=== PATIENT | female | born 1970 | race Caucasian/White ===

== ENCOUNTER 2018-01-22 06:08 | Emergency (ER) | payer MEDICAID ==
--- OUTSIDE RECORDS SUMMARY | 2018-01-22 06:10 | XMS REPORT | Clinical Summary ---
:1970 Author Organization [facility] Address [address] [place] [address] Care Team Providers Name Role Phone Matthew Guardado DO Primary Care Provider Allergies Active Allergy Reactions Severity Noted Date Comments Iodine 04/25/2016 Ketorolac 04/25/2016 Sulfa (Sulfonamide Antibiotics) 04/25/2016 Current Medications No known medications Active Problems Not on file Social History Tobacco Use Types Packs/Day Years Used Date Former Smoker Alcohol Use Drinks/Week oz/Week Comments No Sex Assigned at Date Recorded Not on file Last Filed Vital Signs Not on file Plan of Treatment Health Maintenance Due Date Last Done Comments CERVICAL CANCER SCREENING 1990 INFLUENZA VACCINE 04/08/2018 Results Not on fileafter 01/21/2017 Insurance Payer Benefit Plan / Group Subscriber ID Type Phone Address [facility] xxxxxxxxx O Home: [id number] [phone] [place] [phone]
--- OUTSIDE RECORDS SUMMARY | 2018-01-22 06:11 | XMS REPORT ---
:1970 [facility] Address [address] [place] [address] [address] [place] [address] Care Team Providers Name Role Phone UNKNOWN, REFFERING Primary Care Provider Unavailable JOE CARVALHO M.D. Unavailable Unavailable ISIS HORAN Unavailable Unavailable Problems This patient has no known problems. Allergies, Adverse Reactions, Alerts This patient has no known allergies or adverse reactions. Medications This patient has no known medications. Encounters Start End Encounter Admission Attending Care Care Encounter Date/Time Date/Time Type Type Clinicians Facility Department ID 2017-05-22 Inpatient [facility] [id number] 16:23:00 2017-12-23 2017-12-23 Emergency [facility] [id number] 15:29:00 15:29:00 ISIS 2017-07-30 2017-07-30 Outpatient [facility] [id number] 12:09:00 12:09:00 2017-07-09 2017-07-09 Outpatient [facility] [id number] 00:01:00 00:01:00 2017-06-17 2017-06-17 Outpatient [facility] [id number] 18:46:00 18:46:00 2017-06-08 2017-06-08 Outpatient [facility] [id number] 00:01:00 00:01:00 2017-06-06 2017-06-06 Outpatient [facility] [id number] 21:11:00 21:11:00 Results Test Description Test Time Test Comments Text Results Atomic Results Result Comments Lipase 2017-12-27 01:00:00 Test Item Value Reference Range Comments Lipase (test code=LIP) 28 U/L 13-60 Comprehensive Metabolic [id number] 01:00:00 Test Item Value Reference Range Comments Sodium (test code=NA) 141 mmol/L 135-145 Potassium (test code=K) 4.2 mmol/L 3.5-5.1 Chloride (test code=CL) 101 mmol/L 98-105 Carbon Dioxide (test 23 mmol/L 22-29 code=CO2) Glucose (test code=GLU) 113 mg/dL 70-115 Blood Urea Nitrogen 8 mg/dL 6-20 (test code=BUN) Creatinine (test 0.6 mg/dL 0.5-0.9 code=CREAT) Calcium (test code=CA) 9.3 mg/dL 8.3-10.5 Prot Total (test 7.2 g/dL 6.4-8.3 code=TP) Albumin (test code=ALB) 4.5 g/dL 3.5-5.2 A/G Ratio (test 1.7 Ratio code=AGRATIO) Globulin (test 2.7 2.9-3.1 code=GLOB) Bili Total (test 0.3 mg/dL 0.1-0.9 code=TBIL) Alk Phos (test 93 U/L 35-104 code=APHOS) AST (test code=AST) 42 U/L 1-32 ALT (test code=ALT) 77 U/L 1-33 BUN/Creatinine Ratio 13.3 (test code=BCRATIO) Anion Gap (test 17 mmol/L 7-16 code=AGAP) Estimated GFR (test >60 mL/min/1.73m2 eGFR (estimated Glomerular code=GFR) Filtration Rate) is an estimated value,calculated from the patient's serum creatinine using the MDRD equation.It is NOT the patient's actual GFR. The eGFR provides a more clinicallyuseful measure of kidney disease than serum creatinine alone.This calculation takes sex and race into account, if the informationis provided. If the race is not provided, and the patient isAfrican-Emirati, multiply by 1.212. If sex is not provided, and thepatient is female, multiply by 0.742. Results for patients <18 years ofage have not been validated by the MDRD study and should be interpretedwith caution.eGFR Result Interpretation:eGFR > or=60 is in the Normal RangeeGFR < 60 may mean kidney diseaseeGFR < 15 may mean kidney failureRanges recommended by the National Kidney Foundation,http://nkdep.nih .gov BHCG, Urine, [id number] 00:45:00 Test Item Value Reference Range Comments Preg Qual [Ur] (test code=HUHCG) Negative Negative CBC with [id number] 00:44:00 Test Item Value Reference Range Comments WBC (test code=WBC) 7.5 K/cumm 4.4-10.5 RBC (test code=RBC) 4.94 M/cumm 3.75-5.20 Hemoglobin (test code=HGB) 13.0 gm/dL 12.2-14.8 Hematocrit (test code=HCT) 39.3 % 36.5-44.4 MCV (test code=MCV) 79.5 fL 80-100 MCH (test code=MCH) 26.3 pg 27.0-32.5 MCHC (test code=MCHC) 33.0 g/dL 32.0-37.5 RDW (test code=RDW) 15.9 % 11.5-14.5 Platelet Count (test code=PLTCT) 319 K/cumm 140-440 MPV (test code=MPV) 7.4 fL Diff Method (test code=DIFFM) Auto Neutrophil (test code=NEUT) 54.4 % 36-70 Lymphocyte (test code=LYMPH) 34.7 % 12-44 Monocyte (test code=MONO) 5.2 % 0-11 Eosinophil (test code=EOS) 5.1 % 0-7 Basophil (test code=BASO) 0.7 % 0-2 Neutro Abs (test code=ANEUT) 4.1 K/cumm 1.6-7.4 Lymph Abs (test code=ALYMPH) 2.6 K/cumm 0.5-4.6 [place] Abs (test code=AMONO) 0.4 K/cumm 0.0-1.2 Eos Abs (test code=AEOS) 0.38 K/cumm 0.00-0.74 Baso Abs (test code=ABASO) 0.1 K/cumm 0.00-0.21 Urinalysis [id number] 00:32:00 Test Item Value Reference Range Comments Color (test code=COLOR) Yellow Yellow,Straw,Pl yellow Clarity (test code=CLAR) Sl Cloudy Clear Specific [place] (test code=SPGR) 1.016 1.001-1.035 pH (test code=PH) 8.0 5.0-9.0 Ketone (test code=KET) 5 mg/dL Negative Glucose (test code=GLUCUR) Negative mg/dL Negative Protein (test code=PROT) Negative mg/dL Negative Bilirubin (test code=BILI) Negative mg/dL Negative Occult Blood (test code=UDOB) Negative Negative Urobilinogen (test code=UROB) 0.2 mg/dL 0.2-1.0 Nitrite (test code=NIT) Positive Negative Leuk Esterase (test code=LEUK) Negative Negative Micros Exam (test code=MEXAM) Indicated Epithelial Cells (test code=EPI) 20-29 /LPF 0-30 WBC, Urine (test code=UWBC) 0-1 /HPF 0-5 RBC, Urine (test code=URBC) None Seen /HPF 0-5 Bacteria (test code=BACT) Many /HPF [id number] 17:42:00 Test Item Value Reference Range Comments Lipase (test code=LIP) 28 U/L 13-60 Comprehensive Metabolic [id number] 17:42:00 Test Item Value Reference Range Comments Sodium (test code=NA) 143 mmol/L 135-145 Potassium (test code=K) 3.7 mmol/L 3.5-5.1 Chloride (test code=CL) 103 mmol/L 98-105 Carbon Dioxide (test 27 mmol/L 22-29 code=CO2) Glucose (test code=GLU) 123 mg/dL 70-115 Blood Urea Nitrogen 10 mg/dL 6-20 (test code=BUN) Creatinine (test 0.6 mg/dL 0.5-0.9 code=CREAT) Calcium (test code=CA) 9.3 mg/dL 8.3-10.5 Prot Total (test 6.9 g/dL 6.4-8.3 code=TP) Albumin (test code=ALB) 4.3 g/dL 3.5-5.2 A/G Ratio (test 1.7 Ratio code=AGRATIO) Globulin (test 2.6 2.9-3.1 code=GLOB) Bili Total (test 0.3 mg/dL 0.1-0.9 code=TBIL) Alk Phos (test 84 U/L 35-104 code=APHOS) AST (test code=AST) 52 U/L 1-32 ALT (test code=ALT) 84 U/L 1-33 BUN/Creatinine Ratio 16.7 (test code=BCRATIO) Anion Gap (test 13 mmol/L 7-16 code=AGAP) Estimated GFR (test >60 mL/min/1.73m2 eGFR (estimated Glomerular code=GFR) Filtration Rate) is an estimated value,calculated from the patient's serum creatinine using the MDRD equation.It is NOT the patient's actual GFR. The eGFR provides a more clinicallyuseful measure of kidney disease than serum creatinine alone.This calculation takes sex and race into account, if the informationis provided. If the race is not provided, and the patient isAfrican-Emirati, multiply by 1.212. If sex is not provided, and thepatient is female, multiply by 0.742. Results for patients <18 years ofage have not been validated by the MDRD study and should be interpretedwith caution.eGFR Result Interpretation:eGFR > or=60 is in the Normal RangeeGFR < 60 may mean kidney diseaseeGFR < 15 may mean kidney failureRanges recommended by the National Kidney Foundation,http://nkdep.nih .gov CBC with [id number] 17:00:00 Test Item Value Reference Range Comments WBC (test code=WBC) 5.9 K/cumm 4.4-10.5 RBC (test code=RBC) 4.66 M/cumm 3.75-5.20 Hemoglobin (test code=HGB) 11.9 gm/dL 12.2-14.8 Hematocrit (test code=HCT) 36.6 % 36.5-44.4 MCV (test code=MCV) 78.5 fL 80-100 MCH (test code=MCH) 25.6 pg 27.0-32.5 MCHC (test code=MCHC) 32.6 g/dL 32.0-37.5 RDW (test code=RDW) 15.7 % 11.5-14.5 Platelet Count (test code=PLTCT) 329 K/cumm 140-440 MPV (test code=MPV) 7.3 fL Diff Method (test code=DIFFM) Auto Neutrophil (test code=NEUT) 55.7 % 36-70 Lymphocyte (test code=LYMPH) 33.5 % 12-44 Monocyte (test code=MONO) 4.7 % 0-11 Eosinophil (test code=EOS) 5.7 % 0-7 Basophil (test code=BASO) 0.4 % 0-2 Neutro Abs (test code=ANEUT) 3.3 K/cumm 1.6-7.4 Lymph Abs (test code=ALYMPH) 2.0 K/cumm 0.5-4.6 [place] Abs (test code=AMONO) 0.3 K/cumm 0.0-1.2 Eos Abs (test code=AEOS) 0.34 K/cumm 0.00-0.74 Baso Abs (test code=ABASO) 0.0 K/cumm 0.00-0.21 48239& PELVIS W/O [id number] 16:47:19CT OF THE ABDOMEN AND PELVIS WITHOUT CONTRASTLocation code: R 16CLINICAL HISTORY: Abdominal painCOMPARISON: None available.TECHNIQUE:5 mm contiguous axial images were obtained from the diaphragmatic domethrough the symphysis pubis. No contrast was administered per routinerenal stone protocol. Axial images were reformatted to create coronalreconstructions.One or more of the following dose reduction techniqueswere used: Automated exposure control, adjustment of the mA and/or kVaccording to patient size, and/or utilization of iterativereconstruction technique. DLP: 1611 mGy-cmFINDINGS: ABDOMEN The visualized structures of the lower thorax are unremarkable.There is fatty infiltration of the liver. No discrete mass lesions areidentified on noncontrast imaging. Unopacified spleen, pancreas, andkidneys are within normal limits. There is no hydronephrosis orhydroureter or urolithiasis. There is a small nodule in the rightadrenal gland measuring 13 mm demonstrating low-attenuation favored torepresent adenoma. There is also minimal nodularity of the left adrenalgland. There is surgical absence of the gallbladder.Postoperative changes from gastric bypass are identified. There is noobstruction. Anastomoses are within normal limits. Minimal fatinfiltration is noted adjacent to the proximal jejunal loopwhich mayrelate to postsurgical changes.Remaining small and large bowel loops are normal in caliber.Normalcaliber appendix is identified in the right lower quadrant.No mesenteric or retroperitoneal lymphadenopathy is identified. No freeintraperitoneal air or fluid is seen.FINDINGS: PELVIS Urinary bladder is mildly distended. There is no bladder wallthickening. There is surgical absence of the uterus. No discrete masslesions are identified in the adnexa. There is no pelvic or inguinaladenopathy. Spondylosis is noted in the lower lumbar spine. No discreteosteolytic or osteosclerotic lesions are seen.IMPRESSION:1. Fatty infiltration of the liver. Please correlate with hepaticprofile.2. Postsurgicalchanges from gastric bypass.3. Nodules within the adrenal glands favored to represent smalladenomas.4. Surgical absence of the gallbladder and uterus.POC Glucose, [id number] 07:45:00 Test Item Value Reference Range Comments POC Glucose (test 158 mg/dL 70-115 Notify RN or MDIf you consider code=POCGLUC) your patient critically ill, the [place] Accu-Chek InformII metershould not be used for Glucose determinations.Draw a venous Glucose and send to the Main Lab for Analysis. POC Glucose, [id number] 20:31:00 Test Item Value Reference Range Comments POC Glucose (test 167 mg/dL 70-115 If you consider your patient code=POCGLUC) critically ill, the [place] Accu-Chek InformII metershould not be used for Glucose determinations.Draw a venous Glucose and send to the Main Lab for Analysis. POC Glucose, [id number] 16:44:00 Test Item Value Reference Range Comments POC Glucose (test 148 mg/dL 70-115 If you consider your patient code=POCGLUC) critically ill, the [place] Accu-Chek InformII metershould not be used for Glucose determinations.Draw a venous Glucose and send to the Main Lab for Analysis. POC Glucose, [id number] 11:25:00 Test Item Value Reference Range Comments POC Glucose (test 173 mg/dL 70-115 If you consider your patient code=POCGLUC) critically ill, the [place] Accu-Chek InformII metershould not be used for Glucose determinations.Draw a venous Glucose and send to the Main Lab for Analysis. POC Glucose, [id number] 07:30:00 Test Item Value Reference Range Comments POC Glucose (test 191 mg/dL 70-115 If you consider your patient code=POCGLUC) critically ill, the [place] Accu-Chek InformII metershould not be used for Glucose determinations.Draw a venous Glucose and send to the Main Lab for Analysis. POC Glucose, [id number] 06:33:00 Test Item Value Reference Range Comments POC Glucose (test 181 mg/dL 70-115 If you consider your patient code=POCGLUC) critically ill, the [place] Accu-Chek InformII metershould not be used for Glucose determinations.Draw a venous Glucose and send to the Main Lab for Analysis. Comprehensive Metabolic [id number] 05:28:00 Test Item Value Reference Range Comments Sodium (test code=NA) 139 mmol/L 135-145 Potassium (test code=K) 4.4 mmol/L 3.5-5.1 Chloride (test code=CL) 101 mmol/L 98-105 Carbon Dioxide (test 28 mmol/L 22-29 code=CO2) Glucose (test code=GLU) 195 mg/dL 70-115 Blood Urea Nitrogen 3 mg/dL 6-20 (test code=BUN) Creatinine (test 0.6 mg/dL 0.5-0.9 code=CREAT) Calcium (test code=CA) 8.8 mg/dL 8.3-10.5 Prot Total (test 6.2 g/dL 6.4-8.3 code=TP) Albumin (test code=ALB) 3.6 g/dL 3.5-5.2 A/G Ratio (test 1.4 Ratio code=AGRATIO) Globulin (test 2.6 2.9-3.1 code=GLOB) Bili Total (test 0.3 mg/dL 0.1-0.9 code=TBIL) Alk Phos (test 119 U/L 35-104 code=APHOS) AST (test code=AST) 39 U/L 1-32 ALT (test code=ALT) 86 U/L 1-33 BUN/Creatinine Ratio 5.0 (test code=BCRATIO) Anion Gap (test 10 mmol/L 7-16 code=AGAP) Estimated GFR (test >60 mL/min/1.73m2 eGFR (estimated Glomerular code=GFR) Filtration Rate) is an estimated value,calculated from the patient's serum creatinine using the MDRD equation.It is NOT the patient's actual GFR. The eGFR provides a more clinicallyuseful measure of kidney disease than serum creatinine alone.This calculation takes sex and race into account, if the informationis provided. If the race is not provided, and the patient isAfrican-Emir[place], multiply by 1.212. If sex is not provided, and thepatient is female, multiply by 0.742. Results for patients <18 years ofage have not been validated by the MDRD study and should be interpretedwith caution.eGFR Result Interpretation:eGFR > or=60 is in the Normal RangeeGFR < 60 may mean kidney diseaseeGFR < 15 may mean kidney failureRanges recommended by the National Kidney Foundation,http://nkdep.nih .gov CBC with [id number] 05:03:00 Test Item Value Reference Range Comments WBC (test code=WBC) 5.1 K/cumm 4.4-10.5 RBC (test code=RBC) 4.17 M/cumm 3.75-5.20 Hemoglobin (test code=HGB) 11.2 gm/dL 12.2-14.8 Hematocrit (test code=HCT) 32.8 % 36.5-44.4 MCV (test code=MCV) 78.8 fL 80-100 MCH (test code=MCH) 26.8 pg 27.0-32.5 MCHC (test code=MCHC) 34.0 g/dL 32.0-37.5 RDW (test code=RDW) 14.4 % 11.5-14.5 Platelet Count (test code=PLTCT) 267 K/cumm 140-440 MPV (test code=MPV) 6.8 fL Diff Method (test code=DIFFM) Auto Neutrophil (test code=NEUT) 58.2 % 36-70 Lymphocyte (test code=LYMPH) 31.0 % 12-44 Monocyte (test code=MONO) 5.5 % 0-11 Eosinophil (test code=EOS) 4.6 % 0-7 Basophil (test code=BASO) 0.7 % 0-2 Neutro Abs (test code=ANEUT) 2.9 K/cumm 1.6-7.4 Lymph Abs (test code=ALYMPH) 1.6 K/cumm 0.5-4.6 [place] Abs (test code=AMONO) 0.3 K/cumm 0.0-1.2 Eos Abs (test code=AEOS) 0.23 K/cumm 0.00-0.74 Baso Abs (test code=ABASO) 0.0 K/cumm 0.00-0.21 POC Glucose, [id number] 21:57:00 Test Item Value Reference Range Comments POC Glucose (test 176 mg/dL 70-115 If you consider your patient code=POCGLUC) critically ill, the [place] Accu-Chek InformII metershould not be used for Glucose determinations.Draw a venous Glucose and send to the Main Lab for Analysis. POC Glucose, [id number] 16:25:00 Test Item Value Reference Range Comments POC Glucose (test 148 mg/dL 70-115 If you consider your patient code=POCGLUC) critically ill, the [place] Accu-Chek InformII metershould not be used for Glucose determinations.Draw a venous Glucose and send to the Main Lab for Analysis. CT NECK SOFT TISSUE WO [id number] 15:49:06Exam: CT soft tissue neck withoutcontrast.Location: O9Fsaeaqi: Neck painTechnique: Unenhanced spiral slices were taken through the neck.Sagittal and coronal reformations were performed. One or more ofthefollowing radiation dose reduction techniques was used: Automaticexposure control, adjustment of mA and/or KV according to the patient'ssize, and/or utilization of iterative reconstruction technique. Findings:The parotid space, carotid space, seasonal customer service associate space, prevertebral spaceand the fossa of Rosenm?ller are normal. The oral and hypopharynx areunremarkable.The salivary glands are normal. No sialadenitis or sialolithiasis isseen.The larynx and trachea are normal. The cervical and visualized thoracicesophagus is unremarkable. No lymphadenopathy is present in eitherjugular or either posterior chain.The thyroid gland is normal. The soft tissues are unremarkable.Impression:Unremarkable exam.CT CHEST W/O [id number] 15:45:29Exam: CT thorax withoutcontrast.Location: [id number]: Chest painTechnique: Unenhancedspiral slices were taken from the apices of thelungs to the upper abdomen. Sagittal and coronal reformations wereperformed. 100 cc of Isovue-300 were used. One or more of the followingradiation dose reduction techniques was used: Automatic exposurecontrol, adjustment of mA and/or KV according to the patient's size,and/or utilization of iterative reconstruction technique. Findings:Consolidation is present in the leftlower lobe. Some subsegmentalatelectasis is present in the lingula. The remainder of the lungs isclear. The pulmonary vasculature is normal. No pulmonary congestion orarterial hypertension is seen.The mediastinum and the pulmonary mike are normal. No lymphadenopathy ispresent. The heart size is normal. No pericardial effusion is seen.The visualized upper abdominal organs are unremarkable. The patient isundergone a previous left main procedure.No incidental thyroid nodules are notedImpression: Left lower lobe pneumonia.POC Glucose, [id number] 11:54:00 Test Item Value Reference Range Comments POC Glucose (test 200 mg/dL 70-115 If you consider your patient code=POCGLUC) critically ill, the [place] Accu-Chek InformII metershould not be used for Glucose determinations.Draw a venous Glucose and send to the Main Lab for Analysis. POC Glucose, [id number] 07:17:00 Test Item Value Reference Range Comments POC Glucose (test 180 mg/dL 70-115 If you consider your patient code=POCGLUC) critically ill, the [place] Accu-Chek InformII metershould not be used for Glucose determinations.Draw a venous Glucose and send to the Main Lab for Analysis. Comprehensive Metabolic [id number] 06:33:00 Test Item Value Reference Range Comments Sodium (test code=NA) 138 mmol/L 135-145 Potassium (test code=K) 4.2 mmol/L 3.5-5.1 Chloride (test code=CL) 100 mmol/L 98-105 Carbon Dioxide (test 26 mmol/L 22-29 code=CO2) Glucose (test code=GLU) 179 mg/dL 70-115 Blood Urea Nitrogen 4 mg/dL 6-20 (test code=BUN) Creatinine (test 0.6 mg/dL 0.5-0.9 code=CREAT) Calcium (test code=CA) 9.3 mg/dL 8.3-10.5 Prot Total (test 6.4 g/dL 6.4-8.3 code=TP) Albumin (test code=ALB) 3.8 g/dL 3.5-5.2 A/G Ratio (test 1.5 Ratio code=AGRATIO) Globulin (test 2.6 2.9-3.1 code=GLOB) Bili Total (test 0.3 mg/dL 0.1-0.9 code=TBIL) Alk Phos (test 125 U/L 35-104 code=APHOS) AST (test code=AST) 63 U/L 1-32 ALT (test code=ALT) 92 U/L 1-33 BUN/Creatinine Ratio 6.7 (test code=BCRATIO) Anion Gap (test 12 mmol/L 7-16 code=AGAP) Estimated GFR (test >60 mL/min/1.73m2 eGFR (estimated Glomerular code=GFR) Filtration Rate) is an estimated value,calculated from the patient's serum creatinine using the MDRD equation.It is NOT the patient's actual GFR. The eGFR provides a more clinicallyuseful measure of kidney disease than serum creatinine alone.This calculation takes sex and race into account, if the informationis provided. If the race is not provided, and the patient isAfrican-Emir[place], multiply by 1.212. If sex is not provided, and thepatient is female, multiply by 0.742. Results for patients <18 years ofage have not been validated by the MDRD study and should be interpretedwith caution.eGFR Result Interpretation:eGFR > or=60 is in the Normal RangeeGFR < 60 may mean kidney diseaseeGFR < 15 may mean kidney failureRanges recommended by the National Kidney Foundation,http://nkdep.nih .gov CBC with [id number] 06:13:00 Test Item Value Reference Range Comments WBC (test code=WBC) 5.5 K/cumm 4.4-10.5 RBC (test code=RBC) 4.51 M/cumm 3.75-5.20 Hemoglobin (test code=HGB) 11.9 gm/dL 12.2-14.8 Hematocrit (test code=HCT) 35.8 % 36.5-44.4 MCV (test code=MCV) 79.4 fL 80-100 MCH (test code=MCH) 26.4 pg 27.0-32.5 MCHC (test code=MCHC) 33.2 g/dL 32.0-37.5 RDW (test code=RDW) 14.6 % 11.5-14.5 Platelet Count (test code=PLTCT) 257 K/cumm 140-440 MPV (test code=MPV) 6.7 fL Diff Method (test code=DIFFM) Auto Neutrophil (test code=NEUT) 59.4 % 36-70 Lymphocyte (test code=LYMPH) 28.3 % 12-44 Monocyte (test code=MONO) 6.2 % 0-11 Eosinophil (test code=EOS) 5.6 % 0-7 Basophil (test code=BASO) 0.4 % 0-2 Neutro Abs (test code=ANEUT) 3.3 K/cumm 1.6-7.4 Lymph Abs (test code=ALYMPH) 1.6 K/cumm 0.5-4.6 [place] Abs (test code=AMONO) 0.4 K/cumm 0.0-1.2 Eos Abs (test code=AEOS) 0.31 K/cumm 0.00-0.74 Baso Abs (test code=ABASO) 0.0 K/cumm 0.00-0.21 POC Glucose, [id number] 23:37:00 Test Item Value Reference Range Comments POC Glucose (test 152 mg/dL 70-115 If you consider your patient code=POCGLUC) critically ill, the [place] Accu-Chek InformII metershould not be used for Glucose determinations.Draw a venous Glucose and send to the Main Lab for Analysis. POC Glucose, [id number] 17:16:00 Test Item Value Reference Range Comments POC Glucose (test 170 mg/dL 70-115 If you consider your patient code=POCGLUC) critically ill, the [place] Accu-Chek InformII metershould not be used for Glucose determinations.Draw a venous Glucose and send to the Main Lab for Analysis. D-Dimer, [id number] 15:56:00 Test Item Value Reference Range Comments D-Dimer, Quant (test code=DDQNT) 1610 ng/mL 0-500 45844&PERFUS [id number] 14:47:54Dictation location: R 16Clinical indication: Shortness of breath, left shoulder painFindings: Afterthe administration of 10 mCi of Xe-133 inhalation gas, posteriorventilation images were obtained which show good ventilation to bothlungs with normal washout.Following ventilation 3mCi of technetium 99MAA was injectedintravenously and multiple spot static perfusion images were obtained.There is good perfusion to both lungs without evidence of segmental orsubsegmental mismatched defects. The above findings have a lowprobability of pulmonary emboli.IMPRESSION:Low probability of pulmonary emboli.US DUPLX EXT VEINS COMPRS, [id number] 12:42:18DICTATION LOCATION: [id number]: DVTCOMPARISON: None available.TECHNIQUE: Duplex sonography of theright lower extremity with color andspectral Doppler, with and without compression. FINDINGS:There is normal compressibility and augmentation of the right commonfemoral, superficial femoral and popliteal veins. Color doppler flowwas visualized in the right anterior and posterior tibial veins. No calfvein thrombosis is detected.Doppler examination shows normal spontaneous and phasic flow.There is a2.5 x 0.8 x 1.8 cm complex fluid collection in the rightpopliteal fossa.IMPRESSION: No evidence of deep venous thrombosis in the visualized venous segmentsof the right lower extremity.Small right Gaspar's cyst.XR CHEST 2V, [id number] 11:43:22EXAM: Chest x-ray, 2 viewsLOCATION: [id number]: Chest radiograph 12/04/2017 and 11/26/2017INDICATION: chest painDISCUSSION:PA and lateral chest radiographs were submitted for interpretation.Tubing courses over the left upper abdomen.Mild left basilar opacity may be due to atelectasis. The left costophrenic angle is blunted.The lungs are otherwise grossly clear.No pneumothorax is seen. The cardiac silhouette is mildly enlarged. No acute osseous abnormalities are identified. IMPRESSION:1. Mild left basilar opacity may be due to atelectasis. Questionablesmall left pleural effusion.2. Mildly enlarged cardiac silhouette.3. Otherwise, no acute cardiopulmonary abnormalities.POC Glucose, [id number] 07:08:00 Test Item Value Reference Range Comments POC Glucose (test 201 mg/dL 70-115 Notify RN or MDIf you consider code=POCGLUC) your patient critically ill, the [place] Accu-Chek InformII metershould not be used for Glucose determinations.Draw a venous Glucose and send to the Main Lab for Analysis. POC Glucose, [id number] 00:19:00 Test Item Value Reference Range Comments POC Glucose (test 173 mg/dL 70-115 Notify RN or MDIf you consider code=POCGLUC) your patient critically ill, the [facility] Accu-Chek InformII metershould not be used for Glucose determinations.Draw a venous Glucose and send to the Main Lab for Analysis. POC Glucose, [id number] 21:49:00 Test Item Value Reference Range Comments POC Glucose (test 189 mg/dL 70-115 If you consider your patient code=POCGLUC) critically ill, the [facility] Accu-Chek InformII metershould not be used for Glucose determinations.Draw a venous Glucose and send to the Main Lab for Analysis. POC Glucose, [id number] 17:09:00 Test Item Value Reference Range Comments POC Glucose (test 193 mg/dL 70-115 Notify RN or MDIf you consider code=POCGLUC) your patient critically ill, the [facility] Accu-Chek InformII metershould not be used for Glucose determinations.Draw a venous Glucose and send to the Main Lab for Analysis. POC Glucose, [id number] 12:20:00 Test Item Value Reference Range Comments POC Glucose (test 166 mg/dL 70-115 If you consider your patient code=POCGLUC) critically ill, the [facility] Accu-Chek InformII metershould not be used for Glucose determinations.Draw a venous Glucose and send to the Main Lab for Analysis. POC Glucose, [id number] 09:03:00 Test Item Value Reference Range Comments POC Glucose (test 212 mg/dL 70-115 If you consider your patient code=POCGLUC) critically ill, the [facility] Accu-Chek InformII metershould not be used for Glucose determinations.Draw a venous Glucose and send to the Main Lab for Analysis. Comprehensive Metabolic [id number] 05:54:00 Test Item Value Reference Range Comments Sodium (test code=NA) 138 mmol/L 135-145 Potassium (test code=K) 4.4 mmol/L 3.5-5.1 Hemolyzed Chloride (test code=CL) 98 mmol/L 98-105 Carbon Dioxide (test 25 mmol/L 22-29 code=CO2) Glucose (test code=GLU) 217 mg/dL 70-115 Blood Urea Nitrogen 4 mg/dL 6-20 (test code=BUN) Creatinine (test 0.6 mg/dL 0.5-0.9 code=CREAT) Calcium (test code=CA) 8.6 mg/dL 8.3-10.5 Prot Total (test 6.8 g/dL 6.4-8.3 code=TP) Albumin (test code=ALB) 3.8 g/dL 3.5-5.2 A/G Ratio (test 1.3 Ratio code=AGRATIO) Globulin (test 3.0 2.9-3.1 code=GLOB) Bili Total (test 0.4 mg/dL 0.1-0.9 code=TBIL) Alk Phos (test 81 U/L 35-104 code=APHOS) AST (test code=AST) 51 U/L 1-32 ALT (test code=ALT) 74 U/L 1-33 BUN/Creatinine Ratio 6.7 (test code=BCRATIO) Anion Gap (test 15 mmol/L 7-16 code=AGAP) Estimated GFR (test >60 mL/min/1.73m2 eGFR (estimated Glomerular code=GFR) Filtration Rate) is an estimated value,calculated from the patient's serum creatinine using the MDRD equation.It is NOT the patient's actual GFR. The eGFR provides a more clinicallyuseful measure of kidney disease than serum creatinine alone.This calculation takes sex and race into account, if the informationis provided. If the race is not provided, and the patient isAfrican-Emir[place], multiply by 1.212. If sex is not provided, and thepatient is female, multiply by 0.742. Results for patients <18 years ofage have not been validated by the MDRD study and should be interpretedwith caution.eGFR Result Interpretation:eGFR > or=60 is in the Normal RangeeGFR < 60 may mean kidney diseaseeGFR < 15 may mean kidney failureRanges recommended by the National Kidney Foundation,http://nkdep.nih .gov CBC with [id number] 05:40:00 Test Item Value Reference Range Comments WBC (test code=WBC) 11.3 K/cumm 4.4-10.5 RBC (test code=RBC) 4.39 M/cumm 3.75-5.20 Hemoglobin (test code=HGB) 11.9 gm/dL 12.2-14.8 Hematocrit (test code=HCT) 35.9 % 36.5-44.4 MCV (test code=MCV) 81.8 fL 80-100 MCH (test code=MCH) 27.0 pg 27.0-32.5 MCHC (test code=MCHC) 33.0 g/dL 32.0-37.5 RDW (test code=RDW) 14.6 % 11.5-14.5 Platelet Count (test code=PLTCT) 256 K/cumm 140-440 MPV (test code=MPV) 9.5 fL Diff Method (test code=DIFFM) Auto Neutrophil (test code=NEUT) 75.9 % 36-70 Lymphocyte (test code=LYMPH) 15.3 % 12-44 Monocyte (test code=MONO) 8.1 % 0-11 Eosinophil (test code=EOS) 0.4 % 0-7 Basophil (test code=BASO) 0.2 % 0-2 Neutro Abs (test code=ANEUT) 8.6 K/cumm 1.6-7.4 Lymph Abs (test code=ALYMPH) 1.7 K/cumm 0.5-4.6 [place] Abs (test code=AMONO) 0.9 K/cumm 0.0-1.2 Eos Abs (test code=AEOS) 0.04 K/cumm 0.00-0.74 Baso Abs (test code=ABASO) 0.0 K/cumm 0.00-0.21 POC Glucose, [id number] 05:04:00 Test Item Value Reference Range Comments POC Glucose (test 202 mg/dL 70-115 If you consider your patient code=POCGLUC) critically ill, the [facility] Accu-Chek InformII metershould not be used for Glucose determinations.Draw a venous Glucose and send to the Main Lab for Analysis. XR CHEST 1 [id number] 03:04:28AFTER HOURS SERVICE ON: 12/04/2017 3:04 AMAP Portable ChestLocation Code [id number]: Status Post Lap Gastric BypassFINDINGS: There are no infiltrates. There are no pleural effusions. There is nopneumothorax. Cardiac silhouette and mediastinum appear within normallimits. Surgical drain is noted projecting over the mid abdomen and leftupper quadrant.IMPRESSION: No active intrathoracic findings.POC Glucose, [id number] 02:06:00 Test Item Value Reference Range Comments POC Glucose (test 213 mg/dL 70-115 If you consider your patient code=POCGLUC) critically ill, the [facility] Accu-Chek InformII metershould not be used for Glucose determinations.Draw a venous Glucose and send to the Main Lab for Analysis. POC Glucose, [id number] 21:15:00 Test Item Value Reference Range Comments POC Glucose (test 236 mg/dL 70-115 If you consider your patient code=POCGLUC) critically ill, the [facility] Accu-Chek InformII metershould not be used for Glucose determinations.Draw a venous Glucose and send to the Main Lab for Analysis. POC Glucose, [id number] 16:03:00 Test Item Value Reference Range Comments POC Glucose (test 235 mg/dL 70-115 If you consider your patient code=POCGLUC) critically ill, the [facility] Accu-Chek InformII metershould not be used for Glucose determinations.Draw a venous Glucose and send to the Main Lab for Analysis. POC Glucose, [id number] 11:24:00 Test Item Value Reference Range Comments POC Glucose (test 269 mg/dL 70-115 If you consider your patient code=POCGLUC) critically ill, the [facility] Accu-Chek InformII metershould not be used for Glucose determinations.Draw a venous Glucose and send to the Main Lab for Analysis. XR CHEST 2 [id number] 18:35:18CLINICAL INFORMATION: Preprocedural evaluation. Checkup..Dictation Location: R 16Comparison: No prior.Findings: The heart size and pulmonary vessels are unremarkable.No active consolidation, effusion, or soft tissue mass is identified.Mild vertebral spurring.IMPRESSION: No active disease of the heart or lungs identified.Basic Metabolic [id number] 18:23:00 Test Item Value Reference Range Comments Sodium (test code=NA) 137 mmol/L 135-145 Potassium (test code=K) 4.2 mmol/L 3.5-5.1 Chloride (test code=CL) 95 mmol/L 98-105 Carbon Dioxide (test 27 mmol/L 22-29 code=CO2) Glucose (test code=GLU) 200 mg/dL 70-115 Blood Urea Nitrogen 17 mg/dL 6-20 (test code=BUN) Creatinine (test 0.7 mg/dL 0.5-0.9 code=CREAT) Calcium (test code=CA) 9.9 mg/dL 8.3-10.5 BUN/Creatinine Ratio 24.3 (test code=BCRATIO) Anion Gap (test 15 mmol/L 7-16 code=AGAP) Estimated GFR (test >60 mL/min/1.73m2 eGFR (estimated Glomerular code=GFR) Filtration Rate) is an estimated value,calculated from the patient's serum creatinine using the MDRD equation.It is NOT the patient's actual GFR. The eGFR provides a more clinicallyuseful measure of kidney disease than serum creatinine alone.This calculation takes sex and race into account, if the informationis provided. If the race is not provided, and the patient isAfrican-Emir[place], multiply by 1.212. If sex is not provided, and thepatient is female, multiply by 0.742. Results for patients <18 years ofage have not been validated by the MDRD study and should be interpretedwith caution.eGFR Result Interpretation:eGFR > or=60 is in the Normal RangeeGFR < 60 may mean kidney diseaseeGFR < 15 may mean kidney failureRanges recommended by the National Kidney Foundation,http://nkdep.nih .gov CBC with [id number] 18:08:00 Test Item Value Reference Range Comments WBC (test code=WBC) 6.9 K/cumm 4.4-10.5 RBC (test code=RBC) 5.14 M/cumm 3.75-5.20 Hemoglobin (test code=HGB) 13.1 gm/dL 12.2-14.8 Hematocrit (test code=HCT) 41.1 % 36.5-44.4 MCV (test code=MCV) 79.9 fL 80-100 MCH (test code=MCH) 25.5 pg 27.0-32.5 MCHC (test code=MCHC) 31.9 g/dL 32.0-37.5 RDW (test code=RDW) 14.5 % 11.5-14.5 Platelet Count (test code=PLTCT) 337 K/cumm 140-440 MPV (test code=MPV) 9.4 fL Diff Method (test code=DIFFM) Auto Neutrophil (test code=NEUT) 64.7 % 36-70 Lymphocyte (test code=LYMPH) 28.6 % 12-44 Monocyte (test code=MONO) 4.5 % 0-11 Eosinophil (test code=EOS) 2.0 % 0-7 Basophil (test code=BASO) 0.3 % 0-2 Neutro Abs (test code=ANEUT) 4.5 K/cumm 1.6-7.4 Lymph Abs (test code=ALYMPH) 2.0 K/cumm 0.5-4.6 [place] Abs (test code=AMONO) 0.3 K/cumm 0.0-1.2 Eos Abs (test code=AEOS) 0.14 K/cumm 0.00-0.74 Baso Abs (test code=ABASO) 0.0 K/cumm 0.00-0.21 US DUPLX EXT VEIN COMPRS, [id number] 13:22:06DICTATION LOCATION: [id number]: I82.409: ACUTE EMBOLISM AND THOMBOS UNSP DEEP VN UNSP LOWEREXTREMITYCOMPARISON: None available.TECHNIQUE: Duplex sonography of the right lower extremity with color andspectral Doppler, with and without compression. FINDINGS:There is normal compressibility and augmentation of the right commonfemoral, superficial femoral and popliteal veins. Color doppler flowwas visualized in the right anterior and posterior tibial veins. No calfvein thrombosis is detected.Doppler examination shows normal spontaneous and phasic flow.2.8 x 1.6 x 3.7 cm fluid collection at the posterior knee.IMPRESSION: No evidence of deep venous thrombosis in the visualized venous segmentsof theright lower extremity.A 3.7 cm Gaspar's cyst.
[2018-01-22] MEDS ORDERED: NA CHLORIDE 0.9% 1,000 ML ONE (07:06)
[2018-01-22] MEDS ORDERED: ONDANSETRON 4 MG/2 ML VIAL ONE (07:06)
[2018-01-22] MEDS ORDERED: FAMOTIDINE 20 MG TAB ONE (07:19)
[2018-01-22 07:40] LABS: Bicarbonate 27 mEq/L (21-31); Glucose Level 119 mg/dL (65-120); Lipase 19 U/L (22-51); Potassium 3.2 mEq/L (3.6-5.0); Sodium Level 140 mEq/L (135-145)
[2018-01-22 07:46] LABS: ALT/SGPT 72 IU/L (10-60); AST/SGOT 40 IU/L (10-42); Albumin 4.4 g/dL (3.2-5.5); Alkaline Phosphatase 70 IU/L (42-121); BUN Blood Urea Nitrogen 8 mg/dL (6-20); Bilirubin Direct 0.1 mg/dL (0-0.2); Bilirubin Total 0.5 mg/dL (0.3-1.2); Protein, Total 7.9 g/dL (6.0-8.3)
[2018-01-22 07:54] LABS: Absolute Lymphocytes (CBC) 2.2 K/uL (0.7-4.9); Absolute Monocytes 0.5 K/uL (0.1-1.3); Basophils % 0.9 % (0-1.3); Eosinophils % 2.9 % (0-4.4); Hematocrit 39.8 % (36.0-45.0); Lymphocytes % 37.4 % (15.3-44.8); MCH 25.8 pg (27.0-35.0); MCV 80.4 fL (80-100); MPV 9.2 fL (7.6-11.3); Monocytes % 7.9 % (3.3-12.3); RBC Red Blood Cell Count 4.96 M/uL (3.86-4.86)
[2018-01-22] MEDS ORDERED: POTASSIUM 25 MEQ EFFERV TAB ONE (08:02)
[2018-01-22 08:53] LABS: Urine Blood NEGATIVE (NEG); Urine Glucose NEGATIVE (NEG); Urine Protein NEGATIVE (NEG); Urine Specific Gravity <1.005 (1.005-1.030); Urine pH 5.5 (5.0-7.0)
[2018-01-22 08:55] LABS: Urine Bacteria 20-50 /HPF (<20); Urine RBC <5 /HPF (NONE SEEN)
[2018-01-22 08:56] LABS: Urine Culture Reflex Order NOT NEEDED
[2018-01-22 09:59] LABS: Urine Blood NEGATIVE (NEG); Urine Glucose NEGATIVE (NEG); Urine Protein NEGATIVE (NEG); Urine Specific Gravity 1.015 (1.005-1.030); Urine pH 5.5 (5.0-7.0)
[2018-01-22 10:10] LABS: Urine Bacteria <20 /HPF (<20); Urine Culture Reflex Order NOT NEEDED; Urine RBC <5 /HPF (NONE SEEN)
--- NOTE | 2018-01-22 10:15 | ER ---
Nurse's Notes [facility] Name: Kat Aguilar Age: 47 yrs Sex: Female : 1970 Arrival Date: 01/22/2018 Time: 06:09 Bed 13 Private MD: Diagnosis: Diarrhea, unspecified;Nausea and vomiting Presentation: 01/22 06:30 Presenting complaint: Patient states: Pt states she started having flu like symptoms ea with nausea vomiting and diarrhea since last night. Pt reports this AM she started having lower back pain and tingling in the hands. Pt states "I feel like I am dehydrated". Transition of care: patient was not received from another setting of care. Onset of symptoms was January 22, 2018. Initial Sepsis Screen: Does the patient meet any 2 criteria? No. Patient's initial sepsis screen is negative. Does the patient have a suspected source of infection? No. Patient's initial sepsis screen is negative. Care prior to arrival: None. 06:30 Method Of Arrival: Ambulatory ea 06:30 Acuity: JADYN 3 ea Triage Assessment: 06:35 General: Appears uncomfortable, Behavior is calm, cooperative, appropriate for age. ea Pain: Complains of pain in left low back, left mid back, right mid back and right low back Quality of pain is described as aching, Pain began 1 day ago. EENT: No signs and/or symptoms were reported regarding the EENT system. Neuro: Level of Consciousness is awake, alert, obeys commands, Oriented to person, place, time, situation, Appropriate for age. GI: Abdomen is non-distended, obese, Reports diarrhea, nausea, vomiting. PEARL PELLER: 06:35 LMP N/A - Hysterectomy ea Historical: - Allergies: 06:43 IV contrast; ea 06:43 Latex, Natural Rubber; ea 06:43 Sulfa (Sulfonamide Antibiotics); ea 06:43 Toradol; ea - Home Meds: 06:43 metformin 1,000 mg Oral tab 1 tab 1 time a day [Active]; estradiol 1 mg oral tab ea [Active]; Protonix 40 mg oral TbEC 1 tab once daily [Active]; diltiazem HCl 240 mg Oral cpER 1 cap once daily [Active]; levothyroxine 25 mcg tab 1 tab once daily [Active]; - PMHx: 06:43 Back pain; Bipolar disorder; chronic constipation; High Cholesterol; Diabetes - NIDDM; ea Hypothyroidism; PERIPHERAL NEUROPATHY; Migraines; Sleep Apnea; Hypertension; - PSHx: 07:00 Gastric Bypass; hj - Immunization history:: Adult Immunizations up to date. - Social history:: Smoking status: Patient/guardian denies using tobacco. Screenin:38 Abuse screen: Denies threats or abuse. Nutritional screening: No deficits noted. jd3 Tuberculosis screening: No symptoms or risk factors identified. Fall Risk None identified. Assessment: 06:30 General: Appears in no apparent distress. uncomfortable, Behavior is calm, cooperative, jd3 appropriate for age. Pain: Complains of pain in back and abdomen Quality of pain is described as aching, sharp, Also complains of nausea. Neuro: Level of Consciousness is awake, alert, obeys commands, Oriented to person, place, time, situation. Cardiovascular: Heart tones S1 S2 present Capillary refill < 3 seconds Patient's skin is warm and dry. Respiratory: Airway is patent Respiratory effort is even, unlabored, Respiratory pattern is regular, symmetrical, Breath sounds are clear bilaterally. GI: Abdomen is round obese, Bowel sounds present X 4 quads. Abd is soft X 4 quads Abdomen is tender to palpation in right upper quadrant and left upper quadrant Reports nausea, vomiting. : No signs and/or symptoms were reported regarding the genitourinary system. EENT: No signs and/or symptoms were reported regarding the EENT system. Derm: Skin is intact, Skin is dry, Skin is normal, Skin temperature is warm. Musculoskeletal: Circulation, motion, and sensation intact. Range of motion: intact in all extremities. 07:00 General: Appears in no apparent distress. uncomfortable, obese, Behavior is calm, hj cooperative, appropriate for age. Pain: Complains of pain in right low back and right mid back and left mid back and left low back and left upper quadrant and right upper quadrant and abdomen. Neuro: Level of Consciousness is awake, alert, obeys commands, Oriented to person, place, time, situation, Appropriate for age. Cardiovascular: Heart tones S1 S2 present Capillary refill < 3 seconds Patient's skin is warm and dry. Respiratory: Airway is patent Respiratory effort is even, unlabored, Respiratory pattern is regular, symmetrical, Breath sounds are clear. GI: Abdomen is round obese, Bowel sounds present X 4 quads. Abd is soft Abdomen is tender to palpation Reports Patient currently denies. : No signs and/or symptoms were reported regarding the genitourinary system. EENT: No signs and/or symptoms were reported regarding the EENT system. Derm: Skin is intact, Skin is dry, Skin is pink, warm \\T\\ dry. Skin temperature is warm. Musculoskeletal: Circulation, motion, and sensation intact. Range of motion: intact in all extremities. 07:33 Reassessment: complaints of acid reflux, provider notified; medicated;. hj 07:58 Reassessment: provider notified on pain 6/10 back pain;. hj 08:30 Reassessment: Patient and/or family updated on plan of care and expected duration. Pain hj level reassessed. Patient is alert, oriented x 3, equal unlabored respirations, skin warm/dry/pink. awaiting u joan;. 09:46 Reassessment: Patient and/or family updated on plan of care and expected duration. Pain hj level reassessed. Patient is alert, oriented x 3, equal unlabored respirations, skin warm/dry/pink. awaiting POC:. Vital Signs: 06:35 BP 141 / 66; Pulse 55; Resp 18; Temp 98.8; Pulse Ox 99% on R/A; Weight 126.55 kg; ea Height 5 ft. 2 in. (157.48 cm); Pain 7/10; 07:30 BP 142 / 75; Pulse 56; Resp 18; Pulse Ox 100% on R/A; hj 08:06 BP 140 / 74; hj 08:30 BP 140 / 74; Pulse 58; Resp 18; Pulse Ox 100% on R/A; hj 09:49 BP 138 / 60; Pulse 55; Resp 18; Pulse Ox 100% on R/A; hj 06:35 Body Mass Index 51.03 (126.55 kg, 157.48 cm) ea ED Course: 06:09 Patient arrived in ED. ds1 06:30 Guerrero Solano NP is PHCP. pm1 06:30 Chandana Clark MD is Attending Physician. pm1 06:30 Arm band placed on right wrist. Patient placed in an exam room, on a stretcher, on ea pulse oximetry. 06:39 Triage completed. ea 06:39 Patient has correct armband on for positive identification. Bed in low position. Call jd3 light in reach. Side rails up X2. Adult w/ patient. 07:01 Inserted saline lock: 20 gauge in right antecubital area, using aseptic technique. jd3 Blood collected. placed by Rafaela FOLEY. 07:04 Jonathan Miller, RN is Primary Nurse. 10:11 Urine collected: Recolllected clean catch ua. [facility] 10:12 Urine Dipstick--Ancillary (enter results) Sent. [facility] 10:37 No provider procedures requiring assistance completed. IV discontinued, intact, hj bleeding controlled, No redness/swelling at site. Pressure dressing applied. Administered Medications: 07:00 Drug: NS 0.9% 1000 ml Route: IV; Rate: 1000 ml; Site: right antecubital; 10:39 Follow up: IV Status: Completed infusion 07:00 Drug: Zofran 4 mg Route: IVP; Site: right antecubital; 08:07 Follow up: Response: No adverse reaction hj 07:16 Not Given (not available): Pepcid 20 mg IVP once hj 07:16 Drug: Pepcid 20 mg Route: PO; hj 08:07 Follow up: Response: No adverse reaction 07:58 Drug: Potassium Effervescent Tablet 50 mEq Route: PO; hj 08:06 Follow up: BP 140 / 74; Response: No adverse reaction Outcome: 10:14 Discharge ordered by . pm1 10:37 Discharged to home ambulatory, with family. 10:37 Condition: stable 10:37 Discharge instructions given to patient, family, Instructed on discharge instructions, follow up and referral plans. medication usage, Demonstrated understanding of instructions, follow-up care, medications, Prescriptions given X 2. 10:38 Patient left the ED. Signatures: Jordyn Cantu ds1 Jonathan Miller, Guerrero Price RN, NADEEN LAY UP OPERATOR pm1 Sherlyn Mays [facility] Lorena Chacon RN RN ea Davies, Jonathon, RN RN jd3
--- NOTE | 2018-01-22 10:15 | EDPHYS ---
Physician Documentation [facility] Name: Kat Aguilar Age: 47 yrs Sex: Female : 1970 Arrival Date: 01/22/2018 Time: 06:09 Bed 13 Private MD: ED Chandana Younger HPI: 01/22 07:00 This 47 yrs old Female presents to ER via Ambulatory with complaints of pm1 Vomiting and Diarrhea. 07:00 The patient presents to the emergency department with nausea, vomiting, diarrhea, pm1 abdominal pain, of the epigastric area, described as burning, sour, and does not radiate. Onset: The symptoms/episode began/occurred yesterday. Possible causes: unknown. The symptoms are aggravated by nothing. The symptoms are alleviated by nothing. The patient has not recently seen a physician, the patient's primary care provider is Dr. Guerra with an appointment to see her pain management physician today. Patient with a history of chronic back pain. Patient with 5 episodes of diarrhea last night and 1 episode of vomiting this AM. Patient is concerned that she might be dehydrated. 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 N/A - Hysterectomy ea Historical: - Allergies: 06:43 IV contrast; ea 06:43 Latex, Natural Rubber; ea 06:43 Sulfa (Sulfonamide Antibiotics); ea 06:43 Toradol; ea - Home Meds: 06:43 metformin 1,000 mg Oral tab 1 tab 1 time a day [Active]; estradiol 1 mg oral tab ea [Active]; Protonix 40 mg oral TbEC 1 tab once daily [Active]; diltiazem HCl 240 mg Oral cpER 1 cap once daily [Active]; levothyroxine 25 mcg tab 1 tab once daily [Active]; - PMHx: 06:43 Back pain; Bipolar disorder; chronic constipation; High Cholesterol; Diabetes - NIDDM; ea Hypothyroidism; PERIPHERAL NEUROPATHY; Migraines; Sleep Apnea; Hypertension; - PSHx: 07:00 Gastric Bypass; hj - Immunization history:: Adult Immunizations up to date. - Social history:: Smoking status: Patient/guardian denies using tobacco. ROS: 06:43 Constitutional: Negative for fever, chills, and weight loss, Eyes: Negative for injury, pm1 pain, redness, and discharge, ENT: Negative for injury, pain, and discharge, Neck: Negative for injury, pain, and swelling, Cardiovascular: Negative for chest pain, palpitations, and edema, Respiratory: Negative for shortness of breath, cough, wheezing, and pleuritic chest pain. 06:43 : Negative for injury, bleeding, discharge, and swelling, MS/Extremity: Negative for injury and deformity, Skin: Negative for injury, rash, and discoloration. 06:43 Abdomen/GI: Positive for nausea, vomiting, and diarrhea, Sour taste in her mouth, Negative for abdominal pain. 06:43 Back: Positive for of the left low back and right low back. 06:43 Neuro: Positive for tingling, Both hands. Gets this feeling when she is dehydrated, Negative for altered mental status, dizziness, gait disturbance, headache, numbness, syncope, near syncope, visual changes, No focal weakness. Exam: 06:43 Constitutional: This is a well developed, well nourished patient who is awake, alert, pm1 and in no acute distress. Head/Face: Normocephalic, atraumatic. Eyes: Pupils equal round and reactive to light, extra-ocular motions intact. Lids and lashes normal. Conjunctiva and sclera are non-icteric and not injected. Cornea within normal limits. Periorbital areas with no swelling, redness, or edema. ENT: Nares patent. No nasal discharge, no septal abnormalities noted. Tympanic membranes are normal and external auditory canals are clear. Oropharynx with no redness, swelling, or masses, exudates, or evidence of obstruction, uvula midline. Mucous membranes moist. Neck: Trachea midline, no thyromegaly or masses palpated, and no cervical lymphadenopathy. Supple, full range of motion without nuchal rigidity, or vertebral point tenderness. No Meningismus. Chest/axilla: Normal chest wall appearance and motion. Nontender with no deformity. No lesions are appreciated. Cardiovascular: Regular rate and rhythm with a normal S1 and S2. No gallops, murmurs, or rubs. No pulse deficits. Respiratory: Lungs have equal breath sounds bilaterally, clear to auscultation and percussion. No rales, rhonchi or wheezes noted. No increased work of breathing, no retractions or nasal flaring. 06:43 Back: No spinal tenderness. No costovertebral tenderness. Full range of motion. Skin: Warm, dry with normal turgor. Normal color with no rashes, no lesions, and no evidence of cellulitis. MS/ Extremity: Pulses equal, no cyanosis. Neurovascular intact. Full, normal range of motion. 06:43 Abdomen/GI: Inspection: obese Bowel sounds: normal, Palpation: abdomen is soft and non-tender, in all quadrants. 06:43 Neuro: Orientation: is normal, Mentation: is normal, Cranial nerves: CN II- XII are normal as tested, Cerebellar function: normal finger to nose testing, Motor: moves all fours, Sensation: is normal, no obvious gross deficits, Gait: is steady, at a normal pace, without difficulty. Vital Signs: 06:35 BP 141 / 66; Pulse 55; Resp 18; Temp 98.8; Pulse Ox 99% on R/A; Weight 126.55 kg; ea Height 5 ft. 2 in. (157.48 cm); Pain 7/10; 07:30 BP 142 / 75; Pulse 56; Resp 18; Pulse Ox 100% on R/A; hj 08:06 BP 140 / 74; hj 08:30 BP 140 / 74; Pulse 58; Resp 18; Pulse Ox 100% on R/A; hj 09:49 BP 138 / 60; Pulse 55; Resp 18; Pulse Ox 100% on R/A; hj 06:35 Body Mass Index 51.03 (126.55 kg, 157.48 cm) ea MDM: 06:30 Patient medically screened. pm1 06:48 Data reviewed: vital signs. Data interpreted: Pulse oximetry: on room air is 99 %. pm1 Interpretation: normal. 10:13 Counseling: I had a detailed discussion with the patient and/or guardian regarding: the pm1 historical points, exam findings, and any diagnostic results supporting the discharge/admit diagnosis, lab results, the need for outpatient follow up, to return to the emergency department if symptoms worsen or persist or if there are any questions or concerns that arise at home. 01/22 06:42 Order name: Basic Metabolic Panel; Complete Time: 07:51 pm1 01/22 06:42 Order name: CBC with Diff; Complete Time: 07:58 pm1 01/22 06:42 Order name: Hepatic Function; Complete Time: 07:51 pm1 01/22 06:42 Order name: Lipase; Complete Time: 07:51 pm1 01/22 06:42 Order name: Urine Microscopic Only; Complete Time: 09:14 pm1 01/22 08:41 Order name: Urine Dipstick--Ancillary (enter results); Complete Time: 08:54 bd 01/22 06:42 Order name: Urine Test (obtain specimen); Complete Time: 08:51 pm1 01/22 09:24 Order name: Urine Microscopic Only; Complete Time: 10:13 pm1 01/22 09:40 Order name: Urine Dipstick--Ancillary (enter results) 01/22 06:42 Order name: IV Saline Lock; Complete Time: 07:01 pm1 01/22 06:42 Order name: Labs collected and sent; Complete Time: 07:01 pm1 01/22 06:42 Order name: Urine Dipstick-Ancillary (obtain specimen); Complete Time: 08:48 pm1 Administered Medications: 07:00 Drug: NS 0.9% 1000 ml Route: IV; Rate: 1000 ml; Site: right antecubital; hj 10:39 Follow up: IV Status: Completed infusion hj 07:00 Drug: Zofran 4 mg Route: IVP; Site: right antecubital; hj 08:07 Follow up: Response: No adverse reaction hj 07:16 Not Given (not available): Pepcid 20 mg IVP once hj 07:16 Drug: Pepcid 20 mg Route: PO; hj 08:07 Follow up: Response: No adverse reaction hj 07:58 Drug: Potassium Effervescent Tablet 50 mEq Route: PO; hj 08:06 Follow up: BP 140 / 74; Response: No adverse reaction hj Disposition: 13:32 Co-signature as Attending Physician, Chandana Clark MD I agree with the assessment and genny plan of care. Disposition: 01/22/18 10:14 Discharged to Home. Impression: Diarrhea, unspecified, Nausea and vomiting. - Condition is Stable. - Discharge Instructions: Food Choices to Help Relieve Diarrhea, Adult, Diarrhea, Nausea and Vomiting, Viral Gastroenteritis. - Prescriptions for Bentyl 20 mg Oral Tablet - take 1 tablet by ORAL route every 6 hours As needed; 20 tablet. Zofran ODT 4 mg Oral tablet,disintegrating - place 1 tablet by TRANSLINGUAL route every 8 hours As needed; 10 tablet. - Family Work Release, Medication Reconciliation Form, Thank You Letter form. - Follow up: Emergency Department; When: As needed; Reason: Worsening of condition. Follow up: Private Physician; When: 2 - 3 days; Reason: Recheck today's complaints, Continuance of care, Re-evaluation by your physician. - Problem is new. - Symptoms have improved. Signatures: Dispatcher [employer] EDMS Chandana Clark MD MD cha Joaquin, Henry RN Guerrero Price, CAGER OPERATOR CAGER OPERATOR pm1 Lorena Chacon RN RN ea Corrections: (The following items were deleted from the chart) 10:38 10:14 01/22/2018 10:14 Discharged to Home. Impression: Diarrhea, unspecified; Nausea hj and vomiting. Condition is Stable. Discharge Instructions: Food Choices to Help Relieve Diarrhea, Adult, Diarrhea, Nausea and Vomiting, Viral Gastroenteritis. Prescriptions for Bentyl 20 mg Oral Tablet - take 1 tablet by ORAL route every 6 hours As needed; 20 tablet, Zofran 4 mg Oral Tablet - take 1 tablet by ORAL route every 12 hours As needed; 20 tablet. and Forms are Medication Reconciliation Form, Thank You Letter, Antibiotic Education, Prescription Opioid Use. Follow up: Emergency Department; When: As needed; Reason: Worsening of condition. Follow up: Private Physician; When: 2 - 3 days; Reason: Recheck today's complaints, Continuance of care, Re-evaluation by your physician. Problem is new. Symptoms have improved. pm1
[2018-01-22 10:42] VITALS: TEMP 98.8
[2018-01-22 10:43] VITALS: O2SAT 100
[2018-01-22 10:46] VITALS: BP 138/60
== END 2018-01-22 10:38 | disposition home or self-care (01) ==
LOC: ER 06:08
DX: R19.7 Diarrhea, unspecified (principal); I10 Essential (primary) hypertension; E11.9 Type 2 diabetes mellitus without complications; E78.00 Pure hypercholesterolemia, unspecified; Z88.2 Allergy status to sulfonamides; Z88.6 Allergy status to analgesic agent; Z91.040 Latex allergy status; Z91.041 Radiographic dye allergy status
CPT/HCPCS: 36415; 80048; 80076; 81003; 81015; 83690; 85025; 96361; 96374; 99284; J2405; J7030

== ENCOUNTER 2018-08-07 06:17 | Observation (INO) | payer MEDICAID ==
--- OUTSIDE RECORDS SUMMARY | 2018-08-07 06:24 | XMS REPORT | Clinical Summary ---
:1970 Author Organization [facility] Address [address] [place] [address] Care Team Providers Name Role Phone Matthew Guardado Brittany WIGGINS Primary Care Provider Allergies Active Allergy Reactions Severity Noted Date Comments Iodine 04/25/2016 Ketorolac 04/25/2016 Sulfa (Sulfonamide Antibiotics) 04/25/2016 Medications No known medications Active Problems Not on file Social History Tobacco Use Types Packs/Day Years Used Date Former Smoker Alcohol Use Drinks/Week oz/Week Comments No Sex Assigned at Date Recorded Not on file Job Start Date Occupation Industry Not on file Not on file Not on file Travel History Travel Start Travel End No recent travel history available. Last Filed Vital Signs Not on file Plan of Treatment Health Maintenance Due Date Last Done Comments MMR VACCINES (1 of 1 - Standard 1970 series) VARICELLA VACCINES (1 of 2 - 2-dose 1982 adolescent series) CERVICAL CANCER SCREENING 1990 INFLUENZA VACCINE 04/08/2018 HEPATITIS B VACCINES Aged Out No longer eligible based on patient's age to complete this topic IPV VACCINES Aged Out No longer eligible based on patient's age to complete this topic MENINGOCOCCAL VACCINE Aged Out No longer eligible based on patient's age to complete this topic Results Not on fileafter 2017 Insurance Payer Benefit Plan / Group Subscriber ID Type Phone Address dynaTrace software [facility] [employer] xxxxxxxxx HMO Advance Directives Patient has advance care planning documents on file. For more information, please contact:[facility] [facility] [place] [address]
--- OUTSIDE RECORDS SUMMARY | 2018-08-07 06:25 | XMS REPORT ---
:1970 [facility] [address] [place] [address] [address] [place] [address] Care Team Providers Name Role Phone UNKNOWN, [...] Type Clinicians Facility Department ID 2017-05-22 Inpatient [facility] [id number] 16:23:00 2017-12-23 2017-12-23 Emergency [facility] [id number] 15:29:00 15:29:00 [facility] 2017-07-30 2017-07-30 Outpatient [facility] [id number] 12:09:00 12:09:00 2017-07-09 2017-07-09 Outpatient [facility] [id number] 00:01:00 00:01:00 2017-06-17 2017-06-17 Outpatient [facility] [id number] 18:46:00 18:46:00 2017-06-08 2017-06-08 Outpatient [facility] [id number] 00:01:00 00:01:00 2017-06-06 2017-06-06 Outpatient [facility] [id number] 21:11:00 21:11:00 Results Test Description Test Time Test Comments Text Results Atomic Results Result Comments Lipase 2017-12-27 01:00:00 Test Item Value Reference Range Comments Lipase (test code=LIP) 28 U/L 13-60 Comprehensive Metabolic [id number] 01:00:00 Test Item Value Reference Range Comments [...] race is not provided, and the patient isAfrican-Romanian, multiply by 1.212. If sex is not [...] the National Kidney Foundation,http://nkdep.nih .gov BHCG, Urine, [id number] 00:45:00 Test Item Value Reference Range Comments Preg Qual [Ur] (test code=HUHCG) Negative Negative CBC with [id number] 00:44:00 Test Item Value Reference Range Comments [...] Lymph Abs (test code=ALYMPH) 2.6 K/cumm 0.5-4.6 Crawford Abs (test code=AMONO) 0.4 K/cumm 0.0-1.2 Eos Abs (test code=AEOS) 0.38 K/cumm 0.00-0.74 Baso Abs (test code=ABASO) 0.1 K/cumm 0.00-0.21 Urinalysis [id number] 00:32:00 Test Item Value Reference Range Comments Color (test code=COLOR) Yellow Yellow,Straw,Pl yellow Clarity (test code=CLAR) Sl Cloudy Clear Specific [place] (test code=SPGR) 1.016 1.001-1.035 pH (test code=PH) [...] /HPF 0-5 Bacteria (test code=BACT) Many /HPF [id number] 17:42:00 Test Item Value Reference Range Comments Lipase (test code=LIP) 28 U/L 13-60 Comprehensive Metabolic [id number] 17:42:00 Test Item Value Reference Range Comments [...] race is not provided, and the patient isAfrican-Romanian, multiply by 1.212. If sex is not [...] the National Kidney Foundation,http://nkdep.nih .gov CBC with [id number] 17:00:00 Test Item Value Reference Range Comments [...] Lymph Abs (test code=ALYMPH) 2.0 K/cumm 0.5-4.6 Crawford Abs (test code=AMONO) 0.3 K/cumm 0.0-1.2 Eos Abs (test code=AEOS) 0.34 K/cumm 0.00-0.74 Baso Abs (test code=ABASO) 0.0 K/cumm 0.00-0.21 72664& PELVIS W/O [id number] 16:47:19CT OF THE ABDOMEN AND PELVIS WITHOUT [...] absence of the gallbladder and uterus.POC Glucose, [id number] 07:45:00 Test Item Value Reference Range Comments POC Glucose (test 158 mg/dL 70-115 Notify RN or MDIf you consider code=POCGLUC) your patient critically ill, the [place] Accu-Chek InformII metershould not be used for Glucose determinations.Draw a venous Glucose and send to the Main Lab for Analysis. POC Glucose, [id number] 20:31:00 Test Item Value Reference Range Comments POC Glucose (test 167 mg/dL 70-115 If you consider your patient code=POCGLUC) critically ill, the [place] Accu-Chek InformII metershould not be used for Glucose determinations.Draw a venous Glucose and send to the Main Lab for Analysis. POC Glucose, [id number] 16:44:00 Test Item Value Reference Range Comments POC Glucose (test 148 mg/dL 70-115 If you consider your patient code=POCGLUC) critically ill, the [place] Accu-Chek InformII metershould not be used for Glucose determinations.Draw a venous Glucose and send to the Main Lab for Analysis. POC Glucose, [id number] 11:25:00 Test Item Value Reference Range Comments POC Glucose (test 173 mg/dL 70-115 If you consider your patient code=POCGLUC) critically ill, the [place] Accu-Chek InformII metershould not be used for Glucose determinations.Draw a venous Glucose and send to the Main Lab for Analysis. POC Glucose, [id number] 07:30:00 Test Item Value Reference Range Comments POC Glucose (test 191 mg/dL 70-115 If you consider your patient code=POCGLUC) critically ill, the [place] Accu-Chek InformII metershould not be used for Glucose determinations.Draw a venous Glucose and send to the Main Lab for Analysis. POC Glucose, [id number] 06:33:00 Test Item Value Reference Range Comments POC Glucose (test 181 mg/dL 70-115 If you consider your patient code=POCGLUC) critically ill, the [place] Accu-Chek InformII metershould not be used for Glucose determinations.Draw a venous Glucose and send to the Main Lab for Analysis. Comprehensive Metabolic [id number] 05:28:00 Test Item Value Reference Range Comments [...] race is not provided, and the patient isAfrican-Romanian, multiply by 1.212. If sex is not [...] the National Kidney Foundation,http://nkdep.nih .gov CBC with [id number] 05:03:00 Test Item Value Reference Range Comments [...] Lymph Abs (test code=ALYMPH) 1.6 K/cumm 0.5-4.6 Crawford Abs (test code=AMONO) 0.3 K/cumm 0.0-1.2 Eos Abs (test code=AEOS) 0.23 K/cumm 0.00-0.74 Baso Abs (test code=ABASO) 0.0 K/cumm 0.00-0.21 POC Glucose, [id number] 21:57:00 Test Item Value Reference Range Comments POC Glucose (test 176 mg/dL 70-115 If you consider your patient code=POCGLUC) critically ill, the [place] Accu-Chek InformII metershould not be used for Glucose determinations.Draw a venous Glucose and send to the Main Lab for Analysis. POC Glucose, [id number] 16:25:00 Test Item Value Reference Range Comments POC Glucose (test 148 mg/dL 70-115 If you consider your patient code=POCGLUC) critically ill, the [place] Accu-Chek InformII metershould not be used for Glucose determinations.Draw a venous Glucose and send to the Main Lab for Analysis. CT NECK SOFT TISSUE WO [id number] 15:49:06Exam: CT soft tissue neck withoutcontrast.Location: [id number]: Neck painTechnique: Unenhanced spiral slices were taken through the neck.Sagittal and coronal reformations were performed. One or more ofthefollowing radiation dose reduction techniques was used: Automaticexposure control, adjustment of mA and/or KV according to the patient'ssize, and/or utilization of iterative reconstruction technique. Findings:The parotid space, carotid space, communications planner space, prevertebral spaceand the fossa of Rosenm?ller are normal. The oral and hypopharynx areunremarkable.The salivary glands are normal. No sialadenitis or sialolithiasis isseen.The larynx and trachea are normal. The cervical and visualized thoracicesophagus is unremarkable. No lymphadenopathy is present in eitherjugular or either posterior chain.The thyroid gland is normal. The soft tissues are unremarkable.Impression:Unremarkable exam.CT CHEST W/O [id number] 15:45:29Exam: CT thorax withoutcontrast.Location: [id number]: Chest painTechnique: Unenhancedspiral slices were taken from [...] are notedImpression: Left lower lobe pneumonia.POC Glucose, [id number] 11:54:00 Test Item Value Reference Range Comments POC Glucose (test 200 mg/dL 70-115 If you consider your patient code=POCGLUC) critically ill, the [place] Accu-Chek InformII metershould not be used for Glucose determinations.Draw a venous Glucose and send to the Main Lab for Analysis. POC Glucose, [id number] 07:17:00 Test Item Value Reference Range Comments POC Glucose (test 180 mg/dL 70-115 If you consider your patient code=POCGLUC) critically ill, the [place] Accu-Chek InformII metershould not be used for Glucose determinations.Draw a venous Glucose and send to the Main Lab for Analysis. Comprehensive Metabolic [id number] 06:33:00 Test Item Value Reference Range Comments [...] race is not provided, and the patient isAfrican-Romanian, multiply by 1.212. If sex is not [...] the National Kidney Foundation,http://nkdep.nih .gov CBC with [id number] 06:13:00 Test Item Value Reference Range Comments [...] Lymph Abs (test code=ALYMPH) 1.6 K/cumm 0.5-4.6 Crawford Abs (test code=AMONO) 0.4 K/cumm 0.0-1.2 Eos Abs (test code=AEOS) 0.31 K/cumm 0.00-0.74 Baso Abs (test code=ABASO) 0.0 K/cumm 0.00-0.21 POC Glucose, [id number] 23:37:00 Test Item Value Reference Range Comments POC Glucose (test 152 mg/dL 70-115 If you consider your patient code=POCGLUC) critically ill, the [place] Accu-Chek InformII metershould not be used for Glucose determinations.Draw a venous Glucose and send to the Main Lab for Analysis. POC Glucose, [id number] 17:16:00 Test Item Value Reference Range Comments POC Glucose (test 170 mg/dL 70-115 If you consider your patient code=POCGLUC) critically ill, the [place] Accu-Chek InformII metershould not be used for Glucose determinations.Draw a venous Glucose and send to the Main Lab for Analysis. D-Dimer, [id number] 15:56:00 Test Item Value Reference Range Comments D-Dimer, Quant (test code=DDQNT) 1610 ng/mL 0-500 97003&PERFUS [id number] 14:47:54Dictation location: R 16Clinical indication: Shortness of [...] of pulmonary emboli.US DUPLX EXT VEINS COMPRS, [id number] 12:42:18DICTATION LOCATION: [id number]: DVTCOMPARISON: None available.TECHNIQUE: Duplex sonography of theright [...] lower extremity.Small right Gaspar's cyst.XR CHEST 2V, [id number] 11:43:22EXAM: Chest x-ray, 2 viewsLOCATION: [id number]: Chest radiograph 12/04/2017 and 11/26/2017INDICATION: chest painDISCUSSION:PA [...] silhouette.3. Otherwise, no acute cardiopulmonary abnormalities.POC Glucose, [id number] 07:08:00 Test Item Value Reference Range Comments POC Glucose (test 201 mg/dL 70-115 Notify RN or MDIf you consider code=POCGLUC) your patient critically ill, the [place] Accu-Chek InformII metershould not be used for Glucose determinations.Draw a venous Glucose and send to the Main Lab for Analysis. POC Glucose, [id number] 00:19:00 Test Item Value Reference Range Comments POC Glucose (test 173 mg/dL 70-115 Notify RN or MDIf you consider code=POCGLUC) your patient critically ill, the [place] Accu-Chek InformII metershould not be used for Glucose determinations.Draw a venous Glucose and send to the Main Lab for Analysis. POC Glucose, [id number] 21:49:00 Test Item Value Reference Range Comments POC Glucose (test 189 mg/dL 70-115 If you consider your patient code=POCGLUC) critically ill, the [place] Accu-Chek InformII metershould not be used for Glucose determinations.Draw a venous Glucose and send to the Main Lab for Analysis. POC Glucose, [id number] 17:09:00 Test Item Value Reference Range Comments POC Glucose (test 193 mg/dL 70-115 Notify RN or MDIf you consider code=POCGLUC) your patient critically ill, the [place] Accu-Chek InformII metershould not be used for Glucose determinations.Draw a venous Glucose and send to the Main Lab for Analysis. POC Glucose, [id number] 12:20:00 Test Item Value Reference Range Comments POC Glucose (test 166 mg/dL 70-115 If you consider your patient code=POCGLUC) critically ill, the [place] Accu-Chek InformII metershould not be used for Glucose determinations.Draw a venous Glucose and send to the Main Lab for Analysis. POC Glucose, [id number] 09:03:00 Test Item Value Reference Range Comments POC Glucose (test 212 mg/dL 70-115 If you consider your patient code=POCGLUC) critically ill, the [place] Accu-Chek InformII metershould not be used for Glucose determinations.Draw a venous Glucose and send to the Main Lab for Analysis. Comprehensive Metabolic [id number] 05:54:00 Test Item Value Reference Range Comments [...] race is not provided, and the patient isAfrican-Romanian, multiply by 1.212. If sex is not [...] the National Kidney Foundation,http://nkdep.nih .gov CBC with [id number] 05:40:00 Test Item Value Reference Range Comments [...] Lymph Abs (test code=ALYMPH) 1.7 K/cumm 0.5-4.6 Crawford Abs (test code=AMONO) 0.9 K/cumm 0.0-1.2 Eos Abs (test code=AEOS) 0.04 K/cumm 0.00-0.74 Baso Abs (test code=ABASO) 0.0 K/cumm 0.00-0.21 POC Glucose, [id number] 05:04:00 Test Item Value Reference Range Comments POC Glucose (test 202 mg/dL 70-115 If you consider your patient code=POCGLUC) critically ill, the [place] Accu-Chek InformII metershould not be used for Glucose determinations.Draw a venous Glucose and send to the Main Lab for Analysis. XR CHEST 1 [id number] 03:04:28AFTER HOURS SERVICE ON: 12/04/2017 3:04 AMAP Portable ChestLocation Code [id number]: Status Post Lap Gastric BypassFINDINGS: There are no infiltrates. There are no pleural effusions. There is nopneumothorax. Cardiac silhouette and mediastinum appear within normallimits. Surgical drain is noted projecting over the mid abdomen and leftupper quadrant.IMPRESSION: No active intrathoracic findings.POC Glucose, [id number] 02:06:00 Test Item Value Reference Range Comments POC Glucose (test 213 mg/dL 70-115 If you consider your patient code=POCGLUC) critically ill, the [place] Accu-Chek InformII metershould not be used for Glucose determinations.Draw a venous Glucose and send to the Main Lab for Analysis. POC Glucose, [id number] 21:15:00 Test Item Value Reference Range Comments POC Glucose (test 236 mg/dL 70-115 If you consider your patient code=POCGLUC) critically ill, the [place] Accu-Chek InformII metershould not be used for Glucose determinations.Draw a venous Glucose and send to the Main Lab for Analysis. POC Glucose, [id number] 16:03:00 Test Item Value Reference Range Comments POC Glucose (test 235 mg/dL 70-115 If you consider your patient code=POCGLUC) critically ill, the [place] Accu-Chek InformII metershould not be used for Glucose determinations.Draw a venous Glucose and send to the Main Lab for Analysis. POC Glucose, [id number] 11:24:00 Test Item Value Reference Range Comments POC Glucose (test 269 mg/dL 70-115 If you consider your patient code=POCGLUC) critically ill, the [place] Accu-Chek InformII metershould not be used for Glucose determinations.Draw a venous Glucose and send to the Main Lab for Analysis. XR CHEST 2 [id number] 18:35:18CLINICAL INFORMATION: Preprocedural evaluation. Checkup..Dictation Location: R 16Comparison: No prior.Findings: The heart size and pulmonary vessels are unremarkable.No active consolidation, effusion, or soft tissue mass is identified.Mild vertebral spurring.IMPRESSION: No active disease of the heart or lungs identified.Basic Metabolic [id number] 18:23:00 Test Item Value Reference Range [...] race is not provided, and the patient isAfrican-Romanian, multiply by 1.212. If sex is not [...] the National Kidney Foundation,http://nkdep.nih .gov CBC with [id number] 18:08:00 Test Item Value Reference Range Comments [...] Lymph Abs (test code=ALYMPH) 2.0 K/cumm 0.5-4.6 Crawford Abs (test code=AMONO) 0.3 K/cumm 0.0-1.2 Eos Abs (test code=AEOS) 0.14 K/cumm 0.00-0.74 Baso Abs (test code=ABASO) 0.0 K/cumm 0.00-0.21 US DUPLX EXT VEIN COMPRS, [id number] 13:22:06DICTATION LOCATION: [id number]: I82.409: ACUTE EMBOLISM AND THOMBOS UNSP DEEP [...]
[2018-08-07] MEDS ORDERED: ONDANSETRON 4 MG/2 ML VIAL ONE ×2 (06:53→08:40)
[2018-08-07] MEDS ORDERED: ASPIRIN 81 MG CHEWABLE TABLET ONE (06:53)
[2018-08-07] MEDS ORDERED: FAMOTIDINE 20 MG/2 ML VIAL IV ONE (06:53)
[2018-08-07 07:08] LABS: Absolute Lymphocytes (CBC) 1.8 K/uL (0.7-4.9); Absolute Monocytes 0.4 K/uL (0.1-1.3); Absolute Neutrophil 3.9 K/uL (1.8-8.0); Basophils % 0.9 % (0-1.3); Eosinophils % 4.7 % (0-4.4); Hematocrit 37.8 % (36.0-45.0); Lymphocytes % 28.3 % (15.3-44.8); MCH 29.8 pg (27.0-35.0); MCV 84.9 fL (80-100); MPV 9.4 fL (7.6-11.3); Monocytes % 6.1 % (3.3-12.3); RBC Red Blood Cell Count 4.46 M/uL (3.86-4.86)
[2018-08-07 07:13] LABS: Protime INR 1.13
[2018-08-07 07:29] LABS: ALT/SGPT 43 U/L (12-78); AST/SGOT 28 U/L (15-37); Albumin 3.6 g/dL (3.4-5.0); Alkaline Phosphatase 105 U/L (45-117); BUN Blood Urea Nitrogen 11 mg/dL (7-18); Bicarbonate 29 mmol/L (21-32); Bilirubin Direct 0.1 mg/dL (0-0.2); Bilirubin Total 0.3 mg/dL (0.2-1.0); Glucose Level 89 mg/dL (74-106); Magnesium 2.2 mg/dL (1.8-2.4); NT PRO-BNP 56 pg/mL (<125); Potassium 3.7 mmol/L (3.5-5.1); Protein, Total 7.5 g/dL (6.4-8.2); Sodium Level 143 mmol/L (136-145); Troponin (Emerg Dept Use Only) < 0.02 ng/mL (0.0-0.045)
[2018-08-07] MEDS ORDERED: MAGNE/ALUM HYDROXD 30 ML UCUP ONE (07:54)
[2018-08-07] MEDS ORDERED: LIDOCAINE VISCOUS 2% SOLN 15 ML UDC ONE (07:55)
[2018-08-07 07:57] LABS: Lipase 103 U/L (73-393)
[2018-08-07] MEDS ORDERED: NITROGLYCERIN 0.4 MG/TAB SL ONE (08:13)
[2018-08-07] MEDS ORDERED: MORPHINE 4 MG/ML SYR ONE (08:40)
--- NOTE | 2018-08-07 08:40 | ER ---
Nurse's Notes [facility] Name: Kat Aguilar Age: 48 yrs Sex: Female : 1970 Arrival Date: 08/07/2018 Time: 06:19 Bed 17 Private MD: Diagnosis: Chest pain, unspecified Presentation: 08/07 06:43 Presenting complaint: Patient states: very nauseated with SOB and chest pressure. cc3 Transition of care: patient was not received from another setting of care. Onset of symptoms was August 07, 2018. Risk Assessment: Do you want to hurt yourself or someone else? Patient reports no desire to harm self or others. Initial Sepsis Screen: Does the patient meet any 2 criteria? No. Patient's initial sepsis screen is negative. Does the patient have a suspected source of infection? No. Patient's initial sepsis screen is negative. Care prior to arrival: None. 06:43 Method Of Arrival: Wheelchair cc3 06:43 Acuity: JADYN 3 cc3 Historical: - Allergies: 06:43 IV contrast; cc3 06:43 Latex, Natural Rubber; cc3 06:43 Sulfa (Sulfonamide Antibiotics); cc3 06:43 Toradol; cc3 06:43 NSAIDS; cc3 - Home Meds: 06:43 diltiazem HCl 240 mg Oral cpER 1 cap once daily [Active]; estradiol 1 mg Oral tab cc3 [Active]; levothyroxine 25 mcg tab 1 tab once daily [Active]; metformin 1,000 mg Oral tab 1 tab 1 time a day [Active]; Protonix 40 mg Oral TbEC 1 tab once daily [Active]; - PMHx: 06:43 Back pain; Bipolar disorder; chronic constipation; Diabetes - NIDDM; High Cholesterol; cc3 Hypertension; Hypothyroidism; Migraines; PERIPHERAL NEUROPATHY; Sleep Apnea; - PSHx: 06:43 bariatric surgery; Hysterectomy; Cholecystectomy; ; right knee surgery; right cc3 thumb surgery; - Immunization history:: Adult Immunizations up to date. - Social history:: Smoking status: Patient/guardian denies using tobacco, never smoked. - Ebola Screening: : No symptoms or risks identified at this time. Screenin:26 Abuse screen: Denies threats or abuse. Nutritional screening: No deficits noted. em Tuberculosis screening: No symptoms or risk factors identified. Fall Risk None identified. Assessment: 07:25 General: Appears in no apparent distress. comfortable, Behavior is calm, cooperative. em Pain: Complains of pain in chest Pain does not radiate. Pain began 2 hours ago. Neuro: Level of Consciousness is awake, alert, obeys commands, Oriented to person, place, time, situation, Reports dizziness. Cardiovascular: Reports nausea, Heart tones S1 S2 present Capillary refill < 3 seconds Patient's skin is warm and dry. Rhythm is sinus bradycardia. Respiratory: Airway is patent Respiratory effort is even, unlabored, Respiratory pattern is regular, symmetrical, Breath sounds are clear bilaterally. GI: Abdomen is round non-distended, Reports nausea, Patient currently denies diarrhea. : No signs and/or symptoms were reported regarding the genitourinary system. EENT: No signs and/or symptoms were reported regarding the EENT system. Derm: Skin is intact, Skin is pink, warm \T\ dry. Musculoskeletal: Range of motion: intact in all extremities. 07:40 Reassessment: Patient appears in no apparent distress at this time. Patient and/or em family updated on plan of care and expected duration. Pain level reassessed. Patient is alert, oriented x 3, equal unlabored respirations, skin warm/dry/pink. rates pain 8/10, nausea has not improved, provider notified. 08:28 Reassessment: rates pain 7/10 after nitro 0.4 mg, provider notified, new medication em orders received. 10:20 Reassessment: Patient appears in no apparent distress at this time. Patient and/or em family updated on plan of care and expected duration. Pain level reassessed. Patient is alert, oriented x 3, equal unlabored respirations, skin warm/dry/pink. rates pain 4/10 Patient states feeling better. Patient states symptoms have improved. 10:25 Reassessment: attempted to call report to the floor, nurse was unaware of pt and will em return phone call. Vital Signs: 06:43 BP 140 / 81; Pulse 63; Resp 20 S; Temp 98.5(O); Pulse Ox 100% on R/A; Weight 103.42 kg cc3 (R); Height 5 ft. 2 in. (157.48 cm) (R); Pain 8/10; 07:31 BP 135 / 79; Pulse 55; Resp 16; Pulse Ox 100% on R/A; Pain 8/10; em 08:30 BP 130 / 67; Pulse 67; Resp 18; Pulse Ox 100% on R/A; Pain 7/10; em 09:30 BP 135 / 75; Pulse 58; Resp 16; Pulse Ox 99% on R/A; em 10:23 BP 128 / 71; Pulse 51; Resp 17; Pulse Ox 97% on R/A; Pain 4/10; em 06:43 Body Mass Index 41.70 (103.42 kg, 157.48 cm) cc3 ED Course: 06:19 Patient arrived in ED. am2 06:24 Chandana Prasad PA is PHCP. cp 06:24 Christian Ybarra MD is Attending Physician. cp 06:43 Dwayne Keller RN is Primary Nurse. jd3 06:43 Arm band placed on right wrist. cc3 07:04 X-ray completed. Portable x-ray completed in exam room. Patient tolerated procedure jb2 well. 07:09 Triage completed. cc3 07:11 XRAY Chest (1 view) In Process Unspecified. EDMS 07:26 Patient has correct armband on for positive identification. Placed in gown. Bed in low em position. Call light in reach. Side rails up X2. cardiac monitor technician on. Pulse ox on. NIBP on. 07:26 Patient maintains SpO2 saturation greater than 95% on room air. em 08:38 Clinton Miller MD is Hospitalizing Provider. cp 09:00 Inserted saline lock: 20 gauge in right antecubital area, using aseptic technique. em Blood collected. 10:48 No provider procedures requiring assistance completed. Patient admitted, IV remains in em place. Administered Medications: 07:05 Drug: Aspirin Chewable Tablet 324 mg Route: PO; jd3 07:45 Follow up: Response: No adverse reaction em 07:06 Drug: Zofran 4 mg Route: IVP; Site: right antecubital; jd3 07:45 Follow up: Response: No adverse reaction; Nausea is decreased em 07:06 Drug: Pepcid 20 mg Route: IVP; Site: left antecubital; jd3 07:45 Follow up: Response: No adverse reaction em 07:50 Drug: GI Cocktail without - (Maalox Suspension 30 ml, Lidocaine Liquid 2 % 15 em ml) Route: PO; 08:27 Follow up: Response: No adverse reaction em 08:09 Drug: Nitroglycerin 0.4 mg Route: Sublingual; em 08:30 Follow up: Response: No adverse reaction; Pain is decreased em 08:48 Drug: morphine 4 mg Route: IVP; Site: right antecubital; ss 09:45 Follow up: Response: No adverse reaction; Pain is decreased em 08:48 Drug: Zofran 4 mg Route: IVP; Site: right antecubital; ss 09:45 Follow up: Response: No adverse reaction em 10:05 Drug: Phenergan 25 mg Route: IVP; Site: right antecubital; ss 10:24 Follow up: Response: No adverse reaction; Nausea is decreased em 10:05 Drug: fentaNYL (PF) 25 mcg Route: IVP; Site: right antecubital; ss 10:25 Follow up: Response: No adverse reaction; Pain is decreased em 10:05 Drug: ProTONIX 40 mg Route: IVP; Site: right antecubital; ss 10:25 Follow up: Response: No adverse reaction em Outcome: 08:39 Decision to Hospitalize by Provider. cp 10:48 Admitted to Tele accompanied by tech, via wheelchair, room 420, with chart, Report em called to OG Pierre 10:48 Condition: good 10:48 Instructed on the need for admit, Demonstrated understanding of instructions. 10:59 Patient left the ED. em Signatures: Dispatcher [employer] EDPeter Lowery2 Wilfredo Martinez, NURSE EXECUTIVE NURSE EXECUTIVE em Dinora Bashir RN RN ss Page, Corey, PA PA Cristiana Zamora amDwayne Alexander RN RN jd3 Ilana Sanchez cc3
--- NOTE | 2018-08-07 08:40 | EDPHYS ---
Physician Documentation [facility] Name: Kat Aguilar Age: 48 yrs Sex: Female : 1970 Arrival Date: 08/07/2018 Time: 06:19 Bed 17 Private MD: ED Physician Christian Ybarra HPI: 08/07 06:30 This 48 yrs old Female presents to ER via Wheelchair with complaints of Chest cp Pain > 30 y/o. 06:30 The patient or guardian reports chest pain that is located primarily in the anterior cp chest wall, bilaterally. Onset: 20 minute(s) ago. The pain does not radiate. Associated signs and symptoms: Pertinent positives: shortness of breath, Pertinent negatives: abdominal pain, cough, diaphoresis, dizziness, headache, lower extremity pain, lower extremity swelling, palpitations, recent travel, syncope, vomiting. The chest pain is described as a pressure. Duration: The patient or guardian reports a single episode, that is still ongoing, and unchanged. Historical: - Allergies: 06:43 IV contrast; cc3 06:43 Latex, Natural Rubber; cc3 06:43 Sulfa (Sulfonamide Antibiotics); cc3 06:43 Toradol; cc3 06:43 NSAIDS; cc3 - Home Meds: 06:43 diltiazem HCl 240 mg Oral cpER 1 cap once daily [Active]; estradiol 1 mg Oral tab cc3 [Active]; levothyroxine 25 mcg tab 1 tab once daily [Active]; metformin 1,000 mg Oral tab 1 tab 1 time a day [Active]; Protonix 40 mg Oral TbEC 1 tab once daily [Active]; - PMHx: 06:43 Back pain; Bipolar disorder; chronic constipation; Diabetes - NIDDM; High Cholesterol; cc3 Hypertension; Hypothyroidism; Migraines; PERIPHERAL NEUROPATHY; Sleep Apnea; - PSHx: 06:43 bariatric surgery; Hysterectomy; Cholecystectomy; ; right knee surgery; right cc3 thumb surgery; - Immunization history:: Adult Immunizations up to date. - Social history:: Smoking status: Patient/guardian denies using tobacco, never smoked. - Ebola Screening: : No symptoms or risks identified at this time. ROS: 06:35 Constitutional: Negative for body aches, chills, fever, poor PO intake. cp 06:35 Eyes: Negative for injury, pain, redness, and discharge. cp 06:35 ENT: Negative for drainage from ear(s), ear pain, sore throat, difficulty swallowing, difficulty handling secretions. 06:35 Cardiovascular: Positive for chest pain, Negative for edema, palpitations. 06:35 Respiratory: Negative for cough, shortness of breath, wheezing. 06:35 Abdomen/GI: Negative for abdominal pain, nausea, vomiting, and diarrhea, constipation, black/tarry stool, rectal bleeding. 06:35 Back: Negative for pain at rest, pain with movement, radiated pain. 06:35 MS/extremity: Negative for injury or acute deformity, decreased range of motion, paresthesias. 06:35 Skin: Negative for cellulitis, rash. 06:35 Neuro: Negative for altered mental status, dizziness, headache, syncope, near syncope, weakness. 06:35 All other systems are negative. Exam: 06:38 Constitutional: The patient appears in no acute distress, alert, awake, cp non-diaphoretic, well developed, well nourished, obese. 06:38 Head/Face: Normocephalic, atraumatic. Eyes: Pupils equal round and reactive to light, cp extra-ocular motions intact. Lids and lashes normal. Conjunctiva and sclera are non-icteric and not injected. Cornea within normal limits. Periorbital areas with no swelling, redness, or edema. ENT: Nares patent. No nasal discharge, no septal abnormalities noted. Tympanic membranes are normal and external auditory canals are clear. Oropharynx with no redness, swelling, or masses, exudates, or evidence of obstruction, uvula midline. Mucous membranes moist. Neck: Trachea midline, no thyromegaly or masses palpated, and no cervical lymphadenopathy. Supple, full range of motion without nuchal rigidity, or vertebral point tenderness. No Meningismus. 06:38 Chest/axilla: Inspection: normal. 06:38 Cardiovascular: Rate: normal, Rhythm: regular, Pulses: Pulses are 2+ in right radial artery and left radial artery. Heart sounds: murmur, not appreciated, rub, not appreciated, gallop, not appreciated, Edema: is not appreciated, JVD: is not appreciated. 06:38 Respiratory: the patient does not display signs of respiratory distress, Respirations: normal, no use of accessory muscles, no retractions, no splinting, no tachypnea, labored breathing, is not present, Breath sounds: are clear throughout, no decreased breath sounds, no stridor, no wheezing. 06:38 Abdomen/GI: Inspection: obese Bowel sounds: active, all quadrants, Palpation: abdomen is soft and non-tender, in all quadrants, rebound tenderness, is not appreciated, voluntary guarding, is not appreciated, involuntary guarding, is not appreciated. 06:38 Back: pain, is absent, ROM is normal. 06:38 Skin: cellulitis, is not appreciated, no rash present. 06:38 Neuro: Orientation: to person, place \T\ time. Mentation: is normal, Cerebellar function: is grossly normal, Motor: is normal, Sensation: is normal. 06:40 ECG was reviewed by the Attending Physician. Vital Signs: 06:43 BP 140 / 81; Pulse 63; Resp 20 S; Temp 98.5(O); Pulse Ox 100% on R/A; Weight 103.42 kg cc3 (R); Height 5 ft. 2 in. (157.48 cm) (R); Pain 8/10; 07:31 BP 135 / 79; Pulse 55; Resp 16; Pulse Ox 100% on R/A; Pain 8/10; em 08:30 BP 130 / 67; Pulse 67; Resp 18; Pulse Ox 100% on R/A; Pain 7/10; em 09:30 BP 135 / 75; Pulse 58; Resp 16; Pulse Ox 99% on R/A; em 10:23 BP 128 / 71; Pulse 51; Resp 17; Pulse Ox 97% on R/A; Pain 4/10; em 06:43 Body Mass Index 41.70 (103.42 kg, 157.48 cm) cc3 MDM: 06:24 Patient medically screened. cp 07:00 Differential diagnosis: abnormal EKG, acute myocardial infarction, acute pericarditis, cp chest wall pain, pericarditis, pleurisy, pneumonia, pulmonary embolus, stable angina, unstable angina. 08:37 Data reviewed: vital signs, nurses notes, lab test result(s), EKG, radiologic studies, cp plain films. 08:37 The patient was given aspirin in the Emergency Department. Test interpretation: by ED cp physician or midlevel provider: ECG, plain radiologic studies. Physician consultation: Clinton Miller MD regarding admission, to the telemetry unit. patient's condition. 08/07 06:28 Order name: Basic Metabolic Panel; Complete Time: 09:35 08/07 07:39 Interpretation: Normal except: CL 108. 08/07 06:28 Order name: CBC with Diff; Complete Time: 07:27 08/07 07:40 Interpretation: Normal except: EOSINOPHIL % 4.7. 08/07 06:28 Order name: LFT's; Complete Time: 09:35 08/07 07:39 Interpretation: Normal except: GLOB 3.9; A/G 0.9. 08/07 06:28 Order name: Magnesium; Complete Time: 09:35 08/07 06:28 Order name: NT PRO-BNP; Complete Time: 09:35 08/07 06:28 Order name: PT-INR; Complete Time: 07:27 08/07 06:28 Order name: Troponin (emerg Dept Use Only); Complete Time: 09:35 08/07 07:43 Order name: LAB Add On 08/07 07:53 Order name: Lipase; Complete Time: 09:35 EDNC 08/07 09:08 Order name: Basic Metabolic Panel EDNC 08/07 09:08 Order name: Basic Metabolic Panel EDNC 08/07 09:08 Order name: Basic Metabolic Panel EDNC 08/07 09:08 Order name: Lipid Profile EDNC 08/07 09:08 Order name: Lipid Profile EDNC 08/07 06:28 Order name: XRAY Chest (1 view); Complete Time: 09:35 08/07 09:35 Interpretation: Report review. 08/07 09:08 Order name: Echo with Doppler EDNC 08/07 09:08 Order name: Troponin I EDNC 08/07 09:08 Order name: Troponin I EDMS 08/07 09:08 Order name: Troponin I EDMS 08/07 09:09 Order name: CBC with Automated Diff EDMS 08/07 09:09 Order name: CBC with Automated Diff EDMS 08/07 09:09 Order name: CBC with Automated Diff EDMS 08/07 06:28 Order name: EKG; Complete Time: 06:29 08/07 06:28 Order name: Cardiac monitoring; Complete Time: 07:07 08/07 06:28 Order name: EKG - Nurse/Tech; Complete Time: 07:07 08/07 06:28 Order name: IV Saline Lock; Complete Time: 07:07 cp 08/07 06:28 Order name: Labs collected and sent; Complete Time: 07:07 cp 08/07 06:28 Order name: O2 Per Protocol; Complete Time: 07:07 cp 08/07 06:28 Order name: O2 Sat Monitoring; Complete Time: 07:07 cp 08/07 09:08 Order name: CONS Physician Consult EDMS 08/07 09:08 Order name: Heart Healthy EDMS EC:40 Rate is 60 beats/min. Rhythm is regular. CT interval is normal. QRS interval is normal. cp QT interval is normal. Interpreted by me. Reviewed by me. Administered Medications: 07:05 Drug: Aspirin Chewable Tablet 324 mg Route: PO; jd3 07:45 Follow up: Response: No adverse reaction em 07:06 Drug: Zofran 4 mg Route: IVP; Site: right antecubital; jd3 07:45 Follow up: Response: No adverse reaction; Nausea is decreased em 07:06 Drug: Pepcid 20 mg Route: IVP; Site: left antecubital; jd3 07:45 Follow up: Response: No adverse reaction em 07:50 Drug: GI Cocktail without - (Maalox Suspension 30 ml, Lidocaine Liquid 2 % 15 em ml) Route: PO; 08:27 Follow up: Response: No adverse reaction em 08:09 Drug: Nitroglycerin 0.4 mg Route: Sublingual; em 08:30 Follow up: Response: No adverse reaction; Pain is decreased em 08:48 Drug: morphine 4 mg Route: IVP; Site: right antecubital; ss 09:45 Follow up: Response: No adverse reaction; Pain is decreased em 08:48 Drug: Zofran 4 mg Route: IVP; Site: right antecubital; ss 09:45 Follow up: Response: No adverse reaction em 10:05 Drug: Phenergan 25 mg Route: IVP; Site: right antecubital; ss 10:24 Follow up: Response: No adverse reaction; Nausea is decreased em 10:05 Drug: fentaNYL (PF) 25 mcg Route: IVP; Site: right antecubital; ss 10:25 Follow up: Response: No adverse reaction; Pain is decreased em 10:05 Drug: ProTONIX 40 mg Route: IVP; Site: right antecubital; ss 10:25 Follow up: Response: No adverse reaction em Disposition: 08/08 07:08 Co-signature as Attending Physician, Christian Ybrara MD. Disposition: 08/07/18 08:39 Hospitalization ordered by Clinton Miller for Observation. Preliminary diagnosis is Chest pain, unspecified. - Bed requested for Telemetry/MedSurg (observation). - Status is Observation. em - Condition is Stable. - Problem is new. - Symptoms have improved. UTI on Admission? No Signatures: Dispatcher [employer] EDMS Juan, Wilfredo, TELEPHONE MAINTENANCE MECHANIC TELEPHONE MAINTENANCE MECHANIC em Davon, Stefan em1 Dinora Bashir, RN RN ss Chandana Prasad PA PA cp Starr, Gregory, MD MD gs Davies, Jonathon, RN RN jIlana Hall cc3 Corrections: (The following items were deleted from the chart) 08/07 09:41 08:39 Hospitalization Ordered by Clinton Miller MD for Observation. Preliminary diagnosis em1 is Chest pain, unspecified. Bed requested for Telemetry/MedSurg (observation). Status is Observation. Condition is Stable. Problem is new. Symptoms have improved. UTI on Admission? No. cp 10:59 09:41 08/07/2018 08:39 Hospitalization Ordered by Clinton Miller MD for Observation. em Preliminary diagnosis is Chest pain, unspecified. Bed requested for Telemetry/MedSurg (observation). Status is Observation. Condition is Stable. Problem is new. Symptoms have improved. UTI on Admission? No. em1
[2018-08-07] MEDS ORDERED: NITROGLYCERIN 0.4 MG/TAB SL PRN (09:03)
[2018-08-07] MEDS ORDERED: ACETAMINOPHEN 500 MG TAB PO PRN (09:03)
--- NOTE | 2018-08-07 09:19 | RAD REPORT ---
EXAM DESCRIPTION: Felix Single View08/07/2018 7:07 am CLINICAL HISTORY: Chest pain COMPARISON: 2017 FINDINGS: The lungs appear clear of acute infiltrate. The heart is normal size IMPRESSION: No acute abnormalities displayed
[2018-08-07] MEDS ORDERED: PROMETHAZINE 25 MG/ML VIAL ONE (09:57)
[2018-08-07] MEDS ORDERED: FENTANYL CITR 100 MCG/2 ML ONE (09:57)
[2018-08-07] MEDS ORDERED: PANTOPRAZOLE 40 MG INJ ONE (09:57)
[2018-08-07] MEDS: INSULIN -REGULAR HUMAN 50 UNIT/0.5 ML ML SQ SCH ×3 (11:30→21:00)
[2018-08-07 12:02] LABS: HDL Cholesterol 50 mg/dL (40-60); LDL Cholesterol, Calculated 89 (<130); Troponin I < 0.02 ng/mL (0.0-0.045)
[2018-08-07] MEDS: MORPHINE 2 MG/ML SYR IV PRN ×3 (12:18→22:25)
--- NOTE | 2018-08-07 14:13 | ECHO ---
HEIGHT: 5 ft 2 in WEIGHT: 228 lb 0 oz DATE OF STUDY: 08/07/[address]: Clinton Miller MD 2-DIMENSIONAL: YES M.MODE: YES DOPPLER: YES COLOR FLOW: YES TDS: NO PORTABLE: NO DEFINITY: NO BUBBLE STUDY: NO DIAGNOSIS: CHEST PAIN CARDIAC HISTORY: CATHERIZATION: NO SURGERY: NO PROSTHETIC VALVE: NO PACEMAKER: NO MEASUREMENTS (cm) DIASTOLIC (NORMALS) SYSTOLIC (NORMALS) IVSd 1.1 (0.6-1.2) LA Diam 3.6 (1.9-4.0) LVEF 69% LVIDd 4.5 (3.5-5.7) LVIDs 2.8 (2.0-3.5) %FS 38% LVPWd 1.2 (0.6-1.2) Ao Diam 2.6 (2.0-3.7) 2 DIMENSIONAL ASSESSMENT: RIGHT ATRIUM: NORMAL LEFT ATRIUM: NORMAL RIGHT VENTRICLE: NORMAL LEFT VENTRICLE: NORMAL TRICUSPID VALVE: NORMAL MITRAL VALVE: NORMAL PULMONIC VALVE: NORMAL AORTIC VALVE: NORMAL PERICARDIAL EFFUSION: NONE AORTIC ROOT: NORMAL LEFT VENTRICULAR WALL MOTION: NORMAL. DOPPLER/COLOR FLOW: MILD MITRAL AND TRICUSPID REGURGITATION. NORMAL RIGHT VENTRICULAR SYSTOLIC PRESSURE. COMMENTS: NORMAL 2D ECHO. MILD MITRAL AND TRICUSPID REGURGITATION. TECHNOLOGIST: JENI BAILEY
--- NOTE | 2018-08-07 14:15 | EKG ---
Test Date: 2018-08-07 Test Time: 06:32:13 Music Cataloguer: MARLEEN MEASUREMENT RESULTS: Intervals: Rate: 60 HI: 138 QRSD: 92 QT: 418 QTc: 418 [place]: P: 8 HI: 138 QRS: 51 T: 36 INTERPRETIVE STATEMENTS: Normal sinus rhythm Low QRS voltage Abnormal ECG Electronically Signed On 08-07-18 14:14:11 [employer] by Chaim Pitts Electronically Signed On 08-07-18 14:15:33 [employer] by Chaim Pitts Compared to ECG 10/13/2016 14:38:44 Low QRS voltage now present Electronically Signed On 08-07-18 16:21:09 [employer] by Chaim Pitts
[2018-08-07] MEDS ORDERED: FENTANYL CITR 100 MCG/2 ML IV ONE (15:00)
[2018-08-07 15:21] VITALS: BMI 41.7
--- NOTE | 2018-08-07 15:35 | RAD REPORT ---
EXAM DESCRIPTION: US - Extrem Venous W Compress Michael - 08/07/2018 3:24 pm CLINICAL HISTORY: leg swelling, rule out DVT Bilateral leg edema and swelling. COMPARISON: Extremity Venous Uni Ltd dated 08/08/2017 TECHNIQUE: Real-time sonographic interrogation of the left and right lower extremity deep venous sys tems was performed. FINDINGS: Normal compressibility, flow augmentation, phasic flow and spontaneous flow is identified in both the left and right lower extremity deep venous systems. Small right Gaspar's cyst. IMPRESSION: No sonographic evidence of left or right lower extremity deep venous thrombosis.
[2018-08-07] MEDS ORDERED: ENOXAPARIN 40 MG/0.4 ML SQ SCH (17:00)
[2018-08-07] MEDS ORDERED: TEMAZEPAM 15 MG CAP PO PRN (17:28)
[2018-08-07] MEDS ORDERED: LORazepam 2 MG/ML VIAL IV ONE (19:00)
[2018-08-07] MEDS: ENOXAPARIN 60 MG/0.6 ML SQ SCH ×2 (19:01→20:52)
[2018-08-07] MEDS: PROMETHAZINE 25 MG/ML VIAL IV PRN (19:03)
--- NOTE | 2018-08-07 19:04 | CON ---
Chief Complaint: Fatigue, chest pain, and nausea and vomiting. History Of Present Illness: Ms. Aguilar started feeling ill last night, could not eat, wanted to throw up. This morning, she felt worse, had to loop puller to the side of the road when she was driving thi s morning and then came right into the ER. She came to the hospital and since being here, her electr ocardiogram and enzymes are all fine. Not having any evidence of acute NH or unstable angina. The p atient's chest pain seemed to be more epigastric, not classic for angina at all. The patient has nev er had any kind of heart disease. About 8 months ago, she underwent gastric bypass surgery. She did some cardiac testing before that and it was normal, and since that time, she has not had any angina. She has lost 70 pounds. She is becoming able to get rid of some of her medicines, especially the d iabetes medicines, and her blood sugars are only around 80. We do not have her updated medication li st at this point. Medicine list in the chart has things that have clearly been stopped. The ER medi cine list for Ms. Aguilar says she takes diltiazem 240, estradiol, levothyroxine, metformin, and Proton ix. I believe she takes some vitamins. She has a history of bipolar disorder, morbid obesity, chron ic constipation, diabetes, dyslipidemia, hypertension, hypothyroidism, migraines, peripheral neuropat hy, and sleep apnea. She has had hysterectomy, cholecystectomy, , right knee surgery, right thumb surgery, and a gastric bypass. She is allergic to Ketoralac, latex and other forms of natural rubber. Physical Examination: General: She is 228 pounds, 5 feet 2, obese, alert, oriented, not in distress. Lungs: Clear. Cardiac: Within normal limits. Abdomen: Soft. Extremities: Palpable distal pulses. No cyanosis, clubbing, or edema. Laboratory Data: Hemoglobin 13.3, eosinophils 4.7. Her total cholesterol is 153, HDL is 50, creatin ine is 0.6, estimated GFR more than 90, glucose 89. Impression: Ms. Aguilar is not having unstable angina. If she continues to have a normal EKG and enzy mes tomorrow, we could consider outpatient testing to see if she has ischemic heart disease. Erlin berry, her symptoms seem to be more consistent with a viral infection. SH/MODL Voice ID: [id number] Report ID: [id number]
[2018-08-07 19:55] LABS: Urine Appearance CLOUDY; Urine Bilirubin NEGATIVE (NEG); Urine Blood NEGATIVE (NEG); Urine Color YELLOW; Urine Glucose NEGATIVE (NEG); Urine Protein NEGATIVE (NEG)
[2018-08-07 20:03] LABS: Urine Microscopic Reflex ORDER UMIC
[2018-08-07 20:17] LABS: Urine Bacteria LOADED /HPF (<20); Urine Culture Reflex Order REFLEXED; Urine Mucus 1+ /HPF (NONE SEEN); Urine RBC <5 /HPF (NONE SEEN)
[2018-08-07] MEDS: DIPHENHYDRAMINE 25 MG TAB/CAP PO PRN (20:57)
[2018-08-07] MEDS ORDERED: ROPINIROLE HCL 0.25 MG TAB PO SCH (21:00)
[2018-08-07] MEDS ORDERED: HOME MED 1 EA UNK (Ropinirole Hcl [Requip] 0.5 MG) PO SCH (21:00)
[2018-08-07] MEDS ORDERED: HYDROXYZINE HCL 100 MG PO SCH (21:00)
[2018-08-07] MEDS ORDERED: METOPROLOL TAR 25 MG TAB PO SCH (21:00)
[2018-08-07] MEDS ORDERED: ATORVASTATIN 40 MG TAB PO SCH (21:00)
[2018-08-07] MEDS ORDERED: TEMAZEPAM 7.5 MG PO SCH (21:00)
[2018-08-07] MEDS ORDERED: hydrOXYzine HCl 25 MG TAB PO SCH (21:00)
--- NOTE | 2018-08-08 00:19 | HP ---
Date of Admission: 08/07/2018 Consultants: Cardiology, Dr. Pitts. Primary Care Physician: Matthew Walton D.O. Chief Complaint: Chest pain, generalized malaise. History Of Present Illness: The patient is a 48-year-old female with past medical history of hyperte nsion; diabetes; obstructive sleep apnea, on CPAP; GERD; anemia; bipolar disorder, who was in her [facility] until the night prior to admission when the patient had sudden onset of chest tigh tness which was all across her chest radiating to her arm. She also reported some tingling in her mo uth along with some generalized malaise. She did report some shortness of breath and felt that her h eart was 'racing.' The patient otherwise denies any fever or chills. The patient then otherwise com es in due to worsening symptoms which were constant, moderate, and progressive. The patient does rep ort some nausea, but no vomiting. In the ER, her vital signs were stable. Her workup revealed negat ellyn cardiac enzymes. Her chest x-ray was clear. EKG, however, did show some nonspecific changes. T he patient was then referred for admission for chest pain, rule out ACS. When seen in the ER, she wa s awake, alert, oriented x3, in some moderate distress, morbidly obese female. Past Medical History: Hypertension; diabetes mellitus, type 2, [id number]; obstructive sl eep apnea, on CPAP; irritable bowel syndrome; gastroesophageal reflux disease; anemia; history of uri nary retention; bipolar disorder; depression. Past Surgical History: Cholecystectomy, hysterectomy, left breast biopsy, D and C, right total knee replacement, gastric bypass surgery; and hysterectomy Allergies: KETORALAC, CAUSES HIVES; MEPERIDINE AND SULFA, NAUSEA AND VOMITING; IODINE, CAUSES SHORTN ESS OF BREATH; LATEX RUBBER, CAUSES ITCHING. Medications: List reviewed. Social History: The patient is . Denies any current tobacco use, quit in 2012. No alcohol u se or illicit drug use. Family History: Father had heart disease and having a coronary artery bypass graft. Review of Systems: Eleven-point system reviewed, negative except as per HPI. Physical Examination: Vital Signs: Temperature 98.5, heart rate 63, blood pressure 140/81, respirations 20, O2 100% on thanh m air. General: Awake, alert, oriented x3. Some mild distress due to pain. Morbidly obese female. HEENT: Normocephalic, atraumatic. PERRLA, EOMI. Moist mucous membranes. The oropharynx is clear. Normal dentition. Conjunctiva is anicteric. Neck: Supple. No JVD. Trachea midline. CV: S1 and S2. Regular rate and rhythm. Peripheral pulse s present. No murmurs. Respiratory: Clear to auscultation bilaterally. No wheezing or stridor. No use of accessory muscle s. Gastrointestinal: Abdomen is soft, nontender, nondistended. Positive bowel sounds. No guarding or rigidity. Extremities: No clubbing, cyanosis, or edema. No calf tenderness. Neuro: Cranial nerves 2 through 12 intact grossly. No focal neurological deficit. Speech is normal . Skin: No rashes. Normal skin turgor. Psych: Mood is somewhat anxious. Affect is congruent with mood. Insight and judgment are good. Laboratory Data: Sodium 142, potassium 3.7, chloride 108, CO2 29, BUN 11, creatinine 0.6, glucose 89 , calcium 8.8, magnesium 2.2. Troponin, less than 0.02. Albumin 3.6. WBC 6.4, H and H 13.3 and 37. 8, platelets 242. Chest x-ray, personally reviewed, shows no acute abnormalities identified. Assessment And Plan: A 48-year-old female with, 1.Chest pain, to rule out acute coronary syndrome. We will start her on chest pain guidelines. We will monitor serial cardiac enzymes and electrocardiogram. We will consult Cardiology. The patient does have risk factors. The patient is diabetic, hypertensive, former smoker. She is on hormone the [facility]. We will obtain echocardiogram. 2.Shortness of breath. Chest x-ray is clear due to her risk factors, morbid obesity, as well as rickie ng on hormone therapy. We will obtain D-dimer and CT angio if positive. Rule out pulmonary embolus. 3.Morbid obesity. Body mass index 41.7, counseled. The patient is status post gastric bypass surge ry. 4.Diabetes mellitus, type 2, non-insulin requiring, without any complications. We will continue sli ding scale insulin and continue Accu-Cheks. 5.Essential hypertension. Resume home medications as appropriate. The patient states that her hear t rate does run low on the low side. 6.Obstructive sleep apnea, on CPAP. will be going home to get her CPAP. 7.Irritable bowel syndrome. 8.Gastroesophageal reflux disease without esophagitis. 9.Bipolar disorder. 10.Major depressive disorder, in remission. 11.Gastrointestinal and deep venous thrombosis prophylaxis addressed. Plan: We will admit the patient to Med-Surg, place as observation. VIRGILIO Voice ID: [id number]
[2018-08-08] MEDS: MORPHINE 2 MG/ML SYR IV PRN ×3 (02:16→12:19)
[2018-08-08] MEDS: PROMETHAZINE 25 MG/ML VIAL IV PRN ×2 (05:32→12:20)
[2018-08-08] MEDS ORDERED: LEVOTHYROXINE SOD 0.05 MG TABLET PO SCH (06:00)
[2018-08-08 06:17] LABS: Absolute Monocytes 0.4 K/uL (0.1-1.3); Absolute Neutrophil 3.3 K/uL (1.8-8.0); Basophils % 0.4 % (0-1.3); Eosinophils % 5.1 % (0-4.4); Hematocrit 35.4 % (36.0-45.0); Lymphocytes % 32.9 % (15.3-44.8); MCH 29.5 pg (27.0-35.0); MCV 84.6 fL (80-100); MPV 9.8 fL (7.6-11.3); Monocytes % 6.3 % (3.3-12.3); RBC Red Blood Cell Count 4.18 M/uL (3.86-4.86)
[2018-08-08 06:23] LABS: BUN Blood Urea Nitrogen 12 mg/dL (7-18); Bicarbonate 29 mmol/L (21-32); Glucose Level 101 mg/dL (74-106); Potassium 3.7 mmol/L (3.5-5.1); Sodium Level 143 mmol/L (136-145)
[2018-08-08] MEDS: INSULIN -REGULAR HUMAN 50 UNIT/0.5 ML ML SQ SCH ×2 (07:30→11:30)
[2018-08-08] MEDS: DIPHENHYDRAMINE 25 MG TAB/CAP PO PRN (07:44)
[2018-08-08] MEDS ORDERED: PANTOPRAZOLE 40MG TABLET PO SCH (09:00)
[2018-08-08] MEDS ORDERED: LISINOPRIL 20 MG TAB PO SCH (09:00)
[2018-08-08] MEDS ORDERED: ENOXAPARIN 100 MG/ML SYR SQ SCH (09:00)
[2018-08-08] MEDS ORDERED: CETIRIZINE HCL 5 MG TABLET PO SCH (09:00)
[2018-08-08] MEDS ORDERED: HOME MED 1 EA UNK (Linaclotide [Linzess] 290 MCG) PO SCH (09:00)
[2018-08-08] MEDS ORDERED: HOME MED 1 EA UNK (Cetirizine Hcl [Zyrtec] 10 MG) PO SCH (09:00)
--- NOTE | 2018-08-08 11:12 | RAD REPORT ---
EXAM DESCRIPTION: NM - Vent Perfusion VQ Scan - 08/08/2018 7:23 am CLINICAL HISTORY: rule out PE Chest pain, possible pulmonary embolism COMPARISON: Chest Single View dated 08/07/2018 TECHNIQUE: 13.7mCi Xe-133 gas inhaled and 7.4mCi Tc-MAA IV. Planar ventilation scan was performed in posterior projection after Xe-133 gas inhalation (wash-in, e quilibrium, and wash-out phases) followed by perfusion scan with Tc-MAA IV in multiple projections. Examination is correlated with recent chest radiograph. FINDINGS: Normal ventilation with appropriate wash-out and no significant air-trapping. No mismatched segmental perfusion defect. IMPRESSION: Very low probability of acute pulmonary embolism.
[2018-08-08 12:10] VITALS: BP 121/64; TEMP 97
--- NOTE | 2018-08-08 12:29 | RAD REPORT ---
EXAM DESCRIPTION: CT - Abdomen Pelvis Wo Contrast - 08/08/2018 11:22 am CLINICAL HISTORY: Abdominal pain. upper gastric pain COMPARISON: [facility] Protocol dated 07/03/2017; Abdomen Pelvis W Contrast dated 07/01/2017 TECHNIQUE: CT imaging of the abdomen and pelvis was performed without contrast. Solid organ, bowel a nd vascular assessment is limited due to lack of IV and oral contrast. All CT scans are performed using dose optimization technique as appropriate and may include automated exposure control or mA/KV adjustment according to patient size. FINDINGS: The lower lung peters are clear.The gallbladder surgically absent. Gastric bypass postsurg ical changes are present. The liver, spleen, pancreas, adrenal glands and kidneys are within normal limits for a limited non-co ntrast examination. No bowel obstruction, free air, free fluid or abscess. The appendix is normal. The osseous structures are within normal limits. IMPRESSION: No acute intra-abdominal or pelvic findings. A limited non-contrast examination was performed as detailed.
[2018-08-08 14:23] VITALS: O2SAT 94
--- NOTE | 2018-08-09 12:21 | DS ---
Date of Discharge: 08/08/2018 Receptionist Doctor'S Office: Dr. Pitts with Cardiology. Discharge Diagnoses: 1.Chest pain; acute coronary syndrome, ruled out. 2.Shortness of breath. V/Q scan negative for pulmonary embolism. 3.Morbid obesity, BMI 21.7. 4.Diabetes mellitus type 2, non-insulin requiring without any complication. 5.Essential hypertension. 6.Obstructive sleep apnea, on CPAP. 7.Bowel syndrome. 8.Gastroesophageal reflux disease without esophagitis. 9.Bipolar disorder. 10.Major depressive disorder, in remission. Hospital Course: The patient is a 48-year-old female with multiple comorbid conditions, comes in wit h chest pain, generalized malaise. The patient was admitted to rule out ACS. Her EKG did not show a ny ST elevations. Cardiac enzymes were negative. Echocardiogram was done, which showed EF of 69%. Mild mitral and tricuspid regurgitation. Dr. Pitts with Cardiology was consulted. He did not feel that this was acute coronary syndrome. The patient did complain of some shortness of breath. Her D- dimer was elevated. V/Q scan was done and she is allergic to iodine contrast. V/Q scan was negative , but with low probability for PE. Doppler sono was negative for DVT. The patient still had some sy mptoms regarding overall generalized malaise, otherwise, did not have any further chest pain. She al so reported some abdominal discomfort. CT scan of the abdomen and pelvis was done, which did not rosaura w any acute changes. The patient did display some pain seeking behavior, requesting fentanyl and mor phine by name and also Phenergan by name. The patient was then cleared for discharge from Cardiology standpoint. Medications: As per medication reconciliation list. Followup: Follow up with primary care physician in 2 to 3 days. Follow up with Dr. Pitts, cardiolo gist, in 2 weeks. Establish care with GI in 2 to 4 weeks. Return to ER for worsening condition. Diet: Diabetic diet. Activity: As tolerated. Physical Examination: General: Awake, alert, oriented, morbidly obese female. CV: S1, S2. No murmurs. Respiratory: Moving air well bilaterally. Abdomen: Obese, soft, nontender, nondistended. Positive bowel sounds. Extremities: No clubbing, cyanosis, or edema. Neuro: Nonfocal. SA/MODL Voice ID: [id number] Report ID: [id number]
== END 2018-08-08 16:05 | disposition home or self-care (01) ==
LOC: ER 06:17 → ERHOLD 08:40 → 4TH 10:48
PROVIDERS: ADMIT Family Medicine; ATTEND Family Medicine
DX: R07.9 Chest pain, unspecified (principal); R06.02 Shortness of breath; I10 Essential (primary) hypertension; E11.9 Type 2 diabetes mellitus without complications; G47.33 Obstructive sleep apnea (adult) (pediatric); K21.9 Gastro-esophageal reflux disease without esophagitis; F31.9 Bipolar disorder, unspecified; Z88.2 Allergy status to sulfonamides; Z91.040 Latex allergy status; E66.01 Morbid (severe) obesity due to excess calories; Z68.41 Body mass index [BMI] 40.0-44.9, adult; K58.9 Irritable bowel syndrome, unspecified; F32.9 Major depressive disorder, single episode, unspecified
CPT/HCPCS: 36415; 71045; 74176; 78582; 80048; 80061; 80076; 81003; 81015; 82962; 83690; 83735; 83880; 84484; 85025; 85379; 85610; 87077; 87086; 87088; 87186; 87804; 93005; 93306; 93970; 94760; 97163; 99285; A9540; A9558; C9113; G0378; J1650; J2270; J2405; J2550; J3010

== ENCOUNTER 2018-10-13 07:14 | Emergency (ER) | payer MEDICAID ==
--- OUTSIDE RECORDS SUMMARY | 2018-10-13 07:16 | XMS REPORT | Clinical Summary ---
:1970 Author Organization [facility] Address [address] [place] [address] Care Team Providers Name Role Phone Matthew [...] INFLUENZA VACCINE 04/08/2018 Results Not on fileafter 10/12/2017 Insurance Payer Benefit Plan / Group Subscriber ID Type Phone Address [facility] xxxxxxxxx HMO Advance Directives Patient has advance care planning documents on file. For more information, please contact:[address] [address]
--- OUTSIDE RECORDS SUMMARY | 2018-10-13 07:18 | XMS REPORT ---
:1970 Author Organization [facility] Address [address] [place] [address] Care Team Providers Name Role Phone UNKNOWN, [...] Type Clinicians Facility Department ID 2017-05-22 Inpatient [facility] [id number] 16:23:00 2017-12-23 2017-12-23 Emergency [facility] [id number] 15:29:00 15:29:00 [facility] 2017-07-30 2017-07-30 Outpatient [facility] [id number] 12:09:00 12:09:00 2017-07-09 2017-07-09 Outpatient [facility] [id number] 00:01:00 00:01:00 2017-06-17 2017-06-17 Outpatient [facility] [id number] 18:46:00 18:46:00 2017-06-08 2017-06-08 Outpatient [facility] [id number] 00:01:00 00:01:00 2017-06-06 2017-06-06 Outpatient [facility] [id number] 21:11:00 21:11:00 Results Test Description Test Time Test Comments Text Results Atomic Results Result Comments Lipase 2017-12-27 01:00:00 Test Item Value Reference Range Comments Lipase (test code=LIP) 28 U/L 13-60 Comprehensive Metabolic [id number] 01:00:00 Test Item Value Reference Range Comments [...] race is not provided, and the patient isAfrican-Tongan, multiply by 1.212. If sex is not [...] the National Kidney Foundation,http://nkdep.nih .gov BHCG, Urine, [id number] 00:45:00 Test Item Value Reference Range Comments Preg Qual [Ur] (test code=HUHCG) Negative Negative CBC with [id number] 00:44:00 Test Item Value Reference Range Comments [...] Lymph Abs (test code=ALYMPH) 2.6 K/cumm 0.5-4.6 Baxter Abs (test code=AMONO) 0.4 K/cumm 0.0-1.2 Eos Abs (test code=AEOS) 0.38 K/cumm 0.00-0.74 Baso Abs (test code=ABASO) 0.1 K/cumm 0.00-0.21 Urinalysis [id number] 00:32:00 Test Item Value Reference Range Comments Color (test code=COLOR) Yellow Yellow,Straw,Pl yellow Clarity (test code=CLAR) Sl Cloudy Clear Specific Oolitic (test code=SPGR) 1.016 1.001-1.035 pH (test code=PH) [...] /HPF 0-5 Bacteria (test code=BACT) Many /HPF [id number] 17:42:00 Test Item Value Reference Range Comments Lipase (test code=LIP) 28 U/L 13-60 Comprehensive Metabolic [id number] 17:42:00 Test Item Value Reference Range Comments [...] race is not provided, and the patient isAfrican-Tongan, multiply by 1.212. If sex is not [...] the National Kidney Foundation,http://nkdep.nih .gov CBC with [id number] 17:00:00 Test Item Value Reference Range Comments [...] Lymph Abs (test code=ALYMPH) 2.0 K/cumm 0.5-4.6 Baxter Abs (test code=AMONO) 0.3 K/cumm 0.0-1.2 Eos Abs (test code=AEOS) 0.34 K/cumm 0.00-0.74 Baso Abs (test code=ABASO) 0.0 K/cumm 0.00-0.21 06028& PELVIS W/O [id number] 16:47:19CT OF THE ABDOMEN AND PELVIS WITHOUT [...] absence of the gallbladder and uterus.POC Glucose, [id number] 07:45:00 Test Item Value Reference Range Comments POC Glucose (test 158 mg/dL 70-115 Notify RN or MDIf you consider code=POCGLUC) your patient critically ill, the Herm[place] Accu-Chek InformII metershould not be used for Glucose determinations.Draw a venous Glucose and send to the Main Lab for Analysis. POC Glucose, [id number] 20:31:00 Test Item Value Reference Range Comments POC Glucose (test 167 mg/dL 70-115 If you consider your patient code=POCGLUC) critically ill, the [place] Accu-Chek InformII metershould not be used for Glucose determinations.Draw a venous Glucose and send to the Main Lab for Analysis. POC Glucose, [id number] 16:44:00 Test Item Value Reference Range Comments POC Glucose (test 148 mg/dL 70-115 If you consider your patient code=POCGLUC) critically ill, the Herm[place] Accu-Chek InformII metershould not be used for Glucose determinations.Draw a venous Glucose and send to the Main Lab for Analysis. POC Glucose, [id number] 11:25:00 Test Item Value Reference Range Comments POC Glucose (test 173 mg/dL 70-115 If you consider your patient code=POCGLUC) critically ill, the [place] Accu-Chek InformII metershould not be used for Glucose determinations.Draw a venous Glucose and send to the Main Lab for Analysis. POC Glucose, [id number] 07:30:00 Test Item Value Reference Range Comments POC Glucose (test 191 mg/dL 70-115 If you consider your patient code=POCGLUC) critically ill, the Herm[place] Accu-Chek InformII metershould not be used for Glucose determinations.Draw a venous Glucose and send to the Main Lab for Analysis. POC Glucose, [id number] 06:33:00 Test Item Value Reference Range Comments POC Glucose (test 181 mg/dL 70-115 If you consider your patient code=POCGLUC) critically ill, the Herm[place] Accu-Chek InformII metershould not be used for Glucose determinations.Draw a venous Glucose and send to the Main Lab for Analysis. Comprehensive Metabolic [id number] 05:28:00 Test Item Value Reference Range Comments [...] race is not provided, and the patient isAfrican-Tongan, multiply by 1.212. If sex is not [...] the National Kidney Foundation,http://nkdep.nih .gov CBC with [id number] 05:03:00 Test Item Value Reference Range Comments [...] Lymph Abs (test code=ALYMPH) 1.6 K/cumm 0.5-4.6 Baxter Abs (test code=AMONO) 0.3 K/cumm 0.0-1.2 Eos Abs (test code=AEOS) 0.23 K/cumm 0.00-0.74 Baso Abs (test code=ABASO) 0.0 K/cumm 0.00-0.21 POC Glucose, [id number] 21:57:00 Test Item Value Reference Range Comments POC Glucose (test 176 mg/dL 70-115 If you consider your patient code=POCGLUC) critically ill, the Herm[place] Accu-Chek InformII metershould not be used for Glucose determinations.Draw a venous Glucose and send to the Main Lab for Analysis. POC Glucose, [id number] 16:25:00 Test Item Value Reference Range Comments POC Glucose (test 148 mg/dL 70-115 If you consider your patient code=POCGLUC) critically ill, the Herm[place] Accu-Chek InformII metershould not be used for Glucose determinations.Draw a venous Glucose and send to the Main Lab for Analysis. CT NECK SOFT TISSUE WO [id number] 15:49:06Exam: CT soft tissue neck withoutcontrast.Location: H2Golobhn: Neck painTechnique: Unenhanced spiral slices were taken through the neck.Sagittal and coronal reformations were performed. One or more ofthefollowing radiation dose reduction techniques was used: Automaticexposure control, adjustment of mA and/or KV according to the patient'ssize, and/or utilization of iterative reconstruction technique. Findings:The parotid space, carotid space, carpenter assistant installer space, prevertebral spaceand the fossa of Rosenm?ller are normal. The oral and hypopharynx areunremarkable.The salivary glands are normal. No sialadenitis or sialolithiasis isseen.The larynx and trachea are normal. The cervical and visualized thoracicesophagus is unremarkable. No lymphadenopathy is present in eitherjugular or either posterior chain.The thyroid gland is normal. The soft tissues are unremarkable.Impression:Unremarkable exam.CT CHEST W/O [id number] 15:45:29Exam: CT thorax withoutcontrast.Location: A1Ceqxbaf: Chest painTechnique: Unenhancedspiral slices were taken from [...] are notedImpression: Left lower lobe pneumonia.POC Glucose, [id number] 11:54:00 Test Item Value Reference Range Comments POC Glucose (test 200 mg/dL 70-115 If you consider your patient code=POCGLUC) critically ill, the [place] Accu-Chek InformII metershould not be used for Glucose determinations.Draw a venous Glucose and send to the Main Lab for Analysis. POC Glucose, [id number] 07:17:00 Test Item Value Reference Range Comments POC Glucose (test 180 mg/dL 70-115 If you consider your patient code=POCGLUC) critically ill, the Herm[place] Accu-Chek InformII metershould not be used for Glucose determinations.Draw a venous Glucose and send to the Main Lab for Analysis. Comprehensive Metabolic [id number] 06:33:00 Test Item Value Reference Range Comments [...] race is not provided, and the patient isAfrican-Tongan, multiply by 1.212. If sex is not [...] the National Kidney Foundation,http://nkdep.nih .gov CBC with [id number] 06:13:00 Test Item Value Reference Range Comments [...] Lymph Abs (test code=ALYMPH) 1.6 K/cumm 0.5-4.6 Baxter Abs (test code=AMONO) 0.4 K/cumm 0.0-1.2 Eos Abs (test code=AEOS) 0.31 K/cumm 0.00-0.74 Baso Abs (test code=ABASO) 0.0 K/cumm 0.00-0.21 POC Glucose, [id number] 23:37:00 Test Item Value Reference Range Comments POC Glucose (test 152 mg/dL 70-115 If you consider your patient code=POCGLUC) critically ill, the Herm[place]inda Accu-Chek InformII metershould not be used for Glucose determinations.Draw a venous Glucose and send to the Main Lab for Analysis. POC Glucose, [id number] 17:16:00 Test Item Value Reference Range Comments POC Glucose (test 170 mg/dL 70-115 If you consider your patient code=POCGLUC) critically ill, the Herm[place]inda Accu-Chek InformII metershould not be used for Glucose determinations.Draw a venous Glucose and send to the Main Lab for Analysis. D-Dimer, [id number] 15:56:00 Test Item Value Reference Range Comments D-Dimer, Quant (test code=DDQNT) 1610 ng/mL 0-500 17366&PERFUS [id number] 14:47:54Dictation location: R 16Clinical indication: Shortness of [...] of pulmonary emboli.US DUPLX EXT VEINS COMPRS, [id number] 12:42:18DICTATION LOCATION: [id number]: DVTCOMPARISON: None available.TECHNIQUE: Duplex sonography of theright [...] lower extremity.Small right Gaspar's cyst.XR CHEST 2V, [id number] 11:43:22EXAM: Chest x-ray, 2 viewsLOCATION: [id number]: Chest radiograph 12/04/2017 and 11/26/2017INDICATION: chest painDISCUSSION:PA [...] silhouette.3. Otherwise, no acute cardiopulmonary abnormalities.POC Glucose, [id number] 07:08:00 Test Item Value Reference Range Comments POC Glucose (test 201 mg/dL 70-115 Notify RN or MDIf you consider code=POCGLUC) your patient critically ill, the [place] Accu-Chek InformII metershould not be used for Glucose determinations.Draw a venous Glucose and send to the Main Lab for Analysis. POC Glucose, [id number] 00:19:00 Test Item Value Reference Range Comments POC Glucose (test 173 mg/dL 70-115 Notify RN or MDIf you consider code=POCGLUC) your patient critically ill, the Herm[place]inda Accu-Chek InformII metershould not be used for Glucose determinations.Draw a venous Glucose and send to the Main Lab for Analysis. POC Glucose, [id number] 21:49:00 Test Item Value Reference Range Comments POC Glucose (test 189 mg/dL 70-115 If you consider your patient code=POCGLUC) critically ill, the Herm[place] Accu-Chek InformII metershould not be used for Glucose determinations.Draw a venous Glucose and send to the Main Lab for Analysis. POC Glucose, [id number] 17:09:00 Test Item Value Reference Range Comments POC Glucose (test 193 mg/dL 70-115 Notify RN or MDIf you consider code=POCGLUC) your patient critically ill, the Hermelinda Accu-Chek InformII metershould not be used for Glucose determinations.Draw a venous Glucose and send to the Main Lab for Analysis. POC Glucose, [id number] 12:20:00 Test Item Value Reference Range Comments POC Glucose (test 166 mg/dL 70-115 If you consider your patient code=POCGLUC) critically ill, the Hermelinda Accu-Chek InformII metershould not be used for Glucose determinations.Draw a venous Glucose and send to the Main Lab for Analysis. POC Glucose, [id number] 09:03:00 Test Item Value Reference Range Comments POC Glucose (test 212 mg/dL 70-115 If you consider your patient code=POCGLUC) critically ill, the Hermelinda Accu-Chek InformII metershould not be used for Glucose determinations.Draw a venous Glucose and send to the Main Lab for Analysis. Comprehensive Metabolic [id number] 05:54:00 Test Item Value Reference Range Comments [...] race is not provided, and the patient isAfrican-Tongan, multiply by 1.212. If sex is not [...] the National Kidney Foundation,http://nkdep.nih .gov CBC with [id number] 05:40:00 Test Item Value Reference Range Comments [...] Lymph Abs (test code=ALYMPH) 1.7 K/cumm 0.5-4.6 Baxter Abs (test code=AMONO) 0.9 K/cumm 0.0-1.2 Eos Abs (test code=AEOS) 0.04 K/cumm 0.00-0.74 Baso Abs (test code=ABASO) 0.0 K/cumm 0.00-0.21 POC Glucose, [id number] 05:04:00 Test Item Value Reference Range Comments POC Glucose (test 202 mg/dL 70-115 If you consider your patient code=POCGLUC) critically ill, the Herm[place] Accu-Chek InformII metershould not be used for Glucose determinations.Draw a venous Glucose and send to the Main Lab for Analysis. XR CHEST 1 [id number] 03:04:28AFTER HOURS SERVICE ON: 12/04/2017 3:04 AMAP Portable ChestLocation Code [id number]: Status Post Lap Gastric BypassFINDINGS: There are no infiltrates. There are no pleural effusions. There is nopneumothorax. Cardiac silhouette and mediastinum appear within normallimits. Surgical drain is noted projecting over the mid abdomen and leftupper quadrant.IMPRESSION: No active intrathoracic findings.POC Glucose, [id number] 02:06:00 Test Item Value Reference Range Comments POC Glucose (test 213 mg/dL 70-115 If you consider your patient code=POCGLUC) critically ill, the Herm[place] Accu-Chek InformII metershould not be used for Glucose determinations.Draw a venous Glucose and send to the Main Lab for Analysis. POC Glucose, [id number] 21:15:00 Test Item Value Reference Range Comments POC Glucose (test 236 mg/dL 70-115 If you consider your patient code=POCGLUC) critically ill, the Herm[place]inda Accu-Chek InformII metershould not be used for Glucose determinations.Draw a venous Glucose and send to the Main Lab for Analysis. POC Glucose, [id number] 16:03:00 Test Item Value Reference Range Comments POC Glucose (test 235 mg/dL 70-115 If you consider your patient code=POCGLUC) critically ill, the Herm[place]inda Accu-Chek InformII metershould not be used for Glucose determinations.Draw a venous Glucose and send to the Main Lab for Analysis. POC Glucose, [id number] 11:24:00 Test Item Value Reference Range Comments POC Glucose (test 269 mg/dL 70-115 If you consider your patient code=POCGLUC) critically ill, the Hermelinda Accu-Chek InformII metershould not be used for Glucose determinations.Draw a venous Glucose and send to the Main Lab for Analysis. XR CHEST 2 [id number] 18:35:18CLINICAL INFORMATION: Preprocedural evaluation. Checkup..Dictation Location: R 16Comparison: No prior.Findings: The heart size and pulmonary vessels are unremarkable.No active consolidation, effusion, or soft tissue mass is identified.Mild vertebral spurring.IMPRESSION: No active disease of the heart or lungs identified.Basic Metabolic [id number] 18:23:00 Test Item Value Reference Range [...] race is not provided, and the patient isAfrican-Tongan, multiply by 1.212. If sex is not [...] the National Kidney Foundation,http://nkdep.nih .gov CBC with [id number] 18:08:00 Test Item Value Reference Range Comments [...] Lymph Abs (test code=ALYMPH) 2.0 K/cumm 0.5-4.6 Baxter Abs (test code=AMONO) 0.3 K/cumm 0.0-1.2 Eos Abs (test code=AEOS) 0.14 K/cumm 0.00-0.74 Baso Abs (test code=ABASO) 0.0 K/cumm 0.00-0.21 US DUPLX EXT VEIN COMPRS, [id number] 13:22:06DICTATION LOCATION: [id number]: I82.409: ACUTE EMBOLISM AND THOMBOS UNSP DEEP [...]
[2018-10-13 08:14] LABS: Urine Blood NEGATIVE (NEG); Urine Glucose NEGATIVE (NEG); Urine Protein NEGATIVE (NEG); Urine pH 5.5 (5.0-7.0)
[2018-10-13 08:16] LABS: Absolute Lymphocytes (CBC) 1.4 K/uL (0.7-4.9); Absolute Monocytes 0.4 K/uL (0.1-1.3); Absolute Neutrophil 3.1 K/uL (1.8-8.0); Basophils % 0.7 % (0-1.3); Eosinophils % 4.1 % (0-4.4); Hematocrit 35.9 % (36.0-45.0); Lymphocytes % 28.1 % (15.3-44.8); MPV 9.3 fL (7.6-11.3); Monocytes % 7.3 % (3.3-12.3); RBC Red Blood Cell Count 4.28 M/uL (3.86-4.86)
[2018-10-13 08:17] LABS: Urine Bacteria >50 /HPF (<20); Urine Culture Reflex Order REFLEXED; Urine RBC NONE SEEN /HPF (NONE SEEN)
[2018-10-13 08:35] LABS: BUN Blood Urea Nitrogen 11 mg/dL (7-18); Bicarbonate 31 mmol/L (21-32); Glucose Level 71 mg/dL (74-106); Sodium Level 143 mmol/L (136-145); Troponin (Emerg Dept Use Only) < 0.02 ng/mL (0.0-0.045)
--- NOTE | 2018-10-13 08:43 | RAD REPORT ---
EXAM DESCRIPTION: Felix Sanchez (2 Views)10/13/2018 8:27 am CLINICAL HISTORY: Chest pain COMPARISON: July 2018 FINDINGS: The lungs appear clear of acute infiltrate. The heart is normal size IMPRESSION: No acute abnormalities displayed
--- NOTE | 2018-10-13 09:33 | ER ---
Nurse's Notes [facility] Name: Kat Aguilar Age: 48 yrs Sex: Female : 1970 Arrival Date: 10/13/2018 Time: 07:16 Bed 8 Private MD: Diagnosis: Chest pain, unspecified Presentation: 10/13 07:35 Presenting complaint: Patient states: Left sided chest pain that radiates to left arm hb since yesterday. Transition of care: patient was not received from another setting of care. Onset of symptoms was October 12, 2018. Risk Assessment: Do you want to hurt yourself or someone else? Patient reports no desire to harm self or others. Initial Sepsis Screen: Does the patient meet any 2 criteria? No. Patient's initial sepsis screen is negative. Does the patient have a suspected source of infection? No. Patient's initial sepsis screen is negative. Care prior to arrival: None. 07:35 Method Of Arrival: Ambulatory hb 07:35 Acuity: JADNY 3 hb Historical: - Allergies: 08:09 IV contrast; hb 08:09 Latex, Natural Rubber; hb 08:09 NSAIDS; hb 08:09 Sulfa (Sulfonamide Antibiotics); hb 08:09 Toradol; hb 08:09 Demerol; hb - Home Meds: 08:09 diltiazem HCl 240 mg Oral cpER 1 cap once daily [Active]; estradiol 1 mg Oral tab hb [Active]; levothyroxine 25 mcg tab 1 tab once daily [Active]; metformin 1,000 mg Oral tab 1 tab 1 time a day [Active]; Protonix 40 mg Oral TbEC 1 tab once daily [Active]; - PMHx: 08:09 Back pain; Bipolar disorder; chronic constipation; Diabetes - NIDDM; High Cholesterol; hb Hypertension; Hypothyroidism; Migraines; PERIPHERAL NEUROPATHY; Sleep Apnea; - PSHx: 08:09 bariatric surgery; Hysterectomy; Cholecystectomy; ; right knee surgery; right hb thumb surgery; - Immunization history:: Adult Immunizations up to date. - Social history:: Smoking status: Patient/guardian denies using tobacco. - Ebola Screening: : No symptoms or risks identified at this time. - Family history:: not pertinent. - Hospitalizations: : No recent hospitalization is reported. Screenin:47 Abuse screen: Denies threats or abuse. Denies injuries from another. Nutritional hb screening: No deficits noted. Tuberculosis screening: No symptoms or risk factors identified. Fall Risk None identified. Assessment: 07:45 General: Appears in no apparent distress. uncomfortable, Behavior is cooperative, hb crying. Pain: Complains of pain in chest Pain radiates to left arm Pain currently is 5 out of 10 on a pain scale. Quality of pain is described as sharp, Pain began suddenly, 1 day ago. Aggravated by breathing. Neuro: Level of Consciousness is awake, alert, obeys commands, Oriented to person, place, time, situation. Cardiovascular: Heart tones S1 S2 present Capillary refill < 3 seconds Patient's skin is warm and dry. Respiratory: Airway is patent Respiratory effort is even, unlabored, Respiratory pattern is regular, symmetrical, Breath sounds are clear bilaterally. GI: No signs and/or symptoms were reported involving the gastrointestinal system. : No signs and/or symptoms were reported regarding the genitourinary system. EENT: No signs and/or symptoms were reported regarding the EENT system. Derm: No signs and/or symptoms reported regarding the dermatologic system. Skin is intact, is healthy with good turgor, Skin is pink, warm \T\ dry. Musculoskeletal: No signs and/or symptoms reported regarding the musculoskeletal system. 09:00 Reassessment: Patient appears in no apparent distress at this time. Patient and/or ph family updated on plan of care and expected duration. Pain level reassessed. Patient is alert, oriented x 3, equal unlabored respirations, skin warm/dry/pink. 10:06 Reassessment: Patient appears in no apparent distress at this time. Patient and/or ph family updated on plan of care and expected duration. Pain level reassessed. Patient is alert, oriented x 3, equal unlabored respirations, skin warm/dry/pink. Pt resting quietly, awaiting completion of IV fluids prior to d/c. Vital Signs: 07:35 BP 134 / 69; Pulse 59; Resp 16; Temp 97.8; Pulse Ox 96% on R/A; Pain 5/10; hb 09:00 BP 142 / 72; Pulse 56; Resp 18; Pulse Ox 97% on R/A; ph 10:08 BP 127 / 64; Pulse 59; Resp 18; Pulse Ox 97% on R/A; ph ED Course: 07:16 Patient arrived in ED. as 07:20 Arm band placed on Patient placed in an exam room, on a stretcher. aa5 07:25 Luis Angel Hernandez MD is Attending Physician. rn 07:37 EKG done, by unit technician. reviewed by Luis Angel Hernandez MD. at1 07:45 Patient has correct armband on for positive identification. Placed in gown. Bed in low hb position. Call light in reach. Side rails up X 1. hoop punch operator helper on. Pulse ox on. NIBP on. 07:45 Patient maintains SpO2 saturation greater than 95% on room air. hb 07:49 Kassi Horton, RN is Primary Nurse. hb 07:50 Inserted saline lock: 22 gauge in left antecubital area, using aseptic technique. Blood hb collected. 08:02 Triage completed. hb 08:20 Patient moved to radiology via wheelchair. sw 08:23 X-ray completed. Portable x-ray completed in exam room. Patient tolerated procedure sw well. Patient moved back from radiology. 08:24 XRAY Chest Pa And Lat (2 Views) In Process Unspecified. EDMS 10:49 No provider procedures requiring assistance completed. IV discontinued, intact, hb bleeding controlled, No redness/swelling at site. Pressure dressing applied. Administered Medications: 10:04 Drug: NS 0.9% 500 ml Route: IV; Rate: bolus; Site: left antecubital; ph 10:45 Follow up: Response: No adverse reaction; IV Status: Completed infusion hb 10:05 Drug: Potassium Chloride 40 mEq Route: PO; ph 11:00 Follow up: Response: No adverse reaction hb 10:05 Drug: [place] 5 mg-325 mg 1 tabs Route: PO; ph 11:00 Follow up: Response: No adverse reaction hb Outcome: 09:33 Discharge ordered by . rn 10:49 Discharged to home ambulatory. hb 10:49 Condition: stable 10:49 Discharge instructions given to patient, Instructed on discharge instructions, follow up and referral plans. medication usage, Demonstrated understanding of instructions, follow-up care, medications. 10:50 Patient left the ED. hb Addendum: 10/16/2018 12:36 Addendum: Culture Results: Positive urine culture. Phone call Attempt #1 no answer h b [phone]. 12:52 Addendum: Culture Results: Positive urine culture. Phone call Prescription called-in to b pharmacy of choice. Macrobid 100mg 1 tab PO BID x 7 days, called in to [facility] [place]. Signatures: Dispatcher [employer] Veronica Stern Roman, MD MD rn Calderon, Lilibeth RN RN aa5 Cristiana Castro, tufter EKG Tat1 Marianela Young RN RN Rox Saxena Kassi Horton RN RN
--- NOTE | 2018-10-13 09:34 | EDPHYS ---
Physician Documentation [facility] Name: Kat Aguilar Age: 48 yrs Sex: Female : 1970 Arrival Date: 10/13/2018 Time: 07:16 Bed 8 Private MD: ED Physician Luis Angel Hernandez HPI: 10/13 08:24 This 48 yrs old Female presents to ER via Ambulatory with complaints of Chest rn Pain, Chest Tightness. 08:24 The patient or guardian reports chest pain that is located primarily in the anterior rn chest wall. The patient or guardian reports chest pain that is located primarily in the anterior chest wall, left. Onset: at an unknown time. The pain does not radiate. Associated signs and symptoms: The patient has no apparent associated signs or symptoms, Pertinent negatives: abdominal pain, cough, diaphoresis, palpitations, shortness of breath, syncope, vomiting. The chest pain is described as aching. Duration: The patient or guardian reports multiple episodes, that are intermittent. Severity of pain: At its worst the pain was moderate in the emergency department the pain has improved. The patient has experienced similar episodes in the past. REports generalized fatigue and malaise, recently admitted to hospital here, had negative ECHO/V/Q scan/ct abdomen, discharged by cardiology, now has outpt appt in 13 days with cardiology for outpt cath. Reports has been having pain since the hospitalization, at times constant for 3 days, no sob/cough/fever/abd pain/vomiting/diarrhea.. Historical: - Allergies: 08:09 IV contrast; hb 08:09 Latex, Natural Rubber; hb 08:09 NSAIDS; hb 08:09 Sulfa (Sulfonamide Antibiotics); hb 08:09 Toradol; hb 08:09 Demerol; hb - Home Meds: 08:09 diltiazem HCl 240 mg Oral cpER 1 cap once daily [Active]; estradiol 1 mg Oral tab hb [Active]; levothyroxine 25 mcg tab 1 tab once daily [Active]; metformin 1,000 mg Oral tab 1 tab 1 time a day [Active]; Protonix 40 mg Oral TbEC 1 tab once daily [Active]; - PMHx: 08:09 Back pain; Bipolar disorder; chronic constipation; Diabetes - NIDDM; High Cholesterol; hb Hypertension; Hypothyroidism; Migraines; PERIPHERAL NEUROPATHY; Sleep Apnea; - PSHx: 08:09 bariatric surgery; Hysterectomy; Cholecystectomy; ; right knee surgery; right hb thumb surgery; - Immunization history:: Adult Immunizations up to date. - Social history:: Smoking status: Patient/guardian denies using tobacco. - Ebola Screening: : No symptoms or risks identified at this time. - Family history:: not pertinent. - Hospitalizations: : No recent hospitalization is reported. ROS: 08:24 Constitutional: Negative for fever, chills, and weight loss, Eyes: Negative for injury, rn pain, redness, and discharge, Neck: Negative for injury, pain, and swelling, Cardiovascular: Negative for palpitations, and edema, Respiratory: Negative for shortness of breath, cough, wheezing, and pleuritic chest pain, Abdomen/GI: Negative for abdominal pain, nausea, vomiting, diarrhea, and constipation, MS/Extremity: Negative for injury and deformity, Skin: Negative for injury, rash, and discoloration, Neuro: Negative for headache, numbness, tingling, and seizure. Exam: 07:55 ECG was reviewed by the Attending Physician. rn 08:24 Constitutional: This is a well developed, well nourished patient who is awake, alert, rn and in no acute distress. Anxious and tearful. Head/Face: Normocephalic, atraumatic. Eyes: Pupils equal round and reactive to light, extra-ocular motions intact. Periorbital areas with no swelling, redness, or edema. ENT: MMM, no stridor Cardiovascular: Regular rate and rhythm. No pulse deficits. Respiratory: Lungs have equal breath sounds bilaterally, clear to auscultation. No increased work of breathing, no retractions or nasal flaring. Abdomen/GI: soft, non-tender Skin: Warm, dry with normal turgor. Normal color with no rashes, no lesions, and no evidence of cellulitis. MS/ Extremity: Pulses equal, no cyanosis. Neurovascular intact. Full, normal range of motion. Equal circumference. Neuro: Awake and alert, GCS 15, oriented to person, place, time, and situation. Cranial nerves II-XII grossly intact. Motor strength 5/5 in all extremities. Sensory grossly intact. Cerebellar exam normal. Vital Signs: 07:35 BP 134 / 69; Pulse 59; Resp 16; Temp 97.8; Pulse Ox 96% on R/A; Pain 5/10; hb 09:00 BP 142 / 72; Pulse 56; Resp 18; Pulse Ox 97% on R/A; ph 10:08 BP 127 / 64; Pulse 59; Resp 18; Pulse Ox 97% on R/A; ph MDM: 07:25 Patient medically screened. rn 09:31 Differential diagnosis: acute myocardial infarction, acute pericarditis, anxiety, rn coronary artery disease chest wall pain, costochondritis, esophagitis, gastritis, gastroesophageal reflux disease (GERD), pleurisy, pneumothorax. Data reviewed: vital signs, nurses notes, old medical records, lab test result(s), EKG, radiologic studies, plain films, and as a result, I will discharge patient. Counseling: I had a detailed discussion with the patient and/or guardian regarding: the historical points, exam findings, and any diagnostic results supporting the discharge/admit diagnosis, lab results, radiology results, the need for outpatient follow up, to return to the emergency department if symptoms worsen or persist or if there are any questions or concerns that arise at home. Special discussion: Based on the patient's history, exam, and Dx evaluation, there is no indication for emergent intervention or inpatient Tx. It is understood by the patient/guardian that if the Sx's persist or worsen they need to return immediately for re-evaluation. I discussed with the patient/guardian in detail that at this point there is no indication for admission to the hospital. It is understood, however, that if the symptoms persist or worsen the patient needs to return immediately for re-evaluation. ED course: Pt seen for these symptoms, had SC and PE ruled out, neg w/u for abd source, had outpt cath scheduled, trop neg here, no ischemia on ecg, will dc home with cardiology f/u. . 10/13 07:42 Order name: CBC with Diff; Complete Time: 08:53 rn 10/13 07:42 Order name: Basic Metabolic Panel; Complete Time: 08:53 rn 10/13 07:42 Order name: Urine Microscopic Only; Complete Time: 08:53 rn 10/13 07:42 Order name: Troponin (emerg Dept Use Only); Complete Time: 08:53 rn 10/13 07:52 Order name: Urine Dipstick--Ancillary (enter results); Complete Time: 08:53 bd 10/13 07:52 Order name: Urine --Ancillary (enter results); Complete Time: 08:53 bd 10/13 07:42 Order name: IV Start; Complete Time: 08:00 rn 10/13 07:42 Order name: Urine Test (obtain specimen); Complete Time: 07:50 rn 10/13 07:42 Order name: EKG; Complete Time: 07:43 rn 10/13 07:42 Order name: XRAY Chest Pa And Lat (2 Views); Complete Time: 08:53 rn 10/13 08:19 Order name: Urine Culture [facility] 10/13 07:42 Order name: Urine Dipstick-Ancillary (obtain specimen); Complete Time: 07:50 rn 10/13 07:42 Order name: EKG - Nurse/Tech; Complete Time: 07:49 rn EC:55 Rate is 56 beats/min. Rhythm is regular. QRS Erin is Normal. IA interval is normal. QRS rn interval is normal. QT interval is normal. No Q waves. T waves are Normal. No ST changes noted. Clinical impression: Sinus bradycardia. Interpreted by me. Administered Medications: 10:04 Drug: NS 0.9% 500 ml Route: IV; Rate: bolus; Site: left antecubital; ph 10:45 Follow up: Response: No adverse reaction; IV Status: Completed infusion hb 10:05 Drug: Potassium Chloride 40 mEq Route: PO; ph 11:00 Follow up: Response: No adverse reaction hb 10:05 Drug: [place] 5 mg-325 mg 1 tabs Route: PO; ph 11:00 Follow up: Response: No adverse reaction hb Disposition: 10/13/18 09:33 Discharged to Home. Impression: Chest pain, unspecified. - Condition is Stable. - Discharge Instructions: Nonspecific Chest Pain. - Medication Reconciliation Form, Thank You Letter, Antibiotic Education, Prescription Opioid Use, Family Work Release form. - Follow up: Private Physician; When: As needed; Reason: Recheck today's complaints, Re-evaluation by your physician. - Problem is an ongoing problem. - Symptoms have improved. Signatures: Dispatcher [employer] [facility] Luis Angel Hernandez MD MD rn Hall, Patricia, RN RN Kassi Horton RN RN Corrections: (The following items were deleted from the chart) 08:26 08:24 Constitutional: Negative for fever, chills, and weight loss, Eyes: Negative for rn injury, pain, redness, and discharge, Neck: Negative for injury, pain, and swelling, Cardiovascular: Negative for palpitations, and edema, Respiratory: Negative for shortness of breath, cough, wheezing, and pleuritic chest pain, Abdomen/GI: Negative for abdominal pain, nausea, vomiting, diarrhea, and constipation, MS/Extremity: Negative for injury and deformity, Skin: Negative for injury, rash, and discoloration, Neuro: Negative for headache, weakness, numbness, tingling, and seizure, rn 10:50 09:33 10/13/2018 09:33 Discharged to Home. Impression: Chest pain, unspecified. hb Condition is Stable. Forms are Medication Reconciliation Form, Thank You Letter, Antibiotic Education, Prescription Opioid Use. Follow up: Private Physician; When: As needed; Reason: Recheck today's complaints, Re-evaluation by your physician. Problem is an ongoing problem. Symptoms have improved. rn
[2018-10-13] MEDS ORDERED: POTASSIUM CL SA 10 MEQ TAB PO ONE (09:40)
[2018-10-13] MEDS ORDERED: NA CHLORIDE 0.9% 500 ML ONE (09:40)
[2018-10-13] MEDS ORDERED: POTASSIUM 25 MEQ EFFERV TAB ONE (09:40)
[2018-10-13] MEDS ORDERED: HYDROCODONE/APAP 5/325 MG TAB ONE (10:04)
[2018-10-13 10:57] VITALS: TEMP 97.8
[2018-10-13 10:58] VITALS: O2SAT 97
[2018-10-13 11:00] VITALS: BP 127/64
--- NOTE | 2018-10-13 12:19 | EKG ---
Test Date: 2018-09-12 Test Time: 07:34:32 Land Clearer: PAULINO MEASUREMENT RESULTS: Intervals: Rate: 56 NC: 152 QRSD: 92 QT: 438 QTc: 422 [place]: P: 38 NC: 152 QRS: 79 T: 67 INTERPRETIVE STATEMENTS: Sinus bradycardia Otherwise normal ECG Compared to ECG 08/07/2018 06:32:13 Sinus rhythm no longer present Electronically Signed On 10-13-18 12:18:47 CABLE LACER by Chaim Pitts
== END 2018-10-13 10:50 | disposition home or self-care (01) ==
LOC: ER 07:14
DX: R07.89 Other chest pain (principal); F31.9 Bipolar disorder, unspecified; E11.9 Type 2 diabetes mellitus without complications; E78.00 Pure hypercholesterolemia, unspecified; I10 Essential (primary) hypertension; E03.9 Hypothyroidism, unspecified; Z88.5 Allergy status to narcotic agent; Z88.2 Allergy status to sulfonamides; Z88.6 Allergy status to analgesic agent; Z91.041 Radiographic dye allergy status; Z91.040 Latex allergy status; Z79.84 Long term (current) use of oral hypoglycemic drugs
CPT/HCPCS: 36415; 71046; 80048; 81003; 81015; 81025; 84484; 85025; 87077; 87086; 87088; 87186; 93005; 96360; 99285

== ENCOUNTER 2019-01-01 16:34 | Emergency (ER) | payer MEDICAID ==
--- OUTSIDE RECORDS SUMMARY | 2019-01-01 16:36 | XMS REPORT | Clinical Summary ---
:1970 Author Organization [facility] Address [address] [place] [address] Care Team Providers Name Role Phone Matthew [...] Comments CERVICAL CANCER SCREENING 1990 INFLUENZA VACCINE 04/08/2019 Results Not on fileafter 12/31/2017 Insurance Payer Benefit Plan / Group Subscriber ID Type Phone Address [facility] [employer] xxxxxxxxx HMO Advance Directives Patient has advance care planning documents on file. For more information, please contact:[address] [address]
--- OUTSIDE RECORDS SUMMARY | 2019-01-01 16:39 | XMS REPORT ---
:1970 Author Organization [facility] Address [address] [place] [address] Care Team Providers Name Role Phone UNKNOWN, REFFERING Primary Care Provider Unavailable JOE CARVALHO M.D. Unavailable Unavailable PIYUSH HORAN Unavailable Unavailable Payers Payer Name Policy Type Policy Number Effective Date Expiration Date Problems This patient has no known problems. Allergies, Adverse Reactions, Alerts Allergy Allergy Status Severity Reaction(s) Onset Inactive Treating Comments Name Type Date Date Clinician IV CONTRAST DA Active SV 2018-10 00:00:0 0 NSIADS DA Active U 2018-10 00:00:0 0 iodine DA Active SV 2017-10 00:00:0 0 Sulfa DA Active MO 2016-11 (Sulfonamid -11 e 00:00:0 Antibiotics 0 ) ketorolac DA Active WA 2016-11 00:00:0 0 latex DA Active WA 2016-11 00:00:0 0 Medications This patient has no known medications. Encounters Start End Encounter Admission Attending Care Care Encounter Date/Time Date/Time Type Type Clinicians Facility Department ID 2017-05-22 Inpatient [facility] [id number] 16:23:00 2017-12-23 2017-12-23 Emergency E AUNG [facility] [id number] 15:29:00 15:29:00 PIYUSH 2017-07-30 2017-07-30 Outpatient C [facility] [id number] 12:09:00 12:09:00 2017-07-09 2017-07-09 Outpatient [facility] [id number] 00:01:00 00:01:00 2017-06-17 2017-06-17 Outpatient [facility] [id number] 18:46:00 18:46:00 2017-06-08 2017-06-08 Outpatient [facility] [id number] 00:01:00 00:01:00 2017-06-06 2017-06-06 Outpatient [facility] [id number] 21:11:00 21:11:00 Results Test Description Test Time Test Comments Text Results Atomic Results Result Comments - DUP VEIN UNI/LTD 2018-10-29 15:22:00 Name: EVA HARDEN : 1970 Age/S: 48 / F [address] [place] [address] Unit #: [id number] Loc: [place] [address] Phys: Piyush Estrada MD Acct: [id number] Dis Date: 20181029 Status: DIS IN PHONE #: [phone] Exam Date: 10/29/2018 1431 FAX #: [phone] Reason: DVT EXAMS: CPT CODE: [id number] DUP VEIN UNI/LTD 32165 PROCEDURE: UNILATERAL UPPER EXTREMITY VENOUS ULTRASOUND INDICATION: 48-year-old female with acute chest pain and elevated d-dimer, right upper extremity pain and edema COMPARISON: None. TECHNIQUE: Sonographic evaluation of the right upper extremity veins was performed using high resolution B-mode imaging, pulse and color Doppler imaging. FINDINGS: The internal jugular, subclavian, axillary, brachial, radial and ulnar veins are patent. The basilic and cephalic veins are patent. Normal venous waveforms. IMPRESSION: 1. No deep venous thrombosis identified in the right upper extremity. SL: [id number] at 1522 Reported and signed by: Candie Chanel M.D. CC: Piyush Estrada MD Technologist: Destiny Rosario RDMS(Naman)(BR) Trnscb Date/Time: 10/29/2018 (8712) [id number] Orig Print D/T: S: 10/29/2018 (1084) Probe: PAGE 1 Signed Report GLUBED 2018-10-29 11:53:00 Test Item Value Reference Range Comments GLUBED (test code=GLUBED) 181 MG/DL 70-110 Performed by certified granulizing machine operator at [facility] [id number] 09:07:00 Test Item Value Reference Range Comments GLUBED (test code=GLUBED) 83 MG/DL 70-110 Performed by certified granulizing machine operator at [facility] CBC W/AUTO [id number] 08:32:00 Test Item Value Reference Range Comments WHITE BLOOD CELL (test code=WBC) 4.75 x10 3/uL 4.5-11.0 RED BLOOD CELL (test code=RBC) 3.91 x10 6/uL 3.54-5.02 HEMOGLOBIN (test code=HGB) 11.0 g/dL 11.0-15.0 HEMATOCRIT (test code=HCT) 35.0 % 33.0-45.0 MEAN CELL VOLUME (test code=MCV) 89.5 fL 81.0-99.0 MEAN CELL HGB (test code=MCH) 28.1 pg 27.0-33.0 MEAN CELL HGB CONCETRATION (test code=MCHC) 31.4 g/dL 33.0-37.0 RED CELL DISTRIBUTION WIDTH CV (test code=RDW) 13.2 % 11.5-14.5 RED CELL DISTRIBUTION WIDTH SD (test 43.6 fL 37.0-54.0 code=RDW-SD) PLATELET COUNT (test code=PLT) 207 x10 3/uL 150-400 MEAN PLATELET VOLUME (test code=MPV) 11.7 fL 7.0-9.0 NEUTROPHIL % (test code=NT%) 52.7 % 56.0-77.0 IMMATURE GRANULOCYTE % (test code=IG%) 0.2 % 0.0-2.0 LYMPHOCYTE % (test code=LY%) 36.4 % 14.0-32.0 MONOCYTE % (test code=MO%) 6.9 % 4.8-9.0 EOSINOPHIL % (test code=EO%) 3.4 % 0.3-3.7 BASOPHIL % (test code=BA%) 0.4 % 0.0-2.0 NUCLEATED RBC % (test code=NRBC%) 0.0 % 0-0 NEUTROPHIL # (test code=NT#) 2.50 x10 3/uL 2.0-7.6 IMMATURE GRANULOCYTE # (test code=IG#) 0.01 x10 3/uL 0.00-0.03 LYMPHOCYTE # (test code=LY#) 1.73 x10 3/uL 1.0-3.8 MONOCYTE # (test code=MO#) 0.33 x10 3/uL 0.1-0.8 EOSINOPHIL # (test code=EO#) 0.16 x10 3/uL 0.0-0.2 BASOPHIL # (test code=BA#) 0.02 x10 3/uL 0.0-0.2 NUCLEATED RBC # (test code=NRBC#) 0.00 x10 3/uL 0.0-0.1 MANUAL DIFF REQUIRED (test code=MDIFF) NO COMPREHENSIVE METABOLIC [id number] 07:51:00 Test Item Value Reference Range Comments SODIUM (test code=NA) 142 mEq/L 134-147 POTASSIUM (test code=K) 4.0 mEq/L 3.4-5.0 CHLORIDE (test code=CL) 109 mEq/L 100-108 CARBON DIOXIDE (test code=CO2) 29 mEq/L 21-33 ANION GAP (test code=GAP) 8 0-20 GLUCOSE (test code=GLU) 79 mg/dL 70-110 BLOOD UREA NITROGEN (test 10 mg/dL 7-18 code=BUN) GLOMERULAR FILTRATION RATE 169.6 95-105 Units of (test code=GFR) measure=ml/min/1.73 m2 CREATININE (test code=CREAT) 0.4 mg/dL 0.6-1.3 TOTAL PROTEIN (test code=PROT) 6.5 g/dL 6.4-8.2 ALBUMIN (test code=ALB) 3.00 g/dL 3.4-5.0 CALCIUM (test code=CA) 8.3 mg/dL 8.0-10.5 BILIRUBIN TOTAL (test 0.30 mg/dL 0.0-1.0 code=BILT) SGOT/AST (test code=AST) 33 IUnit/L 15-37 SGPT/ALT (test code=ALT) 53 IUnit/L 15-65 ALKALINE PHOSPHATASE TOTAL 89 IUnit/L 20-125 (test code=ALKP) [id number] 07:51:00 Test Item Value Reference Range Comments MAGNESIUM (test code=MAG) 2.00 mg/dL 1.8-2.4 [id number] 20:41:00 Test Item Value Reference Range Comments GLUBED (test code=GLUBED) 91 MG/DL 70-110 Performed by certified granulizing machine operator at [facility] [id number] 19:24:00 Test Item Value Reference Range Comments GLUBED (test code=GLUBED) 158 MG/DL 70-110 Performed by certified granulizing machine operator at [facility] [id number] 19:24:00 Test Item Value Reference Range Comments GLUBED (test code=GLUBED) 106 MG/DL 70-110 Performed by certified granulizing machine operator at [facility] URINALYSIS [id number] 11:17:00 Test Item Value Reference Range Comments UA COLOR (test code=COLU) STRAW YEL/STRAW UA APPEARANCE (test code=APPU) CLEAR CLEAR UA GLUCOSE DIPSTICK (test code=DGLUU) NEGATIVE NEGATIVE UA BILIRUBIN DIPSTICK (test code=BILU) NEGATIVE NEGATIVE UA KETONE DIPSTICK (test code=KETU) NEGATIVE NEGATIVE UA SPECIFIC GRAVITY (test code=SGU) 1.003 1.005-1.030 UA BLOOD DIPSTICK (test code=TIN) NEGATIVE NEGATIVE UA PH DIPSTICK (test code=ANALILIA) 8.0 5.0-7.0 UA PROTEIN DIPSTICK (test code=PROU) NEGATIVE NEGATIVE UA UROBILINIOGEN DIPSTICK (test code=URO) 2.0 mg/dL 0.2-1.0 UA NITRITE DIPSTICK (test code=RUSSEL) NEGATIVE NEGATIVE UA LEUKOCYTE ESTERASE DIPSTICK (test code=LEUU) NEGATIVE NEGATIVE UA WBC (test code=WBCU) 0-3 WBC/HPF 0-3 UA RBC (test code=RBCU) 0-3 RBC/HPF 0-3 UA BACTERIA (test code=BACU) 3+ /HPF NONE SEEN UA SQUAMOUS CELLS (test code=SQU) 0-5 /HPF NONE SEEN UA CULT [id number] 11:17:00 Test Item Value Reference Range Comments UA CULTURE NEEDED? (test NO, WBC<10 Criteria Culture Chk Criteria not met, Urine code=UACULT) Culture cancelled. [id number] 09:11:00 Test Item Value Reference Range Comments GLUBED (test code=GLUBED) 85 MG/DL 70-110 Performed by certified granulizing machine operator at [facility] BASIC METABOLIC [id number] 08:13:00 Test Item Value Reference Range Comments SODIUM (test code=NA) 142 mEq/L 134-147 POTASSIUM (test code=K) 3.6 mEq/L 3.4-5.0 CHLORIDE (test code=CL) 107 mEq/L 100-108 CARBON DIOXIDE (test code=CO2) 29 mEq/L 21-33 ANION GAP (test code=GAP) 10 0-20 GLUCOSE (test code=GLU) 83 mg/dL 70-110 BLOOD UREA NITROGEN (test 8 mg/dL 7-18 code=BUN) GLOMERULAR FILTRATION RATE 169.6 95-105 Units of measure=ml/min/1.73 (test code=GFR) m2 CREATININE (test code=CREAT) 0.4 mg/dL 0.6-1.3 CALCIUM (test code=CA) 8.9 mg/dL 8.0-10.5 [id number] 08:13:00 Test Item Value Reference Range Comments MAGNESIUM (test code=MAG) 2.10 mg/dL 1.8-2.4 CBC W/AUTO [id number] 07:40:00 Test Item Value Reference Range Comments WHITE BLOOD CELL (test code=WBC) 6.49 x10 3/uL 4.5-11.0 RED BLOOD CELL (test code=RBC) 4.31 x10 6/uL 3.54-5.02 HEMOGLOBIN (test code=HGB) 12.2 g/dL 11.0-15.0 HEMATOCRIT (test code=HCT) 37.4 % 33.0-45.0 MEAN CELL VOLUME (test code=MCV) 86.8 fL 81.0-99.0 MEAN CELL HGB (test code=MCH) 28.3 pg 27.0-33.0 MEAN CELL HGB CONCETRATION (test code=MCHC) 32.6 g/dL 33.0-37.0 RED CELL DISTRIBUTION WIDTH CV (test code=RDW) 13.0 % 11.5-14.5 RED CELL DISTRIBUTION WIDTH SD (test 40.6 fL 37.0-54.0 code=RDW-SD) PLATELET COUNT (test code=PLT) 217 x10 3/uL 150-400 MEAN PLATELET VOLUME (test code=MPV) 12.1 fL 7.0-9.0 NEUTROPHIL % (test code=NT%) 65.4 % 56.0-77.0 IMMATURE GRANULOCYTE % (test code=IG%) 0.2 % 0.0-2.0 LYMPHOCYTE % (test code=LY%) 26.7 % 14.0-32.0 MONOCYTE % (test code=MO%) 6.3 % 4.8-9.0 EOSINOPHIL % (test code=EO%) 0.9 % 0.3-3.7 BASOPHIL % (test code=BA%) 0.5 % 0.0-2.0 NUCLEATED RBC % (test code=NRBC%) 0.0 % 0-0 NEUTROPHIL # (test code=NT#) 4.25 x10 3/uL 2.0-7.6 IMMATURE GRANULOCYTE # (test code=IG#) 0.01 x10 3/uL 0.00-0.03 LYMPHOCYTE # (test code=LY#) 1.73 x10 3/uL 1.0-3.8 MONOCYTE # (test code=MO#) 0.41 x10 3/uL 0.1-0.8 EOSINOPHIL # (test code=EO#) 0.06 x10 3/uL 0.0-0.2 BASOPHIL # (test code=BA#) 0.03 x10 3/uL 0.0-0.2 NUCLEATED RBC # (test code=NRBC#) 0.00 x10 3/uL 0.0-0.1 MANUAL DIFF REQUIRED (test code=MDIFF) NO [id number] 23:54:00 Test Item Value Reference Range Comments GLUBED (test code=GLUBED) 243 MG/DL 70-110 Performed by certified granulizing machine operator at [facility] PROTHROMBIN [id number] 07:45:00 Test Item Value Reference Range Comments PROTHROMBIN TIME PATIENT 13.4 SECONDS 9.3-12.9 (test code=PTP) INTERNATIONAL NORMAL RATIO 1.2 0.8-1.2 TARGET INR BY (test code=INR) INDICATION Indication INR1. Prophylaxis of venous thrombosis 2.0 - 3.0 (orthopedic surgery), Prophylaxis of venous thrombosis (other than high-risk surgery), Treatment of Deep Vein Thrombosis/Pulmonary Embolism, Prevention of systemic embolism - Tissue heart valves, Acute Myocardial Infarction (to prevent systemic embolism), Valvular heart disease, Atrial Fibrillation, Bileaflet mechanical valve in aortic position.2. Mechanical prosthetic valves (high risk), 2.5 - 3.5 Presence of Lupus Anticoagulant or Antiphospholipid Antibodies, Prevention of systemic embolism - Acute Myocardial Infarction (to prevent recurrent infarct). THROMBOPLASTIN TIME [id number] 07:45:00 Test Item Value Reference Range Comments THROMBOPLASTIN TIME PARTIAL 37.6 Seconds 25.0-39.5 Therapeutic Range: (test code=PTT) 61.8-83.8 Sec Effective 10/06/2013 BASIC METABOLIC [id number] 07:34:00 Test Item Value Reference Range Comments SODIUM (test code=NA) 142 mEq/L 134-147 POTASSIUM (test code=K) 3.7 mEq/L 3.4-5.0 CHLORIDE (test code=CL) 109 mEq/L 100-108 CARBON DIOXIDE (test code=CO2) 28 mEq/L 21-33 ANION GAP (test code=GAP) 9 0-20 GLUCOSE (test code=GLU) 73 mg/dL 70-110 BLOOD UREA NITROGEN (test 10 mg/dL 7-18 code=BUN) GLOMERULAR FILTRATION RATE 236.4 95-105 Units of measure=ml/min/1.73 (test code=GFR) m2 CREATININE (test code=CREAT) 0.3 mg/dL 0.6-1.3 CALCIUM (test code=CA) 8.0 mg/dL 8.0-10.5 COMMENTS: To be done morning of Heart CathCBC W/AUTO [id number] 07:31:00 Test Item Value Reference Range Comments WHITE BLOOD CELL (test code=WBC) 4.38 x10 3/uL 4.5-11.0 RED BLOOD CELL (test code=RBC) 3.90 x10 6/uL 3.54-5.02 HEMOGLOBIN (test code=HGB) 11.0 g/dL 11.0-15.0 HEMATOCRIT (test code=HCT) 35.0 % 33.0-45.0 MEAN CELL VOLUME (test code=MCV) 89.7 fL 81.0-99.0 MEAN CELL HGB (test code=MCH) 28.2 pg 27.0-33.0 MEAN CELL HGB CONCETRATION (test code=MCHC) 31.4 g/dL 33.0-37.0 RED CELL DISTRIBUTION WIDTH CV (test code=RDW) 13.3 % 11.5-14.5 RED CELL DISTRIBUTION WIDTH SD (test 43.3 fL 37.0-54.0 code=RDW-SD) PLATELET COUNT (test code=PLT) 197 x10 3/uL 150-400 MEAN PLATELET VOLUME (test code=MPV) 11.7 fL 7.0-9.0 NEUTROPHIL % (test code=NT%) 51.8 % 56.0-77.0 IMMATURE GRANULOCYTE % (test code=IG%) 0.2 % 0.0-2.0 LYMPHOCYTE % (test code=LY%) 37.0 % 14.0-32.0 MONOCYTE % (test code=MO%) 6.4 % 4.8-9.0 EOSINOPHIL % (test code=EO%) 3.9 % 0.3-3.7 BASOPHIL % (test code=BA%) 0.7 % 0.0-2.0 NUCLEATED RBC % (test code=NRBC%) 0.0 % 0-0 NEUTROPHIL # (test code=NT#) 2.27 x10 3/uL 2.0-7.6 IMMATURE GRANULOCYTE # (test code=IG#) 0.01 x10 3/uL 0.00-0.03 LYMPHOCYTE # (test code=LY#) 1.62 x10 3/uL 1.0-3.8 MONOCYTE # (test code=MO#) 0.28 x10 3/uL 0.1-0.8 EOSINOPHIL # (test code=EO#) 0.17 x10 3/uL 0.0-0.2 BASOPHIL # (test code=BA#) 0.03 x10 3/uL 0.0-0.2 NUCLEATED RBC # (test code=NRBC#) 0.00 x10 3/uL 0.0-0.1 MANUAL DIFF REQUIRED (test code=MDIFF) NO COMMENTS: To be done morning of Heart [id number] 07:23:00 Test Item Value Reference Range Comments GLUBED (test code=GLUBED) 73 MG/DL 70-110 Performed by certified granulizing machine operator at [facility] [id number] 21:06:00 Test Item Value Reference Range Comments GLUBED (test code=GLUBED) 145 MG/DL 70-110 Performed by certified granulizing machine operator at [facility] [id number] 17:23:00 Test Item Value Reference Range Comments GLUBED (test code=GLUBED) 82 MG/DL 70-110 Performed by certified granulizing machine operator at [facility] - XR UGI W/O [id number] 17:17:00 FAX: Keaton Campbell MD [phone] [place]: St: [facility] FAX: Scooby Wyman MD [phone] ---- Name: EVA HARDEN [facility] : 1970 Age/S: 48/F [address] [place] [address] Unit #: [id number] Loc: [address] [address] Phys: Keaton Campbell MD Acct: [id number] Dis Date: Status: ADM IN PHONE #: [phone] Exam Date: 10/26/2018 1650 FAX #: [phone] Reason: hx of gastric bypass at another institution. C/ EXAMS: CPT CODE : [id number] XR UGI W/O KUB 41135 ESOPHAGRAM AND UPPER GI: HISTORY: History of gastric bypass. Now with inability to swallow solids. Vomiting with regurgitation. COMPARISON EXAM: Recent CT scans of the chest. Noprevious esophagrams or upper GIs for comparison. TECHNIQUE: The patient was given regular barium to drink. Intermittent fluoroscopic observation was made and multiple spot films were obtained. A 14 mm barium tablet was given and imaging was performed at the gastroesophageal junction. TOTAL FLUOROSCOPY TIME: 3.6 minutes. REFERENCE AIR KERMA:202 mGy. FINDINGS: The patient was able to swallow thin barium without difficulty. The esophagus has a normal appearance without abnormal impressions or dilatation. Barium flowed easily across the gastroesophageal junction and promptly into a normal- appearing jejunal loop. No evidence of obstruction to the flow of liquid barium. At that point, a 14 mm barium tablet was administered and observation was made. The barium tablet flowed acrossthe GE junction, but then was retained in the proximal gastric pouch. After several minutes of intermittent observation, and additional sips of water, the barium tablet did not pass into the jejunal loop. The patient was beginning to become nauseated and was not able to swallow additional liquid. IMPRESSION: 1. No evidence of obstruction to the flow of liquid barium. 2. 14 mm barium tablet did not pass from the gastric pouch into the jejunal loop raising the possibility of stricture formation at the gastrojejunostomy. 3. Normal caliber jejunal loop with normal flow of barium into distal small bowel. These findings were discussed directly with the patient by Dr. Gomez on . SL:01 PAGE 1 Signed Report (CONTINUED) FAX: Keaton Campbell MD [phone] [place]: St: ADM FAX: Scooby Wyman MD [phone] Name: EVA HARDEN [facility] : 1970 Age/S: 48/F [address] [place] [address] Unit #: [id number] Loc: [address] [address] Phys: Keaton Campbell MD Acct: [id number] Dis Date: Status: ADM IN PHONE #: [phone] Exam Date : 10/26/2018 1650 FAX#: [phone] Reason: hx of gastric bypass at another institution. C/ EXAMS: CPT CODE: [id number] XR UGI W/O KUB 22266 <Continued> at 1717 Reported andsigned by: Fidel Gomez M.D. CC: Keaton Campbell MD; Scooby Durant MD Technologist: RT Alpesh(R) Trnwird Date/Time/By: 10/26/2018 (1762) : By: Royal.AJJ Orig Print D/T: S: (8090) PAGE 2 Signed [id number] 15:16:00 Test Item Value Reference Range Comments CREATININE (test code=CREAT) 0.7 mg/dL 0.6-1.3 [id number] 11:25:00 Test Item Value Reference Range Comments GLUBED (test code=GLUBED) 87 MG/DL 70-110 Performed by certified granulizing machine operator at [facility] BASIC METABOLIC [id number] 08:13:00 Test Item Value Reference Range Comments SODIUM (test code=NA) 140 mEq/L 134-147 POTASSIUM (test code=K) 4.0 mEq/L 3.4-5.0 CHLORIDE (test code=CL) 110 mEq/L 100-108 CARBON DIOXIDE (test code=CO2) 26 mEq/L 21-33 ANION GAP (test code=GAP) 8 0-20 GLUCOSE (test code=GLU) 81 mg/dL 70-110 BLOOD UREA NITROGEN (test 10 mg/dL 18 code=BUN) GLOMERULAR FILTRATION RATE 131.1 95-105 Units of measure=ml/min/1.73 (test code=GFR) m2 CREATININE (test code=CREAT) 0.5 mg/dL 0.6-1.3 CALCIUM (test code=CA) 8.7 mg/dL 8.0-10.5 [id number] 08:08:00 Test Item Value Reference Range Comments GLUBED (test code=GLUBED) 82 MG/DL 70-110 Performed by certified granulizing machine operator at [facility] CBC W/AUTO [id number] 07:50:00 Test Item Value Reference Range Comments WHITE BLOOD CELL (test code=WBC) 4.97 x10 3/uL 4.5-11.0 RED BLOOD CELL (test code=RBC) 4.33 x10 6/uL 3.54-5.02 HEMOGLOBIN (test code=HGB) 12.4 g/dL 11.0-15.0 HEMATOCRIT (test code=HCT) 39.1 % 33.0-45.0 MEAN CELL VOLUME (test code=MCV) 90.3 fL 81.0-99.0 MEAN CELL HGB (test code=MCH) 28.6 pg 27.0-33.0 MEAN CELL HGB CONCETRATION (test code=MCHC) 31.7 g/dL 33.0-37.0 RED CELL DISTRIBUTION WIDTH CV (test code=RDW) 13.5 % 11.5-14.5 RED CELL DISTRIBUTION WIDTH SD (test 44.6 fL 37.0-54.0 code=RDW-SD) PLATELET COUNT (test code=PLT) 190 x10 3/uL 150-400 MEAN PLATELET VOLUME (test code=MPV) 11.2 fL 7.0-9.0 NEUTROPHIL % (test code=NT%) 47.9 % 56.0-77.0 IMMATURE GRANULOCYTE % (test code=IG%) 0.2 % 0.0-2.0 LYMPHOCYTE % (test code=LY%) 42.1 % 14.0-32.0 MONOCYTE % (test code=MO%) 6.2 % 4.8-9.0 EOSINOPHIL % (test code=EO%) 3.0 % 0.3-3.7 BASOPHIL % (test code=BA%) 0.6 % 0.0-2.0 NUCLEATED RBC % (test code=NRBC%) 0.0 % 0-0 NEUTROPHIL # (test code=NT#) 2.38 x10 3/uL 2.0-7.6 IMMATURE GRANULOCYTE # (test code=IG#) 0.01 x10 3/uL 0.00-0.03 LYMPHOCYTE # (test code=LY#) 2.09 x10 3/uL 1.0-3.8 MONOCYTE # (test code=MO#) 0.31 x10 3/uL 0.1-0.8 EOSINOPHIL # (test code=EO#) 0.15 x10 3/uL 0.0-0.2 BASOPHIL # (test code=BA#) 0.03 x10 3/uL 0.0-0.2 NUCLEATED RBC # (test code=NRBC#) 0.00 x10 3/uL 0.0-0.1 MANUAL DIFF REQUIRED (test code=MDIFF) NO [id number] 20:42:00 Test Item Value Reference Range Comments GLUBED (test code=GLUBED) 97 MG/DL 70-110 Performed by certified granulizing machine operator at [facility] [id number] 16:18:00 Test Item Value Reference Range Comments GLUBED (test code=GLUBED) 94 MG/DL 70-110 Performed by certified granulizing machine operator at [facility] - PULM VENT PERF [id number] 15:28:00 FAX: Scooby Wyman MD [place]: St: ADM FAX: Chris Galindo MD [phone] Name: EVA HARDEN [facility] : 1970 Age/S: 48/F [address] [place] [address] Unit #: [id number] Loc: [address] [address] Phys: Chris Ny MD Acct: [id number] Dis Date: Status: ADM IN PHONE #: [phone] Exam Date: 10/25/2018 1516 FAX #: [phone] Reason: CP, HIGH D-DIMER, R/O PE EXAMS: CPT CODE: [id number] PULM VENT PERF IMAG 79456 NUCLEAR MEDICINE VENTILATION/PERFUSION LUNG SCAN HISTORY: Chest pain, elevated d-dimer. Comparison is made to CT chest, also dated 10/25/18. Radiopharmaceutical: 10 mCi xenon-133 gas inhaled for ventilation, 5 mCi technetium 99m MAA injected IV for perfusion. FINDINGS: Ventilation images show homogeneous activity at equilibrium. There is no significant air trapping on washout ventilation images identified. Perfusion images show patchy perihilar distribution of the radiopharmaceutical. There is no segmental perfusion defect. IMPRESSION: Low probability for pulmonary embolus. SL:01 at 1528 Reported and signed by:Malachi Pham M.D. CC: Scooby Durant MD; Chris Ny MD Technologist: Bernice Sloan, RT(N)(CT)(PET) Trnscrd Date/Time/By: 10/25/2018 (1528) : By: Jannet Orig Print D/T: S: 10/25/2018 (9723) PAGE 1 Signed [id number] 14:32:00 Test Item Value Reference Range Comments GLUBED (test code=GLUBED) 107 MG/DL 70-110 Performed by certified granulizing machine operator at [facility] [id number] 09:53:00 Test Item Value Reference Range Comments GLUBED (test code=GLUBED) 108 MG/DL 70-110 Performed by certified granulizing machine operator at [facility] BASIC METABOLIC [id number] 09:07:00 Test Item Value Reference Range Comments SODIUM (test code=NA) 142 mEq/L 134-147 POTASSIUM (test code=K) 3.3 mEq/L 3.4-5.0 CHLORIDE (test code=CL) 110 mEq/L 100-108 CARBON DIOXIDE (test code=CO2) 27 mEq/L 21-33 ANION GAP (test code=GAP) 8 0-20 GLUCOSE (test code=GLU) 79 mg/dL 70-110 BLOOD UREA NITROGEN (test 11 mg/dL 7-18 code=BUN) GLOMERULAR FILTRATION RATE 169.6 95-105 Units of measure=ml/min/1.73 (test code=GFR) m2 CREATININE (test code=CREAT) 0.4 mg/dL 0.6-1.3 CALCIUM (test code=CA) 8.1 mg/dL 8.0-10.5 10/25/18 0630COMMENTS: 3 troponins total (including troponin done in ED)THYROID STIMULATING [id number] 09:07:00 Test Item Value Reference Range Comments THYROID STIMULATING HORMONE (test 2.30 0.42-5.47 Results in tariq- International code=TSH) Units/mL 10/25/18 0630COMMENTS: 3 troponins total (including troponin done in ED)TROPONIN -[id number] 09:07:00 Test Item Value Reference Range Comments TROPONIN-I (test < 0.015 ng/mL 0.000-0.045 Negative: <=0.045 code=TROPI) Positive: >=0.046 Correlation with serial results, other cardiac markers andclinical findings is necessary to determine the clinicalsignificance of this result. Results using different methodologies should not be comparedto one another as quantitative results may vary by method. 10/25/18 0630COMMENTS: 3 troponins total (including troponin done in ED)- CT CHEST W/O [id number] 09:04:00 Name: EVA HARDEN Lake : 1970 Age/S: 48 / F [address] [place] [address] Unit #: [id number] Loc: IGGY [id number] Phys: Scooby Durant MD Acct: [id number] Dis Date: Status: ADM IN PHONE #: [phone] Exam Date: 10/25/2018829 FAX #: [phone] Reason: pleurisy EXAMS: CPTCODE: [id number] CT CHEST W/O CONTRAST [id number] PROCEDURE: CT CHEST WITHOUT CONTRAST INDICATION: Chest pain, elevated d-dimer COMPARISON: 10/21/17. TECHNIQUE: Noncontrasted helical imaging performed apices through the lung bases with multiplanar reconstructions. CT imaging performed at this location utilizes radiation dose optimization techniques which include one or more of the following: -Automated exposure control - Adjustment of the mA and/or kV according to patient size -Use ofiterative reconstruction technique CT Radiation Dose DLP 371 mGy-cm FINDINGS: LUNGS AND PLEURA: The lungs are clear. No pleural abnormality. MEDIASTINUM: The mediastinal contents are unremarkable. No adenopathy. HEART: The cardiac chambers are unremarkable. No pericardial effusion. VASCULAR STRUCTURES: Minimal calcified plaque along the normal caliber descending thoracic aorta. The superior vena cava is unremarkable. UPPER ABDOMEN: Patient is post gastric bypass and cholecystectomy.MUSCULOSKELETAL: Stable. IMPRESSION: 1. No acute intrathoracic abnormality demonstrated by noncontrast CT chest. 2. Previous gastric bypass and cholecystectomy. SL:01 at 0904 Reported and signed by: Malachi Pham M.D. PAGE 1 Signed Report ( CONTINUED) Name: EVA HARDEN [place] : 1970 Age/S: 48 / F [address] [place] [address] Unit #: [id number] Loc: IGGY [place] [address] Phys: Scooyb Durant MD Acct: [id number] Dis Date: Status: ADM IN PHONE #: [phone] Exam Date: 10/25/2018 0830 FAX #: [phone]: pleurisy EXAMS: CPT CODE: [id number] CT CHEST W/O CONTRAST [id number] <Continued> CC: Scooby Durant MD Technologist:Leonie Azar, RT(R)(CT) CTDI: DLP: Trnscb Date/Time: 10/25/2018 (903) t.JN Orig Print D/T: S: 10/25/2018 (906) CTDI: DLP : PAGE 2 Signed [id number]%2018-10-25 08:45:00 Test Item Value Reference Range Comments HGBA1C% (test code=HGBA1C%) 5.5 %A1C 4.8-6.0 - DUP VEIN [id number] 08:40:00 Name: EVA HARDEN [facility] : 1970 Age/S: 48 / F [address] [place] [address] Blvd Unit #: [id number] Loc: New [id number] Phys: Scooby Durant MD Acct: [id number] Dis Date: Status: ADM IN PHONE #: [phone] Exam Date: 10/25/2018 08 FAX #: [phone] Reason: elevated ddimer EXAMS: CPTCODE: [id number] DUP VEIN RASHID 56971 PROCEDURE: BILATERAL LOWER EXTREMITY VENOUS ULTRASOUND INDICATION: Chest pain, elevated d-dimer COMPARISON: None. TECHNIQUE: Sonographic evaluation of the bilateral lower extremity veins was performed using high resolution B-mode, pulse and color Dopplerimaging. FINDINGS: RIGHT: The common femoral, femoral, popliteal and visualized calf veins are patent. Normal venous waveforms. The saphenofemoral junction is unremarkable. Complex cystic structure in the right popliteal fossa measures 3.8 cm x 4.4 cm. LEFT: The common femoral, femoral, popliteal and visualized calf veins are patent. Normal venous waveforms. The saphenofemoral junction is unremarkable. IMPRESSION: 1. No deep venous thrombosis. 2. Complex right Gaspar'scyst. SL:01 at 0840 Reported and signed by: Malachi Pham M.D. CC: Scooby Durant MD Technologist: Michelle Silverman RDMS(Naman) Trnscb Date/Time: 10/25/2018 (0840) Jannet Orig Print D/T: S: 10/25/2018 (3332) Probe: PAGE 1 Signed ReportCBC W/AUTO [id number] 08:21:00 Test Item Value Reference Range Comments WHITE BLOOD CELL (test code=WBC) 5.81 x10 3/uL 4.5-11.0 RED BLOOD CELL (test code=RBC) 3.77 x10 6/uL 3.54-5.02 HEMOGLOBIN (test code=HGB) 10.8 g/dL 11.0-15.0 HEMATOCRIT (test code=HCT) 34.0 % 33.0-45.0 MEAN CELL VOLUME (test code=MCV) 90.2 fL 81.0-99.0 MEAN CELL HGB (test code=MCH) 28.6 pg 27.0-33.0 MEAN CELL HGB CONCETRATION (test code=MCHC) 31.8 g/dL 33.0-37.0 RED CELL DISTRIBUTION WIDTH CV (test code=RDW) 14.6 % 11.5-14.5 RED CELL DISTRIBUTION WIDTH SD (test 44.8 fL 37.0-54.0 code=RDW-SD) PLATELET COUNT (test code=PLT) 164 x10 3/uL 150-400 MEAN PLATELET VOLUME (test code=MPV) 12.4 fL 7.0-9.0 NEUTROPHIL % (test code=NT%) 58.2 % 56.0-77.0 IMMATURE GRANULOCYTE % (test code=IG%) 0.2 % 0.0-2.0 LYMPHOCYTE % (test code=LY%) 31.8 % 14.0-32.0 MONOCYTE % (test code=MO%) 6.7 % 4.8-9.0 EOSINOPHIL % (test code=EO%) 2.8 % 0.3-3.7 BASOPHIL % (test code=BA%) 0.3 % 0.0-2.0 NUCLEATED RBC % (test code=NRBC%) 0.0 % 0-0 NEUTROPHIL # (test code=NT#) 3.38 x10 3/uL 2.0-7.6 IMMATURE GRANULOCYTE # (test code=IG#) 0.01 x10 3/uL 0.00-0.03 LYMPHOCYTE # (test code=LY#) 1.85 x10 3/uL 1.0-3.8 MONOCYTE # (test code=MO#) 0.39 x10 3/uL 0.1-0.8 EOSINOPHIL # (test code=EO#) 0.16 x10 3/uL 0.0-0.2 BASOPHIL # (test code=BA#) 0.02 x10 3/uL 0.0-0.2 NUCLEATED RBC # (test code=NRBC#) 0.00 x10 3/uL 0.0-0.1 MANUAL DIFF REQUIRED (test code=MDIFF) NO [id number] 03:19:00 Test Item Value Reference Range Comments TROPONIN-I (test < 0.015 ng/mL 0.000-0.045 Negative: <=0.045 code=TROPI) Positive: >=0.046 Correlation with serial results, other cardiac markers andclinical findings is necessary to determine the clinicalsignificance of this result. Results using different methodologies should not be comparedto one another as quantitative results may vary by method. COMMENTS: 3 troponins total (including troponin done in ED)B-TYPE NATRIURETIC [id number] 00:32:00 Test Item Value Reference Range Comments B-TYPE NATRIURETIC PEPTIDE (test code=BNP) 20.4 PG/ML 0-100 - XR CHEST 1 [id number] 00:18:00 FAX: Pam Weinstein DO [place]: [address]: REG Name: EVA HARDEN [facility] : 1970 Age/S: 48/F [address] [place] [address] Unit#: [id number] Loc: [place] [address] Phys: Pam Benitez DO Acct: [id number] Dis Date: Status: REG ER PHONE #: [phone] Exam Date: 10/24/2018 2357 FAX #: [phone] Reason: Chest Pain EXAMS: CPT CODE: [id number] XR CHEST 1 V 41812 EXAM: CR, XR chest one view: 10/24/2018 HISTORY:Chest Pain TECHNIQUE: 1 view of the chest. COMPARISON: 10/21/2017 FINDINGS: Trachea is midline. Heart is normal in size. Pulmonary vascularity isunremarkable. There is no airspace consolidation, pleural effusion or pneumothorax. No significant osseous abnormalities are seen. IMPRESSION: No acute cardiopulmonary disease seen. SL: [JSYED-H] Electronically Signed by Chiquita Marquez on 2018 at 0018 Reported and signed by: Chace Marquez M.D. CC: Pam Benitez DO Technologist: Bi Cao RT(R); Oral Mendiola Trnscrd Date/ Time/By: 10/25/2018 (0018) : By: Royal.JS38 Orig Print D/T: S:2018 (0022) PAGE 1 Signed ReportBASIC METABOLIC [id number] 00:11:00 Test Item Value Reference Range Comments SODIUM (test code=NA) 142 mEq/L 134-147 POTASSIUM (test code=K) 3.4 mEq/L 3.4-5.0 CHLORIDE (test code=CL) 108 mEq/L 100-108 CARBON DIOXIDE (test code=CO2) 31 mEq/L 21-33 ANION GAP (test code=GAP) 6 0-20 GLUCOSE (test code=GLU) 86 mg/dL 70-110 BLOOD UREA NITROGEN (test 13 mg/dL 7-18 code=BUN) GLOMERULAR FILTRATION RATE 131.1 95-105 Units of measure=ml/min/1.73 (test code=GFR) m2 CREATININE (test code=CREAT) 0.5 mg/dL 0.6-1.3 CALCIUM (test code=CA) 8.3 mg/dL 8.0-10.5 HEPATIC FUNCTION [id number] 00:11:00 Test Item Value Reference Range Comments TOTAL PROTEIN (test code=PROT) 7.4 g/dL 6.4-8.2 ALBUMIN (test code=ALB) 3.60 g/dL 3.4-5.0 BILIRUBIN TOTAL (test code=BILT) 0.20 mg/dL 0.0-1.0 BILIRUBIN DIRECT (test code=BILD) < 0.10 MG/DL 0.0-0.30 BILIRUBIN INDIRECT (test code=BILIND) 0.10 MG/DL SGOT/AST (test code=AST) 14 IUnit/L 15-37 SGPT/ALT (test code=ALT) 31 IUnit/L 15-65 ALKALINE PHOSPHATASE TOTAL (test code=ALKP) 102 IUnit/L 20-125 PROTHROMBIN [id number] 23:57:00 Test Item Value Reference Range Comments PROTHROMBIN TIME PATIENT 12.4 SECONDS 9.3-12.9 (test code=PTP) INTERNATIONAL NORMAL RATIO 1.1 0.8-1.2 TARGET INR BY (test code=INR) INDICATION Indication INR1. Prophylaxis of venous thrombosis 2.0 - 3.0 (orthopedic surgery), Prophylaxis of venous thrombosis (other than high-risk surgery), Treatment of Deep Vein Thrombosis/Pulmonary Embolism, Prevention of systemic embolism - Tissue heart valves, Acute Myocardial Infarction (to prevent systemic embolism), Valvular heart disease, Atrial Fibrillation, Bileaflet mechanical valve in aortic position.2. Mechanical prosthetic valves (high risk), 2.5 - 3.5 Presence of Lupus Anticoagulant or Antiphospholipid Antibodies, Prevention of systemic embolism - Acute Myocardial Infarction (to prevent recurrent infarct). [id number] 23:57:00 Test Item Value Reference Range Comments D-DIMER (test 1162 ng/mlFEU <=500 THROMBOSIS AND/OR PULMONARY code=DDIMER) EMBOLISM AND THE CLINICAL CUT- OFF VALUE FOR EXCLUSION (500 ng/mL FEU) OF THESE CONDITIONSIS VALIDATED BY THE TOWER SWITCH OPERATOR OF THE METHOD. A NEGATIVE D-DIMER RESULT WHEN COMBINED WITH A CLINICALASSESSMENT OF LOW PRETEST PROBABILITY HAS BEEN SHOWN TO HAVEA HIGH NEGATIVE PREDICTIVE VALUE OF DVT OR PE. D-DIMER VALUES >500 ng/mL FEU ARE NOT DIAGNOSTIC FOR DVT, PEor DIC WITHOUT OTHER CONFIRMATORY TESTS AND APPROPRIATECLINICAL EUALUATIONS. CBC W/AUTO [id number] 23:50:00 Test Item Value Reference Range Comments WHITE BLOOD CELL (test code=WBC) 6.39 x10 3/uL 4.5-11.0 RED BLOOD CELL (test code=RBC) 4.29 x10 6/uL 3.54-5.02 HEMOGLOBIN (test code=HGB) 12.1 g/dL 11.0-15.0 HEMATOCRIT (test code=HCT) 37.0 % 33.0-45.0 MEAN CELL VOLUME (test code=MCV) 86.2 fL 81.0-99.0 MEAN CELL HGB (test code=MCH) 28.2 pg 27.0-33.0 MEAN CELL HGB CONCETRATION (test code=MCHC) 32.7 g/dL 33.0-37.0 RED CELL DISTRIBUTION WIDTH CV (test code=RDW) 13.2 % 11.5-14.5 RED CELL DISTRIBUTION WIDTH SD (test 41.1 fL 37.0-54.0 code=RDW-SD) PLATELET COUNT (test code=PLT) 244 x10 3/uL 150-400 MEAN PLATELET VOLUME (test code=MPV) 10.8 fL 7.0-9.0 NEUTROPHIL % (test code=NT%) 62.3 % 56.0-77.0 IMMATURE GRANULOCYTE % (test code=IG%) 0.2 % 0.0-2.0 LYMPHOCYTE % (test code=LY%) 27.9 % 14.0-32.0 MONOCYTE % (test code=MO%) 6.1 % 4.8-9.0 EOSINOPHIL % (test code=EO%) 3.0 % 0.3-3.7 BASOPHIL % (test code=BA%) 0.5 % 0.0-2.0 NUCLEATED RBC % (test code=NRBC%) 0.0 % 0-0 NEUTROPHIL # (test code=NT#) 3.99 x10 3/uL 2.0-7.6 IMMATURE GRANULOCYTE # (test code=IG#) 0.01 x10 3/uL 0.00-0.03 LYMPHOCYTE # (test code=LY#) 1.78 x10 3/uL 1.0-3.8 MONOCYTE # (test code=MO#) 0.39 x10 3/uL 0.1-0.8 EOSINOPHIL # (test code=EO#) 0.19 x10 3/uL 0.0-0.2 BASOPHIL # (test code=BA#) 0.03 x10 3/uL 0.0-0.2 NUCLEATED RBC # (test code=NRBC#) 0.00 x10 3/uL 0.0-0.1 MANUAL DIFF REQUIRED (test code=MDIFF) NO [id number] 01:00:00 Test Item Value Reference Range Comments Lipase (test code=LIP) 28 U/L 13-60 Comprehensive Metabolic [id number] 01:00:00 Test Item Value Reference Range Comments [...] race is not provided, and the patient isAfrican-Guyanese, multiply by 1.212. If sex is not [...] the National Kidney Foundation,http://nkdep.nih .gov BHCG, Urine, [id number] 00:45:00 Test Item Value Reference Range Comments Preg Qual [Ur] (test code=HUHCG) Negative Negative CBC with [id number] 00:44:00 Test Item Value Reference Range Comments [...] Lymph Abs (test code=ALYMPH) 2.6 K/cumm 0.5-4.6 [place] Abs (test code=AMONO) 0.4 K/cumm 0.0-1.2 Eos Abs (test code=AEOS) 0.38 K/cumm 0.00-0.74 Baso Abs (test code=ABASO) 0.1 K/cumm 0.00-0.21 Urinalysis [id number] 00:32:00 Test Item Value Reference Range Comments Color (test code=COLOR) Yellow Yellow,Straw,Pl yellow Clarity (test code=CLAR) Sl Cloudy Clear Specific [place] (test code=SPGR) 1.016 1.001-1.035 pH (test code=PH) [...] /HPF 0-5 Bacteria (test code=BACT) Many /HPF [id number] 17:42:00 Test Item Value Reference Range Comments Lipase (test code=LIP) 28 U/L 13-60 Comprehensive Metabolic [id number] 17:42:00 Test Item Value Reference Range Comments [...] race is not provided, and the patient isAfrican-Guyanese, multiply by 1.212. If sex is not [...] the National Kidney Foundation,http://nkdep.nih .gov CBC with [id number] 17:00:00 Test Item Value Reference Range Comments [...] Lymph Abs (test code=ALYMPH) 2.0 K/cumm 0.5-4.6 [place] Abs (test code=AMONO) 0.3 K/cumm 0.0-1.2 Eos Abs (test code=AEOS) 0.34 K/cumm 0.00-0.74 Baso Abs (test code=ABASO) 0.0 K/cumm 0.00-0.21 57194& PELVIS W/O [id number] 16:47:19CT OF THE ABDOMEN AND PELVIS WITHOUT [...] absence of the gallbladder and uterus.POC Glucose, [id number] 07:45:00 Test Item Value Reference Range Comments POC Glucose (test 158 mg/dL 70-115 Notify RN or MDIf you consider code=POCGLUC) your patient critically ill, the [place] Accu-Chek InformII metershould not be used for Glucose determinations.Draw a venous Glucose and send to the Main Lab for Analysis. POC Glucose, [id number] 20:31:00 Test Item Value Reference Range Comments POC Glucose (test 167 mg/dL 70-115 If you consider your patient code=POCGLUC) critically ill, the [place] Accu-Chek InformII metershould not be used for Glucose determinations.Draw a venous Glucose and send to the Main Lab for Analysis. POC Glucose, [id number] 16:44:00 Test Item Value Reference Range Comments POC Glucose (test 148 mg/dL 70-115 If you consider your patient code=POCGLUC) critically ill, the [place] Accu-Chek InformII metershould not be used for Glucose determinations.Draw a venous Glucose and send to the Main Lab for Analysis. POC Glucose, [id number] 11:25:00 Test Item Value Reference Range Comments POC Glucose (test 173 mg/dL 70-115 If you consider your patient code=POCGLUC) critically ill, the [place] Accu-Chek InformII metershould not be used for Glucose determinations.Draw a venous Glucose and send to the Main Lab for Analysis. POC Glucose, [id number] 07:30:00 Test Item Value Reference Range Comments POC Glucose (test 191 mg/dL 70-115 If you consider your patient code=POCGLUC) critically ill, the [place] Accu-Chek InformII metershould not be used for Glucose determinations.Draw a venous Glucose and send to the Main Lab for Analysis. POC Glucose, [id number] 06:33:00 Test Item Value Reference Range Comments POC Glucose (test 181 mg/dL 70-115 If you consider your patient code=POCGLUC) critically ill, the [place] Accu-Chek InformII metershould not be used for Glucose determinations.Draw a venous Glucose and send to the Main Lab for Analysis. Comprehensive Metabolic [id number] 05:28:00 Test Item Value Reference Range Comments [...] race is not provided, and the patient isAfrican-Guyanese, multiply by 1.212. If sex is not [...] the National Kidney Foundation,http://nkdep.nih .gov CBC with [id number] 05:03:00 Test Item Value Reference Range Comments [...] Lymph Abs (test code=ALYMPH) 1.6 K/cumm 0.5-4.6 [place] Abs (test code=AMONO) 0.3 K/cumm 0.0-1.2 Eos Abs (test code=AEOS) 0.23 K/cumm 0.00-0.74 Baso Abs (test code=ABASO) 0.0 K/cumm 0.00-0.21 POC Glucose, [id number] 21:57:00 Test Item Value Reference Range Comments POC Glucose (test 176 mg/dL 70-115 If you consider your patient code=POCGLUC) critically ill, the [place] Accu-Chek InformII metershould not be used for Glucose determinations.Draw a venous Glucose and send to the Main Lab for Analysis. POC Glucose, [id number] 16:25:00 Test Item Value Reference Range Comments POC Glucose (test 148 mg/dL 70-115 If you consider your patient code=POCGLUC) critically ill, the [place] Accu-Chek InformII metershould not be used for Glucose determinations.Draw a venous Glucose and send to the Main Lab for Analysis. CT NECK SOFT TISSUE WO [id number] 15:49:06Exam: CT soft tissue neck withoutcontrast.Location: E4Obosuvw: Neck painTechnique: Unenhanced spiral slices were taken through the neck.Sagittal and coronal reformations were performed. One or more ofthefollowing radiation dose reduction techniques was used: Automaticexposure control, adjustment of mA and/or KV according to the patient'ssize, and/or utilization of iterative reconstruction technique. Findings:The parotid space, carotid space, circuit designer space, prevertebral spaceand the fossa of Rosenm?ller are normal. The oral and hypopharynx areunremarkable.The salivary glands are normal. No sialadenitis or sialolithiasis isseen.The larynx and trachea are normal. The cervical and visualized thoracicesophagus is unremarkable. No lymphadenopathy is present in eitherjugular or either posterior chain.The thyroid gland is normal. The soft tissues are unremarkable.Impression:Unremarkable exam.CT CHEST W/O [id number] 15:45:29Exam: CT thorax withoutcontrast.Location: F8Drsmrfg: Chest painTechnique: Unenhancedspiral slices were taken from [...] are notedImpression: Left lower lobe pneumonia.POC Glucose, [id number] 11:54:00 Test Item Value Reference Range Comments POC Glucose (test 200 mg/dL 70-115 If you consider your patient code=POCGLUC) critically ill, the [place] Accu-Chek InformII metershould not be used for Glucose determinations.Draw a venous Glucose and send to the Main Lab for Analysis. POC Glucose, [id number] 07:17:00 Test Item Value Reference Range Comments POC Glucose (test 180 mg/dL 70-115 If you consider your patient code=POCGLUC) critically ill, the [place] Accu-Chek InformII metershould not be used for Glucose determinations.Draw a venous Glucose and send to the Main Lab for Analysis. Comprehensive Metabolic [id number] 06:33:00 Test Item Value Reference Range Comments [...] race is not provided, and the patient isAfrican-Guyanese, multiply by 1.212. If sex is not [...] the National Kidney Foundation,http://nkdep.nih .gov CBC with [id number] 06:13:00 Test Item Value Reference Range Comments [...] Lymph Abs (test code=ALYMPH) 1.6 K/cumm 0.5-4.6 [place] Abs (test code=AMONO) 0.4 K/cumm 0.0-1.2 Eos Abs (test code=AEOS) 0.31 K/cumm 0.00-0.74 Baso Abs (test code=ABASO) 0.0 K/cumm 0.00-0.21 POC Glucose, [id number] 23:37:00 Test Item Value Reference Range Comments POC Glucose (test 152 mg/dL 70-115 If you consider your patient code=POCGLUC) critically ill, the [place] Accu-Chek InformII metershould not be used for Glucose determinations.Draw a venous Glucose and send to the Main Lab for Analysis. POC Glucose, [id number] 17:16:00 Test Item Value Reference Range Comments POC Glucose (test 170 mg/dL 70-115 If you consider your patient code=POCGLUC) critically ill, the [place] Accu-Chek InformII metershould not be used for Glucose determinations.Draw a venous Glucose and send to the Main Lab for Analysis. D-Dimer, [id number] 15:56:00 Test Item Value Reference Range Comments D-Dimer, Quant (test code=DDQNT) 1610 ng/mL 0-500 50869&PERFUS [id number] 14:47:54Dictation location: R 16Clinical indication: Shortness of [...] of pulmonary emboli.US DUPLX EXT VEINS COMPRS, [id number] 12:42:18DICTATION LOCATION: [id number]: DVTCOMPARISON: None available.TECHNIQUE: Duplex sonography of theright [...] lower extremity.Small right Gaspar's cyst.XR CHEST 2V, [id number] 11:43:22EXAM: Chest x-ray, 2 viewsLOCATION: [id number]: Chest radiograph 12/04/2017 and 11/26/2017INDICATION: chest painDISCUSSION:PA [...] silhouette.3. Otherwise, no acute cardiopulmonary abnormalities.POC Glucose, [id number] 07:08:00 Test Item Value Reference Range Comments POC Glucose (test 201 mg/dL 70-115 Notify RN or MDIf you consider code=POCGLUC) your patient critically ill, the [place] Accu-Chek InformII metershould not be used for Glucose determinations.Draw a venous Glucose and send to the Main Lab for Analysis. POC Glucose, [id number] 00:19:00 Test Item Value Reference Range Comments POC Glucose (test 173 mg/dL 70-115 Notify RN or MDIf you consider code=POCGLUC) your patient critically ill, the [place] Accu-Chek InformII metershould not be used for Glucose determinations.Draw a venous Glucose and send to the Main Lab for Analysis. POC Glucose, [id number] 21:49:00 Test Item Value Reference Range Comments POC Glucose (test 189 mg/dL 70-115 If you consider your patient code=POCGLUC) critically ill, the [place] Accu-Chek InformII metershould not be used for Glucose determinations.Draw a venous Glucose and send to the Main Lab for Analysis. POC Glucose, [id number] 17:09:00 Test Item Value Reference Range Comments POC Glucose (test 193 mg/dL 70-115 Notify RN or MDIf you consider code=POCGLUC) your patient critically ill, the [place] Accu-Chek InformII metershould not be used for Glucose determinations.Draw a venous Glucose and send to the Main Lab for Analysis. POC Glucose, [id number] 12:20:00 Test Item Value Reference Range Comments POC Glucose (test 166 mg/dL 70-115 If you consider your patient code=POCGLUC) critically ill, the [place] Accu-Chek InformII metershould not be used for Glucose determinations.Draw a venous Glucose and send to the Main Lab for Analysis. POC Glucose, [id number] 09:03:00 Test Item Value Reference Range Comments POC Glucose (test 212 mg/dL 70-115 If you consider your patient code=POCGLUC) critically ill, the [place] Accu-Chek InformII metershould not be used for Glucose determinations.Draw a venous Glucose and send to the Main Lab for Analysis. Comprehensive Metabolic [id number] 05:54:00 Test Item Value Reference Range Comments [...] race is not provided, and the patient isAfrican-Guyanese, multiply by 1.212. If sex is not [...] the National Kidney Foundation,http://nkdep.nih .gov CBC with [id number] 05:40:00 Test Item Value Reference Range Comments [...] Lymph Abs (test code=ALYMPH) 1.7 K/cumm 0.5-4.6 [place] Abs (test code=AMONO) 0.9 K/cumm 0.0-1.2 Eos Abs (test code=AEOS) 0.04 K/cumm 0.00-0.74 Baso Abs (test code=ABASO) 0.0 K/cumm 0.00-0.21 POC Glucose, [id number] 05:04:00 Test Item Value Reference Range Comments POC Glucose (test 202 mg/dL 70-115 If you consider your patient code=POCGLUC) critically ill, the [place] Accu-Chek InformII metershould not be used for Glucose determinations.Draw a venous Glucose and send to the Main Lab for Analysis. XR CHEST 1 [id number] 03:04:28AFTER HOURS SERVICE ON: 12/04/2017 3:04 AMAP Portable ChestLocation Code [id number]: Status Post Lap Gastric BypassFINDINGS: There are no infiltrates. There are no pleural effusions. There is nopneumothorax. Cardiac silhouette and mediastinum appear within normallimits. Surgical drain is noted projecting over the mid abdomen and leftupper quadrant.IMPRESSION: No active intrathoracic findings.POC Glucose, [id number] 02:06:00 Test Item Value Reference Range Comments POC Glucose (test 213 mg/dL 70-115 If you consider your patient code=POCGLUC) critically ill, the [place] Accu-Chek InformII metershould not be used for Glucose determinations.Draw a venous Glucose and send to the Main Lab for Analysis. POC Glucose, [id number] 21:15:00 Test Item Value Reference Range Comments POC Glucose (test 236 mg/dL 70-115 If you consider your patient code=POCGLUC) critically ill, the [place] Accu-Chek InformII metershould not be used for Glucose determinations.Draw a venous Glucose and send to the Main Lab for Analysis. POC Glucose, [id number] 16:03:00 Test Item Value Reference Range Comments POC Glucose (test 235 mg/dL 70-115 If you consider your patient code=POCGLUC) critically ill, the [place] Accu-Chek InformII metershould not be used for Glucose determinations.Draw a venous Glucose and send to the Main Lab for Analysis. POC Glucose, [id number] 11:24:00 Test Item Value Reference Range Comments POC Glucose (test 269 mg/dL 70-115 If you consider your patient code=POCGLUC) critically ill, the [place] Accu-Chek InformII metershould not be used for Glucose determinations.Draw a venous Glucose and send to the Main Lab for Analysis. XR CHEST 2 [id number] 18:35:18CLINICAL INFORMATION: Preprocedural evaluation. Checkup..Dictation Location: R 16Comparison: No prior.Findings: The heart size and pulmonary vessels are unremarkable.No active consolidation, effusion, or soft tissue mass is identified.Mild vertebral spurring.IMPRESSION: No active disease of the heart or lungs identified.Basic Metabolic [id number] 18:23:00 Test Item Value Reference Range [...] race is not provided, and the patient isAfrican-Guyanese, multiply by 1.212. If sex is not [...] the National Kidney Foundation,http://nkdep.nih .gov CBC with [id number] 18:08:00 Test Item Value Reference Range Comments [...] Lymph Abs (test code=ALYMPH) 2.0 K/cumm 0.5-4.6 [place] Abs (test code=AMONO) 0.3 K/cumm 0.0-1.2 Eos Abs (test code=AEOS) 0.14 K/cumm 0.00-0.74 Baso Abs (test code=ABASO) 0.0 K/cumm 0.00-0.21 US DUPLX EXT VEIN COMPRS, [id number] 13:22:06DICTATION LOCATION: [id number]: I82.409: ACUTE EMBOLISM AND THOMBOS UNSP DEEP [...]
[2019-01-01] MEDS ORDERED: MAGNE/ALUM HYDROXD 30 ML UCUP ONE (17:41)
[2019-01-01] MEDS ORDERED: NA CHLORIDE 0.9% 1,000 ML ONE (17:42)
[2019-01-01] MEDS ORDERED: LIDOCAINE VISCOUS 2% SOLN 15 ML UDC ONE (17:42)
[2019-01-01] MEDS ORDERED: FAMOTIDINE 20 MG/2 ML VIAL IV ONE (17:42)
[2019-01-01] MEDS ORDERED: ONDANSETRON 4 MG/2 ML VIAL ONE (17:42)
[2019-01-01] MEDS ORDERED: MORPHINE 4 MG/ML SYR ONE (17:42)
[2019-01-01 17:43] LABS: Absolute Lymphocytes (CBC) 1.9 K/uL (0.7-4.9); Absolute Monocytes 0.5 K/uL (0.1-1.3); Absolute Neutrophil 4.5 K/uL (1.8-8.0); Basophils % 0.6 % (0-1.3); Eosinophils % 1.4 % (0-4.4); Hematocrit 38.6 % (36.0-45.0); Lymphocytes % 27.2 % (15.3-44.8); MPV 9.5 fL (7.6-11.3); Monocytes % 7.3 % (3.3-12.3)
[2019-01-01 18:11] LABS: Urine Blood NEGATIVE (NEG); Urine Glucose NEGATIVE (NEG); Urine Protein NEGATIVE (NEG); Urine pH 5.5 (5.0-7.0)
[2019-01-01 18:15] LABS: ALT/SGPT 32 U/L (12-78); AST/SGOT 19 U/L (15-37); Albumin 3.8 g/dL (3.4-5.0); Alkaline Phosphatase 96 U/L (45-117); BUN Blood Urea Nitrogen 18 mg/dL (7-18); Bicarbonate 25 mmol/L (21-32); Bilirubin Direct < 0.1 mg/dL (0-0.2); Bilirubin Total 0.3 mg/dL (0.2-1.0); Glucose Level 80 mg/dL (74-106); Lipase 108 U/L (73-393); Potassium 3.7 mmol/L (3.5-5.1); Protein, Total 7.4 g/dL (6.4-8.2); Sodium Level 143 mmol/L (136-145)
--- NOTE | 2019-01-01 18:48 | ER ---
Nurse's Notes [facility] Name: Kat Aguilar Age: 48 yrs Sex: Female : 1970 Arrival Date: 01/01/2019 Time: 16:37 Bed 19 Private MD: Diagnosis: Epigastric pain Presentation: 01/01 16:40 Presenting complaint: Patient states: i got this morning not feeling well, just hj nauseous, denies vomiting; i feel like i have to catch my breath, reports chest pain, 7/10; reports pain in between the shoulder blade, denies fever and chills;. Transition of care: patient was not received from another setting of care. Onset of symptoms was January 01, 2019. Risk Assessment: Do you want to hurt yourself or someone else? Patient reports no desire to harm self or others. Initial Sepsis Screen: Does the patient meet any 2 criteria? No. Patient's initial sepsis screen is negative. Does the patient have a suspected source of infection? No. Patient's initial sepsis screen is negative. Care prior to arrival: None. 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 - Social history:: Patient/guardian denies using alcohol, street drugs, The patient lives with family, Smoking status: Patient/guardian denies using tobacco. - Family history:: not pertinent. - Ebola Screening: : Patient negative for fever greater than or equal to 101.5 degrees Fahrenheit, and additional compatible Ebola Virus Disease symptoms Patient denies exposure to infectious person Patient denies travel to an Ebola-affected area in the 21 days before illness onset No symptoms or risks identified at this time. Screenin:15 Abuse screen: Denies threats or abuse. Nutritional screening: No deficits noted. iw Tuberculosis screening: No symptoms or risk factors identified. Fall Risk None identified. Assessment: 17:15 General: Appears in no apparent distress. comfortable, Behavior is calm, cooperative. iw Pain: Complains of pain in epigastric area Pain currently is 8 out of 10 on a pain scale. Neuro: Level of Consciousness is awake, alert, obeys commands, Oriented to person, place, time, situation. Cardiovascular: Heart tones S1 S2 present Capillary refill < 3 seconds Patient's skin is warm and dry. Rhythm is regular. Respiratory: Airway is patent Respiratory effort is even, unlabored, Respiratory pattern is regular, symmetrical, Breath sounds are clear bilaterally. GI: Abdomen is flat, Bowel sounds present X 4 quads. Abd is soft X 4 quads Abdomen is tender to palpation in right upper quadrant and left upper quadrant Reports nausea, Patient currently denies vomiting. Derm: Skin is intact, is healthy with good turgor, Skin is pink, warm \T\ dry. Musculoskeletal: Capillary refill < 3 seconds, Range of motion: intact in all extremities. 18:24 Reassessment: Patient appears in no apparent distress at this time. Patient and/or em family updated on plan of care and expected duration. Pain level reassessed. Patient is alert, oriented x 3, equal unlabored respirations, skin warm/dry/pink. rates pain 6/10, reports not feeling better. Vital Signs: 16:43 BP 117 / 72; Pulse 87; Resp 18; Temp 97.5(TE); Pulse Ox 98% on R/A; Weight 97.52 kg; hj Height 5 ft. 2 in. (157.48 cm); Pain 7/10; 18:00 BP 108 / 62; Pulse 64; Pulse Ox 98% on R/A; Pain 8/10; iw 16:43 Body Mass Index 39.32 (97.52 kg, 157.48 cm) ED Course: 16:37 Patient arrived in ED. mr 16:42 Triage completed. hj 16:44 Arm band placed on left wrist. hj 16:47 Wilfredo Martinez LVN is Primary Nurse. em 16:59 Horace Bro MD is Attending Physician. [facility] 16:59 EKG done, by electrical controls technician. reviewed by Horace Bro MD. 3 17:15 Patient has correct armband on for positive identification. Placed in gown. Bed in low iw position. Call light in reach. Pulse ox on. NIBP on. 17:30 Initial lab(s) drawn, by me, sent to lab. Inserted saline lock: 22 gauge in right iw forearm, using aseptic technique. Blood collected. 19:14 No provider procedures requiring assistance completed. IV discontinued, intact, em bleeding controlled, No redness/swelling at site. Pressure dressing applied. Administered Medications: 17:40 Drug: GI Cocktail without - (Maalox Suspension 30 ml, Lidocaine Liquid 2 % 15 em ml) Route: PO; 19:00 Follow up: Response: No adverse reaction em 17:41 Drug: NS 0.9% 1000 ml Route: IV; Rate: 1 bolus; Site: right forearm; em 19:00 Follow up: IV Status: Completed infusion; IV Intake: 1000ml em 17:46 Drug: Pepcid 20 mg Route: IVP; Site: right forearm; iw 19:00 Follow up: Response: No adverse reaction em 17:46 Drug: morphine 4 mg Route: IVP; Site: right forearm; iw 19:00 Follow up: Response: No adverse reaction; Pain is decreased em 17:46 Drug: Zofran 4 mg Route: IVP; Site: right forearm; iw 19:00 Follow up: Response: No adverse reaction; Nausea is decreased em Intake: 19:00 IV: 1000ml; Total: 1000ml. em Outcome: 18:47 Discharge ordered by MD. isbell 19:14 Discharged to home ambulatory. em 19:14 Condition: good 19:14 Discharge instructions given to patient, Instructed on discharge instructions, follow up and referral plans. medication usage, Demonstrated understanding of instructions, follow-up care, medications, Prescriptions given X 3. 19:14 Patient left the ED. em Signatures: Carr Cynthia Martinez, Wilfredo, LIFE AGENT LIFE AGENT em Mame Mckenzie, Jonathan Brown RN, RN RN hj Alzahri, Mohammad, MD MD ma2 Montes, Shakira 3 Corrections: (The following items were deleted from the chart) 16:46 16:43 Pulse 87bpm; Resp 18bpm; Pulse Ox 98% RA; Temp 97.5F Temporal; 97.52 kg; Height 5 hj ft. 2 in.; BMI: 39.3; Pain 7/10; hj
--- NOTE | 2019-01-01 18:48 | EDPHYS ---
Physician Documentation [facility] Name: Kat Aguilar Age: 48 yrs Sex: Female : 1970 Arrival Date: 01/01/2019 Time: 16:37 Bed 19 Private MD: ED Physician Horace Bro HPI: 01/01 17:07 This 48 yrs old Female presents to ER via Ambulatory with complaints of ma2 Breathing Difficulty, Nausea. 17:07 Onset: The symptoms/episode began/occurred suddenly, 1 hour(s) ago. Duration: The ma2 symptoms are continuous. Associated signs and symptoms: Pertinent positives: nausea, epigastric abd pain, Pertinent negatives: productive cough, fever, loss of consciousness, numbness in extremities. Severity of symptoms: At their worst the symptoms were mild in the emergency department the symptoms have improved. The patient has not experienced similar symptoms in the past. 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 - Social history:: Patient/guardian denies using alcohol, street drugs, The patient lives with family, Smoking status: Patient/guardian denies using tobacco. - Family history:: not pertinent. - Ebola Screening: : Patient negative for fever greater than or equal to 101.5 degrees Fahrenheit, and additional compatible Ebola Virus Disease symptoms Patient denies exposure to infectious person Patient denies travel to an Ebola-affected area in the 21 days before illness onset No symptoms or risks identified at this time. ROS: 17:07 Constitutional: Negative for fever, chills, and weight loss. ma2 17:07 Abdomen/GI: Positive for abdominal pain, nausea, Negative for vomiting, diarrhea, constipation, abdominal cramps, black/tarry stool, rectal pain. 17:07 All other systems are negative. Exam: 17:07 Constitutional: This is a well developed, well nourished patient who is awake, alert, ma2 and in no acute distress. Head/Face: Normocephalic, atraumatic. Eyes: Pupils equal round and reactive to light, extra-ocular motions intact. Lids and lashes normal. Conjunctiva and sclera are non-icteric and not injected. Cornea within normal limits. Periorbital areas with no swelling, redness, or edema. ENT: Nares patent. No nasal discharge, no septal abnormalities noted. Tympanic membranes are normal and external auditory canals are clear. Oropharynx with no redness, swelling, or masses, exudates, or evidence of obstruction, uvula midline. Mucous membranes moist. Neck: Trachea midline, no thyromegaly or masses palpated, and no cervical lymphadenopathy. Supple, full range of motion without nuchal rigidity, or vertebral point tenderness. No Meningismus. Chest/axilla: Normal chest wall appearance and motion. Nontender with no deformity. No lesions are appreciated. Cardiovascular: Regular rate and rhythm with a normal S1 and S2. No gallops, murmurs, or rubs. Normal PMI, no JVD. No pulse deficits. Respiratory: Lungs have equal breath sounds bilaterally, clear to auscultation and percussion. No rales, rhonchi or wheezes noted. No increased work of breathing, no retractions or nasal flaring. Back: No spinal tenderness. No costovertebral tenderness. Full range of motion. Skin: Warm, dry with normal turgor. Normal color with no rashes, no lesions, and no evidence of cellulitis. MS/ Extremity: Pulses equal, no cyanosis. Neurovascular intact. Full, normal range of motion. Neuro: Awake and alert, GCS 15, oriented to person, place, time, and situation. Cranial nerves II-XII grossly intact. Motor strength 5/5 in all extremities. Sensory grossly intact. Cerebellar exam normal. Normal gait. 17:07 Abdomen/GI: Inspection: abdomen appears normal, Bowel sounds: normal, Palpation: soft, mild abdominal tenderness, in the epigastric area, mass, is not appreciated, rebound tenderness, is not appreciated, voluntary guarding, is not appreciated, involuntary guarding, is not appreciated. Vital Signs: 16:43 BP 117 / 72; Pulse 87; Resp 18; Temp 97.5(TE); Pulse Ox 98% on R/A; Weight 97.52 kg; hj Height 5 ft. 2 in. (157.48 cm); Pain 7/10; 18:00 BP 108 / 62; Pulse 64; Pulse Ox 98% on R/A; Pain 8/10; iw 16:43 Body Mass Index 39.32 (97.52 kg, 157.48 cm) hj MDM: 16:59 Patient medically screened. ma2 17:07 Differential diagnosis: Anemia reactive airway disease, epigastric abd pain. ma2 18:47 Data reviewed: vital signs, nurses notes, EMS record. Counseling: I had a detailed ma2 discussion with the patient and/or guardian regarding: the historical points, exam findings, and any diagnostic results supporting the discharge/admit diagnosis, the presence of at least one elevated blood pressure reading (>120/80) during this emergency department visit, the need for outpatient follow up. Response to treatment: the patient's symptoms have markedly improved after treatment. 01/01 17:07 Order name: Basic Metabolic Panel; Complete Time: 18:42 ma2 01/01 17:07 Order name: CBC with Diff; Complete Time: 18:42 ma2 01/01 17:07 Order name: Creatinine for Radiology; Complete Time: 18:42 ma2 01/01 17:07 Order name: Hepatic Function; Complete Time: 18:42 ma2 01/01 17:07 Order name: Lipase; Complete Time: 18:42 ma2 01/01 17:10 Order name: Troponin I; Complete Time: 18:42 ma2 01/01 17:28 Order name: EKG Electrocardiogram; Complete Time: 17:55 EDMS 01/01 17:34 Order name: Urine Dipstick--Ancillary (enter results); Complete Time: 18:42 ms 01/01 17:34 Order name: Urine --Ancillary (enter results); Complete Time: 18:42 ms 01/01 17:07 Order name: IV Saline Lock; Complete Time: 17:41 ma2 01/01 17:07 Order name: Labs collected and sent; Complete Time: 17:41 ma2 01/01 17:07 Order name: Urine Dipstick-Ancillary (obtain specimen); Complete Time: 17:41 ma2 Administered Medications: 17:40 Drug: GI Cocktail without - (Maalox Suspension 30 ml, Lidocaine Liquid 2 % 15 em ml) Route: PO; 19:00 Follow up: Response: No adverse reaction em 17:41 Drug: NS 0.9% 1000 ml Route: IV; Rate: 1 bolus; Site: right forearm; em 19:00 Follow up: IV Status: Completed infusion; IV Intake: 1000ml em 17:46 Drug: Pepcid 20 mg Route: IVP; Site: right forearm; iw 19:00 Follow up: Response: No adverse reaction em 17:46 Drug: morphine 4 mg Route: IVP; Site: right forearm; iw 19:00 Follow up: Response: No adverse reaction; Pain is decreased em 17:46 Drug: Zofran 4 mg Route: IVP; Site: right forearm; iw 19:00 Follow up: Response: No adverse reaction; Nausea is decreased em Disposition: 01/01/19 18:47 Discharged to Home. Impression: Epigastric pain. - Condition is Stable. - Discharge Instructions: Abdominal Pain, Adult. - Prescriptions for Pepcid 20 mg Oral Tablet - take 1 tablet by ORAL route every 12 hours for 10 days; 20 tablet. Tylenol- Codeine #4 300-60 mg Oral Tablet - take 1 tablet by ORAL route every 6 hours As needed; 6 tablet. Zofran 4 mg Oral Tablet - take 1 tablet by ORAL route every 12 hours As needed; 20 tablet. - Medication Reconciliation Form, Thank You Letter, Antibiotic Education, Prescription Opioid Use form. - Follow up: Private Physician; When: Tomorrow; Reason: Continuance of care. Signatures: Dispatcher [employer] ALEXANDERHI Wilfredo Martinez, TRAINING AND DEVELOPMENT DIRECTOR TRAINING AND DEVELOPMENT DIRECTOR em Mame Mckenzie RN RN Jonathan Miller RN RN Horace Bro MD MD ma2 Corrections: (The following items were deleted from the chart) 19:14 18:47 01/01/2019 18:47 Discharged to Home. Impression: Epigastric pain. Condition is em Stable. Prescriptions for Pepcid 20 mg Oral Tablet - take 1 tablet by ORAL route every 12 hours for 10 days; 20 tablet, Tylenol-Codeine #4 300-60 mg Oral Tablet - take 1 tablet by ORAL route every 6 hours As needed; 6 tablet, Zofran 4 mg Oral Tablet - take 1 tablet by ORAL route every 12 hours As needed; 20 tablet. and Forms are Medication Reconciliation Form, Thank You Letter, Antibiotic Education, Prescription Opioid Use. Follow up: Private Physician; When: Tomorrow; Reason: Continuance of care. ma2
[2019-01-01 19:23] VITALS: TEMP 97.5; O2SAT 98
[2019-01-01 19:24] VITALS: BP 108/62
--- NOTE | 2019-01-02 10:29 | EKG ---
Test Date: 2019-01-01 Test Time: 16:54:09 Assembler Watch Train: JUSTYNA MEASUREMENT RESULTS: Intervals: Rate: 78 NE: 144 QRSD: 86 QT: 384 QTc: 437 Cooter: P: 56 NE: 144 QRS: 79 T: 42 INTERPRETIVE STATEMENTS: Normal sinus rhythm Normal ECG Compared to ECG 10/13/2018 07:34:32 Sinus bradycardia no longer present Electronically Signed On 01-02-19 10:28:21 CDT by Robson Charles
== END 2019-01-01 19:14 | disposition home or self-care (01) ==
LOC: ER 16:34
DX: R10.13 Epigastric pain (principal); Z88.6 Allergy status to analgesic agent; Z91.040 Latex allergy status; Z88.2 Allergy status to sulfonamides
CPT/HCPCS: 36415; 80048; 80076; 81003; 81025; 83690; 84484; 85025; 93005; 96361; 96374; 96375; 99284; J2405; J7030

== ENCOUNTER 2019-11-19 05:40 | Emergency (ER) | payer MEDICAID ==
--- OUTSIDE RECORDS SUMMARY | 2019-11-19 05:48 | XMS REPORT | Summary of Care ---
:1970 Author Organization [facility] - [facility] Address [address] [place] [id number] Care Team Providers Name Role Phone Robert Radford MD Unavailable Unavailable Gorge Hagen DO Primary Care Provider Reason for Visit Reason Comments LAB Encounter Details Date Type Department Care Team Description 03/31/2019 Bread Supervisor Visit [facility] Tracey Cotter MD [address] [place] [address] Adrenal nodule [facility] [address] [place] [address] Allergies Active Allergy Reactions Severity Noted Date Comments Iodine And Iodide Swelling 09/08/2015 Patient said that she Containing Products can and has taken IV contrast successfully before as long as she is premedicated with Benadryl beforehand. She denies any history of anaphylaxis and said that the reaction she usually has when not medicated with Benadryl is hives. Latex Rash 11/26/2013 Latex gel - patient cannot wear latex gloves - but can tolerate surgeries where latex gloves are worn by care givers. Nitrofurantoin Rash 03/02/2018 Monohyd/M-Cryst Nsaids (Non-Steroidal Unknown - See High 06/08/2018 Not allowed to have Anti-Inflammatory Drug) comments Sulfa (Sulfonamide Hives 11/18/2014 Antibiotics) Ketorolac Tromethamine Hives 11/26/2013 documented as of this encounter (statuses as of 04/01/2019) Medications Medication Sig Dispensed Refills Start Date End Date Status PROAIR HFA 90 Inhale 1 Puff every 0 12/11/2015 Active mcg/actuation 4 (four) hours as inhaler needed. rOPINIRole 1 mg Take 1 mg by mouth 1 03/05/2017 Active tablet every morning. estradiol 1 mg Take 1 tablet by 30 tablet 11 03/02/2018 Active tablet mouth daily. Polyethylene Glycol Take 1 Packet by 30 Packet 2 06/08/2018 Active 3350 (MIRALAX) 17 mouth as needed for gram Constipation. powderIndications: Chronic fatigue, Hypothyroidism, unspecified type linaclotide Take 290 mcg by 30 capsule 2 06/08/2018 Active (LINZESS) 290 mcg mouth daily. CapIndications: Chronic fatigue, Hypothyroidism, unspecified type proMETHazine 25 mg Take 1 tablet by 12 tablet 0 09/14/2018 Active tablet mouth every 6 (six) hours as needed for Nausea and Vomiting (N/V) or N/V unresponsive to Ondansetron. eszopiclone Take 3 mg by mouth 0 Active (LUNESTA) 3 mg at bedtime. tabletIndications: Bradycardia, Atypical chest pain, Fatigue, unspecified type, Recurrent chest pain lisinopril 20 mg 0 10/18/2018 Active tablet metformin ER 500 mg Take 1 tablet by 45 tablet 1 10/19/2018 Active 24 hr mouth daily with tabletIndications: breakfast. Type 2 diabetes mellitus without complication, without long-term current use of insulin CETIRIZINE 10 mg TAKE 1 TABLET BY 30 tablet 2 01/07/2019 Active tabletIndications: MOUTH EVERY DAY Chronic fatigue, Hypothyroidism, unspecified type GABAPENTIN 300 mg TAKE 1 CAPSULE BY 60 capsule 2 01/25/2019 Active capsuleIndications: MOUTH TWICE A DAY Lumbar back pain with radiculopathy affecting right lower extremity hydrOXYzine 50 mg TAKE 4 TABLETS 2 11/14/2018 Active tablet ORALLY DAILY DIRECTED peg-electrolyte soln Take as directed 4000 mL 0 02/04/2019 Active 236-22.74-6.74 -5.86 before colonoscopy gram solutionIndications: Rectal pain hydrocortisone-pramo Insert 1 Applicator 10 g 1 02/04/2019 Active vine (PROCTOFOAM HC) into rectum 2 (two) rectal times daily. foamIndications: Rectal pain pantoprazole sodium Take by mouth. 0 Active (PROTONIX ORAL) dicyclomine 20 mg Take 1 tablet by 20 tablet 0 02/08/2019 Active tabletIndications: mouth every 6 (six) Abdominal pain, hours as needed for unspecified Abdominal pain. abdominal location ondansetron 4 mg Take 2 tablets by 20 tablet 0 02/08/2019 Active tabletIndications: mouth every 8 Abdominal pain, (eight) hours as unspecified needed for Nausea abdominal location and Vomiting (N/V). pregabalin (LYRICA Take by mouth. 0 Active ORAL) diazePAM 5 mg tablet Take 1 tablet by 30 tablet 0 02/11/2019 Active mouth at bedtime. levothyroxine 50 mcg Take 1 tablet by 30 tablet 2 02/19/2019 Active tabletIndications: mouth every Hypothyroidism, morning. unspecified type METFORMIN ER 500 mg TAKE 1 TABLET BY 90 tablet 1 02/23/2019 Active 24 hr MOUTH EVERY DAY tabletIndications: WITH BREAKFAST Type 2 diabetes mellitus without complication, without long-term current use of insulin CETIRIZINE 10 mg TAKE 1 TABLET BY 30 tablet 2 02/23/2019 Active tabletIndications: MOUTH EVERY DAY Chronic fatigue, Hypothyroidism, unspecified type dexAMETHasone 1 mg Please take at 11pm 1 tablet 0 03/30/2019 Active tabletIndications: tonight Adrenal nodule documented as of this encounter (statuses as of 04/01/2019) Active Problems Problem Noted Date Obesity (BMI 30-39.9) 02/09/2019 Rectal pain 02/04/2019 Intractable abdominal pain 12/21/2018 Intractable pain 12/21/2018 Costochondritis, acute 10/01/2018 Bradycardia 10/01/2018 S/P total knee arthroplasty 04/14/2017 Chest pain 09/27/2016 Thumb pain, right 07/23/2016 Gamekeeper thumb 06/28/2016 Right knee pain 04/10/2016 Type 2 diabetes mellitus without complication 06/14/2015 Abnormal EKG 12/29/2014 Vitamin D deficiency 12/30/2013 Morbid obesity 11/26/2013 Essential hypertension, benign 11/26/2013 Dyslipidemia 11/26/2013 Overview: Diet controlled Bipolar 1 disorder 11/26/2013 BMI 50.0-59.9, adult PIERRE (obstructive sleep apnea) Overview: CPAP at 16 cm H2O GERD (gastroesophageal reflux disease) Hypothyroid Depression Asthma Seasonal allergies IBS (irritable bowel syndrome) SISI (iron deficiency anemia) Type 2 diabetes mellitus without complications Overview: ICD10 Diagnosis Term Tax Services Specialist Utility documented as of this encounter (statuses as of 04/01/2019) Resolved Problems Problem Noted Date Resolved Date Type 2 diabetes mellitus 11/26/2013 12/30/2013 documented as of this encounter (statuses as of 04/01/2019) Immunizations Name Administration Dates Next Due Influenza Virus Vaccine 06/21/2017 Influenza Virus Vaccine Quad ID [id number] YRS 06/08/2018 Tdap 03/19/2017 documented as of this encounter Social History Tobacco Use Types Packs/Day Years Used Date Former Smoker Cigarettes 1 28 Quit: 05/28/2013 Smokeless Tobacco: Never Used Alcohol Use Drinks/Week oz/Week Comments Yes 0 Standard drinks or equivalent 0.0 Rare Sex Assigned at Date Recorded Not on file Job Start Date Occupation Industry Not on file Not on file Not on file Travel History Travel Start Travel End No recent travel history available. documented as of this encounter Last Filed Vital Signs Not on filedocumented in this encounter Plan of Treatment Date Type Specialty Care Team Description 04/06/2019 Office Visit Internal Medicine Clint Arevalo MD [address] [place] [phone] 05/04/2019 Office Visit Neurology Kirill Arango MD [address] [place] [phone] 05/05/2019 Office Visit Obstetrics & Gynecology Ileana Cordova MD [address] [place] [address] [phone] 05/06/2019 Office Visit Internal Medicine Bernice Arzate MD [address] [place] [phone] 06/03/2019 Office Visit Gastroenterology Jaciel Boucher MD [address] [place] [address] [address] [place] [phone] 06/09/2019 Office Visit Endocrinology Diabetes & Sayda Rosas, EVAPORATOR OPERATOR Metabolism [address] [place] [address] [phone] Health Maintenance Due Date Last Done Comments PNEUMOCOCCAL 0-64 YEARS COMBINED 1975 SERIES (1 of 1 - PPSV23) URINE MICROALBUMIN 1979 EYE EXAM 01/15/2017 01/16/2016 INFLUENZA VACCINE 05/09/2019 06/08/2018, 06/21/2017, 06/25/2016 MAMMOGRAM 05/15/2019 05/15/2018, 03/21/2017, 04/17/2016, Additional history exists HgA1C 09/30/2019 03/30/2019, 10/19/2018, 06/08/2018, Additional history exists LDL-C 10/19/2019 10/19/2018, 07/17/2018, 06/08/2018, Additional history exists CREATININE (SERUM) 03/20/2020 03/20/2019, 02/08/2019, 12/24/2018, Additional history exists FOOT EXAM 03/30/2020 03/30/2019, 03/30/2019, 10/19/2018, Additional history exists DTaP,Tdap,and Td Vaccines (2 - 03/19/2027 03/19/2017 Td) PAP SMEAR Discontinued 05/21/2011, 12/09/2006 documented as of this encounter Implants Implanted Type Area Toll Collector Device Shelf Model / Identifier Expiration Serial / Lot Date Dbm Putty Maxxeus .5cc Cts #[id number] - Sn/A BONE Right: Community Tissue 03/07/2018 / Implanted: Qty: 1 on 08/14/2016 by Biju Middleton at [facility] AT [facility] N/A / [id number] Cement CEMENT Right: Yvonne 08/07/2018 [id number] / Implanted: Qty: 1 on 04/14/2017 by Michael Hernandez MD at [facility] Knee [id number] / [id number] Cr Tibial Bearing KNEE Right: [employer] 02/18/2022 [id number] / Implanted: Qty: 1 on 04/14/2017 by Michael Hernandez MD at [facility] Knee [id number] / [id number] Cr Femoral Right KNEE Right: [employer] 03/17/2027 [id number] / Implanted: Qty: 1 on 04/14/2017 by Michael Hernandez MD at [facility] Knee [id number] / [id number] Primary Tibial Modular Tray KNEE Right: [employer] 01/16/2021 [id number] / Implanted: Qty: 1 on 04/14/2017 by Michael Hernandez MD at [facility] Knee [id number] / [id number] Standard Patella PATELLA Right: [employer] 01/22/2022 [id number] / Implanted: Qty: 1 on 04/14/2017 by Michael Hernandez MD at [facility] Knee [id number] / [id number] Screw Bone Ti 2.7mm Acumed #Co-F2710 - S2 Aug 23 SCREW Right: [employer] [id number] / Implanted: Qty: 2 on 08/14/2016 by Biju Middleton at [facility] 2 16 AUG 23 / NA Description: right mcp joint Screw Bone Ti 2.7mm Acumed #Co-F2712 - S2 Aug 23 SCREW Right: Hand [employer] [id number] / Implanted: Qty: 1 on 08/14/2016 by Biju Middleton at [facility] 2 16 AUG 23 / NA Description: right mcp joint Screw Bone Ti 2.7mm Acumed #Co-F2708 - Sor Sterlization SCREW Right: Hand [employer] CO-[id number] / Implanted: Qty: 1 on 08/14/2016 by Biju Middleton at [facility] OR STERLIZATION / OR STERILIZATION Description: Load # Screw Bone Ti 2.7mm Acumed #Co-F2706 - [id number] SCREW Right: Hand [employer] CO-[id number] / Implanted: Qty: 1 on 08/14/2016 by Biju Middleton at [facility] N/A / N/A Bone Screw SCREW Right: Knee [employer] 10/27/2026 [id number] / Implanted: Qty: 1 on 04/14/2017 by Michael Hernandez MD at [facility] [id number] / [id number] Bone Screw SCREW Right: Knee [employer] 08/15/2026 [id number] / Implanted: Qty: 1 on 04/14/2017 by Michael Hernandez MD at [facility] [id number] / [id number] Bone Screw SCREW Right: Knee [employer] 10/27/2026 [id number] / Implanted: Qty: 1 on 04/14/2017 by Michael Hernandez MD at [facility] [id number] / [id number] Bone Screw SCREW Right: Knee [employer] 08/21/2025 [id number] / Implanted: Qty: 1 on 04/14/2017 by iMchael Hernandez MD at [facility] [id number] / [id number] Modular Finned Stem Stem Right: Knee [employer] 02/12/2027 [id number] / Implanted: Qty: 1 on 04/14/2017 by Michael Hernandez MD at [facility] [id number] / [id number] Cammulated Interference Screw Right: Hand [employer] 11/01/2020 [id number] / Implanted: Qty: 2 on 05/06/2016 by Biju Middleton at [facility] N/A / [id number] Mcp Fusion Plate, Right Right: Hand [employer] [id number] / Implanted: Qty: 1 on 08/14/2016 by Biju Middleton at [facility] AT [facility] 2 16 16 DEC 16 / documented as of this encounter Procedures Procedure Name Priority Date/Time Associated Diagnosis Comments CORTISOL AM Routine 03/31/2019 7:19 AM Adrenal nodule Results for this CDT procedure are in the results section. documented in this encounter Results CORTISOL AM (03/31/2019 7:19 AM CDT) MEGAN AM 1.1 (L) 4.5 - 23.0 ug/dL [facility] Specimen Blood Narrative Performed At [facility] has been reported to cause a positive bias, interpret [facility] results relative to patient's use of biotin. Performing Organization Address City/State/Zipcode Phone Number [facility] CLIA: [id number], [address] [place] [id number] [phone] [facility] documented in this encounter Visit Diagnoses Diagnosis Adrenal nodule Benign neoplasm of adrenal gland documented in this encounter Insurance Payer Benefit Plan / Subscriber ID Effective Phone Address Type Group Dates ANTHONY CRUZ xxxxxxxxx 2015-Srinivasan [place]ILLAN [place] [id number] [place], [place] documented as of this encounter
--- OUTSIDE RECORDS SUMMARY | 2019-11-19 05:48 | XMS REPORT ---
:1970 Author Organization [facility] Address [address] [place] [address] Care Team Providers Name Role Phone UNKNOWN, REFFERING Primary Care Provider Unavailable SULEMA BUCHANAN Unavailable Unavailable JOE CARVALHO M.D. Unavailable Unavailable PIYUSH [...] 00:00:0 Antibiotics 0 ) ketorolac DA [facility] 2016[facility] 00:00:0 0 latex DA Active [facility] 2016-11 00:00:0 0 Medications This patient has no known medications. Encounters Start End Encounter Admission Attending Care Care Encounter Date/Time Date/Time Type Type Clinicians Facility Department ID 2017-05-22 Inpatient [facility] MED [id number] 16:23:00 2019-01-11 2019-01-11 Emergency E [facility] [id number] 23:33:00 23:33:00 2017-12-23 2017-12-23 Emergency E [facility] [id number] 15:29:00 15:29:00 PIYUSH 2017-07-30 2017-07-30 Outpatient C [facility] [id number] 12:09:00 12:09:00 2017-07-09 2017-07-09 Outpatient C [facility] [id number] 00:01:00 00:01:00 2017-06-17 2017-06-17 Outpatient C [facility] [id number] 18:46:00 18:46:00 2017-06-08 2017-06-08 Outpatient C [facility] [id number] 00:01:00 00:01:00 2017-06-06 2017-06-06 Outpatient C [facility] [id number] 21:11:00 21:11:00 Results Test Description Test Time Test Comments Text Results Atomic Results Result Comments Basic Metabolic Panel 2019-08-12 06:39:55 Test Item Value Reference Range Comments Sodium Level (test code=Sodium Level) 143.0 mmol/L 135.0-145.0 Potassium Level (test code=Potassium Level) 4.2 mmol/L 3.5-5.1 Chloride Level (test code=Chloride Level) 104 mmol/L 98-105 CO2 (test code=CO2) 31 mmol/L 22-29 Anion Gap (test code=Anion Gap) 8 mmol/L 7-16 BUN (test code=BUN) 8.60 mg/dL 6.00-20.00 Creatinine Level (test code=Creatinine Level) 0.50 mg/dL 0.50-0.90 BUN/Creat Ratio (test code=BUN/Creat Ratio) 17 Glucose Level (test code=Glucose Level) 101 mg/dL 70-115 Calcium Level (test code=Calcium Level) 8.9 mg/dL 8.3-10.5 Basic Metabolic [id number] 06:39:55 Test Item Value Reference Range Comments Sodium Level (test 143.0 mmol/L 135.0-145.0 code=Sodium Level) Potassium Level (test 4.2 mmol/L 3.5-5.1 code=Potassium Level) Chloride Level (test 104 mmol/L 98-105 code=Chloride Level) CO2 (test code=CO2) 31 mmol/L 22-29 Anion Gap (test 8 mmol/L 7-16 code=Anion Gap) BUN (test code=BUN) 8.60 mg/dL 6.00-20.00 Creatinine Level (test 0.50 mg/dL 0.50-0.90 code=Creatinine Level) BUN/Creat Ratio (test 17 code=BUN/Creat Ratio) Glucose Level (test 101 mg/dL 70-115 code=Glucose Level) Calcium Level (test 8.9 mg/dL 8.3-10.5 code=Calcium Level) eGFR AA (test code=eGFR >60 mL/min/1.73 m2 eGFR (estimated AA) Glomerular Filtration Rate) is an estimated value, calculated from the patient's serum creatinine using the MDRD equation. It is NOT the patient's actual GFR. The eGFR provides a more clinically useful measure of kidney disease than serum creatinine alone.This calculation takes sex and race into account, if the information is provided. If the race is not provided, and the patient is -E[place]ian, multiply by 1.212. If sex is not provided, and the patient is female, multiply by 0.742. Results for patients <18 years of age have not been validated by the MDRD study and should be interpreted with caution. eGFR Result Interpretation:eGFR > or=60 is in the Normal RangeeGFR < 60 may mean kidney diseaseeGFR < 15 may mean kidney failure Ranges recommended by the National Kidney Foundation, http://nkdep.nih.gov Basic Metabolic [id number] 06:39:55 Test Item Value Reference Range Comments Sodium Level (test 143.0 mmol/L 135.0-145.0 code=Sodium Level) Potassium Level (test 4.2 mmol/L 3.5-5.1 code=Potassium Level) Chloride Level (test 104 mmol/L 98-105 code=Chloride Level) CO2 (test code=CO2) 31 mmol/L 22-29 Anion Gap (test 8 mmol/L 7-16 code=Anion Gap) BUN (test code=BUN) 8.60 mg/dL 6.00-20.00 Creatinine Level (test 0.50 mg/dL 0.50-0.90 code=Creatinine Level) BUN/Creat Ratio (test 17 code=BUN/Creat Ratio) Glucose Level (test 101 mg/dL 70-115 code=Glucose Level) Calcium Level (test 8.9 mg/dL 8.3-10.5 code=Calcium Level) eGFR AA (test code=eGFR >60 mL/min/1.73 m2 eGFR (estimated AA) Glomerular Filtration Rate) is an estimated value, calculated from the patient's serum creatinine using the MDRD equation. It is NOT the patient's actual GFR. The eGFR provides a more clinically useful measure of kidney disease than serum creatinine alone.This calculation takes sex and race into account, if the information is provided. If the race is not provided, and the patient is -E[place]ian, multiply by 1.212. If sex is not provided, and the patient is female, multiply by 0.742. Results for patients <18 years of age have not been validated by the MDRD study and should be interpreted with caution. eGFR Result Interpretation:eGFR > or=60 is in the Normal RangeeGFR < 60 may mean kidney diseaseeGFR < 15 may mean kidney failure Ranges recommended by the National Kidney Foundation, http://nkdep.nih.gov eGFR Non-AA (test >60.00 mL/min/1.73 eGFR (estimated code=eGFR Non-AA) m2 Glomerular Filtration Rate) is an estimated value, calculated from the patient's serum creatinine using the MDRD equation. It is NOT the patient's actual GFR. The eGFR provides a more clinically useful measure of kidney disease than serum creatinine alone.This calculation takes sex and race into account, if the information is provided. If the race is not provided, and the patient is -E[place]ian, multiply by 1.212. If sex is not provided, and the patient is female, multiply by 0.742. Results for patients <18 years of age have not been validated by the MDRD study and should be interpreted with caution. eGFR Result Interpretation:eGFR > or=60 is in the Normal RangeeGFR < 60 may mean kidney diseaseeGFR < 15 may mean kidney failure Ranges recommended by the National Kidney Foundation, http://nkdep.nih.gov Complete Blood Count with [id number] 06:13:20 Test Item Value Reference Range Comments WBC (test code=WBC) 4.8 x10 4.4-10.5 RBC (test code=RBC) 4.15 x10 3.75-5.20 Hgb (test code=Hgb) 11.8 g/dL 12.2-14.8 Hct (test code=Hct) 36.0 % 36.5-44.4 MCV (test code=MCV) 86.70 fL 80.00-100.00 MCHC (test code=MCHC) 32.80 g/dL 32.00-37.50 RDW CV (test code=RDW CV) 13.9 % 11.5-14.5 MCH (test code=MCH) 28.4 pg 27.0-32.5 Platelets (test 246.0 x10 140.0-440.0 code=Platelets) MPV (test code=MPV) 10.9 fL Slide Review (test code=Slide Auto Auto Result created by Review) GL_SJM_SLIDE_REV_AUTO nRBC (test code=nRBC) 0 NRBC Abs (test code=NRBC Abs) 0.00 x10 IPF (test code=IPF) 0 % Automated [id number] 06:13:20 Test Item Value Reference Range Comments Neutro Auto (test code=Neutro Auto) 52.5 % 36.0-70.0 Lymph Auto (test code=Lymph Auto) 37.2 % 12.0-44.0 Gilpin Auto (test code=Gilpin Auto) 7.6 % 0.0-11.0 Eos, Auto (test code=Eos, Auto) 2.1 % 0.0-7.0 Basophil Auto (test code=Basophil Auto) 0.4 % 0.0-2.0 Neutro Absolute (test code=Neutro Absolute) 2.5 x10 1.6-7.4 Lymph Absolute (test code=Lymph Absolute) 1.80 x10 .50-4.60 Gilpin Absolute (test code=Gilpin Absolute) .37 x10 .00-1.20 Eos Absolute (test code=Eos Absolute) 0.10 x10 0.00-0.74 Baso Absolute (test code=Baso Absolute) 0.02 x10 0.00-0.21 IG [id number] 06:13:20 Test Item Value Reference Range Comments IG (test code=IG) 0.2 % 0.0-5.0 IG Abs (test code=IG Abs) [address] Abdomen and Pelvis w/o [id number] 19:36:37Patient: JAI HARDEN Date/Time08/11/2019 18: 35 CSTReason for Examabd pain s/p gastric bypass;Other (please specify)ReportCT SCAN OF THE ABDOMEN AND PELVIS WITHOUT CONTRASTDictation Location: [id number] HISTORY: Abdominal pain status post gastric bypassTECHNIQUE: Helical CT of the abdomen and pelvis was performed without IV or oral contrast without complication. Exam was performed on an up-to-date helical CT scanner. Coronal and sagittal images were reconstructed.This exam was performed according to our departmental dose- optimization program, which includes automatic exposure control, adjustment of MA and/or KV according to patientsize, and or use of iterative reconstruction technique.DLP: A 53 mGy*cmFINDINGS:The visualized lung bases are clear. No evidence of pleural effusion. Liver is normal in size without masses or intrahepatic biliary dilatation. The gallbladder is surgically absent. The pancreas, spleen, and adrenal glands are normal. Both kidneys are normal in size and cortical thickness, without masses, calculi , or hydronephrosis. The visualized ureters are unremarkable. No evidence of free fluid or adenopathy. There is no evidence of focal soft tissue mass or abscess. There is no evidence of pancreatitis , pancreatic mass or calcifications.Postsurgical changes from gastric bypass are noted. No evidence of abnormal wall thickening or bowel distention. No free fluid, free air, obvious abscess. Colon unremarkable without evidence of colitis or diverticulitis. Normal air-filled appendix is seen onaxial image 68.The visualized bony, muscular and vascular structures are unremarkable.In the pelvis ,the bladder is normal. There has been prior hysterectomy. No pelvic free fluid or masses. No adnexal mass.IMPRESSION:1. No acute or significant abnormalities.2. Status post gastric bypass, cholecystectomy, hysterectomy. * Final Dictated by: MD Cristobal Maria VDictated DT/TM: 08/11/2019 7:33 pmSigned by: MD Cristobal Maria VSigned (Electronic Signature): 08/11/2019 7: 36 pmXR Chest 1 View [id number] 18:54:38Patient: JAI HARDEN Date/Time08/11/2019 18:39 CSTReason for ExamChest painReportCHEST X-RAY 1 VIEWDictation Location: [id number] HISTORY:Chest painTechnique:A single frontal view of the chest was obtained.Findings:Mild degenerative spurring is seen in the lower thoracic spine and at the right AC joint. The aortic, hilar, and cardiac outlines are normal. The lungs are clear of infiltrates or nodules. No pneumothorax. No pleural effusions.IMPRESSION:Normal 1 view chest x-ray. Final Dictated by: MD Cristobal Maria VDictatedDT/TM: 08/11/2019 6:54 pmSigned by: MD Cristobal Maria VSigned (Electronic Signature): 08/11/2019 6:54 pmLipase [id number] 17:36:02 Test Item Value Reference Range Comments Lipase Level (test code=Lipase Level) 20 U/L 13-60 Comprehensive Metabolic [id number] 17:36:01 Test Item Value Reference Range Comments Sodium Level (test code=Sodium Level) 141.0 mmol/L 135.0-145.0 Potassium Level (test code=Potassium Level) 4.8 mmol/L 3.5-5.1 Chloride Level (test code=Chloride Level) 101 mmol/L 98-105 CO2 (test code=CO2) 30 mmol/L 22-29 Anion Gap (test code=Anion Gap) 10 mmol/L 7-16 BUN (test code=BUN) 10.80 mg/dL 6.00-20.00 Creatinine Level (test code=Creatinine Level) 0.60 mg/dL 0.50-0.90 BUN/Creat Ratio (test code=BUN/Creat Ratio) 18 Glucose Level (test code=Glucose Level) 94 mg/dL 70-115 Calcium Level (test code=Calcium Level) 10.2 mg/dL 8.3-10.5 Alk Phos (test code=Alk Phos) 94 U/L 35-104 Bilirubin Total (test code=Bilirubin Total) 0.2 mg/dL 0.1-0.9 Albumin Level (test code=Albumin Level) 4.6 g/dL 3.5-5.2 Protein Total (test code=Protein Total) 7.5 g/dL 6.4-8.3 ALT (test code=ALT) 25 U/L 1-33 AST (test code=AST) 22 U/L 1-32 Globulin (test code=Globulin) 2.9 g/dL 2.9-3.1 A/G Ratio (test code=A/G Ratio) 1.6 ratio Comprehensive Metabolic [id number] 17:36:01 Test Item Value Reference Range Comments Sodium Level (test 141.0 mmol/L 135.0-145.0 code=Sodium Level) Potassium Level (test 4.8 mmol/L 3.5-5.1 code=Potassium Level) Chloride Level (test 101 mmol/L 98-105 code=Chloride Level) CO2 (test code=CO2) 30 mmol/L 22-29 Anion Gap (test 10 mmol/L 7-16 code=Anion Gap) BUN (test code=BUN) 10.80 mg/dL 6.00-20.00 Creatinine Level (test 0.60 mg/dL 0.50-0.90 code=Creatinine Level) BUN/Creat Ratio (test 18 code=BUN/Creat Ratio) Glucose Level (test 94 mg/dL 70-115 code=Glucose Level) Calcium Level (test 10.2 mg/dL 8.3-10.5 code=Calcium Level) Alk Phos (test code=Alk 94 U/L 35-104 Phos) Bilirubin Total (test 0.2 mg/dL 0.1-0.9 code=Bilirubin Total) Albumin Level (test 4.6 g/dL 3.5-5.2 code=Albumin Level) Protein Total (test 7.5 g/dL 6.4-8.3 code=Protein Total) ALT (test code=ALT) 25 U/L 1-33 AST (test code=AST) 22 U/L 1-32 Globulin (test 2.9 g/dL 2.9-3.1 code=Globulin) A/G Ratio (test code=A/G 1.6 ratio Ratio) eGFR AA (test code=eGFR >60 mL/min/1.73 m2 eGFR (estimated AA) Glomerular Filtration Rate) is an estimated value, calculated from the patient's serum creatinine using the MDRD equation. It is NOT the patient's actual GFR. The eGFR provides a more clinically useful measure of kidney disease than serum creatinine alone.This calculation takes sex and race into account, if the information is provided. If the race is not provided, and the patient is -E[place]ian, multiply by 1.212. If sex is not provided, and the patient is female, multiply by 0.742. Results for patients <18 years of age have not been validated by the MDRD study and should be interpreted with caution. eGFR Result Interpretation:eGFR > or=60 is in the Normal RangeeGFR < 60 may mean kidney diseaseeGFR < 15 may mean kidney failure Ranges recommended by the National Kidney Foundation, http://nkdep.nih.gov Comprehensive Metabolic [id number] 17:36:01 Test Item Value Reference Range Comments Sodium Level (test 141.0 mmol/L 135.0-145.0 code=Sodium Level) Potassium Level (test 4.8 mmol/L 3.5-5.1 code=Potassium Level) Chloride Level (test 101 mmol/L 98-105 code=Chloride Level) CO2 (test code=CO2) 30 mmol/L 22-29 Anion Gap (test 10 mmol/L 7-16 code=Anion Gap) BUN (test code=BUN) 10.80 mg/dL 6.00-20.00 Creatinine Level (test 0.60 mg/dL 0.50-0.90 code=Creatinine Level) BUN/Creat Ratio (test 18 code=BUN/Creat Ratio) Glucose Level (test 94 mg/dL 70-115 code=Glucose Level) Calcium Level (test 10.2 mg/dL 8.3-10.5 code=Calcium Level) Alk Phos (test code=Alk 94 U/L 35-104 Phos) Bilirubin Total (test 0.2 mg/dL 0.1-0.9 code=Bilirubin Total) Albumin Level (test 4.6 g/dL 3.5-5.2 code=Albumin Level) Protein Total (test 7.5 g/dL 6.4-8.3 code=Protein Total) ALT (test code=ALT) 25 U/L 1-33 AST (test code=AST) 22 U/L 1-32 Globulin (test 2.9 g/dL 2.9-3.1 code=Globulin) A/G Ratio (test code=A/G 1.6 ratio Ratio) eGFR AA (test code=eGFR >60 mL/min/1.73 m2 eGFR (estimated AA) Glomerular Filtration Rate) is an estimated value, calculated from the patient's serum creatinine using the MDRD equation. It is NOT the patient's actual GFR. The eGFR provides a more clinically useful measure of kidney disease than serum creatinine alone.This calculation takes sex and race into account, if the information is provided. If the race is not provided, and the patient is -E[place]ian, multiply by 1.212. If sex is not provided, and the patient is female, multiply by 0.742. Results for patients <18 years of age have not been validated by the MDRD study and should be interpreted with caution. eGFR Result Interpretation:eGFR > or=60 is in the Normal RangeeGFR < 60 may mean kidney diseaseeGFR < 15 may mean kidney failure Ranges recommended by the National Kidney Foundation, http://nkdep.nih.gov eGFR Non-AA (test >60.00 mL/min/1.73 eGFR (estimated code=eGFR Non-AA) m2 Glomerular Filtration Rate) is an estimated value, calculated from the patient's serum creatinine using the MDRD equation. It is NOT the patient's actual GFR. The eGFR provides a more clinically useful measure of kidney disease than serum creatinine alone.This calculation takes sex and race into account, if the information is provided. If the race is not provided, and the patient is -E[place]ian, multiply by 1.212. If sex is not provided, and the patient is female, multiply by 0.742. Results for patients <18 years of age have not been validated by the MDRD study and should be interpreted with caution. eGFR Result Interpretation:eGFR > or=60 is in the Normal RangeeGFR < 60 may mean kidney diseaseeGFR < 15 may mean kidney failure Ranges recommended by the National Kidney Foundation, http://nkdep.nih.gov Complete Blood Count with [id number] 17:32:54 Test Item Value Reference Range Comments WBC (test code=WBC) 7.1 x10 4.4-10.5 RBC (test code=RBC) 4.63 x10 3.75-5.20 Hgb (test code=Hgb) 13.5 g/dL 12.2-14.8 Hct (test code=Hct) 39.4 % 36.5-44.4 MCV (test code=MCV) 85.10 fL 80.00-100.00 MCHC (test code=MCHC) 34.30 g/dL 32.00-37.50 RDW CV (test code=RDW CV) 14.0 % 11.5-14.5 MCH (test code=MCH) 29.2 pg 27.0-32.5 Platelets (test 292.0 x10 140.0-440.0 code=Platelets) MPV (test code=MPV) 10.9 fL Slide Review (test code=Slide Auto Auto Result created by Review) GL_SJM_SLIDE_REV_AUTO nRBC (test code=nRBC) 0 NRBC Abs (test code=NRBC Abs) 0.00 x10 IPF (test code=IPF) 0 % Automated [id number] 17:32:54 Test Item Value Reference Range Comments Neutro Auto (test code=Neutro Auto) 54.7 % 36.0-70.0 Lymph Auto (test code=Lymph Auto) 36.0 % 12.0-44.0 Gilpin Auto (test code=Gilpin Auto) 6.8 % 0.0-11.0 Eos, Auto (test code=Eos, Auto) 1.8 % 0.0-7.0 Basophil Auto (test code=Basophil Auto) 0.4 % 0.0-2.0 Neutro Absolute (test code=Neutro Absolute) 3.9 x10 1.6-7.4 Lymph Absolute (test code=Lymph Absolute) 2.55 x10 .50-4.60 [place]pin Absolute (test code=Gilpin Absolute) .48 x10 .00-1.20 Eos Absolute (test code=Eos Absolute) 0.13 x10 0.00-0.74 Baso Absolute (test code=Baso Absolute) 0.03 x10 0.00-0.21 IG [id number] 17:32:54 Test Item Value Reference Range Comments IG (test code=IG) 0.3 % 0.0-5.0 IG Abs (test code=IG Abs) 0 x10 POC [id number] 18:09:54 Test Item Value Reference Range Comments Glucose POC (test 105 mg/dL 70-115 If you consider your patient code=Glucose POC) critically ill, the Hermelinda-Accu Check Infrom II meter should not be used for Glucose determination. Draw a venous Glucose and send to the main Lab for analysis. XR Chest 1 View [id number] 17:13:03Patient: EVA HARDEN Date/Time02/18/2019 17:10 CDTReason for ExamFeverReportCHEST 1 VIEWCLINICAL INFORMATION: FeverCOMPARISON : Chest radiograph dated December 05, 2017FINDINGS:The lungs are well-expanded and clear. No airspace consolidation is seen. No pneumothorax or pleural effusion is present. The cardiac silhouette is normal in size. The bones are grossly intact.IMPRESSION:No acute cardiopulmonary finding.LOCATION: R16 Final *Dictated by: MD Dia Adam FDictated DT/TM: 02/18/2019 5:12 pmSigned by : MD Dia Adam FSigned (Electronic Signature): 02/18/2019 5:13 pmCT Abdomen and Pelvis w/o [id number] 16:07:13Patient: EVA HARDEN Date/Time02/18/2019 15:54 CDTReason for ExamAbdominal painReportEXAM: CT ABDOMEN AND PELVIS WITHOUT CONTRASTINDICATION:Abdominal painCOMPARISON: None availableTECHNIQUE: Routine axial CT images of the abdomen and pelviswere obtained without intravenous contrast. Coronal and sagittal reformatted images were submitted for review.IV contrast: NoneDLP: 936 mGy-cmFINDINGS:The lung bases are clear. The heart size is normal. No pleural or pericardial effusion.The noncontrast appearance of the liver, spleen, pancreas, and adrenal glands are are normal. There has been prior cholecystectomy. Gas is No intrahepatic biliary ductal dilatation.The kidneys are normal in size. No nephrolithiasis, hydronephrosis, or perinephric stranding is identified. The urinary bladder is normal in appearance.There are postsurgical changes of prior gastric bypass. The small bowel, large bowel and appendix are normal. No evidence of bowel obstruction.No lymphadenopathy is identified in the abdomen or pelvis. No free fluid or free air is identified. The IVC is normal. The abdominal aorta is normal in caliber.There has been prior hysterectomy.No adnexal mass is identified.The osseous structures are normal.IMPRESSION:1. No acute abnormalityis identified in the abdomen or pelvis.2. Postsurgical changes of prior gastric bypass. No bowel obstruction. Normal appendix.LOCATION: [id number] CT exam was performed according to our departmental dose optimization program, which includes automated exposure control, adjustment of the mA and/or kV according to the patient size and/or use of iterative reconstructive technique. Final Dictatedby: MD Moore Melanie CDictated DT/TM: 02/18/2019 4:00 pmSigned by: MD Moore Melanie CSigned (Electronic Signature): 02/18/2019 4:07 pmComprehensive Metabolic [id number] 12:49:45 Test Item Value Reference Range Comments Sodium Level (test code=Sodium Level) 140.0 mmol/L 135.0-145.0 Potassium Level (test code=Potassium Level) 3.8 mmol/L 3.5-5.1 Chloride Level (test code=Chloride Level) 102 mmol/L 98-105 CO2 (test code=CO2) 27 mmol/L 22-29 Anion Gap (test code=Anion Gap) 11 mmol/L 7-16 BUN (test code=BUN) 7.90 mg/dL 6.00-20.00 Creatinine Level (test code=Creatinine Level) 0.60 mg/dL 0.50-0.90 BUN/Creat Ratio (test code=BUN/Creat Ratio) 13 Glucose Level (test code=Glucose Level) 99 mg/dL 70-115 Calcium Level (test code=Calcium Level) 9.3 mg/dL 8.3-10.5 Alk Phos (test code=Alk Phos) 109 U/L 35-104 Bilirubin Total (test code=Bilirubin Total) 0.4 mg/dL 0.1-0.9 Albumin Level (test code=Albumin Level) 4.7 g/dL 3.5-5.2 Protein Total (test code=Protein Total) 7.4 g/dL 6.4-8.3 ALT (test code=ALT) 24 U/L 1-33 AST (test code=AST) 16 U/L 1-32 Globulin (test code=Globulin) 2.7 g/dL 2.9-3.1 A/G Ratio (test code=A/G Ratio) 1.7 ratio Comprehensive Metabolic [id number] 12:49:45 Test Item Value Reference Range Comments Sodium Level (test 140.0 mmol/L 135.0-145.0 code=Sodium Level) Potassium Level (test 3.8 mmol/L 3.5-5.1 code=Potassium Level) Chloride Level (test 102 mmol/L 98-105 code=Chloride Level) CO2 (test code=CO2) 27 mmol/L 22-29 Anion Gap (test 11 mmol/L 7-16 code=Anion Gap) BUN (test code=BUN) 7.90 mg/dL 6.00-20.00 Creatinine Level (test 0.60 mg/dL 0.50-0.90 code=Creatinine Level) BUN/Creat Ratio (test 13 code=BUN/Creat Ratio) Glucose Level (test 99 mg/dL 70-115 code=Glucose Level) Calcium Level (test 9.3 mg/dL 8.3-10.5 code=Calcium Level) Alk Phos (test code=Alk 109 U/L 35-104 Phos) Bilirubin Total (test 0.4 mg/dL 0.1-0.9 code=Bilirubin Total) Albumin Level (test 4.7 g/dL 3.5-5.2 code=Albumin Level) Protein Total (test 7.4 g/dL 6.4-8.3 code=Protein Total) ALT (test code=ALT) 24 U/L 1-33 AST (test code=AST) 16 U/L 1-32 Globulin (test 2.7 g/dL 2.9-3.1 code=Globulin) A/G Ratio (test code=A/G 1.7 ratio Ratio) eGFR AA (test code=eGFR >60 mL/min/1.73 m2 eGFR (estimated AA) Glomerular Filtration Rate) is an estimated value, calculated from the patient's serum creatinine using the MDRD equation. It is NOT the patient's actual GFR. The eGFR provides a more clinically useful measure of kidney disease than serum creatinine alone.This calculation takes sex and race into account, if the information is provided. If the race is not provided, and the patient is -E[place]ian, multiply by 1.212. If sex is not provided, and the patient is female, multiply by 0.742. Results for patients <18 years of age have not been validated by the MDRD study and should be interpreted with caution. eGFR Result Interpretation:eGFR > or=60 is in the Normal RangeeGFR < 60 may mean kidney diseaseeGFR < 15 may mean kidney failure Ranges recommended by the National Kidney Foundation, http://nkdep.nih.gov Comprehensive Metabolic [id number] 12:49:45 Test Item Value Reference Range Comments Sodium Level (test 140.0 mmol/L 135.0-145.0 code=Sodium Level) Potassium Level (test 3.8 mmol/L 3.5-5.1 code=Potassium Level) Chloride Level (test 102 mmol/L 98-105 code=Chloride Level) CO2 (test code=CO2) 27 mmol/L 22-29 Anion Gap (test 11 mmol/L 7-16 code=Anion Gap) BUN (test code=BUN) 7.90 mg/dL 6.00-20.00 Creatinine Level (test 0.60 mg/dL 0.50-0.90 code=Creatinine Level) BUN/Creat Ratio (test 13 code=BUN/Creat Ratio) Glucose Level (test 99 mg/dL 70-115 code=Glucose Level) Calcium Level (test 9.3 mg/dL 8.3-10.5 code=Calcium Level) Alk Phos (test code=Alk 109 U/L 35-104 Phos) Bilirubin Total (test 0.4 mg/dL 0.1-0.9 code=Bilirubin Total) Albumin Level (test 4.7 g/dL 3.5-5.2 code=Albumin Level) Protein Total (test 7.4 g/dL 6.4-8.3 code=Protein Total) ALT (test code=ALT) 24 U/L 1-33 AST (test code=AST) 16 U/L 1-32 Globulin (test 2.7 g/dL 2.9-3.1 code=Globulin) A/G Ratio (test code=A/G 1.7 ratio Ratio) eGFR AA (test code=eGFR >60 mL/min/1.73 m2 eGFR (estimated AA) Glomerular Filtration Rate) is an estimated value, calculated from the patient's serum creatinine using the MDRD equation. It is NOT the patient's actual GFR. The eGFR provides a more clinically useful measure of kidney disease than serum creatinine alone.This calculation takes sex and race into account, if the information is provided. If the race is not provided, and the patient is -E[place]ian, multiply by 1.212. If sex is not provided, and the patient is female, multiply by 0.742. Results for patients <18 years of age have not been validated by the MDRD study and should be interpreted with caution. eGFR Result Interpretation:eGFR > or=60 is in the Normal RangeeGFR < 60 may mean kidney diseaseeGFR < 15 may mean kidney failure Ranges recommended by the National Kidney Foundation, http://nkdep.nih.gov eGFR Non-AA (test >60.00 mL/min/1.73 eGFR (estimated code=eGFR Non-AA) m2 Glomerular Filtration Rate) is an estimated value, calculated from the patient's serum creatinine using the MDRD equation. It is NOT the patient's actual GFR. The eGFR provides a more clinically useful measure of kidney disease than serum creatinine alone.This calculation takes sex and race into account, if the information is provided. If the race is not provided, and the patient is -E[place]ian, multiply by 1.212. If sex is not provided, and the patient is female, multiply by 0.742. Results for patients <18 years of age have not been validated by the MDRD study and should be interpreted with caution. eGFR Result Interpretation:eGFR > or=60 is in the Normal RangeeGFR < 60 may mean kidney diseaseeGFR < 15 may mean kidney failure Ranges recommended by the National Kidney Foundation, http://nkdep.nih.gov Troponin [id number] 12:39:41 Test Item Value Reference Range Comments Troponin-T (test <6.000 ng/L 0.000-14.000 The CV of the assay at 99th code=Troponin-T) percentile for both male and female patient population is < 10%. A rise and fall in AMBER with at least one value above the 99th percentile with clinical evidence of myocardial ischemia would support a diagnosis of AMI. A delta of at least 20% is recommended to access acute changes in results above the 99th percentile in serial measurements. Stable AMBER levels (<20%) delta above the 99th percentile URL would support a diagnosis of chronic myocardial injury. Prothrombin Time and [id number] 12:35:43 Test Item Value Reference Range Comments Prothrombin Time (test code=Prothrombin Time) 12.5 seconds 9.8-13.4 INR (test code=INR) 1.1 ratio 0.6-1.2 Partial Thromboplastin [id number] 12:35:43 Test Item Value Reference Range Comments Partial Thromboplastin Time (test code=Partial 33.30 seconds 24.39-37.25 Thromboplastin Time) Lipase [id number] 12:33:48 Test Item Value Reference Range Comments Lipase Level (test code=Lipase Level) 19 U/L 13-60 Automated [id number] 12:26:00 Test Item Value Reference Range Comments Neutro Auto (test code=Neutro Auto) 84.1 % 36.0-70.0 Lymph Auto (test code=Lymph Auto) 9.6 % 12.0-44.0 Gilpin Auto (test code=Gilpin Auto) 5.4 % 0.0-11.0 Eos, Auto (test code=Eos, Auto) 0.6 % 0.0-7.0 Basophil Auto (test code=Basophil Auto) 0.2 % 0.0-2.0 Neutro Absolute (test code=Neutro Absolute) 8.0 x10 1.6-7.4 Lymph Absolute (test code=Lymph Absolute) .92 x10 .50-4.60 Gilpin Absolute (test code=Gilpin Absolute) .52 x10 .00-1.20 Eos Absolute (test code=Eos Absolute) 0.06 x10 0.00-0.74 Baso Absolute (test code=Baso Absolute) 0.02 x10 0.00-0.21 IG [id number] 12:26:00 Test Item Value Reference Range Comments IG (test code=IG) 0.1 % 0.0-5.0 IG Abs (test code=IG Abs) 0 x10 Complete Blood Count with [id number] 12:25:59 Test Item Value Reference Range Comments WBC (test code=WBC) 9.6 x10 4.4-10.5 RBC (test code=RBC) 5.18 x10 3.75-5.20 Hgb (test code=Hgb) 14.5 g/dL 12.2-14.8 Hct (test code=Hct) 43.0 % 36.5-44.4 MCV (test code=MCV) 83.00 fL 80.00-100.00 MCHC (test code=MCHC) 33.70 g/dL 32.00-37.50 RDW CV (test code=RDW CV) 13.5 % 11.5-14.5 MCH (test code=MCH) 28.0 pg 27.0-32.5 Platelets (test 236.0 x10 140.0-440.0 code=Platelets) MPV (test code=MPV) 10.4 fL Slide Review (test code=Slide Auto Auto Result created by Review) GL_SJM_SLIDE_REV_AUTO nRBC (test code=nRBC) 0 NRBC Abs (test code=NRBC Abs) 0.00 x10 Urinalysis with Culture, if [id number] 12:25:24 Test Item Value Reference Range Comments UA Color (test code=UA Color) YELLO Yellow UA Appear (test code=UA CLEAR Clear Appear) UA pH (test code=UA pH) 7 UA Spec Grav (test code=UA 1.018 1.001-1.035 Spec Grav) UA Glucose (test code=UA NEG Negative Glucose) UA Bili (test code=UA Bili) NEG Negative UA Ketones (test code=UA NEG Negative Ketones) UA Blood (test code=UA Blood) NEG Negative UA Protein (test code=UA NEG Negative Protein) UA Urobilinogen (test code=UA 0.2 mg/dL Urobilinogen) UA Nitrite (test code=UA NEG Negative Nitrite) UA Leuk Est (test code=UA Leuk NEG Negative Est) UA Micro Ind? (test code=UA Not Indicated Not Indicated Result created by rule Micro Ind?) GL_SJM_UA_MICRO_IND HCG Qualitative [id number] 12:25:09 Test Item Value Reference Range Comments hCG Ur (test code=hCG Ur) Negative If the result is "Negative" in patients suspected to be , recommend retest with a sample obtained 48 to 72 hours later, or by ordering a quantitative assay. If the result is "Borderline" testing should be repeated in 48 to 72 hours. Lot # (test code=Lot #) [id number] Expiration Dt (test 07/08/2020 code=Expiration Dt) Neg Control (test code=Neg Negative Control) Pos Control (test code=Pos Positive Control) Internal QC (test Acceptable code=Internal QC) TROPONIN [id number] 09:14:00 Test Item Value Reference Range Comments TROPONIN I (SASCHA) (test dbbg=304) 0.03 ng/mL 0.00-0.03 Troponin I (TnI) levels must be interpreted in the context of the presenting symptoms and the clinical findings. Elevated TnI levels indicate myocardial damage, but are not specific for ischemic heart disease. Elevated TnI levels are seen in patients with other cardiac conditions (including myocarditis and congestive heart failure), and slight TnI elevations occur in patients with other conditions, including sepsis, renal failure, acidosis, acute neurological disease, and persistent tachyarrhythmia.CREATINE KINASE (CK)2019-02-12 09:08:00 Test Item Value Reference Range Comments CREATINE KINASE TOTAL (SASCHA) (test litf=314) 50 U/L 29-200 CT, CHEST WITH IV CONTRAST- PE TEST [id number] 08:15:00Reason for exam:-& gt;CHEST PAINIs the patient ?->NoWhat is the patient's sedation requirement?->No SedationFINAL REPORT CT Chest with contrast (PE protocol) History: chest pain Comparison: none Technique: serial axial imaging was performed following up to 100cc of non ionic iodinated intravenous contrast as per departmental protocol. Multiplanar, and maximum intensity projection images are reconstructed and reviewed. This CT examination is performed using one or more of the following dose reduction techniques: Automated exposure control, adjustment of the mA and /or kV accordingto patient size, and/or use of iterative reconstruction technique. Findings:No mediastinal or hilarlymphadenopathy. Normal size heart. No pericardial effusion. No thoracic aortic aneurysm or dissection. No pulmonary arterial filling defect. Patent central airways. No pleural effusion or pneumothorax. Calcified granuloma within the right lower lobe is consistent with previous granulomatous disease. The lungs are otherwise clear. Partially imaged changes of prior gastric bypass and cholecystectomy. No aggressive osseous lesion. Impression:No evidence of pulmonary embolus. No additional acute findings in the chest. Signed: Storm Awan MDReport Verified Date/Time: 02/12/2019 08:15:11 Reading Location: [facility] Diagnostic Imaging Reading Room - [place] [address] B-TYPE NATRIURETIC FACTOR (BNP)2019-02-12 07: 13:00 Test Item Value Reference Range Comments B-TYPE NATRIURETIC PEPTIDE (BEAKER) (test qitz=954) 23 pg/mL 0-100 TROPONIN [id number] 07:13:00 Test Item Value Reference Range Comments TROPONIN I (BEAKER) (test facj=907) < ng/mL 0.00-0.03 Troponin I (TnI) levels must be interpreted in the context of the presenting symptoms and the clinical findings. Elevated TnI levels indicate myocardial damage, but are not specific for ischemic heart disease. Elevated TnI levels are seen in patients with other cardiac conditions (including myocarditis and congestive heart failure), and slight TnI elevations occur in patients with other conditions, including sepsis, renal failure, acidosis, acute neurological disease, and persistent tachyarrhythmia.BASIC METABOLIC [id number] 07:09:00 Test Item Value Reference Range Comments SODIUM (BEAKER) (test 142 meq/L 136-145 adut=622) POTASSIUM (BEAKER) (test 4.0 meq/L 3.5-5.1 Specimen slightly sosg=465) hemolyzed CHLORIDE (BEAKER) (test 107 meq/L 98-107 zqjo=029) CO2 (BEAKER) (test 30 meq/L 22-29 siwz=418) BLOOD UREA NITROGEN 9 mg/dL 7-21 (BEAKER) (test acmr=094) CREATININE (BEAKER) (test 0.65 mg/dL 0.57-1.25 Specimen slightly glcn=436) hemolyzed GLUCOSE RANDOM (BEAKER) 88 mg/dL 70-105 (test llox=453) CALCIUM (BEAKER) (test 9.4 mg/dL 8.4-10.2 cfhq=631) EGFR (BEAKER) (test mL/min/1.73 sq m INSUFFICIENT CLINICAL DATA mljs=3073) TO CALCULATE ESTIMATED GFR. [id number] 07:07:00 Test Item Value Reference Range Comments MAGNESIUM (BEAKER) (test 2.3 mg/dL 1.6-2.6 Specimen slightly hemolyzed afpp=574) CREATINE KINASE (CK)2019-02-12 07:07:00 Test Item Value Reference Range Comments CREATINE KINASE TOTAL (BEAKER) (test slim=956) 64 U/L 29-200 PT/[id number] 06:43:00 Test Item Value Reference Range Comments PROTIME (BEAKER) (test ijhu=996) 13.2 seconds 11.9-14.2 INR (BEAKER) (test qpoi=651) 1.1 <=5.9 PARTIAL THROMBOPLASTIN TIME (BEAKER) (test 28.0 seconds 22.5-36.0 bhix=204) Effective 02/03/2019: PT Reference Range ChangeNew: 11.9-14.2 Previous: 11.7- 14.7RECOMMENDED COUMADIN/WARFARIN INR THERAPY RANGESSTANDARD DOSE: 2.0-3.0 Includes: PROPHYLAXIS for venous thrombosis, systemic embolization; TREATMENT for venous thrombosis and/or pulmonary embolus.HIGH RISK: Target INR is2.5-3.5 for patients wiht mechanical heart valves.CBC W/PLT COUNT & AUTO [id number] 06:37:00 Test Item Value Reference Range Comments WHITE BLOOD CELL COUNT (BEAKER) (test erjw=544) 6.6 K/ L 3.5-10.5 RED BLOOD CELL COUNT (BEAKER) (test tjme=223) 4.72 M/ L 3.93-5.22 HEMOGLOBIN (BEAKER) (test zawf=078) 12.9 GM/DL 11.2-15.7 HEMATOCRIT (BEAKER) (test delr=968) 40.3 % 34.1-44.9 MEAN CORPUSCULAR VOLUME (BEAKER) (test lwiq=811) 85.4 fL 79.4-94.8 MEAN CORPUSCULAR HEMOGLOBIN (BEAKER) (test 27.3 pg 25.6-32.2 azmw=592) MEAN CORPUSCULAR HEMOGLOBIN CONC (BEAKER) (test 32.0 GM/DL 32.2-35.5 nmjg=158) RED CELL DISTRIBUTION WIDTH (BEAKER) (test 13.7 % 11.7-14.4 zrzf=780) PLATELET COUNT (BEAKER) (test wwbo=826) 249 K/CU MM 150-450 MEAN PLATELET VOLUME (BEAKER) (test nlbo=023) 10.7 fL 9.4-12.3 NUCLEATED RED BLOOD CELLS (BEAKER) (test 0 /100 WBC 0-0 ncef=171) NEUTROPHILS RELATIVE PERCENT (BEAKER) (test 58 % jfvd=668) LYMPHOCYTES RELATIVE PERCENT (BEAKER) (test 32 % whcq=441) MONOCYTES RELATIVE PERCENT (BEAKER) (test 7 % amgn=863) EOSINOPHILS RELATIVE PERCENT (BEAKER) (test 2 % xdko=404) BASOPHILS RELATIVE PERCENT (BEAKER) (test 0 % vqkx=202) NEUTROPHILS ABSOLUTE COUNT (BEAKER) (test 3.85 K/ L 1.56-6.13 iied=290) LYMPHOCYTES ABSOLUTE COUNT (BEAKER) (test 2.13 K/ L 1.18-3.74 adis=039) MONOCYTES ABSOLUTE COUNT (BEAKER) (test 0.45 K/ L 0.24-0.36 pbcj=721) EOSINOPHILS ABSOLUTE COUNT (BEAKER) (test 0.13 K/ L 0.04-0.36 xdvm=846) BASOPHILS ABSOLUTE COUNT (BEAKER) (test 0.02 K/ L 0.01-0.08 fcsy=055) IMMATURE GRANULOCYTES-RELATIVE PERCENT (BEAKER) 0 % 0-1 (test jgdg=6570) RAD, CHEST, 1 VIEW, NON [id number] 05:59:00Reason for exam:->CHEST PAINIs the patient ?->UnknownFINAL REPORT Chest, 1 view. History: Chest pain Comparison: None available. Findings: The cardiomediastinal silhouette and pulmonary vasculature are within normal limits for a portable exam. The lungs are clear without evidence of consolidation or effusion. The soft tissues and osseous structures are intact. IMPRESSION: No acute cardiopulmonary abnormality. Signed: Tona Bernabe MDReport Verified Date/Time: 02/12/2019 05:59:10 [id number] 08:06:00 Test Item Value Reference Range Comments GLUBED (test code=GLUBED) 90 MG/DL 70-110 Performed by certified patch press operator at [facility] [id number] 07:36:00 Test Item Value Reference Range Comments GLUBED (test code=GLUBED) 95 MG/DL 70-110 Performed by certified patch press operator at [facility] [id number] 16:41:00 Test Item Value Reference Range Comments GLUBED (test code=GLUBED) 123 MG/DL 70-110 Performed by certified patch press operator at [facility] - MRI L-SPINE W/O [id number] 13:50:00 FAX: Otilia Butler MD [place]: St: [facility] FAX: Nichole Orozco MD [phone] FAX: Jocelin Jones MD [phone] Name: EVA HARDEN [facility] : 1970 Age/S: 48/F [address] [place] [address] Unit #: [id number] Loc: [address] [address] Phys: Jocelin Jones MD Acct: [id number] Dis Date: Status: ADM IN PHONE #: [phone] Exam Date: 2018 1343 FAX #: [phone] Reason: radiculopathy EXAMS: CPT CODE: [id number] MRI L-SPINE W/O CONT 04192 MRI lumbar spine without contrast 01/19/2019 HISTORY: Radiculopathy PROCEDURE: Multiplanar multisequence imaging of the lumbar spine is performed without contrast No prior exams are available for comparison FINDINGS: There is normal alignment and curvature of the lumbar spine. Vertebral body heights are maintained. No aggressive bone marrow abnormality is present. The conus medullaris ends at L1 1-2. No nerve root clumping is present. At L1-2, no HNP, canal stenosis,or neural foraminal narrowing is present. At L2-3, no HNP, canal stenosis, or neural foraminal narrowing is present. At L3-4, no HNP, canal stenosis, or neural foraminal narrowing is present. There is mild bilateral facet hypertrophy and ligamentum flavum hypertrophy At L4-5, disc desiccation is noted. There is mild annular bulging and osteophytes. Moderate facet hypertrophy and ligamentum flavum hypertrophy is noted. There is fluid in the facet joints. There is mild bilateral neural foraminal narrowing and mild spinal canal stenosis in the lateral projection At L5-S1, mild disc desiccationis noted. There is mild annular bulging and posterior lateral osteophytes resulting in mild bilateral neural foraminal narrowing and no significant spinal canal stenosis. Mild bilateral facet hypertrophy is noted. IMPRESSION: 1. Mild bilateral neural foraminal narrowing at L4-5 and L5-S1. 2. Mild spinal canal stenosis at L4-5. 3. No disc herniation. SL: [id number] PAGE 1 Signed Report (CONTINUED) FAX: Otilia Butler MD [phone] [place]: St: ADM FAX: Nichole Orozco MD [phone] FAX: Jocelin Jones MD [phone] Name: EVA HARDEN [facility] : 1970 Age/S: 48/F [address] [place] [address] Unit #: [id number] Loc: [address] [address] Phys: Jocelin Jones MD Acct: [id number] Dis Date: Status: ADM IN PHONE #: [phone] Exam Date: 01/19/2019 1343 FAX #: [phone] Reason: radiculopathy EXAMS: CPT CODE: [id number] MRIL-SPINE W/O CONT 52694 < Continued> at 1350 Reported and signed by: Champ Loya M.D. CC: Otilia Nguyễn MD; Nichole Orozco MD; Jocelin Jones MD Technologist: RT Emil(R)(CT)(MR) Trnscrd Date/Time/By : 01/19/2019 (1350) : By: [email or web address] Orig Print D/T: S:01/19/2019 (5475 ) PAGE 2 Signed Report- MRI BRAIN W/O [id number] 13:47:00 FAX: Otilia Butler MD [place]: St: ADM FAX: Nichole Orozco MD [phone] FAX : oJcelin Jones MD [phone] Name: EVA HARDEN [facility] [place] : 1970 Age/S: 48/F [address] [place] [address] Unit #: [id number] Loc: [place] [id number] Phys: Jocelin Jones MD Acct: [id number] Dis Date: Status: ADM IN PHONE #: [phone] Exam Date: 2018 1343 FAX #: [phone] Reason: ms EXAMS: CPT CODE: [id number] MRI BRAIN W/O CONT 62943 MRI brain without contrast 01/19/2019 HISTORY: Weakness to extremities. PROCEDURE: Multiplanar multisequence imaging of the brain is performed without contrast Comparison is made to CT performed on 10/21/2017 FINDINGS: Diffusion-weighted imaging demonstrates no acute ischemic event. No evidence foracute infarct is present. No acute hemorrhage, midline shift, extra-axial fluid collection, or hydrocephalus is present. Craniocervical junction and corpus callosum are within normal limits. There is no blooming artifact on the heme sequence to suggest remote hemorrhage. Nosignificant area of abnormal increased FLAIR signal is present. The visualized mastoid air cells are clear. There is no air-fluid level in the visualized paranasal sinuses. The expected intracranial flow voids are present. Right nasal septal deviation is present. IMPRESSION: No acute intracranial abnormality. SL: [id number] at 1347 Reported and signed by: Champ Loya M.D. CC: Otilia Nguyễn MD; Nichole Orozco MD; Jocelin Jones MD Technologist: Dale Good, RT(R)(CT)( MR) Trnscrd Date/Time/By: 01/19/2019 (6265) : By: [email or web address] Orig Print D/T: S: 01/19/2019 (8425) PAGE 1 Signed ReportCBC W/AUTO [id number] 08:32:00 Test Item Value Reference Range Comments WHITE BLOOD CELL (test code=WBC) 9.71 x10 3/uL 4.5-11.0 RED BLOOD CELL (test code=RBC) 4.09 x10 6/uL 3.54-5.02 HEMOGLOBIN (test code=HGB) 11.5 g/dL 11.0-15.0 HEMATOCRIT (test code=HCT) 34.7 % 33.0-45.0 MEAN CELL VOLUME (test code=MCV) 84.8 fL 81.0-99.0 MEAN CELL HGB (test code=MCH) 28.1 pg 27.0-33.0 MEAN CELL HGB CONCETRATION (test code=MCHC) 33.1 g/dL 33.0-37.0 RED CELL DISTRIBUTION WIDTH CV (test code=RDW) 13.7 % 11.5-14.5 RED CELL DISTRIBUTION WIDTH SD (test 42.5 fL 37.0-54.0 code=RDW-SD) PLATELET COUNT (test code=PLT) 221 x10 3/uL 150-400 MEAN PLATELET VOLUME (test code=MPV) 11.5 fL 7.0-9.0 NEUTROPHIL % (test code=NT%) 79.3 % 56.0-77.0 IMMATURE GRANULOCYTE % (test code=IG%) 0.3 % 0.0-2.0 LYMPHOCYTE % (test code=LY%) 14.7 % 14.0-32.0 MONOCYTE % (test code=MO%) 5.5 % 4.8-9.0 EOSINOPHIL % (test code=EO%) 0.1 % 0.3-3.7 BASOPHIL % (test code=BA%) 0.1 % 0.0-2.0 NUCLEATED RBC % (test code=NRBC%) 0.0 % 0-0 NEUTROPHIL # (test code=NT#) 7.70 x10 3/uL 2.0-7.6 IMMATURE GRANULOCYTE # (test code=IG#) 0.03 x10 3/uL 0.00-0.03 LYMPHOCYTE # (test code=LY#) 1.43 x10 3/uL 1.0-3.8 MONOCYTE # (test code=MO#) 0.53 x10 3/uL 0.1-0.8 EOSINOPHIL # (test code=EO#) 0.01 x10 3/uL 0.0-0.2 BASOPHIL # (test code=BA#) 0.01 x10 3/uL 0.0-0.2 NUCLEATED RBC # (test code=NRBC#) 0.00 x10 3/uL 0.0-0.1 MANUAL DIFF REQUIRED (test code=MDIFF) NO VITAMIN [id number] 08:29:00 Test Item Value Reference Range Comments VITAMIN B12 (test code=VITB12) 386 pg/mL 193-986 C REACTIVE [id number] 07:54:00 Test Item Value Reference Range Comments C REACTIVE PROTEIN (test code=CRP) < 2.9 MG/L 0.0-2.9 SED RATE [id number] 07:52:00 Test Item Value Reference Range Comments SED RATE WESTERGREN (test code=SEDW) 2 mm/hr 0-20 BASIC METABOLIC [id number] 06:56:00 Test Item Value Reference Range Comments SODIUM (test code=NA) 143 mEq/L 134-147 POTASSIUM (test code=K) 3.5 mEq/L 3.4-5.0 CHLORIDE (test code=CL) 109 mEq/L 100-108 CARBON DIOXIDE (test code=CO2) 27 mEq/L 21-33 ANION GAP (test code=GAP) 11 0-20 GLUCOSE (test code=GLU) 150 mg/dL 70-110 BLOOD UREA NITROGEN (test 12 mg/dL 7-18 code=BUN) GLOMERULAR FILTRATION RATE 131.1 95-105 Units of measure=ml/min/1.73 (test code=GFR) m2 CREATININE (test code=CREAT) 0.5 mg/dL 0.6-1.3 CALCIUM (test code=CA) 7.9 mg/dL 8.0-10.5 COMMENTS: 3 troponins total (including troponin done in ED)THYROID STIMULATING [id number] 06:56:00 Test Item Value Reference Range Comments THYROID STIMULATING HORMONE (test 0.18 0.42-5.47 Results in tariq- International code=TSH) Units/mL COMMENTS: 3 troponins total (including troponin done in ED)[id number] 06:56:00 Test Item Value Reference Range Comments TROPONIN-I (test < 0.015 ng/mL 0.000-0.045 Negative: <=0.045 code=TROPI) Positive: >=0.046 Correlation with serial results, other cardiac markers andclinical findings is necessary to determine the clinicalsignificance of this result. Results using different methodologies should not be comparedto one another as quantitative results may vary by method. COMMENTS: 3 troponins total (including troponin done in ED)[id number] 12:21:00 Test Item Value Reference Range Comments TROPONIN-I (test < 0.015 ng/mL 0.000-0.045 Negative: <=0.045 code=TROPI) Positive: >=0.046 Correlation with serial results, other cardiac markers andclinical findings is necessary to determine the clinicalsignificance of this result. Results using different methodologies should not be comparedto one another as quantitative results may vary by method. COMMENTS: 3 troponins total (including troponin done in ED)- CT ANGIO [id number] 10:39:00 Name: EVA HARDEN [facility] : 1970 Age/S: 48 / F [address] [place] [address] Unit #: [id number] Loc: [facility] [id number] Phys: Dick Silverman MD Acct: [id number] Dis Date: Status: REG ER PHONE #: [phone] Exam Date: 01/18/2019 1018 FAX #: [phone] Reason: chest pain, SOB, elevated d-dimer EXAMS: CPTCODE: [id number] CT ANGIO CHEST [address] PROCEDURE: CTA CHEST INDICATION: Chest pain. Shortness of breath. Elevated d-dimer. COMPARISON: Current CXR, CT chest October 2018, CTA chest October 2017 TECHNIQUE: CTA of the pulmonary arteries was performed with 100 mL Isovue-370 intravenous contrast. Multiplanar and 3-D MIP angiographic reconstructions are reviewed. CT imaging performed at this location utilizes radiation dose optimization techniques which include one or more of the following: - Automated exposure control -Adjustment of the mA and/or kV according to patient size -Use of iterative reconstruction technique CT Radiation Dose DLP 351.15 mGy-cm FINDINGS: PULMONARY ARTERIES: Normal enhancement without intraluminal filling defect. MEDIASTINUM: The mediastinal contents are unremarkable. No adenopathy. HEART: The cardiac chambers are unremarkable. No pericardial effusion. VASCULAR STRUCTURES: Mild atherosclerosis aortic arch. No aneurysm, dissection or other acute abnormality. The proximal great vessels are partially obscured by artifact related todense intravascular contrast, otherwise unremarkable the superior vena cava is unremarkable. LUNGS: Calcified granuloma right upper lobe. The lungs are otherwise clear. No pleural abnormality. UPPER ABDOMEN: Survey of viscera may be limited by early phase of contrast enhancement. No acute abnormality demonstrated. Postoperative changes of gastric bypass surgery. Cholecystectomy. MUSCULOSKELETAL: The skeleton is intact. IMPRESSION: 1. Negative for pulmonary embolism. 2. No acute abnormality demonstrated to account for the patient's PAGE 1 Signed Report (CONTINUED) Name: EVA HARDEN [facility] [place] : 1970 Age/S: 48 / F [address] [place] [address] Unit #: [id number] Loc: [place] [address] Phys: Dick Silverman MD Acct: [id number] Dis Date: Status: REG ER PHONE #: [phone] Exam Date: 01/18/2019 1018 FAX #: [phone] Reason: chest pain, SOB, elevated d -dimer EXAMS: CPT CODE: [id number] CT ANGIO CHEST 73712 <Continued> symptoms. SL: [id number] at 1039 Reported and signed by: Chuy Diaz M.D. CC: Otilia Nguyễn MD; Dick Silverman MD Technologist:Gio Foster, RT(R) CTDI: DLP: Trnscb Date/Time: 01/18/2019 (0848) [email or web address] Orig Print D/T: S: 01/18/2019 (2203) PAGE 2 Signed [id number] 08:12:00 Test Item Value Reference Range Comments D-DIMER (test 801 ng/mlFEU <=500 THROMBOSIS AND/OR PULMONARY code=DDIMER) EMBOLISM AND THE CLINICAL CUT- OFF VALUE FOR EXCLUSION (500 ng/mL FEU) OF THESE CONDITIONSIS VALIDATED BY THE SAFETY LEADER OF THE METHOD. A NEGATIVE D-DIMER RESULT WHEN COMBINED WITH A CLINICALASSESSMENT OF LOW PRETEST PROBABILITY HAS BEEN SHOWN TO HAVEA HIGH NEGATIVE PREDICTIVE VALUE OF DVT OR PE. D-DIMER VALUES >500 ng/mL FEU ARE NOT DIAGNOSTIC FOR DVT, PEor DIC WITHOUT OTHER CONFIRMATORY TESTS AND APPROPRIATECLINICAL EUALUATIONS. HEPATIC FUNCTION [id number] 08:09:00 Test Item Value Reference Range Comments TOTAL PROTEIN (test code=PROT) 7.1 g/dL 6.4-8.2 ALBUMIN (test code=ALB) 3.60 g/dL 3.4-5.0 BILIRUBIN TOTAL (test code=BILT) 0.40 mg/dL 0.0-1.0 BILIRUBIN DIRECT (test code=BILD) < 0.10 MG/DL 0.0-0.30 BILIRUBIN INDIRECT (test code=BILIND) 0.30 MG/DL SGOT/AST (test code=AST) 11 IUnit/L 15-37 SGPT/ALT (test code=ALT) 29 IUnit/L 15-65 ALKALINE PHOSPHATASE TOTAL (test code=ALKP) 98 IUnit/L 20-125 [id number] 08:09:00 Test Item Value Reference Range Comments LIPASE (test code=LIP) 88 IUnit/L 73-393 CBC W/AUTO [id number] 08:03:00 Test Item Value Reference Range Comments WHITE BLOOD CELL (test code=WBC) 5.39 x10 3/uL 4.5-11.0 RED BLOOD CELL (test code=RBC) 4.45 x10 6/uL 3.54-5.02 HEMOGLOBIN (test code=HGB) 12.3 g/dL 11.0-15.0 HEMATOCRIT (test code=HCT) 37.0 % 33.0-45.0 MEAN CELL VOLUME (test code=MCV) 83.1 fL 81.0-99.0 MEAN CELL HGB (test code=MCH) 27.6 pg 27.0-33.0 MEAN CELL HGB CONCETRATION (test code=MCHC) 33.2 g/dL 33.0-37.0 RED CELL DISTRIBUTION WIDTH CV (test code=RDW) 13.7 % 11.5-14.5 RED CELL DISTRIBUTION WIDTH SD (test 41.6 fL 37.0-54.0 code=RDW-SD) PLATELET COUNT (test code=PLT) 238 x10 3/uL 150-400 MEAN PLATELET VOLUME (test code=MPV) 11.1 fL 7.0-9.0 NEUTROPHIL % (test code=NT%) 57.1 % 56.0-77.0 IMMATURE GRANULOCYTE % (test code=IG%) 0.2 % 0.0-2.0 LYMPHOCYTE % (test code=LY%) 32.1 % 14.0-32.0 MONOCYTE % (test code=MO%) 7.2 % 4.8-9.0 EOSINOPHIL % (test code=EO%) 3.0 % 0.3-3.7 BASOPHIL % (test code=BA%) 0.4 % 0.0-2.0 NUCLEATED RBC % (test code=NRBC%) 0.0 % 0-0 NEUTROPHIL # (test code=NT#) 3.08 x10 3/uL 2.0-7.6 IMMATURE GRANULOCYTE # (test code=IG#) 0.01 x10 3/uL 0.00-0.03 LYMPHOCYTE # (test code=LY#) 1.73 x10 3/uL 1.0-3.8 MONOCYTE # (test code=MO#) 0.39 x10 3/uL 0.1-0.8 EOSINOPHIL # (test code=EO#) 0.16 x10 3/uL 0.0-0.2 BASOPHIL # (test code=BA#) 0.02 x10 3/uL 0.0-0.2 NUCLEATED RBC # (test code=NRBC#) 0.00 x10 3/uL 0.0-0.1 MANUAL DIFF REQUIRED (test code=MDIFF) NO - XR CHEST 2 [id number] 08:01:00 FAX: Otilia Butler MD [place]: St: [facility] FAX: Dick Silverman MD [phone] --- Name: EVA HARDEN [facility] : 1970 Age/S: 48/F [address] [place] [address] Unit #: [id number] Loc: [address] [place] [address] Phys: Dick Silverman MD Acct: [id number] Dis Date: Status: REG ER PHONE #: [phone] Exam Date: 01/18/2019 0758 FAX #: [phone] Reason: Chest Pain EXAMS: CPT CODE: [id number] XR CHEST 2 V 52192 2 view chestx-ray performed January 18, 2019 0751 hours. COMPARISON: October 24, 2018.CLINICAL HISTORY: Chest pain. DISCUSSION: 2 views/ films of the chest are submitted.Lungs are clear bilaterally. Cardiomediastinal silhouette is normal. Osseous structures are within normal limits. IMPRESSION: Normal Chest X-ray. at 0801 Reported and signed by: Darling Tamayo M.D. CC: Otilia Nguyễn MD; Dick Silverman MD Technologist: Etelvina Schuler RT(R) Trnscrd Date/Time/By: 01/18/2019 (08) : By: Hnas Orig Print D/T: S: 01/18/2019 (0804) PAGE 1 Signed ReportTROPONIN-I [id number] 07:45:00 Test Item Value Reference Range Comments TROPONIN-I RAPID (test 0.01 ng/mL 0.00-0.08 Performed by certified patch press operator code=TROPIRAP) at [facility] Negative: <=0.08 Positive: >=0.09An elevated troponin value alone is not sufficient todiagnose a myocardial infarction. Rather, the patient sclinical presentation (history, physical exam) and ECGshould be used in conjunction with troponin in thediagnostic evaluation of suspected myocardial infarction. Aserial sampling protocol is recommended to facilitate the identification of temporal changes in troponin levels characteristic of [place]. CHEMISTRY 8 [id number] 07:37:00 Test Item Value Reference Range Comments ISTAT-SODIUM (test code=NAP) MMOL/L 134-147 ISTAT-POTASSIUM (test code=KP) MMOL/L 3.4-5.0 ISTAT-CHLORIDE (test code=CLP) MMOL/L 100-108 ISTAT CARBON DIOXIDE (test code=ISTAT-CO2) mmol/L 21-33 ISTAT CALCIUM IONIZED (test code=ISTAT-SHARRON) MG/DL 1.12-1.32 ISTAT-GLUCOSE (test code=GLUP) MG/DL 70-110 ISTAT-BUN (test code=BUNP) MG/DL 7-18 BEDSIDE CREATININE (test code=CREATBED) MG/DL 0.6-1.3 GLOMERULAR FILTRATION RATE POC (test code=GFRBED) 139 ML/MIN CHEMISTRY 8 [id number] 07:37:00 Test Item Value Reference Range Comments ISTAT-SODIUM (test code=NAP) 142 MMOL/L 134-147 ISTAT-POTASSIUM (test 3.4 MMOL/L 3.4-5.0 code=KP) ISTAT-CHLORIDE (test 103 MMOL/L 100-108 Performed by certified code=CLP) patch press operator at [facility] ISTAT CARBON DIOXIDE (test 24.0 mmol/L 21-33 code=ISTAT-CO2) ISTAT CALCIUM IONIZED (test 1.21 MG/DL 1.12-1.32 code=ISTAT-SHARRON) ISTAT-GLUCOSE (test 81 MG/DL 70-110 code=GLUP) ISTAT-BUN (test code=BUNP) 9 MG/DL 7-18 BEDSIDE CREATININE (test 0.5 MG/DL 0.6-1.3 code=CREATBED) GLOMERULAR FILTRATION RATE 139 ML/MIN POC (test code=GFRBED) - [facility] TRISTAN UNI/[id number] 15:22:00 Name: EVA HARDEN [facility] : 1970 Age/S: 48 / F [address] [place] [address] Unit #: [id number] Loc: [place], [place] Phys: Piyush Estrada MD Acct: [id number] Dis Date: [id number] Status: DIS IN PHONE #: [phone] Exam Date: 10/29/2018 1431 FAX #: [phone] Reason: DVT EXAMS: CPTCODE: [id number] DUP VEIN UNI/LTD 71656 PROCEDURE: UNILATERAL UPPER EXTREMITY VENOUS ULTRASOUND INDICATION: 48-year-old female with acute chest pain and elevated d- dimer, right upper extremity pain and edema COMPARISON:None. TECHNIQUE: Sonographic evaluation of the right upper extremity veins was performed using high resolution B-mode imaging, pulse and color Doppler imaging. FINDINGS: The internal jugular, subclavian, axillary, brachial, radial and ulnar veins are patent. The basilic and cephalic veins are patent. Normal venous waveforms. IMPRESSION: 1. No deep venous thrombosis identified in the right upper extremity. SL: [id number] at 1522 Reported and signed by : Candie Chanel M.D. CC: Piyush Estrada MD Technologist: Destiny Rosario RDMS(Naman)(BR) Trnscb Date/Time: 10/29/2018 (1522) [email or web address] Orig Print D/T: S: 10/29/2018 (1525)Probe: PAGE 1 Signed [id number] 11:53:00 Test Item Value Reference Range Comments GLUBED (test code=GLUBED) 181 MG/DL 70-110 Performed by certified patch press operator at [facility] [id number] 09:07:00 Test Item Value Reference Range Comments GLUBED (test code=GLUBED) 83 MG/DL 70-110 Performed by certified patch press operator at [facility] CBC W/AUTO [id number] 08:32:00 Test Item Value Reference Range Comments [...] DIFF REQUIRED (test code=MDIFF) NO COMPREHENSIVE METABOLIC [id number] 07:51:00 Test Item Value Reference Range Comments [...] PHOSPHATASE TOTAL 89 IUnit/L 20-125 (test code=ALKP) [id number] 07:51:00 Test Item Value Reference Range Comments MAGNESIUM (test code=MAG) 2.00 mg/dL 1.8-2.4 [id number] 20:41:00 Test Item Value Reference Range Comments GLUBED (test code=GLUBED) 91 MG/DL 70-110 Performed by certified patch press operator at [facility] [id number] 19:24:00 Test Item Value Reference Range Comments GLUBED (test code=GLUBED) 158 MG/DL 70-110 Performed by certified patch press operator at [facility] [id number] 19:24:00 Test Item Value Reference Range Comments GLUBED (test code=GLUBED) 106 MG/DL 70-110 Performed by certified patch press operator at [facility] URINALYSIS [id number] 11:17:00 Test Item Value Reference Range Comments [...] code=SQU) 0-5 /HPF NONE SEEN UA CULT [id number] 11:17:00 Test Item Value Reference Range Comments UA CULTURE NEEDED? (test NO, WBC<10 Criteria Culture Chk Criteria not met, Urine code=UACULT) Culture cancelled. [id number] 09:11:00 Test Item Value Reference Range Comments GLUBED (test code=GLUBED) 85 MG/DL 70-110 Performed by certified patch press operator at [facility] BASIC METABOLIC [id number] 08:13:00 Test Item Value Reference Range Comments [...] 0.6-1.3 CALCIUM (test code=CA) 8.9 mg/dL 8.0-10.5 [id number] 08:13:00 Test Item Value Reference Range Comments MAGNESIUM (test code=MAG) 2.10 mg/dL 1.8-2.4 CBC W/AUTO [id number] 07:40:00 Test Item Value Reference Range Comments [...] 0.0-0.1 MANUAL DIFF REQUIRED (test code=MDIFF) NO [id number] 23:54:00 Test Item Value Reference Range Comments GLUBED (test code=GLUBED) 243 MG/DL 70-110 Performed by certified patch press operator at [facility] PROTHROMBIN [id number] 07:45:00 Test Item Value Reference Range Comments [...] Infarction (to prevent recurrent infarct). THROMBOPLASTIN TIME [id number] 07:45:00 Test Item Value Reference Range Comments THROMBOPLASTIN TIME PARTIAL 37.6 Seconds 25.0-39.5 Therapeutic Range: (test code=PTT) 61.8-83.8 Sec Effective 10/06/2013 BASIC METABOLIC [id number] 07:34:00 Test Item Value Reference Range Comments [...] be done morning of Heart CathCBC W/AUTO [id number] 07:31:00 Test Item Value Reference Range Comments [...] COMMENTS: To be done morning of Heart [id number] 07:23:00 Test Item Value Reference Range Comments GLUBED (test code=GLUBED) 73 MG/DL 70-110 Performed by certified patch press operator at [facility] [id number] 21:06:00 Test Item Value Reference Range Comments GLUBED (test code=GLUBED) 145 MG/DL 70-110 Performed by certified patch press operator at [facility] [id number] 17:23:00 Test Item Value Reference Range Comments GLUBED (test code=GLUBED) 82 MG/DL 70-110 Performed by certified patch press operator at [facility] - XR UGI W/O [id number] 17:17:00 FAX: Keaton Campbell MD [place]: St: [facility] FAX: Scooby Wyman MD [phone] ---- Name: EVA HARDEN : 1970 Age/S: 48/F [address] [place] [address] Unit #: [id number] Loc: [place] [address] Phys: Keaton Campbell MD Acct: [id number] Dis Date: Status: ADM IN PHONE #: [phone] Exam Date: 10/26/2018 1650 FAX #: [phone] Reason: hx of gastric bypass at another institution. C/ EXAMS: CPT CODE : [id number] XR UGI W/O KUB 92535 ESOPHAGRAM AND UPPER GI: HISTORY: History of [...] Signed Report (CONTINUED) FAX: Keaton Campbell MD [phone] [place]: St: ADM FAX: Scooby Wyman MD [phone] Name: EVA HARDEN [facility] : 1970 Age/S: 48/F [address] [place] [address] Unit #: [id number] Loc: [address] [address] Phys: Keaton Campbell MD Acct: [id number] Dis Date: Status: ADM IN PHONE #: [phone] Exam Date : 10/26/2018 1650 FAX#: [phone] Reason: hx of gastric bypass at another institution. C/ EXAMS: CPT CODE: [id number] XR UGI W/O KUB 85051 <Continued> at 9282 Reported andsigned by: Fidel Gomez M.D. CC: Keaton Campbell MD; Scooby Durant MD Technologist: GOPAL Betts) Trnscrd Date/Time/By: 10/26/2018 (4513) : By: EmelyJ Orig Print D/T: S: (5878) PAGE 2 Signed [id number]- 18 15:16:00 Test Item Value Reference Range Comments CREATININE (test code=CREAT) 0.7 mg/dL 0.6-1.3 [id number] 11:25:00 Test Item Value Reference Range Comments GLUBED (test code=GLUBED) 87 MG/DL 70-110 Performed by certified patch press operator at [facility] BASIC METABOLIC [id number] 08:13:00 Test Item Value Reference Range Comments SODIUM (test code=NA) 140 mEq/L 134-147 POTASSIUM (test code=K) 4.0 mEq/L 3.4-5.0 CHLORIDE (test code=CL) 110 mEq/L 100-108 CARBON DIOXIDE (test code=CO2) 26 mEq/L 21-33 ANION GAP (test code=GAP) 8 0-20 GLUCOSE (test code=GLU) 81 mg/dL 70-110 BLOOD UREA NITROGEN (test 10 mg/dL 7-18 code=BUN) GLOMERULAR FILTRATION RATE 131.1 95-105 Units of measure=ml/min/1.73 (test code=GFR) m2 CREATININE (test code=CREAT) 0.5 mg/dL 0.6-1.3 CALCIUM (test code=CA) 8.7 mg/dL 8.0-10.5 [id number] 08:08:00 Test Item Value Reference Range Comments GLUBED (test code=GLUBED) 82 MG/DL 70-110 Performed by certified patch press operator at [facility] CBC W/AUTO [id number] 07:50:00 Test Item Value Reference Range Comments [...] 0.0-0.1 MANUAL DIFF REQUIRED (test code=MDIFF) NO [id number] 20:42:00 Test Item Value Reference Range Comments GLUBED (test code=GLUBED) 97 MG/DL 70-110 Performed by certified patch press operator at [facility] [id number] 16:18:00 Test Item Value Reference Range Comments GLUBED (test code=GLUBED) 94 MG/DL 70-110 Performed by certified patch press operator at [facility] - PULM VENT PERF [id number] 15:28:00 FAX: Scooby Wyman MD [place]: St: ADM FAX: Chris Galindo MD [phone] Name: EVA HARDEN [facility] : 1970 Age/S: 48/F [address] [place] [address] Blvd Unit #: [id number] Loc: [place] [address] Phys: Chris Ny MD Acct: [id number] Dis Date: Status: ADM IN PHONE #: [phone] Exam Date: 10/25/2018 1516 FAX #: [phone] Reason: CP, HIGH D-DIMER, R/O PE EXAMS: CPT CODE: [id number] PULM VENT PERF IMAG 32325 NUCLEAR MEDICINE VENTILATION/PERFUSION LUNG SCAN HISTORY: Chest [...] Technologist: Bernice Sloan, RT(N)(CT)(PET) Trnscrd Date/Time/By: 10/25/2018 (1520) : By: Jannet Orig Print D/T: S: 10/25/2018 (8602) PAGE 1 Signed [id number] 14:32:00 Test Item Value Reference Range Comments GLUBED (test code=GLUBED) 107 MG/DL 70-110 Performed by certified patch press operator at [facility] [id number] 09:53:00 Test Item Value Reference Range Comments GLUBED (test code=GLUBED) 108 MG/DL 70-110 Performed by certified patch press operator at [facility] BASIC METABOLIC [id number] 09:07:00 Test Item Value Reference Range Comments [...] 0.6-1.3 CALCIUM (test code=CA) 8.1 mg/dL 8.0-10.5 10/25/18629COMMENTS: 3 troponins total (including troponin done in ED)THYROID STIMULATING [id number] 09:07:00 Test Item Value Reference Range Comments THYROID STIMULATING HORMONE (test 2.30 0.42-5.47 Results in tariq- [employer] code=TSH) Units/mL 10/25/18629COMMENTS: 3 troponins total (including troponin done in ED)TROPONIN -[id number] 09:07:00 Test Item Value Reference Range Comments TROPONIN-I (test < 0.015 ng/mL 0.000-0.045 Negative: <=0.045 code=TROPI) Positive: >=0.046 Correlation with serial results, other cardiac markers andclinical findings is necessary to determine the clinicalsignificance of this result. Results using different methodologies should not be comparedto one another as quantitative results may vary by method. 10/25/18629COMMENTS: 3 troponins total (including troponin done in ED)- CT CHEST W/O [id number] 09:04:00 Name: EVA HARDEN [facility] : 1970 Age/S: 48 / F [address] [place] [address] Unit #: [id number] Loc: [place], [place] Phys: Scooby Durant MD Acct: [id number] Dis Date: Status: ADM IN PHONE #: [phone] Exam Date: 10/25/2018829 FAX #: [phone] Reason: pleurisy EXAMS: CPTCODE: [id number] CT CHEST W/O CONTRAST 94490 PROCEDURE: CT CHEST WITHOUT CONTRAST INDICATION: Chest [...] Signed Report ( CONTINUED) Name: EVA HARDEN [facility] Bruno Duncan : 1970 Age/S: 48 / F [address] [place] [address] Unit #: [id number] Loc: [place] [address] Phys: Scooby Durant MD Acct: [id number] Dis Date: Status: ADM IN PHONE #: [phone] Exam Date: 10/25/2018 08 FAX #: [phone]: pleurisy EXAMS: CPT CODE: [id number] CT CHEST W/O CONTRAST 08061 <Continued> CC: Scooby Durant MD Technologist:Leonie Azar, RT(R)(CT) CTDI: DLP: Trnscb Date/Time: 10/25/2018 (903) Jannet Orig Print D/T: S: 10/25/2018 (906) CTDI: DLP : PAGE 2 Signed ViowvsNVVH4Q%2018-10-25 08:45:00 Test Item Value Reference Range Comments HGBA1C% (test code=HGBA1C%) 5.5 %A1C 4.8-6.0 - DUP VEIN [id number] 08:40:00 Name: EVA HARDEN : 1970 Age/S: 48 / F [address] [place] [address] Unit #: [id number] Loc: [facility] [id number] Phys: Scooby Durant MD Acct: [id number] Dis Date: Status: ADM IN PHONE #: [phone] Exam Date: 10/25/2018821 FAX #: [phone] Reason: elevated ddimer EXAMS: CPTCODE: [id number] DUP VEIN RASHID 91067 PROCEDURE: BILATERAL LOWER EXTREMITY VENOUS ULTRASOUND INDICATION: [...] CC: Scooby Durant MD Technologist: Michelle Silverman RDMS(A) Trnscb Date/Time: 10/25/2018 (0840) t.JN Orig Print D/T: S: 10/25/2018 (0843) Probe: PAGE 1 Signed ReportCBC W/AUTO [id number] 08:21:00 Test Item Value Reference Range Comments [...] 0.0-0.1 MANUAL DIFF REQUIRED (test code=MDIFF) NO [id number] 03:19:00 Test Item Value Reference Range Comments TROPONIN-I (test < 0.015 ng/mL 0.000-0.045 Negative: <=0.045 code=TROPI) Positive: >=0.046 Correlation with serial results, other cardiac markers andclinical findings is necessary to determine the clinicalsignificance of this result. Results using different methodologies should not be comparedto one another as quantitative results may vary by method. COMMENTS: 3 troponins total (including troponin done in ED)B-TYPE NATRIURETIC [id number] 00:32:00 Test Item Value Reference Range Comments B-TYPE NATRIURETIC PEPTIDE (test code=BNP) 20.4 PG/ML 0-100 - XR CHEST 1 [id number] 00:18:00 FAX: Pam Weinstein DO [place]: St: REG Name: EVA HARDEN [facility] : 1970 Age/S: 48/F [address] [place] [address] Unit#: [id number] Loc: [place] [address] Phys: Pam Benitez DO Acct: [id number] Dis Date: Status: REG ER PHONE #: [phone] Exam Date: 10/24/2018 2464 FAX #: [phone] Reason: Chest Pain EXAMS: CPT CODE: [id number] XR CHEST 1 V 88450 EXAM: CR, XR chest one view: 10/24/2018 [...] Marquez M.D. CC: Pam Benitez DO Technologist: RT Fanny(R); Oral Mendiola Trnscrd Date/ Time/By: 10/25/2018 (0018) : By: Royal.JS38 Orig Print D/T: S:2018 (0022) PAGE 1 Signed ReportBASIC METABOLIC [id number] 00:11:00 Test Item Value Reference Range Comments [...] (test code=CA) 8.3 mg/dL 8.0-10.5 HEPATIC FUNCTION [id number] 00:11:00 Test Item Value Reference Range Comments TOTAL PROTEIN (test code=PROT) 7.4 g/dL 6.4-8.2 ALBUMIN (test code=ALB) 3.60 g/dL 3.4-5.0 BILIRUBIN TOTAL (test code=BILT) 0.20 mg/dL 0.0-1.0 BILIRUBIN DIRECT (test code=BILD) < 0.10 MG/DL 0.0-0.30 BILIRUBIN INDIRECT (test code=BILIND) 0.10 MG/DL SGOT/AST (test code=AST) 14 IUnit/L 15-37 SGPT/ALT (test code=ALT) 31 IUnit/L 15-65 ALKALINE PHOSPHATASE TOTAL (test code=ALKP) 102 IUnit/L 20-125 PROTHROMBIN [id number] 23:57:00 Test Item Value Reference Range Comments [...] Acute Myocardial Infarction (to prevent recurrent infarct). [id number] 23:57:00 Test Item Value Reference Range Comments D-DIMER (test 1162 ng/mlFEU <=500 THROMBOSIS AND/OR PULMONARY code=DDIMER) EMBOLISM AND THE CLINICAL CUT- OFF VALUE FOR EXCLUSION (500 ng/mL FEU) OF THESE CONDITIONSIS VALIDATED BY THE SAFETY LEADER OF THE METHOD. A NEGATIVE D-DIMER RESULT WHEN COMBINED WITH A CLINICALASSESSMENT OF LOW PRETEST PROBABILITY HAS BEEN SHOWN TO HAVEA HIGH NEGATIVE PREDICTIVE VALUE OF DVT OR PE. D-DIMER VALUES >500 ng/mL FEU ARE NOT DIAGNOSTIC FOR DVT, PEor DIC WITHOUT OTHER CONFIRMATORY TESTS AND APPROPRIATECLINICAL EUALUATIONS. CBC W/AUTO [id number] 23:50:00 Test Item Value Reference Range Comments [...] 0.0-0.1 MANUAL DIFF REQUIRED (test code=MDIFF) NO CT Abdomen and Pelvis w/o [id number] 23:22:30Patient: EVA HARDEN Date/Time05/16/201823: 06 CDTReason for ExamAbdominal painReportCT Abdomen and Pelvis w/o ContrastLOCATION: [id number]: Abdominal painCOMPARISON: CT of the abdomen and pelvis 12/23/2017TECHNIQUE: Axial images of the abdomen and pelvis were obtained without intravenous contrast. Coronal and sagittal reformatted images were created.One or more of the following dose reduction techniques were used: Automated exposure control, adjustment of the mA and/or kV according to patient size, and/or utilization of iterative reconstruction technique.DISCUSSION:Lower thorax: Minimal bibasilar atelectasis.Hepatobiliary: Unremarkable.No biliary ductal dilatation.Gallbladder: Removed.Spleen: Unremarkable.Pancreas: Unremarkable.Adrenals: Small fluid density nodules in both adrenal glands are likely adenomas.Kidneys/ureters: A hypodense lesion in the mid right kidney is too small to characterize. Otherwise, unremarkable.Pelvic organs/bladder: The uterus is absent. The bladder and adnexa are unremarkable.Vessels: Multiple small calcifications along the pelvic floor are likely phleboliths.Lymph nodes: No lymphadenopathy.Peritoneum/retroperitoneum: No free fluid. No definite evidence for pneumoperitoneum.Bowel: Gastric bypass changes are present. Otherwise, no abnormal bowel wall thickening or evidence of obstruction. There areno inflammatory changes in the area of the appendix.Bones/soft tissues: There are mild degenerative changes throughout the spine, pelvis, and hips. Mild diastases recti is present.IMPRESSION:No acute abnormalities in the abdomen or pelvis. Final Dictated by: MD Valdez Alfred EDictated DT/TM: 05/16/2018 11:18 pmSigned by: MD Valdez Alfred ESigned ( Electronic Signature): 05/16/201811:22 [id number] 01:00:00 Test Item Value Reference Range Comments Lipase (test code=LIP) 28 U/L 13-60 Comprehensive Metabolic [id number] 01:00:00 Test Item Value Reference Range Comments [...] race is not provided, and the patient isAfrican-Egyptian, multiply by 1.212. If sex is not [...] the National Kidney Foundation,http://nkdep.nih .gov BHCG, Urine, [id number] 00:45:00 Test Item Value Reference Range Comments Preg Qual [Ur] (test code=HUHCG) Negative Negative CBC with [id number] 00:44:00 Test Item Value Reference Range Comments [...] Lymph Abs (test code=ALYMPH) 2.6 K/cumm 0.5-4.6 [place] Abs (test code=AMONO) 0.4 K/cumm 0.0-1.2 Eos Abs (test code=AEOS) 0.38 K/cumm 0.00-0.74 Baso Abs (test code=ABASO) 0.1 K/cumm 0.00-0.21 Urinalysis [id number] 00:32:00 Test Item Value Reference Range Comments Color (test code=COLOR) Yellow Yellow,Straw,Pl yellow Clarity (test code=CLAR) Sl Cloudy Clear Specific [place] (test code=SPGR) 1.016 1.001-1.035 pH (test code=PH) [...] /HPF 0-5 Bacteria (test code=BACT) Many /HPF [id number] 17:42:00 Test Item Value Reference Range Comments Lipase (test code=LIP) 28 U/L 13-60 Comprehensive Metabolic [id number] 17:42:00 Test Item Value Reference Range Comments [...] race is not provided, and the patient isAfrican-Egyptian, multiply by 1.212. If sex is not [...] the National Kidney Foundation,http://nkdep.nih .gov CBC with [id number] 17:00:00 Test Item Value Reference Range Comments [...] Lymph Abs (test code=ALYMPH) 2.0 K/cumm 0.5-4.6 [place] Abs (test code=AMONO) 0.3 K/cumm 0.0-1.2 Eos Abs (test code=AEOS) 0.34 K/cumm 0.00-0.74 Baso Abs (test code=ABASO) 0.0 K/cumm 0.00-0.21 05800& PELVIS W/O [id number] 16:47:19CT OF THE ABDOMEN AND PELVIS WITHOUT [...] absence of the gallbladder and uterus.POC Glucose, [id number] 07:45:00 Test Item Value Reference Range Comments POC Glucose (test 158 mg/dL 70-115 Notify RN or MDIf you consider code=POCGLUC) your patient critically ill, the [facility] Accu-Chek InformII metershould not be used for Glucose determinations.Draw a venous Glucose and send to the Main Lab for Analysis. POC Glucose, [id number] 20:31:00 Test Item Value Reference Range Comments POC Glucose (test 167 mg/dL 70-115 If you consider your patient code=POCGLUC) critically ill, the [facility] Accu-Chek InformII metershould not be used for Glucose determinations.Draw a venous Glucose and send to the Main Lab for Analysis. POC Glucose, [id number] 16:44:00 Test Item Value Reference Range Comments POC Glucose (test 148 mg/dL 70-115 If you consider your patient code=POCGLUC) critically ill, the [facility] Accu-Chek InformII metershould not be used for Glucose determinations.Draw a venous Glucose and send to the Main Lab for Analysis. POC Glucose, [id number] 11:25:00 Test Item Value Reference Range Comments POC Glucose (test 173 mg/dL 70-115 If you consider your patient code=POCGLUC) critically ill, the [facility] Accu-Chek InformII metershould not be used for Glucose determinations.Draw a venous Glucose and send to the Main Lab for Analysis. POC Glucose, [id number] 07:30:00 Test Item Value Reference Range Comments POC Glucose (test 191 mg/dL 70-115 If you consider your patient code=POCGLUC) critically ill, the [place] Accu-Chek InformII metershould not be used for Glucose determinations.Draw a venous Glucose and send to the Main Lab for Analysis. POC Glucose, [id number] 06:33:00 Test Item Value Reference Range Comments POC Glucose (test 181 mg/dL 70-115 If you consider your patient code=POCGLUC) critically ill, the [place] Accu-Chek InformII metershould not be used for Glucose determinations.Draw a venous Glucose and send to the Main Lab for Analysis. Comprehensive Metabolic [id number] 05:28:00 Test Item Value Reference Range Comments [...] race is not provided, and the patient isAfrican-Egyptian, multiply by 1.212. If sex is not [...] the National Kidney Foundation,http://nkdep.nih .gov CBC with [id number] 05:03:00 Test Item Value Reference Range Comments [...] Lymph Abs (test code=ALYMPH) 1.6 K/cumm 0.5-4.6 Gilpin Abs (test code=AMONO) 0.3 K/cumm 0.0-1.2 Eos Abs (test code=AEOS) 0.23 K/cumm 0.00-0.74 Baso Abs (test code=ABASO) 0.0 K/cumm 0.00-0.21 POC Glucose, [id number] 21:57:00 Test Item Value Reference Range Comments POC Glucose (test 176 mg/dL 70-115 If you consider your patient code=POCGLUC) critically ill, the [place] Accu-Chek InformII metershould not be used for Glucose determinations.Draw a venous Glucose and send to the Main Lab for Analysis. POC Glucose, [id number] 16:25:00 Test Item Value Reference Range Comments POC Glucose (test 148 mg/dL 70-115 If you consider your patient code=POCGLUC) critically ill, the [place] Accu-Chek InformII metershould not be used for Glucose determinations.Draw a venous Glucose and send to the Main Lab for Analysis. CT NECK SOFT TISSUE WO [id number] 15:49:06Exam: CT soft tissue neck withoutcontrast.Location: L3Acnwjcl: Neck painTechnique: Unenhanced spiral slices were taken through the neck.Sagittal and coronal reformations were performed. One or more ofthefollowing radiation dose reduction techniques was used: Automaticexposure control, adjustment of mA and/or KV according to the patient'ssize, and/or utilization of iterative reconstruction technique. Findings:The parotid space, carotid space, operations recruiter space, prevertebral spaceand the fossa of Rosenm?ller are normal. The oral and hypopharynx areunremarkable.The salivary glands are normal. No sialadenitis or sialolithiasis isseen.The larynx and trachea are normal. The cervical and visualized thoracicesophagus is unremarkable. No lymphadenopathy is present in eitherjugular or either posterior chain.The thyroid gland is normal. The soft tissues are unremarkable.Impression:Unremarkable exam.CT CHEST W/O [id number] 15:45:29Exam: CT thorax withoutcontrast.Location: M6Sivwtkf: Chest painTechnique: Unenhancedspiral slices were taken from [...] are notedImpression: Left lower lobe pneumonia.POC Glucose, [id number] 11:54:00 Test Item Value Reference Range Comments POC Glucose (test 200 mg/dL 70-115 If you consider your patient code=POCGLUC) critically ill, the [place] Accu-Chek InformII metershould not be used for Glucose determinations.Draw a venous Glucose and send to the Main Lab for Analysis. POC Glucose, [id number] 07:17:00 Test Item Value Reference Range Comments POC Glucose (test 180 mg/dL 70-115 If you consider your patient code=POCGLUC) critically ill, the [place] Accu-Chek InformII metershould not be used for Glucose determinations.Draw a venous Glucose and send to the Main Lab for Analysis. Comprehensive Metabolic [id number] 06:33:00 Test Item Value Reference Range Comments [...] race is not provided, and the patient isAfrican-Egyptian, multiply by 1.212. If sex is not [...] the National Kidney Foundation,http://nkdep.nih .gov CBC with [id number] 06:13:00 Test Item Value Reference Range Comments [...] Lymph Abs (test code=ALYMPH) 1.6 K/cumm 0.5-4.6 Gilpin Abs (test code=AMONO) 0.4 K/cumm 0.0-1.2 Eos Abs (test code=AEOS) 0.31 K/cumm 0.00-0.74 Baso Abs (test code=ABASO) 0.0 K/cumm 0.00-0.21 POC Glucose, [id number] 23:37:00 Test Item Value Reference Range Comments POC Glucose (test 152 mg/dL 70-115 If you consider your patient code=POCGLUC) critically ill, the [place] Accu-Chek InformII metershould not be used for Glucose determinations.Draw a venous Glucose and send to the Main Lab for Analysis. POC Glucose, [id number] 17:16:00 Test Item Value Reference Range Comments POC Glucose (test 170 mg/dL 70-115 If you consider your patient code=POCGLUC) critically ill, the [place] Accu-Chek InformII metershould not be used for Glucose determinations.Draw a venous Glucose and send to the Main Lab for Analysis. D-Dimer, [id number] 15:56:00 Test Item Value Reference Range Comments D-Dimer, Quant (test code=DDQNT) 1610 ng/mL 0-500 80830&PERFUS [id number] 14:47:54Dictation location: R 16Clinical indication: Shortness of [...] of pulmonary emboli.US DUPLX EXT VEINS COMPRS, [id number] 12:42:18DICTATION LOCATION: [id number]: DVTCOMPARISON: None available.TECHNIQUE: Duplex sonography of theright [...] lower extremity.Small right Gaspar's cyst.XR CHEST 2V, [id number] 11:43:22EXAM: Chest x-ray, 2 viewsLOCATION: [id number]: Chest radiograph 12/04/2017 and 11/26/2017INDICATION: chest painDISCUSSION:PA [...] silhouette.3. Otherwise, no acute cardiopulmonary abnormalities.POC Glucose, [id number] 07:08:00 Test Item Value Reference Range Comments POC Glucose (test 201 mg/dL 70-115 Notify RN or MDIf you consider code=POCGLUC) your patient critically ill, the [facility] Accu-Chek InformII metershould not be used for Glucose determinations.Draw a venous Glucose and send to the Main Lab for Analysis. POC Glucose, [id number] 00:19:00 Test Item Value Reference Range Comments POC Glucose (test 173 mg/dL 70-115 Notify RN or MDIf you consider code=POCGLUC) your patient critically ill, the [place] Accu-Chek InformII metershould not be used for Glucose determinations.Draw a venous Glucose and send to the Main Lab for Analysis. POC Glucose, [id number] 21:49:00 Test Item Value Reference Range Comments POC Glucose (test 189 mg/dL 70-115 If you consider your patient code=POCGLUC) critically ill, the [place] Accu-Chek InformII metershould not be used for Glucose determinations.Draw a venous Glucose and send to the Main Lab for Analysis. POC Glucose, [id number] 17:09:00 Test Item Value Reference Range Comments POC Glucose (test 193 mg/dL 70-115 Notify RN or MDIf you consider code=POCGLUC) your patient critically ill, the [place] Accu-Chek InformII metershould not be used for Glucose determinations.Draw a venous Glucose and send to the Main Lab for Analysis. POC Glucose, [id number] 12:20:00 Test Item Value Reference Range Comments POC Glucose (test 166 mg/dL 70-115 If you consider your patient code=POCGLUC) critically ill, the [place] Accu-Chek InformII metershould not be used for Glucose determinations.Draw a venous Glucose and send to the Main Lab for Analysis. POC Glucose, [id number] 09:03:00 Test Item Value Reference Range Comments POC Glucose (test 212 mg/dL 70-115 If you consider your patient code=POCGLUC) critically ill, the [place] Accu-Chek InformII metershould not be used for Glucose determinations.Draw a venous Glucose and send to the Main Lab for Analysis. Comprehensive Metabolic [id number] 05:54:00 Test Item Value Reference Range Comments [...] race is not provided, and the patient isAfrican-Egyptian, multiply by 1.212. If sex is not [...] the National Kidney Foundation,http://nkdep.nih .gov CBC with [id number] 05:40:00 Test Item Value Reference Range Comments [...] Lymph Abs (test code=ALYMPH) 1.7 K/cumm 0.5-4.6 Gilpin Abs (test code=AMONO) 0.9 K/cumm 0.0-1.2 Eos Abs (test code=AEOS) 0.04 K/cumm 0.00-0.74 Baso Abs (test code=ABASO) 0.0 K/cumm 0.00-0.21 POC Glucose, [id number] 05:04:00 Test Item Value Reference Range Comments POC Glucose (test 202 mg/dL 70-115 If you consider your patient code=POCGLUC) critically ill, the [facility] Accu-Chek InformII metershould not be used for Glucose determinations.Draw a venous Glucose and send to the Main Lab for Analysis. XR CHEST 1 [id number] 03:04:28AFTER HOURS SERVICE ON: 12/04/2017 3:04 AMAP Portable ChestLocation Code [id number]: Status Post Lap Gastric BypassFINDINGS: There are no infiltrates. There are no pleural effusions. There is nopneumothorax. Cardiac silhouette and mediastinum appear within normallimits. Surgical drain is noted projecting over the mid abdomen and leftupper quadrant.IMPRESSION: No active intrathoracic findings.POC Glucose, [id number] 02:06:00 Test Item Value Reference Range Comments POC Glucose (test 213 mg/dL 70-115 If you consider your patient code=POCGLUC) critically ill, the [place] Accu-Chek InformII metershould not be used for Glucose determinations.Draw a venous Glucose and send to the Main Lab for Analysis. POC Glucose, [id number] 21:15:00 Test Item Value Reference Range Comments POC Glucose (test 236 mg/dL 70-115 If you consider your patient code=POCGLUC) critically ill, the [place] Accu-Chek InformII metershould not be used for Glucose determinations.Draw a venous Glucose and send to the Main Lab for Analysis. POC Glucose, [id number] 16:03:00 Test Item Value Reference Range Comments POC Glucose (test 235 mg/dL 70-115 If you consider your patient code=POCGLUC) critically ill, the [place] Accu-Chek InformII metershould not be used for Glucose determinations.Draw a venous Glucose and send to the Main Lab for Analysis. POC Glucose, [id number] 11:24:00 Test Item Value Reference Range Comments POC Glucose (test 269 mg/dL 70-115 If you consider your patient code=POCGLUC) critically ill, the [place] Accu-Chek InformII metershould not be used for Glucose determinations.Draw a venous Glucose and send to the Main Lab for Analysis. XR CHEST 2 [id number] 18:35:18CLINICAL INFORMATION: Preprocedural evaluation. Checkup..Dictation Location: R 16Comparison: No prior.Findings: The heart size and pulmonary vessels are unremarkable.No active consolidation, effusion, or soft tissue mass is identified.Mild vertebral spurring.IMPRESSION: No active disease of the heart or lungs identified.Basic Metabolic [id number] 18:23:00 Test Item Value Reference Range [...] race is not provided, and the patient isAfrican-Egyptian, multiply by 1.212. If sex is not [...] the National Kidney Foundation,http://nkdep.nih .gov CBC with [id number] 18:08:00 Test Item Value Reference Range Comments [...] Lymph Abs (test code=ALYMPH) 2.0 K/cumm 0.5-4.6 Gilpin Abs (test code=AMONO) 0.3 K/cumm 0.0-1.2 Eos Abs (test code=AEOS) 0.14 K/cumm 0.00-0.74 Baso Abs (test code=ABASO) 0.0 K/cumm 0.00-0.21 US DUPLX EXT VEIN COMPRS, [id number] 13:22:06DICTATION LOCATION: [id number]: I82.409: ACUTE EMBOLISM AND THOMBOS UNSP DEEP [...]
--- OUTSIDE RECORDS SUMMARY | 2019-11-19 05:49 | XMS REPORT | Summary of Care ---
:1970 Author Organization [facility] Address [address] [place] [address] Care Team Providers Name Role Phone Robert Radford MD Unavailable Unavailable Gorge Hagen DO Primary Care Provider Reason for Visit Reason Comments Results Encounter Details Date Type Department Care Team Description 04/05/2019 Telephone [facility] Abraham Lopez MBBS Results Diabetes-LC Multispecialty [address] [place] [address]. [place] [address] 5256 [facility] [phone] [place] [address] [phone] Allergies Active Allergy Reactions Severity Noted Date [...] as of this encounter (statuses as of 04/05/2019) Medications Medication Sig Dispensed Refills Start Date [...] as of this encounter (statuses as of 04/05/2019) Active Problems Problem Noted Date Obesity (BMI [...] mellitus without complications Overview: ICD10 Diagnosis Term Broadcast Journalist Utility documented as of this encounter (statuses as of 04/05/2019) Resolved Problems Problem Noted Date Resolved Date Type 2 diabetes mellitus 11/26/2013 12/30/2013 documented as of this encounter (statuses as of 04/05/2019) Immunizations Name Administration Dates Next Due Influenza [...] Team Description 04/06/2019 Office Visit Internal Medicine Bernice Arzate MD [address] [place] [phone] Clint Arevalo MD [address] [place] [address] [phone] 05/04/2019 Office Visit Neurology Kirill Arango MD [address] [place] [phone] 05/05/2019 Office Visit Obstetrics & Gynecology Ileana Cordova MD [address] [place] [address] [place] [address] [phone] 05/06/2019 Office Visit Internal Medicine Bernice Arzate MD [address] [place] [phone] [phone] 06/03/2019 Office Visit Gastroenterology Jaciel Boucher MD [address] [place] [address]. [address] [place] [phone] 06/09/2019 Office Visit Endocrinology Diabetes & Ralph, Sayda, STEAM BONE PRESS TENDER Metabolism [address] [place] [address] [phone] Health Maintenance Due Date Last Done Comments [...] of this encounter Implants Implanted Type Area Drawing Kiln Operator Device Shelf Model / Identifier Expiration Serial / Lot Date Dbm Sonny Maxxeus .5cc [facility] #2014-40 - Sn/A BONE Right: Community Tissue 03/07/2018 / Implanted: Qty: 1 on 08/14/2016 by Biju Middleton at [facility] AT [facility] N/A / [id number] Cement CEMENT Right: [place] 08/07/2018 [id number] / Implanted: Qty: 1 on 04/14/2017 by Michael Hernandez MD at [facility] Knee [id number] / [id number] Cr Tibial Bearing KNEE Right: Biomet 02/18/2022 [id number] / Implanted: Qty: 1 on 04/14/2017 by Michael Hernandez MD at [facility] Knee [id number] / [id number] Cr Femoral Right KNEE Right: Biomet 03/17/2027 [id number] / Implanted: Qty: 1 on 04/14/2017 by Michael Hernandez MD at [facility] Knee [id number] / [id number] Primary Tibial Modular Tray KNEE Right: Biomet 01/16/2021 [id number] / Implanted: Qty: 1 on 04/14/2017 by Michael Hernandez MD at [facility] Knee [id number] / [id number] Standard Patella PATELLA Right: Biomet 01/22/2022 [id number] / Implanted: Qty: 1 on 04/14/2017 by Michael Hernandez MD at [facility] Knee [id number] / [id number] Screw Bone Ti 2.7mm Acumed #Co-F2710 - S2 Aug 23 SCREW Right: [employer] CO-F2710 / Implanted: Qty: 2 on 08/14/2016 by Biju Middleton at [facility] 2 AUG 23 / NA Description: right mcp joint Screw Bone Ti 2.7mm Acumed #Co-F2712 - S2 Aug 23 SCREW Right: Hand [employer] CO-F2712 / Implanted: Qty: 1 on 08/14/2016 by Biju Middleton at [facility] 2 16 AUG 23 / NA Description: right mcp joint Screw Bone Ti 2.7mm Acumed #Co-F2708 - Sor Sterlization SCREW Right: Hand [employer] CO-F2708 / Implanted: Qty: 1 on 08/14/2016 by Biju Middleton at [facility] OR STERLIZATION / OR STERILIZATION Description: Load # Screw Bone Ti 2.7mm Acumed #Co-F2706 - [id number] SCREW Right: Hand [employer] CO-F2706 / Implanted: Qty: 1 on 08/14/2016 by Biju Middleton at [facility] N/A / N/A Bone Screw SCREW Right: Knee [employer]omet 10/27/2026 [id number] / Implanted: Qty: 1 on 04/14/2017 by Michael Hernandez MD at [facility] [id number] / [id number] Bone Screw SCREW Right: Knee [employer] 08/15/2026 [id number] / Implanted: Qty: 1 on 04/14/2017 by Michael Hernandez MD at [facility] [id number] / [id number] Bone Screw SCREW Right: Knee [employer] 10/27/2026 [id number] / Implanted: Qty: 1 on 04/14/2017 by Michael Hernandez MD at [facility] [id number] / [id number] Bone Screw SCREW Right: Knee [employer] 08/21/2025 [id number] / Implanted: Qty: 1 on 04/14/2017 by Michael Hernandez MD at [facility] [id number] / [id number] Modular Finned Stem Stem Right: Knee [employer] 02/12/2027 [id number] / Implanted: Qty: 1 on 04/14/2017 by Michael Hernandez MD at [facility] [id number] / [id number] Cammulated Interference Screw Right: Hand [employer] 11/01/2020 [id number] / Implanted: Qty: 2 on 05/06/2016 by Biju Middleton at [facility] AT [facility] N/A / [id number] Mcp Fusion Plate, Right Right: Hand EMERY OVALLES PL-MCPR / Implanted: Qty: 1 on 08/14/2016 by Biju Middleton at [facility] AT [facility] 2 AUG 23 documented as of this encounter Results Not on filedocumented in this encounter Insurance Payer Benefit Plan / Subscriber ID Effective Phone Address Type Group Constance CRUZ xxxxxxxxx 2015-Srinivasan SANTILLAN Medicaid HEALTHCARE - [facility] [id number] MANAGED MEDICAID [place], MEDICAID [place] documented as of this encounter
--- OUTSIDE RECORDS SUMMARY | 2019-11-19 05:49 | XMS REPORT | Summary of Care ---
:[address] [facility] Address [address] [place] [address] Care Team Providers Name Role Phone Robert Radford MD Unavailable Unavailable Gorge Hagen DO Primary Care Provider Encounter Details Date Type Department Care Team Description 03/31/2019 Patient Secure Msg [facility] MyChart Messages Doctor Unassigned, [address] [place] [address] [place] [phone] [place] [address] [place] [address] Allergies Active Allergy Reactions Severity Noted Date [...] mellitus without complications Overview: ICD10 Diagnosis Term Tongue Carrier Utility documented as of this encounter (statuses [...] Office Visit Internal Medicine Clint Arevalo MD [address] [place] [phone] 05/04/2019 Office Visit Neurology Kirill Arango MD [address] [place] [address] [phone] 05/05/2019 Office Visit Obstetrics & Gynecology Ileana Cordova MD [address] [place] [address] [facility] [place] [address] [phone] 05/06/2019 Office Visit Internal Medicine Bernice Arzate MD [address] [place] [address] [phone] 06/03/2019 Office Visit Gastroenterology Jaciel Boucher MD [address] [place] [address]. [address] [place] [phone] 06/09/2019 Office Visit Endocrinology Diabetes & Sayda Rosas, ELECTRICAL AND INSTRUMENTATION MECHANIC Metabolism [address] [place] [address] [phone] Health Maintenance Due Date Last Done Comments [...] of this encounter Implants Implanted Type Area Product Development Director Device Shelf Model / Identifier Expiration Serial / Lot Date Dbm Sonny Maxxeus .5cc Cts #2014-40 - Sn/A BONE Right: Community Tissue 03/07/2018 / Implanted: Qty: 1 on 08/14/2016 by Biju Middleton at [facility] AT [facility] N/A / [id number] Cement CEMENT Right: Yvonne 08/07/2018 [id number] / Implanted: Qty: 1 on 04/14/2017 by Michael Hernandez MD at [facility] Knee [id number] / [id number] Cr Tibial Bearing KNEE Right: [employer]omet 02/18/2022 [id number] / Implanted: Qty: 1 on 04/14/2017 by Michael Hernandez MD at [facility] Knee [id number] / [id number] Cr Femoral Right KNEE Right: Biomet 03/17/2027 [id number] / Implanted: Qty: 1 on 04/14/2017 by Michael Hernandez MD at [facility] Knee [id number] / [id number] Primary Tibial Modular Tray KNEE Right: [employer] 01/16/2021 [id number] / Implanted: Qty: 1 on 04/14/2017 by Michael Hernandez MD at [facility] Knee [id number] / [id number] Standard Patella PATELLA Right: [employer]omet 01/22/2022 [id number] / Implanted: Qty: 1 on 04/14/2017 by Michael Hernandez MD at [facility] Knee [id number] / [id number] Screw Bone Ti 2.7mm Acumed #Co-F2710 - S2 16 Aug 23 SCREW Right: [employer] CO-F2710 / Implanted: Qty: 2 on 08/14/2016 by Biju Middleton at [facility] 2 16 AUG 23 / NA Description: right mcp joint Screw Bone Ti 2.7mm Acumed #Co-F2712 - S2 16 Aug 23 SCREW Right: Hand [employer] CO-F2712 / Implanted: Qty: 1 on 08/14/2016 by Biju Middleton at [facility] 2 16 AUG 23 / NA Description: right mcp joint Screw Bone Ti 2.7mm Acumed #Co-F2708 - Sor Sterlization SCREW Right: Hand [employer] CO-F2708 / Implanted: Qty: 1 on 08/14/2016 by Biju Middleton at [facility] OR STERLIZATION / OR STERILIZATION Description: Load # Screw Bone Ti 2.7mm Acumed #Co-F2706 - [id number] SCREW Right: Hand [employer] CO-F2706 / Implanted: Qty: 1 on 08/14/2016 by Biju Middleton at [facility] N/A / N/A Bone Screw SCREW Right: Knee [employer] 10/27/2026 [id number] / Implanted: Qty: 1 on 04/14/2017 by Michael Hernandez MD at [facility] [id number] / [id number] Bone Screw SCREW Right: Knee [employer] 08/15/2026 [id number] / Implanted: Qty: 1 on 04/14/2017 by Michael Hernandez MD at [facility] [id number] / [id number] Bone Screw SCREW Right: Knee [employer] 10/27/2026 [id number] / Implanted: Qty: 1 on 04/14/2017 by Michael Hernandez MD at [facility] [id number] / [id number] Bone Screw SCREW Right: Knee [employer] 08/21/2025 [id number] / Implanted: Qty: 1 on 04/14/2017 by Michael Hernandez MD at [facility] [id number] / [id number] Modular Finned Stem Stem Right: Knee [employer] 02/12/2027 [id number] / Implanted: Qty: 1 on 04/14/2017 by Michael Hernandez MD at [facility] [id number] / [id number] Cammulated Interference Screw Right: Hand [employer] 11/01/2020 [id number] / Implanted: Qty: 2 on 05/06/2016 by Biju Middleton at [facility] [place] N/A / [id number] Mcp Fusion Plate, Right Right: Hand [employer] PL-MCPR / Implanted: Qty: 1 on 08/14/2016 by Biju Middleton at [facility] AT [facility] 2 16 AUG 23 documented as of this encounter Results Not on filedocumented in this encounter Insurance Payer Benefit Plan / Subscriber ID Effective Phone Address Type Group Dates ANTHONY CRUZ xxxxxxxxx 2015-Srinivasan SANTILLAN Medicaid [place] [id number] MANAGED MEDICAID [place] documented as of this encounter
--- OUTSIDE RECORDS SUMMARY | 2019-11-19 05:49 | XMS REPORT | Summary of Care ---
:1970 Author Organization [facility] - [facility] Address [address] [place] [id number] Care Team Providers Name Role Phone Robert Radford MD Unavailable Unavailable Gorge Hagen DO Primary Care Provider Encounter Details Date Type Department Care Team Description 03/31/2019 Patient Secure Msg [facility] MyChart Messages Doctor Unassigned, [address] [place] [address] [place] [phone] [place] [address] [place] [address] Allergies Active Allergy Reactions Severity Noted Date [...] mellitus without complications Overview: ICD10 Diagnosis 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 documented as of this encounter (statuses [...] Office Visit Internal Medicine Clint Arevalo MD [address] [place] [phone] 05/04/2019 Office Visit Neurology Kirill Arango MD [address] [place] [phone] 05/05/2019 Office Visit Obstetrics & Gynecology Ileana Cordova MD [address] [place] [address] [place] [address] [phone] 05/06/2019 Office Visit Internal Medicine Bernice Arzate MD [address] [place] [phone] 06/03/2019 Office Visit Gastroenterology Jaciel Boucher MD [address] [place] [address]. 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 Device Shelf Model / Identifier Expiration Serial / Lot Date Dbm Sonny Maxxeus .5cc Cts #2014-40 - Sn/A BONE Right: Community Tissue 03/07/2018 / Implanted: Qty: 1 on 08/14/2016 by Biju Middleton at [facility] N/A / [id number] Cement CEMENT Right: Yvonne 08/07/2018 [id number] / Implanted: Qty: 1 on 04/14/2017 by Michael Hernandez MD at [facility] Knee [id number] / [id number] Cr Tibial Bearing KNEE Right: [employer] 02/18/2022 [id number] / Implanted: Qty: 1 on 04/14/2017 by Michael Hernandez MD at [facility] Knee [id number] / [id number] Cr Femoral Right KNEE Right: [employer] 03/17/2027 [id number] / Implanted: Qty: 1 on 04/14/2017 by Michael Hernandez MD at [facility] Knee [id number] / [id number] Primary Tibial Modular Tray KNEE Right: [employer] 01/16/2021 [id number] / Implanted: Qty: 1 on 04/14/2017 by Michael Hernandez MD at [facility] Knee [id number] / [id number] Standard Patella PATELLA Right: [employer] 01/22/2022 [id number] / Implanted: Qty: 1 on 04/14/2017 by Michael Hernandez MD at [facility] Knee [id number] / [id number] Screw Bone Ti 2.7mm Acumed #Co-F2710 - S2 16 Aug 23 SCREW Right: [employer] CO-F2710 / Implanted: Qty: 2 on 08/14/2016 by Biju Middleton at [facility] 2 16 AUG 23 / NA Description: right mcp joint Screw Bone Ti 2.7mm Acumed #Co-F2712 - S2 16 Aug 23 SCREW Right: Hand [employer] CO-F2712 / Implanted: Qty: 1 on 08/14/2016 by Biju Middleton at [facility] 2 16 AUG 23 / NA Description: right mcp joint Screw Bone Ti 2.7mm Acumed #Co-F2708 - Sor Sterlization SCREW Right: Hand [employer] CO-F2708 / Implanted: Qty: 1 on 08/14/2016 by Biju Middleton at [facility] OR STERLIZATION / OR STERILIZATION Description: Load # Screw Bone Ti 2.7mm Acumed #Co-F2706 - [id number] SCREW Right: Hand [employer] CO-F2706 / Implanted: Qty: 1 on 08/14/2016 by Biju Middleton at [facility] N/A / N/A Bone Screw SCREW Right: Knee [employer] 10/27/2026 [id number] / Implanted: Qty: 1 on 04/14/2017 by Michael Hernandez MD at [facility] [id number] / [id number] Bone Screw SCREW Right: Knee [employer] 08/15/2026 [id number] / Implanted: Qty: 1 on 04/14/2017 by Michael Hernandez MD at [facility] [id number] / [id number] Bone Screw SCREW Right: Knee [employer] 10/27/2026 [id number] / Implanted: Qty: 1 on 04/14/2017 by Michael Hernandez MD at [facility] [id number] / [id number] Bone Screw SCREW Right: Knee [employer] 08/21/2025 [id number] / Implanted: Qty: 1 on 04/14/2017 by Michael Hernandez MD at [facility] [id number] / [id number] Modular Finned Stem Stem Right: Knee [employer] 02/12/2027 [id number] / Implanted: Qty: 1 on 04/14/2017 by Michael Hernandez MD at [facility] [id number] / [id number] Cammulated Interference Screw Right: Hand [employer] 11/01/2020 [id number] / Implanted: Qty: 2 on 05/06/2016 by Biju Middleton at [facility] N/A / [id number] Mcp Fusion Plate, Right Right: Hand [employer] [id number] / Implanted: Qty: 1 on 08/14/2016 by Biju Middleton at [facility] 2 16 AUG 23 documented as of this encounter Results Not on filedocumented in this encounter Insurance Payer Benefit Plan / Subscriber ID Effective Phone Address Type Group Dates ANTHONY CRUZ xxxxxxxxx 2015-Srinivasan SANTILLAN Medicaid HEALTHCARE [place] [place] [id number] MANAGED MEDICAID [place], [place]ICA[place] documented as of this encounter
--- OUTSIDE RECORDS SUMMARY | 2019-11-19 05:49 | XMS REPORT | Summary of Care ---
:[address] [facility] Address [address] [place] [address] Care Team Providers Name Role Phone Robert Radford MD Unavailable Unavailable Gorge Hagen DO Primary Care Provider Reason for Referral Radiology Services (Routine) Status Reason Specialty Diagnoses / Referred By Referred To Procedures Contact Contact New Request Diagnostic Diagnoses Hypothyroidism, unspecified type Vahe, Radiology Procedures US HEAD NECK MD Tracey [address] [place] [address] Reason for Visit Reason Comments Diabetes Mellitus II New Patient Encounter Details Date Type Department Care Team Description 03/30/2019 Office Visit [facility] Tracey Montgomery MD [address] [place] [address] Type 2 diabetes mellitus without complication, without long- term current use of insulin (Primary Dx); Diabetes-LC Abraham Asher MBBS [address] [facility] 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 documented as of this encounter (statuses as of 04/11/2019) Resolved Problems Problem Noted Date Resolved Date Type 2 diabetes mellitus 11/26/2013 12/30/2013 documented as of this encounter (statuses as of 04/11/2019) Immunizations Name Administration Dates Next Due Influenza [...] of this encounter Last Filed Vital Signs Vital Sign Reading Time Taken Comments Blood Pressure 115/68 03/30/2019 8:57 AM CDT Pulse 48 03/30/2019 8:57 AM CDT Temperature - - Respiratory Rate - - Oxygen Saturation 97% 03/30/2019 8:57 AM CDT Inhaled Oxygen Concentration - - Weight 100 kg (220 lb 6.4 oz) 03/30/2019 8:57 AM CDT Height - - Body Mass Index 40.31 02/19/2019 6:04 PM CDT documented in this encounter Patient Instructions Patient InstructionsAbraham Asher MBBS - 03/30/2019 9:00 AM CDTPlease follow a diet that has complex carbohydrates and protein Please avoid sugary snacks/food We will check labs today Please take dexamethasone at 11pm tonight Please return to clinic tomorrow for repeat labs Please return to clinic in 3 months documented in this encounter Progress Notes Tracey Cotter MD - 03/30/2019 9:00 AM CDTI saw and evaluated with . I reviewed the note and agree with the findings and the plan of care as documented in the note. Abraham Smith MBBS - 03/30/2019 9:00 AM CDT HPI Patient is a 48 year old /White female who is here today for Diabetes Mellitus Type 2. Patient's diabetes is complicated by atherogenic diet, hyperlipidemia, hypertension , hypothyroidism andobesity. She is also here for follow up of hypothyroidism, thyroid nodules and adrenal nodules Regarding DM: DM was diagnosed >15 years ago . She underwent a CHRISTAL en Y on November 2017 And ~100 lbs since then . She is currently not on any diabetic medication at this time. Was on GLP1, metforminand SGLT-2 in the past. She complains of hypoglycemic episodes for the last 6 months. States she she has had three episodes of hypoglycemia in the last 6 months. Last episode was last week. States theepisodes occur during the day usually afte rthe meal. She denies any overnight hypoglycemia. She states her diet consists of carbs and low protein . Regarding hypothyroidism , she is currently on 50mcg po daily. Complains of sweatiness and heat intolerance. She takes it with all of her medications . She is on biotin . Regarding thyroid nodules, this was detected on CT thorax. . She denies any shortness of breath. Regarding adrenal nodules, she has not had a chemical work up so far. She denies any episodic headaches, palpitations. Obesity,s/p Christal n Y surgery in 11/2017. Takes calcium and vitamin d, biotin and b12. Postmenopausal status - s/p hysterectomy And oophorectomy on may 2013. On 1mg estradiol She complains of leg numbness and cramping . She is scheduled to see Neurology soon. 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 None Recent Ophthalmology Visits None CREATININE Date Value 03/20/2019 0.62 mg/dL 12/26/2014 0.70 MG/DL No results found for: ALBU CHOL Date Value 10/19/2018 148 mg/dL 03/03/2014 170 MG/DL TRIG Date Value 10/19/2018 96 mg/dL 03/03/2014 157 MG/DL LDL CHOL Date Value 10/19/2018 75 mg/dL 03/03/2014 104 MG/DL Diabetes Relevant Medication Classes Last refreshed: 03/30/2019 5:45 PM: Prescribed KACI inhibitor Yes Last refreshed: 03/30/2019 5:45 PM: Prescribed ARBs No Last refreshed: 03/30/2019 5:45 PM: Prescribed statins No Last refreshed: 03/30/2019 5:45 PM: Prescribed antiplatelets No Last refreshed: 03/30/2019 5:45 PM: Prescribed aspirin No Last refreshed: 03/30/2019 5:45 PM: On Fibrates No Current as of: 03/30/2019 5:45 PM Patient's Medications START taking these medications No medications on file CONTINUE taking these medications which have NOT CHANGED CETIRIZINE 10 MG TABLET TAKE 1 TABLET BY MOUTH EVERY DAY CETIRIZINE 10 MG TABLET TAKE 1 TABLET BY MOUTH EVERY DAY DIAZEPAM 5 MG TABLET Take 1 tablet by mouth at bedtime. DICYCLOMINE 20 MG TABLET Take 1 tablet by mouth every 6 (six) hours as needed for Abdominal pain. ESTRADIOL 1 MG TABLET Take 1 tablet by mouth daily. ESZOPICLONE (LUNESTA) 3 MG TABLET Take 3 mg by mouth at bedtime. GABAPENTIN 300 MG CAPSULE TAKE 1 CAPSULE BY MOUTH TWICE A DAY HYDROCORTISONE-PRAMOVINE (PROCTOFOAM HC) RECTAL FOAM Insert 1 Applicator into rectum 2 (two) times daily. HYDROXYZINE 50 MG TABLET TAKE 4 TABLETS ORALLY DAILY DIRECTED LEVOTHYROXINE 50 MCG TABLET Take 1 tablet by mouth every morning. LINACLOTIDE (LINZESS) 290 MCG CAP Take 290 mcg by mouth daily. LISINOPRIL 20 MG TABLET METFORMIN ER 500 MG 24 HR TABLET Take 1 tablet by mouth daily with breakfast. METFORMIN ER 500 MG 24 HR TABLET TAKE 1 TABLET BY MOUTH EVERY DAY WITH BREAKFAST ONDANSETRON 4 MG TABLET Take 2 tablets by mouth every 8 (eight) hours as needed for Nausea and Vomiting (N/V). PANTOPRAZOLE SODIUM (PROTONIX ORAL) Take by mouth. PEG-ELECTROLYTE SOLN 236-22.74-6.74 -5.86 GRAM SOLUTION Take as directed before colonoscopy POLYETHYLENE GLYCOL 3350 (MIRALAX) 17 GRAM POWDER Take 1 Packet by mouth as needed for Constipation. PREGABALIN (LYRICA ORAL) Take by mouth. PROAIR HFA 90 MCG/ACTUATION INHALER Inhale 1 Puff every 4 (four) hours as needed. PROMETHAZINE 25 MG TABLET Take 1 tablet by mouth every 6 (six) hours as needed for Nausea and Vomiting (N/V) or N/V unresponsive to Ondansetron. ROPINIROLE 1 MG TABLET Take 1 mg by mouth every morning. START taking Modified Medications as Prescribed No medications on file STOP taking these medications No medications on file HISTORY Past Medical History: Diagnosis Date Abnormal uterine bleeding Prolonged bleeding Anemia H/O Anxiety Asthma Takes Spiriva PRN Bipolar 1 disorder 11/26/2013 BMI 50.0-59.9, adult Breast disorder left breast biopsy x 2; marker placed Depression Endometriosis Essential hypertension, benign 11/26/2013 GERD (gastroesophageal reflux disease) Hemorrhoids Hypothyroid IBS (irritable bowel syndrome) SISI (iron deficiency anemia) Leiomyoma of uterus 2012 Prolonged Bleeding Morbid obesity PIERRE (obstructive sleep apnea) CPAP at 16 cm H2O Other and unspecified hyperlipidemia 11/26/2013 Diet controlled Pap smear abnormality of cervix Unsure; Hx of BV Restless leg syndrome Right knee pain 04/10/2016 Sciatica Scoliosis Seasonal allergies Superficial thrombophlebitis Type 2 diabetes mellitus without complication 06/14/2015 Urinary incontinence [facility] Past Surgical History: Procedure Laterality Date BREAST BIOPSY BREAST SURGERY Bx and marker placement SECTION x 2 CHOLECYSTECTOMY 06/03/2013 Lap COLONOSCOPY 2012 [facility] GI COLONOSCOPY N/A 02/09/2019 Surgeon: Teodoro Bustillo MD; Location: [facility] Location CYST EXCISION 06/2013 L breast DILATION AND CURETTAGE (SHX) 2011 + novasure ENDOMETRIAL ABLATION 2012 ENDOMETRIAL ABLATION, THERMAL 2012 ESOPHAGOGASTRODUODENOSCOPY N/A 12/24/2018 Surgeon: Leonardo Edouard DO; Location: [facility] Location FINGER ARTHRODESIS Right 08/14/2016 Surgeon: Biju Middleton; Location: [facility] Location HEMORRHOIDECTOMY HYSTERECTOMY 08/2013 FELIPE LAPAROSCOP GASTRIC BYPASS 12/03/2017 LIGAMENT REPAIR Right 08/21/2015 Surgeon: Michael Hernandez MD; [facility] OPEN CARPAL TUNNEL RELEASE Right 08/21/2015 Surgeon: Michael Hernandez MD; Location: [facility] OPEN CARPAL TUNNEL RELEASE Left 04/22/2016 Surgeon: Michael Hernandez MD; Location: [facility] OR Location RADICAL HYSTERECTOMY SALPINGO-OOPHORECTOMY 2012 TOTAL KNEE ARTHROPLASTY Right 04/14/2017 Surgeon: Michael Hernandez MD; Location: [facility] OR Location TUBAL LIGATION 1990 ULNAR COLLATERAL LIGAMENT RECONSTRUCTION (SHX) Right 05/06/2016 Surgeon: Biju Middleton; Location: [facility] Location Family History Problem Relation Age of Onset Hypertension Mother living - average weight Hypertension Father Hypertension Father living - average weight Diabetes Father Pulmonary Father PIERRE Heart Father hx open heart surgery - age 16 Alcohol/Drug Sister half sibling -maternal side - recovering drug addict Heart Sister MVP - drug induced GI Sister hx perforated bowel Blood Disease Sister hx blood clots - due to drug use No Significant Medical Problems Brother 1 living - paternal side Hypertension Maternal Grandmother living Atherosclerosis Maternal Grandmother hx - DVT Lower Extremities Cancer Maternal Grandfather age 74- colon cancer Colon Cancer Maternal Grandfather Cancer Paternal Grandmother colon cancer - age 69 Colon Cancer Paternal Grandmother Great grandmother No Significant Medical Problems Daughter No Significant Medical Problems Son Arthritis NoFHx Asthma NoFHx defects NoFHx Breast Cancer NoFHx Ovarian Cancer NoFHx Uterine Cancer NoFHx Depression NoFHx Genetic NoFHx High cholesterol NoFHx Mental retardation NoFHx Neurological NoFHx Osteoporosis NoFHx Psychiatry NoFHx Other - see comments NoFHx Social History Socioeconomic History Marital status: Spouse name: Not on file Number of children: 2 Years of education: Not on file Highest education level: Not on file Occupational History Occupation: disability Comment: [employer] Social Needs Financial resource strain: Not on file Food insecurity: Worry: Not on file Inability: Not on file Transportation needs: Medical: Not on file Non-medical: Not on file Tobacco Use Smoking status: Former Smoker Packs/day: 1.00 Years: 28.00 Pack years: 28.00 Types: Cigarettes Last attempt to quit: 05/28/2013 Years since quittin.8 Smokeless tobacco: Never Used Substance and Sexual Activity Alcohol use: Yes Alcohol/week: 0.0 oz Comment: Rare Drug use: No Sexual activity: Yes Partners: Male control/protection: Surgical Comment: hysterectomy / BTL Lifestyle Physical activity: Days per week: Not on file Minutes per session: Not on file Stress: Not on file Relationships Social connections: Talks on phone: Not on file Gets together: Not on file Attends episcopalian service: Not on file Active member of club or organization: Not on file Attends meetings of clubs or organizations: Not on file Relationship status: Not on file Intimate partner violence: Fear of current or ex partner: Not on file Emotionally abused: Not on file Physically abused: Not on file Forced sexual activity: Not on file Other Topics Concern Service Not Asked Blood Transfusions Not Asked Caffeine Concern Not Asked Occupational Exposure Not Asked Hobby Hazards Not Asked Sleep Concern Not Asked Stress Concern Not Asked Weight Concern Not Asked Special Diet Not Asked Back Care Not Asked Exercise Not Asked Bike Helmet Not Asked Seat Belt Yes Self-Exams Yes Social History Narrative Single,currently engaged living in [place] with fiance and Grandmother. Lives in apartment [facility]. Patient is disabled. Sikh Preference: Voodoo Denies Domestic abuse within the home REVIEW OF SYSTEMS Constitutional: + fatigue Eyes: denies blurry vision, denies diplopia and denies pain. Neck: denies pain, denies swollen glands Cardiovascular: denies chest pain , denies irregular pulse and denies palpitations. Respiratory: denies dyspnea on exertion and denies shortness of breath. Gastrointestinal: denies abdominal pain, denies constipation and denies diarrhea. Genitourinary: denies burning and denies dysuria. Musculoskeletal: denies back pain, denies muscle pain and denies weakness. Skin: denies dry skin and denies hair changes. Neuro: denies numbness , denies tingling and denies tremor. Psych: stress from recent weight gain Endocrine: hypoglycemia; heat intolerance +. PHYSICAL EXAM BP 115/68 (BP Location: Left arm, Patient Position: Sitting, BP CUFF SIZE: Adult Large) | Pulse (!)48 | Wt 220 lb 6.4 oz (100 kg) | LMP 08/28/2013 | SpO2 97% | BMI 40.31 kg/m General: obese Skin: skin color and turgor are normal Head: normocephalic, no masses, lesions, tenderness or abnormalities. Eyes: anicteric sclera, pupils are equally round and reactive to light. Neck: +acanthosis nigricans Thyroid: normal size and consistency to palaption Lungs: good diaphragmatic excursion, lungs clear to auscultation bilaterally. Heart: regular rate and rhythm, no murmurs, gallops or rubs. Abdomen: abdomen soft, non-tender, normal active bowel sounds, + obese. Neuro: unremarkable without focal findings. Extremities/Musculoskeletal: no cyanosis, no edema . Sensory exam of the foot is normal. Monofilament exam with sensation Right: 5/5 , Left: 5/5. Lesions and ulcers absent. Peripheral pulses present 2+. Labs: Results for EVA AGUILAR ( ) as of 03/30/2019 18:06 Ref. Range 03/30/2019 00:00 POCT HBA1C Latest Ref Range: 4 - 6 % 5.6 ASSESSMENT/PLAN 1. Hypoglycemia: Comment: Hypoglycemia appears post prandial . Kylie reactive hypoglycmeia. This is commonly seen after gastric bypass surgery and after eating high carb meal. We thus advised patient to eat more complex carbs and increase protein in his diet. We also discussed starting acarbose - this inhibits carbohydrate absorption but we will defer it today. Plan: Please follow a diet that has complex carbohydrates and protein Please avoid sugary snacks/food 2.Prediabetes: Comment: A1c is 5.6%. Not on medications . Advised to hold medications for now 3. Hypothyroidism, unspecified type Comment: complains of heat interolerance and sweating . This could be due to post menopausal symptoms or hyperthyroidism. Will check tfts today Plan: TFTS today Continue levothyroxine 50mcg po daily 4. Dyslipidemia Comment: last lipid panel is wnl. 5. Morbid obesity: Comment: s/p Garstric bypass in 11/[address] [facility] and lost 100lbs.Vit D level is normal . Plan: Continue vitamin d , MVT 6. Thyroid nodule Comment: thyroid nodules noted on ct thorax. Will order thyroid US Plan: Thyroid us 7. B/l adrenal nodules: Comment: noted to have adrenal nodules <[address] abdomen. No chemical workup so far. Will sendlabs today Plan: Plasma metanephrines Renin Aldosterone level 1mg dexamethasone level- will check cortisol levels tomorrow D/w Dr Vahe Asher MD PGY 5 ENDOCRINE FELLOW [phone] Mic interiano - 03/30/2019 9:00 AM CDT Eva Aguilar is a 48 year old female Chief Complaint Patient presents with Diabetes Mellitus II New Patient documented in this encounter Plan of Treatment Date Type Specialty Care Team Description 04/13/2019 Appointment Radiology Tracey Cotter MD [address] [place] [address] [phone] 05/04/2019 Office Visit Neurology Kirill Arango MD [address] [place] [phone] 05/05/2019 Office Visit Obstetrics & Gynecology Ileana Cordova MD [address] [place] [address] [address] [place], [place] [id number] 05/06/2019 Office Visit Internal Medicine Bernice Arzate MD [address] [place] [address] [phone] 06/03/2019 Office Visit Gastroenterology Jaciel Boucher MD [address] [place] [address]. RT527 [place] [phone] 06/09/2019 Office Visit Endocrinology Diabetes & Ralph, Sayda, CROP GRAIN OR LIVESTOCK FARMER Metabolism [address] [place] [address] [phone] Name Type Priority Associated Diagnoses Order Schedule US HEAD NECK IMAGING Routine Hypothyroidism, unspecified Expected: 2018, type Expires: 04/29/2019 Health Maintenance Due Date Last Done Comments [...] of this encounter Implants Implanted Type Area Remote Operations Producer Device Shelf Model / Identifier Expiration Serial / Lot Date Dbm Sonny Maxxeus .5cc Cts #[id number] - Sn/A BONE Right: Community Tissue 03/07/2018 / Implanted: Qty: 1 on 08/14/2016 by Biju Middleton at [facility] N/A / [id number] Cement CEMENT Right: Sterling 08/07/2018 [id number] / Implanted: Qty: 1 on 04/14/2017 by Michael Hernandez MD at [facility] Knee [id number] / [id number] Cr Tibial Bearing KNEE Right: Biomet 02/18/2022 [id number] / Implanted: Qty: 1 on 04/14/2017 by Michael Hernandez MD at [facility] Knee [id number] / [id number] Cr Femoral Right KNEE Right: Biomet 03/17/2027 [id number] / Implanted: Qty: 1 on 04/14/2017 by Michael Hernandez MD at [facility] Knee [id number] / [id number] Primary Tibial Modular Tray KNEE Right: Biomet 01/16/2021 [id number] / Implanted: Qty: 1 on 04/14/2017 by Michael Hernandez MD at [facility] Knee [id number] / [id number] Standard Patella PATELLA Right: Biomet 01/22/2022 [id number] / Implanted: Qty: 1 on 04/14/2017 by Michael Hernandez MD at [facility] Knee [id number] / [id number] Screw Bone Ti 2.7mm Acumed #Co-[id number] - S2 Aug 23 SCREW Right: [employer] [id number] / Implanted: Qty: 2 on 08/14/2016 by Biju Middleton at [facility] Hand 2 AUG 23 / NA Description: right mcp joint Screw Bone Ti 2.7mm Acumed #Co-F2712 - S2 Aug 23 SCREW Right: Hand [employer] [id number] / Implanted: Qty: 1 on 08/14/2016 by Biju Middleton at [facility] 2 16 AUG 23 / NA Description: right mcp joint Screw Bone Ti 2.7mm Acumed #Co-F2708 - Sor Sterlization SCREW Right: Hand [employer] [id number] / Implanted: Qty: 1 on 08/14/2016 by Biju Middleton at [facility] OR STERLIZATION / OR STERILIZATION Description: Load # Screw Bone Ti 2.7mm Acumed #Co-F2706 - [id number] SCREW Right: Hand [employer] [id number] / Implanted: Qty: 1 on 08/14/2016 by Biju Middleton at [facility] N/A / N/A Bone Screw SCREW Right: Knee [employer]omet 10/27/2026 [id number] / Implanted: Qty: 1 on 04/14/2017 by Michael Hernandez MD at [facility] [id number] / [id number] Bone Screw SCREW Right: Knee [employer]omet 08/15/2026 [id number] / Implanted: Qty: 1 on 04/14/2017 by Michael Hernandez MD at [facility] [id number] / [id number] Bone Screw SCREW Right: Knee [employer] 10/27/2026 [id number] / Implanted: Qty: 1 on 04/14/2017 by Michael Hernandez MD at [facility] [id number] / [id number] Bone Screw SCREW Right: Knee [employer]omet 08/21/2025 [id number] / Implanted: Qty: 1 on 04/14/2017 by Michael Hernandez MD at [facility] [id number] / [id number] Modular Finned Stem Stem Right: Knee [employer]omet 02/12/2027 [id number] / Implanted: Qty: 1 on 04/14/2017 by Michael Hernandez MD at [facility] [id number] / [id number] Cammulated Interference Screw Right: Hand [employer]omet 11/01/2020 [id number] / Implanted: Qty: 2 on 05/06/2016 by Bjiu Middleton at [facility] N/A / [id number] Mcp Fusion Plate, Right Right: Hand [employer] [id number] / Implanted: Qty: 1 on 08/14/2016 by Biju Middleton at [facility] 2 AUG 23 documented as of this encounter Procedures Procedure Name Priority Date/Time Associated Diagnosis Comments VITAMIN D, 25-OH Routine 03/30/2019 10:52 Type 2 diabetes Results for this AM CDT mellitus without procedure are in complication, the results without long-term section. current use of insulin METANEPHRINES, Routine 03/30/2019 10:52 Adrenal nodule Results for this PLASMA AM CDT procedure are in the results section. THYROID STIMULATING Routine 03/30/2019 10:52 Hypothyroidism, Results for this HORMONE AM CDT unspecified type procedure are in the results section. FREE T4 Routine 03/30/2019 10:52 Hypothyroidism, Results for this AM CDT unspecified type procedure are in the results section. RENIN ACTIVITY Routine 03/30/2019 10:52 Adrenal nodule Results for this AM CDT procedure are in the results section. ALDOSTERONE, SERUM Routine 03/30/2019 10:52 Adrenal nodule Results for this AM CDT procedure are in the results section. POCT HEMOGLOBIN A1C Routine 03/30/2019 Type 2 diabetes Results for this TEST mellitus without procedure are in complication, the results without long-term section. current use of insulin documented in this encounter Results CORTISOL AM (03/31/2019 7:19 AM CDT) MEGAN AM 1.1 (L) 4.5 - 23.0 ug/dL [facility] Specimen Blood Narrative Performed At [facility] has been reported to cause a positive bias, interpret [facility] results relative to patient's use of biotin. Performing Organization Address City/State/Zipcode Phone Number [facility] CLIA: [id number], [address] [place] [address] [facility] CORTISOL AM (03/30/2019 10:52 AM CDT) MEGAN AM 4.0 (L) 4.5 - 23.0 ug/dL [facility] Specimen Blood Narrative Performed At [facility] has been reported to cause a positive bias, interpret [facility] results relative to patient's use of biotin. Performing Organization Address City/State/Zipcode Phone Number [facility] CLIA: [id number], [address] [place] [address] [phone] [facility] METANEPHRINES, PLASMA (03/30/2019 10:52 AM CDT) METANEPH <0.10 0.00 - 0.49 [facility] nmol/L NORMETNEPH 0.35 0.00 - 0.89 [facility] nmol/L METAPF INT See Note [facility] Comment: INTERPRETIVE INFORMATION: Metanephrines, Plasma (Free) This test is useful in the detection of pheochromocytoma, a rare neuroendocrine tumor. The majority of patients with pheochromocytoma have a plasma normetanephrine concentration in excess of 2.2 nmol/L and/or a metanephrine concentration in excess of 1.1 nmol/L. Increased concentrations of these analytes serve as confirmation for diagnosis. Patients with essential hypertension and plasma concentrations of normetanephrine below 0.9 nmol/L and a metanephrine concentration below 0.5 nmol/L, can be excluded from further testing. If clinical suspicion remains, repeat testing or testing for metanephrines in a 24-hr. urine specimen should be considered. See Compliance Statement B: [facility] Performed by [facility], [address] [place] [address] [id number] [email or web address], Kiko Gonzalez MD, Lab. Director Specimen Blood Performing Organization Address City/State/Zipcode Phone Number [facility] [address] [place] [address] [facility] ACTIVITY (03/30/2019 10:52 AM CDT) RENIN 0.7 ng/mL/hr [facility] Comment: INTERPRETIVE INFORMATION: Renin Activity Adult, Normal sodium diet: Supine ................. 0.2-1.6 ng/mL/hr Upright ................ 0.5-4.0 ng/mL/hr Children, Normal sodium diet, Supine: (1-7 days) ..... 2.0-35.0 ng/mL/hr Cord blood ............. 4.0-32.0 ng/mL/hr 1-12 mos ............... 2.4-37.0 ng/mL/hr 13 mos-3 yrs ........... 1.7-11.2 ng/mL/hr 4-5 yrs ................ 1.0- 6.5 ng/mL/hr 6-10 yrs ............... 0.5- 5.9 ng/mL/hr 11-15 yrs .............. 0.5- 3.3 ng/mL/hr Children, normal sodium diet, Upright: 0-3 yrs ................ Not Available 4-5 yrs ................ Less than or equal to 15 ng/mL/hr 6-10 yrs ............... Less than or equal to 17 ng/mL/hr 11-15 yrs .............. Less than or equal to 16 ng/mL/hr Plasma renin activity measures enzyme ability to convert angiotensinogen to angiotensin I and is limited by the availability of angiotensinogen. Plasma renin activity is not an accurate indicator of enzyme activity when angiotensinogen is decreased. See Compliance Statement D: [email or web address] Performed by [facility] [id number] [email or web address], Kiko Gonzalez MD, Lab. Director Specimen Blood Performing Organization Address City/State/Zipcode Phone Number [address] [phone] ALDOSTERONE, SERUM (03/30/2019 10:52 AM CDT) [facility] ALDOST 6.5 ng/dL [facility] Comment: INTERPRETIVE INFORMATION: Aldosterone, Serum Reference intervals for age 15 and older: Upright .........4.0 - 31.0 ng/dL Supine ..........Less than or equal to 16.0 ng/dL Unspecified .....Less than or equal to 31.0 ng/dL Normal serum levels of aldosterone are dependent on the sodium intake and whether the patient is upright or supine. High sodium intake will tend to suppress serum aldosterone, whereas low sodium intake will elevate serum aldosterone. The reference intervals for serum aldosterone are based on normal sodium intake. Access complete set of age- and/or gender-specific reference intervals for this test in the [facility] Directory ([facility]). Performed by [facility], [address] [place] [address] [email or web address], Kiko Gonzalez MD, Lab. Director Specimen Blood Performing Organization Address City/[facility]/Zipcode Phone Number [facility] [address] [place] [address] VITAMIN D, 25-OH (03/30/2019 10:52 AM CDT) VIT D 25OH 30 25 - 80 ng/mL [facility] 25-Hydroxy D3 30.1 ng/mL [facility] 25-Hydroxy D2 <2.5 ng/mL [facility] Specimen Blood Narrative Performed At Test developed and characteristics determined by [facility] Laboratory Services. Performing Organization Address City/State/Zipcode Phone Number [facility] CLIA: [id number], [address] [place] [address] [facility] T4 FREE (03/30/2019 10:52 AM CDT) Pathologist [facility] FREE T4 1.32 0.78 - 2.20 ng/dL: [facility] Specimen Blood Performing Organization Address City/State/Zipcode Phone Number [facility] CLIA: [id number], [address] [place] [address] [facility] THYROID STIMULATING HORMONE (03/30/2019 10:52 AM CDT) TSH 1.28Comment: Biotin 0.45 - 4.70 [facility] has been reported mIU/L [facility] to cause a negative CAMPUS bias, interpret results relative to patient's use of biotin. Specimen Blood Performing Organization Address City/State/Zipcode Phone Number [facility] CLIA: [id number], [address] [place] [address] [facility] POCT HEMOGLOBIN A1C TEST (03/30/2019) POCT HBA1C 5.6 4 - 6 % Specimen Blood - CAPILLARY documented in this encounter Visit Diagnoses Diagnosis Type 2 diabetes mellitus without complication, without long-term current use of insulin - Primary Adrenal nodule Benign neoplasm of adrenal gland Hypothyroidism, unspecified type documented in this encounter Insurance Payer Benefit Plan / Subscriber ID Effective Phone Address Type Group Dates ANTHONY CRUZ xxxxxxxxx 2015-Srinivasan [place] [id number] MANAGED MEDICAID [place], [place] documented as of this encounter"
--- OUTSIDE RECORDS SUMMARY | 2019-11-19 05:50 | XMS REPORT | Summary of Care ---
:1970 Author Organization [facility] Address [address] [place] [address] Care Team Providers Name Role Phone Robert Radford MD Unavailable Unavailable Gorge Hagen DO Primary Care Provider Reason for Visit Reason Comments Swallowing Problem Encounter Details Date Type Department Care Team Description 04/13/2019 Nurse Triage [facility] Otilia Hoffmann RN Swallowing Problem [address] [place] [phone] Allergies Active Allergy Reactions Severity Noted Date [...] as of this encounter (statuses as of 04/13/2019) Medications Medication Sig Dispensed Refills Start Date [...] as of this encounter (statuses as of 04/13/2019) Active Problems Problem Noted Date Obesity (BMI [...] mellitus without complications Overview: ICD10 Diagnosis Term Life Coach Utility documented as of this encounter (statuses as of 04/13/2019) Resolved Problems Problem Noted Date Resolved Date Type 2 diabetes mellitus 11/26/2013 12/30/2013 documented as of this encounter (statuses as of 04/13/2019) Immunizations Name Administration Dates Next Due Influenza [...] Treatment Date Type Specialty Care Team Description 04/15/2019 Appointment Radiology Tracey Cotter MD [address] [place] [address] [phone] 05/04/2019 Office Visit Neurology Kirill Arango MD [address] [place] [phone] 05/05/2019 Office Visit Obstetrics & Gynecology Ileana Cordova MD [address] [place] [address] [address] [phone] 05/06/2019 Office Visit Internal Medicine Bernice Arzate MD [address] [place] [phone] 06/03/2019 Office Visit Gastroenterology Jaciel Boucher MD [address] [place] [address]. [address] [place] [phone] 06/09/2019 Office Visit Endocrinology Diabetes & Sayda Rosas, ROTARY SHEAR CUTTER Metabolism [address] [place] [address] [phone] Health Maintenance Due Date Last Done Comments [...] of this encounter Implants Implanted Type Area Oncology Specialist Device Shelf Model / Identifier Expiration Serial / Lot Date Dbm Sonny Maxxeus .5cc Cts #2014-40 - Sn/A BONE Right: Community Tissue 03/07/2018 / Implanted: Qty: 1 on 08/14/2016 by Biju Middleton at [facility] N/A / [id number] Cement CEMENT Right: Yvonne 08/07/2018 6195-1-001 / Implanted: Qty: 1 on 04/14/2017 by Michael Hernandez MD at [facility] Knee [id number] / [id number] Cr Tibial Bearing KNEE Right: Biomet 02/18/2022 [id number] / Implanted: Qty: 1 on 04/14/2017 by Michael Hernandez MD at [facility] Knee [id number] / [id number] Cr Femoral Right KNEE Right: Biomet 03/17/2027 [id number] / Implanted: Qty: 1 on 04/14/2017 by Michael Hernandez MD at [facility] Knee [id number] / [id number] Primary Tibial Modular Tray KNEE Right: Biomet 01/16/2021 [id number] / Implanted: Qty: 1 on 04/14/2017 by Michael Hernandez MD at [facility] Knee [id number] / [id number] Standard Patella PATELLA Right: Biomet 01/22/2022 [id number] / Implanted: Qty: 1 on 04/14/2017 by Michael Hernandez MD at [facility] Knee [id number] / [id number] Screw Bone Ti 2.7mm Acumed #Co-F2710 - S2 16 Aug 23 SCREW Right: [employer] CO-[id number] / Implanted: Qty: 2 on 08/14/2016 by Biju Middleton at [facility] 2 16 AUG 23 / NA Description: right mcp joint Screw Bone Ti 2.7mm Acumed #Co-F2712 - S2 16 Aug 23 SCREW Right: Hand [employer] CO-F2712 / Implanted: Qty: 1 on 08/14/2016 by Biju Middleton at [facility] 2 16 AUG 23 / NA Description: right mcp joint Screw Bone Ti 2.7mm Acumed #Co-F2708 - Sor Sterlization SCREW Right: Hand [employer] CO-F2708 / Implanted: Qty: 1 on 08/14/2016 by Biju Middleton at [facility] OR STERLIZATION / OR STERILIZATION Description: Load # Screw Bone Ti 2.7mm Acumed #Co-F2706 - [id number] SCREW Right: Hand [employer] CO-F2706 / Implanted: Qty: 1 on 08/14/2016 by Biju Middleton at [facility] N/A / N/A Bone Screw SCREW Right: Knee [employer]omet 10/27/2026 [id number] / Implanted: Qty: 1 on 04/14/2017 by Michael Hernandez MD at [facility] [id number] / [id number] Bone Screw SCREW Right: Knee [employer]omet 08/15/2026 [id number] / Implanted: Qty: 1 on 04/14/2017 by Michael Hernandez MD at [facility] [id number] / [id number] Bone Screw SCREW Right: Knee [employer]omet 10/27/2026 [id number] / Implanted: Qty: 1 on 04/14/2017 by Michael Hernandez MD at [facility] [id number] / [id number] Bone Screw SCREW Right: Knee [employer]omet 08/21/2025 [id number] / Implanted: Qty: 1 on 04/14/2017 by Michael Hernandez MD at [facility] [id number] / [id number] Modular Finned Stem Stem Right: Knee [employer]omet 02/12/2027 [id number] / Implanted: Qty: 1 on 04/14/2017 by Michael Hernandez MD at [facility] [id number] / [id number] Cammulated Interference Screw Right: Hand [employer]omet 11/01/2020 [id number] / Implanted: Qty: 2 on 05/06/2016 by Biju Middleton at [facility] N/A / [id number] Mcp Fusion Plate, Right Right: Hand [employer] PL-MCPR / Implanted: Qty: 1 on 08/14/2016 by Biju Middleton at [facility] 2 16 AUG 23 documented as of this encounter Results Not on filedocumented in this encounter Insurance Payer Benefit Plan / Subscriber ID Effective Phone Address Type Group Dates ANTHONY CRUZ xxxxxxxxx 2015-Srinivasan SANTILL[place] Medicaid HEALTHCARE [place] [id number] MANAGED MEDICAID [place] documented as of this encounter
--- OUTSIDE RECORDS SUMMARY | 2019-11-19 05:50 | XMS REPORT | Summary of Care ---
:1970 Author Organization [facility] Address [address] [place] [address] Care Team Providers Name Role Phone Robert Radford MD Unavailable Unavailable Margo Hagenit Primary Care Provider Reason for Referral Radiology Services (Routine) Status Reason Specialty Diagnoses / Referred By Referred To Procedures Contact Contact Closed Diagnostic Diagnoses Hypothyroidism, unspecified type [place], Radiology Procedures US HEAD NECK MD Tracey [address] [place] [address] Radiology Services (Routine) Status Reason Specialty Diagnoses / Referred By Referred To Procedures Contact Contact Closed Diagnostic Diagnoses Hypothyroidism, unspecified type [place], Radiology Procedures US HEAD NECK MD Tracey [address] [place] [address] Reason for Visit Radiology Services (Routine) Status Reason Specialty Diagnoses / Referred By Referred To Procedures Contact Contact Closed Diagnostic Diagnoses Hypothyroidism, unspecified type [place], Radiology Procedures US HEAD NECK MD Tracey [address] [place] [address] Encounter Details Date Type Department Care Team Description 04/15/2019 Hospital Encounter [facility] Diagnostic [place], Tracey, Arrived Imaging, [facility] [address] [facility]. [address] [place] [phone] [facility] [phone] [place] [address] [phone] Allergies Active Allergy Reactions Severity Noted Date [...] as of this encounter (statuses as of 04/16/2019) Medications Medication Sig Dispensed Refills Start Date [...] as of this encounter (statuses as of 04/16/2019) Active Problems Problem Noted Date Obesity (BMI [...] mellitus without complications Overview: ICD10 Diagnosis Term Salesperson Yard Goods Utility documented as of this encounter (statuses as of 04/16/2019) Resolved Problems Problem Noted Date Resolved Date Type 2 diabetes mellitus 11/26/2013 12/30/2013 documented as of this encounter (statuses as of 04/16/2019) Immunizations Name Administration Dates Next Due Influenza [...] Treatment Date Type Specialty Care Team Description 04/26/2019 Office Visit Neurology Kirill Arango MD [address] [place] [phone] 05/05/2019 Office Visit Obstetrics & Gynecology Ileana Cordova MD [address] [place] [address] [place] [address] [phone] 05/06/2019 Office Visit Internal Medicine Bernice Arzate MD [address] [place] [phone] 06/03/2019 Office Visit Gastroenterology Jaciel Boucher MD [address] [place] [address]. [address] [place] [phone] 06/09/2019 Office Visit Endocrinology Diabetes & Ralph, Sayda, DRAFTER STRUCTURAL Metabolism [address] [place], [place] [phone] Health Maintenance Due Date Last Done Comments [...] of this encounter Implants Implanted Type Area Rn Immunology Device Shelf Model / Identifier Expiration Serial / Lot Date Dbm Sonny Maxxeus .5cc Cts #2014-40 - Sn/A BONE Right: Community Tissue 03/07/2018 / Implanted: Qty: 1 on 08/14/2016 by Biju Middleton at [facility] N/A / [id number] Cement CEMENT Right: Yvonne 08/07/2018 6195-1-001 / Implanted: Qty: 1 on 04/14/2017 by Michael Hernandez MD at [facility] Knee [id number] / [id number] Cr Tibial Bearing KNEE Right: Biomet 02/18/2022 [id number] / Implanted: Qty: 1 on 04/14/2017 by Michael Hernandez MD at [facility] Knee [id number] / [id number] Cr Femoral Right KNEE Right: Biomet 03/17/2027 [id number] / Implanted: Qty: 1 on 04/14/2017 by Michael Hernandez MD at [facility] Knee [id number] / [id number] Primary Tibial Modular Tray KNEE Right: [employer] 01/16/2021 [id number] / Implanted: Qty: 1 on 04/14/2017 by Michael Hernandez MD at [facility] Knee [id number] / [id number] Standard Patella PATELLA Right: Biomet 01/22/2022 [id number] / Implanted: Qty: 1 on 04/14/2017 by Michael Hernandez MD at [facility] Knee [id number] / [id number] Screw Bone Ti 2.7mm Acumed #Co-F2710 - S2 Aug 23 SCREW Right: [employer] CO-F2710 / Implanted: Qty: 2 on 08/14/2016 by Biju Middleton at [facility] 2 16 AUG 23 / NA Description: right mcp joint Screw Bone Ti 2.7mm Acumed #Co-F2712 - S2 Aug 23 SCREW Right: Hand [employer] CO-F2712 / Implanted: Qty: 1 on 08/14/2016 by Biju Middleton at [facility] 2 16 AUG 23 / NA Description: right mcp joint Screw Bone Ti 2.7mm Acumed #Co-F2708 - Sor Sterlization SCREW Right: Hand [employer] CO-F2708 / Implanted: Qty: 1 on 08/14/2016 by Biju Middleton at [facility] OR STERLIZATION / OR STERILIZATION Description: Load #[id number] Screw Bone Ti 2.7mm Acumed #Co-F2706 - [id number] SCREW Right: Hand [employer] CO-F2706 / Implanted: Qty: 1 on 08/14/2016 by Biju Middleton at [facility] N/A / N/A Bone Screw SCREW Right: Knee [employer]omet 10/27/2026 [id number] / Implanted: Qty: 1 on 04/14/2017 by Michael Hernandez MD at [facility] [id number] / [id number] Bone Screw SCREW Right: Knee [employer]omet 08/15/2026 [id number] / Implanted: Qty: 1 on 04/14/2017 by Michael Hernandez MD at [facility] [id number] / [id number] Bone Screw SCREW Right: Knee [employer]omet 10/27/2026 [id number] / Implanted: Qty: 1 on 04/14/2017 by Michael Hernandez MD at [facility] [id number] / [id number] Bone Screw SCREW Right: Knee [employer]omet 08/21/2025 [id number] / Implanted: Qty: 1 on 04/14/2017 by Michael Hernandez MD at [facility] [id number] / [id number] Modular Finned Stem Stem Right: Knee [employer]omet 02/12/2027 [id number] / Implanted: Qty: 1 on 04/14/2017 by Michael Hernandez MD at [facility] [id number] / [id number] Cammulated Interference Screw Right: Hand [employer]omet 11/01/2020 [id number] / Implanted: Qty: 2 on 05/06/2016 by Biju Middleton at [facility] N/A / [id number] Mcp Fusion Plate, Right Right: Hand [employer] PL-MCPR / Implanted: Qty: 1 on 08/14/2016 by Biju Middleton at [facility] 2 16 16/ 5 DEC 16 / NA documented as of this encounter Procedures Procedure Name Priority Date/Time Associated Diagnosis Comments US HEAD NECK Routine 04/15/2019 8:00 AM Hypothyroidism, Results for this CDT unspecified type procedure are in the results section. documented in this encounter Results US HEAD NECK (04/15/2019 8:00 AM CDT) Specimen Impressions Performed At PACS/VR/DOSE Subcentimeter predominantly cystic nodules in both lobes of the thyroid gland. These do not meet the ACR criteria for follow-up --- ----- ACR TI-RADS recommendations *TR5 (?7 points) -FNA if ? 1cm, follow-up if 0.5 -0.9 cm every year for 5 years *TR4 (4-6 points) -FNA if ? 1.5cm, follow-up if 1 -1.4 cm in 1, 2, 3 and 5 years *TR3 (3 points)-FNA if ? 2.5cm, follow-up if 1.5 -2.4 cm in 1, 3 and 5 years *TR2 (2 points) & TR1 (0 points) -No FNA or follow-up Narrative Performed At *THYROID ULTRASOUND ACR TI-RADS PACS/VR/DOSE INDICATION: thyroid nodules TECHNIQUE: Ultrasound examination of the thyroid and adjacent soft tissues was performed. FINDINGS: The thyroid gland is normal in size with homogeneousechotexture and normalcolor Doppler flow. The isthmus measures 0.3 cm. The right thyroid lobe measures 5.0 x 1.4 x 1.6 cm with volume of 5.4 mL. . The left thyroid lobe measures 4.2 x 1.5 x 1.4 cm with volume of 4.4 mL.. Estimated total number of nodules ?1cm: 0 . A small 5 mm oval predominantly cystic nodule is present in the inferior pole of the right lobe. A similar predominantly cystic nodule is present in the upper pole of the left lobe of the thyroid gland. LYMPH NODES: Fatty replaced lymph nodes are seen in the neck,likely reactive. Procedure Note [facility], Radiant Results Inft User - 04/15/2019 8:09 AM CDT *THYROID ULTRASOUND ACR TI-RADS INDICATION: thyroid nodules TECHNIQUE: Ultrasound examination of the thyroid and adjacent soft tissues was performed. FINDINGS: The thyroid gland is normal in size with homogeneous echotexture and normal color Doppler flow. The isthmus measures 0.3 cm. The right thyroid lobe measures 5.0 x 1.4 x 1.6 cm with volume of 5.4 mL. . The left thyroid lobe measures 4.2 x 1.5 x 1.4 cm with volume of 4.4 mL.. Estimated total number of nodules ?1cm: 0 . A small 5 mm oval predominantly cystic nodule is present in the inferior pole of the right lobe. A similar predominantly cystic nodule is present in the upper pole of the left lobe of the thyroid gland. LYMPH NODES: Fatty replaced lymph nodes are seen in the neck,likely reactive. IMPRESSION Subcentimeter predominantly cystic nodules in both lobes of the thyroid gland. These do not meet the ACR criteria for follow-up ----- ACR TI-RADS recommendations * TR5 (?7 points) -FNA if ? 1cm, follow-up if 0.5 -0.9 cm every year for 5 years * TR4 (4-6 points) -FNA if ? 1.5cm, follow-up if 1 -1.4 cm in 1, 2, 3 and 5 years * TR3 (3 points)-FNA if ? 2.5cm, follow-up if 1.5 -2.4 cm in 1, 3 and 5 years * TR2 (2 points) & TR1 (0 points) -No FNA or follow-up Performing Organization Address City/State/Zipcode Phone Number PACS/VR/DOSE documented in this encounter Visit Diagnoses Diagnosis Hypothyroidism, unspecified type documented in this encounter Insurance Payer Benefit Plan / Subscriber ID Effective Phone Address Type Group Dates ANTHONY CRUZ xxxxxxxxx 2015-Srinivasan [place]ILL[place] Medicaid [place] [id number] MA[place]GED MEDICA[place] documented as of this encounter
--- OUTSIDE RECORDS SUMMARY | 2019-11-19 05:50 | XMS REPORT | Summary of Care ---
:1970 Author Organization [facility] Address [address] [place] [address] Care Team Providers Name Role Phone Robert Radford MD Unavailable Unavailable Gorge Hagen DO Primary Care Provider Encounter Details Date Type Department Care Team Description 04/26/2019 Letter (Out) [facility] Neurology, Kirill Arango MD [place] [phone] [place] [phone] Allergies Active Allergy Reactions Severity Noted Date [...] as of this encounter (statuses as of 04/26/2019) Medications Medication Sig Dispensed Refills Start Date [...] as of this encounter (statuses as of 04/26/2019) Active Problems Problem Noted Date Obesity (BMI [...] mellitus without complications Overview: ICD10 Diagnosis Term Physiotherapist'S Assistant Utility documented as of this encounter (statuses as of 04/26/2019) Resolved Problems Problem Noted Date Resolved Date Type 2 diabetes mellitus 11/26/2013 12/30/2013 documented as of this encounter (statuses as of 04/26/2019) Immunizations Name Administration Dates Next Due Influenza [...] 04/26/2019 Office Visit Neurology Kirill Arango MD [address] [place] [phone] 05/05/2019 Office Visit Obstetrics & Gynecology Ileana Cordova MD [address] [place] [address] [phone] 05/06/2019 Office Visit Internal Medicine Bernice Arzate MD [address] [place] [phone] 06/03/2019 Office Visit Gastroenterology Jaciel Boucher MD [address] [place] [address]. [address] [place] [phone] 06/09/2019 Office Visit Endocrinology Diabetes & Sayda Rosas, STOREPERSON Metabolism [address] [place], [place] [phone] Health Maintenance Due Date Last Done Comments PNEUMOCOCCAL 0-64 YEARS COMBINED 1975 SERIES (1 of 1 - PPSV23) URINE MICROALBUMIN 1979 EYE EXAM 01/15/2017 01/16/2016 INFLUENZA VACCINE (#1) 2019 06/21/2017 MAMMOGRAM 05/15/2019 05/15/2018, 03/21/2017, 04/17/2016, Additional history [...] of this encounter Implants Implanted Type Area Chief Security And Safety Officer Device Shelf Model / Identifier Expiration Serial / Lot Date Dbm Sonny Maxxeus .5cc Cts #2014-40 - Sn/A BONE Right: Community Tissue 03/07/2018 / Implanted: Qty: 1 on 08/14/2016 by Biju Middleton at [facility] AT [facility] N/A / [id number] Cement CEMENT Right: Pitts 08/07/2018 6195-1-001 / Implanted: Qty: 1 on 04/14/2017 by Michael Hernandze MD at [facility] Knee [id number] / [id number] Cr Tibial Bearing KNEE Right: Biomet 02/18/2022 [id number] / Implanted: Qty: 1 on 04/14/2017 by Michael Hernandez MD at [facility] Knee [id number] / [id number] Cr Femoral Right KNEE Right: Biomet 03/17/2027 [id number] / Implanted: Qty: 1 on 04/14/2017 by Michael Hernandez MD at [facility] Knee [id number] / [id number] Primary Tibial Modular Tray KNEE Right: Biomet 01/16/2021 [id number] / Implanted: Qty: 1 on 04/14/2017 by Michael Hernandez MD at [facility] Knee [id number] / [id number] Standard Patella PATELLA Right: Biomet 01/22/2022 [id number] / Implanted: Qty: 1 on 04/14/2017 by Michael Hernandez MD at [facility] Knee [id number] / [id number] Screw Bone Ti 2.7mm Acumed #Co-F2710 - S2 Aug 23 SCREW Right: [employer] CO-F2710 / Implanted: Qty: 2 on 08/14/2016 by Biju Middleton at [facility] AT [facility] 2 AUG 23 / NA Description: right mcp joint Screw Bone Ti 2.7mm Acumed #Co-F2712 - S2 Aug 23 SCREW Right: Hand [employer] CO-F2712 / Implanted: Qty: 1 on 08/14/2016 by Biju Middleton at [facility] 2 16 AUG 23 / NA Description: right mcp joint Screw Bone Ti 2.7mm Acumed #Co-F2708 - Sor Sterlization SCREW Right: Hand [employer] CO-F2708 / Implanted: Qty: 1 on 08/14/2016 by Biju Middleton at [facility] OR STERLIZATION / OR STERILIZATION Description: Load #[id number] Screw Bone Ti 2.7mm Acumed #Co-F2706 - [id number] SCREW Right: Hand [employer] CO-F2706 / Implanted: Qty: 1 on 08/14/2016 by Biju Middleton at [facility] N/A / N/A Bone Screw SCREW Right: Knee [employer] 10/27/2026 [id number] / Implanted: Qty: 1 on 04/14/2017 by Michael Hernandez MD at [facility] [id number] / [id number] Bone Screw SCREW Right: Knee [employer] 08/15/2026 [id number] / Implanted: Qty: 1 on 04/14/2017 by Michael Hernandez MD at [facility] [id number] / [id number] Bone Screw SCREW Right: Knee [employer] 10/27/2026 [id number] / Implanted: Qty: 1 on 04/14/2017 by Michael Hernandez MD at [facility] [id number] / [id number] Bone Screw SCREW Right: Knee [employer] 08/21/2025 [id number] / Implanted: Qty: 1 on 04/14/2017 by Michael Hernandez MD at [facility] [id number] / [id number] Modular Finned Stem Stem Right: Knee [employer] 02/12/2027 [id number] / Implanted: Qty: 1 on 04/14/2017 by Michael Hernandez MD at [facility] [id number] / [id number] Cammulated Interference Screw Right: Hand [employer] 11/01/2020 [id number] / Implanted: Qty: 2 on 05/06/2016 by Biju Middleton at [facility] AT [facility] N/A / [id number] Mcp Fusion Plate, Right Right: Hand [employer] PL-MCPR / Implanted: Qty: 1 on 08/14/2016 by Biju Middleton at [facility] AT [facility] 2 16 AUG 23 documented as of this encounter Results Not on filedocumented in this encounter Insurance Payer Benefit Plan / Subscriber ID Effective Phone Address Type Group Dates ANTHONY CRUZ xxxxxxxxx 2015-[place]rin[address] [place] [id number] MANAGED MEDICAID [place], [place] documented as of this encounter
--- OUTSIDE RECORDS SUMMARY | 2019-11-19 05:50 | XMS REPORT | Summary of Care ---
:1970 Author Organization [address] [address] Care Team Providers Name Role Phone Robert Radford MD Unavailable Unavailable Gorge Hagen DO Primary Care Provider Reason for Visit Reason Comments Assessment Appointment Encounter Details Date Type Department Care Team Description 04/13/2019 Telephone [facility] Jaciel Boucher MD Assessment; GASTROENTEROLOGY -[address] [facility] [address] [place] [phone] Allergies Active Allergy Reactions Severity Noted Date [...] mellitus without complications Overview: ICD10 Diagnosis Term Fruit Checker Utility documented as of this encounter (statuses [...] 04/15/2019 Appointment Radiology Tracey Cotter MD [address] [place] [address] [phone] 05/04/2019 Office Visit Neurology Kirill Arango MD [address] [place] [phone] 05/05/2019 Office Visit Obstetrics & Gynecology Ileana Cordova MD [address] [place] [address] DR. [address]st [address] [place] [phone] 05/06/2019 Office Visit Internal Medicine Bernice Arzate MD [address] [place] [phone] 06/03/2019 Office Visit Gastroenterology Jaciel Boucher MD [address] [place] [address]. [address] [place] [phone] 06/09/2019 Office Visit Endocrinology Diabetes & Sayda Rosas, ASSISTANT STORE MANAGER Metabolism [address] [place] [address] [phone] Health Maintenance Due Date Last Done Comments [...] of this encounter Implants Implanted Type Area Manufacturers Representative Device Shelf Model / Identifier Expiration Serial / Lot Date Dbm Putty Maxxeus .5cc Cts #2014-40 - Sn/A BONE Right: Community Tissue 03/07/2018 / Implanted: Qty: 1 on 08/14/2016 by Biju Middleton at [facility] AT [facility] N/A / [id number] Cement CEMENT Right: Yvonne 08/07/2018 6195-1-001 / Implanted: Qty: 1 on 04/14/2017 by Michael Hernandez MD at [facility] Knee [id number] / [id number] Cr Tibial Bearing KNEE Right: Biomet 02/18/2022 137028 / Implanted: Qty: 1 on 04/14/2017 by Michael Hernandez MD at [facility] Knee [id number] / [id number] Cr Femoral Right KNEE Right: [employer] 03/17/2027 [id number] / Implanted: Qty: 1 on 04/14/2017 by Michael Hernandez MD at [facility] [place]nee [id number] / [id number] Primary Tibial Modular Tray KNEE Right: [employer] 01/16/2021 [id number] / Implanted: Qty: 1 on 04/14/2017 by Michael Hernandez MD at [facility] [place] [id number] / [id number] Standard Patella PATELLA Right: [employer] 01/22/2022 [id number] / Implanted: Qty: 1 on 04/14/2017 by Michael Hernandez MD at [facility] [place] [id number] / [id number] Screw Bone Ti 2.7mm Acumed #Co-F2710 - S2 Aug 23 SCREW Right: [employer] CO-F2710 / Implanted: Qty: 2 on 08/14/2016 by Biju Middleton at [facility] 2 16 AUG 23 / NA Description: right mcp joint Screw Bone Ti 2.7mm Acumed #Co-F2712 - S2 Aug 23 SCREW Right: Hand [employer] CO-F2712 / Implanted: Qty: 1 on 08/14/2016 by Biju Middleton at [facility] 2 16 AUG 23 / NA Description: right mcp joint Screw Bone Ti 2.7mm Acumed #Co-F2708 - Sor Sterlization SCREW Right: Hand [employer] CO-F2708 / Implanted: Qty: 1 on 08/14/2016 by Biju Middleton at [facility] OR STERLIZATION / OR STERILIZATION Description: Load # Screw Bone Ti 2.7mm Acumed #Co-F2706 - [id number] SCREW Right: Hand [employer] CO-F2706 / Implanted: Qty: 1 on 08/14/2016 by Biju Middleton at [facility] N/A / N/A Bone Screw SCREW Right: Knee [employer] 10/27/2026 [id number] / Implanted: Qty: 1 on 04/14/2017 by Michael Hernandez MD at [facility] [id number] / [id number] Bone Screw SCREW Right: Knee [employer] 08/15/2026 907285 / Implanted: Qty: 1 on 04/14/2017 by Michael Hernandez MD at [facility] [id number] / [id number] Bone Screw SCREW Right: Knee [employer] 10/27/2026 699057 / Implanted: Qty: 1 on 04/14/2017 by Michael Hernandez MD at [facility] [id number] / [id number] Bone Screw SCREW Right: Knee [employer] 08/21/2025 [id number] / Implanted: Qty: 1 on 04/14/2017 by Michael Hernandez MD at [facility] [id number] / [id number] Modular Finned Stem Stem Right: Knee [employer] 02/12/2027 [id number] / Implanted: Qty: 1 on 04/14/2017 by Michael Hernandez MD at [facility] [id number] / [id number] Cammulated Interference Screw Right: Hand [employer] 11/01/2020 [id number] / Implanted: Qty: 2 on 05/06/2016 by Biju Middleton at [facility] N/A / [id number] Mcp Fusion Plate, Right Right: Hand [employer] PL-MCPR / Implanted: Qty: 1 on 08/14/2016 by Biju Middleton at [facility] 2 16Aug 16 documented as of this encounter Results Not on filedocumented in this encounter Insurance Payer Benefit Plan / Subscriber ID Effective Phone Address Type Group Dates ANTHONY CRUZ xxxxxxxxx 2015-[address] Medicaid [place] [id number] MANAGED MEDICAID [place] documented as of this encounter
--- OUTSIDE RECORDS SUMMARY | 2019-11-19 05:51 | XMS REPORT | Summary of Care ---
:1970 Author Organization [facility] Address [address] [place] [id number] Care Team Providers Name Role Phone Robert Radford MD Unavailable Unavailable Gorge Hagen DO Primary Care Provider Reason for Referral (Routine) Status Reason Specialty Diagnoses / Referred By Referred To Procedures Contact Contact New Request Electroneurodiagnostic Diagnoses Neuropathy Erendira [facility]ango[facility] Procedures EMGNCV Kirill Gallagher MD Emg/Ncv [address] [place] [phone] [facility] Phone: [facility] [phone] [place] [address] Fax: Reason for Visit Reason Comments New Patient (Routine) Status Reason Specialty Diagnoses / Referred By Referred To Procedures Contact Contact New Request Neurology Diagnoses Neuropathy Linda Burnette MD Procedures CONSULT/REFERRAL NEUROLOGY [address] [place] [id number] Encounter Details Date Type Department Care Team Description 04/26/2019 Office Visit [facility] Kirill Arango V, Neuropathy (Primary Dx); Neurology, Bruno Duncan MD RLS (restless legs syndrome); [place] [address] [facility] Type 2 diabetes mellitus without complication, without long-term current use of insulin; [address] [place] [address] H/O gastric bypass; Suite [facility] [address] B12 deficiency; [place], [place] [phone] Chronic bilateral low back pain, with sciatica presence unspecified [id number] [phone] Allergies Active Allergy Reactions Severity Noted Date [...] Status PROAIR HFA 90 Inhale 1 Puff 0 12/11/2015 Active mcg/actuation every 4 (four) inhaler hours as needed. rOPINIRole 1 mg Take 1 mg by 1 03/05/2017 Active tablet mouth every morning. estradiol 1 mg Take 1 tablet by 30 tablet 11 03/02/2018 Active tablet mouth daily. Polyethylene Take 1 Packet by 30 Packet 2 06/08/2018 Active Glycol 3350 mouth as needed (MIRALAX) 17 gram for Constipation. powderIndications: Chronic fatigue, Hypothyroidism, unspecified type linaclotide Take 290 mcg by 30 capsule 2 06/08/2018 Active (LINZESS) 290 mcg mouth daily. CapIndications: Chronic fatigue, Hypothyroidism, unspecified type proMETHazine 25 mg Take 1 tablet by 12 tablet 0 09/14/2018 Active tablet mouth every 6 (six) hours as needed for Nausea and Vomiting (N/V) or N/V unresponsive to Ondansetron. eszopiclone Take 3 mg by 0 Active (LUNESTA) 3 mg mouth at bedtime. tabletIndications: Bradycardia, Atypical chest pain, Fatigue, unspecified type, Recurrent chest pain lisinopril 20 mg 0 10/18/2018 Active tablet metformin ER 500 Take 1 tablet by 45 tablet 1 10/19/2018 Active mg 24 hr mouth daily with tabletIndications: breakfast. Type 2 diabetes mellitus without complication, without long-term current use of insulin CETIRIZINE 10 mg TAKE 1 TABLET BY 30 tablet 2 01/07/2019 Active tabletIndications: MOUTH EVERY DAY Chronic fatigue, Hypothyroidism, unspecified type GABAPENTIN 300 mg TAKE 1 CAPSULE BY 60 capsule 2 01/25/2019 Active capsuleIndications MOUTH TWICE A DAY : Lumbar back pain with radiculopathy affecting right lower extremity hydrOXYzine 50 mg TAKE 4 TABLETS 2 11/14/2018 Active tablet ORALLY DAILY DIRECTED peg-electrolyte Take as directed 4000 mL 0 02/04/2019 Active soln before 236-22.74-6.74 colonoscopy -5.86 gram solutionIndication s: Rectal pain hydrocortisone-pra Insert 1 10 g 1 02/04/2019 Active movine (PROCTOFOAM Applicator into HC) rectal rectum 2 (two) foamIndications: times daily. Rectal pain pantoprazole Take by mouth. 0 Active sodium (PROTONIX ORAL) dicyclomine 20 mg Take 1 tablet by 20 tablet 0 02/08/2019 Active tabletIndications: mouth every 6 Abdominal pain, (six) hours as unspecified needed for abdominal location Abdominal pain. ondansetron 4 mg Take 2 tablets by 20 tablet 0 02/08/2019 Active tabletIndications: mouth every 8 Abdominal pain, (eight) hours as unspecified needed for Nausea abdominal location and Vomiting (N/V). diazePAM 5 mg Take 1 tablet by 30 tablet 0 02/11/2019 Active tablet mouth at bedtime. levothyroxine 50 Take 1 tablet by 30 tablet 2 02/19/2019 Active mcg mouth every tabletIndications: morning. Hypothyroidism, unspecified type METFORMIN ER 500 TAKE 1 TABLET BY 90 tablet 1 02/23/2019 Active mg 24 hr MOUTH EVERY DAY tabletIndications: WITH BREAKFAST Type 2 diabetes mellitus without complication, without long-term current use of insulin CETIRIZINE 10 mg TAKE 1 TABLET BY 30 tablet 2 02/23/2019 Active tabletIndications: MOUTH EVERY DAY Chronic fatigue, Hypothyroidism, unspecified type dexAMETHasone 1 mg Please take at 1 tablet 0 03/30/2019 Active tabletIndications: 11pm tonight Adrenal nodule rOPINIRole Take 1 tablet by 15 tablet 0 04/26/2019 Active (REQUIP) 0.5 mg mouth 3 (three) tabletIndications: times daily. RLS (restless legs syndrome) DULoxetine Take 1 capsule by 30 capsule 1 04/26/2019 Active (CYMBALTA) 60 mg mouth daily. capsuleIndications : Neuropathy pregabalin (LYRICA Take by mouth. 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 documented as of this encounter (statuses [...] Sign Reading Time Taken Comments Blood Pressure 154/83 04/26/2019 8:59 AM CDT Pulse 53 04/26/2019 8:59 AM CDT Temperature - - Respiratory Rate - - Oxygen Saturation 96% 04/26/2019 8:59 AM CDT Inhaled Oxygen Concentration - - Weight 99.8 kg (220 lb) 04/26/2019 8:59 AM CDT Height 157.5 cm (5' 2") 04/26/2019 8:59 AM CDT Body Mass Index 40.24 04/26/2019 8:59 AM CDT documented in this encounter Progress Notes Baljit Browning MA - 04/26/2019 9:00 AM CDT Eva Aguilar is a 48 year old female Chief Complaint Patient presents with New Patient atel, Kirill Gallagher MD - 04/26/2019 9:00 AM CDT Cc: pain in legs, tingling and numbness in feet HPI 04/26/19 48 years old right handed woman came for evaluation for tingling and numbness and pain, accompanied by . Her symptoms started about 6 months ago. She describes numbness in her feet, right>lef for last 6 months which has been progressively getting worse. She describes numbness as loss of sensation. She can not recall precipitating events. Her symptoms are worse during night. She denies any fall. She has history of DM. She underwent Gastric Bypass 11/24. She lost 100 lbs over last 1 year. Symptoms worse at night. She was on injection and Oral hypoglycemics in the past for DM. Has tried Gabapentin , made her sleepy. Lyrica helped though she has gained weight. She has history bilateral CTS release. She also carries history of RLS and was on Requip 1mg daily which she has stopped. History of Iron deficiency anemia prior to Hysterectomy. She has achy feeling and ants bite feeling. Since stopping Requip since last month she has more achy feeling in her legs. History of chronic lower back pain, sciatica since epidural injection . Worse since last 1 yearwith 100 lbs weight loss. She sees pain management. She desccribes she notices her both lower extremities get Numb, heavy and achy. Recent ED visit, she was diagnosed with lumbar stenosis and started on Hydrocodone and Lyrica. No bowel/bladder problems Noncompliant with multivitamins. FH- family history of neuropathy grandmother. Dad has history DM 2, She denies EMG/NCS testing She underwent some lab testing for peripheral neuropathy. She denies skin biopsy for small fiber neuropathy evaluation She denies racing heart, shortness of breath, sweating abnormalities, bowel/ bladder problems, nausea, vomiting, diarrhea. She has tried Gabapentin and pregabaline Allergies Eva is allergic to nsaids (non-steroidal anti-inflammatory drug); iv contrast [iodine and iodide containing products]; latex; macrobid [ nitrofurantoin monohyd/m-cryst]; sulfa (sulfonamide antibiotics); and toradol [ ketorolac tromethamine]. Medications Outpatient Medications Prior to Visit Medication Sig Dispense Refill dexAMETHasone 1 mg tablet Please take at 11pm tonight 1 tablet 0 CETIRIZINE 10 mg tablet TAKE 1 TABLET BY MOUTH EVERY DAY 30 tablet 2 METFORMIN ER 500 mg 24 hr tablet TAKE 1 TABLET BY MOUTH EVERY DAY WITH BREAKFAST 90 tablet 1 levothyroxine 50 mcg tablet Take 1 tablet by mouth every morning. 30 tablet 2 diazePAM 5 mg tablet Take 1 tablet by mouth at bedtime. 30 tablet 0 dicyclomine 20 mg tablet Take 1 tablet by mouth every 6 (six) hours as needed for Abdominal pain. 20 tablet 0 ondansetron 4 mg tablet Take 2 tablets by mouth every 8 (eight) hours as needed for Nausea and Vomiting (N/V). 20 tablet 0 pregabalin (LYRICA ORAL) Take by mouth. pantoprazole sodium (PROTONIX ORAL) Take by mouth. hydrocortisone-pramovine (PROCTOFOAM HC) rectal foam Insert 1 Applicator into rectum 2 (two) times daily. 10 g 1 hydrOXYzine 50 mg tablet TAKE 4 TABLETS ORALLY DAILY DIRECTED 2 peg-electrolyte soln 236-22.74-6.74 -5.86 gram solution Take as directed before colonoscopy 4000mL 0 GABAPENTIN 300 mg capsule TAKE 1 CAPSULE BY MOUTH TWICE A DAY 60 capsule 2 CETIRIZINE 10 mg tablet TAKE 1 TABLET BY MOUTH EVERY DAY 30 tablet 2 lisinopril 20 mg tablet metformin ER 500 mg 24 hr tablet Take 1 tablet by mouth daily with breakfast. 45 tablet 1 eszopiclone (LUNESTA) 3 mg tablet Take 3 mg by mouth at bedtime. proMETHazine 25 mg tablet Take 1 tablet by mouth every 6 (six) hours as needed for Nausea and Vomiting (N/V) or N/V unresponsive to Ondansetron. 12 tablet 0 linaclotide (LINZESS) 290 mcg Cap Take 290 mcg by mouth daily. 30 capsule 2 Polyethylene Glycol 3350 (MIRALAX) 17 gram powder Take 1 Packet by mouth as needed for Constipation. 30 Packet 2 estradiol 1 mg tablet Take 1 tablet by mouth daily. 30 tablet 11 rOPINIRole 1 mg tablet Take 1 mg by mouth every morning. 1 PROAIR HFA 90 mcg/actuation inhaler Inhale 1 Puff every 4 (four) hours as needed. No facility-administered medications prior to visit. Histories Past Medical History: Diagnosis Date Abnormal uterine [...] diabetes mellitus without complication 06/14/2015 Urinary incontinence [place] / [facility] Past Surgical History: Procedure Laterality Date BREAST BIOPSY BREAST SURGERY Bx and marker placement SECTION x 2 CHOLECYSTECTOMY 06/03/2013 Lap COLONOSCOPY 2012 [facility] GI COLONOSCOPY N/A 02/09/2019 Surgeon: Teodoro Bustillo MD; [facility] CYST EXCISION 06/2013 L breast DILATION AND CURETTAGE (SHX) 2011 + novasure ENDOMETRIAL ABLATION 2013 ENDOMETRIAL ABLATION, THERMAL 2012 ESOPHAGOGASTRODUODENOSCOPY N/A 12/24/2018 Surgeon: Leonardo Edouard DO; [facility] FINGER ARTHRODESIS Right 08/14/2016 Surgeon: Biju Middleton; [facility] HEMORRHOIDECTOMY HYSTERECTOMY 08/2013 FELIPE LAPAROSCOP GASTRIC BYPASS 12/03/2017 LIGAMENT REPAIR Right 08/21/2015 Surgeon: Michael Hernadnez MD; Location: [facility] OPEN CARPAL TUNNEL RELEASE Right 08/21/2015 Surgeon: Michael Hernandez MD; Location: [facility] OR [facility] OPEN CARPAL TUNNEL RELEASE Left 04/22/2016 Surgeon: Michael Hernandez MD; Location: [facility] OR [facility] RADICAL HYSTERECTOMY SALPINGO-OOPHORECTOMY 2012 TOTAL KNEE ARTHROPLASTY Right 04/14/2017 Surgeon: Michael Hernandez MD; Location: [facility] OR [facility] TUBAL LIGATION 1990 ULNAR COLLATERAL LIGAMENT RECONSTRUCTION (SHX) Right 05/06/2016 Surgeon: Biju Middleton; Location: [place] OR [facility] Social History Socioeconomic History Marital status: Spouse [...] Last attempt to quit: 05/28/2013 Years since quittin.9 Smokeless tobacco: Never Used Substance and Sexual [...] file Gets together: Not on file Attends confucianism service: Not on file Active member of [...] Social History Narrative Single,currently engaged living in [place] with fiance and Grandmother. Lives in apartment [facility]. Patient is disabled. Hinduism Preference: Jehovah'S Witness Denies Domestic abuse within the home Family History Problem Relation Age of Onset [...] Psychiatry NoFHx Other - see comments NoFHx Review of Systems Constitutional: Positive for activity change. HENT: Negative. Eyes: Negative. Respiratory: Negative. Breasts: Negative. Cardiovascular: Negative. Gastrointestinal: Negative. Genitourinary: Negative. Musculoskeletal: Positive for back pain. Skin: Negative. Neurological: Positive for numbness. Psychiatric/Behavioral: Negative. Endocrine: Endocrine negative Vital Signs [facility] 08/28/2013 Physical Exam HENT: Head: Normocephalic and atraumatic. Eyes: EOM are normal. Neck: Neck supple. Cardiovascular: Normal rate. Pulmonary/Chest: Effort normal. Musculoskeletal: She exhibits no edema. Skin: No erythema. Psychiatric: She has a normal mood and affect. Vitals: 04/26/19 0859 BP: (!) 154/83 BP Location: Right arm Patient Position: Sitting BP CUFF SIZE: Adult Large Pulse: 53 SpO2: 96% Weight: 220 lb (99.8 kg) Height: 5' 2" (1.575 m) Neuro exam Higher function - alert, oriented to time, place and person Language and comprehension- Follows three step commands Able to name low and high frequency words Normal repetition Cranial nerves Olfaction- intact Vision normal; fundus exam normal; Visual acuity- right 20/ , left-20/; no red color desaturation Extraocular movements intact, no nystagmus Facial sensation intact to Light touch, Pin prick and Temperature Face symmetric, facial muscle strength normal Gag reflex present, palate moves equally Tongue midline, no atrophy or fasciculation Sternocleidomastoid and Trapezius muscles strength normal Range of motion at neck is full, no cervical paraspinal tenderness present Motor strength 5/5 in all extremities proximally and distally EDB on left 4+/5, otherwise intact No atrophy/ fasciculation Sensory exam- intact Position sensation, decreased lt/ Pin prick upto lower 1/ 3 of legs, decreased vibration on Right toe Romberg`s negative Coordination- finger-nose intact bilaterally, Heel- sheen intact bilaterally No dysdiadokokinesia No involuntary movements- no tremors, no rigidity or bradykinesia Reflexes- Right Left Biceps 2+ 2+ Triceps 2+ 2+ Brachioradialis 2+ 2+ Knee 2+ 2+ Ankle 2+ 2+ Babinski`s sign Neg Neg Ankle and Knee clonus absent Gait- Normal Results for EVA AGUILAR ( ) as of 04/23/2019 11:44 Ref. Range 03/30/2019 10:52 TSH Latest Ref Range: 0.45 - 4.70 mIU/L 1.28 FREE T4 Latest Ref Range: 0.78 - 2.20 ng/dL: 1.32 VIT D 25OH Latest Ref Range: 25 - 80 ng/mL 30 Results for EVA AGUILAR ( ) as of 04/23/2019 11:44 Ref. Range 03/30/2019 00:00 POCT HBA1C Latest Ref Range: 4 - 6 % 5.6 Results for EVA AGUILAR ( ) as of 04/23/2019 11:44 Ref. Range 06/08/2018 15:32 VIT B12 Latest Ref Range: 240 - 930 pg/mL 383 Results for EVA AGUILAR ( ) as of 04/23/2019 11:44 Ref. Range 06/08/2018 15:32 FOLATE SER Latest Ref Range: 3.0 - 20.0 ng/mL 15.6 Conclusions: Abnormal study. Electrodiagnostic evidence of mild median neuropathy at wrist bilaterally. Assessment/Plan Assessment and Plan 48 years old Right handed woman came for worsening tingling and numbness and pain For 6 years/months. Exam revealed decreased lt/pp UPTO LOWER 1/3 legs, decreased vibration on right toe. Large/mixed fiber neuropathy ( gastric bypass, History DM, lowe normal B12) - To further evaluate neuropathy, we decided to order blood work . I also recommended to get EMG/NCS to evaluate and determine severity of neuropathy. SPEP, UPEP, IF, B6, B1 B12 defi- lower normal , Take 1000MCG sl DAILY. We discussed different medication options for neuropathic pain; such as Gabapentin, Pregabalin, carbamazepine, duoxetine, nortriptyline. We decide to try Gabapentin. Titration schedule was provided with Cymbalta 60mg Daily. MOA and adverse reactions were discussed. 2 month supply sent to pharmacy. Optimal control of DM/Predaibetes /B12 deficiency. May consider use of alpha lipoic acid 600 mg/day for prediabets related sensory symptoms after EMG/NCS. Education regarding neuropathy and fall prevention was advised. RLS- Iron studies Requip 0.25mg daily for 2 days then 0.50mg daily for 5 day then REQUIP 1mg daily. Titration was provided. Lower back pain- follow up with pain management Patient prefers [facility] management, can obtain from PCP DM- optimal blood glucose control Fall prevention Education Follow up in 12 weeks. documented in this encounter Plan of Treatment Date Type Specialty Care Team Description 05/05/2019 Office Visit Obstetrics & Gynecology Ileana Cordova MD [address] [place] [address] [address] [place], [place] [address] 05/06/2019 Office Visit Internal Medicine Bernice Arzate MD [address] [place] [phone] 06/03/2019 Office Visit Gastroenterology Jaciel Boucher MD [address] [place] [address]. [address] [place] [phone] 06/09/2019 Office Visit Endocrinology Diabetes & Sayda Rosas, [employer] Met[facility] [address] [place] [address] [phone] 08/03/2019 Office Visit Neurology Kirill Arango MD [address] [place] [phone] Name Type Priority Associated Diagnoses Date/Time IRON PANEL LAB Routine Neuropathy 04/26/2019 10:24 AM CDT RLS (restless legs syndrome) VITAMIN B1 (THIAMINE), LAB Routine Neuropathy 04/26/2019 10:24 AM CDT WHOLE BLOOD VITAMIN B6, PLASMA LAB Routine Neuropathy 04/26/2019 10:24 AM CDT ELECTROPHORESIS, SERUM LAB Routine Neuropathy 04/26/2019 10:24 AM CDT & URINE IMMUNOFIXATION, SERUM LAB Routine Neuropathy 04/26/2019 10:24 AM CDT & URINE ELECTROPHORESIS, SERUM LAB Routine Neuropathy 04/26/2019 10:24 AM CDT Electrophoresis, Urine LAB Routine Neuropathy 04/26/2019 10:24 AM CDT IMMUNOFIXATION, SERUM LAB Routine Neuropathy 04/26/2019 10:24 AM CDT Immunofixation, Urine LAB Routine Neuropathy 04/26/2019 10:24 AM CDT Name Type Priority Associated Diagnoses Order Schedule EMGNCV EMG Routine Neuropathy 1 Occurrences starting 04/26/2019 until 11/06/2019 Health Maintenance Due Date Last Done Comments [...] of this encounter Implants Implanted Type Area Access Consultant Device Shelf Model / Identifier Expiration Serial / Lot Date Ana Palmerxeus .5cc Cts #[id number] - Sn/A BONE Right: Community Tissue 03/07/2018 / Implanted: Qty: 1 on 08/14/2016 by Biju Middleton at [facility] AT [facility] N/A / [id number] Cement CEMENT Right: [employer] 08/07/2018 [id number] / Implanted: Qty: 1 on 04/14/2017 by Michael Hernandez MD at [facility] Knee [id number] / [id number] Cr Tibial Bearing KNEE Right: [employer] 02/18/2022 [id number] / Implanted: Qty: 1 on 04/14/2017 by Michael Hernandez MD at [facility] Knee [id number] / [id number] Cr Femoral Right KNEE Right: [employer] 03/17/2027 [id number] / Implanted: Qty: 1 on 04/14/2017 by Michael Hernandez MD at [facility] Knee [id number] / [id number] Primary Tibial Modular Tray KNEE Right: [employer] 01/16/2021 [id number] / Implanted: Qty: 1 on 04/14/2017 by Michael Hernandez MD at [facility] Knee [id number] / [id number] Standard Patella PATELLA Right: [employer] 01/22/2022 [id number] / Implanted: Qty: 1 on 04/14/2017 by Michael Hernandez MD at [facility] Knee [id number] / [id number] Screw Bone Ti 2.7mm Acumed #Co-F2710 - S2 16 Aug 23 SCREW Right: [employer] CO-[id number] / Implanted: Qty: 2 on 08/14/2016 by Biju Middleton at [facility] Hand 2 16 AUG 23 / NA Description: right mcp joint Screw Bone Ti 2.7mm Acumed #Co-F2712 - S2 16 Aug 23 SCREW Right: Hand [employer] [id number] / Implanted: Qty: 1 on 08/14/2016 by Biju Middleton at [facility] 2 16 AUG 23 / NA Description: right mcp joint Screw Bone Ti 2.7mm Acumed #Co-F2708 - Sor Sterlization SCREW Right: Hand [employer] CO-[id number] / Implanted: Qty: 1 on 08/14/2016 by Biju Middleton at [facility] OR STERLIZATION / OR STERILIZATION Description: Load #[id number] Screw Bone Ti 2.7mm Acumed #Co-F2706 - [id number] SCREW Right: Hand [employer] CO-[id number] / Implanted: Qty: 1 on 08/14/2016 by Biju Middleton at [facility] N/A / N/A Bone Screw SCREW Right: Knee [employer] 10/27/2026 [id number] / Implanted: Qty: 1 on 04/14/2017 by Michael Hernandez MD at [facility] [id number] / [id number] Bone Screw SCREW Right: Knee [employer] 08/15/2026 [id number] / Implanted: Qty: 1 on 04/14/2017 by Michael Hernandez MD at [facility] [id number] / [id number] Bone Screw SCREW Right: Knee [employer] 10/27/2026 [id number] / Implanted: Qty: 1 on 04/14/2017 by Michael Hernandez MD at [facility] [id number] / [id number] Bone Screw SCREW Right: Knee [employer] 08/21/2025 [id number] / Implanted: Qty: 1 on 04/14/2017 by Michael Hernandez MD at [facility] [id number] / [id number] Modular Finned Stem Stem Right: Knee [employer] 02/12/2027 [id number] / Implanted: Qty: 1 on 04/14/2017 by Michael Hernandez MD at [facility] [id number] / [id number] Cammulated Interference Screw Right: Hand [employer] 11/01/2020 [id number] / Implanted: Qty: 2 on 05/06/2016 by Biju Middleton at [facility] AT [facility] N/A / [id number] Mcp Fusion Plate, Right Right: Hand [employer] [id number] / Implanted: Qty: 1 on 08/14/2016 by Biju Middleton at [facility] 2 AUG 23 documented as of this encounter Results Not on filedocumented in this encounter Visit Diagnoses Diagnosis Neuropathy - Primary Mononeuritis of unspecified site RLS (restless legs syndrome) Restless legs syndrome (RLS) Type 2 diabetes mellitus without complication, without long-term current use of insulin H/O gastric bypass Bariatric surgery status B12 deficiency Other B-complex deficiencies Chronic bilateral low back pain, with sciatica presence unspecified documented in this encounter Insurance Payer Benefit Plan / Subscriber ID Effective Phone Address Type Group Dates ANTHONY CRUZ xxxxxxxxx 2015-[address] Medicaid HEALTHCARE - [facility] [id number] MANAGED MEDICAID [place], MEDICAID [place] documented as of this encounter
--- OUTSIDE RECORDS SUMMARY | 2019-11-19 05:51 | XMS REPORT | Summary of Care ---
:1970 Author Organization [facility] Address [address] [place] [address] Care Team Providers Name Role Phone Robert Radford MD Unavailable Unavailable Gorge Hagen DO Primary Care Provider Reason for Visit Reason Comments LAB WORK Encounter Details Date Type Department Care Team Description 04/26/2019 Clinical Services Specialist Visit [facility] Clinical Kirill Arango MD [address] [place] [address] Neuropathy Laboratory, [address] [address] Allergies Active Allergy Reactions Severity Noted [...] 0 03/30/2019 Active tabletIndications: tonight Adrenal nodule rOPINIRole (REQUIP) Take 1 tablet by 15 tablet 0 04/26/2019 Active 0.5 mg mouth 3 (three) tabletIndications: times daily. RLS (restless legs syndrome) DULoxetine Take 1 capsule by 30 capsule 1 04/26/2019 Active (CYMBALTA) 60 mg mouth daily. 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 [address] [phone] 05/06/2019 Office Visit Internal Medicine Bernice Arzate MD [address] [place] [phone] 06/03/2019 Office Visit Gastroenterology Jaciel Boucher MD [address] [place] [address]. [address] [place] [address] 06/09/2019 Office Visit Endocrinology Diabetes & Sayda Rosas, CONSTRUCTION SCHEDULER Metabolism [address] [place] [address] [phone] 08/03/2019 Office Visit Neurology Kirill Arango MD [address] [place] [address] Health Maintenance Due Date Last Done Comments [...] of this encounter Implants Implanted Type Area Nail Setter Device Shelf Model / Identifier Expiration Serial / Lot Date Dbm Putty Maxxeus .5cc Cts #2014-40 - Sn/A BONE Right: Community Tissue 03/07/2018 / Implanted: Qty: 1 on 08/14/2016 by Biju Middleton at [facility] N/A / [id number] Cement CEMENT Right: Yvonne 08/07/2018 [id number] / Implanted: Qty: 1 on 04/14/2017 by Michael Hernandez MD at [facility] Knee [id number] / [id number] Cr Tibial Bearing KNEE Right: [employer] 02/18/2022 [id number] / Implanted: Qty: 1 on 04/14/2017 by Michael Hernandez MD at [facility] Knee [id number] / [id number] Cr Femoral Right KNEE Right: [employer] 03/17/2027 [id number] / Implanted: Qty: 1 on 04/14/2017 by Michael Hernandez MD at [facility] Knee [id number] / [id number] Primary Tibial Modular Tray KNEE Right: [employer] 01/16/2021 [id number] / Implanted: Qty: 1 on 04/14/2017 by Michael Hernandez MD at [facility] Knee [id number] / [id number] Standard Patella PATELLA Right: [employer] 01/22/2022 [id number] / Implanted: Qty: 1 on 04/14/2017 by Michael Hernandez MD at [facility] Knee [id number] / [id number] Screw Bone Ti 2.7mm Acumed #Co-F2710 - S2 16 Aug 23 SCREW Right: [employer] CO-F2710 / Implanted: Qty: 2 on 08/14/2016 by Biju Middleton at [facility] 2 16 AUG 23 / NA Description: right mcp joint Screw Bone Ti 2.7mm Acumed #Co-F2712 - S2 16 Aug 23 SCREW Right: Hand [employer] CO-F2712 / Implanted: Qty: 1 on 08/14/2016 by Biju Middleton at [facility] 2 16 AUG 23 / NA Description: right mcp joint Screw Bone Ti 2.7mm Acumed #Co-F2708 - Sor Sterlization SCREW Right: Hand [employer] CO-F2708 / Implanted: Qty: 1 on 08/14/2016 by Biju Middleton at [facility] OR STERLIZATION / OR STERILIZATION Description: Load # Screw Bone Ti 2.7mm Acumed #Co-F2706 - [id number] SCREW Right: Hand [employer] CO-F2706 / Implanted: Qty: 1 on 08/14/2016 by Biju Middleton at [facility] N/A / N/A Bone Screw SCREW Right: Knee [employer] 10/27/2026 [id number] / Implanted: Qty: 1 on 04/14/2017 by Michael Hernandez MD at [facility] [id number] / [id number] Bone Screw SCREW Right: Knee [employer] 08/15/2026 [id number] / Implanted: Qty: 1 on 04/14/2017 by Michael Hernandez MD at [facility] [id number] / [id number] Bone Screw SCREW Right: Knee [employer] 10/27/2026 [id number] / Implanted: Qty: 1 on 04/14/2017 by Michael Hernandez MD at [facility] [id number] / [id number] Bone Screw SCREW Right: Knee [employer] 08/21/2025 [id number] / Implanted: Qty: 1 on 04/14/2017 by Michael Hernandez MD at [facility] [id number] / [id number] Modular Finned Stem Stem Right: Knee [employer] 02/12/2027 [id number] / Implanted: Qty: 1 on 04/14/2017 by Michael Hernandez MD at [facility] [id number] / [id number] Cammulated Interference Screw Right: Hand [employer] 11/01/2020 [id number] / Implanted: Qty: 2 on 05/06/2016 by Biju Middleton at [facility] N/A / [id number] Mcp Fusion Plate, Right Right: Hand [employer] [id number] / Implanted: Qty: 1 on 08/14/2016 by Biju Middleton at [facility] 2 AUG 23 documented as of this encounter Results Not on filedocumented in this encounter Visit Diagnoses Diagnosis Neuropathy Mononeuritis of unspecified site documented in this encounter Insurance Payer Benefit Plan / Subscriber ID Effective Phone Address Type Group Dates ANTHONY CRUZ xxxxxxxxx 2015-Srinivasan SANTILLAN Medicaid [facility] [place] [id number] MANAGED MEDICAID [place], [place]ICA[place] documented as of this encounter
--- OUTSIDE RECORDS SUMMARY | 2019-11-19 05:52 | XMS REPORT | Summary of Care ---
:1970 Author Organization [facility] - [facility] Address [address] [place] [id number] Care Team Providers Name Role Phone Robert Radford MD Unavailable Unavailable Gorge Hagen DO Primary Care Provider Reason for Referral Radiology Services (STAT) Status Reason Specialty Diagnoses / Referred By Referred To Procedures Contact Contact New Request Diagnostic Diagnoses Other chest pain Davian Waters, Radiology Procedures Chest 1 View DO [address] [facility] [address] [place] [address] Radiology Services (STAT) Status Reason Specialty Diagnoses / Referred By Referred To Procedures Contact Contact New Request Diagnostic Diagnoses Other chest pain Davian Waters, Radiology Procedures Chest 1 View DO [address] [facility] [address] [place] [address] Reason for Visit Reason Comments Chest Pain Auth/Cert Status Reason Specialty Diagnoses / Referred By Referred To Procedures Contact Contact Emergency Medicine [facility] Emergency Dept [address] [place] [address] Encounter Details Date Type Department Care Team Description 04/26/2019 - Emergency [facility]Emer[facility] Davian Waters DO Other chest pain (Primary Dx); 04/27/[address] Medication reaction, initial encounter 200 [facility] [address] [phone] [place], [place] [phone] [facility] [phone] Allergies Active Allergy Reactions Severity Noted Date [...] as of this encounter (statuses as of 04/27/2019) Medications Medication Sig Dispensed Refills Start Date [...] location and Vomiting (N/V). diazePAM 5 mg tablet Take 1 tablet [...] as of this encounter (statuses as of 04/27/2019) Active Problems Problem Noted Date Obesity (BMI [...] mellitus without complications Overview: ICD10 Diagnosis Term Padded Box Sewer Utility documented as of this encounter (statuses as of 04/27/2019) Resolved Problems Problem Noted Date Resolved Date Type 2 diabetes mellitus 11/26/2013 12/30/2013 documented as of this encounter (statuses as of 04/27/2019) Immunizations Name Administration Dates Next Due Influenza [...] Sign Reading Time Taken Comments Blood Pressure 158/74 04/27/2019 1:50 AM CDT Pulse 58 04/27/2019 1:50 AM CDT Temperature 36.8 C (98.2 F) 04/26/2019 11:13 PM CDT Respiratory Rate 16 04/27/2019 1:50 AM CDT Oxygen Saturation 96% 04/27/2019 1:50 AM CDT Inhaled Oxygen Concentration - - Weight 99.8 kg (220 lb) 04/26/2019 11:13 PM CDT Height - - Body Mass Index 40.24 04/26/2019 8:59 AM CDT documented in this encounter Discharge Instructions AttachmentsThe following attachments cannot be sent through Care Everywhere.Drug Reaction, Other (Kyrgyz)documented in this encounter Plan of Treatment Date Type Specialty Care Team Description 05/05/2019 Office Visit Obstetrics & Gynecology Ileana Cordova MD [address] [place] [address] [address] [phone] 05/06/2019 Office Visit Internal Medicine Bernice Arzate MD [address] [place] [phone] 06/03/2019 Office Visit Gastroenterology Jaciel Boucher MD [address] [place] [address]. [address] [place] [phone] 06/09/2019 Office Visit Endocrinology Diabetes & Sayda Rosas, BAN[employer] [facility] [address] [place], [place] [phone] 08/03/2019 Office Visit Neurology Kirill Arango MD [address] [place] [phone] Health Maintenance Due Date Last Done Comments [...] of this encounter Implants Implanted Type Area Student Counselor Device Shelf Model / Identifier Expiration Serial / Lot Date Dbm Sonny Maxxeus .5cc Cts #2014-40 - Sn/A BONE Right: Community Tissue 03/07/2018 / Implanted: Qty: 1 on 08/14/2016 by Davian Middleton at [facility] AT [facility] N/A / [id number] Cement CEMENT Right: [employer] 08/07/2018 [id number] / Implanted: Qty: 1 on 04/14/2017 by Michael Hernandez MD at [facility] Knee [id number] / [id number] Cr Tibial Bearing KNEE Right: [employer] 02/18/2022 [id number] / Implanted: Qty: 1 on 04/14/2017 by Michael Hernandez MD at [facility] Knee [id number] / [id number] Cr Femoral Right KNEE Right: [employer] 03/17/2027 [id number] / Implanted: Qty: 1 on 04/14/2017 by Michael Hernandez MD at [facility] Knee [id number] / [id number] Primary Tibial Modular Tray KNEE Right: [employer] 01/16/2021 [id number] / Implanted: Qty: 1 on 04/14/2017 by Michael Hernandez MD at [facility] Knee [id number] / [id number] Standard Patella PATELLA Right: [employer] 01/22/2022 [id number] / Implanted: Qty: 1 on 04/14/2017 by Michael Hernandez MD at [facility] Knee [id number] / [id number] Screw Bone Ti 2.7mm Acumed #Co-F2710 - S2 16 Aug 23 SCREW Right: [employer] CO-[id number] / Implanted: Qty: 2 on 08/14/2016 by Davian Middleton at [facility] AT [facility] 2 16 AUG 23 / NA Description: right mcp joint Screw Bone Ti 2.7mm Acumed #Co-F2712 - S2 16 Aug 23 SCREW Right: Hand [employer] [id number] / Implanted: Qty: 1 on 08/14/2016 by Davian Middleton at [facility] 2 16 AUG 23 / NA Description: right mcp joint Screw Bone Ti 2.7mm Acumed #Co-F2708 - Sor Sterlization SCREW Right: Hand [employer] CO-[id number] / Implanted: Qty: 1 on 08/14/2016 by Davian Middleton at [facility] OR STERLIZATION / OR STERILIZATION Description: Load # Screw Bone Ti 2.7mm Acumed #Co-F2706 - [id number] SCREW Right: Hand [employer] CO-[id number] / Implanted: Qty: 1 on 08/14/2016 by Davian Middleton at [facility] N/A / N/A Bone Screw SCREW Right: Knee [employer] 10/27/2026 [id number] / Implanted: Qty: 1 on 04/14/2017 by Michael Hernandez MD at [facility] [id number] / [id number] Bone Screw SCREW Right: Knee [employer] 08/15/2026 [id number] / Implanted: Qty: 1 on 04/14/2017 by Michael Hernandez MD at [facility] [id number] / [id number] Bone Screw SCREW Right: Knee [employer] 10/27/2026 [id number] / Implanted: Qty: 1 on 04/14/2017 by Michael Hernandez MD at [facility] [id number] / [id number] Bone Screw SCREW Right: Knee [employer] 08/21/2025 [id number] / Implanted: Qty: 1 on 04/14/2017 by Michael Hernandez MD at [facility] Surgical Belt [id number] / [id number] Modular Finned Stem Stem Right: Knee [employer] 02/12/2027 [id number] / Implanted: Qty: 1 on 04/14/2017 by Michael Hernandez MD at [facility] [id number] / [id number] Cammulated Interference Screw Right: Hand [employer] 11/01/2020 [id number] / Implanted: Qty: 2 on 05/06/2016 by Davian Middleton at [facility] [place] [facility] N/A / [id number] Mcp Fusion Plate, Right Right: Hand [employer] [id number] / Implanted: Qty: 1 on 08/14/2016 by Davian Middleton at [facility] 2 16 AUG 23 documented as of this encounter Procedures Procedure Name Priority Date/Time Associated Comments Diagnosis XR CHEST 1 VW STAT 04/27/2019 12:13 Other chest pain Results for this AM CDT procedure are in the results section. CBC WITH DIFFERENTIAL STAT 04/26/2019 11:49 Other chest pain Results for this PM CDT procedure are in the results section. FIBRINOGEN STAT 04/26/2019 11:49 Other chest pain Results for this PM CDT procedure are in the results section. ACTIVATED PARTIAL STAT 04/26/2019 11:49 Other chest pain Results for this THRMPLAS ABRAN PM CDT procedure are in the results section. PROTHROMBIN TIME / STAT 04/26/2019 11:49 Other chest pain Results for this INR PM CDT procedure are in the results section. CBC WITH DIFF Routine 04/26/2019 11:49 Other chest pain Results for this PM CDT procedure are in the results section. BASIC METABOLIC PANEL STAT 04/26/2019 11:49 Other chest pain Results for this (NA, K, CL, CO2, PM CDT procedure are in GLUCOSE, BUN, the results CREATININE, CA) section. HEPATIC FUNCTION STAT 04/26/2019 11:49 Other chest pain Results for this PANEL (49505) PM CDT procedure are in (ALB,T.PRO,BILI the results T,BU/BC,ALT,AST,ALK section. PHOS) TROPONIN I STAT 04/26/2019 11:49 Other chest pain Results for this PM CDT procedure are in the results section. LIPASE STAT 04/26/2019 11:49 Other chest pain Results for this PM CDT procedure are in the results section. EKG-12 LEAD STAT 04/26/2019 11:20 PM CDT documented in this encounter Results Chest 1 View (04/27/2019 12:13 AM CDT) Specimen Impressions Performed At [facility]/VR/DOSE 1. No acute cardiopulmonary abnormalities are identified. RL: [id number] Narrative Performed At ORDERING PHYSICIAN: DAVIAN WATERS [facility]/VR/DOSE CLINICAL HISTORY: chest pain TECHNIQUE: Single view radiograph of the chest was performed. COMPARISON: none FINDINGS: The lungs are expanded and clear. No evidence of pleural effusion or pneumothorax is present. The cardiomediastinal silhouette is within normal limits. No acute osseous abnormalities are identified. Procedure Note [facility], Radiant Results Inft User - 04/27/2019 1:03 AM CDT ORDERING PHYSICIAN: DAVIAN WATERS CLINICAL HISTORY: chest pain TECHNIQUE: Single view radiograph of the chest was performed. COMPARISON: none FINDINGS: The lungs are expanded and clear. No evidence of pleural effusion or pneumothorax is present. The cardiomediastinal silhouette is within normal limits. No acute osseous abnormalities are identified. IMPRESSION 1. No acute cardiopulmonary abnormalities are identified. RL: [id number] Performing Organization Address City/State/Zipcode Phone Number [facility]//[facility] CBC WITH DIFFERENTIAL (04/26/2019 11:49 PM CDT) WBC 5.63 4.30 - 11.10 [facility] 10*3/L [facility] RBC 4.12 3.93 - 5.25 [facility] 10*6/L [facility] HGB 11.6 11.6 - 15.0 [facility] g/dL [facility] HCT 35.0 (L) 35.7 - 45.2 % [facility] MCV 85.0 80.6 - 95.5 fL [facility] MCH 28.2 25.9 - 32.8 pg [facility] MCHC 33.1 31.6 - 35.1 [facility] g/dL [facility] RDW-SD 40.9 39.0 - 49.9 fL [facility] RDW-CV 13.3 12.0 - 15.5 % [facility] PLT 219 166 - 358 [facility] 10*3/L [facility] MPV 10.9 9.5 - 12.9 fL [facility] NRBC/100 WBC 0.0 0.0 - 10.0 /100 [facility] WBCs [facility] NRBC x10^3 <0.01 10*3/L [facility] GRAN MAT (NEUT) % 59.1 % [facility] SERVICES-[facility] IMM GRAN % 0.00 % [facility] LYMPH % 30.6 % [facility] MONO % 7.1 % [facility] EOS % 2.5 % [facility] BASO % 0.7 % [facility] GRAN MAT x10^3(ANC) 3.33 1.88 - 7.09 [facility] 10*3/uL [facility] IMM GRAN x10^3 <0.03 0.00 - 0.06 [facility] 10*3/uL [facility] LYMPH x10^3 1.72 1.32 - 3.29 [facility] 10*3/uL [facility] MONO x10^3 0.40 0.33 - 0.92 [facility] 10*3/uL [facility] EOS x10^3 0.14 0.03 - 0.39 [facility] 10*3/uL [facility] BASO x10^3 0.04 0.01 - 0.07 [facility] 10*3/uL [facility] Specimen Blood - VENOUS Performing Organization Address City/State/Zipcode Phone Number [facility] CLIA: [id number], [address] [place] [address] [facility] [address] Prothrombin Time (PT) / INR (04/26/2019 11:49 PM CDT) PROTIME PATIENT 11.8 10.1 - 12.6 [facility] Seconds [facility] INR 1.1Comment: Normal [facility] INR <1.1; Warfarin [facility] Therapeutic range [facility] 2.0 to 3.0 or 2.5 to 3.5, depending upon the indications. Specimen Blood - VENOUS Performing Organization Address City/[facility]/Zipcode Phone Number [facility] CLIA: [id number], [address] [place] [address] [facility] Lipase Serum (04/26/2019 11:49 PM CDT) LIPASE 267 (H) 0 - 220 U/L [facility] Specimen Blood - VENOUS Performing Organization Address City/[facility]/Zipcode Phone Number [facility] CLIA: [id number], [address] [place] [address] [facility] FIBRINOGEN (04/26/2019 11:49 PM CDT) Fibrinogen 281 167 - 453 mg/dL [facility] Specimen Blood - VENOUS Performing Organization Address City/[facility] Phone Number [facility] CLIA: [id number], [address] [place] [address] [facility] [address] aPTT (04/26/2019 11:49 PM CDT) APTT Patient 29 26 - 36 Seconds [facility] Specimen Blood - VENOUS Performing Organization Address [facility] Phone Number [facility] CLIA: [id number], [address] [place] [address] [facility] Troponin I (04/26/2019 11:49 PM CDT) TROPONIN I 0.002 <=0.034 ng/mL [facility] Specimen Blood - VENOUS Narrative Performed At Equal or Less than 0.034 ng/ml---Normal [facility] Note: Cardiac troponin begins to rise 3-4 CAMPUS hours after the onset of ischemia. Repeat in 4-6 hours if the sample was drawn within 3-4 hours of the onset of the symptom and found normal. Between 0.035 and 0.120 ng/mL--- Borderline. Questionable myocardial injury or necrosis Note: Serial measurement may be necessary to confirm or exclude the diagnosis of myocardial injury or necrosis; Clinical correlation (symptoms, EKGs, imaging studies, and others) required; Repeat in 4-6 hours if clinically indicated. Equal or Higher than 0.121 ng/mL---Abnormal. Myocardial Injury or Necrosis Likely Biotin has been reported to cause a negative bias, interpret results relative to patient's use of biotin. Performing Organization Address [facility] Phone Number [facility] CLIA: [id number], [address] [place] [address] [facility] Hepatic Function Panel (ALB, T.PRO, BILI T, BU/BC, ALT, AST, ALK PHOS) (2018 11:49 PM CDT) TOTAL BILI 0.2 0.1 - 1.1 mg/dL [facility] BILI UNCON 0.1 0.1 - 1.1 mg/dL [facility] BILI CONJ 0.0 0.0 - 0.3 mg/dL [facility] T PROTEIN 6.6 6.3 - 8.2 g/dL [facility] ALBUMIN 3.7 3.5 - 5.0 g/dL [facility] ALK PHOS 81 34 - 122 U/L [facility] ALT(SGPT) 35 9 - 51 U/L [facility] AST(SGOT) 38 13 - 40 U/L [facility] Specimen Blood - VENOUS Performing Organization Address [facility] Phone Number [facility] CLIA: [id number], [address] [place] [address] [facility] Basic Metabolic Panel (NA, K, CL, CO2, GLUCOSE, BUN, CREATININE, CA) (2018 11:49 PM CDT) NA 139 135 - 145 mmol/L [facility] K 4.4 3.5 - 5.0 mmol/L [facility] CL 104 98 - 108 mmol/L [facility] CO2 TOTAL 28 23 - 31 mmol/L [facility] AGAP 7 2 - 16 [facility] BUN 15 7 - 23 mg/dL [facility] GLUCOSE 110 70 - 110 mg/dL [facility] CREATININE 0.61 0.50 - 1.04 [facility] mg/dL [facility] CALCIUM 9.2 8.6 - 10.6 mg/dL [facility] eGFR Calculation 104.2 mL/min/1.73m2 [facility] (Non-) [facility] eGFR Calculation 126.3 mL/min/1.73m2 [facility] () [facility] Specimen Blood - VENOUS Narrative Performed At Association of Glomerular Filtration Rate [facility] (GFR) and Staging of Kidney Disease* CAMPUS + + --+ + | GFR (mL/min/1.73 m2)| With Kidney Damage|Without Kidney Damage + + --+ + |>90 |Stage one| Normal + + --+ + |60-89| Stage two| Decreased GFR + + --+ + |30-59| Stage three| Stage three + + --+ + |15-29| Stage four | Stage four + + --+ + |<15 (or dialysis)|Stage five | Stage five + + --+ + *Each stage assumes the associated GFR level has been in effect for at least three months.Stages 1 to 5, with or without kidney disease, indicate chronic kidney disease. Notes: Determination of stages one and two (with eGFR >59mL/min/1.73 m2) requires estimation of kidney damage for at least three months as defined by structural or functional abnormalities of the kidney, manifested by either: Pathological abnormalities or Markers of kidney damage (including abnormalities in the composition of the blood or urine or abnormalities in imaging tests). Performing Organization Address City/State/Zipcode Phone Number [facility] CLIA: [id number], [address] [place] [address] [facility] documented in this encounter Visit Diagnoses Diagnosis Other chest pain - Primary Medication reaction, initial encounter documented in this encounter Insurance Payer Benefit Plan / Subscriber ID Effective Phone Address Type Group Dates ANTHONY CRUZ xxxxxxxxx 2015-[address] [place] [id number] [place] MED[place], [place] documented as of this encounter"
--- OUTSIDE RECORDS SUMMARY | 2019-11-19 05:52 | XMS REPORT | Summary of Care ---
:1970 Author Organization [facility] Address [address] [place] [address] Care Team Providers Name Role Phone Robert Radford MD Unavailable Unavailable Gorge Hagen DO Primary Care Provider Reason for Visit Reason Comments Assessment Rx Concern/Question Encounter Details Date Type Department Care Team Description 04/27/2019 Telephone [facility] Neurology, Kirill Arango V, Assessment; Rx [facility] Concern/Question [address] [place] [phone] Allergies Active Allergy Reactions Severity Noted Date [...] mellitus without complications Overview: ICD10 Diagnosis Term Manager Control Utility documented as of this encounter (statuses [...] Packs/Day Years Used Date Former Smoker Cigarettes 10 05 Quit: 05/28/2013 Smokeless Tobacco: Never Used Alcohol [...] Visit Obstetrics & Gynecology Ileana Cordova MD [address] [place] [address] [address] [phone] 05/06/2019 Office Visit Internal Medicine Bernice Arzate MD [address] [place] [phone] 06/03/2019 Office Visit Gastroenterology Jaciel Boucher MD [address] [place] [address]. [address] [place] [phone] 06/09/2019 Office Visit Endocrinology Diabetes & Sayda Rosas, ORTHO/PROSTHETIC AIDE Metabolism [address] [place] [address] [phone] 08/03/2019 Office Visit Neurology Kirill Arango MD [address] [place], [place] [address], [place] [address] Name Type Priority Associated Diagnoses Order Schedule FERRITIN SERUM LAB Add-on Iron deficiency Expected: 04/27/2019, Expires: 10/27/2019 Health Maintenance Due Date Last Done Comments PNEUMOCOCCAL 0-64 YEARS COMBINED 1975 SERIES (1 of 1 - PPSV23) URINE MICROALBUMIN 1979 EYE EXAM 01/15/2017 01/16/2016 INFLUENZA VACCINE (#1) 2019 06/21/2017 MAMMOGRAM 05/15/2019 05/15/2018, 03/21/2017, 04/17/2016, Additional history exists HgA1C 09/30/2019 03/30/2019, 10/19/2018, 06/08/2018, Additional history exists LDL-C 10/19/2019 10/19/2018, 07/17/2018, 06/08/2018, Additional history exists FOOT EXAM 03/30/2020 03/30/2019, 03/30/2019, 10/19/2018, Additional history exists CREATININE (SERUM) 04/26/2020 04/26/2019, 03/20/2019, 02/08/2019, Additional history exists DTaP,Tdap,and Td Vaccines (2 - 03/19/2027 03/19/2017 Td) PAP SMEAR Discontinued 05/21/2011, 12/09/2006 documented as of this encounter Implants Implanted Type Area Manager Of Construction Device Shelf Model / Identifier Expiration Serial / Lot Date Dbm Sonny Maxxeus .5cc Cts #2014-40 - Sn/A BONE Right: Community Tissue 03/07/2018 / Implanted: Qty: 1 on 08/14/2016 by Biju Middleton at [facility] N/A / [id number] Cement CEMENT Right: Yvonne 08/07/2018 6195-1-001 / Implanted: Qty: 1 on 04/14/2017 by Michael Hernandez MD at [facility] Knee [id number] / [id number] Cr Tibial Bearing KNEE Right: Biomet 02/18/2022 [id number] / Implanted: Qty: 1 on 04/14/2017 by Michael Hernandez MD at [facility] Knee [id number] / [id number] Cr Femoral Right KNEE Right: Biomet 03/17/2027 [id number] / Implanted: Qty: 1 on 04/14/2017 by Michael Hernandez MD at [facility] Knee [id number] / [id number] Primary Tibial Modular Tray KNEE Right: Biomet 01/16/2021 [id number] / Implanted: Qty: 1 on 04/14/2017 by Michael Hernandez MD at [facility] Knee [id number] / [id number] Standard Patella PATELLA Right: Biomet 01/22/2022 [id number] / Implanted: Qty: 1 on 04/14/2017 by Michael Hernandez MD at [facility] Knee [id number] / [id number] Screw Bone Ti 2.7mm Acumed #Co-F2710 - S2 Aug 23 SCREW Right: [employer] CO-F2710 / Implanted: Qty: 2 on 08/14/2016 by Biju Middleton at [facility] 2 16 AUG 23 / NA Description: right mcp joint Screw Bone Ti 2.7mm Acumed #Co-F2712 - S2 Aug 23 SCREW Right: Hand [employer] CO-F2712 / Implanted: Qty: 1 on 08/14/2016 by Biju Middleton at [facility] 2 16 AUG 23 / NA Description: right mcp joint Screw Bone Ti 2.7mm Acumed #Co-F2708 - Sor Sterlization SCREW Right: Hand [employer] CO-F2708 / Implanted: Qty: 1 on 08/14/2016 by Biju Middleton at [facility] OR STERLIZATION / OR STERILIZATION Description: Load # Screw Bone Ti 2.7mm Acumed #Co-F2706 - [id number] SCREW Right: Hand [employer] CO-F2706 / Implanted: Qty: 1 on 08/14/2016 by Biju Middleton at [facility] N/A / N/A Bone Screw SCREW Right: Knee [employer]omet 10/27/2026 [id number] / Implanted: Qty: 1 on 04/14/2017 by Michael Hernandez MD at [facility] [id number] / [id number] Bone Screw SCREW Right: Knee [employer]omet 08/15/2026 [id number] / Implanted: Qty: 1 on 04/14/2017 by Michael Hernandez MD at [facility] [id number] / [id number] Bone Screw SCREW Right: Knee [employer]omet 10/27/2026 [id number] / Implanted: Qty: 1 on 04/14/2017 by Michael Hernandez MD at [facility] [id number] / [id number] Bone Screw SCREW Right: Knee [employer]omet 08/21/2025 [id number] / Implanted: Qty: 1 on 04/14/2017 by Michael Hernandez MD at [facility] [id number] / [id number] Modular Finned Stem Stem Right: Knee [employer]omet 02/12/2027 099724 / Implanted: Qty: 1 on 04/14/2017 by Michael Hernandez MD at [facility] [id number] / [id number] Cammulated Interference Screw Right: Hand Biomet 11/01/2020 [id number] / Implanted: Qty: 2 on 05/06/2016 by Biju Middleton at [facility] [place] AT [facility] N/A / [id number] Mcp Fusion Plate, Right Right: Hand EMERY OVALLES PL-MCPR / Implanted: Qty: 1 on 08/14/2016 by Biju Middleton at [facility] [place] [facility] 2 AUG 23 documented as of this encounter Results Not on filedocumented in this encounter Visit Diagnoses Diagnosis Iron deficiency - Primary Other disorders of iron metabolism documented in this encounter Insurance Payer Benefit Plan / Subscriber ID Effective Phone Address Type Group Dates ANTHONY CRUZ xxxxxxxxx 2015-Srinivasan [address] Medicaid HEALTHCARE - [facility] [place] [address] MANAGED MEDICAID [place] documented as of this encounter
--- OUTSIDE RECORDS SUMMARY | 2019-11-19 05:53 | XMS REPORT | Summary of Care ---
:1970 Author Organization [facility] Address [address] [place] [address] Care Team Providers Name Role Phone Robert Radford MD Unavailable Unavailable Gorge Hagen DO Primary Care Provider Reason for Visit Reason Comments Assessment Rx Concern/Question Encounter Details Date Type Department Care Team Description 04/27/2019 Telephone [facility] Neurology, Kirill Arango V, Assessment; Rx [facility] Concern/Question [address] [place] [phone] Allergies Active Allergy Reactions [...] mellitus without complications Overview: ICD10 Diagnosis Term Training Director Utility documented as of this encounter (statuses [...] Obstetrics & Gynecology Ileana Cordova MD [address] [place] [address] [place] [address] [phone] 05/06/2019 Office Visit Internal Medicine Bernice Arzate MD [address] [place] [phone] 05/19/2019 Appointment Electroneurodiagnostic Kirill Arango MD [address] [place] [phone] 06/03/2019 Office Visit Gastroenterology Jaciel Boucher MD [address] [place] [address]. [address] [place] [phone] 06/09/2019 Office Visit Endocrinology Diabetes & Ralph, Sayda, DRUG ROOM CLERK Metabolism [address] [place] [address] [phone] 08/03/2019 Office Visit Neurology Kirill Arango MD [address] [place] [address] Health Maintenance Due Date Last Done Comments [...] of this encounter Implants Implanted Type Area District Engineer Device Shelf Model / Identifier Expiration Serial / Lot Date Dbm Sonny Maxxeus .5cc Cts #2014-40 - Sn/A BONE Right: Community Tissue 03/07/2018 / Implanted: Qty: 1 on 08/14/2016 by Biju Middleton at [facility] N/A / [id number] Cement CEMENT Right: Yvonne 08/07/2018 6195-1-001 / Implanted: Qty: 1 on 04/14/2017 by Michael Hernandez MD at [facility] Knee [id number] / [id number] Cr Tibial Bearing KNEE Right: Biomet 02/18/2022 [id number] / Implanted: Qty: 1 on 04/14/2017 by Michael Hernandez MD at [facility] Knee [id number] / [id number] Cr Femoral Right KNEE Right: Biomet 03/17/2027 [id number] / Implanted: Qty: 1 on 04/14/2017 by Michael Hernandez MD at [facility] Knee [id number] / [id number] Primary Tibial Modular Tray KNEE Right: Biomet 01/16/2021 [id number] / Implanted: Qty: 1 on 04/14/2017 by Michael Hernandez MD at [facility] Knee [id number] / [id number] Standard Patella PATELLA Right: Biomet 01/22/2022 [id number] / Implanted: Qty: 1 on 04/14/2017 by Michael Hernandez MD at [facility] Knee [id number] / [id number] Screw Bone Ti 2.7mm Acumed #Co-F2710 - S2 Aug 23 SCREW Right: [employer] CO-F2710 / Implanted: Qty: 2 on 08/14/2016 by Biju Middleton at [facility] Hand 2 AUG 23 / NA Description: right mcp joint Screw Bone Ti 2.7mm Acumed #Co-F2712 - S2 Aug 23 SCREW Right: Hand [employer] CO-F2712 / Implanted: Qty: 1 on 08/14/2016 by Biju Middleton at [facility] 2 16 AUG 23 / NA Description: right mcp joint Screw Bone Ti 2.7mm Acumed #Co-F2708 - Sor Sterlization SCREW Right: Hand [employer] CO-F2708 / Implanted: Qty: 1 on 08/14/2016 by Biju Middleton at [facility] OR STERLIZATION / OR STERILIZATION Description: Load # Screw Bone Ti 2.7mm Acumed #Co-F2706 - [id number] SCREW Right: Hand [employer] CO-F2706 / Implanted: Qty: 1 on 08/14/2016 by Biju Middleton at [facility] [facility] N/A / N/A Bone Screw SCREW Right: Knee [employer]omet 10/27/2026 [id number] / Implanted: Qty: 1 on 04/14/2017 by Michael Hernandez MD at [facility] [id number] / [id number] Bone Screw SCREW Right: Knee [employer]omet 08/15/2026 [id number] / Implanted: Qty: 1 on 04/14/2017 by Michael Hernandez MD at [facility] [id number] / [id number] Bone Screw SCREW Right: Knee [employer]omet 10/27/2026 485782 / Implanted: Qty: 1 on 04/14/2017 by Michael Hernandez MD at [facility] [id number] / [id number] Bone Screw SCREW Right: Knee [employer]omet 08/21/2025 599995 / Implanted: Qty: 1 on 04/14/2017 by Michael Hernandez MD at [facility] [id number] / [id number] Modular Finned Stem Stem Right: Knee [employer]omet 02/12/2027 874261 / Implanted: Qty: 1 on 04/14/2017 by Michael Hernandez MD at [facility] [id number] / [id number] Cammulated Interference Screw Right: Hand Biomet 11/01/2020 [id number] / Implanted: Qty: 2 on 05/06/2016 by Biju Middleton at [facility] AT [facility] N/A / [id number] Mcp Fusion Plate, Right Right: Hand [employer]HELLEY[employer] PL-MCPR / Implanted: Qty: 1 on 08/14/2016 by Biju Middleton at [facility] AT [facility] 2 16 DEC 16 / documented as of this encounter Results FERRITIN SERUM (04/26/2019 11:49 PM CDT) FERRITIN 7.6 6.0 - 137.0 ng/mL [facility] Specimen Blood - VENOUS Narrative Performed At [facility] has been reported to cause a [facility] negative bias, interpret results relative to patient's use of biotin. Performing Organization Address City/State/Zipcode Phone Number [facility] CLIA: [id number], [address] [place] [address] SERVICES-[facility] documented in this encounter Visit Diagnoses Diagnosis Iron deficiency - Primary Other disorders of iron metabolism documented in this encounter Insurance Payer Benefit Plan / Subscriber ID Effective Phone Address Type Group Dates ANTHONY CRUZ xxxxxxxxx 2015-Srinivasan [place] Medicaid HEALTHCARE - [facility] [id number] MANAGED MEDICAID [place], [place] documented as of this encounter
--- OUTSIDE RECORDS SUMMARY | 2019-11-19 05:53 | XMS REPORT | Summary of Care ---
:1970 Author Organization [facility] Address [address] [place] [address] Care Team Providers Name Role Phone Robert Radford MD Unavailable Unavailable Gorge Hagen DO Primary Care Provider Reason for Visit Reason Comments Assessment Rx Concern/Question Encounter Details Date Type Department Care Team Description 04/27/2019 Telephone [facility] Neurology, Kirill Arango V, Assessment; Rx [facility] Concern/Question [address] [place] [phone] Allergies Active Allergy Reactions [...] mellitus without complications Overview: ICD10 Diagnosis Term Supervisor [employer] Former Utility documented as of this encounter (statuses [...] Visit Obstetrics & Gynecology Ileana Cordova MD [address] [place] [address] [place] [address] [phone] 05/06/2019 Office Visit Internal Medicine Bernice Arzate MD [address] [place] [phone] 05/19/2019 Appointment Electroneurodiagnostic Kirill Arango MD [address] [place] [phone] 06/03/2019 Office Visit Gastroenterology Jaciel Boucher MD [address] [place] [address]. [address] [place] [phone] 06/09/2019 Office Visit Endocrinology Diabetes & Ralph, Sayda, CHIN STRAP CUTTER Metabolism [address] [place] [address] [phone] 08/03/2019 Office Visit Neurology Kirill Arango MD [address] [place] [address] Health Maintenance Due Date Last Done Comments [...] of this encounter Implants Implanted Type Area Glaze Carrier Device Shelf Model / Identifier Expiration Serial / Lot Date Dbm Sonny Maxxeus .5cc Cts #2014-40 - Sn/A BONE Right: Community Tissue 03/07/2018 / Implanted: Qty: 1 on 08/14/2016 by Biju Middleton at [facility] N/A / [id number] Cement CEMENT Right: Yvonne 08/07/2018 6195-1-001 / Implanted: Qty: 1 on 04/14/2017 by Michael Hernandez MD at [facility] Knee [id number] / [id number] Cr Tibial Bearing KNEE Right: Biomet 02/18/2022 [id number] / Implanted: Qty: 1 on 04/14/2017 by Michael Hernandez MD at [facility] Knee [id number] / [id number] Cr Femoral Right KNEE Right: Biomet 03/17/2027 986115 / Implanted: Qty: 1 on 04/14/2017 by Michael Hernandez MD at [facility] Knee [id number] / [id number] Primary Tibial Modular Tray KNEE Right: Biomet 01/16/2021 [id number] / Implanted: Qty: 1 on 04/14/2017 by Michael Hernandez MD at [facility] Knee [id number] / [id number] Standard Patella PATELLA Right: Biomet 01/22/2022 748741 / Implanted: Qty: 1 on 04/14/2017 by Michael Hernandez MD at [facility] Knee [id number] / [id number] Screw Bone Ti 2.7mm Acumed #Co-F2710 - S2 Aug 23 SCREW Right: [employer] CO-F2710 / Implanted: Qty: 2 on 08/14/2016 by Biju Middleton at [facility] Hand 2 AUG 23 / NA Description: right mcp joint Screw Bone Ti 2.7mm Acumed #Co-F2712 - S2 Aug 23 SCREW Right: Hand [employer] CO-F2712 / Implanted: Qty: 1 on 08/14/2016 by Biju Middleton at [facility] 2 16 AUG 23 / NA Description: right mcp joint Screw Bone Ti 2.7mm Acumed #Co-F2708 - Sor Sterlization SCREW Right: Hand [employer] CO-F2708 / Implanted: Qty: 1 on 08/14/2016 by Biju Middleton at [facility] OR STERLIZATION / OR STERILIZATION Description: Load # Screw Bone Ti 2.7mm Acumed #Co-F2706 - [id number] SCREW Right: Hand [employer] CO-F2706 / Implanted: Qty: 1 on 08/14/2016 by Biju Middleton at [facility] N/A / N/A Bone Screw SCREW Right: Knee Biomet 10/27/2026 [id number] / Implanted: Qty: 1 on 04/14/2017 by Michael Hernandez MD at [facility] [id number] / [id number] Bone Screw SCREW Right: Knee [employer]omet 08/15/2026 [id number] / Implanted: Qty: 1 on 04/14/2017 by Michael Hernandez MD at [facility] [id number] / [id number] Bone Screw SCREW Right: Knee [employer]omet 10/27/2026 275136 / Implanted: Qty: 1 on 04/14/2017 by Michael Hernandez MD at [facility] [id number] / [id number] Bone Screw SCREW Right: Knee [employer]omet 08/21/2025 190215 / Implanted: Qty: 1 on 04/14/2017 by Michael Hernandez MD at [facility] [id number] / [id number] Modular Finned Stem Stem Right: Knee [employer]omet 02/12/2027 091312 / Implanted: Qty: 1 on 04/14/2017 by Michael Hernandez MD at [facility] [id number] / [id number] Cammulated Interference Screw Right: Hand [employer]omet 11/01/2020 [id number] / Implanted: Qty: 2 on 05/06/2016 by Biju Middleton at [facility] N/A / [id number] Mcp Fusion Plate, Right Right: Hand [employer] PL-MCPR / Implanted: Qty: 1 on 08/14/2016 by Biju Middleton at [facility] 2 16 DEC 16 / documented as of this encounter Results FERRITIN SERUM (04/26/2019 11:49 PM CDT) FERRITIN 7.6 6.0 - 137.0 ng/mL [facility] Specimen Blood - VENOUS Narrative Performed At [facility] has been reported to cause a [facility] negative bias, interpret results relative to patient's use of biotin. Performing Organization Address City/State/Zipcode Phone Number [facility] CLIA: [id number], [address] [place] [address] SERVICES-[facility] documented in this encounter Visit Diagnoses Diagnosis Iron deficiency - Primary Other disorders of iron metabolism documented in this encounter Insurance Payer Benefit Plan / Subscriber ID Effective Phone Address Type Group Dates ANTHONY CRUZ xxxxxxxxx 2015-Srinivasan [place] Medicaid HEALTHCARE - [facility] [address] MANAGED MEDICAID [place] documented as of this encounter
--- OUTSIDE RECORDS SUMMARY | 2019-11-19 05:54 | XMS REPORT | Summary of Care ---
:1970 Author Organization [facility] Address [address] [place] [address] Care Team Providers Name Role Phone Robert Radford MD Unavailable Unavailable Gorge Hagen DO Primary Care Provider Reason for Visit Reason Comments Assessment Rx Concern/Question Encounter Details Date Type Department Care Team Description 04/27/2019 Telephone [facility] Neurology, Kirill Arango V, Assessment; Rx [facility] Concern/Question [address] [place] [phone] Allergies Active Allergy Reactions [...] as of this encounter (statuses as of 04/29/2019) Medications Medication Sig Dispensed Refills Start Date [...] as of this encounter (statuses as of 04/29/2019) Active Problems Problem Noted Date Obesity (BMI [...] mellitus without complications Overview: ICD10 Diagnosis Term Elastic Tape Inserter Utility documented as of this encounter (statuses as of 04/29/2019) Resolved Problems Problem Noted Date Resolved Date Type 2 diabetes mellitus 11/26/2013 12/30/2013 documented as of this encounter (statuses as of 04/29/2019) Immunizations Name Administration Dates Next Due Influenza [...] Visit Obstetrics & Gynecology Ileana Cordova MD [address] [place] [address] [place] [address] [phone] 05/06/2019 Office Visit Internal Medicine Bernice Arzate MD [address] [place] [phone] 05/19/2019 Appointment Electroneurodiagnostic Kirill Arango MD [address] [place] [phone] 06/03/2019 Office Visit Gastroenterology Jaciel Boucher MD [address] [place] [address]. [address] [place] [phone] 06/09/2019 Office Visit Endocrinology Diabetes & [place], Sayda, FORGE UTILITY WORKER Metabolism [address] [place] [address] [phone] 08/03/2019 Office Visit Neurology Kirill Arango MD [address] [place] [address] Health Maintenance Due Date Last Done Comments [...] of this encounter Implants Implanted Type Area Ross Carrier Driver Device Shelf Model / Identifier Expiration Serial / Lot Date Dbm Sonny Maxxeus .5cc Cts #2014-40 - Sn/A BONE Right: Community Tissue 03/07/2018 / Implanted: Qty: 1 on 08/14/2016 by Biju Middleton at [facility] N/A / [id number] Cement CEMENT Right: Yvonne 08/07/2018 6195-1-001 / Implanted: Qty: 1 on 04/14/2017 by Michael Hernandez MD at [facility] Knee [id number] / [id number] Cr Tibial Bearing KNEE Right: Biomet 02/18/2022 [id number] / Implanted: Qty: 1 on 04/14/2017 by Michael Hernandez MD at [facility] Knee [id number] / [id number] Cr Femoral Right KNEE Right: Biomet 03/17/2027 [id number] / Implanted: Qty: 1 on 04/14/2017 by Michael Hernandez MD at [facility] Knee [id number] / [id number] Primary Tibial Modular Tray KNEE Right: Biomet 01/16/2021 [id number] / Implanted: Qty: 1 on 04/14/2017 by Michael Hernandez MD at [facility] Knee [id number] / [id number] Standard Patella PATELLA Right: Biomet 01/22/2022 [id number] / Implanted: Qty: 1 on 04/14/2017 by Michael Hernandez MD at [facility] Knee [id number] / [id number] Screw Bone Ti 2.7mm Acumed #Co-F2710 - S2 Aug 23 SCREW Right: [employer] CO-F2710 / Implanted: Qty: 2 on 08/14/2016 by Biju Middleton at [facility] Hand 2 AUG 23 / NA Description: right mcp joint Screw Bone Ti 2.7mm Acumed #Co-F2712 - S2 Aug 23 SCREW Right: Hand [employer] CO-F2712 / Implanted: Qty: 1 on 08/14/2016 by Biju Middleton at [facility] 2 16 AUG 23 / NA Description: right mcp joint Screw Bone Ti 2.7mm Acumed #Co-F2708 - Sor Sterlization SCREW Right: Hand [employer] CO-F2708 / Implanted: Qty: 1 on 08/14/2016 by Biju Middleton at [facility] OR STERLIZATION / OR STERILIZATION Description: Load # Screw Bone Ti 2.7mm Acumed #Co-F2706 - [id number] SCREW Right: Hand [employer] CO-F2706 / Implanted: Qty: 1 on 08/14/2016 by Biju Middleton at [facility] N/A / N/A Bone Screw SCREW Right: Knee [employer] 10/27/2026 [id number] / Implanted: Qty: 1 on 04/14/2017 by Michael Hernandez MD at [facility] [id number] / [id number] Bone Screw SCREW Right: Knee [employer] 08/15/2026 [id number] / Implanted: Qty: 1 on 04/14/2017 by Michael Hernandez MD at [facility] [id number] / [id number] Bone Screw SCREW Right: Knee [employer] 10/27/2026 [id number] / Implanted: Qty: 1 on 04/14/2017 by Michael Hernandez MD at [facility] [id number] / [id number] Bone Screw SCREW Right: Knee [employer] 08/21/2025 [id number] / Implanted: Qty: 1 on 04/14/2017 by Michael Hernandez MD at [facility] [id number] / [id number] Modular Finned Stem Stem Right: Knee [employer] 02/12/2027 [id number] / Implanted: Qty: 1 on 04/14/2017 by Michael Hernandez MD at [facility] [id number] / [id number] Cammulated Interference Screw Right: Hand [employer]omet 11/01/2020 [id number] / Implanted: Qty: 2 on 05/06/2016 by Biju Middleton at [facility] N/A / [id number] Mcp Fusion Plate, Right Right: Hand [employer] PL-MCPR / Implanted: Qty: 1 on 08/14/2016 by Biju Middleton at [facility] AT [facility] 2 16 DEC 16 / documented as of this encounter Results FERRITIN SERUM (04/26/2019 11:49 PM CDT) FERRITIN 7.6 6.0 - 137.0 ng/mL [facility] Specimen Blood - VENOUS Narrative Performed At [facility] has been reported to cause a [facility] negative bias, interpret results relative to patient's use of biotin. Performing Organization Address City/State/Zipcode Phone Number [facility] CLIA: [id number], [address] [place] [address] SERVICES-[facility] documented in this encounter Visit Diagnoses Diagnosis Iron deficiency - Primary Other disorders of iron metabolism documented in this encounter Insurance Payer Benefit Plan / Subscriber ID Effective Phone Address Type Group Dates ANTHONY CURZ xxxxxxxxx 2015-Srinivasan SANTILLAN Medicaid HEALTHCARE - [facility] [id number] MANAGED MEDICAID [place], [place]ICAID [place] documented as of this encounter
--- OUTSIDE RECORDS SUMMARY | 2019-11-19 05:54 | XMS REPORT | Summary of Care ---
:1970 Author Organization [facility] Address [address] [place] [address] Care Team Providers Name Role Phone Robert Radford MD Unavailable Unavailable Gorge Hagen DO Primary Care Provider Reason for Visit Reason Comments Assessment Rx Concern/Question Encounter Details Date Type Department Care Team Description 04/27/2019 Telephone [facility] Neurology, Kirill Arango V, Assessment; Rx [facility] Concern/Question [address] [place] [phone] Allergies Active Allergy Reactions [...] as of this encounter (statuses as of 04/28/2019) Medications Medication Sig Dispensed Refills Start Date [...] as of this encounter (statuses as of 04/28/2019) Active Problems Problem Noted Date Obesity (BMI [...] mellitus without complications Overview: ICD10 Diagnosis Term 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 [address] [phone] 05/06/2019 Office Visit Internal Medicine Bernice Arzate MD [address] [place] [phone] 05/19/2019 Appointment Electroneurodiagnostic Kirill Arango MD [address] [place] [phone] 06/03/2019 Office Visit Gastroenterology Jaciel Boucher MD [address] [place] [address]. [address] [place] [phone] 06/09/2019 Office Visit Endocrinology Diabetes & [place], Sayda, INTERFACE CONTROL OFFICER Metabolism [address] [place] [address] [phone] 08/03/2019 Office Visit Neurology Kirill Arango MD [address] [place] [address] Health Maintenance Due Date Last Done Comments [...] of this encounter Implants Implanted Type Area Field Enumerator Device Shelf Model / Identifier Expiration Serial / Lot Date Dbm Sonny Maxxeus .5cc Cts #2014-40 - Sn/A BONE Right: Community Tissue 03/07/2018 / Implanted: Qty: 1 on 08/14/2016 by Biju Middleton at [facility] N/A / [id number] Cement CEMENT Right: Yvonne 08/07/2018 6195-1-001 / Implanted: Qty: 1 on 04/14/2017 by Michael Hernandez MD at [facility] Knee [id number] / [id number] Cr Tibial Bearing KNEE Right: [employer]omet 02/18/2022 [id number] / Implanted: Qty: 1 on 04/14/2017 by Michael Hernandez MD at [facility] Knee [id number] / [id number] Cr Femoral Right KNEE Right: [employer] 03/17/2027 [id number] / Implanted: Qty: 1 on 04/14/2017 by Michael Hernandez MD at [facility] Knee [id number] / [id number] Primary Tibial Modular Tray KNEE Right: [employer] 01/16/2021 [id number] / Implanted: Qty: 1 on 04/14/2017 by Michael Hernandez MD at [facility] Knee [id number] / [id number] Standard Patella PATELLA Right: [employer] 01/22/2022 [id number] / Implanted: Qty: 1 on 04/14/2017 by Michael Hernandez MD at [facility] Knee [id number] / [id number] Screw Bone Ti 2.7mm Acumed #Co-F2710 - S2 Aug 23 SCREW Right: [employer] CO-F2710 / Implanted: Qty: 2 on 08/14/2016 by Biju Middleton at [facility] Hand 2 AUG 23 / NA Description: right mcp joint Screw Bone Ti 2.7mm Acumed #Co-F2712 - S2 Aug 23 SCREW Right: Hand [employer] CO-F2712 / Implanted: Qty: 1 on 08/14/2016 by Biju Middleton at [facility] 2 16 AUG 23 / NA Description: right mcp joint Screw Bone Ti 2.7mm Acumed #Co-F2708 - Sor Sterlization SCREW Right: Hand [employer] CO-F2708 / Implanted: Qty: 1 on 08/14/2016 by Biju Middleton at [facility] OR STERLIZATION / OR STERILIZATION Description: Load # Screw Bone Ti 2.7mm Acumed #Co-F2706 - [id number] SCREW Right: Hand [employer] CO-F2706 / Implanted: Qty: 1 on 08/14/2016 by Biju Middleton at [facility] N/A / N/A Bone Screw SCREW Right: Knee [employer] 10/27/2026 [id number] / Implanted: Qty: 1 on 04/14/2017 by Michael Hernandez MD at [facility] [id number] / [id number] Bone Screw SCREW Right: Knee [employer] 08/15/2026 [id number] / Implanted: Qty: 1 on 04/14/2017 by Michael Hernandez MD at [facility] [id number] / [id number] Bone Screw SCREW Right: Knee [employer] 10/27/2026 [id number] / Implanted: Qty: 1 on 04/14/2017 by Michael Hernandez MD at [facility] [id number] / [id number] Bone Screw SCREW Right: Knee [employer] 08/21/2025 [id number] / Implanted: Qty: 1 on 04/14/2017 by Michael Hernandez MD at [facility] [id number] / [id number] Modular Finned Stem Stem Right: Knee [employer] 02/12/2027 [id number] / Implanted: Qty: 1 on 04/14/2017 by Michael Hernandez MD at [facility] [id number] / [id number] Cammulated Interference Screw Right: Hand [employer] 11/01/2020 074435 / Implanted: Qty: 2 on 05/06/2016 by Biju Middleton at [facility] N/A / [id number] Mcp Fusion Plate, Right Right: Hand [employer] PL-MCPR / Implanted: Qty: 1 on 08/14/2016 by Biju Middleton at [facility] 2 16 DEC 16 / documented as of this encounter Results FERRITIN SERUM (04/26/2019 11:49 PM CDT) FERRITIN 7.6 6.0 - 137.0 ng/mL [facility] Specimen Blood - VENOUS Narrative Performed At [facility] has been reported to cause a [facility] negative bias, interpret results relative to patient's use of biotin. Performing Organization Address City/State/Zipcode Phone Number [facility] CLIA: [id number], [address] [place] [address] SERVICES-[facility] documented in this encounter Visit Diagnoses Diagnosis Iron deficiency - Primary Other disorders of iron metabolism documented in this encounter Insurance Payer Benefit Plan / Subscriber ID Effective Phone Address Type Group Dates ANTHONY CRUZ xxxxxxxxx 2015-Srinivasan SANTILLAN Medicaid HEALTHCARE - [facility] [id number] MANAGED MEDICAID [place], [place] documented as of this encounter
--- OUTSIDE RECORDS SUMMARY | 2019-11-19 05:55 | XMS REPORT | Summary of Care ---
:1970 Author Organization [facility] Address [address] [place] [id number] Care Team Providers Name Role Phone Robert Radford MD Unavailable Unavailable Gorge Hagen DO Primary Care Provider Reason for Referral (Routine) Status Reason Specialty Diagnoses / Referred By Referred To Procedures Contact Contact New Request Psychiatry Diagnoses Bipolar 1 disorder Insomnia, unspecified type Bernice Arzate Psych Staff-Pcp Procedures CONSULT/REFERRAL PSYCHIATRY ADULT MD [facility] [address] [place] [address], [place], [place] [phone] [place] Phone: [phone] Phone: Reason for Visit Reason Comments Follow-up fatigue Encounter Details Date Type Department Care Team Description 05/06/2019 Office Visit [facility] Internal Bernice Arzate Chronic fatigue (Primary Dx); Medicine- LC MD Trish Neuropathy; [facility] [address] [place] [address] Bipolar 1 disorder; [address] [place], [place], [place] [phone] Allergies Active Allergy Reactions Severity Noted [...] as of this encounter (statuses as of 05/06/2019) Medications Medication Sig Dispensed Refills Start Date [...] lisinopril 20 mg 0 10/18/2018 Active tablet CETIRIZINE 10 mg TAKE 1 TABLET BY [...] mouth every tabletIndications: morning. Hypothyroidism, unspecified type CETIRIZINE 10 mg TAKE 1 TABLET BY 30 tablet 2 02/23/2019 Active tabletIndications: MOUTH EVERY DAY Chronic fatigue, Hypothyroidism, unspecified type dexAMETHasone 1 mg Please take at 1 tablet 0 03/30/2019 Active tabletIndications: 11pm tonight Adrenal nodule DULoxetine Take 1 capsule by 30 capsule 2 05/06/2019 Active (CYMBALTA) 30 mg mouth daily. capsuleIndications : Neuropathy metformin ER 500 Take 1 tablet by 45 tablet 1 10/19/2018 05/06/20 Discontinued mg 24 hr mouth daily with 19 tabletIndications: breakfast. Type 2 diabetes mellitus without complication, without long-term current use of insulin METFORMIN ER 500 TAKE 1 TABLET BY 90 tablet 1 02/23/2019 05/06/20 Discontinued mg 24 hr MOUTH EVERY DAY 19 tabletIndications: WITH BREAKFAST Type 2 diabetes mellitus without complication, without long-term current use of insulin rOPINIRole Take 1 tablet by 15 tablet 0 04/26/2019 05/06/20 Discontinued (REQUIP) 0.5 mg mouth 3 (three) 19 tabletIndications: times daily. RLS (restless legs syndrome) DULoxetine Take 1 capsule by 30 capsule 1 04/26/2019 05/06/20 Discontinued (CYMBALTA) 60 mg mouth daily. 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 documented as of this encounter (statuses as of 05/06/2019) Resolved Problems Problem Noted Date Resolved Date Type 2 diabetes mellitus 11/26/2013 12/30/2013 documented as of this encounter (statuses as of 05/06/2019) Immunizations Name Administration Dates Next Due Influenza [...] Sign Reading Time Taken Comments Blood Pressure 136/76 05/06/2019 9:50 AM CDT Pulse 73 05/06/2019 9:50 AM CDT Temperature 36.2 C (97.1 F) 05/06/2019 9:50 AM CDT Respiratory Rate - - Oxygen Saturation 98% 05/06/2019 9:50 AM CDT Inhaled Oxygen Concentration - - Weight 101 kg (222 lb 11.2 oz) 05/06/2019 9:50 AM CDT Height - - Body Mass Index 40.73 04/26/2019 8:59 AM CDT documented in this encounter Progress Notes Bernice Arzate MD - 05/06/2019 9:45 AM CDT General Internal Medicine [facility] Established Patient visit note Date of service: 05/06/2019 CC: Chief Complaint Patient presents with Follow-up fatigue HPI: Carlee Aguilar is a 48 year old female with PMH as listed below including gastric bypass, hypothyroidism, DM, HTN, IBS who presents in clinic today for f/u fatigue. She was seen by neurology.States that B1 and iron storage levels were abnormal. She was put on supplementation for B1 and iron. Patient states she is working 5 days a week to one day a week. She was also started on cymbalta for nerve pain. She ended up at ED on 04/26/2019 due to chest pain, palpitations-- she had taken cymbalta, lunesta, hydroxyzine, ropinirole in the evening. Work-up was unremarkable. States she has really bad insomnia. Currently on lunesta and hydroxyzine at night. She's been on Lunesta for 8 months. She was previously on temazepam and ambien. 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 On diazepam prn. States has not had severe episode recently. Has not had diazepam in a month. Bipolar, anxiety- patient seen by [facility]. Requesting to be seen at [facility] Psychiatry. Past Medical History: Diagnosis Date Abnormal uterine [...] diabetes mellitus without complication 06/14/2015 Urinary incontinence [place] / [facility] Allergies Allergen Reactions Nsaids (Non-Steroidal Anti-Inflammatory Drug) Unknown - See comments Not allowed to have Iv Contrast [Iodine And Iodide Containing Products] Swelling Patient said that she can and has taken IV contrast successfully before as long as she is premedicated with Benadryl beforehand. She denies any history of anaphylaxis and said that the reaction she usually has when not medicated with Benadryl is hives. Latex Rash Latex gel - patient cannot wear latex gloves - but can tolerate surgeries where latex gloves are worn by care givers. Macrobid [Nitrofurantoin Monohyd/M-Cryst] Rash Sulfa (Sulfonamide Antibiotics) Hives Toradol [Ketorolac Tromethamine] Hives Social History Tobacco Use Smoking status: Former Smoker Packs/day: 1.00 Years: 28.00 Pack years: 28.00 Types: Cigarettes Last attempt to quit: 05/28/2013 Years since quittin.9 Smokeless tobacco: Never Used Substance Use Topics Alcohol use: Yes Alcohol/week: 0.0 oz Comment: Rare Review of systems General: Affirms fatigue Psychiatry: Affirms anxiety, insomnia, bipolar PHYSICAL EXAM: Vitals: 05/06/19 0950 BP: 136/76 BP Location: Left arm Patient Position: Sitting BP CUFF SIZE: Adult Large Pulse: 73 Temp: 36.2 C (97.1 F) TempSrc: Tympanic SpO2: 98% Weight: 222 lb 11.2 oz (101 kg) General: alert, cooperative, oriented, in no acute distress Psychiatry: Appropriate mood and affect ASSESSMENT/PLAN: Carlee Aguilar is a 48 year old female with PMH as listed above who presents in clinic today for f/u fatigue. 1. Chronic fatigue Started on iron and thiamine supplementation. Likely multifactorial from mild anemia and other chronic medical conditions and mental health conditions - Continue iron, thiamine supplementation 2. Neuropathy May have had side effects from multiple medications when added on cymbalta - Scheduled for EMG in 05/2019 - Decrease to DULoxetine (CYMBALTA) 30 mg capsule; Take 1 capsule by mouth daily. - Ok to increase cymbalta to 60 mg if patient tolerating medication - Stop ropinirole (that was prescribed for RLS) - F/u neurology visit in 07/2019 3. Bipolar 1 disorder 4. Insomnia, unspecified type Seen by [facility]-- wishes to be seen at [facility] - For insomnia- discussed with patient likely developed tolerance to sleep meds like ambien and lunesta and that's why she has more trouble sleeping the days she skips the medication-- she is interested in stopping lunesta-- I advised her to do a very slow taper as she has been on these meds for so long- patient verbalized understanding - CONSULT/REFERRAL PSYCHIATRY ADULT 5. Type 2 diabetes - Patient has been off metformin. States occasional hypoglycemic episodes- advise to keep somethingto eat with her during those episodes and call endocrinology for sooner appointment. Follow-up in [address] Hagen for chronic medical conditions Bernice Arzate MD, MPH [facility] Internal Medicine Mic interiano - 05/06/2019 9:45 AM CDT Carlee Aguilar is a 48 year old female Chief Complaint Patient presents with Follow-up documented in this encounter Plan of Treatment Date Type Specialty Care Team Description 05/19/2019 Appointment Electroneurodiagnostic Kirill Arango MD [address] [place] [phone] 06/03/2019 Office Visit Gastroenterology Jaciel Boucher MD [address] [place] [address]. [address] [place] [address] 06/09/2019 Office Visit Endocrinology Diabetes & Sayda Rosas, ELIGIBILITY TECHNICIAN Metabolism [address] [place] [address] [phone] 07/26/2019 Office Visit Internal Medicine Bernice Arzate MD [address] [place] [phone] Gorge Hagen DO [address] [place] [address]. [place] [phone] 08/03/2019 Office Visit Neurology Kirill Arango MD [address] [place] [address] Health Maintenance Due Date Last [...] of this encounter Implants Implanted Type Area Plastic Sheets Supervisor Device Shelf Model / Identifier Expiration Serial / Lot Date Dbm Sonny Maxxeus .5cc Cts #2014-40 - Sn/A BONE Right: Community Tissue 03/07/2018 / Implanted: Qty: 1 on 08/14/2016 by Biju Middleton at [facility] [place] [facility] N/A / [id number] Cement CEMENT Right: Reyno 08/07/2018 6195-1-001 / Implanted: Qty: 1 on 04/14/2017 by Michael Hernandez MD at [facility] Knee [id number] / [id number] Cr Tibial Bearing KNEE Right: [employer] 02/18/2022 [id number] / Implanted: Qty: 1 on 04/14/2017 by Michael Hernandez MD at [facility] Knee [id number] / [id number] Cr Femoral Right KNEE Right: [employer] 03/17/2027 [id number] / Implanted: Qty: 1 on 04/14/2017 by Michael Hernandez MD at [facility] Knee [id number] / [id number] Primary Tibial Modular Tray KNEE Right: [employer] 01/16/2021 [id number] / Implanted: Qty: 1 on 04/14/2017 by Michael Hernandez MD at [facility] Knee [id number] / [id number] Standard Patella PATELLA Right: [employer] 01/22/2022 [id number] / Implanted: Qty: 1 on 04/14/2017 by Michael Hernandez MD at [facility] Knee [id number] / [id number] Screw Bone Ti 2.7mm Acumed #Co-F2710 - S2 Aug 23 SCREW Right: [employer] CO-F2710 / Implanted: Qty: 2 on 08/14/2016 by Biju Middleton at [facility] AT [facility] Hand 2 AUG 23 / NA Description: right mcp joint Screw Bone Ti 2.7mm Acumed #Co-F2712 - S2 Aug 23 SCREW Right: Hand [employer] CO-F2712 / Implanted: Qty: 1 on 08/14/2016 by Biju Middleton at [facility] AT [facility] 2 16 AUG 23 / NA Description: right mcp joint Screw Bone Ti 2.7mm Acumed #Co-F2708 - Sor Sterlization SCREW Right: Hand [employer] CO-F2708 / Implanted: Qty: 1 on 08/14/2016 by Biju Middleton at [facility] AT [facility] OR STERLIZATION / OR STERILIZATION Description: Load # Screw Bone Ti 2.7mm Acumed #Co-F2706 - [id number] SCREW Right: Hand [employer] CO-F2706 / Implanted: Qty: 1 on 08/14/2016 by Biju Middleton at [facility] AT [facility] N/A / N/A Bone Screw SCREW Right: Knee [employer] 10/27/2026 [id number] / Implanted: Qty: 1 on 04/14/2017 by Michael Hernandez MD at [facility] [id number] / [id number] Bone Screw SCREW Right: Knee [employer] 08/15/2026 [id number] / Implanted: Qty: 1 on 04/14/2017 by Michael Hernandez MD at [facility] [id number] / [id number] Bone Screw SCREW Right: Knee [employer] 10/27/2026 [id number] / Implanted: Qty: 1 on 04/14/2017 by Michael Hernandez MD at [facility] [id number] / [id number] Bone Screw SCREW Right: Knee [employer] 08/21/2025 [id number] / Implanted: Qty: 1 on 04/14/2017 by Michael Hernandez MD at [facility] [id number] / [id number] Modular Finned Stem Stem Right: Knee [employer] 02/12/2027 [id number] / Implanted: Qty: 1 on 04/14/2017 by Michael Hernandez MD at [facility] [id number] / [id number] Cammulated Interference Screw Right: Hand [employer] 11/01/2020 [id number] / Implanted: Qty: 2 on 05/06/2016 by Biju Middleton at [facility] AT [facility] N/A / [id number] Mcp Fusion Plate, Right Right: Hand [employer] PL-MCPR / Implanted: Qty: 1 on 08/14/2016 by Biju Middleton at [facility] AT [facility] 2 16 AUG 23 documented as of this encounter Results Not on filedocumented in this encounter Visit Diagnoses Diagnosis Chronic fatigue - Primary Other malaise and fatigue Neuropathy Mononeuritis of unspecified site Bipolar 1 disorder Bipolar I disorder, most recent episode (or current) unspecified Insomnia, unspecified type documented in this encounter Insurance Payer Benefit Plan / Subscriber ID Effective Phone Address Type Group Dates ANTHONY CRUZ xxxxxxxxx 2015-Srinivasan SANTILLAN [place] [id number] [place]NAGED MEDICA[place], [place] documented as of this encounter
--- OUTSIDE RECORDS SUMMARY | 2019-11-19 05:55 | XMS REPORT | Summary of Care ---
:1970 Author Organization [facility] Address [address] [place] [id number] Care Team Providers Name Role Phone Robert Radford MD Unavailable Unavailable Gorge Hagen DO Primary Care Provider Reason for Referral (Routine) Status Reason Specialty Diagnoses / Referred By Referred To Procedures Contact Contact New Request Psychiatry Diagnoses Bipolar 1 disorder Insomnia, unspecified type Bernice Arzate Psych Staff-Pcp Procedures CONSULT/REFERRAL PSYCHIATRY ADULT MD [facility] [address] [place] [address], [place], [place] [address] [phone] [place] Phone: [phone] Phone: Reason for Visit Reason Comments Follow-up fatigue Encounter Details Date Type Department Care Team Description 05/06/2019 Office Visit [facility] Internal Berince Arzate Chronic fatigue (Primary Dx); Medicine- LC MD Trish Neuropathy; [facility] [address] [place] [address] Bipolar 1 disorder; [address] [place], [place], [place] [phone] Allergies Active Allergy Reactions [...] mellitus without complications Overview: ICD10 Diagnosis Term 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 Bipolar, anxiety- patient seen by [facility]. Requesting to be seen at [facility] Psychiatry. Past Medical History: Diagnosis Date Abnormal [...] diabetes mellitus without complication 06/14/2015 Urinary incontinence [place] / [facility] Allergies Allergen Reactions Nsaids (Non-Steroidal Anti-Inflammatory Drug) [...] disorder 4. Insomnia, unspecified type Seen by [facility]-- wishes to be seen at [facility] - For insomnia- discussed with patient likely [...] chronic medical conditions Bernice Arzate MD, MPH [facility] Internal Medicine Mic interiano - 05/06/2019 9:45 AM CDT Carlee Aguilar is a 48 year old female Chief Complaint Patient presents with Follow-up documented in this encounter Plan of Treatment Date Type Specialty Care Team Description 05/19/2019 Appointment Electroneurodiagnostic Kirill Arango MD [address] [place] [phone] 06/03/2019 Office Visit Gastroenterology Jaciel Boucher MD [address] [place] [address]. [address] [place] [address] 06/09/2019 Office Visit Endocrinology Diabetes & Sayda Rosas, STILL CLEANER Metabolism [address] [place] [address] [phone] 07/26/2019 Office Visit Internal Medicine Bernice Arzate MD [address] [place] [phone] Gorge Hagen DO [address] [place] [address]. [place] [phone] 08/03/2019 Office Visit Neurology Kirill Arango MD [address] [place] [address] Health Maintenance Due Date Last [...] of this encounter Implants Implanted Type Area Health Insurance Specialist Device Shelf Model / Identifier Expiration Serial / Lot Date Dbm Sonny Maxxeus .5cc Cts #2014-40 - Sn/A BONE Right: Community Tissue 03/07/2018 / Implanted: Qty: 1 on 08/14/2016 by Biju Middleton at [facility] [place] AT [facility] N/A / [id number] Cement CEMENT Right: [place] 08/07/2018 6195-1-001 / Implanted: Qty: 1 on 04/14/2017 by Michael Hernandez MD at [facility] Knee [id number] / [id number] Cr Tibial Bearing KNEE Right: [employer] 02/18/2022 [id number] / Implanted: Qty: 1 on 04/14/2017 by Michael Hernandez MD at [facility] Knee [id number] / [id number] Cr Femoral Right KNEE Right: [employer] 03/17/2027 [id number] / Implanted: Qty: 1 on 04/14/2017 by Michael Hernandez MD at [facility] Knee [id number] / [id number] Primary Tibial Modular Tray KNEE Right: [employer] 01/16/2021 [id number] / Implanted: Qty: 1 on 04/14/2017 by Michael Hernandez MD at [facility] Knee [id number] / [id number] Standard Patella PATELLA Right: [employer] 01/22/2022 [id number] / Implanted: Qty: 1 on 04/14/2017 by Michael Hernandez MD at [facility] Knee [id number] / [id number] Screw Bone Ti 2.7mm Acumed #Co-F2710 - S2 Aug 23 SCREW Right: [employer] CO-F2710 / Implanted: Qty: 2 on 08/14/2016 by Biju Middleton at [facility] Hand 2 AUG 23 / NA Description: right mcp joint Screw Bone Ti 2.7mm Acumed #Co-F2712 - S2 Aug 23 SCREW Right: Hand [employer] CO-F2712 / Implanted: Qty: 1 on 08/14/2016 by Biju Middleton at [facility] 2 16 AUG 23 / NA Description: right mcp joint Screw Bone Ti 2.7mm Acumed #Co-F2708 - Sor Sterlization SCREW Right: Hand [employer] CO-F2708 / Implanted: Qty: 1 on 08/14/2016 by Biju Middleton at [facility] OR STERLIZATION / OR STERILIZATION Description: Load # Screw Bone Ti 2.7mm Acumed #Co-F2706 - [id number] SCREW Right: Hand [employer] CO-F2706 / Implanted: Qty: 1 on 08/14/2016 by Biju Middleton at [facility] N/A / N/A Bone Screw SCREW Right: Knee [employer] 10/27/2026 [id number] / Implanted: Qty: 1 on 04/14/2017 by Michael Hernandez MD at [facility] [id number] / [id number] Bone Screw SCREW Right: Knee [employer] 08/15/2026 [id number] / Implanted: Qty: 1 on 04/14/2017 by Michael Hernandez MD at [facility] [id number] / [id number] Bone Screw SCREW Right: Knee [employer] 10/27/2026 [id number] / Implanted: Qty: 1 on 04/14/2017 by Michael Hernandez MD at [facility] [id number] / [id number] Bone Screw SCREW Right: Knee [employer] 08/21/2025 [id number] / Implanted: Qty: 1 on 04/14/2017 by Michael Hernandez MD at [facility] [id number] / [id number] Modular Finned Stem Stem Right: Knee [employer] 02/12/2027 [id number] / Implanted: Qty: 1 on 04/14/2017 by Michael Hernandez MD at [facility] [id number] / [id number] Cammulated Interference Screw Right: Hand [employer] 11/01/2020 [id number] / Implanted: Qty: 2 on 05/06/2016 by Biju Middleton at [facility] N/A / [id number] Mcp Fusion Plate, Right Right: Hand [employer] PL-MCPR / Implanted: Qty: 1 on 08/14/2016 by Biju Middleton at [facility] 2 16 AUG 23 documented [...] 2015-Srinivasan SANTILLAN [place] [id number] [place] MEDICA[place] documented as of this encounter
--- OUTSIDE RECORDS SUMMARY | 2019-11-19 05:56 | XMS REPORT | Summary of Care ---
:1970 Author Organization [facility] Address [address] [place] [address] Care Team Providers Name Role Phone Robert Radford MD Unavailable Unavailable Gorge aHgen DO Primary Care Provider Encounter Details Date Type Department Care Team Description 04/05/2019 Patient Secure Msg [facility] MyChart Messages Doctor Unassigned, [address] [place] [address] [place] [phone] [place] [address] [place] [address] Allergies Active Allergy Reactions Severity Noted Date [...] as of this encounter (statuses as of 05/08/2019) Medications Medication Sig Dispensed Refills Start Date [...] tabletIndications: mouth every Hypothyroidism, morning. unspecified type CETIRIZINE 10 mg TAKE 1 TABLET BY 30 tablet 2 02/23/2019 Active tabletIndications: MOUTH EVERY DAY Chronic fatigue, Hypothyroidism, unspecified type dexAMETHasone 1 mg Please take at 11pm 1 tablet 0 03/30/2019 Active tabletIndications: tonight Adrenal nodule documented as of this encounter (statuses as of 05/08/2019) Active Problems Problem Noted Date Obesity (BMI [...] mellitus without complications Overview: ICD10 Diagnosis Term Repairer General Utility documented as of this encounter (statuses as of 05/08/2019) Resolved Problems Problem Noted Date Resolved Date Type 2 diabetes mellitus 11/26/2013 12/30/2013 documented as of this encounter (statuses as of 05/08/2019) Immunizations Name Administration Dates Next Due Influenza [...] Description 05/19/2019 Appointment Electroneurodiagnostic Kirill Arango MD [address] [place] [phone] 06/03/2019 Office Visit Gastroenterology Jaciel Boucher MD [address] [place] [address]. [address] [place] [phone] 06/09/2019 Office Visit Endocrinology Diabetes & Sayda Rosas, BLOOD BANK BUSINESS MANAGER Metabolism [address] [place], [place] [phone] 07/26/2019 Office Visit Internal Medicine Bernice Arzate MD [address] [place] [phone] Gorge Hagen DO [address] [place] [address]. [place] [phone] 08/03/2019 Office Visit Neurology Kirill Arango MD [address] [place] [phone] Health Maintenance Due Date Last Done [...] of this encounter Implants Implanted Type Area Corral Boss Device Shelf Model / Identifier Expiration Serial / Lot Date Dbm Sonny Maxxeus .5cc Cts #2014-40 - Sn/A BONE Right: Community Tissue 03/07/2018 / Implanted: Qty: 1 on 08/14/2016 by Biju Middleton at [facility] N/A / [id number] Cement CEMENT Right: [employer] 08/07/2018 6195-1-001 / Implanted: Qty: 1 on 04/14/2017 by Michael Hernandez MD at [facility] Knee [id number] / [id number] Cr Tibial Bearing KNEE Right: Biomet 02/18/2022 [id number] / Implanted: Qty: 1 on 04/14/2017 by Michael Hernandez MD at [facility] Knee [id number] / [id number] Cr Femoral Right KNEE Right: Biomet 03/17/2027 [id number] / Implanted: Qty: 1 on 04/14/2017 by Michael Hernandez MD at [facility] Knee [id number] / [id number] Primary Tibial Modular Tray KNEE Right: [employer] 01/16/2021 [id number] / Implanted: Qty: 1 on 04/14/2017 by Michael Hernandez MD at [facility] Knee [id number] / [id number] Standard Patella PATELLA Right: Biomet 01/22/2022 [id number] / Implanted: Qty: 1 on 04/14/2017 by Michael Hernandez MD at [facility] Knee [id number] / [id number] Screw Bone Ti 2.7mm Acumed #Co-F2710 - S2 Aug 23 SCREW Right: [employer] CO-F2710 / Implanted: Qty: 2 on 08/14/2016 by Biju Middleton at [facility] Hand 2 16 AUG 23 / NA Description: right mcp joint Screw Bone Ti 2.7mm Acumed #Co-F2712 - S2 Aug 23 SCREW Right: Hand [employer] CO-F2712 / Implanted: Qty: 1 on 08/14/2016 by Biju Middleton at [facility] 2 16 AUG 23 / NA Description: right mcp joint Screw Bone Ti 2.7mm Acumed #Co-F2708 - Sor Sterlization SCREW Right: Hand [employer] CO-F2708 / Implanted: Qty: 1 on 08/14/2016 by Biju Middleton at [facility] OR STERLIZATION / OR STERILIZATION Description: Load # Screw Bone Ti 2.7mm Acumed #Co-F2706 - [id number] SCREW Right: Hand [employer] CO-F2706 / Implanted: Qty: 1 on 08/14/2016 by Biju Middleton at [facility] N/A / N/A Bone Screw SCREW Right: Knee [employer] 10/27/2026 [id number] / Implanted: Qty: 1 on 04/14/2017 by Michael Hernandez MD at [facility] [id number] / [id number] Bone Screw SCREW Right: Knee [employer] 08/15/2026 [id number] / Implanted: Qty: 1 on 04/14/2017 by Michael Hernandez MD at [facility] [id number] / [id number] Bone Screw SCREW Right: Knee [employer] 10/27/2026 [id number] / Implanted: Qty: 1 on 04/14/2017 by Michael Hernandez MD at [facility] [id number] / [id number] Bone Screw SCREW Right: Knee [employer] 08/21/2025 [id number] / Implanted: Qty: 1 on 04/14/2017 by Michael Hernandez MD at [facility] [id number] / [id number] Modular Finned Stem Stem Right: Knee [employer] 02/12/2027 [id number] / Implanted: Qty: 1 on 04/14/2017 by Michael Hernandez MD at [facility] [id number] / [id number] Cammulated Interference Screw Right: Hand [employer] 11/01/2020 [id number] / Implanted: Qty: 2 on 05/06/2016 by Biju Middleton at [facility] N/A / [id number] Mcp Fusion Plate, Right Right: Hand [employer] PL-MCPR / Implanted: Qty: 1 on 08/14/2016 by Biju Middleton at [facility] 2 AUG 23 documented as of this encounter Results Not on filedocumented in this encounter Insurance Payer Benefit Plan / Subscriber ID Effective Phone Address Type Group Dates ANTHONY CRUZ xxxxxxxxx 2015-Srinivasan SANTILLAN Medicaid HEALTHCARE - [facility] [place] [place] [id number] MANAGED MEDICAID [place] documented as of this encounter
--- OUTSIDE RECORDS SUMMARY | 2019-11-19 05:56 | XMS REPORT | Summary of Care ---
:1970 Author Organization [facility] Address [address] [place] [address] Care Team Providers Name Role Phone Robert Radford MD Unavailable Unavailable Gorge Hagen DO Primary Care Provider Encounter Details Date Type Department Care Team Description 04/15/2019 Patient Secure Msg [facility] MyChart Messages Doctor Unassigned, [address] [place] [address] [place] [phone] [place] [address] [place] [address] Allergies Active Allergy Reactions Severity Noted Date [...] as of this encounter (statuses as of 05/22/2019) Medications Medication Sig Dispensed Refills Start Date [...] as of this encounter (statuses as of 05/22/2019) Active Problems Problem Noted Date Obesity (BMI [...] mellitus without complications Overview: ICD10 Diagnosis Term Biomedical Analytical Scientist Utility documented as of this encounter (statuses as of 05/22/2019) Resolved Problems Problem Noted Date Resolved Date Type 2 diabetes mellitus 11/26/2013 12/30/2013 documented as of this encounter (statuses as of 05/22/2019) Immunizations Name Administration Dates Next Due Influenza [...] Treatment Date Type Specialty Care Team Description 06/03/2019 Office Visit Gastroenterology Jaciel Boucher MD [address] [place] [address]. [address] [place] [phone] 06/09/2019 Office Visit Endocrinology Diabetes & Sayda Rosas, [facility] Metabolism [address] [place], [place] [address] 06/21/2019 Office Visit OB Satellites Imelda Ignacio, [facility] [address] [place], [place] [address] 07/26/2019 Office Visit Internal Medicine Bernice Arzate MD [address] [place] [phone] Gorge Hagen DO [address] [place] [phone] 08/03/2019 Office Visit Neurology Kirill Arango MD [address] [place] [phone] Health Maintenance Due Date Last Done Comments [...] of this encounter Implants Implanted Type Area Technical Operator Device Shelf Model / Identifier Expiration Serial / Lot Date Dbm Sonny Maxxeus .5cc Cts #2014-40 - Sn/A BONE Right: Community Tissue 03/07/2018 / Implanted: Qty: 1 on 08/14/2016 by Biju Middleton at [facility] N/A / [id number] Cement CEMENT Right: Yvonne 08/07/2018 6195-1-001 / Implanted: Qty: 1 on 04/14/2017 by Michael Hernandez MD at [facility] Knee [id number] / [id number] Cr Tibial Bearing KNEE Right: [employer] 02/18/2022 [id number] / Implanted: Qty: 1 on 04/14/2017 by Michael Hernandez MD at [facility] Knee [id number] / [id number] Cr Femoral Right KNEE Right: [employer] 03/17/2027 [id number] / Implanted: Qty: 1 on 04/14/2017 by Michael Hernandez MD at [facility] Knee [id number] / [id number] Primary Tibial Modular Tray KNEE Right: [employer] 01/16/2021 [id number] / Implanted: Qty: 1 on 04/14/2017 by Michael Hernandez MD at [facility] Knee [id number] / [id number] Standard Patella PATELLA Right: [employer] 01/22/2022 [id number] / Implanted: Qty: 1 on 04/14/2017 by Michael Hernandez MD at [facility] Knee [id number] / [id number] Screw Bone Ti 2.7mm Acumed #Co-F2710 - S2 Aug 23 SCREW Right: [employer] CO-F2710 / Implanted: Qty: 2 on 08/14/2016 by Biju Middleton at [facility] Hand 2 16 AUG 23 / NA Description: right mcp joint Screw Bone Ti 2.7mm Acumed #Co-F2712 - S2 16 Aug 23 SCREW Right: Hand [employer] CO-F2712 / Implanted: Qty: 1 on 08/14/2016 by Biju Middleton at [facility] 2 16 AUG 23 / NA Description: right mcp joint Screw Bone Ti 2.7mm Acumed #Co-F2708 - Sor Sterlization SCREW Right: Hand [employer] CO-F2708 / Implanted: Qty: 1 on 08/14/2016 by Biju Middleton at [facility] OR STERLIZATION / OR STERILIZATION Description: Load # Screw Bone Ti 2.7mm Acumed #Co-F2706 - [id number] SCREW Right: Hand [employer] CO-F2706 / Implanted: Qty: 1 on 08/14/2016 by Biju Middleton at [facility] N/A / N/A Bone Screw SCREW Right: Knee [employer] 10/27/2026 [id number] / Implanted: Qty: 1 on 04/14/2017 by Michael Hernandez MD at [facility] [id number] / [id number] Bone Screw SCREW Right: Knee [employer] 08/15/2026 [id number] / Implanted: Qty: 1 on 04/14/2017 by Michael Hernandez MD at [facility] [id number] / [id number] Bone Screw SCREW Right: Knee [employer] 10/27/2026 [id number] / Implanted: Qty: 1 on 04/14/2017 by Michael Hernandez MD at [facility] [id number] / [id number] Bone Screw SCREW Right: Knee [employer] 08/21/2025 186442 / Implanted: Qty: 1 on 04/14/2017 by Michael Hernandez MD at [facility] [id number] / [id number] Modular Finned Stem Stem Right: Knee [employer] 02/12/2027 [id number] / Implanted: Qty: 1 on 04/14/2017 by Michael Hernandez MD at [facility] [id number] / [id number] Cammulated Interference Screw Right: Hand [employer] 11/01/2020 [id number] / Implanted: Qty: 2 on 05/06/2016 by Biju Middleton at [facility] N/A / [id number] Mcp Fusion Plate, Right Right: Hand [employer] PL-MCPR / Implanted: Qty: 1 on 08/14/2016 by Biju Middleton at [facility] 2 AUG 23 documented as of this encounter Results Not on filedocumented in this encounter Insurance Payer Benefit Plan / Subscriber ID Effective Phone Address Type Group Dates ANTHONY CRUZ xxxxxxxxx 2015-Srinivasan SANTILLAN Medicaid HEALTHCARE - [facility] [id number] MANAGED MEDICAID [place], [place] documented as of this encounter
--- OUTSIDE RECORDS SUMMARY | 2019-11-19 05:56 | XMS REPORT | Summary of Care ---
:1970 Author Organization [facility] Address [address] [place] [address] Care Team Providers Name Role Phone Robert Radford MD Unavailable Unavailable Margo Hagenit Primary Care Provider Reason for Referral (Routine) Status Reason Specialty Diagnoses / Referred By Referred To Procedures Contact Contact Closed Electroneurodiagnostic Diagnoses Neuropathy G62.9 (ICD-10-CM) [id number] 78034 Arango Chilvjustin Erendira-Vtc Emg/Ncv Procedures EMGNCV NE MOTOR &/SENS 5-6 NRV CNDJ PRECONF ELTRODE LIMB NE NEEDLE EMG EA EXTREMTY W/PARASPINL AREA BALBIR Gallagher MD Proced [address] [address] [place] [address] Phone: [phone] Phone: (Routine) Status Reason Specialty Diagnoses / Referred By Referred To Procedures Contact Contact Closed Electroneurodiagnostic Diagnoses Neuropathy G62.9 (ICD-10-CM) 16371 25337 Arango Chilvana Erendira-Vtc Emg/Ncv Procedures EMGNCV NE MOTOR &/SENS 5-6 NRV CNDJ PRECONF ELTRODE LIMB NE NEEDLE EMG EA EXTREMTY W/PARASPINL AREA COMPLETE MD Elliott Proced [address] [address] [place] [address] Phone: [phone] Phone: Reason for Visit (Routine) Status Reason Specialty Diagnoses / Referred By Referred To Procedures Contact Contact Closed Electroneurodiagnostic Diagnoses Neuropathy G62.9 (ICD-10-CM) 42470 81115 Kirill Arango Erendira-Vtc Emg/Ncv Procedures EMGNCV NE MOTOR &/SENS 5-6 NRV CNDJ PRECONF ELTRODE LIMB NE NEEDLE EMG EA EXTREMTY W/PARASPINL AREA COMPLETE Elliott, [place] [address] [place], [place] [phone] [place] [address] Phone: [phone] Phone: Encounter Details Date Type Department Care Team Description 05/19/2019 Hospital Encounter [facility] Kirill Arango Elliott, Neuropathy Neurodiagnostics, [address] [address] [place], [place] [address] [place] [phone] Allergies Active Allergy Reactions Severity Noted [...] as of this encounter (statuses as of 05/20/2019) Medications Medication Sig Dispensed Refills Start Date [...] 0 03/30/2019 Active tabletIndications: tonight Adrenal nodule DULoxetine Take 1 capsule by 30 capsule 2 05/06/2019 Active (CYMBALTA) 30 mg mouth daily. capsuleIndications: Neuropathy documented as of this encounter (statuses as of 05/20/2019) Active Problems Problem Noted Date Obesity (BMI [...] mellitus without complications Overview: ICD10 Diagnosis Term Want Ad Clerk Utility documented as of this encounter (statuses as of 05/20/2019) Resolved Problems Problem Noted Date Resolved Date Type 2 diabetes mellitus 11/26/2013 12/30/2013 documented as of this encounter (statuses as of 05/20/2019) Immunizations Name Administration Dates Next Due Influenza [...] 06/03/2019 Office Visit Gastroenterology Jaciel Boucher MD [address] [place] [address]. [address] [place] [phone] 06/09/2019 Office Visit Endocrinology Diabetes & Sayda Rosas, STAVE LOG CUT OFF SAW OPERATOR Metabolism [address] [place], [place] [address] 07/26/2019 Office Visit Internal Medicine Bernice Arzate MD [address] [place] [phone] Gorge Hagen DO [address] [place] [phone] 08/03/2019 Office Visit Neurology Kirill Arango MD [address] [place] [phone] Health Maintenance Due Date Last Done Comments [...] of this encounter Implants Implanted Type Area Reed Maker Device Shelf Model / Identifier Expiration Serial / Lot Date Dbm Sonny Maxxeus .5cc Cts #2014-40 - Sn/A BONE Right: Community Tissue 03/07/2018 / Implanted: Qty: 1 on 08/14/2016 by Biju Middleton at [facility] N/A / [id number] Cement CEMENT Right: [employer] 08/07/2018 6195-1-001 / Implanted: Qty: 1 on 04/14/2017 by Michael Hernandez MD at [facility] Knee [id number] / [id number] Cr Tibial Bearing KNEE Right: [employer] 02/18/2022 [id number] / Implanted: Qty: 1 on 04/14/2017 by Michael Hernandez MD at [facility] Knee [id number] / [id number] Cr Femoral Right KNEE Right: [employer] 03/17/2027 [id number] / Implanted: Qty: 1 on 04/14/2017 by Michael Hernandez MD at [facility] Knee [id number] / [id number] Primary Tibial Modular Tray KNEE Right: [employer] 01/16/2021 [id number] / Implanted: Qty: 1 on 04/14/2017 by Michael Hernandez MD at [facility] Knee [id number] / [id number] Standard Patella PATELLA Right: [employer] 01/22/2022 565591 / Implanted: Qty: 1 on 04/14/2017 by Michael Hernandez MD at [facility] Knee [id number] / [id number] Screw Bone Ti 2.7mm Acumed #Co-F2710 - S2 Aug 23 SCREW Right: [employer] CO-F2710 / Implanted: Qty: 2 on 08/14/2016 by Biju Middleton at [facility] Hand 2 16 AUG 23 / NA Description: right mcp joint Screw Bone Ti 2.7mm Acumed #Co-F2712 - S2 Aug 23 SCREW Right: Hand [employer] CO-F2712 / Implanted: Qty: 1 on 08/14/2016 by Biju Middleton at [facility] 2 16 AUG 23 / NA Description: right mcp joint Screw Bone Ti 2.7mm Acumed #Co-F2708 - Sor Sterlization SCREW Right: Hand [employer] CO-F2708 / Implanted: Qty: 1 on 08/14/2016 by Biju Middleton at [facility] OR STERLIZATION / OR STERILIZATION Description: Load # Screw Bone Ti 2.7mm Acumed #Co-F2706 - [id number] SCREW Right: Hand [employer] CO-F2706 / Implanted: Qty: 1 on 08/14/2016 by Biju Middleton at [facility] N/A / N/A Bone Screw SCREW Right: Knee [employer] 10/27/2026 [id number] / Implanted: Qty: 1 on 04/14/2017 by Michael Hernandez MD at [facility] [id number] / [id number] Bone Screw SCREW Right: Knee [employer] 08/15/2026 [id number] / Implanted: Qty: 1 on 04/14/2017 by Michael Hernandez MD at [facility] [id number] / [id number] Bone Screw SCREW Right: Knee [employer] 10/27/2026 [id number] / Implanted: Qty: 1 on 04/14/2017 by Michael Hernandez MD at [facility] [id number] / [id number] Bone Screw SCREW Right: Knee [employer] 08/21/2025 [id number] / Implanted: Qty: 1 on 04/14/2017 by Michael Hernandez MD at [facility] [id number] / [id number] Modular Finned Stem Stem Right: Knee [employer] 02/12/2027 146190 / Implanted: Qty: 1 on 04/14/2017 by Michael Hernandez MD at [facility] [id number] / [id number] Cammulated Interference Screw Right: Hand [employer] 11/01/2020 [id number] / Implanted: Qty: 2 on 05/06/2016 by Biju Middleton at [facility] N/A / [id number] Mcp Fusion Plate, Right Right: Hand [employer] PL-MCPR / Implanted: Qty: 1 on 08/14/2016 by Biju Middleton at [facility] 2 16 16 DEC documented as of this encounter Procedures Procedure Name Priority Date/Time Associated Diagnosis Comments EMG/NCV Routine 05/19/2019 10:12 AM CDT Neuropathy documented in this encounter Results Not on filedocumented in this encounter Visit Diagnoses Diagnosis Neuropathy Mononeuritis of unspecified site documented in this encounter Insurance Payer Benefit Plan / Subscriber ID Effective Phone Address Type Group Dates CRUZ CRUZ xxxxxxxxx 2015-Srinivasan SANTILLAN Medicaid HEALTHCARE - [facility] [address] MANAGED MEDICAID [place], [place] documented as of this encounter
--- OUTSIDE RECORDS SUMMARY | 2019-11-19 05:57 | XMS REPORT | Summary of Care ---
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 [place] [phone] Phone: MRI/CAT Scan (STAT) Status Reason Specialty Diagnoses / Referred By Referred To Procedures Contact Contact New Request Diagnostic Diagnoses Left upper quadrant pain Ib[place]unle, Radiology Procedures CT ABDOMEN PELVIS WO CONTRAST Folusho F, BUSINESS SERVICES SALES AGENT [address] [place] [address] MRI/CAT Scan (STAT) Status Reason Specialty Diagnoses / Referred By Referred To Procedures Contact Contact New Request Diagnostic Diagnoses Left upper quadrant pain Ibikunle, Radiology Procedures CT ABDOMEN PELVIS WO CONTRAST Folusho F, BUSINESS SERVICES SALES AGENT [address] [place] [phone] Reason for Visit Reason Comments Abdominal Pain Auth/Cert Status Reason Specialty Diagnoses / Referred By Referred To Procedures Contact Contact Emergency Medicine [facility] Dept [address] [place] [address] Encounter Details Date Type Department Care Team Description 05/26/2019 Emergency [facility]Emergency Deena Weiner Left upper quadrant pain (Primary Dx); Department F, BUSINESS SERVICES SALES AGENT Nausea and vomiting in adult patient [address] [facility] [address] [phone] Allergies Active Allergy Reactions Severity Noted Date [...] latex gloves are worn by care givers. Nsaids (Non-Steroidal Unknown - See High 06/08/2018 Not allowed to have Anti-Inflammatory Drug) comments Sulfa (Sulfonamide Hives 11/18/2014 Antibiotics) Ketorolac Tromethamine Hives 11/26/2013 documented as of this encounter (statuses as of 05/26/2019) Medications Medication Sig Dispensed Refills Start Date [...] Active 3350 (MIRALAX) 17 mouth as needed gram for Constipation. powderIndications: Chronic fatigue, Hypothyroidism, [...] gram solutionIndications: Rectal pain hydrocortisone-pramo Insert 1 10 g 1 02/04/2019 Active vine (PROCTOFOAM HC) Applicator into rectal rectum 2 (two) foamIndications: times daily. Rectal pain pantoprazole sodium Take by mouth. [...] (CYMBALTA) 30 mg mouth daily. capsuleIndications: Neuropathy dicyclomine 20 mg Take 1 tablet by 56 tablet 0 05/26/2019 06/09/2019 Active tabletIndications: mouth 4 (four) Left upper quadrant times daily for 14 pain, Nausea and days. vomiting in adult patient traMADol 50 mg Take 1 tablet by 12 tablet 0 05/26/2019 Active tabletIndications: mouth every 6 Left upper quadrant (six) hours as pain, Nausea and needed for Pain vomiting in adult (scale 4-6). patient ondansetron 4 mg Take 1 tablet by 12 tablet 0 05/26/2019 Active tabletIndications: mouth every 8 Left upper quadrant (eight) hours as pain, Nausea and needed for Nausea vomiting in adult and Vomiting patient (N/V). 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 documented as of this encounter (statuses as of 05/26/2019) Resolved Problems Problem Noted Date Resolved Date Type 2 diabetes mellitus 11/26/2013 12/30/2013 documented as of this encounter (statuses as of 05/26/2019) Immunizations Name Administration Dates Next Due Influenza [...] Sign Reading Time Taken Comments Blood Pressure 151/78 05/26/2019 7:20 PM CDT Pulse 66 05/26/2019 7:20 PM CDT Temperature 36.8 C (98.3 F) 05/26/2019 5:29 PM CDT Respiratory Rate 18 05/26/2019 7:20 PM CDT Oxygen Saturation 100% 05/26/2019 7:20 PM CDT Inhaled Oxygen Concentration - - Weight 97.5 kg (215 lb) 05/26/2019 5:29 PM CDT Height - - Body Mass Index 39.32 04/26/2019 8:59 AM CDT documented in this encounter Discharge Instructions Deena Samuels FNP - 05/26/2019 You were seen today for Chief Complaint Patient presents with Abdominal Pain Your ER diagnosis was ICD-10-CM ICD-9-CM 1. Left upper quadrant pain R10.12 789.02 2. Nausea and vomiting in adult patient R11.2 787.01 NO LIFE-THREATENING FINDINGS ON TODAY'S EXAM. YOUR PRESCRIPTIONS : Medication List START taking these medications traMADol 50 mg tablet Commonly known as: ULTRAM Take 1 tablet by mouth every 6 (six) hours as needed for Pain (scale 4-6). CHANGE how you take these medications * dicyclomine 20 mg tablet Commonly known as: BENTYL Take 1 tablet by mouth every 6 (six) hours as needed for Abdominal pain. What changed: Another medication with the same name was added. Make sure you understand how and when to take each. * dicyclomine 20 mg tablet Commonly known as: BENTYL Take 1 tablet by mouth 4 (four) times daily for 14 days. What changed: You were already taking a medication with the same name, and this prescription was added. Make sure you understand how and when to take each. * ondansetron 4 mg tablet Commonly known as: ZOFRAN Take 2 tablets by mouth every 8 (eight) hours as needed for Nausea and Vomiting (N/V). What changed: Another medication with the same name was added. Make sure you understand how and when to take each. * ondansetron 4 mg tablet Commonly known as: ZOFRAN Take 1 tablet by mouth every 8 (eight) hours as needed for Nausea and Vomiting ( N/V). What changed: You were already taking a medication with the same name, and this prescription was added. Make sure you understand how and when to take each. * This list has 4 medication(s) that are the same as other medications prescribed for you. Read thedirections carefully, and ask your doctor or other care provider to review them with you. ASK your doctor about these medications * cetirizine 10 mg tablet Commonly known as: ZYRTEC TAKE 1 TABLET BY MOUTH EVERY DAY * cetirizine 10 mg tablet Commonly known as: ZYRTEC TAKE 1 TABLET BY MOUTH EVERY DAY dexAMETHasone 1 mg tablet Commonly known as: DECADRON Please take at 11pm tonight diazePAM 5 mg tablet Commonly known as: VALIUM Take 1 tablet by mouth at bedtime. DULoxetine 30 mg capsule Commonly known as: CYMBALTA Take 1 capsule by mouth daily. estradiol 1 mg tablet Commonly known as: ESTRACE Take 1 tablet by mouth daily. gabapentin 300 mg capsule Commonly known as: NEURONTIN TAKE 1 CAPSULE BY MOUTH TWICE A DAY hydrocortisone-pramovine rectal foam Commonly known as: PROCTOFOAM HC Insert 1 Applicator into rectum 2 (two) times daily. hydrOXYzine 50 mg tablet Commonly known as: ATARAX levothyroxine 50 mcg tablet Commonly known as: SYNTHROID Take 1 tablet by mouth every morning. linaCLOtide 290 mcg Cap Commonly known as: LINZESS Take 290 mcg by mouth daily. lisinopril 20 mg tablet Commonly known as: PRINIVIL,ZESTRIL LUNESTA 3 mg tablet Generic drug: eszopiclone peg-electrolyte soln 236-22.74-6.74 -5.86 gram solution Commonly known as: GOLYTELY Take as directed before colonoscopy Polyethylene Glycol 3350 17 gram powder Commonly known as: MIRALAX Take 1 Packet by mouth as needed for Constipation. PROAIR HFA 90 mcg/actuation inhaler Generic drug: albuterol proMETHazine 25 mg tablet Commonly known as: PHENERGAN Take 1 tablet by mouth every 6 (six) hours as needed for Nausea and Vomiting (N/ V) or N/V unresponsive to Ondansetron. PROTONIX ORAL rOPINIRole 1 mg tablet Commonly known as: REQUIP * This list has 2 medication(s) that are the same as other medications prescribed for you. Read thedirections carefully, and ask your doctor or other care provider to review them with you. Where to Get Your Medications Information about where to get these medications is not yet available Ask your nurse or doctor about these medications dicyclomine 20 mg tablet ondansetron 4 mg tablet traMADol 50 mg tablet ER precautions and follow up : 1. Return to ER if your symptoms should worsen or fail to improve within 72 hours. 2. The care provided in the emergency room was for acute problems only. 3. You should follow up with your primary care provider within 72 hours. 4. Fill and take all your medications as prescribed. 5. Make sure you are staying adequately hydrated. Busque attencion immediatamente si usted tiene los sitomas sigue, vuelve peor o si hay sitomas nuevas o para cualquiera preoccupacion incluyendo dolor del pecho , falta aire, se siente debile, mas fievre, mas dolor, nausea, vomitando, sangrando que no es normal, confusion, baja or pierdas conciencia. FOLLOW-UP RECOMMENDATIONS: RECOMMEND FOLLOW-UP WITH A PRIMARY CARE PROVIDER OR SPECIALIST IN 2-5 DAYS, ESPECIALLY IF NO IMPROVEMENT IN SYMPTOMS. MAY FOLLOW-UP WITH A PROVIDER OF YOUR CHOICE, SUCH : 1. A PHYSICIAN OF YOUR CHOICE 2. [facility], . LOCATIONS IN [facility] 3. [facility], [address] [place] [address]; OR, IF YOU WISH TO FOLLOW-UP WITHIN THE [facility], MAY TRY THESE OPTIONS (CLINIC APPOINTMENTS AVAILABLE ON [id number] BASIS): 1. SCHEDULE AN APPOINTMENT ONLINE AT WWW[facility] 2. OR CALL THE [facility] AT OR 3. OR CALL YOUR [facility] PHYSICIAN'S OFFICE DIRECTLY IF YOU ARE ALREADY AN ESTABLISHED [facility] PATIENT. documented in this encounter Plan of Treatment Date Type Specialty Care Team Description 06/03/2019 Office Visit Gastroenterology Dmitriy Boucher MD [address] [place] [address]. [address] [place] [phone] 06/09/2019 Office Visit Endocrinology Diabetes & Sayda Rosas, [facility] Metabolism [address] [place] [address] 06/21/2019 Office Visit OB Satellites Imelda Ignacio, [address] [phone] 07/26/2019 Office Visit Internal Medicine Bernice Arzate MD [address] [place] [phone] Gorge Hagen DO [address] [place] [phone] 08/03/2019 Office Visit Neurology Kirill Arango MD [address] [place] [phone] Health Maintenance Due Date Last Done [...] of this encounter Implants Implanted Type Area Automobile 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 N/A / [id number] Cement CEMENT Right: [employer] 08/07/2018 [id number] / Implanted: Qty: 1 on 04/14/2017 by Michael Hernandez MD at [facility] Knee [id number] / [id number] Cr Tibial Bearing KNEE Right: Biomet 02/18/2022 [id number] / Implanted: Qty: 1 on 04/14/2017 by Michael Hernandez MD at [facility] Knee [id number] / [id number] Cr Femoral Right KNEE Right: Biomet 03/17/2027 [id number] / Implanted: Qty: 1 on 04/14/2017 by Michael Hernandez MD at [facility] Knee [id number] / [id number] Primary Tibial Modular Tray KNEE Right: [employer] 01/16/2021 [id number] / Implanted: Qty: 1 on 04/14/2017 by Michael Hernandez MD at [facility] Knee [id number] / [id number] Standard Patella PATELLA Right: Bi[employer] 01/22/2022 [id number] / Implanted: Qty: 1 on 04/14/2017 by Michael Hernandez MD at [facility] Knee [id number] / [id number] Screw Bone Ti 2.7mm Acumed #Co-F2710 - S2 Aug 23 SCREW Right: [employer] CO-[id number] / Implanted: Qty: 2 on 08/14/2016 by Biju Middleton at [facility] AT [facility] Hand 2 16 AUG 23 / NA Description: right mcp joint Screw Bone Ti 2.7mm Acumed #Co-F2712 - S2 Aug 23 SCREW Right: Hand [employer] CO-[id number] / Implanted: Qty: 1 on 08/14/2016 by Biju Middleton at [facility] 2 16 AUG 23 / NA Description: right mcp joint Screw Bone Ti 2.7mm Acumed #Co-F2708 - Sor Sterlization SCREW Right: Hand [employer] CO-[id number] / Implanted: Qty: 1 on 08/14/2016 by Biju Middleton at [facility] OR STERLIZATION / OR STERILIZATION Description: Load # Screw Bone Ti 2.7mm Acumed #Co-F2706 - [id number] SCREW Right: Hand [employer] CO-[id number] / Implanted: Qty: 1 on 08/14/2016 by Biju Middleton at [facility] N/A / N/A Bone Screw SCREW Right: Knee [employer] 10/27/2026 [id number] / Implanted: Qty: 1 on 04/14/2017 by Michael Hernandez MD at [facility] [id number] / [id number] Bone Screw SCREW Right: Knee [employer] 08/15/2026 [id number] / Implanted: Qty: 1 on 04/14/2017 by Michael Hernandez MD at [facility] [id number] / [id number] Bone Screw SCREW Right: Knee [employer] 10/27/2026 [id number] / Implanted: Qty: 1 on 04/14/2017 by Michael Hernandez MD at [facility] [id number] / [id number] Bone Screw SCREW Right: Knee [employer] 08/21/2025 [id number] / Implanted: Qty: 1 on 04/14/2017 by Michael Hernandez MD at [facility] [id number] / [id number] Modular Finned Stem Stem Right: Knee [employer] 02/12/2027 [id number] / Implanted: Qty: 1 on 04/14/2017 by Michael Hernandez MD at [facility] [id number] / [id number] Cammulated Interference Screw Right: Hand [employer]omet 11/01/2020 [id number] / Implanted: Qty: 2 on 05/06/2016 by Biju Middleton at [facility] N/A / [id number] Mcp Fusion Plate, Right Right: Hand [employer] [id number] / Implanted: Qty: 1 on 08/14/2016 by Biju Middleton at [facility] 2 16 AUG 23 / NA documented as of this encounter Procedures Procedure Name Priority Date/Time Associated Comments Diagnosis CT ABDOMEN PELVIS WO STAT 05/26/2019 7:05 Left upper quadrant Results for this CONTRAST PM CDT pain procedure are in the results section. POCT TEST YURIY 05/26/2019 6:14 Left upper quadrant Results for this PM CDT pain procedure are in the results section. CBC WITH DIFFERENTIAL STAT 05/26/2019 6:03 Left upper quadrant Results for this PM CDT pain procedure are in the results section. EXTRA TUBE URINE STAT 05/26/2019 6:03 CULTURE PM CDT URINALYSIS STAT 05/26/2019 6:03 Left upper quadrant Results for this PM CDT pain procedure are in the results section. CBC WITH DIFF Routine 05/26/2019 6:03 Left upper quadrant Results for this PM CDT pain procedure are in the results section. COMP. METABOLIC PANEL STAT 05/26/2019 6:03 Left upper quadrant Results for this (56528) PM CDT pain procedure are in the results section. CONSENT/REFUSAL FOR Routine 05/26/2019 5:16 DIAGNOSIS AND PM CDT TREATMENT documented in this encounter Results CT ABDOMEN PELVIS WO CONTRAST (05/26/2019 7:05 PM CDT) Specimen Impressions Performed At PACS/VR/DOSE No acute abdominopelvic pathology to explain the patient's left upper quadrant pain. Postsurgical changes of gastric bypass with gaseous distention of the colon without evidence of obstruction. Stable bilateral adrenal adenomas. IRosendo MD., have reviewed this study and agree with the above report. Narrative Performed At EXAM: CT ABDOMEN AND PELVIS WITHOUT CONTRAST PACS/VR/DOSE HISTORY: 48-year-old female with left upper quadrant pain COMPARISON: CT abdomen and pelvis on 03/20/2019 DOSE: 1165.59 mGy/cm total exam DLP TECHNIQUE AND FINDINGS: Contiguous axial imaging from the level of the lung bases through the pubic symphysis was performed without the intravenous administration of contrast. Coronal and sagittal reconstructions were obtained.Auto mA and/or iterative reconstruction were used to reduce radiation dose. FINDINGS: LOWER THORAX: The lungs bases are clear. No cardiomegaly. LIVER: No focal hepatic lesions within the limits of a noncontrast examination.Normal liver contour. GALLBLADDER AND BILIARY TREE: Postsurgical changes of cholecystectomy with reservoir phenomena. SPLEEN: No splenomegaly. PANCREAS: No ductal dilation or masses. ADRENAL GLANDS: Bilateral adrenal adenomas are unchanged and measure 1.7 cm on the right and 1.3 cm on the left. KIDNEYS: No hydronephrosis, stones, or masses. PERITONEUM AND RETROPERITONEUM: No free air or fluid. LYMPH NODES: A few mildly enlarged mesenteric lymph nodes are noted in the right lower quadrant. GI TRACT: Postsurgical changes of gastric bypass. Colonic gaseous distention without dilation to suggest obstruction. The small bowel is unremarkable. Normal appendix. No focal wall thickening or pericolonic stranding. PELVIS/BLADDER: Postsurgical changes of hysterectomy. The bladder is normal. VESSELS: Unremarkable. BONES AND SOFT TISSUES: Mild straightening of the normal thoracolumbar curvature and minimal dextrocurvature centered at L1. The vertebral bodies and intervertebral disc spaces are preserved. There is slight grade 1 retrolisthesis of L5 on S1. No acute fracture or subluxation. No suspicious lytic or sclerotic bony lesions. Procedure Note [facility], Radiant Results Inft User - 05/26/2019 7:45 PM CDT EXAM: CT ABDOMEN AND PELVIS WITHOUT CONTRAST HISTORY: 48-year-old female with left upper quadrant pain COMPARISON: CT abdomen and pelvis on 03/20/2019 DOSE: 1165.59 mGy/cm total exam DLP TECHNIQUE AND FINDINGS: Contiguous axial imaging from the level of the lung bases through the pubic symphysis was performed without the intravenous administration of contrast. Coronal and sagittal reconstructions were obtained. Auto mA and/or iterative reconstruction were used to reduce radiation dose. FINDINGS: LOWER THORAX: The lungs bases are clear. No cardiomegaly. LIVER: No focal hepatic lesions within the limits of a noncontrast examination. Normal liver contour. GALLBLADDER AND BILIARY TREE: Postsurgical changes of cholecystectomy with reservoir phenomena. SPLEEN: No splenomegaly. PANCREAS: No ductal dilation or masses. ADRENAL GLANDS: Bilateral adrenal adenomas are unchanged and measure 1.7 cm on the right and 1.3 cm on the left. KIDNEYS: No hydronephrosis, stones, or masses. PERITONEUM AND RETROPERITONEUM: No free air or fluid. LYMPH NODES: A few mildly enlarged mesenteric lymph nodes are noted in the right lower quadrant. GI TRACT: Postsurgical changes of gastric bypass. Colonic gaseous distention without dilation to suggest obstruction. The small bowel is unremarkable. Normal appendix. No focal wall thickening or pericolonic stranding. PELVIS/BLADDER: Postsurgical changes of hysterectomy. The bladder is normal. VESSELS: Unremarkable. BONES AND SOFT TISSUES: Mild straightening of the normal thoracolumbar curvature and minimal dextrocurvature centered at L1. The vertebral bodies and intervertebral disc spaces are preserved. There is slight grade 1 retrolisthesis of L5 on S1. No acute fracture or subluxation. No suspicious lytic or sclerotic bony lesions. IMPRESSION No acute abdominopelvic pathology to explain the patient's left upper quadrant pain. Postsurgical changes of gastric bypass with gaseous distention of the colon without evidence of obstruction. Stable bilateral adrenal adenomas. I, Francisco Graves MD., have reviewed this study and agree with the above report. Performing Organization Address City/State/Zipcode Phone Number PACS/VR/DOSE POCT Test, Urine (05/26/2019 6:14 PM CDT) POCT PREG negative On board controls acceptable present with C Line POCT PREG LOT # [id number] POCT PREG TEST DATE 09-07-2020 Specimen Urine - URINE, CLEAN CATCH EXTRA TUBE URINE CULTURE (05/26/2019 6:03 PM CDT) Specimen Urine - URINE, CLEAN CATCH Performing Organization Address [facility]/Zipcode Phone Number [facility] CLIA: [id number], [address] [place] [address] [facility] CBC WITH DIFFERENTIAL (05/26/2019 6:03 PM CDT) [facility] Signature WBC 6.70 4.30 - 11.10 [facility] 10*3/L [facility] RBC 4.83 3.93 - 5.25 [facility] 10*6/L [facility] HGB 13.4 11.6 - 15.0 g/dL [facility] HCT 40.3 35.7 - 45.2 % [facility] MCV 83.4 80.6 - 95.5 fL [facility] MCH 27.7 25.9 - 32.8 pg [facility] MCHC 33.3 31.6 - 35.1 g/dL [facility] RDW-SD 40.6 39.0 - 49.9 fL [facility] RDW-CV 13.4 12.0 - 15.5 % [facility] PLT 266 166 - 358 [facility] 10*3/L [facility] MPV 10.7 9.5 - 12.9 fL [facility] NRBC/100 WBC 0.0 0.0 - 10.0 /100 [facility] WBCs [facility] NRBC x10^3 <0.01 10*3/L [facility] GRAN MAT (NEUT) % 57.1 % [facility] IMM GRAN % 0.10 % [facility] LYMPH % 33.3 % [facility] MONO % 7.3 % [facility] EOS % 1.6 % [facility] BASO % 0.6 % [facility] GRAN MAT x10^3(ANC) 3.82 1.88 - 7.09 [facility] 10*3/uL [facility] IMM GRAN x10^3 <0.03 0.00 - 0.06 [facility] 10*3/uL [facility] LYMPH x10^3 2.23 1.32 - 3.29 [facility] 10*3/uL [facility] MONO x10^3 0.49 0.33 - 0.92 [facility] 10*3/uL [facility] EOS x10^3 0.11 0.03 - 0.39 [facility] 10*3/uL [facility] BASO x10^3 0.04 0.01 - 0.07 [facility] 10*3/uL [facility] Specimen Blood - ARM, LEFT Performing Organization Address City/State/Zipcode Phone Number [facility] CLIA: [id number], [address] [place], [place] [id number] [facility] COMP. METABOLIC PANEL (12764) (05/26/2019 6:03 PM CDT) NA 139 135 - 145 mmol/L [facility] K 4.1 3.5 - 5.0 mmol/L [facility] CL 103 98 - 108 mmol/L [facility] CO2 TOTAL 26 23 - 31 mmol/L [facility] AGAP 10 2 - 16 [facility] BUN 12 7 - 23 mg/dL [facility] GLUCOSE 104 70 - 110 mg/dL [facility] CREATININE 0.63 0.50 - 1.04 [facility] mg/dL [facility] TOTAL BILI 0.2 0.1 - 1.1 mg/dL [facility] CALCIUM 9.2 8.6 - 10.6 mg/dL [facility] T PROTEIN 7.6 6.3 - 8.2 g/dL [facility] ALBUMIN 4.3 3.5 - 5.0 g/dL [facility] ALK PHOS 85 34 - 122 U/L [facility] ALT(SGPT) 35 9 - 51 U/L [facility] AST(SGOT) 25 13 - 40 U/L [facility] eGFR Calculation 100.4 mL/min/1.73m2 [facility] (Non-) [facility] eGFR Calculation 121.7 mL/min/1.73m2 [facility] () [facility] [place] Specimen Blood - ARM, LEFT Narrative Performed At Association of Glomerular Filtration Rate [facility] (GFR) and Staging of Kidney Disease* [...] tests). Performing Organization Address City/State/Zipcode Phone Number [facility] CLIA: [id number], [address] [place] [address] [facility] Urinalysis (05/26/2019 6:03 PM CDT) APPEARANCE Hazy (A) Clear [facility] COLOR Yellow Yellow [facility] PH 5.0 4.8 - 8.0 COMB [facility] SP GRAVITY 1.020 1.003 - 1.030 [facility] GLU U QUAL Normal Normal [facility]B [facility] BLOOD Negative Negative [facility] KETONES Negative Negative [facility] PROTEIN Negative Negative [facility] UROBILIN Normal Normal [facility] BILIRUBIN Negative Negative [facility] NITRITE Negative Negative [facility] LEUK ANGEL Negative Negative [facility] RBC/HPF 2 0 - 3 HPF [facility] WBC/HPF 2 0 - 5 HPF [facility] BACTERIA Few (A) Negative [facility] SQ EPITH 2 <=2 HPF [facility] Specimen Urine - URINE, CLEAN CATCH Performing Organization Address City/State/Zipcode Phone Number [facility] CLIA: [id number], [address] [place] [address] [facility] documented in this encounter Visit Diagnoses Diagnosis Left upper quadrant pain - Primary Abdominal pain, left upper quadrant Nausea and vomiting in adult patient Nausea with vomiting documented in this encounter Administered Medications Medication Order MAR Action Action Date Dose Rate Site dicyclomine (BENTYL) Given 05/26/2019 6:04 PM 20 mg Left Deltoid-IM injection 20 mg CDT 20 mg, Intramuscular, ONCE, 1 dose, Fri05/26/19 at 1845, Routine maalox:diphenhydrAMINE:lidocaine2 %viscous Given 05/26/2019 7:08 PM CDT 15 mL 1:1:1: suspension (COMPOUNDED) 15 mL, Oral, ONCE, 1 dose, Fri05/26/19 at 1845, Routine morpHINE injection 4 mg Given 05/26/2019 6:04 PM CDT 4 mg 4 mg, Slow IV Push, ONCE, 1 dose, Fri05/26/19 at 1845, STAT morpHINE injection 4 mg Given 05/26/2019 7:36 PM CDT 4 mg 4 mg, Slow IV Push, ONCE, 1 dose, Fri05/26/19 at 2030, STAT NaCl 0.9% (NS) bolus infusion New Bag 05/26/2019 6:04 PM CDT 1,000 mL 999 mL/hr 1,000 mL at 999 mL/hr, 1,000 mL, IV Infusion, ONCE, 1 dose, Fri05/26/19 at 1745, YURIY ondansetron (ZOFRAN (PF)) injection 4 mg Given 05/26/2019 6:04 PM CDT 4 mg 4 mg, Slow IV Push, ONCE, 1 dose, Fri05/26/19 at 1845, YURIY documented in this encounter Insurance Payer Benefit Plan / Subscriber ID Effective Phone Address Type Group Dates ANTHONY CRUZ xxxxxxxxx 2015-Srinivasan SANTILLAN [place] [id number] MANAGED MEDICAID [place] documented as of this encounter"
--- OUTSIDE RECORDS SUMMARY | 2019-11-19 05:57 | XMS REPORT | Summary of Care ---
:1970 Author Organization [facility] Address [address] [place] [address] Care Team Providers Name Role Phone Robert Radford MD Unavailable Unavailable Gorge Hagen DO Primary Care Provider Reason for Visit Reason Comments Refill Request Encounter Details Date Type Department Care Team Description 05/21/[address] [facility] Internal NguyễnOtilia MD Refill Request Medicine- Multispecialty [address] [place] [phone] [facility] [phone] [place] [address] [phone] Allergies Active Allergy Reactions Severity Noted Date [...] mellitus without complications Overview: ICD10 Diagnosis Term Gift Officer Utility documented as of this encounter (statuses [...] Years Used Date Former Smoker Cigarettes 1 Quit: 05/28/2013 Smokeless Tobacco: Never Used Alcohol [...] Office Visit Gastroenterology Jaciel Boucher MD [address] [place] [address] [address] [place] [phone] 06/09/2019 Office Visit Endocrinology Diabetes & Sayda Rosas, [facility] Metabolism [address] [place], [place] [address] 06/21/2019 Office Visit OB Satellites Imelda Ignacio, GOVERNMENT AFFAIRS SPECIALIST [address] [place], [place] [address] 07/26/2019 Office Visit Internal Medicine Bernice Arzate MD [address] [place] [phone] Gorge Hagen DO [address] [place] [phone] 08/03/2019 Office Visit Neurology Kirill Arango MD [address] [place] [address] [phone] Health Maintenance Due Date Last Done Comments [...] of this encounter Implants Implanted Type Area Securities Counselor Device Shelf Model / Identifier Expiration Serial / Lot Date Dbm Sonny Maxxeus .5cc Cts #2014-40 - Sn/A BONE Right: Community Tissue 03/07/2018 / Implanted: Qty: 1 on 08/14/2016 by Biju Middleton at [facility] N/A / [id number] Cement CEMENT Right: Gazelle 08/07/2018 6195-1-001 / Implanted: Qty: 1 on 04/14/2017 by Michael Hernandez MD at [facility] Knee [id number] / [id number] Cr Tibial Bearing KNEE Right: Biomet 02/18/2022 [id number] / Implanted: Qty: 1 on 04/14/2017 by Michael Hernandez MD at [facility] Knee [id number] / [id number] Cr Femoral Right KNEE Right: Biomet 03/17/2027 [id number] / Implanted: Qty: 1 on 04/14/2017 by Michael Hernandez MD at [facility] Knee [id number] / [id number] Primary Tibial Modular Tray KNEE Right: Biomet 01/16/2021 [id number] / Implanted: Qty: 1 on 04/14/2017 by Michael Hernandez MD at [facility] Knee [id number] / [id number] Standard Patella PATELLA Right: Biomet 01/22/2022 [id number] / Implanted: Qty: 1 on 04/14/2017 by Michael Hernandez MD at [facility] Knee [id number] / [id number] Screw Bone Ti 2.7mm Acumed #Co-F2710 - S2 Aug 23 SCREW Right: [employer] CO-[id number] / Implanted: Qty: 2 on 08/14/2016 by Biju Middleton at [facility] 2 16 AUG 23 / NA Description: right mcp joint Screw Bone Ti 2.7mm Acumed #Co-F2712 - S2 Aug 23 SCREW Right: Hand [employer] CO-[id number] / Implanted: Qty: 1 on 08/14/2016 by Biju Middleton at [facility] 2 16 AUG 23 / NA Description: right mcp joint Screw Bone Ti 2.7mm Acumed #Co-F2708 - Sor Sterlization SCREW Right: Hand [employer] CO-F2708 / Implanted: Qty: 1 on 08/14/2016 by Biju Middleton at [facility] OR STERLIZATION / OR STERILIZATION Description: Load # Screw Bone Ti 2.7mm Acumed #Co-F2706 - [id number] SCREW Right: Hand [employer] CO-F2706 / Implanted: Qty: 1 on 08/14/2016 by Biju Middleton at [facility] N/A / N/A Bone Screw SCREW Right: Knee [employer]omet 10/27/2026 [id number] / Implanted: Qty: 1 on 04/14/2017 by Michael Hernandez MD at [facility] [id number] / [id number] Bone Screw SCREW Right: Knee [employer]omet 08/15/2026 [id number] / Implanted: Qty: 1 on 04/14/2017 by Michael Hernandez MD at [facility] [id number] / [id number] Bone Screw SCREW Right: Knee [employer]omet 10/27/2026 [id number] / Implanted: Qty: 1 on 04/14/2017 by Michael Hernandez MD at [facility] [id number] / [id number] Bone Screw SCREW Right: Knee [employer]omet 08/21/2025 [id number] / Implanted: Qty: 1 on 04/14/2017 by Michael Hernandez MD at [facility] [id number] / [id number] Modular Finned Stem Stem Right: Knee [employer]omet 02/12/2027 [id number] / Implanted: Qty: 1 on 04/14/2017 by Michael Hernandez MD at [facility] [id number] / [id number] Cammulated Interference Screw Right: Hand Biomet 11/01/2020 [id number] / Implanted: Qty: 2 on 05/06/2016 by Biju Middleton at [facility] AT [facility] N/A / [id number] Mcp Fusion Plate, Right Right: Hand [employer] PL-MCPR / Implanted: Qty: 1 on 08/14/2016 by Biju Middleton at [facility] AT [facility] 2 16 AUG 23 documented as of this encounter Results Not on filedocumented in this encounter Insurance Payer Benefit Plan / Subscriber ID Effective Phone Address Type Group Dates ANTHONY CRUZ xxxxxxxxx 2015-Srinivasan SANTILLAN Medicaid HEALTHCARE - [facility] [id number] MANAGED MEDICAID [place], [place] documented as of this encounter
--- OUTSIDE RECORDS SUMMARY | 2019-11-19 05:58 | XMS REPORT | Summary of Care ---
:1970 Author Organization [facility] Address [address] [place] [address] Care Team Providers Name Role Phone Robert Radford MD Unavailable Unavailable Bernice Arzate MD Primary Care Provider Reason for Visit Reason Comments Forms [facility] Encounter Details Date Type Department Care Team Description 10/21/2019 Telephone [facility] Internal Bernice Arzate Forms ([facility]- [facility] ) [facility]ialty Ctr [address] [place] [phone] Allergies Active Allergy Reactions Severity Noted Date [...] as of this encounter (statuses as of 10/21/2019) Medications Medication Sig Dispensed Refills Start Date End Date Status PROAIR HFA 90 Inhale 1 Puff 0 12/11/2015 Active mcg/actuation inhaler every 4 (four) hours as needed. ondansetron 4 mg Take 1 tablet by 12 tablet 0 05/26/2019 Active tabletIndications: Left mouth every 8 upper quadrant pain, (eight) hours as Nausea and vomiting in needed for adult patient Nausea and Vomiting (N/V). hydrocortisone-pramovin Insert 1 10 g 1 06/24/2019 Active e (PROCTOFOAM HC) Applicator into rectal foamIndications: rectum 2 (two) Rectal pain times daily. CETIRIZINE 10 mg TAKE 1 TABLET BY 30 tablet 2 07/01/2019 Active tabletIndications: MOUTH EVERY DAY Chronic fatigue, Hypothyroidism, unspecified type DULOXETINE 30 mg TAKE 1 CAPSULE 90 capsule 1 08/09/2019 Active capsuleIndications: BY MOUTH EVERY Neuropathy DAY SUMAtriptan (IMITREX) Take 50 mg by 0 Active 50 mg tablet mouth every 24 (twenty-four) hours as needed for Migraine. LEVOTHYROXINE 50 mcg TAKE 1 TABLET BY 30 tablet 2 09/17/2019 Active tabletIndications: MOUTH EVERY DAY Hypothyroidism, IN THE MORNING unspecified type LINZESS 290 mcg TAKE 1 CAPSULE 30 capsule 2 09/15/2019 Active CapIndications: Chronic BY MOUTH EVERY fatigue, DAY Hypothyroidism, unspecified type zolpidem (AMBIEN) 5 mg Take 1 tablet by 0 07/09/2019 Active tablet mouth at bedtime as needed. lisinopril 20 mg tablet Take 1 tablet by 90 tablet 1 09/20/2019 Active mouth daily. acetaminophen-codeine Take 1 tablet by 15 tablet 0 09/24/2019 Active (TYLENOL-CODEINE #3) mouth every 6 300-30 mg (six) hours as tabletIndications: needed for Pain Acute cystitis without (scale 7-10) for hematuria up to 15 doses. pantoprazole 40 mg EC Take 1 tablet by 30 tablet 2 10/05/2019 Active tabletIndications: mouth daily. Gastroesophageal reflux disease without esophagitis ESTRADIOL 1 mg TAKE 1 TABLET BY 30 tablet 0 10/18/2019 Active tabletIndications: MOUTH EVERY DAY Menopausal problem documented as of this encounter (statuses as of 10/21/2019) Active Problems Problem Noted Date Intractable nausea and vomiting 05/27/2019 Right knee pain 04/10/2016 Abnormal EKG 12/29/2014 Vitamin D deficiency 12/30/2013 Morbid obesity 11/26/2013 Essential hypertension, benign 11/26/2013 Dyslipidemia 11/26/2013 Overview: Diet controlled Bipolar 1 disorder 11/26/2013 PIERRE (obstructive sleep apnea) Overview: CPAP at 16 cm H2O GERD (gastroesophageal reflux disease) Hypothyroid Depression Asthma Seasonal allergies IBS (irritable bowel syndrome) SISI (iron deficiency anemia) Type 2 diabetes mellitus without complications Overview: ICD10 Diagnosis Term Traffic Control Flagger Utility documented as of this encounter (statuses as of 10/21/2019) Resolved Problems Problem Noted Date Resolved Date Pancreatitis, acute 09/02/2019 09/17/2019 Obesity (BMI 30-39.9) 02/09/2019 09/17/2019 Rectal pain 02/04/2019 09/17/2019 Intractable abdominal pain 12/21/2018 09/17/2019 Intractable pain 12/21/2018 09/17/2019 Costochondritis, acute 10/01/2018 09/17/2019 Bradycardia 10/01/2018 09/17/2019 S/P total knee arthroplasty 04/14/2017 09/17/2019 Chest pain 09/27/2016 09/17/2019 Thumb pain, right 07/23/2016 09/17/2019 Gamekeeper thumb 06/28/2016 09/17/2019 Type 2 diabetes mellitus without complication 06/14/2015 09/17/2019 Type 2 diabetes mellitus 11/26/2013 12/30/2013 BMI 50.0-59.9, adult 09/17/2019 documented as of this encounter (statuses as of 10/21/2019) Immunizations Name Administration Dates Next Due Influenza Virus Vaccine 06/30/2019, 06/21/2017 Influenza Virus Vaccine Quad ID [id number] YRS 06/08/2018 Tdap 03/19/2017 documented as of this encounter Social History Tobacco Use Types Packs/Day Years Used Date Former Smoker Cigarettes 1 28 Quit: 05/28/2013 Smokeless Tobacco: Never Used Alcohol Use Drinks/Week oz/Week Comments Yes 0 Standard drinks or equivalent 0.0 Rare Financial Resource Strain Answer Date Recorded How hard is it for you to pay for the very basics like Somewhat hard 2018 food, housing, medical care, and heating? Food Insecurity Answer Date Recorded Within the past 12 months, you worried that your food Sometimes true 2018 would run out before you got money to buy more. Within the past 12 months, the food you bought just Sometimes true 05/27/2019 didn't last and you didn't have money to get more. Transportation Needs Answer Date Recorded In the past 12 months, has lack of transportation kept you from Yes 2018 medical appointments or from getting medications? In the past 12 months, has lack of transportation kept you from Yes 2018 meetings, work, or getting things needed for daily living? Sex Assigned at Date Recorded Not on file Job Start Date Occupation Industry Not on file Not on file Not on file Travel History Travel Start Travel End No recent travel history available. documented as of this encounter Last Filed Vital Signs Not on filedocumented in this encounter Plan of Treatment Date Type Specialty Care Team Description 10/26/2019 Office Visit Otolaryngology Tian Sarmiento MD [address] [place] [address]. [place] [address] 01/21/2020 Office Visit Internal Medicine Bernice Arzate MD [address] [place] [phone] Health Maintenance Due Date Last Done Comments PNEUMOCOCCAL 0-64 YEARS COMBINED 1975 SERIES (1 of 1 - PPSV23) URINE MICROALBUMIN 1979 EYE EXAM 01/15/2017 01/16/2016 Zoster Recombinant Vaccine 2019 (SHINGRIX) (1 of 2) HgA1C 03/17/2020 09/17/2019, 03/30/2019, 10/19/2018, Additional history exists FOOT EXAM 03/30/2020 03/30/2019, 03/30/2019, 10/19/2018, Additional history exists Breast Cancer Screening 07/07/2020 07/07/2019, 05/15/2018, (MAMMOGRAM) 03/21/2017, Additional history exists LDL-C 09/02/2020 09/02/2019, 10/19/2018, 07/17/2018, Additional history exists CREATININE (SERUM) 09/17/2020 09/17/2019, 09/05/2019, 09/02/2019, Additional history exists DTaP,Tdap,and Td Vaccines (2 - 03/19/2027 03/19/2017 Td) COLONOSCOPY 02/09/2029 02/09/2019, 11/02/2013 PAP SMEAR Discontinued 05/21/2011, 12/09/2006 INFLUENZA VACCINE Completed 06/30/2019, 06/21/2017 documented as of this encounter Implants Implanted Type Area Poured Pipe Maker Device Shelf Model / Identifier Expiration Serial / Lot Date Dbm Sonny Maxxeus .5cc Cts #2014-40 - Sn/A BONE Right: Community Tissue 03/07/2018 / Implanted: Qty: 1 on 08/14/2016 by Biju Middleton MD at [facility] N/A / [id number] Cement CEMENT Right: [employer] 08/07/2018 6195-1-001 / Implanted: Qty: 1 on 04/14/2017 by Michael Hernandez MD at [facility] Knee [id number] / [id number] Cr Tibial Bearing KNEE Right: Biomet 02/18/2022 [id number] / Implanted: Qty: 1 on 04/14/2017 by Michael Hernandez MD at [facility] Knee [id number] / [id number] Cr Femoral Right KNEE Right: Biomet 03/17/2027 [id number] / Implanted: Qty: 1 on 04/14/2017 by Michael Hernandez MD at [facility] Knee [id number] / [id number] Primary Tibial Modular Tray KNEE Right: [employer]omet 01/16/2021 [id number] / Implanted: Qty: 1 on 04/14/2017 by Michael Hernandez MD at [facility] Knee [id number] / [id number] Standard Patella PATELLA Right: Biomet 01/22/2022 [id number] / Implanted: Qty: 1 on 04/14/2017 by Michael Hernandez MD at [facility] Knee [id number] / [id number] Screw Bone Ti 2.7mm Acumed #Co-F2710 - S2 16 Aug 23 SCREW Right: [employer]VA [employer] [facility] CO-F2710 / Implanted: Qty: 2 on 08/14/2016 by Biju Middleton MD at [facility] Hand 2 16 AUG 23 / NA Description:right mcp joint Screw Bone Ti 2.7mm Acumed #Co-F2712 - S2 16 Aug 23 SCREW Right: Hand [employer] CO-F2712 / Implanted: Qty: 1 on 08/14/2016 by Biju Middleton MD at [facility] 2 16 AUG 23 / NA Description:right mcp joint Screw Bone Ti 2.7mm Acumed #Co-F2708 - Sor Sterlization SCREW Right: Hand [employer] CO-F2708 / Implanted: Qty: 1 on 08/14/2016 by Biju Middleton MD at [facility] OR STERLIZATION / OR STERILIZATION Description:Load #[id number] Screw Bone Ti 2.7mm Acumed #Co-F2706 - [id number] SCREW Right: Hand [employer] CO-F2706 / Implanted: Qty: 1 on 08/14/2016 by Biju Middleton MD at [facility] N/A / N/A Bone Screw SCREW Right: Knee [employer]omet 10/27/2026 [id number] / Implanted: Qty: 1 on 04/14/2017 by Michael Hernandez MD at [facility] [id number] / [id number] Bone Screw SCREW Right: Knee [employer]omet 08/15/2026 [id number] / Implanted: Qty: 1 on 04/14/2017 by Michael Hernandez MD at [facility] [id number] / [id number] Bone Screw SCREW Right: Knee [employer]omet 10/27/2026 [id number] / Implanted: Qty: 1 on 04/14/2017 by Michael Hernandez MD at [facility] [id number] / [id number] Bone Screw SCREW Right: Knee [employer]omet 08/21/2025 [id number] / Implanted: Qty: 1 on 04/14/2017 by Michael Hernandez MD at [facility] [id number] / [id number] Modular Finned Stem Stem Right: Knee [employer]omet 02/12/2027 [id number] / Implanted: Qty: 1 on 04/14/2017 by Michael Hernandez MD at [facility] [id number] / [id number] Cammulated Interference Screw Right: Hand [employer]omet 11/01/2020 [id number] / Implanted: Qty: 2 on 05/06/2016 by Biju Middleton MD at [facility] N/A / [id number] Mcp Fusion Plate, Right Right: Hand [employer] PL-MCPR / Implanted: Qty: 1 on 08/14/2016 by Biju Middleton MD at [facility] 2 AUG 23 documented as of this encounter Results Not on filedocumented in this encounter Insurance Payer Benefit Plan / Subscriber ID Effective Phone Address Type Group Dates ANTHONY CRUZ xxxxxxxxx 2015-Srinivasan [place] Medicaid HEALTHCARE [place] [facility] [place] [id number] MANAGED MEDICAID [place] documented as of this encounter
--- OUTSIDE RECORDS SUMMARY | 2019-11-19 05:58 | XMS REPORT | Summary of Care ---
:1970 Author Organization [facility] Address [address] [place] [id number] Care Team Providers Name Role Phone Robert Radford MD Unavailable Unavailable Bernice Arzate MD Primary Care Provider Reason for Visit Reason Comments Forms [facility] Encounter Details Date Type Department Care Team Description 10/21/2019 Telephone [facility] Internal Bernice Arzate Forms ([facility] ) [facility] [address] [place] [phone] Allergies Active Allergy Reactions Severity Noted Date [...] mellitus without complications Overview: ICD10 Diagnosis Term Airways Control Specialist Utility documented as of this encounter [...] 10/26/2019 Office Visit Otolaryngology Tian Sarmiento MD [address] [place] [address]. [place] [address] 01/21/2020 Office Visit Internal Medicine Bernice Arzate MD [address] [place] [phone] Health Maintenance Due Date Last Done Comments [...] this encounter Implants Implanted Type Area Manager Plant Device Shelf Model / Identifier Expiration Serial / Lot Date Dbm Sonny Maxxeus .5cc Cts #2014-40 - Sn/A BONE Right: Community Tissue 03/07/2018 / Implanted: Qty: 1 on 08/14/2016 by Biju Middleton MD at [facility] AT [facility] N/A / [id number] Cement CEMENT Right: Lucky Sort 08/07/2018 [id number] / Implanted: Qty: 1 on 04/14/2017 by Michael Hernandez MD at [facility] Knee [id number] / [id number] Cr Tibial Bearing KNEE Right: Biomet 02/18/2022 [id number] / Implanted: Qty: 1 on 04/14/2017 by Michael Hernandez MD at [facility] Knee [id number] / [id number] Cr Femoral Right KNEE Right: [employer] 03/17/2027 [id number] / Implanted: Qty: 1 on 04/14/2017 by Michael Hernandez MD at [facility] Knee [id number] / [id number] Primary Tibial Modular Tray KNEE Right: [employer] 01/16/2021 [id number] / Implanted: Qty: 1 on 04/14/2017 by Michael Hernandez MD at [facility] Knee [id number] / [id number] Standard Patella PATELLA Right: Bi[employer] 01/22/2022 [id number] / Implanted: Qty: 1 on 04/14/2017 by Michael Hernandez MD at [facility] Knee [id number] / [id number] Screw Bone Ti 2.7mm Acumed #Co-F2710 - S2 16 Aug 23 SCREW Right: [facility]D [facility] CO-F2710 / Implanted: Qty: 2 on 08/14/2016 by Biju Middleton MD at [facility] AT [facility] Hand 2 16 AUG 23 / NA Description:right mcp joint Screw Bone Ti 2.7mm Acumed #Co-F2712 - S2 16 Aug 23 SCREW Right: Hand [employer] CO-F2712 / Implanted: Qty: 1 on 08/14/2016 by Biju Middleton MD at [facility] AT [facility] 2 16 AUG 23 / NA Description:right mcp joint Screw Bone Ti 2.7mm Acumed #Co-F2708 - Sor Sterlization SCREW Right: Hand [employer] CO-F2708 / Implanted: Qty: 1 on 08/14/2016 by Biju Middleton MD at [facility] AT [facility] OR STERLIZATION / OR STERILIZATION Description:Load #[id number] Screw Bone Ti 2.7mm Acumed #Co-F2706 - [id number] SCREW Right: Hand [employer] CO-F2706 / Implanted: Qty: 1 on 08/14/2016 by Biju Middleton MD at [facility] N/A / N/A Bone Screw SCREW Right: Knee [employer] 10/27/2026 [id number] / Implanted: Qty: 1 on 04/14/2017 by Michael Hernandez MD at [facility] [id number] / [id number] Bone Screw SCREW Right: Knee [employer] 08/15/2026 [id number] / Implanted: Qty: 1 on 04/14/2017 by Michael Hernandez MD at [facility] [id number] / [id number] Bone Screw SCREW Right: Knee [employer] 10/27/2026 [id number] / Implanted: Qty: 1 on 04/14/2017 by Michael Hernandez MD at [facility] [id number] / [id number] Bone Screw SCREW Right: Knee [employer] 08/21/2025 [id number] / Implanted: Qty: 1 on 04/14/2017 by Michael Hernandez MD at [facility] [id number] / [id number] Modular Finned Stem Stem Right: Knee [employer] 02/12/2027 [id number] / Implanted: Qty: 1 on 04/14/2017 by Michael Hernandez MD at [facility] [id number] / [id number] Cammulated Interference Screw Right: Hand [employer] 11/01/2020 [id number] / Implanted: Qty: 2 on 05/06/2016 by Biju Middleton MD at [facility] AT [facility] N/A / [id number] Mcp Fusion Plate, Right Right: Hand [employer] [id number] / Implanted: Qty: 1 on 08/14/2016 by Biju Middleton MD at [facility] AT [facility] 2 AUG 23 documented as of this encounter Results Not on filedocumented in this encounter Insurance Payer Benefit Plan / Subscriber ID Effective Phone Address Type Group Dates ANTHONY [facility] xxxxxxxxx 2015-Srinivasan [employer] Medicaid HEALTHCARE - [facility] [place] [phone] MANAGED MEDICAID [place], [place] documented as of this encounter
--- OUTSIDE RECORDS SUMMARY | 2019-11-19 05:58 | XMS REPORT | Summary of Care ---
:1970 Author Organization [facility] Address [address] [place] [address] Care Team Providers Name Role Phone Robert Radford MD Unavailable Unavailable Marlon Ortiz DO Primary Care Provider Reason for Referral (Routine) Status Reason Specialty Diagnoses / Referred By Referred To Procedures Contact Contact New Request IM-GASTROENTEROLO Diagnoses LUQ abdominal pain Erich Barnett DO GY Procedures Discharge Follow-Up: Specialty Service IM-GASTROENTEROLOGY; [address] [place] [address] [place] [address] (Routine) Status Reason Specialty Diagnoses / Referred By Contact Referred To Procedures Contact New Request Diagnoses LUQ abdominal pain Erich Barnett, Marlon Gonzalez, Procedures Discharge Follow-up: PCP MARLON ORTIZ; [address] [place] [address]. [address] [place] [address] [place] [address]. [place], [place] [address] [place] [phone] Radiology Services (Routine) Status Reason Specialty Diagnoses / Referred By Referred To Procedures Contact Contact New Request Diagnostic Diagnoses LUQ abdominal pain Erich Barnett DO Radiology Procedures US ABDOMEN COMPLETE 301 [facility] RT [address] [place] [address] Radiology Services (Routine) Status Reason Specialty Diagnoses / Referred By Referred To Procedures Contact Contact New Request Diagnostic Diagnoses LUQ abdominal pain Erich Barnett DO Radiology Procedures US ABDOMEN COMPLETE 301 [facility]. [address] [place] [address] Reason for Visit Reason Comments Abdominal Pain Auth/Cert Status Reason Specialty Diagnoses / Referred By Referred To Procedures Contact Contact Emergency Medicine [facility] Emergency Dept [address] [place] [address] Encounter Details Date Type Department Care Team Description 05/27/2019 - Emergency [facility] Cecilia, EARLY CHILDHOOD SPECIAL EDUCATOR [address] [place] [address] Intractable pain 05/28/2019 [facility] Intensive Erich Barnett DO 301 [facility]. [address] [place], [place] [id number] Care Unit [address] [place] [address] Allergies Active Allergy Reactions Severity Noted Date [...] as of this encounter (statuses as of 05/28/2019) Medications Medication Sig Dispensed Refills Start Date End Date Status PROAIR HFA 90 Inhale 1 Puff 0 12/11/2015 Active mcg/actuation every 4 (four) inhaler hours as needed. estradiol 1 mg Take 1 tablet by [...] type, Recurrent chest pain lisinopril 20 mg 10 mg. 0 10/18/2018 Active tablet CETIRIZINE 10 mg [...] EVERY DAY Chronic fatigue, Hypothyroidism, unspecified type DULoxetine Take 1 capsule by 30 capsule 2 05/06/2019 Active (CYMBALTA) 30 mg mouth daily. capsuleIndications : Neuropathy dicyclomine 20 mg Take 1 tablet by 56 tablet 0 05/26/2019 06/09/20 Active tabletIndications: mouth 4 (four) 19 Left upper times daily for quadrant pain, 14 days. Nausea and vomiting in adult patient traMADol 50 mg Take 1 tablet by 12 tablet 0 05/26/2019 Active tabletIndications: mouth every 6 Left upper (six) hours as quadrant pain, needed for Pain Nausea and (scale 4-6). vomiting in adult patient ondansetron 4 mg Take 1 tablet by 12 tablet 0 05/26/2019 Active tabletIndications: mouth every 8 Left upper (eight) hours as quadrant pain, needed for Nausea Nausea and and Vomiting vomiting in adult (N/V). patient rOPINIRole 1 mg Take 1 mg by 1 03/05/2017 05/27/20 Discontinued tablet mouth every 19 morning. 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 documented as of this encounter (statuses as of 05/28/2019) Resolved Problems Problem Noted Date Resolved Date Type 2 diabetes mellitus 11/26/2013 12/30/2013 documented as of this encounter (statuses as of 05/28/2019) Immunizations Name Administration Dates Next Due Influenza Virus Vaccine 06/21/2017 Influenza Virus Vaccine Quad ID [id number] YRS 06/08/2018 Tdap 03/19/2017 documented as of this encounter Social History Tobacco Use Types Packs/Day Years Used Date Former Smoker Cigarettes 1 28 Quit: 05/28/2013 Smokeless Tobacco: Never Used Tobacco Cessation: Counseling Given: Yes Alcohol Use Drinks/Week oz/Week Comments Yes 0 [...] Sign Reading Time Taken Comments Blood Pressure 144/70 05/28/2019 11:20 AM CDT Pulse 57 05/28/2019 11:20 AM CDT Temperature 36.8 C (98.3 F) 05/28/2019 11:20 AM CDT Respiratory Rate 18 05/28/2019 11:20 AM CDT Oxygen Saturation 99% 05/28/2019 11:20 AM CDT Inhaled Oxygen Concentration - - Weight 100 kg (220 lb 6.4 oz) 05/27/2019 1:46 PM CDT Height 157.5 cm (5' 2") 05/27/2019 1:46 PM CDT Body Mass Index 40.31 05/27/2019 1:46 PM CDT documented in this encounter Discharge Instructions AttachmentsThe following attachments cannot be sent through Care Everywhere.Abdominal Pain, Adult (Belgian)Abdominal Pain, Unknown Cause, (Female ) (Belgian)documented in this encounter Progress Notes Kim Reyes RN - 05/28/2019 2:50 PM CDTCare Management Social Functional Assessment Patient Name: Carlee Aguilar Age: [age] year old Sex: female Patient's Previous Admission Date at [facility]: 12/21/2018 Current diagnosis and co-morbidities: INTRACTABLE PAIN; INTRACTABLE NAUSEA AND VOMITING Readmission Questions: Was patient discharged from any acute care hospital within the last 30 days: No Social Functional Assessment: Primary language spoken/preferred: Belgian Information given by: Self Patient's support system: Other Name and number of support system: Kj Odonnell (life Partner) [phone] Primary Remote Sensing Specialist: Self;Same as Support System MPOA: No Living Arrangement: Home Address of living arrangement : [address] [place] [address], [place] [address] Persons living in home: Self;Same as support system Barriers to returning home: None Baseline functional status- ambulation: Independent Functional status-baseline personal care: Independent Baseline functional status- driving: Independent Baseline functional status- grocery shopping: Independent Functional status-baseline housekeeping: Independent Functional status-baseline meal prep: Independent Current functional status same as prior: Yes Do you have a PCP?: Yes Name of PCP: Marlon Ortiz DO Home Health Care Agency: No Provider Services: No DME Company: No Equipment: CPAP Hemodialysis: No Community resources utilized: SSA/SSI/Medicaid;Food [place] Funding Resources: Medicaid HMO Prescription coverage plan: Medicaid unlimited slots Pharmacy where meds are filled: Other Other pharmacy: [id number] [place], [place] - [address] [phone] (Phone) Anticipated services prior to disharge: Continue Medical Eval Expected mode of discharge transportation: Same as support system Additional info required for discharge planning: No needs identified Recommended discharge plan: Home SFA Complete: Social Functional Assessment complete: Yes Alcohol Use Screening (AUDIT-C) How often do you have a drink containing alcohol?: Never SCORE: 0 Did patient elect to have resources provided: No Role of Care Management explained. Kim Reyes RN, BSN, ACM-RN Test And Research Reactor Operator rich Rios DO - 05/27/2019 12:26 PM CDTTexas DIRECTOR OF CARDIOPULMONARY SERVICES: documented in this encounter Plan of Treatment Date Type Specialty Care Team Description 06/03/2019 Office Visit Gastroenterology Jaciel Boucher MD [address] [place] [address]. [address] [place] [phone] 06/04/2019 Office Visit Internal Medicine Bina Farnsworth [address] [phone] 06/09/2019 Office Visit Endocrinology Diabetes & Sayda Rosas, [facility] Metabolism [address] [place], [place] [phone] 06/21/2019 Office Visit OB Satellites Imelda Ignacio, [address] [phone] 07/26/2019 Office Visit Internal Medicine Bernice Arzate MD [address] [place] [phone] Marlon Ortiz [address] [phone] 08/03/2019 Office Visit Neurology Kirill Arango MD [address] [place] [phone] Health Maintenance Due Date Last Done [...] 03/30/2019, 10/19/2018, Additional history exists CREATININE (SERUM) 05/27/2020 05/27/2019, 05/26/2019, 04/26/2019, Additional history exists DTaP,Tdap,and Td Vaccines (2 - 03/19/2027 03/19/2017 Td) PAP SMEAR Discontinued 05/21/2011, 12/09/2006 documented as of this encounter Implants Implanted Type Area Copy Chaser Device Shelf Model / Identifier Expiration Serial / Lot Date Dbm Sonny Maxxeus .5cc Cts #[id number] - Sn/A BONE Right: Community Tissue 03/07/2018 / Implanted: Qty: 1 on 08/14/2016 by Biju Middleton at [facility] N/A / [id number] Cement CEMENT Right: [place] 08/07/2018 [id number] / Implanted: Qty: 1 on 04/14/2017 by Michael Hernandez MD at [facility] Knee [id number] / [id number] Cr Tibial Bearing KNEE Right: [employer] 02/18/2022 [id number] / Implanted: Qty: 1 on 04/14/2017 by Michael Hernandez MD at [facility] Knee [id number] / [id number] Cr Femoral Right KNEE Right: [employer] 03/17/2027 [id number] / Implanted: Qty: 1 on 04/14/2017 by Michael Hernandez MD at [facility] Knee [id number] / [id number] Primary Tibial Modular Tray KNEE Right: [employer] 01/16/2021 [id number] / Implanted: Qty: 1 on 04/14/2017 by Michael Hernandez MD at [facility] Knee [id number] / [id number] Standard Patella PATELLA Right: [employer] 01/22/2022 [id number] / Implanted: Qty: 1 on 04/14/2017 by Michael Hernandez MD at [facility] Knee [id number] / [id number] Screw Bone Ti 2.7mm Acumed #Co-F2710 - S2 16 Aug 23 SCREW Right: [employer] [id number] / Implanted: Qty: 2 on 08/14/2016 by Biju Middleton at [facility] 2 16 AUG 23 / NA Description: right mcp joint Screw Bone Ti 2.7mm Acumed #Co-F2712 - S2 16 Aug 23 SCREW Right: Hand [employer] [id number] / Implanted: Qty: 1 on 08/14/2016 by Biju Middleton at [facility] 2 16 AUG 23 / NA Description: right mcp joint Screw Bone Ti 2.7mm Acumed #Co-F2708 - Sor Sterlization SCREW Right: Hand [employer] CO-[id number] / Implanted: Qty: 1 on 08/14/2016 by Biju Middleton at [facility] OR STERLIZATION / OR STERILIZATION Description: Load # Screw Bone Ti 2.7mm Acumed #Co-F2706 - [id number] SCREW Right: Hand [employer] CO-[id number] / Implanted: Qty: 1 on 08/14/2016 by Biju Middleton at [facility] N/A / N/A Bone Screw SCREW Right: Knee [employer] 10/27/2026 [id number] / Implanted: Qty: 1 on 04/14/2017 by Michael Hernandez MD at [facility] [id number] / [id number] Bone Screw SCREW Right: Knee [employer] 08/15/2026 [id number] / Implanted: Qty: 1 on 04/14/2017 by Michael Hernandez MD at [facility] [id number] / [id number] Bone Screw SCREW Right: Knee [employer] 10/27/2026 [id number] / Implanted: Qty: 1 on 04/14/2017 by Michael Hernandez MD at [facility] [id number] / [id number] Bone Screw SCREW Right: Knee [employer] 08/21/2025 [id number] / Implanted: Qty: 1 on 04/14/2017 by Michael Hernandez MD at [facility] [id number] / [id number] Modular Finned Stem Stem Right: Knee [employer] 02/12/2027 [id number] / Implanted: Qty: 1 on 04/14/2017 by Michael Hernandez MD at [facility] [id number] / [id number] Cammulated Interference Screw Right: Hand [employer] 11/01/2020 [id number] / Implanted: Qty: 2 on 05/06/2016 by Biju Middleton at [facility] [place] [facility] N/A / [id number] Mcp Fusion Plate, Right Right: Hand [employer] [id number] / Implanted: Qty: 1 on 08/14/2016 by Biju Middleton at [facility] AT [facility] 2 16 [id number] documented as of this encounter Procedures Procedure Name Priority Date/Time Associated Comments Diagnosis CBC WITH DIFFERENTIAL Routine 05/28/2019 3:53 Results for this AM CDT procedure are in the results section. CBC WITH DIFF Routine 05/28/2019 3:53 Results for this AM CDT procedure are in the results section. MAGNESIUM Routine 05/28/2019 3:53 Results for this AM CDT procedure are in the results section. US ABDOMEN COMPLETE Routine 05/27/2019 4:52 LUQ abdominal pain Results for this PM CDT procedure are in the results section. COMP. METABOLIC PANEL STAT 05/27/2019 4:38 Results for this (11007) PM CDT procedure are in the results section. LIPASE STAT 05/27/2019 4:38 Results for this PM CDT procedure are in the results section. ADC / LCC - DRUG Routine 05/27/2019 1:38 Results for this SCREEN TRIAGE PM CDT procedure are in the results section. CONSENT/REFUSAL FOR Routine 05/27/2019 10:48 DIAGNOSIS AND AM CDT TREATMENT documented in this encounter Results CBC WITH DIFFERENTIAL (05/28/2019 3:53 AM CDT) WBC 4.81 4.30 - 11.10 [facility] 10*3/L [facility] RBC 4.42 3.93 - 5.25 [facility] 10*6/L [facility] HGB 12.2 11.6 - 15.0 g/dL [facility] HCT 37.2 35.7 - 45.2 % [facility] MCV 84.2 80.6 - 95.5 fL [facility] MCH 27.6 25.9 - 32.8 pg [facility] MCHC 32.8 31.6 - 35.1 g/dL [facility] RDW-SD 41.3 39.0 - 49.9 fL [facility] RDW-CV 13.5 12.0 - 15.5 % [facility] PLT 219 166 - 358 [facility] 10*3/L [facility] MPV 10.8 9.5 - 12.9 fL [facility] NRBC/100 WBC 0.0 0.0 - 10.0 /100 [facility] WBCs [facility] NRBC x10^3 <0.01 10*3/L [facility] GRAN MAT (NEUT) % 49.1 % [facility] IMM GRAN % 0.00 % [facility] LYMPH % 40.3 % [facility] MONO % 7.5 % [facility] EOS % 2.3 % [facility] BASO % 0.8 % [facility] GRAN MAT x10^3(ANC) 2.36 1.88 - 7.09 [facility] 10*3/uL [facility] IMM GRAN x10^3 <0.03 0.00 - 0.06 [facility] 10*3/uL [facility] LYMPH x10^3 1.94 1.32 - 3.29 [facility] 10*3/uL [facility] MONO x10^3 0.36 0.33 - 0.92 [facility] 10*3/uL [facility] EOS x10^3 0.11 0.03 - 0.39 [facility] 10*3/uL [facility] BASO x10^3 0.04 0.01 - 0.07 [facility] 10*3/uL [facility] Specimen Blood - ARM, LEFT Performing Organization Address City/[facility]/Zipcode Phone Number [facility] CLIA: [id number], [address] [place] [address] [facility] Magnesium Serum (05/28/2019 3:53 AM CDT) MAGNESIUM 2.0 1.7 - 2.4 mg/dL [facility] Specimen Blood - ARM, LEFT Performing Organization Address City/[facility]/Zipcode Phone Number [facility] CLIA: [id number], [address] [place] [address] [facility] US ABDOMEN COMPLETE (05/27/2019 4:52 PM CDT) Specimen Impressions Performed At PACS/VR/DOSE Incidentally noted small anterior abdominal wall fat-containing hernia in the region of concern/pain. The hernia does not contain discernible bowel loops. Further evaluation can be obtained by CT abdomen pelvis. Mild hepatomegaly. IRosendo MD., have reviewed this study and agree with the above report. Narrative Performed At RIGHT UPPER QUADRANT ULTRASOUND PACS/VR/DOSE HISTORY: LUQ pain to back COMPARISON: None. FINDINGS: LIVER: Liver is mildly enlarged at 18.7 cm with limited evaluation for the echotexture given patient body habitus and noncooperation. No focal hepatic lesion.Normal hepatopetalflow within the main portal vein. GALLBLADDER: The gallbladder is absent. No sonographic Sexton's sign was elicited. The common bile duct measures 0.8 cm, post cholecystectomy phenomenon. RIGHT KIDNEY: The visualized portion of the right kidney is unremarkable. PANCREAS: Visualization of the pancreas is limited because of the overlying bowel gas. SPLEEN: The spleen is upper limit of normal in size at 12.4 cm. Incidental note was made of a hypoechoic structure traversing the epigastric anterior abdominal wall more so on the left side in the region of concern/pain. The structure appeared to be sliding to and fro through the abdominal wall with breathing movements and incidental patient cough during the exam. This is likely a anterior abdominal wall fat-containing hernia. No bowel loops were noted within the hernia with absent internal vascularity. Procedure Note [facility], Radiant Results Inft User - 05/27/2019 6:34 PM CDT RIGHT UPPER QUADRANT ULTRASOUND HISTORY: LUQ pain to back COMPARISON: None. FINDINGS: LIVER: Liver is mildly enlarged at 18.7 cm with limited evaluation for the echotexture given patient body habitus and noncooperation. No focal hepatic lesion. Normal hepatopetal flow within the main portal vein. GALLBLADDER: The gallbladder is absent. No sonographic Sexton's sign was elicited. The common bile duct measures 0.8 cm, post cholecystectomy phenomenon. RIGHT KIDNEY: The visualized portion of the right kidney is unremarkable. PANCREAS: Visualization of the pancreas is limited because of the overlying bowel gas. SPLEEN: The spleen is upper limit of normal in size at 12.4 cm. Incidental note was made of a hypoechoic structure traversing the epigastric anterior abdominal wall more so on the left side in the region of concern/pain. The structure appeared to be sliding to and fro through the abdominal wall with breathing movements and incidental patient cough during the exam. This is likely a anterior abdominal wall fat-containing hernia. No bowel loops were noted within the hernia with absent internal vascularity. IMPRESSION Incidentally noted small anterior abdominal wall fat-containing hernia in the region of concern/pain. The hernia does not contain discernible bowel loops. Further evaluation can be obtained by CT abdomen pelvis. Mild hepatomegaly. I, Francisco Graves MD., have reviewed this study and agree with the above report. Performing Organization Address City/State/Zipcode Phone Number PACS/VR/DOSE LIPASE (05/27/2019 4:38 PM CDT) LIPASE 28 0 - 220 U/L [facility] Specimen Blood - ARM, LEFT Performing Organization Address City/State/Zipcode Phone Number [facility] CLIA: [id number], [address] [place] [address] [facility] COMP. METABOLIC PANEL (54172) (05/27/2019 4:38 PM CDT) NA 140 135 - 145 [facility] mmol/L [facility] K 3.8 3.5 - 5.0 [facility] mmol/L [facility] CL 105 98 - 108 mmol/L [facility] CO2 TOTAL 30 23 - 31 mmol/L [facility] AGAP 5 2 - 16 [facility] BUN 6 (L) 7 - 23 mg/dL [facility] GLUCOSE 91 70 - 110 mg/dL [facility] CREATININE 0.49 (L) 0.50 - 1.04 [facility] mg/dL [facility] TOTAL BILI 0.3 0.1 - 1.1 mg/dL [facility] CALCIUM 8.8 8.6 - 10.6 [facility] mg/dL [facility] T PROTEIN 6.1 (L) 6.3 - 8.2 g/dL [facility] ALBUMIN 3.4 (L) 3.5 - 5.0 g/dL [facility] ALK PHOS 86 34 - 122 U/L [facility] ALT(SGPT) 50 9 - 51 U/L [facility] AST(SGOT) 36 13 - 40 U/L [facility] eGFR Calculation 134.2 mL/min/1.73m2 [facility] (Non- [facility] [place]) [place] eGFR Calculation 162.7 mL/min/1.73m2 [facility] () [facility] Specimen Blood - ARM, LEFT Narrative Performed At Association of Glomerular Filtration Rate [facility] (GFR) and Staging of Kidney [...] abnormalities in imaging tests). Performing Organization Address City/[facility]/Zipcode Phone Number [facility] CLIA: [id number], [address] [place] [address] SERVICES-[facility] ADC / LCC - DRUG SCREEN TRIAGE (05/27/2019 1:38 PM CDT) BENZO U Presumptive Negative [facility] Positive (A) [facility] BECKI U Negative Negative [facility] AMPHET Negative Negative [facility] THC Negative [facility] METHADONE Negative Negative [facility] Meth U Negative Negative [facility] OPIATES Presumptive Negative [facility] Positive (A) [facility] Cocaine Metabolite Negative Negative [facility] PROPOXY Negative Negative [facility] Tric U Negative Negative [facility] PCP Negative Negative [facility] OXYCOD Negative Negative [facility] Specimen Urine - URINE, CLEAN CATCH Narrative Performed At Urine Drug Cutoff Ranges [facility] Benzodiazepines: 150 ng/mL CAMPUS Barbiturates: 200 ng/mL Amphetamine: 500 ng/mL Cannabinoids: 50ng/mL Methadone: 200 ng/mL Methamphetamine: 500 ng/mL Opiates: 100 ng/mL or 2000 ng/mL Cocaine: 150 ng/mL Propoxyphene:300 ng/mL Tricyclics:300 ng/mL Oxycodone: 100 ng/mL PCP: 25ng/mL The results are to be used only for medical (i.e., treatment) purposes. Unconfirmed screening results must not be used for non-medical purposes (e.g., employment testing, legal testing). Performing Organization Address City/State/Zipcode Phone Number [facility] CLIA: [id number], [address] [place] [address] SERVICES-[facility] documented in this encounter Visit Diagnoses Diagnosis LUQ abdominal pain - Primary Abdominal pain, left upper quadrant Nausea and vomiting, intractability of vomiting not specified, unspecified vomiting type documented in this encounter Administered Medications Medication Order MAR Action Action Date Dose Rate Site acetaminophen (TYLENOL) tablet 650 mg 650 mg, Oral, Q6HPRN, Starting Fri05/27/19 at 1223, Until Discontinued, Routine , Pain (scale 1-3) acetaminophen-codeine (TYLENOL #3) 300-30 Given 05/27/2019 6:42 PM CDT 1 tablet mg tablet 1 tablet 1 tablet, Oral, Q6HPRN, Starting Fri05/27/19 at 1224, Until 05/29/19 at 1223, Routine, Pain (scale 4-6) Given 05/27/2019 12:48 PM CDT 1 tablet cetirizine (ZYRTEC) tablet 10 mg Given 05/28/2019 8:19 AM CDT 10 mg 10 mg, Oral, DAILY, First dose on Fri05/28/19 at 0900, Until Discontinued, Routine diazePAM (VALIUM) tablet 5 mg Given 05/28/2019 7:22 AM CDT 5 mg 5 mg, Oral, QHSPRN, Starting Fri05/27/19 at 1514, Until Discontinued, Routine, Muscle Spasms dicyclomine (BENTYL) capsule 20 mg Given 05/28/2019 10:22 AM CDT 20 mg 20 mg, Oral, Q6HPRN, Starting Fri05/27/19 at 1514, Until Discontinued, Routine, Abdominal pain docusate (COLACE) capsule 100 mg Given 05/28/2019 8:19 AM CDT 100 mg 100 mg, Oral, DAILY, First dose on Fri05/28/19 at 0900, Until Discontinued, Routine DULoxetine (CYMBALTA) capsule 60 mg Given 05/28/2019 8:19 AM CDT 60 mg 60 mg, Oral, DAILY, First dose on Fri05/28/19 at 0900, Until Discontinued, Routine enoxaparin (LOVENOX) injection 40 mg Given 05/28/2019 8:24 AM CDT 40 mg Abdomen-SC 40 mg, Subcutaneous, DAILY, First dose on Fri05/28/19 at 0900, Until Discontinued, Routine estradiol (ESTRACE) tablet 1 mg Given 05/28/2019 11:09 AM CDT 1 mg 1 mg, Oral, DAILY, First dose on Fri05/28/19 at 0900, Until Discontinued, Routine levothyroxine (SYNTHROID) tablet 50 mcg Given 05/28/2019 5:23 AM CDT 50 mcg 50 mcg, Oral, QAM-0600, First dose on Fri05/28/19 at 0600, Until Discontinued, Routine lisinopril (PRINIVIL,ZESTRIL) tablet 10 mg Given 05/28/2019 8:19 AM CDT 10 mg 10 mg, Oral, DAILY, First dose on Fri05/28/19 at 0900, Until Discontinued, Routine morpHINE injection 2 mg Given 05/28/2019 12:21 PM CDT 2 mg 2 mg, Slow IV Push, Q4HPRN, Starting Fri05/27/19 at 1535, Until Fri05/28/19 at 1534, Routine, Pain (scale 7-10) Given 05/28/2019 8:18 AM CDT 2 mg Given 05/28/2019 1:56 AM CDT 2 mg ondansetron (ZOFRAN (PF)) injection 4 mg 4 mg, Slow IV Push, Q6HPRN, Starting Fri05/27/19 at 1224, Until Discontinued, Routine, Nausea and Vomiting (N/V) pantoprazole (PROTONIX) EC tablet 40 mg Given 05/28/2019 8:19 AM CDT 40 mg 40 mg, Oral, DAILY, First dose on Fri05/28/19 at 0900, Until Discontinued proCHLORperazine (COMPAZINE) suppository 25 mg 25 mg, Rectal, [id number], Starting Fri05/27/19 at 1225, Until Discontinued, Routine, Nausea and Vomiting (N/V) traMADol (ULTRAM) tablet 100 mg 100 mg, Oral, Q6HPRN, Starting Susannah 05/27/19 at 1454, Until Discontinued, Routine , Pain (scale 7-10) Medication Order MAR Action Action Date Dose Rate Site dicyclomine (BENTYL) Given 05/27/2019 11:14 AM 20 mg Left injection 20 mg CDT Dorsogluteal-IM 20 mg, Intramuscular, ONCE NOW, 1 dose, [facility] 05/27/19 at 1215, Routine HYDROcodone-acetaminophen (NORCO 5) 5-325 Given 05/27/2019 11:14 AM CDT 1 tablet mg tablet 1 tablet 1 tablet, Oral, ONCE, 1 dose, [facility] 05/27/19 at 1215, YURIY NaCl 0.9% (NS) bolus infusion New Bag 05/27/2019 12:48 PM CDT 1,000 mL 999 mL/hr 1,000 mL at 999 mL/hr, 1,000 mL, IV Infusion, ONCE, 1 dose, [facility] 05/27/19 at 1215, YURIY ondansetron (ZOFRAN-ODT) disintegrating tablet Given 05/27/2019 11:12 AM CDT 4 mg 4 mg 4 mg, Oral, ONCE, 1 dose, [facility] 05/27/19 at 1215, Routine SUMAtriptan (IMITREX) tablet 50 mg Given 05/28/2019 6:07 AM CDT 50 mg 50 mg, Oral, ONCE, 1 dose, 05/28/19 at 0600, Routine documented in this encounter Insurance Payer Benefit Plan / Subscriber ID Effective Phone Address Type Group Dates ANTHONY CRUZ xxxxxxxxx 2015-Srinivasan SANTILLAN Medicaid [facility] - [facility] [place] [id number] MANAGED MEDICAID [place], MEDICA[place] documented as of this encounter Advance Directives Name Relationship Healthcare Agent Relationship Communication Kj Odonnell Life Partner Primary healthcare agent
--- OUTSIDE RECORDS SUMMARY | 2019-11-19 05:59 | XMS REPORT | Summary of Care ---
:1970 Author Organization [facility] Address [address] [place] [address] Care Team Providers Name Role Phone Robert Radford MD Unavailable Unavailable Bernice Arzate MD Primary Care Provider Reason for Referral (Routine) Status Reason Specialty Diagnoses / Referred By Referred To Procedures Contact Contact New Request Otolaryngology Diagnoses Change in voice Otilia Nguyễn Procedures CONSULT/REFERRAL ENT MD Nick [address] [place] [id number] Reason for Visit Reason Comments Follow-up Encounter Details Date Type Department Care Team Description 09/17/2019 Office Visit [facility] Internal Otilia Nguyễn Epigastric pain ( Primary Dx); Medicine- MD Nick Change in voice; [facility] [address] [facility] Essential hypertension, benign; [address] [place], [place] Hypothyroidism, unspecified type; [place] [address] Vitamin D deficiency; [id number] Hypokalemia; [phone] Vitamin D deficiency disease; (Fax) Type 2 diabetes mellitus without complication, without long-term current use of insulin; Bilateral hand swelling; Fever, unspecified fever cause Allergies Active Allergy Reactions Severity Noted Date [...] as of this encounter (statuses as of 09/21/2019) Medications Medication Sig Dispensed Refills Start End Status Date Date PROAIR HFA 90 Inhale 1 Puff 0 12/11/19 Active mcg/actuation every 4 (four) 16 inhaler hours as needed. ondansetron 4 mg Take 1 tablet by 12 tablet 0 05/26/20 Active tabletIndications: mouth every 8 19 Left upper quadrant (eight) hours as pain, Nausea and needed for vomiting in adult Nausea and patient Vomiting (N/V). hydrocortisone-pramo Insert 1 10 g 1 06/24/20 Active vine (PROCTOFOAM HC) Applicator into 19 rectal rectum 2 (two) foamIndications: times daily. Rectal pain pantoprazole 40 mg Take 1 tablet by 30 tablet 2 06/23/20 Active EC mouth daily. 19 tabletIndications: Gastroesophageal reflux disease without esophagitis CETIRIZINE 10 mg TAKE 1 TABLET BY 30 tablet 2 07/01/20 Active tabletIndications: MOUTH EVERY DAY 19 Chronic fatigue, Hypothyroidism, unspecified type DULOXETINE 30 mg TAKE 1 CAPSULE 90 capsule 1 08/09/20 Active capsuleIndications: BY MOUTH EVERY 19 Neuropathy DAY SUMAtriptan Take 50 mg by 0 Active (IMITREX) 50 mg mouth every 24 tablet (twenty-four) hours as needed for Migraine. LINZESS 290 mcg TAKE 1 CAPSULE 30 capsule 2 09/15/19 Active CapIndications: BY MOUTH EVERY 20 Chronic fatigue, DAY Hypothyroidism, unspecified type zolpidem (AMBIEN) 5 Take 1 tablet by 0 07/09/20 Active mg tablet mouth at bedtime 19 as needed. Polyethylene Glycol Take 1 Packet by 30 Packet 2 06/08/20 Discontinued 3350 (MIRALAX) 17 mouth as needed 18 020 gram for powderIndications: Constipation. Chronic fatigue, Hypothyroidism, unspecified type proMETHazine 25 mg Take 1 tablet by 12 tablet 0 09/14/19 Discontinued tablet mouth every 6 020 (six) hours as needed for Nausea and Vomiting (N/V) or N/V unresponsive to Ondansetron. eszopiclone Take 3 mg by 0 Discontinued (LUNESTA) 3 mg mouth at 020 tabletIndications: bedtime. Bradycardia, Atypical chest pain, Fatigue, unspecified type, Recurrent chest pain lisinopril 20 mg 20 mg. 0 10/18/19 Discontinued tablet 020 (Reorder) CETIRIZINE 10 mg TAKE 1 TABLET BY 30 tablet 2 01/08/20 Discontinued tabletIndications: MOUTH EVERY DAY 020 Chronic fatigue, Hypothyroidism, unspecified type GABAPENTIN 300 mg TAKE 1 CAPSULE 60 capsule 2 01/26/20 Discontinued capsuleIndications: BY MOUTH TWICE A 020 Lumbar back pain DAY with radiculopathy affecting right lower extremity hydrOXYzine 50 mg TAKE 4 TABLETS 2 11/15/19 Discontinued tablet ORALLY DAILY 020 DIRECTED dicyclomine 20 mg Take 1 tablet by 20 tablet 0 02/09/20 Discontinued tabletIndications: mouth every 6 020 Abdominal pain, (six) hours as unspecified needed for abdominal location Abdominal pain. ondansetron 4 mg Take 2 tablets 20 tablet 0 02/09/20 Discontinued tabletIndications: by mouth every 8 020 Abdominal pain, (eight) hours as unspecified needed for abdominal location Nausea and Vomiting (N/V). diazePAM 5 mg tablet Take 1 tablet by 30 tablet 0 02/12/20 Discontinued mouth at 19 020 bedtime. traMADol 50 mg Take 1 tablet by 12 tablet 0 05/26/20 Discontinued tabletIndications: mouth every 6 020 Left upper quadrant (six) hours as pain, Nausea and needed for Pain vomiting in adult (scale 4-6). patient levothyroxine 50 mcg Take 1 tablet by 30 tablet 2 06/07/20 Discontinued tabletIndications: mouth every 020 Hypothyroidism, morning. unspecified type FLUCELVAX QUAD 0 06/30/20 Discontinued , PF, 60 020 mcg (15 mcg x 4)/0.5 mL Syrg benzonatate 100 mg Take 1 capsule 30 capsule 0 07/25/20 Discontinued capsuleIndications: by mouth 3 19 020 Productive cough (three) times daily as needed for Cough. promethazine-dextrom Take 5 mL by 180 mL 0 07/25/20 Discontinued ethorphan 6.25-15 mouth 4 (four) 19 020 mg/5 mL times daily as syrupIndications: needed for Productive cough Cough. ESTRADIOL 1 mg TAKE 1 TABLET BY 30 tablet 0 08/09/20 Discontinued tabletIndications: MOUTH EVERY DAY 19 020 Menopausal problem documented as of this encounter (statuses as of 09/21/2019) Active Problems Problem Noted Date Intractable nausea [...] mellitus without complications Overview: ICD10 Diagnosis Term Floor Attendant Utility documented as of this encounter (statuses as of 09/21/2019) Resolved Problems Problem Noted Date Resolved Date [...] as of this encounter (statuses as of 09/21/2019) Immunizations Name Administration Dates Next Due Influenza [...] Sign Reading Time Taken Comments Blood Pressure 143/78 09/17/2019 11:51 AM COLD WATER MACHINE 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 Pulse 58 09/17/2019 11:51 AM COLD WATER MACHINE OPERATOR Temperature 37.2 C (98.9 F) 09/17/2019 11:50 AM COLD WATER MACHINE OPERATOR Respiratory Rate 16 09/17/2019 11:50 AM COLD WATER MACHINE OPERATOR Oxygen Saturation 99% 09/17/2019 11:50 AM COLD WATER MACHINE OPERATOR Inhaled Oxygen Concentration - - Weight 100.5 kg (221 lb 8 oz) 09/17/2019 11:50 AM COLD WATER MACHINE OPERATOR Height - - Body Mass Index 40.51 09/02/2019 4:08 PM COLD WATER MACHINE OPERATOR documented in this encounter Progress Notes Otilia Nguyễn MD - 09/17/2019 12:00 PM CST Internal Medicine Established Patient Clinic Note CC: hospital f/u abdominal pain HPI: Carlee Aguilar is a 49 year old female presents to clinic for below: Hospital f/u: Patient hospitalized at [facility] 09/02 - 09/05/2019 for epigastric abdominal pain. Patient with severe epigastric abdominal pain radiating to the back, severe nausea, no diarrhea. Lipase mildly elevated at ~500. CT abd/pelvis unremarkable. Transition of Care call on 09/07/2019. Patient reports feeling back to her usual self. Voice changes: Notes voice box "juggles" ongoing x months. EGD 12/2018 was normal. HTN: Out of lisinopril Blisters: Occasional blisters in her nose, for which she's using hydrocortisone cream + bactroban. Now improving. Notes healing blister on R lip. Fevers ~100.2 x 2 days a few days ago. Hand / arm strength changes: Patient notes hand stiffness and hand weakness, bilateral, ongoing x months. Slight swelling. No particular joint pain. Insomnia: Seeing pulmonary / sleep clinic Pain: On duloxetine. Medications: Current Outpatient Medications Medication Sig LINZESS 290 mcg Cap TAKE 1 CAPSULE BY MOUTH EVERY DAY SUMAtriptan (IMITREX) 50 mg tablet Take 50 mg by mouth every 24 (twenty-four ) hours as needed for Migraine. DULOXETINE 30 mg capsule TAKE 1 CAPSULE BY MOUTH EVERY DAY ESTRADIOL 1 mg tablet TAKE 1 TABLET BY MOUTH EVERY DAY benzonatate 100 mg capsule Take 1 capsule by mouth 3 (three) times daily as needed for Cough. promethazine-dextromethorphan 6.25-15 mg/5 mL syrup Take 5 mL by mouth 4 ( four) times daily as needed for Cough. FLUCELVAX QUAD 4248-7535, PF, 60 mcg (15 mcg x 4)/0.5 mL Syrg CETIRIZINE 10 mg tablet TAKE 1 TABLET BY MOUTH EVERY DAY hydrocortisone-pramovine (PROCTOFOAM HC) rectal foam Insert 1 Applicator into rectum 2 (two) times daily. pantoprazole 40 mg EC tablet Take 1 tablet by mouth daily. levothyroxine 50 mcg tablet Take 1 tablet by mouth every morning. ondansetron 4 mg tablet Take 1 tablet by mouth every 8 (eight) hours as needed for Nausea and Vomiting (N/V). traMADol 50 mg tablet Take 1 tablet by mouth every 6 (six) hours as needed for Pain (scale 4-6). diazePAM 5 mg tablet Take 1 tablet by mouth at bedtime. dicyclomine 20 mg tablet Take 1 tablet by mouth every 6 (six) hours as needed for Abdominal pain. ondansetron 4 mg tablet Take 2 tablets by mouth every 8 (eight) hours as needed for Nausea and Vomiting (N/V). hydrOXYzine 50 mg tablet TAKE 4 TABLETS ORALLY DAILY DIRECTED GABAPENTIN 300 mg capsule TAKE 1 CAPSULE BY MOUTH TWICE A DAY CETIRIZINE 10 mg tablet TAKE 1 TABLET BY MOUTH EVERY DAY lisinopril 20 mg tablet 20 mg. eszopiclone (LUNESTA) 3 mg tablet Take 3 mg by mouth at bedtime. proMETHazine 25 mg tablet Take 1 tablet by mouth every 6 (six) hours as needed for Nausea and Vomiting (N/V) or N/V unresponsive to Ondansetron. Polyethylene Glycol 3350 (MIRALAX) 17 gram powder Take 1 Packet by mouth as needed for Constipation. PROAIR HFA 90 mcg/actuation inhaler Inhale 1 Puff every 4 (four) hours as needed. PMHx: Past Medical History: Diagnosis Date Abnormal uterine [...] diabetes mellitus without complication 06/14/2015 Urinary incontinence [facility] PE: Vitals: Blood pressure (!) 143/78, pulse 58, temperature 37.2 C (98.9 F), temperature source Oral, resp. rate 16, weight 221 lb 8 oz (100.5 kg), last menstrual period 08/28/2013, SpO2 99 %. General: no acute distress and alert ENT: no thyromegaly; (+) nasal erythema with some healing lesions Cardiovascular: Heart regular, rate, rhythm, no murmurs; no edema Respiratory: clear to auscultation, no respiratory distress GI: abd soft, non-tender, non-distended, +BS, no HSM Musc: gait normal Skin: (+) dried blister on R lip Neuro: alert, oriented Psych: cooperative and mood/affect normal Heme / Lymph / Imm: no lymphadenopathy Assessment / Plan: Carlee Aguilar is a 49 year old female presents to clinic today for: Epigastric pain: May be 2/2 pancreatitis, less likely PUD given recent negative EGD, or dumping syndrome. Lipase was low for pancreatitis - monitor for now; if needed will repeat EGD Change in voice Comment: EGD < 1 year ago was normal. May be 2/2 LARD, less likely vocal cord lesion given age Plan: - CONSULT/REFERRAL ENT; consider laryngoscopy Bilateral hand swelling Comment: Possible neuropathy, OA, less likely autoimmune disease related arthritis Plan: - ESR, RF, JAVED - counseled on DDx - f/u Neurology Essential hypertension, benign Comment: Elevated today, but patient off of lisinopril Plan: - refill lisinopril 20mg daily Hypothyroidism, unspecified type Comment: clinically euthyroid Plan: - THYROID STIMULATING HORMONE, FREE T4 - continue levothyroxine Vitamin D deficiency Comment: not on supplements Plan: - VITAMIN D, 25-OH --> low; restart supplement Hypokalemia Comment: noted on recent hospitalization Plan: - BMP Type 2 diabetes mellitus without complication, without long-term current use of insulin Comment: unknown control off of DM medications Plan: - GLYCOSYLATED HEMOGLOBIN (A1C) Fever, unspecified fever cause Comment: likely viral syndrome causing low-grade fever, fever blister Plan: CBC WITH DIFF f/u: recheck vitamin D, f/u BP Otilia Nguyễn MD Beth Vivar MA - 09/17/2019 12:00 PM CST Carlee Aguilar is a 49 year old female Here today for multiple issues. Carlee Aguilar is a 49 year old female seen for a follow up visit; patient has Patient Active Problem List Diagnosis Morbid obesity Essential hypertension, benign Dyslipidemia Bipolar 1 disorder BMI 50.0-59.9, adult PIERRE (obstructive sleep apnea) GERD (gastroesophageal reflux disease) Hypothyroid Depression Asthma Seasonal allergies IBS (irritable bowel syndrome) Vitamin D deficiency SISI (iron deficiency anemia) Type 2 diabetes mellitus without complications Abnormal EKG Type 2 diabetes mellitus without complication Right knee pain Gamekeeper thumb Thumb pain, right Chest pain S/P total knee arthroplasty Costochondritis, acute Bradycardia Intractable abdominal pain Intractable pain Rectal pain Obesity (BMI 30-39.9) Intractable nausea and vomiting Pancreatitis, acute Level of pain 0 Location of pain 0 Appearance: good This patient is accompanied in the office by her family Medications and allergies reviewed with patient by nursing/pcp Nurse teaching given on falls, meds, pain and the patient expresses understanding and acceptance of instructions. Beth Plasencia MA 09/17/2019 11: 49 AM documented in this encounter Plan of Treatment Date Type Specialty Care Team Description 01/21/2020 Office Visit Internal Medicine Bernice Arzate MD [address] [place] [phone] Health Maintenance Due Date Last Done Comments [...] of this encounter Implants Implanted Type Area [employer] Hand Finisher Device Shelf Model / Identifier Expiration Serial / Lot Date Dbm Sonny Maxxeus .5cc Cts #[id number] - Sn/A BONE Right: Community [employer] 03/07/2018 / Implanted: Qty: 1 on 08/14/2016 by Biju Middleton MD at [facility] N/A / [id number] Cement CEMENT Right: [facility] 08/07/2018 [id number] / Implanted: Qty: 1 on 04/14/2017 by Michael Hernandez MD at [facility] Knee [id number] / [id number] Cr Tibial Bearing KNEE Right: [employer] 02/18/2022 [id number] / Implanted: Qty: 1 on 04/14/2017 by Michael Hernandez MD at [facility] Knee [id number] / [id number] Cr Femoral Right KNEE Right: [employer] 03/17/2027 [id number] / Implanted: Qty: 1 on 04/14/2017 by Michael Hernandez MD at [facility] Knee [id number] / [id number] Primary Tibial Modular Tray KNEE Right: [employer] 01/16/2021 [id number] / Implanted: Qty: 1 on 04/14/2017 by Michael Hernandez MD at [facility] Knee [id number] / [id number] Standard Patella PATELLA Right: [employer] 01/22/2022 [id number] / Implanted: Qty: 1 on 04/14/2017 by Michael Hernandez MD at [facility] Knee [id number] / [id number] Screw Bone Ti 2.7mm Acumed #Co-F2710 - S2 16 Aug 23 SCREW Right: [employer] [facility] [id number] / Implanted: Qty: 2 on 08/14/2016 by Biju Middleton MD at [facility] AT [facility] Hand 2 16 AUG 23 / NA Description:right mcp joint Screw Bone Ti 2.7mm [employer] #Co-F2712 - S2 16 Aug 23 SCREW Right: Hand [employer] [id number] / Implanted: Qty: 1 on 08/14/2016 by Biju Middleton MD at [facility] 2 16 AUG 23 / NA Description:right mcp joint Screw Bone Ti 2.7mm [employer]umed #Co-F2708 - Sor Sterlization SCREW Right: Hand [employer] [id number] / Implanted: Qty: 1 on 08/14/2016 by Biju Middleton MD at [facility] OR STERLIZATION / OR STERILIZATION Description:Load #[id number] Screw Bone Ti 2.7mm Acumed #Co-F2706 - [id number] SCREW Right: Hand [employer] CO-[id number] / Implanted: Qty: 1 on 08/14/2016 by Biju Middleton MD at [facility] N/A / N/A Bone Screw SCREW Right: Knee [employer] 10/27/2026 [id number] / Implanted: Qty: 1 on 04/14/2017 by Michael Hernandez MD at [facility] [id number] / [id number] Bone Screw SCREW Right: Knee [employer] 08/15/2026 [id number] / Implanted: Qty: 1 on 04/14/2017 by Michael Hernandez MD at [facility] [id number] / [id number] Bone Screw SCREW Right: Knee [employer] 10/27/2026 [id number] / Implanted: Qty: 1 on 04/14/2017 by Michael Hernandez MD at [facility] [id number] / [id number] Bone Screw SCREW Right: Knee [employer] 08/21/2025 [id number] / Implanted: Qty: 1 on 04/14/2017 by Michael Hernandez MD at [facility] [id number] / [id number] Modular Finned Stem Stem Right: Knee [employer] 02/12/2027 [id number] / Implanted: Qty: 1 on 04/14/2017 by Michael Hernandez MD at [facility] [id number] / [id number] Cammulated Interference Screw Right: Hand [employer] 11/01/2020 [id number] / Implanted: Qty: 2 on 05/06/2016 by Biju Middleton MD at [facility] N/A / [id number] Mcp Fusion Plate, Right Right: Hand [employer] [id number] / Implanted: Qty: 1 on 08/14/2016 by Biju Middleton MD at [facility] 2 Aug 16 documented as of this encounter Results SEDIMENTATION RATE (09/17/2019 1:09 PM COLD WATER MACHINE OPERATOR) Pathologist [facility] [place] ESR 24 (H) 0 - 20 mm/HR [facility] Specimen Blood - ARM, RIGHT Performing Organization Address City/[facility] Phone Number [facility] CLIA: [id number], [address] [place] [address] SERVICES-[facility] ANTI-NUCLEAR ANTIBODY SCREEN (09/17/2019 1:09 PM COLD WATER MACHINE OPERATOR) Pathologist [facility] [place] JAVED Negative Negative [facility] Specimen Blood - ARM, RIGHT Narrative Performed At Negative - No Anti-Nuclear Antibodies detected by IFA. [facility] Positive - JAVED IFA screen performed with a 1:80 dilution in adults and a 1:40 dilution in pediatrics. Any JAVED "Positive" will have titer performed and reported separately. Performing Organization Address City/State/[facility] Phone Number [facility] CLIA: [id number], [address] [place] [address] [phone] [facility] RHEUMATOID FACTOR (09/17/2019 1:09 PM COLD WATER MACHINE OPERATOR) Pathologist [facility] [place] RF <20 <20 IU/mL [facility] Specimen Blood - ARM, RIGHT Performing Organization Address City/[facility] Phone Number [facility] CLIA: [id number], [address] [place] [phone] [facility] VITAMIN D, 25-OH (09/17/2019 1:09 PM COLD WATER MACHINE OPERATOR) VIT D 25OH 20 (L) 25 - 80 ng/mL [facility] Specimen Blood - ARM, RIGHT Narrative Performed At Deficiency: <20 ng/mL [facility] Insufficiency: 20-24 ng/mL Optimal: 25-80 ng/mL Performing Organization Address City/State/Zipcode Phone Number [facility] CLIA: [id number], [address] [place] [address] [facility] BASIC METABOLIC PANEL (NA, K, CL, CO2, GLUCOSE, BUN, CREATININE, CA) (2019 1:09 PM COLD WATER MACHINE OPERATOR) NA 140 135 - 145 mmol/L [facility] K 4.3 3.5 - 5.0 mmol/L [facility] CL 103 98 - 108 mmol/L [facility] CO2 TOTAL 30 23 - 31 mmol/L [facility] AGAP 7 2 - 16 [facility] BUN 10 7 - 23 mg/dL [facility] GLUCOSE 89 70 - 110 mg/dL [facility] CREATININE 0.55 0.50 - 1.04 [facility] mg/dL [facility] CALCIUM 9.1 8.6 - 10.6 mg/dL [facility] eGFR Calculation 117.0 mL/min/1.73m2 [facility] (Non-) [facility] eGFR Calculation 141.8 mL/min/1.73m2 [facility] () [facility] Specimen Blood - ARM, RIGHT Narrative Performed At Association of Glomerular Filtration Rate [facility] (GFR) and Staging of Kidney Disease* [place] + + --+ + | GFR (mL/min/1.73 m2) | With Kidney Damage | Without Kidney Damage + + --+ + | >90 | Stage one | Normal + + --+ + | 60-89 | Stage two | Decreased GFR + + --+ + | 30-59 | Stage three | Stage three + + --+ + | 15-29 | Stage four | Stage four + + --+ + | <15 (or dialysis) | Stage five | Stage five + + --+ + *Each stage assumes the associated GFR level has been in effect for at least three months. Stages 1 to 5, with or without kidney [...] Performing Organization Address City/State/Zipcode Phone Number [facility] CLIA: [id number], [address] [place] [id number] [facility] FREE T4 (09/17/2019 1:09 PM COLD WATER MACHINE OPERATOR) FREE T4 1.20 0.78 - 2.20 ng/dL: [facility] Specimen Blood - ARM, RIGHT Performing Organization Address [facility] Mex[facility]ode Phone Number [facility] CLIA: [id number], [address] [place] [address] [facility] THYROID STIMULATING HORMONE (09/17/2019 1:09 PM COLD WATER MACHINE OPERATOR) TSH 1.06 0.45 - 4.70 mIU/L [facility] Specimen Blood - ARM, RIGHT Performing Organization Address [facility] Mex[facility]ocoks Phone Number [facility] CLIA: [id number], [address] [place] [phone] [facility] GLYCOSYLATED HEMOGLOBIN (A1C) (09/17/2019 1:09 PM COLD WATER MACHINE OPERATOR) HGB A1C 5.8 4.0 - 6.0 % NGSP [facility] Specimen Blood - ARM, RIGHT Performing Organization Address [facility] Mex[facility]ocode Phone Number [facility] CLIA: [id number], [address] [place] [phone] [facility] documented in this encounter Visit Diagnoses Diagnosis Epigastric pain - Primary Abdominal pain, epigastric Change in voice Other voice and resonance disorders Essential hypertension, benign Hypothyroidism, unspecified type Vitamin D deficiency Unspecified vitamin D deficiency Hypokalemia Hypopotassemia Vitamin D deficiency disease Unspecified vitamin D deficiency Type 2 diabetes mellitus without complication, without long-term current use of insulin Bilateral hand swelling Fever, unspecified fever cause documented in this encounter Insurance Payer Benefit Plan / Subscriber ID Effective Phone Address Type Group Dates ANTHONY CRUZ xxxxxxxxx 2015-Srinivasan SANTILLAN [place] [id number] [place] MED[place], [place] documented as of this encounter Advance Directives Name Relationship Healthcare Agent Relationship Communication Kj Odonnell Life Partner Primary healthcare agent
--- OUTSIDE RECORDS SUMMARY | 2019-11-19 05:59 | XMS REPORT | Summary of Care ---
:1970 Author Organization [facility] - [facility] Address [address] [place] [address] Care Team Providers Name Role Phone Robert Radford MD Unavailable Unavailable Bernice Arzate MD Primary Care Provider Reason for Visit Reason Comments Forms PA-DULOXETINE Encounter Details Date Type Department Care Team Description 09/22/2019 Telephone [facility] Internal Bernice Arzate Forms (PA- DULOXETINE Medicine- TAVON Chambers MD ) [facility] [address] [place] [phone] Allergies Active Allergy Reactions Severity Noted Date [...] as of this encounter (statuses as of 09/23/2019) Medications Medication Sig Dispensed Refills Start Date [...] rectum 2 (two) Rectal pain times daily. pantoprazole 40 mg EC Take 1 tablet by 30 tablet 2 06/23/2019 Active tabletIndications: mouth daily. Gastroesophageal reflux disease without esophagitis CETIRIZINE 10 [...] DAY Hypothyroidism, IN THE MORNING unspecified type ESTRADIOL 1 mg TAKE 1 TABLET BY 30 tablet 0 09/17/2019 Active tabletIndications: MOUTH EVERY DAY Menopausal problem LINZESS 290 mcg TAKE 1 CAPSULE 30 capsule 2 09/15/2019 Active CapIndications: Chronic BY MOUTH EVERY fatigue, DAY Hypothyroidism, unspecified type zolpidem (AMBIEN) 5 mg Take 1 tablet by 0 07/09/2019 Active tablet mouth at bedtime as needed. lisinopril 20 mg tablet Take 1 tablet by 90 tablet 1 09/20/2019 Active mouth daily. 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 documented as of this encounter (statuses as of 09/23/2019) Resolved Problems Problem Noted Date Resolved Date [...] as of this encounter (statuses as of 09/23/2019) Immunizations Name Administration Dates Next Due Influenza [...] Office Visit Internal Medicine Bernice Arzate MD [address] [place] [phone] Health Maintenance Due Date Last Done Comments [...] of this encounter Implants Implanted Type Area Floor Installer Device Shelf Model / Identifier Expiration Serial / Lot Date Dbm Sonny Maxxeus .5cc Cts #2014-40 - Sn/A BONE Right: Community Tissue 03/07/20182013-40 / Implanted: Qty: 1 on 08/14/2016 by Biju Middleton MD at [facility] SPECIAL[facility] Hand Services N/A / [id number] Cement CEMENT Right: [place] 08/07/2018 6195-1-001 / Implanted: Qty: 1 on 04/14/2017 by Michael Hernandez MD at [facility] Knee [id number] / [id number] Cr Tibial Bearing KNEE Right: Biomet 02/18/2022 [id number] / Implanted: Qty: 1 on 04/14/2017 by Michael Hernandez MD at [facility] Knee [id number] / [id number] Cr Femoral Right KNEE Right: [employer] 03/17/2027 [id number] / Implanted: Qty: 1 on 04/14/2017 by Michael Hernandez MD at [facility] Knee [id number] / [id number] Primary Tibial Modular Tray KNEE Right: [employer] 01/16/2021 [id number] / Implanted: Qty: 1 on 04/14/2017 by Michael Hernandez MD at [facility] Knee [id number] / [id number] Standard Patella PATELLA Right: [employer] 01/22/2022 [id number] / Implanted: Qty: 1 on 04/14/2017 by Michael Hernandez MD at [facility] Knee [id number] / [id number] Screw Bone Ti 2.7mm Acumed #Co-F2710 - S2 Aug 23 SCREW Right: [employer] CO-[id number] / Implanted: Qty: 2 on 08/14/2016 by Biju Middleton MD at [facility] 2 16 AUG 23 / NA Description:right mcp joint Screw Bone Ti 2.7mm Acumed #Co-F2712 - S2 Aug 23 SCREW Right: Hand [employer] CO-[id number] / Implanted: Qty: 1 on 08/14/2016 by Biju Middleton MD at [facility] 2 16 AUG 23 / NA Description:right mcp joint Screw Bone Ti 2.7mm Acumed #Co-F2708 - Sor Sterlization SCREW Right: Hand [employer] CO-F2708 / Implanted: Qty: 1 on 08/14/2016 by Biju Middleton MD at [facility] OR STERLIZATION / OR STERILIZATION Description:Load #[id number] Screw Bone Ti 2.7mm Acumed #Co-F2706 - [id number] SCREW Right: Hand [employer] CO-F2706 / Implanted: Qty: 1 on 08/14/2016 by Biju Middleton MD at [facility] N/A / N/A Bone Screw SCREW Right: Knee [employer] 10/27/2026 [id number] / Implanted: Qty: 1 on 04/14/2017 by Michael Hernandez MD at [facility] [id number] / [id number] Bone Screw SCREW Right: Knee [employer] 08/15/2026 [id number] / Implanted: Qty: 1 on 04/14/2017 by Michael Hernandez MD at [facility] [id number] / [id number] Bone Screw SCREW Right: Knee [employer] 10/27/2026 [id number] / Implanted: Qty: 1 on 04/14/2017 by Michael Hernandez MD at [facility] [id number] / [id number] Bone Screw SCREW Right: Knee [employer] 08/21/2025 [id number] / Implanted: Qty: 1 on 04/14/2017 by Michael Hernandez MD at [facility] [id number] / [id number] Modular Finned Stem Stem Right: Knee [employer] 02/12/2027 [id number] / Implanted: Qty: 1 on 04/14/2017 by Michael Hernandez MD at [facility] [id number] / [id number] Cammulated Interference Screw Right: Hand [employer] 11/01/2020 [id number] / Implanted: Qty: 2 on 05/06/2016 by Biju Middleton MD at [facility] N/A / [id number] Mcp Fusion Plate, Right Right: Hand [employer] PL-MCPR / Implanted: Qty: 1 on 08/14/2016 by Biju Middleton MD at [facility] 2 AUG 23 documented as of this encounter Results Not on filedocumented in this encounter Insurance Payer Benefit Plan / Subscriber ID Effective Phone Address Type Group Dates ANTHONY CRUZ xxxxxxxxx 2015-Srinivasan SANTILLAN Medicaid HEALTHCARE - [facility] [place] [address] MANAGED MEDICAID [place], [place]ID [place] documented as of this encounter Advance Directives Name Relationship Healthcare Agent Relationship Communication Kj Odonnell Life Partner Primary healthcare agent
--- OUTSIDE RECORDS SUMMARY | 2019-11-19 06:00 | XMS REPORT | Summary of Care ---
:1970 Author Organization [facility] - Health Address [address] [place] [address] Care Team Providers Name Role Phone Robert Radford MD Unavailable Unavailable Bernice Arzate MD Primary Care Provider Encounter Details Date Type Department Care Team Description 09/24/2019 Orders Only [facility] Doctor Unassigned, No [address] [facility] Name [place] [phone] Allergies Active Allergy Reactions Severity Noted Date [...] as of this encounter (statuses as of 09/24/2019) Medications Medication Sig Dispensed Refills Start Date [...] as of this encounter (statuses as of 09/24/2019) Active Problems Problem Noted Date Intractable nausea [...] mellitus without complications Overview: ICD10 Diagnosis Term 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 documented as of this encounter (statuses as of 09/24/2019) Resolved Problems Problem Noted Date Resolved Date [...] as of this encounter (statuses as of 09/24/2019) Immunizations Name Administration Dates Next Due Influenza [...] Office Visit Internal Medicine Bernice Arzate MD [address] [place] [phone] Health Maintenance Due Date Last Done [...] of this encounter Implants Implanted Type Area Agile Scrum Coach Device Shelf Model / Identifier Expiration Serial / Lot Date Dbm Sonny Maxxeus .5cc Cts #2014-40 - Sn/A BONE Right: Community Tissue 03/07/2018 / Implanted: Qty: 1 on 08/14/2016 by Biju Middleton MD at [facility] N/A / [id number] Cement CEMENT Right: [place] 08/07/2018 6195-1-001 / Implanted: Qty: 1 on 04/14/2017 by Michael Hernandez MD at [facility] Knee [id number] / [id number] Cr Tibial Bearing KNEE Right: [employer] 02/18/2022 [id number] / Implanted: Qty: 1 on 04/14/2017 by Michael Hernandez MD at [facility] Knee [id number] / [id number] Cr Femoral Right KNEE Right: [employer] 03/17/2027 [id number] / Implanted: Qty: 1 on 04/14/2017 by Michael Hernandez MD at [facility] Knee [id number] / [id number] Primary Tibial Modular Tray KNEE Right: [employer] 01/16/2021 [id number] / Implanted: Qty: 1 on 04/14/2017 by Michael Hernandez MD at [facility] Knee [id number] / [id number] Standard Patella PATELLA Right: [employer] 01/22/2022 [id number] / Implanted: Qty: 1 on 04/14/2017 by Michael Hernandez MD at [facility] Knee [id number] / [id number] Screw Bone Ti 2.7mm Acumed #Co-F2710 - S2 Aug 23 SCREW Right: [employer] CO-F2710 / Implanted: Qty: 2 on 08/14/2016 by Biju Middleton MD at [place] [address] AUG 23 / NA Description:right mcp joint Screw Bone Ti 2.7mm Acumed #Co-F2712 - S2 Aug 23 SCREW Right: Hand [employer] CO-F2712 / Implanted: Qty: 1 on 08/14/2016 by Biju Middleton MD at [place] [address] 16 AUG 23 / NA Description:right mcp joint Screw Bone Ti 2.7mm Acumed #Co-F2708 - Sor Sterlization SCREW Right: Hand [employer] CO-F2708 / Implanted: Qty: 1 on 08/14/2016 by Biju Middleton MD at [facility] OR STERLIZATION / OR STERILIZATION Description:Load #[id number] Screw Bone Ti 2.7mm Acumed #Co-F2706 - [id number] SCREW Right: Hand [employer] CO-F2706 / Implanted: Qty: 1 on 08/14/2016 by Biju Middleton MD at [facility] N/A / N/A Bone Screw SCREW Right: Knee [employer] 10/27/2026 [id number] / Implanted: Qty: 1 on 04/14/2017 by Michael Hernandez MD at [facility] [id number] / [id number] Bone Screw SCREW Right: Knee [employer] 08/15/2026 [id number] / Implanted: Qty: 1 on 04/14/2017 by Michael Hernandez MD at [facility] [id number] / [id number] Bone Screw SCREW Right: Knee [employer] 10/27/2026 [id number] / Implanted: Qty: 1 on 04/14/2017 by Michael Hernandez MD at [facility] [id number] / [id number] Bone Screw SCREW Right: Knee [employer] 08/21/2025 [id number] / Implanted: Qty: 1 on 04/14/2017 by Michael Hernandez MD at [facility] [id number] / [id number] Modular Finned Stem Stem Right: Knee [employer] 02/12/2027 [id number] / Implanted: Qty: 1 on 04/14/2017 by Michael Hernandez MD at [facility] [id number] / [id number] Cammulated Interference Screw Right: Hand [employer] 11/01/2020 [id number] / Implanted: Qty: 2 on 05/06/2016 by Biju Middleton MD at [facility] N/A / [id number] Mcp Fusion Plate, Right Right: Hand [employer] PL-MCPR / Implanted: Qty: 1 on 08/14/2016 by Biju Middleton MD at [facility] 2 AUG 23 documented as of this encounter Procedures Procedure Name Priority Date/Time Associated Diagnosis Comments CONSENT/REFUSAL FOR Routine 09/24/2019 12:40 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
--- OUTSIDE RECORDS SUMMARY | 2019-11-19 06:00 | XMS REPORT | Summary of Care ---
:1970 Author Organization [facility] - Health Address [address] [place], [place] [address] Care Team Providers Name Role Phone Robert Radford MD Unavailable Unavailable Bernice Arzate MD Primary Care Provider Reason for Visit Reason Comments Back Pain Auth/Cert Status Reason Specialty Diagnoses / Referred By Referred To Procedures Contact Contact [facility] [address] [place] [address] [place] [address] Encounter Details Date Type Department Care Team Description 09/24/2019 Emergency [facility] Meg Reyes R, Acute cystitis without hematuria (Primary Dx); 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 hydrocortisone-pramovi Insert 1 10 g 1 06/24/2019 Active ne (PROCTOFOAM HC) Applicator into rectal rectum 2 (two) foamIndications: times daily. Rectal pain pantoprazole 40 mg EC Take 1 tablet [...] CAPSULE 30 capsule 2 09/15/2019 Active CapIndications: BY MOUTH EVERY Chronic fatigue, DAY Hypothyroidism, unspecified type zolpidem (AMBIEN) 5 mg Take 1 tablet by 0 07/09/2019 Active tablet mouth at bedtime as needed. lisinopril 20 mg Take 1 tablet by 90 tablet 1 09/20/2019 Active tablet mouth daily. cephALEXin (KEFLEX) Take 1 capsule 14 capsule 0 09/24/2019 10/01/2019 Active 500 mg by mouth 2 (two) capsuleIndications: times daily for Acute cystitis without 7 days. hematuria acetaminophen-codeine Take 1 tablet by 15 tablet 0 09/24/2019 Active (TYLENOL-CODEINE #3) mouth every 6 300-30 mg (six) hours as tabletIndications: needed for Pain Acute cystitis without (scale 7-10) for hematuria up to 15 doses. documented as of this encounter (statuses as [...] mellitus without complications Overview: ICD10 Diagnosis Term Mobile Manager Utility documented as of this encounter (statuses [...] Sign Reading Time Taken Comments Blood Pressure 136/71 09/24/2019 12:51 PM ASSISTANT PROFESSOR OF PSYCHOLOGY Pulse 64 09/24/2019 12:51 PM ASSISTANT PROFESSOR OF PSYCHOLOGY Temperature 37 C (98.6 F) 09/24/2019 12:51 PM ASSISTANT PROFESSOR OF PSYCHOLOGY Respiratory Rate 18 09/24/2019 12:51 PM ASSISTANT PROFESSOR OF PSYCHOLOGY Oxygen Saturation 98% 09/24/2019 12:51 PM ASSISTANT PROFESSOR OF PSYCHOLOGY Inhaled Oxygen Concentration - - Weight 96.2 kg (212 lb) 09/24/2019 12:51 PM ASSISTANT PROFESSOR OF PSYCHOLOGY Height 157.5 cm (5' 2") 09/24/2019 12:51 PM ASSISTANT PROFESSOR OF PSYCHOLOGY Body Mass Index 38.78 09/24/2019 12:51 PM ASSISTANT PROFESSOR OF PSYCHOLOGY documented in this encounter Discharge Instructions InstructionsPoMeg salamanca FNP - 09/24/2019 DIAGNOSIS 1. Acute cystitis NO LIFE-THREATENING FINDINGS ON TODAY'S EXAM. PROCEDURES IN THE ER TODAY: Orders Placed This Encounter Procedures URINALYSIS URINE CULTURE MEDICATIONS ADMINISTERED IN THE ER TODAY: Medications FENTanyl PF (SUBLIMAZE (PF)) injection 50 mcg ( Intramuscular Given 09/24/19 1333 ) cyclobenzaprine (FLEXERIL) tablet 10 mg (10 mg Oral Given 09/24/19 1333) acetaminophen (TYLENOL) tablet 650 mg (650 mg Oral Given 09/24/19 1333) HYDROcodone-acetaminophen (NORCO) 10-325 mg tablet 1 tablet (1 tablet Oral Given 09/24/19 1445) cephALEXin (KEFLEX) capsule 500 mg (500 mg Oral Given 09/24/19 1458) YOUR PRESCRIPTIONS AND [id number] MEDICATION RECOMMENDATIONS: New Prescriptions ACETAMINOPHEN-CODEINE (TYLENOL-CODEINE #3) 300-30 MG TABLET Take 1 tablet by mouth every 6 (six)hours as needed for Pain (scale 7-10) for up to 15 doses. CEPHALEXIN (KEFLEX) 500 MG CAPSULE Take 1 capsule by mouth 2 (two) times daily for 7 days. SPECIAL CARE INSTRUCTIONS: Make sure to hydrate FOLLOW-UP RECOMMENDATIONS: RECOMMEND FOLLOW-UP WITH A PRIMARY CARE PROVIDER OR SPECIALIST IN 2-3 DAYS, ESPECIALLY IF NO IMPROVEMENT IN SYMPTOMS. TO FOLLOW-UP WITHIN THE [facility], TRY THESE OPTIONS (CLINIC APPOINTMENTS AVAILABLE ON [id number]-LVEE BASIS): 1. SCHEDULE AN APPOINTMENT ONLINE AT [email or web address] 2. OR CALL THE [facility] AT OR 3. OR CALL YOUR [facility] PHYSICIAN'S OFFICE DIRECTLY IF YOU ARE ALREADY AN ESTABLISHED [facility] PATIENT. OR, YOU MAY FOLLOW-UP WITH A PROVIDER OF YOUR CHOICE, SUCH : 1. A PHYSICIAN OF YOUR CHOICE 2. [facility], . LOCATIONS IN MEDICAL CENTER CLINIC 3. [facility], [address] [place] [address]; RETURN TO ER FOR WORSENING OF SYMPTOMS. AttachmentsThe following attachments cannot be sent through Care Everywhere.Urinary Tract Infections (UTIs), Understanding (Fijian)documented in this encounter Plan of Treatment Date Type Specialty Care Team Description 01/21/2020 Office Visit Internal Medicine Bernice Arzate MD [address] [place] [phone] Name Type Priority Associated Diagnoses Order Schedule URINE CULTURE LAB Routine Acute cystitis without ONCE for 1 Occurrences hematuria starting 09/24/2019 until 09/24/2019 Health Maintenance Due Date Last Done Comments [...] of this encounter Implants Implanted Type Area Audit Clerk Device Shelf Model / Identifier Expiration Serial / Lot Date Dbm Amandaty Maxxeus .5cc Cts #2014-40 - Sn/A BONE Right: Community Tissue 03/07/2018 / Implanted: Qty: 1 on 08/14/2016 by Biju Middleton MD at [facility] N/A / [id number] Cement CEMENT Right: [place] 08/07/2018 6195-1-001 / Implanted: Qty: 1 on 04/14/2017 by Michael Hernandez MD at [facility] Knee [id number] / [id number] Cr Tibial Bearing KNEE Right: [employer] 02/18/2022 [id number] / Implanted: Qty: 1 on 04/14/2017 by Michael Hernandez MD at [facility] Knee [id number] / [id number] Cr Femoral Right KNEE Right: [employer] 03/17/2027 [id number] / Implanted: Qty: 1 on 04/14/2017 by Michael Hernandez MD at [facility] Knee [id number] / [id number] Primary Tibial Modular Tray KNEE Right: [employer] 01/16/2021 [id number] / Implanted: Qty: 1 on 04/14/2017 by Michael Hernandez MD at [facility] [place] [id number] / [id number] Standard Patella PATELLA Right: [employer] 01/22/2022 [id number] / Implanted: Qty: 1 on 04/14/2017 by Michael Hernandez MD at [facility] [place] [id number] / [id number] Screw Bone Ti 2.7mm Acumed #Co-F2710 - S2 16 Aug 23 SCREW Right: [employer] CO-F2710 / Implanted: Qty: 2 on 08/14/2016 by Biju Middleton MD at [facility] 2 16 AUG 23 / NA Description:right mcp joint Screw Bone Ti 2.7mm Acumed #Co-F2712 - S2 16 Aug 23 SCREW Right: Hand [employer] CO-F2712 / Implanted: Qty: 1 on 08/14/2016 by Biju Middleton MD at [facility] 2 16 AUG 23 / NA Description:right mcp joint Screw Bone Ti 2.7mm Acumed #Co-F2708 - Sor Sterlization SCREW Right: Hand [employer] CO-F2708 / Implanted: Qty: 1 on 08/14/2016 by Biju Middleton MD at [facility] OR STERLIZATION / OR STERILIZATION Description:Load # Screw Bone Ti 2.7mm Acumed #Co-F2706 - [id number] SCREW Right: Hand [employer] CO-F2706 / Implanted: Qty: 1 on 08/14/2016 by Biju Middleton MD at [facility] N/A / N/A Bone Screw SCREW Right: Knee [employer] 10/27/2026 [id number] / Implanted: Qty: 1 on 04/14/2017 by Michael Hernandez MD at [facility] [id number] / [id number] Bone Screw SCREW Right: Knee [employer] 08/15/2026 [id number] / Implanted: Qty: 1 on 04/14/2017 by Michael Hernandez MD at [facility] [id number] / [id number] Bone Screw SCREW Right: Knee [employer] 10/27/2026 [id number] / Implanted: Qty: 1 on 04/14/2017 by Michael Hernandez MD at [facility] [id number] / [id number] Bone Screw SCREW Right: Knee [employer] 08/21/2025 [id number] / Implanted: Qty: 1 on 04/14/2017 by Michael Hernandez MD at [facility] [id number] / [id number] Modular Finned Stem Stem Right: Knee [employer] 02/12/2027 [id number] / Implanted: Qty: 1 on 04/14/2017 by Michael Hernandez MD at [facility] [id number] / [id number] Cammulated Interference Screw Right: Hand [employer] 11/01/2020 [id number] / Implanted: Qty: 2 on 05/06/2016 by Biju Middleton MD at [facility] N/A / [id number] Mcp Fusion Plate, Right Right: Hand [employer] PL-MCPR / Implanted: Qty: 1 on 08/14/2016 by Biju Middleton MD at [facility] AT [facility] 2 16 AUG 23 documented as of this encounter Procedures Procedure Name Priority Date/Time Associated Comments Diagnosis URINALYSIS STAT 09/24/2019 1:07 PM Low back pain at Results for this ASSISTANT PROFESSOR OF PSYCHOLOGY multiple sites procedure are in the results section. NOTICE OF PRIVACY Routine 09/24/2019 12:40 PM PRACTICES ASSISTANT PROFESSOR OF PSYCHOLOGY documented in this encounter Results URINALYSIS (09/24/2019 1:07 PM ASSISTANT PROFESSOR OF PSYCHOLOGY) APPEARANCE Hazy (A) Clear [facility] COLOR Yellow Yellow [facility] PH 5.0 4.8 - 8.0 [facility] SP GRAVITY 1.023 1.003 - 1.030 [facility] GLU U QUAL Normal Normal [facility] BLOOD Negative Negative [facility] KETONES Negative Negative [facility] PROTEIN Negative Negative [facility] UROBILIN 2.0 mg/dL (A) Normal [facility] BILIRUBIN Negative Negative [facility] NITRITE Negative Negative [facility] LEUK ANGEL Negative Negative [facility] RBC/HPF 14 (H) 0 - 3 HPF [facility] WBC/HPF 15 (H) 0 - 5 HPF [facility] BACTERIA Few (A) Negative [facility] SQ EPITH 2 HPF [facility] Specimen Urine - URINE, CLEAN CATCH Performing Organization Address City/State/Zipcode Phone Number [facility] CLIA: [id number], [address] [place] [address] documented in this encounter Visit Diagnoses Diagnosis Acute cystitis without hematuria - Primary Acute cystitis Low back pain at multiple sites documented in this encounter Administered Medications Medication Order MAR Action Action Date Dose Rate Site acetaminophen (TYLENOL) tablet Given 09/24/2019 1:33 PM ASSISTANT PROFESSOR OF PSYCHOLOGY 650 mg 650 mg 650 mg, Oral, ONCE, 1 dose, Fri09/24/19 at 1415, YURIY cephALEXin (KEFLEX) capsule 500 mg Given 09/24/2019 2:58 PM ASSISTANT PROFESSOR OF PSYCHOLOGY 500 mg 500 mg, Oral, ONCE, 1 dose, Fri09/24/19 at 1600, YURIY, Reason for Anti-Infective: Documented Infection, Documented Infection Site: Urine, Duration of Therapy: 7 days cyclobenzaprine (FLEXERIL) tablet 10 mg Given 09/24/2019 1:33 PM ASSISTANT PROFESSOR OF PSYCHOLOGY 10 mg 10 mg, Oral, ONCE, 1 dose, Fri09/24/19 at 1415, YURIY FENTanyl PF (SUBLIMAZE (PF)) injection 50 Given 09/24/2019 1:33 PM ASSISTANT PROFESSOR OF PSYCHOLOGY Right Arm mcg 50 mcg, Intramuscular, ONCE, 1 dose, Fri09/24/19 at 1415, STAT HYDROcodone-acetaminophen (NORCO) 10-325 Given 09/24/2019 2:45 PM ASSISTANT PROFESSOR OF PSYCHOLOGY 1 tablet mg tablet 1 tablet 1 tablet, Oral, ONCE, 1 dose, Fri09/24/19 at 1530, YURIY documented in this encounter Insurance Payer Benefit Plan / Subscriber ID Effective Phone Address Type Group Dates ANTHONY CRUZ xxxxxxxxx 2015-Srinivasan SANTILLAN Medicaid HEALTHCARE - [facility] [place] [id number] MANAGED MEDICAID [place] documented as of this encounter Advance Directives Name Relationship Healthcare Agent Communication Relationship Kj Odonnell Life Partner Primary healthcare agent
--- OUTSIDE RECORDS SUMMARY | 2019-11-19 06:01 | XMS REPORT | Summary of Care ---
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 [address] [place] [phone] Reason for Visit Reason Comments Back Pain Auth/Cert Status Reason Specialty Diagnoses / Referred By Referred To Procedures Contact Contact Emergency Medicine [facility] [address] [place] [address] [place] [address] Encounter Details Date Type Department Care Team Description 09/24/2019 - Emergency [facility]Emergency Angie Hayden, Acute right-sided low back pain without sciatica (Primary Dx); 09/25/2019 Department 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 Right flank pain; [address] [place] [address] [place] [address] Bilateral low back pain without sciatica, unspecified chronicity [address] [phone] Allergies Active Allergy Reactions Severity Noted Date [...] as of this encounter (statuses as of 09/25/2019) Medications Medication Sig Dispensed Refills Start Date [...] as of this encounter (statuses as of 09/25/2019) Active Problems Problem Noted Date Intractable nausea [...] mellitus without complications Overview: ICD10 Diagnosis Term Auto Clutch Specialist Utility documented as of this encounter (statuses as of 09/25/2019) Resolved Problems Problem Noted Date Resolved Date [...] as of this encounter (statuses as of 09/25/2019) Immunizations Name Administration Dates Next Due Influenza [...] Sign Reading Time Taken Comments Blood Pressure 139/89 09/24/2019 11:16 PM HEALTH PROFESSOR Pulse 60 09/24/2019 11:16 PM HEALTH PROFESSOR Temperature 36.7 C (98.1 F) 09/24/2019 11:16 PM HEALTH PROFESSOR Respiratory Rate 18 09/24/2019 11:16 PM HEALTH PROFESSOR Oxygen Saturation 100% 09/24/2019 11:16 PM HEALTH PROFESSOR Inhaled Oxygen Concentration - - Weight 96.2 kg (212 lb) 09/24/2019 11:16 PM HEALTH PROFESSOR Height - - Body Mass Index 38.78 09/24/2019 12:51 PM HEALTH PROFESSOR documented in this encounter Discharge Instructions Angie Teague, 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 - 09/25/2019 DIAGNOSIS 1. Flank pain 2. Low back pain NO LIFE-THREATENING FINDINGS ON TODAY'S EXAM. PROCEDURES IN THE ER TODAY: Orders Placed This Encounter Procedures CT ABDOMEN PELVIS WO CONTRAST MEDICATIONS ADMINISTERED IN THE ER TODAY: Medications ondansetron (ZOFRAN-ODT) disintegrating tablet 4 mg (has no administration in time range) YOUR PRESCRIPTIONS AND LXVQ-FLJ-NQTIBGE MEDICATION RECOMMENDATIONS: New Prescriptions No medications on file FOLLOW-UP RECOMMENDATIONS: RECOMMEND FOLLOW-UP WITH A PRIMARY CARE PROVIDER OR SPECIALIST IN 2-3 DAYS, ESPECIALLY IF NO IMPROVEMENT IN SYMPTOMS. TO FOLLOW-UP WITHIN THE [facility], TRY THESE OPTIONS (CLINIC APPOINTMENTS AVAILABLE ON DSSK-ME-BBNE BASIS): 1. SCHEDULE AN APPOINTMENT ONLINE AT [email or web address] 2. OR CALL THE [facility] AT OR 3. OR CALL YOUR [facility] PHYSICIAN'S OFFICE DIRECTLY IF YOU ARE ALREADY AN ESTABLISHED [facility] PATIENT. OR, YOU MAY FOLLOW-UP WITH A PROVIDER OF YOUR CHOICE, SUCH : 1. A PHYSICIAN OF YOUR CHOICE 2. [facility], . LOCATIONS IN [facility] 3. [facility], [address] [place] [address]; [phone] RETURN TO ER FOR WORSENING OF SYMPTOMS. AttachmentsThe following attachments cannot be sent through Care Everywhere.Pain , Measuring Your (Iranian)documented in this encounter Plan of Treatment Date Type Specialty Care Team Description 01/21/2020 Office Visit Internal Medicine Bernice Arzate MD [address] [place] [phone] Health Maintenance Due Date Last Done Comments [...] of this encounter Implants Implanted Type Area Canvas Cutter Hand Device Shelf Model / Identifier Expiration Serial / Lot Date Dbm Sonny Maxxeus .5cc Cts #2014-40 - Sn/A BONE Right: Community Tissue 03/07/2018 / Implanted: Qty: 1 on 08/14/2016 by Biju Middleton MD at [facility] AT [facility] N/A / [id number] Cement CEMENT Right: [place] 08/07/2018 6195-1-001 / Implanted: Qty: 1 on 04/14/2017 by Michael Hernandez MD at [facility] Knee [id number] / [id number] Cr Tibial Bearing KNEE Right: Biomet 02/18/2022 [id number] / Implanted: Qty: 1 on 04/14/2017 by Michael Hernandez MD at [facility] Knee [id number] / [id number] Cr Femoral Right KNEE Right: Biomet 03/17/2027 [id number] / Implanted: Qty: 1 on 04/14/2017 by Michael Hernandez MD at [facility] Knee [id number] / [id number] Primary Tibial Modular Tray KNEE Right: [employer]omet 01/16/2021 [id number] / Implanted: Qty: 1 on 04/14/2017 by Michael Hernandez MD at [facility] Knee [id number] / [id number] Standard Patella PATELLA Right: Biomet 01/22/2022 [id number] / Implanted: Qty: 1 on 04/14/2017 by Michael Hernandez MD at [facility] Knee [id number] / [id number] Screw Bone Ti 2.7mm Acumed #Co-F2710 - S2 16 Aug 23 SCREW Right: [employer] CO-F2710 / Implanted: Qty: 2 on 08/14/2016 by Biju Middleton MD at [facility] AT [facility] 2 16 AUG 23 / NA Description:right mcp joint Screw Bone Ti 2.7mm Acumed #Co-F2712 - S2 Aug 23 SCREW Right: Hand [employer] CO-F2712 / Implanted: Qty: 1 on 08/14/2016 by Biju Middleton MD at [facility] AT [facility] 2 16 AUG 23 / NA Description:right mcp joint Screw Bone Ti 2.7mm Acumed #Co-F2708 - Sor Sterlization SCREW Right: Hand [employer] CO-F2708 / Implanted: Qty: 1 on 08/14/2016 by Biju Middleton MD at [facility] AT [facility] OR STERLIZATION / OR STERILIZATION Description:Load # Screw Bone Ti 2.7mm Acumed #Co-F2706 - [id number] SCREW Right: Hand [employer] CO-F2706 / Implanted: Qty: 1 on 08/14/2016 by Biju Middleton MD at [facility] AT [facility] N/A / N/A Bone Screw SCREW Right: Knee [employer]omet 10/27/2026 [id number] / Implanted: Qty: 1 on 04/14/2017 by Michael Hernandez MD at [facility] [id number] / [id number] Bone Screw SCREW Right: Knee [employer] 08/15/2026 [id number] / Implanted: Qty: 1 on 04/14/2017 by Michael Hernandez MD at [facility] [id number] / [id number] Bone Screw SCREW Right: Knee [employer] 10/27/2026 [id number] / Implanted: Qty: 1 on 04/14/2017 by Michael Hernandez MD at [facility] [id number] / [id number] Bone Screw SCREW Right: Knee [employer] 08/21/2025 [id number] / Implanted: Qty: 1 on 04/14/2017 by Michael Hernandez MD at [facility] [id number] / [id number] Modular Finned Stem Stem Right: Knee [employer]omet 02/12/2027 [id number] / Implanted: Qty: 1 on 04/14/2017 by Michael Hernandez MD at [facility] [id number] / [id number] Cammulated Interference Screw Right: Hand [employer]omet 11/01/2020 [id number] / Implanted: Qty: 2 on 05/06/2016 by Biju Middleton MD at [facility] AT [facility] N/A / [id number] Mcp Fusion Plate, Right Right: Hand [employer] PL-MCPR / Implanted: Qty: 1 on 08/14/2016 by Biju Middleton MD at [facility] 2 16 AUG 23 documented as of this encounter Procedures Procedure Name Priority Date/Time Associated Diagnosis Comments CT ABDOMEN PELVIS STAT 09/24/2019 11:44 PM Right flank pain Results for this WO CONTRAST HEALTH PROFESSOR Bilateral low back procedure are in pain without the results sciatica, section. unspecified chronicity documented in this encounter Results CT ABDOMEN PELVIS WO CONTRAST (09/24/2019 11:44 PM HEALTH PROFESSOR) Specimen Impressions Performed At Previous abdominal and gastric surgery. No bowel distention or PACS/VR/DOSE obstruction. 2. Slightly plump appendix but no surrounding edema. This is likely normal. 3. Absent gallbladder. 4. No nephrolithiasis or hydronephrosis. RL: 5611 AFC: [id number] END OF REPORT Narrative Performed At Ordering Physician: ANGIE HAYDEN PACS/VR/DOSE Clinical Indication: Flank pain, stone disease suspected right flank, lower back pain Additional Clinical Information: Comparison: 09/02/2019 Technique: CT scan of the abdomen and pelvis is obtained without contrast. CT Scan was performed using ALARA principles. Findings: Previous study show no acute process. On today's exam, the lung bases are clear. The heart size is normal. Unenhanced liver and spleen are normal. Gallbladder is absent. Previous gastric surgery. Adrenal glands and pancreas are normal. There is no nephrolithiasis or hydronephrosis. The unopacified small bowel: Normal caliber. The appendix is plump but shows no inflammatory edema. In the lower pelvis the bladder is normal. There is a moderate size fecal at the rectum. There is no adnexal mass or free fluid. Procedure Note [facility], Radiant Results Inft User - 09/25/2019 12:07 AM HEALTH PROFESSOR Ordering Physician: ANGIE HAYDEN Clinical Indication: Flank pain, stone disease suspected right flank, lower back pain Additional Clinical Information: Comparison: 09/02/2019 Technique: CT scan of the abdomen and pelvis is obtained without contrast. CT Scan was performed using ALARA principles. Findings: Previous study show no acute process. On today's exam, the lung bases are clear. The heart size is normal. Unenhanced liver and spleen are normal. Gallbladder is absent. Previous gastric surgery. Adrenal glands and pancreas are normal. There is no nephrolithiasis or hydronephrosis. The unopacified small bowel: Normal caliber. The appendix is plump but shows no inflammatory edema. In the lower pelvis the bladder is normal. There is a moderate size fecal at the rectum. There is no adnexal mass or free fluid. IMPRESSION Previous abdominal and gastric surgery. No bowel distention or obstruction. 2. Slightly plump appendix but no surrounding edema. This is likely normal. 3. Absent gallbladder. 4. No nephrolithiasis or hydronephrosis. RL: 5611 AFC: [id number] END OF REPORT Performing Organization Address City/State/Zipcode Phone Number PACS/VR/DOSE documented in this encounter Visit Diagnoses Diagnosis Acute right-sided low back pain without sciatica - Primary Right flank pain Abdominal pain, unspecified site Bilateral low back pain without sciatica, unspecified chronicity documented in this encounter Administered Medications Medication Order MAR Action Action Date Dose Rate Site ondansetron (ZOFRAN-ODT) Given 09/25/2019 12:14 AM HEALTH PROFESSOR 4 mg disintegrating tablet 4 mg 4 mg, Oral, ONCE, 1 dose, 09/25/19 at 0100, Routine documented in this encounter Insurance Payer Benefit Plan / Subscriber ID Effective Phone Address Type Group Dates ANTHONY CRUZ xxxxxxxxx 2015-Srinivasan S[place]ILLAN [place] [id number] MANAGED MEDICAID [place], [place] documented as of this encounter Advance Directives Name Relationship Healthcare Agent Communication Relationship Kj Odonnell Life Partner Primary healthcare agent
--- OUTSIDE RECORDS SUMMARY | 2019-11-19 06:01 | XMS REPORT | Summary of Care ---
:1970 Author Organization [facility] Address [address] [place] [address] Care Team Providers Name Role Phone Robert Radford MD Unavailable Unavailable Bernice Arzate MD Primary Care Provider Reason for Visit Reason Comments Rdaha MAIER Encounter Details Date Type Department Care Team Description 09/29/2019 Telephone [facility] Internal Bernice Arzate Forms (DARRION ) Medicine- TAVON Chambers MD [facility] [address] [place] [phone] Allergies Active Allergy Reactions Severity Noted [...] as of this encounter (statuses as of 09/29/2019) Medications Medication Sig Dispensed Refills Start Date [...] as of this encounter (statuses as of 09/29/2019) Active Problems Problem Noted Date Intractable nausea [...] mellitus without complications Overview: ICD10 Diagnosis Term Extrusion Manager Utility documented as of this encounter (statuses as of 09/29/2019) Resolved Problems Problem Noted Date Resolved Date [...] as of this encounter (statuses as of 09/29/2019) Immunizations Name Administration Dates Next Due Influenza [...] Office Visit Internal Medicine Bernice Arzate MD [address] [place] [phone] Health Maintenance Due Date Last Done Comments [...] of this encounter Implants Implanted Type Area Candles Pourer Device Shelf Model / Identifier Expiration Serial / Lot Date Dbkeven Dennis Maxxeus .5cc Cts #2014-40 - Sn/A BONE Right: Community Tissue 03/07/2018 / Implanted: Qty: 1 on 08/14/2016 by Biju Middleton MD at [facility] AT [facility] N/A / [id number] Cement CEMENT Right: [employer] 08/07/2018 6195-1-001 / Implanted: Qty: 1 on 04/14/2017 by Michael Hernandez MD at [facility] Knee [id number] / [id number] Cr Tibial Bearing KNEE Right: [employer] 02/18/2022 [id number] / Implanted: Qty: 1 on 04/14/2017 by Michael Hernandez MD at [facility] Knee [id number] / [id number] Cr Femoral Right KNEE Right: [employer] 03/17/2027 [id number] / Implanted: Qty: 1 on 04/14/2017 by Michael Hernandez MD at [facility] Knee [id number] / [id number] Primary Tibial Modular Tray KNEE Right: [employer] 01/16/2021 [id number] / Implanted: Qty: 1 on 04/14/2017 by Michael Hernandez MD at [facility] Knee [id number] / [id number] Standard Patella PATELLA Right: [employer] 01/22/2022 [id number] / Implanted: Qty: 1 on 04/14/2017 by Michael Hernandez MD at [facility] Knee [id number] / [id number] Screw Bone Ti 2.7mm Acm2M Strategiesd #Co-F2710 - S2 16 Aug 23 SCREW Right: ACPownceD [facility] CO-F2710 / Implanted: Qty: 2 on 08/14/2016 by Biju Middleton MD at [facility] AT [facility] Hand 2 16 AUG 23 / NA Description:right mcp joint Screw Bone Ti 2.7mm Acumed #Co-F2712 - S2 16 Aug 23 SCREW Right: Hand [employer] CO-F2712 / Implanted: Qty: 1 on 08/14/2016 by Biju Middleton MD at [facility] AT [facility] 2 16 AUG 23 / NA Description:right mcp joint Screw Bone Ti 2.7mm Acumed #Co-F2708 - Sor Sterlization SCREW Right: Hand [employer] CO-F2708 / Implanted: Qty: 1 on 08/14/2016 by Biju Middleton MD at [facility] AT [facility] OR STERLIZATION / OR STERILIZATION Description:Load #[id number] Screw Bone Ti 2.7mm Acumed #Co-F2706 - [id number] SCREW Right: Hand [employer] CO-F2706 / Implanted: Qty: 1 on 08/14/2016 by Biju Middleton MD at [facility] N/A / N/A Bone Screw SCREW Right: Knee [employer] 10/27/2026 [id number] / Implanted: Qty: 1 on 04/14/2017 by Michael Hernandez MD at [facility] [id number] / [id number] Bone Screw SCREW Right: Knee [employer] 08/15/2026 [id number] / Implanted: Qty: 1 on 04/14/2017 by Michael Hernandez MD at [facility] [id number] / [id number] Bone Screw SCREW Right: Knee [employer] 10/27/2026 [id number] / Implanted: Qty: 1 on 04/14/2017 by Michael Hernandez MD at [facility] [id number] / [id number] Bone Screw SCREW Right: Knee [employer] 08/21/2025 [id number] / Implanted: Qty: 1 on 04/14/2017 by Michael Hernandez MD at [facility] [id number] / [id number] Modular Finned Stem Stem Right: Knee [employer] 02/12/2027 [id number] / Implanted: Qty: 1 on 04/14/2017 by Michael Hernandez MD at [facility] [id number] / [id number] Cammulated Interference Screw Right: Hand [employer] 11/01/2020 [id number] / Implanted: Qty: 2 on 05/06/2016 by Biju Middleton MD at [facility] AT [facility] N/A / [id number] Mcp Fusion Plate, Right Right: Hand [employer] PL-MCPR / Implanted: Qty: 1 on 08/14/2016 by Biju Middleton MD at [facility] AT [facility] 2 AUG 23 documented as of this encounter Results Not on filedocumented in this encounter Insurance Payer Benefit Plan / Subscriber ID Effective Phone Address Type Group Dates ANTHONY CRUZ xxxxxxxxx 2015-Srinivasan [place] Medicaid HEALTHCARE [place] [facility] [place] [id number] MANAGED MEDICAID [place] documented as of this encounter
--- OUTSIDE RECORDS SUMMARY | 2019-11-19 06:02 | XMS REPORT | Summary of Care ---
:1970 Author Organization [facility] Address [address] [place] [address] Care Team Providers Name Role Phone Robert Radford MD Unavailable Unavailable Bernice Arzate MD Primary Care Provider Reason for Visit Reason Comments Refill Request pantoprazole delisa ferrer 40mg Encounter Details Date Type Department Care Team Description 10/04/2019 Refill [facility] Internal Gorge Hagen DO Refill Request Medicine- [address] (pantoprazole sod [facility] [place] 40mg ) [address] [facility] [address] [place], [place] [phone] [address] [phone] Allergies Active Allergy Reactions Severity Noted Date [...] as of this encounter (statuses as of 10/05/2019) Medications Medication Sig Dispensed Refills Start End Date Status Date PROAIR HFA 90 Inhale 1 Puff 0 Active mcg/actuation every 4 (four) 6 inhaler hours as needed. ondansetron 4 mg Take 1 tablet 12 tablet 0 Active tabletIndications: by mouth every 9 Left upper quadrant 8 (eight) pain, Nausea and hours as vomiting in adult needed for patient Nausea and Vomiting (N/V). hydrocortisone-pramo Insert 1 10 g 1 Active vine (PROCTOFOAM HC) Applicator 9 rectal into rectum 2 foamIndications: (two) times Rectal pain daily. CETIRIZINE 10 mg TAKE 1 TABLET 30 tablet 2 Active tabletIndications: BY MOUTH EVERY 9 Chronic fatigue, DAY Hypothyroidism, unspecified type DULOXETINE 30 mg TAKE 1 CAPSULE 90 capsule 1 Active capsuleIndications: BY MOUTH EVERY 9 Neuropathy DAY SUMAtriptan Take 50 mg by 0 Active (IMITREX) 50 mg mouth every 24 tablet (twenty-four) hours as needed for Migraine. LEVOTHYROXINE 50 mcg TAKE 1 TABLET 30 tablet 2 Active tabletIndications: BY MOUTH EVERY 0 Hypothyroidism, DAY IN THE unspecified type MORNING ESTRADIOL 1 mg TAKE 1 TABLET 30 tablet 0 Active tabletIndications: BY MOUTH EVERY 0 Menopausal problem DAY LINZESS 290 mcg TAKE 1 CAPSULE 30 capsule 2 Active CapIndications: BY MOUTH EVERY 0 Chronic fatigue, DAY Hypothyroidism, unspecified type zolpidem (AMBIEN) 5 Take 1 tablet 0 Active mg tablet by mouth at 9 bedtime as needed. lisinopril 20 mg Take 1 tablet 90 tablet 1 Active tablet by mouth 0 daily. acetaminophen-codein Take 1 tablet 15 tablet 0 Active e (TYLENOL-CODEINE by mouth every 0 #3) 300-30 mg 6 (six) hours tabletIndications: as needed for Acute cystitis Pain (scale without hematuria 7-10) for up to 15 doses. pantoprazole 40 mg Take 1 tablet 30 tablet 2 Active EC by mouth 0 tabletIndications: daily. Gastroesophageal reflux disease without esophagitis pantoprazole 40 mg Take 1 tablet 30 tablet 2 10/05/19 Discontinued EC by mouth 9 20 (Reorder) tabletIndications: daily. Gastroesophageal reflux disease without esophagitis documented as of this encounter (statuses as of 10/05/2019) Active Problems Problem Noted Date Intractable nausea [...] mellitus without complications Overview: ICD10 Diagnosis Term Hod Carrier Utility documented as of this encounter (statuses as of 10/05/2019) Resolved Problems Problem Noted Date Resolved Date [...] as of this encounter (statuses as of 10/05/2019) Immunizations Name Administration Dates Next Due Influenza [...] Office Visit Internal Medicine Bernice Arzate MD [address] [place] [phone] Health Maintenance Due Date Last Done [...] of this encounter Implants Implanted Type Area Director Of Admissions Device Shelf Model / Identifier Expiration Serial / Lot Date Ana Dennis Maxxeus .5cc Cts #2014-40 - Sn/A BONE Right: Community Tissue 03/07/2018 / Implanted: Qty: 1 on 08/14/2016 by Biju Middleton MD at [facility] N/A / [id number] Cement CEMENT Right: [place] 08/07/2018 6195-1-001 / Implanted: Qty: 1 on 04/14/2017 by Michael Hernandez MD at [facility] Knee [id number] / [id number] Cr Tibial Bearing KNEE Right: [employer] 02/18/2022 [id number] / Implanted: Qty: 1 on 04/14/2017 by Michael Hernandez MD at [facility] Knee [id number] / [id number] Cr Femoral Right KNEE Right: [employer] 03/17/2027 [id number] / Implanted: Qty: 1 on 04/14/2017 by Michael Hernandez MD at [facility] Knee [id number] / [id number] Primary Tibial Modular Tray KNEE Right: [employer] 01/16/2021 [id number] / Implanted: Qty: 1 on 04/14/2017 by Michael Hernandez MD at [facility] Knee [id number] / [id number] Standard Patella PATELLA Right: [employer]omet 01/22/2022 [id number] / Implanted: Qty: 1 on 04/14/2017 by Michael Hernandez MD at [facility] Knee [id number] / [id number] Screw Bone Ti 2.7mm Acumed #Co-F2710 - S2 16 Aug 23 SCREW Right: [employer] CO-F2710 / Implanted: Qty: 2 on 08/14/2016 by Biju Middleton MD at [facility] 2 16 AUG 23 / NA Description:right mcp joint Screw Bone Ti 2.7mm Acumed #Co-F2712 - S2 16 Aug 23 SCREW Right: Hand [employer] CO-F2712 / Implanted: Qty: 1 on 08/14/2016 by Biju Middleton MD at [facility] AT [facility] 2 16 AUG 23 / NA Description:right mcp joint Screw Bone Ti 2.7mm Acumed #Co-F2708 - Sor Sterlization SCREW Right: Hand [employer] CO-F2708 / Implanted: Qty: 1 on 08/14/2016 by Biju Middleton MD at [facility] OR STERLIZATION / OR STERILIZATION Description:Load # Screw Bone Ti 2.7mm Acumed #Co-F2706 - [id number] SCREW Right: Hand [employer] CO-F2706 / Implanted: Qty: 1 on 08/14/2016 by Biju Middleton MD at [facility] N/A / N/A Bone Screw SCREW Right: Knee [employer]omet 10/27/2026 [id number] / Implanted: Qty: 1 on 04/14/2017 by Michael Hernandez MD at [facility] [id number] / [id number] Bone Screw SCREW Right: Knee [employer] 08/15/2026 [id number] / Implanted: Qty: 1 on 04/14/2017 by Michael Hernandez MD at [facility] [id number] / [id number] Bone Screw SCREW Right: Knee [employer] 10/27/2026 [id number] / Implanted: Qty: 1 on 04/14/2017 by Michael Hernandez MD at [facility] [id number] / [id number] Bone Screw SCREW Right: Knee [employer] 08/21/2025 [id number] / Implanted: Qty: 1 on 04/14/2017 by Michael Hernandez MD at [facility] [id number] / [id number] Modular Finned Stem Stem Right: Knee [employer] 02/12/2027 [id number] / Implanted: Qty: 1 on 04/14/2017 by Michael Hernandez MD at [facility] [id number] / [id number] Cammulated Interference Screw Right: Hand [employer]omet 11/01/2020 [id number] / Implanted: Qty: 2 on 05/06/2016 by Biju Middleton MD at [facility] N/A / [id number] Mcp Fusion Plate, Right Right: Hand [employer] PL-MCPR / Implanted: Qty: 1 on 08/14/2016 by Biju Middleton MD at [facility] 2 AUG 23 documented as of this encounter Results Not on filedocumented in this encounter Visit Diagnoses Diagnosis Gastroesophageal reflux disease without esophagitis Esophageal reflux documented in this encounter Insurance Payer Benefit Plan / Subscriber ID Effective Phone Address Type Group Dates ANTHONY CRUZ xxxxxxxxx 2015-Srinivasan SANTILLAN Medicaid [place] [id number] [place] MEDICA[place] documented as of this encounter
--- OUTSIDE RECORDS SUMMARY | 2019-11-19 06:02 | XMS REPORT | Summary of Care ---
:1970 Author Organization [facility] Address [address] [place] [address] Care Team Providers Name Role Phone Robert Radford MD Unavailable Unavailable Bernice Arzate MD Primary Care Provider Reason for Visit Reason Comments Forms COVER MY MEDS Encounter Details Date Type Department Care Team Description 10/18/2019 Telephone [facility] Internal Bernice Arzate Forms (COVER MY Medicine- TAVON Chambers MD MEDS) [facility] [address] [place] [phone] Allergies Active Allergy Reactions Severity Noted Date [...] as of this encounter (statuses as of 10/18/2019) Medications Medication Sig Dispensed Refills Start Date [...] as of this encounter (statuses as of 10/18/2019) Active Problems Problem Noted Date Intractable nausea [...] mellitus without complications Overview: ICD10 Diagnosis Term 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 [place] [address] 01/21/2020 Office Visit Internal Medicine Bernice Arzate MD [address] [place] [phone] Health Maintenance Due Date Last Done Comments [...] of this encounter Implants Implanted Type Area Display Maker Device Shelf Model / Identifier Expiration Serial / Lot Date Dbm Sonny Maxxeus .5cc Cts #2014-40 - Sn/A BONE Right: Community Tissue 03/07/2018 / Implanted: Qty: 1 on 08/14/2016 by Biju Middleton MD at [facility] AT [facility] N/A / [id number] Cement CEMENT Right: SocialBrowse 08/07/2018 6195-1-001 / Implanted: Qty: 1 on 04/14/2017 by Michael Hernandez MD at [facility] Knee [id number] / [id number] Cr Tibial Bearing KNEE Right: Biomet 02/18/2022 [id number] / Implanted: Qty: 1 on 04/14/2017 by Michael Hernandez MD at [facility] Knee [id number] / [id number] Cr Femoral Right KNEE Right: Biomet 03/17/2027 [id number] / Implanted: Qty: 1 on 04/14/2017 by Michael Hernandez MD at [facility] Knee [id number] / [id number] Primary Tibial Modular Tray KNEE Right: Biomet 01/16/2021 [id number] / Implanted: Qty: 1 on 04/14/2017 by Michael Hernandez MD at [facility] Knee [id number] / [id number] Standard Patella PATELLA Right: Biomet 01/22/2022 [id number] / Implanted: Qty: 1 on 04/14/2017 by Michael Hernandez MD at [facility] Knee [id number] / [id number] Screw Bone Ti 2.7mm AcClickSquaredd #Co-F2710 - S2 Aug 23 SCREW Right: BriggoD [facility] CO-F2710 / Implanted: Qty: 2 on 08/14/2016 by Biju Middleton MD at [facility] AT [facility] Hand 2 16 AUG 23 NA Description:right mcp joint Screw Bone Ti 2.7mm Acumed #Co-F2712 - S2 16 Aug 23 SCREW Right: Hand [employer] CO-F2712 / Implanted: Qty: 1 on 08/14/2016 by Biju Middleton MD at [facility] AT [facility] 2 16 AUG 23 / NA Description:right mcp joint Screw Bone Ti 2.7mm Acumed #Co-F2708 - Sor Sterlization SCREW Right: Hand [employer] CO-F2708 / Implanted: Qty: 1 on 08/14/2016 by Biju Middleton MD at [facility] AT [facility] OR STERLIZATION / OR STERILIZATION Description:Load #[id number] Screw Bone Ti 2.7mm Acumed #Co-F2706 - [id number] SCREW Right: Hand [employer] CO-F2706 / Implanted: Qty: 1 on 08/14/2016 by Biju Middleton MD at [facility] N/A / N/A Bone Screw SCREW Right: Knee Biomet 10/27/2026 [id number] / Implanted: Qty: 1 on 04/14/2017 by Michael Hernandez MD at [facility] [id number] / [id number] Bone Screw SCREW Right: Knee Biomet 08/15/2026 [id number] / Implanted: Qty: 1 on 04/14/2017 by Michael Hernandez MD at [facility] [id number] / [id number] Bone Screw SCREW Right: Knee [employer]omet 10/27/2026 [id number] / Implanted: Qty: 1 on 04/14/2017 by Michael Hernandez MD at [facility] [id number] / [id number] Bone Screw SCREW Right: Knee Biomet 08/21/2025 [id number] / Implanted: Qty: 1 on 04/14/2017 by Michael Hernandez MD at [facility] [id number] / [id number] Modular Finned Stem Stem Right: Knee [employer]omet 02/12/2027 058369 / Implanted: Qty: 1 on 04/14/2017 by Michael Hernandez MD at [facility] [id number] / [id number] Cammulated Interference Screw Right: Hand Biomet 11/01/2020 [id number] / Implanted: Qty: 2 on 05/06/2016 by Biju Middleton MD at [facility] AT [facility] N/A / [id number] Mcp Fusion Plate, Right Right: Hand [employer] PL-MCPR / Implanted: Qty: 1 on 08/14/2016 by Biju Middleton MD at [facility] AT [facility] 2 AUG 23 documented as of this encounter Results Not on filedocumented in this encounter Insurance Payer Benefit Plan / Subscriber ID Effective Phone Address Type Group Dates ANTHONY CRUZ xxxxxxxxx 2015-Srinivasan SANTILLAN Medicaid HEALTHCARE - [facility] [place] [address] MANAGED MEDICAID [place]ICA[place] documented as of this encounter
--- OUTSIDE RECORDS SUMMARY | 2019-11-19 06:02 | XMS REPORT | Summary of Care ---
:1970 Author Organization [facility] Address [address] [place] [address] Care Team Providers Name Role Phone Robert Radford MD Unavailable Unavailable Bernice Arzate MD Primary Care Provider Reason for Visit Reason Comments Refill Request Encounter Details Date Type Department Care Team Description 10/14/2019 Refill [facility] Internal Bernice Arzate, Refill Request Medicine- Multispecialty [address] [phone] [place] [address] Allergies Active Allergy Reactions Severity [...] 10/18/2019) Medications Medication Sig Dispensed Refills Start End Date Status Date PROAIR HFA 90 Inhale 1 Puff 0 Active mcg/actuation inhaler every 4 (four) 6 hours as needed. ondansetron 4 mg Take 1 tablet 12 tablet 0 Active tabletIndications: by mouth every 9 Left upper quadrant 8 (eight) hours pain, Nausea and as needed for vomiting in adult Nausea and patient Vomiting (N/V). hydrocortisone-pramov Insert 1 10 g 1 Active ine (PROCTOFOAM HC) Applicator into 9 rectal rectum 2 (two) foamIndications: times daily. Rectal pain CETIRIZINE 10 mg TAKE 1 TABLET 30 tablet 2 Active tabletIndications: BY MOUTH EVERY 9 Chronic fatigue, DAY Hypothyroidism, unspecified type DULOXETINE 30 mg TAKE 1 CAPSULE 90 capsule 1 Active capsuleIndications: BY MOUTH EVERY 9 Neuropathy DAY SUMAtriptan (IMITREX) Take 50 mg by 0 Active 50 mg tablet mouth every 24 (twenty-four) hours as needed for Migraine. LEVOTHYROXINE 50 mcg TAKE 1 TABLET 30 tablet 2 Active tabletIndications: BY MOUTH EVERY 0 Hypothyroidism, DAY IN THE unspecified type MORNING LINZESS 290 mcg TAKE 1 CAPSULE 30 capsule 2 Active CapIndications: BY MOUTH EVERY 0 Chronic fatigue, DAY Hypothyroidism, unspecified type zolpidem (AMBIEN) 5 Take 1 tablet 0 Active mg tablet by mouth at 9 bedtime as needed. lisinopril 20 mg Take 1 tablet 90 tablet 1 Active tablet by mouth daily. 0 acetaminophen-codeine Take 1 tablet 15 tablet 0 Active (TYLENOL-CODEINE #3) by mouth every 0 300-30 mg 6 (six) hours tabletIndications: as needed for Acute cystitis Pain (scale without hematuria 7-10) for up to 15 doses. pantoprazole 40 mg EC Take 1 tablet 30 tablet 2 Active tabletIndications: by mouth daily. 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 [place] [address] [phone] 01/21/2020 Office Visit Internal Medicine Bernice Arzate MD [address] [place] [phone] Health Maintenance Due Date Last Done Comments [...] of this encounter Implants Implanted Type Area Bridge Tender Device Shelf Model / Identifier Expiration Serial / Lot Date Dbm Sonny Maxxeus .5cc Cts #2014-40 - Sn/A BONE Right: Community Tissue 03/07/2018 / Implanted: Qty: 1 on 08/14/2016 by Biju Middleton MD at [facility] AT [facility] N/A / [id number] Cement CEMENT Right: Saiguo 08/07/2018 6195-1-001 / Implanted: Qty: 1 on 04/14/2017 by Michael Hernandez MD at [facility] Knee [id number] / [id number] Cr Tibial Bearing KNEE Right: Biomet 02/18/2022 [id number] / Implanted: Qty: 1 on 04/14/2017 by Michael Hernandez MD at [facility] Knee [id number] / [id number] Cr Femoral Right KNEE Right: Biomet 03/17/2027 170219 / Implanted: Qty: 1 on 04/14/2017 by Michael Hernandez MD at [facility] Knee [id number] / [id number] Primary Tibial Modular Tray KNEE Right: Biomet 01/16/2021 [id number] / Implanted: Qty: 1 on 04/14/2017 by Michael Hernandez MD at [facility] Knee [id number] / [id number] Standard Patella PATELLA Right: Biomet 01/22/2022 [id number] / Implanted: Qty: 1 on 04/14/2017 by Michael Hernandez MD at [facility] Knee [id number] / [id number] Screw Bone Ti 2.7mm Acumed #Co-F2710 - S2 Aug 23 SCREW Right: [employer] CO-F2710 / Implanted: Qty: 2 on 08/14/2016 by Biju Middleton MD at [facility] AT [facility] 2 16 AUG 23 / NA Description:right mcp joint Screw Bone Ti 2.7mm Acumed #Co-F2712 - S2 Aug 23 SCREW Right: Hand [employer] CO-F2712 / Implanted: Qty: 1 on 08/14/2016 by Biju Middleton MD at [facility] AT [facility] 2 16 AUG 23 / NA Description:right mcp joint Screw Bone Ti 2.7mm Acumed #Co-F2708 - Sor Sterlization SCREW Right: Hand [employer] CO-F2708 / Implanted: Qty: 1 on 08/14/2016 by Biju Middleton MD at [facility] AT [facility] OR STERLIZATION / OR STERILIZATION Description:Load #[id number] Screw Bone Ti 2.7mm Acumed #Co-F2706 - [id number] SCREW Right: Hand [employer] CO-F2706 / Implanted: Qty: 1 on 08/14/2016 by Biju Middleton MD at [facility] N/A / N/A Bone Screw SCREW Right: Knee Biomet 10/27/2026 717017 / Implanted: Qty: 1 on 04/14/2017 by Michael Hernandez MD at [facility] [id number] / [id number] Bone Screw SCREW Right: Knee Biomet 08/15/2026 185220 / Implanted: Qty: 1 on 04/14/2017 by Michael Hernandez MD at [facility] [id number] / [id number] Bone Screw SCREW Right: Knee Biomet 10/27/2026 800436 / Implanted: Qty: 1 on 04/14/2017 by Michael Hernandez MD at [facility] [id number] / [id number] Bone Screw SCREW Right: Knee Biomet 08/21/2025 155894 / Implanted: Qty: 1 on 04/14/2017 by Michael Hernandez MD at [facility] [id number] / [id number] Modular Finned Stem Stem Right: Knee Biomet 02/12/2027 226656 / Implanted: Qty: 1 on 04/14/2017 by Michael Hernandez MD at [facility] [id number] / [id number] Cammulated Interference Screw Right: Hand Biomet 11/01/2020 [id number] / Implanted: Qty: 2 on 05/06/2016 by Biju Middleton MD at [facility] AT [facility] N/A / [id number] Mcp Fusion Plate, Right Right: Hand [employer] PL-MCPR / Implanted: Qty: 1 on 08/14/2016 by Biju Middleton MD at [facility] AT [facility] 2 16 16AUG 23 documented as of this encounter Results Not on filedocumented in this encounter Visit Diagnoses Diagnosis Menopausal problem Unspecified menopausal and postmenopausal disorder documented in this encounter Insurance Payer Benefit Plan / Subscriber ID Effective Phone Address Type Group Dates ANTHONY CRUZ xxxxxxxxx 2015-Srinivasan [address] Medicaid HEALTHCARE [place] [facility] [place] [id number] MANAGED MEDICAID [place] documented as of this encounter
--- OUTSIDE RECORDS SUMMARY | 2019-11-19 06:03 | XMS REPORT | Summary of Care ---
:1970 Author Organization [facility] Address [address] [place] [address] Care Team Providers Name Role Phone Robert Radford MD Unavailable Unavailable Bernice Arzate MD Primary Care Provider Reason for Visit Reason Comments Forms COVER MY MEDS Encounter Details Date Type Department Care Team Description 10/18/2019 Telephone [facility] Internal Bernice Arzate Forms (COVER MY Medicine- TAVON Chambers MD MEDS) [facility] [address] [place] [phone] Allergies Active Allergy Reactions Severity Noted Date [...] mellitus without complications Overview: ICD10 Diagnosis Term 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 [place] [address] 01/21/2020 Office Visit Internal Medicine Bernice Arzate MD [address] [place] [address] [phone] Health Maintenance Due Date Last Done Comments [...] of this encounter Implants Implanted Type Area Quality Officer Device Shelf Model / Identifier Expiration Serial / Lot Date Dbm Sonny Maxxeus .5cc Cts #2014-40 - Sn/A BONE Right: Community Tissue 03/07/2018 / Implanted: Qty: 1 on 08/14/2016 by Biju Middleton MD at [facility] AT [facility] N/A / [id number] Cement CEMENT Right: Flite 08/07/2018 6195-1-001 / Implanted: Qty: 1 on 04/14/2017 by Michael Hernandez MD at [facility] Knee [id number] / [id number] Cr Tibial Bearing KNEE Right: Biomet 02/18/2022 [id number] / Implanted: Qty: 1 on 04/14/2017 by Michael Hernandez MD at [facility] Knee [id number] / [id number] Cr Femoral Right KNEE Right: Biomet 03/17/2027 799720 / Implanted: Qty: 1 on 04/14/2017 by Michael Hernandez MD at [facility] Knee [id number] / [id number] Primary Tibial Modular Tray KNEE Right: Biomet 01/16/2021 315869 / Implanted: Qty: 1 on 04/14/2017 by Michael Hernandez MD at [facility] Knee [id number] / [id number] Standard Patella PATELLA Right: Biomet 01/22/2022 955241 / Implanted: Qty: 1 on 04/14/2017 by Michael Hernandez MD at [facility] Knee [id number] / [id number] Screw Bone Ti 2.7mm AcDLC Distributorsd #Co-F2710 - S2 Aug 23 SCREW Right: GogoD [facility] CO-F2710 / Implanted: Qty: 2 on 08/14/2016 by Biju Middleton MD at [facility] AT [facility] Hand 2 16 AUG 23 NA Description:right mcp joint Screw Bone Ti 2.7mm Acumed #Co-F2712 - S2 16 Aug 23 SCREW Right: Hand [employer] CO-F2712 / Implanted: Qty: 1 on 08/14/2016 by Biju Middleton MD at [facility] AT [facility] 2 16 AUG 23 / NA Description:right mcp joint Screw Bone Ti 2.7mm Acumed #Co-F2708 - Sor Sterlization SCREW Right: Hand [employer] CO-F2708 / Implanted: Qty: 1 on 08/14/2016 by Biju Middleton MD at [facility] AT [facility] OR STERLIZATION / OR STERILIZATION Description:Load #[id number] Screw Bone Ti 2.7mm Acumed #Co-F2706 - [id number] SCREW Right: Hand [employer] CO-F2706 / Implanted: Qty: 1 on 08/14/2016 by Biju Middleton MD at [facility] N/A / N/A Bone Screw SCREW Right: Knee Biomet 10/27/2026 004809 / Implanted: Qty: 1 on 04/14/2017 by Michael Hernandez MD at [facility] [id number] / [id number] Bone Screw SCREW Right: Knee Biomet 08/15/2026 004208 / Implanted: Qty: 1 on 04/14/2017 by Michael Hernandez MD at [facility] [id number] / [id number] Bone Screw SCREW Right: Knee Biomet 10/27/2026 025176 / Implanted: Qty: 1 on 04/14/2017 by Michael Hernandez MD at [facility] [id number] / [id number] Bone Screw SCREW Right: Knee Biomet 08/21/2025 047649 / Implanted: Qty: 1 on 04/14/2017 by Michael Hernandez MD at [facility] [id number] / [id number] Modular Finned Stem Stem Right: Knee Biomet 02/12/2027 645123 / Implanted: Qty: 1 on 04/14/2017 by Michael Hernandez MD at [facility] [id number] / [id number] Cammulated Interference Screw Right: Hand Biomet 11/01/2020 453337 / Implanted: Qty: 2 on 05/06/2016 by Biju Middleton MD at [facility] N/A / [id number] Mcp Fusion Plate, Right Right: Hand [employer] PL-MCPR / Implanted: Qty: 1 on 08/14/2016 by Biju Middleton MD at [facility] AT [facility] 2 AUG 23 documented as of this encounter Results Not on filedocumented in this encounter Insurance Payer Benefit Plan / Subscriber ID Effective Phone Address Type Group Dates ANTHONY CRUZ xxxxxxxxx 2015-Srinivasan SANTILLAN Medicaid [facility]ALTHCARE [place] [facility] [place] [phone] MANAGED MEDICAID [place] documented as of this encounter
--- OUTSIDE RECORDS SUMMARY | 2019-11-19 06:03 | XMS REPORT | Summary of Care ---
:1970 Author Organization [facility] Address [address] [place] [address] Care Team Providers Name Role Phone Robert Radford MD Unavailable Unavailable Bernice Arzate MD Primary Care Provider Reason for Visit Reason Comments Forms COVER MY MEDS Encounter Details Date Type Department Care Team Description 10/18/2019 Telephone [facility] Internal Bernice Arzate Forms (COVER MY Medicine- TAVON Chambers MD MEDS) [facility] [address] [place] [phone] Allergies Active Allergy Reactions Severity Noted Date [...] mellitus without complications Overview: ICD10 Diagnosis Term Board Mixer Tender Utility documented as of this encounter (statuses [...] 10/26/2019 Office Visit Otolaryngology Tian Sarmiento MD [address] [place] [address]. [place] [address] 01/21/2020 Office Visit Internal Medicine Bernice Arzate MD [address] [place] [address] [phone] Health Maintenance Due Date Last Done Comments [...] of this encounter Implants Implanted Type Area Primer Assembler Device Shelf Model / Identifier Expiration Serial / Lot Date Dbm Sonny Maxxeus .5cc Cts #2014-40 - Sn/A BONE Right: Community Tissue 03/07/2018 / Implanted: Qty: 1 on 08/14/2016 by Biju Middleton MD at [facility] AT [facility] N/A / [id number] Cement CEMENT Right: ModaMi 08/07/2018 6195-1-001 / Implanted: Qty: 1 on 04/14/2017 by Michael Hernandez MD at [facility] Knee [id number] / [id number] Cr Tibial Bearing KNEE Right: Biomet 02/18/2022 138298 / Implanted: Qty: 1 on 04/14/2017 by Michael Hernandez MD at [facility] Knee [id number] / [id number] Cr Femoral Right KNEE Right: Biomet 03/17/2027 373152 / Implanted: Qty: 1 on 04/14/2017 by Michael Hernandez MD at [facility] Knee [id number] / [id number] Primary Tibial Modular Tray KNEE Right: Biomet 01/16/2021 924880 / Implanted: Qty: 1 on 04/14/2017 by Michael Hernandez MD at [facility] Knee [id number] / [id number] Standard Patella PATELLA Right: Biomet 01/22/2022 [id number] / Implanted: Qty: 1 on 04/14/2017 by Michael Hernandez MD at [facility] Knee [id number] / [id number] Screw Bone Ti 2.7mm AcGlucoSentientd #Co-F2710 - S2 Aug 23 SCREW Right: [employer] CO-F2710 / Implanted: Qty: 2 on 08/14/2016 by Biju Middleton MD at [facility] AT [facility] Hand 2 16 AUG 23 NA Description:right mcp joint Screw Bone Ti 2.7mm Acumed #Co-F2712 - S2 16 Aug 23 SCREW Right: Hand [employer] CO-F2712 / Implanted: Qty: 1 on 08/14/2016 by Biju Middleton MD at [facility] AT [facility] 2 16 AUG 23 / NA Description:right mcp joint Screw Bone Ti 2.7mm Acumed #Co-F2708 - Sor Sterlization SCREW Right: Hand [employer] CO-F2708 / Implanted: Qty: 1 on 08/14/2016 by Biju Middleton MD at [facility] AT [facility] OR STERLIZATION / OR STERILIZATION Description:Load #[id number] Screw Bone Ti 2.7mm Acumed #Co-F2706 - [id number] SCREW Right: Hand [employer] CO-F2706 / Implanted: Qty: 1 on 08/14/2016 by Biju Middleton MD at [facility] N/A / N/A Bone Screw SCREW Right: Knee Biomet 10/27/2026 133717 / Implanted: Qty: 1 on 04/14/2017 by Michael Hernandez MD at [facility] [id number] / [id number] Bone Screw SCREW Right: Knee Biomet 08/15/2026 895840 / Implanted: Qty: 1 on 04/14/2017 by Michael Hernandez MD at [facility] [id number] / [id number] Bone Screw SCREW Right: Knee Biomet 10/27/2026 855169 / Implanted: Qty: 1 on 04/14/2017 by Michael Hernandez MD at [facility] [id number] / [id number] Bone Screw SCREW Right: Knee Biomet 08/21/2025 608739 / Implanted: Qty: 1 on 04/14/2017 by Michael Hernandez MD at [facility] [id number] / [id number] Modular Finned Stem Stem Right: Knee Biomet 02/12/2027 904150 / Implanted: Qty: 1 on 04/14/2017 by Michael Hernandez MD at [facility] [id number] / [id number] Cammulated Interference Screw Right: Hand Biomet 11/01/2020 835929 / Implanted: Qty: 2 on 05/06/2016 by Biju Middleton MD at [facility] AT [facility] N/A / [id number] Mcp Fusion Plate, Right Right: Hand [employer] PL-MCPR / Implanted: Qty: 1 on 08/14/2016 by Biju Middleton MD at [facility] AT [facility] 2 AUG 23 documented as of this encounter Results Not on filedocumented in this encounter Insurance Payer Benefit Plan / Subscriber ID Effective Phone Address Type Group Dates ANTHONY CRUZ xxxxxxxxx 2015-Srinivasan SANTILLAN Medicaid [place] [id number] MANAGED MEDICAID [place] documented as of this encounter
--- OUTSIDE RECORDS SUMMARY | 2019-11-19 06:04 | XMS REPORT | Summary of Care ---
:1970 Author Organization [facility] Address [address] [place] [id number] Care Team Providers Name Role Phone Robert Radford MD Unavailable Unavailable Bernice Arzate MD Primary Care Provider Reason for Visit Reason Comments Refill Request Encounter Details Date Type Department Care Team Description 11/14/2019 Refill [facility] Internal Bernice Arzate, Refill Request Medicine- Multispecialty [address] [id number] [place] [address] Allergies Active Allergy Reactions Severity [...] as of this encounter (statuses as of 11/16/2019) Medications Medication Sig Dispensed Refills Start End [...] mg TAKE 1 TABLET 30 tablet 0 11/16/19 Discontinued tabletIndications: BY MOUTH EVERY 0 20 Menopausal problem DAY documented as of this encounter (statuses as of 11/16/2019) Active Problems Problem Noted Date Intractable nausea [...] mellitus without complications Overview: ICD10 Diagnosis 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 documented as of this encounter (statuses as of 11/16/2019) Resolved Problems Problem Noted Date Resolved Date [...] as of this encounter (statuses as of 11/16/2019) Immunizations Name Administration Dates Next Due Influenza [...] Treatment Date Type Specialty Care Team Description 12/22/2019 Office Visit Internal Medicine Bernice Arzate MD [address] [place] [phone] [phone] 01/21/2020 Office Visit Internal Medicine Bernice Arzate MD [address] [place] [phone] [phone] Health Maintenance Due Date Last Done Comments [...] this encounter Implants Implanted Type Area Manager Quality Compliance Device Shelf Model / Identifier Expiration Serial / Lot Date Dbm Sonny Maxxeus .5cc Cts #2014-40 - Sn/A BONE Right: Community Tissue 03/07/2018 / Implanted: Qty: 1 on 08/14/2016 by Biju Middleton MD at [facility] N/A / [id number] Cement CEMENT Right: [place] 08/07/2018 [id number] / Implanted: Qty: 1 on 04/14/2017 by Michael Hernandez MD at [facility] Knee [id number] / [id number] Cr Tibial Bearing KNEE Right: [employer] 02/18/2022 [id number] / Implanted: Qty: 1 on 04/14/2017 by Michael Hernandez MD at [facility] Knee [id number] / [id number] Cr Femoral Right KNEE Right: [employer] 03/17/2027 [id number] / Implanted: Qty: 1 on 04/14/2017 by Michael Hernandez MD at [facility] Knee [id number] / [id number] Primary Tibial Modular Tray KNEE Right: [employer] 01/16/2021 [id number] / Implanted: Qty: 1 on 04/14/2017 by Michael Hernandez MD at [facility] Knee [id number] / [id number] Standard Patella PATELLA Right: [employer] 01/22/2022 [id number] / Implanted: Qty: 1 on 04/14/2017 by Michael Hernandez MD at [facility] Knee [id number] / [id number] Screw Bone Ti 2.7mm Acumed #Co-F2710 - S2 16 Aug 23 SCREW Right: [employer] [id number] / Implanted: Qty: 2 on 08/14/2016 by Biju Middleton MD at [facility] 2 AUG 23 / NA Description:right mcp joint Screw Bone Ti 2.7mm Acumed #Co-F2712 - S2 Aug 23 SCREW Right: Hand [employer] [id number] / Implanted: Qty: 1 on 08/14/2016 by Biju Middleton MD at [facility] 2 16 AUG 23 / NA Description:right mcp joint Screw Bone Ti 2.7mm Acumed #Co-F2708 - Sor Sterlization SCREW Right: Hand [employer] [id number] / Implanted: Qty: 1 on 08/14/2016 by Biju Middleton MD at [facility] OR STERLIZATION / OR STERILIZATION Description:Load # Screw Bone Ti 2.7mm Acumed #Co-F2706 - [id number] SCREW Right: Hand [employer] [id number] / Implanted: Qty: 1 on 08/14/2016 by Biju Middleton MD at [facility] N/A / N/A Bone Screw SCREW Right: Knee [employer] 10/27/2026 [id number] / Implanted: Qty: 1 on 04/14/2017 by Michael Hernandez MD at [facility] [id number] / [id number] Bone Screw SCREW Right: Knee [employer] 08/15/2026 [id number] / Implanted: Qty: 1 on 04/14/2017 by Michael Hernandez MD at [facility] [id number] / [id number] Bone Screw SCREW Right: Knee [employer] 10/27/2026 [id number] / Implanted: Qty: 1 on 04/14/2017 by Michael Hernandez MD at [facility] [id number] / [id number] Bone Screw SCREW Right: Knee [employer] 08/21/2025 [id number] / Implanted: Qty: 1 on 04/14/2017 by Michael Hernandez MD at [facility] [id number] / [id number] Modular Finned Stem Stem Right: Knee [employer] 02/12/2027 [id number] / Implanted: Qty: 1 on 04/14/2017 by Michael Hernandez MD at [facility] [id number] / [id number] Cammulated Interference Screw Right: Hand [employer] 11/01/2020 [id number] / Implanted: Qty: 2 on 05/06/2016 by Biju Middleton MD at [facility] N/A / [id number] Mcp Fusion Plate, Right Right: Hand [employer] [id number] / Implanted: Qty: 1 on 08/14/2016 by Biju Middleton MD at [facility] 2 16 16/ AUG 23 documented as of this encounter Results Not on filedocumented in this encounter Visit Diagnoses Diagnosis Menopausal problem Unspecified menopausal and postmenopausal disorder documented in this encounter Insurance Payer Benefit Plan / Subscriber ID Effective Phone Address Type Group Dates ANTHONY CRUZ xxxxxxxxx 2015-Srin[address] [place] [id number] [place], [place] documented as of this encounter
[2019-11-19 06:20] LABS: Urine Blood NEGATIVE (NEG); Urine Glucose NEGATIVE (NEG); Urine Protein NEGATIVE (NEG); Urine Specific Gravity 1.025 (1.005-1.030)
--- NOTE | 2019-11-19 06:34 | EDPHYS ---
Physician Documentation [facility] Name: Kat Aguilar Age: 49 yrs Sex: Female : 1970 Arrival Date: 11/19/2019 Time: 05:43 Bed 5 Private MD: Chandana Cota HPI: 11/18 06:29 This 49 yrs old Female presents to ER via Ambulatory with complaints of Back genny Pain, Chills. 06:29 The patient presents with pain that is acute, with no known mechanism of injury. The genny symptoms are located in the left mid back and right mid back. Onset: The symptoms/episode began/occurred 3 day(s) ago. The pain does not radiate. Associated signs and symptoms: The patient has no apparent associated signs or symptoms. Modifying factors: The patient symptoms are alleviated by nothing, the patient symptoms are aggravated by nothing. Severity of symptoms: At their worst the symptoms were mild, in the emergency department the symptoms are unchanged. The patient has experienced similar episodes in the past, a few times. Historical: - Allergies: 06:03 Sulfa (Sulfonamide Antibiotics); lp1 06:03 IV contrast; lp1 06:03 Toradol; lp1 06:03 NSAIDS; lp1 06:03 Latex, Natural Rubber; lp1 06:03 Demerol; lp1 - Home Meds: 06:03 lisinopril 20 mg Oral tab 1 tab once daily [Active]; levothyroxine 25 mcg tab 1 tab lp1 once daily [Active]; Linzess 290 mcg oral cap 1 cap once daily [Active]; cetirizine 10 mg oral tab 1 tab once daily [Active]; Protonix 20 mg Oral TbEC 1 tab once daily [Active]; estradiol 1 mg Oral tab 1 tab once daily [Active]; - PMHx: 06:03 Back pain; Bipolar disorder; chronic constipation; Diabetes - NIDDM; High Cholesterol; lp1 Hypertension; Hypothyroidism; Migraines; PERIPHERAL NEUROPATHY; Sleep Apnea; - PSHx: 06:03 Cholecystectomy; R knee; Gastric Bypass; Hysterectomy; ; lp1 - Immunization history:: Adult Immunizations up to date. - Social history:: Smoking status: Patient/guardian denies using tobacco, the patient reports quitting approximately 7 years ago. - Family history:: not pertinent. ROS: 06:29 Constitutional: Negative for fever, chills, and weight loss, Eyes: Negative for injury, genny pain, redness, and discharge, ENT: Negative for injury, pain, and discharge, Neck: Negative for injury, pain, and swelling, Cardiovascular: Negative for chest pain, palpitations, and edema, Respiratory: Negative for shortness of breath, cough, wheezing, and pleuritic chest pain, Abdomen/GI: Negative for abdominal pain, nausea, vomiting, diarrhea, and constipation, MS/Extremity: Negative for injury and deformity, Skin: Negative for injury, rash, and discoloration, Neuro: Negative for headache, weakness, numbness, tingling, and seizure, Psych: Negative for depression, anxiety, suicide ideation, homicidal ideation, and hallucinations, Allergy/Immunology: Negative for hives, rash, and allergies, Endocrine: Negative for neck swelling, polydipsia, polyuria, polyphagia, and marked weight changes, Hematologic/Lymphatic: Negative for swollen nodes, abnormal bleeding, and unusual bruising. 06:29 Back: Positive for pain at rest, flank pain, bilaterally. Exam: 06:29 Constitutional: This is a well developed, well nourished patient who is awake, alert, genny and in no acute distress. Head/Face: Normocephalic, atraumatic. Eyes: Pupils equal round and reactive to light, extra-ocular motions intact. Lids and lashes normal. Conjunctiva and sclera are non-icteric and not injected. Cornea within normal limits. Periorbital areas with no swelling, redness, or edema. ENT: Nares patent. No nasal discharge, no septal abnormalities noted. Tympanic membranes are normal and external auditory canals are clear. Oropharynx with no redness, swelling, or masses, exudates, or evidence of obstruction, uvula midline. Mucous membranes moist. Neck: Trachea midline, no thyromegaly or masses palpated, and no cervical lymphadenopathy. Supple, full range of motion without nuchal rigidity, or vertebral point tenderness. No Meningismus. Chest/axilla: Normal chest wall appearance and motion. Nontender with no deformity. No lesions are appreciated. Cardiovascular: Regular rate and rhythm with a normal S1 and S2. No gallops, murmurs, or rubs. Normal PMI, no JVD. No pulse deficits. Respiratory: Lungs have equal breath sounds bilaterally, clear to auscultation and percussion. No rales, rhonchi or wheezes noted. No increased work of breathing, no retractions or nasal flaring. Back: No spinal tenderness. No costovertebral tenderness. Full range of motion. Skin: Warm, dry with normal turgor. Normal color with no rashes, no lesions, and no evidence of cellulitis. MS/ Extremity: Pulses equal, no cyanosis. Neurovascular intact. Full, normal range of motion. Neuro: Awake and alert, GCS 15, oriented to person, place, time, and situation. Cranial nerves II-XII grossly intact. Motor strength 5/5 in all extremities. Sensory grossly intact. Cerebellar exam normal. Normal gait. Psych: Awake, alert, with orientation to person, place and time. Behavior, mood, and affect are within normal limits. 06:29 Abdomen/GI: Inspection: abdomen appears normal, Bowel sounds: normal, Palpation: nontender, Liver: no appreciated palpable abnormalities, Hernia: not appreciated. Vital Signs: 05:56 BP 145 / 80; Pulse 58; Resp 18; Temp 98(O); Pulse Ox 100% on R/A; Weight 97.52 kg (R); lp1 Height 5 ft. 2 in. (157.48 cm); Pain 7/10; 06:15 BP 128 / 76; Pulse 51; Resp 18; Pulse Ox 99% ; ah 05:56 Body Mass Index 39.32 (97.52 kg, 157.48 cm) lp1 MDM: 05:56 Patient medically screened. [facility] 06:32 Data reviewed: vital signs, nurses notes, lab test result(s), urinalysis, bacteruria. [facility] 11/18 06:16 Order name: Urine Dipstick--Ancillary (enter results); Complete Time: 06:28 11/18 06:32 Order name: Urine Culture [facility] Administered Medications: 06:36 Drug: Pyridium 200 mg Route: PO; 06:49 Follow up: Response: No adverse reaction 06:37 Drug: LevOfloxacin 500 mg Route: PO; 06:49 Follow up: Response: No adverse reaction Disposition: 11/19/19 06:33 Discharged to Home. Impression: Urinary tract infection, site not specified. - Condition is Stable. - Discharge Instructions: Dysuria, Urinary Tract Infection, Adult, Urinary Tract Infection, Adult, Cnts-oc-Sogb, Antibiotic Medicine, Adult, Antibiotic Medicine, Iled-rc-Lcdc. - Prescriptions for Levaquin 500 mg Oral Tablet - take 1 tablet by ORAL route once daily for 7 days; 7 tablet. Pyridium 200 mg Oral Tablet - take 1 tablet by ORAL route every 8 hours for 3 days; 9 tablet. - Medication Reconciliation Form, Thank You Letter, Antibiotic Education, Prescription Opioid Use, Family Work Release form. - Follow up: Private Physician; When: 2 - 3 days; Reason: Recheck today's complaints, Continuance of care, Re-evaluation by your physician. - Problem is new. - Symptoms have improved. Signatures: Dispatcher [employer] EDMS Chandana Clark MD MD cha Pena, Laura RN RN 1 Selena Pitts RN RN Corrections: (The following items were deleted from the chart) 06:50 06:33 11/19/2019 06:33 Discharged to Home. Impression: Urinary tract infection, site ah not specified. Condition is Stable. Forms are Medication Reconciliation Form, Thank You Letter, Antibiotic Education, Prescription Opioid Use. Follow up: Private Physician; When: 2 - 3 days; Reason: Recheck today's complaints, Continuance of care, Re-evaluation by your physician. Problem is new. Symptoms have improved. genny
--- NOTE | 2019-11-19 06:34 | ER ---
Nurse's Notes [facility] Name: Kat Aguilar Age: 49 yrs Sex: Female : 1970 Arrival Date: 11/19/2019 Time: 05:43 Bed 5 Private MD: Diagnosis: Urinary tract infection, site not specified Presentation: 11/18 05:56 Chief complaint: Patient states: "I think I have a UTI"; patient states symptoms of low lp1 back pain, chills, odor to urine x 2 days; States bladder spasms. Coronavirus screen: The patient has NOT traveled to a country currently being monitored by the [facility] within the last 14 days. The patient has NOT had contact with any known and/or suspected case of coronavirus. Ebola Screen: No symptoms or risks identified at this time. Initial Sepsis Screen: Does the patient meet any 2 criteria? No. Patient's initial sepsis screen is negative. Does the patient have a suspected source of infection? No. Patient's initial sepsis screen is negative. Risk Assessment: Do you want to hurt yourself or someone else? Patient reports no desire to harm self or others. Onset of symptoms was November 17, 2019. 05:56 Method Of Arrival: Ambulatory lp1 05:56 Acuity: JADYN 4 lp1 05:59 Risk Assessment: Do you want to hurt yourself or someone else?. Historical: - Allergies: 06:03 Sulfa (Sulfonamide Antibiotics); lp1 06:03 IV contrast; lp1 06:03 Toradol; lp1 06:03 NSAIDS; lp1 06:03 Latex, Natural Rubber; lp1 06:03 Demerol; lp1 - Home Meds: 06:03 lisinopril 20 mg Oral tab 1 tab once daily [Active]; levothyroxine 25 mcg tab 1 tab lp1 once daily [Active]; Linzess 290 mcg oral cap 1 cap once daily [Active]; cetirizine 10 mg oral tab 1 tab once daily [Active]; Protonix 20 mg Oral TbEC 1 tab once daily [Active]; estradiol 1 mg Oral tab 1 tab once daily [Active]; - PMHx: 06:03 Back pain; Bipolar disorder; chronic constipation; Diabetes - NIDDM; High Cholesterol; lp1 Hypertension; Hypothyroidism; Migraines; PERIPHERAL NEUROPATHY; Sleep Apnea; - PSHx: 06:03 Cholecystectomy; R knee; Gastric Bypass; Hysterectomy; ; lp1 - Immunization history:: Adult Immunizations up to date. - Social history:: Smoking status: Patient/guardian denies using tobacco, the patient reports quitting approximately 7 years ago. - Family history:: not pertinent. Screenin:59 Abuse screen: Denies threats or abuse. Nutritional screening: No deficits noted. Tuberculosis screening: No symptoms or risk factors identified. Fall Risk None identified. Assessment: 05:56 General: Appears in no apparent distress. Behavior is calm, cooperative. Pain: Complains of pain in lumbar area, left low back and right low back, also in suprapubic area Pain began 2-3 days ago. Neuro: Level of Consciousness is awake, alert, Oriented to person, place, time, situation. Cardiovascular: Heart tones S1 S2 present Capillary refill < 3 seconds Patient's skin is warm and dry. Respiratory: Airway is patent Respiratory effort is even, unlabored, Respiratory pattern is regular, symmetrical, Breath sounds are clear bilaterally. GI: No signs and/or symptoms were reported involving the gastrointestinal system. : Reports foul smelling urine and bladder spasms. EENT: No signs and/or symptoms were reported regarding the EENT system. Derm: No signs and/or symptoms reported regarding the dermatologic system. Vital Signs: 05:56 BP 145 / 80; Pulse 58; Resp 18; Temp 98(O); Pulse Ox 100% on R/A; Weight 97.52 kg (R); lp1 Height 5 ft. 2 in. (157.48 cm); Pain 7/10; 06:15 BP 128 / 76; Pulse 51; Resp 18; Pulse Ox 99% ; 05:56 Body Mass Index 39.32 (97.52 kg, 157.48 cm) lp1 ED Course: 05:43 Patient arrived in ED. ds1 05:56 Selena Pitts, RN is Primary Nurse. 05:56 Chandana Clark MD is Attending Physician. [facility] 05:59 Patient has correct armband on for positive identification. Bed in low position. Call light in reach. Side rails up X 1. 06:00 Triage completed. lp1 06:48 No provider procedures requiring assistance completed. Patient did not have IV access during this emergency room visit. 06:49 Arm band placed on right wrist. Administered Medications: 06:36 Drug: Pyridium 200 mg Route: PO; 06:49 Follow up: Response: No adverse reaction 06:37 Drug: LevOfloxacin 500 mg Route: PO; 06:49 Follow up: Response: No adverse reaction Outcome: 06:33 Discharge ordered by . [facility] 06:48 Discharged to home ambulatory. 06:48 Condition: good 06:48 Discharge instructions given to patient, Instructed on discharge instructions, medication usage, Demonstrated understanding of instructions, follow-up care, medications, Prescriptions given X 2. 06:50 Patient left the ED. Addendum: 11/22/2019 07:35 Addendum: Culture Results: Positive urine culture. No further action required. Bacteria i w sensitive to prescribed antibiotic. Signatures: Chandana Clark MD MD cha Sanford, Demi ds1 Mame Mckenzie RN RN Lynda Juan RN RN lp1 Selena Pitts RN RN Corrections: (The following items were deleted from the chart) 11/18 06:00 05:56 : Reports foul smelling urine [facility]
[2019-11-19] MEDS ORDERED: PHENAZOPYRIDINE 100MG TAB PO ONE (06:36)
[2019-11-19] MEDS ORDERED: levoFLOXacin 500 MG TAB ONE (06:36)
[2019-11-19 07:03] VITALS: TEMP 98
[2019-11-19 07:05] VITALS: BP 128/76; O2SAT 99
== END 2019-11-19 06:50 | disposition home or self-care (01) ==
LOC: ER 05:40
DX: N39.0 Urinary tract infection, site not specified (principal); I10 Essential (primary) hypertension; E11.9 Type 2 diabetes mellitus without complications; E78.00 Pure hypercholesterolemia, unspecified; E03.9 Hypothyroidism, unspecified; Z88.2 Allergy status to sulfonamides; Z88.5 Allergy status to narcotic agent; Z88.6 Allergy status to analgesic agent; Z91.040 Latex allergy status; Z91.041 Radiographic dye allergy status
CPT/HCPCS: 81003; 87077; 87086; 87088; 87186; 99283

== ENCOUNTER 2020-11-12 04:52 | Emergency (ER) | payer MEDICAID, OTHER ==
--- OUTSIDE RECORDS SUMMARY | 2020-11-12 04:57 | XMS REPORT | Continuity of Care Document ---
:1970 Author Organization [facility] t Address [address] [place] [address] Care Team Providers Name Role Phone UNKNOWN Primary Care Physician Unavailable JESSI BUCHANAN Attending Clinician Unavailable JOE CARVALHO M.D. Attending Clinician Unavailable AUNG Attending Clinician Unavailable JOE CARVALHO M.D. Admitting Clinician Unavailable AUNG Admitting Clinician Unavailable Payers Payer Name Policy Type Policy Number Effective Date Expiration Date S ource Problems This patient has no known problems. Allergies, Adverse Reactions, Alerts Allergy Allergy Status Severity Reaction(s) Onset Inactive Treating Comm ents Source Name Type Date Date Clinician Iodine Drug Active Other (See Fainting[facility]12 [facility] I[facility]:00: "okay w/ Medical Containi 00 benadryl" Cente r ng Products Nitrofur Drug Active Rash [facility] antoin Allergy 02-12 [facility] - Monohyd/ 00:00: Medical M-Cryst 00 Center Nsaids Drug Active Other (See bariatric [facility] (Non-Aris Allergy Comments) 6-07 pt [facility] - roidal 00:00: Medical Anti-Inf 00 Center lammator y Drug) Sulfa Drug Active Rash [facility] (Sulfona Allergy 6-07 [facility] - mide 00:00: Medical Antibiot 00 Center ics) Ketorola Drug Active Rash [facility] Allergy 6-07 [facility] - [facility]: Medical Center IV DA Active [facility] CONTRAST 2-17 Clear 00:00: [place] 00 [facility] NSIADS DA Active U [facility] 2-17 Clear 00:00: Duncan 00 [facility] iodine DA Active [facility] 2-13 Clear 00:00: Duncan 00 [facility] Sulfa DA Active [place] [facility] (Sulfona 3-11 Clear mide 00:00: [place] Antibiot 00 [facility] ketorola DA Active [place] [facility] c 3-11 Clear 00:00: [place] 00 [facility] latex DA Active [facility] 3-11 Clear 00:00: [place] 00 [facility] Iodine Propensi Active [place] ty to 8-18 [facility] adverse 00:00: st reaction 00 s to drug [facility] st reaction 00 s to drug Sulfa Propensi Active [place] (Sulfona ty to 8-18 [facility] mide adverse 00:00: st Antibiot reaction 00 ics) s to drug Social History Social Habit Start Date Stop Date Quantity Comments Source History [facility] - Alcohol Std Drinks [facility] History [facility] - Alcohol Binge Medical Delfina ter Tobacco use and 2019-07-13 2019-07-13 Never used [facility] ethodist exposure 00:00:00 00:00:00 Alcohol intake 2019-07-13 2019-07-13 Current drinker [place] [facility] 00:00:00 00:00:00 of alcohol (finding) Alcohol Comment 2019-07-04 2019-07-04 socially [facility] ethodist 00:00:00 00:00:00 History SDOH 2019-02-12 2019-02-[address] [facility] - Alcohol Frequency 00:00:00 00:00:00 Medical [place] Sex Ass[birth year] At [birth year] Christian Velázquez ethodist 00:00:00 00:00:00 Smoking Status Start Date Stop Date Source Former smoker 2019-07-13 00:00:00 2019-07-13 00:00:00 [place] [facility] Never smoker [facility] Medications Ordered Filled Start Stop Current Ordering Indication Dosage Frequency Signature Comments Components Source Medication Medication Date Date Medication? Clinician (SIG) Name Name levothyroxi 2018-09 Yes 25ug Take 25 [place] ne 0-27 mcg by [facility] (SYNTHROID) 22:40: mouth. st 25 mcg 33 tablet LINZESS 290 2018-09 Yes 290ug QD Take 290 [place] mcg capsule 0-16 mcg by Method i 00:00: mouth st 00 daily. pantoprazol 2018-09 Yes 40mg Take 40 mg [place] e 0-16 by mouth. [facility] (PROTONIX) 00:00: st 40 MG EC 00 tablet estradiol Yes 1mg QD Take 1 mg [place] ston (ESTRACE) 1 9-30 by mouth Meth jose g MG tablet 00:00: daily. st 00 cetirizine Yes 10mg QD Take 10 mg [place] (ZyrTEC) 10 9-25 by mouth Meth jose g MG tablet 00:00: daily. st 00 hydrOXYzine Yes TAKE 4 [place] (ATARAX) 50 8-18 TABLETS Metho di MG tablet 00:00: ORALLY st 00 DAILY estradiol Yes 1mg QD Take [address] (ESTRACE) 1 6-07 by mouth Luke s - MG tablet 09:56: daily. Medica l 34 [place] levothyroxi Yes 25ug Take [address] ne 6-07 mcg by [facility] - (SYNTHROID, 09:56: mouth Medic al LEVOTHROID) 34 Every Center 25 MCG morning on tablet an empty stomach. cetirizine Yes 10mg QD Take [address] (ZYRTEC) 10 6-07 by mouth Luke s - MG tablet 09:56: daily. Medica l 34 [place] lisinopril Yes 10mg QD Take [address] (PRINIVIL,Z 6-07 by mouth Luke s - ESTRIL) 10 09:56: daily. Medic al MG tablet 34 Center linaclotide Yes 290ug QD Take [address] (LINZESS) 6-07 mcg by [facility] - 290 mcg Cap 09:56: mouth Medic al 34 daily. Center pantoprazol Yes 40mg Q.5D Take [address] [facility] e 6-07 by mouth 2 [facility] - (PROTONIX) 09:56: (two) Medica l 40 MG 34 times Center tablet daily. eszopiclone Yes 3mg QD Take [address] 3 mg tablet 6-07 by mouth Luke s - 09:56: nightly Medical 34 Take Center immediatel y before bedtime . hydrOXYzine Yes 100mg QD Take [address] (ATARAX) 50 6-07 mg by [facility] - MG tablet 09:56: mouth Medical 34 nightly. [place] albuterol Yes 1{puff} Inhale [address] HFA 6-07 puff by [facility] - (VENTOLIN 09:56: mouth via Med ical HFA) 90 34 inhaler Center mcg/actuati every 6 on inhaler (six) hours as needed for Wheezing. lisinopril Yes 10mg 10 mg. [place] (PRINIVIL) 2-10 [facility] 20 mg 00:00: st tablet 00 Procedures This patient has no known procedures. Plan of Care Planned Activity Planned Date Details Comments Source Future Scheduled 2020-05-09 INFLUENZA VACCINE (#1) [facility] - Test 00:00:00 [code = INFLUENZA Medical Ce nter VACCINE (#1)] Future Scheduled 2020-04-08 INFLUENZA VACCINE [facility]ila [facility] Test 00:00:00 [code = INFLUENZA VACCINE] Future Scheduled 2019 BREAST CANCER [facility] thodist Test 00:00:00 SCREENING [code = BREAST CANCER SCREENING] Future Scheduled 2019 COLONOSCOPY SCREENING [place] [facility] Test 00:00:00 [code = COLONOSCOPY SCREENING] Future Scheduled 2019 SHINGLES VACCINES (#1) [facility] [facility] Test 00:00:00 [code = SHINGLES VACCINES (#1)] Future Scheduled [address] [facility] - Test 00:00:00 (procedure) [code = Medical Center 30856201] Future Scheduled [address] [facility] - Test 00:00:00 [facility] cervix (procedure) [code = 122823298] Future Scheduled 1990 Screening for [place] [facility] thodist Test 00:00:00 malignant neoplasm of cervix (procedure) [code = 122560654] Future Scheduled 1987 Hepatitis C screening [place] [facility] Test 00:00:00 (procedure) [code = 164617716] Future Scheduled 1985 COVID-19 VACCINE (1 of [place] [facility] Test 00:00:00 2) [code = COVID-19 VACCINE (1 of 2)] Future Scheduled 1979 DIABETES: RETINAL EYE [place] [facility] Test 00:00:00 EXAM [code = DIABETES: RETINAL EYE EXAM] Future Scheduled 1979 DIABETIC FOOT EXAM [place] [facility] Test 00:00:00 [code = DIABETIC FOOT EXAM] Future Scheduled 1979 URINE MICROALBUMIN [place] [facility] Test 00:00:00 [code = URINE MICROALBUMIN] Future Scheduled [address] [facility] [facility] - Test 00:00:00 [facility] breast (procedure) [code = 094581401] Future Scheduled [address] [facility] - Test 00:00:00 [facility] colon (procedure) [code = 941974770] Encounters Start End Encounter Admission Attending Care Care Encounter Source Date/Time Date/Time Type Type Clinicians Facility Department ID 2017-05-22 Inpatient [facility] MED [id number] [facility] 16:23:00 2019-01-11 2019-01-11 Emergency E [facility] [id number] [facility] 23:33:00 23:33:00 2017-12-23 2017-12-23 Emergency E AUNG, [facility] MED [id number] [facility] 15:29:00 15:29:00 ISIS 2017-07-30 2017-07-30 Outpatient C [facility] MED [id number] [facility] 12:09:00 12:09:00 2017-07-09 2017-07-09 Outpatient C [facility] MED [id number] [facility] 00:01:00 00:01:00 2017-06-17 2017-06-17 Outpatient C [facility] MED [id number] [facility] 18:46:00 18:46:00 2017-06-08 2017-06-08 Outpatient C [facility] MED [id number] [facility] 00:01:00 00:01:00 2017-06-06 2017-06-06 Outpatient C [facility] MED [id number] [facility] 21:11:00 21:11:00 Results Test Description Test Time Test Comments Results Result Comments Source Basic Metabolic Panel 2019-08-12 06:39:55 Test Item Value Reference Range Interpretation Comme nts Sodium Level (test code = Sodium Level) 143.0 mmol/L 135.0-145.0 Potassium Level (test code = Potassium Level) 4.2 mmol/L 3.5-5.1 Chloride Level (test code = Chloride Level) 104 mmol/L 98-105 CO2 (test code = CO2) 31 mmol/L 22-29 H Anion Gap (test code = Anion Gap) 8 mmol/L 7-16 BUN (test code = BUN) 8.60 mg/dL 6.00-20.00 Creatinine Level (test code = Creatinine Level) 0.50 mg/dL 0.50-0 .90 BUN/Creat Ratio (test code = BUN/Creat Ratio) 17 N Glucose Level (test code = Glucose Level) 101 mg/dL 70-115 Calcium Level (test code = Calcium Level) 8.9 mg/dL 8.3-10.5 Basic Metabolic [id number] 06:39:55 Test Item Value Reference Range Interpretation Comments Sodium Level (test 143.0 mmol/L 135.0-145.0 code = Sodium Level) Potassium Level 4.2 mmol/L 3.5-5.1 (test code = Potassium Level) Chloride Level (test 104 mmol/L 98-105 code = Chloride Level) CO2 (test code = 31 mmol/L 22-29 H CO2) Anion Gap (test code 8 mmol/L 7-16 = Anion Gap) BUN (test code = 8.60 mg/dL 6.00-20.00 BUN) Creatinine Level 0.50 mg/dL 0.50-0.90 (test code = Creatinine Level) BUN/Creat Ratio 17 N (test code = BUN/Creat Ratio) Glucose Level (test 101 mg/dL 70-115 code = Glucose Level) Calcium Level (test 8.9 mg/dL 8.3-10.5 code = Calcium Level) eGFR AA (test code = >60 N eGFR (e stimated eGFR AA) mL/min/1.73 m2 Glomerular Filtration Rate ) is an estimated va lue, calculated from the patient's serum creatinine usin g the MDRD equation. It is NOT the patient 's actual GFR. The eGFR provides a more clinically usef ul measure of kidn ey disease than se rum creatinine alone.This calculation prateek es sex and race in to account, if the information is provided. If th e race is not provided, and t he patient is -Pari n, multiply by 1.2 12. If sex is not provided, and t he patient is fema le, multiply by 0.7 42. Results for pat ients <18 years of ag e have not been validated by th e MDRD study and should be interpreted wit h caution. eGFR R esult Interpretation: eGFR > or = 60 is in the Normal RangeeGF R < 60 may mean kid fadumo diseaseeGFR < 1 5 may mean kidney failure Rang es recommended by the National Kidney Foundation, http://nkdep.ni h.gov Basic Metabolic [id number] 06:39:55 Test Item Value Reference Range Interpretation Comments Sodium Level (test 143.0 mmol/L 135.0-145.0 code = Sodium Level) Potassium Level 4.2 mmol/L 3.5-5.1 (test code = Potassium Level) Chloride Level (test 104 mmol/L 98-105 code = Chloride Level) CO2 (test code = 31 mmol/L 22-29 H CO2) Anion Gap (test code 8 mmol/L 7-16 = Anion Gap) BUN (test code = 8.60 mg/dL 6.00-20.00 BUN) Creatinine Level 0.50 mg/dL 0.50-0.90 (test code = Creatinine Level) BUN/Creat Ratio 17 N (test code = BUN/Creat Ratio) Glucose Level (test 101 mg/dL 70-115 code = Glucose Level) Calcium Level (test 8.9 mg/dL 8.3-10.5 code = Calcium Level) eGFR AA (test code = >60 N eGFR (e stimated eGFR AA) mL/min/1.73 m2 Glomerular Filtration Rate ) is an estimated va lue, calculated from the patient's serum creatinine usin g the MDRD equation. It is NOT the patient 's actual GFR. The eGFR provides a more clinically usef ul measure of kidn ey disease than se rum creatinine alone.This calculation prateek es sex and race in to account, if the information is provided. If th e race is not provided, and t he patient is -Pari n, multiply by 1.2 12. If sex is not provided, and t he patient is fema le, multiply by 0.7 42. Results for pat ients <18 years of ag e have not been validated by [facility] MDRD study and should be interpreted wit h caution. eGFR R esult Interpretation: eGFR > or = 60 is in the Normal RangeeGF R < 60 may mean kid fadumo diseaseeGFR < 1 5 may mean kidney failure Rang es recommended by the National Kidney Foundation, http://nkdep.ni h.gov eGFR Non-AA (test >60.00 N eGFR (simon mated code = eGFR Non-AA) mL/min/1.73 m2 Glomer ular Filtration Rate ) is an estimated va lue, calculated from the patient's serum creatinine usin g the MDRD equation. It is NOT the patient 's actual GFR. The eGFR provides a more clinically usef ul measure of kidn ey disease than se rum creatinine alone.This calculation prateek es sex and race in to account, if the information is provided. If th e race is not provided, and t he patient is -Pari n, multiply by 1.2 12. If sex is not provided, and t he patient is fema le, multiply by 0.7 42. Results for pat ients <18 years of ag e have not been validated by [facility] MDRD study and should be interpreted wit h caution. eGFR R esult Interpretation: eGFR > or = 60 is in the Normal RangeeGF R < 60 may mean kid fadumo diseaseeGFR < 1 5 may mean kidney failure Rang es recommended by the National Kidney Foundation, http://nkdep.ni h.gov Complete Blood Count with [id number] 06:13:20 Test Item Value Reference Range Interpretation Comments WBC (test code = WBC) 4.8 x10 4.4-10.5 RBC (test code = RBC) 4.15 x10 3.75-5.20 Hgb (test code = Hgb) 11.8 g/dL 12.2-14.8 L Hct (test code = Hct) 36.0 % 36.5-44.4 L MCV (test code = MCV) 86.70 fL 80.00-100.00 MCHC (test code = 32.80 g/dL 32.00-37.50 MCHC) RDW CV (test code = 13.9 % 11.5-14.5 RDW CV) MCH (test code = MCH) 28.4 pg 27.0-32.5 Platelets (test code = 246.0 x10 140.0-440.0 Platelets) MPV (test code = MPV) 10.9 fL N Slide Review (test Auto Auto Result cr eated by code = Slide Review) GL_SJM_ SLIDE_REV_AUTO nRBC (test code = 0 N nRBC) NRBC Abs (test code = 0.00 x10 N NRBC Abs) IPF (test code = IPF) 0 % N Automated [id number] 06:13:20 Test Item Value Reference Range Interpretation Comments Neutro Auto (test code = Neutro 52.5 % 36.0-70.0 Auto) Lymph Auto (test code = Lymph Auto) 37.2 % 12.0-44.0 Guadalupe Auto (test code = Guadalupe Auto) 7.6 % 0.0-11.0 Eos, Auto (test code = Eos, Auto) 2.1 % 0.0-7.0 Basophil Auto (test code = Basophil 0.4 % 0.0-2.0 Auto) Neutro Absolute (test code = Neutro 2.5 x10 1.6-7.4 Absolute) Lymph Absolute (test code = Lymph 1.80 x10 .50-4.60 Absolute) Gu[place]upe Absolute (test code = Guadalupe .37 x10 .00-1.20 Absolute) Eos Absolute (test code = Eos 0.10 x10 0.00-0.74 Absolute) Baso Absolute (test code = Baso 0.02 x10 0.00-0.21 Absolute) IG [id number] 06:13:20 Test Item Value Reference Range Interpretation Comments IG (test code = IG) 0.2 % 0.0-5.0 IG Abs (test code = IG Abs) [address] Abdomen and Pelvis w/o [id number] 19:36:37Patient: JAI HARDEN Date/Time08/11/2019 18:35 CSTReason for Examabd pain s/p gastric bypass;Other (please specify)ReportCT SCAN OF THE ABDOMEN AND PELVIS WITHOUT CONTRASTDictation Location: [id number] HISTORY: Abdominal pain status post gastric bypassTECHNIQUE: [...] in size and cortical thickness, without masses, calculi, or hydronephrosis. The visualized ureters are unremarkable. [...] muscular and vascular structures are unremarkable.In the pelvis,the bladder is normal. There has been prior hysterectomy. No pelvic free fluid or masses. No adnexal mass.IMPRESSION:1. No acute or significant abnormalities.2. Status post gastric bypass, cholecystectomy, hysterectomy. Final Dictated by: MD Cristobal Maria VDictated DT/TM: 08/11/2019 7:33 pmSigned by: MD Cristobal Maria VSigned (Electronic Signature): 08/11/2019 7:36 pmXR Chest 1 View [id number] 18:54:38Patient: JAI HARDEN Date/Time08/11/2019 18:39 CSTReason for ExamChest painReportCHEST X-RAY 1 VIEWDictation Location: [id number] HISTORY:Chest painTechnique:A single frontal view of the [...] Maria VSigned (Electronic Signature): 08/11/2019 6:54 pmLipase [id number] 17:36:02 Test Item Value Reference Range Interpretation Comments Lipase Level (test code = Lipase 20 U/L 13-60 Level) Comprehensive Metabolic [id number] 17:36:01 Test Item Value Reference Range Interpretation Comments Sodium Level (test code = Sodium 141.0 mmol/L 135.0-145.0 Level) Potassium Level (test code = 4.8 mmol/L 3.5-5.1 Potassium Level) Chloride Level (test code = 101 mmol/L 98-105 Chloride Level) CO2 (test code = CO2) 30 mmol/L 22-29 H Anion Gap (test code = Anion 10 mmol/L 7-16 Gap) BUN (test code = BUN) 10.80 mg/dL 6.00-20.00 Creatinine Level (test code = 0.60 mg/dL 0.50-0.90 Creatinine Level) BUN/Creat Ratio (test code = 18 N BUN/Creat Ratio) Glucose Level (test code = 94 mg/dL 70-115 Glucose Level) Calcium Level (test code = 10.2 mg/dL 8.3-10.5 Calcium Level) Alk Phos (test code = Alk Phos) 94 U/L 35-104 Bilirubin Total (test code = 0.2 mg/dL 0.1-0.9 Bilirubin Total) Albumin Level (test code = 4.6 g/dL 3.5-5.2 Albumin Level) Protein Total (test code = 7.5 g/dL 6.4-8.3 Protein Total) ALT (test code = ALT) 25 U/L 1-33 AST (test code = AST) 22 U/L 1-32 Globulin (test code = Globulin) 2.9 g/dL 2.9-3.1 A/G Ratio (test code = A/G 1.6 ratio N Ratio) Comprehensive Metabolic [id number] 17:36:01 Test Item Value Reference Range Interpretation Comments Sodium Level (test 141.0 mmol/L 135.0-145.0 code = Sodium Level) Potassium Level 4.8 mmol/L 3.5-5.1 (test code = Potassium Level) Chloride Level (test 101 mmol/L 98-105 code = Chloride Level) CO2 (test code = 30 mmol/L 22-29 H CO2) Anion Gap (test code 10 mmol/L 7-16 = Anion Gap) BUN (test code = 10.80 mg/dL 6.00-20.00 BUN) Creatinine Level 0.60 mg/dL 0.50-0.90 (test code = Creatinine Level) BUN/Creat Ratio 18 N (test code = BUN/Creat Ratio) Glucose Level (test 94 mg/dL 70-115 code = Glucose Level) Calcium Level (test 10.2 mg/dL 8.3-10.5 code = Calcium Level) Alk Phos (test code 94 U/L 35-104 = Alk Phos) Bilirubin Total 0.2 mg/dL 0.1-0.9 (test code = Bilirubin Total) Albumin Level (test 4.6 g/dL 3.5-5.2 code = Albumin Level) Protein Total (test 7.5 g/dL 6.4-8.3 code = Protein Total) ALT (test code = 25 U/L 1-33 ALT) AST (test code = 22 U/L 1-32 AST) Globulin (test code 2.9 g/dL 2.9-3.1 = Globulin) A/G Ratio (test code 1.6 ratio N = A/G Ratio) eGFR AA (test code = >60 N eGFR (e stimated eGFR AA) mL/min/1.73 m2 Glomerular Filtration Rate ) is an estimated va lue, calculated from the patient's serum creatinine usin g the MDRD equation. It is NOT the patient 's actual GFR. The eGFR provides a more clinically usef ul measure of kidn ey disease than se rum creatinine alone.This calculation prateek es sex and race in to account, if the information is provided. If th e race is not provided, and t he patient is -Pari n, multiply by 1.2 12. If sex is not provided, and t he patient is fema le, multiply by 0.7 42. Results for pat ients <18 years of ag e have not been validated by th e MDRD study and should be interpreted wit h caution. eGFR R esult Interpretation: eGFR > or = 60 is in the Normal RangeeGF R < 60 may mean kid fadumo diseaseeGFR < 1 5 may mean kidney failure Rang es recommended by the National Kidney Foundation, http://nkdep.ni h.gov Comprehensive Metabolic [id number] 17:36:01 Test Item Value Reference Range Interpretation Comments Sodium Level (test 141.0 mmol/L 135.0-145.0 code = Sodium Level) Potassium Level 4.8 mmol/L 3.5-5.1 (test code = Potassium Level) Chloride Level (test 101 mmol/L 98-105 code = Chloride Level) CO2 (test code = 30 mmol/L 22-29 H CO2) Anion Gap (test code 10 mmol/L 7-16 = Anion Gap) BUN (test code = 10.80 mg/dL 6.00-20.00 BUN) Creatinine Level 0.60 mg/dL 0.50-0.90 (test code = Creatinine Level) BUN/Creat Ratio 18 N (test code = BUN/Creat Ratio) Glucose Level (test 94 mg/dL 70-115 code = Glucose Level) Calcium Level (test 10.2 mg/dL 8.3-10.5 code = Calcium Level) Alk Phos (test code 94 U/L 35-104 = Alk Phos) Bilirubin Total 0.2 mg/dL 0.1-0.9 (test code = Bilirubin Total) Albumin Level (test 4.6 g/dL 3.5-5.2 code = Albumin Level) Protein Total (test 7.5 g/dL 6.4-8.3 code = Protein Total) ALT (test code = 25 U/L 1-33 ALT) AST (test code = 22 U/L 1-32 AST) Globulin (test code 2.9 g/dL 2.9-3.1 = Globulin) A/G Ratio (test code 1.6 ratio N = A/G Ratio) eGFR AA (test code = >60 N eGFR (e stimated eGFR AA) mL/min/1.73 m2 Glomerular Filtration Rate ) is an estimated va lue, calculated from the patient's serum creatinine usin g the MDRD equation. It is NOT the patient 's actual GFR. The eGFR provides a more clinically usef ul measure of kidn ey disease than se rum creatinine alone.This calculation prateek es sex and race in to account, if the information is provided. If th e race is not provided, and t he patient is -Pari n, multiply by 1.2 12. If sex is not provided, and t he patient is fema le, multiply by 0.7 42. Results for pat ients <18 years of ag e have not been validated by [facility] MDRD study and should be interpreted wit h caution. eGFR R esult Interpretation: eGFR > or = 60 is in the Normal RangeeGF R < 60 may mean kid fadumo diseaseeGFR < 1 5 may mean kidney failure Rang es recommended by the National Kidney Foundation, http://nkdep.ni h.gov eGFR Non-AA (test >60.00 N eGFR (simon mated code = eGFR Non-AA) mL/min/1.73 m2 Glomer ular Filtration Rate ) is an estimated va lue, calculated from the patient's serum creatinine usin g the MDRD equation. It is NOT the patient 's actual GFR. The eGFR provides a more clinically usef ul measure of kidn ey disease than se rum creatinine alone.This calculation prateek es sex and race in to account, if the information is provided. If th e race is not provided, and t he patient is -Pari n, multiply by 1.2 12. If sex is not provided, and t he patient is fema le, multiply by 0.7 42. Results for pat ients <18 years of ag e have not been validated by [facility] MDRD study and should be interpreted wit h caution. eGFR R esult Interpretation: eGFR > or = 60 is in the Normal RangeeGF R < 60 may mean kid fadumo diseaseeGFR < 1 5 may mean kidney failure Rang es recommended by the National Kidney Foundation, http://nkdep.ni h.gov Complete Blood Count with [id number] 17:32:54 Test Item Value Reference Range Interpretation Comments WBC (test code = WBC) 7.1 x10 4.4-10.5 RBC (test code = RBC) 4.63 x10 3.75-5.20 Hgb (test code = Hgb) 13.5 g/dL 12.2-14.8 Hct (test code = Hct) 39.4 % 36.5-44.4 MCV (test code = MCV) 85.10 fL 80.00-100.00 MCHC (test code = 34.30 g/dL 32.00-37.50 MCHC) RDW CV (test code = 14.0 % 11.5-14.5 RDW CV) MCH (test code = MCH) 29.2 pg 27.0-32.5 Platelets (test code = 292.0 x10 140.0-440.0 Platelets) MPV (test code = MPV) 10.9 fL N Slide Review (test Auto Auto Result cr eated by code = Slide Review) GL_SJM_ SLIDE_REV_AUTO nRBC (test code = 0 N nRBC) NRBC Abs (test code = 0.00 x10 N NRBC Abs) IPF (test code = IPF) 0 % N Automated [id number] 17:32:54 Test Item Value Reference Range Interpretation Comments Neutro Auto (test code = Neutro 54.7 % 36.0-70.0 Auto) Lymph Auto (test code = Lymph Auto) 36.0 % 12.0-44.0 Guadalupe Auto (test code = Guadalupe Auto) 6.8 % 0.0-11.0 Eos, Auto (test code = Eos, Auto) 1.8 % 0.0-7.0 Basophil Auto (test code = Basophil 0.4 % 0.0-2.0 Auto) Neutro Absolute (test code = Neutro 3.9 x10 1.6-7.4 Absolute) Lymph Absolute (test code = Lymph 2.55 x10 .50-4.60 Absolute) [place]upe Absolute (test code = Gu[place]upe .48 x10 .00-1.20 Absolute) Eos Absolute (test code = Eos 0.13 x10 0.00-0.74 Absolute) Baso Absolute (test code = Baso 0.03 x10 0.00-0.21 Absolute) IG [id number] 17:32:54 Test Item Value Reference Range Interpretation Comments IG (test code = IG) 0.3 % 0.0-5.0 IG Abs (test code = IG Abs) 0 x10 N POC [id number] 18:09:54 Test Item Value Reference Range Interpretation Comments Glucose POC (test 105 mg/dL 70-115 If you con long term acute care registered nurse your code = Glucose POC) patient critically ill, the Herm[place]-Accu Check Infrom II meter should not be used for Glucose determination. Draw a venous Glucose and send to the main Lab for analysis. XR Chest 1 View [id number] 17:13:03Patient: EVA HARDEN Date/Time02/18/2019 17:10 CDTReason for ExamFeverReportCHEST 1 VIEWCLINICAL INFORMATION: FeverCOMPARISON: Chest radiograph dated December 05, 2017FINDINGS:The lungs are well-expanded and clear. No airspace consolidation is seen. No pneumothorax or pleural effusion is present. The cardiac silhouette is normal in size. The bones are grossly intact.IMPRESSION:No acute cardiopulmonary finding.LOCATION: R16 Final *Dictated by: MD Dia Adam FDictated DT/TM: 02/18/2019 5:12 pmSigned by: MD Dia Adam FSigned (Electronic Signature): 02/18/2019 5:13 pmCT Abdomen and Pelvis w/o [id number] 16:07:13Patient: EVA HARDEN Date/Time02/18/2019 15:54 CDTReason for [...] gastric bypass. No bowel obstruction. Normal appendix.LOCATION: [id number] CT exam was performed according to our departmental dose optimization program, which includes automated exposure control, adjustment of the mA and/or kV according to the patient size and/or use of iterative reconstructive technique. Final Dictatedby: MD Moore Melanie CDictated DT/TM: 02/18/2019 4:00 pmSigned by: MD Moore Melanie CSigned (Electronic Signature): 02/18/2019 4:07 pmComprehensive Metabolic Panel 2019-02-18 12:49:45 Test Item Value Reference Range Interpretation Comments Sodium Level (test code = Sodium 140.0 mmol/L 135.0-145.0 Level) Potassium Level (test code = 3.8 mmol/L 3.5-5.1 Potassium Level) Chloride Level (test code = 102 mmol/L 98-105 Chloride Level) CO2 (test code = CO2) 27 mmol/L 22-29 Anion Gap (test code = Anion 11 mmol/L 7-16 Gap) BUN (test code = BUN) 7.90 mg/dL 6.00-20.00 Creatinine Level (test code = 0.60 mg/dL 0.50-0.90 Creatinine Level) BUN/Creat Ratio (test code = 13 N BUN/Creat Ratio) Glucose Level (test code = 99 mg/dL 70-115 Glucose Level) Calcium Level (test code = 9.3 mg/dL 8.3-10.5 Calcium Level) Alk Phos (test code = Alk Phos) 109 U/L 35-104 H Bilirubin Total (test code = 0.4 mg/dL 0.1-0.9 Bilirubin Total) Albumin Level (test code = 4.7 g/dL 3.5-5.2 Albumin Level) Protein Total (test code = 7.4 g/dL 6.4-8.3 Protein Total) ALT (test code = ALT) 24 U/L 1-33 AST (test code = AST) 16 U/L 1-32 Globulin (test code = Globulin) 2.7 g/dL 2.9-3.1 L A/G Ratio (test code = A/G 1.7 ratio N Ratio) Comprehensive Metabolic [id number] 12:49:45 Test Item Value Reference Range Interpretation Comments Sodium Level (test 140.0 mmol/L 135.0-145.0 code = Sodium Level) Potassium Level 3.8 mmol/L 3.5-5.1 (test code = Potassium Level) Chloride Level (test 102 mmol/L 98-105 code = Chloride Level) CO2 (test code = 27 mmol/L 22-29 CO2) Anion Gap (test code 11 mmol/L 7-16 = Anion Gap) BUN (test code = 7.90 mg/dL 6.00-20.00 BUN) Creatinine Level 0.60 mg/dL 0.50-0.90 (test code = Creatinine Level) BUN/Creat Ratio 13 N (test code = BUN/Creat Ratio) Glucose Level (test 99 mg/dL 70-115 code = Glucose Level) Calcium Level (test 9.3 mg/dL 8.3-10.5 code = Calcium Level) Alk Phos (test code 109 U/L 35-104 H = Alk Phos) Bilirubin Total 0.4 mg/dL 0.1-0.9 (test code = Bilirubin Total) Albumin Level (test 4.7 g/dL 3.5-5.2 code = Albumin Level) Protein Total (test 7.4 g/dL 6.4-8.3 code = Protein Total) ALT (test code = 24 U/L 1-33 ALT) AST (test code = 16 U/L 1-32 AST) Globulin (test code 2.7 g/dL 2.9-3.1 L = Globulin) A/G Ratio (test code 1.7 ratio N = A/G Ratio) eGFR AA (test code = >60 N eGFR (e stimated eGFR AA) mL/min/1.73 m2 Glomerular Filtration Rate ) is an estimated va lue, calculated from the patient's serum creatinine usin g the MDRD equation. It is NOT the patient 's actual GFR. The eGFR provides a more clinically usef ul measure of kidn ey disease than se rum creatinine alone.This calculation prateek es sex and race in to account, if the information is provided. If th e race is not provided, and t he patient is -Pari n, multiply by 1.2 12. If sex is not provided, and t he patient is fema le, multiply by 0.7 42. Results for pat ients <18 years of ag e have not been validated by th e MDRD study and should be interpreted wit h caution. eGFR R esult Interpretation: eGFR > or = 60 is in the Normal RangeeGF R < 60 may mean kid fadumo diseaseeGFR < 1 5 may mean kidney failure Rang es recommended by the National Kidney Foundation, http://nkdep.ni h.gov Comprehensive Metabolic [id number] 12:49:45 Test Item Value Reference Range Interpretation Comments Sodium Level (test 140.0 mmol/L 135.0-145.0 code = Sodium Level) Potassium Level 3.8 mmol/L 3.5-5.1 (test code = Potassium Level) Chloride Level (test 102 mmol/L 98-105 code = Chloride Level) CO2 (test code = 27 mmol/L 22-29 CO2) Anion Gap (test code 11 mmol/L 7-16 = Anion Gap) BUN (test code = 7.90 mg/dL 6.00-20.00 BUN) Creatinine Level 0.60 mg/dL 0.50-0.90 (test code = Creatinine Level) BUN/Creat Ratio 13 N (test code = BUN/Creat Ratio) Glucose Level (test 99 mg/dL 70-115 code = Glucose Level) Calcium Level (test 9.3 mg/dL 8.3-10.5 code = Calcium Level) Alk Phos (test code 109 U/L 35-104 H = Alk Phos) Bilirubin Total 0.4 mg/dL 0.1-0.9 (test code = Bilirubin Total) Albumin Level (test 4.7 g/dL 3.5-5.2 code = Albumin Level) Protein Total (test 7.4 g/dL 6.4-8.3 code = Protein Total) ALT (test code = 24 U/L 1-33 ALT) AST (test code = 16 U/L 1-32 AST) Globulin (test code 2.7 g/dL 2.9-3.1 L = Globulin) A/G Ratio (test code 1.7 ratio N = A/G Ratio) eGFR AA (test code = >60 N eGFR (e stimated eGFR AA) mL/min/1.73 m2 Glomerular Filtration Rate ) is an estimated va lue, calculated from the patient's serum creatinine usin g the MDRD equation. It is NOT the patient 's actual GFR. The eGFR provides a more clinically usef ul measure of kidn ey disease than se rum creatinine alone.This calculation prateek es sex and race in to account, if the information is provided. If th e race is not provided, and t he patient is -Pari n, multiply by 1.2 12. If sex is not provided, and t he patient is fema le, multiply by 0.7 42. Results for pat ients <18 years of ag e have not been validated by th e MDRD study and should be interpreted wit h caution. eGFR R esult Interpretation: eGFR > or = 60 is in the Normal RangeeGF R < 60 may mean kid fadumo diseaseeGFR < 1 5 may mean kidney failure Rang es recommended by the National Kidney Foundation, http://nkdep.ni h.gov eGFR Non-AA (test >60.00 N eGFR (simon mated code = eGFR Non-AA) mL/min/1.73 m2 Glomer ular Filtration Rate ) is an estimated va lue, calculated from the patient's serum creatinine usin g the MDRD equation. It is NOT the patient 's actual GFR. The eGFR provides a more clinically usef ul measure of kidn ey disease than se rum creatinine alone.This calculation prateek es sex and race in to account, if the information is provided. If th e race is not provided, and t he patient is -Pari n, multiply by 1.2 12. If sex is not provided, and t he patient is fema le, multiply by 0.7 42. Results for pat ients <18 years of ag e have not been validated by e MDRD study and should be interpreted wit h caution. eGFR R esult Interpretation: eGFR > or = 60 is in the Normal RangeeGF R < 60 may mean kid fadumo diseaseeGFR < 1 5 may mean kidney failure Rang es recommended by the National Kidney Foundation, http://nkdep.ni h.gov Troponin [id number] 12:39:41 Test Item Value Reference Range Interpretation Comments Troponin-T (test <6.000 ng/L 0.000-14.000 The CV of t he assay at code = Troponin-T) 99th perc entile for both male and female patient population is < 10%. A rise and fall i n AMBER with at least o ne value above the 99th percentile with clinical evidence of real cardial ischemia would support a diagnosis of AM I. A delta of at robbi st 20% is recommended to access acute changes i n results above the 99th percentile in s erial measurements. S table AMBER levels (<20%) d elta above the 99th percentile URL would support a diagn osis of chronic myocard ial injury. Prothrombin Time and [id number] 12:35:43 Test Item Value Reference Range Interpretation Comments Prothrombin Time (test code = 12.5 seconds 9.8-13.4 Prothrombin Time) INR (test code = INR) 1.1 ratio 0.6-1.2 Partial Thromboplastin [id number] 12:35:43 Test Item Value Reference Range Interpretation Comments Partial Thromboplastin Time 33.30 seconds 24.39-37.25 (test code = Partial Thromboplastin Time) Lipase [id number] 12:33:48 Test Item Value Reference Range Interpretation Comments Lipase Level (test code = Lipase 19 U/L 13-60 Level) Automated [id number] 12:26:00 Test Item Value Reference Range Interpretation Comments Neutro Auto (test code = Neutro 84.1 % 36.0-70.0 H Auto) Lymph Auto (test code = Lymph Auto) 9.6 % 12.0-44.0 L Guadalupe Auto (test code = Guadalupe Auto) 5.4 % 0.0-11.0 Eos, Auto (test code = Eos, Auto) 0.6 % 0.0-7.0 Basophil Auto (test code = Basophil 0.2 % 0.0-2.0 Auto) Neutro Absolute (test code = Neutro 8.0 x10 1.6-7.4 H Absolute) Lymph Absolute (test code = Lymph .92 x10 .50-4.60 Absolute) Guadalupe Absolute (test code = Guadalupe .52 x10 .00-1.20 Absolute) Eos Absolute (test code = Eos 0.06 x10 0.00-0.74 Absolute) Baso Absolute (test code = Baso 0.02 x10 0.00-0.21 Absolute) IG [id number] 12:26:00 Test Item Value Reference Range Interpretation Comments IG (test code = IG) 0.1 % 0.0-5.0 IG Abs (test code = IG Abs) 0 x10 N Complete Blood Count with [id number] 12:25:59 Test Item Value Reference Range Interpretation Comments WBC (test code = WBC) 9.6 x10 4.4-10.5 RBC (test code = RBC) 5.18 x10 3.75-5.20 Hgb (test code = Hgb) 14.5 g/dL 12.2-14.8 Hct (test code = Hct) 43.0 % 36.5-44.4 MCV (test code = MCV) 83.00 fL 80.00-100.00 MCHC (test code = 33.70 g/dL 32.00-37.50 MCHC) RDW CV (test code = 13.5 % 11.5-14.5 RDW CV) MCH (test code = MCH) 28.0 pg 27.0-32.5 Platelets (test code = 236.0 x10 140.0-440.0 Platelets) MPV (test code = MPV) 10.4 fL N Slide Review (test Auto Auto Result cr eated by code = Slide Review) GL_SJM_ SLIDE_REV_AUTO nRBC (test code = 0 N nRBC) NRBC Abs (test code = 0.00 x10 N NRBC Abs) Urinalysis with Culture, if [id number] 12:25:24 Test Item Value Reference Range Interpretation Comments UA Color (test code = YELLO Yellow UA Color) UA Appear (test code = CLEAR Clear UA Appear) UA pH (test code = UA 7 N pH) UA Spec Grav (test 1.018 1.001-1.035 code = UA Spec Grav) UA Glucose (test code NEG Negative = UA Glucose) UA Bili (test code = NEG Negative UA Bili) UA Ketones (test code NEG Negative = UA Ketones) UA Blood (test code = NEG Negative UA Blood) UA Protein (test code NEG Negative = UA Protein) UA Urobilinogen (test 0.2 mg/dL N code = UA Urobilinogen) UA Nitrite (test code NEG Negative = UA Nitrite) UA Leuk Est (test code NEG Negative = UA Leuk Est) UA Micro Ind? (test Not Indicated Not Indicated Result created by code = UA Micro Ind?) rule GL_SJM_UA_MICRO _IN D HCG Qualitative [id number] 12:25:09 Test Item Value Reference Range Interpretation Comments hCG Ur (test code = Negative If the r esult is hCG Ur) "Negative" in p atients suspected to be , recom mend retest with a s ample obtained 48 to 72 hours later, or by ordering a quantitative as say. If the result i s "Borderline" te sting should be repea gabriella in 48 to 72 hours. Lot # (test code = [id number] N Lot #) Expiration Dt (test 07/08/2020 N code = Expiration Dt) Neg Control (test Negative code = Neg Control) Pos Control (test Positive code = Pos Control) Internal QC (test Acceptable code = Internal QC) TROPONIN [id number] 09:14:00 Test Item Value Reference Range Interpretation Comments TROPONIN I (BEAKER) (test code = 0.03 ng/mL 0.00-0.03 397) Troponin I (TnI) levels must be interpreted [...] (CK)2019-02-12 09:08:00 Test Item Value Reference Range Interpretation Comments CREATINE KINASE TOTAL (BEAKER) (test 50 U/L 29-200 code = 380) CT, CHEST WITH IV CONTRAST- PE TEST [id number] 08:15:00Reason for exam:- >CHEST PAINIs the patient ?->NoWhat is the patient's sedation requirement?->No SedationFINAL REPORT CT Chest with contrast (PE protocol) History: chest pain Comparison: none Technique: serial axial imaging was performed following up to 100cc of non ionic iodinated i ntravenous contrast as per departmental protocol. Multiplanar, and [...] MDReport Verified Date/Time: 02/12/2019 08:15:11 Reading Location: [facility] Reading Room - [place] [address] B-TYPE NATRIURETIC FACTOR (BNP)2019-02-12 07:13:00 Test Item Value Reference Range Interpretation Comments B-TYPE NATRIURETIC PEPTIDE (BEAKER) 23 pg/mL 0-100 (test code = 700) TROPONIN [id number] 07:13:00 Test Item Value Reference Range Interpretation Comments TROPONIN I (BEAKER) (test code = 397) < ng/mL 0.00-0.03 Troponin I (TnI) levels [...] acute neurological disease, and persistent tachyarrhythmia.BASIC METABOLIC [id number] 07:09:00 Test Item Value Reference Range Interpretation Comments SODIUM (BEAKER) 142 meq/L 136-145 (test code = 381) POTASSIUM (BEAKER) 4.0 meq/L 3.5-5.1 Specimen slightly (test code = 379) hemolyzed CHLORIDE (BEAKER) 107 meq/L 98-107 (test code = 382) CO2 (BEAKER) (test 30 meq/L 22-29 H code = 355) BLOOD UREA NITROGEN 9 mg/dL 7-21 (BEAKER) (test code = 354) CREATININE (BEAKER) 0.65 mg/dL 0.57-1.25 Specimen slightly (test code = 358) hemolyzed GLUCOSE RANDOM 88 mg/dL 70-105 (BEAKER) (test code = 652) CALCIUM (BEAKER) 9.4 mg/dL 8.4-10.2 (test code = 697) EGFR (BEAKER) (test mL/min/1.73 INSUFFIC IENT CLINICAL code = 1092) sq m DATA TO CALCULA TE ESTIMATED GFR. [id number] 07:07:00 Test Item Value Reference Range Interpretation Comments MAGNESIUM (BEAKER) 2.3 mg/dL 1.6-2.6 Specimen slightly (test code = 627) hemolyzed CREATINE KINASE (CK)2019-02-12 07:07:00 Test Item Value Reference Range Interpretation Comments CREATINE KINASE TOTAL (BEAKER) (test 64 U/L 29-200 code = 380) [id number] 06:43:00 Test Item Value Reference Range Interpretation Comments PROTIME (BEAKER) (test code = 13.2 seconds 11.9-14.2 759) INR (BEAKER) (test code = 370) 1.1 <=5.9 PARTIAL THROMBOPLASTIN TIME 28.0 seconds 22.5-36.0 (BEAKER) (test code = 760) Effective 02/03/2019: PT Reference Range ChangeNew: 11.9-14.2 Previous: 11.7- 14.7RECOMMENDED COUMADIN/WARFARIN INR THERAPY RANGESSTANDARD DOSE: 2.0-3.0 Includes: PROPHYLAXIS for venous thrombosis, systemic embolization; TREATMENT for venous thrombosis and/or pulmonary embolus.HIGH RISK: Target INR is2.5-3.5 for patients wiht mechanical heart valves.CBC W/PLT COUNT & AUTO [id number] 06:37:00 Test Item Value Reference Range Interpretation Comments WHITE BLOOD CELL COUNT (BEAKER) 6.6 K/ L 3.5-10.5 (test code = 775) RED BLOOD CELL COUNT (BEAKER) 4.72 M/ L 3.93-5.22 (test code = 761) HEMOGLOBIN (BEAKER) (test code = 12.9 GM/DL 11.2-15.7 410) HEMATOCRIT (BEAKER) (test code = 40.3 % 34.1-44.9 411) MEAN CORPUSCULAR VOLUME (BEAKER) 85.4 fL 79.4-94.8 (test code = 753) MEAN CORPUSCULAR HEMOGLOBIN 27.3 pg 25.6-32.2 (BEAKER) (test code = 751) MEAN CORPUSCULAR HEMOGLOBIN CONC 32.0 GM/DL 32.2-35.5 L (BEAKER) (test code = 752) RED CELL DISTRIBUTION WIDTH 13.7 % 11.7-14.4 (BEAKER) (test code = 412) PLATELET COUNT (BEAKER) (test 249 K/CU MM 150-450 code = 756) MEAN PLATELET VOLUME (BEAKER) 10.7 fL 9.4-12.3 (test code = 754) NUCLEATED RED BLOOD CELLS 0 /100 WBC 0-0 (BEAKER) (test code = 413) NEUTROPHILS RELATIVE PERCENT 58 % (BEAKER) (test code = 429) LYMPHOCYTES RELATIVE PERCENT 32 % (BEAKER) (test code = 430) MONOCYTES RELATIVE PERCENT 7 % (BEAKER) (test code = 431) EOSINOPHILS RELATIVE PERCENT 2 % (BEAKER) (test code = 432) BASOPHILS RELATIVE PERCENT 0 % (BEAKER) (test code = 437) NEUTROPHILS ABSOLUTE COUNT 3.85 K/ L 1.56-6.13 (BEAKER) (test code = 670) LYMPHOCYTES ABSOLUTE COUNT 2.13 K/ L 1.18-3.74 (BEAKER) (test code = 414) MONOCYTES ABSOLUTE COUNT (BEAKER) 0.45 K/ L 0.24-0.36 H (test code = 415) EOSINOPHILS ABSOLUTE COUNT 0.13 K/ L 0.04-0.36 (BEAKER) (test code = 416) BASOPHILS ABSOLUTE COUNT (BEAKER) 0.02 K/ L 0.01-0.08 (test code = 417) IMMATURE GRANULOCYTES-RELATIVE 0 % 0-1 PERCENT (BEAKER) (test code = 2801) RAD, CHEST, 1 VIEW, NON [id number] 05:59:00Reason for exam:->CHEST PAINIs the patient ?->UnknownFINAL REPORT Chest, 1 view. History: Chest pain Comparison: None available. Findings: The cardiomediastinal silhouette and pulmonary vasculature are within normal limits for a portable exam. The lungs are clear without evidence of consolidation or effusion. The soft tissues and osseous structures are intact. IMPRESSION: No acute cardiopulmonary abnormality. Signed: Gabby Bernabe Verified Date/Time: 02/12/2019 05:59:10 [id number] 08:06:00 Test Item Value Reference Range Interpretation Comments GLUBED (test code = 90 MG/DL 70-110 N Performe d by certified GLUBED) clarifier operator at [facility] [id number] 07:36:00 Test Item Value Reference Range Interpretation Comments GLUBED (test code = 95 MG/DL 70-110 N Performe d by certified GLUBED) clarifier operator at [facility] [id number] 16:41:00 Test Item Value Reference Range Interpretation Comments GLUBED (test code = 123 MG/DL 70-110 H Performe d by certified GLUBED) clarifier operator at [facility] - MRI L-SPINE W/O [id number] 13:50:00 FAX: Otilia Butler MD [phone] [place]: St: ADM FAX: Nichole Orozco MD [phone] FAX: Jocelin Jones MD [phone] Name: EVA HARDEN : 1970 Age/S: 48/F [address] [place] [address] Unit #: [id number] Loc: [place] [address] Phys: Jocelin Jones MD Acct: [id number] Dis Date: Status: ADM IN PHONE #: [phone] Exam Date: 01/19/2019 1343 FAX #: [phone] Reason: radiculopathy EXAMS: CPT CODE: [id number] MRI L-SPINE W/O CONT [id number] MRI lumbar spine without contrast 01/19/2019 HISTORY: [...] hypertrophy and ligamentum flavum hypertrophy is noted. T here is fluid in the facet joints. There is mild bilateral neural foraminal narrowing and mild spinal canal stenosis in the lateral projection At L5-S1, mild disc desiccationis noted. There is mild annular bulging and posterior lateral osteophytes resulting in mild bi lateral neural foraminal narrowing and no significant spinal canal stenosis. Mild bilateral facet hypertrophy is noted. IMPRESSION: 1. Mild bilateral neural foraminal narrowing at L4-5 and L5-S1. 2. Mild spinal canal stenosis at L4-5. 3. No disc h erniation. SL: [id number] PAGE 1 Signed Report (CONTINUED) FAX: Otilia Butler MD [phone] [place]: GC St: ADM FAX: Nichole Orozco MD [phone] FAX: Jocelin Jones MD [phone] ----- Name: EVA HARDEN [facility] : 1970 Age/S: 48/F [address] [place] [address] Unit #: [id number] Loc: [address] [address] Phys: Jocelin Jones MD Acct: [id number] Dis Date: Status: ADM IN PHONE #: [phone] Exam Date: 01/19/2019 1343 FAX #: [phone] Reason: radiculopathy EXAMS: CPT CODE: [id number] MRIL-SPINE W/O CONT 93369 <Continued> at 1350 Reported and signed by: Champ Loya M.D. CC: Otilia Nguyễn MD; Nichole Orozco MD; Jocelin Jones MD Technologist: RT Emil(R)(CT)(MR) Trnderd Date/Time/By: 01/19/2019 (0706) : By: [email or web address] Orig Print D/T: S:01/19/2019 (3827) PAGE 2 Signed Report- MRI BRAIN W/O [id number] 13:47:00 FAX: Otilia Butler MD [phone] [place]: St: ADM FAX: Nichole Orozco MD [phone] FAX: Jocelin Jones MD [phone] Name: EVA HARDEN : 1970 Age/S: 48/F [address] [place] [address] Unit #: [id number] Loc: [address] [place] [address] Phys: Jocelin Jones MD Acct: [id number] Dis Date: Status: ADM IN PHONE #: [phone] Exam Date: 01/19/2019 1343 FAX #: [phone] Reason: ms EXAMS: CPT CODE: [id number] MRI BRAIN W/O CONT 35115 MRI brain without contrast 01/19/2019 HISTORY: Weakness [...] air cells are clear. There is no air- fluid level in the visualized paranasal sinuses. The expected intracranial flow voids are present. Right nasal septal deviation is present. IMPRESSION: No acute intracranial abnormality. SL: [id number] at 1347 Reported and signed by: Champ Loya M.D. CC: Otilia Nguyễn MD; Nichole Orozco MD; Jocelin Jones MD Technologist: RT Emil(R)(CT)(MR) Trnscrd Date/Time/By: 01/19/2019 (5807) : By: [email or web address] Orig Print D/T: S: 0 01/19/2019 (0526) PAGE 1 Signed ReportCBC W/AUTO [id number] 08:32:00 Test Item Value Reference Range Interpretation Comments WHITE BLOOD CELL (test code = 9.71 x10 3/uL 4.5-11.0 WBC) RED BLOOD CELL (test code = 4.09 x10 6/uL 3.54-5.02 N RBC) HEMOGLOBIN (test code = HGB) 11.5 g/dL 11.0-15.0 N HEMATOCRIT (test code = HCT) 34.7 % 33.0-45.0 N MEAN CELL VOLUME (test code = 84.8 fL 81.0-99.0 N MCV) MEAN CELL HGB (test code = MCH) 28.1 pg 27.0-33.0 N MEAN CELL HGB CONCETRATION 33.1 g/dL 33.0-37.0 N (test code = MCHC) RED CELL DISTRIBUTION WIDTH CV 13.7 % 11.5-14.5 N (test code = RDW) RED CELL DISTRIBUTION WIDTH SD 42.5 fL 37.0-54.0 N (test code = RDW-SD) PLATELET COUNT (test code = 221 x10 3/uL 150-400 N PLT) MEAN PLATELET VOLUME (test code 11.5 fL 7.0-9.0 H = MPV) NEUTROPHIL % (test code = NT%) 79.3 % 56.0-77.0 H IMMATURE GRANULOCYTE % (test 0.3 % 0.0-2.0 N code = IG%) LYMPHOCYTE % (test code = LY%) 14.7 % 14.0-32.0 N MONOCYTE % (test code = MO%) 5.5 % 4.8-9.0 N EOSINOPHIL % (test code = EO%) 0.1 % 0.3-3.7 L BASOPHIL % (test code = BA%) 0.1 % 0.0-2.0 N NUCLEATED RBC % (test code = 0.0 % 0-0 N NRBC%) NEUTROPHIL # (test code = NT#) 7.70 x10 3/uL 2.0-7.6 H IMMATURE GRANULOCYTE # (test 0.03 x10 3/uL 0.00-0.03 N code = IG#) LYMPHOCYTE # (test code = LY#) 1.43 x10 3/uL 1.0-3.8 N MONOCYTE # (test code = MO#) 0.53 x10 3/uL 0.1-0.8 N EOSINOPHIL # (test code = EO#) 0.01 x10 3/uL 0.0-0.2 N BASOPHIL # (test code = BA#) 0.01 x10 3/uL 0.0-0.2 N NUCLEATED RBC # (test code = 0.00 x10 3/uL 0.0-0.1 N NRBC#) MANUAL DIFF REQUIRED (test code NO = MDIFF) VITAMIN [id number] 08:29:00 Test Item Value Reference Range Interpretation Comments VITAMIN B12 (test code = VITB12) 386 pg/mL 193-986 N C REACTIVE [id number] 07:54:00 Test Item Value Reference Range Interpretation Comments C REACTIVE PROTEIN (test code = < 2.9 MG/L 0.0-2.9 N CRP) SED RATE [id number] 07:52:00 Test Item Value Reference Range Interpretation Comments SED RATE WESTERGREN (test code = 2 mm/hr 0-20 N SEDW) BASIC METABOLIC [id number] 06:56:00 Test Item Value Reference Range Interpretation Comments SODIUM (test code = NA) 143 mEq/L 134-147 N POTASSIUM (test code = 3.5 mEq/L 3.4-5.0 N K) CHLORIDE (test code = 109 mEq/L 100-108 H CL) CARBON DIOXIDE (test 27 mEq/L 21-33 N code = CO2) ANION GAP (test code = 11 0-20 N GAP) GLUCOSE (test code = 150 mg/dL 70-110 H GLU) BLOOD UREA NITROGEN 12 mg/dL 7-18 N (test code = BUN) GLOMERULAR FILTRATION 131.1 95-105 H Units of measure = RATE (test code = GFR) ml/mi n/1.73 m2 CREATININE (test code = 0.5 mg/dL 0.6-1.3 L CREAT) CALCIUM (test code = 7.9 mg/dL 8.0-10.5 L CA) COMMENTS: 3 troponins total (including troponin done in ED)THYROID STIMULATING [id number] 06:56:00 Test Item Value Reference Range Interpretation Comments THYROID STIMULATING 0.18 0.42-5.47 L Results in HORMONE (test code = TSH) mi lli-International Units/mL COMMENTS: 3 troponins total (including troponin done in ED)[id number] 06:56:00 Test Item Value Reference Range Interpretation Comments TROPONIN-I < 0.015 ng/mL 0.000-0.045 N Negative: <= (test code = 0.045 Positive: TROPI) >= 0.046 Correl ation with serial results, other cardiac markers andclinical findings is nec essary to determine the clinicalsignifi cance of this result. Results using different metho dologies should not be c omparedto one another as arline titative results may jesús y by method. COMMENTS: 3 troponins total (including troponin done in ED)[id number] 12:21:00 Test Item Value Reference Range Interpretation Comments TROPONIN-I < 0.015 ng/mL 0.000-0.045 N Negative: <= (test code = 0.045 Positive: TROPI) >= 0.046 Correl ation with serial results, other cardiac markers andclinical findings is nec essary to determine the clinicalsignifi cance of this result. Results using different metho dologies should not be c omparedto one another as arline titative results may jesús y by method. COMMENTS: 3 troponins total (including troponin done in ED)- CT ANGIO CHEST 2019-01-18 10:39:00 Name: EVA HARDEN [facility] : 1970 Age/S: 48 / F [address] [place] [address] Unit #: [id number] Loc: New [id number] Phys: Dick Silverman MD Acct: [id number] Dis Date: Status: REG ER PHONE #: [phone] Exam Date: 01/18/2019 1018 FAX #: [phone] Reason: chest pain, SOB, elevated d-dimer EXAMS: CPTCODE: [id number] CT ANGIO CHEST 51026 PROCEDURE: C TA CHEST INDICATION: Chest pain. Shortness of breath. [...] 1 Signed Report (CONTINUED) Name: EVA HARDEN [facility] [place] : 1970 Age/S: 48 / F [address] [place] [address] Unit #: [id number] Loc: [place] [address] Phys: Dick Silverman MD Acct: [id number] Dis Date: Status: REG ER PHONE #: [phone] Exam Date: 01/18/2019 1018 FAX #: [phone] Reason: chest pain, SOB, elevated d-dimer EXAMS: CPT CODE: [id number] CT ANGIO CHEST 59324 <Continued> symptoms. SL: [id number] at 1039 Reported and signed by: Chuy Diaz M.D. CC: Otilia Nguyễn MD; Dick Silverman MD Technologist:Gio Foster, RT(R) CTDI: DLP: Trnscb Date/Time: 01/18/2019 (1039) Lexx Orig Print D/T: S: 01/18/2019 (4932) PAGE 2 Signed Report [id number] 08:12:00 Test Item Value Reference Range Interpretation Comments D-DIMER (test 801 ng/mlFEU <=500 HH THROMBOSIS AN D/OR PULMONARY code = EMBOLISM AND TH E CLINICAL DDIMER) CUT- OFF VALUE FOR EXCLUSION (500 ng/mL FEU) OF THESE CONDITIONSIS VA LIDATED BY THE MANUFACTURE R OF THE METHOD. A NEGAT ALBERTO D-DIMER RESULT WHEN COM BINED WITH A CLINICALASSESSM ENT OF LOW PRETEST PROBABI LITY HAS BEEN SHOWN TO HAVEA HIGH NEGATIVE PREDICTIVE VALU E OF DVT OR PE. D-DIMER MERRICK UES >500 ng/mL FEU ARE N OT DIAGNOSTIC FOR DVT, PEor D IC WITHOUT OTHER CONFIRMAT ORY TESTS AND APPROPRIATECLIN ICAL EUALUATIONS. HEPATIC FUNCTION [id number] 08:09:00 Test Item Value Reference Range Interpretation Comments TOTAL PROTEIN (test code = PROT) 7.1 g/dL 6.4-8.2 N ALBUMIN (test code = ALB) 3.60 g/dL 3.4-5.0 N BILIRUBIN TOTAL (test code = 0.40 mg/dL 0.0-1.0 N BILT) BILIRUBIN DIRECT (test code = < 0.10 MG/DL 0.0-0.30 N BILD) BILIRUBIN INDIRECT (test code = 0.30 MG/DL BILIND) SGOT/AST (test code = AST) 11 IUnit/L 15-37 L SGPT/ALT (test code = ALT) 29 IUnit/L 15-65 N ALKALINE PHOSPHATASE TOTAL (test 98 IUnit/L 20-125 N code = ALKP) [id number] 08:09:00 Test Item Value Reference Range Interpretation Comments LIPASE (test code = LIP) 88 IUnit/L 73-393 N CBC W/AUTO [id number] 08:03:00 Test Item Value Reference Range Interpretation Comments WHITE BLOOD CELL (test code = 5.39 x10 3/uL 4.5-11.0 N WBC) RED BLOOD CELL (test code = 4.45 x10 6/uL 3.54-5.02 N RBC) HEMOGLOBIN (test code = HGB) 12.3 g/dL 11.0-15.0 N HEMATOCRIT (test code = HCT) 37.0 % 33.0-45.0 N MEAN CELL VOLUME (test code = 83.1 fL 81.0-99.0 N MCV) MEAN CELL HGB (test code = MCH) 27.6 pg 27.0-33.0 N MEAN CELL HGB CONCETRATION 33.2 g/dL 33.0-37.0 N (test code = MCHC) RED CELL DISTRIBUTION WIDTH CV 13.7 % 11.5-14.5 N (test code = RDW) RED CELL DISTRIBUTION WIDTH SD 41.6 fL 37.0-54.0 N (test code = RDW-SD) PLATELET COUNT (test code = 238 x10 3/uL 150-400 N PLT) MEAN PLATELET VOLUME (test code 11.1 fL 7.0-9.0 H = MPV) NEUTROPHIL % (test code = NT%) 57.1 % 56.0-77.0 N IMMATURE GRANULOCYTE % (test 0.2 % 0.0-2.0 N code = IG%) LYMPHOCYTE % (test code = LY%) 32.1 % 14.0-32.0 H MONOCYTE % (test code = MO%) 7.2 % 4.8-9.0 N EOSINOPHIL % (test code = EO%) 3.0 % 0.3-3.7 N BASOPHIL % (test code = BA%) 0.4 % 0.0-2.0 N NUCLEATED RBC % (test code = 0.0 % 0-0 N NRBC%) NEUTROPHIL # (test code = NT#) 3.08 x10 3/uL 2.0-7.6 N IMMATURE GRANULOCYTE # (test 0.01 x10 3/uL 0.00-0.03 N code = IG#) LYMPHOCYTE # (test code = LY#) 1.73 x10 3/uL 1.0-3.8 N MONOCYTE # (test code = MO#) 0.39 x10 3/uL 0.1-0.8 N EOSINOPHIL # (test code = EO#) 0.16 x10 3/uL 0.0-0.2 N BASOPHIL # (test code = BA#) 0.02 x10 3/uL 0.0-0.2 N NUCLEATED RBC # (test code = 0.00 x10 3/uL 0.0-0.1 N NRBC#) MANUAL DIFF REQUIRED (test code NO = MDIFF) - XR CHEST 2 [id number] 08:01:00 FAX: Otilia Butler MD [phone] [place]: St: REG FAX: Dick Silverman MD [phone] Name: EVA HARDEN [facility] : 1970 Age/S: 48/F [address] [place] [address] Unit #: [id number] Loc: G.ERS2 [place] [address] Phys: Dick Silverman MD Acct: [id number] Dis Date: Status: REG ER PHONE #: [phone] Exam Date: 01/18/2019 0758 FAX #: [phone] Reason: Chest Pain EXAMS: CPT CODE: [id number] XR CHEST 2 V 34629 2 view chest x-ray performed January 18, 2019 0751 hours. COMPARISON: October 24, 2018.CLINICAL HISTORY: Chest pain. DISCUSSION: 2 views/ films of the chest are submitted.Lungs are clear bilaterally. Cardiomediastinal silhouette is normal. Osseous structures are within normal limits. IMPRESSION: Normal Chest X-ray. at 0801 Reported and signed by: Darling Tamayo M.D. CC: Otilia Nguyễn MD; Dick Silverman MD Technologist: RT Bunny(R) Trnscrd Date/Time/By: 01/18/2019 (0801) : By: PorscheNMG Orig Print D/T: S: 01/18/2019 (0804) PAGE 1 Signed ReportTROPONIN-I [id number] 07:45:00 Test Item Value Reference Range Interpretation Comments TROPONIN-I RAPID 0.01 ng/mL 0.00-0.08 N Performed b y certified (test code = clarifier operator at [facility] Negative: <= 0.0 8 Positive: >= 0.09An elevated troponin value alone is not sufficient todi agnose a myocardial infa rction. Rather, the pat ient sclinical prese ntation (history, physi chika exam) and ECGshould b e used in conjunction wit h troponin in thediagnosti c evaluation of s uspected myocardial infa rction. Aserial samplin g protocol is recommended to facilitate the identification of temporal changes in trop onin levels characteristic of GA. CHEMISTRY 8 [id number] 07:37:00 Test Item Value Reference Range Interpretation Comments ISTAT-SODIUM (test code = NAP) MMOL/L 134-147 ISTAT-POTASSIUM (test code = KP) MMOL/L 3.4-5.0 ISTAT-CHLORIDE (test code = CLP) MMOL/L 100-108 ISTAT CARBON DIOXIDE (test code = mmol/L 21-33 N ISTAT-CO2) ISTAT CALCIUM IONIZED (test code = MG/DL 1.12-1.32 ISTAT-SHARRON) ISTAT-GLUCOSE (test code = GLUP) MG/DL 70-110 N ISTAT-BUN (test code = BUNP) MG/DL 7-18 N BEDSIDE CREATININE (test code = MG/DL 0.6-1.3 L CREATBED) GLOMERULAR FILTRATION RATE POC 139 ML/MIN (test code = GFRBED) CHEMISTRY 8 [id number] 07:37:00 Test Item Value Reference Range Interpretation Comments ISTAT-SODIUM (test 142 MMOL/L 134-147 N code = NAP) ISTAT-POTASSIUM (test 3.4 MMOL/L 3.4-5.0 N code = KP) ISTAT-CHLORIDE (test 103 MMOL/L 100-108 N Perform ed by code = CLP) certified opera tor at [facility] ISTAT CARBON DIOXIDE 24.0 mmol/L 21-33 N (test code = ISTAT-CO2) ISTAT CALCIUM IONIZED 1.21 MG/DL 1.12-1.32 N (test code = ISTAT-SHARRON) ISTAT-GLUCOSE (test 81 MG/DL 70-110 N code = GLUP) ISTAT-BUN (test code = 9 MG/DL 7-18 N BUNP) BEDSIDE CREATININE 0.5 MG/DL 0.6-1.3 L (test code = CREATBED) GLOMERULAR FILTRATION 139 ML/MIN RATE POC (test code = GFRBED) - [facility] VEIN [id number] 15:22:00 Name: EVA HARDEN [facility] : 1970 Age/S: 48 / F [address] [place] [address] Unit #: [id number] Loc: New [id number] Phys: Isis Estrada MD Acct: [id number] Dis Date: [id number] Status: DIS IN PHONE #: [phone] Exam Date: 10/29/2018 1431 FAX #: [phone] Reason: DVT EXAMS: CPT CODE: [id number] DUP VEIN UNI/LTD 11230 PROCEDURE: UNILATERAL UPPER EXTREMITY VENOUS ULTRASOUND INDICATION: 48-year-old female with acute chest pain and elevated d-dimer, right upper extremity pain and edema COMPARISON:None. [...] identified in the right upper extremity. SL: [id number] at 1522 Reported and signed by: Candie Chanel M.D. CC: Isis Estrada MD Technologist: Destiny Rosario RDMS(Naman)(BR) Trnscb Da te/Time: 10/29/2018 (1522) [id number] Orig Print D/T: S: 10/29/2018 (4540)Probe: PAGE 1 Signed [id number] 11:53:00 Test Item Value Reference Range Interpretation Comments GLUBED (test code = 181 MG/DL 70-110 H Performe d by certified GLUBED) clarifier operator at [facility] [id number] 09:07:00 Test Item Value Reference Range Interpretation Comments GLUBED (test code = 83 MG/DL 70-110 N Performe d by certified GLUBED) clarifier operator at [facility] CBC W/AUTO [id number] 08:32:00 Test Item Value Reference Range Interpretation Comments WHITE BLOOD CELL (test code = 4.75 x10 3/uL 4.5-11.0 N WBC) RED BLOOD CELL (test code = 3.91 x10 6/uL 3.54-5.02 N RBC) HEMOGLOBIN (test code = HGB) 11.0 g/dL 11.0-15.0 N HEMATOCRIT (test code = HCT) 35.0 % 33.0-45.0 N MEAN CELL VOLUME (test code = 89.5 fL 81.0-99.0 MCV) MEAN CELL HGB (test code = MCH) 28.1 pg 27.0-33.0 N MEAN CELL HGB CONCETRATION 31.4 g/dL 33.0-37.0 L (test code = MCHC) RED CELL DISTRIBUTION WIDTH CV 13.2 % 11.5-14.5 N (test code = RDW) RED CELL DISTRIBUTION WIDTH SD 43.6 fL 37.0-54.0 N (test code = RDW-SD) PLATELET COUNT (test code = 207 x10 3/uL 150-400 N PLT) MEAN PLATELET VOLUME (test code 11.7 fL 7.0-9.0 H = MPV) NEUTROPHIL % (test code = NT%) 52.7 % 56.0-77.0 L IMMATURE GRANULOCYTE % (test 0.2 % 0.0-2.0 N code = IG%) LYMPHOCYTE % (test code = LY%) 36.4 % 14.0-32.0 H MONOCYTE % (test code = MO%) 6.9 % 4.8-9.0 N EOSINOPHIL % (test code = EO%) 3.4 % 0.3-3.7 N BASOPHIL % (test code = BA%) 0.4 % 0.0-2.0 N NUCLEATED RBC % (test code = 0.0 % 0-0 N NRBC%) NEUTROPHIL # (test code = NT#) 2.50 x10 3/uL 2.0-7.6 N IMMATURE GRANULOCYTE # (test 0.01 x10 3/uL 0.00-0.03 N code = IG#) LYMPHOCYTE # (test code = LY#) 1.73 x10 3/uL 1.0-3.8 N MONOCYTE # (test code = MO#) 0.33 x10 3/uL 0.1-0.8 N EOSINOPHIL # (test code = EO#) 0.16 x10 3/uL 0.0-0.2 N BASOPHIL # (test code = BA#) 0.02 x10 3/uL 0.0-0.2 N NUCLEATED RBC # (test code = 0.00 x10 3/uL 0.0-0.1 N NRBC#) MANUAL DIFF REQUIRED (test code NO = MDIFF) COMPREHENSIVE METABOLIC [id number] 07:51:00 Test Item Value Reference Range Interpretation Comments SODIUM (test code = NA) 142 mEq/L 134-147 N POTASSIUM (test code = 4.0 mEq/L 3.4-5.0 N K) CHLORIDE (test code = 109 mEq/L 100-108 H CL) CARBON DIOXIDE (test 29 mEq/L 21-33 N code = CO2) ANION GAP (test code = 8 0-20 N GAP) GLUCOSE (test code = 79 mg/dL 70-110 N GLU) BLOOD UREA NITROGEN 10 mg/dL 7-18 N (test code = BUN) GLOMERULAR FILTRATION 169.6 95-105 H Units of measure = RATE (test code = GFR) ml/mi n/1.73 m2 CREATININE (test code = 0.4 mg/dL 0.6-1.3 L CREAT) TOTAL PROTEIN (test 6.5 g/dL 6.4-8.2 N code = PROT) ALBUMIN (test code = 3.00 g/dL 3.4-5.0 L ALB) CALCIUM (test code = 8.3 mg/dL 8.0-10.5 N CA) BILIRUBIN TOTAL (test 0.30 mg/dL 0.0-1.0 N code = BILT) SGOT/AST (test code = 33 IUnit/L 15-37 N AST) SGPT/ALT (test code = 53 IUnit/L 15-65 N ALT) ALKALINE PHOSPHATASE 89 IUnit/L 20-125 N TOTAL (test code = ALKP) [id number] 07:51:00 Test Item Value Reference Range Interpretation Comments MAGNESIUM (test code = MAG) 2.00 mg/dL 1.8-2.4 N [id number] 20:41:00 Test Item Value Reference Range Interpretation Comments GLUBED (test code = 91 MG/DL 70-110 N Performe d by certified GLUBED) clarifier operator at [facility] [id number] 19:24:00 Test Item Value Reference Range Interpretation Comments GLUBED (test code = 158 MG/DL 70-110 H Performe d by certified GLUBED) clarifier operator at [facility] [id number] 19:24:00 Test Item Value Reference Range Interpretation Comments GLUBED (test code = 106 MG/DL 70-110 N Performe d by certified GLUBED) clarifier operator at [facility] URINALYSIS [id number] 11:17:00 Test Item Value Reference Range Interpretation Comments UA COLOR (test code = COLU) STRAW YEL/STRAW UA APPEARANCE (test code = APPU) CLEAR CLEAR UA GLUCOSE DIPSTICK (test code = NEGATIVE NEGATIVE DGLUU) UA BILIRUBIN DIPSTICK (test code NEGATIVE NEGATIVE = BILU) UA KETONE DIPSTICK (test code = NEGATIVE NEGATIVE KETU) UA SPECIFIC GRAVITY (test code = 1.003 1.005-1.030 L SGU) UA BLOOD DIPSTICK (test code = NEGATIVE NEGATIVE TIN) UA PH DIPSTICK (test code = ANALILIA) 8.0 5.0-7.0 H UA PROTEIN DIPSTICK (test code = NEGATIVE NEGATIVE PROU) UA UROBILINIOGEN DIPSTICK (test 2.0 mg/dL 0.2-1.0 A code = URO) UA NITRITE DIPSTICK (test code = NEGATIVE NEGATIVE RUSSEL) UA LEUKOCYTE ESTERASE DIPSTICK NEGATIVE NEGATIVE (test code = LEUU) UA WBC (test code = WBCU) 0-3 WBC/HPF 0-3 UA RBC (test code = RBCU) 0-3 RBC/HPF 0-3 UA BACTERIA (test code = BACU) 3+ /HPF NONE SEEN A UA SQUAMOUS CELLS (test code = 0-5 /HPF NONE SEEN SQU) UA CULT [id number] 11:17:00 Test Item Value Reference Range Interpretation Comments UA CULTURE NEEDED? NO, WBC<10 Culture Chk Criteria not met, (test code = Criteria Urine Culture UACULT) cancelled. [id number] 09:11:00 Test Item Value Reference Range Interpretation Comments GLUBED (test code = 85 MG/DL 70-110 N Performe d by certified GLUBED) clarifier operator at [facility] BASIC METABOLIC [id number] 08:13:00 Test Item Value Reference Range Interpretation Comments SODIUM (test code = NA) 142 mEq/L 134-147 N POTASSIUM (test code = 3.6 mEq/L 3.4-5.0 N K) CHLORIDE (test code = 107 mEq/L 100-108 N CL) CARBON DIOXIDE (test 29 mEq/L 21-33 N code = CO2) ANION GAP (test code = 10 0-20 N GAP) GLUCOSE (test code = 83 mg/dL 70-110 N GLU) BLOOD UREA NITROGEN 8 mg/dL 7-18 N (test code = BUN) GLOMERULAR FILTRATION 169.6 95-105 H Units of measure = RATE (test code = GFR) ml/mi n/1.73 m2 CREATININE (test code = 0.4 mg/dL 0.6-1.3 L CREAT) CALCIUM (test code = 8.9 mg/dL 8.0-10.5 N CA) [id number] 08:13:00 Test Item Value Reference Range Interpretation Comments MAGNESIUM (test code = MAG) 2.10 mg/dL 1.8-2.4 N CBC W/AUTO [id number] 07:40:00 Test Item Value Reference Range Interpretation Comments WHITE BLOOD CELL (test code = 6.49 x10 3/uL 4.5-11.0 WBC) RED BLOOD CELL (test code = 4.31 x10 6/uL 3.54-5.02 N RBC) HEMOGLOBIN (test code = HGB) 12.2 g/dL 11.0-15.0 N HEMATOCRIT (test code = HCT) 37.4 % 33.0-45.0 N MEAN CELL VOLUME (test code = 86.8 fL 81.0-99.0 MCV) MEAN CELL HGB (test code = MCH) 28.3 pg 27.0-33.0 N MEAN CELL HGB CONCETRATION 32.6 g/dL 33.0-37.0 L (test code = MCHC) RED CELL DISTRIBUTION WIDTH CV 13.0 % 11.5-14.5 N (test code = RDW) RED CELL DISTRIBUTION WIDTH SD 40.6 fL 37.0-54.0 N (test code = RDW-SD) PLATELET COUNT (test code = 217 x10 3/uL 150-400 N PLT) MEAN PLATELET VOLUME (test code 12.1 fL 7.0-9.0 H = MPV) NEUTROPHIL % (test code = NT%) 65.4 % 56.0-77.0 N IMMATURE GRANULOCYTE % (test 0.2 % 0.0-2.0 N code = IG%) LYMPHOCYTE % (test code = LY%) 26.7 % 14.0-32.0 N MONOCYTE % (test code = MO%) 6.3 % 4.8-9.0 N EOSINOPHIL % (test code = EO%) 0.9 % 0.3-3.7 N BASOPHIL % (test code = BA%) 0.5 % 0.0-2.0 N NUCLEATED RBC % (test code = 0.0 % 0-0 N NRBC%) NEUTROPHIL # (test code = NT#) 4.25 x10 3/uL 2.0-7.6 N IMMATURE GRANULOCYTE # (test 0.01 x10 3/uL 0.00-0.03 N code = IG#) LYMPHOCYTE # (test code = LY#) 1.73 x10 3/uL 1.0-3.8 N MONOCYTE # (test code = MO#) 0.41 x10 3/uL 0.1-0.8 N EOSINOPHIL # (test code = EO#) 0.06 x10 3/uL 0.0-0.2 N BASOPHIL # (test code = BA#) 0.03 x10 3/uL 0.0-0.2 N NUCLEATED RBC # (test code = 0.00 x10 3/uL 0.0-0.1 N NRBC#) MANUAL DIFF REQUIRED (test code NO = MDIFF) [id number] 23:54:00 Test Item Value Reference Range Interpretation Comments GLUBED (test code = 243 MG/DL 70-110 H Performe d by certified GLUBED) clarifier operator at [facility] PROTHROMBIN [id number] 07:45:00 Test Item Value Reference Range Interpretation Comments PROTHROMBIN TIME 13.4 SECONDS 9.3-12.9 H PATIENT (test code = PTP) INTERNATIONAL NORMAL 1.2 0.8-1.2 N TARGET RATIO (test code = INR BY IN DICATION INR) Indication INR1. Prophyl axis of venous thrombos is 2.0 - 3. 0 (orthopedic james lorraine), Prophylaxis of venous thrombos is (other than hig h-risk surgery), Madelin tment of Deep Vein Thrombosis/Pulm onary Embolism, Preve ntion of systemic emb olism - Tissue heart va lves, Acute Myocardia l Infarction (to prevent systemic embo lism), Valvular heart disease, Atri al Fibrillation, Bileaflet mecha nical valve in aortic position.2. Mec hanical prosthetic valv es (high risk), 2.5 - 3.5 Presence of Lupus Anticoagu lant or Antiphospholi pid Antibodies, Pre vention of systemic e mbolism - Acute Myocard ial Infarction (t o prevent recurre nt infarct). THROMBOPLASTIN TIME [id number] 07:45:00 Test Item Value Reference Range Interpretation Comments THROMBOPLASTIN TIME 37.6 Seconds 25.0-39.5 N Ther apeutic PARTIAL (test code = Range: 61.8-83.8 PTT) Sec Effective 10/06/2013 BASIC METABOLIC [id number] 07:34:00 Test Item Value Reference Range Interpretation Comments SODIUM (test code = NA) 142 mEq/L 134-147 N POTASSIUM (test code = 3.7 mEq/L 3.4-5.0 N K) CHLORIDE (test code = 109 mEq/L 100-108 H CL) CARBON DIOXIDE (test 28 mEq/L 21-33 N code = CO2) ANION GAP (test code = 9 0-20 N GAP) GLUCOSE (test code = 73 mg/dL 70-110 N GLU) BLOOD UREA NITROGEN 10 mg/dL 7-18 N (test code = BUN) GLOMERULAR FILTRATION 236.4 95-105 H Units of measure = RATE (test code = GFR) ml/mi n/1.73 m2 CREATININE (test code = 0.3 mg/dL 0.6-1.3 L CREAT) CALCIUM (test code = 8.0 mg/dL 8.0-10.5 N CA) COMMENTS: To be done morning of Heart CathCBC W/AUTO [id number] 07:31:00 Test Item Value Reference Range Interpretation Comments WHITE BLOOD CELL (test code = 4.38 x10 3/uL 4.5-11.0 L WBC) RED BLOOD CELL (test code = 3.90 x10 6/uL 3.54-5.02 N RBC) HEMOGLOBIN (test code = HGB) 11.0 g/dL 11.0-15.0 N HEMATOCRIT (test code = HCT) 35.0 % 33.0-45.0 N MEAN CELL VOLUME (test code = 89.7 fL 81.0-99.0 N MCV) MEAN CELL HGB (test code = MCH) 28.2 pg 27.0-33.0 N MEAN CELL HGB CONCETRATION 31.4 g/dL 33.0-37.0 L (test code = MCHC) RED CELL DISTRIBUTION WIDTH CV 13.3 % 11.5-14.5 N (test code = RDW) RED CELL DISTRIBUTION WIDTH SD 43.3 fL 37.0-54.0 N (test code = RDW-SD) PLATELET COUNT (test code = 197 x10 3/uL 150-400 N PLT) MEAN PLATELET VOLUME (test code 11.7 fL 7.0-9.0 H = MPV) NEUTROPHIL % (test code = NT%) 51.8 % 56.0-77.0 L IMMATURE GRANULOCYTE % (test 0.2 % 0.0-2.0 N code = IG%) LYMPHOCYTE % (test code = LY%) 37.0 % 14.0-32.0 H MONOCYTE % (test code = MO%) 6.4 % 4.8-9.0 N EOSINOPHIL % (test code = EO%) 3.9 % 0.3-3.7 H BASOPHIL % (test code = BA%) 0.7 % 0.0-2.0 N NUCLEATED RBC % (test code = 0.0 % 0-0 N NRBC%) NEUTROPHIL # (test code = NT#) 2.27 x10 3/uL 2.0-7.6 N IMMATURE GRANULOCYTE # (test 0.01 x10 3/uL 0.00-0.03 N code = IG#) LYMPHOCYTE # (test code = LY#) 1.62 x10 3/uL 1.0-3.8 N MONOCYTE # (test code = MO#) 0.28 x10 3/uL 0.1-0.8 N EOSINOPHIL # (test code = EO#) 0.17 x10 3/uL 0.0-0.2 N BASOPHIL # (test code = BA#) 0.03 x10 3/uL 0.0-0.2 N NUCLEATED RBC # (test code = 0.00 x10 3/uL 0.0-0.1 N NRBC#) MANUAL DIFF REQUIRED (test code NO = MDIFF) COMMENTS: To be done morning of Heart [id number] 07:23:00 Test Item Value Reference Range Interpretation Comments GLUBED (test code = 73 MG/DL 70-110 N Performe d by certified GLUBED) clarifier operator at [facility] [id number] 21:06:00 Test Item Value Reference Range Interpretation Comments GLUBED (test code = 145 MG/DL 70-110 H Performe d by certified GLUBED) clarifier operator at [facility] [id number] 17:23:00 Test Item Value Reference Range Interpretation Comments GLUBED (test code = 82 MG/DL 70-110 N Performe d by certified GLUBED) clarifier operator at [facility] - XR UGI W/O [id number] 17:17:00 FAX: Keaton Campbell MD [phone] [place]: St: ADM FAX: Scooby Wyman MD [phone] Name: EVA HARDEN [facility] : 1970 Age/S: 48/F [address] [place] [address] Unit #: [id number] Loc: G.05 [place] [address] Phys: Keaton Campbell MD Acct: [id number] Dis Date: Status: ADM IN PHONE #: [phone] Exam Date: 10/26/2018 1650 FAX #: [phone] Reason: hx of gastric bypass at another institution. C/ EXAMS: CPT CODE: [id number] XR UGI W/O [id number] ESOPHAGRAM AND UPPER GI: HISTORY: History of [...] the gastroesophageal junction and promptly into a normal-appearing jejunal loop. No evidence of obstruction to [...] with the patient by Dr. Gomez on 10/26/2018. SL:01 PAGE 1 Signed Report (CONTINUED) FAX: Keaton Campbell MD [phone] [place]: St: [facility] FAX: Scooby Wyman MD [phone] Name: EVA HARDEN [facility] : 1970 Age/S: 48/F [address] [place] [address] Unit #: [id number] Loc: [address] [address] Phys: Keaton Campbell MD Acct: [id number] Dis Date: Status: ADM IN PHONE #: [phone] Exam Date: 10/26/2018 1650 FAX#: [phone] Reason: hx of gastric bypass at another institution. C/ EXAMS: CPT CODE: [id number] XR UGI W/O KUB 08621 <Continued> at 1717 Reported andsigned by: Fidel Gomez M.D. CC: Keaton Campbell MD; Scooby Durant MD Technologist: RT Alpesh(Keyanna) Trnscrd Date/Time/By: 10/26/2018 (2386) : By: [email or web address] Orig Print D/T: S: 10/26/2018 (8595) PAGE 2 Signed [id number] 15:16:00 Test Item Value Reference Range Interpretation Comments CREATININE (test code = CREAT) 0.7 mg/dL 0.6-1.3 [id number] 11:25:00 Test Item Value Reference Range Interpretation Comments GLUBED (test code = 87 MG/DL 70-110 N Performe d by certified GLUBED) clarifier operator at [facility] BASIC METABOLIC [id number] 08:13:00 Test Item Value Reference Range Interpretation Comments SODIUM (test code = NA) 140 mEq/L 134-147 N POTASSIUM (test code = 4.0 mEq/L 3.4-5.0 K) CHLORIDE (test code = 110 mEq/L 100-108 H CL) CARBON DIOXIDE (test 26 mEq/L 21-33 N code = CO2) ANION GAP (test code = 8 0-20 N GAP) GLUCOSE (test code = 81 mg/dL 70-110 N GLU) BLOOD UREA NITROGEN 10 mg/dL 7-18 N (test code = BUN) GLOMERULAR FILTRATION 131.1 95-105 H Units of measure = RATE (test code = GFR) ml/mi n/1.73 m2 CREATININE (test code = 0.5 mg/dL 0.6-1.3 L CREAT) CALCIUM (test code = 8.7 mg/dL 8.0-10.5 N CA) [id number] 08:08:00 Test Item Value Reference Range Interpretation Comments GLUBED (test code = 82 MG/DL 70-110 N Performe d by certified GLUBED) clarifier operator at [facility] CBC W/AUTO [id number] 07:50:00 Test Item Value Reference Range Interpretation Comments WHITE BLOOD CELL (test code = 4.97 x10 3/uL 4.5-11.0 N WBC) RED BLOOD CELL (test code = 4.33 x10 6/uL 3.54-5.02 N RBC) HEMOGLOBIN (test code = HGB) 12.4 g/dL 11.0-15.0 N HEMATOCRIT (test code = HCT) 39.1 % 33.0-45.0 N MEAN CELL VOLUME (test code = 90.3 fL 81.0-99.0 N MCV) MEAN CELL HGB (test code = MCH) 28.6 pg 27.0-33.0 N MEAN CELL HGB CONCETRATION 31.7 g/dL 33.0-37.0 L (test code = MCHC) RED CELL DISTRIBUTION WIDTH CV 13.5 % 11.5-14.5 N (test code = RDW) RED CELL DISTRIBUTION WIDTH SD 44.6 fL 37.0-54.0 N (test code = RDW-SD) PLATELET COUNT (test code = 190 x10 3/uL 150-400 N PLT) MEAN PLATELET VOLUME (test code 11.2 fL 7.0-9.0 H = MPV) NEUTROPHIL % (test code = NT%) 47.9 % 56.0-77.0 L IMMATURE GRANULOCYTE % (test 0.2 % 0.0-2.0 N code = IG%) LYMPHOCYTE % (test code = LY%) 42.1 % 14.0-32.0 H MONOCYTE % (test code = MO%) 6.2 % 4.8-9.0 N EOSINOPHIL % (test code = EO%) 3.0 % 0.3-3.7 N BASOPHIL % (test code = BA%) 0.6 % 0.0-2.0 N NUCLEATED RBC % (test code = 0.0 % 0-0 N NRBC%) NEUTROPHIL # (test code = NT#) 2.38 x10 3/uL 2.0-7.6 N IMMATURE GRANULOCYTE # (test 0.01 x10 3/uL 0.00-0.03 N code = IG#) LYMPHOCYTE # (test code = LY#) 2.09 x10 3/uL 1.0-3.8 N MONOCYTE # (test code = MO#) 0.31 x10 3/uL 0.1-0.8 N EOSINOPHIL # (test code = EO#) 0.15 x10 3/uL 0.0-0.2 N BASOPHIL # (test code = BA#) 0.03 x10 3/uL 0.0-0.2 N NUCLEATED RBC # (test code = 0.00 x10 3/uL 0.0-0.1 N NRBC#) MANUAL DIFF REQUIRED (test code NO = MDIFF) [id number] 20:42:00 Test Item Value Reference Range Interpretation Comments GLUBED (test code = 97 MG/DL 70-110 N Performe d by certified GLUBED) clar[facility] [facility] [id number] 16:18:00 Test Item Value Reference Range Interpretation Comments GLUBED (test code = 94 MG/DL 70-110 N Performe d by certified GLUBED) clarifier operator at [facility] - PULM VENT PERF [id number] 15:28:00 FAX: Scooby Wyman MD [phone] [place]: St: ADM FAX: Chris Galindo MD [phone] Name: EVA HARDEN [facility] : 1970 Age/S: 48/F [address] [place] [address] Unit #: [id number] Loc: G.M105 [place] [address] Phys: Chris Ny MD Acct: [id number] Dis Date: Status: ADM IN PHONE #: [phone] Exam Date: 10/25/2018 1516 FAX #: [phone] Reason: CP, HIGH D-DIMER, R/O PE EXAMS: CPT CODE: [id number] PULM VENT PERF IMAG [id number] NUCLEAR MEDICINE VENTILATION/PERFUSION LUNG SCAN HISTORY: Chest [...] By: Jannet Orig Print D/T: S: 10/25/2018 (153) PAGE 1 Signed ReportGLUBED 2018-10-25 14:32:00 Test Item Value Reference Range Interpretation Comments GLUBED (test code = 107 MG/DL 70-110 N Performe d by certified GLUBED) clarifier operator at [facility] [id number] 09:53:00 Test Item Value Reference Range Interpretation Comments GLUBED (test code = 108 MG/DL 70-110 N Performe d by certified GLUBED) clarifier operator at [facility] BASIC METABOLIC [id number] 09:07:00 Test Item Value Reference Range Interpretation Comments SODIUM (test code = NA) 142 mEq/L 134-147 N POTASSIUM (test code = 3.3 mEq/L 3.4-5.0 L K) CHLORIDE (test code = 110 mEq/L 100-108 H CL) CARBON DIOXIDE (test 27 mEq/L 21-33 N code = CO2) ANION GAP (test code = 8 0-20 N GAP) GLUCOSE (test code = 79 mg/dL 70-110 N GLU) BLOOD UREA NITROGEN 11 mg/dL 7-18 N (test code = BUN) GLOMERULAR FILTRATION 169.6 95-105 H Units of measure = RATE (test code = GFR) ml/mi n/1.73 m2 CREATININE (test code = 0.4 mg/dL 0.6-1.3 L CREAT) CALCIUM (test code = 8.1 mg/dL 8.0-10.5 N CA) 10/25/18629COMMENTS: 3 troponins total (including troponin done in ED)THYROID STIMULATING [id number] 09:07:00 Test Item Value Reference Range Interpretation Comments THYROID STIMULATING 2.30 0.42-5.47 N Results in HORMONE (test code = TSH) mi lli-International Units/mL 10/25/18629COMMENTS: 3 troponins total (including troponin done in ED) [id number] 09:07:00 Test Item Value Reference Range Interpretation Comments TROPONIN-I < 0.015 ng/mL 0.000-0.045 N Negative: <= (test code = 0.045 Positive: TROPI) >= 0.046 Correl ation with serial results, other cardiac markers andclinical findings is nec essary to determine the clinicalsignifi cance of this result. Results using different metho dologies should not be c omparedto one another as arline titative results may jesús y by method. 10/25/18629COMMENTS: 3 troponins total (including troponin done in ED)- CT CHEST W/O [id number] 09:04:00 Name: EVA HARDEN [facility] : 1970 Age/S: 48 / F [address] [place] [address] Unit #: [id number] Loc: New [id number] Phys: Scooby Durant MD Acct: [id number] Dis Date: Status: ADM IN PHONE #: [phone] Exam Date: 10/25/2018 0830 FAX #: [phone] Reason: pleurisy EXAMS: CPTCODE: [id number] CT CHEST W/O CONTRAST 44083 PROCEDURE: CT CHEST WITHOUT CONTRAST INDICATION: Chest pain, elevated d-dimer COMPARISON: 10/21/17. TECHNIQUE: Noncontrasted helical imaging performed apices through the lung bases with multiplanar reconstructions. CT imaging performed at this location utilizes radiation dose optimization techniques which include one or more of the following: -Automated exposure control -Adjustment of the mA and/or [...] Malachi Pham M.D. PAGE 1 Signed Report (CONTINUED) Name: EVA HARDEN : 1970 Age/S: 48 / F [address] [place] [address] Unit #: [id number] Loc: IGGY Wolff [address] Phys: Scooby Durant MD Acct: [id number] Dis Date: Status: ADM IN PHONE #: [phone] Exam Date: 10/25/2018829 FAX #: [phone]: pleurisy EXAMS: CPT CODE: [id number] CT CHEST W/O CONTRAST 96925 <Continued> CC: Scooby Durant MD Technologist:Leonie Azar, RT(R)(CT) CTDI: DLP: Trnscb Date/Time: 10/25/2018 (903) tIsrael RAGSDALE Orig Print D/T: S: 10/25/2018 (906) CTDI: DLP: PAGE 2 Signed [id number] 08:45:00 Test Item Value Reference Range Interpretation Comments HGBA1C% (test code = HGBA1C%) 5.5 %A1C 4.8-6.0 N - DUP VEIN [id number] 08:40:00 Name: EVA HARDEN : 1970 Age/S: 48 / F [address] [place] [address] Unit #: [id number] Loc: IGGY [id number] Phys: Scooby Durant MD Acct: [id number] Dis Date: Status: ADM IN PHONE #: [phone] Exam Date: 10/25/2018 08 FAX #: [phone] Reason: elevated ddimer EXAMS: CPTCODE: [id number] DUP VEIN RASHID 88499 PROCEDURE: BILATERAL LOWER EXTREMITY VENOUS ULTRASOUND INDICATION: Chest pain, elevated d-dimer COMPARISON: None. TECHNIQUE: Sonographic evaluation of the bilateral lower extremity veins was performed using high resolution B-mode, pulse and color Doppler imaging. FINDINGS: RIGHT: The common femoral, femoral, popliteal [...] Michelle Silverman RDMS(A) Trnscb Date/Time: 10/25/2018 (0840) Jannet Orig Print D/T: S: 10/25/2018 (0843) Probe: PAGE 1 Signed ReportCBC W/AUTO [id number] 08:21:00 Test Item Value Reference Range Interpretation Comments WHITE BLOOD CELL (test code = 5.81 x10 3/uL 4.5-11.0 N WBC) RED BLOOD CELL (test code = 3.77 x10 6/uL 3.54-5.02 N RBC) HEMOGLOBIN (test code = HGB) 10.8 g/dL 11.0-15.0 L HEMATOCRIT (test code = HCT) 34.0 % 33.0-45.0 N MEAN CELL VOLUME (test code = 90.2 fL 81.0-99.0 MCV) MEAN CELL HGB (test code = MCH) 28.6 pg 27.0-33.0 N MEAN CELL HGB CONCETRATION 31.8 g/dL 33.0-37.0 L (test code = MCHC) RED CELL DISTRIBUTION WIDTH CV 14.6 % 11.5-14.5 H (test code = RDW) RED CELL DISTRIBUTION WIDTH SD 44.8 fL 37.0-54.0 N (test code = RDW-SD) PLATELET COUNT (test code = 164 x10 3/uL 150-400 N PLT) MEAN PLATELET VOLUME (test code 12.4 fL 7.0-9.0 H = MPV) NEUTROPHIL % (test code = NT%) 58.2 % 56.0-77.0 N IMMATURE GRANULOCYTE % (test 0.2 % 0.0-2.0 N code = IG%) LYMPHOCYTE % (test code = LY%) 31.8 % 14.0-32.0 N MONOCYTE % (test code = MO%) 6.7 % 4.8-9.0 N EOSINOPHIL % (test code = EO%) 2.8 % 0.3-3.7 N BASOPHIL % (test code = BA%) 0.3 % 0.0-2.0 N NUCLEATED RBC % (test code = 0.0 % 0-0 N NRBC%) NEUTROPHIL # (test code = NT#) 3.38 x10 3/uL 2.0-7.6 N IMMATURE GRANULOCYTE # (test 0.01 x10 3/uL 0.00-0.03 N code = IG#) LYMPHOCYTE # (test code = LY#) 1.85 x10 3/uL 1.0-3.8 N MONOCYTE # (test code = MO#) 0.39 x10 3/uL 0.1-0.8 N EOSINOPHIL # (test code = EO#) 0.16 x10 3/uL 0.0-0.2 N BASOPHIL # (test code = BA#) 0.02 x10 3/uL 0.0-0.2 N NUCLEATED RBC # (test code = 0.00 x10 3/uL 0.0-0.1 N NRBC#) MANUAL DIFF REQUIRED (test code NO = MDIFF) [id number] 03:19:00 Test Item Value Reference Range Interpretation Comments TROPONIN-I < 0.015 ng/mL 0.000-0.045 N Negative: <= (test code = 0.045 Positive: TROPI) >= 0.046 Correl ation with serial results, other cardiac markers andclinical findings is nec essary to determine the clinicalsignifi cance of this result. Results using different metho dologies should not be c omparedto one another as arline titative results may jesús y by method. COMMENTS: 3 troponins total (including troponin done in ED)B-TYPE NATRIURETIC [id number] 00:32:00 Test Item Value Reference Range Interpretation Comments B-TYPE NATRIURETIC PEPTIDE (test 20.4 PG/ML 0-100 N code = BNP) - XR CHEST 1 [id number] 00:18:00 FAX: Pam Weinstein DO [phone] [place]: St: REG Name: EVA HARDEN [facility] : 1970 Age/S: 48/F [address] [place] [address] Unit#: [id number] Loc: [place] [address] Phys: Pam Benitez DO Acct: [id number] Dis Date: Status: REG ER PHONE #: [phone] Exam Date: 10/24/2018 2355 FAX #: [phone] Reason: Chest Pain EXAMS: CPT CODE: [id number] XR CHEST 1 V 55604 EXAM: CR, XR chest one view: 10/24/2018 HISTORY:Chest Pain TECHNIQUE: 1 view of the chest. COMPARISON: 10/21/2017 FINDINGS: Trachea is midline. Heart is normal in size. Pulmonary vascularity isunremarkable. There is no airspace consolidation, pleural effusion or pneumothorax. No significant osseous abnormalities are seen. IMPRESSION: No acute cardiopulmonary disease seen. SL: [JSYED-H] at 0018 Reported and signed by: Chace Marquez M.D. CC: Pam Benitez DO Technologist: Bi Cao, RT(R); Oral Mendiola [facility] Date/Time/By: 10/25/2018 (0018) : By: [email or web address] Orig Print D/T: S:10/25/2018 (0022) PAGE 1 Signed ReportBASIC METABOLIC [id number] 00:11:00 Test Item Value Reference Range Interpretation Comments SODIUM (test code = NA) 142 mEq/L 134-147 N POTASSIUM (test code = 3.4 mEq/L 3.4-5.0 N K) CHLORIDE (test code = 108 mEq/L 100-108 N CL) CARBON DIOXIDE (test 31 mEq/L 21-33 N code = CO2) ANION GAP (test code = 6 0-20 N GAP) GLUCOSE (test code = 86 mg/dL 70-110 N GLU) BLOOD UREA NITROGEN 13 mg/dL 7-18 N (test code = BUN) GLOMERULAR FILTRATION 131.1 95-105 H Units of measure = RATE (test code = GFR) ml/mi n/1.73 m2 CREATININE (test code = 0.5 mg/dL 0.6-1.3 L CREAT) CALCIUM (test code = 8.3 mg/dL 8.0-10.5 N CA) HEPATIC FUNCTION [id number] 00:11:00 Test Item Value Reference Range Interpretation Comments TOTAL PROTEIN (test code = PROT) 7.4 g/dL 6.4-8.2 N ALBUMIN (test code = ALB) 3.60 g/dL 3.4-5.0 N BILIRUBIN TOTAL (test code = 0.20 mg/dL 0.0-1.0 N BILT) BILIRUBIN DIRECT (test code = < 0.10 MG/DL 0.0-0.30 N BILD) BILIRUBIN INDIRECT (test code = 0.10 MG/DL BILIND) SGOT/AST (test code = AST) 14 IUnit/L 15-37 L SGPT/ALT (test code = ALT) 31 IUnit/L 15-65 N ALKALINE PHOSPHATASE TOTAL (test 102 IUnit/L 20-125 N code = ALKP) PROTHROMBIN [id number] 23:57:00 Test Item Value Reference Range Interpretation Comments PROTHROMBIN TIME 12.4 SECONDS 9.3-12.9 N PATIENT (test code = PTP) INTERNATIONAL NORMAL 1.1 0.8-1.2 N TARGET RATIO (test code = INR BY IN DICATION INR) Indication INR1. Prophyl axis of venous thrombos is 2.0 - 3. 0 (orthopedic james lorraine), Prophylaxis of venous thrombos is (other than hig h-risk surgery), Madelin tment of Deep Vein Thrombosis/Pulm onary Embolism, Preve ntion of systemic emb olism - Tissue heart va lves, Acute Myocardia l Infarction (to prevent systemic embo lism), Valvular heart disease, Atri al Fibrillation, Bileaflet mecha nical valve in aortic position.2. Mec hanical prosthetic valv es (high risk), 2.5 - 3.5 Presence of Lupus Anticoagu lant or Antiphospholi pid Antibodies, Pre vention of systemic e mbolism - Acute Myocard ial Infarction (t o prevent recurre nt infarct). [id number] 23:57:00 Test Item Value Reference Range Interpretation Comments D-DIMER (test 1162 ng/mlFEU <=500 HH THROMBOSIS A ND/OR code = PULMONARY EMBOL ISM AND THE DDIMER) CLINICAL CUT- O FF VALUE FOR EXCLUSION (500 ng/mL FEU) OF THESE CONDIT IONSIS VALIDATED BY TH E SECONDARY SET UP MAN OF THE METHOD. A NEGATIVE D-DI ROBERTO RESULT WHEN COMBINED W ITH A CLINICALASSESSM ENT OF LOW PRETEST PROBABI LITY HAS BEEN SHOWN TO H AVEA HIGH NEGATIVE PREDIC TIVE VALUE OF DVT OR PE. D -DIMER VALUES >500 ng/ mL FEU ARE NOT DIAGNOSTIC FOR DVT, PEor DIC WITHOU T OTHER CONFIRMATORY TE STS AND APPROPRIATECLIN ICAL EUALUATIONS. CBC W/AUTO [id number] 23:50:00 Test Item Value Reference Range Interpretation Comments WHITE BLOOD CELL (test code = 6.39 x10 3/uL 4.5-11.0 N WBC) RED BLOOD CELL (test code = 4.29 x10 6/uL 3.54-5.02 N RBC) HEMOGLOBIN (test code = HGB) 12.1 g/dL 11.0-15.0 N HEMATOCRIT (test code = HCT) 37.0 % 33.0-45.0 N MEAN CELL VOLUME (test code = 86.2 fL 81.0-99.0 N MCV) MEAN CELL HGB (test code = MCH) 28.2 pg 27.0-33.0 N MEAN CELL HGB CONCETRATION 32.7 g/dL 33.0-37.0 L (test code = MCHC) RED CELL DISTRIBUTION WIDTH CV 13.2 % 11.5-14.5 N (test code = RDW) RED CELL DISTRIBUTION WIDTH SD 41.1 fL 37.0-54.0 N (test code = RDW-SD) PLATELET COUNT (test code = 244 x10 3/uL 150-400 N PLT) MEAN PLATELET VOLUME (test code 10.8 fL 7.0-9.0 H = MPV) NEUTROPHIL % (test code = NT%) 62.3 % 56.0-77.0 N IMMATURE GRANULOCYTE % (test 0.2 % 0.0-2.0 N code = IG%) LYMPHOCYTE % (test code = LY%) 27.9 % 14.0-32.0 N MONOCYTE % (test code = MO%) 6.1 % 4.8-9.0 N EOSINOPHIL % (test code = EO%) 3.0 % 0.3-3.7 N BASOPHIL % (test code = BA%) 0.5 % 0.0-2.0 N NUCLEATED RBC % (test code = 0.0 % 0-0 N NRBC%) NEUTROPHIL # (test code = NT#) 3.99 x10 3/uL 2.0-7.6 N IMMATURE GRANULOCYTE # (test 0.01 x10 3/uL 0.00-0.03 N code = IG#) LYMPHOCYTE # (test code = LY#) 1.78 x10 3/uL 1.0-3.8 N MONOCYTE # (test code = MO#) 0.39 x10 3/uL 0.1-0.8 N EOSINOPHIL # (test code = EO#) 0.19 x10 3/uL 0.0-0.2 N BASOPHIL # (test code = BA#) 0.03 x10 3/uL 0.0-0.2 N NUCLEATED RBC # (test code = 0.00 x10 3/uL 0.0-0.1 N NRBC#) MANUAL DIFF REQUIRED (test code NO = MDIFF) CT Abdomen and Pelvis w/o [id number] 23:22:30Patient: EVA HARDEN Date/Time05/16/201823:06 CDTReason for ExamAbdominal painReportCT Abdomen and Pelvis w/o ContrastLOCATION: [id number]: Abdominal painCOMPARISON: CT of the abdomen and [...] 11:18 pmSigned by: MD Valdez Alfred ESigned (Electronic Signature): 05/16/201811:22 [id number] 01:00:00 Test Item Value Reference Range Interpretation Comments Lipase (test code = LIP) 28 U/L 13-60 N Comprehensive Metabolic [id number] 01:00:00 Test Item Value Reference Range Interpretation Comments Sodium (test code = 141 mmol/L 135-145 N NA) Potassium (test 4.2 mmol/L 3.5-5.1 N code = K) Chloride (test code 101 mmol/L 98-105 N = CL) Carbon Dioxide 23 mmol/L 22-29 N (test code = CO2) Glucose (test code 113 mg/dL 70-115 N = GLU) Blood Urea Nitrogen 8 mg/dL 6-20 N (test code = BUN) Creatinine (test 0.6 mg/dL 0.5-0.9 N code = CREAT) Calcium (test code 9.3 mg/dL 8.3-10.5 N = CA) Prot Total (test 7.2 g/dL 6.4-8.3 N code = TP) Albumin (test code 4.5 g/dL 3.5-5.2 N = ALB) A/G Ratio (test 1.7 Ratio code = AGRATIO) Globulin (test code 2.7 2.9-3.1 L = GLOB) Bili Total (test 0.3 mg/dL 0.1-0.9 N code = TBIL) Alk Phos (test code 93 U/L 35-104 N = APHOS) AST (test code = 42 U/L 1-32 H AST) ALT (test code = 77 U/L 1-33 H ALT) BUN/Creatinine 13.3 Ratio (test code = BCRATIO) Anion Gap (test 17 mmol/L 7-16 H code = AGAP) Estimated GFR (test >60 eGFR (es timated code = GFR) mL/min/1.73m2 Glomerular Eliazar tration Rate) is an est imated value,calculate d from the patient's s jesse creatinine usin g the MDRD equation.I t is NOT the patient 's actual GFR. The eGFR provides a more clinicallyusefu l measure of kidn ey disease than se rum creatinine alone.This calculation prateek es sex and race into account, if the informationis provided. If th e race is not provided , and the patient isAfrican-Ameri can, multiply by 1.2 12. If sex is not prov ided, and thepatient is female, multipl y by 0.742. Results for patients <18 ye ars ofage have not been validated by th e MDRD study and rosauraul d be interpretedwith caution.eGFR Re sult Interpretation: eGFR > or = 60 is in t he Normal RangeeGF R < 60 may mean kidney diseaseeGFR < 1 5 may mean kidney failureRange s recommended by the National Kidney Foundation,http ://nkd ep.nih.gov BHCG, Urine, [id number] 00:45:00 Test Item Value Reference Range Interpretation Comments Preg Qual [Ur] (test code = HUHCG) Negative Negative N CBC with [id number] 00:44:00 Test Item Value Reference Range Interpretation Comments WBC (test code = WBC) 7.5 K/cumm 4.4-10.5 N RBC (test code = RBC) 4.94 M/cumm 3.75-5.20 N Hemoglobin (test code = HGB) 13.0 gm/dL 12.2-14.8 N Hematocrit (test code = HCT) 39.3 % 36.5-44.4 N MCV (test code = MCV) 79.5 fL 80-100 L MCH (test code = MCH) 26.3 pg 27.0-32.5 L MCHC (test code = MCHC) 33.0 g/dL 32.0-37.5 N RDW (test code = RDW) 15.9 % 11.5-14.5 H Platelet Count (test code = 319 K/cumm 140-440 N PLTCT) MPV (test code = MPV) 7.4 fL Diff Method (test code = DIFFM) Auto Neutrophil (test code = NEUT) 54.4 % 36-70 N Lymphocyte (test code = LYMPH) 34.7 % 12-44 N Monocyte (test code = MONO) 5.2 % 0-11 N Eosinophil (test code = EOS) 5.1 % 0-7 N Basophil (test code = BASO) 0.7 % 0-2 N Neutro Abs (test code = ANEUT) 4.1 K/cumm 1.6-7.4 N Lymph Abs (test code = ALYMPH) 2.6 K/cumm 0.5-4.6 N [place] Abs (test code = AMONO) 0.4 K/cumm 0.0-1.2 N Eos Abs (test code = AEOS) 0.38 K/cumm 0.00-0.74 N Baso Abs (test code = ABASO) 0.1 K/cumm 0.00-0.21 N Urinalysis [id number] 00:32:00 Test Item Value Reference Range Interpretation Comments Color (test code = COLOR) Yellow Yellow,Straw,Pl N yellow Clarity (test code = Sl Cloudy Clear A CLAR) Specific [place] (test 1.016 1.001-1.035 N code = SPGR) pH (test code = PH) 8.0 5.0-9.0 N Ketone (test code = KET) 5 mg/dL Negative A Glucose (test code = Negative mg/dL Negative N GLUCUR) Protein (test code = Negative mg/dL Negative N PROT) Bilirubin (test code = Negative mg/dL Negative N BILI) Occult Blood (test code = Negative Negative N UDOB) Urobilinogen (test code = 0.2 mg/dL 0.2-1.0 N UROB) Nitrite (test code = NIT) Positive Negative A Leuk Esterase (test code Negative Negative N = LEUK) Micros Exam (test code = Indicated MEXAM) Epithelial Cells (test 20-29 /LPF 0-30 A code = EPI) WBC, Urine (test code = 0-1 /HPF 0-5 A UWBC) RBC, Urine (test code = None Seen /HPF 0-5 A URBC) Bacteria (test code = Many /HPF BACT) [id number] 17:42:00 Test Item Value Reference Range Interpretation Comments Lipase (test code = LIP) 28 U/L 13-60 N Comprehensive Metabolic [id number] 17:42:00 Test Item Value Reference Range Interpretation Comments Sodium (test code = 143 mmol/L 135-145 N NA) Potassium (test 3.7 mmol/L 3.5-5.1 N code = K) Chloride (test code 103 mmol/L 98-105 N = CL) Carbon Dioxide 27 mmol/L 22-29 N (test code = CO2) Glucose (test code 123 mg/dL 70-115 H = GLU) Blood Urea Nitrogen 10 mg/dL 6-20 N (test code = BUN) Creatinine (test 0.6 mg/dL 0.5-0.9 N code = CREAT) Calcium (test code 9.3 mg/dL 8.3-10.5 N = CA) Prot Total (test 6.9 g/dL 6.4-8.3 N code = TP) Albumin (test code 4.3 g/dL 3.5-5.2 N = ALB) A/G Ratio (test 1.7 Ratio code = AGRATIO) Globulin (test code 2.6 2.9-3.1 L = GLOB) Bili Total (test 0.3 mg/dL 0.1-0.9 N code = TBIL) Alk Phos (test code 84 U/L 35-104 N = APHOS) AST (test code = 52 U/L 1-32 H AST) ALT (test code = 84 U/L 1-33 H ALT) BUN/Creatinine 16.7 Ratio (test code = BCRATIO) Anion Gap (test 13 mmol/L 7-16 N code = AGAP) Estimated GFR (test >60 eGFR (es timated code = GFR) mL/min/1.73m2 Glomerular Eliazar tration Rate) is an est imated value,calculate d from the patient's s jesse creatinine usin g the MDRD equation.I t is NOT the patient 's actual GFR. The eGFR provides a more clinicallyusefu l measure of kidn ey disease than se rum creatinine alone.This calculation prateek es sex and race into account, if the informationis provided. If th e race is not provided , and the patient isAfrican-Ameri can, multiply by 1.2 12. If sex is not prov ided, and thepatient is female, multipl y by 0.742. Results for patients <18 ye ars ofage have not been validated by th e MDRD study and shoul d be interpretedwith caution.eGFR Re sult Interpretation: eGFR > or = 60 is in t he Normal RangeeGF R < 60 may mean kidney diseaseeGFR < 1 5 may mean kidney failureRange s recommended by the National Kidney Foundation,http ://nkd ep.nih.gov CBC with [id number] 17:00:00 Test Item Value Reference Range Interpretation Comments WBC (test code = WBC) 5.9 K/cumm 4.4-10.5 N RBC (test code = RBC) 4.66 M/cumm 3.75-5.20 N Hemoglobin (test code = HGB) 11.9 gm/dL 12.2-14.8 L Hematocrit (test code = HCT) 36.6 % 36.5-44.4 N MCV (test code = MCV) 78.5 fL 80-100 L MCH (test code = MCH) 25.6 pg 27.0-32.5 L MCHC (test code = MCHC) 32.6 g/dL 32.0-37.5 N RDW (test code = RDW) 15.7 % 11.5-14.5 H Platelet Count (test code = 329 K/cumm 140-440 N PLTCT) MPV (test code = MPV) 7.3 fL Diff Method (test code = DIFFM) Auto Neutrophil (test code = NEUT) 55.7 % 36-70 N Lymphocyte (test code = LYMPH) 33.5 % 12-44 N Monocyte (test code = MONO) 4.7 % 0-11 N Eosinophil (test code = EOS) 5.7 % 0-7 N Basophil (test code = BASO) 0.4 % 0-2 N Neutro Abs (test code = ANEUT) 3.3 K/cumm 1.6-7.4 N Lymph Abs (test code = ALYMPH) 2.0 K/cumm 0.5-4.6 N [place] Abs (test code = AMONO) 0.3 K/cumm 0.0-1.2 N Eos Abs (test code = AEOS) 0.34 K/cumm 0.00-0.74 N Baso Abs (test code = ABASO) 0.0 K/cumm 0.00-0.21 N 92469& PELVIS W/O [id number] 16:47:19CT OF THE ABDOMEN AND PELVIS WITHOUT CONTRASTLocation code: R 16CLINICAL HISTORY: Abdominal painCOMPARISON: None available.TECHNIQUE:5 mm contiguous axial images were obtained from the diaphragmatic domethrough the symphysis pubis. No contrast was administered per routinerenal stone protocol. Axial images were reformatted to create coronalreconstructions.One or more of the following dose reduction te chniqueswere used: Automated exposure control, adjustment of the [...] of the liver. Please correlate with hepaticprofile.2. 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 Nodules within the adrenal glands favored to represent smalladenomas.4. Surgical absence of the gallbladder and uterus.POC Glucose, [id number] 07:45:00 Test Item Value Reference Range Interpretation Comments POC Glucose (test 158 mg/dL 70-115 H Notify RN or MDIf you code = POCGLUC) consider you r patient critically ill, the [facility] Accu-Chek InformII metershould not be used for Glucose determinations. Draw a venous Glucose and send to the Main Lab for Analysis. POC Glucose, [id number] 20:31:00 Test Item Value Reference Range Interpretation Comments POC Glucose (test 167 mg/dL 70-115 H If you con long term acute care registered nurse your code = POCGLUC) patient crit ically ill, the [facility] Accu- Chek InformII meters hould not be used for Glu cose determinations. Draw a venous Glucose and send to the Main Lab for Analysis. POC Glucose, [id number] 16:44:00 Test Item Value Reference Range Interpretation Comments POC Glucose (test 148 mg/dL 70-115 H If you con long term acute care registered nurse your code = POCGLUC) patient crit ically ill, the [facility] Accu- Chek InformII meters hould not be used for Glu cose determinations. Draw a venous Glucose and send to the Main Lab for Analysis. POC Glucose, [id number] 11:25:00 Test Item Value Reference Range Interpretation Comments POC Glucose (test 173 mg/dL 70-115 H If you con long term acute care registered nurse your code = POCGLUC) patient crit ically ill, the [facility] Accu- Chek InformII meters hould not be used for Glu cose determinations. Draw a venous Glucose and send to the Main Lab for Analysis. POC Glucose, [id number] 07:30:00 Test Item Value Reference Range Interpretation Comments POC Glucose (test 191 mg/dL 70-115 H If you con long term acute care registered nurse your code = POCGLUC) patient crit ically ill, the [facility] Accu- Chek InformII meters hould not be used for Glu cose determinations. Draw a venous Glucose and send to the Main Lab for Analysis. POC Glucose, [id number] 06:33:00 Test Item Value Reference Range Interpretation Comments POC Glucose (test 181 mg/dL 70-115 H If you con long term acute care registered nurse your code = POCGLUC) patient crit ically ill, the [facility] Accu- Chek InformII meters hould not be used for Glu cose determinations. Draw a venous Glucose and send to the Main Lab for Analysis. Comprehensive Metabolic [id number] 05:28:00 Test Item Value Reference Range Interpretation Comments Sodium (test code = 139 mmol/L 135-145 N NA) Potassium (test 4.4 mmol/L 3.5-5.1 N code = K) Chloride (test code 101 mmol/L 98-105 N = CL) Carbon Dioxide 28 mmol/L 22-29 N (test code = CO2) Glucose (test code 195 mg/dL 70-115 H = GLU) Blood Urea Nitrogen 3 mg/dL 6-20 L (test code = BUN) Creatinine (test 0.6 mg/dL 0.5-0.9 N code = CREAT) Calcium (test code 8.8 mg/dL 8.3-10.5 N = CA) Prot Total (test 6.2 g/dL 6.4-8.3 L code = TP) Albumin (test code 3.6 g/dL 3.5-5.2 N = ALB) A/G Ratio (test 1.4 Ratio code = AGRATIO) Globulin (test code 2.6 2.9-3.1 L = GLOB) Bili Total (test 0.3 mg/dL 0.1-0.9 N code = TBIL) Alk Phos (test code 119 U/L 35-104 H = APHOS) AST (test code = 39 U/L 1-32 H AST) ALT (test code = 86 U/L 1-33 H ALT) BUN/Creatinine 5.0 Ratio (test code = BCRATIO) Anion Gap (test 10 mmol/L 7-16 N code = AGAP) Estimated GFR (test >60 eGFR (es timated code = GFR) mL/min/1.73m2 Glomerular Eliazar tration Rate) is an est imated value,calculate d from the patient's s jesse creatinine usin g the MDRD equation.I t is NOT the patient 's actual GFR. The eGFR provides a more clinicallyusefu l measure of kidn ey disease than se rum creatinine alone.This calculation prateek es sex and race into account, if the informationis provided. If th e race is not provided , and the patient isAfrican-Ameri can, multiply by 1.2 12. If sex is not prov ided, and thepatient is female, multipl y by 0.742. Results for patients <18 ye ars ofage have not been validated by th e MDRD study and shoul d be interpretedwith caution.eGFR Re sult Interpretation: eGFR > or = 60 is in t he Normal RangeeGF R < 60 may mean kidney diseaseeGFR < 1 5 may mean kidney failureRange s recommended by the National Kidney Foundation,http ://nkd ep.nih.gov CBC with [id number] 05:03:00 Test Item Value Reference Range Interpretation Comments WBC (test code = WBC) 5.1 K/cumm 4.4-10.5 N RBC (test code = RBC) 4.17 M/cumm 3.75-5.20 N Hemoglobin (test code = HGB) 11.2 gm/dL 12.2-14.8 L Hematocrit (test code = HCT) 32.8 % 36.5-44.4 L MCV (test code = MCV) 78.8 fL 80-100 L MCH (test code = MCH) 26.8 pg 27.0-32.5 L MCHC (test code = MCHC) 34.0 g/dL 32.0-37.5 N RDW (test code = RDW) 14.4 % 11.5-14.5 N Platelet Count (test code = 267 K/cumm 140-440 N PLTCT) MPV (test code = MPV) 6.8 fL Diff Method (test code = DIFFM) Auto Neutrophil (test code = NEUT) 58.2 % 36-70 N Lymphocyte (test code = LYMPH) 31.0 % 12-44 N Monocyte (test code = MONO) 5.5 % 0-11 N Eosinophil (test code = EOS) 4.6 % 0-7 N Basophil (test code = BASO) 0.7 % 0-2 N Neutro Abs (test code = ANEUT) 2.9 K/cumm 1.6-7.4 N Lymph Abs (test code = ALYMPH) 1.6 K/cumm 0.5-4.6 N Gu[place]upe Abs (test code = AMONO) 0.3 K/cumm 0.0-1.2 N Eos Abs (test code = AEOS) 0.23 K/cumm 0.00-0.74 N Baso Abs (test code = ABASO) 0.0 K/cumm 0.00-0.21 N POC Glucose, [id number] 21:57:00 Test Item Value Reference Range Interpretation Comments POC Glucose (test 176 mg/dL 70-115 H If you con long term acute care registered nurse your code = POCGLUC) patient crit ically ill, the [facility] Accu- Chek InformII meters hould not be used for Glu cose determinations. Draw a venous Glucose and send to the Main Lab for Analysis. POC Glucose, [id number] 16:25:00 Test Item Value Reference Range Interpretation Comments POC Glucose (test 148 mg/dL 70-115 H If you con long term acute care registered nurse your code = POCGLUC) patient crit ically ill, the [place] Accu- Chek InformII meters hould not be used for Glu cose determinations. Draw a venous Glucose and send to the Main Lab for Analysis. CT NECK SOFT TISSUE WO [id number] 15:49:06Exam: CT soft tissue neck withoutcontrast.Location: [id number]: Neck painTechnique: Unenhanced spiral slices were taken through the neck.Sagittal and coronal reformations were performed. One or more ofthefollowing radiation dose reduction techniques was used: Automaticexposure control, adjustment of mA and/or KV according to the patient'ssize, and/or utilization of iterative reconstruction technique. Findings:The parotid space, carotid space, hotel or motel room service supervisor space, prevertebral spaceand the fossa of Rosenm?ller are normal. The oral and hypopharynx areunremarkable.The salivary glands are normal. No sialadenitis or sialolithiasis isseen.The larynx and trachea are normal. The cervical and visualized thoracicesophagus is unremarkable. No lymphadenopathy is present in eitherjugular or either posterior chain.The thyroid gland is normal. The soft tissues are unremarkable.Impression:Unremarkable exam.CT CHEST W/O CONTRAST 2017-12-06 15:45:29Exam: CT thorax withoutcontrast.Location: [id number]: Chest painTechnique: Unenhancedspiral slices were taken from [...] are notedImpression: Left lower lobe pneumonia.POC Glucose, [id number] 11:54:00 Test Item Value Reference Range Interpretation Comments POC Glucose (test 200 mg/dL 70-115 H If you con long term acute care registered nurse your code = POCGLUC) patient crit ically ill, the [place] Accu- Chek InformII meters hould not be used for Glu cose determinations. Draw a venous Glucose and send to the Main Lab for Analysis. POC Glucose, [id number] 07:17:00 Test Item Value Reference Range Interpretation Comments POC Glucose (test 180 mg/dL 70-115 H If you con long term acute care registered nurse your code = POCGLUC) patient crit ically ill, the [place] Accu- Chek InformII meters hould not be used for Glu cose determinations. Draw a venous Glucose and send to the Main Lab for Analysis. Comprehensive Metabolic [id number] 06:33:00 Test Item Value Reference Range Interpretation Comments Sodium (test code = 138 mmol/L 135-145 N NA) Potassium (test 4.2 mmol/L 3.5-5.1 N code = K) Chloride (test code 100 mmol/L 98-105 N = CL) Carbon Dioxide 26 mmol/L 22-29 N (test code = CO2) Glucose (test code 179 mg/dL 70-115 H = GLU) Blood Urea Nitrogen 4 mg/dL 6-20 L (test code = BUN) Creatinine (test 0.6 mg/dL 0.5-0.9 N code = CREAT) Calcium (test code 9.3 mg/dL 8.3-10.5 N = CA) Prot Total (test 6.4 g/dL 6.4-8.3 N code = TP) Albumin (test code 3.8 g/dL 3.5-5.2 N = ALB) A/G Ratio (test 1.5 Ratio code = AGRATIO) Globulin (test code 2.6 2.9-3.1 L = GLOB) Bili Total (test 0.3 mg/dL 0.1-0.9 N code = TBIL) Alk Phos (test code 125 U/L 35-104 H = APHOS) AST (test code = 63 U/L 1-32 H AST) ALT (test code = 92 U/L 1-33 H ALT) BUN/Creatinine 6.7 Ratio (test code = BCRATIO) Anion Gap (test 12 mmol/L 7-16 N code = AGAP) Estimated GFR (test >60 eGFR (es timated code = GFR) mL/min/1.73m2 Glomerular Eliazar tration Rate) is an est imated value,calculate d from the patient's s jesse creatinine usin g the MDRD equation.I t is NOT the patient 's actual GFR. The eGFR provides a more clinicallyusefu l measure of kidn ey disease than se rum creatinine alone.This calculation prateek es sex and race into account, if the informationis provided. If th e race is not provided , and the patient isTony can, multiply by 1.2 12. If sex is not prov ided, and thepatient is female, multipl y by 0.742. Results for patients <18 ye ars ofage have not been validated by th e MDRD study and shoul d be interpretedwith caution.eGFR Re sult Interpretation: eGFR > or = 60 is in t he Normal RangeeGF R < 60 may mean kidney diseaseeGFR < 1 5 may mean kidney failureRange s recommended by the National Kidney Foundation,http ://nkd ep.nih.gov CBC with [id number] 06:13:00 Test Item Value Reference Range Interpretation Comments WBC (test code = WBC) 5.5 K/cumm 4.4-10.5 N RBC (test code = RBC) 4.51 M/cumm 3.75-5.20 N Hemoglobin (test code = HGB) 11.9 gm/dL 12.2-14.8 L Hematocrit (test code = HCT) 35.8 % 36.5-44.4 L MCV (test code = MCV) 79.4 fL 80-100 L MCH (test code = MCH) 26.4 pg 27.0-32.5 L MCHC (test code = MCHC) 33.2 g/dL 32.0-37.5 N RDW (test code = RDW) 14.6 % 11.5-14.5 H Platelet Count (test code = 257 K/cumm 140-440 N PLTCT) MPV (test code = MPV) 6.7 fL Diff Method (test code = DIFFM) Auto Neutrophil (test code = NEUT) 59.4 % 36-70 N Lymphocyte (test code = LYMPH) 28.3 % 12-44 N Monocyte (test code = MONO) 6.2 % 0-11 N Eosinophil (test code = EOS) 5.6 % 0-7 N Basophil (test code = BASO) 0.4 % 0-2 N Neutro Abs (test code = ANEUT) 3.3 K/cumm 1.6-7.4 N Lymph Abs (test code = ALYMPH) 1.6 K/cumm 0.5-4.6 N [place]upe Abs (test code = AMONO) 0.4 K/cumm 0.0-1.2 N Eos Abs (test code = AEOS) 0.31 K/cumm 0.00-0.74 N Baso Abs (test code = ABASO) 0.0 K/cumm 0.00-0.21 N POC Glucose, [id number] 23:37:00 Test Item Value Reference Range Interpretation Comments POC Glucose (test 152 mg/dL 70-115 H If you con long term acute care registered nurse your code = POCGLUC) patient crit ically ill, the [place] Accu- Chek InformII meters hould not be used for Glu cose determinations. Draw a venous Glucose and send to the Main Lab for Analysis. POC Glucose, [id number] 17:16:00 Test Item Value Reference Range Interpretation Comments POC Glucose (test 170 mg/dL 70-115 H If you con long term acute care registered nurse your code = POCGLUC) patient crit ically ill, the [place] Accu- Chek InformII meters hould not be used for Glu cose determinations. Draw a venous Glucose and send to the Main Lab for Analysis. D-Dimer, [id number] 15:56:00 Test Item Value Reference Range Interpretation Comments D-Dimer, Quant (test code = DDQNT) 1610 ng/mL 0-500 H 32687&PERFUS [id number] 14:47:54Dictation location: R 16Clinical indication: Shortness of [...] probability of pulmonary emboli.US DUPLX EXT VEINS JONI [id number] 12:42:18 DICTATION LOCATION: [id number]: DVTCOMPARISON: None available.TECHNIQUE: Duplex sonography of theright [...] lower extremity.Small right Gaspar's cyst.XR CHEST 2V, [id number] 11:43:22EXAM: Chest x-ray, 2 viewsLOCATION: [id number]: Chest radiograph 12/04/2017 and 11/26/2017INDICATION : chest painDISCUSSION:PA and lateral chest radiographs were submitted for interpretation.Tubing courses over the left upper abdomen.Mild left basilar opacity may be due to atelectasis. The left costophrenic angle is blunted.The lungs are otherwise grossly clear.No pneumothorax is seen. The cardiac si lhouette is mildly enlarged. No acute osseous abnormalities are identified. IMPRESSION:1. Mild left basilar opacity may be due to atelectasis. Questionablesmall left pleural effusion.2. Mildly enlarged cardiac silhouette.3. Otherwise, no acute cardiopulmonary abnormalities.POC Glucose, [id number] 07:08:00 Test Item Value Reference Range Interpretation Comments POC Glucose (test 201 mg/dL 70-115 H Notify RN or MDIf you code = POCGLUC) consider you r patient critically ill, the [place] Accu-Chek InformII metershould not be used for Glucose determinations. Draw a venous Glucose and send to the Main Lab for Analysis. POC Glucose, [id number] 00:19:00 Test Item Value Reference Range Interpretation Comments POC Glucose (test 173 mg/dL 70-115 H Notify RN or MDIf you code = POCGLUC) consider you r patient critically ill, the [facility] Accu-Chek InformII metershould not be used for Glucose determinations. Draw a venous Glucose and send to the Main Lab for Analysis. POC Glucose, [id number] 21:49:00 Test Item Value Reference Range Interpretation Comments POC Glucose (test 189 mg/dL 70-115 H If you con long term acute care registered nurse your code = POCGLUC) patient crit ically ill, the [place] Accu- Chek InformII meters hould not be used for Glu cose determinations. Draw a venous Glucose and send to the Main Lab for Analysis. POC Glucose, [id number] 17:09:00 Test Item Value Reference Range Interpretation Comments POC Glucose (test 193 mg/dL 70-115 H Notify RN or MDIf you code = POCGLUC) consider you r patient critically ill, the [place] Accu-Chek InformII metershould not be used for Glucose determinations. Draw a venous Glucose and send to the Main Lab for Analysis. POC Glucose, [id number] 12:20:00 Test Item Value Reference Range Interpretation Comments POC Glucose (test 166 mg/dL 70-115 H If you con long term acute care registered nurse your code = POCGLUC) patient crit ically ill, the [place] Accu- Chek InformII meters hould not be used for Glu cose determinations. Draw a venous Glucose and send to the Main Lab for Analysis. POC Glucose, [id number] 09:03:00 Test Item Value Reference Range Interpretation Comments POC Glucose (test 212 mg/dL 70-115 H If you con long term acute care registered nurse your code = POCGLUC) patient crit ically ill, the [place] Accu- Chek InformII meters hould not be used for Glu cose determinations. Draw a venous Glucose and send to the Main Lab for Analysis. Comprehensive Metabolic [id number] 05:54:00 Test Item Value Reference Range Interpretation Comments Sodium (test code = 138 mmol/L 135-145 N NA) Potassium (test 4.4 mmol/L 3.5-5.1 N Hemolyzed code = K) Chloride (test code 98 mmol/L 98-105 N = CL) Carbon Dioxide 25 mmol/L 22-29 N (test code = CO2) Glucose (test code 217 mg/dL 70-115 H = GLU) Blood Urea Nitrogen 4 mg/dL 6-20 L (test code = BUN) Creatinine (test 0.6 mg/dL 0.5-0.9 N code = CREAT) Calcium (test code 8.6 mg/dL 8.3-10.5 N = CA) Prot Total (test 6.8 g/dL 6.4-8.3 N code = TP) Albumin (test code 3.8 g/dL 3.5-5.2 N = ALB) A/G Ratio (test 1.3 Ratio code = AGRATIO) Globulin (test code 3.0 2.9-3.1 N = GLOB) Bili Total (test 0.4 mg/dL 0.1-0.9 N code = TBIL) Alk Phos (test code 81 U/L 35-104 N = APHOS) AST (test code = 51 U/L 1-32 H AST) ALT (test code = 74 U/L 1-33 H ALT) BUN/Creatinine 6.7 Ratio (test code = BCRATIO) Anion Gap (test 15 mmol/L 7-16 N code = AGAP) Estimated GFR (test >60 eGFR (es timated code = GFR) mL/min/1.73m2 Glomerular Eliazar tration Rate) is an est imated value,calculate d from the patient's s jesse creatinine usin g the MDRD equation.I t is NOT the patient 's actual GFR. The eGFR provides a more clinicallyusefu l measure of kidn ey disease than se rum creatinine alone.This calculation prateek es sex and race into account, if the informationis provided. If th e race is not provided , and the patient isAfrican-Ameri can, multiply by 1.2 12. If sex is not prov ided, and thepatient is female, multipl y by 0.742. Results for patients <18 ye ars ofage have not been validated by th e MDRD study and shoul d be interpretedwith caution.eGFR Re sult Interpretation: eGFR > or = 60 is in t he Normal RangeeGF R < 60 may mean kidney diseaseeGFR < 1 5 may mean kidney failureRange s recommended by the National Kidney Foundation,http ://nkd ep.nih.gov CBC with [id number] 05:40:00 Test Item Value Reference Range Interpretation Comments WBC (test code = WBC) 11.3 K/cumm 4.4-10.5 H RBC (test code = RBC) 4.39 M/cumm 3.75-5.20 N Hemoglobin (test code = HGB) 11.9 gm/dL 12.2-14.8 L Hematocrit (test code = HCT) 35.9 % 36.5-44.4 L MCV (test code = MCV) 81.8 fL 80-100 N MCH (test code = MCH) 27.0 pg 27.0-32.5 N MCHC (test code = MCHC) 33.0 g/dL 32.0-37.5 N RDW (test code = RDW) 14.6 % 11.5-14.5 H Platelet Count (test code = 256 K/cumm 140-440 N PLTCT) MPV (test code = MPV) 9.5 fL Diff Method (test code = DIFFM) Auto Neutrophil (test code = NEUT) 75.9 % 36-70 H Lymphocyte (test code = LYMPH) 15.3 % 12-44 N Monocyte (test code = MONO) 8.1 % 0-11 N Eosinophil (test code = EOS) 0.4 % 0-7 N Basophil (test code = BASO) 0.2 % 0-2 N Neutro Abs (test code = ANEUT) 8.6 K/cumm 1.6-7.4 H Lymph Abs (test code = ALYMPH) 1.7 K/cumm 0.5-4.6 N [place]upe Abs (test code = AMONO) 0.9 K/cumm 0.0-1.2 N Eos Abs (test code = AEOS) 0.04 K/cumm 0.00-0.74 N Baso Abs (test code = ABASO) 0.0 K/cumm 0.00-0.21 N POC Glucose, [id number] 05:04:00 Test Item Value Reference Range Interpretation Comments POC Glucose (test 202 mg/dL 70-115 H If you con long term acute care registered nurse your code = POCGLUC) patient crit ically ill, the [place] Accu- Chek InformII meters hould not be used for Glu cose determinations. Draw a venous Glucose and send to the Main Lab for Analysis. XR CHEST 1 [id number] 03:04:28AFTER HOURS SERVICE ON: 12/04/2017 3:04 AMAP Portable ChestLocation Code [id number]: Status Post Lap Gastric BypassFINDINGS: There are no infiltrates. There are no pleural effusions. There is nopneumotho rax. Cardiac silhouette and mediastinum appear within normallimits. Surgical drain is noted projecting over the mid abdomen and leftupper quadrant.IMPRESSION: No active intrathoracic findings.POC Glucose, Blood 2017-12-04 02:06:00 Test Item Value Reference Range Interpretation Comments POC Glucose (test 213 mg/dL 70-115 H If you con long term acute care registered nurse your code = POCGLUC) patient crit ically ill, the [place] Accu- Chek InformII meters hould not be used for Glu cose determinations. Draw a venous Glucose and send to the Main Lab for Analysis. POC Glucose, [id number] 21:15:00 Test Item Value Reference Range Interpretation Comments POC Glucose (test 236 mg/dL 70-115 H If you con long term acute care registered nurse your code = POCGLUC) patient crit ically ill, the [place] Accu- Chek InformII meters hould not be used for Glu cose determinations. Draw a venous Glucose and send to the Main Lab for Analysis. POC Glucose, [id number] 16:03:00 Test Item Value Reference Range Interpretation Comments POC Glucose (test 235 mg/dL 70-115 H If you con long term acute care registered nurse your code = POCGLUC) patient crit ically ill, the [place] Accu- Chek InformII meters hould not be used for Glu cose determinations. Draw a venous Glucose and send to the Main Lab for Analysis. POC Glucose, [id number] 11:24:00 Test Item Value Reference Range Interpretation Comments POC Glucose (test 269 mg/dL 70-115 H If you con long term acute care registered nurse your code = POCGLUC) patient crit ically ill, the [place] Accu- Chek InformII meters hould not be used for Glu cose determinations. Draw a venous Glucose and send to the Main Lab for Analysis. XR CHEST 2 [id number] 18:35:18CLINICAL INFORMATION: Preprocedural evaluation. Checkup..Dictation Location: R 16Comparison: No prior.Findings: The heart size and pulmonary vessels are unremarkable.No active consolidation, effusion, or soft tissue mass is identified.Mild vertebral spurring.IMPRESSION: No active disease of the heart or lungs identified.Basic Metabolic Panel 2017-11-26 18:23:00 Test Item Value Reference Range Interpretation Comments Sodium (test code = 137 mmol/L 135-145 N NA) Potassium (test 4.2 mmol/L 3.5-5.1 N code = K) Chloride (test code 95 mmol/L 98-105 L = CL) Carbon Dioxide 27 mmol/L 22-29 N (test code = CO2) Glucose (test code 200 mg/dL 70-115 H = GLU) Blood Urea Nitrogen 17 mg/dL 6-20 N (test code = BUN) Creatinine (test 0.7 mg/dL 0.5-0.9 N code = CREAT) Calcium (test code 9.9 mg/dL 8.3-10.5 N = CA) BUN/Creatinine 24.3 Ratio (test code = BCRATIO) Anion Gap (test 15 mmol/L 7-16 N code = AGAP) Estimated GFR (test >60 eGFR (es timated code = GFR) mL/min/1.73m2 Glomerular Eliazar tration Rate) is an est imated value,calculate d from the patient's s jesse creatinine usin g the MDRD equation.I t is NOT the patient 's actual GFR. The eGFR provides a more clinicallyusefu l measure of kidn ey disease than se rum creatinine alone.This calculation prateek es sex and race into account, if the informationis provided. If th e race is not provided , and the patient isAfrican-Ameri can, multiply by 1.2 12. If sex is not prov ided, and thepatient is female, multipl y by 0.742. Results for patients <18 ye ars ofage have not been validated by th e MDRD study and rosauraul d be interpretedwith caution.eGFR Re sult Interpretation: eGFR > or = 60 is in t he Normal RangeeGF R < 60 may mean kidney diseaseeGFR < 1 5 may mean kidney failureRange s recommended by the National Kidney Foundation,http ://nkd ep.nih.gov CBC with [id number] 18:08:00 Test Item Value Reference Range Interpretation Comments WBC (test code = WBC) 6.9 K/cumm 4.4-10.5 N RBC (test code = RBC) 5.14 M/cumm 3.75-5.20 N Hemoglobin (test code = HGB) 13.1 gm/dL 12.2-14.8 N Hematocrit (test code = HCT) 41.1 % 36.5-44.4 N MCV (test code = MCV) 79.9 fL 80-100 L MCH (test code = MCH) 25.5 pg 27.0-32.5 L MCHC (test code = MCHC) 31.9 g/dL 32.0-37.5 L RDW (test code = RDW) 14.5 % 11.5-14.5 N Platelet Count (test code = 337 K/cumm 140-440 N PLTCT) MPV (test code = MPV) 9.4 fL Diff Method (test code = DIFFM) Auto Neutrophil (test code = NEUT) 64.7 % 36-70 N Lymphocyte (test code = LYMPH) 28.6 % 12-44 N Monocyte (test code = MONO) 4.5 % 0-11 N Eosinophil (test code = EOS) 2.0 % 0-7 N Basophil (test code = BASO) 0.3 % 0-2 N Neutro Abs (test code = ANEUT) 4.5 K/cumm 1.6-7.4 N Lymph Abs (test code = ALYMPH) 2.0 K/cumm 0.5-4.6 N [place] Abs (test code = AMONO) 0.3 K/cumm 0.0-1.2 N Eos Abs (test code = AEOS) 0.14 K/cumm 0.00-0.74 N Baso Abs (test code = ABASO) 0.0 K/cumm 0.00-0.21 N US DUPLX EXT VEIN COMPRS, [id number] 13:22:06DICTATION LOCATION: [id number]: [id number]: ACUTE EMBOLISM AND THOMBOS UNSP DEEP [...]
[2020-11-12 07:58] LABS: Absolute Lymphocytes (CBC) 1.3 K/uL (0.7-4.9); Hematocrit 36.8 % (36.0-45.0); Lymphocytes % 21.6 % (15.3-44.8); MPV 9.6 fL (7.6-11.3); RBC Red Blood Cell Count 4.21 M/uL (3.86-4.86)
[2020-11-12] MEDS ORDERED: MORPHINE 4 MG/ML SYR ONE (08:03)
[2020-11-12] MEDS ORDERED: ONDANSETRON 4 MG/2 ML VIAL ONE (08:03)
[2020-11-12] MEDS ORDERED: ASPIRIN 81 MG CHEWABLE TABLET ONE (08:04)
[2020-11-12 08:13] LABS: ALT/SGPT 24 U/L (12-78); AST/SGOT 12 U/L (15-37); Albumin 3.7 g/dL (3.4-5.0); Alkaline Phosphatase 87 U/L (45-117); BUN Blood Urea Nitrogen 7 mg/dL (7-18); Bicarbonate 27 mmol/L (21-32); Bilirubin Direct < 0.1 mg/dL (0-0.2); Bilirubin Total 0.2 mg/dL (0.2-1.0); Glucose Level 98 mg/dL (74-106); Magnesium 2.1 mg/dL (1.8-2.4); NT PRO-BNP 177 pg/mL (<125); Potassium 3.6 mmol/L (3.5-5.1); Protein, Total 7.3 g/dL (6.4-8.2); Sodium Level 146 mmol/L (136-145); Troponin (Emerg Dept Use Only) < 0.02 ng/mL (0.0-0.045)
[2020-11-12 08:20] LABS: Protime INR 0.98
--- NOTE | 2020-11-12 08:53 | EDPHYS ---
Physician Documentation [facility] Name: Kat Aguilar Age: 50 yrs Sex: Female : 1970 Arrival Date: 11/12/2020 Time: 04:55 Bed 4 Private MD: ALEXANDER Physician Chandana Clark HPI: 11/12 07:36 This 50 yrs old Female presents to ER via Ambulatory with complaints of Chest genny Pressure, Nausea. 07:36 This 50 yrs old Female presents to ER via Ambulatory with complaints of Chest genny Pressure, Nausea. 07:36 The patient or guardian reports chest pain that is located primarily in the anterior genny chest wall, left. Onset: 1 day(s) ago. The pain does not radiate. Associated signs and symptoms: The patient has no apparent associated signs or symptoms. The chest pain is described as a pressure. Duration: The patient or guardian reports a single episode, that is still ongoing. Modifying factors: The symptoms are alleviated by nothing. the symptoms are aggravated by nothing. Severity of pain: At its worst the pain was mild in the emergency department the pain is unchanged. The patient has not experienced similar symptoms in the past. Historical: - Allergies: 05:10 Demerol; sg 05:10 IV contrast; sg 05:10 Latex, Natural Rubber; sg 05:10 NSAIDS; sg 05:10 Sulfa (Sulfonamide Antibiotics); sg 05:10 Toradol; sg - PMHx: 05:10 Back pain; Bipolar disorder; chronic constipation; Diabetes - NIDDM; High Cholesterol; sg Hypertension; Hypothyroidism; Migraines; PERIPHERAL NEUROPATHY; Sleep Apnea; 05:11 Suicide Attempt; sg - PSHx: 05:10 Cholecystectomy; R knee; Gastric Bypass; Hysterectomy; ; sg - Immunization history:: Adult Immunizations not up to date. - Social history:: Smoking status: Patient denies any tobacco usage or history of. - Family history:: not pertinent. ROS: 07:36 Constitutional: Negative for fever, chills, and weight loss, Eyes: Negative for injury, genny pain, redness, and discharge, ENT: Negative for injury, pain, and discharge, Neck: Negative for injury, pain, and swelling, Respiratory: Negative for shortness of breath, cough, wheezing, and pleuritic chest pain, Abdomen/GI: Negative for abdominal pain, nausea, vomiting, diarrhea, and constipation, Back: Negative for injury and pain, : Negative for injury, bleeding, discharge, and swelling, MS/Extremity: Negative for injury and deformity, Skin: Negative for injury, rash, and discoloration, Neuro: Negative for headache, weakness, numbness, tingling, and seizure, Psych: Negative for depression, anxiety, suicide ideation, homicidal ideation, and hallucinations, Allergy/Immunology: Negative for hives, rash, and allergies, Endocrine: Negative for neck swelling, polydipsia, polyuria, polyphagia, and marked weight changes, Hematologic/Lymphatic: Negative for swollen nodes, abnormal bleeding, and unusual bruising. 07:36 Cardiovascular: Positive for chest pain. Exam: 07:36 Constitutional: This is a well developed, well nourished patient who is awake, alert, genny and in no acute distress. Head/Face: Normocephalic, atraumatic. Eyes: Pupils equal round and reactive to light, extra-ocular motions intact. Lids and lashes normal. Conjunctiva and sclera are non-icteric and not injected. Cornea within normal limits. Periorbital areas with no swelling, redness, or edema. ENT: Nares patent. No nasal discharge, no septal abnormalities noted. Tympanic membranes are normal and external auditory canals are clear. Oropharynx with no redness, swelling, or masses, exudates, or evidence of obstruction, uvula midline. Mucous membranes moist. Neck: Trachea midline, no thyromegaly or masses palpated, and no cervical lymphadenopathy. Supple, full range of motion without nuchal rigidity, or vertebral point tenderness. No Meningismus. Chest/axilla: Normal chest wall appearance and motion. Nontender with no deformity. No lesions are appreciated. Cardiovascular: Regular rate and rhythm with a normal S1 and S2. No gallops, murmurs, or rubs. Normal PMI, no JVD. No pulse deficits. Respiratory: Lungs have equal breath sounds bilaterally, clear to auscultation and percussion. No rales, rhonchi or wheezes noted. No increased work of breathing, no retractions or nasal flaring. Abdomen/GI: Soft, non-tender, with normal bowel sounds. No distension or tympany. No guarding or rebound. No evidence of tenderness throughout. Back: No spinal tenderness. No costovertebral tenderness. Full range of motion. Female : Normal external genitalia. Skin: Warm, dry with normal turgor. Normal color with no rashes, no lesions, and no evidence of cellulitis. MS/ Extremity: Pulses equal, no cyanosis. Neurovascular intact. Full, normal range of motion. Neuro: Awake and alert, GCS 15, oriented to person, place, time, and situation. Cranial nerves II-XII grossly intact. Motor strength 5/5 in all extremities. Sensory grossly intact. Cerebellar exam normal. Normal gait. Psych: Awake, alert, with orientation to person, place and time. Behavior, mood, and affect are within normal limits. 07:36 Musculoskeletal/extremity: DVT Exam: No signs of deep vein thrombosis. no pain, no swelling, no tenderness, negative Homans' sign noted on exam, no appreciated bluish discoloration, no erythema, no increased warmth. 07:39 ECG was reviewed by the Attending Physician. [facility] 10:09 ECG was reviewed by the Attending Physician. [facility] Vital Signs: 07:00 BP 145 / 67; Pulse 62; Resp 17; Temp 98; Pulse Ox 99% ; bp 07:54 BP 137 / 79; Pulse 74; Resp 16 S; Pulse Ox 97% on R/A; aa5 08:30 BP 125 / 65; Pulse 65; Resp 14 S; Pulse Ox 95% on R/A; aa5 09:00 BP 127 / 54; Pulse 70; Resp 16 S; Pulse Ox 98% on R/A; aa5 10:00 BP 125 / 85; Pulse 65; Resp 17; Pulse Ox 95% ; bp 10:51 BP 127 / 54; Pulse 54; Resp 17; Pulse Ox 95% ; bp MDM: 07:34 Patient medically screened. [facility] 07:39 Differential diagnosis: abnormal EKG, acute myocardial infarction, acute pericarditis, genny anxiety, coronary artery disease chest wall pain, costochondritis, hiatal hernia, pancreatitis, stable angina, unstable angina. HEART Score: History: Slightly Suspicious (0), ECG: Normal (0), Age: > 45 and < 65 years (1), Risk Factors: > or = 3 Risk factors for atherosclerotic disease (2), [Hypertension] [+ Family HX] [Obesity] Troponin: < or = 1 x Normal Limit (0). The patient was given aspirin in the Emergency Department. The patient's deep vein thrombosis risk score was calculated as follows: Total Score: 0. This patient was found to be at low risk for a deep vein thrombosis by using the Well's assessment criteria. The patient's pulmonary embolism risk score was calculated as follows: Total Score: 0-2 points. This patient was found to be at low risk for a pulmonary embolism by using the Well's assessment criteria. NAVYA Risk Score: 1 - Three or more CAD risk factors, [Family Hx], [HTN], [Elevated Cholesterol], TOTAL SCORE =. Data reviewed: vital signs, nurses notes, lab test result(s), EKG, radiologic studies, plain films. Data interpreted: cloth beamer: rate is 62 beats/min, rhythm is regular, Pulse oximetry: on room air is 99 %. 11/12 05:42 Order name: Basic Metabolic Panel; Complete Time: 08:42 11/12 05:42 Order name: CBC with Diff; Complete Time: 08:42 11/12 05:42 Order name: LFT's; Complete Time: 08:42 11/12 05:42 Order name: Magnesium; Complete Time: 08:42 11/12 05:42 Order name: NT PRO-BNP; Complete Time: 08:42 ea 11/12 05:42 Order name: PT-INR; Complete Time: 08:42 11/12 05:42 Order name: Troponin (emerg Dept Use Only); Complete Time: 08:42 11/12 05:42 Order name: XRAY Chest (1 view) 11/12 07:36 Order name: Lipase; Complete Time: 10:36 [facility] 11/12 08:47 Order name: Troponin (emerg Dept Use Only): 9am; Complete Time: 10:36 [facility] 11/12 10:18 Order name: Urine Dipstick--Ancillary (enter results) 11/12 10:19 Order name: Urine Dipstick-Ancillary EDIL 11/12 05:42 Order name: EKG; Complete Time: 07:18 11/12 05:42 Order name: Cardiac monitoring; Complete Time: 07:08 11/12 05:42 Order name: EKG - Nurse/Tech; Complete Time: 07:08 ea 11/12 05:42 Order name: IV Saline Lock; Complete Time: 07:43 ea 11/12 05:42 Order name: Labs collected and sent; Complete Time: 07:43 11/12 05:42 Order name: O2 Per Protocol; Complete Time: 07:43 11/12 05:42 Order name: O2 Sat Monitoring; Complete Time: 07:43 ea 11/12 08:50 Order name: EKG; Complete Time: 08:51 [facility] 11/12 08:50 Order name: EKG - Nurse/Tech; Complete Time: 10:15 [facility] 11/12 10:11 Order name: Urine Dipstick-Ancillary (obtain specimen); Complete Time: 10:15 [facility] EC:39 Rate is 67 beats/min. Rhythm is regular. QRS [place] is Normal. CA interval is normal. QRS genny interval is normal. QT interval is normal. No Q waves. T waves are Normal. No ST changes noted. Clinical impression: NSR w/ Non-specific ST/T Changes and No evidence of ischemia. Interpreted by me. Reviewed by me. 10:09 Rate is 56 beats/min. Rhythm is regular. QRS [place] is Normal. CA interval is normal. QRS genny interval is normal. QT interval is normal. No Q waves. T waves are Normal. T waves are Flattened. No ST changes noted. Clinical impression: Sinus bradycardia and No evidence of ischemia. Interpreted by me. Reviewed by me. Administered Medications: 07:54 Drug: Aspirin 81 mg Route: PO; aa5 10:18 Follow up: Response: No adverse reaction aa5 07:54 Drug: morphine 4 mg Route: IVP; Site: right forearm; aa5 08:05 Follow up: Response: No adverse reaction aa5 07:54 Drug: Zofran (Ondansetron) 4 mg Route: IVP; Site: right forearm; aa5 08:05 Follow up: Response: No adverse reaction aa5 09:20 Drug: NS 0.9% 1000 ml Route: IV; Rate: 1 bolus; Site: right forearm; aa5 10:54 Follow up: IV Status: Completed infusion; IV Intake: 1000ml bp 09:20 Drug: ToPROL XL 25 mg Route: PO; aa5 10:54 Follow up: Response: No adverse reaction bp Disposition: 11/12/20 08:53 Discharged to Home. Impression: Chest pain, unspecified, Bipolar disorder. - Condition is Stable. - Discharge Instructions: Nonspecific Chest Pain, Nonspecific Chest Pain, [id number], Aspirin and Your Heart. - Prescriptions for Toprol XL 25 mg Oral Tablet - take 1 tablet by ORAL route once daily; 20 tablet. - Medication Reconciliation Form, Thank You Letter, Antibiotic Education, Prescription Opioid Use, Work release form, Family Work Release form. - Follow up: Private Physician; When: 2 - 3 days; Reason: Recheck today's complaints, Continuance of care, Re-evaluation by your physician. Follow up: Robson Charles; When: 2 - 3 days; Reason: Recheck today's complaints, Re-evaluation by your physician. - Problem is new. - Symptoms have improved. Signatures: Dispatcher [employer] EDMS Ted Gonzalez RN RN Chandana Levi MD MD cha Calderon, Audri RN RN aa5 Lorena Chacon RN Champ Manzo ea RN RN bp Corrections: (The following items were deleted from the chart) 10:55 08:53 11/12/2020 08:53 Discharged to Home. Impression: Chest pain, unspecified; Bipolar bp disorder. Condition is Stable. Discharge Instructions: Nonspecific Chest Pain, Nonspecific Chest Pain, [id number], Aspirin and Your Heart. Prescriptions for Toprol XL 25 mg Oral Tablet - take 1 tablet by ORAL route once daily; 20 tablet. and Forms are Medication Reconciliation Form, Thank You Letter, Antibiotic Education, Prescription Opioid Use. Follow up: Private Physician; When: 2 - 3 days; Reason: Recheck today's complaints, Continuance of care, Re-evaluation by your physician. Follow up: Robson Charles; When: 2 - 3 days; Reason: Recheck today's complaints, Re-evaluation by your physician. Problem is new. Symptoms have improved. genny
--- NOTE | 2020-11-12 08:53 | ER ---
Nurse's Notes [facility] Name: Kat Aguilar Age: 50 yrs Sex: Female : 1970 Arrival Date: 11/12/2020 Time: 04:55 Bed 4 Private MD: Diagnosis: Chest pain, unspecified;Bipolar disorder Presentation: 11/12 05:08 Chief complaint: Nausea and Chest pressure that began overnight, worsening this sg morning. Coronavirus screen: Client denies travel out of the [place] in the last 14 days. Ebola Screen: Patient negative for fever greater than or equal to 101.5 degrees Fahrenheit, and additional compatible Ebola Virus Disease symptoms Patient denies exposure to infectious person. Patient denies travel to an Ebola-affected area in the 21 days before illness onset. No symptoms or risks identified at this time. Initial Sepsis Screen: Does the patient meet any 2 criteria? No. Patient's initial sepsis screen is negative. Does the patient have a suspected source of infection? No. Patient's initial sepsis screen is negative. Risk Assessment: Do you want to hurt yourself or someone else? Patient reports no desire to harm self or others. Onset of symptoms was November 12, 2020. Care prior to arrival: None. Transition of care: patient was not received from another setting of care. 05:08 Acuity: JADYN 3 sg 05:08 Method Of Arrival: Ambulatory sg Triage Assessment: 07:00 General: Appears distressed, uncomfortable, obese, Behavior is cooperative, appropriate bp for age, anxious. Pain: Complains of pain in chest. EENT: No deficits noted. Neuro: No deficits noted. Cardiovascular: Rhythm is sinus rhythm. Respiratory: No deficits noted. GI: Reports nausea. : No signs and/or symptoms were reported regarding the genitourinary system. Derm: No signs and/or symptoms reported regarding the dermatologic system. Musculoskeletal: No deficits noted. Historical: - Allergies: 05:10 Demerol; sg 05:10 IV contrast; sg 05:10 Latex, Natural Rubber; sg 05:10 NSAIDS; sg 05:10 Sulfa (Sulfonamide Antibiotics); sg 05:10 Toradol; sg - PMHx: 05:10 Back pain; Bipolar disorder; chronic constipation; Diabetes - NIDDM; High Cholesterol; sg Hypertension; Hypothyroidism; Migraines; PERIPHERAL NEUROPATHY; Sleep Apnea; 05:11 Suicide Attempt; sg - PSHx: 05:10 Cholecystectomy; R knee; Gastric Bypass; Hysterectomy; ; sg - Immunization history:: Adult Immunizations not up to date. - Social history:: Smoking status: Patient denies any tobacco usage or history of. - Family history:: not pertinent. Screenin:30 Abuse screen: Denies threats or abuse. Nutritional screening: No deficits noted. ea Tuberculosis screening: No symptoms or risk factors identified. Fall Risk None identified. Assessment: 07:00 General: SEE TRIAGE NOTE. bp 07:00 Reassessment: RECD REPORT FROM MODESTO FOLEY. 50YO WF P/W CP, FREQUENT H/O SAME. bp 07:30 General: Appears uncomfortable, Behavior is calm, cooperative. Pain: Complains of pain aa5 in chest Pain does not radiate. Pain currently is 8 out of 10 on a pain scale. Quality of pain is described as pressure, Pain began "last night" Is continuous. Neuro: Level of Consciousness is awake, alert, obeys commands, Oriented to person, place, time, situation. Cardiovascular: Heart tones S1 S2 present Rhythm is regular. Respiratory: Airway is patent Respiratory effort is even, unlabored, Respiratory pattern is regular, symmetrical, Breath sounds are clear bilaterally. GI: Abdomen is round non-distended, Reports nausea. : No signs and/or symptoms were reported regarding the genitourinary system. EENT: No signs and/or symptoms were reported regarding the EENT system. Derm: Skin is pink, warm \\T\\ dry. Musculoskeletal: Range of motion: intact in all extremities. 08:30 Reassessment: Pt resting in bed with eyes closed, respirations even and unlabored, skin aa5 is pink/warm/dry. 10:50 Reassessment: PT D/C HOME AMBULATORY, DX WITH NON-CARDIAC CHEST PAIN. bp Vital Signs: 07:00 BP 145 / 67; Pulse 62; Resp 17; Temp 98; Pulse Ox 99% ; bp 07:54 BP 137 / 79; Pulse 74; Resp 16 S; Pulse Ox 97% on R/A; aa5 08:30 BP 125 / 65; Pulse 65; Resp 14 S; Pulse Ox 95% on R/A; aa5 09:00 BP 127 / 54; Pulse 70; Resp 16 S; Pulse Ox 98% on R/A; aa5 10:00 BP 125 / 85; Pulse 65; Resp 17; Pulse Ox 95% ; bp 10:51 BP 127 / 54; Pulse 54; Resp 17; Pulse Ox 95% ; bp ED Course: 04:55 Patient arrived in ED. am4 05:09 Triage completed. sg 05:10 Arm band placed on. sg 05:18 Jian Samson MD is Attending Physician. [facility] 05:25 Skyler Urbina RN is Primary Nurse. rv 05:30 Patient has correct armband on for positive identification. Bed in low position. Call ea light in reach. Pulse ox on. NIBP on. 05:31 Patient maintains SpO2 saturation greater than 95% on room air. ea 07:34 Attending Physician role handed off by Jian Samson MD genny 07:34 Chandana Clark MD is Attending Physician. genny 07:40 Initial lab(s) drawn, by ny, sent to lab. Inserted saline lock: 20 gauge in right aa5 forearm, using aseptic technique. Blood collected. 08:02 XRAY Chest (1 view) In Process Unspecified. EDMS 08:52 Robson Charles MD is Referral Physician. genny 09:55 Troponin (emerg Dept Use Only): 9am Sent. iw 10:51 No provider procedures requiring assistance completed. IV discontinued, intact, bp bleeding controlled, No redness/swelling at site. Pressure dressing applied. Administered Medications: 07:54 Drug: Aspirin 81 mg Route: PO; aa5 10:18 Follow up: Response: No adverse reaction aa5 07:54 Drug: morphine 4 mg Route: IVP; Site: right forearm; aa5 08:05 Follow up: Response: No adverse reaction aa5 07:54 Drug: Zofran (Ondansetron) 4 mg Route: IVP; Site: right forearm; aa5 08:05 Follow up: Response: No adverse reaction aa5 09:20 Drug: NS 0.9% 1000 ml Route: IV; Rate: 1 bolus; Site: right forearm; aa5 10:54 Follow up: IV Status: Completed infusion; IV Intake: 1000ml bp 09:20 Drug: ToPROL XL 25 mg Route: PO; aa5 10:54 Follow up: Response: No adverse reaction bp Intake: 10:54 IV: 1000ml; Total: 1000ml. bp Outcome: 08:53 Discharge ordered by . genny 10:51 Discharged to home ambulatory. bp 10:51 Condition: stable 10:51 Discharge instructions given to patient, Instructed on discharge instructions, follow up and referral plans. medication usage, Demonstrated understanding of instructions, follow-up care, medications, Prescriptions given X 1. 10:55 Patient left the ED. bp Signatures: Dispatcher [employer] EDMS Ted Gonzalez RN RN Chandana Levi MD MD cha Williams, Irene RN Lilibeth Barcenas RN RN aa5 Lorena Chacon RN RN ea Peltier, Brian RN RN Skyler Bah RN Jian Garibay MD MD [facility] Ximena Mays
[2020-11-12] MEDS ORDERED: NA CHLORIDE 0.9% 1,000 ML ONE (09:51)
[2020-11-12] MEDS ORDERED: METOPROLOL XL 50 MG TAB PO ONE (09:51)
[2020-11-12 11:16] LABS: Urine Blood NEGATIVE (NEG); Urine Glucose NEGATIVE (NEG); Urine Protein NEGATIVE (NEG); Urine pH 7.5 (5.0-7.0)
--- NOTE | 2020-11-12 11:47 | RAD REPORT ---
EXAM DESCRIPTION: RAD - Chest Single View - 11/12/2020 8:02 am CLINICAL HISTORY: CHEST PAIN Chest pain. COMPARISON: Chest Pa And Lat (2 Views) dated 10/13/2018; Chest Single View dated 08/07/2018; Chest Sin gle View dated 07/01/2017; Chest Pa And Lat (2 Views) dated 03/21/2017 FINDINGS: Portable technique limits examination quality. Interstitial prominence is seen throughout the lungs. The heart is upper limit normal in size. No dis placed fractures. IMPRESSION: Mild interstitial pulmonary edema.
[2020-11-12 15:15] VITALS: TEMP 98
[2020-11-12 15:20] VITALS: O2SAT 95
[2020-11-12 15:21] VITALS: BP 127/54
== END 2020-11-12 10:55 | disposition home or self-care (01) ==
LOC: ER 04:52
DX: R07.89 Other chest pain (principal); F31.9 Bipolar disorder, unspecified; I10 Essential (primary) hypertension; Z88.2 Allergy status to sulfonamides; Z88.5 Allergy status to narcotic agent; Z88.6 Allergy status to analgesic agent; Z98.84 Bariatric surgery status; Z91.040 Latex allergy status; Z91.041 Radiographic dye allergy status; Z91.048 Other nonmedicinal substance allergy status
CPT/HCPCS: 96361; 93005 ×2; 85025; 80048; 36415; 83735; 85610; 80076; 81003; 84484 ×2; 83690; 83880; 71045; 96375; 96374; 99285; J7030; J2405

== ENCOUNTER 2022-01-20 11:42 | Emergency (ER) | payer OTHER ==
--- OUTSIDE RECORDS SUMMARY | 2022-01-20 11:48 | XMS REPORT | Continuity of Care Document ---
:1970 Author Organization [facility] t Address [address] [place] [address] Care Team Providers Name Role Phone Brittany Guardado DO Primary Care Physician Naman BOWLES Attending Clinician Unavailable Isaiah LARES Attending Clinician Unavailable Keyanna Arango Attending Clinician Unavailable Bowles MD, A Attending Clinician KW, EC Attending Clinician Unavailable JESSI BUCHANAN Attending Clinician Unavailable JOE CARVALHO M.D. Attending Clinician Unavailable AUNG Attending Clinician Unavailable Naman BOWLES Admitting Clinician Unavailable Keyanna Arango Admitting Clinician Unavailable JOE CARVALHO M.D. Admitting Clinician Unavailable AUNG Admitting Clinician Unavailable Payers Payer Name Policy Type Policy Number Effective Date Expiration Date Carmelo pimentel [facility] [id number] 2015 MEDICAID 00:00:00 Problems Condition Condition Condition Status Onset Resolution Last Treating Co mments Source Name Details Category Date Date Treatment Clinician Date Chronic Chronic Disease Active Univers fatigue fatigue 2-11 ity of 00:00: Medical Branch History of History of Disease Active U nivers bariatric bariatric 2-11 ity of surgery surgery 00:00: Medical Branch Constipati Constipati Disease Active U nivers on, on, 2-11 ity of unspecifie unspecifie 00:00: [place] ministerio d d 00 Medical constipati constipati Br anch on type on type Abdominal Abdominal Disease Active Overview: Univers pain, pain, 1-21 Formattin ity of epigastric epigastric 00:00: g of this 00 note Medical might be Branch different from the original. Added automatic ally from request for surgery [id number] Gastroesop Gastroesop Disease Active Overview : Univers hageal hageal 1-21 Formattin ity of reflux reflux 00:00: g of this [place] disease disease 00 note Medical without without might be Branch esophagiti esophagiti different s s from the original. Added automatic ally from request for surgery [id number] Nauseous Nauseous Disease Active Overview: Un juan 1-21 Formattin ity of 00:00: g of this [place] 00 note Medical might be Branch different from the original. Added automatic ally from request for surgery [id number] Intractabl Intractabl Disease Active U nivers e nausea e nausea 9-19 ity of and and 00:00: [place] vomiting vomiting 00 Medica l Branch Proctalgia Proctalgia Disease Active U nivers fugax fugax 2-08 ity of 00:00: [place] 00 Medical Branch Abnormal Abnormal Disease Active Unive rs EKG EKG 4-23 ity of 00:00: [place] 00 Medical Branch Vitamin D Vitamin D Disease Active Uni vers deficiency deficiency 4-24 it y of 00:00: [place] [facility] Morbid Morbid Disease Active Univers obesity obesity 3-21 ity of 00:00: [place] [facility] Essential Essential Disease Active Uni vers hypertensi hypertensi 3-21 it y of on, benign [place], benign [place] [facility] [place] Dyslipidem Dyslipidem Disease Active Overview : Univers ia ia 3- Formattin ity of 00:00: g of this note Medical might be Branch different from the original. Diet controlle d Bipolar 1 Bipolar 1 Disease Active Uni vers disorder disorder 11-26 ity of 00:00: [place] [facility] Type 2 Type 2 Disease Active Overview: Univer s diabetes diabetes Formattin ity of mellitus mellitus g of this [place] as without without note Medical complicati complicati might be Branch ons ons different from the original. ICD10 Diagnosis Term Pick Remover Utility PIERRE PIERRE Disease Active Overview: Univer s (obstructi (obstructi Formattin ity of ve sleep ve sleep g of this [place] as apnea) apnea) note Medical might be Branch different from the original. CPAP at 16 cm H2O GERD GERD Disease Active Univers (gastroeso (gastroeso it y of phageal phageal [place] reflux reflux Medical disease) disease) Branch Hypothyroi Hypothyroi Disease Active U nivers d d ity of [facility] Depression Depression Disease Active U nivers ity of [facility] Asthma Asthma Disease Active Univers ity of [facility] Seasonal Seasonal Disease Active Unive rs allergies allergies ity of [facility] IBS IBS Disease Active Univers (irritable (irritable it y of bowel bowel [place] syndrome) syndrome) [facility] Branch SISI (iron SISI (iron Disease Active Uni vers deficiency deficiency it y of anemia) anemia) [facility] Allergies, Adverse Reactions, Alerts Allergy Allergy Status Severity Reaction(s) Onset Inactive Treating Comm ents Source Name Type Date Date Clinician Iodinate DA Active SV SHORTNESS OF HC A d BREATH 01-18 [place] Contrast 00:00: [facility] 00 dic Hosp[facility] NSAIDS DA Active ND had gastric [facility] (Non-Aris bypass 01-18 [place] roidal 00:00: [facility] Anti-Inf 00 dic lamma Hospita l Sulfa DA Active [place] HIVES [facility] (Sulfona 01-18 [place] mide 00:00: Orthope Antibiot 00 dic ics) Hospita l tramadol DA Active SV RASH, TONGUE HC A AND THROAT - [place] SWELLING 00:00: Orthope 00 dic Hospita l [place] DA Active SV RASH, [facility] c SWELLING OF 01-18 [place] THROAT AND 00:00: Orthop e TONGUE 00 dic Hospita l Iodinate DA Active SV SHORTNESS OF HC A d BREATH -26 [place] Contrast 00:00: [facility] Sulfa DA Active [place] HIVES [facility] (Sulfona 4-26 [place] mide 00:00: [facility] Antibiot 00 Region[facility] ics) l [facility] Iodine Drug Active Other (See Fainting, [facility] Comments) [facility] Iodide [facility]: "okay w/ Medical Containi 00 benadryl" Cente r ng Products Nitrofur Drug Active Rash [facility] antoin Allergy 02-12 [facility] Monohyd/ 00:00: Medical M-Cryst 00 Center Nsaids Drug Active Other (See bariatric [facility] (Non-Aris Allergy Comments) 02-12 pt [facility] roidal 00:00: Medical Anti-Inf 00 Center lammator y Drug) Sulfa Drug Active Rash [facility] (Sulfona Allergy 02-12 [facility] mide 00:00: Medical Antibiot 00 Center ics) [place] Drug Active Rash [facility] c Allergy 02-12 [facility] 00:00: Medical 00 Center IV DA Active SV HIVES, [facility] CONTRAST ITCHING, 10-25 [place] TROUBLE 00:00: Orthope BREATHING. 00 dic Hospita l NSIADS DA Active U HAD GASTRIC [facility] [place]PASS [place] SURGERY 00:00: [address] Center Nsaids Propensi Active Unknown - 2017-09 Not Unive rs (Non-Aris ty to See comments 0-01 allowed i ty of roidal adverse 00:00: to have [place] Anti-Inf reaction 00 Medica l lammator s Branch y Drug) NSAIDS Drug Active High Unknown-Cmnt 2017-09 Univ ers (NON-ARIS Class 0-01 ity of ROIDAL 00:00: [place] ANTI-INF 00 Medical LAMMATOR Branch Y DRUG) Nsaids Propensi Active Unknown - 2017-09 Not Unive rs (Non-Aris ty to See comments 0- allowed i ty of roidal adverse 00:00: to have [place] Anti-Inf reaction 00 Medica l lammator s Branch y Drug) iodine DA Active SV ITCHING 2017- [facility] 2-13 [place] 00:00: Orthope 00 dic Hospita l iodine DA Active SV 2017-0 [facility] 2-13 Clear 00:00: [facility] 00 [facility] Sulfa DA Active [place] HIVES [facility] (Sulfona 3-11 [place] mide 00:00: Orth[facility] Antibiot 00 dic ics) [facility] [place] DA Active ND RASH 2016- [facility] c 3-11 [place] 00:00: Orthope 00 dic Hospita Sulfa DA Active [place] 2017 [facility] (Sulfona 3-11 Clear mide 00:00: [facility] Antibiot 00 [facility] [place] DA Active ND 2017 HCA c 3-11 Clear 00:00: [facility] 00 [facility] latex DA Active ND 2017-0 HCA 3-11 Clear 00:00: [facility] 00 [facility] [place] Propensi Active Method i c ty to 04-25 st adverse 00:00: Hospita reaction 00 l s to drug Sulfa Propensi Active Methodi (Sulfona ty to 04-25 st mide adverse 00:00: Hospita Antibiot reaction 00 l ics) s to drug Iodine Propensi Active Methodi ty to 18 st adverse 00:00: Hospita reaction 00 l s to drug Iodine Propensi Active Swelling Patient Unive rs And ty to 09-08 said that ity of Iodide adverse 00:00: she can [place] Containi reaction 00 and has Medic al ng s taken IV Branch Products contrast successfu lly before as long as she is premedica gabriella with Benadryl beforehan d. She denies any history of anaphylax is and said that the reaction she usually has when not medicated with Benadryl is hives. IODINE Drug Active Swelling 2016-0 Univers AND Class 1-01 ity of IODIDE 00:00: [place] CONTAINI 00 Medical NG Branch PRODUCTS Iodine Propensi Active Swelling Patient Unive rs And ty to 09-08 said that ity of Iodide adverse 00:00: she can [place] Containi reaction 00 and has Medic al ng s taken IV Branch Products contrast successfu lly before as long as she is premedica gabriella with Benadryl beforehan d. She denies any history of anaphylax is and said that the reaction she usually has when not medicated with Benadryl is hives. Sulfa Propensi Active Hives Univers (Sulfona ty to 3-13 ity of mide adverse 00:00: [place] Antibiot reaction 00 Medica l ics) s Branch SULFA Drug Active Hives Univers (SULFONA Class 3-13 ity of MIDE 00:00: [place] ANTIBIOT 00 Medical ICS) Branch Sulfa Propensi Active Hives Univers (Sulfona ty to 3-13 ity of mide adverse 00:00: [place] Antibiot reaction 00 Medica l ics) s Branch [place] DRUG Active Hives Univers C INGREDI 3-21 ity of TROMETHA 00:00: [place] MINE 00 Medical Branch [place] Propensi Active Hives Univer s c ty to 3-21 ity of Trometha adverse 00:00: [place] mine reaction 00 Medical s Branch Social History Social Habit Start Date Stop Date Quantity Comments Source History [facility] Hoahaoism Alcohol Frequency Hospita l History [facility] Hoahaoism Alcohol Std Drinks Hospit al History [facility] Hoahaoism Alcohol Binge Hospital Exposure to 2021-11-14 2021-12-14 Not sure [place] of SARS-CoV-2 (event) 00:00:00 15:26:00 [facility] Alcohol intake 2019-07-13 2019-07-13 Current drinker [facility] dist 00:00:00 00:00:00 of alcohol Hospital (finding) Alcohol Comment 2019-07-04 2019-07-04 socially Hoahaoism 00:00:00 00:00:00 Hospital History [facility] 2019-05-27 2019-05-27 3 University o f Financial 00:00:00 00:00:00 [facility] History [facility] Food 2019-05-27 2019-05-27 2 Univers ity of Worry 00:00:00 00:00:00 [place] [facility] History SDOH Food 2019-05-27 2019-05-27 2 Univers ity of Scarcity 00:00:00 00:00:00 [place] [facility] History [facility] 2019-05-27 2019-05-27 1 University o f Transport Med 00:00:00 00:00:00 [place] Medic al Branch History [facility] 2019-05-27 2019-05-27 1 University o f Transport Non-Med 00:00:00 00:00:00 [facility] Tobacco use and 2016-04-25 2016-04-25 Smokeless Hoahaoism exposure 00:00:00 00:00:00 tobacco non-user Hospital Cigarettes smoked 2013-06-24 2013-06-24 Univers ity of current (pack per 00:00:00 00:00:00 [facility]) - Reported Branch Cigarette 2013-06-24 2013-06-24 University of pack-years 00:00:00 00:00:00 [facility] History of tobacco 2013-05-28 Cigarette Smoker University of use 00:00:00 [facility] Sex [birth year] At [birth year] Hoahaoism 00:00:00 00:00:00 Hospital Smoking Status Start Date Stop Date Source Never smoker [facility] Former smoker 2013-06-24 00:00:00 2013-06-24 00:00:00 Universi ty of [facility] Medications Ordered Filled Start Stop Current Ordering Indication Dosage Frequency Signature Comments Components Source Medication Medication Date Date Medication? Clinician (SIG) Name Name LACTULOSE Yes [id number] 15mL TAKE 15 ML Univers 10 gram/15 4-25 BY MOUTH 2 ity of mL solution 00:00: (TWO) TIMES Medical DAILY Branch NEEDED FOR CONSTIPATI ON. diazePAM Yes [id number] 2mg Take 1 Un juan (VALIUM) 2 4-13 tablet by ity of mg tablet 00:00: mouth 2 (two) Medical times Branch daily as needed for Anxiety. diazePAM Yes [id number] 2mg Take 1 Un juan (VALIUM) 2 4-13 tablet by ity of mg tablet 00:00: mouth 2 (two) Medical times Branch daily as needed for Anxiety. diazePAM 2022-0 Yes [id number] 2mg Take 1 Un juan (VALIUM) 2 4-13 tablet by ity of mg tablet 00:00: mouth 2 [place] 00 (two) Medical times Branch daily as needed for Anxiety. acetaminoph 2021- Yes [id number] 1{tbl} Take 1 U nivers en-codeine 4-08 04-16 tablet by ity of 300-30 mg 00:00: 04:59 mouth [place] tablet 00 :00 every 4 Medical (four) Branch hours as needed for Pain (scale 4-6) or Pain (scale 7-10) for up to 7 days. Indication s: chronic pain acetaminoph 2021- Yes [id number] 1{tbl} Take 1 U nivers en-codeine 4-08 04-16 tablet by ity of 300-30 mg 00:00: 04:59 mouth [place] tablet 00 :00 every 4 Medical (four) Branch hours as needed for Pain (scale 4-6) or Pain (scale 7-10) for up to 7 days. Indication s: chronic pain gabapentin 2021-0 Yes [id number] 300mg Take 1 Univers 300 mg 3-14 [id number] capsule by ity o f capsule 00:00: mouth 3 00 (three) Medical times Branch daily. methylPREDN 2022-0 Yes [id number] Take by Univers ISolone 4 3-14 [id number] mouth ity of mg tablets 00:00: [place]INSTRU [place] 00 CTIONS. Medical follow Branch package directions gabapentin 2021-0 Yes [id number] 300mg Take 1 Univers 300 mg 3-14 [id number] capsule by ity o f capsule 00:00: mouth 3 00 (three) Medical times Branch daily. methylPREDN 2022-0 Yes [id number] Take by Univers ISolone 4 3-14 [id number] mouth ity of mg tablets 00:00: [place]INSTRU [place] 00 CTIONS. Medical follow Branch package directions gabapentin 2021-0 Yes [id number] 300mg Take 1 Univers 300 mg 3-14 [id number] capsule by ity o f capsule 00:00: mouth 3 [place] 00 (three) Medical times Branch daily. methylPREDN 2022-0 Yes [id number] Take by Univers ISolone 4 3-14 [id number] mouth ity of mg tablets 00:00: [place]-INSTRU [place] 00 CTIONS. Medical follow Branch package directions gabapentin 2021-0 Yes [id number] 300mg Take 1 Univers 300 mg 3-14 [id number] capsule by ity o f capsule 00:00: mouth 3 [place] 00 (three) Medical times Branch daily. methylPREDN 0 Yes [id number] Take by Univers ISolone 4 3-14 [id number] mouth ity of mg tablets 00:00: [place]INSTRU [place] 00 CTIONS. Medical follow Branch package directions magnesium Yes [id number] 400mg Take 400 Univers oxide 400 2-08 mg by ity of mg 00:00: mouth [place] magnesium 00 daily. Medical Tab Branch ergocalcife Yes [id number] Take 1 Univers rol, 2-08 capsule by ity of vitamin d2, 00:00: mouth [place] 1,250 mcg 00 weekly. Medical (50,000 Branch unit) capsule ferrous 2021- Yes [id number] 324mg Take 1 Uni vers gluconate 2-08 tablet by ity o f 324 mg 00:00: mouth [place] (37.5 mg 00 daily. Medical iron) Branch tablet magnesium Yes [id number] 400mg Take 400 Univers oxide 400 2-08 mg by ity of mg 00:00: mouth [place] magnesium 00 daily. Medical Tab Branch ergocalcife Yes [id number] Take 1 Univers rol, 2-08 capsule by ity of vitamin d2, 00:00: mouth [place] 1,250 mcg 00 weekly. Medical (50,000 Branch unit) capsule ferrous 2021-0 Yes [id number] 324mg Take 1 Uni vers gluconate 2-08 tablet by ity o f 324 mg 00:00: mouth [place] (37.5 mg 00 daily. Medical iron) Branch tablet magnesium 2021-0 Yes [id number] 400mg Take 400 Univers oxide 400 2-08 mg by ity of mg 00:00: mouth [place] magnesium 00 daily. Medical Tab Branch ergocalcife 0 Yes [id number] Take 1 Univers rol, 2-08 capsule by ity of vitamin d2, 00:00: mouth [place] 1,250 mcg 00 weekly. Medical (50,000 Branch unit) capsule ferrous 2021-0 Yes [id number] 324mg Take 1 Uni vers gluconate 2-08 tablet by ity o f 324 mg 00:00: mouth [place] (37.5 mg 00 daily. Medical iron) Branch tablet magnesium Yes [id number] 400mg Take 400 Univers oxide 400 2-08 mg by ity of mg 00:00: mouth [place] magnesium 00 daily. Medical Tab Branch ergocalcife 0 Yes [id number] Take 1 Univers rol, 2-08 capsule by ity of vitamin d2, 00:00: mouth [place] 1,250 mcg 00 weekly. Medical (50,000 Branch unit) capsule ferrous Yes [id number] 324mg Take 1 Uni vers gluconate 2-08 tablet by ity o f 324 mg 00:00: mouth [place] (37.5 mg 00 daily. Medical iron) Branch tablet lactulose Yes [id number] 15mL Take 15 mL Univers 10 gram/15 1-31 by mouth 2 ity of mL solution 00:00: (two) [place] 00 times Medical daily as Branch needed for Constipati on. levothyroxi Yes [id number] 25ug Take 1 Univers ne 25 mcg 1-31 tablet by ity o f tablet 00:00: mouth [place] 00 every Medical morning. Branch linaCLOtide Yes [id number] 290ug Take 1 Univers (LINZESS) 1-31 capsule by ity of 290 mcg Cap 00:00: mouth [place] 00 daily. Medical Branch loratadine Yes [id number] 10mg Take 1 Univers 10 mg 1-31 tablet by ity of tablet 00:00: mouth [place] 00 daily. Medical Branch proMETHazin Yes [id number] 25mg Take 1 Univers e 25 mg 1-31 tablet by ity of tablet 00:00: mouth 2 [place] 00 (two) Medical times Branch daily as needed for Nausea and Vomiting (N/V). SERTraline 0 Yes [id number] 100mg Take 1 Univers 100 mg 1-31 tablet by ity of tablet 00:00: mouth [place] 00 daily. Medical Branch pantoprazol 0 Yes [id number] 40mg Take 1 Univers e 40 mg EC 1-31 tablet by ity of tablet 00:00: mouth 2 [place] 00 (two) Medical times Branch daily. lactulose 0 Yes [id number] 15mL Take 15 mL Univers 10 gram/15 1-31 by mouth 2 ity of mL solution 00:00: (two) [place] 00 times Medical daily as Branch needed for Constipati on. levothyroxi 0 Yes [id number] 25ug Take 1 Univers ne 25 mcg 1-31 tablet by ity o f tablet 00:00: mouth [place] 00 every Medical morning. Branch linaCLOtide 0 Yes [id number] 290ug Take 1 Univers (LINZESS) 1-31 capsule by ity of 290 mcg Cap 00:00: mouth [place] 00 daily. Medical Branch loratadine Yes [id number] 10mg Take 1 Univers 10 mg 1-31 tablet by ity of tablet 00:00: mouth [place] 00 daily. Medical Branch proMETHazin Yes [id number] 25mg Take 1 Univers e 25 mg 1-31 tablet by ity of tablet 00:00: mouth 2 (two) Medical times Branch daily as needed for Nausea and Vomiting (N/V). SERTraline Yes [id number] 100mg Take 1 Univers 100 mg 1-31 tablet by ity of tablet 00:00: mouth [place] 00 daily. Medical Branch pantoprazol Yes [id number] 40mg Take 1 Univers e 40 mg EC 1-31 tablet by ity of tablet 00:00: mouth 2 (two) Medical times Branch daily. lactulose Yes [id number] 15mL Take 15 mL Univers 10 gram/15 1-31 by mouth 2 ity of mL solution 00:00: (two) [place] 00 times Medical daily as Branch needed for Constipati on. levothyroxi 0 Yes [id number] 25ug Take 1 Univers ne 25 mcg 1-31 tablet by ity o f tablet 00:00: mouth [place] 00 every Medical morning. Branch linaCLOtide 0 Yes [id number] 290ug Take 1 Univers (LINZESS) 1-31 capsule by ity of 290 mcg Cap 00:00: mouth [place] 00 daily. Medical Branch loratadine 0 Yes [id number] 10mg Take 1 Univers 10 mg 1-31 tablet by ity of tablet 00:00: mouth [place] 00 daily. Medical Branch proMETHazin 0 Yes [id number] 25mg Take 1 Univers e 25 mg 1-31 tablet by ity of tablet 00:00: mouth 2 [place] 00 (two) Medical times Branch daily as needed for Nausea and Vomiting (N/V). SERTraline Yes [id number] 100mg Take 1 Univers 100 mg 1-31 tablet by ity of tablet 00:00: mouth [place] 00 daily. Medical Branch pantoprazol 0 Yes [id number] 40mg Take 1 Univers e 40 mg EC 1-31 tablet by ity of tablet 00:00: mouth 2 00 (two) Medical times Branch daily. levothyroxi Yes [id number] 25ug Take 1 Univers ne 25 mcg 1-31 tablet by ity o f tablet 00:00: mouth [place] 00 every Medical morning. Branch linaCLOtide 0 Yes [id number] 290ug Take 1 Univers (LINZESS) 1-31 capsule by ity of 290 mcg Cap 00:00: mouth [place] 00 daily. Medical Branch loratadine Yes [id number] 10mg Take 1 Univers 10 mg 1-31 tablet by ity of tablet 00:00: mouth 00 daily. Medical Branch proMETHazin Yes [id number] 25mg Take 1 Univers e 25 mg 1-31 tablet by ity of tablet 00:00: mouth 2 (two) Medical times Branch daily as needed for Nausea and Vomiting (N/V). SERTraline Yes [id number] 100mg Take 1 Univers 100 mg 1-31 tablet by ity of tablet 00:00: mouth 00 daily. Medical Branch pantoprazol Yes [id number] 40mg Take 1 Univers e 40 mg EC 1-31 tablet by ity of tablet 00:00: mouth 2 (two) Medical times Branch daily. lactulose 2021- No [id number] 15mL Take 15 mL Univers 10 gram/15 -31 04-25 by mouth 2 it y of mL solution 00:00: 00:00 (two) [place] 00 :00 times Medical daily as Branch needed for Constipati on. TOPIRAMATE 0 Yes [id number] TAKE 1 Univers 50 mg 1-21 TABLET BY ity of tablet 00:00: MOUTH [place] 00 TWICE A Medical DAY Branch TOPIRAMATE 2021-0 Yes [id number] TAKE 1 Univers 50 mg 1-21 TABLET BY ity of tablet 00:00: MOUTH [place] 00 TWICE A Medical DAY Branch TOPIRAMATE 2021-0 Yes [id number] TAKE 1 Univers 50 mg 1-21 TABLET BY ity of tablet 00:00: [facility] TWICE A Medical DAY Branch TOPIRAMATE 2021-0 Yes [id number] TAKE 1 Univers 50 mg 1-21 TABLET BY ity of tablet 00:00: [facility] TWICE A Medical DAY Branch LISINOPRIL 2020-1 Yes TAKE 1 Unive rs 20 mg 2-13 TABLET BY ity of tablet 00:00: [facility] EVERY DAY Medical Branch LISINOPRIL 2020-1 Yes TAKE 1 Unive rs 20 mg 2-13 TABLET BY ity of tablet 00:00: [facility] EVERY DAY Medical Branch LISINOPRIL 2020-1 Yes TAKE 1 Unive rs 20 mg 2-13 TABLET BY ity of tablet 00:00: [facility] EVERY DAY Medical Branch LISINOPRIL 1 Yes TAKE 1 Unive rs 20 mg 2-13 TABLET BY ity of tablet 00:00: [facility] EVERY DAY Medical Branch fluticasone 2020-0 Yes Univer s propionate 6-22 ity of 50 00:00: [place] mcg/actuati 00 Medical on nasal Branch spray fluticasone 0 Yes Univer s propionate 6-22 ity of 50 00:00: [place] mcg/actuati 00 Medical on nasal Branch spray fluticasone 2020-0 Yes Univer s propionate 6-22 ity of 50 00:00: [place] mcg/actuati 00 Medical on nasal Branch spray fluticasone 2020-0 Yes Univer s propionate 6-22 ity of 50 00:00: [place] mcg/actuati 00 Medical on nasal Branch spray SYMBICORT 2020-0 Yes TAKE 2 Univer s 160-4.5 1-18 PUFFS BY ity of mcg/actuati 00:00: MOUTH [place] on inhaler 00 TWICE A Medica l DAY Branch SYMBICORT 2020-0 Yes TAKE 2 Univer s 160-4.5 1-18 PUFFS BY ity of mcg/actuati 00:00: MOUTH [place] on inhaler 00 TWICE A Medica l DAY Branch SYMBICORT 2020-0 Yes TAKE 2 Univer s 160-4.5 1-18 PUFFS BY ity of mcg/actuati 00:00: MOUTH [place] on inhaler 00 TWICE A Medica l DAY Branch SYMBICORT Yes TAKE 2 Univer s 160-4.5 1-18 PUFFS BY ity of mcg/actuati 00:00: MOUTH [place] on inhaler 00 TWICE A Medica l DAY Branch ESTRADIOL 1 2019-09 Yes [id number] TAKE 1 Univers mg tablet 0-17 TABLET BY ity o f 00:00: MOUTH [place] 00 EVERY DAY Medical Branch ESTRADIOL 1 2019-09 Yes [id number] TAKE 1 Univers mg tablet 0-17 TABLET BY ity o f 00:00: MOUTH [place] 00 EVERY DAY Medical Branch ESTRADIOL 1 2019-09 Yes [id number] TAKE 1 Univers mg tablet 0-17 TABLET BY ity o f 00:00: MOUTH [place] 00 EVERY DAY Medical Branch ESTRADIOL 1 2019-09 Yes [id number] TAKE 1 Univers mg tablet 0-17 TABLET BY ity o f 00:00: MOUTH [place] 00 EVERY DAY Medical Branch zolpidem 2018-09 Yes 1{tbl} Take 1 Unive rs (AMBIEN) 5 1-01 tablet by ity of mg tablet 00:00: [place] 00 bedtime as Medical needed. Branch zolpidem 2018-09 Yes 1{tbl} Take 1 Unive rs (AMBIEN) 5 1-01 tablet by ity of mg tablet 00:00: mouth [place] 00 bedtime as Medical needed. Branch zolpidem 2018-09 Yes 1{tbl} Take 1 Unive rs (AMBIEN) 5 1-01 tablet by ity of mg tablet 00:00: mouth [place] 00 bedtime as Medical needed. Branch zolpidem 2018-09 Yes 1{tbl} Take 1 Unive rs (AMBIEN) 5 1-01 tablet by ity of mg tablet 00:00: [place] 00 bedtime as Medical needed. Branch levothyroxi 2018-09 Yes 25ug Take 25 Met hodi ne 0-[address] (SYNTHROID) 22:40: mouth. Hosp anastasiia 25 mcg 33 l tablet LINZESS 290 2018-09 Yes 290ug QD Take 290 M ethodi mcg capsule 0-[address] 00:00: mouth Hospita 00 daily. l pantoprazol 2018-09 Yes 40mg Take 40 mg Methodi e 0-[address] (PROTONIX) 00:00: Hospita 40 MG EC 00 l tablet estradiol Yes 1mg QD Take 1 mg Met hodi (ESTRACE) 1 9-[address] MG tablet 00:00: daily. Hospit a 00 l cetirizine Yes 10mg QD Take 10 mg M ethodi (ZyrTEC) 10 9-[address] MG tablet 00:00: daily. Hospit a 00 l hydrOXYzine Yes TAKE 4 Meth jose g (ATARAX) 50 8-[address] MG tablet 00:00: [facility] Hospit a 00 DAILY l estradiol Yes 1mg QD Take [address] [facility] (ESTRACE) 1 6-07 by mouth Luke [facility] MG tablet 09:56: daily. Medica l [address] [place] levothyroxi Yes 25ug Take [address] ne 6-07 mcg by [facility] (SYNTHROID, 09:56: mouth Medic al LEVOTHROID) 34 Every Center 25 MCG morning on tablet an empty stomach. cetirizine Yes 10mg QD Take [address] (ZYRTEC) 10 6-07 by mouth Luke s MG tablet 09:56: daily. Medica l 34 [place] lisinopril Yes 10mg QD Take [address] (PRINIVIL,Z 6-07 by mouth Luke s ESTRIL) 10 09:56: daily. Medic al MG tablet 34 Center linaclotide Yes 290ug QD Take [address] (LINZESS) 6-07 mcg [facility] 290 mcg Cap 09:56: mouth Medic al 34 daily. [place] pantoprazol Yes 40mg Q.5D Take [address] [facility] e 6-07 by mouth 2 [facility] (PROTONIX) 09:56: (two) Medica l 40 MG 34 times Center tablet daily. eszopiclone Yes 3mg QD Take [address] 3 mg tablet 6-07 by mouth Luke s 09:56: nightly Medical 34 Take Center immediatel y before bedtime . hydrOXYzine Yes 100mg QD Take [address] (ATARAX) 50 6-07 mg by [facility] MG tablet 09:56: mouth Medical 34 nightly. [place] albuterol Yes 1{puff} Inhale [address] HFA 6-07 puff by [facility] (VENTOLIN 09:56: mouth via Med ical HFA) 90 34 inhaler Center mcg/actuati every 6 on inhaler (six) hours as needed for Wheezing. estradiol 2019-0 Yes 1mg QD Take [address] [address] (ESTRACE) 1 6-07 by mouth Luke s MG tablet 09:56: daily. Medica l 34 Center levothyroxi 2019-0 Yes 25ug Take [address] ne 6-07 mcg by [facility] (SYNTHROID, 09:56: mouth Medic al LEVOTHROID) 34 Every Center 25 MCG morning on tablet an empty stomach. cetirizine 2018-0 Yes 10mg QD Take [address] (ZYRTEC) 10 6-07 by mouth Luke s MG tablet 09:56: daily. Medica l 34 [place] lisinopril 2018-0 Yes 10mg QD Take [address] (PRINIVIL,Z 6-07 by mouth Luke s ESTRIL) 10 09:56: daily. Medic al MG tablet 34 Center linaclotide 0 Yes 290ug QD Take [address] (LINZESS) 6-07 mcg [facility] 290 mcg Cap 09:56: mouth Medic al 34 daily. Center pantoprazol 2018-0 Yes 40mg Q.5D Take [address] e 6-07 by mouth 2 [facility] (PROTONIX) 09:56: (two) Medica l 40 MG 34 times Center tablet daily. eszopiclone 2018-0 Yes 3mg QD Take [address] 3 mg tablet 6-07 by mouth Luke s 09:56: nightly Medical 34 Take Center immediatel y before bedtime . hydrOXYzine 2019-0 Yes 100mg QD Take [address] (ATARAX) 50 6-07 mg by [facility] MG tablet 09:56: mouth Medical 34 nightly. Center albuterol 2019-0 Yes 1{puff} Inhale [address] HFA 6-07 puff by [facility] (VENTOLIN 09:56: mouth via Med ical HFA) 90 34 inhaler Center mcg/actuati every 6 on inhaler (six) hours as needed for Wheezing. lisinopril 2018-0 Yes 10mg 10 mg. Metho di (PRINIVIL) 2-10 st 20 mg 00:00: Hospita tablet 00 l PROAIR HFA Yes 1{puff} Inhale 1 [facility] 90 4-04 Puff every ity of mcg/actuati 00:00: 4 (four[place] inhaler 00 hours as Medic al needed. Branch PROAIR HFA Yes 1{puff} Inhale 1 [facility] 90 4-04 Puff every ity of mcg/actuati 00:00: 4 (four[place] inhal[place] 00 hours as Medic al needed. Branch PROAIR HFA Yes 1{puff} Inhale 1 [facility] 90 4-04 Puff every ity of mcg/actuati 00:00: 4 (four) [place] inhaler 00 hours as Medic al needed. Branch PROAIR HFA Yes 1{puff} Inhale 1 [facility] 90 4-04 Puff every ity of mcg/actuati 00:00: 4 (four) [place] inhaler 00 hours as Medic al needed. [place] Immunizations Ordered Filled Immunization Date Status Comments [facility] e Immunization Name Name SARS-COV-2 COVID-19 2021-09-17 Completed Unive rsity of PFIZER VACCINE 00:00:00 [facility] Influenza Virus 2021-09-17 Completed Universit y of Vaccine 00:00:00 [facility] SARS-COV-2 COVID-19 2021-09-17 Completed Unive rsity of PFIZER VACCINE 00:00:00 [facility] Influenza Virus 2021-09-17 Completed Universit y of Vaccine 00:00:00 [facility] SARS-COV-2 COVID-19 2021-09-17 Completed Unive rsity of PFIZER VACCINE 00:00:00 [facility] Influenza Virus 2021-09-17 Completed Universit y of Vaccine 00:00:00 [facility] SARS-COV-2 COVID-19 2021-09-17 Completed Unive rsity of PFIZER VACCINE 00:00:00 [facility] Influenza Virus 2021-09-17 Completed Universit y of Vaccine 00:00:00 [facility] SARS-COV-2 COVID-19 2021-01-16 Completed Unive rsity of CHELSEA/J&J VACCINE 00:00:00 [facility] SARS-COV-2 COVID-19 2021-01-16 Completed Unive rsity of CHELSEA/J&J VACCINE 00:00:00 [facility] SARS-COV-2 COVID-19 2021-01-16 Completed Unive rsity of CHELSEA/J&J VACCINE 00:00:00 [facility] SARS-COV-2 COVID-19 2021-01-16 Completed Unive rsity of CHELSEA/J&J VACCINE 00:00:00 [facility] Influenza Virus 2020-07-13 Completed Universit y of Vaccine Recomb Quad 00:00:00 [facility], Preserv and ABX Branc h Free 18-64 YRS Influenza Virus 2020-07-13 Completed Universit y of Vaccine Recomb Quad 00:00:00 [facility], Preserv and ABX Branc h Free 18-64 YRS Influenza Virus 2020-07-13 Completed Universit y of Vaccine Recomb Quad 00:00:00 [facility], Preserv and ABX Branc h Free 18-64 YRS Influenza Virus 2020-07-13 Completed Universit y of Vaccine Recomb Quad 00:00:00 [facility], Preserv and ABX Branc h Free 18-64 YRS Influenza Virus 2019-06-30 Completed Universit y of Vaccine 00:00:00 [facility] Influenza Virus 2019-06-30 Completed Universit y of Vaccine 00:00:00 [facility] Influenza Virus 2019-06-30 Completed Universit y of Vaccine 00:00:00 [facility] Influenza Virus 2019-06-30 Completed Universit y of Vaccine 00:00:00 [facility] Influenza Virus 2018-06-08 Completed Universit y of Vaccine Quad ID 00:00:00 [facility] 18-64 YRS [place] Influenza Virus 2018-06-08 Completed Universit y of Vaccine Quad ID 00:00:00 [facility] 18-64 YRS [place] Influenza Virus 2018-06-08 Completed Universit y of Vaccine Quad ID 00:00:00 [facility] 18-64 YRS [place] Influenza Virus 2018-06-08 Completed Universit y of Vaccine Quad ID 00:00:00 [facility] [age] YRS [place] Influenza Virus 2017-06-21 Completed Universit y of Vaccine 00:00:00 [facility] Influenza Virus 2017-06-21 Completed Universit y of Vaccine 00:00:00 [facility] Influenza Virus 2017-06-21 Completed Universit y of Vaccine 00:00:00 [facility] Influenza Virus 2017-06-21 Completed Universit y of Vaccine 00:00:00 [facility] TDAP 2017-03-19 Completed University of 00:00:00 [facility] TDAP 2017-03-19 Completed University 00:00:00 [facility] TDAP 2017-03-19 Completed University of 00:00:00 [facility] TDAP 2017-03-19 Completed University 00:00:00 [facility] Vital Signs Vital Name Observation Time Observation Value Comments Source Body temperature 2021-12-14 20:46:00 36.06 [facility] ersity [facility] Body height 2021-12-14 20:46:00 157.5 cm [facility] Body weight 2021-12-14 20:46:00 99.791 kg [facility] BMI 2021-12-14 20:46:00 40.24 kg/m2 [facility] Procedures This patient has no known procedures. Plan of Care Planned Activity Planned Date Details Comments Source Future Scheduled 2021-09-19 COVID-19 VACCINE (1) [facility] Test 15:48:31 [code = COVID-19 VACCINE (1)] Future Scheduled 2021-09-19 Hepatitis C screening [facility] Test 15:48:31 (procedure) [code = 841131487] Future Scheduled 2021-09-[address] [facility] Test 15:48:31 malignant neoplasm of cervix (procedure) [code = 433762604] Future Scheduled 2021-09-[address] [facility] Test 15:48:31 SCREENING [code = BREAST CANCER SCREENING] Future Scheduled 2021-09-19 COLONOSCOPY SCREENING [facility] Test 15:48:31 [code = COLONOSCOPY SCREENING] Future Scheduled 2021-09-19 SHINGLES VACCINES [facility] Test 15:48:31 (#1) [code = SHINGLES VACCINES (#1)] Future Scheduled 2021-09-19 [facility]ACCINE [facility] 15:48:31 [code = INFLUENZA VACCINE] Future Scheduled 2021-05-[address] [facility] Test 00:00:00 (#1) [code = [facility] Center INFLUENZA VACCINE (#1)] Future Scheduled 2021-05-[address] [facility] Test 00:00:00 (#1) [code = Medical Center INFLUENZA VACCINE (#1)] Future Scheduled 2020-09-[address] [facility] Test 00:00:00 (12+) [code = Medical Center DEPRESSION SCREENING (12+)] Future Scheduled 2020-09-[address] [facility] Test 00:00:00 (12+) [code = [facility] Center DEPRESSION SCREENING (12+)] Future Scheduled 2019 SHINGLES VACCINES ([address] [facility] Test 00:00:00 of 2) [code = Medical Center SHINGLES VACCINES (1 of 2)] Future Scheduled 2019 SHINGLES VACCINES ([address] [facility] Test 00:00:00 of 2) [code = [facility] Center SHINGLES VACCINES (1 of 2)] Future Scheduled [address] [facility] Test 00:00:00 (procedure) [code = [facility] [id number]] Future Scheduled [address] [facility] Test 00:00:00 (procedure) [code = [facility] [id number]] Future Scheduled [address] [facility] Test 00:[facility]:00 malignant neoplasm of Medica l Center cervix (procedure) [code = 367264001] Future Scheduled [address] [facility] Test 00:00:00 malignant neoplasm of Medica l Center cervix (procedure) [code = 410787966] Future Scheduled 1988 DTAP/TDAP/TD VACCINES [facility] Test 00:00:00 (1 - Tdap) [code = Medical C enter DTAP/TDAP/TD VACCINES (1 - Tdap)] Future Scheduled 1988 DTAP/TDAP/TD VACCINES [facility] Test 00:00:00 (1 - Tdap) [code = Medical C enter DTAP/TDAP/TD VACCINES (1 - Tdap)] Future Scheduled 1987 HEPATITIS C [facility]CRE[facility]ING [facility] Test 00:00:00 [code = HEPATITIS C Medical Center SCREENING] Future Scheduled 1987 HEPATITIS C [facility] Test 00:00:00 [code = HEPATITIS C Medical Center SCREENING] Future Scheduled 1981 COVID-19 VACCINE (1) [facility] Test 00:00:00 [code = COVID-[address] VACCINE (1)] Future Scheduled 1981 COVID-19 VACCINE (1) [facility] Test 00:00:00 [code = COVID-[address] VACCINE (1)] Future Scheduled [address] [facility] Test 00:00:00 [facility] of [facility] breast (procedure) [code = 505313475] Future Scheduled [address] [facility] Test 00:00:00 malignant ne[facility] of [facility] colon (procedure) [code = 882160351] Future Scheduled [address] [facility] Test 00:00:00 malignant ne[facility] of [facility] breast (procedure) [code = 024609685] Future Scheduled [address] [facility] Test 00:00:00 malignant neoplasm of [facility] colon (procedure) [code = 665389014] Encounters Start End Encounter Admission Attending Care Care Encounter Source Date/Time Date/Time Type Type Clinicians Facility Department ID 2021-12-31 Outpatient KYLE [facility] [id number] Univers 13:41:48 CHAMP servinetienne [facility] 2017-05-22 Inpatient [facility] [id number] St. 16:23:00 [facility] 2022-04-08 2022-04-08 Outpatient Keyanna LARES [facility] [id number] Univers 09:00:00 09:00:00 JUDITH chapa [facility] 2022-01-18 2022-01-18 Inpatient Eulalia Black NORMA MAS [id number] [facility] 05:50:00 17:53:00 [facility] 2022-01-18 2022-01-18 Inpatient Elualia Black RIOTO MAS [id number] [facility] 05:50:00 05:49:00 [id number] [facility] 2022-01-01 2022-01-01 Outpatient Eulalia Black HCACL LABO [id number] [facility] 16:46:00 16:46:00 [id number] [facility] 2022-01-01 2022-01-01 Outpatient Eulalia Black HCAWU REFE [id number] [facility] 14:24:00 14:24:[id number] [facility] 2021-12-27 2021-12-27 Telephone [facility] [id number] Univers 00:00:00 00:00:00 Champ A SPECIALTY [id number] ity of CARE [id number] [facility] [place] AT [phone] Mo dicmirtha ARREDONDO 198 [facility] 2021-12-26 2021-12-26 Refill [facility] [id number] Univers 00:00:00 00:00:00 Judith Thompson MULTISPEC [id number] ity of IALTY [id number] [facility] [place] [phone] [address] [facility] 2021-12-19 2021-12-19 Patient [facility] [id number] Univers 00:00:00 00:00:00 Secure Msg Judith Thompson MULTISPEC [id number] ity of IALTY [id number] [facility] [place] [phone] [facility] AND [address] [facility] 2021-12-14 2021-12-14 Office [facility] [id number] Univers 15:50:00 17:14:37 Visit Champ A SPECIALTY [id number] ity of CARE [id number] [facility] [place] AT [phone] Mo randellmirtha ARREDONDO 198 [facility] 2021-12-07 2021-12-07 Outpatient KOJO, HCACL LABO [id number] [facility] 19:02:00 19:02:00 [place] [id number] [facility] 2021-12-07 2021-12-07 Outpatient KW, HCAKW LABO [id number] [facility] 18:31:00 18:31:00 [place] [id number] [facility] 2019-01-11 2019-01-11 Emergency E MHBL MHBL [id number] [facility]BL 23:33:00 23:33:00 2017-12-23 2017-12-23 Emergency E AUNG [facility] [id number] 15:29:00 15:29:00 [facility] 2017-07-30 2017-07-30 Outpatient [facility] [id number] 12:09:00 12:09:00 [facility] 2017-07-09 2017-07-09 Outpatient [facility] [id number] 00:01:00 00:01:00 [facility] 2017-06-17 2017-06-17 Outpatient [facility] [id number] 18:46:00 18:46:00 [facility] 2017-06-08 2017-06-08 Outpatient [facility] [id number] 00:01:00 00:01:00 [facility] 2017-06-06 2017-06-06 Outpatient [facility] [id number] 21:11:00 21:11:00 [facility] Results Test Description Test Time Test Comments Results Result [facility] e Comments - XR KNEE 1 OR 2 V 2022-01-18 LT 15:41:00 [facility] 1970 Sex: F Patient Name: JAI HARDEN Unit No: [id number] EXAMS: CPT CODE: [id number] XR KNEE 1 OR 2 V LT 91947 IMAGES PROVIDED: 2 FINDINGS: Postoperative changes from left total knee arthoplasty demonstrated without evidence of immediate complication. No acute fracture is visualized. IMPRESSION: Postoperative exam as above. at 1541 Reported and signed by: Lexa Benitez M.D. CC: Eulalia Arango MD Technologist: SHELIA SILVA (RT.R) Transcribed D/ (4058) PorscheSLJ [facility] NAME: JAI HARDEN [address] [facility] PHYS: EAMONBERNIEIsrael Eulalia Arango MD : 1970 AGE: 51 SEX: F [place] [address] LOC: Y.O20 A PHONE #: [phone] EXAM DATE: 01/18/2022 STATUS: ADM IN FAX #: [phone] RAD #: D/C DT PAGE 1 Signed Report Patient Name: JAI HARDEN Unit No: [id number] EXAMS: CPT CODE: [id number] XR KNEE 1 OR 2 V LT 21098 <Continued> Orig Print D/T: S: 01/18/2022 (1504) [facility] NAME: JAI HARDEN [address] [facility] PHYS: DONTRELL. - Eulalia Arango MD : 1970 AGE: 51 SEX: F [place] [address] LOC: Y.O20 A PHONE #: [phone] EXAM DATE: 01/18/2022 STATUS: ADM IN FAX #: [phone] RAD #: D/C DT PAGE 2 Signed Report GLYCOSYLATED HEMOGLOBIN (HA1C) 2022-01-01 16:17:00 Test Item Value Reference Range Interpretation Comme nts GLYCOSYLATED HEMOGLOBIN (HA1C) 5.6 % 4.8-5.9 Any condition that shortens (test code = GLYHGB) erythoc yte survival or decreasesmean erythrocyte age (e.g., recovery from acute blood los s,hemolytic anemai) will falsely lo wer HGBA1c resultsregardle ss of the method used. HGBA1c results frompatients with HbSS, HbCC and HbSc must be interpreted wit hcaution given the pathological pr ocesses, including anemia,increase d red cell turnover, transfusion req uirements, thatadversely i mpact HGBA1c as a marker of long- term glycemiccontrol. Alternative for ms of testing such as fructosaminesho uld be considered for these patients. Any condition that shortens erytho cyte survival or decreasesmean e rythrocyte age (e.g., recovery from a cute blood loss,hemolytic anemia) will falsely lower HGBA1c re sultsregardless of the method used. H GBA1c results from patientswith Hb SS, HbCC, and HbSc must be interpr eted with cautiongiven the pathologica l processes, including anemia,increase d red cell turnover, transfusion req uirements, thatadversely i mpact HGBA1c as a marker of long- term glycemiccontrol. Alternative for ms of testing such as fructosaminesho uld be considered for these patients. DONE AT: [facility] [id number] [facility], [place] [address] GLYCOSYLATED HEMOGLOBIN (HA1C)2022-01-01 16:16:00 Test Item Value Reference Range Interpretation Comments GLYCOSYLATED 5.6 % 4.8-5.9 N Any condition t hat shortens HEMOGLOBIN (HA1C) erythocyte survival or (test code = GLYHGB) decreas esmean erythrocyte age (e.g., saeed very from acute blood los s,hemolytic anemia) will fa lsely lower HGBA1c resultsr egardless of the method used . HGBA1c results from william dianedom HbSS, HbCC, and HbSc must be interpreted with cautiongiven th e pathological pr ocesses, including anemi a,increased red cell turnov er, transfusion req uirements, thatadversely i mpact HGBA1c as a marker of long-term glycemiccontrol . Alternative for ms of testing such as fructosaminesho uld be considered for these patients. COMPREHENSIVE METABOLIC [id number] 13:37:00 Test Item Value Reference Range Interpretation Comments SODIUM (test code = 143 mmol/L 136-145 N NA) POTASSIUM (test code = 3.7 mmol/L 3.5-5.1 N K) CHLORIDE (test code = 108.0 mmol/L 98-107 H CL) CARBON DIOXIDE (test 24.3 mmol/L 21-32 N code = CO2) GLUCOSE (test code = 119 mg/dL 70-110 H GLU) BLOOD UREA NITROGEN 10 mg/dL 7-18 N (test code = BUN) GLOMERULAR FILTRATION 70.2 >60 Unit o f measure: RATE (test code = GFR) mL/mi n/1.73 b2Hzzgjjejr Range:Healthy Adults >90 mL/min/1.73 m2 For Chronic Kidney Disease: St age II Mild Decrease in GFR 60-90 St age III Moderate Decrease in GFR 30-59 Stage IV Severe Decre ase in GFR 15- 29 Stage V Kidney Failure <15 CREATININE (test code 0.85 mg/dL 0.55-1.30 N = CREAT) TOTAL PROTEIN (test 6.7 g/dL 6.4-8.2 N code = PROT) ALBUMIN (test code = 3.4 g/dL 3.4-5.0 N ALB) GLOBULIN (test code = 3.3 g/dL 2.2-4.2 N GLOB) ALBUMIN/GLOBULIN RATIO 1.0 0.7-2.0 N (test code = A/G) CALCIUM (test code = 8.4 mg/dL 8.2-10.1 N CA) BILIRUBIN TOTAL (test 0.20 mg/dL 0.2-1.00 N code = BILT) SGOT/AST (test code = 19.0 U/L 15-37 N AST) SGPT/ALT (test code = 27.0 U/L 12-78 N Please note new ALT) normal range. ALKALINE PHOSPHATASE 109 U/L 46-116 N TOTAL (test code = ALKP) PROTHROMBIN [id number] 13:18:00 Test Item Value Reference Range Interpretation Comments PROTHROMBIN TIME 12.2 secs 9.7-12.5 N Please note new normal PATIENT (test code = range. PTP) INTERNATIONAL NORMAL 1.10 <2.0 RECOMME NDED THERAPEUTIC RATIO (test code = RANGE FOR ORAL INR) ANTICOAGULANTTR EATMENT: CONDI TION INRProphylaxis of venous thrombos is in 2.0 - 3.0 high-risk medic al or surgical patientsTreatme nt of venous thrombos is 2.0 - 3.0Prevention o f embolism 2.0 - 3.0Prevention o f recurrent embol ism, or 3.0 - 4. 5 patients with mechanical pros thetic intravascular v rico IS PATIENT ON ANTICOAGULANTS ? NHas Lab been notified if Patient is on Heparin Drip? NOIf Yes, orderCBC, OCCULT BLOOD, PT every other day NTHROMBOPLASTIN TIME [id number] 13:18:00 Test Item Value Reference Range Interpretation Comments PTT ACTIVATED (test 31.1 secs 26.6-34.6 N Please n ote new code = APTT) normal range. IS PATIENT ON ANTICOAGULANTS ? NCas Lab been notified if Patient is on Heparin Drip? NOIf Yes, orderCBC, OCCULT BLOOD, PT every other day NCBC W/AUTO DIFF 2022-01-01 13:09:00 Test Item Value Reference Range Interpretation Comments WHITE BLOOD CELL (test code = WBC) 4.1 K/mm3 5.8-11.0 L RED BLOOD CELL (test code = RBC) 4.07 M/mm3 4.2-5.4 L HEMOGLOBIN (test code = HGB) 11.0 g/dL 12-16 L HEMATOCRIT (test code = HCT) 35.0 % 37-47 L MEAN CELL VOLUME (test code = MCV) 86 fL 80-98 N MEAN CELL HGB (test code = MCH) 27.0 pg 27-34 N MEAN CELL HGB CONCENTRATION (test 31.4 g/dL 30.8-34.1 N code = MCHC) RED CELL DISTRIBUTION WIDTH (test 14.4 % 11-16 N code = RDW) PLT (test code = PLT) 258 K/mm3 130-400 N MEAN PLATELET VOLUME (test code = 11.6 fL 8.9-12.1 N MPV) NEUTROPHIL % (test code = NT%) 57.1 % 45-70 N LYMPHOCYTE % (test code = LY%) 33.2 % 20-40 N MONOCYTE % (test code = MO%) 6.6 % 3-10 N EOSINOPHIL % (test code = EO%) 2.2 % 1-5 N BASOPHIL % (test code = BA%) 0.7 % 0.0-1.1 N NEUTROPHIL # (test code = NT#) 2.32 K/mm3 2.00-7.50 N LYMPHOCYTE # (test code = LY#) 1.35 K/mm3 1.50-4.00 L MONOCYTE # (test code = MO#) 0.27 K/mm3 0.2-0.8 N EOSINOPHIL # (test code = EO#) 0.09 K/mm3 0.04-0.4 N BASOPHIL # (test code = BA#) 0.03 K/mm3 0.02-0.10 N MANUAL DIFF REQUIRED (test code = NO MANUAL DIFF MDIFF) NUCLEATED RED BLOOD CELL (test 0 % 0-0 N code = NRBC) Basic Metabolic [id number] 06:39:55 Test Item Value Reference Range Interpretation Comments Sodium Level (test code = Sodium 143.0 mmol/L 135.0-145.0 Level) Potassium Level (test code = 4.2 mmol/L 3.5-5.1 Potassium Level) Chloride Level (test code = 104 mmol/L 98-105 Chloride Level) CO2 (test code = CO2) 31 mmol/L 22-29 H Anion Gap (test code = Anion 8 mmol/L 7-16 Gap) BUN (test code = BUN) 8.60 mg/dL 6.00-20.00 Creatinine Level (test code = 0.50 mg/dL 0.50-0.90 Creatinine Level) BUN/Creat Ratio (test code = 17 N BUN/Creat Ratio) Glucose Level (test code = 101 mg/dL 70-115 Glucose Level) Calcium Level (test code = 8.9 mg/dL 8.3-10.5 Calcium Level) Basic Metabolic [id number] 06:39:55 Test Item Value Reference Range Interpretation [...] National Kidney Foundation, http://nkdep.ni h.gov Basic Metabolic [id number] 06:39:55 Test Item Value Reference Range Interpretation [...] ag e have not been validated by [facility] MDRD study and should be interpreted [...] ag e have not been validated by [facility] MDRD study and should be interpreted wit h caution. eGFR R esult Interpretation: eGFR > or = 60 is in the Normal RangeeGF R < 60 may mean kid fadumo diseaseeGFR < 1 5 may mean kidney failure Rang es recommended by the National Kidney Foundation, http://nkdep.ni h.gov Complete Blood Count with [id number] 06:13:20 Test Item Value Reference Range Interpretation [...] code = IPF) 0 % N Automated [id number] 06:13:20 Test Item Value Reference Range Interpretation Comments Neutro Auto (test code = Neutro 52.5 % 36.0-70.0 Auto) Lymph Auto (test code = Lymph Auto) 37.2 % 12.0-44.0 Bent Auto (test code = Bent Auto) 7.6 % 0.0-11.0 Eos, Auto (test code = Eos, Auto) 2.1 % 0.0-7.0 Basophil Auto (test code = Basophil 0.4 % 0.0-2.0 Auto) Neutro Absolute (test code = Neutro 2.5 x10 1.6-7.4 Absolute) Lymph Absolute (test code = Lymph 1.80 x10 .50-4.60 Absolute) Bent Absolute (test code = Bent .37 x10 .00-1.20 Absolute) Eos Absolute (test code = Eos 0.10 x10 0.00-0.74 Absolute) Baso Absolute (test code = Baso 0.02 x10 0.00-0.21 Absolute) IG [id number] 06:13:20 Test Item Value Reference Range Interpretation Comments IG (test code = IG) 0.2 % 0.0-5.0 IG Abs (test code = IG Abs) [address] Abdomen and Pelvis w/o [id number] 19:36:37Patient: JAI HARDEN Date/Time12/12/2018 18:35 CSTReason for Examabd pain s/p gastric bypass;Other (please specify)ReportCT SCAN OF THE ABDOMEN AND PELVIS WITHOUT CONTRASTDictation Location: [id number] HISTORY: Abdominal pain status post gastric bypassTECHNIQUE: [...] Signature): 08/11/2019 7:36 pmXR Chest 1 View Bauksox3264-96-16 18:54:38Patient: JAI HARDEN Date/Time08/11/2019 18:39 CSTReason for ExamChest painReportCHEST X-RAY 1 VIEWDictation Location: [id number] HISTORY:Chest painTechnique:A single frontal view of the [...] Maria VSigned (Electronic Signature): 08/11/2019 6:54 pmLipase [id number] 17:36:02 Test Item Value Reference Range Interpretation Comments Lipase Level (test code = Lipase 20 U/L 13-60 Level) Comprehensive Metabolic Aacqi2610-58-91 17:36:01 Test Item Value Reference Range Interpretation [...] A/G 1.6 ratio N Ratio) Comprehensive Metabolic Smxgs6735-08-69 17:36:01 Test Item Value Reference Range Interpretation [...] National Kidney Foundation, http://nkdep.ni h.gov Comprehensive Metabolic Jozio6450-74-89 17:36:01 Test Item Value Reference Range Interpretation [...] ag e have not been validated by [facility] MDRD study and should be interpreted [...] ag e have not been validated by [facility] MDRD study and should be interpreted wit h caution. eGFR R esult Interpretation: eGFR > or = 60 is in the Normal RangeeGF R < 60 may mean kid fadumo diseaseeGFR < 1 5 may mean kidney failure Rang es recommended by the National Kidney Foundation, http://nkdep.ni h.gov Complete Blood Count with Odqampwusphj3283-01-82 17:32:54 Test Item Value Reference Range Interpretation [...] code = IPF) 0 % N Automated Ragsuvhrzasf1622-15-48 17:32:54 Test Item Value Reference Range Interpretation Comments Neutro Auto (test code = Neutro 54.7 % 36.0-70.0 Auto) Lymph Auto (test code = Lymph Auto) 36.0 % 12.0-44.0 Bent Auto (test code = Bent Auto) 6.8 % 0.0-11.0 Eos, Auto (test code = Eos, Auto) 1.8 % 0.0-7.0 Basophil Auto (test code = Basophil 0.4 % 0.0-2.0 Auto) Neutro Absolute (test code = Neutro 3.9 x10 1.6-7.4 Absolute) Lymph Absolute (test code = Lymph 2.55 x10 .50-4.60 Absolute) Bent Absolute (test code = Bent .48 x10 .00-1.20 Absolute) Eos Absolute (test code = Eos 0.13 x10 0.00-0.74 Absolute) Baso Absolute (test code = Baso 0.03 x10 0.00-0.21 Absolute) IG Viafk5501-68-40 17:32:54 Test Item Value Reference Range Interpretation Comments IG (test code = IG) 0.3 % 0.0-5.0 IG Abs (test code = IG Abs) 0 x10 N POC Tqnubxh7799-12-31 18:09:54 Test Item Value Reference Range Interpretation Comments Glucose POC (test 105 mg/dL 70-115 If you con station engineer main line your code = Glucose POC) patient critically ill, the Ehrmelinda-Accu Check Infrom II meter should not be used for Glucose determination. Draw a venous Glucose and send to the main Lab for analysis. XR Chest 1 View Mpjnzeo4732-98-38 17:13:03Patient: EVA HARDEN Date/Time02/18/2019 17:10 CDTReason for [...] 02/18/2019 5:13 pmCT Abdomen and Pelvis w/o Tdmhhaeb3849-56-96 16:07:13Patient: EVA HARDEN Date/Time02/18/2019 15:54 CDTReason for [...] gastric bypass. No bowel obstruction. Normal appendix.LOCATION: [id number] CT exam was performed according to our [...] A/G 1.7 ratio N Ratio) Comprehensive Metabolic Izibi1337-34-70 12:49:45 Test Item Value Reference Range Interpretation [...] National Kidney Foundation, http://nkdep.ni h.gov Comprehensive Metabolic Ftvjs9224-97-27 12:49:45 Test Item Value Reference Range Interpretation [...] ag e have not been validated by [facility] MDRD study and should be interpreted [...] ag e have not been validated by [facility] MDRD study and should be interpreted wit h caution. eGFR R esult Interpretation: eGFR > or = 60 is in the Normal RangeeGF R < 60 may mean kid fadumo diseaseeGFR < 1 5 may mean kidney failure Rang es recommended by the National Kidney Foundation, http://nkdep.ni h.gov Troponin K3466-17-18 12:39:41 Test Item Value Reference Range Interpretation [...] chronic myocard ial injury. Prothrombin Time and YVB4848-31-09 12:35:43 Test Item Value Reference Range Interpretation Comments Prothrombin Time (test code = 12.5 seconds 9.8-13.4 Prothrombin Time) INR (test code = INR) 1.1 ratio 0.6-1.2 Partial Thromboplastin [id number] 12:35:43 Test Item Value Reference Range Interpretation Comments Partial Thromboplastin Time 33.30 seconds 24.39-37.25 (test code = Partial Thromboplastin Time) Lipase Hztav7506-96-73 12:33:48 Test Item Value Reference Range Interpretation Comments Lipase Level (test code = Lipase 19 U/L 13-60 Level) Automated Jnpqsjkcpcbb3258-09-86 12:26:00 Test Item Value Reference Range Interpretation Comments Neutro Auto (test code = Neutro 84.1 % 36.0-70.0 H Auto) Lymph Auto (test code = Lymph Auto) 9.6 % 12.0-44.0 L Bent Auto (test code = Bent Auto) 5.4 % 0.0-11.0 Eos, Auto (test code = Eos, Auto) 0.6 % 0.0-7.0 Basophil Auto (test code = Basophil 0.2 % 0.0-2.0 Auto) Neutro Absolute (test code = Neutro 8.0 x10 1.6-7.4 H Absolute) Lymph Absolute (test code = Lymph .92 x10 .50-4.60 Absolute) Bent Absolute (test code = Bent .52 x10 .00-1.20 Absolute) Eos Absolute (test code = Eos 0.06 x10 0.00-0.74 Absolute) Baso Absolute (test code = Baso 0.02 x10 0.00-0.21 Absolute) IG Jpxsa3073-63-05 12:26:00 Test Item Value Reference Range Interpretation Comments IG (test code = IG) 0.1 % 0.0-5.0 IG Abs (test code = IG Abs) 0 x10 N Complete Blood Count with Hmsbjqqlcwds3223-48-79 12:25:59 Test Item Value Reference Range Interpretation [...] N NRBC Abs) Urinalysis with Culture, if ylgjoyqaw7062-73-08 12:25:24 Test Item Value Reference Range Interpretation [...] Ind?) rule GL_SJM_UA_MICRO _IN D HCG Qualitative Nklep1220-01-27 12:25:09 Test Item Value Reference Range Interpretation [...] 72 hours. Lot # (test code = [id number] N Lot #) Expiration Dt (test 07/08/2020 N code = Expiration Dt) Neg Control (test Negative code = Neg Control) Pos Control (test Positive code = Pos Control) Internal QC (test Acceptable code = Internal QC) TROPONIN [id number] 09:14:00 Test Item Value Reference Range Interpretation [...] CT, CHEST WITH IV CONTRAST- PE TEST TONDKV1625-86-29 08:15:00Reason for exam:- >CHEST PAINIs the patient [...] findings in the chest. Signed: Storm Awan [facility] Verified Date/Time: 02/12/2019 08:15:11 Reading Location: [facility] Diagnostic Imaging Reading Room - [place] [address] B-TYPE NATRIURETIC FACTOR (BNP)2019-02-12 07:13:00 Test Item Value Reference Range Interpretation Comments B-TYPE NATRIURETIC PEPTIDE (BEAKER) 23 pg/mL 0-100 (test code = 700) TROPONIN [id number] 07:13:00 Test Item Value Reference Range Interpretation [...] acute neurological disease, and persistent tachyarrhythmia.BASIC METABOLIC [id number] 07:09:00 Test Item Value Reference Range Interpretation [...] m DATA TO CALCULA TE ESTIMATED GFR. [id number] 07:07:00 Test Item Value Reference Range Interpretation Comments MAGNESIUM (BEAKER) 2.3 mg/dL 1.6-2.6 Specimen slightly (test code = 627) hemolyzed CREATINE KINASE (CK)2019-02-12 07:07:00 Test Item Value Reference Range Interpretation Comments CREATINE KINASE TOTAL (BEAKER) (test 64 U/L 29-200 code = 380) PT/OUEW5007-14-60 06:43:00 Test Item Value Reference Range Interpretation [...] mechanical heart valves.CBC W/PLT COUNT & AUTO LQQJPQBLYBUP8580-80-49 06:37:00 Test Item Value Reference Range Interpretation [...] = 2801) RAD, CHEST, 1 VIEW, NON [id number] 05:59:00Reason for exam:->CHEST PAINIs the patient ?->UnknownFINAL REPORT Chest, 1 view. History: Chest pain Comparison: None available. Findings: The cardiomediastinal silhouette and pulmonary vasculature are within normal limits for a portable exam. The lungs are clear without evidence of consolidation or effusion. The soft tissues and osseous structures are intact. IMPRESSION: No acute cardiopulmonary abnormality. 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 operator at [facility] [id number] 07:36:00 Test Item Value Reference Range Interpretation Comments GLUBED (test code = 95 MG/DL 70-110 N Performe d by certified GLUBED) ordering machine operator at [facility] [id number] 16:41:00 Test Item Value Reference Range Interpretation Comments GLUBED (test code = 123 MG/DL 70-110 H Performe d by certified GLUBED) ordering machine operator at [facility] - MRI L-SPINE W/O [id number] 13:50:00 FAX: Otilia Butler MD [phone] [place]: St: ADM FAX: Nichole Orozco MD [phone] FAX: Jocelin Jones MD [phone] Name: EVA HARDEN [facility] Guillermo : 1970 Age/S: 48/F [address] [place] [address] Unit #: [id number] Loc: [place] [address] Phys: Jocelin Jones MD Acct: [id number] Dis Date: Status: ADM IN PHONE #: [phone] Exam Date: 01/19/2019 1343 FAX #: [phone] Reason: radiculopathy EXAMS: CPT CODE: [id number] MRI L-SPINE W/O CONT 92057 MRI lumbar spine without contrast 01/19/2019 HISTORY: [...] L4-5. 3. No disc h erniation. SL: [id number] PAGE 1 Signed Report (CONTINUED) FAX: Otilia Butler MD [phone] [place]: St: ADM FAX: Nichole Orozco MD [phone] FAX: Jocelin Jones MD [phone] ----- Name: EVA HARDEN [facility] Johnson : 1970 Age/S: 48/F [address] [place] [address] Unit #: [id number] Loc: [address] [place] [address] Phys: Jocelin Jones MD Acct: [id number] Dis Date: Status: ADM IN PHONE #: [phone] Exam Date: 01/19/2019 1343 FAX #: [phone] Reason: radiculopathy EXAMS: CPT CODE: [id number] MRIL-SPINE W/O CONT 31113 <Continued> at 1350 Reported and signed by: Champ Loya M.D. CC: Otilia Nguyễn MD; Nichole Orozco MD; Jocelin Jones MD Technologist: RT Emil(R)(CT)(MR) Trnazrd Date/Time/By: 01/19/2019 (8202) : By: [email or web address] Orig Print D/T: S:01/19/2019 (9731) PAGE 2 Signed Report- MRI BRAIN W/O [id number] 13:47:00 FAX: Otilia Butler MD [phone] [place]: St: ADM FAX: Nichole Orozco MD [phone] FAX: Jocelin Jones MD [phone] Name: EVA HARDEN : 1970 Age/S: 48/F [address] [place] [address] Unit #: [id number] Loc: [place] [address] Phys: Jocelin Jones MD Acct: [id number] Dis Date: Status: ADM IN PHONE #: [phone] Exam Date: 01/19/2019 1343 FAX #: [phone] Reason: ms EXAMS: CPT CODE: [id number] MRI BRAIN W/O CONT 89629 MRI brain without contrast 01/19/2019 HISTORY: Weakness [...] present. IMPRESSION: No acute intracranial abnormality. SL: [id number] at 1347 Reported and signed by: Champ Loya M.D. CC: Otilia Nguyễn MD; Nichole Orozco MD; Jocelin Jones MD Technologist: Dale Good RT(R)(CT)(MR) Trnscrd Date/Time/By: 01/19/2019 (3119) : By: [email or web address] Orig Print D/T: S: 0 01/19/2019 (1479) PAGE 1 Signed ReportCBC W/AUTO [id number] 08:32:00 Test Item Value Reference Range Interpretation [...] REQUIRED (test code NO = MDIFF) VITAMIN [id number] 08:29:00 Test Item Value Reference Range Interpretation Comments VITAMIN B12 (test code = VITB12) 386 pg/mL 193-986 N C REACTIVE [id number] 07:54:00 Test Item Value Reference Range Interpretation Comments C REACTIVE PROTEIN (test code = < 2.9 MG/L 0.0-2.9 N CRP) SED RATE [id number] 07:52:00 Test Item Value Reference Range Interpretation Comments SED RATE WESTERGREN (test code = 2 mm/hr 0-20 N SEDW) BASIC METABOLIC [id number] 06:56:00 Test Item Value Reference Range Interpretation [...] total (including troponin done in ED)THYROID STIMULATING [id number] 06:56:00 Test Item Value Reference Range Interpretation Comments THYROID STIMULATING 0.18 0.42-5.47 L Results in HORMONE (test code = TSH) mi lli-International Units/mL COMMENTS: 3 troponins total (including troponin done in ED)[id number]-[id number] 06:56:00 Test Item Value Reference Range Interpretation [...] 3 troponins total (including troponin done in ED)[id number] 12:21:00 Test Item Value Reference Range Interpretation [...] ANGIO CHEST 2019-01-18 10:39:00 Name: EVA HARDEN [facility] : 1970 Age/S: 48 / F [address] [place] [address] Blvd Unit #: [id number] Loc: [place] [id number] Phys: Dick Silverman MD Acct: [id number] Dis Date: Status: REG ER PHONE #: [phone] Exam Date: 01/18/2019 1018 FAX #: [phone] Reason: chest pain, SOB, elevated d-dimer EXAMS: CPTCODE: [id number] CT ANGIO CHEST 26263 PROCEDURE: C TA CHEST INDICATION: Chest pain. [...] patient's PAGE 1 Signed Report (CONTINUED) Name: EAV HARDEN : 1970 Age/S: 48 / F [address] [place] [address] Unit #: [id number] Loc: [place] [address] Phys: Dick Silverman MD Acct: [id number] Dis Date: Status: REG ER PHONE #: [phone] Exam Date: 01/18/2019 1018 FAX #: [phone] Reason: chest pain, SOB, elevated d-dimer EXAMS: CPT CODE: [id number] CT ANGIO CHEST 70174 <Continued> symptoms. SL: [id number] at 1039 Reported and signed by: Chuy Diaz M.D. CC: Otilia Nguyễn MD; Dick Silverman MD Technologist:RT Pedro Pablo(R) CTDI: DLP: Trnscb Date/Time: 01/18/2019 (1039) t.JORY Orig Print D/T: S: 01/18/2019 (7660) PAGE 2 Signed Report [id number] 08:12:00 Test Item Value Reference Range Interpretation [...] TESTS AND APPROPRIATECLIN ICAL EUALUATIONS. HEPATIC FUNCTION [id number] 08:09:00 Test Item Value Reference Range Interpretation [...] 98 IUnit/L 20-125 N code = ALKP) [id number] 08:09:00 Test Item Value Reference Range Interpretation Comments LIPASE (test code = LIP) 88 IUnit/L 73-393 N CBC W/AUTO [id number] 08:03:00 Test Item Value Reference Range Interpretation [...] NO = MDIFF) - XR CHEST 2 [id number] 08:01:00 FAX: Otilia Butler MD [phone] [place]: St: [facility] FAX: Dick Silverman MD [phone] Name: EVA HARDEN [facility] Bruno Duncan : 1970 Age/S: 48/F [address] [place] [address] Unit #: [id number] Loc: G.ERS2 [place] [address] Phys: Dick Silverman MD Acct: [id number] Dis Date: Status: REG ER PHONE #: [phone] Exam Date: 01/18/2019 0758 FAX #: [phone] Reason: Chest Pain EXAMS: CPT CODE: [id number] XR CHEST 2 V 79114 2 view chest x-ray performed January 18, [...] MD Technologist: RT Bunny(R) Trnscrd Date/Time/By: 01/18/2019 (08) : By: PorscheNMG Orig Print D/T: S: 01/18/2019 (0804) PAGE 1 Signed ReportTROPONIN-I [id number] 07:45:00 Test Item Value Reference Range Interpretation Comments TROPONIN-I RAPID 0.01 ng/mL 0.00-0.08 N Performed b y certified (test code = ordering machine operator at [facility]) Med Ctr Negative: <= 0.0 8 Positive: [...] changes in trop onin levels characteristic of ND. CHEMISTRY 8 [id number] 07:37:00 Test Item Value Reference Range Interpretation [...] ML/MIN (test code = GFRBED) CHEMISTRY 8 [id number] 07:37:00 Test Item Value Reference Range Interpretation Comments ISTAT-SODIUM (test 142 MMOL/L 134-147 N code = NAP) ISTAT-POTASSIUM (test 3.4 MMOL/L 3.4-5.0 N code = KP) ISTAT-CHLORIDE (test 103 MMOL/L 100-108 N Perform ed by code = CLP) certified opera tor at [facility] Ctr ISTAT CARBON DIOXIDE 24.0 mmol/L 21-33 N (test code = ISTAT-CO2) ISTAT CALCIUM IONIZED 1.21 MG/DL 1.12-1.32 N (test code = ISTAT-SHARRON) ISTAT-GLUCOSE (test 81 MG/DL 70-110 N code = GLUP) ISTAT-BUN (test code = 9 MG/DL 7-18 N BUNP) BEDSIDE CREATININE 0.5 MG/DL 0.6-1.3 L (test code = CREATBED) GLOMERULAR FILTRATION 139 ML/MIN RATE POC (test code = GFRBED) - DUP VEIN UNI/[id number] 15:22:00 Name: EVA HARDEN [facility] : 1970 Age/S: 48 / F [address] [place] [address] Blvd Unit #: [id number] Loc: [place]514[place] Phys: Isis Estrada MD Acct: [id number] Dis Date: 20181029 Status: DIS IN PHONE #: [phone] Exam Date: 10/29/2018 1431 FAX #: [phone] Reason: DVT EXAMS: CPT CODE: [id number] DUP VEIN UNI/LTD 04645 PROCEDURE: UNILATERAL UPPER EXTREMITY VENOUS ULTRASOUND INDICATION: [...] identified in the right upper extremity. SL: [id number] at 1522 Reported and signed by: Candie Chanel M.D. CC: Isis Estrada MD Technologist: Destiny Rosario RDMS(Naman)(BR) Trnscb Da te/Time: 10/29/2018 (1522) t.YUVALR.RH17 Orig Print D/T: S: 10/29/2018 (1525)Probe: PAGE 1 Signed [id number] 11:53:00 Test Item Value Reference Range Interpretation Comments GLUBED (test code = 181 MG/DL 70-110 H Performe d by certified GLUBED) ordering machine operator at [facility] [id number] 09:07:00 Test Item Value Reference Range Interpretation Comments GLUBED (test code = 83 MG/DL 70-110 N Performe d by certified GLUBED) ordering machine operator at [facility] CBC W/AUTO [id number] 08:32:00 Test Item Value Reference Range Interpretation [...] (test code NO = MDIFF) COMPREHENSIVE METABOLIC [id number] 07:51:00 Test Item Value Reference Range Interpretation [...] 20-125 N TOTAL (test code = ALKP) [id number] 07:51:00 Test Item Value Reference Range Interpretation Comments MAGNESIUM (test code = MAG) 2.00 mg/dL 1.8-2.4 N [id number] 20:41:00 Test Item Value Reference Range Interpretation Comments GLUBED (test code = 91 MG/DL 70-110 N Performe d by certified GLUBED) ordering machine operator at [facility] [id number] 19:24:00 Test Item Value Reference Range Interpretation Comments GLUBED (test code = 158 MG/DL 70-110 H Performe d by certified GLUBED) ordering machine operator at [facility] Ctr [id number] 19:24:00 Test Item Value Reference Range Interpretation Comments GLUBED (test code = 106 MG/DL 70-110 N Performe d by certified GLUBED) ordering machine operator at [facility] C[facility] URINALYSIS [id number] 11:17:00 Test Item Value Reference Range Interpretation [...] 0-5 /HPF NONE SEEN SQU) UA CULT [id number] 11:17:00 Test Item Value Reference Range Interpretation Comments UA CULTURE NEEDED? NO, WBC<10 Culture Chk Criteria not met, (test code = Criteria Urine Culture UACULT) cancelled. [id number] 09:11:00 Test Item Value Reference Range Interpretation Comments GLUBED (test code = 85 MG/DL 70-110 N Performe d by certified GLUBED) ordering machine operator at [facility] BASIC METABOLIC [id number] 08:13:00 Test Item Value Reference Range Interpretation [...] code = 8.9 mg/dL 8.0-10.5 N CA) [id number] 08:13:00 Test Item Value Reference Range Interpretation Comments MAGNESIUM (test code = MAG) 2.10 mg/dL 1.8-2.4 N CBC W/AUTO [id number] 07:40:00 Test Item Value Reference Range Interpretation [...] DIFF REQUIRED (test code NO = MDIFF) [id number] 23:54:00 Test Item Value Reference Range Interpretation Comments GLUBED (test code = 243 MG/DL 70-110 H Performe d by certified GLUBED) ordering machine operator at [facility] C[facility] PROTHROMBIN [id number] 07:45:00 Test Item Value Reference Range Interpretation [...] o prevent recurre nt infarct). THROMBOPLASTIN TIME [id number] 07:45:00 Test Item Value Reference Range Interpretation Comments THROMBOPLASTIN TIME 37.6 Seconds 25.0-39.5 N Ther apeutic PARTIAL (test code = Range: 61.8-83.8 PTT) Sec Effective 10/06/2013 BASIC METABOLIC [id number] 07:34:00 Test Item Value Reference Range Interpretation [...] be done morning of Heart CathCBC W/AUTO [id number] 07:31:00 Test Item Value Reference Range Interpretation [...] COMMENTS: To be done morning of Heart [id number] 07:23:00 Test Item Value Reference Range Interpretation Comments GLUBED (test code = 73 MG/DL 70-110 N Performe d by certified GLUBED) ordering machine operator at [facility] C[facility] [id number] 21:06:00 Test Item Value Reference Range Interpretation Comments GLUBED (test code = 145 MG/DL 70-110 H Performe d by certified GLUBED) ordering machine operator at [facility] [id number] 17:23:00 Test Item Value Reference Range Interpretation Comments GLUBED (test code = 82 MG/DL 70-110 N Performe d by certified GLUBED) ordering machine operator at [facility] Ctr - XR UGI W/O [id number] 17:17:00 FAX: Keaton Campbell MD [phone] [place]: St: [facility] FAX: Scooby Wyman MD [phone] Name: EVA HARDEN [facility] : 1970 Age/S: 48/F [address] [place] [address] Unit #: [id number] Loc: G.M105 [place] [address] Phys: Keaton Campbell MD Acct: G [id number] Dis Date: Status: ADM IN PHONE #: [phone] Exam Date: 10/26/2018 1650 FAX #: [phone] Reason: hx of gastric bypass at another institution. C/ EXAMS: CPT CODE: [id number] XR UGI W/O KUB 22733 ESOPHAGRAM AND UPPER GI: HISTORY: History of [...] Signed Report (CONTINUED) FAX: Keaton Campbell MD [phone] [place]: St: [facility] FAX: Scooby Wyman MD [phone] Name: EVA HARDEN [facility] : 1970 Age/S: 48/F [address] [place] [address] Unit #: [id number] Loc: [address] [address] Phys: Keaton Campbell MD Acct: [id number] Dis Date: Status: ADM IN PHONE #: [phone] Exam Date: 10/26/2018 1650 FAX#: [phone] Reason: hx of gastric bypass at another institution. C/ EXAMS: CPT CODE: [id number] XR UGI W/O KUB 89366 <Continued> at 1717 Reported andsigned by: Fidel Gomez M.D. CC: Keaton Campbell MD; Scooby Durant MD Technologist: RT Alpesh(Keyanna) Trnscrd Date/Time/By: 10/26/2018 (9387) : By: EmelyJ Orig Print D/T: S: 10/26/2018 (9264) PAGE 2 Signed [id number] 15:16:00 Test Item Value Reference Range Interpretation Comments CREATININE (test code = CREAT) 0.7 mg/dL 0.6-1.3 [id number] 11:25:00 Test Item Value Reference Range Interpretation Comments GLUBED (test code = 87 MG/DL 70-110 N Performe d by certified GLUBED) ordering machine operator at [facility] BASIC METABOLIC [id number] 08:13:00 Test Item Value Reference Range Interpretation [...] code = 8.7 mg/dL 8.0-10.5 N CA) [id number] 08:08:00 Test Item Value Reference Range Interpretation Comments GLUBED (test code = 82 MG/DL 70-110 N Performe d by certified GLUBED) ordering machine operator at [facility] CBC W/AUTO [id number] 07:50:00 Test Item Value Reference Range Interpretation [...] DIFF REQUIRED (test code NO = MDIFF) [id number] 20:42:00 Test Item Value Reference Range Interpretation Comments GLUBED (test code = 97 MG/DL 70-110 N Performe d by certified GLUBED) ordering machine operator at [facility] [id number] 16:18:00 Test Item Value Reference Range Interpretation Comments GLUBED (test code = 94 MG/DL 70-110 N Performe d by certified GLUBED) ordering machine operator at [facility] - PULM VENT PERF [id number] 15:28:00 FAX: Scooby Wyman MD [phone] [place]: St: ADM FAX: Chris Galindo MD [phone] Name: EVA HARDEN [facility] : 1970 Age/S: 48/F [address] [place] [address] Unit #: [id number] Loc: G[address] [address] Phys: Chris Ny MD Acct: G [id number] Dis Date: Status: ADM IN PHONE #: [phone] Exam Date: 10/25/2018 1514 FAX #: [phone] Reason: CP, HIGH D-DIMER, R/O PE EXAMS: CPT CODE: [id number] PULM VENT PERF IMAG 44298 NUCLEAR MEDICINE VENTILATION/PERFUSION LUNG SCAN HISTORY: Chest [...] By: Jannet Orig Print D/T: S: 10/25/2018 (1538) PAGE 1 Signed ReportGLUBED 2018-10-25 14:32:00 Test Item Value Reference Range Interpretation Comments GLUBED (test code = 107 MG/DL 70-110 N Performe d by certified GLUBED) ordering machine operator at [facility] [id number] 09:53:00 Test Item Value Reference Range Interpretation Comments GLUBED (test code = 108 MG/DL 70-110 N Performe d by certified GLUBED) ordering machine operator at [facility] BASIC METABOLIC [id number] 09:07:00 Test Item Value Reference Range Interpretation [...] code = 8.1 mg/dL 8.0-10.5 N CA) 10/25/18 0630COMMENTS: 3 troponins total (including troponin done in ED)THYROID STIMULATING [id number] 09:07:00 Test Item Value Reference Range Interpretation Comments THYROID STIMULATING 2.30 0.42-5.47 N Results in HORMONE (test code = TSH) mi lli-International Units/mL 10/25/18 0630COMMENTS: 3 troponins total (including troponin done in ED) [id number] 09:07:00 Test Item Value Reference Range Interpretation [...] titative results may jesús y by method. 10/25/1830COMMENTS: 3 troponins total (including troponin done in ED)- CT CHEST W/O [id number] 09:04:00 Name: EVA HARDEN [facility] : 1970 Age/S: 48 / F [address] [place] [address] Blvd Unit #: [id number] Loc: [place], [id number] Phys: Scooby Durant MD Acct: [id number] Dis Date: Status: ADM IN PHONE #: [phone] Exam Date: 10/25/2018 0830 FAX #: [phone] Reason: pleurisy EXAMS: CPTCODE: [id number] CT CHEST W/O CONTRAST 63462 PROCEDURE: CT CHEST WITHOUT CONTRAST INDICATION: Chest [...] 1 Signed Report (CONTINUED) Name: EVA HARDEN [facility] : 1970 Age/S: 48 / F [address] [place] [address] Unit #: [id number] Loc: [place] [address] Phys: Scooby Durant MD Acct: [id number] Dis Date: Status: ADM IN PHONE #: [phone] Exam Date: 10/25/2018 08 FAX #: [phone]: pleurisy EXAMS: CPT CODE: [id number] CT CHEST W/O CONTRAST 51510 <Continued> CC: Scooby Durant MD Technologist:Leonie Azar, RT(R)(CT) CTDI: DLP: Trnscb Date/Time: 10/25/2018 (903) sim [place] Orig Print D/T: S: 10/25/2018 (906) CTDI: DLP: PAGE 2 Signed TeuxcyVAKR7J%2018-10-25 08:45:00 Test Item Value Reference Range Interpretation Comments HGBA1C% (test code = HGBA1C%) 5.5 %A1C 4.8-6.0 N - DUP VEIN [id number] 08:40:00 Name: EVA HARDEN [facility] : 1970 Age/S: 48 / F [address] [place] [address] Unit #: [id number] Loc: [place] [id number] Phys: Scooby Durant MD Acct: [id number] Dis Date: Status: ADM IN PHONE #: [phone] Exam Date: 10/25/2018 08 FAX #: [phone] Reason: elevated ddimer EXAMS: CPTCODE: [id number] DUP VEIN RASHID 00384 PROCEDURE: BILATERAL LOWER EXTREMITY VENOUS ULTRASOUND INDICATION: [...] Michelle Silverman RDMS(Naman) Trnscb Date/Time: 10/25/2018 (0840) tRO Orig Print D/T: S: 10/25/2018 (0843) Probe: PAGE 1 Signed ReportCBC W/AUTO [id number] 08:21:00 Test Item Value Reference Range Interpretation [...] DIFF REQUIRED (test code NO = MDIFF) [id number] 03:19:00 Test Item Value Reference Range Interpretation [...] total (including troponin done in ED)B-TYPE NATRIURETIC [id number] 00:32:00 Test Item Value Reference Range Interpretation Comments B-TYPE NATRIURETIC PEPTIDE (test 20.4 PG/ML 0-100 N code = BNP) - XR CHEST 1 [id number] 00:18:00 FAX: Pam Weinstein DO [phone] [place]: St: REG Name: EVA HARDEN [facility] : 1970 Age/S: 48/F [address] [place] [address] Unit#: [id number] Loc: [place] [address] Phys: Pam Benitez DO Acct: [id number] Dis Date: Status: REG ER PHONE #: [phone] Exam Date: 10/24/2018 2350 FAX #: [phone] Reason: Chest Pain EXAMS: CPT CODE: [id number] XR CHEST 1 V 56808 EXAM: CR, XR chest one view: 10/24/2018 [...] DO Technologist: RT Fanny(R); Oral Mendiola Trnscrd Date/Time/By: 10/25/2018 (0018) : By: [email or web address] Orig Print D/T: S:10/25/2018 (0022) PAGE 1 Signed ReportBASIC METABOLIC [id number] 00:11:00 Test Item Value Reference Range Interpretation [...] 8.3 mg/dL 8.0-10.5 N CA) HEPATIC FUNCTION [id number] 00:11:00 Test Item Value Reference Range Interpretation [...] IUnit/L 20-125 N code = ALKP) PROTHROMBIN [id number] 23:57:00 Test Item Value Reference Range Interpretation [...] Infarction (t o prevent recurre nt infarct). [id number] 23:57:00 Test Item Value Reference Range Interpretation Comments D-DIMER (test 1162 ng/mlFEU <=500 HH THROMBOSIS A ND/OR code = PULMONARY EMBOL ISM AND THE DDIMER) CLINICAL CUT- O FF VALUE FOR EXCLUSION (500 ng/mL FEU) OF THESE CONDIT IONSIS VALIDATED BY TH E LEAD NITRATE PROCESSOR OF THE METHOD. A NEGATIVE D-DI ROBERTO RESULT WHEN COMBINED W ITH A CLINICALASSESSM ENT OF LOW PRETEST PROBABI LITY HAS BEEN SHOWN TO H AVEA HIGH NEGATIVE PREDIC TIVE VALUE OF DVT OR PE. D -DIMER VALUES >500 ng/ mL FEU ARE NOT DIAGNOSTIC FOR DVT, PEor DIC WITHOU T OTHER CONFIRMATORY TE STS AND APPROPRIATECLIN ICAL EUALUATIONS. CBC W/AUTO [id number] 23:50:00 Test Item Value Reference Range Interpretation [...] = MDIFF) CT Abdomen and Pelvis w/o [id number] 23:22:30Patient: EVA HARDEN Date/Time05/16/201823:06 CDTReason for ExamAbdominal painReportCT Abdomen and Pelvis w/o ContrastLOCATION: W70LAVDGPS: Abdominal painCOMPARISON: CT of the abdomen and [...] MD Valdez Alfred ESigned (Electronic Signature): 05/16/201811:22 [id number] 01:00:00 Test Item Value Reference Range Interpretation Comments Lipase (test code = LIP) 28 U/L 13-60 N Comprehensive Metabolic [id number] 01:00:00 Test Item Value Reference Range Interpretation [...] National Kidney Foundation,http ://nkd ep.nih.gov BHCG, Urine, [id number] 00:45:00 Test Item Value Reference Range Interpretation Comments Preg Qual [Ur] (test code = HUHCG) Negative Negative N CBC with [id number] 00:44:00 Test Item Value Reference Range Interpretation [...] code = ALYMPH) 2.6 K/cumm 0.5-4.6 N Bent Abs (test code = AMONO) 0.4 K/cumm 0.0-1.2 N Eos Abs (test code = AEOS) 0.38 K/cumm 0.00-0.74 N Baso Abs (test code = ABASO) 0.1 K/cumm 0.00-0.21 N Urinalysis [id number] 00:32:00 Test Item Value Reference Range Interpretation Comments Color (test code = COLOR) Yellow Yellow,Straw,Pl N yellow Clarity (test code = Sl Cloudy Clear A CLAR) Specific Nichols (test 1.016 1.001-1.035 N code = SPGR) [...] Bacteria (test code = Many /HPF BACT) [id number] 17:42:00 Test Item Value Reference Range Interpretation Comments Lipase (test code = LIP) 28 U/L 13-60 N Comprehensive Metabolic [id number] 17:42:00 Test Item Value Reference Range Interpretation [...] National Kidney Foundation,http ://nkd ep.nih.gov CBC with [id number] 17:00:00 Test Item Value Reference Range Interpretation [...] code = ALYMPH) 2.0 K/cumm 0.5-4.6 N Bent Abs (test code = AMONO) 0.3 K/cumm 0.0-1.2 N Eos Abs (test code = AEOS) 0.34 K/cumm 0.00-0.74 N Baso Abs (test code = ABASO) 0.0 K/cumm 0.00-0.21 N 41808& PELVIS W/O [id number] 16:47:19CT OF THE ABDOMEN AND PELVIS WITHOUT [...] absence of the gallbladder and uterus.POC Glucose, [id number] 07:45:00 Test Item Value Reference Range Interpretation Comments POC Glucose (test 158 mg/dL 70-115 H Notify RN or MDIf you code = POCGLUC) consider you r patient critically ill, the [place] Accu-Chek InformII metershould not be used for Glucose determinations. Draw a venous Glucose and send to the Main Lab for Analysis. POC Glucose, [id number] 20:31:00 Test Item Value Reference Range Interpretation Comments POC Glucose (test 167 mg/dL 70-115 H If you con station engineer main line your code = POCGLUC) patient crit ically ill, the [place] Accu- Chek InformII meters hould not be used for Glu cose determinations. Draw a venous Glucose and send to the Main Lab for Analysis. POC Glucose, [id number] 16:44:00 Test Item Value Reference Range Interpretation Comments POC Glucose (test 148 mg/dL 70-115 H If you con station engineer main line your code = POCGLUC) patient crit ically ill, the [place] Accu- Chek InformII meters hould not be used for Glu cose determinations. Draw a venous Glucose and send to the Main Lab for Analysis. POC Glucose, [id number] 11:25:00 Test Item Value Reference Range Interpretation Comments POC Glucose (test 173 mg/dL 70-115 H If you con station engineer main line your code = POCGLUC) patient crit ically ill, the [place] Accu- Chek InformII meters hould not be used for Glu cose determinations. Draw a venous Glucose and send to the Main Lab for Analysis. POC Glucose, [id number] 07:30:00 Test Item Value Reference Range Interpretation Comments POC Glucose (test 191 mg/dL 70-115 H If you con station engineer main line your code = POCGLUC) patient crit ically ill, the [place] Accu- Chek InformII meters hould not be used for Glu cose determinations. Draw a venous Glucose and send to the Main Lab for Analysis. POC Glucose, [id number] 06:33:00 Test Item Value Reference Range Interpretation Comments POC Glucose (test 181 mg/dL 70-115 H If you con station engineer main line your code = POCGLUC) patient crit ically ill, the [place] Accu- Chek InformII meters hould not be used for Glu cose determinations. Draw a venous Glucose and send to the Main Lab for Analysis. Comprehensive Metabolic [id number] 05:28:00 Test Item Value Reference Range Interpretation [...] National Kidney Foundation,http ://nkd ep.nih.gov CBC with [id number] 05:03:00 Test Item Value Reference Range Interpretation [...] code = ALYMPH) 1.6 K/cumm 0.5-4.6 N Bent Abs (test code = AMONO) 0.3 K/cumm 0.0-1.2 N Eos Abs (test code = AEOS) 0.23 K/cumm 0.00-0.74 N Baso Abs (test code = ABASO) 0.0 K/cumm 0.00-0.21 N POC Glucose, [id number] 21:57:00 Test Item Value Reference Range Interpretation Comments POC Glucose (test 176 mg/dL 70-115 H If you con station engineer main line your code = POCGLUC) patient crit ically ill, the [place] Accu- Chek InformII meters hould not be used for Glu cose determinations. Draw a venous Glucose and send to the Main Lab for Analysis. POC Glucose, [id number] 16:25:00 Test Item Value Reference Range Interpretation Comments POC Glucose (test 148 mg/dL 70-115 H If you con station engineer main line your code = POCGLUC) patient crit ically ill, the [place] Accu- Chek InformII meters hould not be used for Glu cose determinations. Draw a venous Glucose and send to the Main Lab for Analysis. CT NECK SOFT TISSUE WO [id number] 15:49:06Exam: CT soft tissue neck withoutcontrast.Location: W5Qaitoci: Neck painTechnique: Unenhanced spiral slices were taken through the neck.Sagittal and coronal reformations were performed. One or more ofthefollowing radiation dose reduction techniques was used: Automaticexposure control, adjustment of mA and/or KV according to the patient'ssize, and/or utilization of iterative reconstruction technique. Findings:The parotid space, carotid space, churn drill operator space, prevertebral spaceand the fossa of Rosenm?ller are normal. The oral and hypopharynx areunremarkable.The salivary glands are normal. No sialadenitis or sialolithiasis isseen.The larynx and trachea are normal. The cervical and visualized thoracicesophagus is unremarkable. No lymphadenopathy is present in eitherjugular or either posterior chain.The thyroid gland is normal. The soft tissues are unremarkable.Impression:Unremarkable exam.CT CHEST W/O CONTRAST 2017-12-06 15:45:29Exam: CT thorax withoutcontrast.Location: W1Rdasflp: Chest painTechnique: Unenhancedspiral slices were taken from [...] are notedImpression: Left lower lobe pneumonia.POC Glucose, [id number] 11:54:00 Test Item Value Reference Range Interpretation Comments POC Glucose (test 200 mg/dL 70-115 H If you con station engineer main line your code = POCGLUC) patient crit icashelbiey ill, the [place] Accu- Chek InformII meters hould not be used for Glu cose determinations. Draw a venous Glucose and send to the Main Lab for Analysis. POC Glucose, [id number] 07:17:00 Test Item Value Reference Range Interpretation Comments POC Glucose (test 180 mg/dL 70-115 H If you con station engineer main line your code = POCGLUC) patient crit ically ill, the [place] Accu- Chek InformII meters hould not be used for Glu cose determinations. Draw a venous Glucose and send to the Main Lab for Analysis. Comprehensive Metabolic [id number] 06:33:00 Test Item Value Reference Range Interpretation [...] ars ofage have not been validated by bruce isaacs MDRD study and jose thompson be interpretedwith caution.eGFR Re sult Interpretation: eGFR > or = 60 is in t he Normal RangeeGF R < 60 may mean kidney diseaseeGFR < 1 5 may mean kidney failureRange s recommended by the National Kidney Foundation,http ://nkd ep.nih.gov CBC with [id number] 06:13:00 Test Item Value Reference Range Interpretation [...] code = ALYMPH) 1.6 K/cumm 0.5-4.6 N Bent Abs (test code = AMONO) 0.4 K/cumm 0.0-1.2 N Eos Abs (test code = AEOS) 0.31 K/cumm 0.00-0.74 N Baso Abs (test code = ABASO) 0.0 K/cumm 0.00-0.21 N POC Glucose, [id number] 23:37:00 Test Item Value Reference Range Interpretation Comments POC Glucose (test 152 mg/dL 70-115 H If you con station engineer main line your code = POCGLUC) patient crit ically ill, the [place] Accu- Chek InformII meters hould not be used for Glu cose determinations. Draw a venous Glucose and send to the Main Lab for Analysis. POC Glucose, [id number] 17:16:00 Test Item Value Reference Range Interpretation Comments POC Glucose (test 170 mg/dL 70-115 H If you con station engineer main line your code = POCGLUC) patient crit ically ill, the [place] Accu- Chek InformII meters hould not be used for Glu cose determinations. Draw a venous Glucose and send to the Main Lab for Analysis. D-Dimer, [id number] 15:56:00 Test Item Value Reference Range Interpretation Comments D-Dimer, Quant (test code = DDQNT) 1610 ng/mL 0-500 H 24854&PERFUS [id number] 14:47:54Dictation location: R 16Clinical indication: Shortness of [...] of pulmonary emboli.US DUPLX EXT VEINS COMPRS, [id number] 12:42:18 DICTATION LOCATION: [id number]: DVTCOMPARISON: None available.TECHNIQUE: Duplex sonography of theright [...] lower extremity.Small right Gaspar's cyst.XR CHEST 2V, [id number] 11:43:22EXAM: Chest x-ray, 2 viewsLOCATION: [id number]: Chest radiograph 12/04/2017 and 11/26/2017INDICATION : chest [...] silhouette.3. Otherwise, no acute cardiopulmonary abnormalities.POC Glucose, [id number] 07:08:00 Test Item Value Reference Range Interpretation Comments POC Glucose (test 201 mg/dL 70-115 H Notify RN or MDIf you code = POCGLUC) consider you r patient critically ill, the [place] Accu-Chek InformII metershould not be used for Glucose determinations. Draw a venous Glucose and send to the Main Lab for Analysis. POC Glucose, [id number] 00:19:00 Test Item Value Reference Range Interpretation Comments POC Glucose (test 173 mg/dL 70-115 H Notify RN or MDIf you code = POCGLUC) consider you r patient critically ill, the [place] Accu-Chek InformII metershould not be used for Glucose determinations. Draw a venous Glucose and send to the Main Lab for Analysis. POC Glucose, [id number] 21:49:00 Test Item Value Reference Range Interpretation Comments POC Glucose (test 189 mg/dL 70-115 H If you con station engineer main line your code = POCGLUC) patient crit ically ill, the [place] Accu- Chek InformII meters hould not be used for Glu cose determinations. Draw a venous Glucose and send to the Main Lab for Analysis. POC Glucose, [id number] 17:09:00 Test Item Value Reference Range Interpretation Comments POC Glucose (test 193 mg/dL 70-115 H Notify RN or MDIf you code = POCGLUC) consider you r patient critically ill, the [place] Accu-Chek InformII metershould not be used for Glucose determinations. Draw a venous Glucose and send to the Main Lab for Analysis. POC Glucose, [id number] 12:20:00 Test Item Value Reference Range Interpretation Comments POC Glucose (test 166 mg/dL 70-115 H If you con station engineer main line your code = POCGLUC) patient crit ically ill, the [place] Accu- Chek InformII meters hould not be used for Glu cose determinations. Draw a venous Glucose and send to the Main Lab for Analysis. POC Glucose, [id number] 09:03:00 Test Item Value Reference Range Interpretation Comments POC Glucose (test 212 mg/dL 70-115 H If you con station engineer main line your code = POCGLUC) patient crit ically ill, the [place] Accu- Chek InformII meters hould not be used for Glu cose determinations. Draw a venous Glucose and send to the Main Lab for Analysis. Comprehensive Metabolic [id number] 05:54:00 Test Item Value Reference Range Interpretation [...] National Kidney Foundation,http ://nkd ep.nih.gov CBC with [id number] 05:40:00 Test Item Value Reference Range Interpretation [...] code = ALYMPH) 1.7 K/cumm 0.5-4.6 N Bent Abs (test code = AMONO) 0.9 K/cumm 0.0-1.2 N Eos Abs (test code = AEOS) 0.04 K/cumm 0.00-0.74 N Baso Abs (test code = ABASO) 0.0 K/cumm 0.00-0.21 N POC Glucose, [id number] 05:04:00 Test Item Value Reference Range Interpretation Comments POC Glucose (test 202 mg/dL 70-115 H If you con station engineer main line your code = POCGLUC) patient crit ically ill, the [place] Accu- Chek InformII meters hould not be used for Glu cose determinations. Draw a venous Glucose and send to the Main Lab for Analysis. XR CHEST 1 [id number] 03:04:28AFTER HOURS SERVICE ON: 12/04/2017 3:04 AMAP Portable ChestLocation Code [id number]: Status Post Lap Gastric BypassFINDINGS: There are no infiltrates. There are no pleural effusions. There is nopneumotho rax. Cardiac silhouette and mediastinum appear within normallimits. Surgical drain is noted projecting over the mid abdomen and leftupper quadrant.IMPRESSION: No active intrathoracic findings.POC Glucose, Blood 2017-12-04 02:06:00 Test Item Value Reference Range Interpretation Comments POC Glucose (test 213 mg/dL 70-115 H If you con station engineer main line your code = POCGLUC) patient crit ically ill, the [place] Accu- Chek InformII meters hould not be used for Glu cose determinations. Draw a venous Glucose and send to the Main Lab for Analysis. POC Glucose, [id number] 21:15:00 Test Item Value Reference Range Interpretation Comments POC Glucose (test 236 mg/dL 70-115 H If you con station engineer main line your code = POCGLUC) patient crit ically ill, the [place] Accu- Chek InformII meters hould not be used for Glu cose determinations. Draw a venous Glucose and send to the Main Lab for Analysis. POC Glucose, [id number] 16:03:00 Test Item Value Reference Range Interpretation Comments POC Glucose (test 235 mg/dL 70-115 H If you con station engineer main line your code = POCGLUC) patient crit ically ill, the [place] Accu- Chek InformII meters hould not be used for Glu cose determinations. Draw a venous Glucose and send to the Main Lab for Analysis. POC Glucose, [id number] 11:24:00 Test Item Value Reference Range Interpretation Comments POC Glucose (test 269 mg/dL 70-115 H If you con station engineer main line your code = POCGLUC) patient crit ically ill, the [place] Accu- Chek InformII meters hould not be used for Glu cose determinations. Draw a venous Glucose and send to the Main Lab for Analysis. XR CHEST 2 [id number] 18:35:18CLINICAL INFORMATION: Preprocedural evaluation. Checkup..Dictation Location: R [...] National Kidney Foundation,http ://nkd ep.nih.gov CBC with [id number] 18:08:00 Test Item Value Reference Range Interpretation [...] code = ALYMPH) 2.0 K/cumm 0.5-4.6 N Bent Abs (test code = AMONO) 0.3 K/cumm 0.0-1.2 N Eos Abs (test code = AEOS) 0.14 K/cumm 0.00-0.74 N Baso Abs (test code = ABASO) 0.0 K/cumm 0.00-0.21 N US DUPLX EXT VEIN COMPRS, [id number] 13:22:06DICTATION LOCATION: [id number]: I82.409: ACUTE EMBOLISM AND THOMBOS UNSP DEEP [...]
[2022-01-20 12:33] LABS: Absolute Lymphocytes (CBC) 0.8 K/uL (0.7-4.9); Hematocrit 30.9 % (36.0-45.0); Lymphocytes % 12.8 % (15.3-44.8); MPV 9.4 fL (7.6-11.3); RBC Red Blood Cell Count 3.74 M/uL (3.86-4.86)
[2022-01-20 12:48] LABS: Potassium 3.4 mmol/L (3.5-5.1)
[2022-01-20 12:49] LABS: Albumin 3.2 g/dL (3.4-5.0); Bilirubin Total 0.5 mg/dL (0.2-1.0); Protein, Total 7.3 g/dL (6.4-8.2)
[2022-01-20] MEDS ORDERED: MORPHINE 4 MG/ML SYR ONE (13:23)
[2022-01-20] MEDS ORDERED: ONDANSETRON 4 MG/2 ML VIAL ONE (13:23)
[2022-01-20 14:20] LABS: Urine Blood Negative (Negative); Urine Glucose Negative (Negative); Urine Protein Negative (Negative); Urine Specific Gravity 1.015 (1.005-1.030)
[2022-01-20 14:38] LABS: Urine Bacteria 20-50 /HPF (<20); Urine RBC <5 /HPF (NONE SEEN)
[2022-01-20 14:39] LABS: Urine Amorphous Sediment 3+ /HPF (NONE SEEN)
[2022-01-20] MEDS ORDERED: NA CHLORIDE 0.9% 100 ML IV ONE (15:18)
[2022-01-20] MEDS ORDERED: CEFTRIAXONE 1000 MG/VIAL ONE (15:18)
[2022-01-20] MEDS ORDERED: NA CHLORIDE 0.9% 1,000 ML ONE (15:18)
--- NOTE | 2022-01-20 16:19 | EDPHYS ---
Physician Documentation [facility] Name: Kat Aguilar Age: 51 yrs Sex: Female : 1970 Arrival Date: 01/20/2022 Time: 11:47 Bed 4 Private MD: ED Physician Horace Bro HPI: 01/20 12:51 This 51 yrs old Female presents to ER via EMS with complaints of generalized weakness. pm1 12:51 The patient presents to the emergency department with weakness of the entire body, pm1 generalized weakness. Onset: The symptoms/episode began/occurred yesterday. Context: occurred at home. Associated signs and symptoms: Pertinent positives: Decreased p.o. intake, urinary frequency, Pertinent negatives: fever, Chest pain, shortness of breath, headache. Severity of symptoms: in the emergency department the symptoms are worse. The patient has been recently seen by a physician: for apparently unrelated complaints, Patient with left knee replacement on Friday at [facility]. Patient was discharged on the same day and reports decreased p.o. intake and generalized weakness onset yesterday. Patient reports that her generalized weakness worsened today and called EMS. Patient believes that she is dehydrated and is also complaining of urinary frequency. 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 - Social history:: Smoking status: Patient/guardian denies using tobacco. ROS: 12:51 Constitutional: Negative for fever, chills, and weight loss, Cardiovascular: Negative pm1 for chest pain, palpitations, and edema, Respiratory: Negative for shortness of breath, cough, wheezing, and pleuritic chest pain, Abdomen/GI: Negative for abdominal pain, nausea, vomiting, diarrhea, and constipation, Back: Negative for injury and pain, MS/Extremity: Negative for injury and deformity, Skin: Negative for injury, rash, and discoloration. 12:51 Neuro: Positive for Generalized weakness, Negative for numbness, tingling. 12:51 All other systems are negative. Exam: 12:51 Constitutional: This is a well developed, well nourished patient who is awake, alert, pm1 and in no acute distress. Head/Face: Normocephalic, atraumatic. 12:51 Skin: Warm, dry with normal turgor. Normal color with no rashes, no lesions, and no evidence of cellulitis. 12:51 Cardiovascular: Exam negative for acute changes, Rate: normal, Rhythm: regular, Pulses: no pulse deficits are appreciated, Heart sounds: normal. 12:51 Respiratory: Exam negative for acute changes, respiratory distress, shortness of breath, Breath sounds: are clear throughout. 12:51 Abdomen/GI: Exam negative for acute changes, Palpation: abdomen is soft and non-tender, in all quadrants. 12:51 Musculoskeletal/extremity: Extremities: grossly normal except: noted in the Left knee with out any signs of erythema, cellulitis. Postsurgical dressing intact: DVT Exam: No signs of deep vein thrombosis. 12:51 Neuro: Exam negative for acute changes, Orientation: is normal, Mentation: is normal, Motor: moves all fours. Vital Signs: 11:54 BP 149 / 71; Pulse 85; Resp 15; Temp 99(O); Pulse Ox 100% on R/A; Weight 98.88 kg; jl7 Height 5 ft. 2 in. (157.48 cm); Pain 9/10; 12:15 BP 132 / 69 Supine; Pulse 80; jl7 12:18 BP 123 / 79 Sitting; Pulse 87; jl7 12:19 BP 111 / 80 Standing; Pulse 97; jl7 13:33 BP 132 / 68; Pulse 80; Resp 15; Pulse Ox 100% ; jl7 11:54 Body Mass Index 39.87 (98.88 kg, 157.48 cm) jl7 MDM: 11:54 Patient medically screened. pm1 16:17 Data reviewed: vital signs. Data interpreted: Pulse oximetry: on room air is 100 %. pm1 Interpretation: normal. Counseling: I had a detailed discussion with the patient and/or guardian regarding: the historical points, exam findings, and any diagnostic results supporting the discharge/admit diagnosis, lab results, the need for outpatient follow up, to return to the emergency department if symptoms worsen or persist or if there are any questions or concerns that arise at home. 01/20 12:02 Order name: CBC with Diff; Complete Time: 12:51 pm1 01/20 12:02 Order name: CMP; Complete Time: 12:51 pm1 01/20 12:02 Order name: Urine Microscopic Only; Complete Time: 14:40 pm1 01/20 14:20 Order name: Urine Dipstick-Ancillary; Complete Time: 14:26 EDMS 01/20 14:41 Order name: Urine Culture EDMS 01/20 12:02 Order name: IV Saline Lock; Complete Time: 12:27 pm1 01/20 12:02 Order name: Labs collected and sent; Complete Time: 12:27 pm1 01/20 12:02 Order name: Urine Dipstick-Ancillary (obtain specimen); Complete Time: 16:45 pm1 01/20 12:02 Order name: Orthostatic Blood Pressure; Complete Time: 12:27 pm01/20 12:03 Order name: EKG; Complete Time: 12:03 pm1 01/20 12:03 Order name: EKG - Nurse/Tech; Complete Time: 13:01 pm1 Administered Medications: 13:25 Drug: morphine 4 mg Route: IVP; Site: left antecubital; jl7 13:25 Drug: Zofran (Ondansetron) 4 mg Route: IVP; Site: left antecubital; jl7 15:19 Drug: NS 0.9% 1000 ml Route: IV; Rate: 1000 ml; Site: left antecubital; aa5 15:19 Drug: Rocephin (cefTRIAXone) 1 grams Route: IV; Rate: calculated rate; Site: left aa5 antecubital; Disposition Summary: 01/20/22 16:18 Discharge Ordered Location: Home pm1 Problem: new pm1 Symptoms: have improved pm1 Condition: Stable pm1 Diagnosis - UTI/ Urinary tract infection, site not specified pm1 Followup: pm1 - With: Emergency Department - When: As needed - Reason: Worsening of condition Followup: pm1 - With: Private Physician - When: 2 - 3 days - Reason: Recheck today's complaints, Continuance of care, Re-evaluation by your physician Discharge Instructions: - Discharge Summary Sheet pm1 - Dehydration, Adult pm1 - Urinary Tract Infection, Adult pm1 - Rehydration, Adult pm1 Forms: - Medication Reconciliation Form pm1 - Thank You Letter pm1 - Antibiotic Education pm1 - Prescription Opioid Use pm1 Prescriptions: - cefpodoxime 200 mg Oral Tablet - take 1 tablet by ORAL route every 12 hours for 7 days with food; 14 tablet; pm1 Refills: 0, Product Selection Permitted Signatures: Dispatcher [employer] Lilibeth Gagnon, RN RN aa5 Guerrero Solano NP TRAINING MANAGER pm1 Sujit Knox RN RN jl7
--- NOTE | 2022-01-20 16:19 | ER ---
Nurse's Notes [facility] Name: Kat Aguilar Age: 51 yrs Sex: Female : 1970 Arrival Date: 01/20/2022 Time: 11:47 Bed 4 Private MD: Diagnosis: UTI/ Urinary tract infection, site not specified Presentation: 01/20 11:54 Chief complaint: EMS states: Toned out for generalized weakness since this morning. Had jl7 total left knee replacement Friday, discharged home, woke Friday feeling nauseous and ill. Coronavirus screen: At this time, the client does not indicate any symptoms associated with coronavirus-19. Ebola Screen: No symptoms or risks identified at this time. Initial Sepsis Screen: Does the patient meet any 2 criteria? No. Patient's initial sepsis screen is negative. Does the patient have a suspected source of infection? No. Patient's initial sepsis screen is negative. Risk Assessment: Do you want to hurt yourself or someone else? Patient reports no desire to harm self or others. Onset of symptoms was January 19, 2022. Care prior to arrival: Medication(s) given: 1G Tylenol IV IV initiated. 22 GA, in the left antecubital area. 11:54 Method Of Arrival: EMS: [facility] jl7 11:54 Acuity: JADYN 3 jl7 Triage Assessment: 11:57 General: Appears in no apparent distress. uncomfortable, Behavior is calm, cooperative, jl7 appropriate for age. Pain: Complains of pain in low back area Pain does not radiate. Pain currently is 9 out of 10 on a pain scale. Neuro: Level of Consciousness is awake, alert, obeys commands, Oriented to person, place, time, situation. Cardiovascular: Patient's skin is warm and dry. Respiratory: Airway is patent Respiratory effort is even, unlabored, Respiratory pattern is regular, symmetrical. : Reports urinary frequency. Derm: Skin is pink, warm \T\ dry. 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 - Social history:: Smoking status: Patient/guardian denies using tobacco. Screenin:19 Abuse screen: Denies threats or abuse. Denies injuries from another. Nutritional jl7 screening: No deficits noted. Tuberculosis screening: No symptoms or risk factors identified. Fall Risk IV access (20 points). Ambulatory Aid- Crutches/Cane/Walker (15 pts). Total Bueno Fall Scale indicates Low Risk Score (25-44 pts). Fall prevention measures have been instituted. Placed close to Nursing Station 1:1 attendant Assigned to Pt. Frequent Obs/Assesments occuring As available Patient and Family Educated on Fall Prevention Program and strategies. Assessment: 12:00 General: See triage. [facility] 13:33 Reassessment: Assisted pt to restroom via wheelchair. jl7 14:30 Reassessment: Patient appears in no apparent distress at this time. No changes from 7 previously documented assessment. Patient and/or family updated on plan of care and expected duration. Pain level reassessed. Patient is alert, oriented x 3, equal unlabored respirations, skin warm/dry/pink. 15:19 Reassessment: Patient is alert, oriented x 3, equal unlabored respirations, skin aa5 warm/dry/pink. 17:00 Reassessment: Patient appears in no apparent distress at this time. No changes from 7 previously documented assessment. Patient and/or family updated on plan of care and expected duration. Pain level reassessed. Patient is alert, oriented x 3, equal unlabored respirations, skin warm/dry/pink. 18:00 Reassessment: Pt will be discharged once fluids are done infusing. 7 18:50 Reassessment: Patient is alert, oriented x 3, equal unlabored respirations, skin aa5 warm/dry/pink. Vital Signs: 11:54 BP 149 / 71; Pulse 85; Resp 15; Temp 99(O); Pulse Ox 100% on R/A; Weight 98.88 kg; jl7 Height 5 ft. 2 in. (157.48 cm); Pain 9/10; 12:15 BP 132 / 69 Supine; Pulse 80; jl7 12:18 BP 123 / 79 Sitting; Pulse 87; jl7 12:19 BP 111 / 80 Standing; Pulse 97; jl7 13:33 BP 132 / 68; Pulse 80; Resp 15; Pulse Ox 100% ; jl7 11:54 Body Mass Index 39.87 (98.88 kg, 157.48 cm) jl7 ED Course: 11:47 Patient arrived in ED. eb 11:48 Guerrero Solano, NADEEN is PHCP. pm1 11:48 Horace Bro MD is Attending Physician. pm1 11:54 Sujit Knox RN is Primary Nurse. jl7 11:57 Triage completed. jl7 11:57 Arm band placed on right wrist. jl7 12:19 Patient has correct armband on for positive identification. Bed in low position. Call jl7 light in reach. Side rails up X2. Client placed on continuous cardiac and pulse oximetry monitoring. NIBP monitoring applied. Warm blanket given. 12:19 Initial lab(s) drawn, by me, sent to lab. Maintain EMS IV. Dressing intact. Good blood jl7 return noted. Site clean \T\ dry. Gauge \T\ site: 20 L AC. 13:00 EKG done, by ED staff, reviewed by Guerrero Solano NP. dh3 18:50 No provider procedures requiring assistance completed. IV discontinued, intact, aa5 bleeding controlled, No redness/swelling at site. Pressure dressing applied. Administered Medications: 13:25 Drug: morphine 4 mg Route: IVP; Site: left antecubital; jl7 13:25 Drug: Zofran (Ondansetron) 4 mg Route: IVP; Site: left antecubital; jl7 15:19 Drug: NS 0.9% 1000 ml Route: IV; Rate: 1000 ml; Site: left antecubital; aa5 15:19 Drug: Rocephin (cefTRIAXone) 1 grams Route: IV; Rate: calculated rate; Site: left aa5 antecubital; Medication: 12:19 VIS not applicable for this client. jl7 Outcome: 16:18 Discharge ordered by . pm1 18:50 Discharged to home via wheelchair, with significant other. aa5 18:50 Condition: improved 18:50 Discharge instructions given to patient, significant other, Instructed on discharge instructions, follow up and referral plans. medication usage, Demonstrated understanding of instructions, follow-up care, medications, Prescriptions given X 1. 19:04 Patient left the ED. aa5 Signatures: Lilibeth Washington, RN RN aa5 Guerrero Solano NP SPECIAL DELIVERY MAIL CARRIER pm1 Sujit Knox RN RN jl7 Savi Echeverria 3 Jackie Spencer
[2022-01-20 19:37] VITALS: TEMP 99; O2SAT 100
[2022-01-20 19:46] VITALS: BP 132/68
--- NOTE | 2022-01-21 10:05 | EKG ---
Test Date: 2022-01-20 Test Time: 12:54:51 Office Clinician: ALESSIA MEASUREMENT RESULTS: Intervals: Rate: 76 [place]: 134 QRSD: 90 QT: 382 QTc: 429 [place]: P: 39 AZ: 134 QRS: 25 T: 37 INTERPRETIVE STATEMENTS: Normal sinus rhythm Normal ECG Compared to ECG 11/12/2020 09:59:14 Sinus bradycardia no longer present T-wave abnormality no longer present Electronically Signed On 01-21-22 10:02:43 CDT by Robson Charles
== END 2022-01-20 19:04 | disposition home or self-care (01) ==
LOC: ER 11:42
DX: N39.0 Urinary tract infection, site not specified (principal); I10 Essential (primary) hypertension; E11.9 Type 2 diabetes mellitus without complications; F31.9 Bipolar disorder, unspecified; Z88.5 Allergy status to narcotic agent; Z91.040 Latex allergy status; Z91.041 Radiographic dye allergy status; Z91.048 Other nonmedicinal substance allergy status
CPT/HCPCS: 93005; 87088; 85025; 87086; 36415; 87077; 87186; 80053; 96375; 96374; 99284; J7030; J2405; 81003; 81015

== ENCOUNTER 2022-09-18 20:28 | Emergency (ER) | payer OTHER ==
--- OUTSIDE RECORDS SUMMARY | 2022-09-18 20:39 | XMS REPORT | Continuity of Care Document ---
:1970 Author Organization [facility] t Address [address] [place] [address] Care Team Providers Name Role Phone Geo WIGGINSMatthew Primary Care Physician [phone] CHAMP BOWLES Attending Clinician Unavailable ANA MARIA CASTANON Attending Clinician Unavailable JUDITH YUEN Attending Clinician Unavailable Josefa Suarez Attending Clinician Unavailable Brandon Newell MD Attending Clinician NASRA MOLINA Attending Clinician Unavailable Jn FRESCO ARTISTNasra Attending Clinician Pob, [facility] Main Attending Clinician Unavailable LION EMERY Attending Clinician Unavailable Lion Mays Attending Clinician Doctor Unassigned, [place] Attending Clinician Unavailable EDNA REHMAN Attending Clinician Unavailable Jolene Levine PTA Attending Clinician Unavailable Edna Rehman MD Attending Clinician Brandon Hay Attending Clinician Unavailable Sarbjit BOGGS, Yelena Florence Attending Clinician Unavailable Bola Mcintyre PT, Natalie Attending Clinician Unavailable Michelle Levine PTA Attending Clinician Unavailable Sydnie Shaw PT Attending Clinician Unavailable Eulalia Arango Attending Clinician Unavailable Champ Bowles MD Attending Clinician Indira VARMA Attending Clinician Unavailable WILIAN ECHEVARRIA Attending Clinician Unavailable JEAN ALMARAZ Attending Clinician Unavailable RENE MIGUEL Attending Clinician Unavailable 2, [facility] Attending Clinician Unavailable Bernice Quinn Attending Clinician Delicia BLACKMON, Bernice Chambers Attending Clinician [phone] Otilia Arndt MD Attending Clinician Vipin Brito MD Attending Clinician Brandon Iraheta MD Attending Clinician Peace Arango DO Attending Clinician ANDREW GASTELUM Attending Clinician Unavailable DAVIAN AYOUB Attending Clinician Unavailable PAULA NUNO Attending Clinician Unavailable BERNICE PARKS Attending Clinician Unavailable TRACEY MAGANA Attending Clinician Unavailable TOM KAHN Attending Clinician Unavailable JOLENE LEBRON Attending Clinician Unavailable UNKNOWN, ATTENDING Attending Clinician Unavailable BERNICE NESBITT Attending Clinician Unavailable ERMIAS ROOT Attending Clinician Unavailable OTILIA BEASLEY Attending Clinician Unavailable JOMAR SPENCER Attending Clinician Unavailable BERNICE BLANCO Attending Clinician Unavailable TERI JOHNSON Attending Clinician Unavailable SULEMA BUCHANAN Attending Clinician Unavailable JOE CARVALHO M.D., JOE DODGE M.D. Attending Clin ician Unavailable ISIS HORAN Attending Clinician Unavailable CHAMP BOWLES Admitting Clinician Unavailable ANA MARIA CASTANON Admitting Clinician Unavailable Otilia Beasley Admitting Clinician Unavailable JUDITH YUEN Admitting Clinician Unavailable Eulalia Arango Admitting Clinician Unavailable LUZ SINGH, TERI Admitting Clinician Unavailable JOE CARVALHO M.D., JOE DODGE M.D. Admitting Clin ician Unavailable ISIS HORAN Admitting Clinician Unavailable Payers Payer Name Policy Type Policy Number Effective Date Expiration Date [facility] [id number] 2015 MEDICAID 00:00:00 Problems Condition Condition Condition Status Onset Resolution Last Treating Co mments Source Name Details Category Date Date Treatment Clinician Date Status Status Disease Active Univers post total post total 01-28 [place] replac[place] replac[place] 00 Me dical t t Branch Decreased Decreased Disease Active Uni vers range of range of - ity of motion of motion of 00:[place] left [place] left knee 00 Medi chika Branch Decreased Decreased Disease Active Uni vers strength strength 5- ity of involving involving 00:[place] knee joint knee joint 00 Me dical Branch Abnormal Abnormal Disease Active Unive rs gait gait - ity of 00:00: [place] 00 Medical Branch Rupture of Rupture of Disease Active Overview : Univers anterior anterior 4-25 Formattin ity of cruciate cruciate 00:00: g of this [place] as ligament ligament 00 note Medica l of left of left might be Branch knee, knee, different subsequent subsequent from the encounter encounter original. Added automatic ally from request for surgery [id number] Chronic Chronic Disease Active Univers fatigue fatigue 2-11 ity of 00:00: [place] [facility] History of History of Disease Active U nivers bariatric bariatric 2-11 ity of surgery surgery 00:00: 00 Medical Branch Constipati Constipati Disease Active U nivers on, on, 2-11 ity of unspecifie unspecifie [place] 00 Medical constipati constipati Br anch on type on type Abdominal Abdominal Disease Active Overview: Univers pain, pain, 1-21 Formattin ity of epigastric epigastric 00:00: g of this note Medical might be Branch different from the original. Added automatic ally from request for surgery [id number] Gastroesop Gastroesop Disease Active Overview : Univers hageal hageal 1-21 Formattin ity of reflux reflux 00:00: g of this [place] disease disease 00 note Medical without without might be Branch esophagiti esophagiti different s s from the original. Added automatic ally from request for surgery [id number] Nauseous Nauseous Disease Active Overview: Un juan 1-21 Formattin ity of 00:00: g of this note Medical might be Branch different from the original. Added automatic ally from request for surgery [id number] Intractabl Intractabl Disease Active U nivers e nausea e nausea 9-19 ity of and and 00:00: [place] vomiting vomiting 00 Medica l Branch Proctalgia Proctalgia Disease Active U nivers fugax fugax 2-08 ity of 00:00: [place] [facility] Abnormal Abnormal Disease Active Unive rs EKG EKG 4-23 ity of 00:00: [place] [facility] Vitamin D Vitamin D Disease Active Uni vers deficiency deficiency 4-24 it y of 00:00: [place] [facility] Morbid Morbid Disease Active Univers obesity obesity 3-21 ity of 00:00: [place] [facility] Essential Essential Disease Active Uni vers hypertensi hypertensi 3-21 it y of on, benign on, benign 00:[place] [facility] [place] Dyslipidem Dyslipidem Disease Active Overview : Univers ia ia 11-26 Formattin ity of 00:00: g of this [place] 00 note Medical might be Branch different from the original. Diet controlle d Bipolar 1 Bipolar 1 Disease Active Uni vers disorder disorder 11-26 ity of 00:00: [place] [address] Medical Branch Type 2 Type 2 Disease Active Overview: Univer s diabetes diabetes Formattin ity of mellitus mellitus g of this [place] as without without note Medical complicati complicati might be Branch ons ons different from the original. ICD10 Diagnosis Term [employer] PIERRE PIERRE Disease Active Overview: Univer s (obstructi (obstructi Formattin ity of ve sleep ve sleep g of this [place] as apnea) apnea) note Medical might be Branch different from the original. CPAP at 16 cm H2O GERD GERD Disease Active Univers (gastroeso (gastroeso it y of phageal phageal [place] reflux reflux Medical disease) disease) Branch Hypothyroi Hypothyroi Disease Active U steffanie d d ity of [facility] Depression Depression Disease Active U nivers ity of [facility] Asthma Asthma Disease Active Univers ity of [facility] Seasonal Seasonal Disease Active Unive rs allergies allergies ity of [facility] IBS IBS Disease Active Univers (irritable (irritable it y of bowel bowel [place] syndrome) syndrome) [facility] Branch SISI (iron SISI (iron Disease Active Uni vers deficiency deficiency it y of anemia) anemia) [facility] Allergies, Adverse Reactions, Alerts Allergy Allergy Status Severity Reaction(s) Onset Inactive Treating Comm ents Source Name Type Date Date Clinician NSAIDS DA Active [place] had gastric [facility] (Non-Aris bypass 5-13 Clear roidal 00:00: [place] Anti-Inf 00 [facility] lamma [facility] Sulfa DA Active [place] HIVES [facility] (Sulfona 5-13 Clear mide 00:00: [place] Antibiot 00 [facility]) [facility] ketorola DA Active SV RASH, HCA c SWELLING OF 5-13 Clear THROAT AND 00:00: [place] TONGUE 00 [facility] Iodinate DA Active SV SHORTNESS OF HC A d BREATH 5-13 Clear Contrast 00:00: [place] Media [facility] tramadol DA Active SV RASH, TONGUE HC A AND THROAT 5-13 [place] SWELLING 00:00: Orthope 00 dic Hospita l Iodinate DA Active SV SHORTNESS OF HC A d BREATH 4-26 Clear Contrast 00:00: [facility] Media [facility] Sulfa DA Active [place] HIVES [facility] (Sulfona 4-26 Clear mide 00:00: [place] Antibiot 00 [facility] Iodine Drug Active Other (See Fainting[facility] Iodide 00:00: "okay w/ Medical Containi 00 benadryl" Cente r ng Products Nitrofur Drug Active Rash [facility] an[facility] Allergy [facility] Monohyd/ 00:00: Medical M-Cryst 00 Center Nsaids Drug Active Other (See bariatric [facility] (Non-Aris Allergy Comments) 6 pt [facility] roidal 00:00: Medical Anti-Inf 00 Center lammator y Drug) Sulfa Drug Active Rash [facility] (Sulfona Allergy 02-12 [facility] mide 00:00: Medical Antibiot 00 Center ics) [place] Drug Active Rash [facility] c Allergy 02-12 [facility] 00:00: Medical 00 Center Nsaids Drug Active Other (See bariatric [facility] (Non-Aris Allergy Comments) 6 pt [facility] roidal 00:00: Medical Anti-Inf 00 Center lammator y Drug) Sulfa Drug Active Rash [facility] (Sulfona Allergy 02-12 [facility] mide 00:00: Medical Antibiot 00 Center ics) IV DA Active SV HIVES, [facility] CONTRAST ITCHING, 10-25 [place] TROUBLE 00:00: Orthope BREATHING. 00 dic Hospita l NSIADS DA Active U HAD GASTRIC [facility] BYPASS [place] SURGERY 00:00: [address] Center Nsaids Propensi Active Unknown - 2017-09 Not Unive rs (Non-Aris ty to See comments 0-01 allowed i ty of roidal adverse 00:00: to have [place] Anti-Inf reaction 00 Medica l lammator s Branch y Drug) NSAIDS Drug Active High Unknown-Cmnt 2017-09 Univ ers (NON-ARIS Class 0-01 ity of ROIDAL 00:00: [place] ANTI-INF 00 Medical LAMMATOR Branch Y DRUG) iodine DA Active SV ITCHING [facility] 2-13 [place] 00:00: Orthope 00 dic Hospita l iodine DA Active SV HCA 2-13 Clear 00:00: [place] 00 [facility] Sulfa DA Active MO HIVES 2016-0 HCA (Sulfona 3-11 [place] mide 00:00: Orthope Antibiot 00 dic ics) [facility] [place] DA Active [place] RASH [facility]CA c 3-11 [place] 00:00: Orthope 00 dic Hospita l Sulfa DA Active MO 2017-0 HCA (Sulfona 3-11 Clear mide 00:00: [place] Antibiot 00 Region[facility]) [facility] ket[place]ola DA Active [place] HCA c 3-11 Clear 00:00: [place] 00 [facility] latex DA Active [place] HCA 3-11 Clear 00:00: [place] 00 [facility] Iodine Propensi Active Methodi ty to [address] adverse 00:00: Hospita reaction 00 l s to drug [place] Propensi Active Method i c ty to [address] adverse 00:00: Hospita reaction 00 l s to drug Sulfa Propensi Active Methodi (Sulfona ty to [address] mide adverse 00:00: Hospita Antibiot reaction 00 l ics) s to drug Iodine Propensi Active Swelling [...] Benadryl is hives. IODINE Drug Active Swelling Univers AND Class 1- ity of IODIDE 00:00: [place] CONTAINI 00 Medical NG Branch PRODUCTS Sulfa Propensi Active Hives Univers (Sulfona ty to 3-13 ity of mide adverse 00:00: [place] Antibiot reaction 00 Medica l ics) s Branch SULFA Drug Active Hives Univers (SULFONA Class 3-13 ity of MIDE 00:00: [place] ANTIBIOT 00 Medical ICS) Branch [place] DRUG Active Hives Univers C INGREDI 3-21 ity of TROMETHA 00:00: [place] MINE 00 Medical Branch [place] Propensi Active Hives Univer s c ty to 3-21 ity of Trometha adverse 00:00: [place] mine reaction 00 Medical s Branch Social History Social Habit Start Date Stop Date Quantity Comments Source History SDOH [facility] Alcohol Std Drinks Medica l Center History SDOH [facility] Alcohol Binge Medical Delfina ter History SDOH [facility] Alcohol Comment Medical C enter Exposure to 2022-05-31 2022-06-10 Not sure University of SARS-CoV-2 (event) 00:00:00 12:09:00 [facility] Branch Cigarettes smoked 2022-06-10 2022-06-10 Univers ity of current (pack per 00:00:00 00:00:00 [facility] ) - Reported Branch Cigarette 2022-06-10 2022-06-10 University of pack-years 00:00:00 00:00:00 [place] [facility] History SDID 2019-05-27 2019-05-27 3 University o f Financial 00:00:00 00:00:00 [place] [facility] History [facility] Food 2019-05-27 2019-05-27 2 Univers ity of Worry 00:00:00 00:00:00 [place] [facility] History SDID Food 2019-05-27 2019-05-27 2 Univers ity of Scarcity 00:00:00 00:00:00 [place] [facility] History [facility] 2019-05-27 2019-05-27 1 University o f Transport Med 00:00:00 00:00:00 [place] Medic al Branch History SDID 2019-05-27 2019-05-27 1 University o f Transport Non-Med 00:00:00 00:00:00 [facility] 2019-02-12 2019-02-[address] [facility] Alcohol Frequency 00:00:00 00:00:00 Medical Center Tobacco use and 2019-02-12 2019-02-[address] Raquel kes exposure 00:00:00 00:00:00 Medical Center Alcohol intake 2019-02-12 2019-02-[address] [facility] es 00:00:00 00:00:00 non-drinker of Medical Ce nter alcohol (finding) History of tobacco 2013-05-28 Cigarette Smoker University use 00:00:00 [facility] Sex Assigned At [address] [facility] kes 00:00:00 00:00:00 Medical Center Smoking Status Start Date Stop Date Source Ex-smoker 2022-06-10 00:00:00 2022-06-10 00:00:00 [facility] Never smoker [facility] Medications Ordered Filled Start Stop Current Ordering Indication Dosage Frequency Signature Comments Components Source Medication Medication Date Date Medication? Clinician (SIG) Name Name LACTULOSE 2021-09 Yes [id number] 15mL TAKE 15 ML Univers 10 gram/15 22 BY MOUTH 2 ity of mL solution 00:00: (TWO) [place] 00 TIMES Medical DAILY Branch NEEDED FOR CONSTIPATI ON. LINZESS 290 2021-09 Yes TAKE 1 Univ ers mcg Cap 0-14 CAPSULE BY ity of 00:00: MOUTH [place] 00 EVERY DAY Medical Branch LINZESS 290 2021-09 Yes TAKE 1 Univ ers mcg Cap 0-14 CAPSULE BY ity of 00:00: MOUTH [place] EVERY DAY Medical Branch LINZESS 290 2021-09 Yes TAKE 1 Univ ers mcg Cap 0-14 CAPSULE BY ity of 00:00: MOUTH [place] EVERY DAY Medical Branch cephALEXin 2021-09- No [id number] 500mg Take 1 Univers (KEFLEX) 06-16 capsule by ity of 500 mg 00:00: 04:59 mouth in [place] capsule 00 :00 the Medical morning Branch and 1 capsule at noon and 1 capsule in the evening. Do all this for 5 days. ferrous Yes [id number] 324mg Take 1 Un juan gluconate 9-14 tablet by ity o f 324 mg 00:00: mouth in [place] (37.5 mg 00 the Medical iron) morning Branch tablet and 1 tablet in the evening. ferrous 0 Yes [id number] 324mg Take 1 Un juan gluconate 9-14 tablet by ity o f 324 mg 00:00: mouth in [place] (37.5 mg 00 the Medical iron) morning Branch tablet and 1 tablet in the evening. ferrous 0 Yes [id number] 324mg Take 1 Un juan gluconate 9-14 tablet by ity o f 324 mg 00:00: mouth in [place] (37.5 mg 00 the Medical iron) morning Branch tablet and 1 tablet in the evening. ferrous 2021-0 Yes [id number] 324mg Take 1 Un juan gluconate 9-14 tablet by ity o f 324 mg 00:00: mouth in [place] (37.5 mg 00 the Medical iron) morning Branch tablet and 1 tablet in the evening. ferrous 2021-0 Yes [id number] 324mg Take 1 Un juan gluconate 9-14 tablet by ity o f 324 mg 00:00: mouth in [place] (37.5 mg 00 the Medical iron) morning Branch tablet and 1 tablet in the evening. ferrous 2021-0 Yes [id number] 324mg Take 1 Un jaun gluconate 9-14 tablet by ity o f 324 mg 00:00: mouth in [place] (37.5 mg 00 the Medical iron) morning Branch tablet and 1 tablet in the evening. TOPIRAMATE 2021-0 Yes [id number] TAKE 1 Univers 50 mg 8-30 TABLET BY ity of tablet 00:00: MOUTH [place] 00 TWICE A Medical DAY [place] LEVOTHYROXI 2021-0 Yes [id number] TAKE 1 Univers NE 25 mcg 8-30 TABLET BY ity o f tablet 00:00: MOUTH [place] 00 EVERY DAY Medical IN THE [place] MORNING TOPIRAMATE 2021-0 Yes [id number] TAKE 1 Univers 50 mg 8-30 TABLET BY ity of tablet 00:00: MOUTH [place] 00 TWICE A Medical DAY [place] LEVOTHYROXI 2021-0 Yes [id number] TAKE 1 Univers NE 25 mcg 8-30 TABLET BY ity o f tablet 00:00: MOUTH [place] 00 EVERY DAY Medical IN THE [place] MORNING TOPIRAMATE 2021-0 Yes [id number] TAKE 1 Univers 50 mg 8-30 TABLET BY ity of tablet 00:00: MOUTH [place] 00 TWICE A Medical DAY Branch LEVOTHYROXI 2021-0 Yes [id number] TAKE 1 Univers NE 25 mcg 8-30 TABLET BY ity o f tablet 00:00: MOUTH [place] 00 EVERY DAY Medical IN THE [place] MORNING TOPIRAMATE 2021-0 Yes [id number] TAKE 1 Univers 50 mg 8-30 TABLET BY ity of tablet 00:00: MOUTH [place] 00 TWICE A Medical DAY Branch LEVOTHYROXI 2021-0 Yes [id number] TAKE 1 Univers NE 25 mcg 8-30 TABLET BY ity o f tablet 00:00: MOUTH [place] 00 EVERY DAY Medical IN THE [place] MORNING TOPIRAMATE Yes [id number] TAKE 1 Univers 50 mg 8-30 TABLET BY ity of tablet 00:00: MOUTH [place] 00 TWICE A Medical DAY [place] LEVOTHYROXI Yes [id number] TAKE 1 Univers NE 25 mcg 8-30 TABLET BY ity o f tablet 00:00: MOUTH [place] 00 EVERY DAY Medical IN THE [place] MORNING TOPIRAMATE Yes [id number] TAKE 1 Univers 50 mg 8-30 TABLET BY ity of tablet 00:00: MOUTH 00 TWICE A Medical DAY [place] LEVOTHYROXI Yes [id number] TAKE 1 Univers NE 25 mcg 8-30 TABLET BY ity o f tablet 00:00: MOUTH 00 EVERY DAY Medical IN THE [place] MORNING TOPIRAMATE Yes [id number] TAKE 1 Univers 50 mg 8-30 TABLET BY ity of tablet 00:00: MOUTH 00 TWICE A Medical DAY [place] LEVOTHYROXI Yes [id number] TAKE 1 Univers NE 25 mcg 8-30 TABLET BY ity o f tablet 00:00: MOUTH [place] 00 EVERY DAY Medical IN THE [place] MORNING TOPIRAMATE Yes [id number] TAKE 1 Univers 50 mg 8-30 TABLET BY ity of tablet 00:00: MOUTH 00 TWICE A Medical DAY [place] LEVOTHYROXI Yes [id number] TAKE 1 Univers NE 25 mcg 8-30 TABLET BY ity o f tablet 00:00: MOUTH [place] 00 EVERY DAY Medical IN THE [place] MORNING TOPIRAMATE Yes [id number] TAKE 1 Univers 50 mg 8-30 TABLET BY ity of tablet 00:00: MOUTH [place] 00 TWICE A Medical DAY [place] LEVOTHYROXI Yes [id number] TAKE 1 Univers NE 25 mcg 8-30 TABLET BY ity o f tablet 00:00: MOUTH [place] 00 EVERY DAY Medical IN THE [place] MORNING FERROUS 2021-2021- No [id number] TAKE 1 Uni vers GLUCONATE 05-06 TABLET BY ity of 324 mg (38 00:00: 00:00 MOUTH [place] mg iron) 00 :00 EVERY DAY Medica l tablet [place] FERROUS 2021-2021- No [id number] TAKE 1 Uni vers GLUCONATE 8-29 09-01 TABLET BY ity of 324 mg (38 00:00: 00:00 MOUTH [place] mg iron) 00 :00 EVERY DAY Medica l tablet Branch MAGNESIUM 2021-0 Yes [id number] TAKE 1 U nivers OXIDE 400 8-28 TABLET BY ity o f mg (241.3 00:00: MOUTH [place] mg 00 EVERY DAY Medical magnesium) Branch tablet MAGNESIUM 2021-0 Yes [id number] TAKE 1 U nivers OXIDE 400 8-28 TABLET BY ity o f mg (241.3 00:00: MOUTH [place] mg 00 EVERY DAY Medical magnesium) Branch tablet MAGNESIUM 2021-0 Yes [id number] TAKE 1 U nivers OXIDE 400 8-28 TABLET BY ity o f mg (241.3 00:00: MOUTH [place] mg 00 EVERY DAY Medical magnesium) Branch tablet MAGNESIUM 2021-0 Yes [id number] TAKE 1 U nivers OXIDE 400 8-28 TABLET BY ity o f mg (241.3 00:00: MOUTH [place] mg 00 EVERY DAY Medical magnesium) Branch tablet MAGNESIUM 2021-0 Yes [id number] TAKE 1 U nivers OXIDE 400 8-28 TABLET BY ity o f mg (241.3 00:00: MOUTH [place] mg 00 EVERY DAY Medical magnesium) Branch tablet MAGNESIUM 2021-0 Yes [id number] TAKE 1 U nivers OXIDE 400 8-28 TABLET BY ity o f mg (241.3 00:00: MOUTH [place] mg 00 EVERY DAY Medical magnesium) Branch tablet MAGNESIUM 2021-0 Yes [id number] TAKE 1 U nivers OXIDE 400 8-28 TABLET BY ity o f mg (241.3 00:00: MOUTH [place] mg 00 EVERY DAY Medical magnesium) Branch tablet MAGNESIUM 2021-0 Yes [id number] TAKE 1 U nivers OXIDE 400 8-28 TABLET BY ity o f mg (241.3 00:00: MOUTH [place] mg 00 EVERY DAY Medical magnesium) Branch tablet MAGNESIUM 2021-0 Yes [id number] TAKE 1 U nivers OXIDE 400 8-28 TABLET BY ity o f mg (241.3 00:00: MOUTH [place] mg 00 EVERY DAY Medical magnesium) Branch tablet lactulose 2021-0 Yes [id number] 15mL Take 15 mL Univers 10 gram/15 8-22 by mouth 2 ity of mL solution 00:00: (two) [place] 00 times Medical daily as Branch needed for Constipati on. lactulose 2022-0 Yes [id number] 15mL Take 15 mL Univers 10 gram/15 8-22 by mouth 2 ity of mL solution 00:00: (two) [place] 00 times Medical daily as Branch needed for Constipati on. lactulose 2-0 Yes [id number] 15mL Take 15 mL Univers 10 gram/15 8-22 by mouth 2 ity of mL solution 00:00: (two) [place] 00 times Medical daily as Branch needed for Constipati on. lactulose 2-0 Yes [id number] 15mL Take 15 mL Univers 10 gram/15 8-22 by mouth 2 ity of mL solution 00:00: (two) [place] 00 times Medical daily as Branch needed for Constipati on. lactulose 2021-0 Yes [id number] 15mL Take 15 mL Univers 10 gram/15 8-22 by mouth 2 ity of mL solution 00:00: (two) [place] 00 times Medical daily as Branch needed for Constipati on. lactulose 2-0 Yes [id number] 15mL Take 15 mL Univers 10 gram/15 8-22 by mouth 2 ity of mL solution 00:00: (two) [place] 00 times Medical daily as Branch needed for Constipati on. lactulose 2021-0 Yes [id number] 15mL Take 15 mL Univers 10 gram/15 8-22 by mouth 2 ity of mL solution 00:00: (two) [place] 00 times Medical daily as Branch needed for Constipati on. lactulose 2021-0 Yes [id number] 15mL Take 15 mL Univers 10 gram/15 8-22 by mouth 2 ity of mL solution 00:00: (two) [place] 00 times Medical daily as Branch needed for Constipati on. lactulose 2021-0 2- No [id number] 15mL Take 15 mL Univers 10 gram/15 8-22 11-22 by mouth 2 it y of mL solution 00:00: 00:00 [facility]two[facility] Medical daily as Branch needed for Constipati on. LISINOPRIL 2021-0 Yes TAKE 1 Unive rs 20 mg 7-20 TABLET BY ity of tablet 00:00: MOUTH [place] EVERY DAY Medical Branch LISINOPRIL 2021-0 Yes TAKE 1 Unive rs 20 mg 7-20 TABLET BY ity of tablet 00:00: MOUTH [place] EVERY DAY Medical Branch LISINOPRIL 2021-0 Yes TAKE 1 Unive rs 20 mg 7-20 TABLET BY ity of tablet 00:00: MOUTH [place] EVERY DAY Medical Branch LISINOPRIL Yes TAKE 1 Unive rs 20 mg 7-20 TABLET BY ity of tablet 00:00: MOUTH [place] EVERY DAY Medical Branch LISINOPRIL 0 Yes TAKE 1 Unive rs 20 mg 7-20 TABLET BY ity of tablet 00:00: MOUTH [place] EVERY DAY Medical Branch LISINOPRIL Yes TAKE 1 Unive rs 20 mg 7-20 TABLET BY ity of tablet 00:00: MOUTH [place] EVERY DAY Medical Branch LISINOPRIL Yes TAKE 1 Unive rs 20 mg 7-20 TABLET BY ity of tablet 00:00: MOUTH [place] EVERY DAY Medical Branch LISINOPRIL Yes TAKE 1 Unive rs 20 mg 7-20 TABLET BY ity of tablet 00:00: MOUTH [place] DAY Medical Branch LISINOPRIL Yes TAKE 1 Unive rs 20 mg 7-20 TABLET BY ity of tablet 00:00: [facility] EVERY DAY Medical Branch ondansetron 2021- No Unive rs 4 mg 02-22 ity of disintegrat 00:00: 00:00 [place] ing tablet 00 :00 Medical Branch ondansetron 2021- No Unive rs 4 mg 02-22 ity of disintegrat 00:00: 00:00 [place] ing tablet 00 :00 Medical Branch XARELTO 10 2021- No 10mg Take 10 mg Univers mg tablet 02-13 by mouth ity o f 00:00: 00:00 daily. [place] 00 :00 Medical Branch XARELTO 10 2021- No 10mg Take 10 mg Univers mg tablet 02-13 by mouth ity o f 00:00: 00:00 daily. [place] 00 :00 Medical Branch diazePAM 2021- No [id number] 2mg Take 1 U nivers (VALIUM) 2 12-19 tablet by ity of mg tablet 00:00: 00:00 mouth 2 [place] 00 :00 (two) Medical times Branch daily as needed for Anxiety. diazePAM 2021- No [id number] 2mg Take 1 U nivers (VALIUM) 2 12-19 tablet by ity of mg tablet 00:00: 00:00 mouth 2 [place] 00 :00 (two) Medical times Branch daily as needed for Anxiety. gabapentin 2021- No [id number] 300mg Take 1 Univers 300 mg 11-19 [id number] capsule by ity of capsule 00:00: 00:00 mouth 3 [place] 00 :00 (three) Medical times Branch daily. methylPREDN 2021- No [id number] Take by Univers ISolone 4 11-19 [id number] mouth ity of mg tablets 00:00: 00:00 SEE-INSTRU [place] 00 :00 CTIONS. Medical follow Branch package directions gabapentin 2021- No [id number] 300mg Take 1 Univers 300 mg 11-19 [id number] capsule by ity of capsule 00:00: 00:00 mouth 3 [place] 00 :00 (three) Medical times Branch daily. methylPREDN 2021- No [id number] Take by Univers ISolone 4 11-19 [id number] mouth ity of mg tablets 00:00: 00:00 SEE-INSTRU [place] 00 :00 CTIONS. Medical follow Branch package directions ergocalcife 2021- No [id number] Take 1 [facility] rol, 10-16 capsule by ity of vitamin d2, [place] 1,250 [place] 00 :00 weekly. Medical (50,000 Branch unit) capsule ergocalcife 2021- No [id number] Take 1 [facility] rol, 10-16 capsule by ity of vitamin d2, 00:00: [place] 1,250 mcg 00 :00 weekly. Medical (50,000 Branch unit) capsule loratadine Yes [id number] 10mg Take 1 [facility] 10 mg 1-31 tablet by ity of tablet 00:00: mouth [place] 00 daily. Medical Branch proMETHazin Yes [id number] 25mg Take 1 [facility] e 25 mg 1-31 tablet by ity of tablet 00:00: mouth 2 [place] 00 (two) Medical times Branch daily as needed for Nausea and Vomiting (N/V). SERTraline 2021-0 Yes [id number] 100mg Take 1 [facility] 100 mg 1-31 tablet by ity of tablet 00:00: mouth [place] 00 daily. Medical Branch pantoprazol 2021-0 Yes [id number] 40mg Take 1 [facility] e 40 mg EC 1-31 tablet by ity of tablet 00:00: mouth 2 [place] 00 (two) Medical times Branch daily. loratadine 2021-0 Yes [id number] 10mg Take 1 [facility] 10 mg 1-31 tablet by ity of tablet 00:00: mouth [place] 00 daily. Medical Branch proMETHazin 0 Yes [id number] 25mg Take 1 [facility] e 25 mg 1-31 tablet by ity of tablet 00:00: mouth 2 [place] 00 (two) Medical times Branch daily as needed for Nausea and Vomiting (N/V). SERTraline 0 Yes [id number] 100mg Take 1 [facility] 100 mg 1-31 tablet by ity of tablet 00:00: mouth [place] 00 daily. Medical [facility] pantoprazol 2021-0 Yes [id number] 40mg Take 1 [facility] e 40 mg EC 1-31 tablet by ity of tablet 00:00: mouth 2 [place] 00 (two) Medical times Branch daily. loratadine 2021-0 Yes [id number] 10mg Take 1 [facility] 10 mg 1-31 tablet by ity of tablet 00:00: mouth [place] 00 daily. Medical [facility] proMETHazin 2021-0 Yes [id number] 25mg Take 1 [facility] e 25 mg 1-31 tablet by ity of tablet 00:00: mouth 2 [place] 00 (two) Medical times Branch daily as needed for Nausea and Vomiting (N/V). SERTraline 2021-0 Yes [id number] 100mg Take 1 [facility] 100 mg 1-31 tablet by ity of tablet 00:00: mouth [place] 00 daily. Medical Branch pantoprazol 2021-0 Yes [id number] 40mg Take 1 [facility] e 40 mg EC 1-31 tablet by ity of tablet 00:00: mouth 2 [place] 00 (two) Medical times Branch daily. loratadine 2021-0 Yes [id number] 10mg Take 1 [facility] 10 mg 1-31 tablet by ity of tablet 00:00: mouth [place] 00 daily. Medical [facility] proMETHazin 2021-0 Yes [id number] 25mg Take 1 [facility] e 25 mg 1-31 tablet by ity of tablet 00:00: mouth 2 (two) Medical times Branch daily as needed for Nausea and Vomiting (N/V). SERTraline 2021-0 Yes [id number] 100mg Take 1 [facility] 100 mg 1-31 tablet by ity of tablet 00:00: mouth [place] 00 daily. Medical [facility] pantoprazol 2021-0 Yes [id number] 40mg Take 1 [facility] e 40 mg EC 1-31 tablet by ity of tablet 00:00: mouth 2 (two) Medical times Branch daily. loratadine 2021-0 Yes [id number] 10mg Take 1 [facility] 10 mg 1-31 tablet by ity of tablet 00:00: mouth [place] 00 daily. Medical [facility] proMETHazin 2021-0 Yes [id number] 25mg Take 1 [facility] e 25 mg 1-31 tablet by ity of tablet 00:00: mouth 2 (two) Medical times Branch daily as needed for Nausea and Vomiting (N/V). SERTraline 2021-0 Yes [id number] 100mg Take 1 [facility] 100 mg 1-31 tablet by ity of tablet 00:00: mouth [place] 00 daily. Medical Branch pantoprazol 2021-0 Yes [id number] 40mg Take 1 [facility] e 40 mg EC 1-31 tablet by ity of tablet 00:00: mouth (two) Medical times Branch daily. loratadine 2021-0 Yes [id number] 10mg Take 1 [facility] 10 mg 1-31 tablet by ity of tablet 00:00: mouth [place] 00 daily. Medical Branch proMETHazin 2021-0 Yes [id number] 25mg Take 1 [facility] e 25 mg 1-31 tablet by ity of tablet 00:00: mouth 2 (two) Medical times Branch daily as needed for Nausea and Vomiting (N/V). SERTraline 2021-0 Yes [id number] 100mg Take 1 [facility] 100 mg 1-31 tablet by ity of tablet 00:00: mouth [place] 00 daily. Medical Branch pantoprazol 2021-0 Yes [id number] 40mg Take 1 [facility] e 40 mg EC 1-31 tablet by ity of tablet 00:00: mouth 2 (two) Medical times Branch daily. loratadine 2021-0 Yes [id number] 10mg Take 1 [facility] 10 mg 1-31 tablet by ity of tablet 00:00: mouth [place] 00 daily. Medical Branch proMETHazin 2021-0 Yes [id number] 25mg Take 1 [facility] e 25 mg 1-31 tablet by ity of tablet 00:00: mouth 2 [place] 00 (two) Medical times Branch daily as needed for Nausea and Vomiting (N/V). SERTraline 2021-0 Yes [id number] 100mg Take 1 [facility] 100 mg 1-31 tablet by ity of tablet 00:00: mouth [place] 00 daily. Medical [facility] pantoprazol 2021-0 Yes [id number] 40mg Take 1 [facility] e 40 mg EC 1-31 tablet by ity of tablet 00:00: mouth 2 00 (two) Medical times Branch daily. loratadine 2021-0 Yes [id number] 10mg Take 1 [facility] 10 mg 1-31 tablet by ity of tablet 00:00: mouth [place] 00 daily. Medical [facility] proMETHazin 2021-0 Yes [id number] 25mg Take 1 [facility] e 25 mg 1-31 tablet by ity of tablet 00:00: mouth 2 (two) Medical times Branch daily as needed for Nausea and Vomiting (N/V). SERTraline 2021-0 Yes [id number] 100mg Take 1 [facility] 100 mg 1-31 tablet by ity of tablet 00:00: mouth [place] 00 daily. Medical [facility] pantoprazol 2021-0 Yes [id number] 40mg Take 1 [facility] e 40 mg EC 1-31 tablet by ity of tablet 00:00: mouth 2 [place] 00 (two) Medical times Branch daily. loratadine 2021-0 Yes [id number] 10mg Take 1 [facility] 10 mg 1-31 tablet by ity of tablet 00:00: mouth [place] 00 daily. Medical Branch proMETHazin 2021-0 Yes [id number] 25mg Take 1 [facility] e 25 mg 1-31 tablet by ity of tablet 00:00: mouth 2 [place] 00 (two) Medical times Branch daily as needed for Nausea and Vomiting (N/V). SERTraline 2021-0 Yes [id number] 100mg Take 1 [facility] 100 mg 1-31 tablet by ity of tablet 00:00: mouth [place] 00 daily. Medical [facility] pantoprazol 2021-0 Yes [id number] 40mg Take 1 [facility] e 40 mg EC 1-31 tablet by ity of tablet 00:00: mouth 2 [place] 00 (two) Medical times Branch daily. linaCLOtide 2021- No [id number] 290ug Take 1 [facility] (LINZESS) 10-08 capsule by ity of 290 mcg Cap 00:00: 00:[place] 00 :00 daily. [facility] linaCLOtide 0 2- No [id number] 290ug Take 1 [facility] (LINZESS) 10-08 capsule by ity of 290 mcg Cap 00:00: 00:[place] 00 :00 daily. [facility] fluticasone 0 Yes Univer s propionate 6-22 ity of 50 00:00: [place] mcg/actuati 00 Medical on nasal Branch spray fluticasone 0 Yes Univer s propionate 6-22 ity of 50 00:00: [place] mcg/actuati 00 Medical on nasal Branch spray fluticasone 0 Yes Univer s propionate 6-22 ity of 50 00:00: [place] mcg/actuati 00 Medical on nasal Branch spray fluticasone 0 Yes Univer s propionate 6-22 ity of 50 00:00: [place] mcg/actuati 00 Medical on nasal Branch spray fluticasone 0 Yes Univer s propionate 6-22 ity of 50 00:00: [place] mcg/actuati 00 Medical on nasal Branch spray fluticasone 0 Yes Univer s propionate 6-22 ity of 50 00:00: [place] mcg/actuati 00 Medical on nasal Branch spray fluticasone 0 Yes Univer s propionate 6-22 ity of 50 00:00: [place] mcg/actuati 00 Medical on nasal Branch spray fluticasone 0 Yes Univer s propionate 6-22 ity of 50 00:00: [place] mcg/actuati 00 Medical on nasal Branch spray fluticasone 0 Yes Univer s propionate 6-22 ity of 50 00:00: [place] mcg/actuati 00 Medical on nasal Branch spray SYMBICORT 0 Yes TAKE 2 Univer s 160-4.5 1-18 PUFFS BY ity of mcg/actuati 00:00: MOUTH [place] on inhaler 00 TWICE A Medica l DAY Branch SYMBICORT 0 Yes TAKE 2 Univer s 160-4.5 1-18 [...] A Medica l DAY Branch ESTRADIOL 1 2019-09- No [id number] TAKE 1 [facility] mg tablet 005-09 TABLET BY ity of 00:00: 00:00 MOUTH [place] 00 :00 EVERY DAY Medical Branch ESTRADIOL 1 2019-09- No [id number] TAKE 1 [facility] mg tablet 005-09 TABLET BY ity of 00:00: 00:00 MOUTH [place] 00 :00 EVERY DAY Medical Branch zolpidem 2019- Yes 1{tbl} Take 1 Unive rs (AMBIEN) 5 1-01 tablet by [facility] of mg tablet 00:[place]: [place] 00 bedtime as Medical needed. [place] zolpidem 2018-09 Yes 1{tbl} Take 1 Unive rs (AMBIEN) 5 1-01 tablet by [facility] of mg tablet 00:00: [place] 00 bedtime as Medical needed. [place] zolpidem 2018-09 Yes 1{tbl} Take 1 Unive rs (AMBIEN) 5 1-01 tablet by [facility] of mg tablet 00:00: [place] 00 bedtime as Medical needed. [place] zolpidem 2018-09 Yes 1{tbl} Take 1 Unive rs (AMBIEN) 5 1-01 tablet by [facility] mg tablet 00:00: [place] 00 bedtime as Medical needed. [place] zolpidem 2018-09 Yes 1{tbl} Take 1 Unive rs (AMBIEN) 5 1-01 tablet by [facility] of mg tablet 00:00: [place] 00 bedtime as Medical needed. [place] zolpidem 2018-09 Yes 1{tbl} Take 1 Unive rs (AMBIEN) 5 1-01 tablet by [facility] of mg tablet 00:00: [place] 00 bedtime as Medical needed. [place] zolpidem 2018-09 Yes 1{tbl} Take 1 Unive rs (AMBIEN) 5 1-01 tablet by [facility] of mg tablet 00:00: [place] 00 bedtime as Medical needed. [place] zolpidem 2018-09 Yes 1{tbl} Take 1 Unive rs (AMBIEN) 5 1-01 tablet by [facility] of mg tablet 00:00: [place] 00 bedtime as Medical needed. [place] zolpidem 2018-09 Yes 1{tbl} Take 1 Unive rs (AMBIEN) 5 1-01 tablet by [facility] of mg tablet 00:00: [place] 00 bedtime as Medical needed. [place] levothyroxi 2018-09 Yes 25ug Take 25 [facility] 0-[address] (SYNTHROID) 22:40: mouth[facility] mcg 33 l tablet levothyroxi 2018-09 Yes 25ug Take 25 [facility] ne 0-[address] (SYNTHROID) 22:40: mouth. [facility] mcg 33 l tablet levothyroxi 2018-09 Yes 25ug Take 25 [facility] ne 0-[address] (SYNTHROID) 22:40: mouth. [facility] mcg 33 l tablet levothyroxi 2018-09 Yes 25ug Take 25 Met [...] Hospita 40 MG EC 00 l tablet LINZESS 290 2018-09 Yes 290ug QD Take 290 M ethodi mcg capsule 0-[address] 00:00: mouth [facility] 00 daily. l pantoprazol 2018-09 Yes 40mg Take 40 mg Methodi e 0-[address] (PROTONIX) 00:00: Hospita 40 MG EC 00 l tablet LINZESS 290 2018-09 Yes 290ug QD Take 290 M ethodi mcg capsule 0-[address] 00:00: mouth [facility] 00 daily. l pantoprazol 2018-09 Yes 40mg Take 40 mg Methodi e 0-[address] (PROTONIX) 00:00: Hospita 40 MG EC 00 l tablet LINZESS 290 2018-09 Yes 290ug QD Take 290 M ethodi mcg capsule 0-[address] 00:00: mouth [facility] 00 daily. l pantoprazol 2018-09 Yes 40mg Take 40 mg Methodi e 0-[address] (PROTONIX) 00:00: Hospita 40 MG EC 00 l tablet estradiol 2018- Yes 1mg QD Take 1 mg [facility] (ESTRACE) 1 9-[address] [facility] tablet 00:00: daily. Hospit a 00 l estradiol 2018- Yes 1mg QD Take 1 mg [facility] (ESTRACE) 1 9-[address] MG tablet 00:00: daily. Hospit a 00 l estradiol 2018- Yes 1mg QD Take 1 mg [facility] (ESTRACE) 1 9-[address] MG tablet 00:00: daily. Hospit a 00 l estradiol Yes 1mg QD Take 1 mg [facility] (ESTRACE) 1 9-[address] MG tablet 00:00: daily. Hospit a l cetirizine Yes 10mg QD Take 10 mg M ethodi (ZyrTEC) 10 9-[address] MG tablet 00:00: daily. Hospit a l cetirizine Yes 10mg QD Take 10 mg M ethodi (ZyrTEC) 10 9-[address] MG tablet 00:00: daily. Hospit a l cetirizine Yes 10mg QD Take 10 mg M ethodi (ZyrTEC) 10 9-[address] MG tablet 00:00: daily. Hospit a l cetirizine Yes 10mg QD Take 10 mg M ethodi (ZyrTEC) 10 9-[address] MG tablet 00:00: daily. Hospit a l hydrOXYzine Yes TAKE 4 Meth jose g (ATARAX) 50 8-[address] MG tablet 00:00: [facility] Hospit a DAILY l hydrOXYzine Yes TAKE 4 [facility] (ATARAX) 50 8-[address] MG tablet 00:00: [facility] a 00 DAILY l hydrOXYzine Yes TAKE 4 [facility] (ATARAX) 50 8-[address] MG tablet 00:00: [facility] Hospit a 00 DAILY l hydrOXYzine Yes TAKE 4 [facility]ose [facility] (ATARAX) 50 8-[address] MG tablet 00:00: [facility] Hospit a 00 DAILY l estradiol Yes 1mg QD Take [address] [facility] (ESTRACE) 1 6-07 by mouth [facility] MG tablet 09:56: daily. Medica l 34 Center levothyroxi Yes 25ug Take [address] [facility] ne 6-07 mcg [facility] (SYNTHROID, 09:56: mouth Medic al LEVOTHROID) 34 Every Center 25 MCG morning on tablet an empty stomach. cetirizine Yes 10mg QD Take [address] (ZYRTEC) 10 6-07 by mouth [facility] MG tablet 09:56: daily. Medica l 34 Center lisinopril Yes 10mg QD Take [address] (PRINIVIL,Z 6-07 by mouth [facility] ESTRIL) 10 09:56: daily. Medic al MG tablet 34 Center linaclotide Yes 290ug QD Take [address] (LINZESS) 6-07 mcg [facility] 290 mcg Cap 09:56: mouth Medic al 34 daily. Center pantoprazol 0 Yes 40mg Q.5D Take [address] [facility] e 6-07 by mouth 2 [facility] (PROTONIX) 09:56: (two) Medica l 40 MG 34 times Center tablet daily. eszopiclone 0 Yes 3mg QD Take [address] 3 mg tablet 6-07 by mouth [place] [facility] 09:56: nightly Medical 34 Take Center immediatel y before bedtime . hydrOXYzine Yes 100mg QD Take [address] (ATARAX) 50 6-07 mg by [facility] MG tablet 09:56: mouth Medical 34 nightly. [place] albuterol Yes 1{puff} Inhale [address] HFA 6-07 puff by [facility] (VENTOLIN 09:56: mouth via Med ical HFA) 90 34 inhaler Center mcg/actuati every 6 on inhaler (six) hours as needed for Wheezing. estradiol Yes 1mg QD Take [address] [facility] (ESTRACE) 1 6-07 by mouth [place] [facility] MG tablet 09:56: daily. Medica l 34 [place] levothyroxi Yes 25ug Take [address] ne 6-07 mcg [facility] (SYNTHROID, 09:56: mouth Medic al LEVOTHROID) 34 Every Center 25 MCG morning on tablet an empty stomach. cetirizine Yes 10mg QD Take [address] (ZYRTEC) 10 6-07 by mouth [facility] MG tablet 09:56: daily. Medica l 34 [place] estradiol 0 Yes 1mg QD Take [address] [facility] (ESTRACE) 1 6-07 by mouth [facility] MG tablet 09:56: daily. Medica l 34 [place] levothyroxi 0 Yes 25ug Take [address] ne 6-07 mcg by [facility] (SYNTHROID, 09:56: mouth Medic al LEVOTHROID) 34 Every Center 25 MCG morning on tablet an empty stomach. cetirizine Yes 10mg QD Take [address] (ZYRTEC) 10 6-07 by mouth [facility] MG tablet 09:56: daily. Medica l 34 Center lisinopril 2019-0 Yes 10mg QD Take [address] (PRINIVIL,Z 6-07 by mouth [facility] ESTRIL) 10 09:56: daily. Medic al MG tablet 34 Center linaclotide 2019-0 Yes 290ug QD Take [address] (LINZESS) 6-07 mcg [facility] 290 mcg Cap 09:56: mouth Medic al 34 daily. Center pantoprazol 2019-0 Yes 40mg Q.5D Take [address] [facility] e 6-07 by mouth 2 [facility] (PROTONIX) 09:56: (two) Medica l 40 MG 34 times Center tablet daily. eszopiclone 2019-0 Yes 3mg QD Take [address] 3 mg tablet 6-07 by mouth [facility] s 09:56: nightly Medical 34 Take Center immediatel y before bedtime . hydrOXYzine 2019-0 Yes 100mg QD Take [address] (ATARAX) 50 6-07 mg by [facility] MG tablet 09:56: mouth Medical 34 nightly. [place] albuterol 2019-0 Yes 1{puff} Inhale [address] HFA 6-07 puff by [facility] (VENTOLIN 09:56: mouth via Med ical HFA) 90 34 inhaler Center mcg/actuati every 6 on inhaler (six) hours as needed for Wheezing. lisinopril 2019-0 Yes 10mg QD Take [address] (PRINIVIL,Z 6-07 by mouth [facility] ESTRIL) 10 09:56: daily. Medic al MG tablet 34 Center linaclotide 2019-0 Yes 290ug QD Take [address] (LINZESS) 6-07 mcg [facility] 290 mcg Cap 09:56: mouth Medic al 34 daily. Center pantoprazol 2019-0 Yes 40mg Q.5D Take [address] [facility] e 6-07 by mouth 2 [facility] (PROTONIX) 09:56: (two) Medica l 40 MG 34 times Center tablet daily. eszopiclone 2019-0 Yes 3mg QD Take [address] 3 mg tablet 6-07 by mouth [facility] s 09:56: nightly Medical 34 Take Center immediatel y before bedtime . hydrOXYzine 2019-0 Yes 100mg QD Take [address] (ATARAX) 50 6-07 mg by [facility] MG tablet 09:56: mouth Medical 34 nightly. [place] albuterol Yes 1{puff} Inhale [address] HFA 6-07 puff by [facility] (VENTOLIN 09:56: mouth via Med ical HFA) 90 34 inhaler Center mcg/actuati every 6 on inhaler (six) hours as needed for Wheezing. estradiol Yes 1mg QD Take [address] [facility] (ESTRACE) 1 6-07 by mouth [facility] MG tablet 09:56: daily. Medica l 34 [place] levothyroxi Yes 25ug Take [address] ne 6-07 mcg by [facility] (SYNTHROID, 09:56: mouth Medic al LEVOTHROID) 34 Every Center 25 MCG morning on tablet an empty stomach. cetirizine Yes 10mg QD Take [address] (ZYRTEC) 10 6-07 by mouth [facility] MG tablet 09:56: daily. Medica l 34 [place] lisinopril Yes 10mg QD Take [address] (PRINIVIL,Z 6-07 by mouth [facility] ESTRIL) 10 09:56: daily. Medic al MG tablet 34 [place] linaclotide Yes 290ug QD Take [address] (LINZESS) 6-07 mcg [facility] 290 mcg Cap 09:56: mouth Medic al 34 daily. [place] pantoprazol Yes 40mg Q.5D Take [address] [facility] e 6-07 by mouth 2 [facility] (PROTONIX) 09:56: (two) Medica l 40 MG 34 times Center tablet daily. eszopiclone Yes 3mg QD Take [address] 3 mg tablet 6-07 by mouth [facility] s 09:56: nightly Medical 34 Take Center immediatel y before bedtime . hydrOXYzine 0 Yes 100mg QD Take [address] (ATARAX) 50 6-07 mg by [facility] MG tablet 09:56: mouth Medical 34 nightly. [place] albuterol Yes 1{puff} Inhale [address] HFA 6-07 puff by [facility] (VENTOLIN 09:56: mouth via Med ical HFA) 90 34 inhaler Center mcg/actuati every 6 on inhaler (six) hours as needed for Wheezing. lisinopril Yes 10mg 10 mg. [facility] (PRINIVIL) 2-10 [facility] 20 mg 00:00: Hospita tablet 00 l lisinopril Yes 10mg 10 mg. [facility] (PRINIVIL) 2-10 st 20 mg 00:00: Hospita tablet 00 l lisinopril Yes 10mg 10 mg. [facility] (PRINIVIL) 2-10 st 20 mg 00:00: Hospita tablet 00 l lisinopril 0 Yes 10mg 10 mg. [facility] (PRINIVIL) [...] as Medic al needed. Branch PROAIR HFA 2015-0 Yes 1{puff} Inhale 1 Univers 90 4-04 Puff every ity of mcg/actuati 00:00: 4 (four) [place] on inhaler 00 hours as Medic al needed. Branch PROAIR HFA 2015-0 Yes 1{puff} Inhale 1 [facility] 90 4-04 Puff every ity of mcg/actuati 00:00: 4 (four) [place] inhaler 00 hours as Medic al needed. Branch Immunizations Ordered Filled Immunization Date Status Comments [facility] e Immunization Name Name SARS-COV-2 COVID-19 2021-09-17 Completed Unive rsity of PFIZER VACCINE 00:00:00 [facility] Influenza Virus 2021-09-17 Completed Universit y of Vaccine 00:00:00 [facility] SARS-COV-2 COVID-19 2021-09-17 Completed Unive rsity of PFIZER VACCINE 00:00:00 [facility] Influenza Virus 2021-09-17 Completed Universit y of Vaccine 00:00:00 [facility] SARS-COV-2 COVID-19 2021-09-17 Completed Unive rsity of PFIZER VACCINE 00:00:00 [facility] Influenza Virus 2021-09-17 Completed Universit y of Vaccine 00:00:00 [facility] SARS-COV-2 COVID-19 2021-09-17 Completed Unive rsity of PFIZER VACCINE 00:00:00 [facility] Influenza Virus 2021-09-17 Completed Universit y of Vaccine 00:00:00 [facility] SARS-COV-2 COVID-19 2021-09-17 Completed Unive rsity of PFIZER VACCINE 00:00:00 [facility] Influenza Virus 2021-09-17 Completed Universit y of Vaccine 00:00:00 [facility] SARS-COV-2 COVID-19 2021-09-17 Completed Unive rsity of PFIZER VACCINE 00:00:00 [facility] Influenza Virus 2021-09-17 Completed Universit y of Vaccine 00:00:00 [facility] SARS-COV-2 COVID-19 2021-09-17 Completed Unive rsity of PFIZER VACCINE 00:00:00 [facility] Influenza Virus 2021-09-17 Completed Universit y of Vaccine 00:00:00 [facility] SARS-COV-2 COVID-19 2021-09-17 Completed Unive rsity of PFIZER VACCINE 00:00:00 [facility] Influenza Virus 2021-09-17 Completed Universit y of Vaccine 00:00:00 [facility] SARS-COV-2 COVID-19 2021-09-17 Completed Unive rsity of PFIZER VACCINE 00:00:00 [facility] Influenza Virus 2021-09-17 Completed Universit y of Vaccine 00:00:00 [facility] SARS-COV-2 COVID-19 2021-01-16 Completed Unive rsity of CHELSEA/J&J VACCINE 00:00:00 [facility] SARS-COV-2 COVID-19 2021-01-16 Completed Unive rsity of CHELSEA/J&J VACCINE 00:00:00 [facility] SARS-COV-2 COVID-19 2021-01-16 Completed Unive rsity of CHELSEA/J&J VACCINE 00:00:00 [facility] SARS-COV-2 COVID-19 2021-01-16 Completed Unive rsity of CHELSEA/J&J VACCINE 00:00:00 [facility] SARS-COV-2 COVID-19 2021-01-16 Completed Unive rsity of CHELSEA/J&J VACCINE 00:00:00 [facility] SARS-COV-2 COVID-19 2021-01-16 Completed Unive rsity of CHELSEA/J&J VACCINE 00:00:00 [facility] SARS-COV-2 COVID-19 2021-01-16 Completed Unive rsity of CHELSEA/J&J VACCINE 00:00:00 [facility] SARS-COV-2 COVID-19 2021-01-16 Completed Unive rsity of CHELSEA/J&J VACCINE 00:00:00 [facility] SARS-COV-2 COVID-19 2021-01-16 Completed Unive rsity of CHELSEA/J&J VACCINE 00:00:00 [facility] Influenza Virus 2020-07-13 Completed Universit y of Vaccine Recomb Quad 00:00:00 [facility], Preserv and ABX Branc h Free 18-64 [...] 2019-06-30 Completed Universit y of Vaccine 00:00:00 [facility] Influenza Virus 2019-06-30 Completed Universit y of Vaccine 00:00:00 [facility] Influenza Virus 2019-06-30 Completed Universit y of Vaccine 00:00:00 [facility] Influenza Virus 2019-06-30 Completed Universit y of Vaccine 00:00:00 [facility] Influenza Virus 2019-06-30 Completed Universit y of Vaccine 00:00:00 [facility] Influenza Virus 2019-06-30 Completed Universit y of Vaccine 00:00:00 [facility] Influenza Virus 2019-06-30 Completed Universit y of Vaccine 00:00:00 [facility] Influenza Virus 2019-06-30 Completed Universit y of Vaccine 00:00:00 [facility] Influenza Virus 2019-06-30 Completed Universit y of Vaccine 00:00:00 [facility] Influenza Virus 2018-06-08 Completed Universit y of Vaccine Quad ID 00:00:00 [facility] 18-64 YRS Branch Influenza Virus 2018-06-08 Completed Universit y of Vaccine Quad ID 00:00:00 [facility] ical 18-64 YRS Branch Influenza Virus 2018-06-08 Completed Universit y of Vaccine Quad ID 00:00:00 [facility] ica 18-64 YRS Branch Influenza Virus 2018-06-08 Completed Universit y of Vaccine Quad ID 00:00:00 [facility] ica 18-64 YRS Branch Influenza Virus 2018-06-08 Completed Universit y of Vaccine Quad ID 00:00:00 [facility] ica 18-64 YRS Branch Influenza Virus 2018-06-08 Completed Universit y of Vaccine Quad ID 00:00:00 [facility] ical 18-64 YRS [place] Influenza Virus 2018-06-08 Completed Universit y of Vaccine Quad ID 00:00:00 [facility] ica 18-64 YRS [place] Influenza Virus 2018-06-08 Completed Universit y of Vaccine Quad ID 00:00:00 [facility] 18-64 YRS [place] Influenza Virus 2018-06-08 Completed Universit y of Vaccine Quad ID 00:00:00 [facility] 18-64 YRS [place] Influenza Virus 2017-06-21 Completed Universit y of Vaccine 00:00:00 [facility] Influenza Virus 2017-06-21 Completed Universit y of Vaccine 00:00:00 [facility] Influenza Virus 2017-06-21 Completed Universit y of Vaccine 00:00:00 [facility] Influenza Virus 2017-06-21 Completed Universit y of Vaccine 00:00:00 [facility] Influenza Virus 2017-06-21 Completed Universit y of Vaccine 00:00:00 [facility] Influenza Virus 2017-06-21 Completed Universit y of Vaccine 00:00:00 [facility] Influenza Virus 2017-06-21 Completed Universit y of Vaccine 00:00:00 [facility] Influenza Virus 2017-06-21 Completed Universit y of Vaccine 00:00:00 [facility] Influenza Virus 2017-06-21 Completed Universit y of Vaccine 00:00:00 [facility] TDAP 2017-03-19 Completed University of 00:00:00 [facility] TDAP 2017-03-19 Completed University of 00:00:00 [facility] TDAP 2017-03-19 Completed University of 00:00:00 [facility] TDAP 2017-03-19 Completed University of 00:00:00 [facility] TDAP 2017-03-19 Completed University of 00:00:00 [facility] TDAP 2017-03-19 Completed University of 00:00:00 [facility] TDAP 2017-03-19 Completed University of 00:00:00 [facility] TDAP 2017-03-19 Completed University of 00:00:00 [facility] TDAP 2017-03-19 Completed University of 00:00:00 [facility] Vital Signs Vital Name Observation Time Observation Value Comments Source Systolic blood 2022-06-10 17:25:00 127 mm[Hg] Univer sity of pressure [facility] Diastolic blood 2022-06-10 17:25:00 85 mm[Hg] Unive rsity of pressure [facility] Heart rate 2022-06-10 17:25:00 63 /min Universi ty of [facility] Body temperature 2022-06-10 17:25:00 37 [place] [facility] [place] [facility] 2022-06-10 17:25:00 16 /[facility] [place] Body height 2022-06-10 17:25:00 157.5 cm Universi ty of [facility] Body weight 2022-06-10 17:25:00 101.107 kg [facility] ty [facility] BMI 2022-06-10 17:25:00 40.77 kg/m2 Universi ty [facility] Oxygen saturation in 2022-06-10 17:25:00 99 /min University Arterial blood by [facility] Pulse oximetry Branch Systolic blood 2022-05-09 16:19:00 126 mm[Hg] Univer sity of pressure [facility] Diastolic blood 2022-05-09 16:19:00 84 mm[Hg] Unive rsity of pressure [facility] Heart rate 2022-05-09 16:19:00 60 /min [facility] Body temperature 2022-05-09 16:19:00 36.5 Luz Marina Univ ersity [facility] Respiratory rate 2022-05-09 16:19:00 16 /min Univ ersity [facility] Body height 2022-05-09 16:19:00 157.5 cm [facility] Body weight 2022-05-09 16:19:00 97.07 kg [facility] BMI 2022-05-09 16:19:00 39.14 [facility] Oxygen saturation in 2022-05-09 16:19:00 99 /min University Arterial blood by [facility] Pulse oximetry Branch Procedures Procedure Date / Time Performed Performing Clinician Sourc e POCT URINALYSIS 2022-06-10 17:26:00 Cristiana Becerra f [facility] MR BRAIN WO CONTRAST 2022-06-06 14:07:32 Judith Yuen [facility] Plan of Care Planned Activity Planned Date Details Comments Source Future Scheduled 2022-08-30 COVID-19 VACCINE (#1) [facility] Test 04:38:23 [code = COVID-19 VACCINE (#1)] Future Scheduled 2022-08-30 Screening for [facility] Test 04:38:23 malignant neoplasm of cervix (procedure) [code = 206203353] Future Scheduled 2022-08-30 BREAST CANCER [facility] Test 04:38:23 SCREENING [code = BREAST CANCER SCREENING] Future Scheduled 2022-08-30 COLONOSCOPY SCREENING [facility] Test 04:38:23 [code = COLONOSCOPY SCREENING] Future Scheduled 2022-08-30 SHINGLES VACCINES (1 [facility] Test 04:38:23 of 2) [code = SHINGLES VACCINES (1 of 2)] Future Scheduled 2022-08-30 INFLUENZA VACCINE Method t Hospital Test 04:38:23 [code = INFLUENZA VACCINE] Future Scheduled 2022-08-16 HEPATITIS B VACCINES [facility] Test 05:43:33 (1 of 3 - 3-dose series) [code = HEPATITIS B VACCINES (1 of 3 - 3-dose series)] Future Scheduled 2022-08-16 COVID-19 VACCINE (#1) [facility] Test 05:43:33 [code = COVID-19 VACCINE (#1)] Future Scheduled 2022-08-16 Screening for [facility] Test 05:43:33 malignant neoplasm of cervix (procedure) [code = 899970142] Future Scheduled 2022-08-16 BREAST CANCER [facility] Test 05:43:33 SCREENING [code = BREAST CANCER SCREENING] Future Scheduled 2022-08-16 COLONOSCOPY SCREENING [facility] Test 05:43:33 [code = COLONOSCOPY SCREENING] Future Scheduled 2022-08-16 SHINGLES VACCINES (1 [facility] Test 05:43:33 of 2) [code = SHINGLES VACCINES (1 of 2)] Future Scheduled 2022-08-16 INFLUENZA VACCINE [facility] Test 05:43:33 [code = INFLUENZA VACCINE] Future Scheduled 2021-09-19 COVID-19 VACCINE (1) [facility] Test 15:48:31 [code = COVID-19 VACCINE (1)] Future Scheduled 2021-09-19 Hepatitis C screening [facility] Test 15:48:31 (procedure) [code = 581012362] Future Scheduled 2021-09-19 Screening for [facility] Test 15:48:31 malignant neoplasm of cervix (procedure) [code = 469126081] Future Scheduled 2021-09-19 BREAST CANCER [facility] Test 15:48:31 SCREENING [code = BREAST CANCER SCREENING] Future Scheduled 2021-09-19 COLONOSCOPY SCREENING [facility] Test 15:48:31 [code = COLONOSCOPY SCREENING] Future Scheduled 2021-09-19 SHINGLES VACCINES [facility] Test 15:48:31 (#1) [code = SHINGLES VACCINES (#1)] Future Scheduled 2021-09-19 INFLUENZA VACCINE [facility] Test 15:48:31 [code = INFLUENZA VACCINE] Future Scheduled 2021-09-19 COVID-19 VACCINE (1) [facility] Test 15:48:31 [code = COVID-19 VACCINE (1)] Future Scheduled 2021-09-19 Hepatitis C screening [facility] Test 15:48:31 (procedure) [code = 245122749] Future Scheduled 2021-09-19 Screening for [facility] Test 15:48:31 malignant neoplasm of cervix (procedure) [code = 409984028] Future Scheduled 2021-09-19 BREAST CANCER [facility] Test 15:48:31 SCREENING [code = BREAST CANCER SCREENING] Future Scheduled 2021-09-19 COLONOSCOPY SCREENING [facility] Test 15:48:31 [code = COLONOSCOPY SCREENING] Future Scheduled 2021-09-19 SHINGLES VACCINES Method is Hospital Test 15:48:31 (#1) [code = SHINGLES VACCINES (#1)] Future Scheduled 2021-09-19 INFLUENZA VACCINE [facility] Test 15:48:31 [code = INFLUENZA VACCINE] Future Scheduled 2021-05-[address] [facility] Test 00:00:00 (#1) [code = Medical Center INFLUENZA VACCINE (#1)] Future Scheduled 2021-05-[address] [facility] Test 00:00:00 (#1) [code = Medical Center INFLUENZA VACCINE (#1)] Future Scheduled 2020-09-[address] [facility] Test 00:00:00 (12+) [code = Medical Center DEPRESSION SCREENING (12+)] Future Scheduled 2020-09-[address] [facility] Test 00:00:00 (12+) [code = Medical Center DEPRESSION SCREENING (12+)] Future Scheduled 2019 SHINGLES VACCINES ([address] [facility] Test 00:00:00 of 2) [code = Medical Center SHINGLES VACCINES (1 of 2)] Future Scheduled 2019 SHINGLES VACCINES ([address] [facility] Test 00:00:00 of 2) [code = Medical Center SHINGLES VACCINES (1 of 2)] Future Scheduled [address] [facility] Test 00:00:00 (procedure) [code = [facility] 61730295] Future Scheduled [address] [facility] Test 00:00:00 (procedure) [code = [facility] 02203966] Future Scheduled [address] [facility] [facility] Test 00:[facility]:00 malignant neoplasm of [facility] Center cervix (procedure) [code = 486333265] Future Scheduled [address] [facility] Test 00:00:00 malignant neoplasm of [facility] cervix (procedure) [code = 945466635] Future Scheduled 1988 DTAP/TDAP/TD VACCINES CH I [...] 00:00:00 malignant neoplasm of [facility] breast (procedure) [code = 770871836] Future Scheduled [address] [facility] Test 00:00:00 malignant neoplasm of [facility] colon (procedure) [code = 746540115] Future Scheduled [address] [facility] Test 00:00:00 malignant neoplasm of [facility] breast (procedure) [code = 032895040] Future Scheduled [address] [facility] Test 00:00:00 malignant neoplasm of [facility] colon (procedure) [code = 010544794] Encounters Start End Encounter Admission Attending Care Care Encounter Source Date/Time Date/Time Type Type Clinicians Facility Department ID 2021-12-31 Outpatient R WILBUR [facility] SOR [id number] [facility] 13:[facility] Emergency [facility] [id number] [facility]:05[facility] [id number] Univers 18:35:26 ANA [facility]IA [facility] 2021-07-07 Emergency [facility] [id number] Univers 14:28:37 ity [facility] 2021-07-07 Emergency [facility] [id number] Univers 02:55[facility] 2021-07-06 Emergency [facility] [id number] Univers 21:44:02 ity [facility] 2021-07-06 Emergency [facility] [id number] Univers 06:38[facility]46 [facility] 2017-05-22 Inpatient [facility] [id number] St. 16:23:00 [facility] 2022-10-11 2022-10-11 Outpatient Keyanna YUEN [facility] [id number] Univers 00:00:00 00:00:00 JUDITH [facility] 2022-08-21 2022-08-21 Emergency EM Erick, HCACL AERS [id number] [facility] 19:48:00 21:45:00 Oluwadolapo 10 Cl [facility] 2022-08-15 2022-08-15 Outpatient Keyanna YUEN [facility] [id number] Univers 10:30:00 10:30:00 JUDITH chapa [facility] 2022-08-15 2022-08-15 Outpatient Keyanna YUEN [facility] [id number] Univers 10:30:00 10:30:00 [facility] 2022-07-28 2022-07-[address] [facility] 1.2.840.114 [id number] Univers 00:00:00 00:00:00 Brandon JUÁREZPEC 350.1.13.10 [facility] 4[facility]2.7.2.686 [facility] [id number] [address] [facility] 2022-07-07 2022-07-07 [facility] 1.2.840.114 [id number] Univers 00:00:00 00:00:00 Brandon JUÁREZPEC 350.1.13.10 [facility]y of [facility] IALTY 4.2.7.2.686 [facility] [place] [id number] [address] [facility] 2022-06-21 2022-06-21 [facility] 1.2.840.114 [id number] Univers 00:00:00 00:00:00 Judith JUÁREZPEC 350.1.13.10 ity of IALTY 4.2.7.2.686 [facility] [place] [id number] [address] [facility] 2022-06-10 2022-06-10 Outpatient Keyanna MOLINA [facility] [id number] Univers 12:00:00 12:41:24 NASRA ity o f [facility] 2022-06-10 2022-06-10 [facility] 1.2.840.114 [id number] Univers 12:00:00 12:41:24 Care [facility] 350.1.13.10 i ty of [place] 4.2.7.2.686 Roger as JEANNETTE?BLEA [id number] Al juve FRED [address] [place] [address] MEDICAL OFFICE BUILDING 2022-06-06 2022-06-06 Outpatient R [facility] [id number] Univers 08:28:55 23:59:00 JUDITH ity [facility] 2022-06-06 2022-06-06 [facility] 1.2.840.114 [id number] Univers 08:28:55 23:59:00 Encounter Judith Colon [place] 350.1.13.10 ity of [place] 4.2.7.2.686 [facility] [id number] [facility] [address] 2022-06-03 2022-06-03 [facility] 1.2.368.135 [id number] Univers 00:00:00 00:00:00 Judith Colon MULTISPEC 350.1.13.10 ity of IALTY 4.2.7.2.686 [facility] [place] [id number] [address] [facility] 2022-05-30 2022-05-30 Outpatient Keyanna [facility] [id number] Univers 07:46:48 23:59:00 JUDITH ity [facility] 2022-05-22 2022-05-22 [facility] 1.2.976.025 [id number] Univers 00:00:00 00:00:00 Judith Colon MULTISPEC 350.1.13.10 ity of [place]ALTY 4.2.7.2.686 [facility] [place] [id number] [address] [facility] 2022-05-15 2022-05-15 Telephone [facility] 1.2.271.482 [id number] Univers 00:00:00 00:00:00 Judith Colon MULTISPEC 350.1.13.10 [place] [id number] [address] [facility] 2022-05-10 2022-05-10 Professor Of 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 Román, [facility] Main [facility] 1.2.8 40.114 [id number] Univers 10:30:00 10:45:00 Visit Judith Yuen [place] 350.1.13.10 ity of [place] 4.2.7.2.686 [place] [id number] Al dical [address] 2022-05-10 2022-05-10 Outpatient Keyanna YUEN [facility] [id number] Univers 10:30:00 10:30:00 JUDITH [facility] 2022-05-10 2022-05-10 Outpatient Keyanna YUEN [facility] [id number] Univers 10:30:00 10:30:00 JUDITH [facility] 2022-05-09 2022-05-09 Outpatient Keyanna YUEN [facility] [id number] Univers 11:00:00 12:04:38 JUDITH [facility] 2022-05-09 2022-05-09 Office [facility] 1.2.840.114 [id number] Univers 11:00:00 12:04:38 Visit Judith TINAJERO 350.1.13.10 ity of [place] 4.2.7.2.686 [place] [id number] [address] [facility] 2022-05-09 2022-05-09 Outpatient Keyanna YUEN [facility] [id number] Univers 11:00:00 11:00:00 JUDITH [facility] 2022-05-05 2022-05-05 [facility]i [facility] 1.2.840.114 [id number] Univers 00:00:00 00:00:00 Judith TINAJERO 350.1.13.10 it[place] of [place]2.[place].2.686 [place] [id number] [address] [facility] 2022-05-04 2022-05-04 [facility]i [facility] 1.2.840.114 [id number] Univers 00:00:00 00:00:00 Judith Isaiah MULTISPEC 350.1.13.10 [place]2.[place].2.[place] [id number] [address] [facility] 2022-05-03 2022-05-03 Refill [facility] 1.2.840.114 [id number] Univers 00:00:00 00:00:00 Judith Colon MULTISPEC 350.1.13.10 it[place]2.[place].2.686 [place] [id number] [address] [facility] 2022-04-29 2022-04-29 Patient [facility] 1.2.840.114 [id number] Univers 00:00:00 00:00:00 Secure Msg Judith D MULTISPEC 350.1.13.10 it[place] 4[place]2.7.2.686 [place] [id number] [address] [facility]IC 2022-04-15 2022-04-15 Outpatient R RUPERT [facility] [id number] Univers 12:00:00 12:34:59 [facility] ity [facility] 2022-04-15 2022-04-15 Urgent [facility] 1.2.840. 114 [id number] Univers 12:00:00 12:34:[address] [facility] 350.1.13.10 ity of [place] 4.2.7.2.686 Roger as JEANNETTE?BLEA [id number] [address] MEDICAL OFFICE BUILDING 2022-04-08 2022-04-08 Outpatient Keyanna YUEN [facility] [id number] Univers 09:00:00 09:00:00 JUDITH chapa [facility] 2022-04-08 2022-04-08 Outpatient Keyanna YUEN [facility] [id number] Univers 09:00:00 09:00:00 JUDITH chapa [facility] 2022-04-08 2022-04-08 Outpatient Keyanna YUEN [facility] [id number] Univers 09:00:00 09:00:00 JUDITH chapa [facility] 2022-04-08 2022-04-08 Outpatient Keyanna YUEN [facility] [id number] Univers 09:00:00 09:00:00 JUDITH etienne [facility] 2022-03-27 2022-03-27 Orders Doctor MARCELO 1.2.840.114 [id number] Univers 00:00:00 00:00:00 Only Unassigned, ALVARO 350.1.13.[address] [facility] 4.2.7.2.686 Roger as [id number] [address] 2022-03-25 2022-03-25 Remigio Yuen [facility] 1.2.187.916 [id number] Univers 00:00:00 00:00:00 Judith Colon MULTISPEC 350.1.13.10 it[place] [id number] [address] [facility] 2022-03-24 2022-03-24 Castillo Newell [facility] 1.2.840.114 [id number] Univers 00:00:00 00:00:00 Brandon JUÁREZPEC 350.1.13.10 ity of [place] 4.2.7.2.686 [place] [id number] [address] [facility] 2022-03-08 2022-03-08 Outpatient Keyanna REHMAN [facility] [id number] Univers 16:00:00 16:00:00 EDNADELROY chapa [facility] 2022-03-08 2022-03-08 Outpatient Keyanna REHMAN [facility] [id number] Univers 16:00:00 16:00:00 EDNA chapa [facility] 2022-03-04 2022-03-04 Outpatient Keyanna YUEN [facility] [id number] Univers 00:00:00 00:00:00 JUDITH itetienne [facility] 2022-03-04 2022-03-04 Outpatient Keyanna YUEN [facility] [id number] Univers 00:00:00 00:00:00 JUDITH sammi [facility] 2022-02-27 2022-02-27 Ancillary Jolene Levine [facility] 1.2.840. 114 [id number] Univers 08:45:00 09:30:00 Visit Edna Rehman 350.1.13.10 ity of [place].2.7.2.[place] [id number] Al dical NAL 179 [facility] 2022-02-22 2022-02-22 Emergency EM White, HCACL HCACL [id number] [facility] 11:32:00 14:06:00 Brandon [id number] [facility] 2022-02-22 2022-02-22 Emergency EM White, HCACL AERS [id number] [facility] 11:32:00 14:06:00 Brandon 30 [facility] 2022-02-22 2022-02-22 [facility] [id number] [facility] 13:45:00 13:45:00 EDAN itetienne [facility] 2022-02-14 2022-02-14 Ancillary Yelena Schaffer [facility] 1.2. 840.114 [id number] Univers 13:45:00 14:30:00 Visit Edna Rehman 350.1.13.10 ity of [place] 4.2.7.2.686 [place] [id number] Al dical NAL 179 [facility] 2022-02-11 2022-02-11 Ancillary Natalie Hsu [facility] 1 .2.840.114 [id number] Univers 08:45:00 09:30:00 Visit Edna Rehman 350.1.13.10 it[place] of [place] 4.2.7.2.686 [place] [id number] Al dical NAL 179 [facility] 2022-02-05 2022-02-05 Ancillary Michelle Levine [facility] 1.2.840 .114 [id number] Univers 13:00:00 13:45:00 Visit Edna Rehman 350.1.13.10 it[place] of [place] 4.2.7.2.686 [place] [id number] Al dical NAL 179 [facility] 2022-02-01 2022-02-01 Outpatient R ORI [facility] [id number] Univers 14:30:00 16:49:25 EDNA ity of [facility] 2022-02-01 2022-02-01 Ancillary Michelle Levine [facility] 1.2.840 .114 [id number] Univers 14:30:00 15:15:00 Visit Edna Rehman 350.1.13.10 [facility] 4.2.7.[place] [id number] Al dical NAL 179 [facility] 2022-02-01 2022-02-01 Patient Wilfrid [facility] 1.2.840.114 [id number] Univers 00:00:00 00:00:00 Secure Msg Judith Colon MULTISPEC 350.1.13.10 ity of [facility] 4.2.7.2.686 [place] [id number] [facility] AND [address] [facility]INIC 2022-01-28 2022-01-28 Ancillary Sydnie Shaw [facility] 1.2.84 0.114 [id number] Univers 13:00:00 13:45:00 Visit Edna Rehman 350.1.13.10 [facility] [place].2.[place] [id number] Al dical NAL 179 [facility] 2022-01-28 2022-01-28 Orders Doctor DAVIAN 1.2.840.114 [id number] Univers 00:00:00 00:00:00 Only Unassigned, ALVARO 350.1.13.10 ity of [place] [facility] 4.2.7.2.686 Roger as [id number] [facility] [address] 2022-01-18 2022-01-18 Inpatient Eulalia BlackTO MAS Y000 [id number] [facility] 05:50:00 17:53:00 30 [facility] 2022-01-01 2022-01-01 Outpatient RORO ArangoEulalia HCACL LABO [id number] [id number] [facility] 16:46:00 16:46:00 83 [facility] 2022-01-01 2022-01-01 Outpatient Eulalia Black HCAWU REFE [id number] [facility] 14:24:00 14:24:00 17 [facility] 2021-12-27 2021-12-27 Telephone Wilbur NHMABEL 1.2.531.254 [id number] Univers 00:00:00 00:00:00 Champ [place] [facility] 350.1.13.10 ity of [place] [id number] Al randellmirtha ARREDONDO [address] [facility] 2021-12-26 2021-12-26 Refill Wilfrid [facility] 1.2.840.114 [id number] Univers 00:00:00 00:00:00 Judith Colon MULTISPEC 350.1.13.10 ity of IAL[place] 4.2.7.2.686 [facility] [id number] [facility] [address] [facility] 2021-12-19 2021-12-19 Patient Wilfrid [facility] 1.2.840.114 [id number] Univers 00:00:00 00:00:00 Secure Msg Judith Colon MULTISPEC 350.1.13.10 ity of [place] 4.2.7.2.686 [facility] [id number] [facility] AND [address] DI[facility]ETES [facility]INIC 2021-12-14 2021-12-14 Outpatient Keyanna BOWLES [facility] [id number] Univers 15:50:00 17:14:37 CHAMP itetienne [facility] 2021-12-14 2021-12-14 Office Wilbur [facility] 1.2.840.114 [id number] Univers 15:50:00 17:14:37 Visit Champ [place] [facility] 350.1.13.10 ity of CARE 4.2.7.2.686 [facility] AT [id number] Al juve ARREDONDO [address] [place] 2021-12-07 2021-12-07 Outpatient Keyanna BOWLES [facility] [id number] Univers 11:16:01 23:59:00 CHAMP ity of [facility] 2021-12-07 2021-12-07 [facility] Wilbur [facility] 1.2.840.114 [id number] Univers 11:16:01 23:59:00 Encounter Champ [place] [facility] 350.1.13.10 ity of [facility] 4.2.7.2.[place] AT [id number] Me dical VICTORY 804 [facility] 2021-12-07 2021-12-07 Outpatient KOJO HCACL LABO [id number] [facility] 19:02:00 19:02:00 Neighbors 76 Radha cee [facility] 2021-12-07 2021-12-07 Outpatient KOJO HCAKW LABO [id number] [facility] 18:31:00 18:31:00 Neighbors 21 [facility] 2021-12-04 2021-12-04 Outpatient R ORI [facility] [id number] Univers 13:45:00 13:45:00 EDNA [facility] 2021-12-04 2021-12-04 Ancillary Yelena Schaffer [facility] 1.2. 840.114 [id number] Univers 08:00:00 08:45:00 Visit Edna Rehman [place] 350.1.13.10 [facility] 4.2.7.2.686 [facility] [id number] Me dical NAL 179 [facility] 2021-12-04 2021-12-04 Outpatient Keyanna REHMAN [facility] [id number] Univers 08:00:00 08:00:00 EDNA [facility] 2021-12-04 2021-12-04 Outpatient Keyanna REHMAN [facility] [id number] Univers 08:00:00 08:00:00 EDNA [facility] 2021-12-02 2021-12-02 Outpatient Keyanna ECHEVARRIA [facility] [id number] Univers 11:20:00 11:20:00 WILIAN [facility] 2021-12-01 2021-12-01 Outpatient Keyanna ALMARAZ [facility] [id number] Univers 16:20:00 16:20:00 JEAN [facility] 2021-12-01 2021-12-01 Outpatient Keyanna ALMARAZ [facility] [id number] Univers 16:20:00 16:20:00 JEAN [facility] 2021-11-21 2021-11-21 Ancillary Natalie Hsu [facility] 1 .2.840.114 [id number] Univers 10:15:00 16:55:48 Visit Edna Rehman 350.1.13.10 it[place] of [place] 4.2.[place].2.[place] [id number] Al dical NAL 179 [facility] 2021-11-21 2021-11-21 Outpatient R ORI [facility] [id number] Univers 13:00:00 13:00:00 EDNADELROY chapa [facility] 2021-11-21 2021-11-21 Outpatient R ORI [facility] [id number] Univers 10:15:00 10:15:00 EDNA chapa [facility] 2021-11-19 2021-11-19 Outpatient Keyanna BOWLES [facility] [id number] Univers 15:51:24 23:59:00 CHAMP sammi [facility] 2021-11-19 2021-11-19 [facility] 1.2.840.114 [id number] Univers 15:50:00 23:59:00 Encounter Champ A SPECIALTY 350.1.13.10 [place] [id number] Al dicmirtha VICTORY 809 [facility] 2021-11-19 2021-11-19 Office [facility] [id number] Univers 15:20:00 17:06:26 Visit Champ A SPECIALTY [id number] [phone] Al dicmirtha VICTORY 198 [facility] 2021-11-19 2021-11-19 Outpatient Keyanna BOWLES [facility] [id number] Univers 15:20:00 17:06:26 CHAMP chapa [facility] 2021-11-19 2021-11-19 Outpatient Keyanna BOWLES [facility] [id number] Univers 15:20:00 15:20:00 CHAMP chapa [facility] 2021-11-18 2021-11-18 Outpatient R LAMONT [facility] [id number] Univers 18:06:06 23:59:00 RENE servinetienne tyra jackson [facility] 2021-11-18 2021-11-18 Outpatient R LAMONT [facility] [id number] Univers 18:06:06 23:59:00 RENE jackson [facility] 2021-10-15 2021-10-15 Telephone [facility] [id number] Univers 00:00:00 00:00:00 Judith TINAJERO 350.1.13.10 [id number] [id number] [facility] AND [address] DIABETES CLINIC 2021-10-09 2021-10-09 Outpatient R WILFRID [facility] [id number] Univers 08:15:00 09:03:47 JUDITH chapa [facility] 2021-10-09 2021-10-09 Professor Of Genetics 2, Adc Lab [facility] 1.2.840.114 [id number] Univers 08:15:00 08:30:00 Visit Judith Yuen 350.1.13.10 [place] [phone] Al dical [facility] [address] BUILDING 2021-10-09 2021-10-09 Orders Doctor DAVIAN 1.2.840.114 [id number] Univers 00:00:00 00:00:00 Only Unassigned, ALVARO 350.1.13.10 ity of [place] [facility] 4.2.7.2.686 Roger as [phone] [facility] [address] 2021-10-08 2021-10-08 Office [facility] 1.2.840.114 [id number] Univers 09:30:00 10:25:30 Visit Judith TINAJERO 350.1.13.10 [place] [phone] [facility] AND BRON[place] [address] DIABETES CLINIC 2021-10-08 2021-10-08 Outpatient Keyanna YUEN [facility] [id number] Univers 09:30:00 10:25:30 JUDITH chapa [facility] 2021-10-08 2021-10-08 Outpatient Keyanna YUEN [facility] [id number] Univers 09:30:00 09:30:00 [facility] 2021-10-05 2021-10-05 Castillo Parks NHMABEL 1.2.840.114 [id number] Univers 00:00:00 00:00:00 Bernice SPECIALTY 350.1.13.10 it[id number] AT [phone] Al juve ARREDONDO [address] [place] [address] 2021-10-03 2021-10-03 Castillo Parks [facility] 1.2.840.114 [id number] Univers 00:00:00 00:00:00 Bernice SPECIALTY 350.1.13.10 it[id number] AT [phone] Al juve ARREDONDO [address] [place] [address] 2021-10-03 2021-10-03 Castillo Yuen [facility] 1.2.840.114 [id number] Univers 00:00:00 00:00:00 Judith Colon MULTISPEC 350.1.13.10 [place] [phone] [address] DIABETES CLINIC 2021-09-26 2021-09-26 Castillo Yuen [facility] 1.2.840.114 [id number] Univers 00:00:00 00:00:00 Judith Colon MULTISPEC 350.1.13.10 [place] [id number] [address] DIABETES CLINIC 2021-08-24 2021-08-24 Outpatient Keyanna YUEN [facility] [id number] Univers 15:00:00 15:00:00 JUDITH ity [facility] 2021-08-22 2021-08-22 Outpatient Keyanna YUEN [facility] [id number] Univers 08:30:00 08:30:00 JUDITH itetienne [facility] 2021-08-22 2021-08-22 Outpatient Keyanna YUEN [facility] [id number] Univers 08:00:00 08:00:00 JUDITH ity [facility] 2021-08-20 2021-08-20 Refill Delicia [facility] [id number] Univers 00:00:00 00:00:00 Bernice PRIMARY 350.1.13.10 it y [place] [phone] Al dicnd [address] 2021-08-20 2021-08-20 Refill Otilia Beasley [facility] 1.2.840.114 [id number] Univers 00:00:00 00:00:00 Nick MULTISPEC 350.1.13.10 [place] [id number] [facility] AND [address] DIABETES CLINIC 2021-08-20 2021-08-20 [facility] 1.2.840.114 [id number] Univers 00:00:00 00:00:00 Bernice SPECIALTY 350.1.13.10 it[place] AT [phone] [address] 2021-06-27 2021-06-27 Refill Wilfrid [facility] 1.2.840.114 [id number] Univers 00:00:00 00:00:00 Judith Colon MULTISPEC 350.1.13.10 [place] [phone] [address] DIABETES CLINIC 2021-06-15 2021-06-15 Refill Alisha [facility] 1.2.840.114 [id number] Univers 00:00:00 00:00:00 Vipin C PRIMARY 350.1.13.10 i ty [place] [id number] Al dical [address] [place] [address] 2021-06-10 2021-06-10 Outpatient PRIV PRIV [id number] [facility] 00:00:00 00:00:00 [id number] Medica l 2021-05-18 2021-05-18 Refill Charly [facility] 1.2.840.114 [id number] Univers 00:00:00 00:00:00 Bernice SPECIALTY 350.1.13.10 ity of [place] C[place] 4.2.7.2.686 [facility] AT [phone] Al juve ARREDONDO 072 [facility] 2021-05-13 2021-05-13 Lakeishakristi Wilfrid [facility] 1.2.840.114 [id number] Univers 00:00:00 00:00:00 Judith Colon MULTISPEC 350.1.13.10 ity of [place] 4.2.7.2.686 [facility] [phone] [facility] AND JACQUELYN [address] [place] [address] DIABETES CLINIC 2021-05-08 2021-05-08 Office Brandon Iraheta [facility] 1.2.840.114 [id number] Univers 14:02:16 14:32:16 Visit Peace Arango MULTISPEC 350.1.13.10 ity of [place] 4.2.7.2.68 6 [facility] [phone] [facility] AND [address] DIABETES CLINIC 2021-05-08 2021-05-08 Outpatient R [facility] [id number] Univers 14:00:00 14:00:00 [facility] [place] 2021-03-01 2021-03-01 Outpatient R WILFRID [facility] [id number] Univers 00:00:00 00:00:00 JUDITH [facility] [place] 2021-02-23 2021-02-23 Outpatient Keyanna YUEN [facility] [id number] Univers 16:30:00 16:30:00 JUDITH [facility] [place] 2021-02-22 2021-02-22 Outpatient R NIRAV [facility] [id number] Univers 09:00:00 09:00:00 ANDREW [facility] 2021-01-03 2021-01-03 Outpatient R MEGA [facility] [id number] Univers 19:00:00 19:00:00 DAVIAN [facility] 2020-11-27 2020-11-27 Outpatient R PAULA NUNO [facility] [id number] Univers 14:00:00 14:00:[facility] 2020-10-19 2020-10-19 Outpatient R WILFRID, [facility] [id number] Univers 08:00:00 08:00:00 JUDITH [facility] 2020-10-18 2020-10-18 Outpatient R WILFRID, [facility] [id number] Univers 16:30:00 16:30:00 JUDITH [facility] 2020-10-11 2020-10-11 Outpatient R CHARLY, [facility] [id number] Univers 09:30:00 09:30:00 [facility] 2020-10-01 2020-10-01 Outpatient R CHINO, [facility] [id number] Univers 14:30:00 14:30:00 TRACEY [facility] 2020-09-13 2020-09-13 [facility] [id number] Univers 09:30:00 09:30:00 [facility] 2020-08-22 2020-08-22 Outpatient R CRISS, [facility] [id number] Univers 16:20:00 16:20:00 TOM [facility] 2020-08-20 2020-08-20 Outpatient R WALE [facility] [id number] Univers 09:20:00 09:20:00 WILIAN [facility] 2020-08-16 2020-08-16 Outpatient R [facility] [id number] Univers 09:50:00 09:50:00 [facility] 2020-06-23 2020-06-23 Outpatient R VI, [facility] [id number] Univers 13:15:00 13:15:00 JOLENE [facility] 2020-06-04 2020-06-04 Outpatient R [facility] [id number] Univers 15:15:00 15:15:00 [facility] 2020-06-04 2020-06-04 Outpatient R MIKEL, [facility] [id number] Univers 14:15:00 14:15:00 ATTENDING [facility] 2020-05-01 2020-05-01 Outpatient R DELICIA, [facility] [id number] Univers 15:10:00 15:10:00 [facility] 2020-03-06 2020-03-06 Outpatient R IVETT [facility] [id number] Univers 09:50:00 09:50:00 ERMIAS chapa [facility] 2020-01-21 2020-01-21 Outpatient R DELICIA [facility] [id number] Univers 10:15:00 10:15:00 BERNICE chapa [facility] 2020-01-19 2020-01-19 Outpatient R OTILIA BEASLEY [facility] [id number] Univers 11:30:00 11:30:00 sammi [facility] 2019-12-23 2019-12-23 Outpatient R GALE OTILIA [facility] [id number] Univers 10:00:00 10:00:00 sammi [facility] 2019-12-22 2019-12-22 Outpatient R DELICIA [facility] [id number] Univers 08:15:00 08:15:00 BERNICE chapa [facility] 2019-12-09 2019-12-09 Outpatient R DELICIA [facility] [id number] Univers 15:45:00 15:45:00 BERNICE chapa [facility] 2019-12-08 2019-12-08 Outpatient R TJ, [facility] [id number] Univers 08:00:00 08:00:00 JOMAR chapa [facility] 2019-12-07 2019-12-07 Outpatient R BELLA, [facility] [id number] Univers 21:15:00 21:15:00 BERNCIE chapa [facility] 2019-12-06 2019-12-06 Outpatient R [facility] [id number] Univers 19:00:00 19:00:00 sammi [facility] 2019-11-30 2019-11-30 Outpatient R VI [facility] [id number] Univers 09:15:00 09:15:00 JOLENE chapa [facility] 2019-11-23 2019-11-23 Outpatient R VI [facility] [id number] Univers 13:15:00 13:15:00 JOLENE [facility] 2019-09-02 2019-09-05 Inpatient X ABU [facility] [id number] Univers 16:02:51 10:50:00 sammi SINGH [facility] 2019-01-11 2019-01-11 Emergency E MHBL MHBL [id number] MHBL 23:33:00 23:33:00 2017-12-23 2017-12-23 Emergency E AUNG, [facility] [id number] 15:29:00 15:29:00 MARINELLI [facility] 2017-07-30 2017-07-30 Outpatient C [facility] [id number] 12:09:00 12:09:00 [facility] 2017-07-09 2017-07-09 Outpatient [facility] [id number] 00:01:00 00:01:00 [facility] 2017-06-17 2017-06-17 Outpatient [facility] [id number] 18:46:00 18:46:00 [facility] 2017-06-08 2017-06-08 Outpatient [facility] [id number] 00:01:00 00:01:00 [facility] 2017-06-06 2017-06-06 Outpatient [facility] [id number] 21:11:00 21:11:00 [facility] Results Test Description Test Time Test Comments Results Result Comments Source CBC W/AUTO DIFF 2022-08-22 00:07:00 Test Item Value Reference Range Interpretation Comme nts WHITE BLOOD CELL (test code = WBC) 5.6 K/uL 3.5-11.0 N RED BLOOD CELL (test code = RBC) 3.98 M/uL 3.54-5.02 N HEMOGLOBIN (test code = HGB) 9.9 GM/DL 11.0-15.0 L HEMATOCRIT (test code = HCT) 31.8 % 37.0-47.0 L MEAN CELL VOLUME (test code = MCV) 79.9 fL 81.0-99.0 L MEAN CELL HGB (test code = MCH) 24.9 pg 27.0-31.0 L MEAN CELL HGB CONCETRATION (test code = MCHC) 31.1 GM/DL 33.0-37. 0 L RED CELL DISTRIBUTION WIDTH CV (test code = RDW) 16.4 % 11.5- 14.5 H PLATELET COUNT (test code = PLT) 282 K/mm3 150-400 N MEAN PLATELET VOLUME (test code = MPV) 11.4 FL 8.8-13.1 N NEUTROPHIL % (test code = NT%) 64.3 % 40.0-76.0 N LYMPHOCYTE % (test code = LY%) 26.1 % 15.0-40.0 N MIXED % (test code = MX%) 9.6 % 3.0-15.0 N NEUTROPHIL # (test code = NT#) 3.6 K/uL 1.8-7.6 N LYMPHOCYTE # (test code = LY#) 1.5 K/uL 1.0-3.8 N MIXED # (test code = MX#) 0.5 k/mm3 0.1-0.8 N TROPONIN-I [id number] 20:42:00 Test Item Value Reference Range Interpretation Comments TROPONIN-I RAPID < 0.05 <0.05 Performed b y certified (test code = six pack loader operator at [facility]) Ctr"Point of [place] re test critical value notification anddocumentatio n is completed by nursing staf f. Negative <0.05 ng/mLPosi tive >/= 0.05 ng/mL Test resu lts should not be used as abso lute evidence or lackof evide nce of myocardial infa rction and should be evalu atedin the context of all the clinical and laboratory dataavailable. In those instan juan where the test results do notagree with the clinical ev aluation, additional test s shouldbe performed.An el evated troponin alone is not sexton fficient to diagnosemyocard ial infarction. Rather, the pat ient's clinicalpresent ation (history, physical exam) and ECG should be usedin conju nction with troponin in the diagnostic evaluation ofsu spected myocardial infa rction. A serial sampling protocolis recommended to facilitate the identification of temporalchanges in troponin levels. LIVER [id number] 20:33:00 Test Item Value Reference Range Interpretation Comments TOTAL PROTEIN (test code 7.5 GM/DL 5.0-8.0 N Per formed by = PROT) certified opera tor at [facility] ed Ctr ALBUMIN (test code = 3.3 g/dL 3.4-5.0 L ALB) BILIRUBIN TOTAL (test 0.4 MG/DL 0.0-1.0 N code = BILT) SGOT/AST (test code = 23 IUnit/L 15-37 N AST) SGPT/ALT (test code = 17 IUnit/L 30-65 L ALT) GAMMA GLUTAMYL 15 UNITS/L 5-85 N TRANSPEPTIDASE (test code = GGT) ALKALINE PHOSPHATASE 107 IUNIT/L 20-125 N TOTAL (test code = ALKP) AMYLASE (test code = 34 UNITS/L 25-125 N ALICIA) BASIC METABOLIC [id number] 20:21:00 Test Item Value Reference Range Interpretation Comments SODIUM (test code = NA/ABG) 144 mmol/L 134-147 N POTASSIUM (test code = K/ABG) 4.0 mmol/L 3.4-5.0 N CHLORIDE (test code = CL/ABG) 106 mmol/L 100-108 N CREATININE ABG (test code = 0.9 mg/dL 0.6-1.0 N CREAABG) POC IONIZED CALCIUM (test code = 1.16 MMOL/L 1.12-1.32 N POCCA) POC GLUCOSE (test code = POCGLU) 93 MG/DL 70-110 N UA DIPSTICK [id number] 20:15:00 Test Item Value Reference Range Interpretation Comments UA GLUCOSE DIPSTIC POC NEGATIVE NEGATIVE (test code = GLUUP) UA BILIRUBIN DIPSTICK NEGATIVE NEGATIVE (test code = BILU) UA KETONE DIPSTICK POC NEGATIVE NEGATIVE (test code = KETUP) UA SPECIFIC GRAVITY (test 1.020 1.005-1.030 N code = SGU) UA BLOOD DIPSTIC POC NEGATIVE NEGATIVE Perform ed by (test code = BLUP) certified six pack loader operator at [facility] ed [facility] UA PH DIPSTIC POC (test 6 5.0-7.0 N code = PHUP) UA PROTEIN DIPSTICK POC NEGATIVE NEGATIVE (test code = DPROUP) UA UROBILINIOGEN QUAL 1+ 0.2-1.0 A (test code = UROQL) UA NITRITE DIPSTICK POC NEGATIVE Negative (test code = NITUP) UA LEUKOCYTE ESTERASE W Negative NEGATIVE REFLEX (test code = LEUUR) - CT ABD PELVIS W/O [id number] 00:00:00 [facility] CRISTOFER LAKEName: JAI HARDEN : 1970 Sex: FName: JAI HARDEN FSED : 1970 Age/S: 52 / F [address] [facility] Unit #: [id number] Loc: Malik Williamson [address] Phys: Josefa Suarez MD Acct: [id number] Dis Date: Status: REG ER PHONE #: Exam Date: 08/21/20222015 FAX #: Reason: r flank and epigastric pain EXAMS: CPT CODE: [id number] CT ABD PELVIS W/O CONT 33108 PROCEDURE INFORMATION: Exam: CT Abdomen And Pelvis Without Contrast Exam date and time: 08/21/2022 8:05 PM Age: 52 years old Clinical indication: Abdominal pain; Additional info: R flank and epigastric pain TECHNIQUE: Imaging protocol: Computed tomography of the abdomen and pelvis without contrast. Radiation optimization: All CT scans at this facility use at least one of these dose optimization techniques: automated exposure control; mA and/or kV adjustment per patient size (includes targeted exams where dose is matched to clinical indication); or iterative reconstruction. COMPARISON: XA XR UGI W/O KUB 10/26/2018 3:35 PM FINDINGS: ABDOMINAL ORGANS: No acute CT abnormalities of the liver, spleen, pancreas or kidneys are detected. There is no CT evidence of acute renal collecting system obstruction or calcified renal collecting system stone. The 2 cm ovoid nodule in the right adrenal gland and the 13 mm ovoid nodule in the left adrenal gland demonstrate internal attenuation values diagnostic of adenoma. BILIARY: The patient is status post cholecystectomy. Dila tation of the common hepatic duct and common bile duct likely represents post cholecystectomy ectasia. No significant dilatation of the hepatic ducts is noted. GASTROINTESTINAL: Bowel assessment is limited by the absence of bowel contrast the patient is status post gastric bypass. No findings concerning for acute small bowel obstruction are present. The appendix is identified and does not appear acutely inflamed. Increased gas and stool is present in the colon without evidence of obstruction, diverticular disease or acute inflammatory wall thickening. PERITONEUM: There is no evidence of free intraperitoneal air. No significant free intraperitoneal fluid. RETROPERITONEUM: The abdominal aorta is normal in caliber. No evidence of retroperitoneal mass or enlarged retroperitoneal lymph nodes. PELVIS:The patient is status post hysterectomy. No adnexal masses or enlarged pelvic lymph nodes are noted.The bladder is underdistended however appears unremarkable. LOWER THORAX: The lung bases appear clear of acute disease. ADDITIONL FINDINGS: None. PAGE 1 Signed Report (CONTINUED) Name: JAI HARDEN FSED : 1970 Age/S: 52 / F [address] [facility] Unit #: [id number] Loc: Clay Malik [address] Phys: Josefa Suarez MD Acct: [id number] Dis Date: Status: REG ER PHONE #: Exam Date: 08/21/20222015 FAX #: Reason: r flank and epigastric pain EXAMS: CPT CODE: [id number] CT ABD PELVIS W/O CONT 71757 (Continued) IMPRESSION: 1. Increased gas and stool in the colon without evidence ofobstruction, diverticular disease or acute inflammatory wall thickening. 2. Status post cholecystectomy. Dilatation of the common bile duct likely represents post cholecystectomy ectasia however no prior studies are available to document stability. If there is clinical or laboratory evidence of common duct obstruction then MRCP or ERCP should be considered. 3. Bilateral adrenal adenomas for which nofollow-up imaging is recommended. SL:131 at 2111 Reported and signed by: Daniel Morrison M.D. CC: Otilia Beasley MD; Josefa Suarez MD Technologist:Marisa Kline RT(R)(CT) CTDI: DLP: Trnscb Date/Time: 08/21/2022 (2111) [email or web address] Orig Print D/T: S: 08/21/2022 (2) PAGE 2 Signed ReportPOCT URINALYSIS W SPECIFIC [id number] 17:27:00 Test Item Value Reference Range Interpretation Comments POCT U SP GRAV (test 1.020 mg/dl 1.005-1.025 code = 3255) POCT PH U (test code = 5 mg/dl 5-8 3254) POCT U LEUK EST (test trace Negative - code = 3263) Negative POCT U NIT (test code negative Negative - = 3262) Negative POCT U PROT (test code trace Negative - = 3259) Negative POCT U GLU (test code normal Negative - = 3256) Negative POCT U KETONE (test negative Negative - code = 3258) Negative POCT U UROBILI (test normal 0.2-1 code = 3260) POCT U BILI (test code negative Negative - = 3261) Negative POCT U BLD (test code negative Negative - = 3257) Negative POCT U COLOR (test yellow code = 3266) POCT U APPEAR (test clear code = 3267) ROBERTA (test code = ROBERTA) accurate development and interpretation of all internal controls Lab Interpretation Abnormal (test code = 48752-8) [facility]- XR KNEE 1 OR 2 V [id number] 15:41:00 [facility] : 1970 Sex: F Patient Name: JAI HARDEN Unit No: [id number] EXAMS: CPT CODE: [id number] XR KNEE 1 [place] 2 [place] [address] IMAGES PROVIDED: 2 FINDINGS: Postoperative changes from left total knee arthoplasty demonstrated without evidence of immediate complication. No acute fracture is visualized. IMPRESSION: Postoperative exam as above. at 1541 Reported and signed by: Lexa Benitez M.D. CC: Eulalia Arango MD Technologist: SHELIA SILVA (RT.R) Transcribed D/ (8566) [email or web address] [facility] NAME: JAI HARDEN [address] [facility] PHYS: Eulalia Alcala MD : 1970 AGE: 51 SEX: F [place] [address] ACCT NO: [id number] LOC: Y.O20 A PHONE #: [phone] EXAM DATE: 01/18/2022 STATUS: ADM IN FAX #: [phone] RAD #: D/C DT PAGE 1 Signed Report Patient Name: JAI HARDEN Unit No: [id number] EXAMS: CPTCODE: [id number] XR KNEE 1 OR 2 [place] [address] <Continued> Orig Print D/T: S: 01/18/2022 (7842) [facility] NAME: JAI HARDEN [address] [facility] PHYS: DONTRELL.Eulalia Alcala MD : 1970 AGE: 51 SEX: F [place] [address] LOC: Y.O20 A PHONE #: [phone] EXAM DATE: 01/18/2022 STATUS: ADM IN FAX #: [phone] RAD #: D/C DT PAGE 2 Signed ReportGLYCOSYLATED HEMOGLOBIN (HA1C)2022-01-01 16:17:00 Test Item Value Reference Range Interpretation Comments GLYCOSYLATED 5.6 % 4.8-5.9 Any condition t hat shortens HEMOGLOBIN (HA1C) erythocyte survival or (test code = GLYHGB) decreas esmean erythrocyte age (e.g., saeed very from acute blood los s,hemolytic anemai) will fa lsely lower HGBA1c resultsr egardless of the method used . HGBA1c results frompat ients with HbSS, HbCC and HbSc must be interpreted wit hcaution given the patho logical processes, incl uding anemia,increase d red cell turnover, trans fusion requirements, t hatadversely impact HGBA1c a s a marker of long-term glycemiccontrol . Alternative for ms of testing such as fructosaminesho uld be considered for these patients.Any co ndition that shortens erytho cyte survival or dec reasesmean erythrocyte age (e.g., recovery from a cute blood loss,hemolytic anemia) will falsely lower H GBA1c resultsregardle ss of the method used. HG BA1c results from patientswi th HbSS, HbCC, and HbSc must be interpreted wit h cautiongiven th e pathological pr ocesses, including anemi a,increased red cell turnov er, transfusion req uirements, thatadversely i mpact HGBA1c as a marker of long-term glycemiccontrol . Alternative for ms of testing such as fructosaminesho uld be considered for these patients.DONE A T: [facility] [address] [facility], [place], [place] [address] GLYCOSYLATED HEMOGLOBIN (HA1C)2022-01-01 16:16:00 Test Item Value Reference Range Interpretation Comments GLYCOSYLATED 5.6 % 4.8-5.9 N Any condition t hat shortens HEMOGLOBIN (HA1C) erythocyte survival or (test code = GLYHGB) decreas esmean erythrocyte age (e.g., saeed very from acute blood los s,hemolytic anemia) will fa lsely lower HGBA1c resultsr egardless of the method used . HGBA1c results from william fournier HbSS, HbCC, and HbSc must be interpreted with cautiongiven th e pathological pr ocesses, including anemi a,increased red cell turnov er, transfusion req uirements, thatadversely i mpact HGBA1c as a marker of long-term glycemiccontrol . Alternative for ms of testing such as fructosaminesho uld be considered for these patients. COMPREHENSIVE METABOLIC [id number] 13:37:00 Test Item Value Reference Range Interpretation [...] RATE (test code = GFR) mL/mi n/1.73 [id number] Range:Healthy Adults >90 mL/min/1.73 m2 For Chronic Kidney Disease: Stage II Mild Decrease i n GFR 60-90 Stage III Moderate Decrea se in GFR 30-59 St age IV Severe Decre ase in GFR 15-29 St age V Kidney Failur e <15 CREATININE (test code 0.85 mg/dL 0.55-1.30 [...] N TOTAL (test code = ALKP) PROTHROMBIN [id number] 13:18:00 Test Item Value Reference Range Interpretation Comments PROTHROMBIN TIME 12.2 secs 9.7-12.5 N Please note new normal PATIENT (test code = range. PTP) INTERNATIONAL NORMAL 1.10 <2.0 RECOMME NDED THERAPEUTIC RATIO (test code = RANGE FOR ORAL INR) ANTICOAGULANTTR EATMENT: CONDITION INRProphylaxis of venous thrombosis in 2 .0 - 3.0 high-risk medic al or surgical patientsTreatme nt of venous thrombos is 2.0 - 3.0Prevention o f embolism 2.0 - 3.0Prevention o f recurrent embol ism, or 3.0 - 4.5 patie nts with mechanical pros thetic intravascular v rico IS PATIENT ON ANTICOAGULANTS ? NHas Lab been notified if Patient is on Heparin Drip? NOIf Yes, orderCBC, OCCULT BLOOD, PT every other day NTHROMBOPLASTIN TIME [id number] 13:18:00 Test Item Value Reference Range Interpretation Comments PTT ACTIVATED (test 31.1 secs 26.6-34.6 N Please n ote new code = APTT) normal range. IS PATIENT ON ANTICOAGULANTS ? NHas Lab [...] 0-0 N code = NRBC) Basic Metabolic [id number] 06:39:55 Test Item Value Reference Range Interpretation [...] 8.9 mg/dL 8.3-10.5 Calcium Level) Basic Metabolic [id number] 06:39:55 Test Item Value Reference Range Interpretation [...] National Kidney Foundation, http://nkdep.ni h.gov Basic Metabolic [id number] 06:39:55 Test Item Value Reference Range Interpretation [...] ag e have not been validated by [facility] MDRD study and should be interpreted [...] ag e have not been validated by [facility] MDRD study and should be interpreted wit h caution. eGFR R esult Interpretation: eGFR > or = 60 is in the Normal RangeeGF R < 60 may mean kid fadumo diseaseeGFR < 1 5 may mean kidney failure Rang es recommended by the National Kidney Foundation, http://nkdep.ni h.gov Complete Blood Count with Yhfrpbtqpzis9736-06-79 06:13:20 Test Item Value Reference Range Interpretation [...] code = IPF) 0 % N Automated Knptccclqkkm1442-91-99 06:13:20 Test Item Value Reference Range Interpretation Comments Neutro Auto (test code = Neutro 52.5 % 36.0-70.0 Auto) Lymph Auto (test code = Lymph Auto) 37.2 % 12.0-44.0 [place] Auto (test code = [place] Auto) 7.6 % 0.0-11.0 Eos, Auto (test code = Eos, Auto) 2.1 % 0.0-7.0 Basophil Auto (test code = Basophil 0.4 % 0.0-2.0 Auto) Neutro Absolute (test code = Neutro 2.5 x10 1.6-7.4 Absolute) Lymph Absolute (test code = Lymph 1.80 x10 .50-4.60 Absolute) [place] Absolute (test code = [place] .37 x10 .00-1.20 Absolute) Eos Absolute (test code = Eos 0.10 x10 0.00-0.74 Absolute) Baso Absolute (test code = Baso 0.02 x10 0.00-0.21 Absolute) IG [id number] 06:13:20 Test Item Value Reference Range Interpretation Comments IG (test code = IG) 0.2 % 0.0-5.0 IG Abs (test code = IG Abs) [address] Abdomen and Pelvis w/o [id number] 19:36:37Patient: JAI HARDEN Date/Time08/11/2019 18:35 CSTReason for Examabd pain s/p g astric bypass;Other (please specify)ReportCT SCAN OF THE ABDOMEN AND PELVIS WITHOUT CONTRASTDictation Location: [id number] HISTORY: Abdominal pain status post gastric bypassTECHNIQUE: Helical CT of the abdomen and pelvis was performed without IV or oral contrast without complication. Exam was performed on an up-to-date helical CT scanner. Coronal and sagittal images were reconstructed.This exam was performed according to our departmental dose- optimization program, which includes automatic exposurecontrol, adjustment of MA and/or KV according to patient size, and or use of iterative reconstruction technique.DLP: [...] abnormal wall thickening or bowel distention. No freefluid, free air, obvious abscess. Colon unremarkable without evidence of colitis or diverticulitis. Normal air-filled appendix is seen on axial image 68.The visualized bony, muscular and vascular structures are unremarkable.In the pelvis, the bladder is normal. There has been prior hysterectomy. No pelvic free fluid or masses. No adnexal mass.IMPRESSION:1. No acute or significant abnormalities.2. Status post gastric bypass, cholecystectomy, hysterectomy. Final Dictated by: MD Cristobal Maria VDictated DT/TM: 08/11/2019 7:33 pmSigned by: MD Cristobal Maria VSigned (Electronic Signature): 08/11/2019 7:36 pmXR Chest 1 View [id number] 18:54:38Patient: JAI HARDEN Date/Time08/11/2019 18:39 CSTReason for ExamChest painReportCHEST X-RAY 1 VIEWDictation Location: [id number] HISTORY: Chest painTechnique:A single frontal view of the chest was obtained.Findings:Mild degenerative spurring is seen in the lower thoracic spine and at the right AC joint. The aortic, hilar, and cardiac outlines are normal. The lungs are clear ofinfiltrates or nodules. No pneumothorax. No pleural effusions.IMPRESSION:Normal 1 view chest x-ray. Final Dictated by: MD Cristobal Maria VDictated DT/TM: 08/11/2019 6:54 pmSigned by: MD Cristobal Maria VSigned (Electronic Signature): 08/11/2019 6:54 pmLipase [id number] 17:36:02 Test Item Value Reference Range Interpretation Comments Lipase Level (test code = Lipase 20 U/L 13-60 Level) Comprehensive Metabolic [id number] 17:36:01 Test Item Value Reference Range Interpretation [...] A/G 1.6 ratio N Ratio) Comprehensive Metabolic Luzwn8407-08-15 17:36:01 Test Item Value Reference Range Interpretation [...] National Kidney Foundation, http://nkdep.ni h.gov Comprehensive Metabolic Zlfwi0615-74-89 17:36:01 Test Item Value Reference Range Interpretation [...] ag e have not been validated by [facility] MDRD study and should be interpreted [...] ag e have not been validated by [facility] MDRD study and should be interpreted wit h caution. eGFR R esult Interpretation: eGFR > or = 60 is in the Normal RangeeGF R < 60 may mean kid fadumo diseaseeGFR < 1 5 may mean kidney failure Rang es recommended by the National Kidney Foundation, http://nkdep.ni h.gov Complete Blood Count with Ppwjgkjbnwoi2089-86-40 17:32:54 Test Item Value Reference Range Interpretation [...] code = IPF) 0 % N Automated Feygccunpnfl3790-40-04 17:32:54 Test Item Value Reference Range Interpretation Comments Neutro Auto (test code = Neutro 54.7 % 36.0-70.0 Auto) Lymph Auto (test code = Lymph Auto) 36.0 % 12.0-44.0 [place] Auto (test code = [place] Auto) 6.8 % 0.0-11.0 Eos, Auto (test code = Eos, Auto) 1.8 % 0.0-7.0 Basophil Auto (test code = Basophil 0.4 % 0.0-2.0 Auto) Neutro Absolute (test code = Neutro 3.9 x10 1.6-7.4 Absolute) Lymph Absolute (test code = Lymph 2.55 x10 .50-4.60 Absolute) [place] Absolute (test code = [place] .48 x10 .00-1.20 Absolute) Eos Absolute (test code = Eos 0.13 x10 0.00-0.74 Absolute) Baso Absolute (test code = Baso 0.03 x10 0.00-0.21 Absolute) IG [id number] 17:32:54 Test Item Value Reference Range Interpretation Comments IG (test code = IG) 0.3 % 0.0-5.0 IG Abs (test code = IG Abs) 0 x10 N POC [id number] 18:09:54 Test Item Value Reference Range Interpretation Comments Glucose POC (test 105 mg/dL 70-115 If you con auto radio mechanic your code = Glucose POC) patient critically ill, the Hermelinda-Accu Check Infrom II meter should not be used for Glucose determination. Draw a venous Glucose and send to the main Lab for analysis. XR Chest 1 View [id number] 17:13:03Patient: EVA HARDEN Date/Time02/18/2019 17:10 CDTReason for ExamFeverReportCHEST 1 VIEWCLINICAL INFORMATION: FeverCOMPARISON: Chest radiograph dated December 05, 2017FINDINGS:The lungs are well-expanded and clear. No airspace consolidation is seen. No pneumothorax or pleural effusion is present. The cardiac silhouette is normal in size. The bones are grossly intact.IMPRESSION:No acute cardiopulmonary finding.LOCATION: R16 Final Dictated by: MD Dia Adam FDictated DT/TM: 02/18/2019 5:12 pmSigned by: MD Dia Adam FSigned (Electronic Signature): 02/18/2019 5:13 pmCT Abdomen and Pelvis w/o Fonccrgt8388-44-81 16:07:13Patient: EVA HARDEN Date/Time02/18/2019 15:54 CDTReason for ExamAbdominalpainReportEXAM: CT ABDOMEN AND PELVIS WITHOUT CONTRASTINDICATION: Abdominal painCOMPARISON: None availableTECHNIQUE: Routine axial CT images of the abdomen and pelvis were obtained without intravenous c ontrast. Coronal and sagittal reformatted images were submitted for review.IV contrast: NoneDLP: 936mGy-cmFINDINGS:The lung bases are clear. The heart size is normal. No pleural or pericardial effusion.The noncontrast appearance of the liver, spleen, pancreas, and adrenal glands are are normal. Therehas been prior cholecystectomy. Gas is No intrahepatic [...] is normal in caliber.There has been prior hysterectomy. No adnexal mass is identified.The osseous structures are normal.IMPRESSION:1. No acute abnormality is identified in the abdomen or pelvi s.2. Postsurgical changes of prior gastric bypass. No bowel obstruction. Normal appendix.LOCATION: [id number] CT exam was performed according to our departmental dose optimization program, which includes automated exposure control, adjustment of the mA and/or kV according to the patient size and/or use of iterative reconstructive technique. Final Dictated by: MD Moore Melanie CDictated DT/TM: 02/18/2019 4:00 [...] National Kidney Foundation, http://nkdep.ni h.gov Comprehensive Metabolic [id number] 12:49:45 Test Item Value Reference Range Interpretation [...] National Kidney Foundation, http://nkdep.ni h.gov Comprehensive Metabolic Ncoyf2980-64-73 12:49:45 Test Item Value Reference Range Interpretation [...] code = A/G 1.7 ratio N Ratio) Troponin [id number] 12:39:41 Test Item Value Reference Range Interpretation [...] chronic myocard ial injury. Prothrombin Time and [id number] 12:35:43 Test Item Value Reference Range Interpretation Comments Prothrombin Time (test code = 12.5 seconds 9.8-13.4 Prothrombin Time) INR (test code = INR) 1.1 ratio 0.6-1.2 Partial Thromboplastin [id number] 12:35:43 Test Item Value Reference Range Interpretation Comments Partial Thromboplastin Time 33.30 seconds 24.39-37.25 (test code = Partial Thromboplastin Time) Lipase [id number] 12:33:48 Test Item Value Reference Range Interpretation Comments Lipase Level (test code = Lipase 19 U/L 13-60 Level) Automated Nzngppnccmem4935-41-98 12:26:00 Test Item Value Reference Range Interpretation Comments Neutro Auto (test code = Neutro 84.1 % 36.0-70.0 H Auto) Lymph Auto (test code = Lymph Auto) 9.6 % 12.0-44.0 L [place] Auto (test code = [place] Auto) 5.4 % 0.0-11.0 Eos, Auto (test code = Eos, Auto) 0.6 % 0.0-7.0 Basophil Auto (test code = Basophil 0.2 % 0.0-2.0 Auto) Neutro Absolute (test code = Neutro 8.0 x10 1.6-7.4 H Absolute) Lymph Absolute (test code = Lymph .92 x10 .50-4.60 Absolute) [place] Absolute (test code = [place] .52 x10 .00-1.20 Absolute) Eos Absolute (test code = Eos 0.06 x10 0.00-0.74 Absolute) Baso Absolute (test code = Baso 0.02 x10 0.00-0.21 Absolute) IG [id number] 12:26:00 Test Item Value Reference Range Interpretation Comments IG (test code = IG) 0.1 % 0.0-5.0 IG Abs (test code = IG Abs) 0 x10 N Complete Blood Count with Pjqfjywsodbk4607-73-04 12:25:59 Test Item Value Reference Range Interpretation [...] N NRBC Abs) Urinalysis with Culture, if eigjtymmg3825-12-50 12:25:24 Test Item Value Reference Range Interpretation [...] Ind?) rule GL_SJM_UA_MICRO _IN D HCG Qualitative [id number] 12:25:09 Test Item Value Reference Range Interpretation Comments hCG Ur (test code = Negative If the r esult is hCG Ur) "Negative" in p atients suspected to be , recom mend retest with a s ample obtained 48 to 72 hours later, or by ordering a quantitative as say. If the result is "Borderline" te sting should be repea gabriella in 48 to 72 hours. Lot # (test code = [id number] N Lot #) Expiration Dt (test 07/08/2020 N code = Expiration Dt) Neg Control (test Negative code = Neg Control) Pos Control (test Positive code = Pos Control) Internal QC (test Acceptable code = Internal QC) TROPONIN [id number] 09:14:00 Test Item Value Reference Range Interpretation [...] CT, CHEST WITH IV CONTRAST- PE TEST [id number] 08:15:00Reason for exam:- >CHEST PAINIs the patient ?->NoWhat is the patient's sedation requirement?->No SedationFINAL REPORT CT Chest with contrast (PE protocol) History: chest pain Comparison: none Technique: serial axial imaging was performed following up to 100cc of non ionic iodinated int ravenous contrast as per departmental protocol. Multiplanar, and maximum intensity projection imagesare reconstructed and reviewed. This CT examination is performed using one or more of the following dose reduction techniques: Automated exposure control, adjustment of the mA and /or kV according to patient size, and/or use of iterative reconstruction technique. Findings:No mediastinal or hilar lymphadenopathy. Normal size heart. No pericardial effusion. No [...] of pulmonary embolus. No additional acute findings inthe chest. Signed: Storm Awan MDReport Verified Date/Time: 02/12/2019 08:15:11 Reading Location: [facility] Diagnostic Imaging Reading Room - [place] [address] B-TYPE NATRIURETIC FACTOR (BNP)2019-02-12 07:13:00 Test Item Value Reference Range Interpretation Comments B-TYPE NATRIURETIC PEPTIDE (BEAKER) 23 pg/mL 0-100 (test code = 700) TROPONIN [id number] 07:13:00 Test Item Value Reference Range Interpretation [...] acute neurological disease, and persistent tachyarrhythmia.BASIC METABOLIC [id number] 07:09:00 Test Item Value Reference Range Interpretation [...] m DATA TO CALCULA TE ESTIMATED GFR. CREATINE KINASE (CK)2019-02-12 07:07:00 Test Item Value Reference Range Interpretation Comments CREATINE KINASE TOTAL (BEAKER) (test 64 U/L 29-200 code = 380) [id number] 07:07:00 Test Item Value Reference Range Interpretation Comments MAGNESIUM (BEAKER) 2.3 mg/dL 1.6-2.6 Specimen slightly (test code = 627) hemolyzed PT/[id number] 06:43:00 Test Item Value Reference Range Interpretation [...] thrombosis and/or pulmonary embolus.HIGH RISK: Target INR is 2.5-3.5 for patients wiht mechanical heart valves.CBC W/PLT COUNT & AUTO [id number] 06:37:00 Test Item Value Reference Range Interpretation [...] = 2801) RAD, CHEST, 1 VIEW, NON [id number] 05:59:00Reason for exam:->CHEST PAINIs the patient ?->UnknownFINAL REPORT Chest, 1 view. History: Chest pain Comparison: None available. Findings: The cardiomediastinal silhouette and pulmonary vasculature are within normal limits for a portable exam. The lungs are clear without evidence of consolidation or effusion. The soft tissues and osseous structures are intact. IMPRESSION: No acute cardiopulmonary abnormality. 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 [facility] [id number] 16:41:00 Test Item Value Reference Range Interpretation Comments GLUBED (test code = 123 MG/DL 70-110 H Performe d by certified GLUBED) 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 loader 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 [facility] - MRI L-SPINE W/O [id number] 13:50:00 FAX: Otilia Butler MD [phone] [place]: St: ADM FAX: Nichole Orozco MD [phone] FAX: Jocelin Jones MD [phone] Name: EVA HARDEN : 1970 Age/S: 48/F [address] [place] [address] Unit #: [id number] Loc: [address] [address] Phys: Jocelin Jones MD Acct: [id number] Dis Date: Status: ADM IN PHONE #: [phone] Exam Date: 01/19/2019 1343 FAX #: [phone] Reason: radiculopathy EXAMS: CPT CODE: [id number] MRI L-SPINE W/O CONT 45980 MRI lumbar spine without contrast 01/19/2019 HISTORY: [...] is present. At L1-2, no HNP, canal stenosis, or neural foraminal narrowing is present. At L2-3, [...] the lateral projection At L5-S1, mild disc desiccation is noted. There is mild annular bulging and posterior lateral osteophytes resulting in mildbilateral neural foraminal narrowing and no significant spinal canal stenosis. Mild bilateral facet hypertrophy is noted. IMPRESSION: 1. Mild bilateral neural foraminal narrowing at L4-5 and L5-S1. 2. Mild spinal canal stenosis at L4-5. 3. No disc herniation. SL: [id number] PAGE 1 Signed Report (CONTINUED) FAX: Y Beasley,Otilia L MD [phone] [place]: St: [facility] FAX: Nichole Orozco MD [phone] FAX: Jocelin Jones MD [phone] Name: EVA HARDEN [facility] : 1970 Age/S: 48/F [address] [place] [address] Unit #: [id number] Loc: [place] [place] [address] Phys: Jocelin Jones MD Acct: [id number] Dis Date: Status: ADM IN PHONE #: [phone] Exam Date: 01/19/2019 1343 FAX #: [phone] Reason: radiculopathy EXAMS: CPT CODE: [id number] MRI L-SPINE W/O CONT 42220 (Continued) at 1350 Reported and signed by: Champ Loya M.D. CC:Otilia Beasley MD; Nichole Orozco MD; Jocelin Jones MD Technologist: Dale Good RT(R)(CT)(MR) Trnnjrd Date/Time/By: 01/19/2019 (1350) : By: [email or web address] Orig Print D/T: S: 01/19/2019 (6511) PAGE 2 Signed Report- MRI BRAIN W/O [id number] 13:47:00 FAX: Otilia Butler MD [phone] [place]: St: [facility] FAX: Nichole Orozco MD [phone] FAX: Jocelin Jones MD [phone] Name: [facility]ARD[facility] : 1970 Age/S: 48/F [address] [place] [address] Unit #:[id number] Loc: [address] [address] Phys: Jocelin Jones MD Acct: [id number] Dis Date: Status: ADM IN PHONE #: [phone] Exam Date: 01/19/2019 1343 FAX #: [phone] Reason: ms EXAMS: CPT CODE: [id number] MRI BRAIN W/O CONT 22657 MRI brain without contrast 01/19/2019 HISTORY: Weakness to extremities. PROCEDURE: Multiplanar multisequence imaging of the brain is performed without contrast Comparison is made to CT performed on 10/21/2017 FINDINGS: Diffusion-weighted imaging demonstrates no acute ischemic event. No evidence for acute infarct is present. No acute hemorrhage, midline shift, extra-axial fluid collection, or hydrocephalus is present. Craniocervical junction and corpus callosum are within normal limits. There is no blooming artifact on the heme sequence to suggest remote hemorrhage.No significant area of abnormal increased FLAIR signal is present. The visualized mastoid air cells are clear. There is no air-fluid level in the visualized paranasal sinuses. The expected intracranialflow voids are present. Right nasal septal deviation is present. IMPRESSION: No acute intracranial abnormality. SL: [id number] at 1347 Reported and signed by: Champ Loya M.D. CC: Otilia Beasley MD; Nichole Orozco MD; Jocelin Jones MD Technologist: RT Emil(R)(CT)(MR) Trnscrd Date/Time/By: 01/19/2019 (0690) : By: [email or web address] Orig Print D/T: S: 01/19/2019 (7045) PAGE 1 Signed ReportCBC W/AUTO [id number] 08:32:00 Test Item Value Reference Range Interpretation [...] REQUIRED (test code NO = MDIFF) VITAMIN [id number] 08:29:00 Test Item Value Reference Range Interpretation Comments VITAMIN B12 (test code = VITB12) 386 pg/mL 193-986 N C REACTIVE [id number] 07:54:00 Test Item Value Reference Range Interpretation Comments C REACTIVE PROTEIN (test code = < 2.9 MG/L 0.0-2.9 N CRP) SED RATE [id number] 07:52:00 Test Item Value Reference Range Interpretation Comments SED RATE WESTERGREN (test code = 2 mm/hr 0-20 N SEDW) BASIC METABOLIC [id number] 06:56:00 Test Item Value Reference Range Interpretation [...] total (including troponin done in ED)THYROID STIMULATING [id number] 06:56:00 Test Item Value Reference Range Interpretation Comments THYROID STIMULATING 0.18 0.42-5.47 L Results in HORMONE (test code = TSH) mi lli-International Units/mL COMMENTS: 3 troponins total (including troponin done in ED)[id number] 06:56:00 Test Item Value Reference Range Interpretation Comments TROPONIN-I < 0.015 ng/mL 0.000-0.045 N Negative: <= 0 .045 Positive: (test code = >= 0.046 Correl ation with TROPI) serial results, other cardiac markers andclinical findings is nec essary to determine the clinicalsignifi cance of this result. Results using different metho dologies should not be c omparedto one another as arline titative results may jesús y by method. COMMENTS: 3 troponins total (including troponin done in ED)[id number] 12:21:00 Test Item Value Reference Range Interpretation Comments TROPONIN-I < 0.015 ng/mL 0.000-0.045 N Negative: <= 0 .045 Positive: (test code = >= 0.046 Correl ation with TROPI) serial results, other cardiac markers andclinical findings is nec essary to determine the clinicalsignifi cance of this result. Results using different metho dologies should not be c omparedto one another as arline titative results may jesús y by method. COMMENTS: 3 troponins total (including troponin done in ED)- CT ANGIO CHEST 2019-01-18 10:39:00 Name: EVA HARDEN [facility] : 1970 Age/S: 48 / F [address] [place] [address] Unit #: [id number] Loc: [place] [address] Phys: Dick Silverman MD Acct: [id number] Dis Date: Status: REG ERPHONE #: [phone] Exam Date: 01/18/2019 1018 FAX #: [phone] Reason: chest pain, SOB, elevated d-dimer EXAMS: CPT CODE: [id number] CT ANGIO CHEST [address]114 PROCEDURE: CTA CHEST INDICATION: Chest pain. Shortness of breath. Elevated d- dimer. COMPARISON: Current CXR, CT chest October 2018, [...] intraluminal filling defect. MEDIASTINUM: The mediastinal contents areunremarkable. No adenopathy. HEART: The cardiac chambers are unremarkable. No pericardial effusion.VASCULAR STRUCTURES: Mild atherosclerosis aortic arch. No aneurysm, dissection or other acute abnormality. The proximal great vessels are partially obscured by artifact related to dense intravascular contrast, otherwise unremarkable the superior vena [...] No acute abnormality demonstrated to account for thepatient's PAGE 1 Signed Report (CONTINUED) Name: EVA HARDEN [facility] : 1970 Age/S: 48 / F [address] [place], [place] [address] Unit #: [id number] Loc: [place] [address] Phys: Dick Silverman MD Acct: [id number] Dis Date: Status: REG ER PHONE #: [phone] Exam Date: 01/18/2019 1018 FAX #: Reason: chest pain, SOB, elevated d-dimer EXAMS: CPT CODE: [id number] CT ANGIO CHEST 12736(Continued) symptoms. SL: [id number] at 1039 Reported and signed by: Chuy Diaz M.D. CC: Otilia Beasley MD; Dick Kim Technologist:RT Pedro Pablo(R) CTDI: DLP: Trnscb Date/Time: 01/18/2019 (1039) Lexx Orig Print D/T: S: 01/18/2019 (6462) PAGE 2 Signed Report [id number] 08:12:00 Test Item Value Reference Range Interpretation [...] TESTS AND APPROPRIATECLIN ICAL EUALUATIONS. HEPATIC FUNCTION [id number] 08:09:00 Test Item Value Reference Range Interpretation [...] 98 IUnit/L 20-125 N code = ALKP) [id number] 08:09:00 Test Item Value Reference Range Interpretation Comments LIPASE (test code = LIP) 88 IUnit/L 73-393 N CBC W/AUTO [id number] 08:03:00 Test Item Value Reference Range Interpretation [...] NO = MDIFF) - XR CHEST 2 [id number] 08:01:00 FAX: Otilia Butler MD [phone] [place]: St: REG FAX: Dick Silverman MD [phone] --------- Name: EVA HARDEN [facility] : 1970 Age/S: 48/F [address] [place] [address] Unit #: [id number] Loc: [facility] [place] [address] [id number] Phys: Dick Silverman MD Acct: [id number] Dis Date: Status: REG ER PHONE #: [phone] Exam Date: 01/18/2019 0758 FAX #: [phone] Reason: Chest Pain EXAMS: CPT CODE: [id number] XR CHEST 2V 02730 2 view chest x-ray performed January 18, 2019 0751 hours. COMPARISON: October 24, 2018. CLINICAL HISTORY: Chest pain. DISCUSSION: 2 views/ films of the chest are submitted. Lungs are clear bilaterally. Cardiomediastinal silhouette is normal. Osseous structures are within normal limits. IMPRESSION: Normal Chest X-ray. at 0801 Reported and signed by: Darling Tamayo M.D. CC: Otilia Beasley MD; Dick Silverman MD Technologist: RT Bunny(R) Trnscrd Date/Time/By: 01/18/2019 (08) : By: KyleG Orig Print D/T: S: 01/18/2019 (0804) PAGE 1 Signed ReportTROPONIN-I [id number] 07:45:00 Test Item Value Reference Range Interpretation Comments TROPONIN-I RAPID 0.01 ng/mL 0.00-0.08 N Performed b y certified (test code = six pack loader operator at [facility] TROPIRAP) Ctr Negative: < = 0.08 Positive: >= 0. 09An elevated tropon in value alone is not sexton fficient todiagnose a my ocardial infarction. Rat her, the patient scljames al presentation (h istory, physical exam) and ECGshould be us ed in conjunction wit h troponin in thediagnosti c evaluation of s uspected myocardial infa rction. Aserial samplin g protocol is recommended to facilitate the identification of temporal changes in trop onin levels characteristic of [place]. CHEMISTRY 8 [id number] 07:37:00 Test Item Value Reference Range Interpretation [...] ML/MIN (test code = GFRBED) CHEMISTRY 8 [id number] 07:37:00 Test Item Value Reference Range Interpretation Comments ISTAT-SODIUM (test 142 MMOL/L 134-147 N code = NAP) ISTAT-POTASSIUM (test 3.4 MMOL/L 3.4-5.0 N code = KP) ISTAT-CHLORIDE (test 103 MMOL/L 100-108 N Perform ed by code = CLP) certified opera tor at [facility] ISTAT CARBON DIOXIDE 24.0 mmol/L 21-33 [...] (test code = GFRBED) - DUP VEIN UNI/[id number] 15:22:00 Name: EVA HARDEN [facility] : 1970 Age/S: 48 / F [address] [place] [address] Unit #: [id number] Loc: [place] [address] Phys: Isis Estrada MD Acct: [id number] Dis Date: [id number] Status: DIS IN PHONE #: [phone] Exam Date: 10/29/2018 1431 FAX #: [phone] Reason: DVT EXAMS: CPT CODE: [id number] DUP VEIN UNI/LTD 67838 PROCEDURE: UNILATERAL UPPER EXTREMITY VENOUS ULTRASOUND INDICATION: [...] waveforms. IMPRESSION: 1. No deep venous thrombosis identifiedin the right upper extremity. SL: [id number] at 1522 Reported and signed by: Candie Chanel M.D. 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 pack loader operator at [facility] CBC W/AUTO [id number] 08:32:00 Test Item Value Reference Range Interpretation [...] (test code NO = MDIFF) COMPREHENSIVE METABOLIC [id number] 07:51:00 Test Item Value Reference Range Interpretation [...] 20-125 N TOTAL (test code = ALKP) [id number] 07:51:00 Test Item Value Reference Range Interpretation Comments MAGNESIUM (test code = MAG) 2.00 mg/dL 1.8-2.4 N [id number] 20:41:00 Test Item Value Reference Range Interpretation Comments GLUBED (test code = 91 MG/DL 70-110 N Performe d by certified GLUBED) six pack loader operator at [facility] [id number] 19:24:00 Test Item Value Reference Range Interpretation Comments GLUBED (test code = 158 MG/DL 70-110 H Performe d by certified GLUBED) six pack loader operator at [facility] [id number] 19:24:00 Test Item Value Reference Range Interpretation Comments GLUBED (test code = 106 MG/DL 70-110 N Performe d by certified GLUBED) six pack loader operator at [facility] URINALYSIS [id number] 11:17:00 Test Item Value Reference Range Interpretation [...] 0-5 /HPF NONE SEEN SQU) UA CULT [id number] 11:17:00 Test Item Value Reference Range Interpretation Comments UA CULTURE NEEDED? NO, WBC<10 Culture Chk Criteria not met, (test code = Criteria Urine Culture UACULT) cancelled. [id number] 09:11:00 Test Item Value Reference Range Interpretation Comments GLUBED (test code = 85 MG/DL 70-110 N Performe d by certified GLUBED) six pack loader operator at [facility] BASIC METABOLIC [id number] 08:13:00 Test Item Value Reference Range Interpretation [...] code = 8.9 mg/dL 8.0-10.5 N CA) [id number] 08:13:00 Test Item Value Reference Range Interpretation Comments MAGNESIUM (test code = MAG) 2.10 mg/dL 1.8-2.4 N CBC W/AUTO [id number] 07:40:00 Test Item Value Reference Range Interpretation [...] DIFF REQUIRED (test code NO = MDIFF) [id number] 23:54:00 Test Item Value Reference Range Interpretation Comments GLUBED (test code = 243 MG/DL 70-110 H Performe d by certified GLUBED) six pack loader operator at [facility] PROTHROMBIN [id number] 07:45:00 Test Item Value Reference Range Interpretation Comments PROTHROMBIN TIME 13.4 SECONDS 9.3-12.9 H PATIENT (test code = PTP) INTERNATIONAL NORMAL 1.2 0.8-1.2 N TARGET INR BY RATIO (test code = INDICATIO N Indication INR) INR1. Prophylax is of venous thrombos is 2.0 - 3.0 (orthoped ic surgery), Proph ylaxis of venous throm bosis (other than hig h-risk surgery), Treat ment of Deep Vein Thrombosis/Pulm onary Embolism, Preve ntion of systemic emb olism - Tissue heart va lves, Acute Myocardia l Infarction (to prevent systemic emboli sm), Valvular heart disease, Atrial Fibrillation, Bileaflet mecha nical valve in aortic position.2. Mec hanical prosthetic valv es (high risk), 2. 5 - 3.5 Presence of Lup us Anticoagulant o r Antiphospholipi d Antibodies, Pre vention of systemic emb olism - Acute Myocardia l Infarction (to prevent recurrent infar ct). THROMBOPLASTIN TIME [id number] 07:45:00 Test Item Value Reference Range Interpretation Comments THROMBOPLASTIN TIME 37.6 Seconds 25.0-39.5 N Therape utic Range: PARTIAL (test code = 61.8-83 .8 Sec PTT) Effective 10/06/2013 BASIC METABOLIC [id number] 07:34:00 Test Item Value Reference Range Interpretation [...] be done morning of Heart CathCBC W/AUTO [id number] 07:31:00 Test Item Value Reference Range Interpretation [...] COMMENTS: To be done morning of Heart [id number] 07:23:00 Test Item Value Reference Range Interpretation Comments GLUBED (test code = 73 MG/DL 70-110 N Performe d by certified GLUBED) 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 pack loader operator at [facility] [id number] 21:06:00 Test Item Value Reference Range Interpretation Comments GLUBED (test code = 145 MG/DL 70-110 H Performe d by certified GLUBED) six pack loader operator at [facility] [id number] 17:23:00 Test Item Value Reference Range Interpretation Comments GLUBED (test code = 82 MG/DL 70-110 N Performe d by certified GLUBED) six pack loader operator at [facility] - XR UGI W/O [id number] 17:17:00 FAX: Keaton Campbell MD [phone] [place]: St: [facility] FAX: Scooby Wyman MD [phone] [facility]: 1970 Age/S: 48/F [address] [place] [address] Unit #: [id number] Loc: [address] [address]: Keaton Campbell MD Acct: [id number] Dis Date: Status: ADM IN PHONE #: [phone] Exam Date: 10/26 1650 FAX #: [phone] Reason: hx of gastric bypass at another institution. C/ EXAMS: CPT CODE: [id number] XR UGI W/O KUB 50088 ESOPHAGRAM AND UPPER GI: HISTORY: History of gastric bypass. Now with inability to swallow solids. Vomiting with regurgitation. COMPARISON EXAM: Recent CT scans of the chest. No previous esophagrams or upper GIs for comparison. TECHNIQUE: The patient was given regular barium to drink. Intermittent fluoroscopic observation was made and multiple spot films were obtained. A 14 mm barium tablet was given and imaging was performed at the gastroesophageal junction. TOTALFLUOROSCOPY TIME: 3.6 minutes. REFERENCE AIR KERMA: 202 mGy. FINDINGS: The patient was able to swallow thin barium without difficulty. The esophagus has a normal appearance without abnormal impressions or dilatation. Barium flowed easily across the gastroesophageal junction and promptly into a normal-appearing jejunal loop. No evidence of obstruction to the flow of liquid barium. At that point, a 14mm barium tablet was administered and observation was made. The barium tablet flowed across the GE junction, but then was retained in [...] Signed Report (CONTINUED) FAX: Keaton Campbell MD [phone] [place]: St: [facility] FAX: Scooby Wyman MD [phone] Name: EVA HARDEN [facility] : 1970 Age/S: 48/F [address] [place] [address] Unit #: [id number] Loc: [place] [address] Phys: Keaton Campbell MD Acct: [id number] Dis Date: Status: ADM IN PHONE #: [phone] Exam Date: 10/26/2018 1650 FAX #: [phone] Reason: hx of gastric bypass at another institution. C/ EXAMS: CPT CODE: [id number] XR UGI W/O KUB 45282 (Continued) at 1717 Reported and signed by: Fidel Gomez M.D. 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 pack loader operator at [facility] BASIC METABOLIC [id number] 08:13:00 Test Item Value Reference Range Interpretation [...] code = 8.7 mg/dL 8.0-10.5 N CA) [id number] 08:08:00 Test Item Value Reference Range Interpretation Comments GLUBED (test code = 82 MG/DL 70-110 N Performe d by certified GLUBED) six pack loader operator at [facility] CBC W/AUTO [id number] 07:50:00 Test Item Value Reference Range Interpretation [...] DIFF REQUIRED (test code NO = MDIFF) [id number] 20:42:00 Test Item Value Reference Range Interpretation Comments GLUBED (test code = 97 MG/DL 70-110 N Performe d by certified GLUBED) six pack loader operator at [facility] [id number] 16:18:00 Test Item Value Reference Range Interpretation Comments GLUBED (test code = 94 MG/DL 70-110 N Performe d by certified GLUBED) six pack loader operator at [facility] - PULM VENT PERF [id number] 15:28:00 FAX: Scooby Wyman MD [phone] [place]: St: ADM FAX: Chrsi Galindo MD [phone] Name: EVA HARDEN [facility] : 1970 Age/S: 48/F [address] [place] [address] Unit #: [id number] Loc: [address] [address] Phys: Chris Ny MD Acct: [id number] Dis Date: Status: ADM IN PHONE #: [phone] Exam Date: 10/25/2018 1516 FAX #: [phone] Reason: CP, HIGH D-DIMER, R/O PE EXAMS: CPT CODE: [id number] PULM VENT PERF IMAG 31953 NUCLEAR MEDICINE VENTILATION/PERFUSION LUNG SCAN HISTORY: Chest [...] perfusion defect. IMPRESSION: Low probability for pulmonary embolus.SL:01 at 1528 Reported and signed by: Malachi Pham M.D. CC: Scooby Durant MD; Chris Ny MD Technologist: Bernice Sloan, RT(N)(CT)(PET) Trnscrd Date/Time/By: 10/25/2018 (1528) : By: Jannet Orig Print D/T: S: 10/25/2018 (1538) PAGE 1 Signed [id number] 14:32:00 Test Item Value Reference Range Interpretation Comments GLUBED (test code = 107 MG/DL 70-110 N Performe d by certified GLUBED) six pack loader operator at [facility] [id number] 09:53:00 Test Item Value Reference Range Interpretation Comments GLUBED (test code = 108 MG/DL 70-110 N Performe d by certified GLUBED) six pack loader operator at [facility] BASIC METABOLIC [id number] 09:07:00 Test Item Value Reference Range Interpretation [...] total (including troponin done in ED)THYROID STIMULATING [id number] 09:07:00 Test Item Value Reference Range Interpretation Comments THYROID STIMULATING 2.30 0.42-5.47 N Results in HORMONE (test code = TSH) mi lli-International Units/mL 10/25/18629COMMENTS: 3 troponins total (including troponin done in ED) [id number] 09:07:00 Test Item Value Reference Range Interpretation Comments TROPONIN-I < 0.015 ng/mL 0.000-0.045 N Negative: <= 0 .045 Positive: (test code = >= 0.046 Correl ation with TROPI) serial results, other cardiac markers andclinical findings is nec essary to determine the clinicalsignifi cance of this result. Results using different metho dologies should not be c omparedto one another as arline titative results may jesús y by method. 10/25/18629COMMENTS: 3 troponins total (including troponin done in ED)- CT CHEST W/O [id number] 09:04:00 Name: EVA HARDEN [facility] : 1970 Age/S: 48 / F [address] [place] [address] Unit #: [id number] Loc: [place] [address] Phys: Scooby Durant MD Acct: [id number] Dis Date: Status: ADM IN PHONE #: [phone] Exam Date: 10/25/2018 0830 FAX #: [phone] Reason: pleurisy EXAMS: CPT CODE:[id number] CT CHEST W/O CONTRAST 16252 PROCEDURE: CT CHEST WITHOUT CONTRAST INDICATION: Chest [...] iterative reconstruction technique CT Radiation Dose DLP 371 mGy-cm FINDINGS: LUNGS AND PLEURA: The lungs are clear. No pleuralabnormality. MEDIASTINUM: The mediastinal contents are unremarkable. No adenopathy. HEART: The cardiac chambers are unremarkable. No pericardial effusion. VASCULAR STRUCTURES: Minimal calcified plaquealong the normal caliber descending thoracic aorta. The superior vena cava is unremarkable. UPPER ABD OMEN: Patient is post gastric bypass and cholecystectomy. MUSCULOSKELETAL: Stable. IMPRESSION: 1. Noacute intrathoracic abnormality demonstrated by noncontrast CT chest. 2. Previous gastric bypass andcholecystectomy. SL:01 at 0904 Reported and signed by: Malachi Pham M.D. PAGE 1 Signed Report (CONTINUED) Name: EVA HARDEN [place] : 1970 Age/S: 48 / F [address] [place] [address] Unit #: [id number] Loc: [place] [address] Phys: Scooby Durant MD Acct: [id number] Dis Date: Status: ADM IN PHONE #: Exam Date: 10/25/2018 08 FAX #: [phone] Reason: pleurisy EXAMS: CPT CODE: [id number] CT CHEST W/O CONTRAST 54713 (Continued) CC: Scooby Durant MD Technologist:Leonie Azar, RT(R)(CT) CTDI: DLP: Trnscb Date/Time: 10/25/2018 (903) Jannet Orig Print D/T: S: 10/25/2018 (906) CTDI: DLP:PAGE 2 Signed UthkmkRIMT1P%2018-10-25 08:45:00 Test Item Value Reference Range Interpretation Comments HGBA1C% (test code = HGBA1C%) 5.5 %A1C 4.8-6.0 N - DUP VEIN [id number] 08:40:00 Name: EVA HARDEN : 1970 Age/S: 48 / F [address] [place] [address] Unit #: [id number] Loc: [place] [address] Phys: Scooby Durant MD Acct: [id number] Dis Date: Status: ADM IN PHONE #: [phone] Exam Date: 10/25/2018 08 FAX #: [phone] Reason: elevated ddimer EXAMS: CPT CODE: [id number] DUP VEIN RASHID 43783 PROCEDURE: BILATERAL LOWER EXTREMITY VENOUS ULTRASOUND INDICATION: Chest pain, elevated d- dimer COMPARISON: None. TECHNIQUE: Sonographic evaluation of the [...] No deep venous thrombosis. 2. Complex right Gaspar's cyst. SL:01 at 0840 Reported and signed by: Malachi Pham M.D. CC: Scooby Durant MD Technologist: Michelle Silverman RDMS(A) Trnscb Date/Time: 10/25/2018 (0840) t.Shantell Print D/T: S: 10/25/2018 (0843) Probe: PAGE 1 Signed ReportCBC W/AUTO [id number] 08:21:00 Test Item Value Reference Range Interpretation [...] DIFF REQUIRED (test code NO = MDIFF) [id number] 03:19:00 Test Item Value Reference Range Interpretation Comments TROPONIN-I < 0.015 ng/mL 0.000-0.045 N Negative: <= 0 .045 Positive: (test code = >= 0.046 Correl ation with TROPI) serial results, other cardiac markers andclinical findings is nec essary to determine the clinicalsignifi cance of this result. Results using different metho dologies should not be c omparedto one another as arline titative results may jesús y by method. COMMENTS: 3 troponins total (including troponin done in ED)B-TYPE NATRIURETIC [id number] 00:32:00 Test Item Value Reference Range Interpretation Comments B-TYPE NATRIURETIC PEPTIDE (test 20.4 PG/ML 0-100 N code = BNP) - XR CHEST 1 [id number] 00:18:00 FAX: Pam Weinstein DO [phone] [place]: St: REG Name: EVA HARDEN [facility] : 1970 Age/S: 48/F [address] [place] [address] Unit #: [id number] Loc: [place] [address] Phys: Pam Benitez DO Acct:[id number] Dis Date: Status: REG ER PHONE #: [phone] Exam Date: 10/24/2018 2355 FAX #: [phone] Reason: Chest Pain EXAMS: CPT CODE: [id number] XR CHEST 1 V 51134 EXAM: CR, XR chest one view:10/24/2018 HISTORY: Chest Pain TECHNIQUE: 1 view of the chest. COMPARISON: 10/21/2017 FINDINGS: Trachea is midline. Heart is normal in size. Pulmonary vascularity is unremarkable. There is no airspace consolidation, pleural effusion or pneumothorax. No significant osseous abnormalities are seen. IMPRESSION: No acute cardiopulmonary disease seen. SL: [JSYED-H] at 0018 Reported and signed by: Chace Marquez M.D. CC: Pam Benitez DO Technologist: Bi Cao, RT(R); [facility] Date/Time/By: 10/25/2018 (0018) : By: [email or web address] Orig Print D/T: S: 10/25/2018 (0022) PAGE 1 Signed ReportBASIC METABOLIC PANEL 2018-10-25 00:11:00 Test Item Value Reference Range Interpretation [...] 8.3 mg/dL 8.0-10.5 N CA) HEPATIC FUNCTION [id number] 00:11:00 Test Item Value Reference Range Interpretation [...] IUnit/L 20-125 N code = ALKP) PROTHROMBIN [id number] 23:57:00 Test Item Value Reference Range Interpretation Comments PROTHROMBIN TIME 12.4 SECONDS 9.3-12.9 N PATIENT (test code = PTP) INTERNATIONAL NORMAL 1.1 0.8-1.2 N TARGET INR BY RATIO (test code = INDICATIO N Indication INR) INR1. Prophylax is of venous thrombos is 2.0 - 3.0 (orthoped ic surgery), Proph ylaxis of venous throm bosis (other than hig h-risk surgery), Treat ment of Deep Vein Thrombosis/Pulm onary Embolism, Preve ntion of systemic emb olism - Tissue heart va lves, Acute Myocardia l Infarction (to prevent systemic emboli sm), Valvular heart disease, Atrial Fibrillation, Bileaflet mecha nical valve in aortic position.2. Mec hanical prosthetic valv es (high risk), 2. 5 - 3.5 Presence of Lup us Anticoagulant o r Antiphospholipi d Antibodies, Pre vention of systemic emb olism - Acute Myocardia l Infarction (to prevent recurrent infar ct). [id number] 23:57:00 Test Item Value Reference Range Interpretation Comments D-DIMER (test 1162 ng/mlFEU <=500 HH THROMBOSIS A ND/OR code = PULMONARY EMBOL ISM AND THE DDIMER) CLINICAL CUT- O FF VALUE FOR EXCLUSION (500 ng/mL FEU) OF THESE CONDIT IONSIS VALIDATED BY TH E HOTEL FRONT DESK CLERK OF THE METHOD. A NEGATIVE D-DI ROBERTO RESULT WHEN COMBINED W ITH A CLINICALASSESSM ENT OF LOW PRETEST PROBABI LITY HAS BEEN SHOWN TO H AVEA HIGH NEGATIVE PREDIC TIVE VALUE OF DVT OR PE. D -DIMER VALUES >500 ng/ mL FEU ARE NOT DIAGNOSTIC FOR DVT, PEor DIC WITHOU T OTHER CONFIRMATORY TE STS AND APPROPRIATECLIN ICAL EUALUATIONS. CBC W/AUTO [id number] 23:50:00 Test Item Value Reference Range Interpretation [...] = MDIFF) CT Abdomen and Pelvis w/o [id number] 23:22:30Patient: EVA HARDEN Date/Time05/16/2018 23:06 CDTReason for ExamAbdominal p ainReportCT Abdomen and Pelvis w/o ContrastLOCATION: [id number]: Abdominal painCOMPARISON: CT of theabdomen and pelvis 12/23/2017TECHNIQUE: Axial images of the abdomen and pelvis were obtained without intravenous contrast. Coronal and sagittal reformatted images were created.One or more of the following dose reduction techniques were used: Automated exposure control, adjustment of the mA and/or kV according to patient size, and/or utilization of iterative reconstruction technique.DISCUSSION:Lower thorax: Minimal bibasilar atelectasis.Hepatobiliary: Unremarkable. No biliary ductal dilatation.Gallblad percy: Removed.Spleen: Unremarkable.Pancreas: Unremarkable.Adrenals: Small fluid density nodules [...] wall thickening or evidence of obstruction. There are no inflammatory changes in the area of the appendix.Bones/soft tissues: There are mild degenerative changes throughout the spine, pelvis, and hips. Mild diastases recti is present.IMPRESSION:No acute abnormalities in the abdomen or pelvis. Final Dictated by: MD Valdez Alfred EDictated DT/TM: 05/16/2018 11:18 pmSigned by: MD Valdez Alfred ESigned (Electronic Signature): 05/16/2018 11:22 [id number] 01:00:00 Test Item Value Reference Range Interpretation Comments Lipase (test code = LIP) 28 U/L 13-60 N Comprehensive Metabolic [id number] 01:00:00 Test Item Value Reference Range Interpretation [...] National Kidney Foundation,http :[email or web address] ep.nih.gov BHCG, Urine, [id number] 00:45:00 Test Item Value Reference Range Interpretation Comments Preg Qual [Ur] (test code = HUHCG) Negative Negative N CBC with [id number] 00:44:00 Test Item Value Reference Range Interpretation [...] code = ALYMPH) 2.6 K/cumm 0.5-4.6 N [place] Abs (test code = AMONO) 0.4 K/cumm 0.0-1.2 N Eos Abs (test code = AEOS) 0.38 K/cumm 0.00-0.74 N Baso Abs (test code = ABASO) 0.1 K/cumm 0.00-0.21 N Urinalysis [id number] 00:32:00 Test Item Value Reference Range Interpretation Comments Color (test code = COLOR) Yellow Yellow,Straw,Pl N yellow Clarity (test code = Sl Cloudy Clear A CLAR) Specific [place] (test 1.016 1.001-1.035 N code = SPGR) [...] Bacteria (test code = Many /HPF BACT) [id number] 17:42:00 Test Item Value Reference Range Interpretation Comments Lipase (test code = LIP) 28 U/L 13-60 N Comprehensive Metabolic [id number] 17:42:00 Test Item Value Reference Range Interpretation [...] National Kidney Foundation,http :[email or web address] ep.nih.gov CBC with [id number] 17:00:00 Test Item Value Reference Range Interpretation [...] code = ALYMPH) 2.0 K/cumm 0.5-4.6 N [place] Abs (test code = AMONO) 0.3 K/cumm 0.0-1.2 N Eos Abs (test code = AEOS) 0.34 K/cumm 0.00-0.74 N Baso Abs (test code = ABASO) 0.0 K/cumm 0.00-0.21 N 01833& PELVIS W/O [id number] 16:47:19CT OF THE ABDOMEN AND PELVIS WITHOUT CONTRASTLocation code: R 16CLINICAL HISTORY: Abdominal painCOMPARISON: None available.TECHNIQUE:5 mm contiguous axial images were obtained from the diaphragmatic domethrough the symphysis pubis. No contrast was administered per routinerenal stone protocol. Axial images were reformatted to create coronalreconstructions.One or more of the following dose reduction adrien hniqueswere used: Automated exposure control, adjustment of the mA and/or kVaccording to patient size, and/or utilization of iterativereconstruction technique. DLP: 1611 mGy-cmFINDINGS: ABDOMEN The visualized structures of the lower thorax are unremarkable.There is fatty infiltration of the liver. No d iscrete mass lesions areidentified on noncontrast imaging. Unopacified [...] is noted adjacent to the proximal jejunal loop which mayrelate to postsurgical changes.Remaining small and large bowel loops are normal in caliber. Normalcaliber appendix is identified in the right lower [...] absence of the gallbladder and uterus.POC Glucose, [id number] 07:45:00 Test Item Value Reference Range Interpretation Comments POC Glucose (test 158 mg/dL 70-115 H Notify RN or MDIf you code = POCGLUC) consider you r patient critically ill, the [facility] Accu-Chek InformII metershould not be used for Glucose determinations. Draw a venous Glucose and send to the Main Lab for Analysis. POC Glucose, [id number] 20:31:00 Test Item Value Reference Range Interpretation Comments POC Glucose (test 167 mg/dL 70-115 H If you con auto radio mechanic your code = POCGLUC) patient crit ically ill, the [facility] Accu- Chek InformII meters hould not be used for Glu cose determinations. Draw a venous Glucose and send to the Main Lab for Analysis. POC Glucose, [id number] 16:44:00 Test Item Value Reference Range Interpretation Comments POC Glucose (test 148 mg/dL 70-115 H If you con auto radio mechanic your code = POCGLUC) patient crit ically ill, the [place] Accu- Chek InformII meters hould not be used for Glu cose determinations. Draw a venous Glucose and send to the Main Lab for Analysis. POC Glucose, [id number] 11:25:00 Test Item Value Reference Range Interpretation Comments POC Glucose (test 173 mg/dL 70-115 H If you con auto radio mechanic your code = POCGLUC) patient crit ically ill, the [place] Accu- Chek InformII meters hould not be used for Glu cose determinations. Draw a venous Glucose and send to the Main Lab for Analysis. POC Glucose, [id number] 07:30:00 Test Item Value Reference Range Interpretation Comments POC Glucose (test 191 mg/dL 70-115 H If you con auto radio mechanic your code = POCGLUC) patient crit ically ill, the [place] Accu- Chek InformII meters hould not be used for Glu cose determinations. Draw a venous Glucose and send to the Main Lab for Analysis. POC Glucose, [id number] 06:33:00 Test Item Value Reference Range Interpretation Comments POC Glucose (test 181 mg/dL 70-115 H If you con auto radio mechanic your code = POCGLUC) patient crit ically ill, the [place] Accu- Chek InformII meters hould not be used for Glu cose determinations. Draw a venous Glucose and send to the Main Lab for Analysis. Comprehensive Metabolic [id number] 05:28:00 Test Item Value Reference Range Interpretation [...] National Kidney Foundation,http ://nkd ep.nih.gov CBC with [id number] 05:03:00 Test Item Value Reference Range Interpretation [...] code = ALYMPH) 1.6 K/cumm 0.5-4.6 N [place] Abs (test code = AMONO) 0.3 K/cumm 0.0-1.2 N Eos Abs (test code = AEOS) 0.23 K/cumm 0.00-0.74 N Baso Abs (test code = ABASO) 0.0 K/cumm 0.00-0.21 N POC Glucose, [id number] 21:57:00 Test Item Value Reference Range Interpretation Comments POC Glucose (test 176 mg/dL 70-115 H If you con auto radio mechanic your code = POCGLUC) patient crit ically ill, the [place] Accu- Chek InformII meters hould not be used for Glu cose determinations. Draw a venous Glucose and send to the Main Lab for Analysis. POC Glucose, [id number] 16:25:00 Test Item Value Reference Range Interpretation Comments POC Glucose (test 148 mg/dL 70-115 H If you con auto radio mechanic your code = POCGLUC) patient crit ically ill, the [place] Accu- Chek InformII meters hould not be used for Glu cose determinations. Draw a venous Glucose and send to the Main Lab for Analysis. CT NECK SOFT TISSUE WO [id number] 15:49:06Exam: CT soft tissue neck withoutcontrast.Location: [id number]: Neck painTechnique: Unenhanced spiralslices were taken through the neck.Sagittal and coronal reformations were performed. One or more of thefollowing radiation dose reduction techniques was used: Automaticexposure control, adjustment of mA and/or KV according to the patient'ssize, and/or utilization of iterative reconstruction technique. Findings:The parotid space, carotid space, health benefits specialist space, prevertebral spaceand the fossa of Rosenm?ller are normal. The oral and hypopharynx areunremarkable.The salivary glands are normal. No sialadenitis or sialolithiasis isseen.The larynx and trachea are normal. The cervical and visualized thoracicesophagus is unremarkable. No lymphadenopathy is present in eitherjugular or either posterior chain.The thyroid gland is normal. The soft tissues are unremarkable.Impression:Unremarkable exam.CT CHEST W/O CONTRAST 2017-12-06 15:45:29Exam: CT thorax withoutcontrast.Location: [id number]: Chest painTechnique: Unenhancedspiral slices were taken from the apices of thelungs to the upper abdomen. Sagittal and coronal reformations wereperformed. 100 cc of Isovue-300 were used. One or more of the followingradiation dose reduction techniques was used: Automatic exposurecontrol, adjustment of mA and/or KV according to the patient's size,and/or utilization of iterative reconstruction technique. Findings:Consolidation is present in the left lower lobe. Some subsegmentalatelectasis is present in the lingula. The remainder of the lungs isclear. The pulmonary vasculature is normal. No pulmonary congestion orarterial hypertension is seen.The mediastinum and the pulmonary mike are normal. No lymphadenopathy ispresent. The heart size is normal.No pericardial effusion is seen.The visualized upper abdominal organs are unremarkable. The patient i sundergone a previous left main procedure.No incidental thyroid nodules are notedImpression: Left lower lobe pneumonia.POC Glucose, [id number] 11:54:00 Test Item Value Reference Range Interpretation Comments POC Glucose (test 200 mg/dL 70-115 H If you con auto radio mechanic your code = POCGLUC) patient crit ically ill, the [place] Accu- Chek InformII meters hould not be used for Glu cose determinations. Draw a venous Glucose and send to the Main Lab for Analysis. POC Glucose, [id number] 07:17:00 Test Item Value Reference Range Interpretation Comments POC Glucose (test 180 mg/dL 70-115 H If you con auto radio mechanic your code = POCGLUC) patient crit ically ill, the [place] Accu- Chek InformII meters hould not be used for Glu cose determinations. Draw a venous Glucose and send to the Main Lab for Analysis. Comprehensive Metabolic [id number] 06:33:00 Test Item Value Reference Range Interpretation [...] is not provided , and the patient isMichelle-Florinda can, multiply by 1.2 12. If sex is not prov ided, and thepatient is female, multipl y by 0.742. Results for patients <18 ye ars ofage have not been validated by th e MDRD study and jose d be interpretedwith caution.eGFR Re sult Interpretation: eGFR > or = 60 is in t he Normal RangeeGF R < 60 may mean kidney diseaseeGFR < 1 5 may mean kidney failureRange s recommended by the National Kidney Foundation,http ://nkd ep.nih.gov CBC with [id number] 06:13:00 Test Item Value Reference Range Interpretation [...] code = ALYMPH) 1.6 K/cumm 0.5-4.6 N [place] Abs (test code = AMONO) 0.4 K/cumm 0.0-1.2 N Eos Abs (test code = AEOS) 0.31 K/cumm 0.00-0.74 N Baso Abs (test code = ABASO) 0.0 K/cumm 0.00-0.21 N POC Glucose, [id number] 23:37:00 Test Item Value Reference Range Interpretation Comments POC Glucose (test 152 mg/dL 70-115 H If you con auto radio mechanic your code = POCGLUC) patient crit ically ill, the [place] Accu- Chek InformII meters hould not be used for Glu cose determinations. Draw a venous Glucose and send to the Main Lab for Analysis. POC Glucose, [id number] 17:16:00 Test Item Value Reference Range Interpretation Comments POC Glucose (test 170 mg/dL 70-115 H If you con auto radio mechanic your code = POCGLUC) patient crit ically ill, the [place] Accu- Chek InformII meters hould not be used for Glu cose determinations. Draw a venous Glucose and send to the Main Lab for Analysis. D-Dimer, [id number] 15:56:00 Test Item Value Reference Range Interpretation Comments D-Dimer, Quant (test code = DDQNT) 1610 ng/mL 0-500 H 64927&PERFUS [id number] 14:47:54Dictation location: R 16Clinical indication: Shortness of breath, left shoulder painFindings: After the administration of 10 mCi of Xe-133 inhalation gas, posteriorventilation images were obtained which show good ventilation to bothlungs with normal washout.Following ventilation 3mCi of technetium 99 MAA was injectedintravenously and multiple spot static perfusion images were obtained.There is good perfusion to both lungs without evidence of segmental orsubsegmental mismatched defects. The above findings have a lowprobability of pulmonary emboli.IMPRESSION:Low probability of pulmonary emboli.US DUPLX EXT VEINS CHRISTIAN [id number] 12:42:18DICTATION LOCATION: [id number]: DVTCOMPARISON: None available.TECHNIQUE: Duplex sonography of theright lower extremity with color andspectral Doppler, with and without compression. FINDINGS:There is normal compressibility and augmentation of the right commonfemoral, superficial femoral and popliteal veins. Color doppler flowwas visualized in the right anterior and posterior tibial veins. No calfvein thrombosis is detected.Doppler examination shows normal spontaneous and phasic flow.There is a 2.5 x 0.8 x 1.8 cm complex fluid collection in the rightpopliteal fossa.IMPRESSION: No evidence of deepvenous thrombosis in the visualized venous segmentsof the right lower extremity.Small right Gaspar's cyst. XR CHEST 2V, [id number] 11:43:22EXAM: Chest x-ray, 2 viewsLOCATION: [id number]: Chest radiograph 12/04/2017 and 11/26/2017INDICATION: chest painDISCUSSION:PA and lateral chest radiographs were submitted for interpretation.Tubing courses over the left upper abdomen.Mild left basilar opacity may be due to atelectasis. The left costophrenic angle is blunted.The lungs are otherwise grossly clear.No pneumothorax is seen. The cardiac darrian houette is mildly enlarged. No acute osseous abnormalities are identified. IMPRESSION:1. Mild left basilar opacity may be due to atelectasis. Questionablesmall left pleural effusion.2. Mildly enlarged cardiac silhouette.3. Otherwise, no acute cardiopulmonary abnormalities.POC Glucose, [id number] 07:08:00 Test Item Value Reference Range Interpretation Comments POC Glucose (test 201 mg/dL 70-115 H Notify RN or MDIf you code = POCGLUC) consider you r patient critically ill, the [place] Accu-Chek InformII metershould not be used for Glucose determinations. Draw a venous Glucose and send to the Main Lab for Analysis. POC Glucose, [id number] 00:19:00 Test Item Value Reference Range Interpretation Comments POC Glucose (test 173 mg/dL 70-115 H Notify RN or MDIf you code = POCGLUC) consider you r patient critically ill, the [place] Accu-Chek InformII metershould not be used for Glucose determinations. Draw a venous Glucose and send to the Main Lab for Analysis. POC Glucose, [id number] 21:49:00 Test Item Value Reference Range Interpretation Comments POC Glucose (test 189 mg/dL 70-115 H If you con auto radio mechanic your code = POCGLUC) patient crit ically ill, the [place] Accu- Chek InformII meters hould not be used for Glu cose determinations. Draw a venous Glucose and send to the Main Lab for Analysis. POC Glucose, [id number] 17:09:00 Test Item Value Reference Range Interpretation Comments POC Glucose (test 193 mg/dL 70-115 H Notify RN or MDIf you code = POCGLUC) consider you r patient critically ill, the [place] Accu-Chek InformII metershould not be used for Glucose determinations. Draw a venous Glucose and send to the Main Lab for Analysis. POC Glucose, [id number] 12:20:00 Test Item Value Reference Range Interpretation Comments POC Glucose (test 166 mg/dL 70-115 H If you con auto radio mechanic your code = POCGLUC) patient crit ically ill, the [place] Accu- Chek InformII meters hould not be used for Glu cose determinations. Draw a venous Glucose and send to the Main Lab for Analysis. POC Glucose, [id number] 09:03:00 Test Item Value Reference Range Interpretation Comments POC Glucose (test 212 mg/dL 70-115 H If you con auto radio mechanic your code = POCGLUC) patient crit ically ill, the [place] Accu- Chek InformII meters hould not be used for Glu cose determinations. Draw a venous Glucose and send to the Main Lab for Analysis. Comprehensive Metabolic [id number] 05:54:00 Test Item Value Reference Range Interpretation [...] National Kidney Foundation,http ://nkd ep.nih.gov CBC with [id number] 05:40:00 Test Item Value Reference Range Interpretation [...] code = ALYMPH) 1.7 K/cumm 0.5-4.6 N [place] Abs (test code = AMONO) 0.9 K/cumm 0.0-1.2 N Eos Abs (test code = AEOS) 0.04 K/cumm 0.00-0.74 N Baso Abs (test code = ABASO) 0.0 K/cumm 0.00-0.21 N POC Glucose, [id number] 05:04:00 Test Item Value Reference Range Interpretation Comments POC Glucose (test 202 mg/dL 70-115 H If you con auto radio mechanic your code = POCGLUC) patient crit ically ill, the [place] Accu- Chek InformII meters hould not be used for Glu cose determinations. Draw a venous Glucose and send to the Main Lab for Analysis. XR CHEST 1 [id number] 03:04:28AFTER HOURS SERVICE ON: 12/04/2017 3:04 AMAP Portable ChestLocation Code [id number]: Status Post Lap Gastric BypassFINDINGS: There are no infiltrates. There are no pleural effusions. There is nopneumotho rax. Cardiac silhouette and mediastinum appear within normallimits. Surgical drain is noted projecting over the mid abdomen and leftupper quadrant.IMPRESSION: No active intrathoracic findings.POC Glucose, Blood 2017-12-04 02:06:00 Test Item Value Reference Range Interpretation Comments POC Glucose (test 213 mg/dL 70-115 H If you con auto radio mechanic your code = POCGLUC) patient crit ically ill, the [place] Accu- Chek InformII meters hould not be used for Glu cose determinations. Draw a venous Glucose and send to the Main Lab for Analysis. POC Glucose, [id number] 21:15:00 Test Item Value Reference Range Interpretation Comments POC Glucose (test 236 mg/dL 70-115 H If you con auto radio mechanic your code = POCGLUC) patient crit ically ill, the [place] Accu- Chek InformII meters hould not be used for Glu cose determinations. Draw a venous Glucose and send to the Main Lab for Analysis. POC Glucose, [id number] 16:03:00 Test Item Value Reference Range Interpretation Comments POC Glucose (test 235 mg/dL 70-115 H If you con auto radio mechanic your code = POCGLUC) patient crit ically ill, the [place] Accu- Chek InformII meters hould not be used for Glu cose determinations. Draw a venous Glucose and send to the Main Lab for Analysis. POC Glucose, [id number] 11:24:00 Test Item Value Reference Range Interpretation Comments POC Glucose (test 269 mg/dL 70-115 H If you con auto radio mechanic your code = POCGLUC) patient crit ically ill, the [place] Accu- Chek InformII meters hould not be used for Glu cose determinations. Draw a venous Glucose and send to the Main Lab for Analysis. XR CHEST 2 [id number] 18:35:18CLINICAL INFORMATION: Preprocedural evaluation. Checkup..Dictation Location: R [...] National Kidney Foundation,http ://nkd ep.nih.gov CBC with [id number] 18:08:00 Test Item Value Reference Range Interpretation [...] code = ALYMPH) 2.0 K/cumm 0.5-4.6 N [place] Abs (test code = AMONO) 0.3 K/cumm 0.0-1.2 N Eos Abs (test code = AEOS) 0.14 K/cumm 0.00-0.74 N Baso Abs (test code = ABASO) 0.0 K/cumm 0.00-0.21 N US DUPLX EXT VEIN COMPRS, [id number] 13:22:06DICTATION LOCATION: [id number]: I82.409: ACUTE EMBOLISM AND THOMBOS UNSP DEEP [...] the visualized venous segmentsof the right lower extremity.A 3.7 cm Gaspar's cyst.
--- NOTE | 2022-09-18 23:36 | EDPHYS ---
Physician Documentation [facility] Name: Carlee Aguilar Age: 52 yrs Sex: Female : 1970 Arrival Date: 09/18/2022 Time: 20:30 Bed IW7 Private MD: ED Physician Luis Angel Hernandez HPI: 09/18 20:57 This 52 yrs old Female presents to ER via Ambulatory with complaints of Epigastric pm1 Pain, Arm Pain, Dizziness, Shortness Of Breath, Chest Pain. 20:57 The patient presents with abdominal pain in the epigastric area. Onset: The pm1 symptoms/episode began/occurred 3 day(s) ago. The symptoms do not radiate. Associated signs and symptoms: Pertinent positives: Right-sided chest pain, dizziness, right arm pain, Pertinent negatives: nausea, vomiting, and diarrhea. The symptoms are described as achy. Modifying factors: The symptoms are alleviated by nothing, the symptoms are aggravated by nothing. Severity of pain: in the emergency department the pain is unchanged. The patient has not experienced similar symptoms in the past. The patient has been recently seen by a physician: Dr. Simpson. 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 - Social history:: Smoking status: Patient/guardian denies using tobacco, the patient reports quitting approximately 10 years ago. ROS: 20:57 Constitutional: Negative for fever, chills, and weight loss. pm1 20:57 Back: Negative for injury and pain, MS/Extremity: Negative for injury and deformity, Skin: Negative for injury, rash, and discoloration. 20:57 Cardiovascular: Positive for chest pain. 20:57 Respiratory: Positive for shortness of breath. 20:57 Abdomen/GI: Positive for abdominal pain, of the epigastric area. 20:57 Neuro: Positive for dizziness. 20:57 All other systems are negative. Exam: 20:57 Constitutional: This is a well developed, well nourished patient who is awake, alert, pm1 and in no acute distress. Head/Face: Normocephalic, atraumatic. 20:57 Back: No spinal tenderness. No costovertebral tenderness. Full range of motion. Skin: Warm, dry with normal turgor. Normal color with no rashes, no lesions, and no evidence of cellulitis. MS/ Extremity: Pulses equal, no cyanosis. Neurovascular intact. Full, normal range of motion. 20:57 Cardiovascular: Exam negative for acute changes, Rate: normal, Rhythm: regular, Pulses: no pulse deficits are appreciated, Heart sounds: normal, normal S1and S2. 20:57 Respiratory: Exam negative for acute changes, respiratory distress, shortness of breath, Breath sounds: are clear throughout. 20:57 Abdomen/GI: Inspection: obese Palpation: abdomen is soft and non-tender, in all quadrants. 20:57 Neuro: Exam negative for acute changes, Orientation: is normal, Mentation: is normal, Motor: is normal, moves all fours. Vital Signs: 20:49 BP 139 / 61; Pulse 71; Resp 18; Temp 98.4; Pulse Ox 92% on R/A; Weight 104.33 kg; tw5 Height 5 ft. 2 in. (157.48 cm); Pain 7/10; 20:49 Body Mass Index 42.07 (104.33 kg, 157.48 cm) tw5 MDM: 20:57 Differential diagnosis: myocardia ischemia or infarction, non-specific abd pain, CVA, pm1 pneumonia. 21:05 Patient medically screened. pm1 21:05 Data reviewed: vital signs. pm1 23:35 ED course: Patient left prior to being placed in ER room. pm09/18 20:57 Order name: EKG; Complete Time: 20:57 pm1 09/18 20:57 Order name: Cardiac monitoring pm09/18 20:57 Order name: EKG - Nurse/Tech pm09/18 20:57 Order name: IV Saline Lock pm09/18 20:57 Order name: Labs collected and sent pm09/18 20:57 Order name: O2 Per Protocol pm1 09/18 20:57 Order name: O2 Sat Monitoring pm1 EC:06 Rate is 66 beats/min. Rhythm is regular, Normal Sinus Rhythm with No ectopy. QRS [place] pm1 is Normal. [place] interval is normal. QRS interval is normal. QT interval is normal. No Q waves. T waves are Normal. No ST changes noted. Clinical impression: Normal ECG. Administered Medications: No medications were administered Disposition: 09/19 03:09 Co-signature as Attending Physician, Luis Angel Hernandez MD. rn 03:10 I reviewed the patient's care provided by the Advanced Practice Provider and agree with rn the diagnosis and treatment plan. Disposition Summary: 09/18/22 23:35 Discharge Ordered Location: Home pm1 Problem: new pm1 Symptoms: are unchanged pm1 Condition: Undetermined pm1 Diagnosis - Chest pain, unspecified pm1 - Dizziness and giddiness pm1 - Abdominal pain, unspecified pm1 Followup: pm1 - With: Emergency Department - When: As needed - Reason: Worsening of condition Followup: pm1 - With: Private Physician - When: 2 - 3 days - Reason: Recheck today's complaints, Continuance of care, Re-evaluation by your physician Discharge Instructions: - Discharge Summary Sheet pm1 - Abdominal Pain, Adult pm1 - Nonspecific Chest Pain, Adult pm1 - Dizziness pm1 Forms: - Medication Reconciliation Form pm1 - Thank You Letter pm1 - Antibiotic Education pm1 - Prescription Opioid Use pm1 Signatures: Dispatcher [employer] EDMS Luis Angel Hernandez MD MD rn Guerrero Solano, NADEEN DENTAL CREAM MAKER pm1 Isa Sanders tw5 Corrections: (The following items were deleted from the chart) 09/18 21:20 20:57 Head Brain Wo Cont+CT.RAD.BRZ ordered. EDMS EDMS 21:21 20:57 Chest Single View+RAD.RAD.BRZ ordered. EDMS EDMS
--- NOTE | 2022-09-18 23:36 | ER ---
Nurse's Notes [facility] Name: Carlee Aguilar Age: 52 yrs Sex: Female : 1970 Arrival Date: 09/18/2022 Time: 20:30 Bed IW7 Private MD: Diagnosis: Chest pain, unspecified;Dizziness and giddiness;Abdominal pain, unspecified Presentation: 09/18 20:49 Chief complaint: Chief complaint: Patient states: "When I got to breath in it feels tw5 like I cannot take a deep breath. I went to Dr. Roman yesterday and he told me to go to the ER, but I waited to come today. I am just feeling dizzy and like I cannot catch my breath.". Coronavirus screen: Vaccine status: Patient reports receiving the 2nd dose of the covid vaccine. [employer]. Ebola Screen: Patient negative for fever greater than or equal to 101.5 degrees Fahrenheit, and additional compatible Ebola Virus Disease symptoms Patient denies exposure to infectious person. Patient denies travel to an Ebola-affected area in the 21 days before illness onset. Initial Sepsis Screen: Does the patient meet any 2 criteria? No. Patient's initial sepsis screen is negative. Does the patient have a suspected source of infection? No. Patient's initial sepsis screen is negative. Risk Assessment: Do you want to hurt yourself or someone else? Patient reports no desire to harm self or others. Onset of symptoms was September 16, 2022. 20:49 Method Of Arrival: Ambulatory tw5 20:49 Acuity: JADYN 2 tw5 Triage Assessment: 20:53 General: Appears uncomfortable, Behavior is calm, cooperative, appropriate for age. tw5 Pain: Complains of pain in left breast Pain currently is 7 out of 10 on a pain scale. 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 - Social history:: Smoking status: Patient/guardian denies using tobacco, the patient reports quitting approximately 10 years ago. Screenin:40 [facility] ED Fall Risk Assessment (Adult) History of falling in the last 3 months, tw5 including since admission. Abuse screen: Denies threats or abuse. Denies injuries from another. Nutritional screening: No deficits noted. Tuberculosis screening: No symptoms or risk factors identified. Assessment: 23:32 General: called in lobby no answer. tw5 Vital Signs: 20:49 BP 139 / 61; Pulse 71; Resp 18; Temp 98.4; Pulse Ox 92% on R/A; Weight 104.33 kg; tw5 Height 5 ft. 2 in. (157.48 cm); Pain 7/10; 20:49 Body Mass Index 42.07 (104.33 kg, 157.48 cm) tw5 ED Course: 20:30 Patient arrived in ED. as 20:35 Guerrero Solano NP is PHCP. pm1 20:35 Luis Angel Hernandez MD is Attending Physician. pm1 20:52 Triage completed. tw5 20:53 Arm band placed on right wrist. tw5 20:55 Patient notified of wait time. tw5 21:03 EKG done, by ED staff, reviewed by Luis Angel Hernandez MD. tw5 23:41 Patient has correct armband on for positive identification. tw5 23:41 No provider procedures requiring assistance completed. Patient did not have IV access tw5 during this emergency room visit. Administered Medications: No medications were administered Medication: 23:41 VIS not applicable for this client. tw5 Outcome: 23:35 Discharge ordered by . pm1 23:40 Discharged to Unknown tw5 23:40 Condition: stable 23:40 Discharge instructions given to patient left prior to blood work and discharge instructions. 23:41 Patient left the ED. tw5 Signatures: Veronica Mays Patrick, NP FRONTEND ENGINEER pm1 Isa Sanders tw5
[2022-09-18 23:53] VITALS: BP 139/61; TEMP 98.4; O2SAT 92
--- NOTE | 2022-09-19 14:22 | EKG ---
Test Date: 2022-09-18 Test Time: 21:02:20 Web Content Specialist: MEASUREMENT RESULTS: Intervals: Rate: 66 OR: 148 QRSD: 94 QT: 438 QTc: 459 [place]: P: 29 OR: 148 QRS: 36 T: 42 INTERPRETIVE STATEMENTS: Normal sinus rhythm Normal ECG No previous ECG available for comparison Electronically Signed On 09-19-22 14:20:53 CREPE SOLE WIRE BRUSHER by Corey Doshi
== END 2022-09-18 23:41 | disposition home or self-care (01) ==
LOC: ER 20:28
DX: R07.9 Chest pain, unspecified (principal); R42 Dizziness and giddiness; R10.9 Unspecified abdominal pain; Z88.2 Allergy status to sulfonamides; Z88.5 Allergy status to narcotic agent; Z88.6 Allergy status to analgesic agent; Z91.040 Latex allergy status; Z91.041 Radiographic dye allergy status; Z91.048 Other nonmedicinal substance allergy status
CPT/HCPCS: 93005

== ENCOUNTER 2023-01-25 00:31 | Emergency (ER) | payer OTHER ==
--- OUTSIDE RECORDS SUMMARY | 2023-01-25 00:50 | XMS REPORT | Continuity of Care Document ---
:1970 Author Organization [facility] t Address [address] [place] [address] Care Team Providers Name Role Phone Matthew Guardado DO Primary Care Physician [phone] CHASE BOWLES Attending Clinician Unavailable ANA MARIA CASTANON Attending Clinician Unavailable TANI_Nba_Akil Attending Clinician Unavailable JOE PLASCENCIA Attending Clinician Unavailable EDNA REHMAN Attending Clinician Unavailable MARINO YUEN Attending Clinician Unavailable VIDA WICK Attending Clinician Unavailable Shamika REFLEXOLOGIST, Vida Flores Attending Clinician Holger Becerra MD Attending Clinician Unknown, Attending Attending Clinician Unavailable HOLGER BECERRA Attending Clinician Unavailable , Adc Infusion Nurse Attending Clinician Unavailable EDITH PONEC Attending Clinician Unavailable Joe Plascencia MD Attending Clinician Doctor Unassigned, [place] Attending Clinician Unavailable AROLDO PENA Attending Clinician Unavailable CORBY BLACK Attending Clinician Unavailable Corby Black MD Attending Clinician Provider, [facility] Attending Clinician Unavailable JEAN ALMARAZ Attending Clinician Unavailable Erich Byers MD Attending Clinician [phone] Vtc-Lab Attending Clinician Unavailable Josefa Suarez Attending Clinician Unavailable Corby Newell MD Attending Clinician Nasra Gipson Attending Clinician NASRA MOLINA Attending Clinician Unavailable Po, Adc Lab Main Attending Clinician Unavailable LION EMERY Attending Clinician Unavailable Rupert KEYS Omayemrodríguez Attending Clinician Jolene Levine PTA Attending Clinician Unavailable Edna Rehman MD Attending Clinician Corby Hay Attending Clinician Unavailable Yelena Schaffer PTA Attending Clinician Unavailable Bola Mcintyre PT, Natalie Attending Clinician Unavailable Michelle Levine PTA Attending Clinician Unavailable Valeria PT, Sydnie Barcenas Attending Clinician Unavailable Eulalia Hilario Attending Clinician Unavailable Chase Bowles MD Attending Clinician Indira VARMA Attending Clinician Unavailable WILIAN ECHEVARRIA Attending Clinician Unavailable RENE MIGUEL Attending Clinician Unavailable 2, Adc Lab Attending Clinician Unavailable Jakob Quinn Attending Clinician Carito BLACKMON, Jakob Chambers Attending Clinician [phone] Trinh Beasley MD, Collin Romero Attending Clinician Alisha BLACKMON, Vipin Soto Attending Clinician Corby Iraheta MD Attending Clinician Peace Hilario DO Attending Clinician ANDREW GASTELUM Attending Clinician Unavailable DAVIAN AYOUB Attending Clinician Unavailable PAULA NUNO Attending Clinician Unavailable JAKOB PARKS Attending Clinician Unavailable TRACEY MAGANA Attending Clinician Unavailable TOM KAHN Attending Clinician Unavailable JOLENE LEBRON Attending Clinician Unavailable UNKNOWN, ATTENDING Attending Clinician Unavailable JAKOB NESBITT Attending Clinician Unavailable ERMIAS ROOT Attending Clinician Unavailable COLLIN BEASLEY Attending Clinician Unavailable JOMAR SPENCER Attending Clinician Unavailable JAKOB BLANCO Attending Clinician Unavailable TERI JOHNSON Attending Clinician Unavailable SULEMA BUCHANAN Attending Clinician Unavailable JOE CARVALHO M.D., JOE DODGE M.D. Attending Clin ician Unavailable ISIS HORAN Attending Clinician Unavailable CHASE BOWLES Admitting Clinician Unavailable ANA MARIA CASTANON Admitting Clinician Unavailable TANI_Connie Admitting Clinician Unavailable VIDA WICK Admitting Clinician Unavailable MARINO YUEN Admitting Clinician Unavailable Collin Beasley Admitting Clinician Unavailable Eulalia Hilario Admitting Clinician Unavailable TERI JOHNSON Admitting Clinician Unavailable JOE CARVALHO M.D., JOE DODGE M.D. Admitting Clin ician Unavailable ISIS HORAN Admitting Clinician Unavailable Payers Payer Name Policy Type Policy Number Effective Date Expiration Date S ourjoey [facility] [id number] 2015 MEDICAID 00:00:00 [facility] [id number] 2015 [place] 00:00:00 Problems Condition Condition Condition Status Onset Resolution Last Treating Co mments Source Name Details Category Date Date Treatment Clinician Date Plantar Plantar Problem Active Breanne fasciitis Fasciitis 4-28 Orth ope of left of Left 00:00: dic foot Foot 00 Sports Medicin e Neuropathy Neuropathy Disease Active U nivers 1-25 ity of 00:00: Medical Branch Status Status Disease Active Univers post total post total 5-23 [place] of [place] replacemen replacemen 00 Me dical t t Branch Decreased Decreased Disease Active Uni vers range of range of 5-23 ity of motion of motion of 00:[place] left knee left knee 00 Medi chika Branch Decreased Decreased Disease Active Uni vers strength strength 5-23 ity of involving involving 00:[place] knee joint knee joint 00 Me dical Branch Abnormal Abnormal Disease Active Unive rs gait gait 5-23 ity of 00:00: Medical Branch Osteoarthr Osteoarthr Problem Active A zalea itis of itis of 5-19 Orthope left knee Left Knee 00:00: dic joint Joint 00 Sports Medicin e Rupture of Rupture of Disease Active Overview : Univers anterior anterior 4-25 Formattin ity of cruciate cruciate 00:00: g of this [place] as ligament ligament 00 note Medica l of left of left might be Branch knee, knee, different subsequent subsequent from the encounter encounter original. Added automatic ally from request for surgery [id number] Chronic Chronic Disease Active Univers fatigue fatigue [...] Added automatic ally from request for surgery [id number] Gastroesop Gastroesop Disease Active Overview : Univers hageal hageal 1-21 Formattin ity of reflux reflux 00:00: g of this [place] disease disease 00 note Medical without without might be Branch esophagiti esophagiti different s s from the original. Added automatic ally from request for surgery [id number] Nauseous Nauseous Disease Active Overview: Un juan 1-21 Formattin ity of 00:00: g of this [place] 00 note Medical might be Branch different from the original. Added automatic ally from request for surgery [id number] Intractabl Intractabl Disease Active U nivers e [...] deficiency 4-24 it y of 00:00: [place] 00 Medical Branch Morbid Morbid Disease Active Univers obesity obesity 3-21 ity of 00:00: [place] 00 Medical Branch Essential Essential Disease Active Uni vers hypertensi hypertensi 3-21 it y of on, benign [place], benign [place] Dyslipidem Dyslipidem Disease Active Overview : Univers ia ia 3 Formattin ity of 00:00: g of this [place] 00 note Medical might be Branch different from the original. Diet controlle d Bipolar 1 Bipolar 1 Disease Active Uni vers disorder disorder 3-21 ity of 00:00: [place] 00 Medical Branch Type 2 Type 2 Disease Active Overview: Univer s diabetes diabetes Formattin ity of mellitus mellitus g of this [place] as without without note Medical complicati complicati might be Branch ons ons different from the original. 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 CPAP at 16 cm H2O GERD GERD Disease Active Univers (gastroeso (gastroeso it y of phageal phageal [place] reflux reflux Medical disease) disease) Branch Hypothyroi Hypothyroi Disease Active U nivers d d ity of [facility] Depression Depression Disease Active U nivers ity of [facility] Asthma Asthma Disease Active Univers ity of [facility] Seasonal Seasonal Disease Active Unive rs allergies allergies ity of [facility] IBS IBS Disease Active Univers (irritable (irritable it y of bowel bowel [place] syndrome) syndrome) [facility] SISI (iron SISI (iron Disease Active Uni vers deficiency deficiency it y of anemia) anemia) [facility] Allergies, Adverse Reactions, Alerts Allergy Allergy Status Severity Reaction(s) Onset Inactive Treating Comm ents Source Name Type Date Date Clinician tramadol DA Active SV RASH, TONGUE HC A AND THROAT 5-13 [place] SWELLING 00:00: Orthope 00 dic Hospita l NSAIDS DA Active IN had gastric [facility] (Non-Aris bypass 5-13 Clear roidal 00:00: [place] Anti-Inf 00 [facility] Sulfa DA Active MO HIVES [facility] (Sulfona 5-13 Clear mide 00:00: [place] Antibiot 00 Regiona ics) Replaced by [facility] ketorola DA Active SV RASH, [facility] c SWELLING OF 5-13 Clear THROAT AND 00:00: [place] TONGUE 00 [facility] Iodinate DA Active SV SHORTNESS OF 2021-0 HC A d BREATH 5-13 Clear Contrast 00:00: [place] Media 00 [facility] Iodinate DA Active SV SHORTNESS OF HC A d BREATH 4-26 Clear Contrast 00:00: [place] Media 00 [facility] Sulfa DA Active MO HIVES [facility] (Sulfona 4-26 Clear mide 00:00: [place] Antibiot 00 Regiona ics) Replaced by [facility] Nsaids Drug Active Other (See bariatric [facility] (Non-Aris Allergy Comments) 02-12 pt Luke s roidal 00:00: Medical Anti-Inf 00 Center lammator y Drug) Sulfa Drug Active Rash [facility] (Sulfona Allergy 02[facility]12 [facility] mide 00:[facility]: Medical Antibiot 00 Center ics) Iodine Drug Active Other (See Fainting, [facility] And Allergy Comments) 02-12 [facility] Iodide 00:00: "okay w/ Medical [...] Allergy 02-12 [facility] 00:[facility]: Medical 00 Center NSIADS DA Active U HAD GASTRIC 2018- [facility] BYPASS 10-25 [place] SURGERY 00:00: [address] IV DA Active SV HIVES, [facility] CONTRAST ITCHING, 17 [place] TROUBLE 00:00: Orthope BREATHING. 00 dic Hospita l Nsaids Propensi Active Unknown - 2017-09 Not Unive rs (Non-Aris ty to See comments 0-01 allowed i ty of roidal adverse 00:00: to have, [place] Anti-Inf reaction 00 had Medica l lammator s gastric Branch y Drug) bypass NSAIDS Drug Active High Unknown-Cmnt 2017-09 Univ ers (NON-ARIS Class 0-01 ity of ROIDAL 00:00: [place] ANTI-INF 00 Medical LAMMATOR Branch Y DRUG) iodine DA Active SV ITCHING 2017- [facility] 2-13 [place] 00:00: Orthope 00 dic Hospita l iodine DA Active SV 2017-0 [facility] 2-13 Clear 00:00: [place] 00 [facility] Sulfa DA Active MO HIVES 2017-0 [facility] (Sulfona 3-11 [place] mide 00:00: Orthope Antibiot 00 dic ics) Hospita l Sulfa DA Active MO 2016-0 [facility] (Sulfona 3-11 Clear mide 00:00: [place] [facility] Active IN 2016- [facility] c 3-11 Clear 00:00: [place] 00 [facility] latex DA Active IN [facility] 3-11 Clear 00:00: [facility] ket[facility]ola DA Active IN RASH [facility] c 3-11 [place] 00:00: Orthope 00 dic Hospita l Iodine Propensi Active Methodi ty to 04-25 st adverse 00:00: Hospita reaction 00 l s to drug [place] Propensi Active Method i c ty to 8 st adverse 00:00: Hospita reaction 00 l s to drug Sulfa Propensi Active Methodi (Sulfona ty to 04-25 st mide adverse 00:00: Hospita Antibiot reaction 00 l ics) s to drug Iodine Propensi Active Swelling Pt states Uni vers And ty to 1-01 even ity of Iodide adverse 00:00: being [place] Containi reaction 00 pre-medic Med ical ng s ated with Branch Products benadryl does not help reaction anymore. IODINE Drug Active Swelling Univers AND Class 1-01 ity of IODIDE [...] [place] mine reaction 00 Medical s Branch IODINATE Allergy Active Breanne D to Orthope CONTRAST substanc dic MEDIA e Sports Medicin e SULFA Allergy Active Breanne (SULFONA to Orthope MIDE substanc dic ANTIBIOT e Sports ICS) Medicin e Social History Social Habit Start Date Stop Date Quantity Comments Source Gender identity [facility] Sexual orientation Method ist Hospital History SDOH [facility] Alcohol Std Drinks Medica l Center History SDOH [facility] Alcohol Binge Medical Delfina ter Exposure to 2022-11-18 2022-11-28 Not sure University SARS-CoV-2 (event) 00:00:00 10:13:00 [place] [facility] Cigarettes smoked 2022-06-10 2022-06-10 Univers ity of current (pack per 00:00:00 00:00:00 [facility]) - Reported Branch Cigarette 2022-06-10 2022-06-10 University of pack-years 00:00:00 00:00:00 [facility] Tobacco use and 2022-06-10 2022-06-10 Smokeless Universit y of exposure 00:00:00 00:00:00 tobacco non-user [facility] dical Branch Alcohol intake 2019-07-13 2019-07-13 Current drinker [facility] dist 00:00:00 00:00:00 of [facility] (finding) Alcohol Comment 2019-07-04 2019-07-04 socially [facility]ism 00:00:00 00:00:00 Hospital History [facility] 2019-05-27 2019-05-27 3 University o f Financial 00:00:00 00:00:00 [place] [facility] History [facility] Food 2019-05-27 2019-05-27 2 Univers ity of Worry 00:00:00 00:00:00 [facility] Branch History [facility] Food 2019-05-27 2019-05-27 2 Univers ity of Scarcity 00:00:00 00:00:00 [place] [facility] History [facility] 2019-05-27 2019-05-27 1 University o f Transport Med 00:00:00 00:00:00 [place] Medic al Branch History [facility] 2019-05-27 2019-05-27 1 University o f Transport Non-Med 00:00:00 00:00:00 [facility] Branch History of Social 2019-04-27 2019-04-[address] function 00:00:00 00:00:00 Hospital History [facility] 2019-02-12 2019-02-[address] [facility] Alcohol Frequency 00:00:00 00:00:00 Medical Center History of tobacco 2013-05-28 Cigarette Smoker University of use 00:00:00 [facility] Sex Ass[birth year] At [birth year] [facility] 00:00:00 00:00:00 Hospital Smoking Status Start Date Stop Date Source Former Smoker Breanne Orthopedi c Sports Medicine Never smoked tobacco [facility] Medications Ordered Filled Start Stop Current Ordering Indication Dosage Frequency Signature Comments Components Source Medication Medication Date Date Medication? Clinician (SIG) Name Name cefTRIAXone 2022- No [id number] 1000mg Univers (ROCEPHIN) 11-18 ity of injection 19:00: 18:22 [place] 1,000 mg 00 :00 Medical Branch cefTRIAXone 2022- No [id number] 1000mg 1,000 mg, Univers (ROCEPHIN) 11-18 Intramuscu it y of injection 19:00: 18:22 [place], ONCE, [place] 1,000 mg 00 :00 1 dose, On Medic al [facility] Branch 11/18/22 at 1400, YURIY
Re ason for Anti-Infec tive: Documented Infection< br>Documen gabriella Infection Site: Urine
D uration of Therapy: Other (see Comments) cefdinir 2022- Yes [id number] 300mg Take 1 Univers 300 mg 11-18 capsule by ity of capsule 00:00: 04:59 mouth [place] 00 :00 every 12 [facility] Branch hours for 7 days. phenazopyri 2022- Yes [id number] 200mg Take 2 Univers dine 100 mg 11-18 tablets by i ty of tablet 00:00: 04:59 mouth in [place] 00 :00 the Medical morning Branch and 2 tablets at noon and 2 tablets in the evening. Do all this for 2 days. iron 2022- No [id number] 200mg 200 mg, IV U nivers sucrose 11-14 Infusion, ity of (VENOFER) 16:30: 18:00 ONCE, [place] 200 mg in 00 :00 Administer Medi chika NaCl 0.9% over 2.5 Branch (NS) 100 mL Hours, On infusion Susannah 11/14/22 at 1030, For 1 dose linaCLOtide Yes [id number] 290ug Take 1 Univers (LINZESS) 3-08 capsule by ity of 290 mcg Cap 00:00: [place] 00 the Medical morning. Branch levothyroxi Yes [id number] 25ug Take 1 Univers ne 25 mcg 3-08 tablet by ity o f tablet 00:00: mouth [place] 00 every Medical morning. Branch topiramate Yes [id number] 25mg Take 1 Univers 25 mg 3-08 tablet by ity of tablet 00:00: mouth in [place] the Medical morning Branch and 1 tablet in the evening. lisinopriL 2023-0 Yes [id number] 20mg Take 1 Un juan 20 mg 3-08 tablet by ity of tablet 00:00: mouth in [place] 00 the Medical morning. Branch linaCLOtide 2023-0 Yes [id number] 290ug Take 1 Univers (LINZESS) 3-08 capsule by ity of 290 mcg Cap 00:00: mouth in [facility] 00 the Medical morning. Branch levothyroxi 2023-0 Yes [id number] 25ug Take 1 Univers ne 25 mcg 3-08 tablet by ity o f tablet 00:00: mouth [place] [id number] every Medical morning. Branch topiramate 2023-0 Yes [id number] 25mg Take 1 Univers 25 mg 3-08 tablet by ity of tablet 00:00: mouth in [place] the Medical morning Branch and 1 tablet in the evening. lisinopriL 2023-0 Yes [id number] 20mg Take 1 Un juan 20 mg 3-08 tablet by ity of tablet 00:00: mouth in [place] the Medical morning. Branch linaCLOtide 2023-0 Yes [id number] 290ug Take 1 Univers (LINZESS) 3-08 capsule by ity of 290 mcg Cap 00:00: mouth in [facility] the Medical morning. Branch levothyroxi 2023-0 Yes [id number] 25ug Take 1 Univers ne 25 mcg 3-08 tablet by ity o f tablet 00:00: mouth [place] 00 every Medical morning. Branch topiramate 2023-0 Yes [id number] 25mg Take 1 Univers 25 mg 3-08 tablet by ity of tablet 00:00: mouth in [place] the Medical morning Branch and 1 tablet in the evening. lisinopriL 2023-0 Yes [id number] 20mg Take 1 Un juan 20 mg 3-08 tablet by ity of tablet 00:00: mouth in [place] 00 the Medical morning. Branch linaCLOtide 2023-0 Yes [id number] 290ug Take 1 Univers (LINZESS) 3-08 capsule by ity of 290 mcg Cap 00:00: mouth [place] 00 the Medical morning. Branch levothyroxi 2023-0 Yes [id number] 25ug Take 1 Univers ne 25 mcg 3-08 tablet by ity o f tablet 00:00: mouth [place] 00 every Medical morning. Branch topiramate 2023-0 Yes [id number] 25mg Take 1 Univers 25 mg 3-08 tablet by ity of tablet 00:00: mouth in [place] 00 the Medical morning Branch and 1 tablet in the evening. lisinopriL 2023-0 Yes [id number] 20mg Take 1 Un juan 20 mg 3-08 tablet by ity of tablet 00:00: mouth in [place] 00 the Medical morning. Branch linaCLOtide 2023-0 Yes [id number] 290ug Take 1 Univers (LINZESS) 3-08 capsule by ity of 290 mcg Cap 00:00: mouth [place] the Medical morning. Branch levothyroxi 2023-0 Yes [id number] 25ug Take 1 Univers ne 25 mcg 3-08 tablet by ity o f tablet 00:00: mouth [place] 00 every Medical morning. Branch topiramate 2023-0 Yes [id number] 25mg Take 1 Univers 25 mg 3-08 tablet by ity of tablet 00:00: mouth in [place] the Medical morning Branch and 1 tablet in the evening. lisinopriL 2023-0 Yes [id number] 20mg Take 1 Un juan 20 mg 3-08 tablet by ity of tablet 00:00: mouth in [place] 00 the Medical morning. Branch linaCLOtide 2023-0 Yes [id number] 290ug Take 1 Univers (LINZESS) 3-08 capsule by ity of 290 mcg Cap 00:00: mouth [place] the Medical morning. Branch levothyroxi 2023-0 Yes [id number] 25ug Take 1 Univers ne 25 mcg 3-08 tablet by ity o f tablet 00:00: mouth [place] 00 every Medical morning. Branch topiramate 2023-0 Yes [id number] 25mg Take 1 Univers 25 mg 3-08 tablet by ity of tablet 00:00: mouth in [place] 00 the Medical morning Branch and 1 tablet in the evening. lisinopriL 2023-0 Yes [id number] 20mg Take 1 Un juan 20 mg 3-08 tablet by ity of tablet 00:00: mouth in [place] 00 the Medical morning. Branch linaCLOtide 2023-0 Yes [id number] 290ug Take 1 Univers (LINZESS) 3-08 capsule by ity of 290 mcg Cap 00:00: mouth [place] the Medical morning. Branch levothyroxi 3-0 Yes [id number] 25ug Take 1 Univers ne 25 mcg 3-08 tablet by ity o f tablet 00:00: mouth [place] 00 every Medical morning. Branch topiramate 2022-0 Yes [id number] 25mg Take 1 Univers 25 mg 3-08 tablet by ity of tablet 00:00: mouth in [place] 00 the Medical morning Branch and 1 tablet in the evening. lisinopriL 2022-0 Yes [id number] 20mg Take 1 Un juan 20 mg 3-08 tablet by ity of tablet 00:00: mouth in [place] 00 the Medical morning. Branch linaCLOtide 3-0 Yes [id number] 290ug Take 1 Univers (LINZESS) 3-08 capsule by ity of 290 mcg Cap 00:00: mouth [place] the Medical morning. Branch levothyroxi 2022-0 Yes [id number] 25ug Take 1 Univers ne 25 mcg 3-08 tablet by ity o f tablet 00:00: mouth [place] 00 every Medical morning. Branch topiramate 2022-0 Yes [id number] 25mg Take 1 Univers 25 mg 3-08 tablet by ity of tablet 00:00: mouth in [place] 00 the Medical morning Branch and 1 tablet in the evening. lisinopriL 2022-0 Yes [id number] 20mg Take 1 Un juan 20 mg 3-08 tablet by ity of tablet 00:00: mouth in [place] 00 the Medical morning. Branch PROMETHAZIN 3-0 Yes [id number] 25mg TAKE 1 Univers E 25 mg 3-03 TABLET BY ity of tablet 00:00: MOUTH 2 [place] (TWO) Medical TIMES Branch DAILY NEEDED FOR NAUSEA AND VOMITING (N/V). PROMETHAZIN 3-0 Yes [id number] 25mg TAKE 1 Univers E 25 mg 3-03 TABLET BY ity of tablet 00:00: MOUTH 2 [place] (TWO) Medical TIMES Branch DAILY NEEDED FOR NAUSEA AND VOMITING (N/V). PROMETHAZIN 2023-0 Yes [id number] 25mg TAKE 1 Univers E 25 mg 3-03 TABLET BY ity of tablet 00:00: MOUTH 2 [place] (TWO) Medical TIMES Branch DAILY NEEDED FOR NAUSEA AND VOMITING (N/V). PROMETHAZIN 2023-0 Yes [id number] 25mg TAKE 1 Univers E 25 mg 3-03 TABLET BY ity of tablet 00:00: MOUTH 2 (TWO) Medical TIMES Branch DAILY NEEDED FOR NAUSEA AND VOMITING (N/V). PROMETHAZIN 2023-0 Yes [id number] 25mg TAKE 1 Univers E 25 mg 3-03 TABLET BY ity of tablet 00:00: MOUTH 2 (TWO) Medical TIMES Branch DAILY NEEDED FOR NAUSEA AND VOMITING (N/V). PROMETHAZIN 2023-0 Yes [id number] 25mg TAKE 1 Univers E 25 mg 3-03 TABLET BY ity of tablet 00:00: MOUTH 2 (TWO) Medical TIMES Branch DAILY NEEDED FOR NAUSEA AND VOMITING (N/V). PROMETHAZIN 2023-0 Yes [id number] 25mg TAKE 1 Univers E 25 mg 3-03 TABLET BY ity of tablet 00:00: MOUTH 2 (TWO) Medical TIMES Branch DAILY NEEDED FOR NAUSEA AND VOMITING (N/V). PROMETHAZIN 2023-0 Yes [id number] 25mg TAKE 1 Univers E 25 mg 3-03 TABLET BY ity of tablet 00:00: MOUTH 2 (TWO) Medical TIMES Branch DAILY NEEDED FOR NAUSEA AND VOMITING (N/V). PROMETHAZIN 2023-0 Yes [id number] 25mg TAKE 1 Univers E 25 mg 3-03 TABLET BY ity of tablet 00:00: MOUTH 2 (TWO) Medical TIMES Branch DAILY NEEDED FOR NAUSEA AND VOMITING (N/V). PROMETHAZIN 2023-0 Yes [id number] 25mg TAKE 1 Univers E 25 mg 3-03 TABLET BY ity of tablet 00:00: MOUTH 2 (TWO) Medical TIMES Branch DAILY NEEDED FOR NAUSEA AND VOMITING (N/V). iron 2022-0 2023- No [id number] 200mg 200 mg, IV U nivers sucrose 10-31 Infusion, ity of (VENOFER) 18:15: 20:45 ONCE, [place] 200 mg in 00 :00 Administer Medi chika NaCl 0.9% over 2.5 Branch (NS) 100 mL Hours, On infusion Susannah 10/31/22 at 1215, For 1 dose
Ve nofer 200 mg in 100 ml NACL IV to be adminsiter ed over 2.5 hours.&nbs p; Fi rst will test with test dose of 20 mg = 10 ml over 15-20 min
PANTOPRAZOL 2022-0 Yes [id number] TAKE 1 Univers E 40 mg EC 2-07 TABLET BY ity of tablet 00:00: MOUTH [place] 00 TWICE A Medical DAY Branch LORATADINE 2022-0 Yes [id number] TAKE 1 Univers 10 mg 2-07 TABLET BY ity of tablet 00:00: MOUTH [place] EVERY DAY Medical Branch SERTRALINE 2022-0 Yes [id number] TAKE 1 U nivers 100 mg 2-07 TABLET BY ity of tablet 00:00: MOUTH [place] EVERY DAY Medical Branch PANTOPRAZOL 2022-0 Yes [id number] TAKE 1 Univers E 40 mg EC 2-07 TABLET BY ity of tablet 00:00: MOUTH TWICE A Medical DAY Branch LORATADINE 2022-0 Yes [id number] TAKE 1 Univers 10 mg 2-07 TABLET BY ity of tablet 00:00: MOUTH [place] EVERY DAY Medical Branch SERTRALINE 2022-0 Yes [id number] TAKE 1 U nivers 100 mg 2-07 TABLET BY ity of tablet 00:00: MOUTH EVERY DAY Medical Branch PANTOPRAZOL 2022-0 Yes [id number] TAKE 1 Univers E 40 mg EC 2-07 TABLET BY ity of tablet 00:00: MOUTH TWICE A Medical DAY Branch LORATADINE 2022-0 Yes [id number] TAKE 1 Univers 10 mg 2-07 TABLET BY ity of tablet 00:00: MOUTH [place] EVERY DAY Medical Branch SERTRALINE 2022-0 Yes [id number] TAKE 1 U nivers 100 mg 2-07 TABLET BY ity of tablet 00:00: MOUTH [place] 00 EVERY DAY Medical Branch PANTOPRAZOL 2022-0 Yes [id number] TAKE 1 Univers E 40 mg EC 2-07 TABLET BY ity of tablet 00:00: MOUTH 00 TWICE A Medical DAY Branch LORATADINE 2022-0 Yes [id number] TAKE 1 Univers 10 mg 2-07 TABLET BY ity of tablet 00:00: MOUTH [place] 00 EVERY DAY Medical Branch SERTRALINE 2022-0 Yes [id number] TAKE 1 U nivers 100 mg 2-07 TABLET BY ity of tablet 00:00: MOUTH [place] EVERY DAY Medical Branch PANTOPRAZOL 2022-0 Yes [id number] TAKE 1 Univers E 40 mg EC 2-07 TABLET BY ity of tablet 00:00: MOUTH [place] 00 TWICE A Medical DAY Branch LORATADINE 3-0 Yes [id number] TAKE 1 Univers 10 mg 2-07 TABLET BY ity of tablet 00:00: MOUTH [place] 00 EVERY DAY Medical Branch SERTRALINE 2023-0 Yes [id number] TAKE 1 U nivers 100 mg 2-07 TABLET BY ity of tablet 00:00: MOUTH 00 EVERY DAY Medical Branch PANTOPRAZOL 2022-0 Yes [id number] TAKE 1 [facility] E 40 mg EC 2-07 TABLET BY [facility] tablet 00:00: MOUTH [place] 00 TWICE A Medical DAY Branch LORATADINE 2022-0 Yes [id number] TAKE 1 [facility] 10 mg 2-07 TABLET BY [facility] of tablet 00:00: MOUTH 00 EVERY DAY Medical Branch SERTRALINE 2022-0 Yes [id number] TAKE 1 [facility] 100 mg 2-07 TABLET BY [facility] tablet 00:00: MOUTH EVERY DAY Medical Branch PANTOPRAZOL 2022-0 Yes [id number] TAKE 1 [facility] E 40 mg EC 2-07 TABLET BY [facility] tablet 00:00: MOUTH 00 TWICE A Medical DAY Branch LORATADINE 2022-0 Yes [id number] TAKE 1 [facility] 10 mg 2-07 TABLET BY [facility] tablet 00:00: MOUTH 00 EVERY DAY Medical Branch SERTRALINE 3-0 Yes [id number] TAKE 1 [facility] 100 mg 2-07 TABLET BY [facility] of tablet 00:00: MOUTH EVERY DAY Medical Branch PANTOPRAZOL 3-0 Yes [id number] TAKE 1 [facility] E 40 mg EC 2-07 TABLET BY [facility] of tablet 00:00: MOUTH 00 TWICE A Medical DAY Branch LORATADINE 3-0 Yes [id number] TAKE 1 [facility] 10 mg 2-07 TABLET BY [facility] tablet 00:00: MOUTH 00 EVERY DAY Medical Branch SERTRALINE 3-0 Yes [id number] TAKE 1 [facility] 100 mg 2-07 TABLET BY [facility] tablet 00:00: MOUTH [place] 00 EVERY DAY Medical Branch PANTOPRAZOL 3-0 Yes [id number] TAKE 1 [facility] E 40 mg EC 2-07 TABLET BY [facility] of tablet 00:00: MOUTH [place] 00 TWICE A Medical DAY Branch LORATADINE 3-0 Yes [id number] TAKE 1 [facility] 10 mg 2-07 TABLET BY [facility] tablet 00:00: MOUTH 00 EVERY DAY Medical Branch SERTRALINE 3-0 Yes [id number] TAKE 1 [facility] 100 mg 2-07 TABLET BY [facility] of tablet 00:00: MOUTH EVERY DAY Medical Branch PANTOPRAZOL 3-0 Yes [id number] TAKE 1 [facility] E 40 mg EC 2-07 TABLET BY [facility] of tablet 00:00: MOUTH TWICE A Medical DAY Branch LORATADINE 3-0 Yes [id number] TAKE 1 [facility] 10 mg 2-07 TABLET BY [facility] tablet 00:00: MOUTH EVERY DAY Medical Branch SERTRALINE 2022-0 Yes [id number] TAKE 1 [facility] 100 mg 2-07 TABLET BY [facility] tablet 00:00: MOUTH EVERY DAY Medical Branch PANTOPRAZOL 3-0 Yes [id number] TAKE 1 [facility] E 40 mg EC 2-07 TABLET BY [facility] of tablet 00:00: MOUTH TWICE A Medical DAY Branch LORATADINE 3-0 Yes [id number] TAKE 1 [facility] 10 mg 2-07 TABLET BY [facility] tablet 00:00: MOUTH EVERY DAY Medical Branch SERTRALINE 3-0 Yes [id number] TAKE 1 [facility] 100 mg 2-07 TABLET BY [facility] tablet 00:00: MOUTH EVERY DAY Medical Branch PANTOPRAZOL 3-0 Yes [id number] TAKE 1 [facility] E 40 mg EC 2-07 TABLET BY [facility] tablet 00:00: MOUTH TWICE A Medical DAY Branch LORATADINE 3-0 Yes [id number] TAKE 1 [facility] 10 mg 2-07 TABLET BY [facility] tablet 00:00: MOUTH EVERY DAY Medical Branch SERTRALINE 3-0 Yes [id number] TAKE 1 [facility] 100 mg 2-07 TABLET BY [facility] tablet 00:00: MOUTH EVERY DAY Medical Branch PANTOPRAZOL 3-0 Yes [id number] TAKE 1 [facility] E 40 mg EC 2-07 TABLET BY [facility] tablet 00:00: MOUTH TWICE A Medical DAY Branch LORATADINE 3-0 Yes [id number] TAKE 1 [facility] 10 mg 2-07 TABLET BY [facility] tablet 00:00: MOUTH EVERY DAY Medical Branch SERTRALINE 3-0 Yes [id number] TAKE 1 [facility] 100 mg 2-07 TABLET BY [facility] tablet 00:00: MOUTH [place] 00 EVERY DAY Medical Branch PANTOPRAZOL 2022-0 Yes [id number] TAKE 1 [facility] E 40 mg EC 2-07 TABLET BY [facility] of tablet 00:00: MOUTH [place] 00 TWICE A Medical DAY Branch LORATADINE 2022-0 Yes [id number] TAKE 1 [facility] 10 mg 2-07 TABLET BY [facility] of tablet 00:00: MOUTH [place] EVERY DAY Medical Branch SERTRALINE 2022-0 Yes [id number] TAKE 1 [facility] 100 mg 2-07 TABLET BY [facility] tablet 00:00: MOUTH [place] 00 EVERY DAY Medical Branch PANTOPRAZOL 0 Yes [id number] TAKE 1 [facility] E 40 mg EC 2-07 TABLET BY [facility] tablet 00:00: MOUTH [place] 00 TWICE A Medical DAY Branch LORATADINE 0 Yes [id number] TAKE 1 [facility] 10 mg 2-07 TABLET BY [facility] of tablet 00:00: MOUTH [place] EVERY DAY Medical Branch SERTRALINE 0 Yes [id number] TAKE 1 [facility] 100 mg 2-07 TABLET BY [facility] of tablet 00:00: MOUTH [place] 00 EVERY DAY Medical Branch ondansetron 2022-0 2022- No 4mg 4 mg, Slow [facility] (ZOFRAN 10-10 IV Push, ity of (PF)) 23:15: 22:43 ONCE, 1 [place] injection 4 00 :00 dose, On Medi chika mg [facility] 10/10/22 Branch at 1715, YURIY morpHINE (4 2022- No 4mg 4 mg, Slow [facility] mg/mL) 10-10 IV Push, ity of injection 4 23:15: 22:43 [place]CE, 1 [place] :[place] dose, On Medical [place] 10/10/22 Branch at 1715, YURIY acetaminoph 2022-0 2022- No 650mg 650 mg, U nivers en 10-10 Oral, ity of (TYLENOL) 23:15: 22:43 ONCE, 1 [place] tablet 650 00 :00 dose, On Medic al mg [place] 10/10/22 Branch at 1715, YURIY LACTULOSE 2021-09 Yes [id number] 15mL TAKE 15 ML [facility] 10 gram/15 09-29 BY MOUTH 2 ity of mL solution 00:00: (TWO) [place] 00 TIMES Medical DAILY Branch NEEDED FOR CONSTIPATI ON. LACTULOSE 2021-09 Yes [id number] 15mL TAKE 15 ML [facility] 10 gram/15 1-22 BY MOUTH 2 ity of mL solution 00:00: (TWO) [place] 00 TIMES Medical DAILY Branch NEEDED FOR CONSTIPATI ON. LACTULOSE 2021-09 Yes [id number] 15mL TAKE 15 ML [facility] 10 gram/15 1-22 BY MOUTH 2 ity of mL solution 00:00: (TWO) [place] 00 TIMES Medical DAILY Branch NEEDED FOR CONSTIPATI ON. LACTULOSE 2021-09 Yes [id number] 15mL TAKE 15 ML [facility] 10 gram/15 1-22 BY MOUTH 2 ity of mL solution 00:00: (TWO) [place] 00 TIMES Medical DAILY Branch NEEDED FOR CONSTIPATI ON. LACTULOSE 2021-09 Yes [id number] 15mL TAKE 15 ML [facility] 10 gram/15 1-22 BY MOUTH 2 ity of mL solution 00:00: (TWO) [place] 00 TIMES Medical DAILY Branch NEEDED FOR CONSTIPATI ON. LACTULOSE 2021-09 Yes [id number] 15mL TAKE 15 ML [facility] 10 gram/15 1-22 BY MOUTH 2 ity of mL solution 00:00: (TWO) [place] 00 TIMES Medical DAILY Branch NEEDED FOR CONSTIPATI ON. LACTULOSE 2021-09 Yes [id number] 15mL TAKE 15 ML [facility] 10 gram/15 1-22 BY MOUTH 2 ity of mL solution 00:00: (TWO) [place] 00 TIMES Medical DAILY Branch NEEDED FOR CONSTIPATI ON. LACTULOSE 2021-09 Yes [id number] 15mL TAKE 15 ML [facility] 10 gram/15 1-22 BY MOUTH 2 ity of mL solution 00:00: (TWO) [place] 00 TIMES Medical DAILY Branch NEEDED FOR CONSTIPATI ON. LACTULOSE 2021-09 Yes [id number] 15mL TAKE 15 ML [facility] 10 gram/15 1-22 BY MOUTH 2 ity of mL solution 00:00: (TWO) [place] 00 TIMES Medical DAILY Branch NEEDED FOR CONSTIPATI ON. LACTULOSE 2021-09 Yes [id number] 15mL TAKE 15 ML [facility] 10 gram/15 1-22 BY MOUTH 2 ity of mL solution 00:00: (TWO) [place] 00 TIMES Medical DAILY Branch NEEDED FOR CONSTIPATI ON. LACTULOSE 2021-09 Yes [id number] 15mL TAKE 15 ML [facility] 10 gram/15 1-22 BY MOUTH 2 ity of mL solution 00:00: (TWO) [place] 00 TIMES Medical DAILY Branch NEEDED FOR CONSTIPATI ON. LACTULOSE 2021-09 Yes [id number] 15mL TAKE 15 ML [facility] 10 gram/15 1-22 BY MOUTH 2 ity of mL solution 00:00: (TWO) [place] 00 TIMES Medical DAILY Branch NEEDED FOR CONSTIPATI ON. LACTULOSE 2021-09 Yes [id number] 15mL TAKE 15 ML [facility] 10 gram/15 1-22 BY MOUTH 2 ity of mL solution 00:00: (TWO) [place] 00 TIMES Medical DAILY Branch NEEDED FOR CONSTIPATI ON. LACTULOSE 2021-09 Yes [id number] 15mL TAKE 15 ML [facility] 10 gram/15 1-22 BY MOUTH 2 ity of mL solution 00:00: (TWO) [place] 00 TIMES Medical DAILY Branch NEEDED FOR CONSTIPATI ON. LACTULOSE 2021-09 Yes [id number] 15mL TAKE 15 ML [facility] 10 gram/15 1-22 BY MOUTH 2 ity of mL solution 00:00: (TWO) [place] 00 TIMES Medical DAILY Branch NEEDED FOR CONSTIPATI ON. LACTULOSE 2021-09 Yes [id number] 15mL TAKE 15 ML [facility] 10 gram/15 1-22 BY MOUTH 2 ity of mL solution 00:00: (TWO) [place] 00 TIMES Medical DAILY Branch NEEDED FOR CONSTIPATI ON. LACTULOSE 2021-09 Yes [id number] 15mL TAKE 15 ML [facility] 10 gram/15 1-22 BY MOUTH 2 ity of mL solution 00:00: (TWO) [place] 00 TIMES Medical DAILY Branch NEEDED FOR CONSTIPATI ON. LACTULOSE 2021-09 Yes [id number] 15mL TAKE 15 ML [facility] 10 gram/15 1-22 BY MOUTH 2 ity of mL solution 00:00: (TWO) [place] 00 TIMES Medical DAILY Branch NEEDED FOR CONSTIPATI ON. LACTULOSE 2021-09 Yes [id number] 15mL TAKE 15 ML [facility] 10 gram/15 1-22 BY MOUTH 2 ity of mL solution 00:00: (TWO) [place] 00 TIMES Medical DAILY Branch NEEDED FOR CONSTIPATI ON. LACTULOSE 1 Yes [id number] 15mL TAKE 15 ML [facility] 10 gram/15 1-22 BY MOUTH 2 ity of mL solution 00:00: (TWO) [place] 00 TIMES Medical DAILY Branch NEEDED FOR CONSTIPATI ON. LACTULOSE 2021-09 Yes [id number] 15mL TAKE 15 ML [facility] 10 gram/15 1-22 BY MOUTH 2 ity of mL solution 00:00: (TWO) [place] 00 TIMES Medical DAILY Branch NEEDED FOR CONSTIPATI ON. LACTULOSE 2021-09 Yes [id number] 15mL TAKE 15 ML [facility] 10 gram/15 1-22 BY MOUTH 2 ity of mL solution 00:00: (TWO) [place] 00 TIMES Medical DAILY Branch NEEDED FOR CONSTIPATI ON. LACTULOSE 2021-09 Yes [id number] 15mL TAKE 15 ML [facility] 10 gram/15 1-22 BY MOUTH 2 ity of mL solution 00:00: (TWO) [place] 00 TIMES Medical DAILY Branch NEEDED FOR CONSTIPATI ON. LACTULOSE 2021-09 Yes [id number] 15mL TAKE 15 ML [facility] 10 gram/15 1-22 BY MOUTH 2 ity of mL solution 00:00: (TWO) [place] 00 TIMES Medical DAILY Branch NEEDED FOR CONSTIPATI ON. LACTULOSE 2021-09 Yes [id number] 15mL TAKE 15 ML [facility] 10 gram/15 1-22 BY MOUTH 2 ity of mL solution 00:00: (TWO) [place] 00 TIMES Medical DAILY Branch NEEDED FOR CONSTIPATI ON. LACTULOSE 2021-09 Yes [id number] 15mL TAKE 15 ML [facility] 10 gram/15 1-22 BY MOUTH 2 ity of mL solution 00:00: (TWO) [place] 00 TIMES Medical DAILY Branch NEEDED FOR CONSTIPATI ON. LACTULOSE 2021-09 Yes [id number] 15mL TAKE 15 ML [facility] 10 gram/15 1-22 BY MOUTH 2 ity of mL solution 00:00: (TWO) [place] 00 TIMES Medical DAILY Branch NEEDED FOR CONSTIPATI ON. LINZESS 290 2021-09 Yes TAKE 1 [facility] ers mcg Cap 0-14 CAPSULE BY ity of 00:00: MOUTH [place] EVERY DAY Medical Branch LINZESS 290 2021-09 Yes TAKE 1 [facility] ers mcg Cap 0-14 CAPSULE BY ity of 00:00: MOUTH [place] EVERY DAY Medical Branch LINZESS 290 2021-09 Yes TAKE 1 Univ ers mcg Cap 0-14 CAPSULE BY ity of 00:00: MOUTH [place] EVERY DAY Medical Branch LINZESS 290 2021-09 Yes TAKE 1 [facility] ers mcg Cap 0-14 CAPSULE BY ity of 00:00: MOUTH [place] EVERY DAY Medical Branch LINZESS 290 2021-09 Yes TAKE 1 [facility] ers mcg Cap 0-14 CAPSULE BY ity of 00:00: MOUTH [place] 00 EVERY DAY Medical Branch LINZESS 290 2021-09 Yes TAKE 1 [facility] ers mcg Cap 0-14 CAPSULE BY ity of 00:00: MOUTH [place] 00 EVERY DAY Medical Branch LINZESS 290 2021-09 Yes TAKE 1 [facility] ers mcg Cap 0-14 CAPSULE BY ity of 00:00: [facility] EVERY DAY Medical Branch LINZESS 290 2021-09 Yes TAKE 1 Univ ers mcg Cap 0-14 CAPSULE BY ity of 00:00: MOUTH [place] EVERY DAY Medical Branch LINZESS 290 2021-09 Yes TAKE 1 Univ ers mcg Cap 0-14 CAPSULE BY ity of 00:00: [facility] EVERY DAY Medical Branch LINZESS 290 2021-09 Yes TAKE 1 Univ ers mcg Cap 0-14 CAPSULE BY ity of 00:00: [facility] EVERY DAY Medical Branch LINZESS 290 2021-09 Yes TAKE 1 Univ ers mcg Cap 0-14 CAPSULE BY ity of 00:00: [facility] EVERY DAY Medical Branch LINZESS 290 2021-09 Yes TAKE 1 Univ ers mcg Cap 0-14 CAPSULE BY ity of 00:00: [facility] EVERY DAY Medical Branch LINZESS 290 2021-09 Yes TAKE 1 Univ ers mcg Cap 0-14 CAPSULE BY ity of 00:00: [facility] EVERY DAY Medical Branch LINZESS 290 2021-09 Yes TAKE 1 Univ ers mcg Cap 0-14 CAPSULE BY ity of 00:00: [facility] EVERY DAY Medical Branch LINZESS 290 2021-09 Yes TAKE 1 Univ ers mcg Cap 0-14 CAPSULE BY ity of 00:00: [facility] EVERY DAY Medical Branch LINZESS 290 2021-09 Yes TAKE 1 Univ ers mcg Cap 0-14 CAPSULE BY ity of 00:00: [facility] 00 EVERY DAY Medical Branch LINZESS 290 2021-09 Yes TAKE 1 Univ ers mcg Cap 0-14 CAPSULE BY ity of 00:00: [facility] 00 EVERY DAY Medical Branch LINZESS 290 2021-09 Yes TAKE 1 Univ ers mcg Cap 0-14 CAPSULE BY ity of 00:00: [facility] 00 EVERY DAY Medical Branch LINZESS 290 2021-09 Yes TAKE 1 Univ ers mcg Cap 0-14 CAPSULE BY ity of 00:00: [facility] EVERY DAY Medical Branch LINZESS 290 2021-09 Yes TAKE 1 Univ ers mcg Cap 0-14 CAPSULE BY ity of 00:00: MOUTH [place] 00 EVERY DAY Medical Branch LINZESS 290 2021-09 Yes TAKE 1 [facility] ers mcg Cap 0-14 CAPSULE BY ity of 00:00: MOUTH [place] 00 EVERY DAY Medical Branch LINZESS 290 2021-09- No TAKE 1 [facility] vers mcg Cap 0-14 03-08 CAPSULE BY ity o f 00:00: 00:00 MOUTH [place] 00 :00 EVERY DAY Medical Branch LINZESS 290 2021-09- No TAKE 1 [facility] vers mcg Cap 0-14 03-08 CAPSULE BY ity o f 00:00: 00:00 MOUTH [place] 00 :00 EVERY DAY Medical Branch cephALEXin 2021-09- No [id number] 500mg Take 1 [facility] (KEFLEX) 0-03 10-09 capsule by ity of 500 mg 00:00: 04:59 mouth in [place] capsule 00 :00 the Medical morning Branch and 1 capsule at noon and 1 capsule in the evening. Do all this for 5 days. ferrous Yes [id number] 324mg Take 1 [facility] gluconate 9-14 tablet by ity o f 324 mg 00:00: mouth in [place] (37.5 mg 00 the Medical iron) morning Branch tablet and 1 tablet in the evening. ferrous Yes [id number] 324mg Take 1 [facility] gluconate 9-14 tablet by ity o f 324 mg 00:00: mouth in [place] (37.5 mg 00 the Medical iron) morning Branch tablet and 1 tablet in the evening. ferrous Yes [id number] 324mg Take 1 [facility] gluconate 9-14 tablet by ity o f 324 mg 00:00: mouth in [place] (37.5 mg 00 the Medical iron) morning Branch tablet and 1 tablet in the evening. ferrous 0 Yes [id number] 324mg Take 1 [facility] gluconate 9-14 tablet by ity o f 324 mg 00:00: mouth in [place] (37.5 mg 00 the Medical iron) morning Branch tablet and 1 tablet in the evening. ferrous Yes [id number] 324mg Take 1 [facility] gluconate 9-14 tablet by ity o f 324 mg 00:00: mouth in [place] (37.5 mg 00 the Medical iron) morning Branch tablet and 1 tablet in the evening. ferrous Yes [id number] 324mg Take 1 [facility] gluconate 9-14 tablet by ity o f 324 mg 00:00: mouth in [place] (37.5 mg 00 the Medical iron) morning Branch tablet and 1 tablet in the evening. ferrous Yes [id number] 324mg Take 1 [facility] gluconate 9-14 tablet by ity o f 324 mg 00:00: mouth in [place] (37.5 mg 00 the Medical iron) morning Branch tablet and 1 tablet in the evening. ferrous 2022- No [id number] 324mg Take 1 U nivers gluconate 9-14 01-25 tablet by ity of 324 mg 00:00: 00:00 mouth in [place] (37.5 mg 00 :00 the Medical iron) morning Branch tablet and 1 tablet in the evening. ferrous 2022- No [id number] 324mg Take 1 U nivers gluconate 9-14 01-25 tablet by ity of 324 mg 00:00: 00:00 mouth in [place] (37.5 mg 00 :00 the Medical iron) morning Branch tablet and 1 tablet in the evening. ferrous 2022- No [id number] 324mg Take 1 U nivers gluconate 9-14 01-25 tablet by ity of 324 mg 00:00: 00:00 mouth in [place] (37.5 mg 00 :00 the Medical iron) morning Branch tablet and 1 tablet in the evening. TOPIRAMATE 0 Yes [id number] TAKE 1 [facility] 50 mg 8-30 TABLET BY ity of tablet 00:00: MOUTH [place] 00 TWICE A Medical DAY Branch LEVOTHYROXI 2021-0 Yes [id number] TAKE 1 [facility] NE 25 mcg 8-30 TABLET BY ity o f tablet 00:00: MOUTH [place] 00 EVERY DAY Medical IN THE Branch MORNING TOPIRAMATE 2021-0 Yes [id number] TAKE 1 [facility] 50 mg 8-30 TABLET BY ity of tablet 00:00: MOUTH [place] 00 TWICE A Medical DAY Branch LEVOTHYROXI 2021-0 Yes [id number] TAKE 1 [facility] NE 25 mcg 8-30 TABLET BY ity o f tablet 00:00: MOUTH [place] 00 EVERY DAY Medical IN THE Branch MORNING TOPIRAMATE 2021-0 Yes [id number] TAKE 1 [facility] 50 mg 8-30 TABLET BY ity of tablet 00:00: MOUTH [place] 00 TWICE A Medical DAY [place] LEVOTHYROXI 2021-0 Yes [id number] TAKE 1 [facility] NE 25 mcg 8-30 TABLET BY ity o f tablet 00:00: MOUTH [place] 00 EVERY DAY Medical IN THE [place] MORNING TOPIRAMATE 2021-0 Yes [id number] TAKE 1 [facility] 50 mg 8-30 TABLET BY ity of tablet 00:00: MOUTH [place] 00 TWICE A Medical DAY Branch LEVOTHYROXI 2021-0 Yes [id number] TAKE 1 [facility] NE 25 mcg 8-30 TABLET BY ity o f tablet 00:00: MOUTH [place] 00 EVERY DAY Medical IN THE [place] MORNING TOPIRAMATE 2021-0 Yes [id number] TAKE 1 [facility] 50 mg 8-30 TABLET BY ity of tablet 00:00: MOUTH [place] 00 TWICE A Medical DAY [place] LEVOTHYROXI 2021-0 Yes [id number] TAKE 1 [facility] NE 25 mcg 8-30 TABLET BY ity o f tablet 00:00: MOUTH [place] 00 EVERY DAY Medical IN THE [place] MORNING TOPIRAMATE 2021-0 Yes [id number] TAKE 1 [facility] 50 mg 8-30 TABLET BY ity of tablet 00:00: MOUTH [place] 00 TWICE A Medical DAY [place] LEVOTHYROXI 2021-0 Yes [id number] TAKE 1 [facility] NE 25 mcg 8-30 TABLET BY ity o f tablet 00:00: MOUTH [place] 00 EVERY DAY Medical IN THE [place] MORNING TOPIRAMATE 2021-0 Yes [id number] TAKE 1 [facility] 50 mg 8-30 TABLET BY ity of tablet 00:00: MOUTH [place] 00 TWICE A Medical DAY [place] LEVOTHYROXI 2021-0 Yes [id number] TAKE 1 [facility] NE 25 mcg 8-30 TABLET BY ity o f tablet 00:00: MOUTH [place] 00 EVERY DAY Medical IN THE [place] MORNING TOPIRAMATE 2021-0 Yes [id number] TAKE 1 [facility] 50 mg 8-30 TABLET BY ity of tablet 00:00: MOUTH [place] 00 TWICE A Medical DAY [place] LEVOTHYROXI 2021-0 Yes [id number] TAKE 1 [facility] 25 mcg 8-30 TABLET BY ity o f tablet 00:00: MOUTH [place] 00 EVERY DAY Medical IN THE [place] MORNING TOPIRAMATE 2021-0 Yes [id number] TAKE 1 [facility] 50 mg 8-30 TABLET BY ity of tablet 00:00: MOUTH [place] 00 TWICE A Medical DAY [place] LEVOTHYROXI 2021-0 Yes [id number] TAKE 1 [facility] 25 mcg 8-30 TABLET BY ity o f tablet 00:00: MOUTH [place] 00 EVERY DAY Medical IN THE [place] MORNING TOPIRAMATE 2021- Yes [id number] TAKE 1 [facility] 50 mg 8-30 TABLET BY ity of tablet 00:00: MOUTH 00 TWICE A Medical DAY [place] LEVOTHYROXI 2021-0 Yes [id number] TAKE 1 [facility] 25 mcg 8-30 TABLET BY ity o f tablet 00:00: MOUTH [place] 00 EVERY DAY Medical IN THE [place] MORNING TOPIRAMATE Yes [id number] TAKE 1 [facility] 50 mg 8-30 TABLET BY ity of tablet 00:00: MOUTH 00 TWICE A Medical DAY [place] LEVOTHYROXI 2021-0 Yes [id number] TAKE 1 [facility] 25 mcg 8-30 TABLET BY ity o f tablet 00:00: MOUTH 00 EVERY DAY Medical IN THE [place] MORNING TOPIRAMATE 2021- Yes [id number] TAKE 1 [facility] 50 mg 8-30 TABLET BY ity of tablet 00:00: MOUTH [place] 00 TWICE A Medical DAY [place] LEVOTHYROXI 2021-0 Yes [id number] TAKE 1 [facility] 25 mcg 8-30 TABLET BY ity o f tablet 00:00: MOUTH 00 EVERY DAY Medical IN THE [place] MORNING TOPIRAMATE 2021- Yes [id number] TAKE 1 [facility] 50 mg 8-30 TABLET BY ity of tablet 00:00: MOUTH 00 TWICE A Medical DAY [place] LEVOTHYROXI 2021-0 Yes [id number] TAKE 1 [facility] 25 mcg 8-30 TABLET BY ity o f tablet 00:00: MOUTH [place] 00 EVERY DAY Medical IN THE [place] MORNING TOPIRAMATE 2021- Yes [id number] TAKE 1 [facility] 50 mg 8-30 TABLET BY ity of tablet 00:00: MOUTH 00 TWICE A Medical DAY [place] LEVOTHYROXI 2021-0 Yes [id number] TAKE 1 [facility] NE 25 mcg 8-30 TABLET BY ity o f tablet 00:00: MOUTH [place] 00 EVERY DAY Medical IN THE [place] MORNING TOPIRAMATE 2021-0 Yes [id number] TAKE 1 [facility] 50 mg 8-30 TABLET BY ity of tablet 00:00: MOUTH [place] 00 TWICE A Medical DAY [place] LEVOTHYROXI 2021-0 Yes [id number] TAKE 1 [facility] NE 25 mcg 8-30 TABLET BY ity o f tablet 00:00: MOUTH [place] 00 EVERY DAY Medical IN THE [place] MORNING TOPIRAMATE Yes [id number] TAKE 1 [facility] 50 mg 8-30 TABLET BY ity of tablet 00:00: MOUTH [place] 00 TWICE A Medical DAY [place] LEVOTHYROXI 2021-0 Yes [id number] TAKE 1 [facility] 25 mcg 8-30 TABLET BY ity o f tablet 00:00: MOUTH [place] 00 EVERY DAY Medical IN THE [place] MORNING TOPIRAMATE Yes [id number] TAKE 1 [facility] 50 mg 8-30 TABLET BY ity of tablet 00:00: MOUTH [place] 00 TWICE A Medical DAY [place] LEVOTHYROXI 2021- Yes [id number] TAKE 1 [facility] NE 25 mcg 8-30 TABLET BY ity o f tablet 00:00: MOUTH [place] 00 EVERY DAY Medical IN THE [place] MORNING TOPIRAMATE Yes [id number] TAKE 1 [facility] 50 mg 8-30 TABLET BY ity of tablet 00:00: MOUTH [place] 00 TWICE A Medical DAY [place] LEVOTHYROXI 2021- Yes [id number] TAKE 1 [facility] NE 25 mcg 8-30 TABLET BY ity o f tablet 00:00: MOUTH [place] 00 EVERY DAY Medical IN THE [place] MORNING TOPIRAMATE Yes [id number] TAKE 1 [facility] 50 mg 8-30 TABLET BY ity of tablet 00:00: MOUTH [place] 00 TWICE A Medical DAY [place] LEVOTHYROXI 2021-0 Yes [id number] TAKE 1 [facility] NE 25 mcg 8-30 TABLET BY ity o f tablet 00:00: MOUTH [place] 00 EVERY DAY Medical IN THE [place] MORNING TOPIRAMATE 2021- Yes [id number] TAKE 1 [facility] 50 mg 8-30 TABLET BY ity of tablet 00:00: MOUTH [place] 00 TWICE A Medical DAY [place] LEVOTHYROXI 2021-0 Yes [id number] TAKE 1 [facility] NE 25 mcg 8-30 TABLET BY ity o f tablet 00:00: MOUTH [place] 00 EVERY DAY Medical IN THE [place] MORNING TOPIRAMATE 2021- Yes [id number] TAKE 1 [facility] 50 mg 8-30 TABLET BY ity of tablet 00:00: MOUTH [place] 00 TWICE A Medical DAY [place] LEVOTHYROXI 2021-0 Yes [id number] TAKE 1 [facility] NE 25 mcg 8-30 TABLET BY ity o f tablet 00:00: MOUTH [place] 00 EVERY DAY Medical IN THE [place] MORNING TOPIRAMATE Yes [id number] TAKE 1 [facility] 50 mg 8-30 TABLET BY ity of tablet 00:00: MOUTH [place] 00 TWICE A Medical DAY [place] LEVOTHYROXI 2021-0 Yes [id number] TAKE 1 [facility] NE 25 mcg 8-30 TABLET BY ity o f tablet 00:00: MOUTH [place] 00 EVERY DAY Medical IN THE [place] MORNING TOPIRAMATE 0 Yes [id number] TAKE 1 [facility] 50 mg 8-30 TABLET BY ity of tablet 00:00: MOUTH [place] 00 TWICE A Medical DAY [place] LEVOTHYROXI 2021-0 Yes [id number] TAKE 1 [facility] NE 25 mcg 8-30 TABLET BY ity o f tablet 00:00: MOUTH 00 EVERY DAY Medical IN THE [place] MORNING TOPIRAMATE Yes [id number] TAKE 1 [facility] 50 mg 8-30 TABLET BY ity of tablet 00:00: MOUTH 00 TWICE A Medical DAY [place] LEVOTHYROXI 2021-0 Yes [id number] TAKE 1 [facility] NE 25 mcg 8-30 TABLET BY ity o f tablet 00:00: MOUTH 00 EVERY DAY Medical IN THE [place] MORNING TOPIRAMATE 0 Yes [id number] TAKE 1 [facility] 50 mg 8-30 TABLET BY ity of tablet 00:00: MOUTH 00 TWICE A Medical DAY [place] LEVOTHYROXI 2021-0 Yes [id number] TAKE 1 [facility] NE 25 mcg 8-30 TABLET BY ity o f tablet 00:00: MOUTH 00 EVERY DAY Medical IN THE [place] MORNING TOPIRAMATE 0 Yes [id number] TAKE 1 [facility] 50 mg 8-30 TABLET BY ity of tablet 00:00: MOUTH 00 TWICE A Medical DAY [place] LEVOTHYROXI 2021-0 Yes [id number] TAKE 1 [facility] NE 25 mcg 8-30 TABLET BY ity o f tablet 00:00: MOUTH [place] 00 EVERY DAY Medical IN THE [place] MORNING TOPIRAMATE 2021-0 Yes [id number] TAKE 1 [facility] 50 mg 8-30 TABLET BY ity of tablet 00:00: MOUTH [place] 00 TWICE A Medical DAY [place] LEVOTHYROXI 2021-0 Yes [id number] TAKE 1 [facility] NE 25 mcg 8-30 TABLET BY ity o f tablet 00:00: MOUTH [place] 00 EVERY DAY Medical IN THE [place] MORNING TOPIRAMATE 2021-0 2023- No [id number] TAKE 1 [facility] 50 mg 8-30 03-08 TABLET BY ity of tablet 00:00: 00:00 MOUTH [place] 00 :00 TWICE A Medical DAY [place] LEVOTHYROXI 2022- No [id number] TAKE 1 [facility] NE 25 mcg 05-07 TABLET BY ity of tablet 00:00: 00:00 MOUTH [place] 00 :00 EVERY DAY Medical IN THE [place] MORNING TOPIRAMATE 2022- No [id number] TAKE 1 [facility] 50 mg 05-07 TABLET BY ity of tablet 00:00: 00:00 MOUTH [place] 00 :00 TWICE A Medical DAY [place] LEVOTHYROXI 2022- No [id number] TAKE 1 [facility] NE 25 mcg 05-07 TABLET BY ity of tablet 00:00: 00:00 MOUTH [place] 00 :00 EVERY DAY Medical IN THE [place] MORNING FERROUS 2021- No [id number] TAKE 1 [facility] vers GLUCONATE 05-06 TABLET BY ity of 324 mg (38 00:00: 00:00 MOUTH [place] mg iron) 00 :00 EVERY DAY Medica l tablet [place] FERROUS 2021- No [id number] TAKE 1 [facility] vers GLUCONATE 05-06 TABLET BY ity of 324 mg (38 00:00: 00:00 MOUTH [place] mg iron) 00 :00 EVERY DAY Medica l tablet [place] MAGNESIUM Yes [id number] TAKE 1 U nivers OXIDE 400 8-28 TABLET BY ity o f mg (241.3 00:00: MOUTH [place] mg 00 EVERY DAY Medical magnesium) [place] tablet MAGNESIUM 2021-0 Yes [id number] TAKE 1 U nivers OXIDE 400 8-28 TABLET BY ity o f mg (241.3 00:00: MOUTH [place] mg 00 EVERY DAY Medical magnesium) Branch tablet MAGNESIUM 2021-0 Yes [id number] TAKE 1 U nivers OXIDE 400 8-28 TABLET BY ity o f mg (241.3 00:00: MOUTH [place] mg 00 EVERY DAY Medical magnesium) Branch tablet MAGNESIUM 2021- Yes [id number] TAKE 1 U nivers OXIDE 400 8-28 TABLET BY ity o f mg (241.3 00:00: MOUTH [place] mg 00 EVERY DAY Medical magnesium) Branch tablet MAGNESIUM 2021- Yes [id number] TAKE 1 U nivers OXIDE 400 8-28 TABLET BY ity o f mg (241.3 00:00: MOUTH [place] mg 00 EVERY DAY Medical magnesium) Branch tablet MAGNESIUM 2021-0 Yes [id number] TAKE 1 U nivers OXIDE 400 8-28 TABLET BY ity o f mg (241.3 00:00: MOUTH [place] mg 00 EVERY DAY Medical magnesium) Branch tablet MAGNESIUM 2021-0 Yes [id number] TAKE 1 U nivers OXIDE 400 8-28 TABLET BY ity o f mg (241.3 00:00: MOUTH [place] mg 00 EVERY DAY Medical magnesium) Branch tablet MAGNESIUM 0 Yes [id number] TAKE 1 U nivers OXIDE 400 8-28 TABLET BY ity o f mg (241.3 00:00: MOUTH [place] mg 00 EVERY DAY Medical magnesium) Branch tablet MAGNESIUM 0 Yes [id number] TAKE 1 [facility] OXIDE 400 8-28 TABLET BY ity o f mg (241.3 00:00: MOUTH [place] mg 00 EVERY DAY Medical magnesium) Branch tablet MAGNESIUM 0 Yes [id number] TAKE 1 [facility] OXIDE 400 8-28 TABLET BY ity o f mg (241.3 00:00: MOUTH [place] mg 00 EVERY DAY Medical magnesium) Branch tablet MAGNESIUM 0 2022- No [id number] TAKE 1 [facility] OXIDE 400 8-28 01-25 TABLET BY ity of mg (241.3 00:00: 00:00 MOUTH [place] mg 00 :00 EVERY DAY Medical magnesium) Branch tablet MAGNESIUM 2021-0 2022- No [id number] TAKE 1 [facility] OXIDE 400 8-28 01-25 TABLET BY ity of mg (241.3 00:00: 00:00 MOUTH [place] mg 00 :00 EVERY DAY Medical magnesium) Branch tablet MAGNESIUM 2022- No [id number] TAKE 1 [facility] OXIDE 400 8-28 01-25 TABLET BY ity of mg (241.3 00:00: 00:00 MOUTH [place] mg 00 :00 EVERY DAY Medical magnesium) Branch tablet lactulose Yes [id number] 15mL Take 15 mL [facility] 10 gram/15 8-22 by mouth 2 ity of mL solution 00:00: (two) [place] 00 times Medical daily as Branch needed for Constipati on. lactulose 2021-0 Yes [id number] 15mL Take 15 mL [facility] 10 gram/15 8-22 by mouth 2 ity of mL solution 00:00: (two) [place] 00 times Medical daily as Branch needed for Constipati on. lactulose 2-0 Yes [id number] 15mL Take 15 mL [facility] 10 gram/15 8-22 by mouth 2 ity of mL solution 00:00: (two) [place] 00 times Medical daily as Branch needed for Constipati on. lactulose 2-0 Yes [id number] 15mL Take 15 mL [facility] 10 gram/15 8-22 by mouth 2 ity of mL solution 00:00: (two) [place] 00 times Medical daily as Branch needed for Constipati on. lactulose 2021-0 Yes [id number] 15mL Take 15 mL [facility] 10 gram/15 8-22 by mouth 2 ity of mL solution 00:00: (two) [place] 00 times Medical daily as Branch needed for Constipati on. lactulose 2021-0 Yes [id number] 15mL Take 15 mL [facility] 10 gram/15 8-22 by mouth 2 ity of mL solution 00:00: (two) [place] 00 times Medical daily as Branch needed for Constipati on. lactulose 2021-0 Yes [id number] 15mL Take 15 mL [facility] 10 gram/15 8-22 by mouth 2 ity of mL solution 00:00: (two) [place] 00 times Medical daily as Branch needed for Constipati on. lactulose 2021-0 Yes [id number] 15mL Take 15 mL [facility] 10 gram/15 8-22 by mouth 2 ity of mL solution 00:00: (two) [place] 00 times Medical daily as Branch needed for Constipati on. lactulose 2021-0 2- No [id number] 15mL Take 15 mL [facility] 10 gram/15 8-22 11-22 by mouth 2 it y of mL solution 00:00: 00:00 (two[place] 00 :00 times Medical daily as Branch needed for Constipati on. LISINOPRIL 2021-0 Yes TAKE 1 [facility] 20 mg 7-20 TABLET BY ity of tablet 00:00: MOUTH [place] EVERY DAY Medical Branch LISINOPRIL 2021-0 Yes TAKE 1 [facility] 20 mg 7-20 TABLET BY ity of tablet 00:00: MOUTH [place] EVERY DAY Medical Branch LISINOPRIL 2021-0 Yes TAKE 1 [facility] 20 mg 7-20 TABLET BY ity of tablet 00:00: MOUTH [place] EVERY DAY Medical Branch LISINOPRIL 2022-0 Yes TAKE 1 [facility] 20 mg 7-20 TABLET BY ity of tablet 00:00: MOUTH EVERY DAY Medical Branch LISINOPRIL 2-0 Yes TAKE 1 [facility] 20 mg 7-20 TABLET BY ity of tablet 00:00: EVERY DAY Medical Branch LISINOPRIL 2-0 Yes TAKE 1 [facility] 20 mg 7-20 TABLET BY ity of tablet 00:00: [facility] EVERY DAY Medical Branch LISINOPRIL 2-0 Yes TAKE 1 [facility] 20 mg 7-20 TABLET BY ity of tablet 00:00: EVERY DAY Medical Branch LISINOPRIL 2021-0 Yes TAKE 1 [facility] 20 mg 7-20 TABLET BY ity of tablet 00:00: [facility] EVERY DAY Medical Branch LISINOPRIL 2021-0 Yes TAKE 1 [facility] 20 mg 7-20 TABLET BY ity of tablet 00:00: [facility] EVERY DAY Medical Branch LISINOPRIL 2021-0 Yes TAKE 1 [facility] 20 mg 7-20 TABLET BY ity of tablet 00:00: [facility] EVERY DAY Medical Branch LISINOPRIL 2-0 Yes TAKE 1 [facility] 20 mg 7-20 TABLET BY ity of tablet 00:00: [facility] EVERY DAY Medical Branch LISINOPRIL 2-0 Yes TAKE 1 [facility] 20 mg 7-20 TABLET BY ity of tablet 00:00: [facility] EVERY DAY Medical Branch LISINOPRIL 2-0 Yes TAKE 1 [facility] 20 mg 7-20 TABLET BY ity of tablet 00:00: [facility] EVERY DAY Medical Branch LISINOPRIL 2-0 Yes TAKE 1 [facility] 20 mg 7-20 TABLET BY ity of tablet 00:00: [facility] EVERY DAY Medical Branch LISINOPRIL 2-0 Yes TAKE 1 [facility] 20 mg 7-20 TABLET BY ity of tablet 00:00: [facility] EVERY DAY Medical Branch LISINOPRIL 2-0 Yes TAKE 1 [facility] 20 mg 7-20 TABLET BY ity of tablet 00:00: [facility] EVERY DAY Medical Branch LISINOPRIL 2-0 Yes TAKE 1 [facility] 20 mg 7-20 TABLET BY ity of tablet 00:00: [facility] EVERY DAY Medical Branch LISINOPRIL 2-0 Yes TAKE 1 [facility] rs 20 mg 7-20 TABLET BY ity of tablet 00:00: [facility] EVERY DAY Medical Branch LISINOPRIL 2-0 Yes TAKE 1 [facility] rs 20 mg 7-20 TABLET BY ity of tablet 00:00: [facility] EVERY DAY Medical Branch LISINOPRIL 2021-0 Yes TAKE 1 [facility] rs 20 mg 7-20 TABLET BY ity of tablet 00:00: [facility] EVERY DAY Medical Branch LISINOPRIL 2021-0 Yes TAKE 1 [facility] rs 20 mg 7-20 TABLET BY ity of tablet 00:00: [facility] EVERY DAY Medical Branch LISINOPRIL 2021-0 Yes TAKE 1 [facility] 20 mg 7-20 TABLET BY ity of tablet 00:00: [facility] EVERY DAY Medical Branch LISINOPRIL 2021-0 Yes TAKE 1 [facility] 20 mg 7-20 TABLET BY ity of tablet 00:00: [facility] EVERY DAY Medical Branch LISINOPRIL 2021-0 Yes TAKE 1 [facility] 20 mg 7-20 TABLET BY ity of tablet 00:00: [facility] EVERY DAY Medical Branch LISINOPRIL 2021-0 Yes TAKE 1 [facility] 20 mg 7-20 TABLET BY ity of tablet 00:00: [facility] EVERY DAY Medical Branch LISINOPRIL 2021-0 Yes TAKE 1 [facility] rs 20 mg 7-20 TABLET BY ity of tablet 00:00: [facility] EVERY DAY Medical Branch LISINOPRIL 2021-0 Yes TAKE 1 [facility] 20 mg 7-20 TABLET BY ity of tablet 00:00: [facility] EVERY DAY Medical Branch LISINOPRIL 2-0 2023- No TAKE 1 [facility] ers 20 mg 7-20 03-08 TABLET BY ity of tablet 00:00: 00:00 [facility] 00 :00 EVERY DAY Medical Branch LISINOPRIL 2021-0 3- No TAKE 1 [facility] ers 20 mg 7-20 03-08 TABLET BY ity of tablet 00:00: 00:00 [facility] 00 :00 EVERY DAY Medical Branch ondansetron 2021-0 2- No Unive rs 4 mg 6-17 - ity of disintegrat 00:00: 00:00 [place] ing tablet 00 :00 Medical Branch ondansetron 2021- No Unive rs 4 mg 02-22 ity of disintegrat 00:00: 00:00 [place] ing tablet 00 :00 Medical Branch XARELTO 10 2021- No 10mg Take 10 mg [facility] mg tablet 02-13 by mouth ity o f 00:00: 00:00 daily. [place] 00 :00 Medical Branch XARELTO 10 2021- No 10mg Take 10 mg [facility] mg tablet 02-13 by mouth ity o f 00:00: 00:00 daily. [place] 00 :00 Medical Branch diazePAM 2021- No [id number] 2mg Take 1 [facility] (VALIUM) 2 12-19 tablet by ity of mg tablet 00:00: 00:00 mouth 2 [place] 00 :[place] (two) Medical times Branch daily as needed for Anxiety. diazePAM 2021- No [id number] 2mg Take 1 [facility] (VALIUM) 2 12-19 tablet by ity of mg tablet 00:00: 00:00 mouth 2 [place] 00 :[place] (two) Medical times Branch daily as needed for Anxiety. gabapentin 2021- No [id number] 300mg Take 1 [facility] 300 mg 11-19 [id number] capsule by ity of capsule 00:00: 00:00 mouth 3 [place] 00 :00 (three) Medical times Branch daily. methylPREDN 2021- No [id number] [facility] [id number] mouth ity of mg tablets 00:00: 00:00 SEE-INSTRU [place] 00 :00 CTIONS. Medical follow Branch package directions gabapentin 2021- No [id number] 300mg Take 1 [facility] 300 mg 11-19 [id number] capsule by ity of capsule 00:00: 00:00 mouth 3 [place] 00 :00 (three) Medical times Branch daily. methylPREDN 2021- No [id number] [facility] [id number] mouth ity of mg tablets 00:00: 00:00 SEE-INSTRU [place] 00 :00 CTIONS. Medical follow Branch package directions ergocalcife 2021- No [id number] Take 1 [facility] rol, 10-16 capsule by ity of vitamin d2, 00:00: 00:00 mouth [place] 1,250 mcg 00 :00 weekly. Medical (50,000 Branch unit) capsule ergocalcife 2021- No [id number] Take 1 [facility] rol, 10-16 capsule by ity of vitamin d2, 00:00: 00:00 mouth [place] 1,250 mcg 00 :00 weekly. Medical (50,000 Branch unit) capsule loratadine Yes [id number] 10mg Take 1 [facility] 10 mg 1-31 tablet by ity of tablet 00:00: mouth [place] 00 daily. Medical Branch proMETHazin Yes [id number] 25mg Take 1 [facility] e 25 mg 1-31 tablet by ity of tablet 00:00: mouth 2 00 (two) Medical times Branch daily as needed for Nausea and Vomiting (N/V). SERTraline Yes [id number] 100mg Take 1 [facility] 100 mg 1-31 tablet by ity of tablet 00:00: mouth [place] 00 daily. Medical Branch pantoprazol Yes [id number] 40mg Take 1 [facility] e 40 mg EC 1-31 tablet by ity of tablet 00:00: mouth 2 (two) Medical times Branch daily. loratadine Yes [id number] 10mg Take 1 [facility] 10 mg 1-31 tablet by ity of tablet 00:00: mouth [place] 00 daily. Medical Branch proMETHazin 0 Yes [id number] 25mg Take 1 [facility] e 25 mg 1-31 tablet by ity of tablet 00:00: mouth 2 [place] (two) Medical times Branch daily as needed for Nausea and Vomiting (N/V). SERTraline 2021-0 Yes [id number] 100mg Take 1 [facility] 100 mg 1-31 tablet by ity of tablet 00:00: mouth [place] 00 daily. Medical Branch pantoprazol Yes [id number] 40mg Take 1 [facility] e 40 mg EC 1-31 tablet by ity of tablet 00:00: mouth 2 00 (two) Medical times Branch daily. loratadine 2021-0 Yes [id number] 10mg Take 1 [facility] 10 mg 1-31 tablet by ity of tablet 00:00: mouth [place] 00 daily. Medical Branch proMETHazin 2021-0 Yes [id number] 25mg Take 1 [facility] e 25 mg 1-31 tablet by ity of tablet 00:00: mouth 2 (two) Medical times Branch daily as needed for Nausea and Vomiting (N/V). SERTraline 2021-0 Yes [id number] 100mg Take 1 [facility] 100 mg 1-31 tablet by ity of tablet 00:00: mouth [place] 00 daily. Medical Branch pantoprazol 2021-0 Yes [id number] 40mg Take 1 [facility] e 40 mg EC 1-31 tablet by ity of tablet 00:00: mouth 2 00 (two) Medical times Branch daily. loratadine 2021-0 Yes [id number] 10mg Take 1 [facility] 10 mg 1-31 tablet by ity of tablet 00:00: mouth [place] 00 daily. Medical Branch proMETHazin 2021-0 Yes [id number] 25mg Take 1 [facility] e 25 mg 1-31 tablet by ity of tablet 00:00: mouth 2 (two) Medical times Branch daily as needed for Nausea and Vomiting (N/V). SERTraline 2021-0 Yes [id number] 100mg Take 1 [facility] 100 mg 1-31 tablet by ity of tablet 00:00: mouth [place] 00 daily. Medical Branch pantoprazol 2021-0 Yes [id number] 40mg Take 1 [facility] e 40 mg EC 1-31 tablet by ity of tablet 00:00: mouth 2 (two) Medical times Branch daily. loratadine 2021-0 Yes [id number] 10mg Take 1 [facility] 10 mg 1-31 tablet by ity of tablet 00:00: mouth [place] 00 daily. Medical Branch proMETHazin 2021-0 Yes [id number] 25mg Take 1 [facility] e 25 mg 1-31 tablet by ity of tablet 00:00: mouth 2 00 (two) Medical times Branch daily as needed for Nausea and Vomiting (N/V). SERTraline 2021-0 Yes [id number] 100mg Take 1 [facility] 100 mg 1-31 tablet by ity of tablet 00:00: mouth [place] 00 daily. Medical Branch pantoprazol 2021-0 Yes [id number] 40mg Take 1 [facility] e 40 mg EC 1-31 tablet by ity of tablet 00:00: mouth 2 (two) Medical times Branch daily. loratadine 2021-0 Yes [id number] 10mg Take 1 [facility] 10 mg 1-31 tablet by ity of tablet 00:00: mouth [place] 00 daily. Medical Branch proMETHazin 2021-0 Yes [id number] 25mg Take 1 [facility] e 25 mg 1-31 tablet by ity of tablet 00:00: mouth 2 (two) Medical times Branch daily as needed for Nausea and Vomiting (N/V). SERTraline 2021-0 Yes [id number] 100mg Take 1 [facility] 100 mg 1-31 tablet by ity of tablet 00:00: mouth [place] 00 daily. Medical Branch pantoprazol 2021-0 Yes [id number] 40mg Take 1 [facility] e 40 mg EC 1-31 tablet by ity of tablet 00:00: mouth 2 (two) Medical times Branch daily. loratadine 2021-0 Yes [id number] 10mg Take 1 [facility] 10 mg 1-31 tablet by ity of tablet 00:00: mouth 00 daily. Medical Branch proMETHazin 2021-0 Yes [id number] 25mg Take 1 [facility] e 25 mg 1-31 tablet by ity of tablet 00:00: mouth (two) Medical times Branch daily as needed for Nausea and Vomiting (N/V). SERTraline 2021-0 Yes [id number] 100mg Take 1 [facility] 100 mg 1-31 tablet by ity of tablet 00:00: mouth [place] 00 daily. Medical Branch pantoprazol 2021-0 Yes [id number] 40mg Take 1 [facility] e 40 mg EC 1-31 tablet by ity of tablet 00:00: mouth 2 (two) Medical times Branch daily. loratadine 2021-0 Yes [id number] 10mg Take 1 [facility] 10 mg 1-31 tablet by ity of tablet 00:00: mouth [place] 00 daily. Medical Branch proMETHazin 2021-0 Yes [id number] 25mg Take 1 [facility] e 25 mg 1-31 tablet by ity of tablet 00:00: mouth 2 (two) Medical times Branch daily as needed for Nausea and Vomiting (N/V). SERTraline 2021-0 Yes [id number] 100mg Take 1 [facility] 100 mg 1-31 tablet by ity of tablet 00:00: mouth [place] 00 daily. Medical Branch pantoprazol 2021-0 Yes [id number] 40mg Take 1 [facility] e 40 mg EC 1-31 tablet by ity of tablet 00:00: mouth (two) Medical times Branch daily. loratadine 2021-0 Yes [id number] 10mg Take 1 [facility] 10 mg 1-31 tablet by ity of tablet 00:00: mouth [place] 00 daily. Medical Branch proMETHazin 0 Yes [id number] 25mg Take 1 [facility] e 25 mg 1-31 tablet by ity of tablet 00:00: mouth (two) Medical times Branch daily as needed for Nausea and Vomiting (N/V). SERTraline 2021-0 Yes [id number] 100mg Take 1 [facility] 100 mg 1-31 tablet by ity of tablet 00:00: mouth 00 daily. Medical Branch pantoprazol 0 Yes [id number] 40mg Take 1 [facility] e 40 mg EC 1-31 tablet by ity of tablet 00:00: mouth (two) Medical times Branch daily. loratadine 2021-0 Yes [id number] 10mg Take 1 [facility] 10 mg 1-31 tablet by ity of tablet 00:00: mouth 00 daily. Medical Branch proMETHazin 0 Yes [id number] 25mg Take 1 [facility] e 25 mg 1-31 tablet by ity of tablet 00:00: mouth (two) Medical times Branch daily as needed for Nausea and Vomiting (N/V). SERTraline 2021-0 Yes [id number] 100mg Take 1 [facility] 100 mg 1-31 tablet by ity of tablet 00:00: mouth 00 daily. Medical Branch pantoprazol 0 Yes [id number] 40mg Take 1 [facility] e 40 mg EC 1-31 tablet by ity of tablet 00:00: mouth (two) Medical times Branch daily. loratadine 2021-0 Yes [id number] 10mg Take 1 [facility] 10 mg 1-31 tablet by ity of tablet 00:00: mouth [place] 00 daily. Medical Branch proMETHazin 0 Yes [id number] 25mg Take 1 [facility] e 25 mg 1-31 tablet by ity of tablet 00:00: mouth (two) Medical times Branch daily as needed for Nausea and Vomiting (N/V). SERTraline 2021-0 Yes [id number] 100mg Take 1 [facility] 100 mg 1-31 tablet by ity of tablet 00:00: mouth [place] 00 daily. Medical Branch pantoprazol 2021-0 Yes [id number] 40mg Take 1 [facility] e 40 mg EC 1-31 tablet by ity of tablet 00:00: mouth 2 [place] 00 (two) Medical times Branch daily. loratadine 2021-0 Yes [id number] 10mg Take 1 [facility] 10 mg 1-31 tablet by ity of tablet 00:00: mouth [place] 00 daily. Medical Branch proMETHazin 0 Yes [id number] 25mg Take 1 [facility] e 25 mg 1-31 tablet by ity of tablet 00:00: mouth 2 (two) Medical times Branch daily as needed for Nausea and Vomiting (N/V). SERTraline 0 Yes [id number] 100mg Take 1 [facility] 100 mg 1-31 tablet by ity of tablet 00:00: mouth [place] 00 daily. Medical Branch pantoprazol 0 Yes [id number] 40mg Take 1 [facility] e 40 mg EC 1-31 tablet by ity of tablet 00:00: mouth 2 (two) Medical times Branch daily. loratadine 2021-0 Yes [id number] 10mg Take 1 [facility] 10 mg 1-31 tablet by ity of tablet 00:00: mouth [place] 00 daily. Medical Branch proMETHazin 2021-0 Yes [id number] 25mg Take 1 [facility] e 25 mg 1-31 tablet by ity of tablet 00:00: mouth 2 (two) Medical times Branch daily as needed for Nausea and Vomiting (N/V). SERTraline 2021-0 Yes [id number] 100mg Take 1 [facility] 100 mg 1-31 tablet by ity of tablet 00:00: mouth [place] 00 daily. Medical Branch pantoprazol 2021-0 Yes [id number] 40mg Take 1 [facility] e 40 mg EC 1-31 tablet by ity of tablet 00:00: mouth 2 [place] 00 (two) Medical times Branch daily. loratadine 2021-0 Yes [id number] 10mg Take 1 [facility] 10 mg 1-31 tablet by ity of tablet 00:00: mouth [place] 00 daily. Medical Branch proMETHazin 2021-0 Yes [id number] 25mg Take 1 [facility] e 25 mg 1-31 tablet by ity of tablet 00:00: mouth 2 00 (two) Medical times Branch daily as needed for Nausea and Vomiting (N/V). SERTraline 0 Yes [id number] 100mg Take 1 [facility] 100 mg 1-31 tablet by ity of tablet 00:00: mouth [place] 00 daily. Medical Branch pantoprazol 0 Yes [id number] 40mg Take 1 [facility] e 40 mg EC 1-31 tablet by ity of tablet 00:00: mouth 2 [place] 00 (two) Medical times Branch daily. loratadine 0 Yes [id number] 10mg Take 1 [facility] 10 mg 1-31 tablet by ity of tablet 00:00: mouth [place] 00 daily. Medical Branch proMETHazin Yes [id number] 25mg Take 1 [facility] e 25 mg 1-31 tablet by ity of tablet 00:00: mouth 2 (two) Medical times Branch daily as needed for Nausea and Vomiting (N/V). SERTraline 0 Yes [id number] 100mg Take 1 [facility] 100 mg 1-31 tablet by ity of tablet 00:00: mouth [place] 00 daily. Medical Branch pantoprazol Yes [id number] 40mg Take 1 [facility] e 40 mg EC 1-31 tablet by ity of tablet 00:00: mouth 2 (two) Medical times Branch daily. loratadine 2021-0 Yes [id number] 10mg Take 1 [facility] 10 mg 1-31 tablet by ity of tablet 00:00: mouth [place] 00 daily. Medical Branch proMETHazin 0 Yes [id number] 25mg Take 1 [facility] e 25 mg 1-31 tablet by ity of tablet 00:00: mouth 2 00 (two) Medical times Branch daily as needed for Nausea and Vomiting (N/V). SERTraline 2021-0 Yes [id number] 100mg Take 1 [facility] 100 mg 1-31 tablet by ity of tablet 00:00: mouth [place] 00 daily. Medical Branch pantoprazol 0 Yes [id number] 40mg Take 1 [facility] e 40 mg EC 1-31 tablet by ity of tablet 00:00: mouth 2 [place] 00 (two) Medical times Branch daily. loratadine 2021-0 Yes [id number] 10mg Take 1 [facility] 10 mg 1-31 tablet by ity of tablet 00:00: mouth [place] 00 daily. Medical Branch proMETHazin 2021-0 Yes [id number] 25mg Take 1 [facility] e 25 mg 1-31 tablet by ity of tablet 00:00: mouth 2 (two) Medical times Branch daily as needed for Nausea and Vomiting (N/V). SERTraline 2021-0 Yes [id number] 100mg Take 1 [facility] 100 mg 1-31 tablet by ity of tablet 00:00: mouth [place] 00 daily. Medical Branch pantoprazol 2021-0 Yes [id number] 40mg Take 1 [facility] e 40 mg EC 1-31 tablet by ity of tablet 00:00: mouth 2 00 (two) Medical times Branch daily. loratadine 2021-0 Yes [id number] 10mg Take 1 [facility] 10 mg 1-31 tablet by ity of tablet 00:00: mouth [place] 00 daily. Medical Branch proMETHazin 0 Yes [id number] 25mg Take 1 [facility] e 25 mg 1-31 tablet by ity of tablet 00:00: mouth 2 (two) Medical times Branch daily as needed for Nausea and Vomiting (N/V). SERTraline 2021-0 Yes [id number] 100mg Take 1 [facility] 100 mg 1-31 tablet by ity of tablet 00:00: mouth [place] 00 daily. Medical Branch pantoprazol 2021-0 Yes [id number] 40mg Take 1 [facility] e 40 mg EC 1-31 tablet by ity of tablet 00:00: mouth 2 (two) Medical times Branch daily. proMETHazin 2021-0 Yes [id number] 25mg Take 1 [facility] e 25 mg 1-31 tablet by ity of tablet 00:00: mouth 2 (two) Medical times Branch daily as needed for Nausea and Vomiting (N/V). proMETHazin 2021-0 Yes [id number] 25mg Take 1 [facility] e 25 mg 1-31 tablet by ity of tablet 00:00: mouth 2 00 (two) Medical times Branch daily as needed for Nausea and Vomiting (N/V). proMETHazin 2021-0 Yes [id number] 25mg Take 1 [facility] e 25 mg 1-31 tablet by ity of tablet 00:00: mouth 2 (two) Medical times Branch daily as needed for Nausea and Vomiting (N/V). proMETHazin 2021-0 Yes [id number] 25mg Take 1 [facility] e 25 mg 1-31 tablet by ity of tablet 00:00: mouth 2 (two) Medical times Branch daily as needed for Nausea and Vomiting (N/V). proMETHazin 2021-0 Yes [id number] 25mg Take 1 [facility] e 25 mg 1-31 tablet by ity of tablet 00:00: mouth 2 00 (two) Medical times Branch daily as needed for Nausea and Vomiting (N/V). proMETHazin 2021-0 Yes [id number] 25mg Take 1 [facility] e 25 mg 1-31 tablet by ity of tablet 00:00: mouth 2 (two) Medical times Branch daily as needed for Nausea and Vomiting (N/V). proMETHazin 2021-0 Yes [id number] 25mg Take 1 [facility] e 25 mg 1-31 tablet by ity of tablet 00:00: mouth (two) Medical times Branch daily as needed for Nausea and Vomiting (N/V). proMETHazin 2022- No [id number] 25mg Take 1 [facility] e 25 mg 10-08- tablet by ity of tablet 00:00: 00:00 mouth 2 00 :00 (two) Medical times Branch daily as needed for Nausea and Vomiting (N/V). loratadine 2022- No [id number] 10mg Take 1 [facility] 10 mg 10-08 tablet by ity of tablet 00:00: 00:00 mouth [place] 00 :00 daily. Medical Branch SERTraline 2022- No [id number] 100mg Take 1 [facility] 100 mg 10-08 tablet by ity of tablet 00:00: 00:00 mouth [place] 00 :00 daily. Medical Branch pantoprazol 2022- No [id number] 40mg Take 1 [facility] e 40 mg EC 10-08 tablet by ity of tablet 00:00: 00:00 mouth 2 [place] 00 :00 (two) Medical times Branch daily. loratadine 2022- No [id number] 10mg Take 1 [facility] 10 mg 10-08 tablet by ity of tablet 00:00: 00:00 mouth [place] 00 :00 daily. Medical Branch SERTraline 2022- No [id number] 100mg Take 1 [facility] 100 mg 10-08 tablet by ity of tablet 00:00: 00:00 mouth [place] 00 :00 daily. Medical Branch pantoprazol 2022- No [id number] 40mg Take 1 [facility] e 40 mg EC 10-08 tablet by ity of tablet 00:00: 00:00 mouth 2 [place] 00 :00 (two) Medical times Branch daily. loratadine 2022- No [id number] 10mg Take 1 [facility] 10 mg 10-08 tablet by ity of tablet 00:00: 00:00 mouth [place] 00 :00 daily. Medical Branch SERTraline 2022- No [id number] 100mg Take 1 [facility] 100 mg 10-08 tablet by ity of tablet 00:00: 00:00 mouth [place] 00 :00 daily. Medical Branch pantoprazol 2022- No [id number] 40mg Take 1 [facility] e 40 mg EC 10-08 tablet by ity of tablet 00:00: 00:00 mouth 2 [place] 00 :00 (two) Medical times Branch daily. linaCLOtide 2021- No [id number] 290ug Take 1 [facility] (LINZESS) 10-08 capsule by ity of 290 mcg Cap 00:00: 00:00 mouth [place] 00 :00 daily. Medical Branch linaCLOtide 2021- No [id number] 290ug Take 1 [facility] (LINZESS) 10-08 capsule by ity of 290 mcg Cap 00:00: 00:00 mouth [place] 00 :00 daily. Medical Branch fluticasone Yes Univer s propionate 6-22 ity of 50 00:00: [place] mcg/actuati 00 Medical on nasal Branch spray fluticasone Yes Univer s propionate 6-22 ity of 50 00:00: [place] mcg/actuati 00 Medical on nasal Branch spray fluticasone Yes Univer s propionate 6-22 ity of 50 00:00: [place] mcg/actuati 00 Medical on nasal Branch spray fluticasone 2021-0 Yes Univer s propionate 6-22 ity of [...] 00 Medical on nasal Branch spray fluticasone Yes Univer s propionate 6-22 ity of 50 00:00: [place] mcg/actuati 00 Medical on nasal Branch spray fluticasone Yes Univer s propionate 6-22 ity of 50 00:00: [place] mcg/actuati 00 Medical on nasal Branch spray fluticasone Yes Univer s propionate 6-22 ity of 50 00:00: [place] mcg/actuati 00 Medical on nasal Branch spray SYMBICORT Yes TAKE 2 Univer s 160-4.5 [...] TWICE A Medica l DAY Branch SYMBICORT 3- No TAKE 2 Unive rs 160-4.5 1-18 03-08 PUFFS BY ity of mcg/actuati 00:00: 00:00 MOUTH [place] on inhaler 00 :00 TWICE A Medica l DAY Branch SYMBICORT 0 3- No TAKE 2 Unive rs 160-4.5 1-18 03-08 PUFFS BY ity of mcg/actuati 00:00: 00:00 MOUTH [place] on inhaler 00 :00 TWICE A Medica l DAY Branch ESTRADIOL 1 2019-09- No [id number] TAKE 1 [facility] mg tablet 017 05-09 TABLET BY ity of 00:00: 00:00 MOUTH [place] 00 :00 EVERY DAY Medical Branch ESTRADIOL 1 2019-09- No [id number] TAKE 1 [facility] mg tablet 0-17 - TABLET BY ity of 00:00: 00:00 MOUTH [place] 00 :00 EVERY DAY Medical Branch zolpidem 2018-09 Yes [...] [place] 00 bedtime as Medical needed. [place] zolpide 2018-09 Yes 1{tbl} Take 1 Unive rs (AMBIEN) 5 1-01 tablet by ity of mg tablet 00:00: mouth at [place] 00 bedtime as Medical needed. [place] zolpide 2018-09 Yes 1{tbl} Take 1 Unive rs (AMBIEN) 5 1-01 tablet by [facility] mg tablet 00:00: mouth at [place] 00 bedtime as Medical needed. [place] zolpide 2018-09 Yes 1{tbl} Take 1 Unive rs (AMBIEN) 5 1-01 tablet by [facility] mg tablet 00:00: mouth at [place] 00 bedtime as Medical needed. [place] zolpide 2018-09 Yes 1{tbl} Take 1 Unive rs (AMBIEN) 5 1-01 tablet by [facility]y [facility] mg tablet 00:00: mouth at [place] 00 bedtime as Medical needed. [place] zolpide 2018-09 Yes 1{tbl} Take 1 Unive rs (AMBIEN) 5 1-01 tablet by [facility] mg tablet 00:00: mouth [place] 00 bedtime as Medical needed. [place] [facility] Yes 1{tbl} Take 1 Unive rs (AMBIEN) 5 1-01 tablet by ity of mg tablet 00:00: [place] [facility] needed. [place] zolpide 2018-09 Yes 1{tbl} Take 1 [facility] (AMBIEN) 5 1-01 tablet by [facility] mg tablet [place] Medical needed. [place] zolpide 2018-09 Yes 1{tbl} Take 1 [facility] (AMBIEN) 5 1-01 tablet by [facility] tablet [place] bed[place] as Medical needed. [place] zolpide 2018-09 Yes 1{tbl} Take 1 [facility] (AMBIEN) 5 1-01 tablet by [facility] tablet [place] bed[place] as Medical needed. [place] zolpide 2018-09 Yes 1{tbl} Take 1 [facility] (AMBIEN) 5 1-01 tablet by [facility] [place] bed[place] as Medical needed. [place] zolpide 2018-09 Yes 1{tbl} Take 1 [facility] (AMBIEN) 5 1-01 tablet by [facility] [place] bed[place] as Medical needed. [place] zolpide 2018-09 Yes 1{tbl} Take 1 [facility] (AMBIEN) 5 1-01 tablet by [facility] tablet [place] bed[place] as Medical needed. [place] zolpide 2018-09 Yes 1{tbl} Take 1 [facility] (AMBIEN) 5 1-01 tablet by [facility] tablet [place] bed[place] as Medical needed. [place] zolpide 2018-09 Yes 1{tbl} Take 1 [facility] (AMBIEN) 5 1-01 tablet by [facility] mg tablet [place] bed[place] as Medical needed. [place] zolpide 2018-09 Yes 1{tbl} Take 1 [facility] (AMBIEN) 5 1-01 tablet by [facility] mg tablet [place] as [facility] needed. [place] [facility]{tbl} Take 1 [facility] (AMBIEN) 5 1-01 tablet by [facility] mg tablet [place]: [place] bed[place] as Medical needed. [place] zolpide 2018-09 Yes 1{tbl} Take 1 [facility] (AMBIEN) 5 1-01 tablet by [facility] mg tablet [place]: [place] bed[place] as Medical needed. [place] zolpide 2018-09 Yes 1{tbl} Take 1 [facility] (AMBIEN) 5 1-01 tablet by [facility] mg tablet [place]: [place] bed[place] as Medical needed. [place] zolpide 2018-09 Yes 1{tbl} Take 1 [facility] (AMBIEN) 5 1-01 tablet by [facility] mg tablet [place]: [place] bed[place] as Medical needed. [place] zolpide 2018-09 Yes 1{tbl} Take 1 [facility] (AMBIEN) 5 1-01 tablet by [facility] mg tablet [place]: [place] bed[place] as Medical needed. [place] zolpidem 2018-09 Yes 1{tbl} Take 1 [facility] (AMBIEN) 5 1-01 tablet by [facility] tablet [place]: [place] bed[place] as Medical needed. [place] zolpidem 2018-09 Yes 1{tbl} Take 1 [facility] (AMBIEN) 5 1-01 tablet by [facility] mg tablet [place]: [place] bed[place] as Medical needed. [place] zolpidem 2018-09 Yes 1{tbl} Take 1 [facility] (AMBIEN) 5 1-01 tablet by [facility] mg tablet [place]: [place] bed[place] as Medical needed. [place] zolpidem 2018-09 Yes 1{tbl} Take 1 [facility] (AMBIEN) 5 1-01 tablet by [facility] mg tablet [place]: [place] bed[place] as Medical needed. [place] zolpidem 2018-09 Yes 1{tbl} Take 1 [facility] (AMBIEN) 5 1-01 tablet by [facility] mg tablet [place]: [place] bed[place] as Medical needed. [place] zolpidem 2018-09 Yes 1{tbl} Take 1 [facility] (AMBIEN) 5 1-01 tablet by [facility] tablet [place]: [place] bed[place] as Medical needed. [place] zolpidem 2018-09 Yes 1{tbl} Take 1 [facility] (AMBIEN) 5 1-01 tablet by [facility] tablet [place]: [place] bed[place] as Medical needed. [place] levothyroxi 2018-09 Yes 25ug Take 25 Met [...] 00:00: daily. [facility] estradiol 2019- Yes 1mg QD Take 1 mg [facility] (ESTRACE) 1 9-[address] [facility] tablet 00:00: daily. [facility] estradiol 2019-0 Yes 1mg QD Take 1 mg [facility] (ESTRACE) 1 9-[address] MG tablet 00:00: daily. [facility] 00 [facility] estradiol 2019- Yes 1mg QD Take 1 mg [facility] (ESTRACE) 1 9-[address] MG tablet 00:00: daily. [facility] 00 l estradiol 2019- Yes 1mg QD Take 1 mg Met [...] (six) hours as needed for Wheezing. estradiol 2018-0 Yes 1mg QD Take [address] [facility] (ESTRACE) 1 6-07 by [facility] MG tablet 09:56: daily. Medica l 34 [place] levothyroxi 2019-0 Yes 25ug Take [address] [facility] ne 6-07 [facility]cg [facility] (SYNTHROID, 09:56: mouth Medic al LEVOTHROID) 34 Every Center 25 MCG morning on tablet an empty stomach. cetirizine 2018-0 Yes 10mg QD Take [address] [facility] (ZYRTEC) 10 6-07 by [facility] MG tablet 09:56: daily. [facility] l 34 [place] lisinopril 2018-0 Yes 10mg QD Take [address] (PRINIVIL,Z 6-07 by mouth [facility] ESTRIL) 10 09:56: daily. Medic al MG tablet 34 Center linaclotide 2018-0 Yes 290ug QD Take 290 [facility] [...] Center immediatel y before bedtime . hydrOXYzine 2018-0 Yes 100mg QD Take [address] (ATARAX) 50 6-07 mg by [facility] tablet 09:56: mouth Medical 34 nightly. Center albuterol Yes 1{puff} Inhale [address] HFA 6-07 puff by [facility] (VENTOLIN 09:56: mouth via Med ical HFA) 90 34 inhaler Center mcg/actuati every 6 on inhaler (six) hours as needed for Wheezing. estradiol Yes 1mg QD Take [address] [facility] (ESTRACE) 1 6-07 by [facility] MG tablet 09:56: daily. Medica l 34 [place] levothyroxi 0 Yes 25ug Take [address] [facility] ne 6-07 mcg [facility] (SYNTHROID, 09:56: mouth Medic al LEVOTHROID) 34 Every Center 25 MCG morning on tablet an empty stomach. cetirizine Yes 10mg QD Take [address] (ZYRTEC) 10 6-07 by [facility] MG tablet 09:56: daily. Medica l 34 [place] lisinopril Yes 10mg QD Take [address] (PRINIVIL,Z 6-07 by [facility] ESTRIL) 10 09:56: daily. Medic al MG tablet 34 [place] linaclotide Yes 290ug QD Take [address] (LINZESS) 6-07 [facility]cg [facility] 290 mcg Cap 09:56: mouth Medic al 34 daily. [place] pantoprazol 0 Yes 40mg Q.5D Take 40 [...] MG tablet 09:56: mouth Medical 34 nightly. [place] albuterol 0 Yes 1{puff} Inhale [address] [...] morning on tablet an empty stomach. cetirizine 2019-0 Yes 10mg QD Take [address] (ZYRTEC) 10 6-07 by [facility] MG tablet 09:56: daily. Medica l 34 [place] lisinopril 2019-0 Yes 10mg QD Take [address] (PRINIVIL,Z 6-07 by [facility] ESTRIL) 10 09:56: daily. Medic al MG tablet 34 Center linaclotide 2018-0 Yes 290ug QD Take 290 [facility] [...] Center immediatel y before bedtime . hydrOXYzine 2018-0 Yes 100mg QD Take 100 [facility] [...] MG tablet 09:56: daily. Medica l 34 [place] levothyroxi 2019-0 Yes 25ug Take [address] [facility] ne 6-07 mcg [facility] (SYNTHROID, 09:56: mouth Medic al LEVOTHROID) 34 Every Center 25 MCG morning on tablet an empty stomach. estradiol 2019-0 Yes 1mg QD Take [address] [facility] (ESTRACE) 1 6-07 by mouth [facility] MG tablet 09:56: daily. Medica l 34 [place] levothyroxi 2019-0 Yes 25ug Take [address] [facility] [address] ne 6-07 mcg [facility] (SYNTHROID, 09:56: mouth Medic al LEVOTHROID) 34 Every Center 25 MCG morning on tablet an empty stomach. cetirizine 2019-0 Yes 10mg QD Take [address] (ZYRTEC) 10 6-07 by [facility] MG tablet 09:56: daily. [facility]ica l 34 [place] lisinopril 2019-0 Yes 10mg QD Take [address] (PRINIVIL,Z 6-07 by mouth [facility] ESTRIL) 10 09:56: daily. Medic al MG tablet 34 [place] linaclotide 2018-0 Yes 290ug QD Take [address] (LINZESS) 6-07 [facility]cg [facility] 290 mcg Cap 09:56: mouth Medic al 34 daily. [place] pantoprazol 2018-0 Yes 40mg Q.5D Take 40 [...] MG tablet 09:56: mouth Medical 34 nightly. [place] albuterol 2019-0 Yes 1{puff} Inhale [address] HFA 6-07 puff by [facility] (VENTOLIN 09:56: mouth via Med ical HFA) 90 34 inhaler Center mcg/actuati every 6 on inhaler (six) hours as needed for Wheezing. cetirizine 2019-0 Yes 10mg QD Take [address] (ZYRTEC) 10 6-07 by [facility] MG tablet 09:56: daily. Medica l 34 [place] lisinopril 2019-0 Yes 10mg QD Take [address] (PRINIVIL,Z 6-07 by [facility] ESTRIL) 10 09:56: daily. Medic al MG tablet 34 Center linaclotide 2018-0 Yes 290ug QD Take 290 [facility] [...] 09:56: mouth Medical 34 nightly. Center albuterol 0 Yes 1{puff} Inhale [address] HFA 6-07 [facility] (VENTOLIN 09:56: mouth via Med ical HFA) 90 34 inhaler Center mcg/actuati every 6 on inhaler (six) hours as needed for Wheezing. lisinopril Yes 10mg 10 mg. [facility] (PRINIVIL[facility] 20 mg [facility]: [facility] tablet [facility] l lisinopril 2018-0 Yes 10mg 10 mg. [facility] (PRINIVIL) [facility]-10 [facility] 20 mg 00:00: [facility] tablet 00 l lisinopril 2018-0 Yes 10mg 10 mg. [facility] (PRINIVIL) [facility] 20 mg 00:00: [facility] tablet 00 l lisinopril 2018-0 Yes 10mg 10 mg. [facility] (PRINIVIL) [facility] 20 mg 00:00: [facility] tablet 00 l lisinopril 2019- Yes 10mg 10 mg. [facility] (PRINIVIL) [facility] 20 mg 00:00: [facility]osp[facility] tablet 00 l lisinopril 2018- Yes 10mg 10 mg. [facility] (PRINIVIL) [...] inhaler 00 hours as Medic al needed. [place] PROAIR HFA Yes 1{puff} Inhale 1 [facility] [...] inhaler 00 hours as Medic al needed. [place] PROAIR HFA Yes 1{puff} Inhale 1 [facility] 90 4-04 Puff every [facility]y of mcg/actuati 00:00: 4 [place] inhaler 00 hours as Medic al needed. [facility] PROAIR HFA Yes 1{puff} Inhale 1 [facility] 90 4-04 Puff every [facility]y of mcg/actuati 00:00: 4 [place]four[place] inhal[place] 00 hours as Medic al needed. [place] acetaminoph acetaminoph No acetaminop [facility] en 300 en 300 hen 300 [facility] mg-codeine mg-codeine mg-codeine dic 30 mg 30 mg 30 mg [facility] tablet TAKE tablet TAKE tablet Medicin 1 TABLET BY 1 TABLET BY TAKE 1 e MOUTH FOUR MOUTH FOUR TABLET BY TIMES A DAY TIMES A DAY MOUTH FOUR NEEDED NEEDED TIMES A DAY NEEDED acetaminoph acetaminoph No acetaminop [facility] en 500 mg en 500 mg hen 500 mg [facility] tablet Take tablet Take tablet dic 2 tablet(s) 2 tablet(s) Take 2 [facility] EVERY 8 EVERY 8 tablet(s) Medi selma HOURS by HOURS by EVERY 8 e oral route. oral route. HOURS by oral route. amoxicillin amoxicillin No amoxicilli [facility] 500 mg 500 mg n 500 mg [facility] capsule capsule capsule dic TAKE 1 TAKE 1 TAKE 1 [facility] CAPSULE BY CAPSULE BY CAPSULE BY Medicin MOUTH THREE MOUTH THREE MOUTH e TIMES A DAY TIMES A DAY THREE TIMES A DAY cefdinir cefdinir No cefdinir Aza robbi 300 mg 300 mg 300 mg [facility] capsule capsule capsule dic TAKE 1 TAKE 1 TAKE 1 [facility] CAPSULE BY CAPSULE BY CAPSULE BY Medicin MOUTH EVERY MOUTH EVERY MOUTH e 12 HOURS 12 HOURS EVERY 12 FOR 7 DAYS. FOR 7 DAYS. HOURS FOR 7 DAYS. cefpodoxime cefpodoxime No cefpodoxim [facility] 200 mg 200 mg e 200 mg [facility] tablet TAKE tablet TAKE tablet dic 1 TABLET BY 1 TABLET BY TAKE 1 Sports MOUTH EVERY MOUTH EVERY TABLET BY Medicin 12 HOURS 12 HOURS MOUTH e FOR 7 DAYS FOR 7 DAYS EVERY 12 (TAKE WITH (TAKE WITH HOURS FOR FOOD) FOOD) 7 DAYS (TAKE WITH FOOD) cephalexin cephalexin No cephalexin [facility] 500 mg 500 mg 500 mg [facility] capsule capsule capsule dic TAKE 1 TAKE 1 TAKE 1 [facility] CAPSULE BY CAPSULE BY CAPSULE BY Medicin MOUTH IN MOUTH IN MOUTH IN e THE MORNING THE MORNING THE AND 1 AND 1 MORNING CAPSULE AT CAPSULE AT AND 1 NOON AND 1 NOON AND 1 CAPSULE AT CAPSULE IN CAPSULE IN NOON AND 1 THE EVENING THE EVENING CAPSULE IN FOR 5 DAYS FOR 5 DAYS THE EVENING FOR 5 DAYS chlorhexidi chlorhexidi No chlorhexid [facility] ne ne ine [facility] gluconate gluconate gluconate dic 0.12 % 0.12 % 0.12 % [facility] mouthwash mouthwash mouthwash Medicin PLEASE SEE PLEASE SEE PLEASE SEE e ATTACHED ATTACHED ATTACHED FOR FOR FOR DETAILED DETAILED DETAILED DIRECTIONS DIRECTIONS DIRECTIONS doxycycline doxycycline No doxycyclin [facility] hyclate 100 hyclate 100 e hyclate [facility] mg capsule mg capsule 100 mg d ic Take 1 Take 1 capsule [facility] capsule capsule Take 1 Medicin twice a day twice a day capsule e by oral by oral twice a route for 7 route for 7 day by days. days. oral route for 7 days. doxycycline doxycycline No doxycyclin [facility] hyclate 100 hyclate 100 e hyclate [facility] mg tablet mg tablet 100 mg dic tablet Sports Medicin e ergocalcife ergocalcife No ergocalcif [facility] rol rol lisa [facility] (vitamin (vitamin (vitamin dic D2) 1,250 D2) 1,250 D2) 1,250 [facility] mcg (50,000 mcg (50,000 mcg M edicin unit) unit) (50,000 e capsule capsule unit) capsule ferrous ferrous No ferrous [facility] gluconate gluconate gluconate [facility] 324 mg (38 324 mg (38 324 mg (38 dic mg iron) mg iron) mg iron) Spo rts tablet TAKE tablet TAKE tablet Medicin 1 TABLET BY 1 TABLET BY TAKE 1 e MOUTH EVERY MOUTH EVERY TABLET BY DAY DAY MOUTH EVERY DAY fluconazole fluconazole No fluconazol [facility] 150 mg 150 mg e 150 mg [facility] tablet tablet tablet dic Sports Medicin e fluticasone fluticasone No fluticason [facility] propionate propionate e [facility] 50 50 propionate dic mcg/actuati mcg/actuati 50 S ports on nasal on nasal mcg/actuat M edicin spray,suspe spray,suspe ion nasal e nsion USE 1 nsion USE 1 spray,susp SPRAY IN SPRAY IN ension USE EACH EACH 1 SPRAY IN NOSTRIL NOSTRIL EACH EVERY DAY EVERY DAY NOSTRIL EVERY DAY hydrocodone hydrocodone No hydrocodon [facility] 10 10 e 10 [facility] mg-acetamin mg-acetamin mg-acetami dic ophen 325 ophen 325 nophen 325 [facility] mg tablet mg tablet mg tablet Medicin TAKE 1 TAKE 1 TAKE 1 e TABLET BY TABLET BY TABLET BY MOUTH EVERY MOUTH EVERY MOUTH 4 HOURS 4 HOURS EVERY 4 NEEDED FOR NEEDED FOR HOURS PAIN PAIN NEEDED FOR PAIN ibuprofen ibuprofen No ibuprofen [facility] 800 mg 800 mg 800 mg [facility] tablet TAKE tablet TAKE tablet dic 1 TABLET BY 1 TABLET BY TAKE 1 Sports MOUTH EVERY MOUTH EVERY TABLET BY Medicin 6 HOURS 6 HOURS MOUTH e WITH FOOD WITH FOOD EVERY 6 HOURS WITH FOOD lactulose lactulose No lactulose [facility] 10 gram/15 10 gram/15 10 gram/15 [facility] mL oral mL oral mL oral dic solution solution solution Spo rts TAKE 15 ML TAKE 15 ML TAKE 15 ML Medicin BY MOUTH 2 BY MOUTH 2 BY MOUTH 2 e (TWO) TIMES (TWO) TIMES (TWO) DAILY DAILY TIMES NEEDED FOR NEEDED FOR DAILY CONSTIPATIO CONSTIPATIO NEEDED FOR N. N. CONSTIPATI ON. levothyroxi levothyroxi No levothyrox [facility] ne 25 mcg ne 25 mcg ine 25 mcg [facility] tablet TAKE tablet TAKE tablet dic 1 TABLET BY 1 TABLET BY TAKE 1 Sports MOUTH EVERY MOUTH EVERY TABLET BY Medicin DAY IN THE DAY IN THE MOUTH e MORNING MORNING EVERY DAY IN THE MORNING Linzess 290 Linzess 290 No Linzess [facility] mcg capsule mcg capsule 290 mcg [facility] TAKE 1 TAKE 1 capsule dic CAPSULE BY CAPSULE BY TAKE 1 S ports MOUTH EVERY MOUTH EVERY CAPSULE BY Medicin DAY DAY MOUTH e EVERY DAY lisinopril lisinopril No lisinopril [facility] 20 mg 20 mg 20 mg [facility] tablet TAKE tablet TAKE tablet dic 1 TABLET BY 1 TABLET BY TAKE 1 Sports MOUTH EVERY MOUTH EVERY TABLET BY Medicin DAY DAY MOUTH e EVERY DAY loratadine loratadine No loratadine [facility] 10 mg 10 mg 10 mg [facility] tablet TAKE tablet TAKE tablet dic 1 TABLET BY 1 TABLET BY TAKE 1 Sports MOUTH EVERY MOUTH EVERY TABLET BY Medicin DAY DAY MOUTH e EVERY DAY magnesium magnesium No magnesium [facility] oxide 400 oxide 400 oxide 400 [facility] mg (241.3 mg (241.3 mg (241.3 dic mg mg mg Sports magnesium) magnesium) magnesium) [facility] tablet TAKE tablet TAKE tablet e 1 TABLET BY 1 TABLET BY TAKE 1 MOUTH EVERY MOUTH EVERY TABLET BY DAY DAY MOUTH EVERY DAY methocarbam methocarbam No methocarba [facility] ol 500 mg ol 500 mg mol 500 mg [facility] tablet TAKE tablet TAKE tablet dic 1 TABLET BY 1 TABLET BY TAKE 1 Sports MOUTH FOUR MOUTH FOUR TABLET BY Medicin TIMES A DAY TIMES A DAY MOUTH FOUR e NEEDED NEEDED TIMES A FOR 30 DAYS FOR 30 DAYS DAY NEEDED FOR 30 DAYS nitrofurant nitrofurant No nitrofuran [facility] oin oin toin [facility] monohydrate monohydrate monohydrat dic /macrocryst /macrocryst e/macrocry [facility] als 100 mg als 100 mg stals 100 [facility] capsule capsule mg capsule e oxycodone 5 oxycodone 5 No oxycodone [facility] mg tablet mg tablet 5 mg [facility] pe Take 1 Take 1 tablet dic tablet(s) tablet(s) Take 1 Spo rts EVERY 6-8 EVERY 6-8 tablet(s) Medicin HOURS as HOURS as EVERY 6-8 e needed for needed for HOURS as severe pain severe pain needed for by oral by oral severe route route pain by oral route pantoprazol pantoprazol No pantoprazo [facility] e 40 mg e 40 mg le 40 mg [facility] pe tablet,favio tablet,favio tablet,del dic yed release yed release ayed S ports TAKE 1 TAKE 1 release Medicin TABLET BY TABLET BY TAKE 1 e MOUTH TWICE MOUTH TWICE TABLET BY A DAY A DAY MOUTH TWICE A DAY promethazin promethazin No promethazi [facility] e 25 mg e 25 mg ne 25 mg [facility] pe tablet TAKE tablet TAKE tablet dic 1 TABLET BY 1 TABLET BY TAKE 1 Sports MOUTH 2 MOUTH 2 TABLET BY Medi selma (TWO) TIMES (TWO) TIMES MOUTH 2 e DAILY DAILY (TWO) NEEDED FOR NEEDED FOR TIMES NAUSEA AND NAUSEA AND DAILY VOMITING VOMITING NEEDED FOR NAUSEA AND VOMITING sertraline sertraline No sertraline [facility] 100 mg 100 mg 100 mg [facility] tablet TAKE tablet TAKE tablet dic 1 TABLET BY 1 TABLET BY TAKE 1 Sports MOUTH EVERY MOUTH EVERY TABLET BY Medicin DAY DAY MOUTH e EVERY DAY Symbicort Symbicort No Symbicort [facility] 160 mcg-4.5 160 mcg-4.5 160 [facility] mcg/actuati mcg/actuati mcg-4.5 dic on HFA on HFA mcg/actuat Sport s aerosol aerosol ion HFA Medici n inhaler inhaler aerosol e INHALE 2 INHALE 2 inhaler PUFFS BY PUFFS BY INHALE 2 MOUTH 2 MOUTH 2 PUFFS BY TIMES A DAY TIMES A DAY MOUTH 2 30 DAYS 30 DAYS TIMES A DAY 30 DAYS topiramate topiramate No topiramate [facility] 25 mg 25 mg 25 mg [facility] tablet TAKE tablet TAKE tablet dic 1 TABLET BY 1 TABLET BY TAKE 1 Sports MOUTH IN MOUTH IN TABLET BY Me dicin THE MORNING THE MORNING MOUTH IN e AND IN THE AND IN THE THE EVENING EVENING MORNING AND IN THE EVENING topiramate topiramate No topiramate [facility] 50 mg 50 mg 50 mg [facility] tablet TAKE tablet TAKE tablet dic 1 TABLET BY 1 TABLET BY TAKE 1 Sports MOUTH TWICE MOUTH TWICE TABLET BY Medicin A DAY A DAY MOUTH e TWICE A DAY tramadol 50 tramadol 50 No tramadol [facility] mg tablet mg tablet 50 mg Orth ope Take 1 Take 1 tablet dic tablet tablet Take 1 Sports every 6 every 6 tablet Medicin hours by hours by every 6 e oral route oral route hours by as needed as needed oral route for 7 days. for 7 days. as needed for 7 days. triazolam triazolam No triazolam [facility] 0.25 mg 0.25 mg 0.25 mg [facility] e tablet tablet tablet dic BRING BRING BRING Sports MEDICATION MEDICATION MEDICATION Medicin WITH YOU TO WITH YOU TO WITH YOU e DENTAL DENTAL TO DENTAL OFFICE FOR OFFICE FOR OFFICE FOR YOUR YOUR YOUR APPOINTMENT APPOINTMENT APPOINTMEN Swapna Garland No Gill Aza robbi HFA 90 HFA 90 HFA 90 [facility] mcg/actuati mcg/actuati mcg/actuat dic on aerosol on aerosol ion Spo rts inhaler inhaler aerosol Medici n INHALE TWO INHALE TWO inhaler e (2) PUFF(S) (2) PUFF(S) INHALE TWO FOUR TIMES FOUR TIMES (2) A DAY A DAY PUFF(S) NEEDED. NEEDED. FOUR TIMES A DAY NEEDED. Xarelto 10 Xarelto 10 No Xarelto 10 [facility] mg tablet mg tablet mg tablet [facility] TAKE 1 TAKE 1 TAKE 1 dic TABLET BY TABLET BY TABLET BY Sports MOUTH EVERY MOUTH EVERY MOUTH Medicin DAY DAY EVERY DAY e zolpidem 5 zolpidem 5 No zolpidem 5 [facility] mg tablet mg tablet mg tablet [facility] TAKE ONE TAKE ONE TAKE ONE dic (1) (1) (1) Sports TABLET(S) TABLET(S) TABLET(S) Medicin BY MOUTH BY MOUTH BY MOUTH e DAILY AT DAILY AT DAILY AT BEDTIME. BEDTIME. BEDTIME. Immunizations Ordered Filled Immunization Date Status Comments [facility] e Immunization Name Name Pneumococcal 2022-10-02 Completed [facility] of Conjugate, PCV20 00:00:00 [facility] dical (Prevnar 20) Branch Pneumococcal 20 2022-10-02 Completed Universit y of Conjugate, PCV20 00:00:00 [facility] dical (Prevnar 20) Branch Pneumococcal 20 2022-10-02 Completed Universit y of Conjugate, PCV20 00:00:00 [facility] dical (Prevnar 20) Branch Pneumococcal 20 2022-10-02 Completed Universit y of Conjugate, PCV20 00:00:00 [facility] dical (Prevnar 20) Branch Pneumococcal 20 2022-10-02 Completed Universit y of Conjugate, PCV20 00:00:00 [facility] dical (Prevnar 20) Branch Pneumococcal 20 2022-10-02 Completed Universit y of Conjugate, PCV20 00:00:00 [facility] dical (Prevnar 20) Branch Pneumococcal 20 2022-10-02 Completed Universit y of Conjugate, PCV20 00:00:00 [place] [facility] (Prevnar 20) Branch Pneumococcal 20 2022-10-02 Completed Universit y of Conjugate, PCV20 00:00:00 [place] [facility] (Prevnar 20) Branch Pneumococcal 20 2022-10-02 Completed Universit y of Conjugate, PCV20 00:00:00 [place] [facility] (Prevnar 20) Branch Pneumococcal 20 2022-10-02 Completed Universit y of Conjugate, PCV20 00:00:00 [place] [facility] (Prevnar 20) Branch Pneumococcal 20 2022-10-02 Completed Universit y of Conjugate, PCV20 00:00:00 [place] [facility] (Prevnar 20) Branch Pneumococcal 20 2022-10-02 Completed [facility]it y of Conjugate, PCV20 00:00:00 [place] [facility] (Prevnar 20) Branch Pneumococcal 20 2022-10-02 Completed [facility]it y of Conjugate, PCV20 00:00:00 [place] [facility] (Prevnar 20) Branch Pneumococcal 20 2022-10-02 Completed [facility]it y of Conjugate, PCV20 00:00:00 [place] [facility] (Prevnar 20) Branch Pneumococcal 20 2022-10-02 Completed Universit y of Conjugate, PCV20 00:00:00 [place] [facility] (Prevnar 20) Branch Pneumococcal 20 2022-10-02 Completed [facility]it y of Conjugate, PCV20 00:00:00 [place] [facility] (Prevnar 20) Branch Pneumococcal 20 2022-10-02 Completed Universit y of Conjugate, PCV20 00:00:00 [place] [facility] (Prevnar 20) Branch Pneumococcal 20 2022-10-02 Completed [facility]it y of Conjugate, PCV20 00:00:00 [place] [facility] (Prevnar 20) Branch Pneumococcal 20 2022-10-02 Completed Universit y of Conjugate, PCV20 00:00:00 [place] [facility] (Prevnar 20) Branch Pneumococcal 20 2022-10-02 Completed [facility]it y of Conjugate, PCV20 00:00:00 [place] [facility] (Prevnar 20) Branch Pneumococcal 20 2022-10-02 Completed Universit y of Conjugate, PCV20 00:00:00 [place] [facility] (Prevnar 20) Branch Pneumococcal 20 2022-10-02 Completed [facility] y of Conjugate, PCV20 00:00:00 [place] [facility] (Prevnar 20) [facility] Pneumococcal 20 2022-10-02 Completed Universit y of Conjugate, PCV20 00:00:00 [facility] dical (Prevnar 20) Branch Pneumococcal 20 2022-10-02 Completed Universit y of Conjugate, PCV20 00:00:00 [facility] dical (Prevnar 20) Branch Pneumococcal 20 2022-10-02 Completed Universit y of Conjugate, PCV20 00:00:00 [facility] dical (Prevnar 20) Branch Influenza Virus 2022-07-09 Completed Universit y of Vaccine Recomb Quad 00:00:00 [place] [facility] IM, Preserv and ABX Branc h Free 18-64 YRS Influenza Virus 2022-07-09 Completed Universit y of Vaccine Recomb Quad 00:00:00 [place] [facility] IM, Preserv and ABX Branc h Free 18-64 YRS Influenza Virus 2022-07-09 Completed Universit y of Vaccine Recomb Quad 00:00:00 [place] [facility] IM, Preserv and ABX Branc h Free 18-64 YRS Influenza Virus 2022-07-09 Completed Universit y of Vaccine Recomb Quad 00:00:00 [place] [facility] IM, Preserv and ABX Branc h Free 18-64 YRS Influenza Virus 2022-07-09 Completed Universit y of Vaccine Recomb Quad 00:00:00 [place] [facility] IM, Preserv and ABX Branc h Free 18-64 YRS Influenza Virus 2022-07-09 Completed Universit y of Vaccine Recomb Quad 00:00:00 [place] [facility] IM, Preserv and ABX Branc h Free 18-64 YRS Influenza Virus 2022-07-09 Completed Universit y of Vaccine Recomb Quad 00:00:00 [place] [facility] IM, Preserv and ABX Branc h Free 18-64 YRS Influenza Virus 2022-07-09 Completed Universit y of Vaccine Recomb Quad 00:00:00 [place] [facility] IM, Preserv and ABX Branc h Free 18-64 YRS Influenza Virus 2022-07-09 Completed Universit y of Vaccine Recomb Quad 00:00:00 [place] [facility] IM, Preserv and ABX Branc h Free 18-64 YRS Influenza Virus 2022-07-09 Completed Universit y of Vaccine Recomb Quad 00:00:00 [place] [facility] IM, Preserv and ABX Branc h Free 18-64 YRS Influenza Virus 2022-07-09 Completed Universit y of Vaccine Recomb Quad 00:00:00 [place] [facility] IM, Preserv and ABX Branc h Free 18-64 YRS Influenza Virus 2022-07-09 Completed Universit y of Vaccine Recomb Quad 00:00:00 [place] [facility] IM, Preserv and ABX Branc h Free 18-64 YRS Influenza Virus 2022-07-09 Completed Universit y of Vaccine Recomb Quad 00:00:00 [place] [facility] IM, Preserv and ABX Branc h Free 18-64 YRS Influenza Virus 2022-07-09 Completed [facility]it y of Vaccine Recomb Quad 00:00:00 [place] [facility] IM, Preserv and ABX Branc h Free 18-64 YRS Influenza Virus 2022-07-09 Completed Universit y of Vaccine Recomb Quad 00:00:00 [place] [facility] IM, Preserv and ABX Branc h Free 18-64 YRS Influenza Virus 2022-07-09 Completed [facility] y of Vaccine Recomb Quad 00:00:00 [place] [facility] IM, Preserv and ABX Branc h Free 18-64 YRS Influenza Virus 2022-07-09 Completed [facility] y of Vaccine Recomb Quad 00:00:00 [place] [facility] IM, Preserv and ABX Branc h Free 18-64 YRS Influenza Virus 2022-07-09 Completed [facility]it y of Vaccine Recomb Quad 00:00:00 [place] [facility] IM, Preserv and ABX Branc h Free 18-64 YRS Influenza Virus 2022-07-09 Completed [facility] y of Vaccine Recomb Quad 00:00:00 [place] [facility] IM, Preserv and ABX Branc h Free 18-64 YRS Influenza Virus 2022-07-09 Completed [facility] 00:00:00 [facility] IM, Preserv and ABX Branc h Free 18-64 YRS Influenza Virus 2022-07-09 Completed [facility] Vaccine [facility]comb [facility] 00:00:00 [facility] IM, Preserv and ABX Branc h Free 18-64 YRS Influenza Virus 2022-07-09 Completed [facility] Vaccine Recomb Quad 00:00:00 [facility] IM, Preserv and ABX Branc h Free 18-64 YRS Influenza Virus 2022-07-09 Completed [facility] Vaccine Recomb Quad 00:00:00 [facility] IM, Preserv and ABX Branc h Free 18-64 YRS Influenza Virus 2022-07-09 Completed [facility] Vaccine Recomb Quad 00:00:00 [facility] IM, Preserv and ABX Branc h Free 18-64 YRS Influenza Virus 2022-07-09 Completed [facility] Vaccine Recomb Quad 00:00:00 [facility] IM, Preserv and ABX Branc h Free 18-64 YRS SARS-COV-2 COVID-19 2021-09-17 Completed [facility] of PFIZER VACCINE 00:00:00 [facility] Influenza Virus 2021-09-17 Completed [facility] Vaccine 00:00:00 [facility] SARS-COV-2 COVID-19 2021-09-17 Completed [facility] of PFIZER VACCINE 00:00:00 [facility] Influenza Virus 2021-09-17 Completed [facility] Vaccine 00:00:00 [facility] SARS-COV-2 COVID-19 2021-09-17 Completed [facility] of PFIZER VACCINE 00:00:00 [facility] Influenza Virus 2021-09-17 Completed [facility] Vaccine 00:00:00 [facility] SARS-COV-2 COVID-19 2021-09-17 Completed [facility] of PFIZER VACCINE 00:00:00 [facility] Influenza Virus 2021-09-17 Completed [facility] Vaccine 00:00:00 [facility] SARS-COV-2 COVID-19 2021-09-17 Completed [facility] of PFIZER VACCINE 00:00:00 [facility] Influenza Virus 2021-09-17 Completed [facility] Vaccine 00:00:00 [facility] SARS-COV-2 COVID-19 2021-09-17 Completed [facility] of PFIZER VACCINE 00:00:00 [facility] Influenza Virus 2021-09-17 Completed [facility] Vaccine 00:00:00 [facility] SARS-COV-2 COVID-19 2021-09-17 Completed [facility] of PFIZER VACCINE 00:00:00 [facility] Influenza Virus 2021-09-17 Completed [facility] Vaccine 00:00:00 [facility] SARS-COV-2 COVID-19 2021-09-17 Completed [facility] of PFIZER VACCINE 00:00:00 [facility] Influenza Virus 2021-09-17 Completed [facility] Vaccine 00:00:00 [facility] SARS-COV-2 COVID-19 2021-09-17 Completed [facility] of PFIZER VACCINE 00:00:00 [facility] Influenza Virus 2021-09-17 Completed [facility] Vaccine 00:00:00 [facility] SARS-COV-2 COVID-19 2021-09-17 Completed [facility] of PFIZER VACCINE 00:00:00 [facility] Influenza Virus 2021-09-17 Completed [facility] Vaccine 00:00:00 [facility] SARS-COV-2 COVID-19 2021-09-17 Completed [facility] of PFIZER VACCINE 00:00:00 [facility] Influenza Virus 2021-09-17 Completed [facility] Vaccine 00:00:00 [facility] SARS-COV-2 COVID-19 2021-09-17 Completed [facility] of PFIZER VACCINE 00:00:00 [facility] Influenza Virus 2021-09-17 Completed [facility] Vaccine 00:00:00 [facility] SARS-COV-2 COVID-19 2021-09-17 Completed [facility] of PFIZER VACCINE 00:00:00 [facility] Influenza Virus 2021-09-17 Completed [facility] Vaccine 00:00:00 [facility] SARS-COV-2 COVID-19 2021-09-17 Completed [facility] of PFIZER VACCINE 00:00:00 [facility] Influenza Virus 2021-09-17 Completed [facility] Vaccine 00:00:00 [facility] SARS-COV-2 COVID-19 2021-09-17 Completed [facility] of PFIZER VACCINE 00:00:00 [facility] Influenza Virus 2021-09-17 Completed [facility] Vaccine 00:00:00 [facility] SARS-COV-2 COVID-19 2021-09-17 Completed [facility] of PFIZER VACCINE 00:00:00 [facility] Influenza Virus 2021-09-17 Completed [facility] Vaccine 00:00:00 [facility] SARS-COV-2 COVID-19 2021-09-17 Completed [facility] of PFIZER VACCINE 00:00:00 [facility] Influenza Virus 2021-09-17 Completed [facility] Vaccine 00:00:00 [facility] SARS-COV-2 COVID-19 2021-09-17 Completed [facility] of PFIZER VACCINE 00:00:00 [facility] Influenza Virus 2021-09-17 Completed [facility] Vaccine 00:00:00 [facility] SARS-COV-2 COVID-19 2021-09-17 Completed [facility] of PFIZER VACCINE 00:00:00 [facility] Influenza Virus 2021-09-17 Completed [facility] Vaccine 00:00:00 [facility] SARS-COV-2 COVID-19 2021-09-17 Completed [facility] of PFIZER VACCINE 00:00:00 [facility] Influenza Virus 2021-09-17 Completed [facility] Vaccine 00:00:00 [facility] SARS-COV-2 COVID-19 2021-09-17 Completed [facility] of PFIZER VACCINE 00:00:00 [facility] Influenza Virus 2021-09-17 Completed [facility] Vaccine 00:00:00 [facility] SARS-COV-2 COVID-19 2021-09-17 Completed [facility] of PFIZER VACCINE 00:00:00 [facility] Influenza Virus 2021-09-17 Completed [facility] Vaccine 00:00:00 [facility] SARS-COV-2 COVID-19 2021-09-17 Completed [facility] of PFIZER VACCINE 00:00:00 [facility] Influenza Virus 2021-09-17 Completed [facility] Vaccine 00:00:00 [facility] SARS-COV-2 COVID-19 2021-09-17 Completed [facility] of PFIZER VACCINE 00:00:00 [facility] Influenza Virus 2021-09-17 Completed [facility] Vaccine 00:00:00 [facility] SARS-COV-2 COVID-19 2021-09-17 Completed [facility] of PFIZER VACCINE 00:00:00 [facility] Influenza Virus 2021-09-17 Completed [facility] Vaccine 00:00:00 [facility] SARS-COV-2 COVID-19 2021-09-17 Completed [facility] of PFIZER VACCINE 00:00:00 [facility] Influenza Virus 2021-09-17 Completed [facility] Vaccine 00:00:00 [facility] SARS-COV-2 COVID-19 2021-09-17 Completed [facility] of PFIZER VACCINE 00:00:00 [facility] Influenza Virus 2021-09-17 Completed [facility] Vaccine 00:00:00 [facility] SARS-COV-2 COVID-19 2021-09-17 Completed [facility] of PFIZER VACCINE 00:00:00 [facility] Influenza Virus 2021-09-17 Completed [facility] Vaccine 00:00:00 [facility] SARS-COV-2 COVID-19 2021-09-17 Completed [facility] of PFIZER VACCINE 00:00:00 [facility] Influenza Virus 2021-09-17 Completed [facility] Vaccine 00:00:00 [facility] SARS-COV-2 COVID-19 2021-09-17 Completed [facility] of PFIZER VACCINE 00:00:00 [facility] Influenza Virus 2021-09-17 Completed [facility] Vaccine 00:00:00 [facility] SARS-COV-2 COVID-19 2021-09-17 Completed [facility] of PFIZER VACCINE 00:00:00 [facility] Influenza Virus 2021-09-17 Completed [facility] Vaccine 00:00:00 [facility] SARS-COV-2 COVID-19 2021-09-17 Completed [facility] of PFIZER VACCINE 00:00:00 [facility] Influenza Virus 2021-09-17 Completed [facility] Vaccine 00:00:00 [facility] SARS-COV-2 COVID-19 2021-09-17 Completed [facility] of PFIZER VACCINE 00:00:00 [facility] Influenza Virus 2021-09-17 Completed [facility] Vaccine 00:00:00 [facility] SARS-COV-2 COVID-19 2021-09-17 Completed [facility] of PFIZER VACCINE 00:00:00 [facility] Influenza Virus 2021-09-17 Completed [facility] Vaccine 00:00:00 [facility] SARS-COV-2 COVID-19 2021-09-17 Completed [facility] of PFIZER VACCINE 00:00:00 [facility] Influenza Virus 2021-09-17 Completed [facility] Vaccine 00:00:00 [facility] SARS-COV-2 COVID-19 2021-01-16 Completed [facility] of CHELSEA/J&J VACCINE 00:00:00 [facility] SARS-COV-2 COVID-19 2021-01-16 Completed [facility] of CHELSEA/J&J VACCINE 00:00:00 [facility] SARS-COV-2 COVID-19 2021-01-16 Completed [facility] of CHELSEA/J&J VACCINE 00:00:00 [facility] SARS-COV-2 COVID-19 2021-01-16 Completed [facility] of CHELSEA/J&J VACCINE 00:00:00 [facility] SARS-COV-2 COVID-19 2021-01-16 Completed [facility] of CHELSEA/J&J VACCINE 00:00:00 [facility] SARS-COV-2 COVID-19 2021-01-16 Completed [facility] of CHELSEA/J&J VACCINE 00:00:00 [facility] SARS-COV-2 COVID-19 2021-01-16 Completed [facility] of CHELSEA/J&J VACCINE 00:00:00 [facility] SARS-COV-2 COVID-19 2021-01-16 Completed [facility] of CHELSEA/J&J VACCINE 00:00:00 [facility] SARS-COV-2 COVID-19 2021-01-16 Completed [facility] of CHELSEA/J&J VACCINE 00:00:00 [facility] SARS-COV-2 COVID-19 2021-01-16 Completed [facility] of CHELSEA/J&J VACCINE 00:00:00 [facility] SARS-COV-2 COVID-19 2021-01-16 Completed [facility] of CHELSEA/J&J VACCINE 00:00:00 [facility] SARS-COV-2 COVID-19 2021-01-16 Completed [facility] of CHELSEA/J&J VACCINE 00:00:00 [facility] SARS-COV-2 COVID-19 2021-01-16 Completed [facility] of CHELSEA/J&J VACCINE 00:00:00 [facility] SARS-COV-2 COVID-19 2021-01-16 Completed [facility] of CHELSEA/J&J VACCINE 00:00:00 [facility] SARS-COV-2 COVID-19 2021-01-16 Completed [facility] of CHELSEA/J&J VACCINE 00:00:00 [facility] SARS-COV-2 COVID-19 2021-01-16 Completed [facility] of CHELSEA/J&J VACCINE 00:00:00 [facility] SARS-COV-2 COVID-19 2021-01-16 Completed [facility] of CHELSEA/J&J VACCINE 00:00:00 [facility] SARS-COV-2 COVID-19 2021-01-16 Completed [facility] of CHELSEA/J&J VACCINE 00:00:00 [facility] SARS-COV-2 COVID-19 2021-01-16 Completed [facility] of CHELSEA/J&J VACCINE 00:00:00 [facility] SARS-COV-2 COVID-19 2021-01-16 Completed [facility] of CHELSEA/J&J VACCINE 00:00:00 [facility] SARS-COV-2 COVID-19 2021-01-16 Completed [facility] of CHELSEA/J&J VACCINE 00:00:00 [facility] SARS-COV-2 COVID-19 2021-01-16 Completed [facility] of CHELSEA/J&J VACCINE 00:00:00 [facility] SARS-COV-2 COVID-19 2021-01-16 Completed [facility] of CHELSEA/J&J VACCINE 00:00:00 [facility] SARS-COV-2 COVID-19 2021-01-16 Completed [facility] of CHELSEA/J&J VACCINE 00:00:00 [facility] SARS-COV-2 COVID-19 2021-01-16 Completed [facility] of CHELSEA/J&J VACCINE 00:00:00 [facility] SARS-COV-2 COVID-19 2021-01-16 Completed [facility] of CHELSEA/J&J VACCINE 00:00:00 [facility] SARS-COV-2 COVID-19 2021-01-16 Completed [facility] of CHELSEA/J&J VACCINE 00:00:00 [facility] SARS-COV-2 COVID-19 2021-01-16 Completed [facility] of CHELSEA/J&J VACCINE 00:00:00 [facility] SARS-COV-2 COVID-19 2021-01-16 Completed [facility] of CHELSEA/J&J VACCINE 00:00:00 [facility] SARS-COV-2 COVID-19 2021-01-16 Completed [facility] of CHELSEA/J&J VACCINE 00:00:00 [facility] SARS-COV-2 COVID-19 2021-01-16 Completed [facility] of CHELSEA/J&J VACCINE 00:00:00 [facility] SARS-COV-2 COVID-19 2021-01-16 Completed [facility] of CHELSEA/J&J VACCINE 00:00:00 [facility] SARS-COV-2 COVID-19 2021-01-16 Completed [facility] of CHELSEA/J&J VACCINE 00:00:00 [facility] SARS-COV-2 COVID-19 2021-01-16 Completed [facility] of CHELSEA/J&J VACCINE 00:00:00 [facility] SARS-COV-2 COVID-19 2021-01-16 Completed [facility] of CHELSEA/J&J VACCINE 00:00:00 [facility] Influenza Virus 2020-07-13 Completed [facility] Vaccine Recomb Quad 00:00:00 [facility] IM, Preserv and ABX Branc h [...] 2019-06-30 Completed [facility] Vaccine 00:00:00 [facility] Influenza Virus 2019-06-30 Completed [facility] Vaccine 00:00:00 [facility] Influenza Virus 2019-06-30 Completed [facility] Vaccine 00:00:00 [facility] Influenza Virus 2019-06-30 Completed [facility] Vaccine 00:00:00 [facility] Influenza Virus 2019-06-30 Completed [facility] Vaccine 00:00:00 [facility] Influenza Virus 2019-06-30 Completed [facility] Vaccine 00:00:00 [facility] Influenza Virus 2019-06-30 Completed [facility] Vaccine 00:00:00 [facility] Influenza Virus 2019-06-30 Completed [facility] Vaccine 00:00:00 [facility] Influenza Virus 2019-06-30 Completed [facility] Vaccine 00:00:00 [facility] Influenza Virus 2019-06-30 Completed [facility] Vaccine 00:00:00 [facility] Influenza Virus 2019-06-30 Completed [facility] Vaccine 00:00:00 [facility] Influenza Virus 2019-06-30 Completed [facility] Vaccine 00:00:00 [facility] Influenza Virus 2019-06-30 Completed [facility] Vaccine 00:00:00 [facility] Influenza Virus 2019-06-30 Completed [facility] Vaccine 00:00:00 [facility] Influenza Virus 2019-06-30 Completed [facility] Vaccine 00:00:00 [facility] Influenza Virus 2019-06-30 Completed [facility] Vaccine 00:00:00 [facility] Influenza Virus 2019-06-30 Completed [facility] Vaccine 00:00:00 [facility] Influenza Virus 2019-06-30 Completed [facility] Vaccine 00:00:00 [facility] Influenza Virus 2019-06-30 Completed [facility] Vaccine 00:00:00 [facility] Influenza Virus 2019-06-30 Completed [facility] Vaccine 00:00:00 [facility] Influenza Virus 2019-06-30 Completed [facility] Vaccine 00:00:00 [facility] Influenza Virus 2019-06-30 Completed [facility] Vaccine 00:00:00 [facility] Influenza Virus 2019-06-30 Completed [facility] Vaccine 00:00:00 [facility] Influenza Virus 2019-06-30 Completed [facility] Vaccine 00:00:00 [facility] Influenza Virus 2019-06-30 Completed [facility] Vaccine 00:00:00 [facility] Influenza Virus 2019-06-30 Completed [facility] Vaccine 00:00:00 [facility] Influenza Virus 2019-06-30 Completed [facility] Vaccine 00:00:00 [facility] Influenza Virus 2019-06-30 Completed [facility] Vaccine 00:00:00 [facility] Influenza Virus 2019-06-30 Completed [facility] Vaccine 00:00:00 [facility] Influenza Virus 2019-06-30 Completed [facility] Vaccine 00:00:00 [facility] Influenza Virus 2019-06-30 Completed [facility] Vaccine 00:00:00 [facility] Influenza Virus 2019-06-30 Completed [facility] Vaccine 00:00:00 [facility] Influenza Virus 2019-06-30 Completed [facility] Vaccine 00:00:00 [facility] Influenza Virus 2019-06-30 Completed [facility] Vaccine 00:00:00 [facility] Influenza Virus 2019-06-30 Completed [facility] Vaccine 00:00:00 [facility] Influenza Virus 2018-06-08 Completed [facility] Vaccine Quad ID 00:00:00 [facility] ical 18-64 YRS Branch Influenza Virus 2018-06-08 Completed [facility] of Vaccine Quad ID 00:00:00 [facility] ical 18-64 YRS [place] Influenza Virus 2018-06-08 Completed [facility] Vaccine Quad ID 00:00:00 [facility] ical 18-64 YRS Branch Influenza Virus 2018-06-08 Completed [facility] Vaccine Quad ID 00:00:00 [facility] ical 18-64 YRS [place] Influenza Virus 2018-06-08 Completed [facility] Vaccine Quad ID 00:00:00 [facility] ical 18-64 YRS Branch Influenza Virus 2018-06-08 Completed [facility] Vaccine Quad ID 00:00:00 [facility] ical 18-64 YRS Branch Influenza Virus 2018-06-08 Completed [facility] Vaccine Quad ID 00:00:00 [facility] 18-64 YRS Branch Influenza Virus 2018-06-08 Completed [facility] Vaccine Quad ID 00:00:00 [facility] ical 18-64 YRS Branch Influenza Virus 2018-06-08 Completed [facility] Vaccine Quad ID 00:00:00 [facility] ical 18-64 YRS Branch Influenza Virus 2018-06-08 Completed [facility] Vaccine Quad ID 00:00:00 [facility] ical 18-64 YRS Branch Influenza Virus 2018-06-08 Completed [facility] Vaccine Quad ID 00:00:00 [facility] 18-64 YRS Branch Influenza Virus 2018-06-08 Completed [facility] Vaccine Quad ID 00:00:00 [facility] ical 18-64 YRS Branch Influenza Virus 2018-06-08 Completed [facility] Vaccine Quad ID 00:00:00 [facility] 18-64 YRS Branch Influenza Virus 2018-06-08 Completed [facility] Vaccine Quad ID 00:00:00 [facility] 18-64 YRS Branch Influenza Virus 2018-06-08 Completed [facility] Vaccine Quad ID 00:00:00 [facility] ical 18-64 YRS Branch Influenza Virus 2018-06-08 Completed [facility] Vaccine Quad ID 00:00:00 [facility] 18-64 YRS Branch Influenza Virus 2018-06-08 Completed [facility] Vaccine Quad ID 00:00:00 [facility] ical 18-64 YRS Branch Influenza Virus 2018-06-08 Completed [facility] Vaccine Quad ID 00:00:00 [facility] ical 18-64 YRS Branch Influenza Virus 2018-06-08 Completed [facility] Vaccine Quad ID 00:00:00 [facility] ical 18-64 YRS Branch Influenza Virus 2018-06-08 Completed [facility] Vaccine Quad ID 00:00:00 [facility] ical 18-64 YRS Branch Influenza Virus 2018-06-08 Completed [facility] Vaccine Quad ID 00:00:00 [facility] ical 18-64 YRS Branch Influenza Virus 2018-06-08 Completed [facility] Vaccine Quad ID 00[facility]00:00 [facility] ical 18-64 YRS Branch Influenza Virus 2018-06-08 Completed [facility] Vaccine Quad ID 00:00:00 [facility] ical 18-64 YRS Branch Influenza Virus 2018-06-08 Completed [facility] Vaccine Quad ID 00:00:00 [facility] 18-64 YRS Branch Influenza Virus 2018-06-08 Completed [facility] Vaccine Quad ID 00:00:00 [facility] 18-64 YRS Branch Influenza Virus 2018-06-08 Completed [facility] Vaccine Quad ID 00:00:00 [facility] ical 18-64 YRS Branch Influenza Virus 2018-06-08 Completed [facility] Vaccine Quad ID 00:00:00 [facility] ical 18-64 YRS Branch Influenza Virus 2018-06-08 Completed [facility] Vaccine Quad ID 00:00:00 [facility] ical 18-64 YRS Branch Influenza Virus 2018-06-08 Completed [facility] Vaccine Quad ID 00:00:00 [facility] ical 18-64 YRS Branch Influenza Virus 2018-06-08 Completed [facility] Vaccine Quad ID 00:00:00 [facility] ical 18-64 YRS Branch Influenza Virus 2018-06-08 Completed [facility] Vaccine Quad ID 00:00:00 [facility] ical 18-64 YRS Branch Influenza Virus 2018-06-08 Completed [facility] Vaccine Quad ID 00:00:00 [facility] ical 18-64 YRS Branch Influenza Virus 2018-06-08 Completed [facility] Vaccine Quad ID 00:00:00 [facility] ical 18-64 YRS Branch Influenza Virus 2018-06-08 Completed [facility] Vaccine Quad ID 00:00:00 [facility] ica 18-64 YRS [place] Influenza Virus 2018-06-08 Completed [facility] Vaccine Quad ID 00:00:00 [facility] 18-64 YRS [place] Influenza Virus 2017-06-21 Completed [facility] Vaccine 00:00:00 [facility] Influenza Virus 2017-06-21 Completed [facility] Vaccine 00:00:00 [facility] Influenza Virus 2017-06-21 Completed [facility] Vaccine 00:00:00 [facility] Influenza Virus 2017-06-21 Completed [facility] Vaccine 00:00:00 [facility] Influenza Virus 2017-06-21 Completed [facility] Vaccine 00:00:00 [facility] Influenza Virus 2017-06-21 Completed [facility] Vaccine 00:00:00 [facility] Influenza Virus 2017-06-21 Completed [facility] Vaccine 00:00:00 [facility] Influenza Virus 2017-06-21 Completed [facility] Vaccine 00:00:00 [facility] Influenza Virus 2017-06-21 Completed [facility] Vaccine 00:00:00 [facility] Influenza Virus 2017-06-21 Completed [facility] Vaccine 00:00:00 [facility] Influenza Virus 2017-06-21 Completed [facility] Vaccine 00:00:00 [facility] Influenza Virus 2017-06-21 Completed [facility] Vaccine 00:00:00 [facility] Influenza Virus 2017-06-21 Completed [facility] Vaccine 00:00:00 [facility] Influenza Virus 2017-06-21 Completed [facility] Vaccine 00:00:00 [facility] Influenza Virus 2017-06-21 Completed [facility] Vaccine 00:00:00 [facility] Influenza Virus 2017-06-21 Completed [facility] Vaccine 00:00:00 [facility] Influenza Virus 2017-06-21 Completed [facility] Vaccine 00:00:00 [facility] Influenza Virus 2017-06-21 Completed [facility] Vaccine 00:00:00 [facility] Influenza Virus 2017-06-21 Completed [facility] Vaccine 00:00:00 [facility] Influenza Virus 2017-06-21 Completed [facility] Vaccine 00:00:00 [facility] Influenza Virus 2017-06-21 Completed [facility] Vaccine 00:00:00 [facility] Influenza Virus 2017-06-21 Completed [facility] Vaccine 00:00:00 [facility] Influenza Virus 2017-06-21 Completed [facility] Vaccine 00:00:00 [facility] Influenza Virus 2017-06-21 Completed [facility] Vaccine 00:00:00 [facility] Influenza Virus 2017-06-21 Completed [facility] Vaccine 00:00:00 [facility] Influenza Virus 2017-06-21 Completed [facility] of Vaccine 00:00:00 [facility] Influenza Virus 2017-06-21 Completed [facility] Vaccine 00:00:00 [facility] Influenza Virus 2017-06-21 Completed [facility] Vaccine 00:00:00 [facility] Influenza Virus 2017-06-21 Completed [facility] Vaccine 00:00:00 [facility] Influenza Virus 2017-06-21 Completed [facility] Vaccine 00:00:00 [facility] Influenza Virus 2017-06-21 Completed [facility] Vaccine 00:00:00 [facility] Influenza Virus 2017-06-21 Completed [facility] Vaccine 00:00:00 [facility] Influenza Virus 2017-06-21 Completed [facility] Vaccine 00:00:00 [facility] Influenza Virus 2017-06-21 Completed [facility] Vaccine 00:00:00 [facility] Influenza Virus 2017-06-21 Completed [facility] Vaccine 00:00:00 [facility] TDAP 2017-03-19 Completed [facility] of 00:00:00 [facility] TDAP 2017-03-19 Completed [facility] 00:00:00 [facility] TDAP 2017-03-19 Completed [facility] of 00:00:00 [facility] TDAP 2017-03-19 Completed [facility] 00:00:00 [facility] TDAP 2017-03-19 Completed [facility] 00:00:00 [facility] TDAP 2017-03-19 Completed [facility] 00:00:00 [facility] TDAP 2017-03-19 Completed [facility] 00:00:00 [facility] TDAP 2017-03-19 Completed [facility] 00:00:00 [facility] TDAP 2017-03-19 Completed [facility] 00:00:00 [facility] TDAP 2017-03-19 Completed [facility] 00:00:00 [facility] TDAP 2017-03-19 Completed [facility] 00:00:00 [facility] TDAP 2017-03-19 Completed [facility] 00:00:00 [facility] TDAP 2017-03-19 Completed [facility] 00:00:00 [facility] TDAP 2017-03-19 Completed [facility] of 00:00:00 [facility] TDAP 2017-03-19 Completed [facility] of 00:00:00 [facility] TDAP 2017-03-19 Completed [facility] 00:00:00 [facility] TDAP 2017-03-19 Completed [facility] of 00:00:00 [facility] TDAP 2017-03-19 Completed [facility] of 00:00:00 [facility] TDAP 2017-03-19 Completed [facility] of 00:00:00 [facility] TDAP 2017-03-19 Completed [facility] of 00:00:00 [facility] TDAP 2017-03-19 Completed [facility] of 00:00:00 [facility] TDAP 2017-03-19 Completed [facility] of 00:00:00 [facility] TDAP 2017-03-19 Completed [facility] of 00:00:00 [facility] TDAP 2017-03-19 Completed [facility] 00:00:00 [facility] TDAP 2017-03-19 Completed [facility] 00:00:00 [facility] TDAP 2017-03-19 Completed [facility] 00:00:00 [facility] TDAP 2017-03-19 Completed [facility] 00:00:00 [facility] TDAP 2017-03-19 Completed [facility] of 00:00:00 [facility] TDAP 2017-03-19 Completed [facility] of 00:00:00 [facility] TDAP 2017-03-19 Completed [facility] 00:00:00 [facility] TDAP 2017-03-19 Completed [facility] 00:00:00 [facility] TDAP 2017-03-19 Completed [facility] 00:00:00 [facility] TDAP 2017-03-19 Completed [facility] 00:00:00 [facility] TDAP 2017-03-19 Completed [facility] 00:00:00 [facility] TDAP 2017-03-19 Completed [facility] of 00:00:00 [facility] Vital Signs Vital Name Observation Time Observation Value Comments Source Systolic blood 2022-11-28 17:00:00 134 mm[Hg] Univer sity of pressure [facility] Diastolic blood 2022-11-28 17:00:00 72 mm[Hg] Unive rsity of pressure [facility] Heart rate 2022-11-28 17:00:00 60 /min Universi ty of [facility] Respiratory rate 2022-11-28 17:00:00 15 /min Univ ersity of [facility] Oxygen saturation in 2022-11-28 17:00:00 98 /min University Arterial blood by [facility] Pulse oximetry Branch Body temperature 2022-11-28 15:18:00 36.61 Luz Marina Univ ersity of [facility] Body height 2022-11-28 15:18:00 160 cm Universi ty of [facility] Body weight 2022-11-28 15:18:00 104.781 kg [facility] BMI 2022-11-28 15:18:00 40.92 kg/m2 Universi ty of [facility] Systolic blood 2022-11-27 16:01:00 109 mm[Hg] Univer sity of pressure [facility] Diastolic blood 2022-11-27 16:01:00 76 mm[Hg] Unive rsity of pressure [facility] Heart rate 2022-11-27 16:01:00 60 /min [facility] Body temperature 2022-11-27 16:01:00 36.11 Luz Marina Univ ersity of [facility] Respiratory rate 2022-11-27 16:01:00 18 /min Univ ersity of [facility] Body height 2022-11-27 16:01:00 160 cm [facility] Body weight 2022-11-27 16:01:00 104.781 kg [facility] BMI 2022-11-27 16:01:00 40.92 kg/m2 [facility] Oxygen saturation in 2022-11-27 16:01:00 99 /min [facility]terial blood by [facility] Systolic blood 2022-11-27 15:06:00 109 mm[Hg] Univer sity of pressure [facility] Diastolic blood 2022-11-27 15:06:00 72 mm[Hg] Unive rsity of pressure [facility] Heart rate 2022-11-27 15:06:00 60 /min [facility] Body temperature 2022-11-27 15:06:00 36.11 Luz Marina Univ ersity of [facility] Respiratory rate 2022-11-27 15:06:00 19 /min Univ ersity of [facility] Body height 2022-11-27 15:06:00 160 cm [facility] Body weight 2022-11-27 15:06:00 104.327 kg [facility] BMI 2022-11-27 15:06:00 40.74 kg/m2 [facility] Oxygen saturation in 2022-11-27 15:06:00 99 /min [facility] of Arterial blood by [facility] Systolic blood 2022-11-18 18:08:00 132 mm[Hg] Univer sity of pressure [facility] Diastolic blood 2022-11-18 18:08:00 82 mm[Hg] Unive rsity of pressure [facility] Heart rate 2022-11-18 18:08:00 73 /min [facility] Body temperature 2022-11-18 18:08:00 36.89 Luz Marina Univ ersity [facility] Respiratory rate 2022-11-18 18:08:00 16 /min Univ ersity of [facility] Body weight 2022-11-18 18:08:00 104.781 kg [facility] BMI 2022-11-18 18:08:00 40.92 kg/m2 [facility] Oxygen saturation in 2022-11-18 18:08:00 96 /min [facility]terial blood by [facility] Systolic blood 2022-11-14 15:32:00 145 mm[Hg] Univer sity of pressure [facility] Diastolic blood 2022-11-14 15:32:00 72 mm[Hg] Unive rsity of pressure [facility] Heart rate 2022-11-14 15:32:00 55 /min [facility] Body temperature 2022-11-14 15:32:00 36.44 Luz Marina Univ ersity of [facility] Respiratory rate 2022-11-14 15:32:00 20 /min Univ ersity of [facility] Body height 2022-11-14 15:32:00 160 cm [facility] Body weight 2022-11-14 15:32:00 105.688 kg [facility] BMI 2022-11-14 15:32:00 41.27 kg/m2 [facility] Oxygen saturation in 2022-11-14 15:32:00 97 /min [facility] of Arterial blood by [place] [employer] [facility] Systolic blood 2022-11-13 18:17:00 122 mm[Hg] Univer sity of pressure [facility] Diastolic blood 2022-11-13 18:17:00 78 mm[Hg] Unive rsity of pressure [facility] Heart rate 2022-11-13 18:17:00 67 /min [facility] Body temperature 2022-11-13 18:17:00 36.94 Luz Marina Univ ersity of [facility] Respiratory rate 2022-11-13 18:17:00 18 /min Univ ersity of [facility] Body height 2022-11-13 18:17:00 160 cm [facility] Body weight 2022-11-13 18:17:00 105.688 kg [facility] BMI 2022-11-13 18:17:00 41.27 kg/m2 [facility] Oxygen saturation in 2022-11-13 18:17:00 99 /min University of Arterial blood by [employer] [facility]ika Pulse oximetry Branch Systolic blood 2022-10-31 17:16:00 157 mm[Hg] Univer sity of pressure [facility] Diastolic blood 2022-10-31 17:16:00 86 mm[Hg] Unive rsity of pressure [facility] Heart rate 2022-10-31 17:16:00 74 /min [facility] Body temperature 2022-10-31 17:16:00 36.72 Luz Marina Univ [facility]ity [facility] Respiratory rate 2022-10-31 17:16:00 20 /min Univ ersity [facility] Body height 2022-10-31 17:16:00 160 cm [facility] Body weight 2022-10-31 17:16:00 105.235 kg [facility] BMI 2022-10-31 17:16:00 41.10 kg/m2 [facility] Oxygen saturation in 2022-10-31 17:16:00 99 /min University of Arterial blood by [facility] Pulse oximetry Branch Systolic blood 2022-10-11 00:40:00 125 mm[Hg] Univer sity of pressure [facility] Diastolic blood 2022-10-11 00:40:00 65 mm[Hg] Unive rsity of pressure [facility] Heart rate 2022-10-11 00:40:00 64 /min [facility] Respiratory rate 2022-10-11 00:40:00 18 /min Univ ersity of [facility] Oxygen saturation in 2022-10-11 00:40:00 97 /min University of Arterial blood by [facility] Pulse oximetry Branch Body temperature 2022-10-10 22:00:00 36.83 Luz Marina Univ [facility]ity [facility] Body height 2022-10-10 22:00:00 157.5 cm [facility] Body weight 2022-10-10 22:00:00 107.049 kg [facility] BMI 2022-10-10 22:00:00 43.16 kg/m2 [facility] Systolic blood 2022-10-10 20:21:00 144 mm[Hg] Univer sity of pressure [facility] Diastolic blood 2022-10-10 20:21:00 80 mm[Hg] Unive rsity of pressure [facility] Heart rate 2022-10-10 20:21:00 75 /min [facility] Body temperature 2022-10-10 20:21:00 36.78 Luz Marina Univ [facility] Respiratory rate 2022-10-10 20:21:00 18 /min Univ ers[facility] Body height 2022-10-10 20:21:00 157.5 cm [facility] Body weight 2022-10-10 20:21:00 107.106 kg [facility] BMI 2022-10-10 20:21:00 43.19 kg/m2 [facility] Oxygen saturation in 2022-10-10 20:21:00 98 /min University of Arterial blood by [facility] Pulse oximetry Branch Systolic blood 2022-10-02 20:35:00 137 mm[Hg] Univer sity of pressure [facility] Diastolic blood 2022-10-02 20:35:00 64 mm[Hg] Unive rsity of pressure [facility] Heart rate 2022-10-02 20:35:00 73 /min [facility] Body temperature 2022-10-02 20:35:00 36.11 Luz Marina Univ [facility] Body height 2022-10-02 20:35:00 157.5 cm [facility] Body weight 2022-10-02 20:35:00 107.956 kg [facility] BMI 2022-10-02 20:35:00 43.53 kg/m2 [facility] Oxygen saturation in 2022-10-02 20:35:00 98 /min University of Arterial blood by [facility] Pulse oximetry Branch Systolic blood 2022-06-10 17:25:00 127 mm[Hg] Univer sity of pressure [facility] Diastolic blood 2022-06-10 17:25:00 85 mm[Hg] Unive rsity of pressure [facility] Heart rate 2022-06-10 17:25:00 63 /min [facility] Body temperature 2022-06-10 17:25:00 37 Luz Marina Univ [facility] Respiratory rate 2022-06-10 17:25:00 16 /min Univ ersity [facility] Body height 2022-06-10 17:25:00 157.5 cm [facility] Body weight 2022-06-10 17:25:00 101.107 kg [facility] BMI 2022-06-10 17:25:00 40.77 kg/m2 [facility] Oxygen saturation in 2022-06-10 17:25:00 99 /min [facility] Arterial blood by [facility] Pulse oximetry Branch Systolic blood 2022-05-09 16:19:00 126 mm[Hg] Univer sity of pressure [facility] Diastolic blood 2022-05-09 16:19:00 84 mm[Hg] Unive rsity of pressure [facility] Heart rate 2022-05-09 16:19:00 60 /min [facility] Body temperature 2022-05-09 16:19:00 36.5 Luz Marina [facility] 2022-05-09 16:19:00 16 /min [facility] Body height 2022-05-09 16:19:00 157.5 cm [facility] Body weight 2022-05-09 16:19:00 97.07 kg [facility] BMI 2022-05-09 16:19:00 39.14 kg/m2 [facility] Oxygen saturation in 2022-05-09 16:19:00 99 /min [facility] Arterial blood by [facility] Pulse oximetry Branch Procedures Procedure Date / Time Performing Clinician Source Performed XR, calcaneus, 2 or 2023-01-03 00:00:00 Breanne Ni rthopedic more view Sports Medicine CONSENT/REFUSAL FOR 2022-11-28 15:04:39 [facility] POCT URINALYSIS 2022-11-18 18:11:00 Holger Becerra [place] [facility] MEDICAL 2022-11-06 06:01:00 Doctor Unassigned, No [facility] RELEASE/CLEARANCE FORMS [facility] CONSENT/REFUSAL FOR 2022-10-11 19:21:22 [facility] ASSIGNMENT OF BENEFITS 2022-10-11 19:21:07 [facility] LEAD 2022-10-11 00:16:40 Wayne [facility] RAPID INFLUENZA A/B 2022-10-10 22:42:00 Wayne [facility] PROTHROMBIN TIME / INR 2022-10-10 22:39:00 Corby Black [facility] LACTIC ACID WHOLE BLOOD 2022-10-10 22:39:00 Wayne [facility] TROPONIN I 2022-10-10 22:35:00 Wayne [facility] COMP. METABOLIC PANEL 2022-10-10 22:35:00 Wayne [facility] ([id number]) [facility] CBC WITH DIFF 2022-10-10 22:35:00 Wayne [facility] URINALYSIS 2022-10-10 22:35:00 Black, [facility] N-TERMINAL PRO-BNP 2022-10-10 22:35:00 Wayne [facility] CONSENT/REFUSAL FOR 2022-10-10 21:58:05 Doctor Unassigned, No Un [facility] DIAGNOSIS AND TREATMENT Name Medical Branch PNEUMOCOCCAL 20 2022-10-02 21:40:38 Erich Byers [facility] CONJUGATE (PREVNAR 20) [facility] ranch VACCINE POCT URINALYSIS 2022-06-10 17:26:00 Holger Becerra [facility] MR BRAIN WO CONTRAST 2022-06-06 14:07:32 Marino Yuen [facility] Plan of Care Planned Activity Planned Date Details Comments Source Future Scheduled Test 2023-01-25 COVID-19 VACCINE [facility] 00:34:23 (#1) [code = COVID-19 VACCINE (#1)] Future Scheduled Test 2023-01-25 Screening for [facility] 00:34:23 malignant neoplasm of cervix (procedure) [code = 151391933] Future Scheduled Test 2023-01-25 BREAST CANCER [facility] 00:34:23 SCREENING [code = BREAST CANCER SCREENING] Future Scheduled Test 2023-01-25 [facility]EN[facility] [code = COLONOSCOPY SCREENING] Future Scheduled Test 2023-01-25 SHINGLES VACCINES (1 [facility] 00:34:23 of 2) [code = SHINGLES VACCINES (1 of 2)] Future Scheduled Test 2023-01-25 INFLUENZA VACCINE [facility] 00:34:23 [code = INFLUENZA VACCINE] Future Scheduled Test 2022-11-28 COVID-19 VACCINE [facility] 10:05:23 (#1) [code = COVID-19 VACCINE (#1)] Future Scheduled Test 2022-11-28 Screening for [facility] 10:05:23 malignant neoplasm of cervix (procedure) [code = 361043465] Future Scheduled Test 2022-11-28 BREAST CANCER [facility] 10:05:23 SCREENING [code = BREAST CANCER SCREENING] Future Scheduled Test 2022-11-28 COLONOSCOPY Method [facility] 10:05:23 SCREENING [code = COLONOSCOPY SCREENING] Future Scheduled Test 2022-11-28 SHINGLES VACCINES (1 [facility] 10:05:23 of 2) [code = SHINGLES VACCINES (1 of 2)] Future Scheduled Test 2022-11-28 INFLUENZA VACCINE [facility] 10:05:23 [code = INFLUENZA VACCINE] Future Scheduled Test 2022-08-30 COVID-19 VACCINE [facility] 04:38:23 (#1) [code = COVID-19 VACCINE (#1)] Future Scheduled Test 2022-08-30 Screening for [facility] 04:38:23 malignant neoplasm of cervix (procedure) [code = 321882568] Future Scheduled Test 2022-08-30 BREAST CANCER [facility] 04:38:23 SCREENING [code = BREAST CANCER SCREENING] Future Scheduled Test 2022-08-30 COLONOSCOPY Method [facility] 04:38:23 SCREENING [code = COLONOSCOPY SCREENING] Future Scheduled Test 2022-08-30 SHINGLES VACCINES (1 [facility] 04:38:23 of 2) [code = SHINGLES VACCINES (1 of 2)] Future Scheduled Test 2022-08-30 INFLUENZA VACCINE [facility] 04:38:23 [code = INFLUENZA VACCINE] Future Scheduled Test 2022-08-16 HEPATITIS B VACCINES [facility] 05:43:33 (1 of 3 - 3-dose series) [code = HEPATITIS B VACCINES (1 of 3 - 3-dose series)] Future Scheduled Test 2022-08-16 COVID-19 VACCINE [facility] 05:43:33 (#1) [code = COVID-19 VACCINE (#1)] Future Scheduled Test 2022-08-16 Screening for [facility] 05:43:33 malignant neoplasm of cervix (procedure) [code = 760170285] Future Scheduled Test 2022-08-16 BREAST CANCER [facility] 05:43:33 SCREENING [code = BREAST CANCER SCREENING] Future Scheduled Test 2022-08-16 COLONOSCOPY Method [facility] 05:43:33 SCREENING [code = COLONOSCOPY SCREENING] Future Scheduled Test 2022-08-16 SHINGLES VACCINES (1 [facility] 05:43:33 of 2) [code = SHINGLES VACCINES (1 of 2)] Future Scheduled Test 2022-08-16 INFLUENZA VACCINE [facility] 05:43:33 [code = INFLUENZA VACCINE] Future Scheduled Test 2021-09-19 COVID-19 VACCINE (1) [facility] 15:48:31 [code = COVID-19 VACCINE (1)] Future Scheduled Test 2021-09-19 Hepatitis C Method [facility] 15:48:31 screening (procedure) [code = 412772983] Future Scheduled Test 2021-09-19 Screening for [facility] 15:48:31 malignant neoplasm of cervix (procedure) [code = 939350953] Future Scheduled Test 2021-09-19 BREAST CANCER [facility] 15:48:31 SCREENING [code = BREAST CANCER SCREENING] Future Scheduled Test 2021-09-19 COLONOSCOPY Method [facility] 15:48:31 SCREENING [code = COLONOSCOPY SCREENING] Future Scheduled Test 2021-09-19 SHINGLES VACCINES [facility] 15:48:31 (#1) [code = SHINGLES VACCINES (#1)] Future Scheduled Test 2021-09-19 INFLUENZA VACCINE [facility] 15:48:31 [code = INFLUENZA VACCINE] Future Scheduled Test 2021-09-19 COVID-19 VACCINE (1) [facility] 15:48:31 [code = COVID-19 VACCINE (1)] Future Scheduled Test 2021-09-19 Hepatitis C Method [facility] 15:48:31 screening (procedure) [code = 260786207] Future Scheduled Test 2021-09-19 [facility] 15:48:31 malignant neoplasm of cervix (procedure) [code = 750626394] Future Scheduled Test 2021-09-19 BREAST CANCER [facility] 15:48:31 SCREENING [code = BREAST CANCER SCREENING] Future Scheduled Test 2021-09-19 COLONOSCOPY Method [facility] 15:48:31 SCREENING [code = COLONOSCOPY SCREENING] Future Scheduled Test 2021-09-19 SHINGLES VACCINES [facility] 15:48:31 (#1) [code = SHINGLES VACCINES (#1)] Future Scheduled Test 2021-09-19 INFLUENZA VACCINE [facility] 15:48:31 [code = INFLUENZA VACCINE] Future Scheduled Test 2021-05-09 [address] VACC[address] [facility] 00:00:00 (#1) [code = [facility] INFLUENZA VACCINE (#1)] Future Scheduled Test 2021-05-09 INFLU[address]ZA VACC[address] [facility] 00:00:00 (#1) [code = [facility] INFLUENZA VACCINE (#1)] Future Scheduled Test 2020-09-[address] [facility] 00:00:00 (12+) [code = [facility] DEPRESSION SCREENING (12+)] Future Scheduled Test 2020-09-[address] [facility] 00:00:00 (12+) [code = [facility] DEPRESSION SCREENING (12+)] Future Scheduled Test 2019 SHINGLES VACCINES ([address] [facility] 00:00:00 of 2) [code = [facility] SHINGLES VACCINES (1 of 2)] Future Scheduled Test 2019 SHINGLES VACCINES ([address] [facility] 00:00:00 of 2) [code = [facility] SHINGLES VACCINES (1 of 2)] Future Scheduled Test [address] [facility] 00:00:00 (procedure) [code = [facility] [id number]] Future Scheduled Test [address] [facility] 00:00:00 (procedure) [code = [facility] 37638610] Future Scheduled Test 1990 [facility] 00:[facility]:00 malignant neoplasm Medical C enter of cervix (procedure) [code = 100654072] Future Scheduled Test 1990 Scre[facility] for [facility] 00:00:00 malignant neoplasm Medical C enter of cervix (procedure) [code = 902583507] Future Scheduled Test 1988 DTAP/TDAP/TD [facility] 00:00:00 VACCINES (1 - Tdap) [facility] [code = DTAP/TDAP/TD VACCINES (1 - Tdap)] Future Scheduled Test 1988 DTAP/TDAP/TD [facility] 00:00:00 VACCINES (1 - Tdap) [facility] Center [code = DTAP/TDAP/TD VACCINES (1 - Tdap)] Future Scheduled Test [address] [facility] 00:00:00 SCREENING [code = Medical Ce [facility]ter HEPATITIS C SCREENING] Future Scheduled Test [address] [facility] 00:00:00 SCREENING [code = Medical Ce nter HEPATITIS C SCREENING] Future Scheduled Test 1981 COVID-19 VACCINE (1) [facility] 00:00:00 [code = COVID-[address] VACCINE (1)] Future Scheduled Test 1981 COVID-19 VACCINE (1) [facility] 00:00:00 [code = COVID-[address] VACCINE (1)] Future Scheduled Test 1969 [facility] for [facility] 00:[facility]:00 malignant neoplasm Medical C enter of breast (procedure) [code = 001162425] Future Scheduled Test 1969 Scre[facility] for [facility] 00:00:00 malignant neoplasm Medical C enter of colon (procedure) [code = 884245388] Future Scheduled Test 1969 [facility] for [facility] 00:00:00 malignant neoplasm Medical C enter of breast (procedure) [code = 966804244] Future Scheduled Test 1969 Scre[facility] for [facility] 00:00:00 malignant neoplasm Medical C enter of colon (procedure) [code = 609892005] Instructions [facility] Encounters Start End Encounter Admission Attending Care Care Encounter Source Date/Time Date/Time Type Type Clinicians Facility Department ID 2021-12-31 Outpatient R [facility] [id number] [facility] 13:[facility] [id number] Univers 23:05:31 ity [facility] 2021-07-07 [facility] [id number] Univers 18:35:26 ANA MARIA ity [facility] 2021-07-07 Emergency [facility] [id number] Univers 14:28:37 ity [facility] 2021-07-07 Emergency [facility] [id number] Univers 02:55:14 ity [facility] 2021-07-06 Emergency [facility] [id number] Univers 21:44:02 ity [facility] 2021-07-06 Emergency [facility] [id number] Univers 06:38[facility]46 [facility]22 Inpatient [facility] MED [id number] [facility]. 16:23:00 [facility] 2023-01-03 2023-01-03 Outpatient FOG_Patel_A AOS[facility] AO [id number] Breanne 00:00:00 00:00:00 Emily [id number] Orthop e dic Sports Medicin e 2023-01-03 2023-01-03 Erich López [facility] [place] - [facility] [id number] Breanne 00:00:00 00:00:00 Rosey Michel MD: [id number] FOG_Ofc dic [facility] Spo [facility], [place] [id number] , Ph. [phone] 2023-01-02 2023-01-02 Outpatient JOE SEGOVIA [facility] [id number] Univers 11:00:00 [facility]:00[facility]00 [facility]23-[facility]-01 2023-01-01 Outpatient R [facility] [id number] Univers 16:00:00 16:00:00 [facility] 2022-12-19 2022-12-19 Outpatient JOE SEGOVIA [facility] [id number] Univers 10:00:00 10:00:00 [facility] 2022-12-16 2022-12-16 Outpatient Keyanna REHMAN [facility] [id number] Univers 15:00:00 15:00:00 EDNA [facility] 2022-12-12 2022-12-12 Outpatient [facility] [facility] [id number] Univers 11:00:00 11:00:00 [facility] 2022-11-28 2022-11-28 Emergency X SHAMIKA [facility] ERT [id number] Univers 10:19:00 14:23:00 VIDA [facility] 2022-11-28 2022-11-28 [facility] 1.2.901.749 [id number] Univers 10:19:00 14:23:00 Vida G [place] 350.1.13.10 ity of [place]2.7.2.[place] [id number] [facility] 084 [place] 2022-11-28 2022-11-28 Outpatient R WILFRID [facility] [id number] Univers 11:00:00 11:00:00 MARINO chapa [facility] 2022-11-27 2022-11-27 Georgia Becerra Holger [facility] 1.2.840.114 1 [id number] Univers 12:00:00 12:20:00 Care Unknown, Attending HEALTH 350.1.13.10 ity of [place] 4.2.7.2.686 Roger as JEANNETTE?BLEA [id number] [address] OFFICE [facility] 2022-11-27 2022-11-27 Outpatient R HERNAN [facility] [id number] Univers 12:00:00 12:00:00 HOLGER chapa [facility] 2022-11-27 2022-11-27 Nurse Hernan [facility] 1..840.114 1 [id number] Univers 10:15:00 10:35:00 Visit Unknown, Attending HEALTH 350.1.13.10 ity of [place] 4.2.7.2.686 Roger as JEANNETTE?BLEA [id number] [address] OFFICE [facility] 2022-11-27 2022-11-27 Telephone 1, [facility] 1..670.736 [id number] Univers 00:00:00 00:00:00 Infusion [place] 350.1.13.10 ity of Nurse [place].2.686 [place] SURGICAL [id number] [facility] 053 [place] 2022-11-18 2022-11-18 Holger Avery [facility] 1.2.840.114 1 [id number] Univers 13:00:00 13:20:00 Care Unknown, Attending HEALTH 350.1.13.10 ity of [place] 4.2.7.2.686 Roger as JEANNETTE?BLEA [id number] [address] MEDICAL OFFICE BUILDING 2022-11-18 2022-11-18 Outpatient R HERNAN [facility] [id number] Univers 13:00:00 13:00:00 HOLGER ity [facility] 2022-11-14 2022-11-14 Nurse 1, Adc Infusion Nurse [facility] 1.2. 840.114 [id number] Univers 11:00:00 11:15:00 Visit Joe [facility]ascencia [facility] 350.1.13.10 ity of [place] 4.2.7.2.[address] [facility] [id number] Med ica CENTER 3 [place] 2022-11-14 2022-11-14 Outpatient R JOE PLASCENCIA [facility] [id number] Univers 11:00:00 11:00:00 ity of [facility] 2022-11-13 2022-11-13 Outpatient R WILFRID [facility] [id number] Univers 12:30:00 13:08:31 MARINO ity [facility] 2022-11-13 2022-11-13 Office [facility] 1.2.840.114 [id number] Univers 12:30:00 13:08:31 Visit Marino TINAJERO 350.1.13.10 ity of [place] 4.2.7.2.[address] [facility] [id number] [address] [facility]ES [facility] 2022-11-06 2022-11-06 Orders Doctor MARCELO 1.2.840.114 [id number] Univers 00:00:00 00:00:00 Only Unassigned, ALVARO 350.1.13.10 ity of [place] [facility] 4.2.7.2.686 Roger as [id number] [place] [address] [address] 2022-11-03 2022-11-03 [facility] 1.2.840.114 [id number] Univers 00:00:00 00:00:00 Marino JUÁREZPEC 350.1.13.10 ity of I[place] 4.2.7.2.[address] [facility] [id number] [address] DIABETES CLINIC 2022-11-01 2022-11-01 Telephone [facility] 1.2.628.739 [id number] Univers 00:00:00 00:00:00 Marino Colon MULTISPEC 350.1.13.10 ity of IALTY 4.2.7.2.686 [facility] [id number] [address] DIABETES CLINIC 2022-10-31 2022-10-31 Nurse 1, Adc Infusion Nurse [facility] 1.2. 840.114 [id number] Univers 11:00:00 11:15:00 Visit Joe Plascencia 350.1.13.10 ity of [place] 4.2.7.2.[address] [facility] [id number] [facility] ica CENTER [address] 2022-10-31 2022-10-31 Outpatient R JOE PLASCENCIA [facility] [id number] Univers 11:00:00 11:00:00 ity of [facility] 2022-10-24 2022-10-24 Outpatient R [facility] [id number] Univers 14:30:00 14:30:00 ORPHEUS ity [facility] 2022-10-16 2022-10-16 Outpatient R [facility] [id number] Univers 15:00:00 15:00:00 ORPHEUS ity [facility] 2022-10-15 2022-10-15 [facility] 1.2.840.114 [id number] Univers 00:00:00 00:00:00 Marino TINAJERO 350.1.13.10 ity of IALTY 4.2.7.2.[address] [place] [id number] DIABETES CLINIC 2022-10-11 2022-10-11 Outpatient [facility] [id number] Univers 13:21:11 23:59:00 MARINO ity [facility] 2022-10-11 2022-10-11 [facility] 1.2.840.114 [id number] Univers 13:21:11 23:59:00 Encounter Marino COLIN 350.1.13.10 ity [facility] 4.2.7.2.686 [facility] [id number] [facility] [address] 2022-10-10 2022-10-10 Emergency X BLACK, [facility] ERT [id number] Univers 16:03:00 18:43:00 CORBY ity of [facility] 2022-10-10 2022-10-10 Emergency Black, [facility] 1.2.316.530 [id number] Univers 16:03:00 18:43:00 Corby [facility] 350.1.13.10 it y of [place].2.7.2.686 [place] [phone] [place] [address] [address] (CLC) 2022-10-10 2022-10-10 Urgent Provider, [facility] 1.2.840.114 [id number] Univers 13:40:00 14:00:00 Care Unknown, [facility] 350.1.13.10 ity of [place] 4.2.7.2.686 Roger as JEANNETTE?BLEA [phone] [facility] [address] [place] MEDICAL OFFICE BUILDING 2022-10-10 2022-10-10 Outpatient R RUFINA [facility] [id number] Univers 13:40:00 13:40:00 JEAN ity of [facility] 2022-10-07 2022-10-07 Outpatient R JOE PLASCENCIA [facility] [id number] Univers 00:00:00 00:00:00 ity [facility] 2022-10-04 2022-10-04 Telephone Zeeshan [facility] 1.2.840.114 1 [id number] Univers 00:00:00 00:00:00 Erich GALLOWAY 350.1.13.10 it y of Fidel [facility] 4.2.7.2.686 [place] [facility] [id number] Co dicpa [address] [place] 2022-10-02 2022-10-02 Early Years Teacher Vtc-Lab [facility] 1.2.840.114 [id number] Univers 16:00:00 16:15:00 Visit Joe Plascencia MULTISPEC 350.1.13.1 0 ity of [place] 4.2.7.2.686 [place] [facility] [id number] [facility] [place] [address] [place] [facility] 2022-10-02 2022-10-02 Office Erich Byers [facility] 1 .2.840.114 [id number] Univers 14:20:00 14:50:00 Visit Joe Plascencia MULTISPEC 350.1.13.1 0 ity of IALTY 4.2.7.2.686 [facility] [id number] [address] DIABETES [facility] 2022-10-02 2022-10-02 Outpatient R JOE PLASCENCIA [facility] [id number] Univers 14:20:00 14:20:00 ity of [facility] 2022-09-30 2022-09-30 [facility] 1.2.203.712 [id number] [facility] 00:00:00 00:00:00 Marino Colon MULTISPEC 350.1.13.10 ity of IALTY 4.2.7.2.686 [facility] [id number] [address] DIABETES [facility] 2022-08-21 2022-08-21 Emergency EM Oyebadejo, HCACL AERS [id number] [facility] 19:48:00 21:45:00 Oluwadolapo 10 Cl [facility] 2022-08-15 2022-08-15 [facility] [id number] Univers 10:30:00 10:30:00 [facility]INO [facility] 2022-08-15 2022-08-15 Outpatient [facility] [id number] Univers 10:30:00 10:30:00 MARINO chapa [facility] 2022-07-28 2022-07-28 Castillo Newell [facility] 1.2.840.114 [id number] Univers 00:00:00 00:00:00 Corby TINAJERO 350.1.13.10 ity of Randy IALTY 4.2.7.2.686 [facility] [id number] [address] DIABETES [facility] 2022-07-07 2022-07-07 Castillo Newell [facility] 1.2.840.114 [id number] Univers 00:00:00 00:00:00 Corby JUÁREZPEC 350.1.13.10 ity of Randy IALTY 4.2.7.2.686 [facility] [id number] [address] DIABETES CLINIC 2022-06-21 2022-06-21 Refill [facility] 1.2.840.114 [id number] Univers 00:00:00 00:00:00 Marino Colon MULTISPEC 350.1.13.10 ity of [place].2.686 [place] [facility] [id number] [address] DIABETES CLINIC 2022-06-10 2022-06-10 [facility] 1.2.840.114 [id number] Univers 12:00:00 12:41:24 Care [facility] 350.1.13.10 i ty of [place] 4.2.7.2.686 Roger as JEANNETTE?BLEA [phone] Co juve [address] MEDICAL OFFICE BUILDING 2022-06-10 2022-06-10 Outpatient R [facility] [id number] Univers 12:00:00 12:41:24 [facility] ity o f [facility] 2022-06-06 2022-06-06 Outpatient [facility] [id number] Univers 08:28:55 23:59:00 MARINO ity [facility] 2022-06-06 2022-06-06 [facility] 1.2.840.114 [id number] Univers 08:28:55 23:59:00 Encounter Marino Colon [place] 350.1.13.10 ity of [place].2.7.2.686 [place] [id number] [facility] [address] 2022-06-03 2022-06-03 Telephone [facility] 1.2.579.273 [id number] Univers 00:00:00 00:00:00 Marino Colon MULTISPEC 350.1.13.10 ity of I[place] 4.2.7.2.[address] [facility] [id number] [address] DIABETES CLINIC 2022-05-30 2022-05-30 Outpatient [facility] [id number] Univers 07:46:48 23:59:00 MARINO itetienne [facility] 2022-05-22 2022-05-22 [facility] 1.2.601.079 [id number] Univers 00:00:00 00:00:00 Marino Colon MULTISPEC 350.1.13.10 ity of [place] 4.2.7.2.686 [place] C[place] [id number] [facility] AND [address] DIABETES CLINIC 2022-05-15 2022-05-15 Telephone Wilfrid [facility] 1.2.380.824 [id number] Univers 00:00:00 00:00:00 Marino Colon MULTISPEC 350.1.13.10 ity of [place] 4.2.7.2.686 [place] [id number] [facility] AND [address] DIABETES CLINIC 2022-05-10 2022-05-10 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 Teacher Román, [facility] 1.2.8 40.114 [id number] Univers 10:30:00 10:45:00 Visit Marino Yuen [place] 350.1.13.10 ity of [place] 4.2.7.2.686 [place] [id number] Co dical [address] 2022-05-10 2022-05-10 Outpatient Keyanna YUEN [facility] [id number] Univers 10:30:00 10:30:00 MARINO ity [facility] 2022-05-10 2022-05-10 Outpatient Keyanna YUEN [facility] [id number] Univers 10:30:00 10:30:00 [facility] 2022-05-09 2022-05-09 Outpatient Keyanna YUEN [facility] [id number] Univers 11:00:00 12:04:38 MARINO ity [facility] 2022-05-09 2022-05-09 Office [facility] 1.2.840.114 [id number] Univers 11:00:00 12:04:38 Visit Marino TINAJERO 350.1.13.10 ity of [place] 4.2.7.2.686 [place] CENTER [id number] [facility] AND [address] DIABETES CLINIC 2022-05-09 2022-05-09 Outpatient Keyanna YUEN [facility] [id number] Univers 11:00:00 11:00:00 MARINO ity [facility] 2022-05-05 2022-05-05 [facility] 1.2.840.114 [id number] Univers 00:00:00 00:00:00 Marino Isaiah MULTISPEC 350.1.13.10 ity of [place] 4[place]2.7.2.686 [place] [facility] [id number] [address] DIABETES CLINIC 2022-05-04 2022-05-04 [facility] 1.2.840.114 [id number] Univers 00:00:00 00:00:00 Marino Isaiah MULTISPEC 350.1.13.10 ity of [place] 4.2.7.2.686 [place] C[place] [id number] [facility] AND [address] DIABETES CLINIC 2022-05-03 2022-05-03 [facility] 1.2.840.114 [id number] Univers 00:00:00 00:00:00 Marino Colon MULTISPEC 350.1.13.10 ity of [place] 4.2.7.2.686 [place] [id number] [facility] AND [address] DIABETES CLINIC 2022-04-29 2022-04-29 Patient [facility] 1.2.840.114 [id number] Univers 00:00:00 00:00:00 Secure Msg Marino Isaiah MULTISPEC 350.1.13.10 ity of [place] 4.2.7.2.686 [place] [id number] [address] DIABETES CLINIC 2022-04-15 2022-04-15 Outpatient R RUPERT [facility] [id number] [facility] 12:00:00 12:34:59 LION ity of [facility] 2022-04-15 2022-04-15 Urgent Lion Emery [facility] 1.2.840. 114 [id number] Univers 12:00:00 12:34:59 [facility] 350.1.13.10 ity of [place] 4.2.7.2.686 Roger as JEANNETTE?BLEA [id number] Co juve [address] MEDICAL OFFICE BUILDING 2022-04-08 2022-04-08 Outpatient Keyanna YUEN [facility] [id number] Univers 09:00:00 09:00:00 MARINO itetienne [facility] 2022-04-08 2022-04-08 Outpatient Keyanna YUEN [facility] [id number] Univers 09:00:00 09:00:00 MARINO itetienne [facility] 2022-04-08 2022-04-08 Outpatient Keyanna YUEN [facility] [id number] Univers 09:00:00 09:00:00 MARINO itetienne [facility] 2022-04-08 2022-04-08 Outpatient Keyanna YUEN [facility] [id number] Univers 09:00:00 09:00:00 MARINO [facility] 2022-03-27 2022-03-27 Orders Doctor DAVIAN 1.2.840.114 [id number] Univers 00:00:00 00:00:00 Only Unassigned, ALVARO 350.1.13.[address] [facility] 4.2.7.2.686 Roger as [id number] [address] 2022-03-25 2022-03-25 [facility] 1.2.347.375 [id number] Univers 00:00:00 00:00:00 Marino Colon MULTISPEC 350.1.13.10 ity of [place] 4[place].7.2.686 [place] [facility] [id number] [address] DIABETES CLINIC 2022-03-24 2022-03-24 Castillo Newell [facility] 1.2.840.114 [id number] Univers 00:00:00 00:00:00 Corby JUÁREZPEC 350.1.13.10 ity of [facility] 4.2.7.2.686 [place] C[place] [id number] [address] DIABETES CLINIC 2022-03-08 2022-03-08 Outpatient Keyanna REHMAN [facility] [id number] Univers 16:00:00 16:00:00 EDNA chapa [facility] 2022-03-08 2022-03-08 Outpatient Keyanna REHMAN [facility] [id number] Univers 16:00:00 16:00:00 EDNA chapa [facility] 2022-03-04 2022-03-04 Outpatient Keyanna YUEN [facility] [id number] Univers 00:00:00 00:00:00 MARINO chapa [facility] 2022-03-04 2022-03-04 Outpatient R WILFRID [facility] [id number] Univers 00:00:00 00:00:00 MARINO chapa [facility] 2022-02-27 2022-02-27 Ancillary Jolene Levine [facility] 1..840. 114 [id number] Univers 08:45:00 09:30:00 Visit Edna Rehman Catherine COLIN 350.1.13.10 ity of [place] 4.2.7.2.686 [place] [id number] [address] 2022-02-22 2022-02-22 Emergency EM White, HCACL HCACL [id number] [facility] 11:32:00 14:06:00 Corby [id number] [facility] 2022-02-22 2022-02-22 Emergency EM White, HCACL AERS [id number] [facility] 11:32:00 14:06:00 Corby Nickerson [facility] 2022-02-22 2022-02-22 Outpatient R ORI [facility] [id number] Univers 13:45:00 13:45:00 EDNA chapa [facility] 2022-02-14 2022-02-14 Ancillary Yelena Schaffer [facility] .. 840.114 [id number] [facility] 13:45:00 14:30:00 Visit Edna Rehman Catherine COLIN 350.1.13.10 ity of [place] 4.2.7.2.686 [place] [id number] Co dical NAL 179 [facility] 2022-02-11 2022-02-11 Ancillary Natalie Hsu [facility] ..840.114 [id number] [facility] 08:45:00 09:30:00 Visit Edna Rehman 350.1.13.10 ity of [place] 4.2.7.2.686 [place] [id number] Co dical NAL 179 [facility] 2022-02-05 2022-02-05 Ancillary Michelle Levine [facility] 1.2.840 .114 [id number] Univers 13:00:00 13:45:00 Visit Edna Rehman 350.1.13.10 ity of [place] 4.2.7.2.686 [place] [id number] Co dical NAL 179 [facility] 2022-02-01 2022-02-01 Outpatient R ORI [facility] [id number] Univers 14:30:00 16:49:25 EDNA ity of [facility] 2022-02-01 2022-02-01 Ancillary Michelle Levine [facility] 1.2.840 .114 [id number] Univers 14:30:00 15:15:00 Visit Edna Rehman 350.1.13.10 ity [facility] 4.2.7.2.686 [place] [id number] Co dical NAL 179 [facility] 2022-02-01 2022-02-01 Patient [facility] 1.2.840.114 [id number] Univers 00:00:00 00:00:00 Secure Msg Marino Colon MULTISPEC 350.1.13.10 ity of [place] 4.2.7.2.686 [place] [id number] [facility] AND [place] [address] [place] DIABETES CLINIC 2022-01-28 2022-01-28 Ancillary Sydnie Shaw [facility] 1.2.84 0.114 [id number] Univers 13:00:00 13:45:00 Visit Edna Rehman 350.1.13.10 ity of [place] 4.2.7.2.686 [place] [id number] Co dical NAL 179 [facility] 2022-01-28 2022-01-28 Orders Doctor DAVIAN 1.2.840.114 [id number] Univers 00:00:00 00:00:00 Only Unassigned, ALVARO 350.1.13.10 ity of [place] [facility] 4.2.7.2.686 Roger as [id number] [address] 2022-01-18 2022-01-18 Inpatient Eulalia BlackTO [facility] [id number] [id number] [facility] 05:50:00 17:53:00 30 [facility] 2022-01-01 2022-01-01 Outpatient Eulalia Black HCACL LABO G00 [id number] [facility] 16:46:00 16:46:00 83 [facility] 2022-01-01 2022-01-01 Outpatient Eulalia Black HCAWU REFE Z00 [id number] [facility] 14:24:00 14:24:00 17 [facility] 2021-12-27 2021-12-27 Telephone Kyle IDMABEL 1.2.682.959 [id number] Univers 00:00:00 00:00:00 Chase [place] SPECIALTY 350.1.13.10 ity of CARE 4.2.7.2.[address] [facility] AT [id number] [address] 2021-12-26 2021-12-26 Refill Wilfrid [facility] 1.2.840.114 [id number] Univers 00:00:00 00:00:00 Marino Colon MULTISPEC 350.1.13.10 ity of IAL[place] 4.2.7.2.[address] [facility] C[facility] [id number] [address] DIABETES CLINIC 2021-12-19 2021-12-19 Patient Wilfrid [facility] 1.2.840.114 [id number] Univers 00:00:00 00:00:00 Secure Msg Marino Colon MULTISPEC 350.1.13.10 ity of IAL[place] 4.2.7.2.[address] [facility] CENTER [id number] [facility] AND [address] DIABETES CLINIC 2021-12-14 2021-12-14 Outpatient Keyanna BOWLES IDMABEL IDMABEL [id number] Univers 15:50:00 17:14:37 CHASE chapa of [facility] 2021-12-14 2021-12-14 Office Kyle [facility] 1.2.840.114 [id number] Univers 15:50:00 17:14:37 Visit Chase [place] SPECIALTY 350.1.13.10 ity of CARE 4.2.7.2.[address] [facility] C[facility] AT [id number] Co dical VICTORY [address] [facility] 2021-12-07 2021-12-07 Outpatient R KYLE [facility] [id number] Univers 11:16:01 23:59:00 CHASE ity [facility] 2021-12-07 2021-12-07 [facility] 1.2.840.114 [id number] Univers 11:16:01 23:59:00 Encounter Chase RESENDIZ 350.1.13.10 ity [facility] 4.2.7.2.686 [place] C[place] AT [id number] Co dical VICTORY [address] [facility] 2021-12-07 2021-12-07 Outpatient KOJO, HCACL LABO [id number] [facility] 19:02:00 19:02:00 Neighbors 76 [facility] 2021-12-07 2021-12-07 Outpatient KW, HCAKW LABO [id number] [facility] 18:31:00 18:31:00 Neighbors 21 [facility] 2021-12-04 2021-12-04 Outpatient Keyanna REHMAN [facility] [id number] Univers 13:45:00 13:45:00 EDNA chapa [facility] 2021-12-04 2021-12-04 Ancillary Yelena Schaffer [facility] 1.2. 840.114 [id number] Univers 08:00:00 08:45:00 Visit Edna Rehman 350.1.13.10 [facility] [id number] [facility] [phone] Co dical NAL 179 [facility] 2021-12-04 2021-12-04 Outpatient Keyanna REHMAN [facility] [id number] Univers 08:00:00 08:00:00 EDNA chapa [facility] 2021-12-04 2021-12-04 Outpatient R ORI [facility] [id number] Univers 08:00:00 08:00:00 EDNA chapa [facility] 2021-12-02 2021-12-02 Outpatient Keyanna ECHEVARRIA [facility] [id number] Univers 11:20:00 11:20:00 WILIAN itetienne [facility] 2021-12-01 2021-12-01 Outpatient R RUFINA [facility] [id number] Univers 16:20:00 16:20:00 JEAN ity [facility] 2021-12-01 2021-12-01 Outpatient R RUFINA [facility] [id number] Univers 16:20:00 16:20:00 [facility] 2021-11-21 Ancillary Natalie Hsu [facility] 1 .2.840.114 [id number] Univers 10:15:00 16:55:48 Visit Edna Rehman 350.1.13.10 [place] [phone] Co dicmirtha NAL 179 [facility] 2021-11-21 2021-11-21 Outpatient Keyanna REHMAN [facility] [id number] Univers 13:00:00 13:00:00 EDNA sammi [facility] 2021-11-21 2021-11-21 Outpatient R ORI [facility] [id number] Univers 10:15:00 10:15:00 EDNA servinetienne [facility] 2021-11-19 2021-11-19 Outpatient Keyanna BOWLES [facility] [id number] Univers 15:51:24 23:59:00 CHASE chapa [facility] 2021-11-19 2021-11-19 [facility] 1.2.840.114 [id number] Univers 15:50:00 23:59:00 Encounter Chase A SPECIALTY [id number] [id number] [phone] Co dical VICTORY 809 [facility] 2021-11-19 2021-11-19 Office [facility] 1.2.840.114 [id number] Univers 15:20:00 17:06:26 Visit Chase A SPECIAL[facility] [id number] [id number] [phone] Co dical VICTORY 198 [facility] 2021-11-19 2021-11-19 Outpatient R KYLE [facility] [id number] Univers 15:20:00 17:06:26 CHASE chapa [facility] 2021-11-19 2021-11-19 Outpatient R KYLE [facility] [id number] Univers 15:20:00 15:20:00 CHASE garethetienne [facility] 2021-11-18 2021-11-18 Outpatient R LAMONT [facility] [id number] Univers 18:06:06 23:59:00 RENE jackson [facility] 2021-11-18 2021-11-18 Outpatient R LAMONT [facility] [id number] Univers 18:06:06 23:59:00 RENE jackson [facility] 2021-10-15 2021-10-15 Telephone [facility] [id number] Univers 00:00:00 00:00:00 Marino TINAJERO 350.1.13.10 ity of [facility] [place] [facility] [phone] [facility] AND [address] [facility] 2021-10-09 2021-10-09 Outpatient R WILFRID [facility] [id number] Univers 08:15:00 09:03:47 MARINO chapa [facility] 2021-10-09 2021-10-09 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, 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 [facility] 1.2.840.114 [id number] Univers 08:15:00 08:30:00 Visit Marino Yuen 350.1.13.10 ity of [place] [facility] [phone] Co dical NAL 353 [facility] 2021-10-09 2021-10-09 Orders Doctor DAVIAN 1.2.840.114 [id number] Univers 00:00:00 00:00:00 Only Unassigned, ALVARO 350.1.13.10 ity of [place] [facility] 4.2.7.2.686 Roger as [phone] [facility] [address] 2021-10-08 2021-10-08 [facility] 1.2.840.114 [id number] Univers 09:30:00 10:25:30 Visit Marino Colon MULTISPEC 350.1.13.10 [place] CENTER [phone] [facility] AND [address] [facility] 2021-10-08 2021-10-08 Outpatient R WILFRID [facility] [id number] Univers 09:30:00 10:25:30 MARINO ity [facility] 2021-10-08 2021-10-08 Outpatient R WILFRID [facility] [id number] Univers 09:30:00 09:30:00 MARINO ity [facility] 2021-10-05 2021-10-05 Castillo Parks [facility] 1.2.840.114 [id number] Univers 00:00:00 00:00:00 Jakob SPECIALTY 350.1.13.10 ity of [place] AT [phone] Co juve ARREDONDO [address] [place] [address] 2021-10-03 2021-10-03 Castillo Parks IDMABEL 1.2.840.114 [id number] Univers 00:00:00 00:00:00 Jakob SPECIALTY 350.1.13.10 ity of [place] [phone] Co juve ARREDONDO [address] [place] [address] 2021-10-03 2021-10-03 Castillo Yuen IDMABEL 1.2.840.114 [id number] Univers 00:00:00 00:00:00 Marino Colon MULTISPEC 350.1.13.10 [place] [id number] [facility] AND [address] [facility] 2021-09-26 2021-09-26 Castillo Yuen IDMABEL 1.2.840.114 [id number] Univers 00:00:00 00:00:00 Marino D MULTISPEC 350.1.13.10 [place]2.[place] C[place] [id number] [facility] AND [address] [facility] 2021-08-24 2021-08-24 Outpatient R WILFRID [facility] [id number] Univers 15:00:00 15:00:00 MARINO itetienne [facility] 2021-08-22 2021-08-22 Outpatient R WILFRID [facility] [id number] Univers 08:30:00 08:30:00 MARINO itetienne [facility] 2021-08-22 2021-08-22 Outpatient R WILFRID [facility] [id number] Univers 08:00:00 08:00:00 MARINO itetienne [facility] 2021-08-20 2021-08-20 [facility] 1.2.853.396 [id number] Univers 00:00:00 00:00:00 Jakob PRIMARY 350.1.13.10 it y of [place] 4[place]2.[place].2.[place] [facility] [phone] [facility] [address] [place] 2021-08-20 2021-08-20 Refill Collin Beasley [facility] 1.2.840.114 [id number] Univers 00:00:00 00:00:00 Nick MULTISPEC 350.1.13.10 [place] [phone] [address] [facility]ES [facility]IC 2021-08-20 2021-08-20 Castillo Parks [facility] 1.2.840.114 [id number] Univers 00:00:00 00:00:00 Jakob SPECIALTY 350.1.13.10 ity of [place]2.[place].2.[place] AT [phone] [place] 024912 [facility] 2021-06-27 2021-06-27 [facility] 1.2.840.114 [id number] Univers 00:00:00 00:00:00 Marino Colon MULTISPEC 350.1.13.10 [place] [id number] [address] [facility] 2021-06-15 2021-06-15 Castillo Brito [facility] 1.2.840.114 [id number] Univers 00:00:00 00:00:00 Vipin C PRIMARY 350.1.13.10 i ty of CARE 4.2.7.2.686 [facility] [phone] Co dical [address] 2021-06-10 2021-06-10 Outpatient PRIV PRIV [id number] 3-2 [facility] 00:00:00 00:00:00 [id number] Medica l 2021-06-10 2021-06-10 Outpatient PRIV PRIV [id number] 3-2 [facility] 00:00:00 00:00:00 [id number] Medica l 2021-05-18 2021-05-18 Castillo Parks [facility] 1.2.840.114 [id number] Univers 00:00:00 00:00:00 Jakob SPECIALTY 350.1.13.10 ity of [place] [facility] 4.2.7.2.686 [facility] AT [phone] [place] 786462 [facility] 2021-05-13 2021-05-13 Castillo Yuen [facility] 1.2.840.114 [id number] Univers 00:00:00 00:00:00 Marino Colon MULTISPEC 350.1.13.10 ity of [place] 4.2.7.2.686 [facility] [id number] [address] DI[facility]ETES [facility]INIC 2021-05-08 2021-05-08 Office Corby Iraheta [facility] 1.2.840.114 [id number] Univers 14:02:16 14:32:16 Visit Peace Hilario MULTISPEC 350.1.13.10 ity of [place] IALTY 4.2.7.2.68 6 [facility] [phone] [address] [facility]ETES CLINIC 2021-05-08 2021-05-08 Outpatient R [facility] [id number] Univers 14:00:00 14:00:00 ity of [facility] 2021-03-01 2021-03-01 [facility] [id number] Univers 00:00:00 00:00:00 MARINO ity of [facility] 2021-02-23 2021-02-23 [facility] [id number] Univers 16:30:00 16:30:00 MARINO [facility] 2021-02-22 2021-02-22 Outpatient R NIRAV [facility] [id number] Univers 09:00:00 09:00:00 ANDREW [facility] 2021-01-03 2021-01-03 Outpatient R AYOUB [facility] [id number] Univers 19:00:00 19:00:00 DAVIAN [facility] 2020-11-27 2020-11-27 Outpatient R PAULA NUNO [facility] [id number] Univers 14:00:00 14:00:00 [facility] 2020-10-19 2020-10-19 Outpatient R WILFRID [facility] [id number] Univers 08:00:00 08:00:00 MARINO [facility] 2020-10-18 2020-10-18 Outpatient R WILFRID [facility] [id number] Univers 16:30:00 16:30:00 MARINO [facility] 2020-10-11 2020-10-11 Outpatient R CHARLY [facility] [id number] Univers 09:30:00 09:30:00 JAKOB [facility] 2020-10-01 2020-10-01 Outpatient R CHINO, [facility] [id number] Univers 14:30:00 14:30:00 TRACEY [facility] 2020-09-13 2020-09-13 Outpatient R CHARLY [facility] [id number] Univers 09:30:00 09:30:00 JAKOB [facility] 2020-08-22 2020-08-22 Outpatient R CRISS [facility] [id number] Univers 16:20:00 16:20:00 TOM [facility] 2020-08-20 2020-08-20 Outpatient R WALE [facility] [id number] Univers 09:20:00 09:20:00 WILIAN [facility] 2020-08-16 2020-08-16 Outpatient R [facility] [id number] Univers 09:50:00 09:50:00 [facility] 2020-06-23 2020-06-23 Outpatient R VI [facility] [id number] Univers 13:15:00 13:15:00 JOLENE [facility] 2020-06-04 2020-06-04 Outpatient R [facility] [id number] Univers 15:15:00 15:15:00 [facility] 2020-06-04 2020-06-04 Outpatient R UNKNOWN, [facility] [id number] Univers 14:15:00 14:15:00 ATTENDING [facility] 2020-05-01 2020-05-01 Outpatient R CARITO [facility] [id number] Univers 15:10:00 15:10:00 JAKOB [facility] 2020-03-06 2020-03-06 Outpatient R IVETT [facility] [id number] Univers 09:50:00 09:50:00 ERMIAS [facility] 2020-01-21 2020-01-21 Outpatient R CARITO [facility] [id number] Univers 10:15:00 10:15:00 JAKOB [facility] 2020-01-19 2020-01-19 Outpatient R COLLIN BEASLEY [facility] [id number] Univers 11:30:00 11:30:00 [facility] 2019-12-23 2019-12-23 Outpatient R COLLIN BEASLEY [facility] [id number] Univers 10:00:00 10:00:00 [facility] 2019-12-22 2019-12-22 Outpatient R CARITO [facility] [id number] Univers 08:15:00 08:15:00 JAKOB [facility] 2019-12-09 2019-12-09 Outpatient R CARITO [facility] [id number] Univers 15:45:00 15:45:00 JAKOB [facility] 2019-12-08 2019-12-08 Outpatient R TJ [facility] [id number] Univers 08:00:00 08:00:00 JOMAR [facility] 2019-12-07 2019-12-07 Outpatient R BELLA [facility] [id number] Univers 21:15:00 21:15:00 JAKOB chapa [facility] 2019-12-06 2019-12-06 Outpatient R [facility] [id number] Univers 19:00:00 19:00:00 sammi [facility] 2019-11-30 2019-11-30 Outpatient Keyanna LEBRON [facility] [id number] Univers 09:15:00 09:15:00 JOLENE chapa [facility] 2019-11-23 2019-11-23 Outpatient Keyanna LEBRON [facility] [id number] Univers 13:15:00 13:15:00 JOLENE [facility] 2019-09-02 2019-09-05 Inpatient X ABU [facility] JODI [id number] Univers 16:02:51 10:50:00 gareth SINGHjeff WILLIAMSON [facility] 2019-01-11 2019-01-11 Emergency E MHBL MHBL [id number] MHBL 23:33:00 23:33:00 2017-12-23 2017-12-23 [facility] [id number] 15:29:00 15:29:00 [facility] 2017-07-30 2017-07-30 Outpatient [facility] MED [id number] 12:09:00 12:09:00 [facility] 2017-07-09 2017-07-09 Outpatient [facility] [id number] 00:01:00 00:01:00 [facility] 2017-06-17 2017-06-17 Outpatient [facility] MED [id number] 18:46:00 18:46:00 [facility] 2017-06-08 2017-06-08 Outpatient [facility] MED [id number] 00:01:00 00:01:00 [facility] 2017-06-06 2017-06-06 Outpatient [facility] MED [id number] 21:11:00 21:11:00 [facility] Results Test Description Test Time Test Comments Results Result Comments Source POCT URINALYSIS W SPECIFIC GRAVITY 2022-11-18 18:11:00 Test Item Value Reference Range Interpretation Comme nts POCT U SP GRAV (test code = 3255) 1.020 mg/dl 1.005-1.025 POCT PH U (test code = 3254) 5 mg/dl 5-8 POCT U LEUK EST (test code = 3263) ++ Negative - Negative POCT U NIT (test code = 3262) neg Negative - Negative POCT U PROT (test code = 3259) trace Negative - Negative POCT U GLU (test code = 3256) neg Negative - Negative POCT U KETONE (test code = 3258) neg Negative - Negative POCT U UROBILI (test code = 3260) neg 0.2-1 POCT U BILI (test code = 3261) neg Negative - Negative POCT U BLD (test code = 3257) 250 Negative - Negative POCT U COLOR (test code = 3266) dark POCT U APPEAR (test code = 3267) cloudy Lab Interpretation (test code = 95541-9) [facility]normal [facility] [id number] 23:18:52 Test Item Value Reference Range Interpretation Comments TROPONIN I (test code = 0.005 ng/mL <=0.034 [id number]) ROBERTA (test code = ROBERTA) Reference (Normal) Range (defined by the 99th percentile reference limit): <= 0.034 ng/mL Note: Cardiac troponin begins to rise 3-4 hours after the onset of ischemia. Repeat in 4-6 hours if the sample was drawn within 3-4 hours of the onset of the symptom and found normal. Diagnosis of myocardial injury is made with acute changes in cTn concentrations with at least one serial sample above the 99th percentile upper reference limit (URL), taken together with the patient's clinical presentation. Biotin has been reported to cause a negative bias, interpret results relative to patient's use of biotin. Lab Interpretation Normal (test code = 03903-8) [facility]MINAL [id number] 23:18:52 Test Item Value Reference Range Interpretation Comments NT-proBNP (test code = 113 pg/mL <=125 9987953126) ROBERTA (test code = ROBERTA) Biotin has been reported to cause a negative bias, interpret results relative to patient's use of biotin. Lab Interpretation (test Normal code = 88300-4) [facility] Hospital[facility]. METABOLIC PANEL ([id number])2022-10-10 23:08:12 Test Item Value Reference Range Interpretation Comments NA (test code = 140 mmol/L 135-145 6021478911) K (test code = 5.0 mmol/L 3.5-5.0 0053649270) CL (test code = 106 mmol/L 98-108 8274501797) CO2 TOTAL (test code = 30 mmol/L 23-31 3529696042) AGAP (test code = 4 2-16 7319930516) BUN (test code = 8 mg/dL 7-23 3210975908) GLUCOSE (test code = 198 mg/dL 70-110 H 0067857047) CREATININE (test code = 0.61 mg/dL 0.50-1.04 5984746344) TOTAL BILI (test code = 0.4 mg/dL 0.1-1.8 3703056988) CALCIUM (test code = 8.4 mg/dL 8.6-10.6 L 5297429344) T PROTEIN (test code = 6.6 g/dL 6.3-8.2 9195964191) ALBUMIN (test code = 3.6 g/dL 3.5-5.0 1620470578) ALK PHOS (test code = 108 U/L 34-122 0508253386) ALTv (test code = 18 U/L 5-35 1742-6) AST(SGOT) (test code = 30 U/L 13-40 2024901352) eGFR (test code = 102.6 mL/min/1.73m2 1859747504) ROBERTA (test code = ROBERTA) Association of Glomerular Filtration Rate (GFR) and Staging of Kidney Disease* + --+ --+ ------+| GFR (mL/min/1.73 m2) ?| With Kidney Damage ?| ?Without Kidney Damage+ --------+ --------+ +| ?>90 ?| ?Stage one ?| ? Normal ?+ ---+ ---+ -------+| ?60-89 ?| ?Stage two ?| ? Decreased GFR ? + --+ --+ ------+| ?30-59 ?| ?Stage three ?| ? Stage three ? + --+ --+ ------+| ?15-29 ?| ?Stage four ? | ? Stage four ?+ ---+ ---+ -------+| ?<15 (or dialysis) ? ?| ?Stage five ? | ? Stage five ?+ ---+ ---+ -------+ *Each stage assumes the associated GFR level has been in effect for at least three months. ?Stages 1 to 5, with or without kidney disease, indicate chronic kidney disease. Notes: Determination of stages one and two (with eGFR >59mL/min/1.73 m2) requires estimation of kidney damage for at least three months as defined by structural or functional abnormalities of the kidney, manifested by either:Pathological abnormalities or Markers of kidney damage (including abnormalities in the composition of the blood or urine or abnormalities in imaging tests). Lab Interpretation Abnormal (test code = 01116-8) [facility] HospitalPROTHROMBIN TIME / [id number] 23:01:52 Test Item Value Reference Range Interpretation Comments PROTIME PATIENT (test 12.3 See_Comment [Auto mated message] code = 5964-2) The system wh ich generated this result transmitted ref erence range: 10.1 - 1 2.6 Seconds. The re ference range was not u sed to interpret this result as normal/abnor mal. INR (test code = 6301-6) 1.1 Nor mal INR <1.1; Warfarin Therap eutic range 2.0 to 3. 0 or 2.5 to 3.5, dep ending upon the indica tions. Lab Interpretation (test Normal code = 80108-3) [facility] HospitalCBC WITH [id number] 22:56:30 Test Item Value Reference Range Interpretation Comments WBC (test code = 5.66 See_Comment [Automated 4192-2) message] The sy stem which generated this result transmitted reference range : 4.30 - 11.10 10*3/?L. The reference range was not used to interpret this result as normal/abnormal . RBC (test code = 4.01 See_Comment [Automated 848-8) message] The sy stem which generated this result transmitted reference range : 3.93 - 5.25 10*6/?L. The reference range was not used to interpret this result as normal/abnormal . HGB (test code = 9.6 g/dL 11.6-15.0 L 718-7) HCT (test code = 32.3 % 35.7-45.2 L 4544-3) MCV (test code = 80.5 fL 80.6-95.5 L 787-2) MCH (test code = 23.9 pg 25.9-32.8 L 785-6) MCHC (test code = 29.7 g/dL 31.6-35.1 L 786-4) RDW-SD (test code = 48.6 fL 39.0-49.9 22548-5) RDW-CV (test code = 16.8 % 12.0-15.5 H 788-0) PLT (test code = 249 See_Comment [Automated 777-3) message] The sy stem which generated this result transmitted reference range : 166 - 358 10*3/ ?L. The reference r norbert was not used to interpret this result as normal/abnormal . MPV (test code = 11.4 fL 9.5-12.9 06767-7) NRBC/100 WBC (test 0.0 See_Comment [Automat ed code = 2705988448) message] The system which generated this result transmitted reference range : 0.0 - 10.0 /100 WBCs. The refer ence range was not u sed to interpret th is result as normal/abnormal . NRBC x10^3 (test code See_Comment [Auto mated = 5851256606) message] The s ystem which generated this result transmitted reference range : 10*3/?L. The reference range was not used to interpret this result as normal/abnormal . GRAN MAT (NEUT) % 53.2 % (test code = 770-8) IMM GRAN % (test code 0.00 % = 7343470123) LYMPH % (test code = 33.9 % 736-9) MONO % (test code = 9.4 % 5905-5) EOS % (test code = 3.0 % 713-8) BASO % (test code = 0.5 % 706-2) GRAN MAT x10^3(ANC) 3.01 10*3/uL 1.88-7.09 (test code = 2138926820) IMM GRAN x10^3 (test 0.00-0.06 code = 2302915952) LYMPH x10^3 (test code 1.92 10*3/uL 1.32-3.29 = 731-0) MONO x10^3 (test code 0.53 10*3/uL 0.33-0.92 = 742-7) EOS x10^3 (test code = 0.17 10*3/uL 0.03-0.39 711-2) BASO x10^3 (test code 0.03 10*3/uL 0.01-0.07 = 704-7) Lab Interpretation Abnormal (test code = 20906-3) [facility] HospitalLactic Acid Whole [id number] 22:55:04 Test Item Value Reference Range Interpretation Comments LACTIC ACID (test code = 1.12 mmol/L 0.50-2.20 8461197206) Lab Interpretation (test code = Normal 33605-0) [facility] W/AUTO [id number] 00:07:00 Test Item Value Reference Range Interpretation Comments [...] 27.0-31.0 L MEAN CELL HGB CONCETRATION (test 31.1 GM/DL 33.0-37.0 L code = MCHC) RED CELL DISTRIBUTION WIDTH CV 16.4 % 11.5-14.5 H (test code = RDW) PLATELET COUNT (test code = PLT) 282 K/mm3 150-400 N MEAN PLATELET VOLUME (test code = 11.4 FL 8.8-13.1 N MPV) NEUTROPHIL % (test code = NT%) 64.3 % 40.0-76.0 N LYMPHOCYTE % (test code = LY%) 26.1 % 15.0-40.0 N MIXED % (test code = MX%) 9.6 % 3.0-15.0 N NEUTROPHIL # (test code = NT#) 3.6 K/uL 1.8-7.6 N LYMPHOCYTE # (test code = LY#) 1.5 K/uL 1.0-3.8 N MIXED # (test code = MX#) 0.5 k/mm3 0.1-0.8 N TROPONIN-I [id number] 20:42:00 Test Item Value Reference Range Interpretation Comments TROPONIN-I RAPID < 0.05 <0.05 Performed b y certified (test code = 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 LIVER [id number] 20:33:00 Test Item Value Reference Range Interpretation Comments TOTAL PROTEIN (test code 7.5 GM/DL 5.0-8.0 N Per formed by = PROT) certified opera tor at [facility] ed Ctr ALBUMIN (test code = 3.3 [...] 34 UNITS/L 25-125 N ALICIA) BASIC METABOLIC [id number] 20:21:00 Test Item Value Reference Range Interpretation [...] POCGLU) 93 MG/DL 70-110 N UA DIPSTICK [id number] 20:15:00 Test Item Value Reference Range Interpretation Comments UA GLUCOSE DIPSTIC POC NEGATIVE NEGATIVE (test code = GLUUP) UA BILIRUBIN DIPSTICK NEGATIVE NEGATIVE (test code = BILU) UA KETONE DIPSTICK POC NEGATIVE NEGATIVE (test code = KETUP) UA SPECIFIC GRAVITY (test 1.020 1.005-1.030 N code = SGU) UA BLOOD DIPSTIC POC NEGATIVE NEGATIVE Perform ed by (test code = BLUP) certified 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 at [facility] ed Ctr UA PH DIPSTIC POC (test 6 5.0-7.0 N code = PHUP) UA PROTEIN DIPSTICK POC NEGATIVE NEGATIVE (test code = DPROUP) UA UROBILINIOGEN QUAL 1+ 0.2-1.0 A (test code = UROQL) UA NITRITE DIPSTICK POC NEGATIVE Negative (test code = NITUP) UA LEUKOCYTE ESTERASE W Negative NEGATIVE REFLEX (test code = LEUUR) - CT ABD PELVIS W/O [id number] 00:00:00 [facility] KATFRANDY QUIROZ : 1970 Sex: FName: KAT AGUILAR FSED : 1970 Age/S: 52 / F [address] [facility] Unit #: [id number] Loc: Malik [place] [address] Phys: Josefa Suarez MD Acct: [id number] Dis Date: Status: REG ER PHONE #: Exam Date: 08/21/20222015 FAX #: Reason: r flank and epigastric pain EXAMS: CPT CODE: [id number] CT ABD PELVIS W/O CONT 22365 PROCEDURE INFORMATION: Exam: CT Abdomen And Pelvis Without Cont rast Exam date and time: 08/21/2022 8:05 PM [...] PM FINDINGS: ABDOMINAL ORGANS: No acute CT a bnormalities of the liver, spleen, pancreas or kidneys are detected. There is no CT evidence of acute renal collecting system obstruction or calcified renal collecting system stone. The 2 cm ovoid nodule in the right adrenal gland and the 13 mm ovoid nodule in the left adrenal gland demonstrate internal attenuation values diagnostic of adenoma. BILIARY: The patient is status post cholecystectomy. Dilatation of the common hepatic duct and common [...] retroperitoneal mass or enlarged retroperitoneal lymph nodes. PELVIS: The patient is status post hysterectomy. No adnexal masses or enlarged pelvic lymph nodes are noted. The bladder is underdistended however appears unremarkable. LOWER THORAX: The lung bases appear clear of acute disease. ADDITIONL FINDINGS: None. PAGE 1 Signed Report (CONTINUED) Name: KAT AGUILAR FSED : 1970 Age/S: 52 / F [address] [facility] Unit #: [id number] Loc: Malik Williamson [address] Phys: Josefa Suarez MD Acct: [id number] Dis Date: Status: REG ER PHONE #: Exam Date: 08/21/20222015 FAX #: Reason: r flank and epigastric pain EXAMS: CPT CODE: [id number] CT ABD PELVISW/O CONT 96650 (Continued) IMPRESSION: 1. Increased gas and stool in the colon without evidence of obstruction, diverticular disease or acute inflammatory wall thickening. 2. Status post cholecystectomy. Dilatation of the common bile duct likely represents post cholecystectomy ectasia however no priorstudies are available to document stability. If there is clinical or laboratory evidence of common duct obstruction then MRCP or ERCP should be considered. 3. Bilateral adrenal adenomas for which no follow-up imaging is recommended. SL:131 at 2111 Reported and signed by: Daniel Morrison M.D. CC: Collin Beasley MD; Josefa Suarez MD Technologist:Marisa Kline RT(R)(CT) CTDI: DLP: Trnscb Date/Time: 08/21/2022 (28 08) t.EMILIEM Orig Print D/T: S: 08/21/2022 (2111) PAGE 2 Signed ReportPOCT URINALYSIS W SPECIFIC [id number] 17:27:00 Test Item Value Reference Range Interpretation [...] controls Lab Interpretation Abnormal (test code = 84593-3) [facility]- XR KNEE 1 OR 2 V [id number] 15:41:00 [facility] 1970 Sex: F Patient Name: KAT AGUILAR Unit No: [id number] EXAMS: CPT CODE: [id number] XR KNEE 1 OR 2 [place] [address] IMAGES PROVIDED: 2 FINDINGS: Postoperative changes from left total knee arthoplasty demonstrated without evidence of immediate complication. No acute fracture is visualized. IMPRESSION: Postoperativeexam as above. at 1541 Reported and signed by: Lexa Benitez M.D. CC: Eulalia Hilario MD Technologist: SHELIA SILVA (RT.R) Transcribed D/ (1541) [facility] NAME: KAT AGUILAR [id number] PHYS: PATAN. Eulalia Hilario MD : 1970 AGE: 51 SEX: F [place] [address] LOC: Y.O20 A PHONE #: [phone] EXAM DATE: 01/18/2022 STATUS: ADM IN FAX #: [phone] RAD #: D/C DT PAGE 1 Signed Report Patient Name: KAT AGUILAR Unit No: [id number] EXAMS:CPT CODE: [id number] XR KNEE 1 OR 2 V LT 37098 <Continued> Orig Print D/T: S: 01/18/2022 (1545)[facility] NAME: KAT AGUILAR [address] [facility] PHYS: PATAN.06 - Eulalia Hilario MD : 1970 AGE: 51 SEX: F [place] [address] LOC: Y.O20 A PHONE #: [phone] EXAM DATE: 01/18/2022 STATUS: ADM IN FAX #: [phone] RAD #: D/C DT PAGE 2 Signed [...] considered for these patients.DONE A T: [facility] [address], [place], [place] [address] GLYCOSYLATED HEMOGLOBIN (HA1C)2022-01-01 16:16:00 [...] be considered for these patients. COMPREHENSIVE METABOLIC [id number] 13:37:00 Test Item Value Reference Range Interpretation [...] RATE (test code = GFR) mL/mi n/1.73 m8Cjwgblgtv Range:Healthy Adults >90 mL/min/1.73 m2 For Chronic [...] N TOTAL (test code = ALKP) PROTHROMBIN [id number] 13:18:00 Test Item Value Reference Range Interpretation Comments PROTHROMBIN TIME 12.2 secs 9.7-12.5 N Please note new normal PATIENT (test code = range. PTP) INTERNATIONAL NORMAL 1.10 <2.0 RECOMME NDED THERAPEUTIC RATIO (test code = RANGE FOR ORAL INR) ANTICOAGULANTTR EATMENT: CONDITION INRPr ophylaxis of venous throm bosis in 2.0 - 3.0 high- risk medical or surg ical patientsTreatme nt of venous thrombos is 2.0 - 3.0Prevention o f embolism 2.0 - 3.0Prevention o f recurrent embol ism, or 3.0 - 4.5 patie nts with mechanical pros thetic intravascular v rico IS PATIENT ON ANTICOAGULANTS ? NHas Lab been notified if Patient is on Heparin Drip? NOIf Yes, orderCBC, OCCULT BLOOD, PT every other day NTHROMBOPLASTIN TIME [id number] 13:18:00 Test Item Value Reference Range Interpretation [...] 0-0 N code = NRBC) Basic Metabolic [id number] 06:39:55 Test Item Value Reference Range Interpretation [...] 8.9 mg/dL 8.3-10.5 Calcium Level) Basic Metabolic [id number] 06:39:55 Test Item Value Reference Range Interpretation [...] National Kidney Foundation, http://nkdep.ni h.gov Basic Metabolic [id number] 06:39:55 Test Item Value Reference Range Interpretation [...] ag e have not been validated by [facility] MDRD study and should be interpreted [...] ag e have not been validated by [facility] MDRD study and should be interpreted wit h caution. eGFR R esult Interpretation: eGFR > or = 60 is in the Normal RangeeGF R < 60 may mean kid fadumo diseaseeGFR < 1 5 may mean kidney failure Rang es recommended by the National Kidney Foundation, http://nkdep.ni h.gov Complete Blood Count with Zvbcgjpqpqbf8777-91-13 06:13:20 Test Item Value Reference Range Interpretation [...] code = IPF) 0 % N Automated [id number] 06:13:20 Test Item Value Reference Range Interpretation Comments Neutro Auto (test code = Neutro 52.5 % 36.0-70.0 Auto) Lymph Auto (test code = Lymph Auto) 37.2 % 12.0-44.0 [place] Auto (test code = [place] Auto) 7.6 % 0.0-11.0 Eos, Auto (test code = Eos, Auto) 2.1 % 0.0-7.0 Basophil Auto (test code = Basophil 0.4 % 0.0-2.0 Auto) Neutro Absolute (test code = Neutro 2.5 x10 1.6-7.4 Absolute) Lymph Absolute (test code = Lymph 1.80 x10 .50-4.60 Absolute) [place] Absolute (test code = [place] .37 x10 .00-1.20 Absolute) Eos Absolute (test code = Eos 0.10 x10 0.00-0.74 Absolute) Baso Absolute (test code = Baso 0.02 x10 0.00-0.21 Absolute) IG [id number] 06:13:20 Test Item Value Reference Range Interpretation Comments IG (test code = IG) 0.2 % 0.0-5.0 IG Abs (test code = IG Abs) [address] Abdomen and Pelvis w/o Hvjhpwjs8011-73-13 19:36:37Patient: KAT AGUILAR Date/Time08/11/2019 18:35 CSTReason for Examabd pain s/p g astric bypass;Other (please specify)ReportCT SCAN OF THE ABDOMEN AND PELVIS WITHOUT CONTRASTDictation Location: [id number] HISTORY: Abdominal pain status post gastric bypassTECHNIQUE: [...] Signature): 08/11/2019 7:36 pmXR Chest 1 View [id number] 18:54:38Patient: KAT AGUILAR Date/Time08/11/2019 18:39 CSTReason for ExamChest painReportCHEST X-RAY 1 VIEWDictation Location: [id number] HISTORY: Chest painTechnique:A single frontal view of [...] Maria VSigned (Electronic Signature): 08/11/2019 6:54 pmLipase Etofi7345-40-06 17:36:02 Test Item Value Reference Range Interpretation Comments Lipase Level (test code = Lipase 20 U/L 13-60 Level) Comprehensive Metabolic Rcxgl1999-06-74 17:36:01 Test Item Value Reference Range Interpretation [...] A/G 1.6 ratio N Ratio) Comprehensive Metabolic [id number] 17:36:01 Test Item Value Reference Range Interpretation [...] National Kidney Foundation, http://nkdep.ni h.gov Comprehensive Metabolic [id number] 17:36:01 Test Item Value Reference Range Interpretation [...] ag e have not been validated by [facility] MDRD study and should be interpreted [...] ag e have not been validated by [facility] MDRD study and should be interpreted wit h caution. eGFR R esult Interpretation: eGFR > or = 60 is in the Normal RangeeGF R < 60 may mean kid fadumo diseaseeGFR < 1 5 may mean kidney failure Rang es recommended by the National Kidney Foundation, http://nkdep.ni h.gov Complete Blood Count with Hjhgfspvonls7875-58-51 17:32:54 Test Item Value Reference Range Interpretation [...] code = IPF) 0 % N Automated Ffvumgmhtqvu9303-97-76 17:32:54 Test Item Value Reference Range Interpretation Comments Neutro Auto (test code = Neutro 54.7 % 36.0-70.0 Auto) Lymph Auto (test code = Lymph Auto) 36.0 % 12.0-44.0 [place] Auto (test code = [place] Auto) 6.8 % 0.0-11.0 Eos, Auto (test code = Eos, Auto) 1.8 % 0.0-7.0 Basophil Auto (test code = Basophil 0.4 % 0.0-2.0 Auto) Neutro Absolute (test code = Neutro 3.9 x10 1.6-7.4 Absolute) Lymph Absolute (test code = Lymph 2.55 x10 .50-4.60 Absolute) [place] Absolute (test code = [place] .48 x10 .00-1.20 Absolute) Eos Absolute (test code = Eos 0.13 x10 0.00-0.74 Absolute) Baso Absolute (test code = Baso 0.03 x10 0.00-0.21 Absolute) IG [id number] 17:32:54 Test Item Value Reference Range Interpretation Comments IG (test code = IG) 0.3 % 0.0-5.0 IG Abs (test code = IG Abs) 0 x10 N POC [id number] 18:09:54 Test Item Value Reference Range Interpretation Comments Glucose POC (test 105 mg/dL 70-115 If you con optical effects layout person your code = Glucose POC) patient critically ill, the Hermelinda-Accu Check Infrom II meter should not be used for Glucose determination. Draw a venous Glucose and send to the main Lab for analysis. XR Chest 1 View Yowiaei3051-13-18 17:13:03Patient: CARLEE AGUILAR Date/Time02/18/2019 17:10 CDTReason for ExamFeverReportCHEST 1 VIEWCLINICAL [...] 02/18/2019 5:13 pmCT Abdomen and Pelvis w/o Nexkiydy6613-95-02 16:07:13Patient: CARLEE AGUILAR Date/Time02/18/2019 15:54 CDTReason for ExamAbdominalpainReportEXAM: CT ABDOMEN [...] gastric bypass. No bowel obstruction. Normal appendix.LOCATION: U22Mxem CT exam was performed according to our [...] A/G 1.7 ratio N Ratio) Comprehensive Metabolic Ogeyo2076-99-30 12:49:45 Test Item Value Reference Range Interpretation [...] National Kidney Foundation, http://nkdep.ni h.gov Comprehensive Metabolic [id number] 12:49:45 Test Item Value Reference Range Interpretation [...] ag e have not been validated by [facility] MDRD study and should be interpreted [...] ag e have not been validated by [facility] MDRD study and should be interpreted wit h caution. eGFR R esult Interpretation: eGFR > or = 60 is in the Normal RangeeGF R < 60 may mean kid fadumo diseaseeGFR < 1 5 may mean kidney failure Rang es recommended by the National Kidney Foundation, http://nkdep.ni h.gov Troponin [id number] 12:39:41 Test Item Value Reference Range Interpretation [...] chronic myocard ial injury. Prothrombin Time and [id number] 12:35:43 Test Item Value Reference Range Interpretation Comments Prothrombin Time (test code = 12.5 seconds 9.8-13.4 Prothrombin Time) INR (test code = INR) 1.1 ratio 0.6-1.2 Partial Thromboplastin [id number] 12:35:43 Test Item Value Reference Range Interpretation Comments Partial Thromboplastin Time 33.30 seconds 24.39-37.25 (test code = Partial Thromboplastin Time) Lipase Ouhym9585-88-05 12:33:48 Test Item Value Reference Range Interpretation Comments Lipase Level (test code = Lipase 19 U/L 13-60 Level) Automated [id number] 12:26:00 Test Item Value Reference Range Interpretation Comments Neutro Auto (test code = Neutro 84.1 % 36.0-70.0 H Auto) Lymph Auto (test code = Lymph Auto) 9.6 % 12.0-44.0 L [place] Auto (test code = [place] Auto) 5.4 % 0.0-11.0 Eos, Auto (test code = Eos, Auto) 0.6 % 0.0-7.0 Basophil Auto (test code = Basophil 0.2 % 0.0-2.0 Auto) Neutro Absolute (test code = Neutro 8.0 x10 1.6-7.4 H Absolute) Lymph Absolute (test code = Lymph .92 x10 .50-4.60 Absolute) [place] Absolute (test code = [place] .52 x10 .00-1.20 Absolute) Eos Absolute (test code = Eos 0.06 x10 0.00-0.74 Absolute) Baso Absolute (test code = Baso 0.02 x10 0.00-0.21 Absolute) IG [id number] 12:26:00 Test Item Value Reference Range Interpretation Comments IG (test code = IG) 0.1 % 0.0-5.0 IG Abs (test code = IG Abs) 0 x10 N Complete Blood Count with Nqnmgiylbeev4977-70-40 12:25:59 Test Item Value Reference Range Interpretation [...] N NRBC Abs) Urinalysis with Culture, if mysgpirfm2973-49-34 12:25:24 Test Item Value Reference Range Interpretation [...] Ind?) rule GL_SJM_UA_MICRO _IN D HCG Qualitative Bfvob0812-97-41 12:25:09 Test Item Value Reference Range Interpretation [...] 72 hours. Lot # (test code = [id number] N Lot #) Expiration Dt (test 07/08/2020 N code = Expiration Dt) Neg Control (test Negative code = Neg Control) Pos Control (test Positive code = Pos Control) Internal QC (test Acceptable code = Internal QC) TROPONIN [id number] 09:14:00 Test Item Value Reference Range Interpretation [...] CT, CHEST WITH IV CONTRAST- PE TEST [id number] 08:15:00Reason for exam:- >CHEST PAINIs the patient [...] effusion. No thoracic aortic aneurysm or dissection. Nopulmonary arterial filling defect. Patent central airways. No pleural effusion or pneumothorax. Calcified granuloma within the right lower lobe is consistent with previous granulomatous disease. The lungs are otherwise clear. Partially imaged changes of prior gastric bypass and cholecystectomy. No aggressive osseous lesion. Impression:No evidence of pulmonary embolus. No additional acute findings in the chest. Signed: Storm Awan MDReport Verified Date/Time: 02/12/2019 08:15:11 Reading Location:[facility] Diagnostic Imaging Reading Room - [place] [address] Electronically signed by: STORM AWAN MD on02/12/2019 08:15 AMB-TYPE NATRIURETIC FACTOR (BNP)2019-02-12 07:13:00 Test Item Value Reference Range Interpretation Comments B-TYPE NATRIURETIC PEPTIDE (BEAKER) 23 pg/mL 0-100 (test code = 700) TROPONIN [id number] 07:13:00 Test Item Value Reference Range Interpretation [...] acute neurological disease, and persistent tachyarrhythmia.BASIC METABOLIC [id number] 07:09:00 Test Item Value Reference Range Interpretation [...] m DATA TO CALCULA TE ESTIMATED GFR. [id number] 07:07:00 Test Item Value Reference Range Interpretation Comments MAGNESIUM (BEAKER) 2.3 mg/dL 1.6-2.6 Specimen slightly (test code = 627) hemolyzed CREATINE KINASE (CK)2019-02-12 07:07:00 Test Item Value Reference Range Interpretation Comments CREATINE KINASE TOTAL (BEAKER) (test 64 U/L 29-200 code = 380) PT/[id number] 06:43:00 Test Item Value Reference Range Interpretation [...] mechanical heart valves.CBC W/PLT COUNT & AUTO [id number] 06:37:00 Test Item Value Reference Range Interpretation [...] = 2801) RAD, CHEST, 1 VIEW, NON [id number] 05:59:00Reason for exam:->CHEST PAINIs the patient ?->UnknownFINAL REPORT Chest, 1 view. History: Chest pain Comparison: None available. Findings: The cardiomediastinal silhouette and pulmonary vasculature are within normal limits for a portable exam. The lungs are clear without evidence of consolidation or effusion. The soft tissues and osseous structures are intact. IMPRESSION: No acute cardiopulmonary abnormality. 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 at [facility] [id number] 16:41:00 Test Item Value Reference Range Interpretation Comments GLUBED (test code = 123 MG/DL 70-110 H Performe d by certified GLUBED) 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 at [facility] - MRI L-SPINE W/O [id number] 13:50:00 FAX: Collin Butler MD [phone] [place]: St: [facility] FAX: Nichole Orozco MD [phone] FAX: Jocelin Jones MD [phone] Name: CARLEE AGUILAR [facility] : 1970 Age/S: 48/F [address] [place] [address] Unit #: [id number] Loc: [address] [address] Phys: Jocelin Jones MD Acct: [id number] Dis Date: Status: ADMIN PHONE #: [phone] Exam Date: 01/19/2019 1343 FAX #: [phone] Reason: radiculopathy EXAMS: CPT CODE: [id number] MRI L-SPINE W/O CONT 03620 MRI lumbar spine without contrast 01/19/2019 HISTORY: Radiculopathy PROCEDURE: Multiplanar multisequence imaging of the lumbar spine is performed withoutcontrast No prior exams are available for comparison FINDINGS: There is normal alignment and curvature of the lumbar spine. Vertebral body heights are maintained. No aggressive bone marrow abnormality is present. The conus medullaris ends at L1 1-2. No nerve root clumping is present. At L1-2, no HNP,canal stenosis, or neural foraminal narrowing is present. At L2-3, no HNP, canal stenosis, or neuralforaminal narrowing is present. At L3-4, no HNP, canal stenosis, or neural foraminal narrowing is present. There is mild bilateral facet hypertrophy and ligamentum flavum hypertrophy At L4-5, disc desiccation is noted. There is mild annular bulging and osteophytes. Moderate facet hypertrophy and ligamentum flavum hypertrophy is noted. There is fluid in the facet joints. There is mild bilateral neuralforaminal narrowing and mild spinal canal stenosis in [...] at L4-5. 3. No disc herniation. SL: [id number] PAGE 1 Signed Report (CONTINUED) FAX: Collin Butler MD [phone] [place]: St: ADM FAX: Nichole Orozco MD [phone]: Jocelin Jones MD [phone] Name: CARLEE AGUILAR [facility] [place] : 1970 Age/S: 48/F [address] [place] [address] Unit #: [id number] Loc: [place] [address] Phys: Jocelin Jones MD Acct: [id number] Dis Date: Status: ADM IN PHONE #: [phone] Exam Date: 01/19/2019 1343 FAX #: [phone] Reason: radiculopathy EXAMS: CPT CODE: [id number] MRI L-SPINE W/O CONT 80784 (Continued) at 1350 Reported and signed by: Chase Loya M.D. CC: Collin Beasley MD; Nichole Orozco MD; Jocelin Jones MD Technologist: Dale Good, RT(R)(CT)(MR) Trnflrd Date/Time/By: 01/19/2019 (1193) : By: [email or web address] Orig Print D/T: S: 01/19/2019 (4950) PAGE 2 Signed Report- MRI BRAIN W/O [id number] 13:47:00 FAX: Collin Butler MD [phone] [place]: St: ADM FAX: Nichole Orozco MD [phone] FAX: Jocelin Bowling MD [phone] Name: CARLEE AGUILAR [facility] [place] : 1970 Age/S: 48/F [address] [place] [address] Unit #: [id number] Loc: [place] [address] Phys: Jocelin Jones MD Acct: [id number] Dis Date: Status: ADM IN PHONE #: [phone] Exam Date: 01/19/2019 1343 FAX #: [phone] Reason: ms EXAMS: CPT CODE: [id number] MRI BRAIN W/O CONT 51728 MRI brain without contrast 01/19/2019 HISTORY: Weakness [...] present. IMPRESSION: No acute intracranial abnormality. SL: [id number] at 1347 Reported and signed by: Chase Loya M.D. CC: Collin Beasley MD; Nichole Orzoco MD; Joceiln Jones MD Technologist: RT Emil(R)(CT)(MR) Trnscrd Date/Time/By: 01/19/2019 (3672) : By:[email or web address] Orig Print D/T: S: 01/19/2019 (7598) PAGE 1 Signed ReportCBC W/AUTO [id number] 08:32:00 Test Item Value Reference Range Interpretation [...] REQUIRED (test code NO = MDIFF) VITAMIN [id number] 08:29:00 Test Item Value Reference Range Interpretation Comments VITAMIN B12 (test code = VITB12) 386 pg/mL 193-986 N C REACTIVE [id number] 07:54:00 Test Item Value Reference Range Interpretation Comments C REACTIVE PROTEIN (test code = < 2.9 MG/L 0.0-2.9 N CRP) SED RATE [id number] 07:52:00 Test Item Value Reference Range Interpretation Comments SED RATE WESTERGREN (test code = 2 mm/hr 0-20 N SEDW) BASIC METABOLIC [id number] 06:56:00 Test Item Value Reference Range Interpretation [...] total (including troponin done in ED)THYROID STIMULATING [id number] 06:56:00 Test Item Value Reference Range Interpretation Comments THYROID STIMULATING 0.18 0.42-5.47 L Results in HORMONE (test code = TSH) mi lli-International Units/mL COMMENTS: 3 troponins total (including troponin done in ED)[id number]-[id number] 06:56:00 Test Item Value Reference Range Interpretation Comments TROPONIN-I < 0.015 ng/mL 0.000-0.045 N Negative: <= 0 .045 Positive: (test code = >= 0.046 Corre lation with TROPI) serial results, other cardiac markers andclinical findings is nec essary to determine the clinicalsignifi cance of this result. Results using different metho dologies should not be c omparedto one another as arline titative results may jesús y by method. COMMENTS: 3 troponins total (including troponin done in ED)[id number] 12:21:00 Test Item Value Reference Range Interpretation [...] ED)- CT ANGIO CHEST 2019-01-18 10:39:00 Name: CARLEE AGUILAR [facility] : 1970 Age/S: 48 / F [address] [place] [address] Unit #: [id number] Loc: [place] [address] Phys: Dick Silverman MD Acct: [id number] Dis Date: Status: REG ER PHONE #: [phone] Exam Date: 01/18/2019 1018 FAX #: [phone] Reason: chest pain, SOB, elevated d-dimer EXAMS: CPT CODE: [id number] CT ANGIO CHEST 86144 PROCEDURE: CTA CHEST INDICATION: Chest pain. Shortness of breath. Elevated d- dimer. COMPARISON: Current CXR, CT chest October 2018, CTA chestFebruary 2018 TECHNIQUE: CTA of the pulmonary arteries was performed with 100 mL Isovue-370 intravenous contrast. Multiplanar and 3-D MIP angiographic reconstructions are reviewed. CT imaging performedat this location utilizes radiation dose optimization techniques [...] No pleural abnormality. UPPER ABDOMEN: Survey of visceramay be limited by early phase of contrast enhancement. No acute abnormality demonstrated. Postoperative changes of gastric bypass surgery. Cholecystectomy. MUSCULOSKELETAL: The skeleton is intact. IMPRESSION: 1. Negative for pulmonary embolism. 2. No acute abnormality demonstrated to account for the patient's PAGE 1 Signed Report (CONTINUED) Name: CARLEE AGUILAR [facility] [place] : 1970 Age/S:48 / F [address] [place] [address] Unit #: [id number] Loc: [place] [address] Phys: Dick Silverman MD Acct: [id number] Dis Date: Status: REG ER PHONE #: [phone] Exam Date: 01/18/2019 1018 FAX #: [phone] Reason: chest pain, SOB, elevated d-dimer EXAMS: CPT CODE: [id number] CT ANGIO CHEST 99408 (Continued) symptoms. SL: [id number] at 1039 Reported and signed by: Chuy Diaz M.D. CC: Collin Beasley MD; Dick Silverman MDTechnologist:Gio Foster, RT(R) CTDI: DLP: Trnscb Date/Time: 01/18/2019 (1039) tPATRICIAKWL OrigPrint D/T: S: 01/18/2019 (1042) PAGE 2 Signed RuuqwiU-[id number] 08:12:00 Test Item Value Reference Range Interpretation Comments D-DIMER (test 801 ng/mlFEU <=500 HH THROMBOSIS AN D/OR PULMONARY code = EMBOLISM AND TH E CLINICAL DDIMER) CUT- OFF VALUE FOR EXCLUSION (500 ng/mL FEU) OF THESE CONDITIONSIS VA LIDATED BY THE MANUFACTURE R OF THE METHOD. A NEGAT ELLYN D-DIMER RESULT WHEN COM BINED WITH A CLINICALASSESSM ENT OF LOW PRETEST PROBABI LITY HAS BEEN SHOWN TO HAVEA HIGH NEGATIVE PREDICTIVE VALU E OF DVT OR PE. D-DIMER MERRICK UES >500 ng/mL FEU ARE N OT DIAGNOSTIC FOR DVT, PEor D IC WITHOUT OTHER CONFIRMAT ORY TESTS AND APPROPRIATECLIN ICAL EUALUATIONS. HEPATIC FUNCTION [id number] 08:09:00 Test Item Value Reference Range Interpretation [...] 98 IUnit/L 20-125 N code = ALKP) [id number] 08:09:00 Test Item Value Reference Range Interpretation Comments LIPASE (test code = LIP) 88 IUnit/L 73-393 N CBC W/AUTO [id number] 08:03:00 Test Item Value Reference Range Interpretation [...] NO = MDIFF) - XR CHEST 2 [id number] 08:01:00 FAX: Collin Butler MD [phone] [place]: St: [facility] FAX: Dick Silverman MD [phone] --------- Name: CARLEE AGUILAR [facility] [place] : 1970 Age/S: 48/F [address] Unit #: [id number] Loc: [address] [place] [address] Phys: Dick Silverman MD Acct: [id number] Dis Date: Status: REG ER PHONE #: [phone] Exam Date: 01/18/2019757 FAX #: [phone] Reason: Chest Pain EXAMS: CPT CODE: [id number] XR CHEST 2 V 22387 2 view chest x-ray performed January 18, 2019 0751 hours. COMPARISON: October 24, 2018. CLINICAL HISTORY: Chest pain. DISCUSSION: 2 views/ films of the chest are submitted. Lungs are clear bilaterally. Cardiomediastinal silhouette is normal. Osseous structures are within normal limits. IMPRESSION: Normal Chest X-ray. at 0801 Reported andsigned by: Darling Tamayo M.D. 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 09An elevated tropon in value alone is not sexton fficient todiagnose a my ocardial infarction. Rat her, the patient sclinic al presentation (h istory, physical exam) and ECGshould be us ed in conjunction wit h troponin in thediagnosti c evaluation of s uspected myocardial infa rction. Aserial samplin g protocol is recommended to facilitate the identification of temporal changes in trop onin levels characteristic of IN. CHEMISTRY 8 [id number] 07:37:00 Test Item Value Reference Range Interpretation [...] ML/MIN (test code = GFRBED) CHEMISTRY 8 [id number] 07:37:00 Test Item Value Reference Range Interpretation Comments ISTAT-SODIUM (test 142 MMOL/L 134-147 N code = NAP) ISTAT-POTASSIUM (test 3.4 MMOL/L 3.4-5.0 N code = KP) ISTAT-CHLORIDE (test 103 MMOL/L 100-108 N Perform ed by code = CLP) certified opera tor at [facility] ed Ctr ISTAT CARBON DIOXIDE 24.0 mmol/L [...] (test code = GFRBED) - DUP VEIN UNI/[id number] 15:22:00 Name: CARLEE AGUILAR [facility] : 1970 Age/S: 48 / F [address] [place] [address] Unit #: [id number] Loc: [place] [address] Phys: Isis Estrada MD Acct: [id number] Dis Date: [id number]: DIS IN PHONE #: [phone] Exam Date: 10/29/2018 1431 FAX #: [phone] Reason: DVT EXAMS: CPT CODE: [id number] DUP VEIN UNI/LTD 92195 PROCEDURE: UNILATERAL UPPER EXTREMITY VENOUS ULTRASOUND INDICATION: 48-year-old female with acute chest pain and elevated d-dimer, right upper extremity pain and edema COMPARISON: None. TECHNIQUE: Sonographic evaluation of the right upper extremity veinswas performed using high resolution B-mode imaging, pulse and color Doppler imaging. FINDINGS: The internal jugular, subclavian, axillary, brachial, radial and ulnar veins are patent. The basilic and cephalic veins are patent. Normal venous waveforms. IMPRESSION: 1. No deep venous thrombosis identified in the right upper extremity. SL: [id number] at 1522 Reported and signed by: Candie Chanel M.D. CC: Isis Estrada MD Technologist: SHAKILA Alejandro)(BR) Trnscb Date/Time: 10/29/2018 (1522) [id number] Orig Print D/T: S: 10/29/2018 (1525) Probe: PAGE 1 Signed [id number] 11:53:00 Test Item Value Reference Range Interpretation Comments GLUBED (test code = 181 MG/DL 70-110 H Performe d by certified GLUBED) 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 at [facility] [id number] 09:07:00 Test Item Value Reference Range Interpretation Comments GLUBED (test code = 83 MG/DL 70-110 N Performe d by certified GLUBED) 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 at [facility] CBC W/AUTO [id number] 08:32:00 Test Item Value Reference Range Interpretation [...] (test code NO = MDIFF) COMPREHENSIVE METABOLIC [id number] 07:51:00 Test Item Value Reference Range Interpretation [...] 20-125 N TOTAL (test code = ALKP) [id number] 07:51:00 Test Item Value Reference Range Interpretation Comments MAGNESIUM (test code = MAG) 2.00 mg/dL 1.8-2.4 N [id number] 20:41:00 Test Item Value Reference Range Interpretation Comments GLUBED (test code = 91 MG/DL 70-110 N Performe d by certified GLUBED) 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 at [facility] [id number] 19:24:00 Test Item Value Reference Range Interpretation Comments GLUBED (test code = 158 MG/DL 70-110 H Performe d by certified GLUBED) 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 at [facility] [id number] 19:24:00 Test Item Value Reference Range Interpretation Comments GLUBED (test code = 106 MG/DL 70-110 N Performe d by certified GLUBED) 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 at [facility] URINALYSIS [id number] 11:17:00 Test Item Value Reference Range Interpretation [...] 0-5 /HPF NONE SEEN SQU) UA CULT [id number] 11:17:00 Test Item Value Reference Range Interpretation Comments UA CULTURE NEEDED? NO, WBC<10 Culture Chk Criteria not met, (test code = Criteria Urine Culture UACULT) cancelled. [id number] 09:11:00 Test Item Value Reference Range Interpretation Comments GLUBED (test code = 85 MG/DL 70-110 N Performe d by certified GLUBED) 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 at [facility] BASIC METABOLIC [id number] 08:13:00 Test Item Value Reference Range Interpretation [...] code = 8.9 mg/dL 8.0-10.5 N CA) [id number] 08:13:00 Test Item Value Reference Range Interpretation Comments MAGNESIUM (test code = MAG) 2.10 mg/dL 1.8-2.4 N CBC W/AUTO [id number] 07:40:00 Test Item Value Reference Range Interpretation [...] DIFF REQUIRED (test code NO = MDIFF) [id number] 23:54:00 Test Item Value Reference Range Interpretation Comments GLUBED (test code = 243 MG/DL 70-110 H Performe d by certified GLUBED) 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 at [facility] PROTHROMBIN [id number] 07:45:00 Test Item Value Reference Range Interpretation [...] (to prevent recurrent infar ct). THROMBOPLASTIN TIME [id number] 07:45:00 Test Item Value Reference Range Interpretation Comments THROMBOPLASTIN TIME 37.6 Seconds 25.0-39.5 N Therape utic Range: PARTIAL (test code = 61.8-83 .8 Sec PTT) Effective 10/06/2013 BASIC METABOLIC [id number] 07:34:00 Test Item Value Reference Range Interpretation [...] be done morning of Heart CathCBC W/AUTO [id number] 07:31:00 Test Item Value Reference Range Interpretation [...] COMMENTS: To be done morning of Heart [id number] 07:23:00 Test Item Value Reference Range Interpretation Comments GLUBED (test code = 73 MG/DL 70-110 N Performe d by certified GLUBED) 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 at [facility] [id number] 21:06:00 Test Item Value Reference Range Interpretation Comments GLUBED (test code = 145 MG/DL 70-110 H Performe d by certified GLUBED) 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 at [facility] [id number] 17:23:00 Test Item Value Reference Range Interpretation Comments [facility] (test code = 82 MG/DL 70-110 N Performe d by certified GLUBED) 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 at [facility] - XR UGI W/O [id number] 17:17:00 FAX: Keaton Campbell MD [phone] [place]: St: [facility] FAX: Scooby Wyman MD [phone] [facility]: 1970 [facility] 48[facility]F [address] [place] [address] Unit #: [id number] Loc: [address] [address]Sgdz: Keaton Campbell MD Acct: [id number] Dis Date: Status: ADM IN PHONE #: [phone] Exam Date: 10/26 1650 FAX #: [phone] Reason: hx of gastric bypass at another institution. C/ EXAMS: CPT CODE: [id number] XR UGI W/O KUB 61013 ESOPHAGRAM AND UPPER GI: HISTORY: History of gastric bypass. Now with inability to swallow solids. Vomiting with regurgitation. COMPARISON EXAM: Recent CT scans of the chest. No previous esophagrams or upper GIs for comparison. TECHNIQUE: The patient was given regularbarium to drink. Intermittent fluoroscopic observation was made and multiple spot films were obtained. A 14 mm barium tablet was given and imaging was performed at the gastroesophageal junction. TOTAL FLUOROSCOPY TIME: 3.6 minutes. REFERENCE AIR KERMA: 202 [...] not able to swallow additional liquid. IMPRESSION: 1.No evidence of obstruction to the flow of [...] Signed Report (CONTINUED) FAX: Keaton Campbell MD [phone] [place]: St: ADM FAX: Scooby Wyman MD [phone] Name: ROHIT AGUILAR : 1970 Age/S: 48/F [address] [place] [address] Unit #: [id number] Loc: [address] [address] Phys: Keaton Campbell MD Acct: [id number] Dis Date: Status: ADM IN PHONE #: [phone] Exam Date: 10/26/2018 1650 FAX #: [phone] Reason: hx of gastric bypass at another institution.C/ EXAMS: CPT CODE: [id number] XR UGI W/O KUB 43982 (Continued) at 1710 Reported and signed by: Fidel Gomez M.D. CC: Keaton Campbell MD; Scooby Ross MD Technologist: RT Alpesh(Keyanna) [facility] Date/Time/By: 10/26/2018 (6411) : By: Royal.AJJ Orig Print D/T: S: 10/26/2018 (0757) PAGE 2 Signed Report [id number] 15:16:00 Test Item Value Reference Range Interpretation Comments CREATININE (test code = CREAT) 0.7 mg/dL 0.6-1.3 [id number] 11:25:00 Test Item Value Reference Range Interpretation Comments GLUBED (test code = 87 MG/DL 70-110 N Performe d by certified GLUBED) 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 at [facility] BASIC METABOLIC [id number] 08:13:00 Test Item Value Reference Range Interpretation [...] code = 8.7 mg/dL 8.0-10.5 N CA) [id number] 08:08:00 Test Item Value Reference Range Interpretation Comments GLUBED (test code = 82 MG/DL 70-110 N Performe d by certified GLUBED) 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 at [facility] CBC W/AUTO [id number] 07:50:00 Test Item Value Reference Range Interpretation [...] DIFF REQUIRED (test code NO = MDIFF) [id number] 20:42:00 Test Item Value Reference Range Interpretation Comments GLUBED (test code = 97 MG/DL 70-110 N Performe d by certified GLUBED) 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 at [facility] [id number] 16:18:00 Test Item Value Reference Range Interpretation Comments GLUBED (test code = 94 MG/DL 70-110 N Performe d by certified GLUBED) 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 at [facility] - PULM VENT PERF [id number] 15:28:00 FAX: Scooby Wyman MD [phone] [place]: St: ADM FAX: Chris Galindo MD [phone] Name: CARLEE AGUILAR [facility] : 1970 Age/S: 48/F [address] [place] [address] Blvd Unit #: [id number] Loc: [address] [address] Phys: Chris Ny MD Acct: [id number] Dis Date: Status: ADM IN PHONE #: [phone] Exam Date: 10/25/2018 1516 FAX #: [phone] Reason: CP, HIGH D-DIMER, R/O PE EXAMS: CPT CODE: [id number] PULM VENT PERF IMAG 08006 NUCLEAR MEDICINE VENTILATION/PERFUSION LUNG SCAN HISTORY: Chest pain, elevatedd-dimer. Comparison is made to CT chest, also [...] embolus. SL:01 at 1528 Reported and signed by: Malachi Pham M.D. CC: Scooby Ross MD; Chris Ny MD Technologist: Jakob Sloan, RT(N)(CT)(PET) Trnscrd Date/Time/By: 10/25/2018 (1528) : By: Jannet Orig Print D/T: S: 10/25/2018 (15 31) PAGE 1 Signed [id number] 14:32:00 Test Item Value Reference Range Interpretation Comments GLUBED (test code = 107 MG/DL 70-110 N Performe d by certified GLUBED) 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 at [facility] [id number] 09:53:00 Test Item Value Reference Range Interpretation Comments GLUBED (test code = 108 MG/DL 70-110 N Performe d by certified GLUBED) 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 at [facility] BASIC METABOLIC [id number] 09:07:00 Test Item Value Reference Range Interpretation [...] total (including troponin done in ED)THYROID STIMULATING [id number] 09:07:00 Test Item Value Reference Range Interpretation Comments THYROID STIMULATING 2.30 0.42-5.47 N Results in HORMONE (test code = TSH) mi lli-International Units/mL 10/25/18 0630COMMENTS: 3 troponins total (including troponin done in ED) [id number] 09:07:00 Test Item Value Reference Range Interpretation [...] titative results may jesús y by method. 10/25/18 0630COMMENTS: 3 troponins total (including troponin done in ED)- CT CHEST W/O [id number] 09:04:00 Name: CARLEE AGUILAR [facility] : 1970 Age/S: 48 / F [address] [place] [address] Unit #: [id number] Loc: [place] [address] Phys: Scooby Ross MD Acct: [id number] Dis Date: Status: ADM IN PHONE #: [phone] Exam Date: 10/25/2018 0830 FAX #: [phone] Reason: pleurisy EXAMS: CPT CODE:[id number] CT CHEST W/O CONTRAST 35844 PROCEDURE: CT CHEST WITHOUT CONTRAST INDICATION: Chest [...] ABDOMEN: Patient is post gastric bypass and cholecystectomy. MUSCULOSKELETAL: Stable. IMPRESSION: 1. No acute intrathoracic abnormality demonstrated by noncontrast CT chest. 2. Previous gastric bypass and c holecystectomy. SL:01 at 0904 Reported and signed by: Malachi Pham M.D. PAGE 1 Signed Report (CONTINUED) Name: CARLEE AGUILAR : 1970 Age/S: 48 / F [address] [place] [address] Unit #: [id number] Loc: [place] [address] Phys: Scooby Ross MD Acct: [id number] Dis Date: Status: ADM IN PHONE #: [phone] Exam Date: 10/25/2018829 FAX #: [phone] Reason: pleurisy EXAMS: CPT CODE: [id number] CT CHEST W/O CONTRAST 66232 (Continued) CC: Scooby Ross MD Technologist:Leonie Azar, RT(R)(CT) CTDI:DLP: Trnscb Date/Time: 10/25/2018 (903) Jannet Orig Print D/T: S: 10/25/2018 (906) CTDI: DLP: PAGE 2 Signed EslprmZTAW9W%2018-10-25 08:45:00 Test Item Value Reference Range Interpretation Comments HGBA1C% (test code = HGBA1C%) 5.5 %A1C 4.8-6.0 N - DUP VEIN [id number] 08:40:00 Name: CARLEE AGUILAR : 1970 Age/S: 48 / F [address] [place] [address] Unit #: [id number] Loc: [place] [address] Phys: Scooby Ross MD Acct: [id number] Dis Date: Status: ADM IN PHONE #: [phone] Exam Date: 10/25/2018 08 FAX #: [phone] Reason: elevated ddimer EXAMS: CPTCODE: [id number] DUP VEIN RASHID 15789 PROCEDURE: BILATERAL LOWER EXTREMITY VENOUS ULTRASOUND INDICATION: [...] at 0840 Reported and signed by: Malachi hPam M.D. CC: Scooby Ross MD Technologist: Michelle Silverman RDMS(A) Trnscb Date/Time: 10/25/2018 (839) Jannet Orig Print D/T: S: 10/25/2018 (0843) Probe: PAGE 1 Signed ReportCBC W/AUTO [id number] 08:21:00 Test Item Value Reference Range Interpretation [...] DIFF REQUIRED (test code NO = MDIFF) [id number] 03:19:00 Test Item Value Reference Range Interpretation [...] total (including troponin done in ED)B-TYPE NATRIURETIC [id number] 00:32:00 Test Item Value Reference Range Interpretation Comments B-TYPE NATRIURETIC PEPTIDE (test 20.4 PG/ML 0-100 N code = BNP) - XR CHEST 1 [id number] 00:18:00 FAX: Pam Weinstein DO [phone] [place]: St: REG Name: CARLEE AGUILAR [facility] : 1970 Age/S: 48/F [address] [place] [address] Unit #: [id number] Loc: [place] [address] Phys: Pam Benitez DO Acct: [id number] Dis Date: Status: REG ER PHONE #: [phone] Exam Date: 10/24/2018 2351 FAX #: [phone] Reason: Chest Pain EXAMS: CPT CODE: [id number] XR CHEST 1 V 52007 EXAM: CR, XR chest one view: 10/24/2018 HISTORY: Chest Pain TECHNIQUE: 1 view of the chest. COMPARISON: 10/21/2017 FINDINGS: Trachea is midline. Heart is normal in size. Pulmonary vascularity is unremarkable. There is no airspace consolidation, pleural effusion or pneumothorax. No significant osseous abnormalities are seen. IMPRESSION: No acute cardiopulmonary disease seen. SL: [JSYED-H] at 0018 Reported and signed by: Chace Marquez M.D. CC: Pam Benitez DO Technologist: RT Fanny(R)Saida Mendiola Trnflrd Date/Time/By: 10/25/2018 (0018) : By: Royal.JS38 Orig Print D/T: S: 10/25/2018 (0022) PAGE [...] 8.3 mg/dL 8.0-10.5 N CA) HEPATIC FUNCTION [id number] 00:11:00 Test Item Value Reference Range Interpretation [...] IUnit/L 20-125 N code = ALKP) PROTHROMBIN [id number] 23:57:00 Test Item Value Reference Range Interpretation [...] l Infarction (to prevent recurrent infar ct). [id number] 23:57:00 Test Item Value Reference Range Interpretation Comments D-DIMER (test 1162 ng/mlFEU <=500 HH THROMBOSIS A ND/OR code = PULMONARY EMBOL ISM AND THE DDIMER) CLINICAL CUT- O FF VALUE FOR EXCLUSION (500 ng/mL FEU) OF THESE CONDIT IONSIS VALIDATED BY TH E TRANSITION MGR OF THE METHOD. A NEGATIVE D-DI ROBERTO RESULT WHEN COMBINED W ITH A CLINICALASSESSM ENT OF LOW PRETEST PROBABI LITY HAS BEEN SHOWN TO H AVEA HIGH NEGATIVE PREDIC TIVE VALUE OF DVT OR PE. D -DIMER VALUES >500 ng/ mL FEU ARE NOT DIAGNOSTIC FOR DVT, PEor DIC WITHOU T OTHER CONFIRMATORY TE STS AND APPROPRIATECLIN ICAL EUALUATIONS. CBC W/AUTO [id number] 23:50:00 Test Item Value Reference Range Interpretation [...] = MDIFF) CT Abdomen and Pelvis w/o [id number] 23:22:30Patient: CARLEE AGUILAR Date/Time05/16/2018 23:06 CDTReason for ExamAbdominal painReportCT Abdomen and Pelvis w/o ContrastLOCATION: [id number]: Abdominal painCOMPARISON: CT of the abdomen and pelvis 12/23/2017TECHNIQUE: Axial images of the abdomen and pelvis were obtained withoutintravenous contrast. Coronal and sagittal reformatted images were created.One or more of the following dose reduction techniques were used: Automated exposure control, adjustment of the mA and/or kV according to patient size, and/or utilization of iterative reconstruction technique.DISCUSSION:Lower thorax: Minimal bibasilar atelectasis.Hepatobiliary: Unremarkable. No biliary ductal dilatation.Gallbla dder: Removed.Spleen: Unremarkable.Pancreas: Unremarkable.Adrenals: Small fluid density nodules in both adrenal glands are likely adenomas.Kidneys/ureters: A hypodense lesion in the mid right kidney istoo small to characterize. Otherwise, unremarkable.Pelvic organs/bladder: The uterus is absent. The bladder and adnexa are unremarkable.Vessels: Multiple small calcifications along the pelvic floor arelikely phleboliths.Lymph nodes: No lymphadenopathy.Peritoneum/retroperitoneum: No free fluid. No definite evidence for pneumoperitoneum.Bowel: Gastric bypass changes are present. Otherwise, no abnormalbowel wall thickening or evidence of obstruction. There are no inflammatory changes in the area of the appendix.Bones/soft tissues: There are mild degenerative changes throughout the spine, pelvis, andhips. Mild diastases recti is present.IMPRESSION:No acute abnormalities in the abdomen or pelvis. * Final Dictated by: MD Valdez Alfred EDictated DT/TM: 05/16/2018 11:18 pmSigned by: MD Valdez Alfred ESigned (Electronic Signature): 05/16/2018 11:22 [id number] 01:00:00 Test Item Value Reference Range Interpretation Comments Lipase (test code = LIP) 28 U/L 13-60 N Comprehensive Metabolic [id number] 01:00:00 Test Item Value Reference Range Interpretation [...] National Kidney Foundation,http ://nkd ep.nih.gov BHCG, Urine, [id number] 00:45:00 Test Item Value Reference Range Interpretation Comments Preg Qual [Ur] (test code = HUHCG) Negative Negative N CBC with [id number] 00:44:00 Test Item Value Reference Range Interpretation [...] code = ALYMPH) 2.6 K/cumm 0.5-4.6 N [place] Abs (test code = AMONO) 0.4 K/cumm 0.0-1.2 N Eos Abs (test code = AEOS) 0.38 K/cumm 0.00-0.74 N Baso Abs (test code = ABASO) 0.1 K/cumm 0.00-0.21 N Urinalysis [id number] 00:32:00 Test Item Value Reference Range Interpretation Comments Color (test code = COLOR) Yellow Yellow,Straw,Pl N yellow Clarity (test code = Sl Cloudy Clear A CLAR) Specific [place] (test 1.016 1.001-1.035 N code = SPGR) [...] Bacteria (test code = Many /HPF BACT) [id number] 17:42:00 Test Item Value Reference Range Interpretation Comments Lipase (test code = LIP) 28 U/L 13-60 N Comprehensive Metabolic [id number] 17:42:00 Test Item Value Reference Range Interpretation [...] National Kidney Foundation,http ://nkd ep.nih.gov CBC with [id number] 17:00:00 Test Item Value Reference Range Interpretation [...] code = ALYMPH) 2.0 K/cumm 0.5-4.6 N [place] Abs (test code = AMONO) 0.3 K/cumm 0.0-1.2 N Eos Abs (test code = AEOS) 0.34 K/cumm 0.00-0.74 N Baso Abs (test code = ABASO) 0.0 K/cumm 0.00-0.21 N [address]& PELVIS W/O [id number] 16:47:19CT OF THE ABDOMEN AND PELVIS WITHOUT [...] absence of the gallbladder and uterus.POC Glucose, [id number] 07:45:00 Test Item Value Reference Range Interpretation Comments POC Glucose (test 158 mg/dL 70-115 H Notify RN or MDIf you code = POCGLUC) consider you r patient critically ill, the [place] Accu-Chek InformII metershould not be used for Glucose determinations. Draw a venous Glucose and send to the Main Lab for Analysis. POC Glucose, [id number] 20:31:00 Test Item Value Reference Range Interpretation Comments POC Glucose (test 167 mg/dL 70-115 H If you con optical effects layout person your code = POCGLUC) patient crit ically ill, the [place] Accu- Chek InformII meters hould not be used for Glu cose determinations. Draw a venous Glucose and send to the Main Lab for Analysis. POC Glucose, [id number] 16:44:00 Test Item Value Reference Range Interpretation Comments POC Glucose (test 148 mg/dL 70-115 H If you con optical effects layout person your code = POCGLUC) patient crit ically ill, the [place] Accu- Chek InformII meters hould not be used for Glu cose determinations. Draw a venous Glucose and send to the Main Lab for Analysis. POC Glucose, [id number] 11:25:00 Test Item Value Reference Range Interpretation Comments POC Glucose (test 173 mg/dL 70-115 H If you con optical effects layout person your code = POCGLUC) patient crit ically ill, the [place] Accu- Chek InformII meters hould not be used for Glu cose determinations. Draw a venous Glucose and send to the Main Lab for Analysis. POC Glucose, [id number] 07:30:00 Test Item Value Reference Range Interpretation Comments POC Glucose (test 191 mg/dL 70-115 H If you con optical effects layout person your code = POCGLUC) patient crit ically ill, the [place] Accu- Chek InformII meters hould not be used for Glu cose determinations. Draw a venous Glucose and send to the Main Lab for Analysis. POC Glucose, [id number] 06:33:00 Test Item Value Reference Range Interpretation Comments POC Glucose (test 181 mg/dL 70-115 H If you con optical effects layout person your code = POCGLUC) patient crit ically ill, the [place] Accu- Chek InformII meters hould not be used for Glu cose determinations. Draw a venous Glucose and send to the Main Lab for Analysis. Comprehensive Metabolic [id number] 05:28:00 Test Item Value Reference Range Interpretation [...] National Kidney Foundation,http ://nkd ep.nih.gov CBC with [id number] 05:03:00 Test Item Value Reference Range Interpretation [...] code = ALYMPH) 1.6 K/cumm 0.5-4.6 N [place] Abs (test code = AMONO) 0.3 K/cumm 0.0-1.2 N Eos Abs (test code = AEOS) 0.23 K/cumm 0.00-0.74 N Baso Abs (test code = ABASO) 0.0 K/cumm 0.00-0.21 N POC Glucose, [id number] 21:57:00 Test Item Value Reference Range Interpretation Comments POC Glucose (test 176 mg/dL 70-115 H If you con optical effects layout person your code = POCGLUC) patient crit ically ill, the [place] Accu- Chek InformII meters hould not be used for Glu cose determinations. Draw a venous Glucose and send to the Main Lab for Analysis. POC Glucose, [id number] 16:25:00 Test Item Value Reference Range Interpretation Comments POC Glucose (test 148 mg/dL 70-115 H If you con optical effects layout person your code = POCGLUC) patient crit ically ill, the [place] Accu- Chek InformII meters hould not be used for Glu cose determinations. Draw a venous Glucose and send to the Main Lab for Analysis. CT NECK SOFT TISSUE WO [id number] 15:49:06Exam: CT soft tissue neck withoutcontrast.Location: A0Aqucrwl: Neck painTechnique: Unenhanced spiralslices were taken through the neck.Sagittal and coronal reformations were performed. One or more of thefollowing radiation dose reduction techniques was used: Automaticexposure control, adjustment of mA and/or KV according to the patient'ssize, and/or utilization of iterative reconstruction technique. Findings:The parotid space, carotid space, ancillary services manager therapy space, prevertebral spaceand the fossa of Rosenm?ller are normal. The oral and hypopharynx areunremarkable.The salivary glands are normal. No sialadenitis or sialolithiasis isseen.The larynx and trachea are normal. The cervical and visualized thoracicesophagus is unremarkable. No lymphadenopathy is present in eitherjugular or either posterior chain.The thyroid gland is normal. The soft tissues are unremarkable.Impression:Unremarkable exam.CT CHEST W/O CONTRAST 2017-12-06 15:45:29Exam: CT thorax withoutcontrast.Location: I6Ogdlbhe: Chest painTechnique: Unenhancedspiral slices were taken from [...] are notedImpression: Left lower lobe pneumonia.POC Glucose, [id number] 11:54:00 Test Item Value Reference Range Interpretation Comments POC Glucose (test 200 mg/dL 70-115 H If you con optical effects layout person your code = POCGLUC) patient crit ically ill, the [place] Accu- Chek InformII meters hould not be used for Glu cose determinations. Draw a venous Glucose and send to the Main Lab for Analysis. POC Glucose, [id number] 07:17:00 Test Item Value Reference Range Interpretation Comments POC Glucose (test 180 mg/dL 70-115 H If you con optical effects layout person your code = POCGLUC) patient crit ically ill, the [place] Accu- Chek InformII meters hould not be used for Glu cose determinations. Draw a venous Glucose and send to the Main Lab for Analysis. Comprehensive Metabolic [id number] 06:33:00 Test Item Value Reference Range Interpretation [...] National Kidney Foundation,http ://nkd ep.nih.gov CBC with [id number] 06:13:00 Test Item Value Reference Range Interpretation [...] code = ALYMPH) 1.6 K/cumm 0.5-4.6 N [place] Abs (test code = AMONO) 0.4 K/cumm 0.0-1.2 N Eos Abs (test code = AEOS) 0.31 K/cumm 0.00-0.74 N Baso Abs (test code = ABASO) 0.0 K/cumm 0.00-0.21 N POC Glucose, [id number] 23:37:00 Test Item Value Reference Range Interpretation Comments POC Glucose (test 152 mg/dL 70-115 H If you con optical effects layout person your code = POCGLUC) patient crit ically ill, the [place] Accu- Chek InformII meters hould not be used for Glu cose determinations. Draw a venous Glucose and send to the Main Lab for Analysis. POC Glucose, [id number] 17:16:00 Test Item Value Reference Range Interpretation Comments POC Glucose (test 170 mg/dL 70-115 H If you con optical effects layout person your code = POCGLUC) patient crit ically ill, the [place] Accu- Chek InformII meters hould not be used for Glu cose determinations. Draw a venous Glucose and send to the Main Lab for Analysis. D-Dimer, [id number] 15:56:00 Test Item Value Reference Range Interpretation Comments D-Dimer, Quant (test code = DDQNT) 1610 ng/mL 0-500 H 89884&PERFUS [id number] 14:47:54Dictation location: R 16Clinical indication: Shortness of [...] of pulmonary emboli.US DUPLX EXT VEINS COMPRS, [id number] 12:42:18DICTATION LOCATION: [id number]: DVTCOMPARISON: None available.TECHNIQUE: Duplex sonography of theright [...] extremity.Small right Gaspar's cyst. XR CHEST 2V, [id number] 11:43:22EXAM: Chest x-ray, 2 viewsLOCATION: [id number]: Chest radiograph 12/04/2017 and 11/26/2017INDICATION: chest painDISCUSSION:PA [...] silhouette.3. Otherwise, no acute cardiopulmonary abnormalities.POC Glucose, [id number] 07:08:00 Test Item Value Reference Range Interpretation Comments POC Glucose (test 201 mg/dL 70-115 H Notify RN or MDIf you code = POCGLUC) consider you r patient critically ill, the [place] Accu-Chek InformII metershould not be used for Glucose determinations. Draw a venous Glucose and send to the Main Lab for Analysis. POC Glucose, [id number] 00:19:00 Test Item Value Reference Range Interpretation Comments POC Glucose (test 173 mg/dL 70-115 H Notify RN or MDIf you code = POCGLUC) consider you r patient critically ill, the [place] Accu-Chek InformII metershould not be used for Glucose determinations. Draw a venous Glucose and send to the Main Lab for Analysis. POC Glucose, [id number] 21:49:00 Test Item Value Reference Range Interpretation Comments POC Glucose (test 189 mg/dL 70-115 H If you con optical effects layout person your code = POCGLUC) patient crit ically ill, the [place] Accu- Chek InformII meters hould not be used for Glu cose determinations. Draw a venous Glucose and send to the Main Lab for Analysis. POC Glucose, [id number] 17:09:00 Test Item Value Reference Range Interpretation Comments POC Glucose (test 193 mg/dL 70-115 H Notify RN or MDIf you code = POCGLUC) consider you r patient critically ill, the [place] Accu-Chek InformII metershould not be used for Glucose determinations. Draw a venous Glucose and send to the Main Lab for Analysis. POC Glucose, [id number] 12:20:00 Test Item Value Reference Range Interpretation Comments POC Glucose (test 166 mg/dL 70-115 H If you con optical effects layout person your code = POCGLUC) patient crit ically ill, the [place] Accu- Chek InformII meters hould not be used for Glu cose determinations. Draw a venous Glucose and send to the Main Lab for Analysis. POC Glucose, [id number] 09:03:00 Test Item Value Reference Range Interpretation Comments POC Glucose (test 212 mg/dL 70-115 H If you con optical effects layout person your code = POCGLUC) patient crit ically ill, the [place] Accu- Chek InformII meters hould not be used for Glu cose determinations. Draw a venous Glucose and send to the Main Lab for Analysis. Comprehensive Metabolic [id number] 05:54:00 Test Item Value Reference Range Interpretation [...] National Kidney Foundation,http ://nkd ep.nih.gov CBC with [id number] 05:40:00 Test Item Value Reference Range Interpretation [...] code = ALYMPH) 1.7 K/cumm 0.5-4.6 N [place] Abs (test code = AMONO) 0.9 K/cumm 0.0-1.2 N Eos Abs (test code = AEOS) 0.04 K/cumm 0.00-0.74 N Baso Abs (test code = ABASO) 0.0 K/cumm 0.00-0.21 N POC Glucose, [id number] 05:04:00 Test Item Value Reference Range Interpretation Comments POC Glucose (test 202 mg/dL 70-115 H If you con optical effects layout person your code = POCGLUC) patient crit ically ill, the [place] Accu- Chek InformII meters hould not be used for Glu cose determinations. Draw a venous Glucose and send to the Main Lab for Analysis. XR CHEST 1 [id number] 03:04:28AFTER HOURS SERVICE ON: 12/04/2017 3:04 AMAP Portable ChestLocation Code [id number]: Status Post Lap Gastric BypassFINDINGS: There are no infiltrates. There are no pleural effusions. There is nopneumotho rax. Cardiac silhouette and mediastinum appear within normallimits. Surgical drain is noted projecting over the mid abdomen and leftupper quadrant.IMPRESSION: No active intrathoracic findings.POC Glucose, Blood 2017-12-04 02:06:00 Test Item Value Reference Range Interpretation Comments POC Glucose (test 213 mg/dL 70-115 H If you con optical effects layout person your code = POCGLUC) patient crit ically ill, the [place] Accu- Chek InformII meters hould not be used for Glu cose determinations. Draw a venous Glucose and send to the Main Lab for Analysis. POC Glucose, [id number] 21:15:00 Test Item Value Reference Range Interpretation Comments POC Glucose (test 236 mg/dL 70-115 H If you con optical effects layout person your code = POCGLUC) patient crit ically ill, the [place] Accu- Chek InformII meters hould not be used for Glu cose determinations. Draw a venous Glucose and send to the Main Lab for Analysis. POC Glucose, [id number] 16:03:00 Test Item Value Reference Range Interpretation Comments POC Glucose (test 235 mg/dL 70-115 H If you con optical effects layout person your code = POCGLUC) patient crit ically ill, the [place] Accu- Chek InformII meters hould not be used for Glu cose determinations. Draw a venous Glucose and send to the Main Lab for Analysis. POC Glucose, [id number] 11:24:00 Test Item Value Reference Range Interpretation Comments POC Glucose (test 269 mg/dL 70-115 H If you con optical effects layout person your code = POCGLUC) patient crit ically ill, the [place] Accu- Chek InformII meters hould not be used for Glu cose determinations. Draw a venous Glucose and send to the Main Lab for Analysis. XR CHEST 2 [id number] 18:35:18CLINICAL INFORMATION: Preprocedural evaluation. Checkup..Dictation Location: R [...] ars ofage have not been validated by e MDRD study and shoul d be interpretedwith caution.eGFR Re sult Interpretation: eGFR > or = 60 is in t he Normal RangeeGF R < 60 may mean kidney diseaseeGFR < 1 5 may mean kidney failureRange s recommended by the National Kidney Foundation,http ://nkd ep.nih.gov CBC with [id number] 18:08:00 Test Item Value Reference Range Interpretation [...] code = ALYMPH) 2.0 K/cumm 0.5-4.6 N [place] Abs (test code = AMONO) 0.3 K/cumm 0.0-1.2 N Eos Abs (test code = AEOS) 0.14 K/cumm 0.00-0.74 N Bas[place] Abs (test code = ABASO) 0.0 K/cumm 0.00-0.21 N US DUPLX EXT VEIN COMPRS, [id number] 13:22:06DICTATION LOCATION: [id number]: I82.409: ACUTE EMBOLISM AND THOMBOS UNSP DEEP [...] right lower extremity.A 3.7 cm Gaspar's cyst. Notes Date/Time Note Provider Source 2022-08-21 20:23:00-00:00 [facility] ([facility]) EMERGENCY PROVIDER REPORT REPORT#:[id number] REPORT STATUS: Signed DATE:08/21/22 TIME: 2022 PATIENT: KAT AGUILAR UNIT #: [id number] ROOM/BED: AGE: 52 SEX: F PCP PHYS: Collin Beasley MD SERVICE AUTHOR: Andrea Suarez MD * ALL edits or amendments must be made on the [employer] document * HPI-Abd Pain F 40 and Over Free Text HPI Notes Free Text HPI Notes 52-year-old female history of HTN, hypothyroidis m, hypoglycemia presents with abdominal pain. Patient reports the past couple days she has had right-sided flank pain which occasionally radiates to the fr ont of the abdomen. Reports nausea without vomiting. Denies dysuria, hematuria. Patient reports history of gastric bypass in 2018. General Initial Greet Date/Time 08/21/22 1950 Presentation Chief Complaint Abdominal pain Sudden in Onset? No Review of Systems Focused Review of Systems Constitutional Denies: Fever. Respiratory Denies: Shortness of breath. Cardiovascular Denies: Chest pain. GI Reports: Abdominal pain, Nausea. Denies: Vomitin g. Female Reports: Flank pain. Denies: Dysuria, Hematuria. Past Medical History - Adult Stated Complaint FLANK PAIN AND NAUSEA FOR2 DAYS Allergies Coded Allergies: Iodinated Contrast Media (Severe, SHORTNESS OF B REATH 01/18/22) ketorolac (From TORADOL) (Se nicholas, RASH, SWELLING OF THROAT AND TONGUE 01/18/22) Sulfa (Sulfonamide Antibiotics) (Intermediate, H LAURITA 01/18/22) NSAIDS (Non-Steroidal Anti-Inflamma (Mild, had g astric bypass 01/18/22) Home Medications Active Scripts DOXYCYCLINE HYCLATE (VIBRA-TAB) 100 MG PO Q12H DOXYCYCLINE HYCLATE (VIBRA-TAB) 100 MG PO Q12H #14 TABS Prov: 01/18/22 oxyCODONE 5 MG PO Q6H PRN PRN PAIN SCALE 7-10, S ECOND LINE oxyCODONE 5 MG PO Q6H PRN PRN PAIN SCALE 7-10, SECOND LINE #28 TABS Prov: 01/18/22 methocarbamoL (ROBAXIN) 500 MG PO TID PRN PRN MU SCLE SPASMS methocarbamoL (ROBAXIN) 500 MG PO TID PRN PRN M USCLE SPASMS #30 TABS Prov: 01/18/22 traMADol (ULTRAM) 50 MG PO Q6H PRN PRN PAIN SCAL E 4-6 traMADol (ULTRAM) 50 MG PO Q6H PRN PRN PAIN SCA LE 4-6 #40 TABS Prov: 01/18/22 ACETAMINOPHEN (TYLENOL) 1,000 MG PO Q8HR ACETAMINOPHEN (TYLENOL) 1,000 MG PO Q8HR #60 TA BS Prov: 01/18/22 RIVAROXABAN (XARELTO) 10 MG PO DAILY RIVAROXABAN (XARELTO) 10 MG PO DAILY #30 TAB Prov: 01/18/22 ONDANSETRON ODT (ZOFRAN ODT) 4 MG PO Q6H PRN PRN NAUSEA/VOMITING ONDANSETRON ODT (ZOFRAN ODT) 4 MG PO Q6H PRN [place] N NAUSEA/VOMITING #15 TABS Prov: 02/22/22 Reported Medications LEVOTHYROXINE (SYNTHROID) 25 MCG PO DAILY PANTOPRAZOLE DR (PROTONIX) 40 MG PO DAILY LISINOPRIL (ZESTRIL) 20 MG PO DAILY PROMETHAZINE (PHENERGAN) 25 MG PO Q6H PRN PRN NA USEA/VOMITING LORATADINE (CLARITIN) 10 MG PO DAILY FERROUS SULFATE (FEOSOL) 325 MG PO DAILY MAGNESIUM 30 MG PO DAILY LACTULOSE (LACTULOSE 10 GM/15 ML) 15 ML PO BID LINACLOTIDE (LINZESS) 290 MCG PO DAILY TOPIRAMATE (TOPAMAX) 50 MG PO BID Past Medical History: Reports: Hypertension, Headache disorder, Thyroi d disorder (Hypothyroid). Additional Medical History IBS, Sleep Apnea, hypoglycemia Past Surgical History: Reports: Cholecystectomy, Hysterectomy. Additional Surgical History bariatric surgery Additional Family History Reviewed, non contributory Alcohol Use Denies EtOH use Drug Use Denies recreational drugs Other Social History Local resident Physical Exam Vital Signs Vital Signs First Documented: Result Date Time Pulse Ox 100 08/21 1951 B/P 145/65 08/21 1951 B/P Mean 91 08/21 1951 O2 Delivery Room air 08/21 1951 Temp 37.3 08/21 1951 Pulse 71 08/21 1951 Resp 17 08/21 1951 Last Documented: Result Date Time Pulse Ox 99 08/21 2030 B/P 146/61 08/21 2030 B/P Mean 88 08/21 2030 Pulse 64 08/21 2030 O2 Delivery Room air 08/21 1951 Temp 37.3 08/21 1951 Resp 17 08/21 1951 Review of Vital Signs Reviewed Focused PE General/Const General/Const Awake, Alert, No acute distress Ears/Nose/Throat Mouth Mucous membranes dry. Resp/Chest Respiratory/Chest Breath sounds NL, Breath soun ds = bilat, No respiratory distress Cardiovascular Cardiovascular Heart rate NL, Regular rhythm, H eart sounds NL Abdomen/GI Abdomen/GI Soft, Non-tender, No guarding MS Back Back Full range of motion, No CVA tenderness Interpretation Diagnostics Lab Results Interpretation Results Laboratory Tests: 08/21 Blood Gas Sodium (134 - 147 mmol/L) 144 Potassium (3.4 - 5.0 mmol/L) 4.0 Chloride (100 - 108 mmol/L) 106 Ionized Calcium (1.12 - 1.32 MMOL/L) 1.16 Chemistry POC Creatinine (0.6 - 1.0 mg/dL) 0.9 POC Glucose (mg/dL) (70 - 110 MG/DL) 93 Total Bilirubin (0.0 - 1.0 MG/DL) 0.4 GGT (5 - 85 UNITS/L) 15 AST (15 - 37 IUnit/L) 23 ALT (30 - 65 IUnit/L) 17 L Total Alk Phosphatase (20 - 125 IUNIT/L) 107 Rapid Troponin I (<0.05) < 0.05 Total Protein (5.0 - 8.0 GM/DL) 7.5 Albumin (3.4 - 5.0 g/dL) 3.3 L Amylase (25 - 125 UNITS/L) 34 Urines POC Urine pH (5.0 - 7.0) 6 Ur Specific [place] (1.005 - 1.030) 1.020 POC Urine Protein (NEGATIVE) NEGATIVE POC Ur Glucose (UA) (NEGATIVE) NEGATIVE POC Urine Ketones (NEGATIVE) NEGATIVE POC Urine Blood (NEGATIVE) NEGATIVE POC Urine Nitrite (Negative) NEGATIVE Urine Bilirubin (NEGATIVE) NEGATIVE POC Urine Urobilinogen (0.2 - 1.0) 1+ H POC U Leukocyte Esteras (NEGATIVE) Negative Recent Impressions: CAT SCAN - CT ABD PELVIS W/O CONT 08/21 2016 Report Impression - Status: SIGNED Entered: 08/21/20222111 IMPRESSION: 1. Increased gas and stool in the colon without evidence of obstruction, diverticular disease or acute infla mmatory wall thickening. 2. Status post cholecystectomy. Dilatation of th e common bile duct likely represents post cholecystectomy ectasia h owever no prior studies are available to document stability. If there is clinical or laboratory evidence of common duct obstructio n then MRCP or ERCP should be considered. 3. Bilateral adrenal adenomas for which no follo w-up imaging is recommended. SL:131 Impression By: Harrison Morrison M.D. ECG #1 Interpretation Date 08/21/22 Time 1999 Interpreted by and reviewed by me NL ECG Interpretation Normal rate, Normal sinus rhythm, No acute ischemic changes, No STEMI Rate 65 Re-Evaluation MDM Free Text MDM Notes Free Text MDM Notes 52-year-old female history of HTN, hypothyroidis m, hypoglycemia presents with abdominal pain. Consider UTI in setting of flank pain, however no CVA tenderness. Also consider complication of gastri c bypass. Also consider atypical ACS. Will obtain EKG, blood work, urine , CT abdomen pelvis. )( Re-Evaluation/Progress #1 Text/Dict Note Work-up unremarkable. CT with nonspecific gas pa ttern with no evidence of obstruction. Pain improved. Patient tolerating p .o. Discharged home with antiemetic, return precautions, PCP follow-up. )( Re-Eval Status Improved ED Course Medication(s) Ordered Medication(s) Ordered: Central Nervous System Agents Sig/James Start time Last Medication Dose Route Stop Time Status Admin Morphine Sulfate 4 MG X1ED STA 08/21 2007 DC 12 IV 08/21 Electrolytic, Caloric, And [place] Sig/James Start time Last Medication Dose Route Stop Time Status Admin Sodium Chloride 1,000 ML X1ED STA 08/21 2123 CA N IV 08/21 2222 Gastrointestinal Drugs Sig/James Start time Last Medication Dose Route Stop Time Status Admin Ondansetron HCl 4 MG X1ED STA 08/21 2000 DC 12/ 14 IV /14 2000 2024 Patient Discharge Departure Vital Signs/Condition Vital Signs First Documented: Result Date Time Pulse Ox 100 08/21 1951 B/P 145/65 08/21 1951 B/P Mean 91 08/21 1951 O2 Delivery Room air 08/21 1951 Temp 37.3 08/21 1951 Pulse 71 08/21 1951 Resp 17 08/21 1951 Last Documented: Result Date Time Pulse Ox 99 08/21 2030 B/P 146/61 08/21 2030 B/P Mean 88 08/21 2030 Pulse 64 08/21 2030 O2 Delivery Room air 08/21 1951 Temp 37.3 08/21 1951 Resp 17 08/21 1951 All vital signs available at the time of this en try have been reviewed. Clinical Impression Clinical Impression Primary Impression: Abdominal pain Secondary Impressions: Nausea Disposition Decision Discharge )( Discharged to Home Yes )( Time 2138 )( Date 08/21/22 Discharge/Care Plan Counseled Regarding Diagnosi s, Lab results, Imaging studies, Prescriptions, Need for transfer, Need for follow-up (Auto) Prescriptions Current Visit Scripts ONDANSETRON ODT (ZOFRAN ODT) 4 MG PO Q6H PRN PRN NAUSEA/VOMITING ONDANSETRON ODT (ZOFRAN ODT) 4 MG PO Q6H PRN [place] N NAUSEA/VOMITING #15 TABS Patient Instructions ED Abdominal Pain Adult, ED Diet Vomiting Diarrhea Referrals Provider Group: PRIMARY CARE Follow-Up: 2-3 Days Departure Forms JR PCP LIST Discharge Note I have spoken with the patie nt and/or caregivers. I have explained the patient's condition, diagnoses and maninder atment plan based on the information available to me at this time. I have answered the patient's and/ or caregiver's questions and addressed any concerns. The patient and/or careg juan have as good an understanding of the patient 's diagnosis, condition and treatment plan as can be expected at this point. The vital signs have bee n stable. The patient's condition is stable and appr opriate for discharge from the emergency department. The patient will pursue further outpatient evalu ation with the primary care physician or other designated or consulting phys ician as outlined in the discharge instructions. The patient and/or caregivers are agreeable to this plan of care and follow-up instructions have been exp lained in detail. The patient and/or caregivers have received these instructio ns in written format and have expressed an understanding of the discharge inst ructions. The patient and/or caregivers are aware that any significant change in condition or worsening of symptoms should prompt an immediate return to [facility] or the closest emergency department or a call to [phone]. at [phone] RPT #:[id number] END OF REPORT 2022-02-22 11:41:00-00:00 [facility] ([facility]) EMERGENCY PROVIDER REPORT REPORT#:[id number] REPORT STATUS: Signed DATE:02/22/22 TIME: 1141 PATIENT: KAT AGUILAR UNIT #: [id number] ROOM/BED: AGE: 51 SEX: F PCP PHYS: Collin Beasley MD SERVICE AUTHOR: Corby Hay MD * ALL edits or amendments must be made on the [employer]/computer document * HPI-General Illness General Confirmed Patient Yes Patient Type New patient Initial Greet Date/Time 02/22/22 1132 Presentation Chief Complaint accidental ingestion Hx Obtained From Patient, EMS Sudden in Onset? Yes Symptom Duration Constant Progression since Onset Constant Location Mouth (tingling/numb) Quality Burning (throat) Radiation Does not radiate. Severity: Onset Mild Severity: Current Mild Free Text HPI Notes Free Text HPI Notes 51-year-old female patient with a past medical h istory as recorded in the EMR reports to the [facility] emergency department [place], [place] via [facility] with complaints of mouth, tongue, teeth numbness after accidentally ingesting a straw full of some household cleaning product that she thinks was Lu finish cleaner. 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 Patient reports that she poured what she thought was a large glass of ice water when in reality it was a glass of this unknown cleaning agent. Patient thinks it was Lu brand finish cleaner. Patient seen immediately upon arrival a nd is no distress speaks with a normal voice ambulates in the ER normally. Review of Systems ROS Statements All systems rev neg except as marked. Review of Systems Respiratory Denies: Shortness of breath. Cardiovascular Denies: Chest pain. Free Text ROS Notes Free Text ROS Notes Numb/tingly oral mucosa, tongue, teeth. 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 Allergies Coded Allergies: Iodinated Contrast Media (Severe, SHORTNESS OF B REATH 01/18/22) ketorolac (From TORADOL) (Se nicholas, RASH, SWELLING OF THROAT AND TONGUE 01/18/22) Sulfa (Sulfonamide Antibiotics) (Intermediate, H LAURITA 01/18/22) NSAIDS (Non-Steroidal Anti-Inflamma (Mild, had g astric bypass 01/18/22) Home Medications Active Scripts DOXYCYCLINE HYCLATE (VIBRA-TAB) 100 MG PO Q12H DOXYCYCLINE HYCLATE (VIBRA-TAB) 100 MG PO Q12H #14 TABS Prov: 01/18/22 OXYCODONE HCL (OXYCODONE) 5 MG PO Q6H PRN PRN PA IN SCALE 7-10, SECOND LINE OXYCODONE HCL (OXYCODONE) 5 MG PO Q6H PRN PRN P AIN SCALE 7-10, SECOND LINE #28 TABS Prov: 01/18/22 methocarbamoL (ROBAXIN) 500 MG PO TID PRN PRN MU SCLE SPASMS methocarbamoL (ROBAXIN) 500 MG PO TID PRN PRN M USCLE SPASMS #30 TABS Prov: 01/18/22 traMADol (ULTRAM) 50 MG PO Q6H PRN PRN PAIN SCAL E 4-6 traMADol (ULTRAM) 50 MG PO Q6H PRN PRN PAIN SCA LE 4-6 #40 TABS Prov: 01/18/22 ACETAMINOPHEN (TYLENOL) 1,000 MG PO Q8HR ACETAMINOPHEN (TYLENOL) 1,000 MG PO Q8HR #60 TA BS Prov: 01/18/22 RIVAROXABAN (XARELTO) 10 MG PO DAILY RIVAROXABAN (XARELTO) 10 MG PO DAILY #30 TAB Prov: 01/18/22 Reported Medications LEVOTHYROXINE (SYNTHROID) 25 MCG PO DAILY PANTOPRAZOLE DR (PROTONIX) 40 MG PO DAILY LISINOPRIL (ZESTRIL) 20 MG PO DAILY PROMETHAZINE (PHENERGAN) 25 MG PO Q6H PRN PRN NA USEA/VOMITING LORATADINE (CLARITIN) 10 MG PO DAILY FERROUS SULFATE (FEOSOL) 325 MG PO DAILY MAGNESIUM 30 MG PO DAILY LACTULOSE (LACTULOSE 10 GM/15 ML) 15 ML PO BID LINACLOTIDE (LINZESS) 290 MCG PO DAILY TOPIRAMATE (TOPAMAX) 50 MG PO BID Past Medical History: Reports: Hypertension, Headache disorder, Thyroi d disorder (Hypothyroid). Additional Medical History IBS, Sleep Apnea Past Surgical History: Reports: Cholecystectomy, Hysterectomy. Additional Surgical History bariatric surgery Additional Family History Reviewed, non contributory Alcohol Use Denies EtOH use Drug Use Denies recreational drugs Smoking status for patients 13 years old or olde r: Never Smoker Other Social History Local resident Physical Exam Vital Signs Vital Signs First Documented: Result Date Time Pulse Ox 98 02/22 1135 B/P 123/75 02/22 1135 B/P Mean 91 02/22 1135 O2 Delivery Room air 02/22 1135 Temp 36.3 02/22 1135 Pulse 85 02/22 1135 Resp 16 02/22 1135 Last Documented: Result Date Time Pulse Ox 98 02/22 1135 B/P 123/75 02/22 1135 B/P Mean 91 02/22 1135 O2 Delivery Room air 02/22 1135 Temp 36.3 02/22 1135 Pulse 85 02/22 1135 Resp 16 02/22 1135 Review of Vital Signs Reviewed Physical Exam General/Const General/Const Awake, Alert, Well appearing MS Head Head Normocephalic Eyes Eyes PERRL Ears/Nose/Throat Ears/Nose/Throat Airway patent, Mucous membrane s moist, Pharynx NL MS Neck Neck Supple, No meningismus, Full range of [place], No swelling, Non-tender, No masses Resp/Chest Respiratory/Chest Breath sounds NL, Breath soun ds = bilat, No respiratory distress, No rales, No rhonchi, No wheezing Cardiovascular Cardiovascular Heart rate NL, Regular r hythm, Heart sounds NL, Cap refill not delayed, Peripheral circulation NL Abdomen/GI Abdomen/GI Soft, Non-tender, No guarding, No re bound MS Upper Extrem Upper Extremity/MS Inspection NL, No swelling, Non-tender, No erythema, No deformity, Neurologic intact, Vascular intact, N o clubbing/cyanosis MS Lower Extrem Lower Ext/Pelvis/MS Inspection NL, No swelling, Non-tender, No erythema, No deformity, Neurologic intact, Vascular intact, N o edema Skin Skin Color NL, Warm, Dry, Turgor NL Neurologic Neurologic Oriented X3, Speech NL, No motor def icits, No sensory deficits Psychiatric Psychiatric Affect NL, Mood NL, Thought content NL Re-Evaluation MDM Re-Evaluation/Progress #1 Text/Dict Note Poison control reports inges gabriella cleaning agent is nontoxic. confirmed on product website Re-Eval Status Resolved ED Course Medication(s) Ordered Medication(s) Ordered: Cardiovascular Drugs Sig/James Start time Last Medication Dose Route Stop Time Status Admin Lidocaine HCl 15 ML X1ED STA 02/22 1141 DC PO 02/22 1142 1201 Gastrointestinal Drugs Sig/James Start time Last Medication Dose Route Stop Time Status Admin Al Hydrox/Mg Hydrox/ 30 ML X1ED STA 02/22 1141 DC 02/22 Simethicone PO 02/22 1142 1201 Ondansetron HCl 4 MG X1ED STA 02/22 1141 DC PO 02/22 1142 1148 Patient Discharge Departure Vital Signs/Condition Vital Signs First Documented: Result Date Time Pulse Ox 98 02/22 1135 B/P 123/75 02/22 1135 B/P Mean 91 02/22 1135 O2 Delivery Room air 02/22 1135 Temp 36.3 02/22 1135 Pulse 85 02/22 1135 Resp 16 02/22 1135 Last Documented: Result Date Time Pulse Ox 98 02/22 1135 B/P 123/75 02/22 1135 B/P Mean 91 02/22 1135 O2 Delivery Room air 02/22 1135 Temp 36.3 02/22 1135 Pulse 85 02/22 1135 Resp 16 02/22 1135 All vital signs available at the time of this en try have been reviewed. Clinical Impression Clinical Impression Primary Impression: Ingestion of nontoxic substa nce Disposition Decision Discharge )( Discharged to Home Yes )( Time 1216 )( Date 02/22/22 Discharge/Care Plan Counseled Regarding Diagnosi s, Prescriptions, Need for follow-up, When to return to ED (Auto) Prescriptions Current Visit Scripts ONDANSETRON ODT (ZOFRAN ODT) 4 MG PO Q6H PRN PRN NAUSEA/VOMITING ONDANSETRON ODT (ZOFRAN ODT) 4 MG PO Q6H PRN [place] N NAUSEA/VOMITING #15 TABS Patient Instructions Ingestion Accident Nontoxic Adult Discharge Note I have spoken with the patie nt and/or caregivers. I have explained the patient's condition, diagnoses and maninder atment plan based on the information available to me at this time. I have answered the patient's and/ or caregiver's questions and addressed any concerns. The patient and/or careg juan have as good an understanding of the patient 's diagnosis, condition and treatment plan as can be expected at this point. The vital signs have bee n stable. The patient's condition is stable and appr opriate for discharge from the emergency department. The patient will pursue further outpatient evalu ation with the primary care physician or other designated or consulting phys ician as outlined in the discharge instructions. The patient and/or caregivers are agreeable to this plan of care and follow-up instructions have been exp lained in detail. The patient and/or caregivers have received these instructio ns in written format and have expressed an understanding of the discharge inst ructions. The patient and/or caregivers are aware that any significant change in condition or worsening of symptoms should prompt an immediate return to [facility] or the closest emergency department or a call to 911. at 2126 RPT #:[id number] END OF REPORT 2022-01-21 08:25:00-00:00 [facility] ([facility]) Discharge Summary REPORT#:[id number] REPORT STATUS: Signed DATE:01/21/22 TIME: 824 PATIENT: KAT AGUILAR UNIT #: [id number] [facility] AGE: 51 SEX: F ATTEND: Eulalia Hilario MD ADM AUTHOR: Jackie Almanza * ALL edits or amendments must be made on the Advaction/computer document * General Information Discharge date: 01/18/22 Hospital course: Discharge Diagnosis: Left Knee Degenerative Dise ase Procedure: Left Knee Arthroplasty Hospital Course and Findings The patient underwent the pr ocedure without incident. Findings were significant for degenerative disease of the knee. The patien t was hemodynamically and medically monitored during the postoperative per iod. Anticoagulation was instituted for postoperative DVT prophylaxis. Th e patient was progressively able to tolerate PO pain med ications and the appropriate diet. Physical therapy was instituted, with a progressive ability to am bulate and perform exercises. The patient was eventually deemed stable and saf e for discharge. Despite factors which projected a longer hospita l stay, the patient fulfilled criteria for earlier than expected disch arge, including control of pain, early mobilization with therapy, and a stable hemodyna joan status. At discharge, the patient was comfortabl e, with a controlled pain level. There were no chest or abdominal symptoms present. Dis charge physical examination demonstrated stable vital signs and no acute dis tress. The patient had an intact wound with no signifi cant drainage, and no calf tenderness and a negative Octavio's sign bilaterally. There were no neurolog ic or vascular deficits or changes from the preoperative state. Disposition: Discharged to home Discharge Condition: Stable Instructions: Instruction sheet given to patient Activity: Ambulate with assistance, with weight- bearing as instructed in the hospital. Diet: As per preoperatively Prescriptions 1. Pain Medications: As per discharge prescription, with progressive weaning as pain decreases 2. Anticoagulation: As per discharge prescription, or PreOp anticoa gulant, as discussed with patient 3. Physical Therapy: Will undergo PT for gait training, mobilization , [id number], and strengthening. Patient was i nformed to that they need to arrange for therapy as quickly as possible. The imp ortance of early advancement of [id number] with home exercises, and physical therapy was stresse d to the patient. Follow-up Appointment: Patient instructe d to arrange appointment for an office visit in 2 weeks Med Rec Med Rec Discharge meds: Stop taking the following medications: ESTRADIOL (ESTRACE) 1 MG TAB 0.5 MILLIGRAM ORAL DAILY. ZOLPIDEM (AMBIEN) 5 MG TAB 5 MILLIGRAM ORAL BEDTIME. Continue taking these medications: LEVOTHYROXINE (SYNTHROID) 25 MCG TAB 25 MICROGRAM ORAL DAILY. LISINOPRIL (ZESTRIL) 20 MG TAB 20 MILLIGRAM ORAL DAILY. PANTOPRAZOLE DR (PROTONIX) 40 MG TAB.DR 40 MILLIGRAM ORAL DAILY. PROMETHAZINE (PHENERGAN) 25 MG TAB 25 MILLIGRAM ORAL EVERY 6 HOURS NEEDED. as n eeded for NAUSEA/VOMITING LORATADINE (CLARITIN) 10 MG TAB 10 MILLIGRAM ORAL DAILY. FERROUS SULFATE (FEOSOL) 325 MG TAB 325 MILLIGRAM ORAL DAILY. MAGNESIUM (MAGNESIUM) 30 MG TAB 30 MILLIGRAM ORAL DAILY. LACTULOSE (LACTULOSE 10 GM/15 ML) 10 GRAM/15 ML SYRUP 15 MILLILITERS ORAL TWICE DAILY. LINACLOTIDE (LINZESS) 290 MCG CAP 290 MICROGRAM ORAL DAILY. TOPIRAMATE (TOPAMAX) 50 MG TAB 50 MILLIGRAM ORAL TWICE DAILY. Start taking the following new medications: DOXYCYCLINE HYCLATE (VIBRA-TAB) 100 MG TAB 100 MILLIGRAM ORAL EVERY 12 HOURS. Qty = 14 No Refills OXYCODONE HCL (OXYCODONE) 5 MG TAB 5 MILLIGRAM ORAL EVERY 6 HOURS NEEDED. as ne eded for PAIN SCALE 7-10, SECOND LINE Qty = 28 No Refills methocarbamoL (ROBAXIN) 500 MG TAB 500 MILLIGRAM ORAL THREE TIMES DAILY NEEDED. as needed for MUSCLE SPASMS Qty = 30 No Refills traMADol (ULTRAM) 50 MG TAB 50 MILLIGRAM ORAL EVERY 6 HOURS NEEDED. as n eeded for PAIN SCALE 4-6 Qty = 40 No Refills ACETAMINOPHEN (TYLENOL) 500 MG TAB 1,000 MILLIGRAM ORAL EVERY 8 HOURS. Qty = 60 No Refills Instructions: Follow label instructions for pain or fever. RIVAROXABAN (XARELTO) 10 MG TAB 10 MILLIGRAM ORAL DAILY. Qty = 30 No Refills Discharge Instructions PCP )( Discharge to: Home/Self Care Discharge Instructions Additional Discharge Routines: Wound/Dressing Ca re, Add. instructions )( Diet: Regular )( Wound/dressing care: Leave dressing in place (for 1 week) )( Additional instructions: see handout Follow-up Appointments Attending Physician: Attending Physician: Eulalia Hilario MD Attending physician follow up timeframe: In 1-2 weeks Special instructions: SEE DR HILARIO'S DISCHARGE INSTRUCTIONS Electronically Signed by Jackie Almanza on 0 01/21/22 at 0826 Electronically Signed by Eulalia Hilario MD on 01/06 03/29 at 0813 RPT #:[id number] END OF REPORT 2022-01-18 09:04:00-00:00 [facility] ([facility]) DT Operative Note REPORT#:[id number] REPORT STATUS: Signed DATE:01/18/22 TIME: 903 PATIENT: KAT AGUILAR UNIT #: [id number] [facility] AGE: 51 SEX: F ATTEND: Eulalia Hilario MD ADM AUTHOR: Eulalia Hilario MD * ALL edits or amendments must be made on the el Sw[employer]/computer document * See Addendum Operative Report Operative Note Note: ORTHO OP NOTE Patient Name: Kat Aguilar : [] DOS: 01/18/22 Pre-op Diagnosis: Left Knee Osteoarthritis Post-op Diagnosis: Same Procedure: Left TKR Surgeon: Eulalia Hilario MD Territory Account Executive: Mera THAPA Anesthesia Type: TIVA/Adductor Canal EBL: 150 ml Fluids: Per anesthesia record UOP: Per anesthesia record Implants: Depuy 5 N Attune pressfit CR Femur, 3 RP Tibia P ressfit, 8mm CR RP Poly, no patella Speicmens: None Drains: None Complications: None Condition: Stable, awake, taken to recovery INDICATIONS: This patient is a 51-year-old female who has failed conservative management of knee arthritis . I discussed the risks a nd benefits of total knee arthroplasty with the patient and they elected to proceed. I have discussed the risks and benefits with reg ángela to infection, bleeding complications, nerve damage, nonunion, failure o f hardware, DVT, PE and other general orthopedic issues. The patient understoo d this discussion and elected to proceed. TECHNIQUE: On day of my operation, the patient was met in t he pre-op area. I confirmed that the patient's left leg was the approxpriate leg and marked it in concordance with the patient. The patient was then taken back to the operating room. A sign in was performed to confirm we had the correct patient. The patient was placed supine on the OR bed. All extremities were appropriately padded. The opera tive leg then had a thigh tourniquet placed on it high on the thigh. The o perative lower extremity was then prepped and draped in a sterile manner with chloroprep and ioband. Timeout was performed prior to the procedure to confirm we had the correct patient, we were working on the correct leg and all equipmen t necessary was present. Preoperative antibiotic had been given and x-ray s were visible. There were no concerns from any member of the operative team. Tranexamic acid was given. I then turned my attention to the patient's oper ative leg. An approx.. 6 inch incision was made over the midline of th e knee. I dissected down to the fascia and then medial and lateral flaps were raised. T he arthrotomy was marked for later reapproximation. A medial parapatellar art hrotomy was then created. The medial periosteal sleeve was raised off the prox imal tibia. The infrapatellar fat pad was removed. The synovium off the distal anterior aspect of the femur was removed. The anterior of the lateral meniscu s remanant was removed. A seema retractor was used to sublux th e patella lateral and the knee flexed. The [employer] robotic system was then brought into t field. Femoral and tibial pins were placed. Trackers were placed and the k nee registered. The robotic arm was then used to enter the field and perform haseeb resection with appropriate retraction of critical struc tures. Adjustments to implant position included 1 degree internal rotation of femur. The laminar electromechanical inspector was th en placed medial and the ACL/PCL, lateral meniscus, and posterolateral osteophytes removed. A spacer block was used to confirm appropriate alignment and flexion gap balance wi th the extension gap. No notching was present on the femur. The tibia was brought forward and sized. The tra y was pinned into position in the appropriate rotation. The drill and keel were used to fashion the bone for the tibial tray. A trial tray was placed. A tria l femur was placed. The knee was reduced with a trial rajiv y. Stability was excellent with good balance of the flexion and extension gap. The patella was then everted and held with two zara's and a sweetheart clamp. The prepatellar thickness wa s measured at 22 mm. It was in good condition so it was deinervated and lateral facetectomy performe d with removal of any small osteophytes but not resurfaced. A lateral release was not needed. The patella tr acked well. The trial components were removed. The back of the knee wa s checked for bleeding and hemostasis achieved. The bone was then cleaned of debris and the pres sfit components impacted into the knee with excellent fixation. Then t he final poly was placed into the knee and confirmed to be stable with excellent ROM. Hemostasis was achieved. Dilute betadine was lavaged through the knee aft er a 3 minute soak to help prevent infection. Then antibiotic powder was pl aced into the knee. Periarticular anesthetic was infiltrated into th e soft tissues including the posterior capsule. The arthrotomy was cl osed proximally with 1-Vicryl and then run with a barbed #2 Quill suture followed by cl osure of the deep fat with 0- Vicryl and closure of the subcutaneous fat with 2-0 Monocryl in a buried interrupted fashion followed by closure of the s kin with 3-0 Monocryl and dermabond. This was followed by heavy cotton Ruslan es dressing and Rakesh bandage. All needle and sponge counts were correct. The eyal hung was then awoke from general anesthetic, placed on the transp ort bed, and taken back to recovery. I was present for all portions of the procedure. As I am not part of a teaching program no reside nt or fellow was available to assist with this surgery. Mera Florence was employed as a nursing surgical services director to provide retraction of critical neurovascular structures and provide the appropriate exposure needed to perform this comp remy procedure. Both my hands are necessary for this procedure so the help of the procurement assistant was invaluable. FOLLOWUP: The Patient will be WBAT on the operative leg wi th immediate initiation of PT and ROM work. The DVT prophylaxis will be Xarelt o. I will follow the patient while The Patient is in-house. I spoke with the patient s family after the procedure and answered all questions. The patien t will receive 24 hours of prophylactic antibiotics as well. Eulalia Hilario MD Electronically Signed by Eulalia Hilario MD on 01/06 11/27 at 0906 Addendum 1: 01/18/22 1333 by Eulalia Hilario MD is 68 Electronically Signed by Eulalia Hilario MD on 01/06 11/27 at 1333 RPT #:[id number] END OF REPORT 2022-01-01 12:07:00-00:00 [id number] [facility] [place] [address] PATIENT NAME: KAT AGUILAR ADMIT DATE: ACCOUNT NO: [id number] ROOM NO: AGE: 51 REPORT TYPE: ELECTROCARDIOGRAM SEX: F ADMITTING PHYSICIAN: ATTENDING PHYSICIAN:Eulalia Hilario MD Order: [id number] Test Reason : HTN Test Date/Time Stamp: FriJan 01 2022 12:07:39 Blood Pressure : / mmHG Vent. Rate : 065 BPM Atrial Rate : 065 BPM P-R Int : 150 ms QRS Dur : 098 ms QT Int : 436 ms P-R-T Axes : 042 054 032 degree s QTc Int : 453 ms Normal sinus rhythm Normal ECG When compared with ECG of 18-JAN-2019 07:34, No significant change was found Confirmed by LUCERO HOOD MD ([id number]) on 01/07/2022 8 :34:36 PM Referred By: Eulalia Hilario Confirmed by:LUCERO Colon PATIENT NAME: KAT AGUILAR ACCOUNT #: [id number] 2019-02-22 06:39:00-00:00 [facility] ([facility]) Discharge Summary REPORT#:[id number] REPORT STATUS: Signed DATE:02/22/19 TIME: 638 PATIENT: CARLEE AGUILAR UNIT #: [id number] ROOM/BED: [place] [id number] : [birth year] AGE: 48 SEX: F ATTEND: Carmelo Orozco MD ADM AUTHOR: Nichole Orozco MD * ALL edits or amendments must be made on the Advaction/computer document * PCP PCP Discharge to: home General Information Problem List/A P: 1. Pleurisy 2. Paresthesia 3. Chest pain 4. Neuropathy Date of admission: Observation Start Date: 01/18/19 Date of admission: 01/18/19 Date of discharge: 01/21/19 Admission diagnosis: neuropathy Discharge diagnosis: same as above Hospital course: 48 year old female admitted with lower extremity pain due to neuropathy. Seen by neurology and pain management. Medications adjus gabriella and discharged home in stable condition Med Rec Med Rec Discharge meds: Continue taking these medications: LEVOTHYROXINE (SYNTHROID) 25 MCG TAB 25 MICROGRAM ORAL DAILY. metFORMIN (GLUCOPHAGE) 1,000 MG TAB 1,000 MILLIGRAM ORAL TWICE DAILY. CETIRIZINE (ZyrTEC) 10 MG TAB 10 MILLIGRAM ORAL DAILY. LISINOPRIL (ZESTRIL) 10 MG TAB 10 MILLIGRAM ORAL DAILY. PANTOPRAZOLE DR (PROTONIX) 40 MG TAB.DR 40 MILLIGRAM ORAL DAILY. ESTRADIOL (ESTRACE) 1 MG TAB 1 MILLIGRAM ORAL DAILY. diphenhydrAMINE (BENADRYL) 25 MG CAP 25 MILLIGRAM ORAL EVERY 12 HOURS. ESZOPICLONE (LUNESTA) 3 MG TAB 3 MILLIGRAM ORAL BEDTIME. ASPIRIN EC (ECOTRIN) 81 MG TAB.EC 81 MILLIGRAM ORAL DAILY. Qty = 100 Instructions: OTC Start taking the following new medications: PREGABALIN (LYRICA) 50 MG CAP 50 MILLIGRAM ORAL THREE TIMES A DAY. Days = 30 Qty = 90 No Refills Discharge Instructions Diet: regular Follow-up Appointments PCP: PCP: Collin Beasley MD Follow up timeframe: In 1-2 weeks Special instructions: CALL TO MAKE APPOINTMENT Attending Physician: Attending Physician: Nichole Orozco MD Consulting provider 1: Provider 1: Jocelin Jones MD Specialty: NEUROLOGY Follow up timeframe: INSTRUCTED Special instructions: CALL TO MAKE APPOINTMENT Consulting provider 2: Provider 2: Cleo Bautista MD Specialty: PAIN MANAGEMENT Follow up timeframe: INSTRUCTED Special instructions: CALL TO MAKE APPOINTMENT Objective VS/I O Last Documented: Result Date Time Pulse Ox 94 01/21 1528 B/P 111/65 01/21 1528 B/P Mean 80.5 01/21 1528 Temp 36.7 01/21 1528 Pulse 71 01/21 1528 Resp 16 01/21 1528 O2 Delivery Room air 01/20 2323 General appearance: alert, awake, oriented Head/Eyes: atraumatic, EOMI, normocephalic, PERR LA Neck: non-tender, no JVD Cardiovascular: regular rate rhythm, normal hear t sounds, BP/pulses equal bilat., no murmur Respiratory: clear to auscultation, no distress, no tenderness, aerating well GI: soft, non-tender, no guarding, no rebound Extremities: no edema-all extremities Musculoskeletal: normal inspection Neuro/INFORMATION MANAGEMENT SPECIALIST: alert, oriented X 3 Quality Medications Current medication review: I attest that the foregoing medication list in t medical record is true, accurate, and complete to the best of my knowled ge. at 0641 [facility] #:[id number] END OF REPORT 2019-01-21 12:24:00-00:00 [facility] ([facility]) Pain Management Progress Note REPORT#:[id number] REPORT STATUS: Signed DATE:01/21/19 TIME: 1224 PATIENT: CARLEE AGUILAR UNIT #: [id number] ROOM/BED: [place] [address] : 69 AGE: 48 SEX: F ATTEND: Key Orozco MD ADM AUTHOR: Alethea Bae REFLEXOLOGIST * ALL edits or amendments must be made on the Advaction/Rew[employer] document * Subjective Comments: No acute issues. Pain improved with PRN meds. wi ll f/u with neuro and pain management outpatient. Allergies Allergy Severity Reaction Updated Coded iodine Severe ITCHING 10/21/17 Sulfa (Sulfonamide Intermediate HIVES 11/16/16 Antibiotics) ketorolac (From TORADOL) Mild RASH 11/16/16 Uncoded IV CONTRAST Severe HIVES, ITCHING, TROUBLE 10/09 03/26 BREATHING. NSIADS Unknown HAD GASTRIC BYPASS 10/25/18 SURGERY Laboratory Tests: 01/21 01/20 01/20 0135 1624 1243 Chemistry POC Glucose (70 - 110 MG/DL) 90 123 H 95 Microbiology: Date/Time Procedure - Status Source Growth 01/20 1026 MRSA DNA Surveillance Screen - COMP NASAL Recent Impressions: [facility] - MRI L-SPINE W/O CON T 01/19 1343 Report Impression - Status: SIGNED Entered: 01/19/2019 1353 IMPRESSION: 1. Mild bilateral neural foraminal narrowing at L4-5 and L5-S1. 2. Mild spinal canal stenosis at L4-5. 3. No disc herniation. SL: [id number] Impression By: Eber Sutton [facility] - MRI BRAIN W/O CONT 01/19 1343 Report Impression - Status: SIGNED Entered: 01/19/2019 1350 IMPRESSION: No acute intracranial abnormality. SL: [id number] Impression By: Eber Sutton Vital Signs: Date Time Temp Pulse Resp B/P B/P Pulse O2 O2 F low FiO2 Mean Ox Delivery Rate 05/16 1203 36.7 84 16 107/67 80.4 95 01/21 1112 61 15 125/76 92.4 94 01/21 0715 36.9 49 18 102/62 75.1 94 / 0550 36.5 54 19 102/68 79.3 95 01/20 2323 36.7 48 14 102/66 78.2 94 Room air 01/20 2014 36.8 73 17 102/63 75.9 94 01/20 1703 36.9 53 20 152/81 104.4 100 01/20 1559 36.4 48 18 135/79 97.5 97 Current Medications Sig/James Start time Last Medication Dose Route Stop Time Status Admin Lorazepam 1 MG Q6H PRN PRN 01/20 1800 AC 01/21 PO 02/19 1759 1116 Morphine Sulfate 2 MG Q4H PRN PRN 01/19 1500 AC 01/21 IV 02/02 1453 0623 Pregabalin 50 MG TID 01/19 1500 AC 01/21 PO 02/18 1459 0830 Hydrocodone Bitart/ 1 TAB Q4H PRN PRN 01/19 144 5 AC 01/20 Acetaminophen PO 02/18 1444 1943 Hydrocodone Bitart/ 1 TAB Q4H PRN PRN 01/19 143 0 AC 01/21 Acetaminophen PO 02/18 1429 0832 Lorazepam 1 MG ONCE PRN 01/19 1215 AC 01/19 IV 02/18 1214 1234 Sodium Chloride 0 ASDIR PRN 01/19 1215 AC IV 02/18 1214 Aspirin 81 MG DAILY 01/19 09 AC 01/21 PO 02/18 0859 0830 Estradiol 1 MG DAILY 01/19 09 AC 01/21 PO 02/18 0859 0831 Levothyroxine Sodium 25 MCG DAILY 01/19 09 AC 01/21 PO 02/18 0859 0830 Lisinopril 10 MG DAILY 01/19 09 AC 01/21 PO 02/18 0859 0831 Loratadine 10 MG DAILY 01/19 0900 AC 01/21 PO 02/18 0859 0830 Pantoprazole 40 MG DAILY 01/19 0900 AC 01/21 PO 02/18 0859 0830 Zolpidem Tartrate 10 MG BEDTIME 01/18 2100 AC PO 02/17 2059 Ketorolac 30 MG Q6H PRN PRN 01/18 1715 AC Tromethamine IV Acetaminophen 650 MG Q4H PRN PRN 01/18 1445 AC PO 02/17 1444 Al Hydrox/Mg Hydrox/ 30 ML Q4H PRN PRN 01/18 14 45 AC 01/20 Simethicone PO 02/17 144 0021 Docusate Sodium 100 MG BID PRN PRN 01/18 1445 A C 01/21 PO 02/17 1444 1116 Ondansetron HCl 4 MG Q4H PRN PRN 01/18 1445 AC 01/20 IV 02/17 1444 0855 Review of Systems Additional notes: No new Objective Physical Exam General appearance: alert, awake Head/Eyes: atraumatic, normocephalic Neck: non-tender, supple Cardiovascular: normal capillary refill, regular rate rhythm Respiratory: no distress, symmetric expansion Abdomen: soft, non-tender Genitourinary: not indicated Extremities: moves all, no clubbing, no cyanosis Neuro/INFORMATION MANAGEMENT SPECIALIST: alert, oriented X 3 Skin: dry, warm Results Results: labs reviewed, vital signs stable Diagnosis, Assessment Plan Problem List/A P: 1. Paresthesia 2. Neuropathy Free text A P: This is a 48-year-old female with a past medical history of neuropathy, Heather-en-Y surgery, hypertension, hypothyroidism, and other comorbidities, who presented to the [facility] room complaining of paresthesias and generalized myalgias. 1. Paraesthesia, new onset - - the patient has had an MRI of the L-spine as well as the brain. MRI L-spine indicates mild foramin al narrowing of L4 to S1 and mild spinal canal stenosis at L4 and L5 with no disk herniation or any spinal cord involvement. MRI of the brain shows no acut e abnormalities. The patient does agree to restart on Lyr ica 50 mg p.o. t.i.d., have an EMG on an outpatient basis, and continue to follow up with Dr. Jones , neurology who has evaluated her. 2. Myalgias, likely from her neuropathic pain. C ontinue to encourage range of motion and activity. 3. Past medical history of hypertension, current ly stable. Continue home medications. 4. Past medical history of hypothyroidism. Check laboratory data. TSH indicates 0.18 values, which may be precipitatin g some of her paraesthesias. 5. History of migraine disorder. Continue home m edications. 6. In regards to her generalized complaints of p ain, she will continue on: A. Morphine 2 mg; q. q6hrs if pt remains hospita lized. B. [place] 5/325 mg will be utilized for pain 4 to 6. C. [place] 10/325 will be utilized for pain rating scale 7 to 10 p.r.n. 7. Deep vein thrombosis as w ell as peptic ulcer disease prevention per internal medicine. The patient does have a history of gas trointestinal bleeds. Will send lyrica and norco f or DC today to [facility]. She can f/u in our office. Information given. at 1226 RPT #:[id number] END OF REPORT 2019-01-21 12:24:00-00:00 [facility] Pain Management Progress Note REPORT#:[id number] REPORT STATUS: Signed DATE:01/21/19 TIME: 1224 PATIENT: CARLEE AGUILAR UNIT #: [id number] ROOM/BED: [place] [address] : 69 AGE: 48 SEX: F ATTEND: Key Orozco MD ADM AUTHOR: Alethea Bae NP * ALL edits or amendments must be made on the el [employer]/computer document * Subjective Comments: No acute issues. Pain improved with PRN meds. wi ll f/u with neuro and pain management outpatient. Allergies Allergy Severity Reaction Updated Coded iodine Severe ITCHING 10/21/17 Sulfa (Sulfonamide Intermediate HIVES 11/16/16 Antibiotics) ketorolac (From TORADOL) Mild RASH 11/16/16 Uncoded IV CONTRAST Severe HIVES, ITCHING, TROUBLE 10/09 03/26 BREATHING. NSIADS Unknown HAD GASTRIC BYPASS 10/25/18 SURGERY Laboratory Tests: 01/21 01/20 01/20 0135 1624 1243 Chemistry POC Glucose (70 - 110 MG/DL) 90 123 H 95 Microbiology: Date/Time Procedure - Status Source Growth 01/20 1026 MRSA DNA Surveillance Screen - COMP NASAL Recent Impressions: [facility] - MRI L-SPINE W/O CON T 01/19 1343 Report Impression - Status: SIGNED Entered: 01/19/2019 1353 IMPRESSION: 1. Mild bilateral neural foraminal narrowing at L4-5 and L5-S1. 2. Mild spinal canal stenosis at L4-5. 3. No disc herniation. SL: [id number] Impression By: Eber Sutton [facility] - MRI BRAIN W/O CONT 01/19 1343 Report Impression - Status: SIGNED Entered: 01/19/2019 1350 IMPRESSION: No acute intracranial abnormality. SL: [id number] Impression By: Eber Sutton Vital Signs: Date Time Temp Pulse Resp B/P B/P Pulse O2 O2 F low FiO2 Mean Ox Delivery Rate 01/21 1203 36.7 84 16 107/67 80.4 95 01/21 1112 61 15 125/76 92.4 94 01/21 0715 36.9 49 18 102/62 75.1 94 01/21 0550 36.5 54 19 102/68 79.3 95 01/20 2323 36.7 48 14 102/66 78.2 94 Room air 01/20 2014 36.8 73 17 102/63 75.9 94 01/20 1703 36.9 53 20 152/81 104.4 100 01/20 1559 36.4 48 18 135/79 97.5 97 Current Medications Sig/James Start time Last Medication Dose Route Stop Time Status Admin Lorazepam 1 MG Q6H PRN PRN 01/20 1800 AC 01/21 PO 02/19 1759 1116 Morphine Sulfate 2 MG Q4H PRN PRN 01/19 1500 AC 01/21 IV 02/02 1453 0623 Pregabalin 50 MG TID 01/19 1500 AC 01/21 PO 02/18 1459 0830 Hydrocodone Bitart/ 1 TAB Q4H PRN PRN 01/19 144 5 AC 01/20 Acetaminophen PO 02/18 1444 1943 Hydrocodone Bitart/ 1 TAB Q4H PRN PRN 01/19 143 0 AC 01/21 Acetaminophen PO 02/18 1429 0832 Lorazepam 1 MG ONCE PRN 01/19 1215 AC 01/19 IV 02/18 1214 1234 Sodium Chloride 0 ASDIR PRN 01/19 1215 AC IV 02/18 1214 Aspirin 81 MG DAILY 01/19 900 AC 01/21 PO 02/18 0859 0830 Estradiol 1 MG DAILY 01/19 900 AC 01/21 PO 02/18 0859 0831 Levothyroxine Sodium 25 MCG DAILY 01/19 900 AC 01/21 PO 02/18 0859 0830 Lisinopril 10 MG DAILY 01/19 09 AC 01/21 PO 02/18 0859 0831 Loratadine 10 MG DAILY 01/19 09 AC 01/21 PO 02/18 0859 0830 Pantoprazole 40 MG DAILY 01/19 900 AC 01/21 PO 02/18 0859 0830 Zolpidem Tartrate 10 MG BEDTIME 01/18 2100 AC PO 02/17 2059 Ketorolac 30 MG Q6H PRN PRN 01/18 1715 AC Tromethamine IV Acetaminophen 650 MG Q4H PRN PRN 01/18 1445 AC PO 02/17 1444 Al Hydrox/Mg Hydrox/ 30 ML Q4H PRN PRN 01/18 14 45 AC 01/20 Simethicone PO 02/17 1444 0021 Docusate Sodium 100 MG BID PRN PRN 01/18 1445 A C 01/21 PO 02/17 1444 1116 Ondansetron HCl 4 MG Q4H PRN PRN 01/18 1445 AC 01/20 IV 02/17 1444 0855 Review of Systems Additional notes: No new Objective Physical Exam General appearance: alert, awake Head/Eyes: atraumatic, normocephalic Neck: non-tender, supple Cardiovascular: normal capillary refill, regular rate rhythm Respiratory: no distress, symmetric expansion Abdomen: soft, non-tender Genitourinary: not indicated Extremities: moves all, no clubbing, no cyanosis Neuro/INFORMATION MANAGEMENT SPECIALIST: alert, oriented X 3 Skin: dry, warm Results Results: labs reviewed, vital signs stable Diagnosis, Assessment Plan Problem List/A P: 1. Paresthesia 2. Neuropathy Free text A P: This is a 48-year-old female with a past medical history of neuropathy, Heather-en-Y surgery, hypertension, hypothyroidism, and other comorbidities, who presented to the [facility] room complaining of paresthesias and generalized myalgias. 1. Paraesthesia, new onset - - the patient has had an MRI of the L-spine as well as the brain. MRI L-spine indicates mild foramin al narrowing of L4 to S1 and mild spinal canal stenosis at L4 and L5 with no disk herniation or any spinal cord involvement. MRI of the brain shows no acut e abnormalities. The patient does agree to restart on Lyr ica 50 mg p.o. t.i.d., have an EMG on an outpatient basis, and continue to follow up with Dr. Jones , neurology who has evaluated her. 2. Myalgias, likely from her neuropathic pain. C ontinue to encourage range of motion and activity. 3. Past medical history of hypertension, current ly stable. Continue home medications. 4. Past medical history of hypothyroidism. Check laboratory data. TSH indicates 0.18 values, which may be precipitatin g some of her paraesthesias. 5. History of migraine disorder. Continue home m edications. 6. In regards to her generalized complaints of p ain, she will continue on: A. Morphine 2 mg; q. q6hrs if pt remains hospita lized. B. [place] 5/325 mg will be utilized for pain 4 to 6. C. [place] 10/325 will be utilized for pain rating scale 7 to 10 p.r.n. 7. Deep vein thrombosis as w ell as peptic ulcer disease prevention per internal medicine. The patient does have a history of gas trointestinal bleeds. Will send lyrica and norco f or DC today to [facility]. She can f/u in our office. Information given. at 1226 Electronically Signed by Cleo Bautista MD on at 1600 RPT #:[id number] END OF REPORT 2019-01-21 11:30:00-00:00 [facility] Neurology Progress Note REPORT#:[id number] REPORT STATUS: Signed DATE:01/21/19 TIME: 1130 PATIENT: CARLEE AGUILAR UNIT #: [id number] ROOM/BED: [place] [address] : 69 AGE: 48 SEX: F ATTEND: Carmelo Orozco MD ADM AUTHOR: Jocelin Jones MD * ALL edits or amendments must be made on the Advaction/computer document * Subjective HPI: pain in legs. Objective Physical Exam VS: Last Documented: Result Date Time Pulse Ox 94 01/21 1112 B/P 125/76 01/21 1112 B/P Mean 92.4 01/21 1112 Pulse 61 01/21 1112 Resp 15 01/21 1112 Temp 36.9 01/21 0715 O2 Delivery Room air 01/20 0483 Medications: Current Home Medications LEVOTHYROXINE (SYNTHROID) 25 MCG PO DAILY metFORMIN (GLUCOPHAGE) 1,000 MG PO BID CETIRIZINE (ZyrTEC) 10 MG PO DAILY LISINOPRIL (ZESTRIL) 10 MG PO DAILY PANTOPRAZOLE DR (PROTONIX) 40 MG PO DAILY ESTRADIOL (ESTRACE) 1 MG PO DAILY diphenhydrAMINE (BENADRYL) 25 MG PO Q12HR ESZOPICLONE (LUNESTA) 3 MG PO BEDTIME PREGABALIN (LYRICA) 50 MG PO TID ASPIRIN EC (ECOTRIN) 81 MG PO DAILY Active Meds + DC'd Last 24 Hrs Lorazepam 1 MG Q6H PRN PRN PO Morphine Sulfate 2 MG Q4H PRN PRN IV Pregabalin 50 MG TID PO Hydrocodone Bitart/Acetaminophen 1 TAB Q4H PRN P RN PO Hydrocodone Bitart/Acetaminophen 1 TAB Q4H PRN PRN PO Lorazepam 1 MG ONCE PRN IV Sodium Chloride 0 ASDIR PRN IV Aspirin 81 MG DAILY PO Estradiol 1 MG DAILY PO Levothyroxine Sodium 25 MCG DAILY PO Lisinopril 10 MG DAILY PO Loratadine 10 MG DAILY PO Pantoprazole 40 MG DAILY PO Zolpidem Tartrate 10 MG BEDTIME PO Ketorolac Tromethamine 30 MG Q6H PRN PRN IV Acetaminophen 650 MG Q4H PRN PRN PO Al Hydrox/Mg Hydrox/Simethicone 30 ML Q4H PRN [place] N PO Docusate Sodium 100 MG BID PRN PRN PO Ondansetron HCl 4 MG Q4H PRN PRN IV General appearance: alert, awake Head/Eyes: atraumatic ENT: moist mucosal membranes Neck: full range of motion Cardiovascular: normal heart sounds Respiratory: aerating well Abdomen: soft Extremities: moves all Musculoskeletal: full range of motion Neuro/INFORMATION MANAGEMENT SPECIALIST: alert, oriented X 4, normal speech, E ELSY, PERRL, CN II-XII intact, reflexes equal bilat, normal reflexes, n o motor deficits, no sensory deficits, no bladder distention normal reflexes Diagnosis, Assessment Plan Problem List/A P: 1. Neuropathy 2. Paresthesia Free Text A P: brain and mri l spine outpt emg start lyrica imaging is reasurring pt ot outpt emg ------- nutritional labs nerve density biopsy as outpt pain manamgent Electronically Signed by Jocelin Jones MD on 01/21 at 1130 RPT #:[id number] END OF REPORT 2019-01-20 13:01:00-00:00 [facility] ([facility]) Pain Management Progress Note REPORT#:[id number] REPORT STATUS: Signed DATE:01/20/19 TIME: 1301 PATIENT: CARLEE AGUILAR UNIT #: [id number] ROOM/BED: [place] [address] : 69 AGE: 48 SEX: F ATTEND: Key Orozco MD ADM AUTHOR: Alethea Bae REFLEXOLOGIST * ALL edits or amendments must be made on the Advaction/computer document * Subjective Comments: pt states pain is better con trolled with initiation of Lyrica and norco. Pending possible DC today. No adverse s/e noted. Allergies Allergy Severity Reaction Updated Coded iodine Severe ITCHING 10/21/17 Sulfa (Sulfonamide Intermediate HIVES 11/16/16 Antibiotics) ketorolac (From TORADOL) Mild RASH 11/16/16 Uncoded IV CONTRAST Severe HIVES, ITCHING, TROUBLE 10/09 03/26 BREATHING. NSIADS Unknown HAD GASTRIC BYPASS 10/25/18 SURGERY Laboratory Tests: 01/19 01/19 01/19 0530 0530 0530 Chemistry Sodium (134 - 147 mEq/L) 143 Potassium (3.4 - 5.0 mEq/L) 3.5 Chloride (100 - 108 mEq/L) 109 H Carbon Dioxide (21 - 33 mEq/L) 27 Anion Gap (0 - 20) 11 BUN (7 - 18 mg/dL) 12 Creatinine (0.6 - 1.3 mg/dL) 0.5 L Glomerular Filtr Rate (95 - 105) 131.1 H Glucose (70 - 110 mg/dL) 150 H Calcium (8.0 - 10.5 mg/dL) 7.9 L Troponin I (0.000 - 0.045 ng/mL) < 0.015 C-Reactive Protein (0.0 - 2.9 MG/L) < 2.9 Vitamin B12 (193 - 986 pg/mL) 386 TSH (0.42 - 5.47) 0.18 L Hematology WBC (4.5 - 11.0 x10 3/uL) 9.71 RBC (3.54 - 5.02 x10 6/uL) 4.09 Hgb (11.0 - 15.0 g/dL) 11.5 Hct (33.0 - 45.0 %) 34.7 MCV (81.0 - 99.0 fL) 84.8 MCH (27.0 - 33.0 pg) 28.1 MCHC (33.0 - 37.0 g/dL) 33.1 RDW (11.5 - 14.5 %) 13.7 Plt Count (150 - 400 x10 3/uL) 221 MPV (7.0 - 9.0 fL) 11.5 H Neut % (Auto) (56.0 - 77.0 %) 79.3 H Lymph % (Auto) (14.0 - 32.0 %) 14.7 [place] % (Auto) (4.8 - 9.0 %) 5.5 Eos % (Auto) (0.3 - 3.7 %) 0.1 L Baso % (Auto) (0.0 - 2.0 %) 0.1 Neut # (Auto) (2.0 - 7.6 x10 3/uL) 7.70 H Lymph # (Auto) (1.0 - 3.8 x10 3/uL) 1.43 [place] # (Auto) (0.1 - 0.8 x10 3/uL) 0.53 Eos # (Auto) (0.0 - 0.2 x10 3/uL) 0.01 Baso # (Auto) (0.0 - 0.2 x10 3/uL) 0.01 Abs Immat Gran (auto) (0.00 - 0.03 x10 3/uL) 0. 03 Add Manual Diff NO Immature Gran % (0.0 - 2.0 %) 0.3 Nucleated RBC % (0 - 0 %) 0.0 Nucleated RBCs # (Man) (0.0 - 0.1 x10 3/uL) 0. 00 ESR Westergren (0 - 20 mm/hr) 2 Microbiology: Date/Time Procedure - Status Source Growth 01/20 1026 MRSA DNA Surveillance Screen - RECD NASAL Recent Impressions: [facility] IMAGING - MRI L-SPINE W/O CON T 01/19 1343 Report Impression - Status: SIGNED Entered: 01/19/2019 1353 IMPRESSION: 1. Mild bilateral neural foraminal narrowing at L4-5 and L5-S1. 2. Mild spinal canal stenosis at L4-5. 3. No disc herniation. SL: [id number] Impression By: Eber Sutton MAGNETIC RESONANCE IMAGING - MRI BRAIN W/O CONT 01/19 1343 Report Impression - Status: SIGNED Entered: 01/19/2019 1350 IMPRESSION: No acute intracranial abnormality. SL: [id number] Impression By: Eber Sutton Vital Signs: Date Time Temp Pulse Resp B/P B/P Pulse O2 O2 F low FiO2 Mean Ox Delivery Rate 01/20 1110 36.6 48 18 149/76 100.0 100 Room air 01/20 0651 36.7 49 16 115/68 83.6 95 01/20 0305 36.7 50 14 112/70 83.7 96 01/20 0018 36.8 47 14 114/61 78.7 95 01/19 1933 36.8 49 16 109/68 81.5 97 Room air 01/19 1627 36.7 47 17 120/79 93.0 97 Simple mask Current Medications Sig/James Start time Last Medication Dose Route Stop Time Status Admin Morphine Sulfate 2 MG Q4H PRN PRN 01/19 1500 AC 01/20 IV 02/02 1453 1135 Pregabalin 50 MG TID 01/19 1500 AC 01/20 PO 02/18 1459 0851 Hydrocodone Bitart/ 1 TAB Q4H PRN PRN 01/19 144 5 AC Acetaminophen PO 02/18 1444 Hydrocodone Bitart/ 1 TAB Q4H PRN PRN 01/19 143 0 AC 01/20 Acetaminophen PO 02/18 1429 0853 Lorazepam 1 MG ONCE PRN 01/19 1215 AC 01/19 IV 02/18 1214 1234 Sodium Chloride 0 ASDIR PRN 01/19 1215 AC IV 02/18 1214 Aspirin 81 MG DAILY 01/19 0900 AC 01/20 PO 02/18 0859 0855 Estradiol 1 MG DAILY 01/19 0900 AC 01/20 PO 02/18 0859 0853 Levothyroxine Sodium 25 MCG DAILY 01/19 0900 AC 01/20 PO 02/18 0859 0851 Lisinopril 10 MG DAILY 01/19 0900 AC 01/20 PO 02/18 0859 0854 Loratadine 10 MG DAILY 01/19 0900 AC 01/20 PO 02/18 0859 0852 Pantoprazole 40 MG DAILY 01/19 0900 AC 01/20 PO 02/18 0859 0851 Zolpidem Tartrate 10 MG BEDTIME 01/18 2100 AC PO 02/17 2059 Morphine Sulfate 2 MG Q2H PRN PRN 01/18 1815 DC 01/19 IV 02/01 1814 1054 Hydrocodone Bitart/ 1 TAB Q4H PRN PRN 01/18 171 5 DC 01/19 Acetaminophen PO 02/17 1714 1407 Ketorolac 30 MG Q6H PRN PRN 01/18 1715 AC Tromethamine IV Acetaminophen 650 MG Q4H PRN PRN 01/18 1445 AC PO 02/17 1444 Al Hydrox/Mg Hydrox/ 30 ML Q4H PRN PRN 01/18 14 45 AC 01/20 Simethicone PO 02/17 1444 0021 Docusate Sodium 100 MG BID PRN PRN 01/18 1445 A C 01/20 PO 02/17 1444 0946 Ondansetron HCl 4 MG Q4H PRN PRN 01/18 1445 AC 01/20 IV 02/17 1444 0855 Review of Systems Additional notes: No new Objective Physical Exam General appearance: alert, awake Head/Eyes: atraumatic, normocephalic Neck: non-tender, supple Cardiovascular: normal capillary refill, regular rate rhythm Respiratory: no distress, symmetric expansion Abdomen: soft, non-tender Genitourinary: not indicated Extremities: moves all, no clubbing, no cyanosis Neuro/INFORMATION MANAGEMENT SPECIALIST: alert, oriented X 3 Skin: dry, warm Results Results: labs reviewed, vital signs stable Diagnosis, Assessment Plan Problem List/A P: 1. Paresthesia 2. Neuropathy Free text A P: This is a 48-year-old female with a past medical history of neuropathy, Heather-en-Y surgery, hypertension, hypothyroidism, and other comorbidities, who presented to the [facility] room complaining of paresthesias and generalized myalgias. 1. Paraesthesia, new onset - - the patient has had an MRI of the L-spine as well as the brain. MRI L-spine indicates mild foramin al narrowing of L4 to S1 and mild spinal canal stenosis at L4 and L5 with no disk herniation or any spinal cord involvement. MRI of the brain shows no acut e abnormalities. The patient does agree to restart on Lyr ica 50 mg p.o. t.i.d., have an EMG on an outpatient basis, and continue to follow up with Dr. Jones , neurology who has evaluated her. 2. Myalgias, likely from her neuropathic pain. C ontinue to encourage range of motion and activity. 3. Past medical history of hypertension, current ly stable. Continue home medications. 4. Past medical history of hypothyroidism. Check laboratory data. TSH indicates 0.18 values, which may be precipitatin g some of her paraesthesias. 5. History of migraine disorder. Continue home m edications. 6. In regards to her generalized complaints of p ain, she will continue on: A. Morphine 2 mg; q. 4 hours p.r.n.-reduce to q6hrs if pt remains hospitalized. B. Olymp[place] 5/325 mg will be utilized for pain 4 to 6. C. [place] 10/325 will be utilized for pain rating scale 7 to 10 p.r.n. 7. Deep vein thrombosis as w ell as peptic ulcer disease prevention per internal medicine. The patient does have a history of gas trointestinal bleeds. Will send lyrica and norco f or DC today to [facility]. She can f/u in our office. Information given. at 1307 RPT #:[id number] END OF REPORT 2019-01-20 13:01:00-00:00 [facility] ([facility]) Pain Management Progress Note REPORT#:[id number] REPORT STATUS: Signed DATE:01/20/19 TIME: 1301 PATIENT: CARLEE AGUILAR UNIT #: [id number] ROOM/BED: [place] [address] : 69 AGE: 48 SEX: F ATTEND: Key Orozco MD ADM AUTHOR: Alethea Bae REFLEXOLOGIST * ALL edits or amendments must be made on the Advaction/Rewalon document * Subjective Comments: pt states pain is better con trolled with initiation of Lyrica and norco. Pending possible DC today. No adverse s/e noted. Allergies Allergy Severity Reaction Updated Coded iodine Severe ITCHING 10/21/17 Sulfa (Sulfonamide Intermediate HIVES 11/16/16 Antibiotics) ketorolac (From TORADOL) Mild RASH 11/16/16 Uncoded IV CONTRAST Severe HIVES, ITCHING, TROUBLE 10/09 03/26 BREATHING. NSIADS Unknown HAD GASTRIC BYPASS 10/25/18 SURGERY Laboratory Tests: 01/19 01/19 01/19 0530 0530 0530 Chemistry Sodium (134 - 147 mEq/L) 143 Potassium (3.4 - 5.0 mEq/L) 3.5 Chloride (100 - 108 mEq/L) 109 H Carbon Dioxide (21 - 33 mEq/L) 27 Anion Gap (0 - 20) 11 BUN (7 - 18 mg/dL) 12 Creatinine (0.6 - 1.3 mg/dL) 0.5 L Glomerular Filtr Rate (95 - 105) 131.1 H Glucose (70 - 110 mg/dL) 150 H Calcium (8.0 - 10.5 mg/dL) 7.9 L Troponin I (0.000 - 0.045 ng/mL) < 0.015 C-Reactive Protein (0.0 - 2.9 MG/L) < 2.9 Vitamin B12 (193 - 986 pg/mL) 386 TSH (0.42 - 5.47) 0.18 L Hematology WBC (4.5 - 11.0 x10 3/uL) 9.71 RBC (3.54 - 5.02 x10 6/uL) 4.09 Hgb (11.0 - 15.0 g/dL) 11.5 Hct (33.0 - 45.0 %) 34.7 MCV (81.0 - 99.0 fL) 84.8 MCH (27.0 - 33.0 pg) 28.1 MCHC (33.0 - 37.0 g/dL) 33.1 RDW (11.5 - 14.5 %) 13.7 Plt Count (150 - 400 x10 3/uL) 221 MPV (7.0 - 9.0 fL) 11.5 H Neut % (Auto) (56.0 - 77.0 %) 79.3 H Lymph % (Auto) (14.0 - 32.0 %) 14.7 [place] % (Auto) (4.8 - 9.0 %) 5.5 Eos % (Auto) (0.3 - 3.7 %) 0.1 L Baso % (Auto) (0.0 - 2.0 %) 0.1 Neut # (Auto) (2.0 - 7.6 x10 3/uL) 7.70 H Lymph # (Auto) (1.0 - 3.8 x10 3/uL) 1.43 [place] # (Auto) (0.1 - 0.8 x10 3/uL) 0.53 Eos # (Auto) (0.0 - 0.2 x10 3/uL) 0.01 Baso # (Auto) (0.0 - 0.2 x10 3/uL) 0.01 Abs Immat Gran (auto) (0.00 - 0.03 x10 3/uL) 0. 03 Add Manual Diff NO Immature Gran % (0.0 - 2.0 %) 0.3 Nucleated RBC % (0 - 0 %) 0.0 Nucleated RBCs # (Man) (0.0 - 0.1 x10 3/uL) 0.0 0 ESR Westergren (0 - 20 mm/hr) 2 Microbiology: Date/Time Procedure - Status Source Growth 01/20 1026 MRSA DNA Surveillance Screen - RECD NASAL Recent Impressions: MAGNETIC RESONANCE IMAGING - MRI L-SPINE W/O CON T 01/19 1343 Report Impression - Status: SIGNED Entered: 01/19/2019 1353 IMPRESSION: 1. Mild bilateral neural foraminal narrowing at L4-5 and L5-S1. 2. Mild spinal canal stenosis at L4-5. 3. No disc herniation. SL: [id number] Impression By: Eber Sutton MAGNETIC RESONANCE IMAGING - MRI BRAIN W/O CONT 01/19 1343 Report Impression - Status: SIGNED Entered: 01/19/2019 1350 IMPRESSION: No acute intracranial abnormality. SL: [id number] Impression By: Eber Sutton Vital Signs: Date Time Temp Pulse Resp B/P B/P Pulse O2 O2 F low FiO2 Mean Ox Delivery Rate 01/20 1110 36.6 48 18 149/76 100.0 100 Room air 01/20 0651 36.7 49 16 115/68 83.6 95 01/20 0305 36.7 50 14 112/70 83.7 96 01/20 0018 36.8 47 14 114/61 78.7 95 01/19 1933 36.8 49 16 109/68 81.5 97 Room air 01/19 1627 36.7 47 17 120/79 93.0 97 Simple mask Current Medications Sig/James Start time Last Medication Dose Route Stop Time Status Admin Morphine Sulfate 2 MG Q4H PRN PRN 01/19 1500 AC 01/20 IV 02/02 1453 1135 Pregabalin 50 MG TID 01/19 1500 AC 01/20 PO 02/18 1459 0851 Hydrocodone Bitart/ 1 TAB Q4H PRN PRN 01/19 144 5 AC Acetaminophen PO 02/18 1444 Hydrocodone Bitart/ 1 TAB Q4H PRN PRN 01/19 143 0 AC 01/20 Acetaminophen PO 02/18 1429 0853 Lorazepam 1 MG ONCE PRN 01/19 1215 AC 01/19 IV 02/18 1214 1234 Sodium Chloride 0 ASDIR PRN 01/19 1215 AC IV 02/18 1214 Aspirin 81 MG DAILY 01/19 0900 AC 01/20 PO 02/18 0859 0855 Estradiol 1 MG DAILY 01/19 0900 AC 01/20 PO 02/18 0859 0853 Levothyroxine Sodium 25 MCG DAILY 01/19 0900 AC 01/20 PO 02/18 0859 0851 Lisinopril 10 MG DAILY 01/19 09 AC 01/20 PO 02/18 0859 0854 Loratadine 10 MG DAILY 01/19 09 AC 01/20 PO 02/18 0859 0852 Pantoprazole 40 MG DAILY 01/19 0900 AC 01/20 PO 02/18 0859 0851 Zolpidem Tartrate 10 MG BEDTIME 01/18 2100 AC PO 02/17 205 Morphine Sulfate 2 MG Q2H PRN PRN 01/18 1815 DC 01/19 IV 02/01 1814 1054 Hydrocodone Bitart/ 1 TAB Q4H PRN PRN 01/18 171 5 DC 01/19 Acetaminophen PO 02/17 1714 1407 Ketorolac 30 MG Q6H PRN PRN 01/18 1715 AC Tromethamine IV Acetaminophen 650 MG Q4H PRN PRN 01/18 1445 AC PO 02/17 1444 Al Hydrox/Mg Hydrox/ 30 ML Q4H PRN PRN 01/18 14 45 AC 01/20 Simethicone PO 02/17 1444 0021 Docusate Sodium 100 MG BID PRN PRN 01/18 1445 A C 01/20 PO 02/17 1444 0946 Ondansetron HCl 4 MG Q4H PRN PRN 01/18 1445 AC 01/20 IV 02/17 1444 0855 Review of Systems Additional notes: No new Objective Physical Exam General appearance: alert, awake Head/Eyes: atraumatic, normocephalic Neck: non-tender, supple Cardiovascular: normal capillary refill, regular rate rhythm Respiratory: no distress, symmetric expansion Abdomen: soft, non-tender Genitourinary: not indicated Extremities: moves all, no clubbing, no cyanosis Neuro/INFORMATION MANAGEMENT SPECIALIST: alert, oriented X 3 Skin: dry, warm Results Results: labs reviewed, vital signs stable Diagnosis, Assessment Plan Problem List/A P: 1. Paresthesia 2. Neuropathy Free text A P: This is a 48-year-old female with a past medical history of neuropathy, Heather-en-Y surgery, hypertension, hypothyroidism, and other comorbidities, who presented to the [facility] room complaining of paresthesias and generalized myalgias. 1. Paraesthesia, new onset - - the patient has had an MRI of the L-spine as well as the brain. MRI L-spine indicates mild foramin al narrowing of L4 to S1 and mild spinal canal stenosis at L4 and L5 with no disk herniation or any spinal cord involvement. MRI of the brain shows no acut e abnormalities. The patient does agree to restart on Lyr ica 50 mg p.o. t.i.d., have an EMG on an outpatient basis, and continue to follow up with Dr. Jones , neurology who has evaluated her. 2. Myalgias, likely from her neuropathic pain. C ontinue to encourage range of motion and activity. 3. Past medical history of hypertension, current ly stable. Continue home medications. 4. Past medical history of hypothyroidism. Check laboratory data. TSH indicates 0.18 values, which may be precipitatin g some of her paraesthesias. 5. History of migraine disorder. Continue home m edications. 6. In regards to her generalized complaints of p ain, she will continue on: A. Morphine 2 mg; q. 4 hours p.r.n.-reduce to q6hrs if pt remains hospitalized. B. [place] 5/325 mg will be utilized for pain 4 to 6. C. [place] 10/325 will be utilized for pain rating scale 7 to 10 p.r.n. 7. Deep vein thrombosis as w ell as peptic ulcer disease prevention per internal medicine. The patient does have a history of gas trointestinal bleeds. Will send lyrica and norco f or DC today to [facility]. She can f/u in our office. Information given. at 1307 Electronically Signed by Cleo Bautista MD on at 1600 RPT #:[id number] END OF REPORT 2019-01-20 11:17:00-00:00 [facility]) Internal Medicine Prog. Note REPORT#:[id number] REPORT STATUS: Signed DATE:01/20/19 TIME: 1117 PATIENT: CARLEE AGUILAR UNIT #: [id number] ROOM/BED: [place] [address] : 69 AGE: 48 SEX: F ATTEND: Key Orozco MD ADM AUTHOR: Nichole Orozco MD * ALL edits or amendments must be made on the Advaction/Rewalon document * Subjective Free Text Subj Notes Free Text Subj Notes: doing ok no new complaints Diagnosis, Assessment Plan Problem List/A P: 1. Pleurisy 2. Paresthesia 3. Chest pain 4. Neuropathy Free Text A P: Continue pain meds as ordered- pain mgmt followi ng, appreciated neurology eval appreciated - outpatient work up planned continue lyrica ok for d/c home at 2354 RPT #:[id number] END OF REPORT 2019-01-20 10:32:00-00:00 [facility] Neurology Progress Note REPORT#:[id number] REPORT STATUS: Signed DATE:01/20/19 TIME: 1032 PATIENT: CARLEE AGUILAR UNIT #: [id number] ROOM/BED: [place] [address] : [birth year] AGE: 48 SEX: F ATTEND: Key Orozco MD ADM AUTHOR: Jocelin Jones MD * ALL edits or amendments must be made on the Advaction/Rewalon document * Subjective HPI: no evidence structural etiology Objective Physical Exam VS: Last Documented: Result Date Time Pulse Ox 95 01/20 0651 B/P 115/68 01/20 0651 B/P Mean 83.6 01/20 0651 Temp 36.7 01/20 0651 Pulse 49 01/20 0651 Resp 16 01/20 0651 O2 Delivery Room air 01/19 1933 Medications: Current Home Medications LEVOTHYROXINE (SYNTHROID) 25 MCG PO DAILY metFORMIN (GLUCOPHAGE) 1,000 MG PO BID CETIRIZINE (ZyrTEC) 10 MG PO DAILY LISINOPRIL (ZESTRIL) 10 MG PO DAILY PANTOPRAZOLE DR (PROTONIX) 40 MG PO DAILY ESTRADIOL (ESTRACE) 1 MG PO DAILY diphenhydrAMINE (BENADRYL) 25 MG PO Q12HR ESZOPICLONE (LUNESTA) 3 MG PO BEDTIME ASPIRIN EC (ECOTRIN) 81 MG PO DAILY Active Meds + DC'd Last 24 Hrs Morphine Sulfate 2 MG Q4H PRN PRN IV Pregabalin 50 MG TID PO Hydrocodone Bitart/Acetaminophen 1 TAB Q4H PRN P RN PO Hydrocodone Bitart/Acetaminophen 1 TAB Q4H PRN P RN PO Lorazepam 1 MG ONCE PRN IV Sodium Chloride 0 ASDIR PRN IV Aspirin 81 MG DAILY PO Estradiol 1 MG DAILY PO Levothyroxine Sodium 25 MCG DAILY PO Lisinopril 10 MG DAILY PO Loratadine 10 MG DAILY PO Pantoprazole 40 MG DAILY PO Zolpidem Tartrate 10 MG BEDTIME PO Morphine Sulfate 2 MG Q2H PRN PRN IV (DC) Hydrocodone Bitart/Acetaminophen 1 TAB Q4H PRN P RN PO (DC) Ketorolac Tromethamine 30 MG Q6H PRN PRN IV Acetaminophen 650 MG Q4H PRN PRN PO Al Hydrox/Mg Hydrox/Simethicone 30 ML Q4H PRN [place] N PO Docusate Sodium 100 MG BID PRN PRN PO Ondansetron HCl 4 MG Q4H PRN PRN IV General appearance: alert, awake Head/Eyes: atraumatic ENT: moist mucosal membranes Neck: full range of motion Cardiovascular: normal heart sounds Respiratory: aerating well Abdomen: soft Extremities: moves all Musculoskeletal: full range of motion Neuro/INFORMATION MANAGEMENT SPECIALIST: alert, oriented X 4, normal speech, E ELSY, PERRL, CN II-XII intact, reflexes equal bilat, normal reflexes, n o motor deficits, no sensory deficits, no bladder distention normal reflexes Diagnosis, Assessment Plan Problem List/A P: 1. Neuropathy 2. Paresthesia Free Text A P: brain and mri l spine outpt emg start lyrica imaging is reasurring pt ot outpt emg Electronically Signed by Jocelin Jones MD on 01/20 at 1033 RPT #:[id number] END OF REPORT 2019-01-19 14:53:00-00:00 [facility] Clinical Note REPORT#:[id number] REPORT STATUS: Signed DATE:01/19/19 TIME: 1453 PATIENT: CARLEE AGUILAR UNIT #: [id number] [address] AGE: 48 SEX: F ATTEND: Key Orozco MD ADM AUTHOR: Alethea Bae REFLEXOLOGIST * ALL edits or amendments must be made on the el ectronic/computer document * Clinical Note Note: Pain management consultation # [id number] at 1454 RPT #:[id number] END OF REPORT 2019-01-19 14:53:00-00:00 [facility] ([facility]) Clinical Note REPORT#:[id number] REPORT STATUS: Signed DATE:01/19/19 TIME: 1453 PATIENT: CARLEE AGUILAR UNIT #: [id number] ROOM/BED: [place] [address] : 68 AGE: 48 SEX: F ATTEND: Key Orozco MD ADM AUTHOR: Alethea Bae NP * ALL edits or amendments must be made on the Advaction/Rewalon document * Clinical Note Note: Pain management consultation # [id number] at 1454 Electronically Signed by Cleo Bautista MD on at 1600 RPT #:[id number] END OF REPORT 2019-01-19 14:47:00-00:00 [id number] [place] [id number] PATIENT NAME: CARLEE AGUILAR ADMIT DATE: 01/18/19 ACCOUNT NO: [id number] [place] [facility] [place]GE: 48 REPORT TYPE: CONSULTATION REPORT SEX: F ADMITTING PHYSICIAN:Nichole Orozco MD ATTENDING PHYSICIAN:Nichole Orozco MD CONSULTATION DATE: 01/19/2019 CONSULTING PHYSICIAN: Cleo Bautista MD PAIN MANAGEMENT CONSULTATION NOTE PHYSICIAN REQUESTING CONSULTATION: Nichole burgos MD PHYSICIAN COMPLETING CONSULTATION: Cleo Bautista MD REASON FOR CONSULTATION: Neuropathic pain. HISTORY OF PRESENT ILLNESS: This is a 48-year-o ld female with a past medical history of hypothyroidism, migraines, hypertensi on, IBS, sleep apnea, GI bleeding, and other comorbidities, who presented to the emergency room complaining of heaviness to the bilateral upper arms as well as right leg aching, throbbing and burnin g to the toes. The patient was attempting to get in with neurology on an outpatient basis; however, had yet to be able to do so. She has been evaluated by neurology on an inpati ent status. The patient has been trialed on both Lyrica and Neurontin in the past for her neuropathic pain. The gabapentin was unsuccessful and Lyri ca in the past has caused her a weight gain of 50 pounds according to her statement. Sh ferny is in agreement to trialing it again. The patient states that her pain is lo cated to the bilateral upper extremities and the presence of pressure and hea viness. 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 This started recently within the past w [place]. In regards to her bilateral lower extremity pain, her right is sig nificantly greater than her left. She does have numbness and tingling to the first 3 toes, which are burning, stabbing, and sting ing in nature and the right leg feels significantly aching and heavy. She has not had any further as sociated symptoms. No further radiating locations. She currently denie s any type of aggravating factors that she is aware of and she has found that t he only thing that helps alleviate her pain in any way is IV morphine. She has been tri alled on payworks during her hospitalization with no success of assist in man aging her pain. PAST MEDICAL HISTORY: Hypertension, migraine dis order, hypothyroidism, obstructive sleep apnea, irritable bowel syndrom e, and neuropathy. PAST SURGICAL HISTORY: Cholecystectomy, hysterec gerardo, and Heather-en-Y surgery. FAMILY HISTORY: Noncontributory. SOCIAL HISTORY: The patient is a former smoker. She currently denies any PATIENT NAME: CARLEE AGUILAR [id number] [place] [address] PATIENT NAME: CARLEE AGUILAR ADMIT DATE: 01/18/19 ACCOUNT NO: [id number] ROOM NO: G.[id number] AGE: 48 REPORT TYPE: CONSULTATION REPORT SEX: F ADMITTING PHYSICIAN:Nichole Orozco MD ATTENDING PHYSICIAN:Nichole Orozco MD recreational drug use and/or alcohol. MEDICATIONS: Medications have been reviewed per the MAR. ALLERGIES: INCLUDE IODINE, SULFA, AND TORADOL WELL INTOLERANCES TO IV CONTRAST. REVIEW OF SYSTEMS: Twelve-point review of system s was completed with the patient and pertinent positives are located in t he HPI. PHYSICAL EXAMINATION: VITAL SIGNS: Currently stable. The patient is af ebrile. GENERAL: The patient is awak e and alert, lying in bed, in no apparent distress. HEAD, EYES, EARS, NOSE, AND THROAT: Normocephali c and atraumatic. Extraocular movements are intact. NECK: Supple. Nontender. CARDIOVASCULAR: Regular rate and rhythm. S1 and S2. CHEST: Equal and symmetrical in chest rise and f all. No apparent distress. ABDOMEN: Soft and nontender. Bowel sounds x4. GENITOURINARY: Deferred. RECTAL: Deferred. EXTREMITIES: Currently, no clubbing or cyanosis is noted. MUSCULOSKELETAL: The patient is able to move all upper and lower extremities. NEUROLOGICAL: Awake, alert, and oriented x3 with normal speech. PSYCHIATRIC: Appropriate mood and affect. LABORATORY DATA: Laboratory data has been review ed. RADIOLOGICAL DATA: Radiological data has been re viewed. ASSESSMENT AND PLAN: This is a 48-year-old femal e with a past medical history of neuropathy, Heather-en-Y surgery, hypertension, hypothyroidism, and other comorbidities, who presented to the [facility] room complaining of paresthesias and generalized myalgias. 1. Paraesthesia, new onset - - the patient has had an MRI of the L-spine as well as the brain. MRI L-spine indicates mild foramin al narrowing of L4 to S1 and mild spinal canal stenosis at L4 and L5 with no disk herniation or any spinal cord involvement. MRI of the brain shows no acut e abnormalities. The patient does agree to restart on Lyr ica 50 mg p.o. t.i.d., have an EMG on an outpatient basis, and continue to follow up with Dr. Jones , neurology who has evaluated her. 2. Myalgias, likely from her neuropathic pain. C ontinue to encourage range of PATIENT NAME: CARLEE AGUILAR [id number] [place] [address] PATIENT NAME: CARLEE AGUILAR ADMIT DATE: 01/18/19 ACCOUNT NO: [id number] [place] [facility] [place] 48 REPORT TYPE: CONSULTATION REPORT SEX: F ADMITTING PHYSICIAN:Nichole Orozco MD ATTENDING PHYSICIAN:Nichole Orozco MD motion and activity. 3. Past medical history of hypertension, current ly stable. Continue home medications. 4. Past medical history of hypothyroidism. Check laboratory data. TSH indicates 0.18 values, which may be precipitatin g some of her paraesthesias. 5. History of migraine disorder. Continue home m edications. 6. In regards to her generalized complaints of p ain, she will continue on: A. Morphine 2 mg; however, it will be reduced to q. 4 hours p.r.n. B. [place] 5/325 mg will be utilized for pain 4 to 6. C. [place] 10/325 will be utilized for pain rating scale 7 to 10 p.r.n. 7. Deep vein thrombosis as w ell as peptic ulcer disease prevention per internal medicine. The patient does have a history of gas trointestinal bleeds. Plan of care has been discussed with the patient . The patient is in agreement with the following plan of care. Questions and c oncerns have been answered to her satisfaction, verbalized understanding, and wishes to proceed. Thank you very much for this consultation. We wi ll continue to follow along with you. Should you have any questions or concerns, please feel free to call. We will titrate to the patient's needs a s well as monitor for any adverse side effects. Dictated By: Alethea Bae NP for Cleo baca MD I have reviewed the patient's data, labs, imagin g and have discussed the plan of care with Alethea Bae REFLEXOLOGIST. I agree with the above documentation and plan. WT: [id number]:[id number]/NTS Conf#: [id number]/DID#: [id number] Authenticated and Edited by Alethea Bae NP O n 01/20/19 1:49:24 PM Authenticated and Edited by Cleo Bautista MD On 01/23/19 4:07:44 PM Electronically Signed by Cleo Bautista MD on at 1609 at 1609 PATIENT NAME: CARLEE AGUILAR 2019-01-19 12:45:00-00:00 [facility] REPORT#:[id number] REPORT STATUS: Signed DATE:01/19/19 TIME: 1245 PATIENT: CARLEE AGUILAR UNIT #: [id number] ROOM/BED: [place] [address] : 69 AGE: 48 SEX: F ATTEND: Key Orozco MD ADM AUTHOR: Nichole Orozco MD * ALL edits or amendments must be made on the Advaction/computer document * Subjective Free Text Subj Notes Free Text Subj Notes: doing well HR more stable Objective General VS/I O: Vital Signs Date Temp Pulse Resp B/P B/P Mean Pulse Ox FiO2 01/20 36.4-36.9 47-73 14-20 102-152/61-81 75.9- 104.4 94-100 Last Documented: Result Date Time Pulse Ox 94 01/20 232 B/P 102/66 01/20 2323 B/P Mean 78.2 01/20 232 O2 Delivery Room air 01/20 2323 Temp 36.7 01/20 232 Pulse 48 01/20 2323 Resp 14 01/20 232 24 hour I O ending at 0700: 01/20 0700 01/19 1900 Intake Total 480 Output Total Balance 480 Intake, Oral 480 Number Voids 2 Physical Exam General appearance: alert, awake, oriented Head/Eyes: atraumatic, EOMI, normocephalic, PERR LA Neck: non-tender, no JVD Cardiovascular: normal heart sounds, regular rat e rhythm, no murmur Respiratory: aerating well, clear to auscultatio n, symmetric expansion, no distress Abdomen: non-tender, normal bowel sounds, soft, no distention Extremities: Extremities: no edema Musculoskeletal: full range of motion, normal in spection Diagnosis, Assessment Plan Problem List/A P: 1. Pleurisy 2. Paresthesia 3. Chest pain 4. Neuropathy Free Text A P: Follow labs Continue metoprolol cardiology following, appreciated await EP eval activity as tolerates at 2353 RPT #:[id number] END OF REPORT 2019-01-19 10:16:00-00:00 [facility]) Neurology Consultation Note REPORT#:[id number] REPORT STATUS: Signed DATE:01/19/19 TIME: 1016 PATIENT: CARLEE AGUILAR UNIT #: [id number] ROOM/BED: [place] [address] : 69 AGE: 48 SEX: F ATTEND: Key Orozco MD ADM AUTHOR: Jocelin Jones MD * ALL edits or amendments must be made on the Advaction/computer document * History of Present Illness HPI Chief complaint: pain in chest and legs HPI: 48 year old female presents to the ED wi th bilateral chest pain, also endorses weakness and pain to extremi ties. Reports has a history of neuropathy, rou-en-y bariatric surgery, and has been ahving the leg p ain and numbness for about 5 days. she states she has weakness in her legs as well has been referred to Neurologist but not been ab le to schedule an appointment yet. States symptoms began 1 week ago and progre ssively worsening. No fever, chills, shortness of breath, nausea/vomi ting, abdominal pain, nausea/vomiting. History - Adult longitudinal Past medical history: Reports: Hypertension, Headache disorder, Thyroi d disorder (Hypothyroid). Additional medical history: IBS, Sleep Apnea Past surgical history: Reports: Cholecystectomy, Hysterectomy. Additional surgical history: bariatric surgery Additional family history: Reviewed, non contributory Alcohol use: Denies EtOH use Drug use: Denies recreational drugs Smoking status for patients 13 years old or olde r: Former Smoker Other social history: Local resident Allergies: Coded Allergies: iodine (Severe, ITCHING 10/21/17) Sulfa (Sulfonamide Antibiotics) (Intermediate, H LAURITA 11/16/16) ketorolac (From TORADOL) (Mild, RASH 11/16/16) Uncoded Allergies: IV CONTRAST (Severe, HIVES, ITCHING, TROUBLE GEORGI ATHING. 10/25/18) NSIADS (HAD GASTRIC BYPASS SURGERY 10/25/18) Review of Systems Constitutional: Reports: generalized weakness. Musculoskeletal: Reports: extremity pain, myalgias. Neuro: Denies: unable to speak, vision change, weakness . Systems reviewed negative: allergy/Immun, cardio vascular, constitutional, endocrine, ENT, eyes, GI, , heme, musculoskeletal, neuro, psych, respiratory, skin Objective Physical Exam VS: Last Documented: Result Date Time Pulse Ox 100 01/19 0757 B/P 137/82 01/19 0757 B/P Mean 100.1 01/19 0757 Temp 36.8 01/19 0757 Pulse 47 01/19 0757 Resp 14 01/19 0757 O2 Delivery Room air 01/188 Medications: Current Home Medications LEVOTHYROXINE (SYNTHROID) 25 MCG PO DAILY metFORMIN (GLUCOPHAGE) 1,000 MG PO BID CETIRIZINE (ZyrTEC) 10 MG PO DAILY LISINOPRIL (ZESTRIL) 10 MG PO DAILY PANTOPRAZOLE DR (PROTONIX) 40 MG PO DAILY ESTRADIOL (ESTRACE) 1 MG PO DAILY diphenhydrAMINE (BENADRYL) 25 MG PO Q12HR ESZOPICLONE (LUNESTA) 3 MG PO BEDTIME ASPIRIN EC (ECOTRIN) 81 MG PO DAILY Active Meds + DC'd Last 24 Hrs Aspirin 81 MG DAILY PO Estradiol 1 MG DAILY PO Levothyroxine Sodium 25 MCG DAILY PO Lisinopril 10 MG DAILY PO Loratadine 10 MG DAILY PO Pantoprazole 40 MG DAILY PO Zolpidem Tartrate 10 MG BEDTIME PO Morphine Sulfate 2 MG Q2H PRN PRN IV Hydrocodone Bitart/Acetaminophen 1 TAB Q4H PRN P RN PO Ketorolac Tromethamine 30 MG Q6H PRN PRN IV Acetaminophen 650 MG Q4H PRN PRN PO Al Hydrox/Mg Hydrox/Simethicone 30 ML Q4H PRN [place] N PO Docusate Sodium 100 MG BID PRN PRN PO Ondansetron HCl 4 MG Q4H PRN PRN IV Methylprednisolone Sodium Succinate 200 MG X1ED IV (DC) Sodium Chloride 0 ASDIR PRN IV (DC) General appearance: alert, awake Head/Eyes: atraumatic ENT: moist mucosal membranes Neck: full range of motion Cardiovascular: normal heart sounds Respiratory: aerating well Abdomen: soft Extremities: moves all Musculoskeletal: full range of motion Neuro/INFORMATION MANAGEMENT SPECIALIST: alert, oriented X 4, normal speech, E ELSY, PERRL, CN II-XII intact, reflexes equal bilat, normal reflexes, n o motor deficits, no sensory deficits, no bladder distention normal reflexes Diagnosis, Assessment Plan Problem List/A P: 1. Neuropathy 2. Paresthesia Free Text DxA P Notes: brain and mri l spine outpt emg start lyrica Electronically Signed by Jocelin Jones MD on 01/19 at 1020 RPT #:[id number] END OF REPORT 2019-01-18 14:46:00-00:00 [facility] ([facility]) History Physical - Adult REPORT#:[id number] REPORT STATUS: Signed DATE:01/18/19 TIME: 1446 PATIENT: CARLEE AGUILAR UNIT #: [id number] ROOM/BED: [place] [address] : 69 AGE: 48 SEX: F ATTEND: Key Orozco MD ADM AUTHOR: Nichole Orozco MD * ALL edits or amendments must be made on the Advaction/computer document * History of Present Illness HPI Chief complaint: chest pain, pain/weakness to extremities Free Text HPI Notes Free Text HPI Notes: 48 year old female presents to the ED wi th bilateral chest pain, also endorses weakness and pain to extremities. Reports has a history of neuropathy and has been referred to Neurologist but not bee n able to schedule an appointment yet. States symptoms began 1 week ago and progressively worsening. No fever, chills, shortness of breath, nausea/vomiting, abdominal pain, nausea/vomiting. History Past medical history: Reports: Hypertension, Headache disorder, Thyroi d disorder (Hypothyroid). Additional medical history: IBS, Sleep Apnea Past surgical history: Reports: Cholecystectomy, Hysterectomy. Additional surgical history: bariatric surgery Additional family history: Reviewed, non contributory Alcohol use: Denies EtOH use Drug use: Denies recreational drugs Smoking status for patients 13 years old or olde r: Former Smoker Other social history: Local resident Medication/Allergy-Vaccine Hx Allergies: Coded Allergies: iodine (Severe, ITCHING 10/21/17) Sulfa (Sulfonamide Antibiotics) (Intermediate, H LAURITA 11/16/16) ketorolac (From TORADOL) (Mild, RASH 11/16/16) Uncoded Allergies: IV CONTRAST (Severe, HIVES, ITCHING, TROUBLE GEORGI ATHING. 10/25/18) NSIADS (HAD GASTRIC BYPASS SURGERY 10/25/18) Review of Systems Constitutional: Denies: chills, fatigue, generalized weakness. Skin: Denies: abrasion, bruising. Allergy/Immun: Denies: allergic reaction, anaphylaxis. Eyes: Denies: redness, discharge. ENT: Denies: ear drainage, ear ringing. Respiratory: Denies: MA (dyspnea on exertion), hemoptysis. Cardiovascular: Reports: chest pain. Denies: MA (dyspnea on exe rtion). GI: Denies: abdominal pain, anorexia. : Denies: dysuria, flank pain. Musculoskeletal: Denies: arthritis, extremity pain. Heme: Denies: adenopathy, bleeding. Endocrine: Denies: cold intolerance, heat intolerance. Neuro: Denies: bladder dysfunction, bowel dysfunction. Psych: Denies: agitation, anxiety. Physical Exam VS/I O Vital Signs: Date Time Temp Pulse Resp B/P B/P Pulse O2 O2 F low FiO2 Mean Ox Delivery Rate 01/18 1255 36.7 53 16 131/83 98.8 97 Room air 01/18 1107 46 18 144/65 91 95 Room air 01/18 0656 36.9 59 18 143/67 92 98 Room air 24 hour I O ending at 0700: 01/18 0700 01/17 1900 Intake Total Output Total Balance Patient 95.9 kg Weight Weight Bed scale Measurement Method General appearance: alert, awake, oriented Head/Eyes: atraumatic, EOMI, normocephalic, PERR LA ENT: moist mucosal membranes Neck: non-tender, no JVD Cardiovascular: regular rate rhythm, normal hear t sounds, no murmur Respiratory: clear to auscultation, no distress, no tenderness, aerating well Abdomen/GI: active bowel sounds, soft, non-tende r, no guarding Extremities: moves all Musculoskeletal: normal inspection Neuro/INFORMATION MANAGEMENT SPECIALIST: alert, oriented X 3 Diagnosis, Assessment Plan Problem List/A P: 1. Pleurisy 2. Paresthesia 3. Chest pain 4. Neuropathy Free Text DxA P Notes Free Text DxA P Notes: Rsume home medications CTA chest noted check ESR, CRP B12, TSH, a1c pain control as ordered pain mgmt and neurology consulted Quality Medications Current medication review: I attest that the foregoing medication list in [facility] medical record is true, accurate, and complete to the best of my knowled ge. at 1519 RPT #:[id number] END OF REPORT 2019-01-18 07:09:00-00:00 [facility] ([facility] REPORT REPORT#:[id number] REPORT STATUS: Signed DATE:01/18/19 TIME: 708 PATIENT: CARLEE AGUILAR UNIT #: [id number] ROOM/BED: [place] [address] AGE: 48 SEX: F PCP PHYS: Collin Beasley MD SERVICE AUTHOR: Dick Silverman MD * ALL edits or amendments must be made on the Advaction/computer document * HPI-GI Bleed/Rectal Prob General Confirmed Patient Yes Initial Greet Date/Time 01/18/19 0649 PCP Collin Beasley - PCP ([facility]) Presentation Chief Complaint Rectal bleeding Bleeding Severity Moderate Hx Obtained From Patient Onset Occurred Yesterday Symptom Duration Since onset Progression since Onset Unchanged Associated with Reports: Chest pain, Shortness of breath, Weakne ss. Free Text HPI Notes Free Text HPI Notes 48 yo F w/ PMHx of HTN presents to ED d/t rectal bleeding and CP . Pt reports moderate bleeding from rectum that started yeste rday w/ no improvement. Today she developed substernal chest pressure that cau sed her to see ED. She notes assoc heaviness/weakness to all extremities and SOB. Denies any other sxs. Portions of this section were scribed by Teressa Hollingsworth on 01/18/19 at 1128 Risk-Chest Pain 40 and Over Risk Stratification )( Coronary Artery Disease Risk factors reviewed )( Thoracic Aortic Dissection Risk factors revie wed )( Pulmonary Embolism Risk factors reviewed )( AMI-Aspirin Aspirin Last 24 Hrs Not indicated )( HEART for MACE )( HEART for MACE Response Value History Low index of suspicion 0 ECG Interpretation Normal ECG 0 Age Age 45 - 65 1 Risk Factors for CAD No risk factors known 0 Troponin < or = to NL troponin 0 Total 1 Portions of this section were scribed by Teressa Hollingsworth on 01/18/19 at 0805 Review of Systems ROS Statements All systems rev neg except as marked. Focused Review of Systems Constitutional Reports: Weakness - generalized. Respiratory Reports: Shortness of breath. Cardiovascular Reports: Chest pain. GI Denies: Abdominal pain, Nausea, Vomiting. Additional Review of Systems Musculoskeletal Reports: Extremity pain. Portions of this section were scribed by Teressa Hollingsworth on 01/18/19 at 0709 Past Medical History - Adult Stated Complaint CHEST PAIN, RECTAL BLEEDING.HX BARIATRIC JAMES Allergies Coded Allergies: iodine (Severe, ITCHING 10/21/17) Sulfa (Sulfonamide Antibiotics) (Intermediate, H LAURITA 11/16/16) ketorolac (From TORADOL) (Mild, RASH 11/16/16) Uncoded Allergies: IV CONTRAST (Severe, HIVES, ITCHING, TROUBLE GEORGI ATHING. 10/25/18) NSIADS (HAD GASTRIC BYPASS SURGERY 10/25/18) Home Medications Active Scripts ASPIRIN EC (ECOTRIN) 81 MG PO DAILY ASPIRIN EC (ECOTRIN) 81 MG PO DAILY #100 TABS Prov: 10/26/18 Reported Medications LEVOTHYROXINE (SYNTHROID) 25 MCG PO DAILY metFORMIN (GLUCOPHAGE) 1,000 MG PO BID CETIRIZINE (ZyrTEC) 10 MG PO DAILY LISINOPRIL (ZESTRIL) 10 MG PO DAILY PANTOPRAZOLE DR (PROTONIX) 40 MG PO DAILY ESTRADIOL (ESTRACE) 1 MG PO DAILY diphenhydrAMINE (BENADRYL) 25 MG PO Q12HR ESZOPICLONE (LUNESTA) 3 MG PO BEDTIME Past Medical History: Reports: Hypertension, Headache disorder, Thyroi d disorder (Hypothyroid). Additional Medical History IBS, Sleep Apnea Past Surgical History: Reports: Cholecystectomy, Hysterectomy. Additional Surgical History bariatric surgery Alcohol Use Denies EtOH use Smoking status for patients 13 years old or olde r: Former Smoker Other Social History Local resident Portions of this section were scribed by Teressa Hollingsworth on 01/18/19 at 0709 Physical Exam Vital Signs Vital Signs First Documented: Result Date Time Pulse Ox 98 01/18 0656 B/P 143/67 01/18 0656 B/P Mean 92 01/18 0656 O2 Delivery Room air 01/18 0656 Temp 36.9 01/18 0656 Pulse 59 01/18 0656 Resp 18 01/18 0656 Last Documented: Result Date Time Pulse Ox 95 01/18 1107 B/P 144/65 01/18 1107 B/P Mean 91 01/18 1107 O2 Delivery Room air 01/18 1107 Pulse 46 01/18 1107 Resp 18 01/18 1107 Temp 36.9 01/18 0656 Review of Vital Signs Reviewed Focused PE General/Const General/Const Awake, Alert, No acute distress, Well developed, Cooperative, Not toxic appearing Ears/Nose/Throat Ears/Nose/Throat Airway patent, Mucous membrane s moist Resp/Chest Respiratory/Chest Breath sounds NL, Breath soun ds = bilat, No rales, No rhonchi, No wheezing, No retractions Cardiovascular Cardiovascular Heart rate NL, Regular rhythm, H eart sounds NL Abdomen/GI Abdomen/GI Soft, Non-tender, No guarding, No re bound, No distention Skin Skin Warm, Dry, Intact Neurologic Neurologic Oriented X3, Speech NL Additional PE MS Head Head Atraumatic, Normocephalic Eyes Eyes EOMI, Conjunctiva NL MS Lower Extrem Lower Ext/Pelvis/MS Inspection NL, No edema Portions of this section were scribed by Teressa Hollingsworth on 01/18/19 at 1128 Interpretation Diagnostics Lab Results Interpretation Results Laboratory Tests 01/18/19 0735: [Embedded Image Not Available] 01/18/19 0720: [Embedded Image Not Available] Laboratory Tests: 01/18 01/18 01/18 0735 0733 0720 Chemistry POC Sodium (134 - 147 MMOL/L) 142 POC Potassium (3.4 - 5.0 MMOL/L) 3.4 POC Chloride (100 - 108 MMOL/L) 103 Carbon Dioxide (21 - 33 mmol/L) 24.0 POC BUN (7 - 18 MG/DL) 9 POC Creatinine (0.6 - 1.3 MG/DL) 0.5 L Estimated GFR (MDRD) (ML/MIN) 139 POC Glucose (70 - 110 MG/DL) 81 POC Ioniz Calcium Aliya (1.12 - 1.32 MG/DL) 1.21 Total Bilirubin (0.0 - 1.0 mg/dL) 0.40 Direct Bilirubin (0.0 - 0.30 MG/DL) < 0.10 Indirect Bilirubin (MG/DL) 0.30 AST (15 - 37 IUnit/L) 11 L ALT (15 - 65 IUnit/L) 29 Total Alk Phosphatase (20 - 125 IUnit/L) 98 Rapid Troponin I (0.00 - 0.08 ng/mL) 0.01 Total Protein (6.4 - 8.2 g/dL) 7.1 Albumin (3.4 - 5.0 g/dL) 3.60 Lipase (73 - 393 IUnit/L) 88 Coagulation D-Dimer (<=500 ng/mlFEU) 801 *H Hematology WBC (4.5 - 11.0 x10 3/uL) 5.39 RBC (3.54 - 5.02 x10 6/uL) 4.45 Hgb (11.0 - 15.0 g/dL) 12.3 Hct (33.0 - 45.0 %) 37.0 MCV (81.0 - 99.0 fL) 83.1 MCH (27.0 - 33.0 pg) 27.6 MCHC (33.0 - 37.0 g/dL) 33.2 RDW (11.5 - 14.5 %) 13.7 Plt Count (150 - 400 x10 3/uL) 238 MPV (7.0 - 9.0 fL) 11.1 H Neut % (Auto) (56.0 - 77.0 %) 57.1 Lymph % (Auto) (14.0 - 32.0 %) 32.1 H [place] % (Auto) (4.8 - 9.0 %) 7.2 Eos % (Auto) (0.3 - 3.7 %) 3.0 Baso % (Auto) (0.0 - 2.0 %) 0.4 Neut # (Auto) (2.0 - 7.6 x10 3/uL) 3.08 Lymph # (Auto) (1.0 - 3.8 x10 3/uL) 1.73 [place] # (Auto) (0.1 - 0.8 x10 3/uL) 0.39 Eos # (Auto) (0.0 - 0.2 x10 3/uL) 0.16 Baso # (Auto) (0.0 - 0.2 x10 3/uL) 0.02 Abs Immat Gran (auto) (0.00 - 0.03 x10 3/uL) 0. 01 Add Manual Diff NO Immature Gran % (0.0 - 2.0 %) 0.2 Nucleated RBC % (0 - 0 %) 0.0 Nucleated RBCs # (Man) (0.0 - 0.1 x10 3/uL) 0.0 0 Microbiology: Date/Time Procedure - Status Source Growth 01/18 1129 MRSA DNA Surveillance Screen - ORD NASAL Recent Impressions: RADIOLOGY - XR CHEST 2 V 01/18 758 Report Impression - Status: SIGNED Entered: 01/18/201904 IMPRESSION: Normal Chest X-ray. Impression By: Hans Tamayo M.D. CAT SCAN - CT ANGIO CHEST 01/18 1018 Report Impression - Status: SIGNED Entered: 01/18/2019 1042 IMPRESSION: 1. Negative for pulmonary embolism. 2. No acute abnormality demonstrated to account for the patient's symptoms. SL: [id number] Impression By: Lexx Diaz M.D. Lab Imaging Statement Laboratory radiographic studies reviewed and con sidered in the medical decision-making. Point of Care Testing Pulse Oximetry Pulse Ox % 98 On: Room air Interpretation Interpreted by me, Pulse oximetr y normal Time 0656 ECG #1 Interpretation Date 01/18/19 Time 0734 Interpreted by ED physician NL ECG Interpretation Normal sinus rhythm, No ST NORBERTO, Normal axis, Normal intervals, no T wave inversions, no ST elevation s Rate 54 Rhythm Bradycardia Free Text I D Notes Free Text I D Notes RADIOLOGY - XR CHEST 2 V 01/188 Report Impression - Status: SIGNED Entered: 01/18/2019 0804 Interpreted by Radiologist Reviewed by ED Physician IMPRESSION: Normal Chest X-ray. Impression By: tNILESH Tamayo M.D. CAT SCAN - CT ANGIO CHEST 01/18 1018 Report Impression - Status: SIGNED Entered: 01/18/2019 1042 Interpreted by Radiologist Reviewed by ED Physician IMPRESSION: 1. Negative for pulmonary embolism. 2. No acute abnormality demonstrated to account for the patient's symptoms. SL: [id number] Impression By: Lexx Diaz M.D. Portions of this section were scribed by Teressa Hollingsworth on 01/18/19 at 1128 Re-Evaluation MDM Free Text MDM Notes Free Text MDM Notes Mild distress, VSS, afebrile. Aspirin not given d/t c/o rectal bleeding yesterday. D-dimer was elevated therefore CTA wa s done. CTA did not show PE. Patient continued to have pain, therefore will a dmit for ACS evaluation. Re-Evaluation/Progress #1 Text/Dict Note Pt is stable in room and sta giovanni CP is improved. Discussed results/diagnosis and need for admission for further care. Pt understa nds and agrees w/ plan. Time of Re-Eval 1129 Re-Eval Status Unchanged ED Course Medication(s) Ordered Medication(s) Ordered: Antihistamine Drugs Sig/James Start time Last Medication Dose Route Stop Time Status Admin Diphenhydramine HCl 25 MG X1ED STA 01/18 0841 D C 01/18 IV 01/18 0842 0930 Central Nervous System Agents Sig/James Start time Last Medication Dose Route Stop Time Status Admin Morphine Sulfate 4 MG X1ED STA 01/18 1009 DC 0 01/18 IV 01/18 1010 1107 Hydrocodone Bitart/ 1 TAB X1ED STA 01/18 0748 D C 01/18 Acetaminophen PO 01/18 0749 0806 Diagnostic Agents Sig/James Start time Last Medication Dose Route Stop Time Status Admin Iopamidol 100 ML .STK-MED ONE 01/18 1006 DC IV 01/18 1007 1006 Electrolytic, Caloric, And [place] Sig/James Start time Last Medication Dose Route Stop Time Status Admin Sodium Chloride 0 ASDIR PRN 01/18 0715 AC IV 01/19 0613 Gastrointestinal Drugs Sig/James Start time Last Medication Dose Route Stop Time Status Admin Ondansetron HCl 8 MG X1ED STA 01/18 0740 DC PO 01/18 0741 0745 Hormones And Synthetic Substit Sig/James Start time Last Medication Dose Route Stop Time Status Admin Methylprednisolone 200 MG X1ED 01/18 0930 CKD 0 01/18 Sodium Succinate IV 01/18 1330 0931 Methylprednisolone 200 MG X1ED STA 01/18 0909 D C Sodium Succinate IV 01/18 0910 Portions of this section were scribed by Teressa Hollingsworth on 01/18/19 at 1128 Patient Discharge Departure Vital Signs/Condition Vital Signs First Documented: Result Date Time Pulse Ox 98 01/18 0656 B/P 143/67 01/18 0656 B/P Mean 92 01/18 0656 O2 Delivery Room air 01/18 0656 Temp 36.9 01/18 0656 Pulse 59 01/18 0656 Resp 18 01/18 0656 Last Documented: Result Date Time Pulse Ox 95 01/18 1107 B/P 144/65 01/18 1107 B/P Mean 91 01/18 1107 O2 Delivery Room air 01/18 1107 Pulse 46 01/18 1107 Resp 18 01/18 1107 Temp 36.9 01/18 0656 All vital signs available at the time of this en try have been reviewed. Condition Stable Clinical Impression Clinical Impression Primary Impression: Chest pain Disposition Decision Admit Admit Physician Name Nichole Orozco MD Admit Physician Hospitalist Request Time 1129 Request Date 01/18/19 )( Admission Accepts Yes )( Accepted Time 1129 )( Accepted Date 01/18/19 Call Information will see patient Discharge/Care Plan Counseled Regarding Diagnosi s, Lab results, Imaging studies, Need for admission Quality Measures 12-Lead ECG for CP Performed documented Appropriate CT Use for PE 18 years or older, Mod -High pretest for PE, Pos or elevated D-dimer, CTPA ordered Supervising Physician Note Scribe Statement Teressa Hollingsworth, 01/18/19 07 09, scribing for and in the presence of []. Signed By: Teressa Hollingsworth, 01/18/19 0709 Provider Scribed Statement I personally performed the s ervices described in this documentation and reviewed the documentation that was dictated to the scrib e(s) in my presence, and it accurately records my words and actions. Carmelo Silverman, 01/20/19 Portions of this section were scribed by Teressa Hollingsworth on 01/18/19 at 1128 Electronically Signed by Dick Silverman MD on at 0812 [facility] #:[id number] END OF REPORT 2018-11-13 14:59:00-00:00 [id number] [place] [id number] PATIENT NAME: CARLEE AGUILAR ADMIT DATE: 10/28/18 ACCOUNT NO: [id number] ROOM NO: [id number] AGE: 48 REPORT TYPE: DISCHARGE SUMMARY SEX: F ADMITTING PHYSICIAN:Isis Estrada MD ATTENDING PHYSICIAN:Isis Estrada MD ADMISSION DATE: 10/25/2018 DISCHARGE DATE: 10/29/2018 REASON FOR ADMISSION: Chest pain. DISCHARGE DIAGNOSES: 1. Atypical chest pain secondary to gastritis an d esophagitis. 2. Acute coronary syndrome was ruled out by left heart catheterization that showed clean coronary arteries. 3. Obstructive sleep apnea, on CPAP. 4. Dysuria. UA was negative for urinary tract in fection. 5. High D-dimer. Venous Doppler was negative for deep venous thrombosis. V/Q scan was negative. 6. Obesity. 7. Hypothyroidism. CONSULTATIONS: 1. Cardiology. 2. GI. PROCEDURES: 1. As mentioned previously, left heart catheteri zation that showed no significant coronary artery disease. 2. Other procedures; Doppler of the lower extrem ities was negative for deep venous thrombosis in the right lower extremity. 3. Upper GI series that showed no evidence of ob struction, but possible stricture formation at the gastro-jejunum connec tion. 4. V/Q scan was negative or with low probability for pulmonary embolism. 5. Chest CT without contrast, no acute intrathor acic abnormality. 6. Previous gastric bypass and cholecystectomy. HOSPITAL COURSE: This is a 48-year-old female wi th history of gastric bypass surgery and past medical history of obstructive sleep apnea on CPAP, [id number] diabetes mellitus with hemoglobin A1c 5.5, hypertension, hypothyroidism, and IBS, presented with chest pa in with negative troponin x2. Outside Sales Representative Insurance was consulted a nd the patient underwent left heart catheterization with no significant blockage or stenosis in the coronary arteries. CT of the chest showed possible strictures in the gastro-j ejunum anastomosis and GI was consulted for EGD that showed esophagitis and ga stritis. No ulcers or active bleeding. The patient was treated sympto matically with PPI. Symptoms improved. She was discharged home. PHYSICAL EXAMINATION: PATIENT NAME: CARLEE AGUILAR 02 GENERAL: The patient was seen and examin ed at bedside on the day of discharge, she was alert and oriented. CARDIOVASCULAR: Normal heart sounds. RESPIRATORY: Clear vesicular breath sounds. DISCHARGE DESTINATION: Home, self-care. DISCHARGE MEDICATIONS: Aspirin, levothyroxine, m etformin, lisinopril, pantoprazole, and Benadryl. DISCHARGE INSTRUCTIONS: Follow up with primary c are physician in 1 week and with the fleet sales associate as instructed and with GI in 2 weeks. Dictated By: Isis Estrada MD WT: DS:NITZA/ROBERT/NOHEMI Conf#: [id number]/DID#: [id number] Authenticated by Isis Estrada MD On 11/16/19 11:04:15 AM at 1104 PATIENT NAME: CARLEE AGUILAR 2018-10-29 18:04:00-00:00 [facility] Cardiology Progress Note REPORT#:[id number] REPORT STATUS: Signed DATE:10/29/18 TIME: 1804 PATIENT: CARLEE AGUILAR UNIT #: [id number] ROOM/BED: 4497-2 : 69 AGE: 48 SEX: F ATTEND: Scott Estrada mmad, MD ADM AUTHOR: Dario Singh MD * ALL edits or amendments must be made on the el [employer]/computer document * Subjective Chief Complaint: Chest pain/ RUE knots Comments: pt is awaiting right upper ext US she reports she is feeling better but wi th some continued chest discomfort non cardiac Objective General VS/I O: 24 hour I O ending at 0700: 10/29 0700 10/28 1900 Intake Total 118 150.00 Output Total Balance 118 150.00 Intake, IV 150.00 Intake, Oral 118 Vital Signs: Date Time Temp Pulse Resp B/P B/P Pulse O2 O2 F low FiO2 Mean Ox Delivery Rate 10/29 1125 97.9 72 16 108/67 80.7 95 Room air 10/29 0923 98.4 51 16 139/81 100.2 99 10/29 0435 97.5 60 20 147/70 95.6 97 Nasal cannula 10/29 0250 56 18 145/80 101.7 10/29 0002 97.7 57 20 165/84 110.9 96 Room air 10/28 2125 67 18 148/68 94.9 10/28 1953 98.1 64 20 161/91 114.4 96 Room air Medications: Active Meds + DC'd Last 24 Hrs Sumatriptan Succinate 6 MG ONCE ONE SUBQ (DC) Pantoprazole 40 MG BID PO (DCD) Clonidine HCl 0.1 MG Q6H PRN PRN PO (DCD) Morphine Sulfate 2 MG Q4H PRN PRN IV (DCD) Morphine Sulfate 2 MG Q6H PRN PRN IV (DC) Zolpidem Tartrate 5 MG BEDTIME PRN PRN PO (DCD) Enoxaparin Sodium 40 MG Q12HR SUBQ (DCD) Estradiol 1 MG DAILY PO (DCD) Famotidine 20 MG Q12HR PO (DCD) Lisinopril 10 MG DAILY PO (DCD) Insulin Human Lispro 0 AC HS SUBQ (DCD) Levothyroxine Sodium 25 MCG DAILY@0630 PO (DCD) Dextrose/Water 25 ML ASDIR PRN IV (DCD) Dextrose/Water 50 ML ASDIR PRN IV (DCD) Glucagon 1 MG ASDIR PRN IM (DCD) Promethazine HCl 12.5 MG Q6H PRN PRN IM (DCD) Acetaminophen 650 MG Q4H PRN PRN PO (DCD) Ondansetron HCl 4 MG Q6H PRN PRN IV (DCD) Physical Exam General appearance: alert, awake, oriented, no a cute distress, pleasant, conversational, no respiratory distress Head/Eyes: atraumatic, clear cornea, EOMI ENT: moist mucosal membranes Neck: full range of motion, non-tender Cardiovascular: CV assessment: regular rate and rhythm, normal heart sounds Respiratory: clear to auscultation, no distress Abdomen: soft, normal bowel sounds Genitourinary: urine Upper extremity: UE assessment: normal temperature (right upper ext 2 1-2 cm knots) Lower extremity: LE assessment: normal capillary refill, normal temperature Musculoskeletal: full range of motion, normal in spection Neuro/INFORMATION MANAGEMENT SPECIALIST: alert, normal speech Psychiatry: normal affect, normal judgment/insig ht, normal mood Results Findings/Data: Laboratory Tests 10/29 10/29 10/29 10/28 1127 0854 0450 1953 Chemistry Sodium (134 - 147 mEq/L) 142 Potassium (3.4 - 5.0 mEq/L) 4.0 Chloride (100 - 108 mEq/L) 109 H Carbon Dioxide (21 - 33 mEq/L) 29 Anion Gap (0 - 20) 8 BUN (7 - 18 mg/dL) 10 Creatinine (0.6 - 1.3 mg/dL) 0.4 L Glomerular Filtr Rate (95 - 105) 169.6 H Glucose (70 - 110 mg/dL) 79 POC Glucose (70 - 110 MG/DL) 181 H 83 91 Calcium (8.0 - 10.5 mg/dL) 8.3 Magnesium (1.8 - 2.4 mg/dL) 2.00 Total Bilirubin (0.0 - 1.0 mg/dL) 0.30 AST (15 - 37 IUnit/L) 33 ALT (15 - 65 IUnit/L) 53 Total Alk Phosphatase (20 - 125 IUnit/L) 89 Total Protein (6.4 - 8.2 g/dL) 6.5 Albumin (3.4 - 5.0 g/dL) 3.00 L Laboratory Tests 10/29 0450 Hematology WBC (4.5 - 11.0 x10 3/uL) 4.75 RBC (3.54 - 5.02 x10 6/uL) 3.91 Hgb (11.0 - 15.0 g/dL) 11.0 Hct (33.0 - 45.0 %) 35.0 MCV (81.0 - 99.0 fL) 89.5 MCH (27.0 - 33.0 pg) 28.1 MCHC (33.0 - 37.0 g/dL) 31.4 L RDW (11.5 - 14.5 %) 13.2 Plt Count (150 - 400 x10 3/uL) 207 MPV (7.0 - 9.0 fL) 11.7 H Neut % (Auto) (56.0 - 77.0 %) 52.7 L Lymph % (Auto) (14.0 - 32.0 %) 36.4 H [place] % (Auto) (4.8 - 9.0 %) 6.9 Eos % (Auto) (0.3 - 3.7 %) 3.4 Baso % (Auto) (0.0 - 2.0 %) 0.4 Neut # (Auto) (2.0 - 7.6 x10 3/uL) 2.50 Lymph # (Auto) (1.0 - 3.8 x10 3/uL) 1.73 [place] # (Auto) (0.1 - 0.8 x10 3/uL) 0.33 Eos # (Auto) (0.0 - 0.2 x10 3/uL) 0.16 Baso # (Auto) (0.0 - 0.2 x10 3/uL) 0.02 Abs Immat Gran (auto) (0.00 - 0.03 x10 3/uL) 0. 01 Add Manual Diff NO Immature Gran % (0.0 - 2.0 %) 0.2 Nucleated RBC % (0 - 0 %) 0.0 Nucleated RBCs # (Man) (0.0 - 0.1 x10 3/uL) 0.0 0 Laboratory Tests 10/29 0450 Chemistry Magnesium (1.8 - 2.4 mg/dL) 2.00 Radiology data: Recent Impressions-Last 72 Hrs ULTRASOUND - DUP VEIN UNI/LTD 10/29 143 Report Impression - Status: SIGNED Entered: 10/29/2018 1525 IMPRESSION: 1. No deep [facility] SL: [id number] Impression By: [email or web address] Raquel Chanel M.D. Recent Impressions: ULTRASOUND - DUP VEIN UNI/LTD 10/29 143 Report Impression - Status: SIGNED Entered: 10/29/2018 1525 IMPRESSION: 1. No deep venous [facility]. SL: [id number] Impression By: [email or web address] Raquel Candie Chanel M.D. Results: labs reviewed, vital signs stable, curr ent med profile rev'd Diagnosis, Assessment Plan Problem List/A P: 1. Chest pain Free Text A P: 1. Chest pain She is reporti ng some continued non cardiac discomfort related to stricture repair. I have reviewed angiography. This patient does h ave a very rudimentary LAD which is barely the area beyond the mid LV level. There does appear to be more of her septal like branch. We expected i s RCA to be large but that is not true either. In any case LV function appears to be st able. I have reviewed echocardiogram and possibly one can say that ant erior wall is moving in okay. Recommendations: She is awaiting US of rue at time of evaluation. discussed fnding s of cardiac cath with pt Symptomatic treatment From a cardiac standpoint pa jeromy can be discharged home with the plan to follow up with us in [address] Campbell managing/ stricture Electronically Signed by Dario Singh MD on 10/31 at 1006 RPT #:[id number] END OF REPORT 2018-10-28 21:10:00-00:00 [facility] Cardiology Progress Note REPORT#:[id number] REPORT STATUS: Signed DATE:10/28/18 TIME: 2109 PATIENT: CARLEE AGUILAR UNIT #: [id number] ROOM/BED: [place] [address] : 69 AGE: 48 SEX: F ATTEND: Scott Estrada mmad, MD ADM AUTHOR: Dario Singh MD * ALL edits or amendments must be made on the [employer]/computer document * Subjective HPI: Continues to have some emotional outburst as wel l as some abdominal pain. Diagnosis, Assessment Plan Problem List/A P: 1. Chest pain Free Text A P: 1. Chest pain I have reviewed angiography. This patient does h ave a very rudimentary LAD which is barely the area beyond the mid LV level. There does appear to be more of her septal like branch. We expected i s RCA to be large but that is not true either. In any case LV function appears to be st able. I have reviewed echocardiogram and possibly one can say that ant erior wall is moving in okay. Recommendations: Symptomatic treatment From a cardiac standpoint william pinzon can be discharged home with the plan to follow up with us in 2 months. Patient is undergoing GI workup and endoscopy by Dr. Campbell Electronically Signed by Dario Singh MD on 10/28 at 2112 RPT #:[id number] END OF REPORT 2018-10-28 12:50:00-00:00 [facility] Hospitalist Progress Note REPORT#:[id number] REPORT STATUS: Signed DATE:10/28/18 TIME: 1250 PATIENT: CARLEE AGUILAR UNIT #: [id number] ROOM/BED: [place] [address] : 69 AGE: 48 SEX: F ATTEND: Scooby Ross MD ADM AUTHOR: Isis Estrada MD * ALL edits or amendments must be made on the [employer]/computer document * Subjective Chief Complaint: pt states dysuria, frequency urine and pain. Objective General VS/I O: Vital Signs: Date Time Temp Pulse Resp B/P B/P Pulse O2 O2 Flow FiO2 Mean Ox Delivery Rate 10/28 1132 36.8 83 16 100/66 77.0 96 Room air 10/28 1036 36.5 58 14 106/62 76.9 96 10/28 0935 36.2 60 14 122/70 96 Room air 10/28 0920 57 18 143/77 97 Room air 10/28 0908 Room air 10/28 0905 58 16 122/70 95 Room air 10/28 0904 Nasal 2.449756 cannula 10/28 0900 59 21 124/67 97 Nasal 4.534705 cannula 10/28 0855 61 18 136/63 94 Nasal 4.759572 cannula 10/28 0850 55 16 127/65 98 Nasal 4.708523 cannula 10/28 0845 62 17 127/67 98 Nasal 4.561979 cannula 10/28 0840 36.2 63 16 127/67 96 Nasal 4.555650 cannula 10/28 0830 67 18 167/84 100 Room air 10/28 0516 36.5 49 18 142/75 97.7 99 02/19 2328 36.7 61 18 120/64 82.9 96 10/27 194 36.4 77 18 134/78 96.5 94 24 hour I O ending at 0700: 10/28 0700 10/27 1900 Intake Total Output Total Balance Number Voids 3 Medications: Active Meds + DC'd Last 24 Hrs Pantoprazole 40 MG BID PO (UNVr) Morphine Sulfate 2 MG Q6H PRN PRN IV (UNVr) Fentanyl Citrate 100 MCG PACU Q10MIN PRN PRN IV (DC) Fentanyl Citrate 50 MCG PACU Q10MIN PRN PRN IV ( DC) Hydralazine HCl 2 MG PACU Q10MIN PRN PRN IV (DC) Hydralazine HCl 2 MG PACU Q10MIN PRN PRN IV Hydromorphone HCl 1 MG PACU Q10MIN PRN PRN IV (D C) Hydromorphone HCl 0.5 MG PACU Q5MIN PRN PRN IV ( DC) Insulin Human Lispro 0 PACU ONCE PRN SUBQ (DC) Lactated Ringer's 1,000 ML .Q24H IV (DC) Meperidine HCl 12.5 MG PACU ONCE PRN IV (DC) Metoprolol Tartrate 0.5 MG PACU Q10MIN PRN PRN I V (DC) Metoprolol Tartrate 0.5 MG PACU Q10MIN PRN PRN I V Morphine Sulfate 2 MG PACU Q10MIN PRN PRN IV (DC ) Ondansetron HCl 4 MG PACU ONCE PRN IV (DC) Promethazine HCl 25 MG PACU ONCE PRN IM (DC) Ropivacaine 150 MG ASDIR PRN LOCAL (DC) Lidocaine HCl 0 .STK-MED ONE .ROUTE (DC) Propofol 20 ML .STK-MED ONE IV (DC) Famotidine 0 .STK-MED ONE IV (DC) Hydrocortisone Sodium Succinate 0 .STK-MED ONE . ROUTE (DC) Diphenhydramine HCl 0 .STK-MED ONE .ROUTE (DC) Heparin Sodium/Sodium Chloride 500 ML .STK-MED O NE IV (DC) Iopamidol 200 ML .STK-MED ONE IV (DC) Heparin Sodium 0 .STK-MED ONE IV (DC) Nitroglycerin/Dextrose 250 ML .STK-MED ONE IV (D C) Fentanyl Citrate 0 .STK-MED ONE .ROUTE (DC) Midazolam HCl 0 .STK-MED ONE .ROUTE (DC) Verapamil HCl 0 .STK-MED ONE IV (DC) Heparin Sodium/Sodium Chloride 1,500 ML .STK-MED ONE IV (DC) Lidocaine HCl 0 .STK-MED ONE .ROUTE (DC) Morphine Sulfate 2 MG Q4H PRN PRN IV (DCr) Zolpidem Tartrate 5 MG BEDTIME PRN PRN PO Enoxaparin Sodium 40 MG Q12HR SUBQ Estradiol 1 MG DAILY PO Famotidine 20 MG Q12HR PO Lisinopril 10 MG DAILY PO Pantoprazole 40 MG DAILY PO (DCr) Insulin Human Lispro 0 AC HS SUBQ Levothyroxine Sodium 25 MCG DAILY@0630 PO Dextrose/Water 25 ML ASDIR PRN IV Dextrose/Water 50 ML ASDIR PRN IV Glucagon 1 MG ASDIR PRN IM Promethazine HCl 12.5 MG Q6H PRN PRN IM Promethazine HCl 12.5 MG Q4H PRN PRN PO (DCr) Acetaminophen 650 MG Q4H PRN PRN PO Ondansetron HCl 4 MG Q6H PRN PRN IV Physical Exam General appearance: alert, awake Neck: no JVD Cardiovascular: normal heart sounds, regular rat e rhythm, no murmur Respiratory: aerating well, clear to auscultatio n Abdomen: non-tender, normal bowel sounds, soft Extremities: no edema Neuro/INFORMATION MANAGEMENT SPECIALIST: alert, oriented X 3, normal speech Results Findings/Data: Laboratory Tests 10/28 10/28 10/27 0900 0545 1947 Chemistry Sodium (134 - 147 mEq/L) 142 Potassium (3.4 - 5.0 mEq/L) 3.6 Chloride (100 - 108 mEq/L) 107 Carbon Dioxide (21 - 33 mEq/L) 29 Anion Gap (0 - 20) 10 BUN (7 - 18 mg/dL) 8 Creatinine (0.6 - 1.3 mg/dL) 0.4 L Glomerular Filtr Rate (95 - 105) 169.6 H Glucose (70 - 110 mg/dL) 83 POC Glucose (70 - 110 MG/DL) 85 243 H Calcium (8.0 - 10.5 mg/dL) 8.9 Magnesium (1.8 - 2.4 mg/dL) 2.10 Laboratory Tests 10/28 0545 Hematology WBC (4.5 - 11.0 x10 3/uL) 6.49 RBC (3.54 - 5.02 x10 6/uL) 4.31 Hgb (11.0 - 15.0 g/dL) 12.2 Hct (33.0 - 45.0 %) 37.4 MCV (81.0 - 99.0 fL) 86.8 MCH (27.0 - 33.0 pg) 28.3 MCHC (33.0 - 37.0 g/dL) 32.6 L RDW (11.5 - 14.5 %) 13.0 Plt Count (150 - 400 x10 3/uL) 217 MPV (7.0 - 9.0 fL) 12.1 H Neut % (Auto) (56.0 - 77.0 %) 65.4 Lymph % (Auto) (14.0 - 32.0 %) 26.7 [place] % (Auto) (4.8 - 9.0 %) 6.3 Eos % (Auto) (0.3 - 3.7 %) 0.9 Baso % (Auto) (0.0 - 2.0 %) 0.5 Neut # (Auto) (2.0 - 7.6 x10 3/uL) 4.25 Lymph # (Auto) (1.0 - 3.8 x10 3/uL) 1.73 [place] # (Auto) (0.1 - 0.8 x10 3/uL) 0.41 Eos # (Auto) (0.0 - 0.2 x10 3/uL) 0.06 Baso # (Auto) (0.0 - 0.2 x10 3/uL) 0.03 Abs Immat Gran (auto) (0.00 - 0.03 x10 3/uL) 0. 01 Add Manual Diff NO Immature Gran % (0.0 - 2.0 %) 0.2 Nucleated RBC % (0 - 0 %) 0.0 Nucleated RBCs # (Man) (0.0 - 0.1 x10 3/uL) 0.0 0 Laboratory Tests 10/28 1045 Urines Urine Color (YEL/STRAW) STRAW Urine Appearance (CLEAR) CLEAR Urine pH (5.0 - 7.0) 8.0 H Ur Specific [place] (1.005 - 1.030) 1.003 L Urine Protein (NEGATIVE) NEGATIVE Urine Glucose (UA) (NEGATIVE) NEGATIVE Urine Ketones (NEGATIVE) NEGATIVE Urine Blood (NEGATIVE) NEGATIVE Urine Nitrite (NEGATIVE) NEGATIVE Urine Bilirubin (NEGATIVE) NEGATIVE Urine Urobilinogen (0.2 - 1.0 mg/dL) 2.0 H Ur Leukocyte Esterase (NEGATIVE) NEGATIVE Urine RBC (0 - 3 RBC/HPF) 0-3 Urine WBC (0 - 3 WBC/HPF) 0-3 Ur Squamous Epith Cells (NONE SEEN /HPF) 0-5 Urine Bacteria (NONE SEEN /HPF) 3+ H Urine Culture Screen (Culture Chk Criteria) NO, WBC<10 Diagnosis, Assessment Plan Free Text A P: ATYPICAL CP - MULTIPLE RISKS, CARD SEEN, ECHO EF 50%, - LHC WITHOUT CAD. - MEDICAL MANAGEMENT. HIGH D-DIMER - CT CHEST WITHOUT CONTRAST NEGATIVE, VENOUD DOPPLER NEGATIVE, VQ NEGATIVE, PULM SEEN, O/P PSG - PT TAKES PILLS! R/O SEPSIS. DYSURIA - F/U UA/UC. PIERRE - ON CPAP AT HOME OBESITY, S/P GASTRIC BYPASS WITH 100 LB WT LOSS - STABLE, CARD FEELS SHE'S DEHYDRATED AND CAUSING SYNCOPE, GIVE IVF X2L, CO RRECT LOW K+, NOW 4.0 HYPOTHYROIDISM - TSH 2.3, ON SYNTHROID 0.025 MG GASTROPERESIS, CT SHOWED STRICTURE GASTROJEJUNOS GERARDO - EGD ON 10/28 W GASTRITIS/ESOPHAGITIS. - PPI BID. - LOW RESIDE DIET. DM - GOOD, HGB A1C 5.5% DVT PX - ON FULL DOSE LOVENOX at 1255 RPT #:[id number] END OF REPORT 2018-10-28 12:31:00-00:00 [facility]) Pulmonology Progress Note REPORT#:[id number] REPORT STATUS: Signed DATE:10/28/18 TIME: 1231 PATIENT: CARLEE AGUILAR UNIT #: [id number] ROOM/BED: [place] [address] : 69 AGE: 48 SEX: F ATTEND: Scooby Ross MD ADM AUTHOR: Aurora Mae MD * ALL edits or amendments must be made on the el [employer]/computer document * Review of Systems ROS Constitutional: Denies: fever, generalized weakness, malaise. Respiratory: Reports: SOB. Denies: parox nocturnal dyspnea, p neumonia, wheezing. Cardiovascular: Denies: edema. Musculoskeletal: Denies: extremity swelling, lumbar pain, neck pa in. Heme: Denies: adenopathy, bleeding, bruising, petechia e, other. Objective Physical Exam VS/I O: Last Documented: Result Date Time Pulse Ox 96 10/28 1132 B/P 100/66 10/28 1132 B/P Mean 77.0 10/28 1132 O2 Delivery Room air 10/28 1132 Temp 98.2 10/28 1132 Pulse 83 10/28 1132 Resp 16 10/28 1132 O2 Flow Rate 2.572833 10/28 0904 24 hour I O ending at 0700: 10/28 0700 10/27 1900 Intake Total Output Total Balance Number Voids 3 Medications: Active Meds + DC'd Last 24 Hrs Fentanyl Citrate 100 MCG PACU Q10MIN PRN PRN IV (DC) Fentanyl Citrate 50 MCG PACU Q10MIN PRN PRN IV ( DC) Hydralazine HCl 2 MG PACU Q10MIN PRN PRN IV (DC) Hydralazine HCl 2 MG PACU Q10MIN PRN PRN IV Hydromorphone HCl 1 MG PACU Q10MIN PRN PRN IV (D C) Hydromorphone HCl 0.5 MG PACU Q5MIN PRN PRN IV ( DC) Insulin Human Lispro 0 PACU ONCE PRN SUBQ (DC) Lactated Ringer's 1,000 ML .Q24H IV (DC) Meperidine HCl 12.5 MG PACU ONCE PRN IV (DC) Metoprolol Tartrate 0.5 MG PACU Q10MIN PRN PRN I V (DC) Metoprolol Tartrate 0.5 MG PACU Q10MIN PRN PRN I V Morphine Sulfate 2 MG PACU Q10MIN PRN PRN IV (DC ) Ondansetron HCl 4 MG PACU ONCE PRN IV (DC) Promethazine HCl 25 MG PACU ONCE PRN IM (DC) Ropivacaine 150 MG ASDIR PRN LOCAL (DC) Lidocaine HCl 0 .STK-MED ONE .ROUTE (DC) Propofol 20 ML .STK-MED ONE IV (DC) Famotidine 0 .STK-MED ONE IV (DC) Hydrocortisone Sodium Succinate 0 .STK-MED ONE . ROUTE (DC) Diphenhydramine HCl 0 .STK-MED ONE .ROUTE (DC) Heparin Sodium/Sodium Chloride 500 ML .STK-MED O NE IV (DC) Iopamidol 200 ML .STK-MED ONE IV (DC) Heparin Sodium 0 .STK-MED ONE IV (DC) Nitroglycerin/Dextrose 250 ML .STK-MED ONE IV (D C) Fentanyl Citrate 0 .STK-MED ONE .ROUTE (DC) Midazolam HCl 0 .STK-MED ONE .ROUTE (DC) Verapamil HCl 0 .STK-MED ONE IV (DC) Heparin Sodium/Sodium Chloride 1,500 ML .STK-MED ONE IV (DC) Lidocaine HCl 0 .STK-MED ONE .ROUTE (DC) Morphine Sulfate 2 MG Q4H PRN PRN IV Zolpidem Tartrate 5 MG BEDTIME PRN PRN PO Enoxaparin Sodium 40 MG Q12HR SUBQ Estradiol 1 MG DAILY PO Famotidine 20 MG Q12HR PO Lisinopril 10 MG DAILY PO Pantoprazole 40 MG DAILY PO Insulin Human Lispro 0 AC HS SUBQ Levothyroxine Sodium 25 MCG DAILY@0630 PO Dextrose/Water 25 ML ASDIR PRN IV Dextrose/Water 50 ML ASDIR PRN IV Glucagon 1 MG ASDIR PRN IM Promethazine HCl 12.5 MG Q6H PRN PRN IM Promethazine HCl 12.5 MG Q4H PRN PRN PO Acetaminophen 650 MG Q4H PRN PRN PO Ondansetron HCl 4 MG Q6H PRN PRN IV General appearance: alert, awake, oriented Head/eyes: atraumatic, normocephalic, PERRL, PER RLA Neck: full range of motion, non-tender, normal t hyroid Cardiovascular: normal heart sounds, normal S1/S 2, regular rate rhythm Respiratory/chest: aerating well, clear to auscu ltation, symmetric expansion Abdomen: soft, non-tender, normal bowel sounds Extremities: moves all, normal capillary refill, normal temperature, no calf tenderness, no clubbing Diagnosis, Assessment Plan Free Text A P: Problems and plans Chest pain Fatigue Shortness of breath Chronic anemia possibly malabsorption Hypokalemia Sleep apnea Status post gastric bypass surgery with 100 poun ds weight loss. All lab and imaging reviewed. Chest CT with no contrast was done due to patien t's contrast allergy no acute pathology. VQ low probability. DC therapeutic Lovenox. Continue with DVT prophy laxis dose. Echocardiogram is pending. Cardiology evaluation is progress. If cardiac workup is negative can consider low-d ose prednisone for pleurisy Replace potassium. Recommend repeat sleep study as an outpatient gi jyoti that she lost 100 pounds since her last study was done. Thank you for the consultati on and opportunity to participate in this patient's care 10/28: CT chest is clear, no pulm explanation for her c hest pian no CAD per cardiac cath. adviced for PSG study as outpt. keep CPAP for now. NL EGD. discharge planning. Electronically Signed by Aurora Mae MD on 10/10 at [facility] #:[id number] END OF REPORT 2018-10-28 11:26:00-00:00 [id number] [place] [address] PATIENT NAME: CARLEE AGUILAR ADMIT DATE: 10/28/18 ACCOUNT NO: [id number] ROOM NO: G.4411 AGE: 48 REPORT TYPE: OPERATIVE REPORT SEX: F ADMITTING PHYSICIAN:Isis Estrada MD ATTENDING PHYSICIAN:Isis Estrada MD OPERATION DATE: 10/28/2018 PREOPERATIVE DIAGNOSES: Nausea, vomiting, and dy sphagia. POSTOPERATIVE DIAGNOSES: Normal Heather-en-Y gastri c bypass anatomy and esophagitis. PROCEDURE: Esophagogastroduodenoscopy. SURGEON: Keaton Campbell MD INSURANCE SALES EXECUTIVE: None ANESTHESIA: MAC. INTRAVENOUS FLUIDS: Crystalloid. BLOOD LOSS: Less than 30 mL. URINE OUTPUT: Not measured. BRIEF HISTORY: This is a ashu y pleasant lady, who presented to the hospital with epigastric and chest pain. She also had dysphagia, nausea, and vomiting. There is question that she have anastomosis st ricture. I recommended an upper GI and EGD. Risks and benefits of procedure were discus sed. Informed consent was obtained. The patient was preoped for the proced ure. PROCEDURE IN DETAIL: The patient was transferred to the room and laid in the supine position. The patient was sedated . I inserted the scope and advanced to the esophagus. The GE junction had some mild eso phagitis and her pouch is appropriate size. I then looked at the gastrojej unostomy anastomosis, which was widely patent. In fact, it was larger than n ormal. I did not see any marginal ulcer. At this junction, I then took pi cture and desufflated the area. The patient tolerated the procedure well a nd was transferred to recovery room for further care. Dictated By: Keaton Campbell MD WT: OP:NITZA/LUDIVINA/NOHEMI Conf#: [id number]/DID#: [id number] PATIENT NAME: CARLEE AGUILAR 02 Authenticated and Edited by Keaton Campbell MD On 10/10 5:31:50 PM Electronically Signed by Keaton Campbell MD on at 1742 PATIENT NAME: CARLEE AGUILAR 02 2018-10-27 21:30:00-00:00 [facility]#:[id number] REPORT STATUS: Signed DATE:10/27/18 TIME: 2129 PATIENT: CARLEE AGUILAR UNIT #: [id number] ROOM/BED: [place] [id number] : 69 AGE: 48 SEX: F ATTEND: Scooby Ross MD ADM AUTHOR: Isis Estrada MD * ALL edits or amendments must be made on the el [employer]/computer document * Clinical Note Note: Came twice to see pt but she was in rn labor and delivery. vitals, labs and imaging studies were reviewed. ATYPICAL CP - MULTIPLE RISKS, CARD SEEN, ECHO EF 50%, CATH SCHEDULED AT [facility], BUT MAY HAVE TO RESCHEDULED, PER CARD, NOT RECOMMENDED, D/C HOME IF OK WITH CARD , F/U O/P, CONSIDER STRESS IF RECURRENCE HIGH D-DIMER - CT CHEST WITHOUT CONTRAST NEGATIVE, VENOUD DOPPLER NEGATIVE, VQ NEGATIVE, PULM SEEN, O/P PSG PIERRE - ON CPAP AT HOME OBESITY, S/P GASTRIC BYPASS WITH 100 LB WT LOSS - STABLE, CARD FEELS SHE'S DEHYDRATED AND CAUSING SYNCOPE, GIVE IVF X2L, CO RRECT LOW K+, NOW 4.0 HYPOTHYROIDISM - TSH 2.3, ON SYNTHROID 0.025 MG DM - GOOD, HGB A1C 5.5% DVT PX - ON FULL DOSE LOVENOX at 2131 RPT #:[id number] END OF REPORT 2018-10-27 16:42:00-00:00 [id number] [place] [address] PATIENT NAME: CARLEE AGUILAR ADMIT DATE: 10/28/18 ACCOUNT NO: [id number] ROOM NO: G.4497 AGE: 48 REPORT TYPE: CARDIAC CATHETERIZATION REPORT SEX : F ADMITTING PHYSICIAN:Isis Estrada MD ATTENDING PHYSICIAN:Isis Estrada MD PROCEDURE DATE: 10/27/2018 BRAZE OPERATOR: Corry Hilario MD PROCEDURES PERFORMED: 1. Left heart catheterization. 2. Selective coronary angiography. INDICATION: Ms. Carele Aguilar is a 48-year-old [place] ucasian female, who has significant history of diabe giovanni, hypertension, and history of smoking, presented with chest and upper abdominal pain. Given her ultiple risk factors, she is now brought to the cardiac catheterization lab f or further evaluation. TECHNIQUE: Informed consent was obtained from th e patient after explaining benefits and risks of the procedure. The patient was given IV Solu-Cortef, IV Benadryl, and Pepcid for contrast allerg y prophylaxis. The patient was prepped and draped in the usual sterile fashion. Time-ou t was obtained to verify the patient as well as type and site of the procedur e. The patient was given fentanyl and Versed for sedation. Approximately 1 mL of 1% Xylocaine was used to anesthetize the area over the right r adial artery. Using modified Seldinger technique, right radial kathy ry was accessed and a 6-British slender Terumo sheath was inserted. Following, radial cocktail contain ing 2.5 mg verapamil, 200 mcg nitroglycerin, and 3000 unit s of heparin was given intra-arterially. Following, selective coronary angiography and left heart ca theterization were performed using a 5-British [place] catheter. Following careful review of angiographic findings, equipments were removed and hemostasis was achieved with TR Band. LEFT HEART CATHETERIZATION WITHOUT VENTRICULOGRA M: The aortic pressure was 164/91 mmHg with mean pressu re of 123 mmHg. The LV pressure was 159/2 mmHg with end-diastolic pressure 13 mmHg. There was no gra dient noted across the aortic valve upon pullback of the catheter. LV gram was not performed. SELECTIVE CORONARY ANGIOGRAPHY: 1. Left main coronary artery is a large caliber vessel and bifurcates into left anterior descending artery and left circ umflex artery. No angiographic disease noted in left main coronary artery. 2. Left anterior descending artery has an unusua l course. I gives rise to a very good caliber septal aeronautical engineering professor. It then run s the course as a diagonal artery, which is a very good size vessel and giv es rise to medium caliber inferior and small caliber u pper branch. The LAD is a short vessel and does not reach the apex. PATIENT NAME: CARLEE AGUILAR 02 3. Left circumflex is a large caliber codominant vessel. It give rise to medium caliber OM1 and then runs into AV groove branch as a medium caliber PDA. 4. RCA is a codominant vessel. It gives rise to obtuse marginal branch and gives rise to small caliber PDA. No angiographic disease noted in the RCA. CONCLUSION: 1. Patent left main coronary artery without alfredo ographic disease. 2. Patent LAD with no angiographic disease. 3. Patent codominant left circumflex artery with out angiographic disease. 4. Patent codominant RCA without angiographic di sease. 5. LVEDP 13 mmHg. RECOMMENDATIONS: Based on these angiographic fin dings, the patient's symptom cannot be explained by obstructive coronary kathy ry disease. Continue to optimize her atherosclerotic vascular risk facto rs. Dictated By: Corry Hilario MD WT: CATH:JOHANNY/ROBERT/NOHEMI Conf#: [id number]/DID#: [id number] Authenticated by Corry Hilario MD On 12/07 07:29:33 PM Electronically Signed by Corry Hilario MD o n 12/20/18 at 1929 PATIENT NAME: CARLEE AGUILAR 2018-10-27 10:54:00-00:00 [facility]) Pulmonology Progress Note REPORT#:[id number] REPORT STATUS: Signed DATE:10/27/18 TIME: 1054 PATIENT: CARLEE AGUILAR UNIT #: [id number] ROOM/BED: [place] [address] : 69 AGE: 48 SEX: F ATTEND: Scooby oRss MD ADM AUTHOR: Aurora Mae MD * ALL edits or amendments must be made on the [employer]/computer document * Review of Systems ROS Constitutional: Denies: fever, generalized weakness, malaise. Respiratory: Reports: SOB. Denies: parox nocturnal dyspnea, p neumonia, wheezing. Cardiovascular: Denies: edema. Musculoskeletal: Denies: extremity swelling, lumbar pain, neck pa in. Heme: Denies: adenopathy, bleeding, bruising, petechia e, other. Objective Physical Exam VS/I O: Last Documented: Result Date Time O2 Delivery CPAP 10/27 1044 Pulse Ox 95 10/27 728 B/P 107/66 10/27 728 B/P Mean 79.6 10/27 728 Temp 98.1 10/27 728 Pulse 56 10/27 07 Resp 16 10/27 728 24 hour I O ending at 0700: 10/27 0700 10/26 1900 Intake Total Output Total Balance Number Voids 2 Medications: Active Meds + DC'd Last 24 Hrs Sumatriptan Succinate 50 MG ONCE ONE PO (DC) Sodium Chloride 1,000 ML NOW ONE IV (DC) Enoxaparin Sodium 40 MG Q12HR SUBQ Enoxaparin Sodium 40 MG Q24H SUBQ (DC) Zolpidem Tartrate 10 MG BEDTIME PO Estradiol 1 MG DAILY PO Famotidine 20 MG Q12HR PO Lisinopril 10 MG DAILY PO Pantoprazole 40 MG DAILY PO Insulin Human Lispro 0 AC HS SUBQ Levothyroxine Sodium 25 MCG DAILY@0630 PO Dextrose/Water 25 ML ASDIR PRN IV Dextrose/Water 50 ML ASDIR PRN IV Glucagon 1 MG ASDIR PRN IM Promethazine HCl 12.5 MG Q6H PRN PRN IM Promethazine HCl 12.5 MG Q4H PRN PRN PO Acetaminophen 650 MG Q4H PRN PRN PO Morphine Sulfate 4 MG Q4H PRN PRN IV Ondansetron HCl 4 MG Q6H PRN PRN IV General appearance: alert, awake, oriented Head/eyes: atraumatic, normocephalic, PERRL, PER RLA Neck: full range of motion, non-tender, normal t hyroid Cardiovascular: normal heart sounds, normal S1/S 2, regular rate rhythm Respiratory/chest: aerating well, clear to auscu ltation, symmetric expansion Abdomen: soft, non-tender, normal bowel sounds Extremities: moves all, normal capillary refill, normal temperature, no calf tenderness, no clubbing Diagnosis, Assessment Plan Free Text A P: Problems and plans Chest pain Fatigue Shortness of breath Chronic anemia possibly malabsorption Hypokalemia Sleep apnea Status post gastric bypass surgery with 100 poun ds weight loss. All lab and imaging reviewed. Chest CT with no contrast was done due to patien t's contrast allergy no acute pathology. VQ low probability. DC therapeutic Lovenox. Continue with DVT prophy laxis dose. Echocardiogram is pending. Cardiology evaluation is progress. If cardiac workup is negative can consider low-d ose prednisone for pleurisy Replace potassium. Recommend repeat sleep study as an outpatient gi jyoti that she lost 100 pounds since her last study was done. Thank you for the consultati on and opportunity to participate in this patient's care 10/27: CT chest is clear, no pulm explanation for her c hest pian high probability of CAD, I r ecommened cardiac work up including stress test and possible angiogram today. adviced for PSG study as outpt. keep CPAP for now. GI work up possible EGD. Electronically Signed by Aurora Mae MD on 10/09 05/27 at 1055 RPT #:[id number] END OF REPORT 2018-10-26 20:23:00-00:00 [facility] Cardiology Progress Note REPORT#:[id number] REPORT STATUS: Signed DATE:10/26/18 TIME: 2022 PATIENT: CARLEE AGUILAR UNIT #: [id number] ROOM/BED: [place] [address] : 69 AGE: 48 SEX: F ATTEND: Scooby Ross MD ADM AUTHOR: Dario Singh MD * ALL edits or amendments must be made on the [employer] document * Subjective HPI: Patient still quite emotiona l. Having fatigue and shortness of breath and chest pains. Diagnosis, Assessment Plan Problem List/A P: 1. Chest pain Free Text A P: 1. Chest pain Overall patient's symptoms are atypical but at t he same time she is having combination of symptoms which are diffic ult to evaluate with her body habitus. Very likely she could have GI etiology. It is th e echocardiogram which was little surprising with some segmental wall motion abnormality. This patient was evaluated at [facility] and infectious she was suppos ed to get a cardiac catheterization done before she ended up here. T his point It does make sense for us to proceed with cardi ac catheterization and to find out for sure if this patient has any obstructive CAD. Electronically Signed by Dario Singh MD on 10/26 at 2024 RPT #:[id number] END OF REPORT 2018-10-26 15:40:00-00:00 [facility] ([facility]) General Surgery Consultation REPORT#:[id number] REPORT STATUS: Signed DATE:10/26/18 TIME: 154 PATIENT: CARLEE AGUILAR UNIT #: [id number] ROOM/BED: [place] [address] : 69 AGE: 48 SEX: F ATTEND: Scooby Ross MD ADM AUTHOR: Lluvia Teague * ALL edits or amendments must be made on the [employer] document * History of Present Illness HPI Reason for consult: hx of gastric bypass HPI: 48 yr old female w/ hx of bradycardia came to ED for chest pain. Asked to evaluate due to pt hx of gas tric bypass November [address] Joe Carvalho. Pt reports she lost 101lbs. Pt reports since she has been i [facility] these past 2 to 3 days, she has not been able eat. Feels food stuc k in her throat, along with nausea and epigastric pain. Has hx of ch olecystectomy. No recent EGD according to patient. Pt reports a swallow study was never done after having gastric bypass. History - Adult longitudinal Past medical history: Reports: Diabetes mellitus, Hypertension, Headache disorder, Thyroid disorder ( Hypothyroid). Additional medical history: IBS, Sleep Apnea Past surgical history: Reports: Cholecystectomy, Hysterectomy. Alcohol use: Denies EtOH use Smoking status for patients 13 years old or olde r: Never Smoker Other social history: Local resident Allergies: Coded Allergies: iodine (Severe, ITCHING 10/21/17) Sulfa (Sulfonamide Antibiotics) (Intermediate, H LAURITA 11/16/16) ketorolac (From TORADOL) (Mild, RASH 11/16/16) latex (Mild, ITCHING FROM POWDER 11/16/16) Uncoded Allergies: IV CONTRAST (Severe, HIVES, ITCHING, TROUBLE GEORGI ATHING. 10/25/18) NSIADS (HAD GASTRIC BYPASS SURGERY 10/25/18) Review of Systems Additional notes: All 14 point of systems negative other than thos e stated in HPI. Objective Physical Exam VS/I O: Last Documented: Result Date Time Pulse Ox 100 10/26 1108 B/P 96/57 10/26 1108 B/P Mean 69.7 10/26 1108 Pulse 41 10/26 1108 O2 Delivery CPAP 10/26 1106 Temp 36.7 10/26 1106 Resp 18 10/26 1106 24 hour I O ending at 0700: 10/26 0700 10/25 1900 Intake Total 700.00 Output Total Balance 700.00 Intake, IV 700.00 General appearance: alert, awake, no acute distr ess Head/Eyes: normal conjunctiva/sclera Neck: full range of motion Abdomen: non-tender, no distention, no guarding, no rebound, soft Musculoskeletal: full range of motion Neuro/INFORMATION MANAGEMENT SPECIALIST: alert Skin: dry, intact Results Findings/Data: Laboratory Tests 10/26 10/26 10/26 10/26 10/25 1417 1107 0757 0500 2023 Chemistry Sodium (134 - 147 mEq/L) 140 Potassium (3.4 - 5.0 mEq/L) 4.0 Chloride (100 - 108 mEq/L) 110 H Carbon Dioxide (21 - 33 mEq/L) 26 Anion Gap (0 - 20) 8 BUN (7 - 18 mg/dL) 10 Creatinine (0.6 - 1.3 mg/dL) 0.7 0.5 L Glomerular Filtr Rate (95 - 105) 131.1 H Glucose (70 - 110 mg/dL) 81 POC Glucose (70 - 110 MG/DL) 87 82 97 Calcium (8.0 - 10.5 mg/dL) 8.7 10/25 1559 Chemistry POC Glucose (70 - 110 MG/DL) 94 Laboratory Tests 10/26 0500 Hematology WBC (4.5 - 11.0 x10 3/uL) 4.97 RBC (3.54 - 5.02 x10 6/uL) 4.33 Hgb (11.0 - 15.0 g/dL) 12.4 Hct (33.0 - 45.0 %) 39.1 MCV (81.0 - 99.0 fL) 90.3 MCH (27.0 - 33.0 pg) 28.6 MCHC (33.0 - 37.0 g/dL) 31.7 L RDW (11.5 - 14.5 %) 13.5 Plt Count (150 - 400 x10 3/uL) 190 MPV (7.0 - 9.0 fL) 11.2 H Neut % (Auto) (56.0 - 77.0 %) 47.9 L Lymph % (Auto) (14.0 - 32.0 %) 42.1 H [place] % (Auto) (4.8 - 9.0 %) 6.2 Eos % (Auto) (0.3 - 3.7 %) 3.0 Baso % (Auto) (0.0 - 2.0 %) 0.6 Neut # (Auto) (2.0 - 7.6 x10 3/uL) 2.38 Lymph # (Auto) (1.0 - 3.8 x10 3/uL) 2.09 [place] # (Auto) (0.1 - 0.8 x10 3/uL) 0.31 Eos # (Auto) (0.0 - 0.2 x10 3/uL) 0.15 Baso # (Auto) (0.0 - 0.2 x10 3/uL) 0.03 Abs Immat Gran (auto) (0.00 - 0.03 x10 3/uL) 0. 01 Add Manual Diff NO Immature Gran % (0.0 - 2.0 %) 0.2 Nucleated RBC % (0 - 0 %) 0.0 Nucleated RBCs # (Man) (0.0 - 0.1 x10 3/uL) 0.0 0 Radiology Data: Recent Impressions: RADIOLOGY - XR CHEST 1 V 10/24 2355 Report Impression - Status: SIGNED Entered: 10/25/2018 0022 IMPRESSION: No acute cardiopulmonary disease see n. SL: [JSYED-H] Impression By: [id number] Raquel Marquez M.D. ULTRASOUND - DUP VEIN RASHID 10/25 0822 Report Impression - Status: SIGNED Entered: 10/25/2018 0843 IMPRESSION: 1. No deep venous thrombosis. 2. Complex right Gaspar's cyst. SL:01 Impression By: Deanna Hoskins CAT SCAN - CT CHEST W/O CONTRAST 10/25 0830 Report Impression - Status: SIGNED Entered: 10/25/2018 0907 IMPRESSION: 1. No acute intrathoracic abnormality demonstrat ed by noncontrast CT chest. 2. Previous gastric bypass and cholecystectomy. SL:01 Impression By: Deanna Hoskins NUCLEAR MEDICINE - PULM VENT PERF IMAG 10/25 143 0 Report Impression - Status: SIGNED Entered: 10/25/2018 1531 IMPRESSION: Low probability for pulmonary embolus. SL:01 Impression By: Deanna Hoskins Results: labs reviewed, vital signs stable Diagnosis, Assessment Plan Problem List/Pt HX: 1. Chest pain Assessment/Plan: 48 yr old female hx of gastric bypass 1. Epigastric pain/Nausea -UGI to be done today. Due to pt's acute onset of symptoms, most likely due to diet vs stricture, however will await UGI report . - If normal, recommend pt to follow up with her surgeon for EGD. 2. Chest pain -pt to have angiogram tomorrow -continue with current care Plan discussed with: patient, significant other, Dr. Campbell Electronically Signed by Lluvia Teague on at 1601 RPT #:[id number] END OF REPORT 2018-10-26 15:40:00-00:00 [facility] ([facility] General Surgery Consultation REPORT#:[id number] REPORT STATUS: Signed DATE:10/26/18 TIME: 1540 PATIENT: CARLEE AGUILAR UNIT #: [id number] ROOM/BED: [place] [address] : 69 AGE: 48 SEX: F ATTEND: Scott Estrada mmad, MD ADM AUTHOR: Lluvia Teague * ALL edits or amendments must be made on the [employer]/computer document * Lluvia Teague 10/26/18 1540: History of Present Illness HPI Reason for consult: hx of gastric bypass HPI: 48 yr old female w/ hx of bradycardia came to ED for chest pain. Asked to evaluate due to pt hx of gas tric bypass November [address] Joe Carvalho. Pt reports she lost 101lbs. Pt reports since she has been i [facility] these past 2 to 3 days, she has not been able eat. Feels food stuc k in her throat, along with nausea and epigastric pain. Has hx of ch olecystectomy. No recent EGD according to patient. Pt reports a swallow study was never done after having gastric bypass. History - Adult longitudinal Past medical history: Reports: Diabetes mellitus, Hypertension, Headache disorder, Thyroid disorder ( Hypothyroid). Additional medical history: IBS, Sleep Apnea Past surgical history: Reports: Cholecystectomy, Hysterectomy. Alcohol use: Denies EtOH use Smoking status for patients 13 years old or olde r: Never Smoker Other social history: Local resident Allergies: Coded Allergies: iodine (Severe, ITCHING 10/21/17) Sulfa (Sulfonamide Antibiotics) (Intermediate, H LAURITA 11/16/16) ketorolac (From TORADOL) (Mild, RASH 11/16/16) latex (Mild, ITCHING FROM POWDER 11/16/16) Uncoded Allergies: IV CONTRAST (Severe, HIVES, ITCHING, TROUBLE GEORGI ATHING. 10/25/18) NSIADS (HAD GASTRIC BYPASS SURGERY 10/25/18) Review of Systems Additional notes: All 14 point of systems negative other than thos e stated in HPI. Objective Physical Exam VS/I O: Last Documented: Result Date Time Pulse Ox 100 10/26 1108 B/P 96/57 10/26 1108 B/P Mean 69.7 10/26 1108 Pulse 41 10/26 1108 O2 Delivery CPAP 10/26 1105 Temp 36.7 10/26 1106 Resp 18 10/26 110 24 hour I O ending at 0700: 10/26 0700 10/25 1900 Intake Total 700.00 Output Total Balance 700.00 Intake, IV 700.00 General appearance: alert, awake, no acute distr ess Head/Eyes: normal conjunctiva/sclera Neck: full range of motion Abdomen: non-tender, no distention, no guarding, no rebound, soft Musculoskeletal: full range of motion Neuro/INFORMATION MANAGEMENT SPECIALIST: alert Skin: dry, intact Results Findings/Data: Laboratory Tests 10/26 10/26 10/26 10/26 10/25 1417 1107 0757 0500 2022 Chemistry Sodium (134 - 147 mEq/L) 140 Potassium (3.4 - 5.0 mEq/L) 4.0 Chloride (100 - 108 mEq/L) 110 H Carbon Dioxide (21 - 33 mEq/L) 26 Anion Gap (0 - 20) 8 BUN (7 - 18 mg/dL) 10 Creatinine (0.6 - 1.3 mg/dL) 0.7 0.5 L Glomerular Filtr Rate (95 - 105) 131.1 H Glucose (70 - 110 mg/dL) 81 POC Glucose (70 - 110 MG/DL) 87 82 97 Calcium (8.0 - 10.5 mg/dL) 8.7 10/25 1559 Chemistry POC Glucose (70 - 110 MG/DL) 94 Laboratory Tests 10/26 0500 Hematology WBC (4.5 - 11.0 x10 3/uL) 4.97 RBC (3.54 - 5.02 x10 6/uL) 4.33 Hgb (11.0 - 15.0 g/dL) 12.4 Hct (33.0 - 45.0 %) 39.1 MCV (81.0 - 99.0 fL) 90.3 MCH (27.0 - 33.0 pg) 28.6 MCHC (33.0 - 37.0 g/dL) 31.7 L RDW (11.5 - 14.5 %) 13.5 Plt Count (150 - 400 x10 3/uL) 190 MPV (7.0 - 9.0 fL) 11.2 H Neut % (Auto) (56.0 - 77.0 %) 47.9 L Lymph % (Auto) (14.0 - 32.0 %) 42.1 H [place] % (Auto) (4.8 - 9.0 %) 6.2 Eos % (Auto) (0.3 - 3.7 %) 3.0 Baso % (Auto) (0.0 - 2.0 %) 0.6 Neut # (Auto) (2.0 - 7.6 x10 3/uL) 2.38 Lymph # (Auto) (1.0 - 3.8 x10 3/uL) 2.09 [place] # (Auto) (0.1 - 0.8 x10 3/uL) 0.31 Eos # (Auto) (0.0 - 0.2 x10 3/uL) 0.15 Baso # (Auto) (0.0 - 0.2 x10 3/uL) 0.03 Abs Immat Gran (auto) (0.00 - 0.03 x10 3/uL) 0. 01 Add Manual Diff NO Immature Gran % (0.0 - 2.0 %) 0.2 Nucleated RBC % (0 - 0 %) 0.0 Nucleated RBCs # (Man) (0.0 - 0.1 x10 3/uL) 0.0 0 Radiology Data: Recent Impressions: RADIOLOGY - XR CHEST 1 V 10/24 6180 Report Impression - Status: SIGNED Entered: 10/25/2018 0022 IMPRESSION: No acute cardiopulmonary disease see n. MIHCAEL: [JSYED-H] Impression By: [email or web address] Raquel Marquez M.D. ULTRASOUND - DUP VEIN RASHID 10/25 0822 Report Impression - Status: SIGNED Entered: 10/25/2018 0843 IMPRESSION: 1. No deep venous thrombosis. 2. Complex right Gaspar's cyst. SL:01 Impression By: Deanna Hoskins CAT SCAN - CT CHEST W/O CONTRAST 10/25 0830 Report Impression - Status: SIGNED Entered: 10/25/2018 0907 IMPRESSION: 1. No acute intrathoracic abnormality demonstrat ed by noncontrast CT chest. 2. Previous gastric bypass and cholecystectomy. SL:01 Impression By: Deanna Hoskins NUCLEAR MEDICINE - PULM VENT PERF IMAG 10/25 143 0 Report Impression - Status: SIGNED Entered: 10/25/2018 1531 IMPRESSION: Low probability for pulmonary embolus. SL:01 Impression By: Deanna Hoskins Results: labs reviewed, vital signs stable Diagnosis, Assessment Plan Problem List/Pt HX: 1. Chest pain Assessment/Plan: 48 yr old female hx of gastric bypass 1. Epigastric pain/Nausea -UGI to be done today. Due to pt's acute onset of symptoms, most likely due to diet vs stricture, however will await UGI report . - If normal, recommend pt to follow up with her surgeon for EGD. 2. Chest pain -pt to have angiogram tomorrow -continue with current care Plan discussed with: patient, significant other, Keaton Streeter 11/05/18 1643: Attestations Midlevel/Physician Attestation Physician attestation: I have personally interviewed and examined the p atient. All charts, labs, and imaging studies were reviewed. I agree with the PA/REFLEXOLOGIST's findings, exam, and plan. Electronically Signed by Lluvia Teague on at 1601 RPT #:[id number] END OF REPORT 2018-10-26 15:40:00-00:00 [facility] ([facility] General Surgery Consultation REPORT#:[id number] REPORT STATUS: Signed DATE:10/26/18 TIME: 1540 PATIENT: CARLEE AGUILAR UNIT #: [id number] ROOM/BED: [place] [address] : 69 AGE: 48 SEX: F ATTEND: Scott Estrada mmad, MD ADM AUTHOR: Lluvia Teague * ALL edits or amendments must be made on the Advaction/computer document * Lluvia Teague 10/26/18 1540: History of Present Illness HPI Reason for consult: hx of gastric bypass HPI: 48 yr old female w/ hx of bradycardia came to ED for chest pain. Asked to evaluate due to pt hx of gas tric bypass November [address] Joe Carvalho. Pt reports she lost 101lbs. Pt reports since she has been i [facility] these past 2 to 3 days, she has not been able eat. Feels food stuc k in her throat, along with nausea and epigastric pain. Has hx of ch olecystectomy. No recent EGD according to patient. Pt reports a swallow study was never done after having gastric bypass. History - Adult longitudinal Past medical history: Reports: Diabetes mellitus, Hypertension, Headache disorder, Thyroid disorder ( Hypothyroid). Additional medical history: IBS, Sleep Apnea Past surgical history: Reports: Cholecystectomy, Hysterectomy. Alcohol use: Denies EtOH use Smoking status for patients 13 years old or olde r: Never Smoker Other social history: Local resident Allergies: Coded Allergies: iodine (Severe, ITCHING 10/21/17) Sulfa (Sulfonamide Antibiotics) (Intermediate, H LAURITA 11/16/16) ketorolac (From TORADOL) (Mild, RASH 11/16/16) latex (Mild, ITCHING FROM POWDER 11/16/16) Uncoded Allergies: IV CONTRAST (Severe, HIVES, ITCHING, TROUBLE GEORGI ATHING. 10/25/18) NSIADS (HAD GASTRIC BYPASS SURGERY 10/25/18) Review of Systems Additional notes: All 14 point of systems negative other than thos e stated in HPI. Objective Physical Exam VS/I O: Last Documented: Result Date Time Pulse Ox 100 10/26 1108 B/P 96/57 10/26 1108 B/P Mean 69.7 10/26 1108 Pulse 41 10/26 1108 O2 Delivery CPAP 10/26 1106 Temp 36.7 10/26 1106 Resp 18 10/26 1106 24 hour I O ending at 0700: 10/26 0700 10/25 1900 Intake Total 700.00 Output Total Balance 700.00 Intake, IV 700.00 General appearance: alert, awake, no acute distr ess Head/Eyes: normal conjunctiva/sclera Neck: full range of motion Abdomen: non-tender, no distention, no guarding, no rebound, soft Musculoskeletal: full range of motion Neuro/INFORMATION MANAGEMENT SPECIALIST: alert Skin: dry, intact Results Findings/Data: Laboratory Tests 10/26 10/26 10/26 10/26 10/25 1417 1107 0757 0500 2023 Chemistry Sodium (134 - 147 mEq/L) 140 Potassium (3.4 - 5.0 mEq/L) 4.0 Chloride (100 - 108 mEq/L) 110 H Carbon Dioxide (21 - 33 mEq/L) 26 Anion Gap (0 - 20) 8 BUN (7 - 18 mg/dL) 10 Creatinine (0.6 - 1.3 mg/dL) 0.7 0.5 L Glomerular Filtr Rate (95 - 105) 131.1 H Glucose (70 - 110 mg/dL) 81 POC Glucose (70 - 110 MG/DL) 87 82 97 Calcium (8.0 - 10.5 mg/dL) 8.7 10/25 1559 Chemistry POC Glucose (70 - 110 MG/DL) 94 Laboratory Tests 10/26 0500 Hematology WBC (4.5 - 11.0 x10 3/uL) 4.97 RBC (3.54 - 5.02 x10 6/uL) 4.33 Hgb (11.0 - 15.0 g/dL) 12.4 Hct (33.0 - 45.0 %) 39.1 MCV (81.0 - 99.0 fL) 90.3 MCH (27.0 - 33.0 pg) 28.6 MCHC (33.0 - 37.0 g/dL) 31.7 L RDW (11.5 - 14.5 %) 13.5 Plt Count (150 - 400 x10 3/uL) 190 MPV (7.0 - 9.0 fL) 11.2 H Neut % (Auto) (56.0 - 77.0 %) 47.9 L Lymph % (Auto) (14.0 - 32.0 %) 42.1 H [place] % (Auto) (4.8 - 9.0 %) 6.2 Eos % (Auto) (0.3 - 3.7 %) 3.0 Baso % (Auto) (0.0 - 2.0 %) 0.6 Neut # (Auto) (2.0 - 7.6 x10 3/uL) 2.38 Lymph # (Auto) (1.0 - 3.8 x10 3/uL) 2.09 [place] # (Auto) (0.1 - 0.8 x10 3/uL) 0.31 Eos # (Auto) (0.0 - 0.2 x10 3/uL) 0.15 Baso # (Auto) (0.0 - 0.2 x10 3/uL) 0.03 Abs Immat Gran (auto) (0.00 - 0.03 x10 3/uL) 0. 01 Add Manual Diff NO Immature Gran % (0.0 - 2.0 %) 0.2 Nucleated RBC % (0 - 0 %) 0.0 Nucleated RBCs # (Man) (0.0 - 0.1 x10 3/uL) 0.0 0 Radiology Data: Recent Impressions: RADIOLOGY - XR CHEST 1 V 10/24 5175 Report Impression - Status: SIGNED Entered: 10/25/2018 0022 IMPRESSION: No acute cardiopulmonary disease see n. SL: [JSYED-H] Impression By: [email or web address] Raquel Marquez M.D. ULTRASOUND - DUP VEIN RASHID 10/25 0822 Report Impression - Status: SIGNED Entered: 10/25/2018 0843 IMPRESSION: 1. No deep venous thrombosis. 2. Complex right Gaspar's cyst. SL:01 Impression By: Deanna Hoskins CAT SCAN - CT CHEST W/O CONTRAST 10/25 0830 Report Impression - Status: SIGNED Entered: 10/25/2018 0907 IMPRESSION: 1. No acute intrathoracic abnormality demonstrat ed by noncontrast CT chest. 2. Previous gastric bypass and cholecystectomy. SL:01 Impression By: Deanna Hoskins NUCLEAR MEDICINE - PULM VENT PERF IMAG 10/25 143 0 Report Impression - Status: SIGNED Entered: 10/25/2018 1531 IMPRESSION: Low probability for pulmonary embolus. SL:01 Impression By: Deanna Hoskins Results: labs reviewed, vital signs stable Diagnosis, Assessment Plan Problem List/Pt HX: 1. Chest pain Assessment/Plan: 48 yr old female hx of gastric bypass 1. Epigastric pain/Nausea -UGI to be done today. Due to pt's acute onset of symptoms, most likely due to diet vs stricture, however will await UGI report . - If normal, recommend pt to follow up with her surgeon for EGD. 2. Chest pain -pt to have angiogram tomorrow -continue with current care Plan discussed with: patient, significant other, Keaton Streeter 11/05/18 1643: Attestations Midlevel/Physician Attestation Physician attestation: I have personally interviewed and examined the p atient. All charts, labs, and imaging studies were reviewed. I agree with the PA/REFLEXOLOGIST's findings, exam, and plan. Electronically Signed by Lluvia Teague on at 1601 Electronically Signed by Keaton Campbell MD on 9 at 1645 RPT #:[id number] END OF REPORT 2018-10-26 12:01:00-00:00 [facility] Hospitalist Progress Note REPORT#:[id number] REPORT STATUS: Signed DATE:10/26/18 TIME: 1201 PATIENT: CARLEE AGUILAR UNIT #: [id number] ROOM/BED: [place] [id number] : 69 AGE: 48 SEX: F ATTEND: Scooby Ross MD ADM AUTHOR: Chris Ny MD * ALL edits or amendments must be made on the el [employer]/computer document * Subjective Chief Complaint: NO CP, AT BS, INFORMED OF NL VQ, ECHO/CT CHEST, PULM AND CARD OK TO GO HOME FROM NOTES YESTERDAY Objective General Medications: Active Meds + DC'd Last 24 Hrs Enoxaparin Sodium 40 MG Q24H SUBQ Sodium Chloride 1,000 ML NOW ONE IV (UNV) Zolpidem Tartrate 10 MG BEDTIME PO Enoxaparin Sodium 105 MG Q12H SUBQ (DC) Potassium Chloride/Sodium Chloride 1,000 ML .Q10 H IV (DC) Estradiol 1 MG DAILY PO Famotidine 20 MG Q12HR PO Lisinopril 10 MG DAILY PO Pantoprazole 40 MG DAILY PO Insulin Human Lispro 0 AC HS SUBQ Levothyroxine Sodium 25 MCG DAILY@0630 PO Dextrose/Water 25 ML ASDIR PRN IV Dextrose/Water 50 ML ASDIR PRN IV Glucagon 1 MG ASDIR PRN IM Promethazine HCl 12.5 MG Q6H PRN PRN IM Promethazine HCl 12.5 MG Q4H PRN PRN PO Acetaminophen 650 MG Q4H PRN PRN PO Morphine Sulfate 4 MG Q4H PRN PRN IV Ondansetron HCl 4 MG Q6H PRN PRN IV Sodium Chloride 0 ASDIR PRN IV (DC) Physical Exam General appearance: obese, alert, awake, oriente d Neck: no JVD Cardiovascular: normal heart sounds, regular rat e rhythm, no murmur Respiratory: aerating well, clear to auscultatio n Abdomen: non-tender, normal bowel sounds, soft Extremities: no edema Neuro/INFORMATION MANAGEMENT SPECIALIST: alert, oriented X 3, normal speech Results Findings/Data: Laboratory Tests 10/26 10/26 10/26 10/25 10/25 1107 0757 0500 2023 1559 Chemistry Sodium (134 - 147 mEq/L) 140 Potassium (3.4 - 5.0 mEq/L) 4.0 Chloride (100 - 108 mEq/L) 110 H Carbon Dioxide (21 - 33 mEq/L) 26 Anion Gap (0 - 20) 8 BUN (7 - 18 mg/dL) 10 Creatinine (0.6 - 1.3 mg/dL) 0.5 L Glomerular Filtr Rate (95 - 105) 131.1 H Glucose (70 - 110 mg/dL) 81 POC Glucose (70 - 110 MG/DL) 87 82 97 94 Calcium (8.0 - 10.5 mg/dL) 8.7 10/25 1236 Chemistry POC Glucose (70 - 110 MG/DL) 107 Laboratory Tests 10/26 0500 Hematology WBC (4.5 - 11.0 x10 3/uL) 4.97 RBC (3.54 - 5.02 x10 6/uL) 4.33 Hgb (11.0 - 15.0 g/dL) 12.4 Hct (33.0 - 45.0 %) 39.1 MCV (81.0 - 99.0 fL) 90.3 MCH (27.0 - 33.0 pg) 28.6 MCHC (33.0 - 37.0 g/dL) 31.7 L RDW (11.5 - 14.5 %) 13.5 Plt Count (150 - 400 x10 3/uL) 190 MPV (7.0 - 9.0 fL) 11.2 H Neut % (Auto) (56.0 - 77.0 %) 47.9 L Lymph % (Auto) (14.0 - 32.0 %) 42.1 H [place] % (Auto) (4.8 - 9.0 %) 6.2 Eos % (Auto) (0.3 - 3.7 %) 3.0 Baso % (Auto) (0.0 - 2.0 %) 0.6 Neut # (Auto) (2.0 - 7.6 x10 3/uL) 2.38 Lymph # (Auto) (1.0 - 3.8 x10 3/uL) 2.09 [place] # (Auto) (0.1 - 0.8 x10 3/uL) 0.31 Eos # (Auto) (0.0 - 0.2 x10 3/uL) 0.15 Baso # (Auto) (0.0 - 0.2 x10 3/uL) 0.03 Abs Immat Gran (auto) (0.00 - 0.03 x10 3/uL) 0. 01 Add Manual Diff NO Immature Gran % (0.0 - 2.0 %) 0.2 Nucleated RBC % (0 - 0 %) 0.0 Nucleated RBCs # (Man) (0.0 - 0.1 x10 3/uL) 0.0 0 Radiology data: Recent Impressions: NUCLEAR MEDICINE - PULM VENT PERF IMAG 10/25 143 0 Report Impression - Status: SIGNED Entered: 10/25/2018 1531 IMPRESSION: Low probability for pulmonary embolus. SL:01 Impression By: Deanna Hoskins Diagnosis, Assessment Plan Free Text A P: ATYPICAL CP - MULTIPLE RISKS, CARD SEEN, ECHO EF 50%, CATH SCHEDULED AT [facility], BUT MAY HAVE TO RESCHEDULED, PER CARD, NOT RECOMMENDED, D/C HOME IF OK WITH CARD , F/U O/P, CONSIDER STRESS IF RECURRENCE HIGH D-DIMER - CT CHEST WITHOUT CONTRAST NEGATIVE, VENOUD DOPPLER NEGATIVE, VQ NEGATIVE, PULM SEEN, O/P PSG PIERRE - ON CPAP AT HOME OBESITY, S/P GASTRIC BYPASS WITH 100 LB WT LOSS - STABLE, CARD FEELS SHE'S DEHYDRATED AND CAUSING SYNCOPE, GIVE IVF X2L, CO RRECT LOW K+, NOW 4.0 HYPOTHYROIDISM - TSH 2.3, ON SYNTHROID 0.025 MG DM - GOOD, HGB A1C 5.5% DVT PX - ON FULL DOSE LOVENOX Electronically Signed by Chris Ny MD on 10/26 at 1207 RPT #:[id number] END OF REPORT 2018-10-26 11:51:00-00:00 [facility]) Pulmonology Progress Note REPORT#:[id number] REPORT STATUS: Signed DATE:10/26/18 TIME: 1151 PATIENT: CARLEE AGUILAR UNIT #: [id number] ROOM/BED: [place] [address] : 69 AGE: 48 SEX: F ATTEND: Scooby Ross MD ADM AUTHOR: Aurora Mae MD * ALL edits or amendments must be made on the [employer]/computer document * Review of Systems ROS Constitutional: Denies: fever, generalized weakness, malaise. Respiratory: Reports: SOB. Denies: parox nocturnal dyspnea, p neumonia, wheezing. Cardiovascular: Denies: edema. Musculoskeletal: Denies: extremity swelling, lumbar pain, neck pa in. Heme: Denies: adenopathy, bleeding, bruising, petechia e, other. Objective Physical Exam VS/I O: Last Documented: Result Date Time Pulse Ox 100 10/26 1108 B/P 96/57 10/26 1108 B/P Mean 69.7 10/26 1108 Pulse 41 10/26 1108 O2 Delivery CPAP 10/26 110 Temp 98.1 10/26 1106 Resp 18 10/26 1106 24 hour I O ending at 0700: 10/26 0700 10/25 1900 Intake Total 700.00 Output Total Balance 700.00 Intake, IV 700.00 Medications: Active Meds + DC'd Last 24 Hrs Enoxaparin Sodium 40 MG Q24H SUBQ Zolpidem Tartrate 10 MG BEDTIME PO Enoxaparin Sodium 105 MG Q12H SUBQ (DC) Potassium Chloride/Sodium Chloride 1,000 ML .Q10 H IV (DC) Estradiol 1 MG DAILY PO Famotidine 20 MG Q12HR PO Lisinopril 10 MG DAILY PO Pantoprazole 40 MG DAILY PO Insulin Human Lispro 0 AC HS SUBQ Levothyroxine Sodium 25 MCG DAILY@0630 PO Dextrose/Water 25 ML ASDIR PRN IV Dextrose/Water 50 ML ASDIR PRN IV Glucagon 1 MG ASDIR PRN IM Promethazine HCl 12.5 MG Q6H PRN PRN IM Promethazine HCl 12.5 MG Q4H PRN PRN PO Acetaminophen 650 MG Q4H PRN PRN PO Morphine Sulfate 4 MG Q4H PRN PRN IV Ondansetron HCl 4 MG Q6H PRN PRN IV Sodium Chloride 0 ASDIR PRN IV (DC) General appearance: alert, awake, oriented Head/eyes: atraumatic, normocephalic, PERRL, PER RLA Neck: full range of motion, non-tender, normal t hyroid Cardiovascular: normal heart sounds, normal S1/S 2, regular rate rhythm Respiratory/chest: aerating well, clear to auscu ltation, symmetric expansion Abdomen: soft, non-tender, normal bowel sounds Extremities: moves all, normal capillary refill, normal temperature, no calf tenderness, no clubbing Diagnosis, Assessment Plan Free Text A P: Problems and plans Chest pain Fatigue Shortness of breath Chronic anemia possibly malabsorption Hypokalemia Sleep apnea Status post gastric bypass surgery with 100 poun ds weight loss. All lab and imaging reviewed. Chest CT with no contrast was done due to patien t's contrast allergy no acute pathology. VQ low probability. DC therapeutic Lovenox. Continue with DVT prophy laxis dose. Echocardiogram is pending. Cardiology evaluation is progress. If cardiac workup is negative can consider low-d ose prednisone for pleurisy Replace potassium. Recommend repeat sleep study as an outpatient gi jyoti that she lost 100 pounds since her last study was done. Thank you for the consultati on and opportunity to participate in this patient's care 10/26: CT chest is clear, no pulm explanation for her c hest pian high probability of CAD, I r ecommened cardiac work up including stress test and possible angiogram. adviced for PSG study as outpt. keep CPAP for now. Electronically Signed by Aurora Mae MD on 10/09 04/26 at 1154 RPT #:[id number] END OF REPORT 2018-10-25 17:58:00-00:00 [facility] ([facility]) Pulmonary Consultation Note REPORT#:[id number] REPORT STATUS: Signed DATE:10/25/18 TIME: 1758 PATIENT: CARLEE AGUILAR UNIT #: [id number] ROOM/BED: [place] [address] : 69 AGE: 48 SEX: F ATTEND: Scooby Ross MD ADM AUTHOR: Sonia Seymour MD * ALL edits or amendments must be made on the [employer]/computer document * History of Present Illness HPI HPI: 48-year-old female with a hi story of sleep apnea on CPAP therapy, morbid obesity status post gastric bypass in November, after which she lost 100 pounds who presented with 2 weeks of shortness of breath, s ignificant fatigue, decreased level of energy episodes of passing out and subs ternal chest pain. She describes her chest pain most on the lef t side, but is pleuritic in nature and radiating to the left arm. She does have some chills, no fever. She reports having a history of bradycardia that was diagnos ed 5 months ago and has an outpatient cardiology was planning to do heart cath for further evaluation . She is a former smoker 1 pack/day for 20 years, she quit in 2012. She has been using her CPAP machine nightly. On admission to the emergenc y room she was found to have low potassium of 3.3 as well as mild anemia with a hemoglobin of 10.8. Workup for PE has been initiated, with some limi tations given her contrast allergy. History - Adult longitudinal Past medical history: Reports: Diabetes mellitus, Hypertension, Headache disorder, Thyroid disorder ( Hypothyroid). Additional medical history: IBS, Sleep Apnea Alcohol use: Denies EtOH use Smoking status for patients 13 years old or olde r: Never Smoker Other social history: Local resident Allergies: Coded Allergies: iodine (Severe, ITCHING 10/21/17) Sulfa (Sulfonamide Antibiotics) (Intermediate, H LAURITA 11/16/16) ketorolac (From TORADOL) (Mild, RASH 11/16/16) latex (Mild, ITCHING FROM POWDER 11/16/16) Uncoded Allergies: IV CONTRAST (Severe, HIVES, ITCHING, TROUBLE GEORGI ATHING. 10/25/18) NSIADS (HAD GASTRIC BYPASS SURGERY 10/25/18) Review of Systems Constitutional: Denies: fever. Skin: Denies: bruising. Eyes: Denies: discharge. ENT: Denies: nasal congestion. Respiratory: Reports: SOB. Cardiovascular: Reports: chest pain. GI: Denies: abdominal pain. : Denies: hematuria. Musculoskeletal: Denies: joint pain. Heme: Denies: bleeding. Neuro: Denies: confusion. Objective Physical Exam: VS/I O: Last Documented: Result Date Time Pulse Ox 100 10/25 1556 B/P 98/62 10/25 1556 B/P Mean 74.4 10/25 1556 O2 Delivery Room air 10/25 1556 Temp 36.5 10/25 1556 Pulse 47 10/25 1556 Resp 16 10/25 1556 24 hour I O ending at 0700: 10/25 0700 10/24 1900 Intake Total Output Total Balance Patient 105 kg Weight Weight Bed scale Measurement Method General appearance: awake Head/Eyes: atraumatic ENT: dry mucosal membrane Neck: non-tender Cardiovascular: regular rate rhythm Respiratory/chest: decreased breath sounds Abdomen: soft Extremities: no cyanosis Musculoskeletal: no muscle spasm Neuro/INFORMATION MANAGEMENT SPECIALIST alert Skin: dry Results: Radiology Data: Recent Impressions: RADIOLOGY - XR CHEST 1 V 10/24 7825 Report Impression - Status: SIGNED Entered: 10/25/2018 0022 IMPRESSION: No acute cardiopulmonary disease see n. SL: [JSYED-H] Impression By: [id number] Raquel Marquez M.D. ULTRASOUND - DUP VEIN RASHID 10/25 0822 Report Impression - Status: SIGNED Entered: 10/25/2018 0843 IMPRESSION: 1. No deep venous thrombosis. 2. Complex right Gaspar's cyst. SL:01 Impression By: Deanna Hoskins CAT SCAN - CT CHEST W/O CONTRAST 10/25 0830 Report Impression - Status: SIGNED Entered: 10/25/2018 0907 IMPRESSION: 1. No acute intrathoracic abnormality demonstrat ed by noncontrast CT chest. 2. Previous gastric bypass and cholecystectomy. SL:01 Impression By: Deanna Hoskins NUCLEAR MEDICINE - PULM VENT PERF IMAG 10/25 143 0 Report Impression - Status: SIGNED Entered: 10/25/2018 1531 IMPRESSION: Low probability for pulmonary embolus. SL:01 Impression By: Deanna Hoskins Results: x-ray personally reviewed Diagnosis, Assessment Plan Diagnosis, Assessment Plan Free Text A P: Problems and plans Chest pain Fatigue Shortness of breath Chronic anemia possibly malabsorption Hypokalemia Sleep apnea Status post gastric bypass surgery with 100 poun ds weight loss. All lab and imaging reviewed. Chest CT with no contrast was done due to patien t's contrast allergy no acute pathology. VQ low probability. DC therapeutic Lovenox. Continue with DVT prophy laxis dose. Echocardiogram is pending. Cardiology evaluation is progress. If cardiac workup is negative can consider low-d ose prednisone for pleurisy Replace potassium. Recommend repeat sleep study as an outpatient gi jyoti that she lost 100 pounds since her last study was done. Thank you for the consultati on and opportunity to participate in this patient's care Electronically Signed by Sonia Seymour MD on at 1812 RPT #:[id number] END OF REPORT 2018-10-25 16:32:00-00:00 [id number] [address] PATIENT NAME: CARLEE AGUILAR ADMIT DATE: 10/25/18 ACCOUNT NO: [id number] ROOM NO: [facility] AGE: 48 REPORT TYPE: eECHOCARDIOGRAM REPORT SEX: F ADMITTING PHYSICIAN:Scooby Ross MD ATTENDING PHYSICIAN:Scooby Ross MD Exam Date: 10/25/2018 11:05:00 Exam Type: Transthoracic Echocardiogram Indication: CP BP: 105/71 HR: 52 Measurements Name Value Normal Range Ao root diameter (MM) 2.97 cm - LA dimension (AP) MM 4.53 cm (1.9 - 4) LA:Ao ratio (MM) 1.53 ratio (Less Than 1.5) Ao root diameter (MM) in1.46 cm/m2 - LA dimension (MM) index 2.23 cm/m2 - Name Value Normal Range IVSd (2D) 0.95 cm (0.6 - 1.1) LVPWd (2D) 0.75 cm (0.6 - 1.1) IVS:LVPW ratio (2D) 1.25 ratio - LVIDd (2D) 5.59 cm (3.5 - 5.6) LVIDs (2D) 3.52 cm (2.1 - 4) LVIDd (2D) index 2.75 cm/m2 - LVIDs (2D) index 1.73 cm/m2 - LV FS (2D) 37.07 % - EF Teichholz (2D) 66.35 % (50 - 90) Name Value Normal Range LV mass (2D) 177.6 g - LV mass (2D) index 87.51 g/m2 - Name Value Normal Range MV E-wave Vmax 0.91 m/sec - MV deceleration time 233.01 msec - MV A-wave Vmax 0.57 m/sec - MV E:A ratio 1.6 ratio - Name Value Normal Range AV Vmax 1.55 m/sec - AV peak gradient 9.58 mmHg - LVOT diameter 1.87 cm (1.8 - 2.2) LVOT Vmax 1.2 m/sec - PATIENT NAME: CARLEE AGUILAR 02 LVOT VTI 26.47 cm - LVOT peak gradient 5.78 mmHg - LVOT mean gradient 2.7 mmHg - DOI (Vmax) 0.78 ratio - SV LVOT 72.77 ml - CO LVOT 3.78 l/min - Cardiac index 1.86 l/min/m2 - ELEAZAR (continuity Vmax) 2.14 cm2 - ELEAZAR (continuity Vmax) in1.05 cm2/m2 - Name Value Normal Range TR Vmax 2.34 m/sec - TR peak gradient 21.95 mmHg - RAP 10 mmHg - RVSP 31.95 mmHg (15 - 30) PAP 31.95 mmHg - Findings Study Quality: This is a technically compromised examination. Left Ventricle: The left ventricular chamber size is slightly di lated. There is no left ventricular hypertrophy observed. There is globa l hypokinesis of the left ventricle with minor regional variation. Th e estimated ejection fraction is 50%. The anterior wall appears hypok inetic. Normal left ventricular diastolic filling is observed. Left Atrium: The left atrium is normal in size with no visual thrombus identified. Right Ventricle: The right ventricle is not well visualized. Right Atrium: The right atrium is not well visualized. Aortic Valve: The aortic valve leaflets appear sclerotic. Ther e is no evidence of aortic stenosis. Mitral Valve: The mitral valve appears normal in structure and function. There is no evidence of mitral stenosis. There is a trace of mitral regurgitation. Tricuspid Valve: The tricuspid valve is not well visualized. Ther e is trivial tricuspid regurgitation. There is evidence of mild pulmona ry hypertension. The pulmonary artery pressure is estimated at 31.95 mmHg. Pulmonic Valve: The pulmonic valve is not well visualized. Pericardium: PATIENT NAME: CARLEE AGUILAR 202 There is no pericardial effusion. Aorta: The aortic root appears normal. Pulmonary Artery: The main pulmonary artery is not well visualized . Conclusions 1. The left ventricular chamber size is slightly dilated. 2. The estimated ejection fraction is 50%. 3. The anterior wall appears hypokinetic. 4. The aortic valve leaflets appear sclerotic. 5. There is a trace of mitral regurgitation. 6. There is evidence of mild pulmonary hypertens ion. Electronically Signed by Dario Singh MD on 10/09 03/26 at 1635 PATIENT NAME: CARLEE AGUILAR 2018-10-25 11:08:00-00:00 [facility] ([facility]) Clinical Note REPORT#:[id number] REPORT STATUS: Signed DATE:10/25/18 TIME: 1108 PATIENT: CARLEE AGUILAR UNIT #: [id number] ROOM/BED: [place] [address] : 69 AGE: 48 SEX: F ATTEND: Scooby Ross MD ADM AUTHOR: Chris Ny MD * ALL edits or amendments must be made on the [employer]/computer document * Clinical Note Note: SEEN BY DR. ROSS THIS AM. ATYPICAL CP - MULTIPLE RISKS, CARD SEEN, ECHO PE NDING, CATH SCHEDULED FOR TOMORROW AT [facility], BUT MAY HAVE TO CANCEL HIGH D-DIMER - CT CHEST WITH OUT CONTRAST NEGATIVE, VENOUD DOPPLER NEGATIVE, BUT HIGH SUSPICION, THUS GET VQ SCAN, ON FULL DOSE L OVENOX UNTIL VQ RESULTS OBESITY, S/P GASTRIC BYPASS WITH 100 LB WT LOSS - STABLE, CARD FEELS SHE'S DEHYDRATED AND CAUSING SYNCOPE, GIVE IVF X2L, CO RRECT LOW K+ HYPOTHYROIDISM - TSH 2.3, ON SYNTHROID 0.025 MG DM - GOOD, HGB A1C 5.5% DVT PX - ON FULL DOSE LOVENOX Electronically Signed by Chris Ny MD on 10/25 at 1115 RPT #:[id number] END OF REPORT 2018-10-25 09:11:00-00:00 [id number] [place] [address] PATIENT NAME: CARLEE AGUILAR ADMIT DATE: 10/25/18 ACCOUNT NO: [id number] ROOM NO: [facility] AGE: 48 REPORT TYPE: CONSULTATION REPORT SEX: F ADMITTING PHYSICIAN:Scooby Ross MD ATTENDING PHYSICIAN:Scooby Ross MD CONSULTATION DATE: 10/25/2018 CONSULTING PHYSICIAN: Dario Singh MD CARDIOLOGY CONSULTATION REASON FOR CONSULTATION: Bradycardia and subster nal chest pain. HISTORY OF PRESENT ILLNESS: This is a 48-year-ol d female, who is quite emotional and teary eyes, basically reporting th at the past 2 weeks, she has just not felt well. She is having chest pains, f ainting spells, shortness of breath, and generalized weakness. A year ago, she had a gastric bypass surgery done, which since then she h as lost 110 pounds. She feels like her electrolytes are off and she is dehydrated. After a syncopal spell, she was evaluated at [facility] and in fact, s he is scheduled to have cardiac catheterization, but last night, she started having substernal chest pain, which is described as sharp pain, more on deep breathing and she got s cared along with shortness of breath, so she decided to come to the hospital. The symptoms are quite pleuritic in nature. This morning, she i s still reporting some pain, while she takes a deep breath. She is not short of breath at rest, but she does have oxygen going on. PAST MEDICAL HISTORY: 1. No history of CAD or CHF. 2. Hypertension. 3. Status post gastric bypass surgery and has lo st 101 pounds. 4. Electrolyte abnormality. 5. Type 2 diabetes, but now gone since she lost weight. 6. Hypothyroidism. 7. Sleep apnea. 8. Bradycardia. MEDICATIONS: List reviewed. SOCIAL HISTORY: Prior smoking, but none over pas t 5 years. FAMILY HISTORY: Negative for premature CAD. REVIEW OF SYSTEMS: Negative for syncope or presy ncope. No seizure-like activity. Positive for chest pain. Positive for palpitation. Negative for PND or orthopnea. Does have shortness of breath on e xertion. No hemoptysis, hematemesis, hematochezia, or melena. No fever, chills, myalgia, or muscular pain. Some recurrent abdominal pain with nausea and vomiting. PATIENT NAME: CARLEE AGUILAR [id number] [place] [address] PATIENT NAME: CARLEE AGUILAR ADMIT DATE: 10/25/18 ACCOUNT NO: [id number] ROOM NO: [id number] AGE: 48 REPORT TYPE: CONSULTATION REPORT SEX: F ADMITTING PHYSICIAN:Scooby Ross MD ATTENDING PHYSICIAN:Scooby Ross MD PHYSICAL EXAMINATION: GENERAL: The patient is obese, but other esquivel in no apparent distress, a little emotional. VITAL SIGNS: At present, stable. Heart rate is i n high 40s. HEENT: Remarkable for mild pallor. NECK: Soft and supple. No JVD appreciated. No ca rotid bruit. HEART: Revealed normal precordium with no palpab le heart sounds or thrill. Bradycardia. Normal first and second heart sound s. Regular rhythm. No obvious murmur, rub, or gallop. LUNGS: Bilaterally equal breath sounds, diminish ed at bases. No rales or rhonchi. ABDOMEN: Distended and soft. No hepatosplenomega ly. EXTREMITIES: No clubbing, cyanosis, or edema. NEUROLOGICAL: The patient is alert and o riented to time, place, and person. No gross motor deficit. LABORATORY DATA AND DIAGNOSTIC STUDIES: EKG on a dmission shows normal sinus rhythm with some bradycardia, but no ST-T change s. Cardiac enzymes negative. Hemoglobin is 10.8, pl atelet count is 164, and WBC count is 6.39. D-dimer is elevated. Sodium 142, potassium 3.4, BUN 13, and creatinine 0.5. Liver function is within normal limit. BNP is 20. IMPRESSION: 1. Chest pain. The description of chest pain is quite atypical, consistent with pleuritic chest pain. There is no evidence of ischemia on EKG. Her cardiac enzymes are normal. Very unlikely, this patient has coronary artery disease. I think this is either musculos keletal pain or some sort of pleurisy. In any case, we will continue with observation. I will get an echocardiogram done to assess left ventricular function and rule out any pericardial process. I have discussed this with the patient. Although , she was scheduled to have cardiac catheterization. I just do not see clear indication, but we can possibly change that plan. 2. Morbid obesity. The patient has lost 100 poun ds over past one year since her gastric bypass surgery. 3. Syncope, more than likely it is volume deplet ion as well as electrolyte abnormality. 4. Hypokalemia, probably related to her gastric bypass surgery state. RECOMMENDATIONS: 1. Electrolyte supplement. 2. Assess thyroid function. PATIENT NAME: CARLEE AGUILAR 02 [id number] [place] [address] PATIENT NAME: CARLEE AGUILAR ADMIT DATE: 10/25/18 ACCOUNT NO: [id number] ROOM NO: [facility]05 AGE: 48 REPORT TYPE: CONSULTATION REPORT SEX: F ADMITTING PHYSICIAN:Scooby Ross MD ATTENDING PHYSICIAN:Scooby Ross MD 3. CT scan of the chest, possibly. 4. Echocardiogram to assess LV function. 5. We will continue to follow and reassess after echocardiogram is done. Dictated By: Dario Singh MD WT: CON:NITZA/ELLIOT. Conf#: [id number]/DID#: [id number] Authenticated by Dario Singh MD On 10/25/2018 01:11:54 PM Electronically Signed by Dario Singh MD on 10/09 03/26 at 1312 PATIENT NAME: CARLEE AGUILAR 2018-10-25 04:26:00-00:00 [id number] [place] [address] PATIENT NAME: CARLEE GAUILAR ADMIT DATE: 10/25/18 ACCOUNT NO: [id number] ROOM NO: [facility] AGE: 48 REPORT TYPE: HISTORY AND PHYSICAL SEX: F ADMITTING PHYSICIAN:Scooby Ross MD ATTENDING PHYSICIAN:Scooby Ross MD ADMISSION DATE: 10/25/2018 CHIEF COMPLAINT: Chest pain. HISTORY OF PRESENT ILLNESS: The patient is a 48-year-old female with a history of diabetes and hypertension , who scheduled to get a cardiac catheterization at [facility] on Friday. The patient states that last night the patient became short of breath, having chest pain, substernal pa in, also pleuritic type pain and could not wait for the cath on Fri at [facility] and thus came to [facility] for further evaluation. The patient states that she is going to get the cath on Friday because of persistent bradycardia. PAST MEDICAL HISTORY: The patient's past medical history includes bradycardia; obstructive sleep apnea; type 2 diabetes, last A 1c was 5.2 according to the patient; hypothyroidism; hyp ertension; irritable bowel syndrome causing chronic constipation. MEDICATIONS ON ADMISSION: Metformin 250 mg daily , Zyrtec, Linzess, lisinopril 10 mg daily, estradiol, levothyroxine, Protonix, and Lunesta at night. The patient also is allergic to contrast, so she is supposed to be taking a premed prior to her cath on Friday starting this mornin g of Pepcid, prednisone, and Benadryl. SOCIAL HISTORY: Quit smoking in 2012. Denies any alcohol abuse or drug abuse. 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 ALLERGIES: TO IV CONTRAST, TORADOL, SULFA DRUGS AND SHE CANNOT TAKE NSAIDS. PAST SURGICAL HISTORY: The patient had a Heather-en -Y less than a year ago in November 2017 causing she states 101 pound weight loss, hysterectomy, gallbladder removal, hemorrhoidectomy, gamekeepers thumb james lorraine, total knee replacement, and left breast biopsies x2. FAMILY HISTORY: Not relevant to current illness. REVIEW OF SYSTEMS: As in the HPI, all others neg ative. PHYSICAL EXAMINATION: VITAL SIGNS: Please see chart. GENERAL: The patient is awake and alert. The pat ient is wearing CPAP for her sleep apnea. HEENT: Normocephalic and atraumatic. Sclerae is anicteric. Trachea midline. LUNGS: Clear to auscultation anteriorly. PATIENT NAME: CARLEE AGUILAR 02 HEART: Regular rhythm. No murmurs, gallops, or r ubs. ABDOMEN: Soft, nontender, nondistended. Normoact ellyn bowel sounds. No hepatosplenomegaly. No mass palpated. EXTREMITIES: Showed no cyanosis, clubbing, or ed elsa. Distal pulse 2+. NEUROLOGICAL: Grossly nonfocal. LABORATORY DATA AND DIAGNOSTIC DATA: CBC was unr emarkable. PT was unremarkable. D-dimer was 1162. Basic metabolic panel was also unremarkable. Normal LFTs. Chest x-ray was normal. BNP was 20. 4. Troponin was negative. ASSESSMENT AND PLAN: The patient is a 48-year-ol d female, who presents with chest pain with multiple cardiac risk factors. 1. Chest pain, rule out for myocardial i nfarction with serial troponins, EKGs, and telemetry. Consult cardiology and echocardio gram and for further recommendations per cardiolo gy. The patient is scheduled for catheterization on Friday at [facility], supposed to be taking premed for her iodine allergy. 2. D-dimer is elevated. V/Q scan and Dopplers ar e pending. In light of her pleuritic type pain, we will also get a CAT scan of her chest and consult pulmonary. 3. Diabetes. Cover with sliding scale. 4. Hypertension. Continue blood pressure medicat ion. 5. Hypothyroidism. Check TSH. 6. Irritable bowel syndrome. Continue Linzess an d further recommendation as per above. Dictated By: Scooby Ross MD, M, FACP WT: HP:G.HONG/YOUNG/NTS Conf#: [id number]/DID#: [id number] Authenticated by Scooby Ross MD On 10/26/2018 06:03:04 AM Electronically Signed by Scooby Ross MD on at 0603 PATIENT NAME: CARLEE AGUILAR 2018-10-24 23:15:00-00:00 [facility] ([facility] EMERGENCY PROVIDER REPORT REPORT#:[id number] REPORT STATUS: Signed DATE:10/24/18 TIME: 2314 PATIENT: CARLEE AGUILAR UNIT #: [id number] ROOM/BED: [place] [address] AGE: 48 SEX: F PCP PHYS: No Primary or Family Ph ysician SERVICE AUTHOR: Pam Benitez DO * ALL edits or amendments must be made on the Advaction/computer document * HPI-Chest Pain 40 and Over General Confirmed Patient Yes Initial Greet Date/Time 10/24/18 2309 PCP Collin Beasley-PCP Presentation Chief Complaint Chest pain Hx Obtained From Patient Sudden in Onset? Yes Onset Occurred Today, Just prior to arrival Symptom Duration Since onset Progression since Onset Unchanged Context of Onset At rest )( Migration/Movement None Severity: Current Pain level 7 out of 10 Associated with Reports: Fatigue, Nausea, Shortness of Breath. 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 Pt states she was laying in bed when sxs started. She notes taking a zofran. Pt reports assoc ss of SOB, fatigue and nausea. Denies any other sxs at this time. N o blood thinners. Portions of this section were scribed by Lloyd Christy on 10/25/18 at 0032 Risk-Chest Pain 40 and Over Risk Stratification )( Coronary Artery Disease Risk factors reviewed )( Thoracic Aortic Dissection Risk factors revie wed )( Pulmonary Embolism Risk factors reviewed )( AMI-Aspirin Aspirin Last 24 Hrs Not indicated Portions of this section were scribed by Lloyd Christy on 10/24/18 at 2315 Review of Systems ROS Statements All systems rev neg except as marked. Focused Review of Systems Constitutional Reports: Fatigue. Respiratory Reports: Shortness of breath. Cardiovascular Reports: Chest pain. GI Reports: Nausea. Portions of this section were scribed by Lloyd Christy on 10/24/18 at 2315 Past Medical History - Adult Stated Complaint CARDIAC Allergies Coded Allergies: iodine (Severe, ITCHING 10/21/17) Sulfa (Sulfonamide Antibiotics) (Intermediate, H LAURITA 11/16/16) ketorolac (From TORADOL) (Mild, RASH 11/16/16) latex (Mild, ITCHING FROM POWDER 11/16/16) Uncoded Allergies: IV CONTRAST (Severe, HIVES, ITCHING, TROUBLE GEORGI ATHING. 10/25/18) NSIADS (HAD GASTRIC BYPASS SURGERY 10/25/18) Home Medications Reported Medications FAMOTIDINE (PEPCID) 20 MG PO Q12HR LEVOTHYROXINE (SYNTHROID) 25 MCG PO DAILY metFORMIN (GLUCOPHAGE) 1,000 MG PO BID CETIRIZINE (ZyrTEC) 10 MG PO DAILY LISINOPRIL (ZESTRIL) 10 MG PO DAILY PANTOPRAZOLE DR (PROTONIX) 40 MG PO DAILY ESTRADIOL (ESTRACE) 1 MG PO DAILY hydrOXYzine HCL (ATARAX) 100 MG PO DAILY prednisoLONE 20 MG PO Q6H diphenhydrAMINE (BENADRYL) diphenhydrAMINE (BENADRYL) 25 MG PO Q12HR ESZOPICLONE (LUNESTA) 3 MG PO BEDTIME Discontinued Reported Medications DILTIAZEM SR (CARDIZEM SR) 60 MG PO DAILY [LINZESS] 290 MCG PO DAILY hydrOXYzine HCL (ATARAX) 100 MG PO QID LISINOPRIL (ZESTRIL) 20 MG PO DAILY TEMAZEPAM (RESTORIL) 15 MG PO BEDTIME Past Medical History: Reports: Diabetes mellitus, Hypertension, Headache disorder, Thyroid disorder ( Hypothyroid). Additional Medical History IBS, Sleep Apnea Past Surgical History: Reports: Cholecystectomy, Hysterectomy. Alcohol Use Denies EtOH use Smoking status for patients 13 years old or olde r: Never Smoker Other Social History Local resident Portions of this section were scribed by Lloyd Christy on 10/24/18 at 2315 Physical Exam Vital Signs Vital Signs First Documented: Result Date Time Pulse Ox 97 10/24 2302 B/P 130/70 10/24 2302 B/P Mean 90 10/24 2302 O2 Delivery Room air 10/24 2302 Temp 37.1 10/24 2302 Pulse 67 10/24 2302 Resp 18 10/24 2302 Last Documented: Result Date Time Pulse Ox 99 10/25 B/P 140/65 10/25 0000 B/P Mean 90 10/25 0000 O2 Delivery Room air 10/25 Temp 37.1 10/25 0000 Pulse 75 10/25 Resp 18 10/25 Review of Vital Signs Reviewed Focused PE General/Const General/Const Awake, Alert, Well developed, [employer] Registrar perative Eyes Eyes EOMI, Conjunctiva NL Resp/Chest Respiratory/Chest Breath sounds NL, No respirat ory distress, No rales, No rhonchi, No wheezing Cardiovascular Cardiovascular Heart rate NL, Regular rhythm, H eart sounds NL Abdomen/GI Abdomen/GI Soft, Non-tender, No guarding, No re bound, No distention MS Lower Extrem Lower Ext/Pelvis/MS No swelling, Non-tender Skin Skin Warm, Dry, Intact Neurologic Neurologic Oriented X3, Speech NL Psychiatric Psychiatric Affect NL, Mood NL Additional PE MS Head Head Atraumatic, Normocephalic Ears/Nose/Throat Ears/Nose/Throat Airway patent, Mucous membrane s moist Portions of this section were scribed by Lloyd Christy on 10/25/18 at 0032 Interpretation Diagnostics Lab Results Interpretation Results Laboratory Tests 10/24/18 2323: [Embedded Image Not Available] Laboratory Tests: 10/24 10/24 2323 2323 Chemistry Sodium (134 - 147 mEq/L) 142 Potassium (3.4 - 5.0 mEq/L) 3.4 Chloride (100 - 108 mEq/L) 108 Carbon Dioxide (21 - 33 mEq/L) 31 Anion Gap (0 - 20) 6 BUN (7 - 18 mg/dL) 13 Creatinine (0.6 - 1.3 mg/dL) 0.5 L Glomerular Filtr Rate (95 - 105) 131.1 H Glucose (70 - 110 mg/dL) 86 Calcium (8.0 - 10.5 mg/dL) 8.3 Total Bilirubin (0.0 - 1.0 mg/dL) 0.20 Direct Bilirubin (0.0 - 0.30 MG/DL) < 0.10 Indirect Bilirubin (MG/DL) 0.10 AST (15 - 37 IUnit/L) 14 L ALT (15 - 65 IUnit/L) 31 Total Alk Phosphatase (20 - 125 IUnit/L) 102 B-Natriuretic Peptide (0 - 100 PG/ML) 20.4 Total Protein (6.4 - 8.2 g/dL) 7.4 Albumin (3.4 - 5.0 g/dL) 3.60 Coagulation INR (0.8 - 1.2) 1.1 PT Patient/Control Mix (9.3 - 12.9 SECONDS) 12. 4 D-Dimer (<=500 ng/mlFEU) 1162 *H Hematology WBC (4.5 - 11.0 x10 3/uL) 6.39 RBC (3.54 - 5.02 x10 6/uL) 4.29 Hgb (11.0 - 15.0 g/dL) 12.1 Hct (33.0 - 45.0 %) 37.0 MCV (81.0 - 99.0 fL) 86.2 MCH (27.0 - 33.0 pg) 28.2 MCHC (33.0 - 37.0 g/dL) 32.7 L RDW (11.5 - 14.5 %) 13.2 Plt Count (150 - 400 x10 3/uL) 244 MPV (7.0 - 9.0 fL) 10.8 H Neut % (Auto) (56.0 - 77.0 %) 62.3 Lymph % (Auto) (14.0 - 32.0 %) 27.9 [place] % (Auto) (4.8 - 9.0 %) 6.1 Eos % (Auto) (0.3 - 3.7 %) 3.0 Baso % (Auto) (0.0 - 2.0 %) 0.5 Neut # (Auto) (2.0 - 7.6 x10 3/uL) 3.99 Lymph # (Auto) (1.0 - 3.8 x10 3/uL) 1.78 [place] # (Auto) (0.1 - 0.8 x10 3/uL) 0.39 Eos # (Auto) (0.0 - 0.2 x10 3/uL) 0.19 Baso # (Auto) (0.0 - 0.2 x10 3/uL) 0.03 Abs Immat Gran (auto) (0.00 - 0.03 x10 3/uL) 0. 01 Add Manual Diff NO Immature Gran % (0.0 - 2.0 %) 0.2 Nucleated RBC % (0 - 0 %) 0.0 Nucleated RBCs # (Man) (0.0 - 0.1 x10 3/uL) 0.0 0 Recent Impressions: RADIOLOGY - XR CHEST 1 V 10/24 1585 Report Impression - Status: SIGNED Entered: 10/25/2018 0022 IMPRESSION: No acute cardiopulmonary disease see n. SL: [JSYED-H] Impression By: [id number] - Chace Marquez M.D. Lab Imaging Statement Laboratory radiographic studies reviewed and con sidered in the medical decision-making. Point of Care Testing Pulse Oximetry Pulse Ox % 97 On: Room air Interpretation Interpreted by me, Pulse oximetr y normal Time 2303 ECG #1 Interpretation Date 10/25/18 Time 2309 Interpreted by ED physician NL ECG Interpretation Normal rate, Kayla l sinus rhythm, No STEMI, Normal axis, Normal intervals Rate 66 Radiography X-Ray Chest Text/Dict Note IMPRESSION: No acute cardiopulmonary disease see n. Interpretation/Wet Read by Interpret - Radiolog ist Reviewed by ED physician Portions of this section were scribed by Lloyd Christy on 10/25/18 at 0032 Re-Evaluation MDM Re-Evaluation/Progress #1 Text/Dict Note Discussed results and recommended admission. Pt agrees w/ admission. Time of Re-Eval 0031 ED Course Medication(s) Ordered Medication(s) Ordered: Blood Formation,Coagulation Sig/James Start time Last Medication Dose Route Stop Time Status Admin Enoxaparin Sodium 105 MG X1ED STA 10/25 0011 D C 10/25 SUBQ 10/25 0012 0029 Enoxaparin Sodium 105 MG X1ED STA 10/25 0000 DC SUBQ 10/25 0001 Central Nervous System Agents Sig/James Start time Last Medication Dose Route Stop Time Status Admin Acetaminophen 650 MG Q4H PRN PRN 10/25 0045 AC PO 11/05 2333 Morphine Sulfate 4 MG Q4H PRN PRN 10/25 0045 A C 10/25 IV 11/05 2333 2118 Morphine Sulfate 4 MG X1ED STA 10/25 0007 DC IV 10/25 7 0028 Electrolytic, Caloric, And [place] Sig/James Start time Last Medication Dose Route Stop Time Status Admin Sodium Chloride 0 ASDIR PRN 10/24 2315 DC IV 10/25 2215 Gastrointestinal Drugs Sig/James Start time Last Medication Dose Route Stop Time Status Admin Ondansetron HCl 4 MG Q6H PRN PRN 10/25 0045 AC 10/25 IV 11/05 2333 1759 Consultation Consultation Referral/Consult Name Dario Singh MD Underwriting Support Manager Called Cardiology Requested Call Time 32 Requested Call Date 10/25/18 Call Returned Call returned Call Returned Time 32 Call Returned Date 10/25/18 Underwriting Support Manager Will see patient Portions of this section were scribed by Lloyd Christy on 10/25/18 at 0032 Patient Discharge Departure Vital Signs/Condition Vital Signs First Documented: Result Date Time Pulse Ox 97 10/24 2303 B/P 130/70 10/24 2303 B/P Mean 90 10/24 2303 O2 Delivery Room air 10/24 2303 Temp 37.1 10/24 2303 Pulse 67 10/24 2303 Resp 18 10/24 2303 Last Documented: Result Date Time Pulse Ox 99 10/25 0000 B/P 140/65 10/25 0000 B/P Mean 90 10/25 0000 O2 Delivery Room air 10/25 0000 Temp 37.1 10/25 0000 Pulse 75 / 0000 Resp 18 10/25 0000 All vital signs available at the time of this en try have been reviewed. Condition Guarded Clinical Impression Clinical Impression Primary Impression: Chest pain Secondary Impressions: Elevated d-dimer Disposition Decision Admit Admit Physician Name Scooby Ross MD Admit Physician Hospitalist Request Time 30 Request Date 10/25/18 )( Admission Accepts Yes )( Accepted Time 30 )( Accepted Date 10/25/18 Call Information will see patient Discharge/Care Plan Counseled Regarding Diagnosi s, Lab results, Imaging studies, Need for admission Supervising Physician Note Scribe Statement Lloyd Christy, 10/24/182315, scribing for and i n the presence of . Signed By: Lloyd Christy, 10/24/182315 Provider Scribed Statement I personally performed the s ervices described in this documentation and reviewed the documentation that was dictated to the scrib e(s) in my presence, and it accurately records my words and actions. Eber Benitez, 10/25/18 Portions of this section were scribed by Lloyd Christy on 10/25/18 at 0032 Electronically Signed by Pam Benitez DO on at 2342 RPT #:[id number] END OF REPORT 2018-01-05 23:03:54-00:00 [facility] Operative Report/Procedure PATIENT NAME: CARLEE AGUILAR PHYSICIAN: Joe Carvalho MD Admitted: MR NUMBER: [id number] DISCHARGED: DATE OF SURGERY: 12/03/2017 SURGEON: Joe Carvalho MD INSURANCE SALES EXECUTIVE: Dr. Cruz SECOND INSURANCE SALES EXECUTIVE:Jorge Eubanks ANESTHESIA: General endotracheal anesthesia. PREOPERATIVE DIAGNOSES: 1. Morbid obesity. 2. Hypertension. 3. Type 2 diabetes mellitus. POSTOPERATIVE DIAGNOSES: 1. Morbid obesity. 2. Hypertension. 3. Type 2 diabetes mellitus. COMPLICATIONS: None. INSTRUMENT AND SPONGE COUNT: Correct at the end of the procedure. ESTIMATED BLOOD LOSS: Minimal. DRAINS: One 19 mm Jaren-Elias drain. IMPLANTS: None. SPECIMENS: None. PROCEDURES PERFORMED: 1. Laparoscopic Heather-en-Y gastric bypass. 2. Esophagogastroduodenoscopy by Dr. Cruz . INDICATIONS: This patient is a 47-year-old female with morbid obesity, hypertension, diabetes mellitus and sleep apnea. She is in pre operative preparation and has been cleared for surgery. [facility] Operative Report/Procedure OPERATION IN DETAIL: After satisfactory preoperative preparation, she was taken to the operating room, and placed on the operating room table in supine position. After induction of general endotracheal anesthesia, th e patient was prepped with ChloraPrep and draped in the usual sterile fashi on. A 0.25% Marcaine was infiltrated in all the incision sites. The initi al incision was a 12 mm incision supraumbilical sided left of the midlin e. This port was inserted using the Optiview and the 10 mm 0-degree scope. Each layer from the subcutaneous tissue to the rectus muscle and she ath was identified upon entering the abdomen. Following this another 12 mm port was in place in the right upper quadrant, followed by a 12 mm port i n the right lower quadrant, 5 mm ports were placed in the left upper quadrant and subxiphoid. Additional 12 mm port was placed in the left lower quadrant along with a 5 mm procurement assistant port. The nasal retractor was then placed in the abdomen and left in place. After placing all the ports, we then used the [place] VisualDNA scalpel to dissect and transect the omentum in the midline. Following t his, the transverse colon was then elevated, the ligament of Treitz was id entified and we then marched down the ligament of Treitz until about 40 cm an d selected a site for transection of our small bowel. The Covidien 60 stapling device was used with gold cartridge we transected the bowel at t his point. We then used the Harmonic scalpel to dissect through the mesenter y. Placing clips were needed for hemostasis. This was done for about an 8-10 cm. Following this, we then identified a segment of small bowel for the Heather limb marching down for about 100 cm. We then did a zgys-wg-wmum anastomosis b etween the biliopancreatic and the Heather limb initially using the Harmonic s calpel to make enterotomies extending this to allow for insertion of the Cov idien stapler. With this, the anastomosis was done with the gold cartridge and Covidien 60 stapling device. We then did a second staple line with th e Covidien 60 gold stapler. The defect in the bowel was then elevated and we did a third firing of the Covidien 60 stapler with a gold cartridge to yoli se the enterotomy. We then placed fixation stitches using the EndoStitch wi th the 2-0 silk bringing the end of the anastomosis together and also placed an additional stitch in the mesentery, the one in the mesentery was left lit tle longer for later usage and closing the Kerr defect. After the anast omosis was created we then used 2 silk with the EndoStitch to close the Pet erson defect starting in the mesocolon and continued on to close the defect i n the small bowel mesentery as well. This was a running nonlocking stitch an d at the end of the stitch this was then tied to the previously placed silk stitch fixing the anastomosis. At this point, we then took the pro ximal end of the Heather limb brought this up and transected it attached it to the falciform ligament using a 2-0 Polysorb tied loosely. We then turned our attention to the stomach. We identified the fat pad overlying the gastroes ophageal junction dissected this out to open that space, taking a few of the short gastric vessels. We then identified a plane at the point where the s econd arterial vessel from the left colic approached the stomach and was ab le to get on that was planned with minimal dissection and then inserted the Co vidien 60 stapling device [facility] Operative Report/Procedure with the black cartridge. Did start the initial transection and creation of the gastric pouch. We had to fire 3 days to yash t this small gastric pouch. We did some further dissection in the retrogastr ic space to free up the attachments to allow for the placement of the an chandana. Once this was done, we then had the anesthesiologist insert the 21 mm O rvil anvil attached to the nasogastric tube until this was abutting the rem nant of the stomach. We then used Harmonic scalpel to create a gastrotomy and pulled the Orvil through. This was done through the lateral left lower dana drant 15 mm port. This was inserted through the transport device and pulled up through. We then cut the stitch, leaving the anvil in place. We then took the 21 mm EEA stapling device, inserted this into the abdomen and remov ed the protective cuff and the pouch using the anvil grasping device attach ed this firmly to the EEA stapler. Closed the EEA stapler and created our 21 mm anastomosis. The EEA stapler was then released. This was placed back into the bag and pulled out and the donuts were identified and both were com plete and intact. In order to get the EEA and the proximal end of our Heather limb was opened with the Harmonic scalpel, thus allowing easy insertion a nd creation of the anastomosis. Once the anastomosis was created, w e then irrigated into the bowel and injected saline and noted that the justin stomosis was not occluded. Following this, we used Harmonic scalpel to divi de the mesentery from the proximal end of our jejunal Heather limb and then u sed the Covidien 60 stapling device with the gold cartridge to transect this portion of the bowel to prevent treating in candy cane effect. This was put into the Endopouch and retrieved. This completed our anastomosis. We th en leveled the patient from the reverse Trendelenburg position instilled nor mal saline. Dr. Cruz went above and did an esophagogastroduodenoscopy , the Heather limb was clamped, there was no anastomotic leaks identified. I the n aspirated out all of the fluid after irrigating. The lateral 12 mm port h ad been replaced by this time. We then aspirated all of the fluid. We the n placed Evicel around the anastomosis. A drain was then placed through the right upper quadrant port and this was passed under the anastomosis and pu lled through and extending through the GE junction. The drain was stitched into place with 2-0 nylon. Following this, we then closed all of our 12 mm port incisions using the neoClose device. Remaining 5 mm ports were then removed. All the skin incisions were closed with running subcuticular tissues and 4-0 Monocryl, followed by [facility]. The patient tolerated the procedure well, was extubated in the operating room and taken to the PACU in stable condition. MD BERNARDO Lui/LAWSON/JYOTI/ACH TD: 12/04/2017 13:37 [facility] Operative Report/Procedure CC:Joe Carvalho MD Electronically Authenticated and Edited by: Joe Carvalho MD On 01/05/2018 11:03 PM CD T 2018-01-05 09:38:29-00:00 [facility] Consultation PATIENT NAME: CARLEE AGUILAR Catherine PHYSICIAN: Eligio Fisher MD Admitted: MR NUMBER: [id number] DISCHARGED: DATE OF CONSULTATION: 12/05/2017 REASON FOR CONSULTATION: Pulmonary evaluation. HISTORY OF PRESENT ILLNESS: This is a 47-year-old female who underwent a gas tric bypass surgery due to morbid obesity, who has complained of shortness of breath. The patient reports left shoulder pain, and shortness of georgi ath when taking deep breaths. PAST MEDICAL HISTORY: As above. ALLERGIES: NO KNOWN DRUG ALLERGIES. MEDICATIONS: As indicated in the MAR. SOCIAL HISTORY: Denies tobacco or alcohol use. FAMILY HISTORY: Noncontributory. REVIEW OF SYSTEMS: As indicated in the history of present illness, otherwise unremarkable. PHYSICAL EXAMINATION: VITAL SIGNS: Temperature is 98.7, respiratory ra te is 14, blood pressure is 110/70, and heart rate is 88. HEENT: Normocephal ic, atraumatic. Pupils are reactive to light. Oropharyngeal mucosa shows no erythema or exudate. NECK: Supple. No JVD. LUNGS: Clear to auscultation. HEART: S1, S2. Regular rate and rhythm. ABDOMEN: Soft. EXTREMITIES: The patient has pitting edema. No c lubbing or cyanosis. NEUROLOGIC: The patient has no motor or sensory deficits. LABORATORY DATA: Reviewed. V/Q scan seems to be low probability f or pulmonary emboli, awaiting for radiology interpretation, and the p atient's venous Doppler of the lower extremity is showing no evidence of de ep venous thrombosis. IMPRESSION: 1. Obstructive sleep apnea. 2. Morbid obesity. 3. Status post gastric bypass surgery. 4. Left shoulder pain. [facility] Consultation PATIENT NAME: STEFANIE AGUILARKIESHA Alexander PHYSICIAN: Eligio Fisher MD Admitted: MR NUMBER: [id number] DISCHARGED: DATE OF CONSULTATION: 12/05/2017 REASON FOR CONSULTATION: Pulmonary evaluation. HISTORY OF PRESENT ILLNESS: This is a 47-year-old female who underwent a gas tric bypass surgery due to morbid obesity, who has complained of shortness of breath. The patient reports left shoulder pain, and shortness of georgi ath when taking deep breaths. PAST MEDICAL HISTORY: As above. ALLERGIES: NO KNOWN DRUG ALLERGIES. MEDICATIONS: As indicated in the MAR. SOCIAL HISTORY: Denies tobacco or alcohol use. FAMILY HISTORY: Noncontributory. REVIEW OF SYSTEMS: As indicated in the history of present illness, otherwise unremarkable. PHYSICAL EXAMINATION: VITAL SIGNS: Temperature is 98.7, respiratory r ate is 14, blood pressure is 110/70, and heart rate is 88. HEENT: Normocephal ic, atraumatic. Pupils are reactive to light. Oropharyngeal mucosa shows no erythema or exudate. NECK: Supple. No JVD. LUNGS: Clear to auscultation. HEART: S1, S2. Regular rate and rhythm. ABDOMEN: Soft. EXTREMITIES: The patient has pitting edema. No clubbing or cyanosis. NEUROLOGIC: The patient has no motor or sensory deficits. LABORATORY DATA: Reviewed. V/Q scan seems to be low probability f or pulmonary emboli, awaiting for radiology interpretation, and [facility] of the lower extremity is showing no evidence of de ep venous thrombosis. IMPRESSION: 1. Obstructive sleep apnea. 2. Morbid obesity. 3. Status post gastric bypass surgery. 4. Left shoulder pain. Patient Name: CARLEE AGUILAR [id number] 5. Shortness of breath, most likely secondary t o surgical procedure and left shoulder pain. PLAN: Continue present treatment. Continue with oxygen to keep saturation above 92 percent. We will follow on V/Q scan results. Eligio Fisher MD JCTomas/HEM TD: 12/05/2017 18:54 Patient Name: CARLEE AGUILAR [id number] 5. Shortness of breath, most likely secondary t o surgical procedure and left shoulder pain. PLAN: Continue present treatment. Continue with oxygen to keep saturation above 92 percent. We will follow on V/Q scan results. Eligio Fisher MD JCB/HEM TD: 12/05/2017 18:54 Electronically Authenticated by: Eligio Fisher MD On 01/05/2018 09:38 AM C DT 2018-01-05 09:37:42-00:00 [facility] Consultation PATIENT NAME: CARLEE AGUILAR PHYSICIAN: Eligio Fisher MD Admitted: MR NUMBER: [id number] DISCHARGED: REASON FOR CONSULTATION: Pulmonary evaluation. HISTORY OF PRESENT ILLNESS: This is a 47-year-old female who has undergone g astric bypass surgery. She also has history of obstructive sleep apnea, who has developed a complaint of left-sided chest pain and/or shoulder pain and s hortness of breath as well. The patient denies any nausea, vomiting, no palp itations. I have been asked to see the patient in consultation for pulmonary evaluation. PAST MEDICAL HISTORY: As above. ALLERGIES: NO KNOWN ALLERGIES. MEDICATIONS: As indicated in the MAR. SOCIAL HISTORY: No tobacco or alcohol use. FAMILY HISTORY: Noncontributory. REVIEW OF SYSTEMS: As indicated in the history of present illness, otherwise unremarkable. PHYSICAL EXAMINATION: VITAL SIGNS: Temperature is 98.5, respiratory ra te 18, blood pressure 140/76, heart rate 74. HEENT: Normocephalic, atraumatic. Pupils are andree ctive to light. Oropharyngeal mucosa shows no erythema or exudat e. NECK: Supple. No JVD. LUNGS: Clear to auscultation. HEART: S1, S2. Regular rate and rhythm. ABDOMEN: Soft. EXTREMITIES: The patient has no pitting edema. LABORATORY DATA: Reviewed. V/Q scan is negative. Venous Doppler i s negative. IMPRESSION AND PLAN: 1. Shortness of breath, most likely secondary to morbid obesity, atelectasis, may be restrictive lung disease bas ed on morbid obesity. 2. Status post gastric bypass surgery. 3. Obstructive sleep apnea. RECOMMENDATIONS: The patient is doing well. Continue present yash darrick, physical therapy, [facility] Consultation PATIENT NAME: CARLEE AGUILAR PHYSICIAN: Eligio Fisher MD Admitted: MR NUMBER: [id number] DISCHARGED: REASON FOR CONSULTATION: Pulmonary evaluation. HISTORY OF PRESENT ILLNESS: This is a 47-year-old female who has undergone g astric bypass surgery. She also has history of obstructive sleep apnea, who has developed a complaint of left-sided chest pain and/or shoulder pain and s hortness of breath as well. The patient denies any nausea, vomiting, no palp itations. I have been asked to see the patient in consultation for pulmonary evaluation. PAST MEDICAL HISTORY: As above. ALLERGIES: NO KNOWN ALLERGIES. MEDICATIONS: As indicated in the MAR. SOCIAL HISTORY: No tobacco or alcohol use. FAMILY HISTORY: Noncontributory. REVIEW OF SYSTEMS: As indicated in the history of present illness, otherwise unremarkable. PHYSICAL EXAMINATION: VITAL SIGNS: Temperature is 98.5, respiratory ra te 18, blood pressure 140/76, heart rate 74. HEENT: Normocephalic, atraumatic. Pupils are andree ctive to light. Oropharyngeal mucosa shows no erythema or exudat e. NECK: Supple. No JVD. LUNGS: Clear to auscultation. HEART: S1, S2. Regular rate and rhythm. ABDOMEN: Soft. EXTREMITIES: The patient has no pitting edema. LABORATORY DATA: Reviewed. V/Q scan is negative. Venous Doppler i s negative. IMPRESSION AND PLAN: 1. Shortness of breath, most likely secondary to morbid obesity, atelectasis, may be restrictive lung disease bas ed on morbid obesity. 2. Status post gastric bypass surgery. 3. Obstructive sleep apnea. RECOMMENDATIONS: The patient is doing well. Continue present yash hollingsworth, physical therapy, Patient Name: CARLEE AGUILAR [id number] BiPAP at bedtime. MD KRYSTIN Blanco/SHANIQUE TD: 12/05/2017 21:57 Patient Name: CARLEE AGUILAR [id number] BiPAP at bedtime. MD CHRISTOPHER Blanco TD: 12/05/2017 21:57 Electronically Authenticated by: Eligio Fisher MD On 01/05/2018 09:37 AM C DT 2018-01-05 08:33:32-00:00 [facility] History and Physical PATIENT NAME: CARLEE AGUILAR PHYSICIAN: Mikala Vickers MD Admitted: MR NUMBER: [id number] DISCHARGED: 12/27/2017 01:0 7:00 ATTENDING PHYSICIAN: Joe Carvalho MD CHIEF COMPLAINT: Abdominal pain. HISTORY OF PRESENT ILLNESS: This is a 47-year-old female with past medical h istory significant for a sleeve gastrectomy performed in November 2017, who comes into the ED with consistent, but stable abdominal pain that is ge neralized. She states that she has had abdominal pain since discharge from the hospital at the beginning of December. Denies any nausea or vomiting. Still p assing gas, having bowel movements, but states that she has pain pretty m uch all over her abdomen. She has called our office a couple of times abou t the abdominal pain and has been worked up for the abdominal pain with imagi ng, but the imaging has not resulted in revealing any new pathology. She com es into the emergency department today just because she feels like the abdominal pain is unbearable and she would like something to help savita that pain. REVIEW OF SYSTEMS: Negative as stated above for nausea, vomiting, f lu, chills, decrease in bowel movements, decrease in gas, any chest pain or shortness of breath. PAST MEDICAL HISTORY: Significant for the sleeve gastrectomy performed in November of this year and obesity. PAST SURGICAL HISTORY: Please see past medical history. FAMILY HISTORY: Noncontributory. SOCIAL HISTORY: Does not smoke, does not drink alcohol, does not do any illicit drugs. REVIEW OF SYSTEMS: Negative except as stated above in history of pr esent illness. PHYSICAL EXAMINATION: VITAL SIGNS: Blood pressure is 134/72 with a pul se of 64, respirations 20, temperature is 99 and her pulse oximetry is 98 p ercent on room air. GENERAL: She is in no acute distress, alert and oriented x3. She does become tearful during our exam. CARDIAC: She is regular rate and rhythm, S1, S2. No murmurs, gallops or rubs. LUNGS: She is clear to auscultation bilaterally. No wheezes, rales or rhonchi. ABDOMEN: Soft, nontender to palpation, nondisten ded; however, she states [facility] History and Physical PATIENT NAME: CARLEE AGUILAR PHYSICIAN: Mikala Vickers MD Admitted: MR NUMBER: [id number] DISCHARGED: 12/27/2017 01:0 7:00 ATTENDING PHYSICIAN: Joe Carvalho MD CHIEF COMPLAINT: Abdominal pain. HISTORY OF PRESENT ILLNESS: This is a 47-year-old female with past medical h istory significant for a sleeve gastrectomy performed in November 2017, who comes into the ED with consistent, but stable abdominal pain that is ge neralized. She states that she has had abdominal pain since discharge from the hospital at the beginning of December. Denies any nausea or vomiting. Still p assing gas, having bowel movements, but states that she has pain pretty m uch all over her abdomen. She has called our office a couple of times abou t the abdominal pain and has been worked up for the abdominal pain with imagi lionel, but the imaging has not resulted in revealing any new pathology. She com es into the emergency department today just because she feels like the abdominal pain is unbearable and she would like something to help savita that pain. REVIEW OF SYSTEMS: Negative as stated above for nausea, vomiting, f lu, chills, decrease in bowel movements, decrease in gas, any chest pain or shortness of breath. PAST MEDICAL HISTORY: Significant for the sleeve gastrectomy performed in November of this year and obesity. PAST SURGICAL HISTORY: Please see past medical history. FAMILY HISTORY: Noncontributory. SOCIAL HISTORY: Does not smoke, does not drink alcohol, does not do any illicit drugs. REVIEW OF SYSTEMS: Negative except as stated above in history of pr esent illness. PHYSICAL EXAMINATION: VITAL SIGNS: Blood pressure is 134/72 with a pul se of 64, respirations 20, temperature is 99 and her pulse oximetry is 98 p ercent on room air. GENERAL: She is in no acute distress, alert and oriented x3. She does become tearful during our exam. CARDIAC: She is regular rate and rhythm, S1, S2. No murmurs, gallops or rubs. LUNGS: She is clear to auscultation bilaterally. No wheezes, rales or rhonchi. ABDOMEN: Soft, nontender to palpation, nondisten ded; however, she states [facility] History and Physical PATIENT NAME: CARLEE AGUILAR PHYSICIAN: Mikala Vickers MD Admitted: MR NUMBER: [id number] DISCHARGED: 12/27/2017 01:0 7:00 ATTENDING PHYSICIAN: Joe Carvalho MD CHIEF COMPLAINT: Abdominal pain. HISTORY OF PRESENT ILLNESS: This is a 47-year-old female with past medical h istory significant for a sleeve gastrectomy performed in November 2017, who comes into the ED with consistent, but stable abdominal pain that is ge neralized. She states that she has had abdominal pain since discharge from the hospital at the beginning of December. Denies any nausea or vomiting. Still p assing gas, having bowel movements, but states that she has pain pretty m uch all over her abdomen. She has called our office a couple of times abou t the abdominal pain and has been worked up for the abdominal pain with bjorn flowers, but the imaging has not resulted in revealing any new pathology. She com es into the emergency department today just because she feels like the abdominal pain is unbearable and she would like something to help savita that pain. REVIEW OF SYSTEMS: Negative as stated above for nausea, vomiting, f lu, chills, decrease in bowel movements, decrease in gas, any chest pain or shortness of breath. PAST MEDICAL HISTORY: Significant for the sleeve gastrectomy performed in November of this year and obesity. PAST SURGICAL HISTORY: Please see past medical history. FAMILY HISTORY: Noncontributory. SOCIAL HISTORY: Does not smoke, does not drink alcohol, does not do any illicit drugs. REVIEW OF SYSTEMS: Negative except as stated above in history of pr esent illness. PHYSICAL EXAMINATION: VITAL SIGNS: Blood pressure is 134/72 with a pul se of 64, respirations 20, temperature is 99 and her pulse oximetry is 98 p ercent on room air. GENERAL: She is in no acute distress, alert and oriented x3. She does become tearful during our exam. CARDIAC: She is regular rate and rhythm, S1, S2. No murmurs, gallops or rubs. LUNGS: She is clear to auscultation bilaterally. No wheezes, rales or rhonchi. ABDOMEN: Soft, nontender to palpation, nondisten ded; however, she states Patient Name: CARLEE AGUILAR [id number] that she is tender, look at around her entire ab domen. EXTREMITIES: Warm and well perfused. LABORATORY DATA: Benign. They are all within normal limits includ ing a CBC and a BMP. ASSESSMENT AND PLAN: This is a 47-year-old female with complaints of generalized abdominal pain. Since our previous workups have all been negativ e, we will admit her to the hospital for observation, seeing as how it is. S he is being admitted early this morning for Dr. Carvalho to come and reassess her. The pain does not seem to be related to her surgery and her physical ex am does not show any or point any signs of any intra-abdominal pathology. We w ill reassess her here in the morning and decide if we need to continue observ ation or discharge her from the hospital. MD Joe Souza MD LNS/TAB//BAL TD: 01/04/2018 11:24 CC:Joe Carvalho MD(esolidar) Patient Name: CARLEE AGUILAR [id number] that she is tender, look at around her entire ab domen. EXTREMITIES: Warm and well perfused. LABORATORY DATA: Benign. They are all within normal limits includ ing a CBC and a BMP. ASSESSMENT AND PLAN: This is a 47-year-old female with complaints of generalized abdominal pain. Since our previous workups have all been negativ e, we will admit her to the hospital for observation, seeing as how it is. S he is being admitted early this morning for Dr. Carvalho to come and reassess her. The pain does not seem to be related to her surgery and her physical ex am does not show any or point any signs of any intra-abdominal pathology. We w ill reassess her here in the morning and decide if we need to continue observ ation or discharge her from the hospital. MD Joe Souza MD LNS/TAB//BAL TD: 01/04/2018 11:24 CC:Joe Carvalho MD(esolidar) Electronically Authenticated by: Mikala Vickers MD On 01/05/2018 08:33 AM CDT Patient Name: CARLEE AGUILAR [id number] that she is tender, look at around her entire ab domen. EXTREMITIES: Warm and well perfused. LABORATORY DATA: Benign. They are all within normal limits includ ing a CBC and a BMP. ASSESSMENT AND PLAN: This is a 47-year-old female with complaints of generalized abdominal pain. Since our previous workups have all been negativ e, we will admit her to the hospital for observation, seeing as how it is. S he is being admitted early this morning for Dr. Carvalho to come and reassess her. The pain does not seem to be related to her surgery and her physical ex am does not show any or point any signs of any intra-abdominal pathology. We w ill reassess her here in the morning and decide if we need to continue observ ation or discharge her from the hospital. MD Joe Souza MD LNS/TAB//BAL TD: 01/04/2018 11:24 CC:Joe Carvalho MD([employer]) Electronically Authenticated by: Mikala Vickers MD On 01/05/2018 08:33 AM CDT Electronically Authenticated by: Joe Carvalho MD On 01/05/2018 11:05 PM CD T 2017-12-29 11:39:38-00:00 [facility] Discharge Summary PATIENT NAME: CARLEE AGUILAR PHYSICIAN: Martin cleary MD Admitted: MR NUMBER: [id number] DISCHARGED: 12/27/2017 01:0 7:00 ATTENDING: Joe Carvalho MD ADMITTING DIAGNOSIS: Abdominal pain. FINAL DIAGNOSIS: Abdominal pain. SECONDARY DIAGNOSES: Include hypertension, diabetes mellitus, obesity , and history of Heather-en-Y gastric bypass. PROCEDURES: None. HOSPITAL COURSE: This is a 47-year-old female with history of int ermittent abdominal pain, presenting with abdominal pain diffuse without s igns of peritonitis. She was treated conservatively with pain medications. He r vital signs were stable. Her bowel function was normal. She was kept for observation. Her symptoms were improved and she was discharged home after making sure she was feeling better and tolerating p.o. intake. SIGNIFICANT LABS AND IMAGING: NA. CONDITION ON DISCHARGE: Good. DISCHARGE MEDICATIONS: Resume prior to admission medications. DIET: Low fat diet. ACTIVITY: As tolerated. WOUND CARE: NA. DISPOSITION: Discharged to home. FOLLOWUP: P.r.n. with Dr. Carvalho. [facility] Discharge Summary PATIENT NAME: CARLEE AGUILAR PHYSICIAN: Martin eldridge MD Admitted: MR NUMBER: [id number] DISCHARGED: 12/27/2017 01:0 7:00 ATTENDING: Joe Carvalho MD ADMITTING DIAGNOSIS: Abdominal pain. FINAL DIAGNOSIS: Abdominal pain. SECONDARY DIAGNOSES: Include hypertension, diabetes mellitus, obesity , and history of Heather-en-Y gastric bypass. PROCEDURES: None. HOSPITAL COURSE: This is a 47-year-old female with history of int ermittent abdominal pain, presenting with abdominal pain diffuse without s igns of peritonitis. She was treated conservatively with pain medications. He r vital signs were stable. Her bowel function was normal. She was kept for observation. Her symptoms were improved and she was discharged home after making sure she was feeling better and tolerating p.o. intake. SIGNIFICANT LABS AND IMAGING: NA. CONDITION ON DISCHARGE: Good. DISCHARGE MEDICATIONS: Resume prior to admission medications. DIET: Low fat diet. ACTIVITY: As tolerated. WOUND CARE: NA. DISPOSITION: Discharged to home. FOLLOWUP: P.r.n. with Dr. Carvalho. Patient Name: CARLEE AGUILAR [id number] MD Joe Clemente MD OAN/JAMES TD: 12/28/2017 00:01 CC:Joe Carvalho Electronically Authenticated by: Martin Lamas MD On 12/29/2017 11:39 AM CDT Patient Name: CARLEE AGUILAR [id number] MD Joe Clemente MD OAN/JAMES TD: 12/28/2017 00:01 CC:Joe Carvalho Electronically Authenticated by: Martin Lamas MD On 12/29/2017 11:39 AM CDT Electronically Authenticated by: Joe Carvalho MD On 01/05/2018 11:04 PM CD T 2017-12-12 12:22:40-00:00 [facility] Discharge Summary PATIENT NAME: CARLEE AGUILAR PHYSICIAN: Mikala Vickers MD Admitted: MR NUMBER: [id number] DISCHARGED: 12/08/2017 11:5 1:00 DATE OF ADMISSION: 12/03/2017 DATE OF DISCHARGE: 12/08/2017 ATTENDING PHYSICIAN: Joe Carvalho MD ADMITTING DIAGNOSIS: Obesity. FINAL DIAGNOSIS: Obesity. PROCEDURE: Laparoscopic gastric bypass performed on 018. HOSPITAL COURSE: This is a 47-year-old female who was admitted to our surgery service after she underwent a laparoscopic gastric bypass. Her hospital course was uncomplicated; however, she then began to compla in about some left shoulder pain. Workup mainly was negative; however, showe d on her CT chest, lower lobe consolidation concerning for pneumonia. She was started on oral antibiotics of Levaquin for a 5-day course along with Diflucan for 5 days as she states she was being treated for a yeast inf ection before her operation. SIGNIFICANT LABS OR IMAGING: None. CONDITION ON DISCHARGE: Good. DISCHARGE MEDICATIONS: She is to take Tramadol 50 every 6 hours p.r.n. as needed for the next 5 days, Diflucan 200 mg 1 tablet p.o. daily for th e next 5 days, and Levaquin 500 every 24 taken for the next 5 days. DIET: Bariatric clear diet. ACTIVITY: As tolerated; however, no heavy lifting, no stre nuous activity. No soaking in a bathtub or in the ocean. WOUND CARE: She is to keep her incision clean, dry and intac t and to alert us if she notice any cellulitic changes or discharge comin g from the wound. [facility] Discharge Summary DISPOSITION: She is to be discharged to home. FOLLOWUP: With Dr. Carvalho in 1 week. MD Joe Souza MD LNS/MBD TD: 12/09/2017 00:41 CC:Joe Carvalho MD Electronically Authenticated by: Mikala Vickers MD On 12/12/2017 12:22 PM CDT Electronically Authenticated and Edited by: Joe Carvalho MD On 01/05/2018 11:04 PM CD T
[2023-01-25] MEDS ORDERED: METOCLOPRAMIDE 10 MG/2mL INJ ONE (01:10)
[2023-01-25] MEDS ORDERED: DIPHENHYDRAMINE 50 MG/ML VIAL ONE (01:10)
[2023-01-25] MEDS ORDERED: LORazepam 2 MG/ML VIAL ONE (01:13)
[2023-01-25 01:42] LABS: Specific Gravity 1.008 (1.005-1.030); Urine Bacteria None Seen /HPF (<20); Urine Bilirubin NEGATIVE (Negative); Urine Blood Negative (Negative); Urine Clarity Clear (Clear); Urine Color Colorless (Yellow); Urine Glucose NEGATIVE (Negative); Urine Protein NEGATIVE (Negative); Urine RBC None Seen /HPF (None Seen); Urine Urobilinogen Normal (Normal); Urine pH 6.5 (5.0-7.0)
[2023-01-25 01:44] LABS: Absolute Lymphocytes (CBC) 1.6 K/uL (0.7-4.9); Hematocrit 34.2 % (36.0-45.0); MCV 81.6 fL (80-100); MPV 9.2 fL (7.6-11.3)
[2023-01-25 01:54] LABS: Albumin 3.8 g/dL (3.4-5.0); Bilirubin Direct 0.1 mg/dL (0-0.2); Bilirubin Indirect, Calculated 0.2 mg/dL (0.2-0.8); Bilirubin Total 0.3 mg/dL (0.2-1.0); Potassium 3.4 mEq/L (3.5-5.1); Protein, Total 7.5 g/dL (6.4-8.2); Troponin High Sensitivity 4.8 pg/mL (<58.9)
--- NOTE | 2023-01-25 04:19 | EDPHYS ---
Physician Documentation [facility] Name: Carlee Aguilar Age: 52 yrs Sex: Female : 1970 Arrival Date: 01/25/2023 Time: 00:31 Bed 2 Private MD: ED Physician Jun German HPI: 01/25 01:40 This 52 yrs old Female presents to ER via EMS with complaints of Chest bs3 discomfort and left arm discomfort as well as nausea. 01:40 52-year-old female history of anxiety, diabetes, bipolar disorder presents with chest bs3 discomfort today, she notes that she had a long stressful day and then had a couple sips of soup and developed nausea and then chest and left arm discomfort she has having this before she was given Zofran by EMS and took Phenergan at home but it did not help he denies any shortness of breath she denies any back pain she denies any numbness tingling or weakness in her extremities it is not ripping or tearing pain. DITCHER: 00:43 LMP N/A - Hysterectomy lg3 Historical: - Allergies: 00:43 Demerol; lg3 00:43 IV contrast; lg3 00:43 Latex, Natural Rubber; lg3 00:43 NSAIDS; lg3 00:43 Sulfa (Sulfonamide Antibiotics); lg3 00:43 Toradol; lg3 - Home Meds: 00:43 levothyroxine 25 mcg tab 1 tab once daily [Active]; lisinopril 20 mg Oral tab 1 tab lg3 once daily [Active]; Protonix 20 mg Oral TbEC 1 tab once daily [Active]; estradiol 1 mg Oral tab 1 tab once daily [Active]; cetirizine 10 mg Oral tab 1 tab once daily [Active]; Phenergan Oral [Active]; Linzess 290 mcg Oral cap 1 cap once daily [Active]; - PMHx: 00:43 Back pain; Bipolar disorder; chronic constipation; Diabetes - NIDDM; High Cholesterol; lg3 Hypertension; Hypothyroidism; Migraines; PERIPHERAL NEUROPATHY; Sleep Apnea; SUICIDE ATTEMPT; Anxiety; insomnia; acid reflux; - PSHx: 00:43 Gastric Bypass; bilateral knee replacements; Cholecystectomy; hysterectomy; lg3 - Immunization history:: Adult Immunizations up to date, Client reports receiving the 2nd dose of the Covid vaccine. - Social history:: Smoking status: Patient denies any tobacco usage or history of. Patient/guardian denies using alcohol, street drugs. ROS: 01:41 Constitutional: Negative for fever, chills bs3 01:41 All other systems are negative. Exam: 01:41 Constitutional: This is a well developed, well nourished patient who is awake, alert, bs3 and in no acute distress. Head/Face: Normocephalic, atraumatic. Eyes: Pupils equal round and reactive to light, extra-ocular motions intact. Lids and lashes normal. ENT: mmm, no posterior phyarngeal erythema Neck: Trachea midline, no thyromegaly, no neck stiffness Chest/axilla: Normal chest wall appearance and motion. Nontender with no deformity. No lesions are appreciated. Cardiovascular: Regular rate and rhythm with a normal S1 and S2. symmetric pulses in upper extremities Respiratory: Lungs have equal breath sounds bilaterally, clear to auscultation, no respiratory distress Abdomen/GI: Soft, non-tender, no rebound or guarding Skin: Warm, dry with normal turgor. Normal color with no rashes, no lesions, and no evidence of cellulitis. MS/ Extremity: Pulses equal, no cyanosis. Neurovascular intact. Full, normal range of motion. Neuro: Awake and alert, GCS 15, oriented to person, place, time, and situation. Cranial nerves II-XII grossly intact. Motor strength 5/5 in all extremities. Sensory grossly intact. Psych: Awake, alert, with orientation to person, place and time. Behavior, mood, and affect are within normal limits. 01:41 EKG is normal sinus rhythm at [address] elevations or depressions QTc is 490 as bs3 interpreted by myself Vital Signs: 00:40 BP 146 / 72; Pulse 88; Resp 18 S; Temp 98.1(O); Pulse Ox 98% on R/A; Weight 102.06 kg lg3 (R); Height 5 ft. 2 in. (R); 02:57 BP 116 / 62; Pulse 65; Resp 15 S; Pulse Ox 97% on R/A; lg3 04:38 BP 124 / 69; Pulse 60; Resp 15 S; Pulse Ox 98% on R/A; jb4 00:40 Body Mass Index 41.15 (102.06 kg, 157.48 cm) lg3 MDM: 00:36 Patient medically screened. bs3 01:41 Differential diagnosis: acute myocardial infarction, acute pericarditis, coronary bs3 artery disease chest wall pain, congestive heart failure gastritis, gastroesophageal reflux disease (GERD). Data reviewed: vital signs, nurses notes. 04:14 ED course: Patient reassessed she is feeling well, trop normal x2, given the atypical bs3 symptoms, ecg and labs, it is not consistent with acs. We discussed whether or not to stay for further workup, pt preferred to go home, advised outpatient f/u giulia. . 01/25 00:37 Order name: Basic Metabolic Panel; Complete Time: 02:16 bs3 01/25 00:37 Order name: CBC with Diff; Complete Time: 02:16 bs3 01/25 00:37 Order name: LFT's; Complete Time: 02:16 bs3 01/25 00:37 Order name: Troponin HS; Complete Time: 02:16 3 01/25 01:16 Order name: Urine W/Microscopic (UAM); Complete Time: 02:16 3 01/25 03:12 Order name: Troponin HS; Complete Time: 04:12 3 01/25 00:37 Order name: XRAY Chest (1 view) bs3 01/25 00:37 Order name: EKG; Complete Time: 00:38 bs3 01/25 00:37 Order name: Cardiac monitoring; Complete Time: 00:54 bs3 01/25 00:37 Order name: EKG - Nurse/Tech; Complete Time: 01:10 bs3 01/25 00:37 Order name: IV Saline Lock; Complete Time: 00:54 bs3 01/25 00:37 Order name: Labs collected and sent; Complete Time: 00:54 bs3 01/25 00:37 Order name: O2 Per Protocol; Complete Time: 00:54 bs3 01/25 00:37 Order name: O2 Sat Monitoring; Complete Time: 00:54 bs3 Administered Medications: 01:17 Drug: Ativan IVP 1 mg Route: IVP; Site: right forearm; lg3 04:38 Follow up: Response: No adverse reaction jb4 01:17 Drug: diphenhydrAMINE IVP 25 mg Route: IVP; Site: right forearm; lg3 04:38 Follow up: Response: No adverse reaction jb4 01:17 Drug: metoCLOPramide IVP 10 mg Route: IVP; Site: right antecubital; lg3 04:37 Follow up: Response: No adverse reaction jb4 Disposition Summary: 01/25/23 04:18 Discharge Ordered Location: Home bs3 Problem: new bs3 Symptoms: have improved bs3 Condition: Stable bs3 Diagnosis - Chest pain, unspecified bs3 Followup: bs3 - With: Private Physician - When: 48 Hours - Reason: Re-evaluation by your physician Followup: bs3 - With: Corey Doshi MD - When: 2 - 3 days - Reason: Continuance of care Discharge Instructions: - Discharge Summary Sheet bs3 - Nonspecific Chest Pain, Adult, [id number] bs3 Forms: - Medication Reconciliation Form bs3 - Thank You Letter bs3 Signatures: Dispatcher [employer] Olesya Walsh RN RN lg3 Jun German MD MD bs3 Saw Rondon RN jb4 Corrections: (The following items were deleted from the chart) 00:48 00:43 PSHx: Left knee replacement; lg3 lg3 01:43 01:40 52-year-old female history of anxiety, diabetes, bipolar disorder presents with bs3 chest discomfort today. bs3 01:44 01:41 Constitutional: This is a well developed, well nourished patient who is awake, bs3 alert, and in no acute distress. Head/Face: Normocephalic, atraumatic. Eyes: Pupils equal round and reactive to light, extra-ocular motions intact. Lids and lashes normal. ENT: mmm, no posterior phyarngeal erythema Neck: Trachea midline, no thyromegaly, no neck stiffness Chest/axilla: Normal chest wall appearance and motion. Nontender with no deformity. No lesions are appreciated. Cardiovascular: Regular rate and rhythm with a normal S1 and S2. symmetric pulses in upper extremities Respiratory: Lungs have equal breath sounds bilaterally, clear to auscultation, no respiratory distress Abdomen/GI: Soft, non-tender, no rebound or guarding Skin: Warm, dry with normal turgor. Normal color with no rashes, no lesions, and no evidence of cellulitis. MS/ Extremity: Pulses equal, no cyanosis. Neurovascular intact. Full, normal range of motion. Neuro: Awake and alert, GCS 15, oriented to person, place, time, and situation. Cranial nerves II-XII grossly intact. Motor strength 5/5 in all extremities. Sensory grossly intact. Psych: Awake, alert, with orientation to person, place and time. Behavior, mood, and affect are within normal limits. bs3
--- NOTE | 2023-01-25 04:19 | ER ---
Nurse's Notes [facility] Name: Carlee Aguilar Age: 52 yrs Sex: Female : 1970 Arrival Date: 01/25/2023 Time: 00:31 Bed 2 Private MD: Diagnosis: Chest pain, unspecified Presentation: 01/25 00:40 Chief complaint: EMS states: weakness, chills, left arm pain and nausea starting around lg3 2300. Coronavirus screen: Client denies travel out of the [place] in the last 14 days. At this time, the client does not indicate any symptoms associated with coronavirus-19. Ebola Screen: No symptoms or risks identified at this time. Initial Sepsis Screen: Does the patient meet any 2 criteria? No. Patient's initial sepsis screen is negative. Does the patient have a suspected source of infection? No. Patient's initial sepsis screen is negative. Risk Assessment: Do you want to hurt yourself or someone else? Patient reports no desire to harm self or others. Onset of symptoms was January 24, 2023. 00:40 Method Of Arrival: EMS: [facility] lg3 00:40 Acuity: JADYN 3 lg3 Triage Assessment: 00:43 General: Appears in no apparent distress. comfortable, Behavior is cooperative, lg3 anxious. Pain: Complains of pain in left arm. EENT: No deficits noted. No signs and/or symptoms were reported regarding the EENT system. Neuro: No deficits noted. Scott Agitation-Sedation Scale (RASS): +1 Restless Level of Consciousness is awake, alert, obeys commands, Oriented to person, place, time, situation. Cardiovascular: No deficits noted. Denies chest pain, shortness of breath, Capillary refill < 3 seconds Clubbing of nail beds is absent JVD is absent Patient's skin is warm and dry. Respiratory: No deficits noted. Airway is patent Trachea midline Respiratory effort is even, unlabored, Respiratory pattern is regular, symmetrical. GI: No deficits noted. Abdomen is round non-distended, obese, Bowel sounds present X 4 quads. Reports nausea. : No deficits noted. No signs and/or symptoms were reported regarding the genitourinary system. Derm: No deficits noted. No signs and/or symptoms reported regarding the dermatologic system. Skin is intact, is healthy with good turgor, Skin is dry, Skin is normal, Skin temperature is warm. Musculoskeletal: No deficits noted. Circulation, motion, and sensation intact. Range of motion: intact in all extremities, Reports generalized weakness. 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: 00:43 LMP N/A - Hysterectomy lg3 Historical: - Allergies: 00:43 Demerol; lg3 00:43 IV contrast; lg3 00:43 Latex, Natural Rubber; lg3 00:43 NSAIDS; lg3 00:43 Sulfa (Sulfonamide Antibiotics); lg3 00:43 Toradol; lg3 - Home Meds: 00:43 levothyroxine 25 mcg tab 1 tab once daily [Active]; lisinopril 20 mg Oral tab 1 tab lg3 once daily [Active]; Protonix 20 mg Oral TbEC 1 tab once daily [Active]; estradiol 1 mg Oral tab 1 tab once daily [Active]; cetirizine 10 mg Oral tab 1 tab once daily [Active]; Phenergan Oral [Active]; Linzess 290 mcg Oral cap 1 cap once daily [Active]; - PMHx: 00:43 Back pain; Bipolar disorder; chronic constipation; Diabetes - NIDDM; High Cholesterol; lg3 Hypertension; Hypothyroidism; Migraines; PERIPHERAL NEUROPATHY; Sleep Apnea; SUICIDE ATTEMPT; Anxiety; insomnia; acid reflux; - PSHx: 00:43 Gastric Bypass; bilateral knee replacements; Cholecystectomy; hysterectomy; lg3 - Immunization history:: Adult Immunizations up to date, Client reports receiving the 2nd dose of the Covid vaccine. - Social history:: Smoking status: Patient denies any tobacco usage or history of. Patient/guardian denies using alcohol, street drugs. Screenin:52 [facility] ED Fall Risk Assessment (Adult) History of falling in the last 3 months, lg3 including since admission No falls in past 3 months (0 pts). Abuse screen: Denies threats or abuse. Denies injuries from another. Nutritional screening: No deficits noted. Tuberculosis screening: No symptoms or risk factors identified. Assessment: 00:51 General: see triage assessment . lg3 02:57 Reassessment: Patient appears in no apparent distress at this time. No changes from lg3 previously documented assessment. Patient and/or family updated on plan of care and expected duration. Pain level reassessed. Patient is alert, oriented x 3, equal unlabored respirations, skin warm/dry/pink. Patient states feeling better. Patient states symptoms have improved. General: pt quietly resting with family at bedside. 04:37 Reassessment: Patient appears in no apparent distress at this time. No changes from jb4 previously documented assessment. Patient and/or family updated on plan of care and expected duration. Pain level reassessed. Patient is alert, oriented x 3, equal unlabored respirations, skin warm/dry/pink. Patient states feeling better. Patient states symptoms have improved. Vital Signs: 00:40 BP 146 / 72; Pulse 88; Resp 18 S; Temp 98.1(O); Pulse Ox 98% on R/A; Weight 102.06 kg lg3 (R); Height 5 ft. 2 in. (R); 02:57 BP 116 / 62; Pulse 65; Resp 15 S; Pulse Ox 97% on R/A; lg3 04:38 BP 124 / 69; Pulse 60; Resp 15 S; Pulse Ox 98% on R/A; jb4 00:40 Body Mass Index 41.15 (102.06 kg, 157.48 cm) lg3 ED Course: 00:35 Patient arrived in ED. bs3 00:36 Olesya Durán, OG is Primary Nurse. lg3 00:36 Jun German MD is Attending Physician. bs3 00:43 Triage completed. lg3 00:43 Arm band placed on right wrist. lg3 00:52 Patient has correct armband on for positive identification. Placed in gown. Bed in low lg3 position. Call light in reach. Side rails up X 1. Client placed on continuous cardiac and pulse oximetry monitoring. NIBP monitoring applied. security monitor on. Door closed. Noise minimized. Warm blanket given. Family accompanied patient. 00:52 Maintain EMS IV. Dressing intact. Good blood return noted. Site clean \T\ dry. Gauge \T\ lg 3 site: 20G RFA. 01:14 XRAY Chest (1 view) In Process Unspecified. EDMS 01:23 Basic Metabolic Panel Sent. as7 01:23 CBC with Diff Sent. as7 01:23 LFT's Sent. as7 01:23 Troponin HS Sent. as7 01:23 Urine W/Microscopic (UAM) Sent. as7 04:18 Corey Doshi MD is Referral Physician. bs3 04:38 No provider procedures requiring assistance completed. IV discontinued, intact, jb4 bleeding controlled, No redness/swelling at site. Pressure dressing applied. Administered Medications: 01:17 Drug: Ativan IVP 1 mg Route: IVP; Site: right forearm; lg3 04:38 Follow up: Response: No adverse reaction jb4 01:17 Drug: diphenhydrAMINE IVP 25 mg Route: IVP; Site: right forearm; lg3 04:38 Follow up: Response: No adverse reaction jb4 01:17 Drug: metoCLOPramide IVP 10 mg Route: IVP; Site: right antecubital; lg3 04:37 Follow up: Response: No adverse reaction jb4 Medication: 04:39 VIS not applicable for this client. jb4 Outcome: 04:18 Discharge ordered by . bs3 04:39 Discharged to home ambulatory, with significant other. jb4 04:39 Condition: stable 04:39 Discharge instructions given to patient, Instructed on discharge instructions, follow up and referral plans. Demonstrated understanding of instructions, follow-up care. 04:39 Patient left the ED. jb4 Signatures: Dispatcher [employer] EDMS Saw Rondon RN RN jb4 Olesya Durán RN RN lg3 Jun German MD MD bs3 Sara Wylie as7 Corrections: (The following items were deleted from the chart) 00:48 00:43 PSHx: Left knee replacement; lg3 lg3
[2023-01-25 04:44] VITALS: TEMP 98.1
[2023-01-25 04:47] VITALS: BP 124/69; O2SAT 98
--- NOTE | 2023-01-25 21:44 | RAD REPORT ---
EXAM DESCRIPTION: RAD - Chest Single View - 01/25/2023 1:12 am CLINICAL HISTORY: The patient is 52 years old and is Female; CHEST PAIN TECHNIQUE: Frontal view of the chest. COMPARISON: No relevant prior studies available. FINDINGS: Lungs: Unremarkable. No consolidation. Pleural space: Unremarkable. No pneumothorax. Heart: Unremarkable. Mediastinum: Unremarkable. Bones/joints: Unremarkable. IMPRESSION: No acute findings in the chest. Electronically signed by: Brandon Avitia MD 01/25/2023 1:36 AM CDT Due to temporary technical issues with the PACS/Fluency reporting system, reports are being signed by the in house radiologists without review as a courtesy to insure prompt reporting. The interpreting radiologist is fully responsible for the content of the report.
--- NOTE | 2023-01-27 15:26 | EKG ---
Test Date: 2023-01-25 Test Time: 01:03:04 Central Control Room Operator: MEASUREMENT RESULTS: Intervals: Rate: 85 HI: 158 QRSD: 106 QT: 412 QTc: 490 [place]: P: 45 HI: 158 QRS: 38 T: 18 INTERPRETIVE STATEMENTS: Normal sinus rhythm Cannot rule out Inferior infarct, age undetermined Abnormal ECG Compared to ECG 09/18/2022 21:02:20 Myocardial infarct finding now present Electronically Signed On 01-27-23 15:22:14 CDT by Robson Charles
== END 2023-01-25 04:39 | disposition home or self-care (01) ==
LOC: ER 00:31
DX: R07.89 Other chest pain (principal); I10 Essential (primary) hypertension; E11.9 Type 2 diabetes mellitus without complications; E78.00 Pure hypercholesterolemia, unspecified; E03.9 Hypothyroidism, unspecified; Z88.2 Allergy status to sulfonamides; Z88.5 Allergy status to narcotic agent; Z88.6 Allergy status to analgesic agent; Z88.8 Allergy status to other drugs, medicaments and biological substances; Z91.040 Latex allergy status; Z91.041 Radiographic dye allergy status; Z91.048 Other nonmedicinal substance allergy status
CPT/HCPCS: 93005; 85025; 81001; 80048; 36415; 80076; 84484 ×2; 71045; J2765; J1200

== ENCOUNTER 2023-01-30 19:42 | Emergency (ER) | payer OTHER ==
--- OUTSIDE RECORDS SUMMARY | 2023-01-30 19:56 | XMS REPORT | Continuity of Care Document ---
:1970 Author Organization [facility] t Address [address] [place] [address] Care Team Providers Name Role Phone Matthew Guardado DO Primary Care Physician [phone] CHASE BOWLES Attending Clinician Unavailable ANA MARIA CASTANON Attending Clinician Unavailable TANI_Nba_Akil Attending Clinician Unavailable JOE PLASCENCIA Attending Clinician Unavailable EDNA REHMAN Attending Clinician Unavailable MARINO YUEN Attending Clinician Unavailable VIDA WICK Attending Clinician Unavailable Brendan ADVERTISING SALES EXECUTIVE, Vida Flores Attending Clinician Holger Becerra MD Attending Clinician Unknown, Attending Attending Clinician Unavailable HOLGER BECERRA Attending Clinician Unavailable , [facility] Infusion Nurse Attending Clinician Unavailable EDITH PONCE Attending Clinician Unavailable Joe Plascencia MD Attending Clinician Doctor Unassigned, [facility] Attending Clinician Unavailable AROLDO PENA Attending Clinician Unavailable CORBY BLACK Attending Clinician Unavailable Corby Black MD Attending Clinician Provider, [facility] Attending Clinician Unavailable JEAN ALMARAZ Attending Clinician Unavailable Erich Byers MD Attending Clinician [phone] [facility] Attending Clinician Unavailable Josefa Suarez Attending Clinician Unavailable Corby Newell MD Attending Clinician NASRA MOLINA Attending Clinician Unavailable Jn EXECUTIVE ADMINISTRATORNasra López Attending Clinician Po, [facility] Attending Clinician Unavailable LION EMERY Attending Clinician Unavailable Lion Mays Attending Clinician Jolene Levine PTA Attending Clinician [...] Unavailable RENE MIGUEL Attending Clinician Unavailable 2, [facility] Attending Clinician Unavailable Jakob Quinn Attending Clinician Carito BLACKMON, Jakob Chambers Attending Clinician [phone] Collin Arndt MD Attending Clinician Alisha BLACKMON, Vipin Soto Attending Clinician Corby Iraheta MD Attending Clinician Peace Hilario DO Attending Clinician ANDREW GASTELUM Attending Clinician Unavailable DAVIAN AYOUB Attending Clinician Unavailable PAULA NUNO Attending Clinician Unavailable JAKOB PARKS Attending Clinician Unavailable TRACEY MAGANA Attending Clinician Unavailable TOM KANH Attending Clinician Unavailable JOLENE LEBRON Attending Clinician [...] Policy Number Effective Date Expiration Date S margarito [facility] [id number] 2015 MEDICAID 00:00:00 [facility] [id number] 2015 OF [place] 00:00:00 Problems Condition Condition Condition Status Onset [...] Added automatic ally from request for surgery [id number] Chronic Chronic Disease Active Univers fatigue fatigue [...] Added automatic ally from request for surgery [id number] Gastroesop Gastroesop Disease Active Overview : Univers hageal hageal 1-21 Formattin ity of reflux reflux 00:00: g of this [place] disease disease 00 note Medical without without might be Branch esophagiti esophagiti different s s from the original. Added automatic ally from request for surgery [id number] Nauseous Nauseous Disease Active Overview: Un juan 1-21 Formattin ity of 00:00: g of this [place] 00 note Medical might be Branch different from the original. Added automatic ally from request for surgery [id number] Intractabl Intractabl Disease Active U nivers e [...] Disease Active Overview : Univers ia ia 3-21 Formattin ity of 00:00: g of this [...] different from the original. ICD10 Diagnosis Term Tuyere Fitter Utility PIERRE PIERRE Disease Active Overview: Univer s (obstructi (obstructi Formattin ity of ve sleep ve sleep g of this Roger as apnea) apnea) note Medical might be Branch different from the original. CPAP at 16 cm H2O GERD GERD Disease Active Univers (gastroeso (gastroeso it y of phageal phageal [place] reflux reflux Medical disease) disease) Branch Hypothyroi Hypothyroi Disease Active U nivers d d ity of [facility] Depression Depression Disease Active U nivers ity of [facility] Asthma Asthma Disease Active Univers ity of [facility] Seasonal Seasonal Disease Active Unive rs allergies allergies ity of [facility] IBS IBS Disease Active Univers (irritable (irritable it y of bowel bowel [place] syndrome) syndrome) [facility] Branch SISI (iron SISI (iron Disease Active Uni vers deficiency deficiency it y of anemia) anemia) [facility] Allergies, Adverse Reactions, Alerts Allergy Allergy Status Severity Reaction(s) Onset Inactive Treating Comm ents Source Name Type Date Date Clinician tramadol DA Active SV RASH, TONGUE HC A AND THROAT 5-13 [place] SWELLING 00:00: Orthope 00 dic Hospita l NSAIDS DA Active [place] had gastric [facility] (Non-Aris bypass 5-13 Clear roidal 00:00: [facility] Active [place] HIVES [facility] (Sulfona 5-13 Clear mide 00:00: [place] Antibiot 00 Regiona ics) [facility] ketorola DA Active SV RASH, HCA c SWELLING OF 5-13 Clear THROAT AND 00:00: [place] TONGUE 00 [facility] Iodinate DA Active SV SHORTNESS OF 2021-0 HC A d BREATH 5-13 Clear Contrast 00:00: [place] Media 00 [facility] Iodinate DA Active SV SHORTNESS OF HC A d BREATH 4-26 Clear Contrast 00:00: [place] Media 00 [facility] Sulfa DA Active MO HIVES [facility]CA (Sulfona 4-26 Clear mide 00:00: [place] Antibiot 00 Regiona ics) [facility] Iodine Drug Active Other (See Fainting[facility] Comments) [facility]-12 [facility] I[facility] "okay w/ Medical Containi 00 benadryl" Cente r ng Products Nitrofur Drug Active Rash [facility] Allergy 02-12 [facility] Monohyd/ 00:[facility]: [facility] Nsaids Drug Active Other (See bariatric [facility] (Non-Aris Allergy Comments) 02-12 pt Jared s roidal 00:00: Medical Anti-Inf 00 Center [...] DA Active U HAD GASTRIC [facility] BYPASS 10-25 [place] SURGERY 00:00: [address] Nsaids Propensi Active Unknown - 2017-09 Not [...] dic Hospita l iodine DA Active SV 2017- [facility] 2-13 Clear 00:00: [place] 00 [facility] Sulfa DA Active MO HIVES 2016- [facility] (Sulfona 3-11 [place] mide 00:00: Orthope Antibiot 00 dic ics) Hospita l [place] DA Active [place] RASH 2016- [facility] c 3-11 [place] 00:00: Orthope 00 dic Hospita l Sulfa DA Active MO 2016-0 [facility] (Sulfona 3-11 Clear mide 00:00: [place] Antibiot 00 Region ics) [facility] Center ket[place]ola DA Active CA 2016- H[facility] c 3-11 Clear 00:00: [place] 00 [facility] Center latex DA Active CA 2017-0 HCA 3-11 Clear 00:00: Duncan 00 [facility] Iodine Propensi Active Methodi ty to 04-25 [...] Stop Date Quantity Comments Source History SDOH [facility] Frequency Hospita l History SDOH [facility] Std Drinks Hospit al History SDOH [facility] Gender identity [facility] Sexual orientation Method ist Hospital Exposure to 2022-11-18 2022-11-28 Not sure University SARS-CoV-2 (event) 00:00:00 10:13:00 [facility] Cigarettes smoked 2022-06-10 2022-06-10 Univers ity of current (pack per 00:00:00 00:00:00 [facility] ) - Reported Branch Cigarette 2022-06-10 2022-06-10 University of pack-years 00:00:00 00:00:00 [facility] Tobacco use and 2022-06-10 2022-06-10 Smokeless Universit y of exposure 00:00:00 00:00:00 tobacco non-user [facility] [place] [facility] dical Branch Alcohol intake 2019-07-13 2019-07-13 Current drinker [facility] 00:00:00 00:00:00 of alcohol [facility] ([facility]) Alcohol Comment 2019-07-04 2019-07-04 socially [facility] 00:00:00 00:00:00 Hospital History [facility] 2019-05-27 2019-05-27 3 University o f Financial 00:00:00 00:00:00 [facility] Branch History [facility] Food 2019-05-27 2019-05-27 2 Univers ity of Worry 00:00:00 00:00:00 [facility] Branch History [facility] Food 2019-05-27 2019-05-27 2 Univers ity of Scarcity 00:00:00 00:00:00 [place] [facility] History [facility] 2019-05-27 2019-05-27 1 University o f Transport Med 00:00:00 00:00:00 [place] [facility] al Branch History [facility] 2019-05-27 2019-05-27 1 University o f Transport Non-Med 00:00:00 00:00:00 [facility] Branch History of Social 2019-04-27 2019-04-[address] 00:00:00 00:00:00 Hospital History of tobacco 2013-05-28 Cigarette Smoker University of use 00:00:00 [facility] Sex Ass[birth year] At [birth year] [facility] 00:00:00 [facility]:00 Hospital Smoking Status Start Date Stop Date Source Former Smoker [facility] Never smoked tobacco [facility] Medications Ordered Filled Start Stop Current Ordering Indication Dosage Frequency Signature Comments Components Source Medication Medication Date Date Medication? Clinician (SIG) Name Name cefTRIAXone 2022- No [id number] 1000mg Univers (ROCEPHIN) 3-18 11-13 ity of injection 19:00: 18:22 [place] 1,000 mg 00 :00 Medical Branch cefTRIAXone 2022- No [id number] 1000mg 1,000 mg, Univers (ROCEPHIN) 11-18 Intramuscu it y of injection 19:00: 18:22 [place], ONCE, [place] 1,000 mg 00 :00 1 dose, On Medic al Mon Branch 11/18/22 at 1400, YURIY
Re ason for Anti-Infec tive: Documented Infection< br>Documen gabriella Infection Site: Urine
D uration of Therapy: Other (see Comments) cefdinir 2022- Yes [id number] 300mg Take 1 Univers 300 mg 11-18 capsule by ity of capsule 00:00: 04:59 mouth [place] 00 :00 every 12 Medical ([facility]) Branch hours for 7 days. phenazopyri 2022- Yes [id number] 200mg Take 2 Univers dine 100 mg 11-18 tablets by i ty of tablet 00:00: 04:59 mouth in [place] 00 :00 the Medical morning Branch and 2 tablets at noon and 2 tablets in the evening. Do all this for 2 days. iron 2022- No [id number] 200mg 200 mg, IV U nivers sucrose 11-14 Infusion, ity of (VENOFER) 16:30: 18:00 ONCE, [place] 200 mg in 00 :00 Administer Medi chika NaCl 0.9% over 2.5 Branch (NS) 100 mL Hours, On infusion Susannah 11/14/22 at 1030, For 1 dose linaCLOtide 0 Yes [id number] 290ug Take 1 Univers (LINZESS) 3-08 capsule by ity of 290 mcg Cap 00:00: mouth [place] 00 the Medical morning. Branch levothyroxi Yes [id number] 25ug Take 1 Univers ne 25 mcg 3-08 tablet by ity o f tablet 00:00: mouth [place] 00 every Medical morning. Branch topiramate 0 Yes [id number] 25mg Take 1 Univers 25 mg 3-08 tablet by ity of tablet 00:00: mouth in [place] 00 the Medical morning Branch and 1 tablet in the evening. lisinopriL 2023-0 Yes [id number] 20mg Take 1 Un juan 20 mg 3-08 tablet by ity of tablet 00:00: mouth in [place] 00 the Medical morning. Branch linaCLOtide 2023-0 Yes [id number] 290ug Take 1 Univers (LINZESS) 3-08 capsule by ity of 290 mcg Cap 00:00: [place] 00 the Medical morning. Branch levothyroxi 2023-0 Yes [id number] 25ug Take 1 Univers ne 25 mcg 3-08 tablet by ity o f tablet 00:00: mouth [place] 00 every Medical morning. Branch topiramate 2023-0 Yes [id number] 25mg Take 1 Univers 25 mg 3-08 tablet by ity of tablet 00:00: mouth in [place] 00 the Medical morning Branch and 1 tablet in the evening. lisinopriL 2023-0 Yes [id number] 20mg Take 1 Un juan 20 mg 3-08 tablet by ity of tablet 00:00: mouth in [place] 00 the Medical morning. Branch linaCLOtide 2023-0 Yes [id number] 290ug Take 1 Univers (LINZESS) 3-08 capsule by ity of 290 mcg Cap 00:00: mouth [place] 00 the Medical morning. Branch levothyroxi 2023-0 Yes [id number] 25ug Take 1 Univers ne 25 mcg 3-08 tablet by ity o f tablet 00:00: mouth [place] 00 every Medical morning. Branch topiramate 3-0 Yes [id number] 25mg Take 1 Univers 25 mg 3-08 tablet by ity of tablet 00:00: mouth in [place] 00 the Medical morning Branch and 1 tablet in the evening. lisinopriL 2023-0 Yes [id number] 20mg Take 1 Un juan 20 mg 3-08 tablet by ity of tablet 00:00: mouth in [place] 00 the Medical morning. Branch linaCLOtide 2023-0 Yes [id number] 290ug Take 1 Univers (LINZESS) 3-08 capsule by ity of 290 mcg Cap 00:00: mouth [place] 00 the Medical morning. Branch levothyroxi 2023-0 Yes [id number] 25ug Take 1 Univers ne 25 mcg 3-08 tablet by ity o f tablet 00:00: mouth [place] 00 every Medical morning. Branch topiramate 2023-0 Yes [id number] 25mg Take 1 Univers 25 mg 3-08 tablet by ity of tablet 00:00: mouth in [place] 00 the Medical morning Branch and 1 tablet in the evening. lisinopriL 2023-0 Yes [id number] 20mg Take 1 Un juan 20 mg 3-08 tablet by ity of tablet 00:00: mouth in [place] 00 the Medical morning. Branch linaCLOtide 2023-0 Yes [id number] 290ug Take 1 Univers (LINZESS) 3-08 capsule by ity of 290 mcg Cap 00:00: mouth [place] 00 the Medical morning. Branch levothyroxi 2023-0 Yes [id number] 25ug Take 1 Univers ne 25 mcg 3-08 tablet by ity o f tablet 00:00: mouth [place] 00 every Medical morning. Branch topiramate 2023-0 Yes [id number] 25mg Take 1 Univers 25 mg 3-08 tablet by ity of tablet 00:00: mouth in [place] the Medical morning Branch and 1 tablet in the evening. lisinopriL 2023-0 Yes [id number] 20mg Take 1 Un juan 20 mg 3-08 tablet by ity of tablet 00:00: mouth in [place] the Medical morning. Branch linaCLOtide 3-0 Yes [id number] 290ug Take 1 Univers (LINZESS) 3-08 capsule by ity of 290 mcg Cap 00:00: mouth [place] the Medical morning. Branch levothyroxi 3-0 Yes [id number] 25ug Take 1 Univers ne 25 mcg 3-08 tablet by ity o f tablet 00:00: mouth [place] 00 every Medical morning. Branch topiramate 2023-0 Yes [id number] 25mg Take 1 Univers 25 mg 3-08 tablet by ity of tablet 00:00: mouth in [place] the Medical morning Branch and 1 tablet in the evening. lisinopriL 2023-0 Yes [id number] 20mg Take 1 Un juan 20 mg 3-08 tablet by ity of tablet 00:00: mouth in [place] 00 the Medical morning. Branch linaCLOtide 2023-0 Yes [id number] 290ug Take 1 Univers (LINZESS) 3-08 capsule by ity of 290 mcg Cap 00:00: mouth [place] 00 the Medical morning. Branch levothyroxi 2023-0 Yes [id number] 25ug Take 1 Univers ne 25 mcg 3-08 tablet by ity o f tablet 00:00: mouth [place] 00 every Medical morning. Branch topiramate 2022-0 Yes [id number] 25mg Take 1 Univers 25 mg 3-08 tablet by ity of tablet 00:00: mouth in [place] 00 the Medical morning Branch and 1 tablet in the evening. lisinopriL 3-0 Yes [id number] 20mg Take 1 Un juan 20 mg 3-08 tablet by ity of tablet 00:00: mouth in [place] 00 the Medical morning. Branch linaCLOtide 3-0 Yes [id number] 290ug Take 1 Univers (LINZESS) 3-08 capsule by ity of 290 mcg Cap 00:00: mouth [place] 00 the Medical morning. Branch levothyroxi 2022-0 Yes [id number] 25ug Take 1 Univers ne 25 mcg 3-08 tablet by ity o f tablet 00:00: mouth [place] 00 every Medical morning. Branch topiramate 2022-0 Yes [id number] 25mg Take 1 Univers 25 mg 3-08 tablet by ity of tablet 00:00: mouth in [place] 00 the Medical morning Branch and 1 tablet in the evening. lisinopriL 2022-0 Yes [id number] 20mg Take 1 Un juan 20 mg 3-08 tablet by ity of tablet 00:00: mouth in [place] 00 the Medical morning. Branch PROMETHAZIN 2022-0 Yes [id number] 25mg TAKE 1 Univers E 25 mg 3-03 TABLET BY ity of tablet 00:00: MOUTH 2 [place] (TWO) Medical TIMES Branch DAILY NEEDED FOR NAUSEA AND VOMITING (N/V). PROMETHAZIN 2022-0 Yes [id number] 25mg TAKE 1 Univers E 25 mg 3-03 TABLET BY ity of tablet 00:00: MOUTH 2 [place] (TWO) Medical TIMES Branch DAILY NEEDED FOR NAUSEA AND VOMITING (N/V). PROMETHAZIN 2023-0 Yes [id number] 25mg TAKE 1 Univers E 25 mg 3-03 TABLET BY ity of tablet 00:00: MOUTH 2 [place] (TWO) Medical TIMES Branch DAILY NEEDED FOR NAUSEA AND VOMITING (N/V). PROMETHAZIN 2023-0 Yes [id number] 25mg TAKE 1 Univers E 25 mg 3-03 TABLET BY ity of tablet 00:00: MOUTH 2 [place] (TWO) Medical TIMES Branch DAILY NEEDED FOR NAUSEA AND VOMITING (N/V). PROMETHAZIN 3-0 Yes [id number] 25mg TAKE 1 Univers E 25 mg 3-03 TABLET BY ity of tablet 00:00: MOUTH 2 [place] (TWO) Medical TIMES Branch DAILY NEEDED FOR NAUSEA AND VOMITING (N/V). PROMETHAZIN 3-0 Yes [id number] 25mg TAKE 1 Univers E 25 mg 3-03 TABLET BY ity of tablet 00:00: MOUTH 2 00 (TWO) Medical TIMES Branch DAILY NEEDED FOR NAUSEA AND VOMITING (N/V). PROMETHAZIN 2022-0 Yes [id number] 25mg TAKE 1 Univers E 25 mg 3-03 TABLET BY ity of tablet 00:00: MOUTH 2 [place] 00 (TWO) Medical TIMES Branch DAILY NEEDED FOR NAUSEA AND VOMITING (N/V). PROMETHAZIN 3-0 Yes [id number] 25mg TAKE 1 Univers E 25 mg 3-03 TABLET BY ity of tablet 00:00: MOUTH 2 (TWO) Medical TIMES Branch DAILY NEEDED FOR NAUSEA AND VOMITING (N/V). PROMETHAZIN 2022-0 Yes [id number] 25mg TAKE 1 Univers E 25 mg 3-03 TABLET BY ity of tablet 00:00: MOUTH 2 [place] (TWO) Medical TIMES Branch DAILY NEEDED FOR NAUSEA AND VOMITING (N/V). PROMETHAZIN 2022-0 Yes [id number] 25mg TAKE 1 Univers E 25 mg 3-03 TABLET BY ity of tablet 00:00: MOUTH 2 [place] (TWO) Medical TIMES Branch DAILY NEEDED FOR NAUSEA AND VOMITING (N/V). iron 2022- No [id number] 200mg 200 mg, IV U nivers sucrose [...] ml over 15-20 min
PANTOPRAZOL 2022-0 Yes [id number] TAKE 1 Univers E 40 mg EC 2-07 TABLET BY ity of tablet 00:00: MOUTH [place] 00 TWICE A Medical DAY Branch LORATADINE 2022-0 Yes [id number] TAKE 1 Univers 10 mg 2-07 TABLET BY ity of tablet 00:00: MOUTH [place] 00 EVERY DAY Medical Branch SERTRALINE 2022-0 Yes [id number] TAKE 1 U nivers 100 mg 2-07 TABLET BY ity of tablet 00:00: MOUTH EVERY DAY Medical Branch PANTOPRAZOL 2022-0 Yes [id number] TAKE 1 Univers E 40 mg EC 2-07 TABLET BY ity of tablet 00:00: MOUTH [place] 00 TWICE A Medical DAY Branch LORATADINE 2022-0 Yes [id number] TAKE 1 Univers 10 mg 2-07 TABLET BY ity of tablet 00:00: MOUTH EVERY DAY Medical Branch SERTRALINE 2022-0 Yes [id number] TAKE 1 U nivers 100 mg 2-07 TABLET BY ity of tablet 00:00: MOUTH EVERY DAY Medical Branch PANTOPRAZOL 2022-0 Yes [id number] TAKE 1 Univers E 40 mg EC 2-07 TABLET BY ity of tablet 00:00: MOUTH 00 TWICE A Medical DAY Branch LORATADINE 2022-0 Yes [id number] TAKE 1 Univers 10 mg 2-07 TABLET BY ity of tablet 00:00: MOUTH 00 EVERY DAY Medical Branch SERTRALINE 2022-0 Yes [id number] TAKE 1 U nivers 100 mg 2-07 TABLET BY ity of tablet 00:00: MOUTH EVERY DAY Medical Branch PANTOPRAZOL 2022-0 Yes [id number] TAKE 1 Univers E 40 mg EC 2-07 TABLET BY ity of tablet 00:00: MOUTH [place] 00 TWICE A Medical DAY Branch LORATADINE 2022-0 Yes [id number] TAKE 1 Univers 10 mg 2-07 TABLET BY ity of tablet 00:00: MOUTH 00 EVERY DAY Medical Branch SERTRALINE 2022-0 Yes [id number] TAKE 1 U nivers 100 mg 2-07 TABLET BY ity of tablet 00:00: MOUTH 00 EVERY DAY Medical Branch PANTOPRAZOL 2022-0 Yes [id number] TAKE 1 Univers E 40 mg EC 2-07 TABLET BY ity of tablet 00:00: MOUTH TWICE A Medical DAY Branch LORATADINE 2023-0 Yes [id number] TAKE 1 Univers 10 mg 2-07 TABLET BY ity of tablet 00:00: MOUTH [place] 00 EVERY DAY Medical Branch SERTRALINE 3-0 Yes [id number] TAKE 1 U nivers 100 mg 2-07 TABLET BY ity of tablet 00:00: MOUTH [place] 00 EVERY DAY Medical Branch PANTOPRAZOL 3-0 Yes [id number] TAKE 1 Univers E 40 mg EC 2-07 TABLET BY ity of tablet 00:00: MOUTH TWICE A Medical DAY Branch LORATADINE 3-0 Yes [id number] TAKE 1 Univers 10 mg 2-07 TABLET BY ity of tablet 00:00: MOUTH [place] 00 EVERY DAY Medical Branch SERTRALINE 2022-0 Yes [id number] TAKE 1 U nivers 100 mg 2-07 TABLET BY ity of tablet 00:00: MOUTH EVERY DAY Medical Branch PANTOPRAZOL 2022-0 Yes [id number] TAKE 1 Univers E 40 mg EC 2-07 TABLET BY ity of tablet 00:00: MOUTH TWICE A Medical DAY Branch LORATADINE 2022-0 Yes [id number] TAKE 1 Univers 10 mg 2-07 TABLET BY ity of tablet 00:00: MOUTH 00 EVERY DAY Medical Branch SERTRALINE 2022-0 Yes [id number] TAKE 1 U nivers 100 mg 2-07 TABLET BY ity of tablet 00:00: MOUTH EVERY DAY Medical Branch PANTOPRAZOL 2022-0 Yes [id number] TAKE 1 Univers E 40 mg EC 2-07 TABLET BY ity of tablet 00:00: MOUTH TWICE A Medical DAY Branch LORATADINE 2022-0 Yes [id number] TAKE 1 Univers 10 mg 2-07 TABLET BY ity of tablet 00:00: MOUTH 00 EVERY DAY Medical Branch SERTRALINE 3-0 Yes [id number] TAKE 1 U nivers 100 mg 2-07 TABLET BY ity of tablet 00:00: MOUTH EVERY DAY Medical Branch PANTOPRAZOL 3-0 Yes [id number] TAKE 1 Univers E 40 mg EC 2-07 TABLET BY ity of tablet 00:00: MOUTH 00 TWICE A Medical DAY Branch LORATADINE 3-0 Yes [id number] TAKE 1 Univers 10 mg 2-07 TABLET BY ity of tablet 00:00: MOUTH EVERY DAY Medical Branch SERTRALINE 2022-0 Yes [id number] TAKE 1 U nivers 100 mg 2-07 TABLET BY ity of tablet 00:00: MOUTH EVERY DAY Medical Branch PANTOPRAZOL 2022-0 Yes [id number] TAKE 1 Univers E 40 mg EC 2-07 TABLET BY ity of tablet 00:00: MOUTH TWICE A Medical DAY Branch LORATADINE 2022-0 Yes [id number] TAKE 1 Univers 10 mg 2-07 TABLET BY ity of tablet 00:00: MOUTH EVERY DAY Medical Branch SERTRALINE 2022-0 Yes [id number] TAKE 1 U nivers 100 mg 2-07 TABLET BY ity of tablet 00:00: MOUTH EVERY DAY Medical Branch PANTOPRAZOL 2022-0 Yes [id number] TAKE 1 Univers E 40 mg EC 2-07 TABLET BY ity of tablet 00:00: MOUTH TWICE A Medical DAY Branch LORATADINE 2022-0 Yes [id number] TAKE 1 Univers 10 mg 2-07 TABLET BY ity of tablet 00:00: MOUTH EVERY DAY Medical Branch SERTRALINE 2022-0 Yes [id number] TAKE 1 U nivers 100 mg 2-07 TABLET BY ity of tablet 00:00: MOUTH EVERY DAY Medical Branch PANTOPRAZOL 2022-0 Yes [id number] TAKE 1 Univers E 40 mg EC 2-07 TABLET BY ity of tablet 00:00: MOUTH TWICE A Medical DAY Branch LORATADINE 2022-0 Yes [id number] TAKE 1 Univers 10 mg 2-07 TABLET BY ity of tablet 00:00: MOUTH EVERY DAY Medical Branch SERTRALINE 2022-0 Yes [id number] TAKE 1 U nivers 100 mg 2-07 TABLET BY ity of tablet 00:00: MOUTH EVERY DAY Medical Branch PANTOPRAZOL 3-0 Yes [id number] TAKE 1 Univers E 40 mg EC 2-07 TABLET BY ity of tablet 00:00: MOUTH TWICE A Medical DAY Branch LORATADINE 2022-0 Yes [id number] TAKE 1 Univers 10 mg 2-07 TABLET BY ity of tablet 00:00: MOUTH EVERY DAY Medical Branch SERTRALINE 2022-0 Yes [id number] TAKE 1 U nivers 100 mg 2-07 TABLET BY ity of tablet 00:00: MOUTH EVERY DAY Medical Branch PANTOPRAZOL 2022-0 Yes [id number] TAKE 1 Univers E 40 mg EC 2-07 TABLET BY ity of tablet 00:00: MOUTH TWICE A Medical DAY Branch LORATADINE Yes [id number] TAKE 1 Univers 10 mg 2-07 TABLET BY ity of tablet 00:00: MOUTH [place] EVERY DAY Medical Branch SERTRALINE Yes [id number] TAKE 1 U nivers 100 mg 2-07 TABLET BY ity of tablet 00:00: MOUTH [place] EVERY DAY Medical Branch PANTOPRAZOL Yes [id number] TAKE 1 Univers E 40 mg EC 2-07 TABLET BY ity of tablet 00:00: MOUTH [place] 00 TWICE A Medical DAY Branch LORATADINE Yes [id number] TAKE 1 Univers 10 mg 2-07 TABLET BY ity of tablet 00:00: MOUTH [place] EVERY DAY Medical Branch SERTRALINE Yes [id number] TAKE 1 U nivers 100 mg 2-07 TABLET BY ity of tablet 00:00: MOUTH [place] EVERY DAY Medical Branch ondansetron 2022- No 4mg 4 mg, Slow Univers (ZOFRAN 10-10 IV Push, ity of (PF)) 23:15: 22:43 ONCE, 1 [place] injection 4 00 :00 dose, On Medi chika mg [facility] 10/10/22 Branch at 1715, YURIY morpHINE (4 No 4mg 4 mg, Slow Univers mg/mL) 10-10 IV Push, ity of injection 4 23:15: 22:43 ONCE, 1 [place] mg 00 :00 dose, On Medical [facility] 10/10/22 Branch at 1715, YURIY acetaminoph 2022- No 650mg 650 mg, U nivers en 10-10 Oral, ity of (TYLENOL) 23:15: 22:43 ONCE, 1 [place] tablet 650 00 :00 dose, On Medic al mg [facility] 10/10/22 Branch at 1715, YURIY LACTULOSE 2021-09 Yes [id number] 15mL TAKE 15 ML Univers 10 gram/15 09-29 BY MOUTH 2 ity of mL solution 00:00: (TWO) [place] 00 TIMES Medical DAILY Branch NEEDED FOR CONSTIPATI ON. LACTULOSE 2021-09 Yes [id number] 15mL TAKE 15 ML Univers 10 gram/15 1-22 BY MOUTH 2 ity of mL solution 00:00: (TWO) [place] 00 TIMES Medical DAILY Branch NEEDED FOR CONSTIPATI ON. LACTULOSE 2021-09 Yes [id number] 15mL TAKE 15 ML Univers 10 gram/15 1-22 BY MOUTH 2 ity of mL solution 00:00: (TWO) [place] 00 TIMES Medical DAILY Branch NEEDED FOR CONSTIPATI ON. LACTULOSE 2021-09 Yes [id number] 15mL TAKE 15 ML Univers 10 gram/15 1-22 BY MOUTH 2 ity of mL solution 00:00: (TWO) [place] 00 TIMES Medical DAILY Branch NEEDED FOR CONSTIPATI ON. LACTULOSE 2021-09 Yes [id number] 15mL TAKE 15 ML Univers 10 gram/15 1-22 BY MOUTH 2 ity of mL solution 00:00: (TWO) [place] 00 TIMES Medical DAILY Branch NEEDED FOR CONSTIPATI ON. LACTULOSE 2021-09 Yes [id number] 15mL TAKE 15 ML [facility] 10 gram/15 1-22 BY MOUTH 2 ity of mL solution 00:00: (TWO) [place] 00 TIMES Medical DAILY Branch NEEDED FOR CONSTIPATI ON. LACTULOSE 2021-09 Yes [id number] 15mL TAKE 15 ML [facility] 10 gram/15 1-22 BY MOUTH 2 ity of mL solution 00:00: (TWO) [place] 00 TIMES Medical DAILY Branch NEEDED FOR CONSTIPATI ON. LACTULOSE 2021-09 Yes [id number] 15mL TAKE 15 ML [facility] 10 gram/15 1-22 BY MOUTH 2 ity of mL solution 00:00: (TWO) [place] 00 TIMES Medical DAILY Branch NEEDED FOR CONSTIPATI ON. LACTULOSE 2021-09 Yes [id number] 15mL TAKE 15 ML [facility] 10 gram/15 1-22 BY MOUTH 2 ity of mL solution 00:00: (TWO) [place] 00 TIMES Medical DAILY Branch NEEDED FOR CONSTIPATI ON. LACTULOSE 2021-09 Yes [id number] 15mL TAKE 15 ML [facility] 10 gram/15 1-22 BY MOUTH 2 ity of mL solution 00:00: (TWO) [place] 00 TIMES Medical DAILY Branch NEEDED FOR CONSTIPATI ON. LACTULOSE 2021-09 Yes [id number] 15mL TAKE 15 ML [facility] 10 gram/15 1-22 BY MOUTH 2 ity of mL solution 00:00: (TWO) [place] 00 TIMES Medical DAILY Branch NEEDED FOR CONSTIPATI ON. LACTULOSE 2021-09 Yes [id number] 15mL TAKE 15 ML [facility] 10 gram/15 1-22 BY MOUTH 2 ity of mL solution 00:00: (TWO) [place] 00 TIMES Medical DAILY Branch NEEDED FOR CONSTIPATI ON. LACTULOSE 2021-09 Yes [id number] 15mL TAKE 15 ML [facility] 10 gram/15 1-22 BY MOUTH 2 ity of mL solution 00:00: (TWO) [place] 00 TIMES Medical DAILY Branch NEEDED FOR CONSTIPATI ON. LACTULOSE 2021-09 Yes [id number] 15mL TAKE 15 ML [facility] 10 gram/15 1-22 BY MOUTH 2 ity of mL solution 00:00: (TWO) [place] 00 TIMES Medical DAILY Branch NEEDED FOR CONSTIPATI ON. LACTULOSE 2021-09 Yes [id number] 15mL TAKE 15 ML [facility] 10 gram/15 1-22 BY MOUTH 2 ity of mL solution 00:00: (TWO) [place] 00 TIMES Medical DAILY Branch NEEDED FOR CONSTIPATI ON. LACTULOSE 2021-09 Yes [id number] 15mL TAKE 15 ML [facility] 10 gram/15 1-22 BY MOUTH 2 ity of mL solution 00:00: (TWO) [place] 00 TIMES Medical DAILY Branch NEEDED FOR CONSTIPATI ON. LACTULOSE 2021-09 Yes [id number] 15mL TAKE 15 ML [facility] 10 gram/15 1-22 BY MOUTH 2 ity of mL solution 00:00: (TWO) [place] 00 TIMES Medical DAILY Branch NEEDED FOR CONSTIPATI ON. LACTULOSE 2021-09 Yes [id number] 15mL TAKE 15 ML [facility] 10 gram/15 1-22 BY MOUTH 2 ity of mL solution 00:00: (TWO) [place] 00 TIMES Medical DAILY Branch NEEDED FOR CONSTIPATI ON. LACTULOSE 2021-09 Yes [id number] 15mL TAKE 15 ML [facility] 10 gram/15 1-22 BY MOUTH 2 ity of mL solution 00:00: (TWO) [place] 00 TIMES Medical DAILY Branch NEEDED FOR CONSTIPATI ON. LACTULOSE 2021- Yes [id number] 15mL TAKE 15 ML [facility] 10 gram/15 1-22 BY MOUTH 2 ity of mL solution 00:00: (TWO) [place] 00 TIMES Medical DAILY Branch NEEDED FOR CONSTIPATI ON. LACTULOSE 2021- Yes [id number] 15mL TAKE 15 ML [facility] 10 gram/15 1-22 BY MOUTH 2 ity of mL solution 00:00: (TWO) [place] 00 TIMES Medical DAILY Branch NEEDED FOR CONSTIPATI ON. LACTULOSE 2021-09 Yes [id number] 15mL TAKE 15 ML [facility] 10 gram/15 1-22 BY MOUTH 2 ity of mL solution 00:00: (TWO) [place] 00 TIMES Medical DAILY Branch NEEDED FOR CONSTIPATI ON. LACTULOSE 2021-09 Yes [id number] 15mL TAKE 15 ML [facility] 10 gram/15 1-22 BY MOUTH 2 ity of mL solution 00:00: (TWO) [place] 00 TIMES Medical DAILY Branch NEEDED FOR CONSTIPATI ON. LACTULOSE 2021-09 Yes [id number] 15mL TAKE 15 ML [facility] 10 gram/15 1-22 BY MOUTH 2 ity of mL solution 00:00: (TWO) [place] 00 TIMES Medical DAILY Branch NEEDED FOR CONSTIPATI ON. LACTULOSE 2021-09 Yes [id number] 15mL TAKE 15 ML [facility] 10 gram/15 1-22 BY MOUTH 2 ity of mL solution 00:00: (TWO) [place] 00 TIMES Medical DAILY Branch NEEDED FOR CONSTIPATI ON. LACTULOSE 2021-09 Yes [id number] 15mL TAKE 15 ML [facility] 10 gram/15 1-22 BY MOUTH 2 ity of mL solution 00:00: (TWO) [place] 00 TIMES Medical DAILY Branch NEEDED FOR CONSTIPATI ON. LACTULOSE 2021-09 Yes [id number] 15mL TAKE 15 ML [facility] 10 gram/15 1-22 BY MOUTH 2 ity of mL solution 00:00: (TWO) [place] 00 TIMES Medical DAILY Branch NEEDED FOR CONSTIPATI ON. LINZESS 290 2021-09 Yes TAKE 1 [facility] ers mcg Cap 0-14 CAPSULE BY ity of 00:00: [facility] EVERY DAY Medical Branch LINZESS 290 2021-09 Yes TAKE 1 [facility] ers mcg Cap 0-14 CAPSULE BY ity of 00:00: [facility] EVERY DAY Medical Branch LINZESS 290 2021-09 Yes TAKE 1 [facility] ers mcg Cap 0-14 CAPSULE BY ity of 00:00: [facility] EVERY DAY Medical Branch LINZESS 290 2021- Yes TAKE 1 [facility] ers mcg Cap 0-14 CAPSULE BY ity of 00:00: [facility] EVERY DAY Medical Branch LINZESS 290 2021-09 Yes TAKE 1 [facility] ers mcg Cap 0-14 CAPSULE BY ity of 00:00: [facility] EVERY DAY Medical Branch LINZESS 290 2021-09 Yes TAKE 1 [facility] ers mcg Cap 0-14 CAPSULE BY ity of 00:00: MOUTH [place] 00 EVERY DAY Medical Branch LINZESS 290 2021-09 Yes TAKE 1 [facility] ers mcg Cap 0-14 CAPSULE BY ity of 00:00: MOUTH [place] 00 EVERY DAY Medical Branch LINZESS 290 2021-09 Yes TAKE 1 [facility] ers mcg Cap 0-14 CAPSULE BY ity of 00:00: MOUTH [place] EVERY DAY Medical Branch LINZESS 290 2021-09 Yes TAKE 1 [facility] ers mcg Cap 0-14 CAPSULE BY ity of 00:00: MOUTH [place] EVERY DAY Medical Branch LINZESS 290 2021-09 Yes TAKE 1 [facility] ers mcg Cap 0-14 CAPSULE BY ity of 00:00: MOUTH [place] EVERY DAY Medical Branch LINZESS 290 2021-09 Yes TAKE 1 [facility] ers mcg Cap 0-14 CAPSULE BY ity of 00:00: MOUTH [place] EVERY DAY Medical Branch LINZESS 290 2021-09 Yes TAKE 1 [facility] ers mcg Cap 0-14 CAPSULE BY ity of 00:00: [facility] EVERY DAY Medical Branch LINZESS 290 2021-09 Yes TAKE 1 [facility] ers mcg Cap 0-14 CAPSULE BY ity of 00:00: MOUTH [place] 00 EVERY DAY Medical Branch LINZESS 290 2021-09 Yes TAKE 1 [facility] ers mcg Cap 0-14 CAPSULE BY ity of 00:00: MOUTH [place] 00 EVERY DAY Medical Branch LINZESS 290 2021-09 Yes TAKE 1 [facility] ers mcg Cap 0-14 CAPSULE BY ity of 00:00: [facility] 00 EVERY DAY Medical Branch LINZESS 290 2021-09 Yes TAKE 1 [facility] ers mcg Cap 0-14 CAPSULE BY ity of 00:00: [facility] EVERY DAY Medical Branch LINZESS 290 2021-09 Yes TAKE 1 [facility] ers mcg Cap 0-14 CAPSULE BY ity of 00:00: MOUTH [place] 00 EVERY DAY Medical Branch LINZESS 290 2021-09 Yes TAKE 1 [facility] ers mcg Cap 0-14 CAPSULE BY ity of 00:00: MOUTH [place] 00 EVERY DAY Medical Branch LINZESS 290 2021-09 Yes TAKE 1 [facility] ers mcg Cap 0-14 CAPSULE BY ity of 00:00: MOUTH [place] 00 EVERY DAY Medical Branch LINZESS 290 2021-09 Yes TAKE 1 [facility] ers mcg Cap 0-14 CAPSULE BY ity of 00:00: MOUTH [place] EVERY DAY Medical Branch LINZESS 290 2021-09 [...] EVERY DAY Medical Branch cephALEXin 2021-09- No [id number] 500mg Take 1 [facility] (KEFLEX) 0-03 10-09 capsule by ity of 500 mg 00:00: 04:59 mouth in [place] capsule 00 :00 the Medical morning Branch and 1 capsule at noon and 1 capsule in the evening. Do all this for 5 days. ferrous Yes [id number] 324mg Take 1 [facility] gluconate 9-14 tablet by ity o f 324 mg 00:00: mouth in [place] (37.5 mg 00 the Medical iron) morning Branch tablet and 1 tablet in the evening. ferrous 0 Yes [id number] 324mg Take 1 [facility] gluconate 9-14 tablet by ity o f 324 mg 00:00: mouth in [place] (37.5 mg 00 the Medical iron) morning Branch tablet and 1 tablet in the evening. ferrous 0 Yes [id number] 324mg Take 1 [facility] gluconate 9-14 tablet by ity o f 324 mg 00:00: mouth in [place] (37.5 mg 00 the Medical iron) morning Branch tablet and 1 tablet in the evening. ferrous 0 Yes [id number] 324mg Take 1 [facility] gluconate 9-14 tablet by ity o f 324 mg 00:00: mouth in [place] (37.5 mg 00 the Medical iron) morning Branch tablet and 1 tablet in the evening. ferrous 0 Yes [id number] 324mg Take 1 [facility] gluconate 9-14 tablet by ity o f 324 mg 00:00: mouth in [place] (37.5 mg 00 the Medical iron) morning Branch tablet and 1 tablet in the evening. ferrous 0 Yes [id number] 324mg Take 1 [facility] gluconate 9-14 tablet by ity o f 324 mg 00:00: mouth in [place] (37.5 mg 00 the Medical iron) morning Branch tablet and 1 tablet in the evening. ferrous Yes [id number] 324mg Take 1 [facility] gluconate 9-14 tablet by ity o f 324 mg 00:00: mouth in [place] (37.5 mg 00 the Medical iron) morning Branch tablet and 1 tablet in the evening. ferrous 2022- No [id number] 324mg Take 1 U nivers gluconate 9-14 01-25 tablet by ity of 324 mg 00:00: 00:00 mouth in [place] (37.5 mg 00 :00 the Medical iron) morning Branch tablet and 1 tablet in the evening. ferrous 2022- No [id number] 324mg Take 1 U nivers gluconate 9-14 -25 tablet by ity of 324 mg 00:00: 00:00 mouth in [place] (37.5 mg 00 :00 the Medical iron) morning Branch tablet and 1 tablet in the evening. ferrous 2022- No [id number] 324mg Take 1 U nivers gluconate 9-14 -25 tablet by ity of 324 mg 00:00: 00:00 mouth in [place] (37.5 mg 00 :00 the Medical iron) morning Branch tablet and 1 tablet in the evening. TOPIRAMATE Yes [id number] TAKE 1 [facility] 50 mg 8-30 TABLET BY ity of tablet 00:00: MOUTH [place] 00 TWICE A Medical DAY Branch LEVOTHYROXI 2021-0 Yes [id number] TAKE 1 [facility] NE 25 mcg 8-30 TABLET BY ity o f tablet 00:00: MOUTH [place] 00 EVERY DAY Medical IN THE Branch MORNING TOPIRAMATE 2021-0 Yes [id number] TAKE 1 [facility] 50 mg 8-30 TABLET BY ity of tablet 00:00: MOUTH [place] 00 TWICE A Medical DAY Branch LEVOTHYROXI 2021-0 Yes [id number] TAKE 1 [facility] NE 25 mcg 8-30 TABLET BY ity o f tablet 00:00: MOUTH [place] 00 EVERY DAY Medical IN THE Branch MORNING TOPIRAMATE 2021-0 Yes [id number] TAKE 1 [facility] 50 mg 8-30 TABLET BY ity of tablet 00:00: MOUTH [place] 00 TWICE A Medical DAY Branch LEVOTHYROXI 2022-0 Yes [id number] TAKE 1 [facility] NE 25 mcg 8-30 TABLET BY ity o f tablet 00:00: MOUTH [place] 00 EVERY DAY Medical IN THE [place] MORNING TOPIRAMATE Yes [id number] TAKE 1 [facility] 50 mg 8-30 TABLET BY ity of tablet 00:00: MOUTH 00 TWICE A Medical DAY [place] LEVOTHYROXI 2021-0 Yes [id number] TAKE 1 [facility] NE 25 mcg 8-30 TABLET BY ity o f tablet 00:00: MOUTH 00 EVERY DAY Medical IN THE [place] MORNING TOPIRAMATE Yes [id number] TAKE 1 [facility] 50 mg 8-30 TABLET BY ity of tablet 00:00: MOUTH 00 TWICE A Medical DAY [place] LEVOTHYROXI Yes [id number] TAKE 1 [facility] NE 25 mcg 8-30 TABLET BY ity o f tablet 00:00: MOUTH 00 EVERY DAY Medical IN THE [place] MORNING TOPIRAMATE Yes [id number] TAKE 1 [facility] 50 mg 8-30 TABLET BY ity of tablet 00:00: MOUTH 00 TWICE A Medical DAY [place] LEVOTHYROXI 2021-0 Yes [id number] TAKE 1 [facility] NE 25 mcg 8-30 TABLET BY ity o f tablet 00:00: MOUTH 00 EVERY DAY Medical IN THE [place] MORNING TOPIRAMATE Yes [id number] TAKE 1 [facility] 50 mg 8-30 TABLET BY ity of tablet 00:00: MOUTH 00 TWICE A Medical DAY [place] LEVOTHYROXI 2021-0 Yes [id number] TAKE 1 [facility] NE 25 mcg 8-30 TABLET BY ity o f tablet 00:00: MOUTH 00 EVERY DAY Medical IN THE [place] MORNING TOPIRAMATE 2021-0 Yes [id number] TAKE 1 [facility] 50 mg 8-30 TABLET BY ity of tablet 00:00: MOUTH 00 TWICE A Medical DAY [place] LEVOTHYROXI 2021-0 Yes [id number] TAKE 1 [facility] NE 25 mcg 8-30 TABLET BY ity o f tablet 00:00: MOUTH 00 EVERY DAY Medical IN THE [place] MORNING TOPIRAMATE 0 Yes [id number] TAKE 1 [facility] 50 mg 8-30 TABLET BY ity of tablet 00:00: MOUTH 00 TWICE A Medical DAY [place] LEVOTHYROXI 2021-0 Yes [id number] TAKE 1 [facility] NE 25 mcg 8-30 TABLET BY ity o f tablet 00:00: MOUTH [place] 00 EVERY DAY Medical IN THE [place] MORNING TOPIRAMATE Yes [id number] TAKE 1 [facility] 50 mg 8-30 TABLET BY ity of tablet 00:00: MOUTH 00 TWICE A Medical DAY [place] LEVOTHYROXI 2021-0 Yes [id number] TAKE 1 [facility] NE 25 mcg 8-30 TABLET BY ity o f tablet 00:00: MOUTH 00 EVERY DAY Medical IN THE [place] MORNING TOPIRAMATE 2021-0 Yes [id number] TAKE 1 [facility] 50 mg 8-30 TABLET BY ity of tablet 00:00: MOUTH 00 TWICE A Medical DAY [place] LEVOTHYROXI 2021-0 Yes [id number] TAKE 1 [facility] NE 25 mcg 8-30 TABLET BY ity o f tablet 00:00: MOUTH 00 EVERY DAY Medical IN THE [place] MORNING TOPIRAMATE 2021- Yes [id number] TAKE 1 [facility] 50 mg 8-30 TABLET BY ity of tablet 00:00: MOUTH TWICE A Medical DAY [place] LEVOTHYROXI 2021-0 Yes [id number] TAKE 1 [facility] 25 mcg 8-30 TABLET BY ity o f tablet 00:00: MOUTH 00 EVERY DAY Medical IN THE [place] MORNING TOPIRAMATE 2021- Yes [id number] TAKE 1 [facility] 50 mg 8-30 TABLET BY ity of tablet 00:00: MOUTH 00 TWICE A Medical DAY [place] LEVOTHYROXI 2021-0 Yes [id number] TAKE 1 [facility] 25 mcg 8-30 TABLET BY ity o f tablet 00:00: MOUTH 00 EVERY DAY Medical IN THE [place] MORNING TOPIRAMATE 2021-0 Yes [id number] TAKE 1 [facility] 50 mg 8-30 TABLET BY ity of tablet 00:00: MOUTH 00 TWICE A Medical DAY [place] LEVOTHYROXI 2021-0 Yes [id number] TAKE 1 [facility] NE 25 mcg 8-30 TABLET BY ity o f tablet 00:00: MOUTH 00 EVERY DAY Medical IN THE [place] MORNING TOPIRAMATE 2021-0 Yes [id number] TAKE 1 [facility] 50 mg 8-30 TABLET BY ity of tablet 00:00: MOUTH 00 TWICE A Medical DAY [place] LEVOTHYROXI 2021-0 Yes [id number] TAKE 1 [facility] 25 mcg 8-30 TABLET BY ity o f tablet 00:00: MOUTH 00 EVERY DAY Medical IN THE [place] MORNING TOPIRAMATE 2021-0 Yes [id number] TAKE 1 [facility] 50 mg 8-30 TABLET BY ity of tablet 00:00: MOUTH [place] 00 TWICE A Medical DAY [place] LEVOTHYROXI 2021-0 Yes [id number] TAKE 1 [facility] 25 mcg 8-30 TABLET BY ity o f tablet 00:00: MOUTH [place] 00 EVERY DAY Medical IN THE [place] MORNING TOPIRAMATE 2021-0 Yes [id number] TAKE 1 [facility] 50 mg 8-30 TABLET BY ity of tablet 00:00: MOUTH 00 TWICE A Medical DAY [place] LEVOTHYROXI 2021-0 Yes [id number] TAKE 1 [facility] NE 25 mcg 8-30 TABLET BY ity o f tablet 00:00: MOUTH 00 EVERY DAY Medical IN THE [place] MORNING TOPIRAMATE 2021-0 Yes [id number] TAKE 1 [facility] 50 mg 8-30 TABLET BY ity of tablet 00:00: MOUTH 00 TWICE A Medical DAY [place] LEVOTHYROXI 2021-0 Yes [id number] TAKE 1 [facility] 25 mcg 8-30 TABLET BY ity o f tablet 00:00: MOUTH 00 EVERY DAY Medical IN THE [place] MORNING TOPIRAMATE 2021-0 Yes [id number] TAKE 1 [facility] 50 mg 8-30 TABLET BY ity of tablet 00:00: MOUTH 00 TWICE A Medical DAY [place] LEVOTHYROXI 2021-0 Yes [id number] TAKE 1 [facility] 25 mcg 8-30 TABLET BY ity o f tablet 00:00: MOUTH 00 EVERY DAY Medical IN THE [place] MORNING TOPIRAMATE 2021-0 Yes [id number] TAKE 1 [facility] 50 mg 8-30 TABLET BY ity of tablet 00:00: MOUTH 00 TWICE A Medical DAY [place] LEVOTHYROXI 2021-0 Yes [id number] TAKE 1 [facility] NE 25 mcg 8-30 TABLET BY ity o f tablet 00:00: MOUTH 00 EVERY DAY Medical IN THE [place] MORNING TOPIRAMATE 2021-0 Yes [id number] TAKE 1 [facility] 50 mg 8-30 TABLET BY ity of tablet 00:00: MOUTH 00 TWICE A Medical DAY [place] LEVOTHYROXI 2021-0 Yes [id number] TAKE 1 [facility] 25 mcg 8-30 TABLET BY ity o f tablet 00:00: MOUTH 00 EVERY DAY Medical IN THE [place] MORNING TOPIRAMATE 2021-0 Yes [id number] TAKE 1 [facility] 50 mg 8-30 TABLET BY ity of tablet 00:00: MOUTH [place] 00 TWICE A Medical DAY [place] LEVOTHYROXI 2021-0 Yes [id number] TAKE 1 [facility] NE 25 mcg 8-30 TABLET BY ity o f tablet 00:00: MOUTH [place] 00 EVERY DAY Medical IN THE [place] MORNING TOPIRAMATE 2021-0 Yes [id number] TAKE 1 [facility] 50 mg 8-30 TABLET BY ity of tablet 00:00: MOUTH [place] 00 TWICE A Medical DAY [place] LEVOTHYROXI 2021-0 Yes [id number] TAKE 1 [facility] NE 25 mcg 8-30 TABLET BY ity o f tablet 00:00: MOUTH [place] 00 EVERY DAY Medical IN THE [place] MORNING TOPIRAMATE 2021-0 Yes [id number] TAKE 1 [facility] 50 mg 8-30 TABLET BY ity of tablet 00:00: MOUTH [place] 00 TWICE A Medical DAY [place] LEVOTHYROXI 2021-0 Yes [id number] TAKE 1 [facility] NE 25 mcg 8-30 TABLET BY ity o f tablet 00:00: MOUTH [place] 00 EVERY DAY Medical IN THE [place] MORNING TOPIRAMATE 2021-0 Yes [id number] TAKE 1 [facility] 50 mg 8-30 TABLET BY ity of tablet 00:00: MOUTH [place] 00 TWICE A Medical DAY [place] LEVOTHYROXI 2021-0 Yes [id number] TAKE 1 [facility] NE 25 mcg 8-30 TABLET BY ity o f tablet 00:00: MOUTH [place] 00 EVERY DAY Medical IN THE [place] MORNING TOPIRAMATE 2021-0 Yes [id number] TAKE 1 [facility] 50 mg 8-30 TABLET BY ity of tablet 00:00: MOUTH [place] 00 TWICE A Medical DAY [place] LEVOTHYROXI 2021-0 Yes [id number] TAKE 1 [facility] NE 25 mcg 8-30 TABLET BY ity o f tablet 00:00: MOUTH [place] 00 EVERY DAY Medical IN THE [place] MORNING TOPIRAMATE 2021-0 Yes [id number] TAKE 1 [facility] 50 mg 8-30 TABLET BY ity of tablet 00:00: MOUTH [place] 00 TWICE A Medical DAY [place] LEVOTHYROXI 2021-0 Yes [id number] TAKE 1 [facility] NE 25 mcg 8-30 TABLET BY ity o f tablet 00:00: MOUTH [place] 00 EVERY DAY Medical IN THE [place] MORNING TOPIRAMATE 2021-0 2023- No [id number] TAKE 1 [facility] 50 mg 8-30 03-08 TABLET BY ity of tablet 00:00: 00:00 MOUTH [place] 00 :00 TWICE A Medical DAY [place] LEVOTHYROXI 2022- No [id number] TAKE 1 [facility] NE 25 mcg 05-07 TABLET BY ity of tablet 00:00: 00:00 MOUTH [place] 00 :00 EVERY DAY Medical IN THE [place] MORNING TOPIRAMATE 2022- No [id number] TAKE 1 [facility] 50 mg 05-07 TABLET BY ity of tablet 00:00: 00:00 MOUTH [place] 00 :00 TWICE A Medical DAY [place] LEVOTHYROXI 2022- No [id number] TAKE 1 [facility] NE 25 mcg 05-07 TABLET BY ity of tablet 00:00: 00:00 MOUTH [place] 00 :00 EVERY DAY Medical IN THE [place] MORNING FERROUS 2021- No [id number] TAKE 1 Uni vers GLUCONATE 05-06 TABLET BY ity of 324 mg (38 00:00: 00:00 MOUTH [place] mg iron) 00 :00 EVERY DAY Medica l tablet [place] FERROUS 2021- No [id number] TAKE 1 [facility] vers GLUCONATE 05-06 TABLET BY ity of 324 mg (38 00:00: 00:00 MOUTH [place] mg iron) 00 :00 EVERY DAY Medica l tablet [place] MAGNESIUM Yes [id number] TAKE 1 U nivers OXIDE 400 8-28 TABLET BY ity o f mg (241.3 00:00: MOUTH [place] mg 00 EVERY DAY Medical magnesium) [place] tablet MAGNESIUM Yes [id number] TAKE 1 U nivers OXIDE 400 8-28 TABLET BY ity o f mg (241.3 00:00: MOUTH [place] mg 00 EVERY DAY Medical magnesium) [place] tablet MAGNESIUM Yes [id number] TAKE 1 U nivers OXIDE 400 8-28 TABLET BY ity o f mg (241.3 00:00: MOUTH [place] mg 00 EVERY DAY Medical magnesium) Branch tablet MAGNESIUM Yes [id number] TAKE 1 U nivers OXIDE 400 8-28 TABLET BY ity o f mg (241.3 00:00: MOUTH [place] mg 00 EVERY DAY Medical magnesium) Branch tablet MAGNESIUM Yes [id number] TAKE 1 U nivers OXIDE 400 8-28 TABLET BY ity o f mg (241.3 00:00: MOUTH [place] mg 00 EVERY DAY Medical magnesium) Branch tablet MAGNESIUM Yes [id number] TAKE 1 U nivers OXIDE 400 8-28 TABLET BY ity o f mg (241.3 00:00: MOUTH [place] mg 00 EVERY DAY Medical magnesium) Branch tablet MAGNESIUM Yes [id number] TAKE 1 U nivers OXIDE 400 8-28 TABLET BY ity o f mg (241.3 00:00: MOUTH [place] mg 00 EVERY DAY Medical magnesium) Branch tablet MAGNESIUM Yes [id number] TAKE 1 U nivers OXIDE 400 8-28 TABLET BY ity o f mg (241.3 00:00: MOUTH [place] mg 00 EVERY DAY Medical magnesium) Branch tablet MAGNESIUM Yes [id number] TAKE 1 U nivers OXIDE 400 8-28 TABLET BY ity o f mg (241.3 00:00: MOUTH [place] mg 00 EVERY DAY Medical magnesium) Branch tablet MAGNESIUM Yes [id number] TAKE 1 U nivers OXIDE 400 8-28 TABLET BY ity o f mg (241.3 00:00: MOUTH [place] mg 00 EVERY DAY Medical magnesium) Branch tablet MAGNESIUM 2022- No [id number] TAKE 1 [facility] OXIDE 400 8-28 01-25 TABLET BY ity of mg (241.3 00:00: 00:00 MOUTH [place] mg 00 :00 EVERY DAY Medical magnesium) Branch tablet MAGNESIUM 2022- No [id number] TAKE 1 [facility] OXIDE 400 8-28 01-25 TABLET BY ity of mg (241.3 00:00: 00:00 MOUTH [place] mg 00 :00 EVERY DAY Medical magnesium) Branch tablet MAGNESIUM 2022- No [id number] TAKE 1 [facility] OXIDE 400 8-28 01-25 TABLET BY ity of mg (241.3 00:00: 00:00 MOUTH [place] mg 00 :00 EVERY DAY Medical magnesium) Branch tablet lactulose Yes [id number] 15mL Take 15 mL [facility] 10 gram/15 8-22 by mouth 2 ity of mL solution 00:00: (two) [place] 00 times Medical daily as Branch needed for Constipati on. lactulose 2021-0 Yes [id number] 15mL Take 15 mL [facility] 10 gram/15 8-22 by mouth 2 ity of mL solution 00:00: (two) [place] 00 times Medical daily as Branch needed for Constipati on. lactulose 2021- Yes [id number] 15mL Take 15 mL [facility] 10 gram/15 8-22 by mouth 2 ity of mL solution 00:00: (two) [place] 00 times Medical daily as Branch needed for Constipati on. lactulose 2021-0 Yes [id number] 15mL Take 15 mL [facility] 10 gram/15 8-22 by mouth 2 ity of mL solution 00:00: (two) [place] 00 times Medical daily as Branch needed for Constipati on. lactulose 2021-0 Yes [id number] 15mL Take 15 mL [facility] 10 gram/15 8-22 by mouth 2 ity of mL solution 00:00: (two) [place] 00 times Medical daily as Branch needed for Constipati on. lactulose 2021-0 Yes [id number] 15mL Take 15 mL [facility] 10 gram/15 8-22 by mouth 2 ity of mL solution 00:00: (two) [place] 00 times Medical daily as Branch needed for Constipati on. lactulose 2021-0 Yes [id number] 15mL Take 15 mL [facility] 10 gram/15 8-22 by mouth 2 ity of mL solution 00:00: (two) [place] 00 times Medical daily as Branch needed for Constipati on. lactulose 2021-0 Yes [id number] 15mL Take 15 mL [facility] 10 gram/15 8-22 by mouth 2 ity of mL solution 00:00: (two) [place] 00 times Medical daily as Branch needed for Constipati on. lactulose 2021-0 2- No [id number] 15mL Take 15 mL [facility] 10 gram/15 8-22 11-22 by mouth 2 it y of mL solution 00:00: 00:00 (two) [place] [facility] 00 :00 times Medical daily as Branch needed for Constipati on. LISINOPRIL 2021-0 Yes TAKE 1 Unive rs 20 mg 7-20 TABLET BY ity of tablet 00:00: MOUTH [place] EVERY DAY Medical Branch LISINOPRIL 2021-0 Yes TAKE 1 Un[facility] rs 20 mg 7-20 TABLET BY ity of tablet 00:00: MOUTH [place] EVERY DAY Medical Branch LISINOPRIL 2021-0 Yes TAKE 1 Un[facility] rs 20 mg 7-20 TABLET BY ity of tablet 00:00: [facility] EVERY DAY Medical Branch LISINOPRIL 2021-0 Yes TAKE 1 Unive rs 20 mg 7-20 TABLET BY ity of tablet 00:00: MOUTH EVERY DAY Medical Branch LISINOPRIL 2022-0 Yes TAKE 1 Un[facility] rs 20 mg 7-20 TABLET BY ity of tablet 00:00: [facility] EVERY DAY Medical Branch LISINOPRIL 2022-0 Yes TAKE 1 Unive rs 20 mg 7-20 TABLET BY ity of tablet 00:00: [facility] EVERY DAY Medical Branch LISINOPRIL 2-0 Yes TAKE 1 Unive rs 20 mg 7-20 TABLET BY ity of tablet 00:00: [facility] EVERY DAY Medical Branch LISINOPRIL 2022-0 Yes TAKE 1 Unive rs 20 mg 7-20 TABLET BY ity of tablet 00:00: [facility] EVERY DAY Medical Branch LISINOPRIL 2-0 Yes TAKE 1 Unive rs 20 mg 7-20 TABLET BY ity of tablet 00:00: [facility] EVERY DAY Medical Branch LISINOPRIL 2-0 Yes TAKE 1 Unive rs 20 mg 7-20 TABLET BY ity of tablet 00:00: [facility] EVERY DAY Medical Branch LISINOPRIL 2-0 Yes TAKE 1 Unive rs 20 mg 7-20 TABLET BY ity of tablet 00:00: [facility] EVERY DAY Medical Branch LISINOPRIL 2-0 Yes TAKE 1 Unive rs 20 mg 7-20 TABLET BY ity of tablet 00:00: [facility] EVERY DAY Medical Branch LISINOPRIL 2022-0 Yes TAKE 1 Unive rs 20 mg 7-20 TABLET BY ity of tablet 00:00: [facility] EVERY DAY Medical Branch LISINOPRIL 2022-0 Yes TAKE 1 Unive rs 20 mg 7-20 TABLET BY ity of tablet 00:00: [facility] EVERY DAY Medical Branch LISINOPRIL 2022-0 Yes TAKE 1 Unive rs 20 mg 7-20 TABLET BY ity of tablet 00:00: [facility] EVERY DAY Medical Branch LISINOPRIL 2-0 Yes TAKE 1 Unive rs 20 mg 7-20 TABLET BY ity of tablet 00:00: [facility] EVERY DAY Medical Branch LISINOPRIL 2-0 Yes TAKE 1 Unive rs 20 mg 7-20 TABLET BY ity of tablet 00:00: [facility] EVERY DAY Medical Branch LISINOPRIL 2-0 Yes TAKE 1 Un[facility] rs 20 mg 7-20 TABLET BY ity of tablet 00:00: [facility] EVERY DAY Medical Branch LISINOPRIL 2022-0 Yes TAKE 1 Un[facility] rs 20 mg 7-20 TABLET BY ity of tablet 00:00: [facility] EVERY DAY Medical Branch LISINOPRIL 2-0 Yes TAKE 1 Un[facility] rs 20 mg 7-20 TABLET BY ity of tablet 00:00: [facility] EVERY DAY Medical Branch LISINOPRIL 2-0 Yes TAKE 1 Un[facility] rs 20 mg 7-20 TABLET BY ity of tablet 00:00: [facility] EVERY DAY Medical Branch LISINOPRIL 2-0 Yes TAKE 1 Un[facility] rs 20 mg 7-20 TABLET BY ity of tablet 00:00: [facility] EVERY DAY Medical Branch LISINOPRIL 2021-0 Yes TAKE 1 Un[facility] rs 20 mg 7-20 TABLET BY ity of tablet 00:00: [facility] EVERY DAY Medical Branch LISINOPRIL 2-0 Yes TAKE 1 [facility] rs 20 mg 7-20 TABLET BY ity of tablet 00:00: [facility] EVERY DAY Medical Branch LISINOPRIL 2-0 Yes TAKE 1 [facility] rs 20 mg 7-20 TABLET BY ity of tablet 00:00: [facility] EVERY DAY Medical Branch LISINOPRIL 2-0 Yes TAKE 1 [facility] rs 20 mg 7-20 TABLET BY ity of tablet 00:00: [facility] EVERY DAY Medical Branch LISINOPRIL 2-0 Yes TAKE 1 [facility] rs 20 mg 7-20 TABLET BY ity of tablet 00:00: [facility] EVERY DAY Medical Branch LISINOPRIL 2-0 3- No TAKE 1 Univ ers 20 mg 7-20 03-08 TABLET BY ity of tablet 00:00: 00:00 [facility] 00 :00 EVERY DAY Medical Branch LISINOPRIL 2022-0 3- No TAKE 1 Univ ers 20 mg 7-20 03-08 TABLET BY ity of tablet 00:00: 00:00 [facility] 00 :00 EVERY DAY Medical Branch ondansetron 2021-0 2021- No Unive rs 4 mg -17 05-09 ity of disintegrat 00:00: 00:00 [place] ing tablet 00 :00 Medical Branch ondansetron 2021-0 2021- No Unive rs 4 mg -17 05-09 ity of disintegrat 00:00: 00:00 [place] ing tablet 00 :00 Medical Branch XARELTO 10 2021- No 10mg Take 10 mg [facility] mg tablet 02-13 by mouth ity o f 00:00: 00:00 daily. [place] 00 :00 Medical Branch XARELTO 10 2021- No 10mg Take 10 mg [facility] mg tablet 02-13 by mouth ity o f 00:00: 00:00 daily. [place] 00 :00 Medical Branch diazePAM 2021- No [id number] 2mg Take 1 U nivers (VALIUM) 2 12-19 tablet by ity of mg tablet 00:00: 00:[place] :[place] (two) Medical times Branch daily as needed for Anxiety. diazePAM 2021- No [id number] 2mg Take 1 U nivers (VALIUM) 2 12-19 tablet by ity of mg tablet 00:00: 00:[place] mouth [place] 00 :[place] (two) Medical times Branch daily as needed for Anxiety. gabapentin 2021- No [id number] 300mg Take 1 [facility] 300 mg 11-19 [id number] capsule by ity of capsule 00:00: 00:00 mouth 3 [place] 00 :00 (three) Medical times Branch daily. methylPREDN 2021- No [id number] Take by [facility] ISolone 4 11-19 [id number] mouth ity of mg tablets 00:00: 00:00 SEE-INSTRU [place] 00 :00 CTIONS. Medical follow Branch package directions gabapentin 2021- No [id number] 300mg Take 1 [facility] 300 mg 11-19 [id number] capsule by ity of capsule 00:00: 00:00 mouth 3 [place] 00 :00 (three) Medical times Branch daily. methylPREDN 2021- [id number] [facility] [id number] mouth ity of mg tablets 00:00: 00:00 SEE-INSTRU [place] 00 :00 CTIONS. Medical follow Branch package directions ergocalcife 2021- No [id number] Take 1 [facility] rol, 10-16 capsule by ity of vitamin d2, 00:00: [place] 1,250 [place] 00 :00 weekly. Medical (50,000 Branch unit) capsule ergocalcife 2021-0 2021- No [id number] Take 1 [facility] rol, 10-16 capsule by ity of vitamin d2, 00:00: 00:[place] mouth [place] 1,250 mcg 00 :00 weekly. Medical (50,000 Branch unit) capsule loratadine 2021-0 Yes [id number] 10mg Take 1 [facility] 10 mg 1-31 tablet by ity of tablet 00:00: mouth [place] 00 daily. Medical Branch proMETHazin 0 Yes [id number] 25mg Take 1 [facility] e 25 mg 1-31 tablet by ity of tablet 00:00: mouth 2 (two) Medical times Branch daily as needed for Nausea and Vomiting (N/V). SERTraline 0 Yes [id number] 100mg Take 1 [facility] 100 mg 1-31 tablet by ity of tablet 00:00: mouth [place] 00 daily. Medical Branch pantoprazol 0 Yes [id number] 40mg Take 1 [facility] e 40 mg EC 1-31 tablet by ity of tablet 00:00: mouth 2 (two) Medical times Branch daily. loratadine 2021-0 Yes [id number] 10mg Take 1 [facility] 10 mg 1-31 tablet by ity of tablet 00:00: mouth [place] 00 daily. Medical Branch proMETHazin 2021-0 Yes [id number] 25mg Take 1 [facility] e 25 mg 1-31 tablet by ity of tablet 00:00: mouth 2 (two) Medical times Branch daily as needed for Nausea and Vomiting (N/V). SERTraline 2021-0 Yes [id number] 100mg Take 1 [facility] 100 mg 1-31 tablet by ity of tablet 00:00: mouth [place] 00 daily. Medical Branch pantoprazol 2021-0 Yes [id number] 40mg Take 1 [facility] e 40 mg EC 1-31 tablet by ity of tablet 00:00: mouth 2 [place] 00 (two) Medical times Branch daily. loratadine 2021-0 Yes [id number] 10mg Take 1 [facility] 10 mg 1-31 tablet by ity of tablet 00:00: mouth [place] 00 daily. Medical Branch proMETHazin 2021-0 Yes [id number] 25mg Take 1 [facility] e 25 mg 1-31 tablet by ity of tablet 00:00: mouth 2 00 (two) Medical times Branch daily as needed for Nausea and Vomiting (N/V). SERTraline 0 Yes [id number] 100mg Take 1 [facility] 100 mg 1-31 tablet by ity of tablet 00:00: mouth [place] 00 daily. Medical Branch pantoprazol 0 Yes [id number] 40mg Take 1 [facility] e 40 mg EC 1-31 tablet by ity of tablet 00:00: mouth 2 [place] 00 (two) Medical times Branch daily. loratadine 0 Yes [id number] 10mg Take 1 [facility] 10 mg 1-31 tablet by ity of tablet 00:00: mouth [place] 00 daily. Medical Branch proMETHazin Yes [id number] 25mg Take 1 [facility] e 25 mg 1-31 tablet by ity of tablet 00:00: mouth 2 (two) Medical times Branch daily as needed for Nausea and Vomiting (N/V). SERTraline 0 Yes [id number] 100mg Take 1 [facility] 100 mg 1-31 tablet by ity of tablet 00:00: mouth [place] 00 daily. Medical Branch pantoprazol Yes [id number] 40mg Take 1 [facility] e 40 mg EC 1-31 tablet by ity of tablet 00:00: mouth 2 (two) Medical times Branch daily. loratadine 2021-0 Yes [id number] 10mg Take 1 [facility] 10 mg 1-31 tablet by ity of tablet 00:00: mouth [place] 00 daily. Medical Branch proMETHazin 0 Yes [id number] 25mg Take 1 [facility] e 25 mg 1-31 tablet by ity of tablet 00:00: mouth 2 00 (two) Medical times Branch daily as needed for Nausea and Vomiting (N/V). SERTraline 2021-0 Yes [id number] 100mg Take 1 [facility] 100 mg 1-31 tablet by ity of tablet 00:00: mouth [place] 00 daily. Medical Branch pantoprazol 0 Yes [id number] 40mg Take 1 [facility] e 40 mg EC 1-31 tablet by ity of tablet 00:00: mouth 2 [place] 00 (two) Medical times Branch daily. loratadine 2021-0 Yes [id number] 10mg Take 1 [facility] 10 mg 1-31 tablet by ity of tablet 00:00: mouth [place] 00 daily. Medical Branch proMETHazin 2021-0 Yes [id number] 25mg Take 1 [facility] e 25 mg 1-31 tablet by ity of tablet 00:00: mouth 2 [place] 00 (two) Medical times Branch daily as needed for Nausea and Vomiting (N/V). SERTraline 0 Yes [id number] 100mg Take 1 [facility] 100 mg 1-31 tablet by ity of tablet 00:00: mouth [place] 00 daily. Medical Branch pantoprazol 0 Yes [id number] 40mg Take 1 [facility] e 40 mg EC 1-31 tablet by ity of tablet 00:00: mouth 2 [place] 00 (two) Medical times Branch daily. loratadine 0 Yes [id number] 10mg Take 1 [facility] 10 mg 1-31 tablet by ity of tablet 00:00: mouth [place] 00 daily. Medical Branch proMETHazin 0 Yes [id number] 25mg Take 1 [facility] e 25 mg 1-31 tablet by ity of tablet 00:00: mouth 2 [place] 00 (two) Medical times Branch daily as needed for Nausea and Vomiting (N/V). SERTraline 0 Yes [id number] 100mg Take 1 [facility] 100 mg 1-31 tablet by ity of tablet 00:00: mouth [place] 00 daily. Medical Branch pantoprazol 0 Yes [id number] 40mg Take 1 [facility] e 40 mg EC 1-31 tablet by ity of tablet 00:00: mouth 2 [place] 00 (two) Medical times Branch daily. loratadine 2021-0 Yes [id number] 10mg Take 1 [facility] 10 mg 1-31 tablet by ity of tablet 00:00: mouth [place] 00 daily. Medical Branch proMETHazin 0 Yes [id number] 25mg Take 1 [facility] e 25 mg 1-31 tablet by ity of tablet 00:00: mouth 2 [place] 00 (two) Medical times Branch daily as needed for Nausea and Vomiting (N/V). SERTraline 2021-0 Yes [id number] 100mg Take 1 [facility] 100 mg 1-31 tablet by ity of tablet 00:00: mouth [place] 00 daily. Medical Branch pantoprazol 2021-0 Yes [id number] 40mg Take 1 [facility] e 40 mg EC 1-31 tablet by ity of tablet 00:00: mouth 2 (two) Medical times Branch daily. loratadine 2021-0 Yes [id number] 10mg Take 1 [facility] 10 mg 1-31 tablet by ity of tablet 00:00: mouth [place] 00 daily. Medical Branch proMETHazin 2021-0 Yes [id number] 25mg Take 1 [facility] e 25 mg 1-31 tablet by ity of tablet 00:00: mouth 2 (two) Medical times Branch daily as needed for Nausea and Vomiting (N/V). SERTraline 2021-0 Yes [id number] 100mg Take 1 [facility] 100 mg 1-31 tablet by ity of tablet 00:00: mouth [place] 00 daily. Medical Branch pantoprazol 2021-0 Yes [id number] 40mg Take 1 [facility] e 40 mg EC 1-31 tablet by ity of tablet 00:00: mouth 2 (two) Medical times Branch daily. loratadine 2021-0 Yes [id number] 10mg Take 1 [facility] 10 mg 1-31 tablet by ity of tablet 00:00: mouth [place] 00 daily. Medical Branch proMETHazin 2021-0 Yes [id number] 25mg Take 1 [facility] e 25 mg 1-31 tablet by ity of tablet 00:00: mouth 2 (two) Medical times Branch daily as needed for Nausea and Vomiting (N/V). SERTraline 2021-0 Yes [id number] 100mg Take 1 [facility] 100 mg 1-31 tablet by ity of tablet 00:00: mouth [place] 00 daily. Medical Branch pantoprazol 2021-0 Yes [id number] 40mg Take 1 [facility] e 40 mg EC 1-31 tablet by ity of tablet 00:00: mouth 2 (two) Medical times Branch daily. loratadine 2021-0 Yes [id number] 10mg Take 1 [facility] 10 mg 1-31 tablet by ity of tablet 00:00: mouth [place] 00 daily. Medical Branch proMETHazin 2021-0 Yes [id number] 25mg Take 1 [facility] e 25 mg 1-31 tablet by ity of tablet 00:00: mouth 2 00 (two) Medical times Branch daily as needed for Nausea and Vomiting (N/V). SERTraline 2021-0 Yes [id number] 100mg Take 1 [facility] 100 mg 1-31 tablet by ity of tablet 00:00: mouth [place] 00 daily. Medical Branch pantoprazol 2021-0 Yes [id number] 40mg Take 1 [facility] e 40 mg EC 1-31 tablet by ity of tablet 00:00: mouth 2 (two) Medical times Branch daily. loratadine 2021-0 Yes [id number] 10mg Take 1 [facility] 10 mg 1-31 tablet by ity of tablet 00:00: mouth [place] 00 daily. Medical Branch proMETHazin 0 Yes [id number] 25mg Take 1 [facility] e 25 mg 1-31 tablet by ity of tablet 00:00: mouth 2 (two) Medical times Branch daily as needed for Nausea and Vomiting (N/V). SERTraline 2021-0 Yes [id number] 100mg Take 1 [facility] 100 mg 1-31 tablet by ity of tablet 00:00: mouth [place] 00 daily. Medical Branch pantoprazol 0 Yes [id number] 40mg Take 1 [facility] e 40 mg EC 1-31 tablet by ity of tablet 00:00: mouth (two) Medical times Branch daily. loratadine 2021-0 Yes [id number] 10mg Take 1 [facility] 10 mg 1-31 tablet by ity of tablet 00:00: mouth [place] 00 daily. Medical Branch proMETHazin 2021-0 Yes [id number] 25mg Take 1 [facility] e 25 mg 1-31 tablet by ity of tablet 00:00: mouth 2 (two) Medical times Branch daily as needed for Nausea and Vomiting (N/V). SERTraline 2021-0 Yes [id number] 100mg Take 1 [facility] 100 mg 1-31 tablet by ity of tablet 00:00: mouth [place] 00 daily. Medical Branch pantoprazol 0 Yes [id number] 40mg Take 1 [facility] e 40 mg EC 1-31 tablet by ity of tablet 00:00: mouth 2 (two) Medical times Branch daily. loratadine 2021-0 Yes [id number] 10mg Take 1 [facility] 10 mg 1-31 tablet by ity of tablet 00:00: mouth [place] 00 daily. Medical Branch proMETHazin 2021-0 Yes [id number] 25mg Take 1 [facility] e 25 mg 1-31 tablet by ity of tablet 00:00: mouth 2 (two) Medical times Branch daily as needed for Nausea and Vomiting (N/V). SERTraline 2021-0 Yes [id number] 100mg Take 1 [facility] 100 mg 1-31 tablet by ity of tablet 00:00: mouth [place] 00 daily. Medical Branch pantoprazol 2021-0 Yes [id number] 40mg Take 1 [facility] e 40 mg EC 1-31 tablet by ity of tablet 00:00: mouth 2 [place] 00 (two) Medical times Branch daily. loratadine 2021-0 Yes [id number] 10mg Take 1 [facility] 10 mg 1-31 tablet by ity of tablet 00:00: mouth [place] 00 daily. Medical Branch proMETHazin 2021-0 Yes [id number] 25mg Take 1 [facility] e 25 mg 1-31 tablet by ity of tablet 00:00: mouth 2 00 (two) Medical times Branch daily as needed for Nausea and Vomiting (N/V). SERTraline 2021-0 Yes [id number] 100mg Take 1 [facility] 100 mg 1-31 tablet by ity of tablet 00:00: mouth [place] 00 daily. Medical Branch pantoprazol 2021-0 Yes [id number] 40mg Take 1 [facility] e 40 mg EC 1-31 tablet by ity of tablet 00:00: mouth 2 00 (two) Medical times Branch daily. loratadine 2021-0 Yes [id number] 10mg Take 1 [facility] 10 mg 1-31 tablet by ity of tablet 00:00: mouth [place] 00 daily. Medical Branch proMETHazin 2021-0 Yes [id number] 25mg Take 1 [facility] e 25 mg 1-31 tablet by ity of tablet 00:00: mouth 2 (two) Medical times Branch daily as needed for Nausea and Vomiting (N/V). SERTraline 2021-0 Yes [id number] 100mg Take 1 [facility] 100 mg 1-31 tablet by ity of tablet 00:00: mouth [place] 00 daily. Medical Branch pantoprazol 2021-0 Yes [id number] 40mg Take 1 [facility] e 40 mg EC 1-31 tablet by ity of tablet 00:00: mouth 2 [place] 00 (two) Medical times Branch daily. loratadine 2021-0 Yes [id number] 10mg Take 1 [facility] 10 mg 1-31 tablet by ity of tablet 00:00: mouth [place] 00 daily. Medical Branch proMETHazin 2021-0 Yes [id number] 25mg Take 1 [facility] e 25 mg 1-31 tablet by ity of tablet 00:00: mouth 2 (two) Medical times Branch daily as needed for Nausea and Vomiting (N/V). SERTraline 2021-0 Yes [id number] 100mg Take 1 [facility] 100 mg 1-31 tablet by ity of tablet 00:00: mouth [place] 00 daily. Medical Branch pantoprazol 2021-0 Yes [id number] 40mg Take 1 [facility] e 40 mg EC 1-31 tablet by ity of tablet 00:00: mouth 2 00 (two) Medical times Branch daily. loratadine 2021-0 Yes [id number] 10mg Take 1 [facility] 10 mg 1-31 tablet by ity of tablet 00:00: mouth [place] 00 daily. Medical Branch proMETHazin 0 Yes [id number] 25mg Take 1 [facility] e 25 mg 1-31 tablet by ity of tablet 00:00: mouth 2 (two) Medical times Branch daily as needed for Nausea and Vomiting (N/V). SERTraline 0 Yes [id number] 100mg Take 1 [facility] 100 mg 1-31 tablet by ity of tablet 00:00: mouth [place] 00 daily. Medical Branch pantoprazol 0 Yes [id number] 40mg Take 1 [facility] e 40 mg EC 1-31 tablet by ity of tablet 00:00: mouth 2 00 (two) Medical times Branch daily. proMETHazin 2021-0 Yes [id number] 25mg Take 1 [facility] e 25 mg 1-31 tablet by ity of tablet 00:00: mouth 2 (two) Medical times Branch daily as needed for Nausea and Vomiting (N/V). proMETHazin 2021-0 Yes [id number] 25mg Take 1 [facility] e 25 mg 1-31 tablet by ity of tablet 00:00: mouth 2 00 (two) Medical times Branch daily as needed for Nausea and Vomiting (N/V). proMETHazin 2021-0 Yes [id number] 25mg Take 1 [facility] e 25 mg 1-31 tablet by ity of tablet 00:00: mouth 2 00 (two) Medical times Branch daily as needed for Nausea and Vomiting (N/V). proMETHazin 2021-0 Yes [id number] 25mg Take 1 [facility] e 25 mg 1-31 tablet by ity of tablet 00:00: mouth 2 00 (two) Medical times Branch daily as needed for Nausea and Vomiting (N/V). proMETHazin 2021-0 Yes [id number] 25mg Take 1 [facility] e 25 mg 1-31 tablet by ity of tablet 00:00: mouth 2 00 (two) Medical times Branch daily as needed for Nausea and Vomiting (N/V). proMETHazin 2021-0 Yes [id number] 25mg Take 1 [facility] e 25 mg 1-31 tablet by ity of tablet 00:00: mouth 2 00 (two) Medical times Branch daily as needed for Nausea and Vomiting (N/V). proMETHazin 2021-0 Yes [id number] 25mg Take 1 [facility] e 25 mg 1-31 tablet by ity of tablet 00:00: mouth 2 00 (two) Medical times Branch daily as needed for Nausea and Vomiting (N/V). proMETHazin 2022- No [id number] 25mg Take 1 [facility] e 25 mg 10-08 tablet by ity of tablet 00:00: 00:00 mouth 2 [place] 00 :00 (two) Medical times Branch daily as needed for Nausea and Vomiting (N/V). loratadine 2022- No [id number] 10mg Take 1 [facility] 10 mg 10-08 tablet by ity of tablet 00:00: 00:00 mouth [place] 00 :00 daily. Medical Branch SERTraline 2022- No [id number] 100mg Take 1 [facility] 100 mg 10-08 tablet by ity of tablet 00:00: 00:00 mouth [place] 00 :00 daily. Medical Branch pantoprazol 2022- No [id number] 40mg Take 1 [facility] e 40 mg EC 10-08 tablet by ity of tablet 00:00: 00:00 mouth 2 [place] 00 :00 (two) Medical times Branch daily. loratadine 2022- No [id number] 10mg Take 1 [facility] 10 mg 10-08 tablet by ity of tablet 00:00: 00:00 mouth [place] 00 :00 daily. Medical Branch SERTraline 2022- No [id number] 100mg Take 1 [facility] 100 mg 10-08 tablet by ity of tablet 00:00: 00:00 mouth [place] 00 :00 daily. Medical Branch pantoprazol 2022- No [id number] 40mg Take 1 [facility] e 40 mg EC 10-08 tablet by ity of tablet 00:00: 00:00 mouth 2 [place] 00 :00 (two) Medical times Branch daily. loratadine 2022- No [id number] 10mg Take 1 [facility] 10 mg 10-08 tablet by ity of tablet 00:00: 00:00 mouth [place] 00 :00 daily. Medical Branch SERTraline 2022- No [id number] 100mg Take 1 [facility] 100 mg 10-08 tablet by ity of tablet 00:00: 00:00 mouth [place] 00 :00 daily. Medical Branch pantoprazol 2022- No [id number] 40mg Take 1 [facility] e 40 mg EC 10-08 tablet by ity of tablet 00:00: 00:00 mouth 2 [place] 00 :00 (two) Medical times Branch daily. linaCLOtide 2021- No [id number] 290ug Take 1 [facility] (LINZESS) 10-08 capsule by ity of 290 mcg Cap 00:00: 00:00 mouth [place] 00 :00 daily. Medical Branch linaCLOtide 2021- No [id number] 290ug Take 1 [facility] (LINZESS) 10-08 capsule [...] TWICE A Medica l DAY Branch SYMBICORT 2021-0 Yes TAKE 2 Univer s 160-4.5 1-18 [...] TWICE A Medica l DAY Branch SYMBICORT 2022- No TAKE 2 Unive rs 160-4.5 1-18 03-08 PUFFS BY ity of mcg/actuati 00:00: 00:00 MOUTH [place] on inhaler 00 :00 TWICE A Medica l DAY Branch SYMBICORT 2022- No TAKE 2 Unive rs 160-4.5 1-18 03-08 PUFFS BY ity of mcg/actuati 00:00: 00:00 MOUTH [place] on inhaler 00 :00 TWICE A Medica l DAY Branch 2019-09- No [id number] TAKE 1 [facility] mg tablet 005-09 TABLET BY ity of 00:00: 00:00 MOUTH [place] 00 :00 EVERY DAY Medical Branch ESTRADIOL 2019-09- No [id number] TAKE 1 [facility] mg tablet 0- TABLET BY ity of 00:00: 00:00 MOUTH [...] s 00 bedtime as Medical needed. Branch zolpide 2018-09 Yes 1{tbl} Take 1 Unive rs (AMBIEN) 5 1-01 tablet by ity of mg tablet 00:00: mouth at [place] 00 bedtime as Medical needed. Branch zolpide 2018-09 Yes 1{tbl} Take 1 Unive rs (AMBIEN) 5 1-01 tablet by ity of mg tablet 00:00: mouth at [place] 00 bedtime as Medical needed. Branch zolpide 2018-09 Yes 1{tbl} Take 1 Unive rs (AMBIEN) 5 1-01 tablet by ity of mg tablet 00:00: mouth at [place] 00 bedtime as Medical needed. Branch zolpide 2018-09 Yes 1{tbl} Take 1 Unive rs (AMBIEN) 5 1-01 tablet by ity of mg tablet 00:00: mouth at [place] 00 bedtime as Medical needed. Branch zolpide 2018-09 Yes 1{tbl} Take 1 Unive rs (AMBIEN) 5 1-01 tablet by ity of mg tablet 00:00: mouth at [place] 00 bedtime as Medical needed. Branch zolpide 2018-09 Yes 1{tbl} Take 1 Unive rs (AMBIEN) 5 1-01 tablet by ity of mg tablet 00:00: mouth at [place] 00 bedtime as Medical needed. Branch zolpide 2018-09 Yes 1{tbl} Take 1 Unive rs (AMBIEN) 5 1-01 tablet by ity of mg tablet 00:00: mouth at [place] 00 bedtime as Medical needed. [place] zolpide 2018-09 Yes 1{tbl} Take 1 Unive rs (AMBIEN) 5 1-01 tablet by ity of mg tablet 00:00: mouth at [place] 00 bedtime as Medical needed. [place] zolpide 2018-09 Yes 1{tbl} Take 1 Unive rs (AMBIEN) 5 1-01 tablet by ity of mg tablet 00:00: mouth at [place] 00 bedtime as Medical needed. [place] zolpide 2018-09 Yes 1{tbl} Take 1 Unive rs (AMBIEN) 5 1-01 tablet by ity of mg tablet 00:00: mouth at [place] 00 bedtime as Medical needed. [place] zolpide 2018-09 Yes 1{tbl} Take 1 Unive rs (AMBIEN) 5 1-01 tablet by ity of mg tablet 00:00: mouth at [place] 00 bedtime as Medical needed. [place] zolpide 2018-09 Yes 1{tbl} Take 1 Unive rs (AMBIEN) 5 1-01 tablet by ity of mg tablet 00:00: mouth at [place] 00 bedtime as Medical needed. [place] zolpide 2018-09 Yes 1{tbl} Take 1 Unive rs (AMBIEN) 5 1-01 tablet by ity of mg tablet 00:00: mouth at [place] 00 bedtime as Medical needed. [place] zolpide 2018-09 Yes 1{tbl} Take 1 Unive rs (AMBIEN) 5 1-01 tablet by ity of mg tablet 00:00: mouth at [place] 00 bedtime as Medical needed. [place] zolpide 2018-09 Yes 1{tbl} Take 1 Unive rs (AMBIEN) 5 1-01 tablet by ity of mg tablet 00:00: mouth at [place] 00 bedtime as Medical needed. [place] zolpide 2018-09 Yes 1{tbl} Take 1 Unive rs (AMBIEN) 5 1-01 tablet by [facility]y of mg tablet 00:00: mouth at [place] 00 bedtime as Medical needed. [place] zolpide 2018-09 Yes 1{tbl} Take 1 Unive rs (AMBIEN) 5 1-01 tablet by ity of mg tablet 00:00: mouth at [place] 00 bedtime as Medical needed. [place] zolpide 2018-09 Yes 1{tbl} Take 1 Unive rs (AMBIEN) 5 1-01 tablet by ity of mg tablet 00:00: mouth at [place] 00 bedtime as Medical needed. [place] zolpide 2018-09 Yes 1{tbl} Take 1 Unive rs (AMBIEN) 5 1-01 tablet by [facility]y of mg tablet 00:00: mouth at [place] 00 bedtime as Medical needed. [place] zolpide 2018-09 Yes 1{tbl} Take 1 Unive rs (AMBIEN) 5 1-01 tablet by ity of mg tablet 00:00: mouth at [place] 00 bedtime as Medical needed. [place] zolpide 2018-09 Yes 1{tbl} Take 1 Unive rs (AMBIEN) 5 1-01 tablet by [facility]y of mg tablet 00:00: mouth at [place] 00 bedtime as Medical needed. [place] zolpide 2018-09 Yes 1{tbl} Take 1 Unive rs (AMBIEN) 5 1-01 tablet by ity of mg tablet 00:00: mouth at [place] 00 bedtime as Medical needed. [place] zolpide 2018-09 Yes 1{tbl} Take 1 Unive rs (AMBIEN) 5 1-01 tablet by ity of mg tablet 00:00: mouth at [place] 00 bedtime as Medical needed. [place] zolpide 2018-09 Yes 1{tbl} Take 1 Unive rs (AMBIEN) 5 1-01 tablet by ity of mg tablet 00:00: mouth at [place] 00 bedtime as Medical needed. [place] zolpide 2018-09 Yes 1{tbl} Take 1 Unive rs (AMBIEN) 5 1-01 tablet by ity of mg tablet 00:00: mouth at [place] 00 bedtime as Medical needed. [place] zolpide 2018-09 Yes 1{tbl} Take 1 Unive rs (AMBIEN) 5 1-01 tablet by [facility]y of mg tablet 00:00: mouth at [place] 00 bedtime as Medical needed. [place] zolpide 2018-09 Yes 1{tbl} Take 1 Unive rs (AMBIEN) 5 1-01 tablet by [facility]y of mg tablet 00:00: mouth at [place] 00 bedtime as Medical needed. [place] zolpidem 2018-09 Yes 1{tbl} Take 1 Unive rs (AMBIEN) 5 1-01 tablet by [facility]y of mg tablet 00:00: mouth at [place] 00 bedtime as Medical needed. [place] zolpidem 2018-09 Yes 1{tbl} Take 1 Unive rs (AMBIEN) 5 1-01 tablet by [facility]y of mg tablet 00:00: mouth at [place] 00 bedtime as Medical needed. [place] zolpidem 2018-09 Yes 1{tbl} Take 1 Unive rs (AMBIEN) 5 1-01 tablet by ity of mg tablet 00:00: mouth at [place] 00 bedtime as Medical needed. [place] zolpidem 2018-09 Yes 1{tbl} Take 1 Unive rs (AMBIEN) 5 1-01 tablet by ity of mg tablet 00:00: mouth at [place] 00 bedtime as Medical needed. [place] zolpidem 2018-09 Yes 1{tbl} Take 1 Unive rs (AMBIEN) 5 1-01 tablet by [facility]y of mg tablet 00:00: mouth at [place] 00 bedtime as Medical needed. [place] zolpidem 2018-09 Yes 1{tbl} Take 1 Un[facility] rs (AMBIEN) 5 1-01 tablet by [facility] of mg tablet 00:00: mouth at [place] 00 bedtime as Medical needed. [place] levothyroxi 2018-09 Yes 25ug Take 25 Met [...] MG EC 00 l tablet LINZESS 290 2018- Yes 290ug QD Take 290 M ethodi [...] 00:00: daily. [facility] 00 l cetirizine 2019-0 Yes 10mg QD Take 10 mg M ethodi (ZyrTEC) 10 9-[address] [facility] tablet 00:00: daily. [facility] 00 l cetirizine 2019-0 Yes 10mg QD Take 10 mg M ethodi (ZyrTEC) 10 9-[address] MG tablet 00:00: daily. Hospit [facility] 00 l cetirizine 2018-0 Yes 10mg QD Take 10 mg M [...] tablet 00:00: [facility] a DAILY l estradiol Yes 1mg QD Take [address] [facility] (ESTRACE) 1 6-07 by mouth [facility] MG tablet 09:56: daily. Medica [address] levothyroxi Yes 25ug Take [address] [facility] ne 6-07 mcg [facility] (SYNTHROID, 09:56: mouth Medic al LEVOTHROID) 34 Every Center 25 MCG morning on tablet an empty stomach. cetirizine 2019-0 Yes 10mg QD Take [address] [facility] (ZYRTEC) 10 6-07 by mouth [facility] MG tablet 09:56: daily. Medica l [address] [place] lisinopril 2019-0 Yes 10mg QD Take 10 [...] MG tablet 09:56: mouth Medical 34 nightly. [place] albuterol 2019-0 Yes 1{puff} Inhale [address] HFA 6-07 puff [facility] (VENTOLIN 09:56: mouth via Med ical HFA) 90 34 inhaler Center mcg/actuati every 6 on inhaler (six) hours as needed for Wheezing. estradiol 2019-0 Yes 1mg QD Take [address] [facility] (ESTRACE) 1 6-07 by mouth [facility] MG tablet 09:56: daily. Medica l [address] [place] levothyroxi 2019-0 Yes 25ug Take [address] [facility] ne 6-07 mcg [facility] (SYNTHROID, 09:56: mouth Medic al LEVOTHROID) 34 Every Center 25 MCG morning on tablet an empty stomach. cetirizine 2018-0 Yes 10mg QD Take [address] (ZYRTEC) 10 6-07 by mouth [facility] MG tablet 09:56: daily. Medica l [address] [place] lisinopril 2019-0 Yes 10mg QD Take 10 [...] MG tablet 09:56: mouth Medical 34 nightly. [place] albuterol 2018-0 Yes 1{puff} Inhale [address] HFA 6-07 puff [facility] (VENTOLIN 09:56: mouth via Med ical HFA) 90 34 inhaler Center mcg/actuati every 6 on inhaler (six) hours as needed for Wheezing. estradiol 2018-0 Yes 1mg QD Take [address] [facility] (ESTRACE) 1 6-07 by mouth [facility] MG tablet 09:56: daily. Medica l [address] [place] levothyroxi 2018-0 Yes 25ug Take [address] [facility] ne 6-07 mcg [facility] (SYNTHROID, 09:56: mouth Medic al LEVOTHROID) 34 Every Center 25 MCG morning on tablet an empty stomach. cetirizine 2018-0 Yes 10mg QD Take [address] (ZYRTEC) 10 6-07 by mouth [facility] MG tablet 09:56: daily. Medica l 34 [place] lisinopril 2019-0 Yes 10mg QD Take 10 [...] 09:56: mouth Medical 34 nightly. Center albuterol 2018-0 Yes 1{puff} Inhale [address] HFA 6-07 puff [facility] (VENTOLIN 09:56: mouth via Med ical HFA) 90 34 inhaler Center mcg/actuati every 6 on inhaler (six) hours as needed for Wheezing. estradiol 0 Yes 1mg QD Take [address] [facility] (ESTRACE) 1 6-07 by mouth [facility] MG tablet 09:56: daily. Medica l 34 [place] levothyroxi 2018-0 Yes 25ug Take [address] [facility] ne [facility] (SYNTHROID, 09:56: mouth Medic al LEVOTHROID) 34 Every Center 25 MCG morning on tablet an empty stomach. cetirizine 0 Yes 10mg QD Take [address] [facility] (ZYRTEC) 10 6-07 by mouth [facility] MG tablet 09:56: daily. Medica l 34 [place] lisinopril 0 Yes 10mg QD Take 10 mg C [...] MG tablet 09:56: mouth Medical 34 nightly. [place] albuterol Yes 1{puff} Inhale [address] HFA 6-07 puff [facility] (VENTOLIN 09:56: mouth via Med ical HFA) 90 34 inhaler Center mcg/actuati every 6 on inhaler (six) hours as needed for Wheezing. estradiol Yes 1mg QD Take [address] [facility] (ESTRACE) 1 6-07 by mouth [facility] MG tablet 09:56: daily. Medica l 34 [place] levothyroxi 0 Yes 25ug Take [address] [facility] ne 6-07 [facility] (SYNTHROID, 09:56: mouth Medic al LEVOTHROID) 34 Every Center 25 MCG morning on tablet an empty stomach. cetirizine Yes 10mg QD Take [address] (ZYRTEC) 10 6-07 by mouth [facility] MG tablet 09:56: daily. Medica l 34 [place] lisinopril Yes 10mg QD Take [address] (PRINIVIL,Z 6-07 by mouth [facility] ESTRIL) 10 09:56: daily. Medic al MG tablet 34 [place] linaclotide Yes 290ug QD Take [address] (LINZESS) 6-07 [facility] mcg Cap 09:56: mouth Medic al 34 daily. [place] pantoprazol 0 Yes 40mg Q.5D Take 40 [...] MG tablet 09:56: mouth Medical 34 nightly. [place] albuterol Yes 1{puff} Inhale 1 [facility] [...] MG tablet 09:56: daily. Medica l 34 [place] lisinopril 2018-0 Yes 10mg QD Take 10 [...] mg 00:00: [facility] lisinopril 2019-0 Yes 10mg 10 mg. [facility] (PRINIVIL) 2-10 [facility] 20 mg 00:00: [facility] l lisinopril 2019-0 Yes 10mg 10 mg. [facility] (PRINIVIL) 2-10 [facility] 20 mg 00:00: [facility] tablet 00 l lisinopril 2019-0 Yes 10mg 10 mg. [facility] (PRINIVIL) 2-10 [facility] 20 mg 00:00: [facility] tablet 00 l lisinopril 2019-0 Yes 10mg 10 mg. [facility] (PRINIVIL) 2-10 [facility] 20 mg 00:00: [facility] tablet 00 l lisinopril 2019-0 Yes 10mg 10 mg. [facility] (PRINIVIL) 2-10 [facility] 20 mg 00:00: [facility] tablet 00 l lisinopril 2019-0 Yes 10mg 10 mg. [facility] (PRINIVIL) [...] inhaler 00 hours as Medic al needed. [place] PROAIR HFA Yes 1{puff} Inhale 1 Univers [...] as Medic al needed. Branch PROAIR HFA 2016-0 Yes 1{puff} Inhale 1 Univers 90 4-04 Puff every ity of mcg/actuati 00:00: 4 (four[place] on inhaler 00 hours as Medic al needed. Branch acetaminoph acetaminoph No acetaminop Breanne en 300 [...] FOR YOUR YOUR YOUR APPOINTMENT APPOINTMENT APPOINTMEN Stacey Lopezolin No Ventolin Aza robbi HFA 90 HFA 90 HFA [...] Immunizations Ordered Filled Immunization Date Status Comments [facility] e Immunization Name Name Pneumococcal 2022-10-02 Completed Universit y of Conjugate, PCV20 00:00:00 [facility] dical (Prevnar 20) Branch Pneumococcal 20 2022-10-02 Completed Universit y of Conjugate, PCV20 00:00:00 [facility] dical (Prevnar 20) Branch Pneumococcal 20 2022-10-02 Completed Universit y of Conjugate, PCV20 00:00:00 [facility] dical (Prevnar 20) Branch Pneumococcal 20 2022-10-02 Completed Universit y of Conjugate, PCV20 00:00:00 [facility] dical (Prevnar 20) Branch Pneumococcal 20 2022-10-02 Completed Universit y of Conjugate, PCV20 00:00:00 [facility] dical (Prevnar 20) Branch Pneumococcal 20 2022-10-02 Completed Universit y of Conjugate, PCV20 00:00:00 [facility] dical (Prevnar 20) Branch Pneumococcal 20 2022-10-02 Completed Universit y of Conjugate, PCV20 00:00:00 [facility] dical (Prevnar 20) Branch Pneumococcal 20 2022-10-02 Completed Universit y of Conjugate, PCV20 00:00:00 [facility] dical (Prevnar 20) Branch Pneumococcal 20 2022-10-02 Completed Universit y of Conjugate, PCV20 00:00:00 [facility] dical (Prevnar 20) Branch Pneumococcal 20 2022-10-02 Completed Universit y of Conjugate, PCV20 00:00:00 [facility] dical (Prevnar 20) Branch Pneumococcal 20 2022-10-02 Completed Universit y of Conjugate, PCV20 00:00:00 [facility] dical (Prevnar 20) Branch Pneumococcal 20 2022-10-02 Completed Universit y of Conjugate, PCV20 00:00:00 [facility] dical (Prevnar 20) Branch Pneumococcal 20 2022-10-02 Completed Universit y of Conjugate, PCV20 00:00:00 [facility] dical (Prevnar 20) Branch Pneumococcal 20 2022-10-02 Completed Universit y of Conjugate, PCV20 00:00:00 [facility] dical (Prevnar 20) Branch Pneumococcal 20 2022-10-02 [...] Universit y of Conjugate, PCV20 00:00:00 [place] [facility] (Prevnar 20) Branch Pneumococcal 20 2022-10-02 [...] Completed Universit y of Conjugate, PCV20 00:00:00 [facility] dical (Prevnar 20) Branch Pneumococcal 20 2022-10-02 Completed Universit y of Conjugate, PCV20 00:00:00 [facility] dical (Prevnar 20) Branch Influenza Virus 2022-07-09 Completed Universit y of Vaccine Recomb Quad 00:00:00 [facility], Preserv and ABX Branc h Free 18-64 YRS Influenza Virus 2022-07-09 Completed Universit y of Vaccine Recomb Quad 00:00:00 [facility], Preserv and ABX Branc h Free 18-64 YRS Influenza Virus 2022-07-09 Completed Universit y of Vaccine Recomb Quad 00:00:00 [facility], Preserv and ABX Branc h Free 18-64 YRS Influenza Virus 2022-07-09 Completed Universit y of Vaccine Recomb Quad 00:00:00 [facility], Preserv and ABX Branc h [...] Completed Unive rsity of PFIZER VACCINE 00:00:00 [facility] Influenza Virus 2021-09-17 Completed Universit y of Vaccine 00:00:00 [facility] SARS-COV-2 COVID-19 2021-09-17 Completed Unive rsity of PFIZER VACCINE 00:00:00 [facility] Influenza Virus 2021-09-17 Completed Universit y of Vaccine 00:00:00 [facility] SARS-COV-2 COVID-19 2021-09-17 Completed Unive rsity of PFIZER VACCINE 00:00:00 [facility] Influenza Virus 2021-09-17 Completed Universit y of Vaccine 00:00:00 [facility] SARS-COV-2 COVID-19 2021-09-17 Completed Unive rsity of PFIZER VACCINE 00:00:00 [facility] Influenza Virus 2021-09-17 Completed Universit y of Vaccine 00:00:00 [facility] SARS-COV-2 COVID-19 2021-09-17 Completed Unive rsity of PFIZER VACCINE 00:00:00 [facility] Influenza Virus 2021-09-17 Completed Universit y of Vaccine 00:00:00 [facility] SARS-COV-2 COVID-19 2021-09-17 Completed Unive rsity of PFIZER VACCINE 00:00:00 [facility] Influenza Virus 2021-09-17 Completed Universit y of Vaccine 00:00:00 [facility] SARS-COV-2 COVID-19 2021-09-17 Completed Unive rsity of PFIZER VACCINE 00:00:00 [facility] Influenza Virus 2021-09-17 Completed Universit y of Vaccine 00:00:00 [facility] SARS-COV-2 COVID-19 2021-09-17 Completed Unive rsity of PFIZER VACCINE 00:00:00 [facility] Influenza Virus 2021-09-17 Completed Universit y of Vaccine 00:00:00 [facility] SARS-COV-2 COVID-19 2021-09-17 Completed Unive rsity of PFIZER VACCINE 00:00:00 [facility] Influenza Virus 2021-09-17 Completed Universit y of Vaccine 00:00:00 [facility] SARS-COV-2 COVID-19 2021-09-17 Completed Unive rsity of PFIZER VACCINE 00:00:00 [facility] Influenza Virus 2021-09-17 Completed Universit y of Vaccine 00:00:00 [facility] SARS-COV-2 COVID-19 2021-09-17 Completed Unive rsity of PFIZER VACCINE 00:00:00 [facility] Influenza Virus 2021-09-17 Completed Universit y of Vaccine 00:00:00 [facility] SARS-COV-2 COVID-19 2021-09-17 Completed Unive rsity of PFIZER VACCINE 00:00:00 [facility] Influenza Virus 2021-09-17 Completed Universit y of Vaccine 00:00:00 [facility] SARS-COV-2 COVID-19 2021-09-17 Completed Unive rsity of PFIZER VACCINE 00:00:00 [facility] Influenza Virus 2021-09-17 Completed Universit y of Vaccine 00:00:00 [facility] SARS-COV-2 COVID-19 2021-09-17 Completed Unive rsity of PFIZER VACCINE 00:00:00 [facility] Influenza Virus 2021-09-17 Completed Universit y of Vaccine 00:00:00 [facility] SARS-COV-2 COVID-19 2021-09-17 Completed Unive rsity of PFIZER VACCINE 00:00:00 [facility] Influenza Virus 2021-09-17 Completed Universit y of Vaccine 00:00:00 [facility] SARS-COV-2 COVID-19 2021-09-17 Completed Unive rsity of PFIZER VACCINE 00:00:00 [facility] Influenza Virus 2021-09-17 Completed Universit y of Vaccine 00:00:00 [facility] SARS-COV-2 COVID-19 2021-09-17 Completed Unive rsity of PFIZER VACCINE 00:00:00 [facility] Influenza Virus 2021-09-17 Completed Universit y of Vaccine 00:00:00 [facility] SARS-COV-2 COVID-19 2021-09-17 Completed Unive rsity of PFIZER VACCINE 00:00:00 [facility] Influenza Virus 2021-09-17 Completed Universit y of Vaccine 00:00:00 [facility] SARS-COV-2 COVID-19 2021-09-17 Completed Unive rsity of PFIZER VACCINE 00:00:00 [facility] Influenza Virus 2021-09-17 Completed Universit y of Vaccine 00:00:00 [facility] SARS-COV-2 COVID-19 2021-09-17 Completed Unive rsity of PFIZER VACCINE 00:00:00 [facility] Influenza Virus 2021-09-17 Completed Universit y of Vaccine 00:00:00 [facility] SARS-COV-2 COVID-19 2021-09-17 Completed Unive rsity of PFIZER VACCINE 00:00:00 [facility] Influenza Virus 2021-09-17 Completed Universit y of Vaccine 00:00:00 [facility] SARS-COV-2 COVID-19 2021-09-17 Completed Unive rsity of PFIZER VACCINE 00:00:00 [facility] Influenza Virus 2021-09-17 Completed Universit y of Vaccine 00:00:00 [facility] SARS-COV-2 COVID-19 2021-09-17 Completed Unive rsity of PFIZER VACCINE 00:00:00 [facility] Influenza Virus 2021-09-17 Completed Universit y of Vaccine 00:00:00 [facility] SARS-COV-2 COVID-19 2021-09-17 Completed Unive rsity of PFIZER VACCINE 00:00:00 [facility] Influenza Virus 2021-09-17 Completed Universit y of Vaccine 00:00:00 [facility] SARS-COV-2 COVID-19 2021-09-17 Completed Unive rsity of PFIZER VACCINE 00:00:00 [facility] Influenza Virus 2021-09-17 Completed Universit y of Vaccine 00:00:00 [facility] SARS-COV-2 COVID-19 2021-09-17 Completed Unive rsity of PFIZER VACCINE 00:00:00 [facility] Influenza Virus 2021-09-17 Completed Universit y of Vaccine 00:00:00 [facility] SARS-COV-2 COVID-19 2021-09-17 Completed Unive rsity of PFIZER VACCINE 00:00:00 [facility] Influenza Virus 2021-09-17 Completed Universit y of Vaccine 00:00:00 [facility] SARS-COV-2 COVID-19 2021-09-17 Completed Unive rsity of PFIZER VACCINE 00:00:00 [facility] Influenza Virus 2021-09-17 Completed Universit y of Vaccine 00:00:00 [facility] SARS-COV-2 COVID-19 2021-09-17 Completed Unive rsity of PFIZER VACCINE 00:00:00 [facility] Influenza Virus 2021-09-17 Completed Universit y of Vaccine 00:00:00 [facility] SARS-COV-2 COVID-19 2021-09-17 Completed Unive rsity of PFIZER VACCINE 00:00:00 [facility] Influenza Virus 2021-09-17 Completed Universit y of Vaccine 00:00:00 [facility] SARS-COV-2 COVID-19 2021-09-17 Completed Unive rsity of PFIZER VACCINE 00:00:00 [facility] Influenza Virus 2021-09-17 Completed Universit y of Vaccine 00:00:00 [facility] SARS-COV-2 COVID-19 2021-09-17 Completed Unive rsity of PFIZER VACCINE 00:00:00 [facility] Influenza Virus 2021-09-17 Completed Universit y of Vaccine 00:00:00 [facility] SARS-COV-2 COVID-19 2021-09-17 Completed Unive rsity of PFIZER VACCINE 00:00:00 [facility] Influenza Virus 2021-09-17 Completed Universit y of Vaccine 00:00:00 [facility] SARS-COV-2 COVID-19 2021-09-17 Completed Unive rsity of PFIZER VACCINE 00:00:00 [facility] Influenza Virus 2021-09-17 Completed Universit y of Vaccine 00:00:00 [facility] SARS-COV-2 COVID-19 2021-09-17 Completed Unive rsity of PFIZER VACCINE 00:00:00 [facility] Influenza Virus 2021-09-17 Completed Universit y of Vaccine 00:00:00 [facility] SARS-COV-2 COVID-19 2021-01-16 Completed Unive rsity of CHELSEA/J&J VACCINE 00:00:00 [facility] SARS-COV-2 COVID-19 2021-01-16 Completed Unive rsity of CHELSEA/J&J VACCINE 00:00:00 [facility] SARS-COV-2 COVID-19 2021-01-16 Completed Unive rsity of CHELSEA/J&J VACCINE 00:00:00 [facility] SARS-COV-2 COVID-19 2021-01-16 Completed Unive rsity of CHELSEA/J&J VACCINE 00:00:00 [facility] SARS-COV-2 COVID-19 2021-01-16 Completed Unive rsity of CHELSEA/J&J VACCINE 00:00:00 [facility] SARS-COV-2 COVID-19 2021-01-16 Completed Unive rsity of CHELSEA/J&J VACCINE 00:00:00 [facility] SARS-COV-2 COVID-19 2021-01-16 Completed Unive rsity of CHELSEA/J&J VACCINE 00:00:00 [facility] SARS-COV-2 COVID-19 2021-01-16 Completed Unive rsity of CHELSEA/J&J VACCINE 00:00:00 [facility] SARS-COV-2 COVID-19 2021-01-16 Completed Unive rsity of CHELSEA/J&J VACCINE 00:00:00 [facility] SARS-COV-2 COVID-19 2021-01-16 Completed Unive rsity of CHELSEA/J&J VACCINE 00:00:00 [facility] SARS-COV-2 COVID-19 2021-01-16 Completed Unive rsity of CHELSEA/J&J VACCINE 00:00:00 [facility] SARS-COV-2 COVID-19 2021-01-16 Completed Unive rsity of CHELSEA/J&J VACCINE 00:00:00 [facility] SARS-COV-2 COVID-19 2021-01-16 Completed Unive rsity of CHELSEA/J&J VACCINE 00:00:00 [facility] SARS-COV-2 COVID-19 2021-01-16 Completed Unive rsity of CHELSEA/J&J VACCINE 00:00:00 [facility] SARS-COV-2 COVID-19 2021-01-16 Completed Unive rsity of CHELSEA/J&J VACCINE 00:00:00 [facility] SARS-COV-2 COVID-19 2021-01-16 Completed Unive rsity of CHELSEA/J&J VACCINE 00:00:00 [facility] SARS-COV-2 COVID-19 2021-01-16 Completed Unive rsity of CHELSEA/J&J VACCINE 00:00:00 [facility] SARS-COV-2 COVID-19 2021-01-16 Completed Unive rsity of CHELSEA/J&J VACCINE 00:00:00 [facility] SARS-COV-2 COVID-19 2021-01-16 Completed Unive rsity of CHELSEA/J&J VACCINE 00:00:00 [facility] SARS-COV-2 COVID-19 2021-01-16 Completed Unive rsity of CHELSEA/J&J VACCINE 00:00:00 [facility] SARS-COV-2 COVID-19 2021-01-16 Completed Unive rsity of CHELSEA/J&J VACCINE 00:00:00 [facility] SARS-COV-2 COVID-19 2021-01-16 Completed Unive rsity of CHELSEA/J&J VACCINE 00:00:00 [facility] SARS-COV-2 COVID-19 2021-01-16 Completed Unive rsity of CHELSEA/J&J VACCINE 00:00:00 [facility] SARS-COV-2 COVID-19 2021-01-16 Completed Unive rsity of CHELSEA/J&J VACCINE 00:00:00 [facility] SARS-COV-2 COVID-19 2021-01-16 Completed Unive rsity of CHELSEA/J&J VACCINE 00:00:00 [facility] SARS-COV-2 COVID-19 2021-01-16 Completed Unive rsity of CHELSEA/J&J VACCINE 00:00:00 [facility] SARS-COV-2 COVID-19 2021-01-16 Completed Unive rsity of CHELSEA/J&J VACCINE 00:00:00 [facility] SARS-COV-2 COVID-19 2021-01-16 Completed Unive rsity of CHELSEA/J&J VACCINE 00:00:00 [facility] SARS-COV-2 COVID-19 2021-01-16 Completed Unive rsity of CHELSEA/J&J VACCINE 00:00:00 [facility] SARS-COV-2 COVID-19 2021-01-16 Completed Unive rsity of CHELSEA/J&J VACCINE 00:00:00 [facility] SARS-COV-2 COVID-19 2021-01-16 Completed Unive rsity of CHELSEA/J&J VACCINE 00:00:00 [facility] SARS-COV-2 COVID-19 2021-01-16 Completed Unive rsity of CHELSEA/J&J VACCINE 00:00:00 [facility] SARS-COV-2 COVID-19 2021-01-16 Completed Unive rsity of CHELSEA/J&J VACCINE 00:00:00 [facility] SARS-COV-2 COVID-19 2021-01-16 Completed Unive rsity of CHELSEA/J&J VACCINE 00:00:00 [facility] SARS-COV-2 COVID-19 2021-01-16 Completed Unive rsity of CHELSEA/J&J VACCINE 00:00:00 [facility] Influenza Virus 2020-07-13 Completed Universit y of Vaccine Recomb Quad 00:00:00 [facility], Preserv and ABX Branc h [...] Completed Universit y of Vaccine 00:00:00 [facility] Influenza Virus 2019-06-30 Completed Universit y of Vaccine 00:00:00 [facility] Influenza Virus 2019-06-30 Completed Universit y of Vaccine 00:00:00 [facility] Influenza Virus 2019-06-30 Completed Universit y of Vaccine 00:00:00 [facility] Influenza Virus 2019-06-30 Completed Universit y of Vaccine 00:00:00 [facility] Influenza Virus 2019-06-30 Completed Universit y of Vaccine 00:00:00 [facility] Influenza Virus 2019-06-30 Completed Universit y of Vaccine 00:00:00 [facility] Influenza Virus 2019-06-30 Completed Universit y of Vaccine 00:00:00 [facility] Influenza Virus 2019-06-30 Completed Universit y of Vaccine 00:00:00 [facility] Influenza Virus 2019-06-30 Completed Universit y of Vaccine 00:00:00 [facility] Influenza Virus 2019-06-30 Completed Universit y of Vaccine 00:00:00 [facility] Influenza Virus 2019-06-30 Completed Universit y of Vaccine 00:00:00 [facility] Influenza Virus 2019-06-30 Completed Universit y of Vaccine 00:00:00 [facility] Influenza Virus 2019-06-30 Completed Universit y of Vaccine 00:00:00 [facility] Influenza Virus 2019-06-30 Completed Universit y of Vaccine 00:00:00 [facility] Influenza Virus 2019-06-30 Completed Universit y of Vaccine 00:00:00 [facility] Influenza Virus 2019-06-30 Completed Universit y of Vaccine 00:00:00 [facility] Influenza Virus 2019-06-30 Completed Universit y of Vaccine 00:00:00 [facility] Influenza Virus 2019-06-30 Completed Universit y of Vaccine 00:00:00 [facility] Influenza Virus 2019-06-30 Completed Universit y of Vaccine 00:00:00 [facility] Influenza Virus 2019-06-30 Completed Universit y of Vaccine 00:00:00 [facility] Influenza Virus 2019-06-30 Completed Universit y of Vaccine 00:00:00 [facility] Influenza Virus 2019-06-30 Completed Universit y of Vaccine 00:00:00 [facility] Influenza Virus 2019-06-30 Completed Universit y of Vaccine 00:00:00 [facility] Influenza Virus 2019-06-30 Completed Universit y of Vaccine 00:00:00 [facility] Influenza Virus 2019-06-30 Completed Universit y of Vaccine 00:00:00 [facility] Influenza Virus 2019-06-30 Completed Universit y of Vaccine 00:00:00 [facility] Influenza Virus 2019-06-30 Completed Universit y of Vaccine 00:00:00 [facility] Influenza Virus 2019-06-30 Completed Universit y of Vaccine 00:00:00 [facility] Influenza Virus 2019-06-30 Completed Universit y of Vaccine 00:00:00 [facility] Influenza Virus 2019-06-30 Completed Universit y of Vaccine 00:00:00 [facility] Influenza Virus 2019-06-30 Completed Universit y of Vaccine 00:00:00 [facility] Influenza Virus 2019-06-30 Completed Universit y of Vaccine 00:00:00 [facility] Influenza Virus 2019-06-30 Completed Universit y of Vaccine 00:00:00 [facility] Influenza Virus 2019-06-30 Completed Universit y of Vaccine 00:00:00 [facility] Influenza Virus 2018-06-08 Completed Universit y of Vaccine Quad ID 00:00:00 [facility] ical 18-64 YRS Branch Influenza Virus 2018-06-08 Completed Universit y of Vaccine Quad ID 00:00:00 [facility] ical 18-64 YRS Branch Influenza Virus 2018-06-08 Completed Universit y of Vaccine Quad ID 00:00:00 [facility] 18-64 Y[facility] Branch Influenza Virus 2018-06-08 Completed Universit y of Vaccine Quad ID 00:00:00 [facility] 18-64 YRS Branch Influenza Virus 2018-06-08 Completed Universit y of Vaccine Quad ID 00:00:00 [facility] ical 18-64 YRS Branch Influenza Virus 2018-06-08 Completed Universit y of Vaccine Quad ID 00:00:00 [facility] ical 18-64 YRS Branch Influenza Virus 2018-06-08 Completed Universit y of Vaccine Quad ID 00:00:00 [facility] 18-64 Y[facility] Branch Influenza Virus 2018-06-08 Completed Universit y of Vaccine Quad ID 00:00:00 [facility] ical 18-64 YRS Branch Influenza Virus 2018-06-08 Completed Universit y of Vaccine Quad ID 00:00:00 [facility] ical 18-64 YRS Branch Influenza Virus 2018-06-08 Completed Universit y of Vaccine Quad ID 00:00:00 [facility] ical 18-64 YRS Branch Influenza Virus 2018-06-08 Completed Universit y of Vaccine Quad ID 00:00:00 [facility] ical 18-64 YRS Branch Influenza Virus 2018-06-08 Completed Universit y of Vaccine [facility] ID 00:00:00 [facility] ical 18-64 YRS Branch Influenza Virus 2018-06-08 Completed [facility]it y of Vaccine [facility] ID 00:00:00 [facility] ical 18-64 YRS Branch Influenza Virus 2018-06-08 Completed [facility]it y of Vaccine [facility] ID 00:00:00 [facility] ical 18-64 YRS Branch Influenza Virus 2018-06-08 Completed Universit y of Vaccine [facility] ID 00:00:00 [facility] ical 18-64 YRS Branch Influenza Virus 2018-06-08 Completed [facility] 00:00:00 [facility] 18-64 Y[facility] Influenza Virus 2018-06-08 Completed [facility]it y of Vaccine [facility] ID 00:00:00 [facility] ical 18-64 YRS Branch Influenza Virus 2018-06-08 Completed Universit y of Vaccine Quad ID 00:00:00 [facility] ical 18-64 YRS Branch Influenza Virus 2018-06-08 Completed [facility]it y of Vaccine [facility] ID 00:00:00 [facility] ical 18-64 YRS Branch Influenza Virus 2018-06-08 Completed [facility]it y of Vaccine [facility] ID 00:00:00 [facility] ical 18-64 YRS Branch Influenza Virus 2018-06-08 Completed [facility]it y of Vaccine [facility] ID 00:00:00 [facility] ical 18-64 YRS Branch Influenza Virus 2018-06-08 Completed [facility]it y of Vaccine [facility] ID 00:00:00 [facility] 18-64 YRS Branch Influenza Virus 2018-06-08 Completed [facility]it y of Vaccine [facility] ID 00:00:00 [facility] 18-64 YRS Branch Influenza Virus 2018-06-08 Completed [facility]it y of Vaccine [facility] ID 00:00:00 [facility] 18-64 YRS Branch Influenza Virus 2018-06-08 Completed [facility]it y of Vaccine [facility] ID 00:00:00 [facility] ica 18-64 YRS Branch Influenza Virus 2018-06-08 Completed [facility] y of Vaccine [facility] ID 00:00:00 [facility] 18-64 YRS [place] Influenza Virus 2018-06-08 Completed [facility]it y of Vaccine [facility] ID 00:00:00 [facility] 18-64 YRS [place] Influenza Virus 2018-06-08 Completed [facility]it y of Vaccine [facility] ID 00:00:00 [facility] 18-64 YRS Branch Influenza Virus 2018-06-08 Completed [facility]it y of Vaccine [facility] ID 00:00:00 [facility] 18-64 YRS [place] Influenza Virus 2018-06-08 Completed [facility]it y of Vaccine [facility] ID 00:00:00 [facility] 18-64 YRS Branch Influenza Virus 2018-06-08 Completed [facility]it y of Vaccine [facility] ID 00:00:00 [facility] 18-64 YRS [place] Influenza Virus 2018-06-08 Completed [facility] y of Vaccine [facility] ID 00:00:00 [facility] 18-64 YRS Branch Influenza Virus 2018-06-08 Completed [facility] y of Vaccine [facility] ID 00:00:00 [facility] 18-64 YRS [place] Influenza Virus 2018-06-08 Completed [facility] y of Vaccine [facility] ID 00:00:00 [facility] 18-64 YRS [place] Influenza Virus 2018-06-08 Completed [facility]it y of Vaccine [facility] ID 00:00:00 [facility] [age] YRS [place] Influenza Virus 2017-06-21 Completed Universit y of Vaccine 00:00:00 [facility] Influenza Virus 2017-06-21 Completed Universit y of Vaccine 00:00:00 [facility] Influenza Virus 2017-06-21 Completed Universit y of Vaccine 00:00:00 [facility] Influenza Virus 2017-06-21 Completed Universit y of Vaccine 00:00:00 [facility] Influenza Virus 2017-06-21 Completed Universit y of Vaccine 00:00:00 [facility] Influenza Virus 2017-06-21 Completed Universit y of Vaccine 00:00:00 [facility] Influenza Virus 2017-06-21 Completed [facility]it y of Vaccine 00:00:00 [facility] Influenza Virus 2017-06-21 Completed Universit y of Vaccine 00:00:00 [facility] Influenza Virus 2017-06-21 Completed Universit y of Vaccine 00:00:00 [facility] Influenza Virus 2017-06-21 Completed [facility]it y of Vaccine 00:00:00 [facility] Influenza Virus 2017-06-21 Completed [facility]it y of Vaccine 00:00:00 [facility] Influenza Virus 2017-06-21 Completed Universit y of Vaccine 00:00:00 [facility] Influenza Virus 2017-06-21 Completed [facility]it y of Vaccine 00:00:00 [facility] Influenza Virus 2017-06-21 Completed [facility]it y of Vaccine 00:00:00 [facility] Influenza Virus 2017-06-21 Completed [facility]it y of Vaccine 00:00:00 [facility] Influenza Virus 2017-06-21 Completed Universit y of Vaccine 00:00:00 [facility] Influenza Virus 2017-06-21 Completed Universit y of Vaccine 00:00:00 [facility] Influenza Virus 2017-06-21 Completed Universit y of Vaccine 00:00:00 [facility] Influenza Virus 2017-06-21 Completed Universit y of Vaccine 00:00:00 [facility] Influenza Virus 2017-06-21 Completed [facility]it y of Vaccine 00:00:00 [facility] Influenza Virus 2017-06-21 Completed [facility]it y of Vaccine 00:00:00 [facility] Influenza Virus 2017-06-21 Completed [facility]it y of Vaccine 00:00:00 [facility] Influenza Virus 2017-06-21 Completed [facility]it y of Vaccine 00:00:00 [facility] Influenza Virus 2017-06-21 Completed [facility]it y of Vaccine 00:00:00 [facility] Influenza Virus 2017-06-21 Completed [facility]it y of Vaccine 00:00:00 [facility] Influenza Virus 2017-06-21 Completed [facility]it y of Vaccine 00:00:00 [facility] Influenza Virus 2017-06-21 Completed [facility]it y of Vaccine 00:00:00 [facility] Influenza Virus 2017-06-21 Completed [facility]it y of Vaccine 00:00:00 [facility] Influenza Virus 2017-06-21 Completed [facility]it y of Vaccine 00:00:00 [facility] Influenza Virus 2017-06-21 Completed [facility]it y of Vaccine 00:00:00 [facility] Influenza Virus 2017-06-21 Completed [facility]it y of Vaccine 00:00:00 [facility] Influenza Virus 2017-06-21 Completed [facility]it y of Vaccine 00:00:00 [facility] Influenza Virus 2017-06-21 Completed Universit y of Vaccine 00:00:00 [facility] Influenza Virus 2017-06-21 Completed Universit y of Vaccine 00:00:00 [facility] Influenza Virus 2017-06-21 Completed Universit y of Vaccine 00:00:00 [facility] TDAP 2017-03-19 Completed University of 00:00:00 [facility] TDAP 2017-03-19 Completed University of 00:00:00 [facility] TDAP 2017-03-19 Completed University of 00:00:00 [facility] TDAP 2017-03-19 Completed University of 00:00:00 [facility] TDAP 2017-03-19 Completed University of 00:00:00 [facility] TDAP 2017-03-19 Completed University of 00:00:00 [facility] TDAP 2017-03-19 Completed University of 00:00:00 [facility] TDAP 2017-03-19 Completed University of 00:00:00 [facility] TDAP 2017-03-19 Completed University of 00:00:00 [facility] TDAP 2017-03-19 Completed University of 00:00:00 [facility] TDAP 2017-03-19 Completed University of 00:00:00 [facility] TDAP 2017-03-19 Completed University of 00:00:00 [facility] TDAP 2017-03-19 Completed University of 00:00:00 [facility] TDAP 2017-03-19 Completed University of 00:00:00 [facility] TDAP 2017-03-19 Completed University of 00:00:00 [facility] TDAP 2017-03-19 Completed University of 00:00:00 [facility] TDAP 2017-03-19 Completed University of 00:00:00 [facility] TDAP 2017-03-19 Completed University of 00:00:00 [facility] TDAP 2017-03-19 Completed University of 00:00:00 [facility] TDAP 2017-03-19 Completed University of 00:00:00 [facility] TDAP 2017-03-19 Completed University of 00:00:00 [facility] TDAP 2017-03-19 Completed University of 00:00:00 [facility] TDAP 2017-03-19 Completed University of 00:00:00 [facility] TDAP 2017-03-19 Completed University of 00:00:00 [facility] TDAP 2017-03-19 Completed University of 00:00:00 [facility] TDAP 2017-03-19 Completed University of 00:00:00 [facility] TDAP 2017-03-19 Completed University of 00:00:00 [facility] TDAP 2017-03-19 Completed University of 00:00:00 [facility] TDAP 2017-03-19 Completed University of 00:00:00 [facility] TDAP 2017-03-19 Completed University of 00:00:00 [facility] TDAP 2017-03-19 Completed University of 00:00:00 [facility] TDAP 2017-03-19 Completed University of 00:00:00 [facility] TDAP 2017-03-19 Completed University of 00:00:00 [facility] TDAP 2017-03-19 Completed University of 00:00:00 [facility] TDAP 2017-03-19 Completed University of 00:00:00 [facility] Vital Signs Vital Name Observation Time Observation Value Comments Source Systolic blood 2022-11-28 17:00:00 134 mm[Hg] Univer sity of pressure [facility] Diastolic blood 2022-11-28 17:00:00 72 mm[Hg] Unive rsity of pressure [facility] Heart rate 2022-11-28 17:00:00 60 /min [facility] Respiratory rate 2022-11-28 17:00:00 15 /min [facility] O[facility] in 2022-11-28 17:00:00 98 /min [facility] Arterial blood by [facility] Pulse oximetry [place] Body temperature 2022-11-28 15:18:00 36.61 Luz Marina Univ ersity [facility] Body height 2022-11-28 15:18:00 160 cm [facility] Body weight 2022-11-28 15:18:00 104.781 kg [facility] BMI 2022-11-28 15:18:00 40.92 kg/m2 [facility] Systolic blood 2022-11-27 16:01:00 109 mm[Hg] Univer sity of pressure [facility] Diastolic blood 2022-11-27 16:01:00 76 mm[Hg] Unive rsity of pressure [facility] Heart rate 2022-11-27 16:01:00 60 /min [facility] Body temperature 2022-11-27 16:01:00 36.11 Luz Marina [facility] Respiratory rate 2022-11-27 16:01:00 18 /min [facility] Body height 2022-11-27 16:01:00 160 cm [facility] Body weight 2022-11-27 16:01:00 104.781 kg [facility] BMI 2022-11-27 16:01:00 40.92 kg/m2 [facility] Oxygen saturation in 2022-11-27 16:01:00 99 /min University of Arterial blood by [place] [employer] [facility] Pulse oximetry Branch Systolic blood 2022-11-27 15:06:00 109 mm[Hg] Univer sity of pressure [facility] Diastolic blood 2022-11-27 15:06:00 72 mm[Hg] Unive rsity of pressure [facility] Heart rate 2022-11-27 15:06:00 60 /min [facility] Body temperature 2022-11-27 15:06:00 36.11 Luz Marina Univ [facility] Respiratory rate 2022-11-27 15:06:00 19 /min [facility] Body height 2022-11-27 15:06:00 160 cm [facility] Body weight 2022-11-27 15:06:00 104.327 kg [facility] BMI 2022-11-27 15:06:00 40.74 kg/m2 [facility] Oxygen saturation in 2022-11-27 15:06:00 99 /min University of Arterial blood by [employer] chika Pulse oximetry Branch Systolic blood 2022-11-18 18:08:00 132 mm[Hg] Univer sity of pressure [facility] Diastolic blood 2022-11-18 18:08:00 82 mm[Hg] Unive rsity of pressure [facility] Heart rate 2022-11-18 18:08:00 73 /min [facility] Body temperature 2022-11-18 18:08:00 36.89 Luz Marina Univ ers[facility] Respiratory rate 2022-11-18 18:08:00 16 /min Univ [facility] Body weight 2022-11-18 18:08:00 104.781 kg [facility] BMI 2022-11-18 18:08:00 40.92 kg/m2 [facility] Oxygen saturation in 2022-11-18 18:08:00 96 /min University of Arterial blood by [place] [employer] Pulse oximetry Branch Systolic blood 2022-11-14 15:32:00 145 mm[Hg] Univer sity of pressure [facility] Diastolic blood 2022-11-14 15:32:00 72 mm[Hg] Unive rsity of pressure [facility] Heart rate 2022-11-14 15:32:00 55 /min [facility] Body temperature 2022-11-14 15:32:00 36.44 Luz Marina [facility] Respiratory rate 2022-11-14 15:32:00 20 /min [facility] Body height 2022-11-14 15:32:00 160 cm [facility] Body weight 2022-11-14 15:32:00 105.688 kg [facility] BMI 2022-11-14 15:32:00 41.27 kg/m2 [facility] Oxygen saturation in 2022-11-14 15:32:00 97 /min University of Arterial blood by [employer] [facility]ika Pulse oximetry Branch Systolic blood 2022-11-13 18:17:00 122 mm[Hg] Univer sity of pressure [facility] Diastolic blood 2022-11-13 18:17:00 78 mm[Hg] Unive rsity of pressure [facility] Heart rate 2022-11-13 18:17:00 67 /min [facility] Body temperature 2022-11-13 18:17:00 36.94 Luz Marina Univ [facility] Respiratory rate 2022-11-13 18:17:00 18 /min [facility] Body height 2022-11-13 18:17:00 160 cm [facility] Body weight 2022-11-13 18:17:00 105.688 kg [facility] BMI 2022-11-13 18:17:00 41.27 kg/m2 [facility] Oxygen saturation in 2022-11-13 18:17:00 99 /min University of Arterial blood by [place] [employer] [facility] Pulse oximetry [facility] Systolic blood 2022-10-31 17:16:00 157 mm[Hg] Univer sity of pressure [facility] Diastolic blood 2022-10-31 17:16:00 86 mm[Hg] Unive rsity of pressure [facility] Heart rate 2022-10-31 17:16:00 74 /min [facility] Body temperature 2022-10-31 17:16:00 36.72 Luz Marina [facility] Respiratory rate 2022-10-31 17:16:00 20 /min [facility] Body height 2022-10-31 17:16:00 160 cm [facility] Body weight 2022-10-31 17:16:00 105.235 kg [facility] BMI 2022-10-31 17:16:00 41.10 kg/m2 [facility] Oxygen saturation in 2022-10-31 17:16:00 99 /min University of Arterial blood by [place] [employer] [facility] Pulse oximetry [facility] Systolic blood 2022-10-11 00:40:00 125 mm[Hg] Univer sity of pressure [facility] Diastolic blood 2022-10-11 00:40:00 65 mm[Hg] Unive rsity of pressure [facility] Heart rate 2022-10-11 00:40:00 64 /min [facility] Respiratory rate 2022-10-11 00:40:00 18 /min Univ [facility] Oxygen saturation in 2022-10-11 00:40:00 97 /min [facility] Arterial blood by [place] [facility] Pulse oximetry [facility] Body temperature 2022-10-10 22:00:00 36.83 Luz Marina Univ [facility] Body height 2022-10-10 22:00:00 157.5 cm [facility] Body weight 2022-10-10 22:00:00 107.049 kg [facility] BMI 2022-10-10 22:00:00 43.16 kg/m2 [facility] Systolic blood 2022-10-10 20:21:00 144 mm[Hg] Univer sity of pressure [facility] Diastolic blood 2022-10-10 20:21:00 80 mm[Hg] Unive rsity of pressure [facility] Heart rate 2022-10-10 20:21:00 75 /min [facility] Body temperature 2022-10-10 20:21:00 36.78 Luz Marina [facility] Respiratory rate 2022-10-10 20:21:00 18 /min [facility] Body height 2022-10-10 20:21:00 157.5 cm [facility] Body weight 2022-10-10 20:21:00 107.106 kg [facility] BMI 2022-10-10 20:21:00 43.19 kg/m2 [facility] Oxygen saturation in 2022-10-10 20:21:00 98 /min University of Arterial blood by [facility] Pulse oximetry Branch Systolic blood 2022-10-02 20:35:00 137 mm[Hg] Univer sity of pressure [facility] Diastolic blood 2022-10-02 20:35:00 64 mm[Hg] Unive rsity of pressure [facility] Heart rate 2022-10-02 20:35:00 73 /min [facility] Body temperature 2022-10-02 20:35:00 36.11 Luz Marina [facility] Body height 2022-10-02 20:35:00 157.5 cm [facility] Body weight 2022-10-02 20:35:00 107.956 kg [facility] BMI 2022-10-02 20:35:00 43.53 kg/m2 [facility] Oxygen saturation in 2022-10-02 20:35:00 98 /min University of Arterial blood by [facility] chika Pulse oximetry Branch Systolic blood 2022-06-10 17:25:00 127 mm[Hg] Univer sity of pressure [facility] Diastolic blood 2022-06-10 17:25:00 85 mm[Hg] Unive rsity of pressure [facility] Heart rate 2022-06-10 17:25:00 63 /min [facility] Body temperature 2022-06-10 17:25:00 37 Luz Marina Univ [facility] Respiratory rate 2022-06-10 17:25:00 16 /min [facility] Body height 2022-06-10 17:25:00 157.5 cm [facility] Body weight 2022-06-10 17:25:00 101.107 kg [facility] BMI 2022-06-10 17:25:00 40.77 kg/m2 [facility] Oxygen saturation in 2022-06-10 17:25:00 99 /min [facility] of Arterial blood by [facility] Pulse oximetry Branch Systolic blood 2022-05-09 16:19:00 126 mm[Hg] Univer sity of pressure [facility] Diastolic blood 2022-05-09 16:19:00 84 mm[Hg] Unive rsity of pressure [facility] Heart rate 2022-05-09 16:19:00 60 /min [facility] Body temperature 2022-05-09 16:19:00 36.5 Luz Marina [facility] Respiratory rate 2022-05-09 16:19:00 16 /min [facility] Body height 2022-05-09 16:19:00 157.5 cm [facility] Body weight 2022-05-09 16:19:00 97.07 kg [facility] BMI 2022-05-09 16:19:00 39.14 kg/m2 [facility] Oxygen saturation in 2022-05-09 16:19:00 99 /min [facility] of Arterial blood by [facility] Pulse oximetry Branch Procedures Procedure Date / Time Performing Clinician Source Performed XR, calcaneus, 2 or 2023-01-03 00:00:00 Breanne Ni rthopedic [facility] CONSENT/REFUSAL FOR 2022-11-28 15:04:39 [facility]3] POCT URINALYSIS 2022-11-18 18:11:00 Holger Becerra [facility] MEDICAL 2022-11-06 06:01:00 Doctor Unassigned, No [facility] RELEASE/CLEARANCE FORMS [facility]3] CONSENT/REFUSAL FOR 2022-10-11 19:21:22 [facility]igned[facility]3] ASSIGNMENT OF BENEFITS 2022-10-11 19:21:07 Doctor Unassigned, No [facility] EKG-12 LEAD 2022-10-11 00:16:40 Wayne [facility] RAPID INFLUENZA A/B 2022-10-10 22:42:00 Wayne [facility] PROTHROMBIN TIME / INR 2022-10-10 22:39:00 Wayne [facility] LACTIC ACID WHOLE BLOOD 2022-10-10 22:39:00 Black [facility] TROPONIN I 2022-10-10 22:35:00 Wayne [facility] COMP. METABOLIC PANEL 2022-10-10 22:35:00 Wayne [facility] ([id number]) [facility] CBC WITH DIFF 2022-10-10 22:35:00 Wayne [facility] URINALYSIS 2022-10-10 22:35:00 Black, [facility] N-TERMINAL PRO-BNP 2022-10-10 22:35:00 Wayne [facility] CONSENT/REFUSAL FOR 2022-10-10 21:58:05 Doctor [facility]igned, [facility]3] PNEUMOCOCCAL 20 2022-10-02 21:40:38 Erich Byers [facility] CONJUGATE (PREVNAR 20) [facility] VACCINE POCT URINALYSIS 2022-06-10 17:26:00 [facility] MR BRAIN WO CONTRAST 2022-06-06 14:07:32 Marino Yuen [facility] Plan of Care Planned Activity Planned Date Details Comments Source Future Scheduled Test 2023-01-25 COVID-19 VACCINE [facility] 00:34:23 (#1) [code = COVID-19 VACCINE (#1)] Future Scheduled Test 2023-01-25 [facility] 00:34:23 malignant neoplasm of cervix (procedure) [code = 371143458] Future Scheduled Test 2023-01-25 BREAST CANCER [facility] 00:34:23 SCREENING [code = BREAST CANCER SCREENING] Future Scheduled Test 2023-01-25 COLONOSCOPY Method [facility] 00:34:23 SCREENING [code = COLONOSCOPY SCREENING] Future Scheduled Test 2023-01-25 SHINGLES VACCINES (1 [facility] 00:34:23 of 2) [code = SHINGLES VACCINES (1 of 2)] Future Scheduled Test 2023-01-25 INFLUENZA VACCINE [facility] 00:34:23 [code = INFLUENZA VACCINE] Future Scheduled Test 2023-01-25 COVID-19 VACCINE [facility] 00:34:23 (#1) [code = COVID-19 VACCINE (#1)] Future Scheduled Test 2023-01-25 [facility] 00:34:23 malignant neoplasm of cervix (procedure) [code = [id number]] Future Scheduled Test 2023-01-25 BREAST CANCER [facility] 00:34:23 SCREENING [code = BREAST CANCER SCREENING] Future Scheduled Test 2023-01-25 COLONOSCOPY Method [facility] 00:34:23 SCREENING [code = COLONOSCOPY SCREENING] Future Scheduled Test 2023-01-25 SHINGLES [facility]INES (1 [facility] 00[facility]:23 of 2) [code = SHINGLES VACCINES (1 of 2)] Future Scheduled Test 2023-01-25 INFLUENZA VACCINE [facility] 00:34:23 [code = INFLUENZA VACCINE] Future Scheduled Test 2022-11-28 COVID-19 VACCINE [facility] 10:05:23 (#1) [code = COVID-19 VACCINE (#1)] Future Scheduled Test 2022-11-28 [facility] 10:05:23 malignant neoplasm of cervix (procedure) [code = 653165251] Future Scheduled Test 2022-11-28 BREAST CANCER [facility] 10:05:23 SCREENING [code = BREAST CANCER SCREENING] Future Scheduled Test 2022-11-28 COLONOSCOPY Method [facility] 10:05:23 SCREENING [code = COLONOSCOPY SCREENING] Future Scheduled Test 2022-11-28 SHINGLES VACCINES (1 [facility] 10:05:23 of 2) [code = SHINGLES VACCINES (1 of 2)] Future Scheduled Test 2022-11-28 INFLUENZA VACCINE [facility] 10:05:23 [code = INFLUENZA VACCINE] Future Scheduled Test 2022-08-30 COVID-19 VACCINE [facility] 04:38:23 (#1) [code = COVID-19 VACCINE (#1)] Future Scheduled Test 2022-08-30 Screening for [facility] 04:38:23 malignant neoplasm of cervix (procedure) [code = 228542424] Future Scheduled Test 2022-08-30 BREAST CANCER [facility] 04:38:23 SCREENING [code = BREAST CANCER SCREENING] Future Scheduled Test 2022-08-30 COLONOSCOPY Method [facility] 04:38:23 SCREENING [code = COLONOSCOPY SCREENING] Future Scheduled Test 2022-08-30 SHINGLES VACCINES (1 [facility] 04:38:23 of 2) [code = SHINGLES VACCINES (1 of 2)] Future Scheduled Test 2022-08-30 INFLUENZA VACCINE [facility] 04:38:23 [code = INFLUENZA VACCINE] Future Scheduled Test 2022-08-[address] [facility] 05:43:33 (1 of 3 - 3-dose series) [code = HEPATITIS B VACCINES (1 of 3 - 3-dose series)] Future Scheduled Test 2022-08-16 COVID-19 VACCINE [facility] 05:43:33 (#1) [code = COVID-19 VACCINE (#1)] Future Scheduled Test 2022-08-16 Screening for [facility] 05:43:33 malignant neoplasm of cervix (procedure) [code = 506342664] Future Scheduled Test 2022-08-16 BREAST CANCER [facility] 05:43:33 SCREENING [code = BREAST CANCER SCREENING] Future Scheduled Test 2022-08-16 COLONOSCOPY [facility] 05:43:33 SCREENING [code = COLONOSCOPY SCREENING] Future Scheduled Test 2022-08-16 SHINGLES VACCINES (1 [facility] 05:43:33 of 2) [code = SHINGLES VACCINES (1 of 2)] Future Scheduled Test 2022-08-16 INFLUENZA VACCINE [facility] 05:43:33 [code = INFLUENZA VACCINE] Future Scheduled Test 2021-09-19 COVID-19 VACCINE (1) [facility] 15:48:31 [code = COVID-19 VACCINE (1)] Future Scheduled Test 2021-09-19 Hepatitis C [facility] 15:48:31 screening (procedure) [code = 880847807] Future Scheduled Test 2021-09-19 Screening for [facility] 15:48:31 malignant neoplasm of cervix (procedure) [code = 479157226] Future Scheduled Test 2021-09-19 BREAST CANCER [facility] 15:48:31 SCREENING [code = BREAST CANCER SCREENING] Future Scheduled Test 2021-09-19 COLONOSCOPY [facility] 15:48:31 SCREENING [code = COLONOSCOPY SCREENING] Future Scheduled Test 2021-09-19 SHINGLES VACCINES [facility] 15:48:31 (#1) [code = SHINGLES VACCINES (#1)] Future Scheduled Test 2021-09-19 INFLUENZA VACCINE [facility] 15:48:31 [code = INFLUENZA VACCINE] Future Scheduled Test 2021-09-19 COVID-19 VACCINE (1) [facility] 15:48:31 [code = COVID-19 VACCINE (1)] Future Scheduled Test 2021-09-19 Hepatitis C Method [facility] 15:48:31 screening (procedure) [code = 050659225] Future Scheduled Test 2021-09-19 Screening for [facility] 15:48:31 malignant neoplasm of cervix (procedure) [code = 464698647] Future Scheduled Test 2021-09-19 BREAST CANCER [facility] 15:48:31 SCREENING [code = BREAST CANCER SCREENING] Future Scheduled Test 2021-09-19 COLONOSCOPY Method [facility] 15:48:31 SCREENING [code = COLONOSCOPY SCREENING] Future Scheduled Test 2021-09-19 SHINGLES VACCINES [facility] 15:48:31 (#1) [code = SHINGLES VACCINES (#1)] Future Scheduled Test 2021-09-19 INFLUENZA VACCINE [facility] 15:48:31 [code = INFLUENZA VACCINE] Future Scheduled Test 2021-05-[address] [facility] 00:[facility]:00 (#1) [code = [facility] INFLUENZA VACCINE (#1)] Future Scheduled Test 2021-05-09 [address] V[address] [facility] 00:00:00 (#1) [code = [facility] INFLUENZA VACCINE (#1)] Future Scheduled Test 2020-09-[address] [facility] 00:00:00 (12+) [code = [facility] DEPRESSION SCREENING (12+)] Future Scheduled Test 2020-09-[address] [facility] 00:00:00 (12+) [code = [facility] DEPRESSION SCREENING (12+)] Future Scheduled Test 2019 SHINGLES VACCINES ([address] [facility] 00:00:00 of 2) [code = [facility] SHINGLES VACCINES (1 of 2)] Future Scheduled Test 2019 SHINGLES VACCINES ([address] [facility] 00:00:00 of 2) [code = [facility] SHINGLES VACCINES (1 of 2)] Future Scheduled Test [address] [facility] 00:00:00 (procedure) [code = [facility] 06188942] Future Scheduled Test [address] [facility] 00:00:00 (procedure) [code = [facility] 16419018] Future Scheduled Test 1990 [facility]:00 malignant neoplasm Medical C enter of cervix (procedure) [code = 327983776] Future Scheduled Test 1990 [facility] 00:[facility]:00 malignant neoplasm Medical C enter of cervix (procedure) [code = 670146742] Future Scheduled Test 1988 DTAP/TDAP/TD [facility] 00:00:00 VACCINES (1 - Tdap) [facility] [code = DTAP/TDAP/TD VACCINES (1 - Tdap)] Future Scheduled Test 1988 DTAP/TDAP/TD [facility] 00:00:00 VACCINES (1 - Tdap) [facility] [code = DTAP/TDAP/TD VACCINES (1 - Tdap)] Future Scheduled Test [address] [facility] 00:00:00 SCREENING [code = [facility] nt HEPATITIS C SCREENING] Future Scheduled Test 1987 [...] C enter of breast (procedure) [code = 498641634] Future Scheduled Test 1969 [facility] 00:[facility]:00 malignant neoplasm Medical C enter of colon (procedure) [code = 739188811] Future Scheduled Test 1969 Screening [facility] 00:[facility]:00 malignant neoplasm Medical C enter of breast (procedure) [code = 032707582] Future Scheduled Test 1969 [facility] 00:[facility]:00 malignant neoplasm Medical C enter of colon (procedure) [code = 756997141] Instructions [facility] Encounters Start End Encounter Admission Attending Care Care Encounter Source Date/Time Date/Time Type Type Clinicians Facility Department ID 2021-12-31 Outpatient Keyanna BOWLES [facility] SOR [id number] Univers 13:41:48 [facility]-08 Emergency [facility] [id number] Univers 23:05:31 [facility] 2021-07-07 Outpatient R LG [facility] ONOFRE [id number] Univers 18:35:26 ANA MARIA [facility] 2021-07-07 Emergency [facility] [id number] Univers 14:28:37 [facility] 2021-07-07 Emergency [facility] [id number] Univers 02:55:14 [facility] 2021-07-06 Emergency [facility] [id number] Univers 21:44:02 [facility] 2021-07-06 Emergency [facility] [id number] Univers 06:38:46 [facility] 2017-05-22 Inpatient [facility] [id number] [facility]. 16:23:00 [facility] 2023-01-03 2023-01-03 [id number] Breanne 00:00:00 00:00:00 Emily [id number] Orthop e dic Sports Medicin e 2023-01-03 2023-01-03 Erich López [facility] [place] - Ortho [id number] Breanne 00:00:00 00:00:00 Rosey Michel MD: [id number] FOG_Ofc dic [facility] [place], [place] [phone] , Ph. [phone] 2023-01-02 2023-01-02 Outpatient JOE SEGOVIA [facility] [id number] Univers 11:00:00 11:00:00 [facility] 2023-01-01 2023-01-01 Outpatient R [facility] [id number] Univers 16:00:00 16:00:00 [facility] 2022-12-19 2022-12-19 Outpatient JOE SEGOVIA [facility] [id number] Univers 10:00:00 10:00:00 [facility] 2022-12-16 2022-12-16 Outpatient Keyanna REHMAN [facility] [id number] Univers 15:00:00 15:00:00 EDNA [facility] 2022-12-12 2022-12-12 Outpatient JOE SEGOVIA [facility] [id number] Univers 11:00:00 11:00:00 [facility] 2022-11-28 2022-11-[address] [facility] ERT [id number] Univers 10:19:00 14:23:00 VIDA [facility] 2022-11-28 2022-11-28 Emergency [facility] 1.2.812.156 [id number] Univers 10:19:00 14:23:00 Vida COLIN [facility].13.10 [facility] 4[facility]2.7[facility] [id number] [place] [address] [address] 2022-11-282022-11-28 Outpatient R WILFRID [facility] [id number] Univers 11:00:00 11:00:00 MARINO chapa [facility] 2022-11-27 2022-11-27 Holger Avery [facility] 1.2.840.114 [id number] Univers 12:00:00 12:20:00 Care Unknown, Attending HEALTH 350.1.13.10 ity of [place] 4.2.7.2.686 Roger as JEANNETTE?BLEA [id number] [address] OFFICE [facility] 2022-11-27 2022-11-27 Outpatient R HERNAN [facility] [id number] Univers 12:00:00 12:00:00 HOLGER chapa [facility] 2022-11-27 2022-11-27 Nurse Becerra [facility] 1.2.840.114 [id number] Univers 10:15:00 10:35:00 Visit Unknown, Attending HEALTH 350.1.13.10 ity of [place] 4.2.7.2.686 Roger as JEANNETTE?BLEA [id number] [address] OFFICE [facility] 2022-11-27 2022-11-27 Telephone 1, [facility] 1.2.507.585 [id number] Univers 00:00:00 00:00:00 Infusion [place] 350.1.13.10 ity of Nurse [place] [id number] [address] 2022-11-18 2022-11-18 Holger Avery [facility] 1.2.840.114 [id number] Univers 13:00:00 13:20:00 Care Unknown, Attending HEALTH 350.1.13.10 ity of [place] 4.2.7.2.686 Roger as JEANNETTE?BLEA [id number] [address] OFFICE [facility] 2022-11-18 2022-11-18 Outpatient R HERNAN [facility] [id number] Univers 13:00:00 13:00:00 HOLGER chapa [facility] 2022-11-14 2022-11-14 Nurse 1, [facility] Infusion Nurse [facility] 1.2. 840.114 [id number] Univers 11:00:00 11:15:00 Visit Joe Plascencia Melindajanes COLIN 350.1.13.10 it[place] of [place] [id number] Med [address] 2022-11-14 2022-11-14 Outpatient R GABBIE JOE [facility] [id number] Univers 11:00:00 11:00:00 ity of [facility] 2022-11-13 2022-11-13 Outpatient R WILFRID [facility] [id number] Univers 12:30:00 13:08:31 MARINO ity of [facility] 2022-11-13 2022-11-13 Office [facility] 1.2.840.114 [id number] Univers 12:30:00 13:08:31 Visit Marino Colon MULTISPEC 350.1.13.10 it[place] of [place] [id number] [address] [facility] 2022-11-06 2022-11-06 Orders Doctor DVAIAN 1.2.840.114 [id number] Univers 00:00:00 00:00:00 Only Unassigned, ALVARO 350.1.13.10 ity of [place] [facility] 4.2.7.2.686 Roger as [id number] [address] 2022-11-03 2022-11-03 Refill [facility] 1.2.840.114 [id number] Univers 00:00:00 00:00:00 Marino Colon MULTISPEC 350.1.13.10 [place] [id number] [address] [facility]ES [facility]IC 2022-11-01 2022-11-01 Telephone [facility] 1.2.363.664 [id number] Univers 00:00:00 00:00:00 Marino Colon MULTISPEC 350.1.13.10 [place] [id number] [address] [facility]ES [facility]INIC 2022-10-31 2022-10-31 Nurse 1, Adc Infusion Nurse [facility] 1.2. 840.114 [id number] Univers 11:00:00 11:15:00 Visit Gabbie Joe COLIN 350.1.13.10 ity [facility] 4.2.7.2.686 [facility] [id number] [facility] [address] 2022-10-31 2022-10-31 Outpatient R GABBIEJOE [facility] [id number] Univers 11:00:00 11:00:00 ity of [facility] 2022-10-24 2022-10-24 [address] [facility] [id number] Univers 14:30:00 14:30:00 ORPHEUS ity [facility] 2022-10-16 2022-10-16 [address] [facility] [id number] Univers 15:00:00 15:00:00 [facility] 2022-10-15 2022-10-15 [facility] 1.2.840.114 [id number] Univers 00:00:00 00:00:00 Marino TINAJERO 350.1.13.10 ity of [facility] 4.2.7.2.686 [facility] [id number] [facility] AND [address] DIABETES [facility]INIC 2022-10-11 2022-10-11 [address] [facility] [id number] Univers 13:21:11 23:59:00 MARINO ity [facility] 2022-10-11 2022-10-11 [facility] 1.2.840.114 [id number] Univers 13:21:11 23:59:00 Encounter Marino COLIN 350.1.13.10 ity [facility] 4.2.7.2.686 [facility] [id number] [facility] [address] 2022-10-10 2022-10-10 Emergency X BLACK, [facility] ERT [id number] Univers 16:03:00 18:43:00 CORBY itetienne [facility] 2022-10-10 2022-10-10 Emergency [facility] 1.2.506.549 [id number] Univers 16:03:00 18:43:00 [facility] 350.1.13.10 it y of [place] [id number] [facility] [address] (CLC) 2022-10-10 2022-10-10 Urgent Provider, [facility] 1.2.840.114 [id number] Univers 13:40:00 14:00:00 Care Unknown, [facility] 350.1.13.10 ity of [place] 4.2.7.2.686 Roger as JEANNETTE?BLEA [phone] [facility] [address] MEDICAL OFFICE BUILDING 2022-10-10 2022-10-10 Outpatient R RUFINA [facility] [id number] Univers 13:40:00 13:40:00 JEAN ity [facility] 2022-10-07 2022-10-07 Outpatient R JOE PLASCENCIA [facility] [id number] Univers 00:00:00 00:00:00 ity [facility] 2022-10-04 2022-10-04 Telephone Zeeshan [facility] 1.2.840.114 [id number] Univers 00:00:00 00:00:00 Erich GALLOWAY 350.1.13.10 it y of [place] [id number] [facility] [address] 2022-10-02 2022-10-02 Telephone Order Supervisor Vtc-Lab [facility] 1.2.840.114 [id number] Univers 16:00:00 16:15:00 Visit Joe Plascencia MULTISPEC 350.1.13.1 0 [place] [id number] [facility] [address] DIAB[facility]ES [facility]IC 2022-10-02 2022-10-02 Office Erich Byers [facility] 1 .2.840.114 [id number] Univers 14:20:00 14:50:00 Visit Joe Plascencia MULTISPEC 350.1.13.1 0 [place] [id number] [facility] [address] DIAB[facility]ES [facility]INIC 2022-10-02 2022-10-02 Outpatient Keyanna PLASCENCIA, JOE [facility] [id number] Univers 14:20:00 14:20:00 ity of [facility] 2022-09-30 2022-09-30 Remigio [facility] 1.2.013.900 [id number] Univers 00:00:00 00:00:00 Marino JUÁREZPEC 350.1.13.10 ity of I[place] 4.2.7.2.686 [facility] [place] [id number] [address] DIABETES [facility] 2022-08-21 2022-08-21 Emergency EM Oyebadejo, HCACL AERS [id number] [facility] 19:48:00 21:45:00 Oluwadolapo 10 Cl [facility] 2022-08-15 2022-08-15 Outpatient Keyanna YUEN [facility] [id number] Univers 10:30:00 10:30:00 MARINO [facility] 2022-08-15 2022-08-15 Outpatient Keyanna YUEN [facility] [id number] Univers 10:30:00 10:30:00 MARINO [facility] 2022-07-28 2022-07-28 Refkristi NewellDR[facility] 1.2.840.114 [id number] Univers 00:00:00 00:00:00 Corby TINAJERO 350.1.13.10 ity of Randy IALTY 4.2.7.2.686 [facility] [place] [id number] [address] DIABETES [facility] 2022-07-07 2022-07-07 Castillo Newell [facility] 1.2.840.114 [id number] Univers 00:00:00 00:00:00 Corby TINAJERO 350.1.13.10 ity of [place] 4.2.7.2.686 [facility] [place] [id number] [address] DIABETES CLINIC 2022-06-21 2022-06-21 Castillo Yuen [facility] 1.2.840.114 [id number] Univers 00:00:00 00:00:00 Marino JUÁREZPEC 350.1.13.10 ity of [place] 4.2.7.2.686 [facility] [place] [id number] [address] DIABETES CLINIC 2022-06-10 2022-06-10 Outpatient R JN [facility] [id number] Univers 12:00:00 12:41:24 NASRA ity o f [facility] 2022-06-10 2022-06-10 Urgent [facility] 1.2.840.114 [id number] Univers 12:00:00 12:41:24 Care [facility] 350.1.13.10 [address] [facility] 4.2.7.2.686 Roger as JEANNETTE?BLEA [id number] [address] MEDICAL OFFICE BUILDING 2022-06-06 2022-06-06 Outpatient [facility] [id number] Univers 08:28:55 23:59:00 MARINO itetienne [facility] 2022-06-06 2022-06-06 [facility] 1.2.840.114 [id number] Univers 08:28:55 23:59:00 Encounter Marino Colon [facility] 350.1.13.10 ity of [place] 4.2.7.2.686 [facility] [id number] [facility] [address] 2022-06-03 2022-06-03 Telephone [facility] 1.2.161.411 [id number] Univers 00:00:00 00:00:00 Marino Colon MULTISPEC 350.1.13.10 ity of [place] 4.2.7.2.686 [facility] [place] [id number] [address] DIABETES CLINIC 2022-05-30 2022-05-30 Outpatient [facility] [id number] Univers 07:46:48 23:59:00 MARINO itetienne [facility] 2022-05-22 2022-05-22 Telephone [facility] 1.2.517.208 [id number] Univers 00:00:00 00:00:00 Marino Colon MULTISPEC 350.1.13.10 ity of [place] 4.2.7.2.686 [facility] [place] [id number] [address] DIABETES CLINIC 2022-05-15 2022-05-15 Telephone [facility] 1.2.315.836 [id number] Univers 00:00:00 00:00:00 Marino Colon MULTISPEC 350.1.13.10 it[place] of [place] [id number] [address] DIABETES CLINIC 2022-05-10 2022-05-10 Telephone Order Supervisor Román, [facility] 1.2.8 40.114 [id number] Univers 10:30:00 10:45:00 Visit Marino Yuen [place] 350.1.13.10 it[place] of [place] 4.[place].2.[place] [facility] [id number] [address] 2022-05-10 2022-05-10 Outpatient R WILFRID [facility] [id number] Univers 10:30:00 10:30:00 [facility] 2022-05-10 2022-05-10 Outpatient R WILFRID [facility] [id number] Univers 10:30:00 10:30:00 [facility] 2022-05-09 2022-05-09 Outpatient R WILFRID [facility] [id number] Univers 11:00:00 12:04:38 MARINO ity [facility] 2022-05-09 2022-05-09 Office [facility] 1.2.840.114 [id number] Univers 11:00:00 12:04:38 Visit Marino TINAJERO 350.1.13.10 ity of [place] 4.2.7.2.686 [facility] [place] [id number] [address] DIABETES CLINIC 2022-05-09 2022-05-09 Outpatient R WILFRID [facility] [id number] Univers 11:00:00 11:00:00 [facility] 2022-05-05 2022-05-05 Refill [facility] 1.2.840.114 [id number] Univers 00:00:00 00:00:00 Marino Colon MULTISPEC 350.1.13.10 [place] [id number] [facility] AND [address] DIABETES CLINIC 2022-05-04 2022-05-04 [facility] 1.2.840.114 [id number] Univers 00:00:00 00:00:00 Marino Colon MULTISPEC 350.1.13.10 [place] [id number] [facility] AND [address] DIABETES CLINIC 2022-05-03 2022-05-03 [facility] 1.2.840.114 [id number] Univers 00:00:00 00:00:00 Marino Colon MULTISPEC 350.1.13.10 it[place] of [place] [id number] [address] DIABETES CLINIC 2022-04-29 2022-04-29 Patient [facility] 1.2.840.114 [id number] Univers 00:00:00 00:00:00 Secure Msg Marino Colon MULTISPEC 350.1.13.10 [place] [id number] [facility] AND [address] DIABETES CLINIC 2022-04-15 2022-04-15 Outpatient R RUPERT [facility] [id number] Univers 12:00:00 12:34:59 OMAYEMI ity of [facility] 2022-04-15 2022-04-15 Urgent Lion Emery [facility] 1.2.840. 114 [id number] Univers 12:00:00 12:34:59 [facility] 350.1.13.[address] [facility] 4.2.7.2.686 Roger as JEANNETTE?BLEA [id number] [place] [address] MEDICAL OFFICE BUILDING 2022-04-08 2022-04-08 Outpatient Keyanna YUEN [facility] [id number] Univers 09:00:00 09:00:00 MARINO ity of [facility] 2022-04-08 2022-04-08 Outpatient Keyanna YUEN [facility] [id number] Univers 09:00:00 09:00:00 MARINO chapa [facility] 2022-04-08 2022-04-08 Outpatient Keyanna [facility] [id number] [employer] 09:00:00 09:00:00 MARINOBEN chapa [facility] 2022-04-08 2022-04-08 Outpatient Keyanna [facility] [id number] [employer] 09:00:00 09:00:00 MARINO [facility] 2022-03-27 2022-03-27 Orders Doctor DAVIAN [id number] Univers 00:00:00 00:00:00 Only Unassigned, ALVARO 350.1.13.10 ity of [facility] 4.2.7.2.686 Roger as [id number] [address] 2022-03-25 2022-03-25 [facility] [id number] Univers 00:00:00 00:00:00 Marino JUÁREZPEC 350.1.13.10 [place] [id number] [address] [facility] 2022-03-24 2022-03-24 Castillo Newell [facility] [id number] Univers 00:00:00 00:00:00 Corby TINAJERO 350.1.13.10 ity [place] [id number] [address] [facility] 2022-03-08 2022-03-08 Outpatient Keyanna [facility] [id number] Univers 16:00:00 16:00:00 EDNA chapa [facility] 2022-03-08 2022-03-08 Outpatient Keyanna [facility] [id number] Univers 16:00:00 16:00:00 EDNA chapa [facility] 2022-03-04 2022-03-04 Outpatient Keyanna YUEN [facility] [id number] Univers 00:00:00 00:00:00 MARINO chapa [facility] 2022-03-04 2022-03-04 Outpatient R WILFRID [facility] [id number] Univers 00:00:00 00:00:00 MARINOBEN chapa [facility] 2022-02-27 2022-02-27 Ancillary Jolene Levine [facility] 1.2.840. 114 [id number] Univers 08:45:00 09:30:00 Visit Edna Rehman Catherine COLIN 350.1.13.10 it[place] [id number] [place] dical NAL 179 [facility] 2022-02-22 2022-02-22 Emergency EM Bharti, HCACL HCACL [id number] [facility] 11:32:00 14:06:00 Corby [id number] [facility] 2022-02-22 2022-02-22 Emergency EM Bharti, HCACL AERS [id number] [facility] 11:32:00 14:06:00 Corby 30 [facility] 2022-02-22 2022-02-22 [address] [facility] [id number] Univers 13:45:00 13:45:00 EDNA chapa [facility] 2022-02-14 2022-02-14 Ancillary Yelena Schaffer [facility] 1.2. 840.114 [id number] Univers 13:45:00 14:30:00 Visit Edna Rehman 350.1.13.10 it[place] [id number] Wa dical NAL 179 [facility] 2022-02-11 2022-02-11 Ancillary Natalie Hsu [facility] 1 .2.840.114 [id number] Univers 08:45:00 09:30:00 Visit Edna Rehman 350.1.13.10 it[place] [id number] Wa dical NAL 179 [facility] 2022-02-05 2022-02-05 Ancillary Michelle Levine [facility] 1.2.840 .114 [id number] Univers 13:00:00 13:45:00 Visit Edna Rehman 350.1.13.10 [place] [id number] Wa dical NAL 179 [facility] 2022-02-01 2022-02-01 Outpatient R ORI [facility] [id number] Univers 14:30:00 16:49:25 EDNA ity of [facility] 2022-02-01 2022-02-01 Ancillary Michelle Levine [facility] 1.2.840 .114 [id number] Univers 14:30:00 15:15:00 Visit Edna Rehman 350.1.13.10 it[place] [id number] Wa dical NAL 179 [facility] 2022-02-01 2022-02-01 Patient Wilfrid [facility] 1.2.840.114 [id number] Univers 00:00:00 00:00:00 Secure Msg Marino Colon MULTISPEC 350.1.13.10 [place] [id number] [facility] [place] [address] [facility] 2022-01-28 2022-01-28 Ancillary Sydnie Shaw [facility] 1.2.84 0.114 [id number] Univers 13:00:00 13:45:00 Visit Edna Rehman 350.1.13.10 [place] [id number] Wa dical NAL 179 [facility] 2022-01-28 2022-01-28 Orders Doctor DAVIAN 1.2.840.114 [id number] Univers 00:00:00 00:00:00 Only Unassigned, ALVARO 350.1.13.10 ity of [place] [facility] 4.2.7.2.686 Roger as [id number] [facility] [address] 2022-01-18 2022-01-18 Inpatient Eulalia BlackTO MAS Y000 [id number] [facility] 05:50:00 17:53:00 30 [facility] 2022-01-01 2022-01-01 Outpatient Eulalia Black HCACL LABO [id number] [facility] 16:46:00 16:46:00 83 [facility] 2022-01-01 2022-01-01 Outpatient Eulalia Black HCAWU REFE [id number] [facility] 14:24:00 14:24:00 17 [facility] 2021-12-27 2021-12-27 [facility]phone [facility] 1.2.302.784 [id number] Univers 00:00:00 00:00:00 Chase Florence SPECIALTY 350.1.13.10 it[place] AT [id number] Wa juve MARKOEtienne 198 [facility] 2021-12-26 2021-12-26 Refill [facility] 1.2.840.114 [id number] Univers 00:00:00 00:00:00 Marino Colon MULTISPEC 350.1.13.10 ity of [place] 4.2.7.2.686 [facility] [place] [id number] [address] [facility] 2021-12-19 2021-12-19 Patient [facility] 1.2.840.114 [id number] Univers 00:00:00 00:00:00 Secure Msg Marino Colon MULTISPEC 350.1.13.10 ity of [place] 4.2.7.2.686 [facility] [place] [id number] [address] [facility] 2021-12-14 2021-12-14 Outpatient Keyanna BOWLES [facility] [id number] Univers 15:50:00 17:14:37 CHASE chapa [facility] 2021-12-14 2021-12-14 Office [facility] 1.2.840.114 [id number] Univers 15:50:00 17:14:37 Visit Chase [place] SPECIALTY 350.1.13.10 ity of CARE 4.2.7.2.686 [facility] CENTER AT [id number] Wa randellmirtha ZHUEtienne 198 [facility] 2021-12-07 2021-12-07 Outpatient Keyanna BOWLES [facility] [id number] Univers 11:16:01 23:59:00 CHASE chapa [facility] 2021-12-07 2021-12-07 Hospital [facility] 1.2.840.114 [id number] Univers 11:16:01 23:59:00 Encounter Chase RESENDIZ 350.1.13.10 ity of [facility] 4.2.7.2.686 [facility] CENTER AT [id number] Wa dicmirtha VICTORY 804 [facility] 2021-12-07 2021-12-07 Outpatient KOJO, HCACL LABO [id number] [facility] 19:02:00 19:02:00 Neighbors 76 Radha [facility] 2021-12-07 2021-12-07 Outpatient KOJO, HCAKW LABO [id number] [facility] 18:31:00 18:31:00 Neighbors 21 [facility] 2021-12-04 2021-12-04 [address] [facility] [id number] Univers 13:45:00 13:45:00 [facility] 2021-12-04 2021-12-04 Ancillary Yelena Schaffer [facility] 1.2. 840.114 [id number] Univers 08:00:00 08:45:00 Visit Edna Rehman 350.1.13.10 ity [facility] 4.2.7.2.686 [facility] [id number] Wa dicmirtha NAL 179 [facility] 2021-12-04 2021-12-04 Outpatient R ORI [facility] [id number] Univers 08:00:00 08:00:00 EDNA [facility] 2021-12-04 2021-12-04 [address] [facility] [id number] Univers 08:00:00 08:00:00 EDNA [facility] 2021-12-02 2021-12-02 Outpatient Keyanna ECHEVARRIA [facility] [id number] Univers 11:20:00 11:20:00 WILIAN [facility] 2021-12-01 2021-12-01 Outpatient R RUFINA [facility] [id number] Univers 16:20:00 16:20:00 JEAN [facility] 2021-12-01 2021-12-01 Outpatient R RUFINA [facility] [id number] Univers 16:20:00 16:20:00 JEAN chapa [facility] 2021-11-21 2021-11-21 Ancillary Bola Natalie Mcintyre [facility] 1 .2.840.114 [id number] Univers 10:15:00 16:55:48 Visit Edna Rehman 350.1.13.10 it[place] [id number] Wa juve VERMA 179 [facility] 2021-11-21 2021-11-21 Outpatient R ORI [facility] [id number] Univers 13:00:00 13:00:00 EDNADELROY chapa [facility] 2021-11-21 2021-11-21 [address] [facility] [id number] Univers 10:15:00 10:15:00 EDNA [facility] 2021-11-19 2021-11-19 Outpatient Key[address] [facility] [id number] Univers 15:51:24 23:59:00 [facility] 2021-11-19 2021-11-19 [facility] 1.2.840.114 [id number] Univers 15:50:00 23:59:00 Encounter Chase A SPECIALTY 350.1.13.10 [place] AT [id number] Wa juve ZHUY 809 [facility] 2021-11-19 2021-11-19 Office [facility] 1.2.840.114 [id number] Univers 15:20:00 17:06:26 Visit Chase A SPECIALTY 350.1.13.10 [place] AT [id number] Wa juve VICTORY 198 [facility] 2021-11-19 2021-11-19 Outpatient Key[address] [facility] [id number] Univers 15:20:00 17:06:26 CHASE garethetienne [facility] 2021-11-19 2021-11-19 Outpatient Keyanna BOWLES [facility] [id number] Univers 15:20:00 15:20:00 CHASE chapa of [facility] 2021-11-18 2021-11-18 Outpatient R LAMONT [facility] [id number] Univers 18:06:06 23:59:00 RENE jackson [facility] 2021-11-18 2021-11-18 Outpatient [facility] [id number] Univers 18:06:06 23:59:00 RENE chapa o f [facility] 2021-10-15 2021-10-15 Telephone [facility] 1.2.293.564 [id number] Univers 00:00:00 00:00:00 Marino TINAJERO 350.1.13.10 [place] [id number] [facility] AND [address] [facility] 2021-10-09 2021-10-09 Outpatient R [facility] [id number] Univers 08:15:00 09:03:47 MARINO chapa [facility] 2021-10-09 2021-10-09 Telephone Order Supervisor 2, Adc Lab [facility] 1.2.840.114 [id number] Univers 08:15:00 08:30:00 Visit Marino Yuen 350.1.13.10 ity of [place] [id number] Wa [address] 2021-10-09 2021-10-09 Orders Doctor DAVIAN 1.2.840.114 [id number] Univers 00:00:00 00:00:00 Only Unassigned, ALVARO 350.1.13.10 ity of [place] [facility] 4.2.7.2.686 Roger as [id number] [facility] [address] 2021-10-08 2021-10-08 Office [facility] 1.2.840.114 [id number] Univers 09:30:00 10:25:30 Visit Marino TINAJERO 350.1.13.10 [place] [id number] [facility] AND [address] [facility] 2021-10-08 2021-10-08 Outpatient Keyanna YUEN [facility] [id number] Univers 09:30:00 10:25:30 MARINO ity [facility] 2021-10-08 2021-10-08 Outpatient Keyanna YUEN [facility] [id number] Univers 09:30:00 09:30:00 MARINO itetienne [facility] 2021-10-05 2021-10-05 Castillo Parks [facility] 1.2.840.114 [id number] Univers 00:00:00 00:00:00 Jakob SPECIALTY 350.1.13.10 ity of [place] AT [id number] Wa randell[address] 2021-10-03 2021-10-03 Castillo Parks [facility] 1.2.840.114 [id number] Univers 00:00:00 00:00:00 Jakob SPECIALTY 350.1.13.10 it[place] of [place] AT [id number] Wa juve [address] 2021-10-03 2021-10-03 Castillo [facility] 1.2.840.114 [id number] Univers 00:00:00 00:00:00 Marino D MULTISPEC 350.1.13.10 [place] [id number] [address] [facility] 2021-09-26 2021-09-26 Castillo Yuen [facility] 1.2.840.114 [id number] Univers 00:00:00 00:00:00 Marino D MULTISPEC 350.1.13.10 [place] [id number] [address] [facility] 2021-08-24 2021-08-24 Outpatient Keyanna YUEN [facility] [id number] Univers 15:00:00 15:00:00 MARINO chapa [facility] 2021-08-22 2021-08-22 Outpatient Keyanna YUEN [facility] [id number] Univers 08:30:00 08:30:00 MARINO chapa [facility] 2021-08-22 2021-08-22 Outpatient R WILFRID [facility] [id number] Univers 08:00:00 08:00:00 MARINO chapa [facility] 2021-08-20 2021-08-20 Castillo Nesbitt [facility] 1.2.851.382 [id number] Univers 00:00:00 00:00:00 Jakob PRIMARY 350.1.13.10 it y of [place] [id number] Wa dical [address] 2021-08-20 2021-08-20 Refill Collin Beasley [facility] 1.2.840.114 [id number] Univers 00:00:00 00:00:00 Nick MULTISPEC 350.1.13.10 [place] [id number] [facility] AND [address] [facility] 2021-08-20 2021-08-20 Refkristi ParksDR[facility] 1.2.840.114 [id number] Univers 00:00:00 00:00:00 Jakob SPECIALTY 350.1.13.10 it[place] of [place] [id number] Wa dicde VICTORY 072 [facility] 2021-06-27 2021-06-27 Castillo [facility] 1.2.840.114 [id number] Univers 00:00:00 00:00:00 Marino Colon MULTISPEC 350.1.13.10 [place] [id number] [facility] AND [address] [facility] 2021-06-15 2021-06-15 Refkristi [facility] 1.2.840.114 [id number] Univers 00:00:00 00:00:00 Vipin C PRIMARY 350.1.13.10 i ty [place] [id number] Wa dical [address] 2021-06-10 2021-06-10 Outpatient PRIV PRIV [id number] 3-2 [facility] 00:00:00 00:00:00 [id number] Medica l 2021-06-10 2021-06-10 Outpatient PRIV PRIV [id number] 3-2 [facility] 00:00:00 00:00:00 [id number] Medica l 2021-05-18 2021-05-18 Castillo Parks [facility] 1.2.840.114 [id number] Univers 00:00:00 00:00:00 Jakob SPECIALTY 350.1.13.10 ity of [place] CARE 4.2.7.2.686 [facility] AT [id number] Wa juve ARREDONDO 2 [facility] 2021-05-13 2021-05-13 Refkristi Yuen [facility] 1.2.840.114 [id number] Univers 00:00:00 00:00:00 Marino Colon MULTISPEC 350.1.13.10 ity of [place] 4.2.7.2.686 [facility] [id number] [facility] AND [address] [facility] 2021-05-08 2021-05-08 Office Corby Iraheta [facility] 1.2.840.114 [id number] Univers 14:02:16 14:32:16 Visit Peace Hilario MULTISPEC 350.1.13.10 ity of [place] 4.2.7.2.68 6 [facility] [id number] [facility] AND [address] [facility] 2021-05-08 2021-05-08 Outpatient R [facility] [id number] Univers 14:00:00 14:00:00 ity of [facility] 2021-03-01 2021-03-01 Outpatient R WILFRID [facility] [id number] Univers 00:00:00 00:00:00 MARINO chapa [facility] 2021-02-23 2021-02-23 Outpatient Keyanna YUEN [facility] [id number] Univers 16:30:00 16:30:00 MARINO chapa [facility] 2021-02-22 2021-02-22 Outpatient Keyanna GASTELUM [facility] [id number] Univers 09:00:00 09:00:00 [facility] 2021-01-03 2021-01-03 Outpatient R MEGA, [facility] [id number] Univers 19:00:00 19:00:00 DAVIAN [facility] 2020-11-27 2020-11-27 Outpatient R PAULA NUNO [facility] [id number] Univers 14:00:00 14:00:00 [facility] 2020-10-19 2020-10-19 Outpatient R WILFRID [facility] [id number] Univers 08:00:00 08:00:00 MARINO [facility] 2020-10-18 2020-10-18 Outpatient R WILFRID [facility] [id number] Univers 16:30:00 16:30:00 MARINO [facility] 2020-10-11 2020-10-11 [facility] [id number] Univers 09:30:00 09:30:00 [facility] 2020-10-01 2020-10-01 Outpatient R CHINO, [facility] [id number] Univers 14:30:00 14:30:00 TRACEY [facility] 2020-09-13 2020-09-13 Outpatient R CHARLY [facility] [id number] Univers 09:30:00 09:30:00 [facility] 2020-08-22 2020-08-[address] [facility] [id number] Univers 16:20:00 16:20:00 TOM [facility] 2020-08-20 2020-08-20 Outpatient R WALE [facility] [id number] Univers 09:20:00 09:20:00 WILIAN [facility] 2020-08-16 2020-08-16 Outpatient R [facility] [id number] Univers 09:50:00 09:50:00 [facility] 2020-06-23 2020-06-23 Outpatient R VI, [facility] [id number] Univers 13:15:00 13:15:00 JOLENE [facility] 2020-06-04 2020-06-04 Outpatient R [facility] [id number] Univers 15:15:00 15:15:00 [facility] 2020-06-04 2020-06-04 Outpatient R UNKNOWN, [facility] [id number] Univers 14:15:00 14:15:00 ATTENDING [facility] 2020-05-01 2020-05-01 Outpatient R CARITO [facility] [id number] Univers 15:10:00 15:10:00 JAKOB [facility] 2020-03-06 2020-03-06 Outpatient R MARIA ELENAKIP [facility] [id number] Univers 09:50:00 09:50:00 ERMIAS etienne [facility] 2020-01-21 2020-01-21 Outpatient R NESBITT, [facility] [id number] Univers 10:15:00 10:15:00 JAKOB etienne [facility] 2020-01-19 2020-01-19 Outpatient R COLLIN BEASLEY [facility] [id number] Univers 11:30:00 11:30:00 [facility] 2019-12-23 2019-12-23 Outpatient R GALE COLLIN [facility] [id number] Univers 10:00:00 10:00:00 [facility] 2019-12-22 2019-12-22 Outpatient R NESBITT, [facility] [id number] Univers 08:15:00 08:15:00 JAKOB [facility] 2019-12-09 2019-12-09 Outpatient R CARITO [facility] [id number] Univers 15:45:00 15:45:00 JAKOB [facility] 2019-12-08 2019-12-08 Outpatient R TJ, [facility] [id number] Univers 08:00:00 08:00:00 JOMAR [facility] 2019-12-07 2019-12-07 Outpatient R BELLA [facility] [id number] Univers 21:15:00 21:15:00 JAKOB [facility] 2019-12-06 2019-12-06 Outpatient R [facility] [id number] Univers 19:00:00 19:00:00 [facility] 2019-11-30 2019-11-30 Outpatient R VI [facility] [id number] Univers 09:15:00 09:15:00 JOLENE [facility] 2019-11-23 2019-11-23 Outpatient Keyanna LEBRON [facility] [id number] Univers 13:15:00 13:15:00 JOLENE etienne [facility] 2019-09-02 2019-09-05 Inpatient X ABU [facility] JODI [id number] Univers 16:02:51 10:50:00 CHICASARINAsammi renetta CHRISTELBERNIE [facility] 2019-01-11 2019-01-11 Emergency E MHBL MHBL [id number] MHBL 23:33:00 23:33:00 2017-12-23 2017-12-23 [id number] 15:29:00 15:29:00 MARINELLI [facility] 2017-07-30 2017-07-30 Outpatient C [facility] [id number] 12:09:00 12:09:00 [facility] 2017-07-09 2017-07-09 Outpatient [facility] MED [id number] 00:01:00 00:01:00 [facility] 2017-06-17 2017-06-17 Outpatient [facility] MED [id number] 18:46:00 18:46:00 [facility] 2017-06-08 2017-06-08 Outpatient [facility] MED [id number] 00:01:00 00:01:00 [facility] 2017-06-06 2017-06-06 Outpatient [facility] MED [id number] 21:11:00 21:11:00 [facility] Results Test Description Test Time Test Comments [...] 3267) cloudy Lab Interpretation (test code = 75750-4) [facility]normal [facility] [id number] 23:18:52 Test Item Value Reference Range Interpretation Comments TROPONIN I (test code = 0.005 ng/mL <=0.034 [id number]) ROBERTA (test code = ROBERTA) Reference (Normal) [...] biotin. Lab Interpretation Normal (test code = 82724-6) [facility] [id number] 23:18:52 Test Item Value Reference Range Interpretation Comments NT-proBNP (test code = 113 pg/mL <=125 4805215990) ROBERTA (test code = ROBERTA) Biotin has been reported to cause a negative bias, interpret results relative to patient's use of biotin. Lab Interpretation (test Normal code = 13256-3) [facility] METABOLIC PANEL ([id number])2022-10-10 23:08:12 Test Item Value Reference Range Interpretation Comments NA (test code = 140 mmol/L 135-145 5132769943) K (test code = 5.0 mmol/L 3.5-5.0 2846631284) CL (test code = 106 mmol/L 98-108 5655370342) CO2 TOTAL (test code = 30 mmol/L 23-31 7428233694) AGAP (test code = 4 2-16 8232103812) BUN (test code = 8 mg/dL 7-23 7506086628) GLUCOSE (test code = 198 mg/dL 70-110 H 5498172422) CREATININE (test code = 0.61 mg/dL 0.50-1.04 6311156790) TOTAL BILI (test code = 0.4 mg/dL 0.1-1.1 8694230886) CALCIUM (test code = 8.4 mg/dL 8.6-10.6 L 9403441214) T PROTEIN (test code = 6.6 g/dL 6.3-8.2 7273965926) ALBUMIN (test code = 3.6 g/dL 3.5-5.0 3413824633) ALK PHOS (test code = 108 U/L 34-122 3199279083) ALTv (test code = 18 U/L 5-35 1742-6) AST(SGOT) (test code = 30 U/L 13-40 6563777351) eGFR (test code = 102.6 mL/min/1.73m2 2556278584) ROBERTA (test code = ROBERTA) Association of [...] tests). Lab Interpretation Abnormal (test code = 43557-2) [facility] HospitalPROT[facility] TIME / [id number] 23:01:52 Test Item Value Reference Range Interpretation [...] tions. Lab Interpretation (test Normal code = 88368-4) [facility] WITH [id number] 22:56:30 Test Item Value Reference Range Interpretation Comments WBC (test code = 5.66 See_Comment [Automated 6690-2) message] The sy stem which generated this result transmitted reference range : 4.30 - 11.10 10*3/?L. The reference range was not used to interpret this result as normal/abnormal . RBC (test code = 4.01 See_Comment [Automated 119-8) message] The sy stem which generated this [...] RDW-SD (test code = 48.6 fL 39.0-49.9 11810-6) RDW-CV (test code = 16.8 % 12.0-15.5 H 788-0) PLT (test code = 249 See_Comment [Automated 777-3) message] The sy stem which generated this result transmitted reference range : 166 - 358 10*3/ ?L. The reference r norbert was not used to interpret this result as normal/abnormal . MPV (test code = 11.4 fL 9.5-12.9 27386-8) NRBC/100 WBC (test 0.0 See_Comment [Automat ed code = [id number]) message] The system which generated this result transmitted reference range : 0.0 - 10.0 /100 WBCs. The refer ence range was not u sed to interpret th is result as normal/abnormal . NRBC x10^3 (test code See_Comment [Auto mated = [id number]) message] The s ystem which generated this result transmitted reference range : 10*3/?L. The reference range was not used to interpret this result as normal/abnormal . GRAN MAT (NEUT) % 53.2 % (test code = 770-8) IMM GRAN % (test code 0.00 % = [id number]) LYMPH % (test code = 33.9 % 736-9) MONO % (test code = 9.4 % 5905-5) EOS % (test code = 3.0 % 713-8) BASO % (test code = 0.5 % 706-2) GRAN MAT x10^3(ANC) 3.01 10*3/uL 1.88-7.09 (test code = [id number]) IMM GRAN x10^3 (test 0.00-0.06 code = [id number]) LYMPH x10^3 (test code 1.92 10*3/uL 1.32-3.29 = 731-0) MONO x10^3 (test code 0.53 10*3/uL 0.33-0.92 = 742-7) EOS x10^3 (test code = 0.17 10*3/uL 0.03-0.39 711-2) BASO x10^3 (test code 0.03 10*3/uL 0.01-0.07 = 704-7) Lab Interpretation Abnormal (test code = 67073-8) [facility] [id number] 22:55:04 Test Item Value Reference Range Interpretation Comments LACTIC ACID (test code = 1.12 mmol/L 0.50-2.20 [id number]) Lab Interpretation (test code = Normal 10218-2) [facility] [id number] 00:07:00 Test Item Value Reference Range Interpretation [...] = MX#) 0.5 k/mm3 0.1-0.8 N TROPONIN-I [id number] 20:42:00 Test Item Value Reference Range Interpretation Comments TROPONIN-I RAPID < 0.05 <0.05 Performed b y certified (test code = automatic serging machine operator at [facility] TROPIRAP) Ctr"Point of Ca re test critical value notification anddocumentatio n is completed by nursing sunday f. Negative <0.05 ng/mLPosi tive >/= 0.05 [...] identification of temporalchanges in troponin levels. LIVER [id number] 20:33:00 Test Item Value Reference Range Interpretation Comments TOTAL PROTEIN (test code 7.5 GM/DL 5.0-8.0 N Per formed by = PROT) certified opera tor at [facility] ed Ctr ALBUMIN (test code = [...] 34 UNITS/L 25-125 N ALICIA) BASIC METABOLIC [id number] 20:21:00 Test Item Value Reference Range Interpretation [...] POCGLU) 93 MG/DL 70-110 N UA DIPSTICK [id number] 20:15:00 Test Item Value Reference Range Interpretation Comments UA GLUCOSE DIPSTIC POC NEGATIVE NEGATIVE (test code = GLUUP) UA BILIRUBIN DIPSTICK NEGATIVE NEGATIVE (test code = BILU) UA KETONE DIPSTICK POC NEGATIVE NEGATIVE (test code = KETUP) UA SPECIFIC GRAVITY (test 1.020 1.005-1.030 N code = SGU) UA BLOOD DIPSTIC POC NEGATIVE NEGATIVE Perform ed by (test code = BLUP) certified automatic serging machine operator at [facility] UA PH DIPSTIC POC (test 6 5.0-7.0 N code = PHUP) UA PROTEIN DIPSTICK POC NEGATIVE NEGATIVE (test code = DPROUP) UA UROBILINIOGEN QUAL 1+ 0.2-1.0 A (test code = UROQL) UA NITRITE DIPSTICK POC NEGATIVE Negative (test code = NITUP) UA LEUKOCYTE ESTERASE W Negative NEGATIVE REFLEX (test code = LEUUR) - CT ABD PELVIS W/O [id number] 00:00:00 [facility] 1970 Sex: FName: KAT AGUILAR FSED : 1970 Age/S: 52 / F [address] [facility] Unit #: [id number] Loc: Malik [place] [address] Phys: Josefa Suarez MD Acct: [id number] Dis Date: Status: YARON PHONE #: Exam Date: 08/21/20222015 FAX #: Reason: r flank and epigastric pain EXAMS: CPT CODE:[id number] CT ABD PELVIS W/O CONT 50316 PROCEDURE INFORMATION: Exam: CT Abdomen And Pelvis [...] automated exposure control; mA and/or kV adjustment perpatient size (includes targeted exams where dose is [...] BILIARY: The patient is status post cholecystectomy. 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 Increased gas and stool [...] by: Daniel Morrison M.D. CC: Collin Beasley MD;Josefa Suarez MD Technologist:Marisa Kilne RT(R)(CT) CTDI: DLP: Trnscb Date/Time: 08/21/2022 (2111) [place] Orig Print D/T: S: 08/21/2022 (2111) PAGE 2 Signed ReportPOCT URINALYSIS W SPECIFIC [id number] 17:27:00 Test Item Value Reference Range Interpretation [...] controls Lab Interpretation Abnormal (test code = 50305-8) [facility]- XR KNEE 1 OR 2 V [id number] 15:41:00 [facility] 1970 Sex: F Patient Name: KAT AGUILAR Unit No: [id number] EXAMS: CPT CODE: [id number] XR KNEE 1 OR 2 V LT [address]7977 IMAGES PROVIDED: 2 FINDINGS: Postoperative changes from left total knee arthoplasty demonstrated without evidence of immediate complication. No acute fracture is visualized. IMPRESSION: Postoperativeexam as above. at 1541 Reported and signed by: Lexa Benitez M.D. CC: Eulalia Hilario MD Technologist: SHELIA SILVA (RT.R) Transcribed D/ (1541) [email or web address] NAME: KAT AGUILAR [address] [facility] PHYS: DONTRELL. Eulalia Hilario MD : 1970 AGE: 51 SEX: F [place], [place] [address] ACCT NO: [id number] LOC: Y.O20 A PHONE #: [phone] EXAM DATE: 01/18/2022 STATUS: ADM IN FAX #: [phone] RAD #: D/C DT PAGE 1 Signed Report Patient Name: KAT AGUILAR Unit No: [id number] EXAMS: CPT CODE: [id number] XR KNEE 1 OR 2 [place] [address] <Continued> Orig Print D/T: S: 01/18/2022 (1545) [facility] NAME: KAT AGUILAR [address] [facility] PHYS: PATAN.06 - Eulalia Hilario MD : 1970 AGE: 51 SEX: F [place], [place] [address] LOC: Y.O20 A PHONE #: [phone] EXAM DATE: 01/18/2022 STATUS: ADM IN FAX #: [phone] RAD #: D/C DT PAGE 2 Signed [...] for these patients.DONE A T: [facility] [address] [place], [place] [address] GLYCOSYLATED HEMOGLOBIN (HA1C)2022-01-01 16:16:00 Test [...] be considered for these patients. COMPREHENSIVE METABOLIC [id number] 13:37:00 Test Item Value Reference Range Interpretation [...] RATE (test code = GFR) mL/mi n/1.73 e4Icqyfhqjm Range:Healthy Adults >90 mL/min/1.73 m2 For Chronic [...] N TOTAL (test code = ALKP) PROTHROMBIN [id number] 13:18:00 Test Item Value Reference Range Interpretation [...] BLOOD, PT every other day NTHROMBOPLASTIN TIME [id number] 13:18:00 Test Item Value Reference Range Interpretation [...] 0-0 N code = NRBC) Basic Metabolic [id number] 06:39:55 Test Item Value Reference Range Interpretation [...] 8.9 mg/dL 8.3-10.5 Calcium Level) Basic Metabolic [id number] 06:39:55 Test Item Value Reference Range Interpretation [...] National Kidney Foundation, http://nkdep.ni h.gov Basic Metabolic Tnepu9437-40-00 06:39:55 Test Item Value Reference Range Interpretation [...] Foundation, http://nkdep.ni h.gov Complete Blood Count with Wlmupzrqjuga2156-37-22 06:13:20 Test Item Value Reference Range Interpretation [...] code = IPF) 0 % N Automated Muscctxkbtau5398-62-55 06:13:20 Test Item Value Reference Range Interpretation Comments Neutro Auto (test code = Neutro 52.5 % 36.0-70.0 Auto) Lymph Auto (test code = Lymph Auto) 37.2 % 12.0-44.0 [place] Auto (test code = [place] Auto) 7.6 % 0.0-11.0 Eos, Auto (test code = Eos, Auto) 2.1 % 0.0-7.0 Basophil Auto (test code = Basophil 0.4 % 0.0-2.0 Auto) Neutro Absolute (test code = Neutro 2.5 x10 1.6-7.4 Absolute) Lymph Absolute (test code = Lymph 1.80 x10 .50-4.60 Absolute) [place] Absolute (test code = [place] .37 x10 .00-1.20 Absolute) Eos Absolute (test code = Eos 0.10 x10 0.00-0.74 Absolute) Baso Absolute (test code = Baso 0.02 x10 0.00-0.21 Absolute) IG [id number] 06:13:20 Test Item Value Reference Range Interpretation Comments IG (test code = IG) 0.2 % 0.0-5.0 IG Abs (test code = IG Abs) [address] Abdomen and Pelvis w/o [id number] 19:36:37Patient: KAT AGUILAR Date/Time08/11/2019 18:35 CSTReason for Examabd pain s/p g astric bypass;Other (please specify)ReportCT SCAN OF THE ABDOMEN AND PELVIS WITHOUT CONTRASTDictation Location: [id number] HISTORY: Abdominal pain status post gastric bypassTECHNIQUE: [...] Signature): 08/11/2019 7:36 pmXR Chest 1 View [id number] 18:54:38Patient: KAT AGUILAR Date/Time08/11/2019 18:39 CSTReason for ExamChest painReportCHEST X-RAY 1 VIEWDictation Location: [id number] HISTORY: Chest painTechnique:A single frontal view of [...] Maria VSigned (Electronic Signature): 08/11/2019 6:54 pmLipase [id number] 17:36:02 Test Item Value Reference Range Interpretation Comments Lipase Level (test code = Lipase 20 U/L 13-60 Level) Comprehensive Metabolic Jvmpr3141-01-32 17:36:01 Test Item Value Reference Range Interpretation [...] A/G 1.6 ratio N Ratio) Comprehensive Metabolic [id number] 17:36:01 Test Item Value Reference Range Interpretation [...] National Kidney Foundation, http://nkdep.ni h.gov Comprehensive Metabolic Comle9476-18-91 17:36:01 Test Item Value Reference Range Interpretation [...] ag e have not been validated by [facility] MDRD study and should be interpreted [...] ag e have not been validated by [facility] MDRD study and should be interpreted wit h caution. eGFR R esult Interpretation: eGFR > or = 60 is in the Normal RangeeGF R < 60 may mean kid fadumo diseaseeGFR < 1 5 may mean kidney failure Rang es recommended by the National Kidney Foundation, http://nkdep.ni h.gov Complete Blood Count with Xcvmwgkyzmdi9905-25-04 17:32:54 Test Item Value Reference Range Interpretation [...] code = IPF) 0 % N Automated Eyfxvlsgxavz7991-17-86 17:32:54 Test Item Value Reference Range Interpretation Comments Neutro Auto (test code = Neutro 54.7 % 36.0-70.0 Auto) Lymph Auto (test code = Lymph Auto) 36.0 % 12.0-44.0 [place] Auto (test code = [place] Auto) 6.8 % 0.0-11.0 Eos, Auto (test code = Eos, Auto) 1.8 % 0.0-7.0 Basophil Auto (test code = Basophil 0.4 % 0.0-2.0 Auto) Neutro Absolute (test code = Neutro 3.9 x10 1.6-7.4 Absolute) Lymph Absolute (test code = Lymph 2.55 x10 .50-4.60 Absolute) [place] Absolute (test code = [place] .48 x10 .00-1.20 Absolute) Eos Absolute (test code = Eos 0.13 x10 0.00-0.74 Absolute) Baso Absolute (test code = Baso 0.03 x10 0.00-0.21 Absolute) IG [id number] 17:32:54 Test Item Value Reference Range Interpretation Comments IG (test code = IG) 0.3 % 0.0-5.0 IG Abs (test code = IG Abs) 0 x10 N POC Laddsvr6087-07-57 18:09:54 Test Item Value Reference Range Interpretation Comments Glucose POC (test 105 mg/dL 70-115 If you con supervisor cook house your code = Glucose POC) patient critically ill, the Hermelinda-Accu Check Infrom II meter should not be used for Glucose determination. Draw a venous Glucose and send to the main Lab for analysis. XR Chest 1 View [id number] 17:13:03Patient: CARLEE AGUILAR Date/Time02/18/2019 17:10 CDTReason for [...] 02/18/2019 5:13 pmCT Abdomen and Pelvis w/o Ymhialsc3564-79-82 16:07:13Patient: CARLEE AGUILAR Date/Time02/18/2019 15:54 CDTReason for [...] gastric bypass. No bowel obstruction. Normal appendix.LOCATION: X45Sgqv CT exam was performed according to our [...] A/G 1.7 ratio N Ratio) Comprehensive Metabolic Fdaoi3052-84-44 12:49:45 Test Item Value Reference Range Interpretation [...] National Kidney Foundation, http://nkdep.ni h.gov Comprehensive Metabolic Dosnn2935-76-48 12:49:45 Test Item Value Reference Range Interpretation [...] ag e have not been validated by [facility] MDRD study and should be interpreted [...] ag e have not been validated by [facility] MDRD study and should be interpreted wit h caution. eGFR R esult Interpretation: eGFR > or = 60 is in the Normal RangeeGF R < 60 may mean kid fadumo diseaseeGFR < 1 5 may mean kidney failure Rang es recommended by the National Kidney Foundation, http://nkdep.ni h.gov Troponin [id number] 12:39:41 Test Item Value Reference Range Interpretation [...] chronic myocard ial injury. Prothrombin Time and [id number] 12:35:43 Test Item Value Reference Range Interpretation Comments Prothrombin Time (test code = 12.5 seconds 9.8-13.4 Prothrombin Time) INR (test code = INR) 1.1 ratio 0.6-1.2 Partial Thromboplastin [id number] 12:35:43 Test Item Value Reference Range Interpretation Comments Partial Thromboplastin Time 33.30 seconds 24.39-37.25 (test code = Partial Thromboplastin Time) Lipase Dnndl6512-95-11 12:33:48 Test Item Value Reference Range Interpretation Comments Lipase Level (test code = Lipase 19 U/L 13-60 Level) Automated Clwidhobeeca0883-48-23 12:26:00 Test Item Value Reference Range Interpretation Comments Neutro Auto (test code = Neutro 84.1 % 36.0-70.0 H Auto) Lymph Auto (test code = Lymph Auto) 9.6 % 12.0-44.0 L [place] Auto (test code = [place] Auto) 5.4 % 0.0-11.0 Eos, Auto (test code = Eos, Auto) 0.6 % 0.0-7.0 Basophil Auto (test code = Basophil 0.2 % 0.0-2.0 Auto) Neutro Absolute (test code = Neutro 8.0 x10 1.6-7.4 H Absolute) Lymph Absolute (test code = Lymph .92 x10 .50-4.60 Absolute) [place] Absolute (test code = [place] .52 x10 .00-1.20 Absolute) Eos Absolute (test code = Eos 0.06 x10 0.00-0.74 Absolute) Baso Absolute (test code = Baso 0.02 x10 0.00-0.21 Absolute) IG [id number] 12:26:00 Test Item Value Reference Range Interpretation Comments IG (test code = IG) 0.1 % 0.0-5.0 IG Abs (test code = IG Abs) 0 x10 N Complete Blood Count with Oilfitourbzc5736-65-25 12:25:59 Test Item Value Reference Range Interpretation [...] N NRBC Abs) Urinalysis with Culture, if douiqlofy9721-54-71 12:25:24 Test Item Value Reference Range Interpretation [...] Ind?) rule GL_SJM_UA_MICRO _IN D HCG Qualitative Ybiye6763-19-76 12:25:09 Test Item Value Reference Range Interpretation [...] 72 hours. Lot # (test code = [id number] N Lot #) Expiration Dt (test 07/08/2020 N code = Expiration Dt) Neg Control (test Negative code = Neg Control) Pos Control (test Positive code = Pos Control) Internal QC (test Acceptable code = Internal QC) TROPONIN [id number] 09:14:00 Test Item Value Reference Range Interpretation [...] CT, CHEST WITH IV CONTRAST- PE TEST [id number] 08:15:00Reason for exam:- >CHEST PAINIs the patient [...] Awan MDReport Verified Date/Time: 02/12/2019 08:15:11 Reading Location:[facility] Diagnostic Imaging Reading Room - [place] [address] Electronically signed by: STORM AWAN MD on02/12/2019 08:15 AMB-TYPE NATRIURETIC FACTOR (BNP)2019-02-12 07:13:00 Test Item Value Reference Range Interpretation Comments B-TYPE NATRIURETIC PEPTIDE (BEAKER) 23 pg/mL 0-100 (test code = 700) TROPONIN [id number] 07:13:00 Test Item Value Reference Range Interpretation [...] acute neurological disease, and persistent tachyarrhythmia.BASIC METABOLIC [id number] 07:09:00 Test Item Value Reference Range Interpretation [...] m DATA TO CALCULA TE ESTIMATED GFR. [id number] 07:07:00 Test Item Value Reference Range Interpretation Comments MAGNESIUM (BEAKER) 2.3 mg/dL 1.6-2.6 Specimen slightly (test code = 627) hemolyzed CREATINE KINASE (CK)2019-02-12 07:07:00 Test Item Value Reference Range Interpretation Comments CREATINE KINASE TOTAL (BEAKER) (test 64 U/L 29-200 code = 380) PT/[id number] 06:43:00 Test Item Value Reference Range Interpretation [...] mechanical heart valves.CBC W/PLT COUNT & AUTO [id number] 06:37:00 Test Item Value Reference Range Interpretation [...] = 2801) RAD, CHEST, 1 VIEW, NON [id number] 05:59:00Reason for exam:->CHEST PAINIs the patient ?->UnknownFINAL REPORT Chest, 1 view. History: Chest pain Comparison: None available. Findings: The cardiomediastinal silhouette and pulmonary vasculature are within normal limits for a portable exam. The lungs are clear without evidence of consolidation or effusion. The soft tissues and osseous structures are intact. IMPRESSION: No acute cardiopulmonary abnormality. Signed: Tona Whiteside MDReport Verified Date/Time: 02/12/2019 05:59:10 [id number] 08:06:00 Test Item Value Reference Range Interpretation Comments GLUBED (test code = 90 MG/DL 70-110 N Performe d by certified GLUBED) automatic serging machine operator at [facility] [id number] 07:36:00 Test Item Value Reference Range Interpretation Comments GLUBED (test code = 95 MG/DL 70-110 N Performe d by certified GLUBED) automatic serging machine operator at [facility] [id number] 16:41:00 Test Item Value Reference Range Interpretation Comments GLUBED (test code = 123 MG/DL 70-110 H Performe d by certified GLUBED) automatic serging machine operator at [facility] - MRI L-SPINE W/O [id number] 13:50:00 FAX: Collin Butler MD [phone] [place]: St: ADM FAX: Nichole Orozco MD [phone] FAX: Jocelin Jones MD [phone] Name: CARLEE AGUILAR [facility] : 1970 Age/S: 48/F [address] [place] [address] Unit #:[id number] Loc: [address] [address] Phys: Jcoelin Jones MD Acct: [id number] Dis Date: Status: ADM IN PHONE #: [phone] Exam Date: 01/19/2019 1343 FAX #: [phone] Reason: radiculopathy EXAMS: CPT CODE: [id number] MRI L-SPINE W/O CONT 74548 MRI lumbar spine without contrast 01/19/2019 HISTORY: Radiculopathy PROCEDURE: Multiplanar multisequence imaging of the lumbar spine is performed without contrast No prior exams are available for comparison FINDINGS: There is normal alignment and curvature of the lumbar spine. Vertebral body heights are maintained. No aggressive bone marrow abnormalityis present. The conus medullaris ends at L1 [...] at L4-5. 3. No disc herniation. SL: [id number] PAGE 1 Signed Report (CONTINUED) FAX: Collin Butler MD [phone] [place]: St: [facility] FAX: Nichole Orozco MD [phone] FAX: Jocelin Jones MD [phone] Name: CARLEE AGUILAR [facility] : 1970 Age/S: 48/F [address] [place] [address] BlvdUnit #: [id number] Loc: [place] [place] [address] Phys: Jocelin Jones MD Acct: [id number] Dis Date: Status: ADM IN PHONE #: [phone] Exam Date: 01/19/2019 1343 FAX #: [phone] Reason: radiculopathy EXAMS: CPT CODE: [id number] MRI L-SPINE W/O CONT 93005 (Continued) at 1350 Reported and signed by: Chase Loya M.D.CC: Collin Beasley MD; Nichole Orozco MD; Jocelin Jones MD Technologist: Dale Good RT(R)(CT)(MR) Trnscrd Date/Time/By: 01/19/2019 (9156) : By: [email or web address] Orig Print D/T: S: 01/19/2019 (2721) PAGE 2 Signed Report- MRI BRAIN W/O [id number] 13:47:00 FAX: Collin Butler MD [phone] [place]: St: ADM FAX: Nichole Orozco MD [phone] FAX: Jocelin Bowling MD [phone] Name: CARLEE AGUILAR [facility] : 1970 Age/S: 48/F [address] [place] [address] Unit #: [id number] Loc: [place] [place] [address] Phys: Jocelin Jones MD Acct: [id number] Dis Date: Status: ADMIN PHONE #: [phone] Exam Date: 01/19/2019 1343 FAX #: [phone] Reason: ms EXAMS: CPT CODE: [id number] MRI BRAIN W/O CONT 01671 MRI brain without contrast 01/19/2019 HISTORY: Weakness to extremities. PROCEDURE: Multiplanar multisequence imaging of the brain is performed without contrast Comparison is made to CT performed on 10/21/2017 FINDINGS: Diffusion-weighted imaging demonstrates no acuteischemic event. No evidence for acute infarct is present. No acute hemorrhage, midline shift, extra-axial fluid collection, or hydrocephalus is present. Craniocervical junction and corpus callosum are within normal limits. There is no blooming artifact on the heme sequence to suggest remote hemorrhage. No significant area of abnormal increased FLAIR signal is present. The visualized mastoid air cells are clear. There is no air-fluid level in the visualized paranasal sinuses. The expected intracranial flow voids are present. Right nasal septal deviation is present. IMPRESSION: No acute intracranial abnormality. SL: [id number] at 7451 Reported and signed by: Chase Loya M.D. CC: Collin Beasley MD; Nichole Orozco MD;Jocelin Jones MD Technologist: Dale Good RT(R)(CT)(MR) Trnscrd Date/Time/By: 01/19/2019 (0678) : By: [email or web address] Orig Print D/T: S: 01/19/2019 (9369) PAGE 1 Signed ReportCBC W/AUTO [id number] 08:32:00 Test Item Value Reference Range Interpretation [...] REQUIRED (test code NO = MDIFF) VITAMIN [id number] 08:29:00 Test Item Value Reference Range Interpretation Comments VITAMIN B12 (test code = VITB12) 386 pg/mL 193-986 N C REACTIVE [id number] 07:54:00 Test Item Value Reference Range Interpretation Comments C REACTIVE PROTEIN (test code = < 2.9 MG/L 0.0-2.9 N CRP) SED RATE [id number] 07:52:00 Test Item Value Reference Range Interpretation Comments SED RATE WESTERGREN (test code = 2 mm/hr 0-20 N SEDW) BASIC METABOLIC [id number] 06:56:00 Test Item Value Reference Range Interpretation [...] total (including troponin done in ED)THYROID STIMULATING [id number] 06:56:00 Test Item Value Reference Range Interpretation Comments THYROID STIMULATING 0.18 0.42-5.47 L Results in HORMONE (test code = TSH) mi lli-International Units/mL COMMENTS: 3 troponins total (including troponin done in ED)[id number] 06:56:00 Test Item Value Reference Range Interpretation [...] 3 troponins total (including troponin done in ED)TAPLTSPE-[id number] 12:21:00 Test Item Value Reference Range Interpretation [...] ANGIO CHEST 2019-01-18 10:39:00 Name: CARLEE AGUILAR [facility] : 1970 Age/S: 48 / F [address] [place] [address] Blvd Unit #: [id number] Loc: [place] [address] Phys: Dick Silverman MD Acct: [id number] Dis Date: Status: REG ERPHONE #: [phone] Exam Date: 01/18/2019 1018 FAX #: [phone] Reason: chest pain, SOB, elevated d-dimer EXAMS: CPT CODE: [id number] CT ANGIO CHEST 66366 PROCEDURE: CTA CHEST INDICATION: Chest pain. Shortness [...] 1 Signed Report (CONTINUED) Name: [facility] 1970 Age/S: 48 / F [address] [place] [address] Unit #: [id number] Loc: MALIK Wolff [address] Phys: Dick Silverman MD Acct: [id number] Dis Date: Status: REG ER PHONE #: [phone] Exam Date: 01/18/2019 1018 FAX #: Reason: chest pain, SOB, elevated d-dimer EXAMS: CPT CODE: [id number] CT ANGIO CHEST 98329 (Continued) symptoms. SL: [id number] at 1039 Reported and signed by: Chuy Diaz M.D. CC: Collin Beasley MD; Dick Silverman MD Technologist:Gio Foster, RT(R) CTDI: DLP: Trnscb Date/Time: 01/18/2019 (1039) [email or web address] Orig Print D/T: S: 01/18/2019 (6751) PAGE 2 Signed Report [id number] 08:12:00 Test Item Value Reference Range Interpretation [...] TESTS AND APPROPRIATECLIN ICAL EUALUATIONS. HEPATIC FUNCTION [id number] 08:09:00 Test Item Value Reference Range Interpretation [...] 98 IUnit/L 20-125 N code = ALKP) [id number] 08:09:00 Test Item Value Reference Range Interpretation Comments LIPASE (test code = LIP) 88 IUnit/L 73-393 N CBC W/AUTO [id number] 08:03:00 Test Item Value Reference Range Interpretation [...] NO = MDIFF) - XR CHEST 2 [id number] 08:01:00 FAX: Collin Butler MD [phone] [place]: St: [facility] FAX: Dick Silverman MD [phone] -------- Name: CARLEE AGUILAR [facility] : 1970 Age/S: 48/F [address] [place] [address] Unit #: [id number] Loc: BE[place] [id number] Phys: Dick Silverman MD Acct: [id number] Dis Date: Status: REG ER PHONE #: [phone] ExamDate: 01/18/2019 0758 FAX #: [phone] Reason: Chest Pain EXAMS: CPT CODE: [id number] XR CHEST 2 V 83652 2 view chest x-ray performed January 18, 2019 0751 hours. COMPARISON: October 24, 2018. CLINICALHISTORY: Chest pain. DISCUSSION: 2 views/ films of the chest are submitted. Lungs are clear bilaterally. Cardiomediastinal silhouette is normal. Osseous structures are within normal limits. IMPRESSION: Normal Chest X-ray. at 0801 Reported and signed by: Darling Tamayo M.D. CC: Collin Beasley MD; Dick Silverman MD Technologist: RT Bunny(R) Trnscrd Date/Time/By: 01/18/2019 (800) : By: [email or web address] Orig Print D/T: S: 01/18/2019 (04) PAGE 1 Signed ReportTROPONIN-I [id number] 07:45:00 Test Item Value Reference Range Interpretation Comments TROPONIN-I RAPID 0.01 ng/mL 0.00-0.08 N Performed b y certified (test code = automatic serging machine operator at [facility] Negative: < = 0.08 Positive: >= [...] changes in trop onin levels characteristic of CA. CHEMISTRY 8 [id number] 07:37:00 Test Item Value Reference Range Interpretation [...] ML/MIN (test code = GFRBED) CHEMISTRY 8 [id number] 07:37:00 Test Item Value Reference Range Interpretation Comments ISTAT-SODIUM (test 142 MMOL/L 134-147 N code = NAP) ISTAT-POTASSIUM (test 3.4 MMOL/L 3.4-5.0 N code = KP) ISTAT-CHLORIDE (test 103 MMOL/L 100-108 N Perform ed by code = CLP) certified opera tor at [facility] ed Ctr ISTAT CARBON DIOXIDE 24.0 [...] (test code = GFRBED) - DUP VEIN UNI/[id number] 15:22:00 Name: CARLEE AGUILAR [facility] : 1970 Age/S: 48 / F [address] [place] [address] Unit #: [id number] Loc: [place] [address] Phys: Isis Estrada MD Acct: [id number] Dis Date: [id number] Status: DIS IN PHONE #: [phone] Exam Date: 10/29/2018 1431 FAX #: [phone] Reason: DVT EXAMS: CPT CODE: [id number] DUP VEIN UNI/LTD 98203 PROCEDURE: UNILATERAL UPPER EXTREMITY VENOUS ULTRASOUND INDICATION: [...] identified in the right upper extremity. SL: [id number] at 1522 Reported and signed by: Candie Chanel M.D. CC: Isis Estrada MD Technologist: Destiny Rosario RDMS(Naman)(BR) Trnscb Date/Time: 10/29/2018 (1522) [id number] Orig Print D/T: S: 10/29/2018 (1525) Probe: PAGE 1 Signed [id number] 11:53:00 Test Item Value Reference Range Interpretation Comments GLUBED (test code = 181 MG/DL 70-110 H Performe d by certified GLUBED) automatic serging machine operator at [facility] [id number] 09:07:00 Test Item Value Reference Range Interpretation Comments GLUBED (test code = 83 MG/DL 70-110 N Performe d by certified GLUBED) automatic serging machine operator at [facility] CBC W/AUTO [id number] 08:32:00 Test Item Value Reference Range Interpretation [...] (test code NO = MDIFF) COMPREHENSIVE METABOLIC [id number] 07:51:00 Test Item Value Reference Range Interpretation [...] 20-125 N TOTAL (test code = ALKP) [id number] 07:51:00 Test Item Value Reference Range Interpretation Comments MAGNESIUM (test code = MAG) 2.00 mg/dL 1.8-2.4 N [id number] 20:41:00 Test Item Value Reference Range Interpretation Comments GLUBED (test code = 91 MG/DL 70-110 N Performe d by certified GLUBED) automatic serging machine operator at [facility] [id number] 19:24:00 Test Item Value Reference Range Interpretation Comments GLUBED (test code = 158 MG/DL 70-110 H Performe d by certified GLUBED) automatic serging machine operator at [facility] [id number] 19:24:00 Test Item Value Reference Range Interpretation Comments GLUBED (test code = 106 MG/DL 70-110 N Performe d by certified GLUBED) automatic serging machine operator at [facility] URINALYSIS [id number] 11:17:00 Test Item Value Reference Range Interpretation [...] 0-5 /HPF NONE SEEN SQU) UA CULT [id number] 11:17:00 Test Item Value Reference Range Interpretation Comments UA CULTURE NEEDED? NO, WBC<10 Culture Chk Criteria not met, (test code = Criteria Urine Culture UACULT) cancelled. [id number] 09:11:00 Test Item Value Reference Range Interpretation Comments GLUBED (test code = 85 MG/DL 70-110 N Performe d by certified GLUBED) automatic serging machine operator at [facility] BASIC METABOLIC [id number] 08:13:00 Test Item Value Reference Range Interpretation [...] code = 8.9 mg/dL 8.0-10.5 N CA) [id number] 08:13:00 Test Item Value Reference Range Interpretation Comments MAGNESIUM (test code = MAG) 2.10 mg/dL 1.8-2.4 N CBC W/AUTO [id number] 07:40:00 Test Item Value Reference Range Interpretation [...] DIFF REQUIRED (test code NO = MDIFF) [id number] 23:54:00 Test Item Value Reference Range Interpretation Comments GLUBED (test code = 243 MG/DL 70-110 H Performe d by certified GLUBED) automatic serging machine operator at [facility] PROTHROMBIN [id number] 07:45:00 Test Item Value Reference Range Interpretation [...] (to prevent recurrent infar ct). THROMBOPLASTIN TIME [id number] 07:45:00 Test Item Value Reference Range Interpretation Comments THROMBOPLASTIN TIME 37.6 Seconds 25.0-39.5 N Therape utic Range: PARTIAL (test code = 61.8-83 .8 Sec PTT) Effective 10/06/2013 BASIC METABOLIC [id number] 07:34:00 Test Item Value Reference Range Interpretation [...] be done morning of Heart CathCBC W/AUTO [id number] 07:31:00 Test Item Value Reference Range Interpretation [...] COMMENTS: To be done morning of Heart [id number] 07:23:00 Test Item Value Reference Range Interpretation Comments GLUBED (test code = 73 MG/DL 70-110 N Performe d by certified GLUBED) automatic serging machine operator at [facility] [id number] 21:06:00 Test Item Value Reference Range Interpretation Comments GLUBED (test code = 145 MG/DL 70-110 H Performe d by certified GLUBED) automatic serging machine operator at [facility] [id number] 17:23:00 Test Item Value Reference Range Interpretation Comments GLUBED (test code = 82 MG/DL 70-110 N Performe d by certified GLUBED) automatic serging machine operator at [facility] - XR UGI W/O [id number] 17:17:00 FAX: Keaton Campbell MD [phone] [place]: St: [facility] FAX: Scooby Wyman MD [phone] Name: [facility] Lake[facility]OB: 1970 Age/S: 48/F [address] [place] [address] Unit #: [id number] Loc: [address] [address]Gcxp: Keaton Campbell MD Acct: [id number] Dis Date: Status: ADM IN PHONE #: [phone] Exam Date: 10/09 1650 FAX #: [phone] Reason: hx of gastric bypass at another institution. C/ EXAMS: CPT CODE: [id number] XR UGI W/O KUB 99173 ESOPHAGRAM AND UPPER GI: HISTORY: History of gastric bypass. Nowwith inability to swallow solids. Vomiting with regurgitation. [...] Dr. Gomez on 10/26/2018. SL:01 PAGE 1 SignedReport (CONTINUED) FAX: Keaton Campbell MD [phone] [place]: St: ADM FAX: Scooby Wyman MD [phone] Name: CARLEE AGUILAR [facility] : 1970 Age/S: 48/F [address] [place] [address] Unit #: [id number] Loc: [address] [address] Phys: Keaton Campbell MD Acct: [id number] Dis Date: Status: ADM IN PHONE #: [phone] Exam Date: 10/26/2018 1650 FAX #: [phone] Reason: hx of gastric bypass at another institution. C/ EXAMS: CPT CODE: [id number] XR UGI W/O KUB 16142 (Continued) at 1717 Reported and signed by: Fidel Gomez M.D. CC:Keaton Campbell MD; Scooby Ross MD Technologist: RT Alpesh(Keyanna) Trnridavie Date/Time/By: 10/26/2018 (1717) : By: Linette Orig Print D/T: S: 10/26/2018 (172) PAGE 2 Signed Report [id number] 15:16:00 Test Item Value Reference Range Interpretation Comments CREATININE (test code = CREAT) 0.7 mg/dL 0.6-1.3 [id number] 11:25:00 Test Item Value Reference Range Interpretation Comments GLUBED (test code = 87 MG/DL 70-110 N Performe d by certified GLUBED) automatic serging machine operator at [facility] BASIC METABOLIC [id number] 08:13:00 Test Item Value Reference Range Interpretation [...] code = 8.7 mg/dL 8.0-10.5 N CA) [id number] 08:08:00 Test Item Value Reference Range Interpretation Comments GLUBED (test code = 82 MG/DL 70-110 N Performe d by certified GLUBED) automatic serging machine operator at [facility] CBC W/AUTO [id number] 07:50:00 Test Item Value Reference Range Interpretation [...] DIFF REQUIRED (test code NO = MDIFF) [id number] 20:42:00 Test Item Value Reference Range Interpretation Comments GLUBED (test code = 97 MG/DL 70-110 N Performe d by certified GLUBED) automatic serging machine operator at [facility] [id number] 16:18:00 Test Item Value Reference Range Interpretation Comments GLUBED (test code = 94 MG/DL 70-110 N Performe d by certified GLUBED) automatic serging machine operator at [facility] - PULM VENT PERF [id number] 15:28:00 FAX: Scooby Wyman MD [phone] [place]: St: ADM FAX: Chris Galindo MD [phone] Name: CARLEE AGUILAR [facility] : 1970 Age/S: 48/F [address] [place] [address] Unit #: [id number] Loc: [address] [address] Phys: Chris Ny MD Acct: [id number] Dis Date: Status: ADM IN PHONE #: [phone] Exam Date: 10/25/2018 1516 FAX #: [phone] Reason: CP, HIGH D-DIMER, R/O PE EXAMS: CPT CODE: [id number] PULM VENT PERF IMAG 92325 NUCLEAR MEDICINE VENTILATION/PERFUSION LUNG SCAN HISTORY: Chest pain, elevated d-dimer. Comparison is made to CT chest, also dated 10/25/18. Radiopharmaceutical: 10 mCi xenon-133 gas inhaled for ventilation, 5 mCi technetium 99m MAA injected IV for perfusion. FINDINGS: Ventilation images show homogeneous activity at equilibrium. There is no significant air trapping on washoutventilation images identified. Perfusion images show patchy perihilar distribution of the radiopharmaceutical. There is no segmental perfusion defect. IMPRESSION: Low probability for pulmonary embolus.SL:01 at 1528 Reported and signed by: Malachi Pham M.D. CC: Scooby Ross MD; Chris Ny MD Technologist: Jakob Sloan, RT(N)(CT)(PET) Trnscrd Date/Time/By: 10/25/2018 (1528) : By: Jannet Orig Print D/T: S: 10/25/2018 (1524) PAGE 1 Signed [id number] 14:32:00 Test Item Value Reference Range Interpretation Comments GLUBED (test code = 107 MG/DL 70-110 N Performe d by certified GLUBED) automatic serging machine operator at [facility] [id number] 09:53:00 Test Item Value Reference Range Interpretation Comments GLUBED (test code = 108 MG/DL 70-110 N Performe d by certified GLUBED) automatic serging machine operator at [facility] BASIC METABOLIC [id number] 09:07:00 Test Item Value Reference Range Interpretation [...] total (including troponin done in ED)THYROID STIMULATING [id number] 09:07:00 Test Item Value Reference Range Interpretation Comments THYROID STIMULATING 2.30 0.42-5.47 N Results in HORMONE (test code = TSH) mi lli-International Units/mL 10/25/18 0630COMMENTS: 3 troponins total (including troponin done in ED) [id number] 09:07:00 Test Item Value Reference Range Interpretation Comments TROPONIN-I < 0.015 ng/mL 0.000-0.045 N Negative: <= 0.045 (test code = Positive: >= 0. 046 TROPI) Correlation wit h serial results, other cardiac markers andclin ical findings is necessary to determine the clinicalsig nificance of this result. Re sults using different metho dologies should not be c omparedto one another as arline titative results may jesús y by method. 10/25/18 0630COMMENTS: 3 troponins total (including troponin done in ED)- CT CHEST W/O [id number] 09:04:00 Name: CARLEE AGUILAR [facility] [place] : 1970 Age/S: 48 / F [address] [place] [address] Unit #: [id number] Loc: [place] [address] Phys: Scooby Ross MD Acct: [id number] Dis Date: Status: ADM IN PHONE #: [phone] Exam Date: 10/25/2018829 FAX #: [phone] Reason: pleurisy EXAMS: CPT CODE: [id number] CT CHEST W/O CONTRAST 14649 PROCEDURE: CT CHEST WITHOUT CONTRAST INDICATION: Chest [...] The superior vena cava is unremarkable. UPPER AB DOMEN: Patient is post gastric bypass and cholecystectomy. MUSCULOSKELETAL: Stable. IMPRESSION: 1. No acute intrathoracic abnormality demonstrated by noncontrast CT chest. 2. Previous gastric bypass and cholecystectomy. SL:01 at 0904 Reported and signed by: Malachi Pham M.D. PAGE 1 Signed Report (CONTINUED) Name: [facility] [place] : 1970 Age/S: 48 / F [address] [place] [address] Unit #: [id number] Loc:[place] [address] Phys: Scooby Ross MD Acct: [id number] Dis Date: Status: ADM IN PHONE #: [phone] Exam Date: 10/25/2018 0830 FAX #: [phone] Reason: pleurisy EXAMS: CPT CODE: [id number] CTCHEST W/O CONTRAST 10155 (Continued) CC: Scooby Ross MD Technologist:Leonie Azar, RT(R)(CT) CTDI: DLP: Trnscb Date/Time: 10/25/2018 (903) t.JN Orig Print D/T: S: 10/25/2018 (906) CTDI: DLP: PAGE 2 Signed [id number]% 2018-10-25 08:45:00 Test Item Value Reference Range Interpretation Comments HGBA1C% (test code = HGBA1C%) 5.5 %A1C 4.8-6.0 N - DUP VEIN [id number] 08:40:00 Name: CARLEE AGUILAR [facility] : 1970 Age/S: 48 / F [address] [place] [address] Unit #: [id number] Loc: [place] [address] Phys: Scooby Ross MD Acct: [id number] Dis Date: Status: ADM IN PHONE #: [phone] Exam Date: 10/25/2018 0822 FAX #: [phone] Reason: elevated ddimer EXAMS: CPT CODE: [id number] DUP VEIN RASHID 07810 PROCEDURE: BILATERAL LOWER EXTREMITY VENOUS ULTRASOUND INDICATION: Chest pain, elevated d- dimer COMPARISON: None. TECHNIQUE: Sonographic evaluation of the bilaterallower extremity veins was performed using high resolution [...] 0840 Reported and signed by: Malachi Pham M.D.CC: Scooby Ross MD Technologist: Michelle Silverman RDMS(Naman) Trnscb Date/Time: 10/25/2018 (0840) Jannet Orig Print D/T: S: 10/25/2018 (2957) Probe: PAGE 1 Signed ReportCBC W/AUTO [id number] 08:21:00 Test Item Value Reference Range Interpretation [...] DIFF REQUIRED (test code NO = MDIFF) [id number] 03:19:00 Test Item Value Reference Range Interpretation [...] total (including troponin done in ED)B-TYPE NATRIURETIC [id number] 00:32:00 Test Item Value Reference Range Interpretation Comments B-TYPE NATRIURETIC PEPTIDE (test 20.4 PG/ML 0-100 N code = BNP) - XR CHEST 1 [id number] 00:18:00 FAX: Pam Weinstein DO [phone] [place]: St: REG Name: CARLEE AGUILAR [facility] [place] : 1970 Age/S: 48/F [address] [place] [address] Unit #: [id number] Loc: [place] [address] Phys: Pam Benitez Acct: [id number] Dis Date: Status: REG ER PHONE #: [phone] Exam Date: 10/24/2018 0888 FAX #: [phone] Reason: Chest Pain EXAMS: CPT CODE: [id number] XR CHEST 1 V 97241 EXAM: CR, XR chest one view: 10/24/2018 HISTORY: Chest Pain TECHNIQUE: 1 view of the chest. COMPARISON: 10/21/2017 FINDINGS: Trachea is midline. Heart is normal in size. Pulmonary vascularity is unremarkable. There is no airspace consolidation, pleural effusion or pneumothorax. No significant osseous abnormalities are seen. IMPRESSION: No acute cardiopulmonary disease seen. SL: [HUI-H] at 0018 Reported and signed by: Chace Marquez M.D. CC: Pam Benitez DO Technologist: RT Fanny(R)Saida Mendiola Trnrird Date/Time/By: 10/25/2018 (0018) : By: Royal.JS38 Orig [...] 8.3 mg/dL 8.0-10.5 N CA) HEPATIC FUNCTION [id number] 00:11:00 Test Item Value Reference Range Interpretation [...] IUnit/L 20-125 N code = ALKP) PROTHROMBIN [id number] 23:57:00 Test Item Value Reference Range Interpretation [...] l Infarction (to prevent recurrent infar ct). [id number] 23:57:00 Test Item Value Reference Range Interpretation Comments D-DIMER (test 1162 ng/mlFEU <=500 HH THROMBOSIS A ND/OR code = PULMONARY EMBOL ISM AND THE DDIMER) CLINICAL CUT- O FF VALUE FOR EXCLUSION (500 ng/mL FEU) OF THESE CONDIT IONSIS VALIDATED BY TH E SPOOLER OF THE METHOD. A NEGATIVE D-DI ROBERTO RESULT WHEN COMBINED W ITH A CLINICALASSESSM ENT OF LOW PRETEST PROBABI LITY HAS BEEN SHOWN TO H AVEA HIGH NEGATIVE PREDIC TIVE VALUE OF DVT OR PE. D -DIMER VALUES >500 ng/ mL FEU ARE NOT DIAGNOSTIC FOR DVT, PEor DIC WITHOU T OTHER CONFIRMATORY TE STS AND APPROPRIATECLIN ICAL EUALUATIONS. CBC W/AUTO [id number] 23:50:00 Test Item Value Reference Range Interpretation [...] = MDIFF) CT Abdomen and Pelvis w/o [id number] 23:22:30Patient: CARLEE AGUILAR Date/Time05/16/2018 23:06 CDTReason for ExamAbdominal p ainReportCT Abdomen and Pelvis w/o ContrastLOCATION: [id number]: Abdominal painCOMPARISON: CT of theabdomen and pelvis [...] 05/16/2018 11:18 pmSigned by: MD Valdez Alfred ESignuri (Electronic Signature): 05/16/2018 11:22 [id number] 01:00:00 Test Item Value Reference Range Interpretation Comments Lipase (test code = LIP) 28 U/L 13-60 N Comprehensive Metabolic [id number] 01:00:00 Test Item Value Reference Range Interpretation [...] National Kidney Foundation,http ://nkd ep.nih.gov BHCG, Urine, [id number] 00:45:00 Test Item Value Reference Range Interpretation Comments Preg Qual [Ur] (test code = HUHCG) Negative Negative N CBC with [id number] 00:44:00 Test Item Value Reference Range Interpretation [...] code = ALYMPH) 2.6 K/cumm 0.5-4.6 N [place] Abs (test code = AMONO) 0.4 K/cumm 0.0-1.2 N Eos Abs (test code = AEOS) 0.38 K/cumm 0.00-0.74 N Baso Abs (test code = ABASO) 0.1 K/cumm 0.00-0.21 N Urinalysis [id number] 00:32:00 Test Item Value Reference Range Interpretation Comments Color (test code = COLOR) Yellow Yellow,Straw,Pl N yellow Clarity (test code = Sl Cloudy Clear A CLAR) Specific [place] (test 1.016 1.001-1.035 N code = SPGR) [...] Bacteria (test code = Many /HPF BACT) [id number] 17:42:00 Test Item Value Reference Range Interpretation Comments Lipase (test code = LIP) 28 U/L 13-60 N Comprehensive Metabolic [id number] 17:42:00 Test Item Value Reference Range Interpretation [...] is not provided , and the patient isAflilianean-Amradha can, multiply by 1.2 12. If sex [...] National Kidney Foundation,http ://nkd ep.nih.gov CBC with [id number] 17:00:00 Test Item Value Reference Range Interpretation [...] code = ALYMPH) 2.0 K/cumm 0.5-4.6 N [place] Abs (test code = AMONO) 0.3 K/cumm 0.0-1.2 N Eos Abs (test code = AEOS) 0.34 K/cumm 0.00-0.74 N Baso Abs (test code = ABASO) 0.0 K/cumm 0.00-0.21 N [address]& PELVIS W/O [id number] 16:47:19CT OF THE ABDOMEN AND PELVIS WITHOUT [...] absence of the gallbladder and uterus.POC Glucose, [id number] 07:45:00 Test Item Value Reference Range Interpretation Comments POC Glucose (test 158 mg/dL 70-115 H Notify RN or MDIf you code = POCGLUC) consider you r patient critically ill, the [place] Accu-Chek InformII metershould not be used for Glucose determinations. Draw a venous Glucose and send to the Main Lab for Analysis. POC Glucose, [id number] 20:31:00 Test Item Value Reference Range Interpretation Comments POC Glucose (test 167 mg/dL 70-115 H If you con supervisor cook house your code = POCGLUC) patient crit ically ill, the [place] Accu- Chek InformII meters hould not be used for Glu cose determinations. Draw a venous Glucose and send to the Main Lab for Analysis. POC Glucose, [id number] 16:44:00 Test Item Value Reference Range Interpretation Comments POC Glucose (test 148 mg/dL 70-115 H If you con supervisor cook house your code = POCGLUC) patient crit ically ill, the [place] Accu- Chek InformII meters hould not be used for Glu cose determinations. Draw a venous Glucose and send to the Main Lab for Analysis. POC Glucose, [id number] 11:25:00 Test Item Value Reference Range Interpretation Comments POC Glucose (test 173 mg/dL 70-115 H If you con supervisor cook house your code = POCGLUC) patient crit ically ill, the [place] Accu- Chek InformII meters hould not be used for Glu cose determinations. Draw a venous Glucose and send to the Main Lab for Analysis. POC Glucose, [id number] 07:30:00 Test Item Value Reference Range Interpretation Comments POC Glucose (test 191 mg/dL 70-115 H If you con supervisor cook house your code = POCGLUC) patient crit ically ill, the [place] Accu- Chek InformII meters hould not be used for Glu cose determinations. Draw a venous Glucose and send to the Main Lab for Analysis. POC Glucose, [id number] 06:33:00 Test Item Value Reference Range Interpretation Comments POC Glucose (test 181 mg/dL 70-115 H If you con supervisor cook house your code = POCGLUC) patient crit ically ill, the [place] Accu- Chek InformII meters hould not be used for Glu cose determinations. Draw a venous Glucose and send to the Main Lab for Analysis. Comprehensive Metabolic [id number] 05:28:00 Test Item Value Reference Range Interpretation [...] National Kidney Foundation,http ://nkd ep.nih.gov CBC with [id number] 05:03:00 Test Item Value Reference Range Interpretation [...] code = ALYMPH) 1.6 K/cumm 0.5-4.6 N [place] Abs (test code = AMONO) 0.3 K/cumm 0.0-1.2 N Eos Abs (test code = AEOS) 0.23 K/cumm 0.00-0.74 N Baso Abs (test code = ABASO) 0.0 K/cumm 0.00-0.21 N POC Glucose, [id number] 21:57:00 Test Item Value Reference Range Interpretation Comments POC Glucose (test 176 mg/dL 70-115 H If you con supervisor cook house your code = POCGLUC) patient crit ically ill, the [place] Accu- Chek InformII meters hould not be used for Glu cose determinations. Draw a venous Glucose and send to the Main Lab for Analysis. POC Glucose, [id number] 16:25:00 Test Item Value Reference Range Interpretation Comments POC Glucose (test 148 mg/dL 70-115 H If you con supervisor cook house your code = POCGLUC) patient crit ically ill, the [place] Accu- Chek InformII meters hould not be used for Glu cose determinations. Draw a venous Glucose and send to the Main Lab for Analysis. CT NECK SOFT TISSUE WO [id number] 15:49:06Exam: CT soft tissue neck withoutcontrast.Location: H0Exsiguz: Neck painTechnique: Unenhanced spiralslices were taken through the neck.Sagittal and coronal reformations were performed. One or more of thefollowing radiation dose reduction techniques was used: Automaticexposure control, adjustment of mA and/or KV according to the patient'ssize, and/or utilization of iterative reconstruction technique. Findings:The parotid space, carotid space, paint preparer space, prevertebral spaceand the fossa of Rosenm?ller are normal. The oral and hypopharynx areunremarkable.The salivary glands are normal. No sialadenitis or sialolithiasis isseen.The larynx and trachea are normal. The cervical and visualized thoracicesophagus is unremarkable. No lymphadenopathy is present in eitherjugular or either posterior chain.The thyroid gland is normal. The soft tissues are unremarkable.Impression:Unremarkable exam.CT CHEST W/O CONTRAST 2017-12-06 15:45:29Exam: CT thorax withoutcontrast.Location: L0Yyhfnan: Chest painTechnique: Unenhancedspiral slices were taken from [...] are notedImpression: Left lower lobe pneumonia.POC Glucose, [id number] 11:54:00 Test Item Value Reference Range Interpretation Comments POC Glucose (test 200 mg/dL 70-115 H If you con supervisor cook house your code = POCGLUC) patient crit ically ill, the [place] Accu- Chek InformII meters hould not be used for Glu cose determinations. Draw a venous Glucose and send to the Main Lab for Analysis. POC Glucose, [id number] 07:17:00 Test Item Value Reference Range Interpretation Comments POC Glucose (test 180 mg/dL 70-115 H If you con supervisor cook house your code = POCGLUC) patient crit ically ill, the [place] Accu- Chek InformII meters hould not be used for Glu cose determinations. Draw a venous Glucose and send to the Main Lab for Analysis. Comprehensive Metabolic [id number] 06:33:00 Test Item Value Reference Range Interpretation [...] National Kidney Foundation,http ://nkd ep.nih.gov CBC with [id number] 06:13:00 Test Item Value Reference Range Interpretation [...] code = ALYMPH) 1.6 K/cumm 0.5-4.6 N [place] Abs (test code = AMONO) 0.4 K/cumm 0.0-1.2 N Eos Abs (test code = AEOS) 0.31 K/cumm 0.00-0.74 N Baso Abs (test code = ABASO) 0.0 K/cumm 0.00-0.21 N POC Glucose, [id number] 23:37:00 Test Item Value Reference Range Interpretation Comments POC Glucose (test 152 mg/dL 70-115 H If you con supervisor cook house your code = POCGLUC) patient crit ically ill, the [place] Accu- Chek InformII meters hould not be used for Glu cose determinations. Draw a venous Glucose and send to the Main Lab for Analysis. POC Glucose, [id number] 17:16:00 Test Item Value Reference Range Interpretation Comments POC Glucose (test 170 mg/dL 70-115 H If you con supervisor cook house your code = POCGLUC) patient crit ically ill, the [place] Accu- Chek InformII meters hould not be used for Glu cose determinations. Draw a venous Glucose and send to the Main Lab for Analysis. D-Dimer, [id number] 15:56:00 Test Item Value Reference Range Interpretation Comments D-Dimer, Quant (test code = DDQNT) 1610 ng/mL 0-500 H 61273&PERFUS [id number] 14:47:54Dictation location: R 16Clinical indication: Shortness of [...] of pulmonary emboli.US DUPLX EXT VEINS COMPRS, [id number] 12:42:18DICTATION LOCATION: [id number]: DVTCOMPARISON: None available.TECHNIQUE: Duplex sonography of theright [...] extremity.Small right Gaspar's cyst. XR CHEST 2V, [id number] 11:43:22EXAM: Chest x-ray, 2 viewsLOCATION: [id number]: Chest radiograph 12/04/2017 and 11/26/2017INDICATION: chest painDISCUSSION:PA [...] silhouette.3. Otherwise, no acute cardiopulmonary abnormalities.POC Glucose, [id number] 07:08:00 Test Item Value Reference Range Interpretation Comments POC Glucose (test 201 mg/dL 70-115 H Notify RN or MDIf you code = POCGLUC) consider you r patient critically ill, the [place] Accu-Chek InformII metershould not be used for Glucose determinations. Draw a venous Glucose and send to the Main Lab for Analysis. POC Glucose, [id number] 00:19:00 Test Item Value Reference Range Interpretation Comments POC Glucose (test 173 mg/dL 70-115 H Notify RN or MDIf you code = POCGLUC) consider you r patient critically ill, the [place] Accu-Chek InformII metershould not be used for Glucose determinations. Draw a venous Glucose and send to the Main Lab for Analysis. POC Glucose, [id number] 21:49:00 Test Item Value Reference Range Interpretation Comments POC Glucose (test 189 mg/dL 70-115 H If you con supervisor cook house your code = POCGLUC) patient crit ically ill, the [place] Accu- Chek InformII meters hould not be used for Glu cose determinations. Draw a venous Glucose and send to the Main Lab for Analysis. POC Glucose, [id number] 17:09:00 Test Item Value Reference Range Interpretation Comments POC Glucose (test 193 mg/dL 70-115 H Notify RN or MDIf you code = POCGLUC) consider you r patient critically ill, the [place] Accu-Chek InformII metershould not be used for Glucose determinations. Draw a venous Glucose and send to the Main Lab for Analysis. POC Glucose, [id number] 12:20:00 Test Item Value Reference Range Interpretation Comments POC Glucose (test 166 mg/dL 70-115 H If you con supervisor cook house your code = POCGLUC) patient crit ically ill, the [place] Accu- Chek InformII meters hould not be used for Glu cose determinations. Draw a venous Glucose and send to the Main Lab for Analysis. POC Glucose, [id number] 09:03:00 Test Item Value Reference Range Interpretation Comments POC Glucose (test 212 mg/dL 70-115 H If you con supervisor cook house your code = POCGLUC) patient crit ically ill, the [place] Accu- Chek InformII meters hould not be used for Glu cose determinations. Draw a venous Glucose and send to the Main Lab for Analysis. Comprehensive Metabolic [id number] 05:54:00 Test Item Value Reference Range Interpretation [...] National Kidney Foundation,http ://nkd ep.nih.gov CBC with [id number] 05:40:00 Test Item Value Reference Range Interpretation [...] code = ALYMPH) 1.7 K/cumm 0.5-4.6 N [place] Abs (test code = AMONO) 0.9 K/cumm 0.0-1.2 N Eos Abs (test code = AEOS) 0.04 K/cumm 0.00-0.74 N Baso Abs (test code = ABASO) 0.0 K/cumm 0.00-0.21 N POC Glucose, [id number] 05:04:00 Test Item Value Reference Range Interpretation Comments POC Glucose (test 202 mg/dL 70-115 H If you con supervisor cook house your code = POCGLUC) patient crit ically ill, the [place] Accu- Chek InformII meters hould not be used for Glu cose determinations. Draw a venous Glucose and send to the Main Lab for Analysis. XR CHEST 1 [id number] 03:04:28AFTER HOURS SERVICE ON: 12/04/2017 3:04 AMAP Portable ChestLocation Code [id number]: Status Post Lap Gastric BypassFINDINGS: There are no infiltrates. There are no pleural effusions. There is nopneumotho rax. Cardiac silhouette and mediastinum appear within normallimits. Surgical drain is noted projecting over the mid abdomen and leftupper quadrant.IMPRESSION: No active intrathoracic findings.POC Glucose, Blood 2017-12-04 02:06:00 Test Item Value Reference Range Interpretation Comments POC Glucose (test 213 mg/dL 70-115 H If you con supervisor cook house your code = POCGLUC) patient crit ically ill, the [place] Accu- Chek InformII meters hould not be used for Glu cose determinations. Draw a venous Glucose and send to the Main Lab for Analysis. POC Glucose, [id number] 21:15:00 Test Item Value Reference Range Interpretation Comments POC Glucose (test 236 mg/dL 70-115 H If you con supervisor cook house your code = POCGLUC) patient crit ically ill, the [place] Accu- Chek InformII meters hould not be used for Glu cose determinations. Draw a venous Glucose and send to the Main Lab for Analysis. POC Glucose, [id number] 16:03:00 Test Item Value Reference Range Interpretation Comments POC Glucose (test 235 mg/dL 70-115 H If you con supervisor cook house your code = POCGLUC) patient crit ically ill, the [place] Accu- Chek InformII meters hould not be used for Glu cose determinations. Draw a venous Glucose and send to the Main Lab for Analysis. POC Glucose, [id number] 11:24:00 Test Item Value Reference Range Interpretation Comments POC Glucose (test 269 mg/dL 70-115 H If you con supervisor cook house your code = POCGLUC) patient crit ically ill, the [place] Accu- Chek InformII meters hould not be used for Glu cose determinations. Draw a venous Glucose and send to the Main Lab for Analysis. XR CHEST 2 [id number] 18:35:18CLINICAL INFORMATION: Preprocedural evaluation. Checkup..Dictation Location: R [...] National Kidney Foundation,http ://nkd ep.nih.gov CBC with [id number] 18:08:00 Test Item Value Reference Range Interpretation [...] code = ALYMPH) 2.0 K/cumm 0.5-4.6 N [place] Abs (test code = AMONO) 0.3 K/cumm 0.0-1.2 N Eos Abs (test code = AEOS) 0.14 K/cumm 0.00-0.74 N Baso Abs (test code = ABASO) 0.0 K/cumm 0.00-0.21 N US DUPLX EXT VEIN COMPRS, [id number] 13:22:06DICTATION LOCATION: [id number]: I82.409: ACUTE EMBOLISM AND THOMBOS UNSP DEEP [...] Notes Date/Time Note Provider Source 2022-08-21 20:23:00-00:00 [facility] ([facility] EMERGENCY PROVIDER REPORT REPORT#:[id number] REPORT STATUS: Signed DATE:08/21/22 TIME: 2022 PATIENT: KAT AGUILAR UNIT #: [id number] ROOM/BED: AGE: 52 SEX: F PCP PHYS: Collin Beasley MD SERVICE AUTHOR: Andrea Suarez MD * ALL edits or amendments must be made on the el Guomai/computer document * HPI-Abd Pain F 40 and [...] (ZOFRAN ODT) 4 MG PO Q6H PRN MI N NAUSEA/VOMITING #15 TABS Prov: 02/22/22 Reported [...] 08/21 1952 Pulse 71 08/21 1951 Resp 08/21 Last Documented: Result Date Time Pulse Ox [...] Diagnostics Lab Results Interpretation Results Laboratory Tests: 12/08/21 Blood Gas Sodium (134 - 147 mmol/L) [...] pH (5.0 - 7.0) 6 Ur Specific [place] (1.005 - 1.030) 1.020 POC Urine Protein [...] imaging is recommended. SL:131 Impression By: Harrison - Daniel Morrison M.D. ECG #1 Interpretation Date 08/21/22 [...] MG X1ED STA 08/21 2007 DC 12 /14 IV 08/21 Electrolytic, Caloric, And [place] Sig/James Start time Last Medication Dose Route Stop Time Status Admin Sodium Chloride 1,000 ML X1ED STA 08/21 2123 C AN IV 08/21 2222 Gastrointestinal Drugs Sig/James Start time Last Medication Dose Route Stop Time Status Admin Ondansetron HCl 4 MG X1ED STA 08/21 2000 DC 12/ 14 IV 08/21 Patient Discharge Departure Vital Signs/Condition Vital Signs [...] (ZOFRAN ODT) 4 MG PO Q6H PRN MI N NAUSEA/VOMITING #15 TABS Patient Instructions ED [...] physician or other designated or consulting phys duglas as outlined in the discharge instructions. The [...] symptoms should prompt an immediate return to [facility] or the closest emergency department or a call to 911. at 2219 RPT #:[id number] END OF REPORT 2022-02-22 11:41:00-00:00 [facility] ([facility]) EMERGENCY PROVIDER REPORT REPORT#:[id number] REPORT STATUS: Signed DATE:02/22/22 TIME: 1141 PATIENT: KAT AUGILAR UNIT #: [id number] ROOM/BED: AGE: 51 SEX: F PCP PHYS: Collin Beasley MD SERVICE AUTHOR: Corby Hay MD * ALL edits or amendments must be made on the Calvin/computer document * HPI-General Illness General Confirmed Patient [...] recorded in the EMR reports to the [facility] emergency department [place], [place] via [facility] with complaints of mouth, tongue, teeth numbness after accidentally ingesting a straw full of some household cleaning product that she thinks was Lu brush cleaner. 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 Patient reports that she poured what she thought was a large glass of ice water when in reality it was a glass of this unknown cleaning agent. Patient thinks it was [employer] brand brush cleaner. Patient seen immediately upon arrival a [...] - Adult Stated Complaint ONE DRINK OF TRAINING REPRESENTATIVE Allergies Coded Allergies: Iodinated Contrast Media (Severe, [...] 15 ML X1ED STA 02/22 1141 DC 02/06 7 PO 02/22 1142 1201 Gastrointestinal Drugs Sig/James [...] (ZOFRAN ODT) 4 MG PO Q6H PRN MI N NAUSEA/VOMITING #15 TABS Patient Instructions Ingestion [...] symptoms should prompt an immediate return to [facility] or the closest emergency department or a call to 911. Electronically Signed by Corby Hay MD on 0 02/22/22 at 2126 [facility] #:[id number] END OF REPORT 2022-01-21 08:25:00-00:00 [facility] ([facility] Discharge Summary REPORT#:[id number] REPORT STATUS: Signed DATE:01/21/22 TIME: 824 PATIENT: KAT AGUILAR UNIT #: [id number] ROOM[facility]BED: [facility] : 69 AGE: 51 SEX: F ATTEND: Eulalia Hilario MD ADM AUTHOR: Jackie Almanza * ALL edits or amendments must be made on the el [employer]/computer document * General Information Discharge date: 01/18/22 [...] undergo PT for gait training, mobilization , ymivf-wu-zqiyru, and strengthening. Patient was i nformed to that they need to arrange for therapy as quickly as possible. The imp ortance of early advancement of duyve-nw-wmzxng with home exercises, and physical therapy was stressferny colon to the patient. Follow-up Appointment: Patient instructe [...] MD on 01/06 03/29 at 0813 RPT #:[id number] END OF REPORT 2022-01-18 09:04:00-00:00 [facility] DT Operative Note REPORT#:[id number] REPORT STATUS: Signed DATE:01/18/22 TIME: 903 PATIENT: KAT AGUILAR UNIT #: [id number] ROOM/BED: [address] : [birth year] AGE: 51 SEX: F ATTEND: Eulalia Hilario MD ADM AUTHOR: Eulalia Hilario MD * ALL edits or amendments must be made on the el Guomai/computer document * See Addendum Operative Report Operative Note Note: ORTHO OP NOTE Patient Name: Kat Aguilar : [] DOS: 01/18/22 Pre-op Diagnosis: Left Knee Osteoarthritis Post-op Diagnosis: Same Procedure: Left TKR Surgeon: Eulalia Hilario MD Tile Fitter: Mera THAPA Anesthesia Type: TIVA/Adductor Canal EBL: [...] patella lateral and the knee flexed. The X2IMPACT robotic system was then brought into t he field. Femoral and tibial pins were placed. Trackers were placed and the k nee registered. The robotic arm was then used to enter the field and perform haseeb resection with appropriate retraction of critical struc tures. Adjustments to implant position included 1 degree internal rotation of femur. The laminar glass ribbon machine operator was th en placed medial and the [...] needle and sponge counts were correct. The p atient was then awoke from general anesthetic, placed on the transp ort bed, and taken back to recovery. I was present for all portions of the procedure. As I am not part of a teaching program no reside nt or fellow was available to assist with this surgery. Mera Florence was employed as a water quality assistant to provide retraction of critical neurovascular structures and provide the appropriate exposure needed to perform this comp remy procedure. Both my hands are necessary for this procedure so the help of the home care assistant was invaluable. FOLLOWUP: The Patient will [...] Hilario MD on 01/06 11/27 at 1333 [facility] #:[id number] END OF REPORT 2022-01-01 12:07:00-00:00 [id number] [place] [address] PATIENT NAME: KAT AGUILAR ADMIT DATE: ACCOUNT NO: [id number] ROOM NO: AGE: 51 REPORT TYPE: ELECTROCARDIOGRAM SEX: F ADMITTING PHYSICIAN: ATTENDING PHYSICIAN:Eulalia Hilario MD Order: [id number] Test Reason : HTN Test Date/Time Stamp: [...] was found Confirmed by LUCERO HOOD MD ([id number]) on 01/07/2022 8 :34:36 PM Referred By: Eulalia Hilario Confirmed by:LUCERO Colon PATIENT NAME: KAT AGUILAR ACCOUNT #: [id number] 2019-02-22 06:39:00-00:00 [facility] ([facility]) Discharge Summary REPORT#:[id number] REPORT STATUS: Signed DATE:02/22/19 TIME: 638 PATIENT: CARLEE AGUILAR UNIT #: [id number] ROOM/BED: [place] [address] : [birth year] AGE: 48 SEX: F ATTEND: Key Orozco MD ADM AUTHOR: Nichole Orozco MD * ALL edits or amendments must be made on the Calvin/FinalCAD document * PCP PCP Discharge to: home [...] Extremities: no edema-all extremities Musculoskeletal: normal inspection Neuro/MIXER OPERATOR RAW SALT: alert, oriented X 3 Quality Medications Current medication review: I attest that the foregoing medication list in [facility] medical record is true, accurate, and complete to the best of my knowled ge. at 0641 RPT #:[id number] END OF REPORT 2019-01-21 12:24:00-00:00 [facility] ([facility]) Pain Management Progress Note REPORT#:[id number] REPORT STATUS: Signed DATE:01/21/19 TIME: 1224 PATIENT: CARLEE AGUILAR UNIT #: [id number] ROOM/BED: [address]: [birth year] AGE: 48 SEX: F ATTEND: Key Orozco MD ADM AUTHOR: Alethea Bae ADVERTISING SALES EXECUTIVE * ALL edits or amendments must be made on the el ectronic/computer document * Subjective Comments: No acute issues. Pain improved with PRN meds. wi ll f/u with neuro and pain management outpatient. Allergies Allergy Severity Reaction Updated Coded iodine Severe ITCHING 10/21/17 Sulfa (Sulfonamide Intermediate HIVES 11/16/16 Antibiotics) ketorolac (From TORADOL) Mild RASH 11/16/16 Uncoded IV CONTRAST Severe HIVES, ITCHING, TROUBLE BREATHING. NSIADS Unknown HAD GASTRIC BYPASS 10/25/18 [...] at L4-5. 3. No disc herniation. SL: [id number] Impression By: Eber Sutton [facility] - MRI BRAIN W/O CONT 01/19 1343 Report Impression - Status: SIGNED Entered: 01/19/2019 1350 IMPRESSION: No acute intracranial abnormality. SL: [id number] Impression By: Eber Sutton Vital Signs: Date [...] 0831 Levothyroxine Sodium 25 MCG DAILY 01/19 0900 AC 01/21 PO 02/18 0859 0830 Lisinopril 10 MG DAILY 01/19 0900 AC 01/21 PO 02/18 0859 0831 Loratadine [...] Extremities: moves all, no clubbing, no cyanosis Neuro/MIXER OPERATOR RAW SALT: alert, oriented X 3 Skin: dry, warm Results Results: labs reviewed, vital signs stable Diagnosis, Assessment Plan Problem List/A P: 1. Paresthesia 2. Neuropathy Free text A P: This is a 48-year-old female with a past medical history of neuropathy, Heather-en-Y surgery, hypertension, hypothyroidism, and other comorbidities, who presented [facility] room complaining of paresthesias and generalized myalgias. [...] q6hrs if pt remains hospita lized. B. [place] 5/325 mg will be utilized for pain 4 to 6. C. [place] 10/325 will be utilized for pain rating scale 7 to 10 p.r.n. 7. Deep vein thrombosis as w ell as peptic ulcer disease prevention per internal medicine. The patient does have a history of gas trointestinal bleeds. Will send lyrica and norco f or DC today to [facility]. She can f/u in our office. Information given. at 1226 RPT #:[id number] END OF REPORT 2019-01-21 12:24:00-00:00 [facility] ([facility]) Pain Management Progress Note REPORT#:[id number] REPORT STATUS: Signed DATE:01/21/19 TIME: 1224 PATIENT: CARLEE AGUILAR UNIT #: [id number] ROOM/BED: [place] [address] : [birth year] AGE: 48 SEX: F ATTEND: Key Orozco MD ADM AUTHOR: Alethea Bae NP * ALL edits or amendments must be made on the Calvin/computer document * Subjective Comments: No acute issues. [...] at L4-5. 3. No disc herniation. SL: [id number] Impression By: Eber Sutton [employer]ON[facility] IMAGING - MRI BRAIN W/O CONT 01/19 1343 Report Impression - Status: SIGNED Entered: 01/19/2019 1350 IMPRESSION: No acute intracranial abnormality. SL: [id number] Impression By: Eber Sutton Vital Signs: Date [...] Aspirin 81 MG DAILY 01/19 0900 AC 01/21 PO 02/18 0859 0830 Estradiol 1 MG DAILY 01/19 0900 AC 01/21 PO 02/18 0859 0831 Levothyroxine Sodium 25 MCG DAILY 01/19 0900 AC 01/21 PO 02/18 0859 0830 Lisinopril 10 MG DAILY 01/19 09 AC 01/21 PO 02/18 0859 0831 Loratadine 10 MG DAILY 01/19 0900 AC 01/21 PO 02/18 0859 0830 Pantoprazole 40 MG DAILY 01/19 0900 AC 01/21 PO 02/18 0859 0830 Zolpidem Tartrate 10 MG BEDTIME 01/18 2100 AC PO 02/17 205 Ketorolac 30 MG Q6H PRN PRN 01/18 [...] Extremities: moves all, no clubbing, no cyanosis Neuro/MIXER OPERATOR RAW SALT: alert, oriented X 3 Skin: dry, warm Results Results: labs reviewed, vital signs stable Diagnosis, Assessment Plan Problem List/A P: 1. Paresthesia 2. Neuropathy Free text A P: This is a 48-year-old female with a past medical history of neuropathy, Heather-en-Y surgery, hypertension, hypothyroidism, and other comorbidities, who presented [facility] room complaining of paresthesias and generalized myalgias. [...] q6hrs if pt remains hospita lized. B. [place] 5/325 mg will be utilized for pain 4 to 6. C. [place] 10/325 will be utilized for pain rating scale 7 to 10 p.r.n. 7. Deep vein thrombosis as w ell as peptic ulcer disease prevention per internal medicine. The patient does have a history of gas trointestinal bleeds. Will send lyrica and norco f or DC today to [facility]. She can f/u in our office. Information given. at 1226 Electronically Signed by Cleo Bautista MD on at 1600 RPT #:[id number] END OF REPORT 2019-01-21 11:30:00-00:00 [facility] REPORT#:[id number] REPORT STATUS: Signed DATE:01/21/19 TIME: 1130 PATIENT: CARLEE AGUILAR UNIT #: [id number] ROOM/BED: [place] [address] : 68 AGE: 48 SEX: F ATTEND: Key Orozco MD ADM AUTHOR: Jocelin Jones MD * ALL edits or amendments must be made on the el ectronic/computer document * Subjective HPI: pain in legs. Objective Physical Exam VS: Last Documented: Result Date Time Pulse Ox 94 01/21 1112 B/P 125/76 01/21 1112 B/P Mean 92.4 01/21 1112 Pulse 61 01/21 1112 Resp 15 01/21 111 Temp 36.9 01/21 0715 O2 Delivery Room air 01/20 8073 Medications: Current Home Medications LEVOTHYROXINE (SYNTHROID) 25 [...] Al Hydrox/Mg Hydrox/Simethicone 30 ML Q4H PRN MI N PO Docusate Sodium 100 MG BID PRN PRN PO Ondansetron HCl 4 MG Q4H PRN PRN IV General appearance: alert, awake Head/Eyes: atraumatic ENT: moist mucosal membranes Neck: full range of motion Cardiovascular: normal heart sounds Respiratory: aerating well Abdomen: soft Extremities: moves all Musculoskeletal: full range of motion Neuro/MIXER OPERATOR RAW SALT: alert, oriented X 4, normal speech, E [...] Jones MD on 01/21 at 1130 RPT #:[id number] END OF REPORT 2019-01-20 13:01:00-00:00 [facility] ([facility]) Pain Management Progress Note REPORT#:[id number] REPORT STATUS: Signed DATE:01/20/19 TIME: 1301 PATIENT: CARLEE AGUILAR UNIT #: [id number] ROOM/BED: [place] [address] : 68 AGE: 48 SEX: F ATTEND: Key Orozco MD ADM AUTHOR: Alethea Bae ADVERTISING SALES EXECUTIVE * ALL edits or amendments must be made on the Calvin/computer document * Subjective Comments: pt states pain [...] % (Auto) (14.0 - 32.0 %) 14.7 [place] % (Auto) (4.8 - 9.0 %) 5.5 Eos % (Auto) (0.3 - 3.7 %) 0.1 L Baso % (Auto) (0.0 - 2.0 %) 0.1 Neut # (Auto) (2.0 - 7.6 x10 3/uL) 7.70 H Lymph # (Auto) (1.0 - 3.8 x10 3/uL) 1.43 [place] # (Auto) (0.1 - 0.8 x10 3/uL) [...] at L4-5. 3. No disc herniation. SL: [id number] Impression By: Eber Sutton [employer]ON[employer] IMAGING - MRI BRAIN W/O CONT 01/19 134 Report Impression - Status: SIGNED Entered: 01/19/2019 1350 IMPRESSION: No acute intracranial abnormality. SL: [id number] Impression By: Eber Sutton Vital Signs: Date Time Temp Pulse Resp B/P B/P Pulse O2 O2 F low FiO2 Mean Ox Delivery Rate 01/20 1110 36.6 48 18 149/76 100.0 100 Room ai r 01/20 0651 36.7 49 16 115/68 83.6 [...] Aspirin 81 MG DAILY 01/19 09 AC 01/20 PO 02/18 0859 0855 Estradiol 1 MG DAILY 01/19 09 AC 01/20 PO 02/18 0859 0853 Levothyroxine Sodium 25 MCG DAILY 01/19 09 AC 01/20 PO 02/18 0859 0851 Lisinopril 10 MG DAILY 01/19 09 AC 01/20 PO 02/18 0859 0854 Loratadine 10 MG DAILY 01/19 09 AC 01/20 PO 02/18 0859 0852 Pantoprazole 40 MG DAILY 01/19 09 AC 01/20 PO 02/18 0859 0851 Zolpidem [...] Extremities: moves all, no clubbing, no cyanosis Neuro/MIXER OPERATOR RAW SALT: alert, oriented X 3 Skin: dry, warm Results Results: labs reviewed, vital signs stable Diagnosis, Assessment Plan Problem List/A P: 1. Paresthesia 2. Neuropathy Free text A P: This is a 48-year-old female with a past medical history of neuropathy, Heather-en-Y surgery, hypertension, hypothyroidism, and other comorbidities, who presented [facility] complaining of paresthesias and generalized myalgias. [...] to q6hrs if pt remains hospitalized. B. [place] 5/325 mg will be utilized for pain 4 to 6. C. [place] 10/325 will be utilized for pain rating scale 7 to 10 p.r.n. 7. Deep vein thrombosis as w ell as peptic ulcer disease prevention per internal medicine. The patient does have a history of gas trointestinal bleeds. Will send lyrica and norco f or DC today to [facility]. She can f/u in our office. Information given. at 1307 RPT #:[id number] END OF REPORT 2019-01-20 13:01:00-00:00 [facility] Pain Management Progress Note REPORT#:[id number] REPORT STATUS: Signed DATE:01/20/19 TIME: 1301 PATIENT: CARLEE AGUILAR UNIT #: [id number] ROOM/BED: [place] [address] : 68 AGE: 48 SEX: F ATTEND: Key Orozco MD ADM AUTHOR: Alethea Bae ADVERTISING SALES EXECUTIVE * ALL edits or amendments must be made on the el ectronic/computer document * Subjective Comments: pt states pain [...] % (Auto) (14.0 - 32.0 %) 14.7 [place] % (Auto) (4.8 - 9.0 %) 5.5 Eos % (Auto) (0.3 - 3.7 %) 0.1 L Baso % (Auto) (0.0 - 2.0 %) 0.1 Neut # (Auto) (2.0 - 7.6 x10 3/uL) 7.70 H Lymph # (Auto) (1.0 - 3.8 x10 3/uL) 1.43 [place] # (Auto) (0.1 - 0.8 x10 3/uL) 0.53 Eos # (Auto) (0.0 - 0.2 x10 3/uL) 0.01 Baso # (Auto) (0.0 - 0.2 x10 3/uL) 0.01 Abs Immat Gran (auto) (0.00 - 0.03 x10 3/uL) 0 .03 Add Manual Diff NO Immature Gran % [...] at L4-5. 3. No disc herniation. SL: [id number] Impression By: [email or web address] - Eber Marshall MAGNETIC RESONANCE IMAGING - MRI BRAIN W/O CONT 01/19 1343 Report Impression - Status: SIGNED Entered: 01/19/2019 1350 IMPRESSION: No acute intracranial abnormality. SL: [id number] Impression By: [email or web address] - Eber Marshall Vital Signs: Date Time Temp Pulse Resp [...] Extremities: moves all, no clubbing, no cyanosis Neuro/MIXER OPERATOR RAW SALT: alert, oriented X 3 Skin: dry, warm Results Results: labs reviewed, vital signs stable Diagnosis, Assessment Plan Problem List/A P: 1. Paresthesia 2. Neuropathy Free text A P: This is a 48-year-old female with a past medical history of neuropathy, Heather-en-Y surgery, hypertension, hypothyroidism, and other comorbidities, who presented [facility] complaining of paresthesias and generalized myalgias. [...] to q6hrs if pt remains hospitalized. B. [place] 5/325 mg will be utilized for pain 4 to 6. C. [place] 10/325 will be utilized for pain rating scale 7 to 10 p.r.n. 7. Deep vein thrombosis as w ell as peptic ulcer disease prevention per internal medicine. The patient does have a history of gas trointestinal bleeds. Will send lyrica and norco f or DC today to [facility]. She can f/u in our office. Information given. at 1307 Electronically Signed by Cleo Bautista MD on at 1600 RPT #:[id number] END OF REPORT 2019-01-20 11:17:00-00:00 [facility] Internal Medicine Prog. Note REPORT#:[id number] REPORT STATUS: Signed DATE:01/20/19 TIME: 1117 PATIENT: CARLEE AGUILAR UNIT #: [id number] ROOM/BED: [place] [address] : 68 AGE: 48 SEX: F ATTEND: Key Orozco MD ADM AUTHOR: Nichole Orozco MD * ALL edits or amendments must be made on the el ectronic/computer document * Subjective Free Text Subj Notes Free Text Subj Notes: doing ok no new complaints Diagnosis, Assessment Plan Problem List/A P: 1. Pleurisy 2. Paresthesia 3. Chest pain 4. Neuropathy Free Text A P: Continue pain meds as ordered- pain mgmt followi lionel, patti neurology eval appreciated - outpatient work up planned continue damien bright for d/c home at 2354 RPT #:[id number] END OF REPORT 2019-01-20 10:32:00-00:00 [facility] ([facility]) Neurology Progress Note REPORT#:[id number] REPORT STATUS: Signed DATE:01/20/19 TIME: 1032 PATIENT: CARLEE AGUILAR UNIT #: [id number] ROOM/BED: [place] [address] : 68 AGE: 48 SEX: F ATTEND: Key Orozco MD ADM AUTHOR: Jocelin Jones MD * ALL edits or amendments must be made on the Calvin/computer document * Subjective HPI: no evidence structural etiology Objective Physical Exam VS: Last Documented: Result Date Time Pulse Ox 95 01/20 0651 B/P 115/68 01/20 0651 B/P Mean 83.6 01/20 0651 Temp 36.7 01/20 0651 Pulse 49 01/20 0651 Resp 16 01/20 0651 O2 Delivery Room air 01/19 193 Medications: Current Home Medications LEVOTHYROXINE (SYNTHROID) 25 [...] Al Hydrox/Mg Hydrox/Simethicone 30 ML Q4H PRN MI N PO Docusate Sodium 100 MG BID PRN PRN PO Ondansetron HCl 4 MG Q4H PRN PRN IV General appearance: alert, awake Head/Eyes: atraumatic ENT: moist mucosal membranes Neck: full range of motion Cardiovascular: normal heart sounds Respiratory: aerating well Abdomen: soft Extremities: moves all Musculoskeletal: full range of motion Neuro/MIXER OPERATOR RAW SALT: alert, oriented X 4, normal speech, E [...] Jones MD on 01/20 at 1033 RPT #:[id number] END OF REPORT 2019-01-19 14:53:00-00:00 [facility] ([facility]) Clinical Note REPORT#:[id number] REPORT STATUS: Signed DATE:01/19/19 TIME: 1453 PATIENT: CARLEE AGUILAR UNIT #: [id number] ROOM/BED: [place] [address] : 69 AGE: 48 SEX: F ATTEND: Carmelo Orozco MD ADM AUTHOR: Alethea Bae ADVERTISING SALES EXECUTIVE * ALL edits or amendments must be made on the el ectronic/computer document * Clinical Note Note: Pain management consultation # [id number] at 1454 RPT #:[id number] END OF REPORT 2019-01-19 14:53:00-00:00 [facility] ([facility]) Clinical Note REPORT#:[id number] REPORT STATUS: Signed DATE:01/19/19 TIME: 1453 PATIENT: ACRLEE AGUILAR UNIT #: [id number] ROOM/BED: [place] [address] : 69 AGE: 48 SEX: F ATTEND: Key Orozco MD ADM AUTHOR: Alethea Bae NP * ALL edits or amendments must be made on the el ThinkSuitronic/computer document * Clinical Note Note: Pain management consultation # [id number] at 1454 Electronically Signed by Cleo Bautista MD on at 1600 RPT #:[id number] END OF REPORT 2019-01-19 14:47:00-00:00 [id number] [place] [address] PATIENT NAME: CARLEE AGUILAR ADMIT DATE: 01/18/19 ACCOUNT NO: [id number] ROOM NO: [facility] AGE: 48 REPORT TYPE: CONSULTATION REPORT SEX: F ADMITTING PHYSICIAN:Nichole Orozco MD ATTENDING PHYSICIAN:Nichole Orozco MD CONSULTATION DATE: 01/19/2019 CONSULTING PHYSICIAN: Cleo Bautista MD PAIN MANAGEMENT CONSULTATION NOTE PHYSICIAN REQUESTING CONSULTATION: Nichole burgos MD PHYSICIAN COMPLETING CONSULTATION: Cleo Bautista MD REASON FOR CONSULTATION: Neuropathic pain. 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 This started recently within the past w jackson. In regards to her bilateral lower extremity [...] morphine. She has been tri alled on [place] during her hospitalization with no success of assist in man aging her pain. PAST MEDICAL HISTORY: Hypertension, migraine dis order, hypothyroidism, obstructive sleep apnea, irritable bowel syndrom e, and neuropathy. PAST SURGICAL HISTORY: Cholecystectomy, hysterec gerardo, and Heather-en-Y surgery. FAMILY HISTORY: Noncontributory. SOCIAL HISTORY: The patient is a former smoker. She currently denies any PATIENT NAME: CARLEE AGUILAR [address] [phone] [place] [id number] PATIENT NAME: CARLEE AGUILAR ADMIT DATE: 01/18/19 ACCOUNT NO: [id number] ROOM NO: G.427 AGE: 48 REPORT TYPE: [...] and other comorbidities, who presented to the [facility] room complaining of paresthesias and generalized myalgias. [...] range of PATIENT NAME: CARLEE AGUILAR 27 [phone] [place] [id number] PATIENT NAME: CARLEE AGUILAR ADMIT DATE: 01/18/19 ACCOUNT NO: [id number] ROOM NO: G.427 AGE: 48 REPORT TYPE: [...] reduced to q. 4 hours p.r.n. B. [place] 5/325 mg will be utilized for pain 4 to 6. C. [place] 10/325 will be utilized for pain rating [...] the plan of care with Alethea Bae NP. I agree with the above documentation and plan. WT: CON:NITZA/MICHEAL.04/NTS Conf#: [id number]/DID#: [id number] Authenticated and Edited by Alethea Bae NP O n 01/20/19 1:49:24 PM Authenticated and Edited by Cleo Bautista MD On 01/23/19 4:07:44 PM Electronically Signed by Cleo Bautista MD on at 1609 at 1609 PATIENT NAME: CARLEE AGUILAR 2019-01-19 12:45:00-00:00 [facility]. [facility] REPORT#:[id number] REPORT STATUS: Signed DATE:01/19/19 TIME: 1245 PATIENT: CARLEE AGUILAR UNIT #: [id number] ROOM/BED: [place] [address] : 69 AGE: 48 SEX: F ATTEND: Key Orozco MD ADM AUTHOR: Nichole Orozco MD * ALL edits or amendments must be made on the Calvin/computer document * Subjective Free Text Subj Notes Free Text Subj Notes: doing well HR more stable Objective General VS/I O: Vital Signs Date Temp Pulse Resp B/P B/P Mean Pulse Ox FiO2 01/20 36.4-36.9 47-73 14-20 102-152/61-81 75.9- 104.4 94-100 Last Documented: Result Date Time Pulse Ox 94 01/20 232 B/P 102/66 01/20 2323 B/P Mean 78.2 01/20 2323 O2 Delivery Room air 01/20 2323 Temp 36.7 01/20 232 Pulse 48 01/20 2323 Resp 14 01/20 2323 24 hour I O ending at 0700: [...] eval activity as tolerates at 2353 RPT #:[id number] END OF REPORT 2019-01-19 10:16:00-00:00 [facility] ([facility]) Neurology Consultation Note REPORT#:[id number] REPORT STATUS: Signed DATE:01/19/19 TIME: 1016 PATIENT: CARLEE AGUILAR UNIT #: [id number] ROOM/BED: [place] [address] : 69 AGE: 48 SEX: F ATTEND: Key Orozco MD ADM AUTHOR: Joeclin Jones MD * ALL edits or amendments must be made on the Calvin/computer document * History of Present Illness HPI [...] Result Date Time Pulse Ox 100 01/19 757 B/P 137/82 01/19 757 B/P Mean 100.1 01/19 757 Temp 36.8 01/19 757 Pulse 47 01/19 757 Resp 14 01/19 757 O2 Delivery Room air 01/18 2229 Medications: Current Home Medications LEVOTHYROXINE (SYNTHROID) 25 [...] Al Hydrox/Mg Hydrox/Simethicone 30 ML Q4H PRN MI N PO Docusate Sodium 100 MG BID [...] moves all Musculoskeletal: full range of motion Neuro/MIXER OPERATOR RAW SALT: alert, oriented X 4, normal speech, E [...] Jones MD on 01/19 at 1020 RPT #:[id number] END OF REPORT 2019-01-18 14:46:00-00:00 [facility] ([facility]) History Physical - Adult REPORT#:[id number] REPORT STATUS: Signed DATE:01/18/19 TIME: 1446 PATIENT: CARLEE AGUILAR UNIT #: [id number] ROOM/BED: [place] [address] : 69 AGE: 48 SEX: F ATTEND: Key Orozco MD ADM AUTHOR: Nichole Orozco MD * ALL edits or amendments must be made on the Calvin/computer document * History of Present Illness HPI [...] guarding Extremities: moves all Musculoskeletal: normal inspection Neuro/MIXER OPERATOR RAW SALT: alert, oriented X 3 Diagnosis, Assessment Plan [...] that the foregoing medication list in t he medical record is true, accurate, and complete to the best of my knowled ge. at 1519 RPT #:[id number] END OF REPORT 2019-01-18 07:09:00-00:00 [facility] ([facility]) EMERGENCY PROVIDER REPORT REPORT#:[id number] REPORT STATUS: Signed DATE:01/18/19 TIME: 708 PATIENT: CARLEE AGUILAR UNIT #: [id number] ROOM/BED: [place] [address] AGE: 48 SEX: F PCP PHYS: Collin Beasley MD SERVICE AUTHOR: Dick Silverman MD * ALL edits or amendments must be made on the Calvin/computer document * HPI-GI Bleed/Rectal Prob General Confirmed Patient Yes Initial Greet Date/Time 01/18/19 0649 PCP Collin Beasley - PCP ([facility]) Presentation Chief Complaint Rectal bleeding Bleeding Severity [...] Pulse 46 01/18 1107 Resp 18 01/18 110 Temp 36.9 01/18 0656 Review of Vital [...] (Auto) (14.0 - 32.0 %) 32.1 H [place] % (Auto) (4.8 - 9.0 %) 7.2 Eos % (Auto) (0.3 - 3.7 %) 3.0 Baso % (Auto) (0.0 - 2.0 %) 0.4 Neut # (Auto) (2.0 - 7.6 x10 3/uL) 3.08 Lymph # (Auto) (1.0 - 3.8 x10 3/uL) 1.73 [place] # (Auto) (0.1 - 0.8 x10 3/uL) 0.39 Eos # (Auto) (0.0 - 0.2 x10 3/uL) 0.16 Baso # (Auto) (0.0 - 0.2 x10 3/uL) 0.02 Abs Immat Gran (auto) (0.00 - 0.03 x10 3/uL) 0 .01 Add Manual Diff NO Immature Gran % (0.0 - 2.0 %) 0.2 Nucleated RBC % (0 - 0 %) 0.0 Nucleated RBCs # (Man) (0.0 - 0.1 x10 3/uL) 0.0 0 Microbiology: Date/Time Procedure - Status Source Growth 01/18 1129 MRSA DNA Surveillance Screen - ORD NASAL Recent Impressions: RADIOLOGY - XR CHEST 2 V 01/188 Report Impression - Status: SIGNED Entered: 01/18/2019 0804 IMPRESSION: Normal Chest X-ray. Impression By: Hans Tamayo M.D. CAT SCAN - CT ANGIO CHEST 01/18 1018 Report Impression - Status: SIGNED Entered: 01/18/2019 1042 IMPRESSION: 1. Negative for pulmonary embolism. 2. No acute abnormality demonstrated to account for the patient's symptoms. SL: [id number] Impression By: Lexx Diaz M.D. Lab Imaging Statement Laboratory radiographic studies reviewed and con sidered in the medical decision-making. Point of Care Testing Pulse Oximetry Pulse Ox % 98 On: Room air Interpretation Interpreted by mo, Pulse oximetr y normal Time 0656 ECG #1 Interpretation Date 01/18/19 Time 0734 Interpreted by ED physician NL ECG Interpretation Normal sinus rhythm, No ST NORBERTO, Normal axis, Normal intervals, no T wave inversions, no ST elevation s Rate 54 Rhythm Bradycardia Free Text I D Notes Free Text I D Notes RADIOLOGY - XR CHEST 2 V 01/18 758 Report Impression - Status: SIGNED Entered: 01/18/2019 0804 Interpreted by Radiologist Reviewed by ED Physician IMPRESSION: Normal Chest X-ray. Impression By: Hans Tamayo M.D. CAT SCAN - CT ANGIO CHEST 01/18 1018 Report Impression - Status: SIGNED Entered: 01/18/2019 1042 Interpreted by Radiologist Reviewed by ED Physician IMPRESSION: 1. Negative for pulmonary embolism. 2. No acute abnormality demonstrated to account for the patient's symptoms. SL: [id number] Impression By: Lexx Diaz M.D. Portions of [...] 4 MG X1ED STA 01/18 1009 DC IV 01/18 1010 1107 Hydrocodone Bitart/ 1 TAB X1ED STA 01/18 0748 D C 01/18 Acetaminophen PO 01/18 0749 0806 Diagnostic Agents Sig/Jamse Start time Last Medication Dose Route Stop [...] Pulse Ox 98 01/18 0656 B/P 143/67 / 0656 B/P Mean 92 01/18 0656 O2 Delivery Room air 01/18 0656 Temp 36.9 01/18 0656 Pulse 59 01/18 0656 Resp 18 01/18 0656 Last Documented: Result Date Time Pulse Ox 95 01/18 1107 B/P 144/65 / 1107 B/P Mean 91 01/18 1107 O2 Delivery Room air 01/18 1107 Pulse 46 / 1107 Resp 18 01/18 1107 Temp 36.9 [...] by Dick Silverman MD on at 0812 [facility] #:[id number] END OF REPORT 2018-11-13 14:59:00-00:00 [phone] [place], [place] [address] PATIENT NAME: CARLEE AGUILAR ADMIT DATE: 10/28/18 ACCOUNT NO: [id number] ROOM NO: G.4497 AGE: 48 REPORT TYPE: [...] history of obstructive sleep apnea on CPAP, pom-whlwbcx-dpvvdzvkg diabetes mellitus with hemoglobin A1c 5.5, hypertension, hypothyroidism, and IBS, presented with chest pa in with negative troponin x2. Operating Engineer was consulted a nd the patient underwent [...] physician in 1 week and with the cage shift manager as instructed and with GI in 2 weeks. Dictated By: Isis Estrada MD WT: DS:NITZA/ROBERT/NOHEMI Conf#: [id number]/DID#: [id number] Authenticated by Isis Estrada MD On 11/16/19 11:04:15 AM at 1104 PATIENT NAME: CARLEE AGUILAR 2018-10-29 18:04:00-00:00 [facility] REPORT#:[id number] REPORT STATUS: Signed DATE:10/29/18 TIME: 1804 PATIENT: CARLEE AGUILAR UNIT #: [id number] ROOM/BED: [place] [address] : 69 AGE: 48 SEX: F ATTEND: Claribel Estrada MD ADM AUTHOR: Dario Singh MD * ALL edits or amendments must be made on the Calvin/computer document * Subjective Chief Complaint: Chest pain/ [...] full range of motion, normal in spection Neuro/MIXER OPERATOR RAW SALT: alert, normal speech Psychiatry: normal affect, normal judgment/insig ht, normal mood Results Findings/Data: Laboratory Tests 10/29 10/29 10/29 10/28 1127 0854 0930 1953 Chemistry Sodium (134 - 147 mEq/L) [...] (Auto) (14.0 - 32.0 %) 36.4 H [place] % (Auto) (4.8 - 9.0 %) 6.9 Eos % (Auto) (0.3 - 3.7 %) 3.4 Baso % (Auto) (0.0 - 2.0 %) 0.4 Neut # (Auto) (2.0 - 7.6 x10 3/uL) 2.50 Lymph # (Auto) (1.0 - 3.8 x10 3/uL) 1.73 [place] # (Auto) (0.1 - 0.8 x10 3/uL) [...] Hrs ULTRASOUND - DUP VEIN UNI/LTD 10/29 1430 Report Impression - Status: SIGNED Entered: 10/29/2018 1525 IMPRESSION: 1. [facility] SL: [id number] Impression By: Cameron Chanel M.D. Recent Impressions: ULTRASOUND - DUP VEIN UNI/LTD 10/29 143 Report Impression - Status: SIGNED Entered: 10/29/2018 1525 IMPRESSION: 1. No deep [facility] SL: [id number] Impression By: Cameron Chanel M.D. Results: labs reviewed, vital signs [...] Singh MD on 10/31 at 1006 RPT #:[id number] END OF REPORT 2018-10-28 21:10:00-00:00 [facility] Card[facility] Progress Note REPORT#:[id number] REPORT STATUS: Signed DATE:10/28/18 TIME: 2109 PATIENT: CARLEE AGUILAR UNIT #: [id number] ROOM/BED: [place] [address] : 69 AGE: 48 SEX: F ATTEND: Scott Estrada mmad, MD ADM AUTHOR: Dario Singh MD * ALL edits or amendments must be made on the el Guomai/computer document * Subjective HPI: Continues to have [...] Recommendations: Symptomatic treatment From a cardiac standpoint pa jeromy can be discharged home with the plan to follow up with us in 2 months. Patient is undergoing GI workup and endoscopy by Dr. Campbell Electronically Signed by Dario Singh MD on 10/28 at 2112 RPT #:[id number] END OF REPORT 2018-10-28 12:50:00-00:00 [facility] ([facility]) Hospitalist Progress Note REPORT#:[id number] REPORT STATUS: Signed DATE:10/28/18 TIME: 1250 PATIENT: CARLEE AGUILAR UNIT #: [id number] ROOM/BED: [place] [address] : 69 AGE: 48 SEX: F ATTEND: Scooby Ross MD ADM AUTHOR: Isis Estrada MD * ALL edits or amendments must be made on the Calvin/FinalCAD document * Subjective Chief Complaint: pt states dysuria, frequency urine and pain. Objective General VS/I O: Vital Signs: Date Time Temp Pulse Resp B/P B/P Pulse O2 O2 F low FiO2 Mean Ox Delivery Rate 10/28 1132 36.8 83 16 100/66 77.0 96 Room air 10/28 1036 36.5 58 14 106/62 76.9 96 10/28 0935 36.2 60 14 122/70 96 Room air 10/28 0920 57 18 143/77 97 Room air 10/28 0908 Room air 10/28 0905 58 16 122/70 95 Room air 10/28 0904 Nasal 2.009007 cannula 10/28 0900 59 21 124/67 97 Nasal 4.797800 cannula 10/28 0855 61 18 136/63 94 Nasal 4.300529 cannula 10/28 0850 55 16 127/65 98 Nasal 4.950881 cannula 10/28 0845 62 17 127/67 98 Nasal 4.894228 cannula 10/28 0840 36.2 63 16 127/67 96 Nasal 4.394032 cannula 10/28 0830 67 18 167/84 100 Room air 10/28 0516 36.5 49 18 142/75 97.7 99 10/27 2328 36.7 61 18 120/64 82.9 96 10/27 1943 36.4 77 18 134/78 96.5 94 24 [...] PACU Q10MIN PRN PRN IV (DC ) Hydralazine HCl 2 MG PACU Q10MIN PRN [...] normal bowel sounds, soft Extremities: no edema Neuro/MIXER OPERATOR RAW SALT: alert, oriented X 3, normal speech Results [...] % (Auto) (14.0 - 32.0 %) 26.7 [place] % (Auto) (4.8 - 9.0 %) 6.3 Eos % (Auto) (0.3 - 3.7 %) 0.9 Baso % (Auto) (0.0 - 2.0 %) 0.5 Neut # (Auto) (2.0 - 7.6 x10 3/uL) 4.25 Lymph # (Auto) (1.0 - 3.8 x10 3/uL) 1.73 [place] # (Auto) (0.1 - 0.8 x10 3/uL) [...] (5.0 - 7.0) 8.0 H Ur Specific [place] (1.005 - 1.030) 1.003 L Urine Protein [...] ON FULL DOSE LOVENOX at 1255 RPT #:[id number] END OF REPORT 2018-10-28 12:31:00-00:00 [facility]) Pulmonology Progress Note REPORT#:[id number] REPORT STATUS: Signed DATE:10/28/18 TIME: 1231 PATIENT: CARLEE AGUILAR UNIT #: [id number] ROOM/BED: [place] [address] : 69 AGE: 48 SEX: F ATTEND: Scooby Ross MD ADM AUTHOR: Aurora Mae MD * ALL edits or amendments must be made on the el Guomai/computer document * Review of Systems ROS Constitutional: [...] Resp 16 10/28 1132 O2 Flow Rate 2.653915 10/28 0904 24 hour I O ending [...] by Aurora Mae MD on 10/10 at 1231 RPT #:[id number] END OF REPORT 2018-10-28 11:26:00-00:00 [id number] [place] [address] PATIENT NAME: CARLEE AGUILAR ADMIT DATE: 10/28/18 ACCOUNT NO: [id number] ROOM NO: [facility] AGE: 48 REPORT TYPE: OPERATIVE REPORT SEX: F ADMITTING PHYSICIAN:Isis Estrada MD ATTENDING PHYSICIAN:Isis Estrada MD OPERATION DATE: 10/28/2018 PREOPERATIVE DIAGNOSES: Nausea, vomiting, and dy sphagia. POSTOPERATIVE DIAGNOSES: Normal Heather-en-Y gastri c bypass anatomy and esophagitis. PROCEDURE: Esophagogastroduodenoscopy. SURGEON: Keaton Campbell MD TRANSITIONAL LIVING SPECIALIST: None ANESTHESIA: MAC. INTRAVENOUS FLUIDS: Crystalloid. BLOOD [...] care. Dictated By: Keaton Campbell MD WT: OP:GGARETT/LUDIVINA/NTS Conf#: [id number]/DID#: [id number] PATIENT NAME: CARLEE AGUILAR 02 Authenticated and Edited by Keaton Campbell MD On 10/10 5:31:50 PM Electronically Signed by Keaton Campbell MD on at 1742 PATIENT NAME: CARLEE AGUILAR 202 2018-10-27 21:30:00-00:00 [facility] REPORT#:[id number] REPORT STATUS: Signed DATE:10/27/18 TIME: 2129 PATIENT: CARLEE AGUILAR UNIT #: [id number] ROOM/BED: [place] [address] : 69 AGE: 48 SEX: F ATTEND: Scooby Ross MD ADM AUTHOR: Isis Estrada MD * ALL edits or amendments must be made on the el Guomai/computer document * Clinical Note Note: Came twice to see pt but 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 vitals, labs and imaging studies were reviewed. ATYPICAL CP - MULTIPLE RISKS, CARD SEEN, ECHO EF 50%, CATH SCHEDULED AT [facility], BUT MAY HAVE TO RESCHEDULED, PER CARD, [...] ON FULL DOSE LOVENOX at 2131 RPT #:[id number] END OF REPORT 2018-10-27 16:42:00-00:00 [phone] [place] [address] PATIENT NAME: CARLEE AGUILAR ADMIT DATE: 10/28/18 ACCOUNT NO: [id number] ROOM NO: G.4497 AGE: 48 REPORT TYPE: CARDIAC CATHETERIZATION REPORT SEX: F ADMITTING PHYSICIAN:Isis Estrada MD ATTENDING PHYSICIAN:Isis Estrada MD PROCEDURE DATE: 10/27/2018 IRRIGATOR OVERHEAD: Corry Hilario MD PROCEDURES PERFORMED: 1. Left heart catheterization. 2. Selective coronary angiography. INDICATION: Ms. Carlee Aguilar is a 48-year-old [place] ucasian female, who has significant history of diabe giovanni, hypertension, and history of smoking, presented with chest and upper abdominal pain. Given her m ultiple risk factors, she is now brought [...] radial kathy ry was accessed and a 6-Burundian slender Terumo sheath was inserted. Following, radial cocktail contain ing 2.5 mg verapamil, 200 mcg nitroglycerin, and 3000 unit s of heparin was given intra-arterially. Following, selective coronary angiography and left heart ca theterization were performed using a 5-Bur[place]ian [place] catheter. Following careful review of angiographic findings, [...] rise to a very good caliber septal financial assistant. It then run s the course as [...] By: Corry Hilario MD WT: CATH:JOHANNY/ROBERT/NOHEMI Conf#: [id number]/DID#: [id number] Authenticated by Corry Hilario MD On 12/07 07:29:33 PM Electronically Signed by Corry Hilario MD o n 12/20/18 at 1929 PATIENT NAME: CARLEE AGUILAR 2018-10-27 10:54:00-00:00 [facility] ([facility]) Pulmonology Progress Note REPORT#:[id number] REPORT STATUS: Signed DATE:10/27/18 TIME: 1054 PATIENT: CARLEE AGUILAR UNIT #: [id number] ROOM/BED: [place] [address] : 69 AGE: 48 SEX: F ATTEND: Scooby Ross MD ADM AUTHOR: Aurora Mae MD * ALL edits or amendments must be made on the Calvin/computer document * Review of Systems ROS Constitutional: Denies: fever, generalized weakness, malaise. Respiratory: Reports: SOB. Denies: parox nocturnal dyspnea, p neumonia, wheezing. Cardiovascular: Denies: edema. Musculoskeletal: Denies: extremity swelling, lumbar pain, neck pa in. Heme: Denies: adenopathy, bleeding, bruising, petechia e, other. Objective Physical Exam VS/I O: Last Documented: Result Date Time O2 Delivery CPAP 10/27 1044 Pulse Ox 95 10/27 07 B/P 107/66 10/27 07 B/P Mean 79.6 10/27 07 Temp 98.1 10/27 07 Pulse 56 10/27 0729 Resp 16 10/27 07 24 hour I O ending at 0700: [...] no contrast was done due to patien stacey's contrast allergy no acute pathology. VQ low [...] MD on 10/09 05/27 at 1055 RPT #:[id number] END OF REPORT 2018-10-26 20:23:00-00:00 [facility] ([facility]) Cardiology Progress Note REPORT#:[id number] REPORT STATUS: Signed DATE:10/26/18 TIME: 2022 PATIENT: CARLEE AGUILAR UNIT #: [id number] ROOM/BED: [place] [address] : 69 AGE: 48 SEX: F ATTEND: Scooby Ross MD ADM AUTHOR: Dario Singh MD * ALL edits or amendments must be made on the Calvin/FinalCAD document * Subjective HPI: Patient still quite [...] motion abnormality. This patient was evaluated at [facility] and infectious she was suppos ed to get a cardiac catheterization done before she ended up here. T his point It does make sense for us to proceed with cardi ac catheterization and to find out for sure if this patient has any obstructive CAD. 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 Asked to evaluate due to pt hx of gas tric bypass November [address] Joe Carvalho. Pt reports she lost 101lbs. Pt reports [facility] these past 2 to 3 days, she [...] rebound, soft Musculoskeletal: full range of motion Neuro/MIXER OPERATOR RAW SALT: alert Skin: dry, intact Results Findings/Data: Laboratory [...] (Auto) (14.0 - 32.0 %) 42.1 H [place] % (Auto) (4.8 - 9.0 %) 6.2 Eos % (Auto) (0.3 - 3.7 %) 3.0 Baso % (Auto) (0.0 - 2.0 %) 0.6 Neut # (Auto) (2.0 - 7.6 x10 3/uL) 2.38 Lymph # (Auto) (1.0 - 3.8 x10 3/uL) 2.09 [place] # (Auto) (0.1 - 0.8 x10 3/uL) [...] disease see n. SL: [JSYED-H] Impression By: [email or web address] Raquel Marquez M.D. [...] by Lluvia Teague on at 1601 RPT #:[id number] END OF REPORT 2018-10-26 15:40:00-00:00 [facility] General Surgery Consultation REPORT#:[id number] REPORT STATUS: Signed DATE:10/26/18 TIME: 154 PATIENT: CARLEE AGUILAR UNIT #: [id number] ROOM/BED: [place] [address] : 68 AGE: 48 SEX: F ATTEND: Scott Estrada mmad, MD ADM AUTHOR: Lluvia Teague * ALL edits or amendments must be made on the Calvin/computer document * Lluvia Teague 10/26/18 1540: History of Present Illness HPI Reason for consult: hx of gastric bypass HPI: 48 yr old female w/ hx of bradycardia came to ED for chest pain. Asked to evaluate due to pt hx of gas tric bypass November [address] Joe Carvalho. Pt reports she lost 101lbs. Pt reports since she has been [facility] these past 2 to 3 days, she [...] 96/57 10/26 1108 B/P Mean 69.7 10/26 1107 Pulse 41 10/26 110 O2 Delivery CPAP 10/26 1105 Temp 36.7 10/26 110 Resp 18 10/26 110 24 hour I O ending at 0700: 10/26 0700 10/25 1900 Intake Total 700.00 Output Total Balance 700.00 Intake, IV 700.00 General appearance: alert, awake, no acute distr ess Head/Eyes: normal conjunctiva/sclera Neck: full range of motion Abdomen: non-tender, no distention, no guarding, no rebound, soft Musculoskeletal: full range of motion Neuro/MIXER OPERATOR RAW SALT: alert Skin: dry, intact Results Findings/Data: Laboratory [...] (Auto) (14.0 - 32.0 %) 42.1 H [place] % (Auto) (4.8 - 9.0 %) 6.2 Eos % (Auto) (0.3 - 3.7 %) 3.0 Baso % (Auto) (0.0 - 2.0 %) 0.6 Neut # (Auto) (2.0 - 7.6 x10 3/uL) 2.38 Lymph # (Auto) (1.0 - 3.8 x10 3/uL) 2.09 [place] # (Auto) (0.1 - 0.8 x10 3/uL) [...] RADIOLOGY - XR CHEST 1 V 10/24 0721 Report Impression - Status: SIGNED Entered: 10/25/2018 0022 IMPRESSION: No acute cardiopulmonary disease see n. SL: [JSYED-H] Impression By: Frieda Marquez M.D. ULTRASOUND - DUP VEIN RASHID [...] gastric bypass and cholecystectomy. SL:01 Impression By: Jannet Pham M.D . NUCLEAR MEDICINE - PULM VENT PERF IMAG [...] Plan discussed with: patient, significant other, Dr. Vázquez,Keaton 11/05/18 1643: Attestations Midlevel/Physician Attestation Physician attestation: I have personally interviewed and examined the p atient. All charts, labs, and imaging studies were reviewed. I agree with the PA/ADVERTISING SALES EXECUTIVE's findings, exam, and plan. Electronically Signed by Lluvia Teague on at 1601 RPT #:[id number] END OF REPORT 2018-10-26 15:40:00-00:00 [facility] REPORT#:[id number] REPORT STATUS: Signed DATE:10/26/18 TIME: 154 PATIENT: CARLEE AGUILAR UNIT #: [id number] ROOM/BED: [place] [address] : 69 AGE: 48 SEX: F ATTEND: Scott Estrada mmad, MD ADM AUTHOR: Lluvia Teague * ALL edits or amendments must be made on the el [employer]/computer document * Lluvia Teague 10/26/18 1540: History of Present Illness HPI Reason for consult: hx of gastric bypass HPI: 48 yr old female w/ hx of bradycardia came to ED for chest pain. Asked to evaluate due to pt hx of gas tric bypass November [address] Joe Carvalho. Pt reports she lost 101lbs. Pt reports since she has been [facility] these past 2 to 3 days, she [...] rebound, soft Musculoskeletal: full range of motion Neuro/MIXER OPERATOR RAW SALT: alert Skin: dry, intact Results Findings/Data: Laboratory [...] (Auto) (14.0 - 32.0 %) 42.1 H [place] % (Auto) (4.8 - 9.0 %) 6.2 Eos % (Auto) (0.3 - 3.7 %) 3.0 Baso % (Auto) (0.0 - 2.0 %) 0.6 Neut # (Auto) (2.0 - 7.6 x10 3/uL) 2.38 Lymph # (Auto) (1.0 - 3.8 x10 3/uL) 2.09 [place] # (Auto) (0.1 - 0.8 x10 3/uL) [...] RADIOLOGY - XR CHEST 1 V 10/24 2485 Report Impression - Status: SIGNED Entered: 10/25/2018 0022 IMPRESSION: No acute cardiopulmonary disease see n. SL: [JSYED-H] Impression By: [email or web address] Raquel Marquez M.D. [...] studies were reviewed. I agree with the PA/ADVERTISING SALES EXECUTIVE's findings, exam, and plan. Electronically Signed by Lluvia Teague on at 1601 Electronically Signed by Keaton Campbell MD on 9 at 1645 RPT #:[id number] END OF REPORT 2018-10-26 12:01:00-00:00 [facility] REPORT#:[id number] REPORT STATUS: Signed DATE:10/26/18 TIME: 1201 PATIENT: CARLEE AGUILAR UNIT #: [id number] ROOM/BED: [place] [address] : 69 AGE: 48 SEX: F ATTEND: Scooby Ross MD ADM AUTHOR: Chris Ny MD * ALL edits or amendments must be made on the Calvin/computer document * Subjective Chief Complaint: NO CP, AT , INFORMED OF NL VQ, ECHO/CT CHEST, PULM [...] normal bowel sounds, soft Extremities: no edema Neuro/MIXER OPERATOR RAW SALT: alert, oriented X 3, normal speech Results [...] (Auto) (14.0 - 32.0 %) 42.1 H [place] % (Auto) (4.8 - 9.0 %) 6.2 Eos % (Auto) (0.3 - 3.7 %) 3.0 Baso % (Auto) (0.0 - 2.0 %) 0.6 Neut # (Auto) (2.0 - 7.6 x10 3/uL) 2.38 Lymph # (Auto) (1.0 - 3.8 x10 3/uL) 2.09 [place] # (Auto) (0.1 - 0.8 x10 3/uL) [...] SEEN, ECHO EF 50%, CATH SCHEDULED AT [facility], BUT MAY HAVE TO RESCHEDULED, PER CARD, [...] Ny MD on 10/26 at 1207 RPT #:[id number] END OF REPORT 2018-10-26 11:51:00-00:00 [facility] ([facility]) Pulmonology Progress Note REPORT#:[id number] REPORT STATUS: Signed DATE:10/26/18 TIME: 1151 PATIENT: CARLEE AGUILAR UNIT #: [id number] ROOM/BED: [place] [address] : 69 AGE: 48 SEX: F ATTEND: Scooby Ross MD ADM AUTHOR: Aurora Mae MD * ALL edits or amendments must be made on the el [employer]/computer document * Review of Systems ROS Constitutional: [...] 1108 O2 Delivery CPAP 10/26 1106 Temp 98.1 10/26 1106 Resp 18 10/26 [...] MD on 10/09 04/26 at 1154 RPT #:[id number] END OF REPORT 2018-10-25 17:58:00-00:00 [facility] ([facility]) Pulmonary Consultation Note REPORT#:[id number] REPORT STATUS: Signed DATE:10/25/18 TIME: 1758 PATIENT: CARLEE AGUILAR UNIT #: [id number] ROOM/BED: M105-1 : 69 AGE: 48 SEX: F ATTEND: Scooby Ross MD ADM AUTHOR: Sonia Seymour MD * ALL edits or amendments must be made on the Calvin/computer document * History of Present Illness HPI [...] 10/25 1556 O2 Delivery Room air 10/25 155 Temp 36.5 10/25 1556 Pulse 47 10/25 [...] Extremities: no cyanosis Musculoskeletal: no muscle spasm 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 SL: [JSYED-H] Impression By: [email or web address] Raquel Marquez M.D. [...] Sonia Seymour MD on at 1812 RPT #:[id number] END OF REPORT 2018-10-25 16:32:00-00:00 [id number] [address] PATIENT NAME: CARLEE AGUILAR ADMIT DATE: 10/25/18 ACCOUNT NO: [id number] ROOM NO: [facility] AGE: 48 REPORT TYPE: eECHOCARDIOGRAM REPORT SEX: [...] well visualized. Pericardium: PATIENT NAME: CARLEE AGUILAR 02 There is no pericardial effusion. Aorta: The [...] 1635 PATIENT NAME: CARLEE AGUILAR 2018-10-25 11:08:00-00:00 [facility] ([facility]) Clinical Note REPORT#:[id number] REPORT STATUS: Signed DATE:10/25/18 TIME: 1108 PATIENT: CARLEE AGUILAR UNIT #: [id number] ROOM/BED: [place] [address] : 69 AGE: 48 SEX: F ATTEND: Scooby Ross MD ADM AUTHOR: Chris Ny MD * ALL edits or amendments must be made on the el [employer]/computer document * Clinical Note Note: SEEN BY DR. ROSS THIS AM. ATYPICAL CP - MULTIPLE RISKS, CARD SEEN, ECHO PE NDING, CATH SCHEDULED FOR TOMORROW AT [facility], BUT MAY HAVE TO CANCEL HIGH D-DIMER [...] Chris Ny MD on 10/25 at 1115 [facility] #:[id number] END OF REPORT 2018-10-25 09:11:00-00:00 [id number] [place] [address] PATIENT NAME: CARLEE AGUILAR ADMIT DATE: 10/25/18 ACCOUNT NO: [id number] ROOM NO: [facility] AGE: 48 REPORT TYPE: CONSULTATION REPORT SEX: [...] a syncopal spell, she was evaluated at [facility] and in fact, s he is scheduled [...] nausea and vomiting. PATIENT NAME: CARLEE AGUILAR 02 [phone] [place] [address] PATIENT NAME: CARLEE AGUILAR ADMIT DATE: 10/25/18 ACCOUNT NO: [id number] ROOM NO: M105 AGE: 48 REPORT TYPE: CONSULTATION REPORT SEX: [...] LABORATORY DATA AND DIAGNOSTIC STUDIES: EKG on admission shows normal sinus rhythm with some bradycardia, [...] thyroid function. PATIENT NAME: CARLEE AGUILAR 02 [phone] [place] [address] PATIENT NAME: CARLEE AGUILAR ADMIT DATE: 10/25/18 ACCOUNT NO: [id number] ROOM NO: G.M105 AGE: 48 REPORT TYPE: CONSULTATION REPORT SEX: F ADMITTING PHYSICIAN:Scooby Ross MD ATTENDING PHYSICIAN:Scooby Ross MD 3. CT scan of the chest, possibly. 4. Echocardiogram to assess LV function. 5. We will continue to follow and reassess after echocardiogram is done. Dictated By: Dario Singh MD WT: CON:NITZA/KARENA/ Conf#: [id number]/DID#: [id number] Authenticated by Dario Sinhg MD On 10/25/2018 01:11:54 PM Electronically Signed by Dario Singh MD on 10/09 03/26 at 1312 PATIENT NAME: CARLEE AGUILAR 2018-10-25 04:26:00-00:00 [id number] [address] PATIENT NAME: CARLEE AGUILAR ADMIT DATE: 10/25/18 ACCOUNT NO: [id number] ROOM NO: [facility] AGE: 48 REPORT TYPE: HISTORY AND PHYSICAL SEX: F ADMITTING PHYSICIAN:Scooby Ross MD ATTENDING PHYSICIAN:Scooby Ross MD ADMISSION DATE: 10/25/2018 CHIEF COMPLAINT: Chest pain. HISTORY OF PRESENT ILLNESS: The patient is a 48-year-old female with a history of diabetes and hypertension , who scheduled to get a cardiac catheterization at [facility] on Friday. The patient states that last night the patient became short of breath, having chest pain, substernal pa in, also pleuritic type pain and could not wait for the cath on Fri at [facility] and thus came to [facility] for further evaluation. The patient states that [...] to auscultation anteriorly. PATIENT NAME: CARLEE AGUILAR 202 HEART: Regular rhythm. No murmurs, gallops, or [...] is scheduled for catheterization on Friday at [facility], supposed to be taking premed for her [...] per above. Dictated By: Scooby Ross MD, [facility], FACP WT: HP:NITZA/YOUNG/NOHEMI Conf#: [id number]/DID#: [id number] Authenticated by Scooby Ross MD On 10/26/2018 06:03:04 AM Electronically Signed by Scooby Ross MD on at 0603 PATIENT NAME: CARLEE AGUILAR 2018-10-24 23:15:00-00:00 [facility] ([facility] EMERGENCY PROVIDER REPORT REPORT#:[id number] REPORT STATUS: Signed DATE:10/24/18 TIME: 2314 PATIENT: CARLEE AGUILAR UNIT #: [id number] ROOM/BED: [place] [address] AGE: 48 SEX: F PCP PHYS: No Primary or Family Ph ysician SERVICE AUTHOR: Pam Benitez DO * ALL edits or amendments must be made on the Calvin/computer document * HPI-Chest Pain 40 and Over General Confirmed Patient Yes Initial Greet Date/Time 10/24/18 230 PCP Collin Beasley-PCP Presentation Chief Complaint Chest [...] presents to ED w/ c/o CP 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 Pt states she was laying in bed [...] Pulse Ox 99 10/25 B/P 140/65 10/25 B/P Mean 90 10/25 O2 Delivery Room air 10/25 Temp 37.1 10/25 Pulse 75 10/25 Resp 18 10/25 Review of Vital Signs Reviewed Focused PE General/Const General/Const Awake, Alert, Well developed, Fish Cleaner perative Eyes Eyes EOMI, Conjunctiva NL Resp/Chest [...] PT Patient/Control Mix (9.3 - 12.9 SECONDS) 12 .4 D-Dimer (<=500 ng/mlFEU) 1162 *H Hematology WBC [...] % (Auto) (14.0 - 32.0 %) 27.9 [place] % (Auto) (4.8 - 9.0 %) 6.1 Eos % (Auto) (0.3 - 3.7 %) 3.0 Baso % (Auto) (0.0 - 2.0 %) 0.5 Neut # (Auto) (2.0 - 7.6 x10 3/uL) 3.99 Lymph # (Auto) (1.0 - 3.8 x10 3/uL) 1.78 [place] # (Auto) (0.1 - 0.8 x10 3/uL) [...] disease see n. SL: [JSYED-H] Impression By: [email or web address] Raquel Marquez M.D. Lab Imaging Statement Laboratory radiographic studies reviewed and con sidered in the medical decision-making. Point of Care Testing Pulse Oximetry Pulse Ox % 97 On: Room air Interpretation Interpreted by me, Pulse oximetr y normal Time 2302 ECG #1 Interpretation Date 10/25/18 Time 2308 Interpreted by ED physician NL ECG Interpretation [...] Sodium 105 MG X1ED STA 10/25 0011 DC 10/25 SUBQ 10/25 0012 0029 Enoxaparin Sodium 105 MG X1ED STA 10/25 0000 DC SUBQ 10/25 0001 Central Nervous System Agents Sig/James Start time Last Medication Dose Route Stop Time Status Admin Acetaminophen 650 MG Q4H PRN PRN 10/25 0045 AC PO 11/05 2333 Morphine Sulfate 4 MG Q4H PRN PRN 10/25 0045 AC 10/25 IV 11/05 2333 2118 Morphine Sulfate 4 MG X1ED STA 10/25 0007 DC IV 10/25 0008 0028 Electrolytic, Caloric, And [place] Sig/James Start time Last Medication Dose Route Stop Time Status Admin Sodium Chloride 0 ASDIR PRN 10/24 2315 DC IV 10/25 2215 Gastrointestinal Drugs Sig/James Start time Last Medication Dose Route Stop Time Status Admin Ondansetron HCl 4 MG Q6H PRN PRN 10/25 0045 AC 10/25 IV 11/05 7223 2364 Consultation Consultation Referral/Consult Name Dario Singh MD Pre Billing Clinician Called Cardiology Requested Call Time 003 Requested Call Date 10/25/18 Call Returned Call returned Call Returned Time 32 Call Returned Date 10/25/18 Pre Billing Clinician Will see patient Portions of this section were scribed by Lloyd Christy on 10/25/18 at 0032 Patient Discharge Departure Vital Signs/Condition Vital Signs First Documented: Result Date Time Pulse Ox 97 10/24 2303 B/P 130/70 10/24 2303 B/P Mean 90 10/24 2303 O2 Delivery Room air 10/24 2303 Temp 37.1 10/24 230 Pulse 67 10/24 2303 Resp 18 10/24 2303 Last Documented: Result Date Time Pulse Ox 99 10/25 0000 B/P 140/65 10/25 0000 B/P Mean 90 10/25 0000 O2 Delivery Room air 10/25 0000 Temp 37.1 10/25 0000 Pulse 75 10/25 0000 Resp 18 10/25 0000 All vital [...] Supervising Physician Note Scribe Statement Lloyd Christy, 10/24/18 2316, scribing for and i n the presence of . Signed By: Lloyd Christy, 10/24/186 Provider Scribed Statement I personally performed the s ervices described in this documentation and reviewed the documentation that was dictated to the scrib e(s) in my presence, and it accurately records my words and actions. Eber Benitez, 10/25/18 Portions of this section were scribed by Lloyd Christy on 10/25/18 at 0032 Electronically Signed by Pam Benitez DO on at 2342 [facility] #:[id number] END OF REPORT 2018-01-05 23:03:54-00:00 [facility] Operative Report/Procedure PATIENT NAME: CARLEE AGUILAR PHYSICIAN: Joe Caravlho MD Admitted: MR NUMBER: [id number] DISCHARGED: DATE OF SURGERY: 12/03/2017 SURGEON: Joe Carvalho MD TRANSITIONAL LIVING SPECIALIST: Dr. Cruz SECOND TRANSITIONAL LIVING SPECIALIST:Jorge Eubanks ANESTHESIA: General endotracheal anesthesia. PREOPERATIVE DIAGNOSES: [...] preparation and has been cleared for surgery. [facility] Operative Report/Procedure OPERATION IN DETAIL: After satisfactory [...] lower quadrant along with a 5 mm home care assistant port. The nasal retractor was then placed in the abdomen and left in place. After placing all the ports, we then used the [place] rmonic scalpel to dissect and transect the omentum [...] about 100 cm. We then did a umrt-ea-gbop anastomosis b etween the biliopancreatic and the [...] inserted the Co vidien 60 stapling device [facility] Operative Report/Procedure with the black cartridge. Did [...] condition. MD BERNARDO Lui/LAWSON/JYOTI/ACH TD: 12/04/2017 13:37 [facility] Operative Report/Procedure CC:Joe Carvalho MD Electronically Authenticated and Edited by: Joe Carvalho MD On 01/05/2018 11:03 PM CD T 2018-01-05 09:38:29-00:00 [facility] Consultation PATIENT NAME: CARLEE AGUILAR PHYSICIAN: Eligio Fisher MD Admitted: MR NUMBER: [id number] DISCHARGED: DATE OF CONSULTATION: 12/05/2017 REASON FOR [...] awaiting for radiology interpretation, and [facility] extremity is showing no evidence of de ep venous thrombosis. IMPRESSION: 1. Obstructive sleep apnea. 2. Morbid obesity. 3. Status post gastric bypass surgery. 4. Left shoulder pain. [facility] Consultation PATIENT NAME: CARLEE AGUILAR Catherine PHYSICIAN: Eligio Fisher MD Admitted: MR NUMBER: [id number] DISCHARGED: DATE OF CONSULTATION: 12/05/2017 REASON FOR [...] Left shoulder pain. Patient Name: CARLEE AGUILAR [id number] 5. Shortness of breath, most likely secondary t o surgical procedure and left shoulder pain. PLAN: Continue present treatment. Continue with oxygen to keep saturation above 92 percent. We will follow on V/Q scan results. MD KRYSTIN Blanco/HEM TD: 12/05/2017 18:54 Patient Name: CARLEE AGUILAR [id number] 5. Shortness of breath, most likely secondary t o surgical procedure and left shoulder pain. PLAN: Continue present treatment. Continue with oxygen to keep saturation above 92 percent. We will follow on V/Q scan results. MD KRYSTIN Blanco/HEM TD: 12/05/2017 18:54 Electronically Authenticated by: Eligio Fisher MD On 01/05/2018 09:38 AM C DT 2018-01-05 09:37:42-00:00 [facility] Consultation PATIENT NAME: CARLEE AGUILAR Catherine PHYSICIAN: Eligio Fisher MD Admitted: MR NUMBER: [id number] DISCHARGED: REASON FOR CONSULTATION: Pulmonary evaluation. HISTORY [...] well. Continue present yash hollingsworth, physical therapy, [facility] Consultation PATIENT NAME: CARLEE AGUILAR PHYSICIAN: Eligio Fisher MD Admitted: MR NUMBER: [id number] DISCHARGED: REASON FOR CONSULTATION: Pulmonary evaluation. HISTORY [...] present yash hollingsworth, physical therapy, Patient Name: CARELE AGUILAR [id number] BiPAP at bedtime. MD KRYSTIN Blanco/SHANIQUE TD: 12/05/2017 21:57 Patient Name: CARLEE AGUILAR [id number] BiPAP at bedtime. MD KRYSTIN Blanco/SHANIQUE TD: 12/05/2017 21:57 Electronically Authenticated by: Eligio Fisher MD On 01/05/2018 09:37 AM C DT 2018-01-05 08:33:32-00:00 [facility] History and Physical PATIENT NAME: CARLEE AGUILAR PHYSICIAN: Mikala Vickers MD Admitted: MR NUMBER: [id number] DISCHARGED: 12/27/2017 01: 07:00 ATTENDING PHYSICIAN: Joe Carvalho MD CHIEF COMPLAINT: [...] to palpation, nondisten ded; however, she states [facility] History and Physical PATIENT NAME: FINACARLEE Catherine PHYSICIAN: Mikala Vickers MD Admitted: MR NUMBER: [id number] DISCHARGED: 12/27/2017 01:0 7:00 ATTENDING PHYSICIAN: Joe [...] to palpation, nondisten ded; however, she states [facility] History and Physical PATIENT NAME: FINACARLEE NOVAK PHYSICIAN: Mikala Vickers MD Admitted: MR NUMBER: [id number] DISCHARGED: 12/27/2017 01:0 7:00 ATTENDING PHYSICIAN: Joe [...] however, she states Patient Name: CARLEE AGUILAR [id number] that she is tender, look at around [...] TD: 01/04/2018 11:24 CC:Joe Carvalho MD([employer]) Patient Name: CARLEE AGUILAR Account Number: [id number] that she is tender, look at around [...] MD LNS/TAB//BAL TD: 01/04/2018 11:24 CC:Joe Carvalho MD([employer]) Electronically Authenticated by: Mikala Vickers MD On 01/05/2018 08:33 AM CDT Patient Name: CARLEE AGUILAR [id number] that she is tender, look at around [...] 01/05/2018 11:05 PM CD T 2017-12-29 11:39:38-00:00 [facility] Discharge Summary PATIENT NAME: CARLEE AGUILAR PHYSICIAN: Martin eldridge MD Admitted: MR NUMBER: [id number] DISCHARGED: 12/27/2017 01:0 7:00 ATTENDING: Joe Carvalho [...] to home. FOLLOWUP: P.r.n. with Dr. Carvalho. [facility] Discharge Summary PATIENT NAME: CARLEE AGUILAR PHYSICIAN: Martin eldridge MD Admitted: MR NUMBER: [id number] DISCHARGED: 12/27/2017 01:0 7:00 ATTENDING: Joe Carvalho [...] with Dr. Carvalho. Patient Name: CARLEE AGUILAR [id number] MD Joe Clemente MD OAN/JAMES TD: 12/28/2017 00:01 CC:Joe Carvalho Electronically Authenticated by: Martin Lamas MD On 12/29/2017 11:39 AM CDT Patient Name: CARLEE AGUILAR [id number] MD Joe Clemente MD OAHerson/JAMES TD: 12/28/2017 00:01 CC:Joe Carvalho Electronically Authenticated by: Martin Lamas MD On 12/29/2017 11:39 AM CDT Electronically Authenticated by: Joe Carvalho MD On 01/05/2018 11:04 PM CD T 2017-12-12 12:22:40-00:00 [facility] Discharge Summary PATIENT NAME: CARLEE AGUILAR PHYSICIAN: Mikala Vickers MD Admitted: MR NUMBER: [id number] DISCHARGED: 12/08/2017 11:5 1:00 DATE OF ADMISSION: [...] or discharge comin g from the wound. [facility] Discharge Summary DISPOSITION: She is to be discharged to home. FOLLOWUP: With Dr. Carvalho in 1 week. MD Joe Souza MD LNS/KARAN TD: 12/09/2017 00:41 CC:Joe Carvalho MD Electronically Authenticated by: Mikala Vickers MD On 12/12/2017 12:22 PM CDT Electronically Authenticated and Edited by: Joe Carvalho MD On 01/05/2018 11:04 PM FRACISCO T
[2023-01-30] MEDS ORDERED: HYDROCODONE/APAP 10/325 TAB ONE (21:50)
--- NOTE | 2023-01-30 22:08 | RAD REPORT ---
EXAM DESCRIPTION: USExtremity Venous Uni Ltd01/30/2023 9:39 pm CLINICAL HISTORY: left leg pain COMPARISON: 2018 FINDINGS: Left common femoral, superficial femoral, greater saphenous, popliteal and posterior tibi al veins are compressible and demonstrate augmentation. Doppler demonstrates good flow. A 4 centimeter left Gaspar's cyst Grayscale, color and spectral analysis performed on all vessels IMPRESSION: No evidence of deep venous thrombosis involving the left lower extremity. 4 centimeter left Gaspar's cyst
--- NOTE | 2023-01-30 22:14 | EDPHYS ---
Physician Documentation [facility] Name: Carlee Aguilar Age: 52 yrs Sex: Female : 1970 Arrival Date: 01/30/2023 Time: 19:42 Bed IW1 Private MD: ED Physician Jun German HPI: 01/30 22:11 This 52 yrs old Female presents to ER via Ambulatory with complaints of Leg Pain. kb 22:12 The patient presents with pain, swelling, tenderness. The complaints affect the left kb calf and posterior aspect of left knee. Context: The problem was sustained at home, resulted from an unknown cause, the patient can fully bear weight, the patient is able to ambulate. Onset: The symptoms/episode began/occurred yesterday. Modifying factors: The symptoms are alleviated by nothing. the symptoms are aggravated by nothing. Associated signs and symptoms: Pertinent positives: calf tenderness, swelling, Pertinent negatives fever, nausea, numbness, rash, tingling, vomiting, warmth, weakness. Treatment prior to arrival includes: no previous treatment. Severity of symptoms: At their worst the symptoms were moderate, in the emergency department the symptoms are unchanged. The patient has not experienced similar symptoms in the past. The patient has not recently seen a physician. Historical: - Allergies: 19:56 Demerol; nj1 19:56 IV contrast; nj1 19:56 Latex, Natural Rubber; nj1 19:56 NSAIDS; nj1 19:56 Sulfa (Sulfonamide Antibiotics); nj1 19:56 Toradol; nj1 - PMHx: 19:56 acid reflux; Anxiety; Back pain; Bipolar disorder; chronic constipation; Hypertension; nj1 Hypothyroidism; insomnia; Sleep Apnea; SUICIDE ATTEMPT; - PSHx: 19:56 Bilateral knee replacements; Cholecystectomy; Gastric Bypass; hysterectomy; nj1 - Immunization history:: Client reports receiving the 2nd dose of the Covid vaccine. - Social history:: Smoking status: Patient/guardian denies using tobacco, the patient reports quitting approximately 5 years ago. ROS: 22:11 Constitutional: Negative for fever, chills, and weight loss. kb 22:11 MS/extremity: Positive for pain, swelling, tenderness, of the posterior aspect of left knee and left calf. 22:11 All other systems are negative. Exam: 22:11 Constitutional: This is a well developed, well nourished patient who is awake, alert, kb and in no acute distress. Head/Face: Normocephalic, atraumatic. ENT: Moist Mucous membranes Cardiovascular: Regular rate and rhythm with a normal S1 and S2. No gallops, murmurs, or rubs. No pulse deficits. Respiratory: Respirations even and unlabored. No increased work of breathing. Talking in full sentences Skin: Warm, dry with normal turgor. Normal color. Neuro: Awake and alert, GCS 15, oriented to person, place, time, and situation. Moves all extremities. Normal gait. 22:11 Musculoskeletal/extremity: Extremities: grossly normal except: noted in the left calf and posterior aspect of left knee: pain, swelling, tenderness, ROM: intact in all extremities, Circulation is intact in all extremities. Sensation intact. Weight bearing: able to fully bear weight. Vital Signs: 19:51 BP 143 / 69; Pulse 71; Resp 18; Temp 98.5(O); Pulse Ox 98% ; Weight 96.62 kg; Height 5 nj1 ft. 2 in. ; Pain 7/10; 19:51 Body Mass Index 38.96 (96.62 kg, 157.48 cm) nj1 19:51 Pain Scale: Adult nj1 MDM: 19:49 Patient medically screened. kb 22:11 Differential diagnosis: dvt, bakers cyst, cellulitis. Data reviewed: vital signs, kb nurses notes. Counseling: I had a detailed discussion with the patient and/or guardian regarding: the historical points, exam findings, and any diagnostic results supporting the discharge/admit diagnosis, radiology results, the need for outpatient follow up, a orthopedic surgeon, to return to the emergency department if symptoms worsen or persist or if there are any questions or concerns that arise at home. 01/30 21:05 Order name: Extremity Venous Uni Ltd; Complete Time: 22:11 EDMS Administered Medications: No medications were administered Disposition Summary: 01/30/23 22:13 Discharge Ordered Location: Home kb Condition: Stable kb Diagnosis - Synovial cyst of popliteal space [Gaspar], left knee kb Followup: kb - With: Emergency Department - When: As needed - Reason: Worsening of condition Followup: kb - With: Private Physician - When: 2 - 3 days - Reason: Recheck today's complaints, Continuance of care, Re-evaluation by your physician Discharge Instructions: - Discharge Summary Sheet greyson - Chasity rubi Forms: - Medication Reconciliation Form kb - Thank You Letter kb - Antibiotic Education kb - Prescription Opioid Use kb Signatures: Dispatcher [employer] EDMS Miley Eastman FNP-C FNP-Ckb Ayala, Heidy RN RN ha1 Kayla Christensen RN RN nj1 Corrections: (The following items were deleted from the chart) 21:05 19:53 Extremity Venous Uni Ltd+US.RAD.BRZ ordered. EDMS EDMS
--- NOTE | 2023-01-30 22:14 | ER ---
Nurse's Notes [facility] Name: Carlee Aguilar Age: 52 yrs Sex: Female : 1970 Arrival Date: 01/30/2023 Time: 19:42 Bed IW1 Private MD: Diagnosis: Synovial cyst of popliteal space [Gaspar], left knee Presentation: 01/30 19:51 Chief complaint: Patient states: Left lower leg pain for about a day and a half ago. nj1 Denies injury, hurts to walk. Coronavirus screen: Vaccine status: Patient reports receiving the 2nd dose of the covid vaccine. Ebola Screen: Patient denies travel to an Ebola-affected area in the 21 days before illness onset. Initial Sepsis Screen: Does the patient meet any 2 criteria? No. Patient's initial sepsis screen is negative. Does the patient have a suspected source of infection? No. Patient's initial sepsis screen is negative. Risk Assessment: Do you want to hurt yourself or someone else? Patient reports no desire to harm self or others. Onset of symptoms was January 28, 2023. 19:51 Method Of Arrival: Ambulatory [facility] 19:51 Acuity: JADYN 4 nj Historical: - Allergies: 19:56 Demerol; nj1 19:56 IV contrast; nj1 19:56 Latex, Natural Rubber; nj1 19:56 NSAIDS; nj1 19:56 Sulfa (Sulfonamide Antibiotics); nj1 19:56 Toradol; nj1 - PMHx: 19:56 acid reflux; Anxiety; Back pain; Bipolar disorder; chronic constipation; Hypertension; nj1 Hypothyroidism; insomnia; Sleep Apnea; SUICIDE ATTEMPT; - PSHx: 19:56 Bilateral knee replacements; Cholecystectomy; Gastric Bypass; hysterectomy; nj1 - Immunization history:: Client reports receiving the 2nd dose of the Covid vaccine. - Social history:: Smoking status: Patient/guardian denies using tobacco, the patient reports quitting approximately 5 years ago. Vital Signs: 19:51 BP 143 / 69; Pulse 71; Resp 18; Temp 98.5(O); Pulse Ox 98% ; Weight 96.62 kg; Height 5 nj1 ft. 2 in. ; Pain 7/10; 19:51 Body Mass Index 38.96 (96.62 kg, 157.48 cm) nj1 19:51 Pain Scale: Adult nj1 ED Course: 19:45 Patient arrived in ED. ts1 19:49 Miley Eastman [facility]C [facility] kb 19:49 Jun German MD is Attending Physician. kb 19:56 Triage completed. nj1 19:57 Arm band placed on left wrist. nj1 21:39 Skyler Urbina, RN is Primary Nurse. rv 21:41 Extremity Venous Uni Ltd In Process Unspecified. EDMS Administered Medications: No medications were administered Outcome: 22:00 Eloped from waiting room. pf1 22:00 unknown pf1 22:13 Discharge ordered by . kb 23:19 Patient left the ED. pf1 Signatures: Dispatcher [employer] EDMS Miley Eastman FNP-C ENDOCRINOLOGY SPECIALIST-Ckb Skyler Urbina, RN RN Vida Perez RN RN pf1 Kayla Christensen RN RN nj1 Genoveva Kirk, TIAGO PAS ts1
[2023-01-30 23:38] VITALS: BP 143/69; TEMP 98.5; O2SAT 98
== END 2023-01-30 23:19 | disposition home or self-care (01) ==
LOC: ER 19:42
DX: M71.22 Synovial cyst of popliteal space [Baker], left knee (principal); Z96.653 Presence of artificial knee joint, bilateral; I10 Essential (primary) hypertension; Z88.2 Allergy status to sulfonamides; Z88.5 Allergy status to narcotic agent; Z88.6 Allergy status to analgesic agent; Z91.040 Latex allergy status; Z91.041 Radiographic dye allergy status; Z91.048 Other nonmedicinal substance allergy status
CPT/HCPCS: 93971; 99282

== ENCOUNTER 2023-12-19 16:34 | Emergency (ER) | payer OTHER ==
[2023-12-19 17:04] LABS: Absolute Eosinophils 0.1 K/uL (0-0.5); Absolute Lymphocytes (CBC) 1.6 K/uL (0.7-4.9); Absolute Monocytes 0.4 K/uL (0.1-1.3); Basophils % 0.8 % (0-1.3); Eosinophils % 1.9 % (0-4.4); Hematocrit 33.2 % (36.0-45.0); Hemoglobin 10.5 g/dL (12.0-15.0); Lymphocytes % 31.2 % (15.3-44.8); MCH 26.4 pg (27.0-35.0); MCHC 31.5 g/dL (32.0-36.0); MCV 83.9 fL (80-100); Monocytes % 8.6 % (3.3-12.3); Neutrophils % 57.5 % (41.7-73.7); Platelets 257 thou/uL (152-406); RBC Red Blood Cell Count 3.95 M/uL (3.86-4.86); Red Cell Distribution Width 15.9 % (12.1-15.2)
[2023-12-19 17:15] LABS: Albumin 3.3 g/dL (3.4-5.0); Albumin/Globulin Ratio 0.8 (1.1-1.8); Anion Gap 8.3 mEq/L (5.0-15.0); Bilirubin Total 0.2 mg/dL (0.2-1.0); Potassium 3.3 mEq/L (3.5-5.1); Protein, Total 7.3 g/dL (6.4-8.2)
[2023-12-19] MEDS ORDERED: MORPHINE 4 MG/ML SYR ONE (17:30)
[2023-12-19 17:42] LABS: Sqamous Epithelial <5 /HPF (None Seen); Urine Bacteria None Seen /HPF (<20); Urine Bilirubin NEGATIVE (Negative); Urine Blood Negative (Negative); Urine Clarity Extremely Turbid (Clear); Urine Color Yellow (Yellow); Urine Culture Reflex Order NOT NEEDED; Urine Glucose NEGATIVE (Negative); Urine Ketones NEGATIVE (Negative); Urine Microscopic Reflex YN ORDER UMIC; Urine Mucus Slight /HPF (None Seen); Urine Nitrite NEGATIVE (Negative); Urine Protein TRACE (Negative); Urine RBC <5 /HPF (None Seen); Urine Urobilinogen Normal (Normal); Urine WBC <5 /HPF (<5); Urine pH 5.5 (5.0-7.0)
--- NOTE | 2023-12-19 17:49 | RAD REPORT ---
EXAM DESCRIPTION: CT - Abdomen Pelvis Wo Contrast - 12/19/2023 5:03 pm CLINICAL HISTORY: periumbilical pain;Abd pain COMPARISON: Abdomen Pelvis Wo Contrast dated 08/08/2018; Stone Protocol dated 07/03/2017; Abdomen Pelvis W Contrast dated 07/01/2017; Abdomen Pelvis Wo Contrast dated 03/22/2017 TECHNIQUE: Thin cut axial CT imaging of the abdomen and pelvis was performed without IV contrast. Mu ltiplanar reformats were generated and reviewed. All CT scans are performed using dose optimization technique as appropriate and may include automated exposure control or mA/KV adjustment according to patient size. FINDINGS: No suspicious findings in the lung bases. The liver, spleen, adrenal glands, and pancreas show no suspicious findings. Gallbladder and biliary tree are also without suspicious finding. Symmetric renal contour, without suspicious parenchymal findings within limits of noncontrast techniq ue. No evidence of radiopaque calculi or hydroureteronephrosis. Sequelae of Heather-en-Y gastric bypass. No dilated bowel loops or bowel wall thickening. No free air, f ree fluid or inflammatory stranding. No hernia, mass or bulky lymphadenopathy. The urinary bladder is without significant finding. No suspicious bony findings. IMPRESSION: No acute intra-abdominal process.
--- NOTE | 2023-12-19 17:58 | ER ---
Nurse's Notes [facility] Name: Carlee Aguilar Age: 53 yrs Sex: Female : 1970 Arrival Date: 12/19/2023 Time: 16:34 Bed 20 Private MD: Diagnosis: Abdominal pain, unspecified Presentation: 12/18 16:41 Chief complaint: Patient states: ABD PAIN NAUSEA. STATES "I THINK I HAVE A HERNIA" db UMBILICAL AREA HURTING. X 4 DAYS. Coronavirus screen: Vaccine status: Patient reports receiving the 2nd dose of the covid vaccine. Client denies travel out of the [place] in the last 14 days. At this time, the client does not indicate any symptoms associated with coronavirus-19. Ebola Screen: Patient negative for fever greater than or equal to 101.5 degrees Fahrenheit, and additional compatible Ebola Virus Disease symptoms Patient denies exposure to infectious person. Patient denies travel to an Ebola-affected area in the 21 days before illness onset. No symptoms or risks identified at this time. Initial Sepsis Screen: Does the patient meet any 2 criteria? No. Patient's initial sepsis screen is negative. Does the patient have a suspected source of infection? No. Patient's initial sepsis screen is negative. Risk Assessment: Do you want to hurt yourself or someone else? Patient reports no desire to harm self or others. Onset of symptoms was December 15, 2023. 16:41 Method Of Arrival: Ambulatory db 16:41 Acuity: JADYN 3 db Triage Assessment: 16:42 General: Appears in no apparent distress. uncomfortable, Behavior is calm, cooperative. db Pain: Complains of pain in abdomen. Neuro: Level of Consciousness is awake, alert, obeys commands, Oriented to person, place, time, situation. Cardiovascular: No deficits noted. Respiratory: Airway is patent Respiratory effort is even, unlabored, Respiratory pattern is regular, symmetrical. GI: Abdomen is non-distended, Reports nausea, Patient currently denies vomiting. 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 - Infectious Disease History:: Denies. - Social history:: Smoking status: Patient/guardian denies using tobacco, the patient reports quitting approximately 8 years ago. - Family history:: not pertinent. - Hospitalizations: : No recent hospitalization is reported. Screenin:25 [facility] ED Fall Risk Assessment (Adult) History of falling in the last 3 months, me1 including since admission No falls in past 3 months (0 pts) Confusion or Disorientation No (0 pts) Intoxicated or Sedated No (0 pts) Impaired Gait No (0 pts) Mobility Assist Device Used No (0 pt) Altered Elimination No (0 pt) Score/Fall Risk Level 0 - 2 = Low Risk Maintained a safe environment, Provided non-skid footwear, Hourly rounding (assess needs \\T\\ fall precautionary measures) done. Abuse screen: Denies threats or abuse. Nutritional screening: No deficits noted. Tuberculosis screening: No symptoms or risk factors identified. Assessment: 17:25 General: Appears uncomfortable, obese, well developed, well nourished, Behavior is me1 calm, cooperative, appropriate for age, Reports pain 7/10 near umbilicus that has been hurting for about 4 days. c/o nausea without vomiting. Pain: Complains of pain in abdomen Pain does not radiate. Pain currently is 7 out of 10 on a pain scale. Quality of pain is described as sharp, Pain began 4 days ago Is continuous. Neuro: Level of Consciousness is awake, alert, obeys commands, Oriented to person, place, time, situation, Appropriate for age. Cardiovascular: Capillary refill < 3 seconds Patient's skin is warm and dry. Respiratory: Airway is patent Respiratory effort is even, unlabored, Respiratory pattern is regular, symmetrical. GI: Abdomen is round non-distended, Bowel sounds present X 4 quads. Abd is soft X 4 quads Reports upper abdominal pain, nausea. : No signs and/or symptoms were reported regarding the genitourinary system. Derm: Skin is intact, is healthy with good turgor, Skin is pink, warm \\T\\ dry. Musculoskeletal: No signs and/or symptoms reported regarding the musculoskeletal system. Vital Signs: 16:41 BP 153 / 85; Pulse 78; Resp 16; Temp 98.8; Pulse Ox 100% ; Weight 97.52 kg; Height 5 db ft. 2 in. ; Pain 7/10; 17:15 BP 155 / 65; Pulse 69; Resp 16; Pulse Ox 97% on R/A; me1 17:45 BP 119 / 55; Pulse 66; Resp 16; Pulse Ox 97% on R/A; me1 17:49 Pain 5/10; me1 16:41 Body Mass Index 39.32 (97.52 kg, 157.48 cm) db 16:41 Pain Scale: Adult db 17:49 Pain Scale: Adult me1 ED Course: 16:36 Patient arrived in ED. im 16:42 Luis Angel Hernandez MD is Attending Physician. rn 16:42 Triage completed. db 16:42 Arm band placed on Patient placed in waiting room. db 16:50 Initial lab(s) drawn, by me, sent to lab. db 17:00 Inserted saline lock: 22 gauge in right forearm, using aseptic technique. Blood db collected. 17:05 CT Abd/Pelvis - Without Contrast In Process Unspecified. EDMS 17:15 Urinalysis w/ reflexes Sent. db 17:18 Kimberly Cole, RN is Primary Nurse. me1 17:25 Patient has correct armband on for positive identification. Bed in low position. Call me1 light in reach. Side rails up X2. Provided Education on: POC. Verbalized understanding. . 17:25 No provider procedures requiring assistance completed. me1 18:35 IV discontinued, intact, bleeding controlled, No redness/swelling at site. Pressure me1 dressing applied. Administered Medications: 17:33 Drug: morphine IVP or IV 4 mg IVP once over 4 mins Route: IVP; Infused Over: 4 mins; me1 Site: right forearm; 17:49 Follow up: Pain 5/10 Adult; Response: No adverse reaction; Pain is decreased me1 Medication: 17:25 VIS not applicable for this client. me1 Outcome: 17:58 Discharge ordered by . rn 18:35 Discharged to home ambulatory, with family, me1 18:35 Condition: stable 18:35 Discharge instructions given to patient, family, Instructed on discharge instructions, follow up and referral plans. Demonstrated understanding of instructions, follow-up care, 18:35 Patient left the ED. me1 Signatures: Dispatcher [employer] Lusi Angel Milan MD MD rn Benton, Danielle, RN RN db Mendoza, Itzel im Eddleman, Michelle, RN RN me1 Corrections: (The following items were deleted from the chart) 16:42 16:41 Onset of symptoms was December 19, 2023 antoinette curry
--- NOTE | 2023-12-19 17:58 | EDPHYS ---
Physician Documentation [facility] Name: Carlee Aguilar Age: 53 yrs Sex: Female : 1970 Arrival Date: 12/19/2023 Time: 16:34 Bed 20 Private MD: ED Physician Luis Angel Hernandez HPI: 12/18 17:55 This 53 yrs old Female presents to ER via Ambulatory with complaints of Abdominal Pain, rn Nausea. 17:55 The patient presents to the emergency department with nausea, vomiting, abdominal pain. rn 17:56 Onset: The symptoms/episode began/occurred 4 day(s) ago. Possible causes: unknown. The rn symptoms are aggravated by nothing. The symptoms are alleviated by nothing. Severity of symptoms: At their worst the symptoms were moderate in the emergency department the symptoms are unchanged. The patient has experienced similar episodes in the past. Patient reports mid periumbilical abdominal pain for 4 days. Positive for nausea but no vomiting. No fever. No blood in stool.. 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 - Infectious Disease History:: Denies. - Social history:: Smoking status: Patient/guardian denies using tobacco, the patient reports quitting approximately 8 years ago. - Family history:: not pertinent. - Hospitalizations: : No recent hospitalization is reported. ROS: 17:56 Constitutional: Negative for fever, chills, and weight loss, Neck: Negative for injury, rn pain, and swelling, Cardiovascular: Negative for chest pain, palpitations, and edema, Respiratory: Negative for shortness of breath, cough, wheezing, and pleuritic chest pain, Abdomen/GI: Positive for abdominal pain and nausea Back: Negative for injury and pain, MS/Extremity: Negative for injury and deformity, Skin: Negative for injury, rash, and discoloration, Neuro: Negative for headache, weakness, numbness, tingling, and seizure, Exam: 17:56 Constitutional: This is a well developed, well nourished patient who is awake, alert, rn and in no acute distress. Head/Face: Normocephalic, atraumatic. Cardiovascular: Regular rate and rhythm. No pulse deficits. Respiratory: No increased work of breathing, no retractions or nasal flaring. Abdomen/GI: Soft, mild periumbilical tenderness. No rebound or masses Vital Signs: 16:41 BP 153 / 85; Pulse 78; Resp 16; Temp 98.8; Pulse Ox 100% ; Weight 97.52 kg; Height 5 db ft. 2 in. ; Pain 7/10; 17:15 BP 155 / 65; Pulse 69; Resp 16; Pulse Ox 97% on R/A; me1 17:45 BP 119 / 55; Pulse 66; Resp 16; Pulse Ox 97% on R/A; me1 17:49 Pain 5/10; me1 16:41 Body Mass Index 39.32 (97.52 kg, 157.48 cm) db 16:41 Pain Scale: Adult db 17:49 Pain Scale: Adult me1 MDM: 16:42 Patient medically screened. rn 17:56 Differential diagnosis: Nonspecific abd pain, gastritis, appendicitis, diverticulitis, rn viral gastroenteritis, gastroenteritis. Differential diagnosis: Umbilical hernia, and internal hernia. Data reviewed: vital signs, nurses notes. Counseling: I had a detailed discussion with the patient and/or guardian regarding the historical points, exam findings, and any diagnostic results supporting the discharge/admit diagnosis, lab results, radiology results, the need for outpatient follow up, to return to the emergency department if symptoms worsen or persist or if there are any questions or concerns that arise at home. Special discussion: Based on the patient's Hx, exam, and Dx evaluation, there is no indication for emergent surgery or inpatient Tx. It is understood by the patient/guardian that if the Sx's persist or worsen they need to return immediately for re-evaluation. I discussed with the patient/guardian in detail that at this point there is no indication for admission to the hospital. It is understood, however, that if the symptoms persist or worsen the patient needs to return immediately for re-evaluation. 12/18 16:42 Order name: CBC with Diff; Complete Time: 17:28 rn 12/18 16:42 Order name: CMP; Complete Time: 17:28 rn 12/18 16:42 Order name: Lipase; Complete Time: 17:28 rn 12/18 16:42 Order name: Urinalysis w/ reflexes; Complete Time: 17:48 rn 12/18 16:48 Order name: CT Abd/Pelvis - Without Contrast; Complete Time: 17:51 rn 12/18 16:42 Order name: IV Saline Lock; Complete Time: 17:00 rn 12/18 16:42 Order name: Labs collected and sent; Complete Time: 17:00 rn Administered Medications: 17:33 Drug: morphine IVP or IV 4 mg IVP once over 4 mins Route: IVP; Infused Over: 4 mins; me1 Site: right forearm; 17:49 Follow up: Pain 5/10 Adult; Response: No adverse reaction; Pain is decreased me1 Disposition Summary: 12/19/23 17:58 Discharge Ordered Notes: Location: Home rn Problem: new rn Symptoms: have improved rn Condition: Stable rn Diagnosis - Abdominal pain, unspecified rn Followup: rn - With: Private Physician - When: As needed - Reason: Recheck today's complaints, Re-evaluation by your physician Discharge Instructions: - Discharge Summary Sheet rn - Abdominal Pain, Adult rn Forms: - Medication Reconciliation Form rn - Thank You Letter rn - Antibiotic corn popper - Prescription Opioid Use rn - Patient Portal Instructions rn - Leadership Thank You Letter rn Signatures: Dispatcher [employer] Luis Angel Milan MD MD rn Benton, Danielle, RN RN db Eddleman, Michelle, RN RN me1 Corrections: (The following items were deleted from the chart) 16:49 16:49 Abdomen Pelvis Wo Con+CT.RAD.BRZ ordered. EDMS ED
[2023-12-19 21:40] VITALS: BP 119/55; TEMP 98.8; O2SAT 97
== END 2023-12-19 18:35 | disposition home or self-care (01) ==
LOC: ER 16:34
DX: R10.9 Unspecified abdominal pain (principal); R11.0 Nausea; Z88.2 Allergy status to sulfonamides; Z88.5 Allergy status to narcotic agent; Z88.6 Allergy status to analgesic agent; Z91.041 Radiographic dye allergy status
CPT/HCPCS: 36415; 74176; 80053; 81001; 83690; 85025; 96374; 99284

== ENCOUNTER 2024-11-28 11:50 | Emergency (ER) | payer OTHER ==
[2024-11-28 12:22] LABS: Absolute Eosinophils 0.1 K/uL (0-0.5); Absolute Lymphocytes (CBC) 1.7 K/uL (0.7-4.9); Absolute Monocytes 0.3 K/uL (0.1-1.3); Absolute Neutrophil 3.2 K/uL (1.8-8.0); Basophils % 0.8 % (0-1.3); Eosinophils % 2.6 % (0-4.4); Hematocrit 41.8 % (36.0-45.0); Lymphocytes % 31.8 % (15.3-44.8); MCH 29.7 pg (27.0-35.0); MCHC 33.4 g/dL (32.0-36.0); MCV 88.8 fL (80-100); MPV 9.2 fL (7.6-11.3); Monocytes % 5.9 % (3.3-12.3); Neutrophils % 58.9 % (41.7-73.7); Nucleated Red Blood Cells % 0.1 % (0-0); Platelets 221 thou/uL (152-406); RBC Red Blood Cell Count 4.71 M/uL (3.86-4.86); Red Cell Distribution Width 13.4 % (12.1-15.2)
[2024-11-28 12:30] LABS: PT Prothrombin Time 11.5 SECONDS (10-13.0); Protime INR 1.01
[2024-11-28 12:43] LABS: ALT/SGPT 32 U/L (13-56); AST/SGOT 19 U/L (15-37); Albumin 3.5 g/dL (3.4-5.0); Albumin/Globulin Ratio 0.9 (1.1-1.8); Alkaline Phosphatase 127 U/L (45-117); Anion Gap 8.2 mEq/L (5.0-15.0); BUN Blood Urea Nitrogen 12 mg/dL (7-18); Bicarbonate 28 mEq/L (21-32); Bilirubin Total 0.5 mg/dL (0.2-1.0); Globulin 3.9 g/dL (2.3-3.5); Glomerular Filtration Rate 83 ml/min (=/>90); Glucose Level 89 mg/dL (74-106); NT PRO-BNP 68 pg/mL (<125); Potassium 4.2 mEq/L (3.5-5.1); Protein, Total 7.4 g/dL (6.4-8.2); Sodium Level 139 mEq/L (136-145); Troponin High Sensitivity 5.5 pg/mL (<58.9)
[2024-11-28 12:44] LABS: Bilirubin Direct < 0.2 mg/dL (0-0.2); Bilirubin Indirect, Calculated 0.3 mg/dL (0.2-0.8)
--- NOTE | 2024-11-28 13:17 | ER ---
Nurse's Notes [facility] Name: Carlee Aguilar Age: 54 yrs Sex: Female : 1970 Arrival Date: 11/28/2024 Time: 11:50 Bed 6 Private MD: Diagnosis: Shoulder pain Presentation: 11/28 12:02 Chief complaint: left sided abdominal pain that radiates to chest and neck + SOB since hb this morning. Coronavirus screen: At this time, the client does not indicate any symptoms associated with coronavirus-19. Ebola Screen: No symptoms or risks identified at this time. Initial Sepsis Screen: Does the patient meet any 2 criteria? No. Patient's initial sepsis screen is negative. Does the patient have a suspected source of infection? No. Patient's initial sepsis screen is negative. Risk Assessment: Do you want to hurt yourself or someone else? Patient reports no desire to harm self or others. Onset of symptoms was November 28, 2024. 12:02 Method Of Arrival: Ambulatory hb 12:02 Acuity: JADYN 3 hb Triage Assessment: 12:15 Respiratory: Reports shortness of breath at rest Onset: The symptoms/episode le1 began/occurred this morning, the patient has mild shortness of breath. 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 - Infectious Disease History:: Denies. - Social history:: Smoking status: Patient/guardian denies using tobacco. Screenin:[facility] ED Fall Risk Assessment (Adult) History of falling in the last 3 months, le1 including since admission No falls in past 3 months (0 pts) Confusion or Disorientation No (0 pts) Intoxicated or Sedated No (0 pts) Impaired Gait No (0 pts) Mobility Assist Device Used No (0 pt) Altered Elimination No (0 pt) Score/Fall Risk Level 0 - 2 = Low Risk Oriented to surroundings, Maintained a safe environment, Educated pt \T\ family on fall prevention, incl call for assistance when getting out of bed, Assessed \T\ reinforced patient's understanding of fall precautions, Hourly rounding (assess needs \T\ fall precautionary measures) done, Used ambulatory aids as needed (educated on \T\ assisted with). Abuse screen: Denies threats or abuse. Denies injuries from another. Nutritional screening: No deficits noted. Tuberculosis screening: No symptoms or risk factors identified. Assessment: 12:12 General: Appears in no apparent distress. uncomfortable, Behavior is calm, cooperative, le1 appropriate for age. Pain: Complains of pain in left supraclavicular area, left clavicle, anterior aspect of left upper chest, xiphoid area, mid-sternal area and left breast Pain currently is 10 out of 10 on a pain scale. Quality of pain is described as aching. Neuro: No deficits noted. Cardiovascular: No deficits noted. Rhythm is sinus rhythm. Respiratory: No deficits noted. Airway is patent Trachea midline Respiratory effort is even, unlabored, Respiratory pattern is regular, Breath sounds are clear bilaterally. GI: No deficits noted. : No deficits noted. EENT: No deficits noted. Derm: No deficits noted. Musculoskeletal: No deficits noted. Vital Signs: 12:02 BP 164 / 84; Pulse 61; Resp 18; Temp 98.3; Pulse Ox 100% ; Weight 99.34 kg; Height 5 hb ft. 2 in. ; Pain 8/10; 13:26 BP 195 / 92; Pulse 58; Resp 20; Temp 98.3(O); Pulse Ox 96% on R/A; Pain 10/10; le1 12:02 Body Mass Index 40.06 (99.34 kg, 157.48 cm) hb 12:02 Pain Scale: Adult hb 13:26 Pain Scale: Adult le1 ED Course: 11:52 Patient arrived in ED. im 12:01 Yu Tijerina RN is Primary Nurse. le1 12:01 Tanner Arango MD is Attending Physician. sp3 12:03 Triage completed. hb 12:04 Arm band placed on. hb 12:13 Patient has correct armband on for positive identification. Bed in low position. Call le1 light in reach. Side rails up X2. Adult w/ patient. Provided Education on: Informed to use call light if needed.. 12:14 Initial lab(s) drawn, by me, sent to lab. EKG done, by ED staff, reviewed by Tanner Arango MD. Inserted saline lock: 20 gauge in right wrist, using aseptic technique. Blood collected. Flushed with 10 mL NS. 12:30 Notified ED physician of other Patient requesting pain medications. Provider stated he le1 will give her pain medication if there is something positive on her findings. 13:22 XRAY Chest (1 view) In Process Unspecified. EDMS 13:27 No provider procedures requiring assistance completed. IV discontinued, intact, le1 bleeding controlled, No redness/swelling at site. Pressure dressing applied. Administered Medications: No medications were administered Medication: 13:27 VIS not applicable for this client. le1 Outcome: 13:16 Discharge ordered by . carmelita 13:27 Discharged to home ambulatory, le1 13:27 Condition: unchanged 13:27 Discharge instructions given to patient, family, Instructed on discharge instructions, follow up and referral plans. medication usage, Demonstrated understanding of instructions, follow-up care, medications, Prescriptions given X 1, Patient threw prescription away. 13:28 Patient left the ED. le1 Signatures: Dispatcher [employer] EDMS Kassi Horton, RN RN Tanner Hoyos MD MD sp3 Maddie Arana LaKendric RN RN le1
--- NOTE | 2024-11-28 13:17 | EDPHYS ---
Physician Documentation [facility] Name: Carlee Aguilar Age: 54 yrs Sex: Female : 1970 Arrival Date: 11/28/2024 Time: 11:50 Bed 6 Private MD: ED Physician Tanner Arango HPI: 11/28 12:44 This 54 yrs old Female presents to ER via Ambulatory with complaints of Shortness Of sp3 Breath, Jaw Pain, Neck Pain, >24Hrs Old, Arm Pain. 12:44 54-year-old female history of bipolar disease, hyperlipidemia, peripheral neuropathy, sp3 status post gastric bypass in 2016 presents to the ED with chief complaint left-sided chest pain extending into the left shoulder and left jaw off and on for the last 2 days. She denies any shortness of breath, fever, back pain, abdominal pain, syncope, near syncope, known sick contacts, travel history, prolonged immobilization, or any other signs or symptoms on ROS at this time. Pain is described as waxing and waning and sharp in nature.. 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 - Infectious Disease History:: Denies. - Social history:: Smoking status: Patient/guardian denies using tobacco. ROS: 12:45 Constitutional: Negative for fever, chills, and weight loss, Eyes: Negative for injury, sp3 pain, redness, and discharge, ENT: Negative for injury, pain, and discharge, Cardiovascular: Negative for chest pain, palpitations, and edema, Abdomen/GI: Negative for abdominal pain, nausea, vomiting, diarrhea, and constipation, Back: Negative for injury and pain, MS/Extremity: Negative for injury and deformity, Skin: Negative for injury, rash, and discoloration, Neuro: Negative for headache, weakness, numbness, tingling, and seizure, Psych: Negative for depression, anxiety, suicide ideation, homicidal ideation, and hallucinations, Allergy/Immunology: Negative for hives, rash, and allergies, Endocrine: Negative for neck swelling, polydipsia, polyuria, polyphagia, and marked weight changes, 12:45 All other systems are negative, Exam: 12:45 Constitutional: This is a well developed, well nourished patient who is awake, alert, sp3 and in no acute distress. Head/Face: Normocephalic, atraumatic. Eyes: Pupils equal round and reactive to light, extra-ocular motions intact. Lids and lashes normal. Conjunctiva and sclera are non-icteric and not injected. Cornea within normal limits. Periorbital areas with no swelling, redness, or edema. ENT: Nares patent. No nasal discharge, no septal abnormalities noted. External auditory canals are clear. Oropharynx with no redness, swelling, or masses, exudates, or evidence of obstruction, uvula midline. Mucous membranes moist. Neck: Trachea midline, no thyromegaly or masses palpated, and no cervical lymphadenopathy. Supple, full range of motion without nuchal rigidity, or vertebral point tenderness. No Meningismus. Chest/axilla: Normal chest wall appearance and motion. Nontender with no deformity. No lesions are appreciated. Cardiovascular: Regular rate and rhythm with a normal S1 and S2. No gallops, murmurs, or rubs. Normal PMI, no JVD. No pulse deficits. Respiratory: Lungs have equal breath sounds bilaterally, clear to auscultation and percussion. No rales, rhonchi or wheezes noted. No increased work of breathing, no retractions or nasal flaring. Abdomen/GI: Soft, non-tender, with normal bowel sounds. No distension or tympany. No guarding or rebound. No evidence of tenderness throughout. Back: No spinal tenderness. No costovertebral tenderness. Full range of motion. Skin: Warm, dry with normal turgor. Normal color with no rashes, no lesions, and no evidence of cellulitis. MS/ Extremity: Pulses equal, no cyanosis. Neurovascular intact. Full, normal range of motion. Neuro: Awake and alert, GCS 15, oriented to person, place, time, and situation. Cranial nerves II-XII grossly intact. Motor strength 5/5 in all extremities. Sensory grossly intact. Cerebellar exam normal. Normal gait. Psych: Awake, alert, with orientation to person, place and time. Behavior, mood, and affect are within normal limits. 12:45 ECG was reviewed by the Attending Physician. EKG demonstrates normal sinus rhythm at 71 bpm with normal intervals, normal QRS, normal axis and normal ST/T-segment's without evidence of acute ischemia. Normal EKG. Vital Signs: 12:02 BP 164 / 84; Pulse 61; Resp 18; Temp 98.3; Pulse Ox 100% ; Weight 99.34 kg; Height 5 hb ft. 2 in. ; Pain 8/10; 13:26 BP 195 / 92; Pulse 58; Resp 20; Temp 98.3(O); Pulse Ox 96% on R/A; Pain 10/10; le1 12:02 Body Mass Index 40.06 (99.34 kg, 157.48 cm) hb 12:02 Pain Scale: Adult hb 13:26 Pain Scale: Adult le1 MDM: 12:02 Medical Screening Exam initiated sp3 12:46 Data reviewed: vital signs, nurses notes, old medical records, lab test result(s), EKG, sp3 radiologic studies. ED course: 54-year-old female with PMH above now with chest and shoulder and jaw pain. Differential diagnosis includes musculoskeletal pain, referred pain, chronic pain, and to lesser degree acute coronary syndrome. EKG is normal. Workup includes chest x-ray, general labs and general supportive care. Troponin is negative. In the setting of multiple days of symptoms and normal EKG and negative troponin, I do not believe patient has acute coronary syndrome at this time. Remainder of labs are also normal.. 11/28 12:03 Order name: Basic Metabolic Panel; Complete Time: 12:46 sp3 11/28 12:03 Order name: CBC with Diff; Complete Time: 12:46 sp3 11/28 12:03 Order name: LFT's; Complete Time: 12:46 sp3 11/28 12:03 Order name: Magnesium; Complete Time: 12:46 sp3 11/28 12:03 Order name: NT PRO-BNP; Complete Time: 12:46 sp3 11/28 12:03 Order name: PT-INR; Complete Time: 12:46 sp3 11/28 12:03 Order name: Troponin HS; Complete Time: 12:46 sp3 11/28 12:03 Order name: XRAY Chest (1 view) sp3 11/28 12:03 Order name: Cardiac monitoring; Complete Time: 12:11 sp3 11/28 12:03 Order name: EKG - Nurse/Tech; Complete Time: 12:11 sp3 11/28 12:03 Order name: IV Saline Lock; Complete Time: 12:11 sp3 11/28 12:03 Order name: Labs collected and sent; Complete Time: 12:12 sp3 11/28 12:03 Order name: O2 Per Protocol; Complete Time: 12:12 sp3 11/28 12:03 Order name: O2 Sat Monitoring; Complete Time: 12:12 sp3 Administered Medications: No medications were administered Disposition Summary: 11/28/24 13:16 Discharge Ordered Notes: Location: Home sp3 Condition: Stable sp3 Diagnosis - Shoulder pain sp3 Followup: sp3 - With: Private Physician - When: Upon discharge from the Emergency Department - Reason: Continuance of care Discharge Instructions: - Discharge Summary Sheet sp3 - Nonspecific Chest Pain, Adult sp3 Forms: - Medication Reconciliation Form sp3 - Antibiotic Education sp3 - Prescription Opioid Use sp3 - Patient Portal Instructions sp3 - Leadership Thank You Letter sp3 Prescriptions: - Tramadol 50 mg Oral Tablet - take 1 tablet ORAL route every 8 hours as needed; 12 tablet; Refills: 0, sp3 Product Selection Permitted Signatures: Dispatcher [employer] EDMS Kassi Horton RN RN hb Patel, Setul, MD MD sp3 Corrections: (The following items were deleted from the chart) 12:03 12:03 BASIC METABOLIC PANEL+C.LAB.BRZ ordered. EDMS EDMS 12:03 12:03 CBC+H.LAB.BRZ ordered. EDMS EDMS 12:03 12:03 HEPATIC FUNCTION+C.LAB.BRZ ordered. EDMS EDMS 12:03 12:03 MAGNESIUM+C.LAB.BRZ ordered. EDMS EDMS 12:03 12:03 PROBNP+C.LAB.BRZ ordered. EDMS EDMS 12:03 12:03 PROTIME (+INR)+COAG.LAB.BRZ ordered. EDMS EDMS 12:03 12:03 Troponin High Sensitivity+C.LAB.BRZ ordered. EDMS EDMS 12: 12:03 Chest Single View+RAD.RAD.BRZ ordered. EDMS EDMS
[2024-11-28 13:33] VITALS: TEMP 98.3
[2024-11-28 13:34] VITALS: BP 195/92; O2SAT 96
--- NOTE | 2024-11-28 14:37 | RAD REPORT ---
EXAMINATION: ONE VIEW CHEST XR CLINICAL INDICATION: Female, 54 years old.,DYSPNEA TECHNIQUE: Frontal chest projection is submitted. Examination is limited by patient positioning and t echnique. COMPARISON: 01/25/2023 FINDINGS: The lungs are grossly clear although suboptimal inspiratory effort somewhat limits evaluation. No pn eumothorax or sizable effusion. The heart is normal in size. Mediastinal contours are unremarkable. IMPRESSION: No acute intrathoracic abnormalities.
--- NOTE | 2024-11-29 12:02 | EKG ---
Test Date: 2024-11-28 Test Time: 12:02:30 [facility] Medical Biller: ALBERTO MEASUREMENT RESULTS: Intervals: Rate: 71 MD: 154 QRSD: 100 QT: 404 QTc: 439 Dwight: P: 43 MD: 154 QRS: 29 T: 33 INTERPRETIVE STATEMENTS: Normal sinus rhythm Normal ECG Compared to ECG 01/25/2023 01:03:04 Myocardial infarct finding no longer present Electronically Signed On 11-29-24 11:59:41 CDT by Rafi Smith
== END 2024-11-28 13:28 | disposition home or self-care (01) ==
LOC: ER 11:50
DX: M25.512 Pain in left shoulder (principal); R07.9 Chest pain, unspecified; R68.84 Jaw pain; I10 Essential (primary) hypertension; E78.00 Pure hypercholesterolemia, unspecified
CPT/HCPCS: 36415; 71045; 80048; 80076; 83735; 83880; 84484; 85025; 85610; 93005; 99284